=== PATIENT | male | born 1940 | race Caucasian/White ===

== ENCOUNTER 2017-08-27 03:04 | Inpatient (IN) | payer MEDICARE, OTHER ==
[~2017-08-27] VITALS: Ht 180.3 cm; Wt 75.4 kg
[~2017-08-27 03:04] MED LIST: AMLODIPINE BESYL5 MG PO; ASPIR-TRIN325 MG PO; CHLORTHALIDONE25 MG PO; FLOMAX0.4 MG PO; LIPITOR80 MG GT; LISINOPRIL40 MG PO; MELOXICAM15 MG PO; METOPROLOL TART50 MG PO; NORVASC10 MG PO; PERCOCET 7.5-31 EACH PO; PRILOSEC OTC20 MG PO; SIMVASTATIN80 MG PO
[2017-08-27] MEDS ORDERED: LISINOPRIL20 MG PO (03:48)
[2017-08-27] MEDS ORDERED: PRAVASTATIN SOD40 MG PO (03:50)
[2017-08-27] MEDS ORDERED: REGLAN10 MG PO (03:52)
[2017-08-27] MEDS ORDERED: ESCITALOPRAM OX10 MG PO (03:57)
[2017-08-27] MEDS ORDERED: ASPIR-LOW81 MG PO (04:03)
--- NOTE | 2017-08-27 05:53 | EKG ---
[facility] [address] [facility] [place], [place] [address] Signed Sinus tachycardia with frequent premature ventricular complexes ST \T\ T wave abnormality, consider lateral ischemia Abnormal ECG No previous ECGs available Confirmed by BLAIR ALFONSO MD ([id number]) on 08/27/2017 5:53:39 AM Electronically Signed By: BLAIR ALFONSO MD 08/27/17 0553 PATIENT NAME: NAN MEREDITH Electrocardiogram DATE OF : 44 PHYSICIAN: BLAIR ALFONSO MD REPORT #: [id number] REPORT IS CONFIDENTIAL AND NOT TO BE RELEASED WITHOUT AUTHORIZATION
--- NOTE | 2017-08-27 06:37 | NUR ---
Pt arrived to room 128 at 0620. PT INC STOOL. LINENS CHANGED. FAMILY AT BEDSIDE. PT AWAKENS, [place], HOWEVER LETHARGIC AND DROWSY, WEAK. DENIES PAIN. FAMILY REPORTS RECENT FALL APPROXIMATELY 2 WEEKS AGO. HAD COUGH. PT REPORTED TO HAVE FALLEN ON R RIBS. TO PROVIDE PT HISTORY. IV STARTED 20G RH, IV VANCO INFUSING IN LAC IV, NS STARTED IN RH IV AT 150ML/HR. PT PLACED ON 2L O2 FOR SPO2 AT 90%. HR 130'S ON ARRIVAL, NOW 117, TEMP 102.6 AXILLARY. PT VOIDED 100ML TO URINAL.
--- NOTE | 2017-08-27 07:10 | NUR ---
BEDSIDE REPORT RECIEVED.
--- NOTE | 2017-08-27 07:11 | NUR ---
RAZO CATHETER WITH TEMP PROBE PLACED AT 0650, LEVOPHED GTT STARTED AT 2MCG/MIN. INTO LAC. PT DOWN TO CT NOW WITH NSG STAFF.
--- NOTE | 2017-08-27 07:15 | NUR ---
TO CT VIA BED ACCOMP BY CHAO AND RN.
--- NOTE | 2017-08-27 07:30 | NUR ---
RETURN TO ROOM 128. TOL[address] CT WELL. CONT TO C/O CHILLING. RAZO TEMP PROBE-101.7. DAUGHTER AND IN ROOM.
--- NOTE | 2017-08-27 08:30 | NUR ---
INCONT OF STOOL. ATTENDS CHANGED. IS SLEEPY BUT COOPERATIVE. TEMP-102.6. REMAINS ON LEVOPHED AT 2 MCG/MIN.
--- NOTE | 2017-08-27 09:20 | NUR ---
CENTRAL LINE PERMIT SIGNED BY . DR. MENJIVAR HERE TO PLACE LINE.
--- NOTE | 2017-08-27 09:50 | NUR ---
TYLENOL 650 MG PO GIVEN FOR FEVER.
--- NOTE | 2017-08-27 10:13 | NUR ---
ASSISTED NURSE IN BOOSTING PATIENT UP IN BED USING DRAWSHEET
--- NOTE | 2017-08-27 12:34 | NUR ---
MACHINE ADJUSTER HERE TO DO US OF ABD. LEVOPHED GTT INCREASED TO 3 MCG/MIN BP-88/49.
--- NOTE | 2017-08-27 13:00 | NUR ---
US COMPLETE. IS DROWSY, DOES RESPOND APPROP. FAMILY IN ROOM.
--- NOTE | 2017-08-27 14:00 | NUR ---
SEE MONITOR PRINT OUT SHEET FOR Q 15 MIN V.S.
--- NOTE | 2017-08-27 14:15 | NUR ---
levophed GTT INCREASED TO 4MCG/MIN. BP-82/40 (50). DR. ALFONSO AWARE OF CURRENT RATE OF LEVOPHED.
[2017-08-27] MEDS ORDERED: OMEPRAZOLE MAGN20 MG PO (14:30)
--- NOTE | 2017-08-27 15:00 | NUR ---
SLEEPING. LEVOPHED GTT AT 4 MCG/MIN.
--- NOTE | 2017-08-27 17:10 | NUR ---
TYLENOL 650 MG PO GIVEN FOR FEVER, 102.8 VIA RAZO TEMP PROBE. REPOSITIONED.
--- NOTE | 2017-08-27 18:15 | NUR ---
RESTFUL. FACE HAS BEEN FLUSHED TODAY. LOWEST RAZO TEMP PROBE READING 101.6 TODAY AT 1500.
--- NOTE | 2017-08-27 19:35 | NUR ---
PT ASLEEP ON L SIDE. GRANDSON AT BEDSIDE. NO S/S OF DISTRESS.
--- NOTE | 2017-08-27 20:06 | CONS ---
[facility] [address] [place], [place] [address] Signed DATE OF CONSULTATION: 08/27/2017 CONSULTING PHYSICIAN: Saad Menjivar MD. REQUESTING PHYSICIAN: Dr. Damon. PROBLEM: Sepsis, unknown etiology, also need for central venous access. HISTORY OF PRESENT ILLNESS: This 77-year-old white man is well-known to me from the past. He had been diagnosed with early stage esophageal cancer and underwent esophagectomy with esophagogastrostomy. This was about 2 years ago or so. He has been getting along reasonably well, though he occasionally have some dysphagia when he does not chew his food well or eats too big a bite. Last night at about midnight, he had the onset of unrelenting chills. His attempted to improve his situation with blankets and so forth, but they persisted and on that basis, he was brought to the hospital. He was considered likely to have systemic sepsis on the basis of his presentation though. Etiology of his problem was not readily apparent. His chest x-ray that was performed was considered normal. Interpretation of a "probable small hiatal hernia (was related to the gastric polyps that he has had)." He was admitted to the intensive care unit by Dr. Damon. He has begun on vancomycin and cefepime antibiotics. A small dose of norepinephrine (Levophed) drip has been initiated to maintain blood pressures and central venous catheter is requested on that basis. A CT scan was performed this morning, also a chest CT. My review of the CT of the chest and abdomen showed the lungs to be normal. The anatomy of the gastric polyp to be typical. The gallbladder was interpreted as normal size that is my evaluation, it looks pathologic. Indeed, I believe I see lamination of the wall. A small amount of perihepatic and pericholecystic ascites is considered at present. 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 My review of this does show an amorphous abnormality there. 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 Bilateral nonobstructive renal stones and extensive colonic diverticulosis Electronically Signed By: SAAD MENJIVRA MD 08/27/172005 PATIENT NAME: NAN MEREDITH CONSULTATION DATE OF : 44 PHYSICIAN: SAAD MENJIVAR MD REPORT #: [id number] REPORT IS CONFIDENTIAL AND NOT TO BE RELEASED WITHOUT AUTHORIZATION [facility] [address] [place], [place] [address] Signed without definite acute diverticulitis. MEDICATIONS ON ADMISSION: Included: 1. Aspirin 81 mg a day. 2. Escitalopram 10 mg daily. 3. Lisinopril 20 mg daily. 4. Meloxicam 15 mg daily. 5. Reglan 10 mg t.i.d. 6. Pravastatin. ALLERGIES: He has no known drug allergies. SOCIAL HISTORY: He is . His and his daughter are present with him. He formally lived out in the [facility], now in [place]. REVIEW OF SYSTEMS: He denies any abdominal pain particularly. Denies any back pain. He has had no complaints of chest pain, but he does have an occasional cough. He has had some dysphagia this is according to his . PHYSICAL EXAMINATION: GENERAL: An elderly white man, who looks somewhat somnolent, though is easily arousable and answers questions appropriately. HEENT: Mucous membranes are slightly dry. Trachea is midline. CHEST: Clear. HEART: Regular, but tachycardic. ABDOMEN: Nondistended. I do not detect any focal tenderness at this time. There is no mass. There is no ascites. EXTREMITIES: Show no clubbing, cyanosis, or edema. LABORATORY DATA: Show white count of 4.2 (low hematocrit of 31.3, band forms are 16%, lymphocytes 7%). Chem profile is abnormal for lactic acid initially of 2.5, subsequently 2.1, alkaline phosphatase 126, which is elevated. Bilirubin 0.6. Other liver enzymes normal. Coag studies show an INR of 1.1. Urinalysis essentially normal with 5 RBCs per high-power field. Influenza type A, RNA is negative, type B negative as well. ASSESSMENT: He has sepsis of unknown etiology and my suspicion is this represents a gallbladder based on what I see on the CT scan. He does not have diabetes or known visceral neuropathy, but I do know him from the past and he is extremely tough individual and does not really Electronically Signed By: SAAD MENJIVAR MD 08/27/172005 PATIENT NAME: NAN MEREDITH CONSULTATION DATE OF : 44 PHYSICIAN: SAAD MENJIVAR MD REPORT #: [id number] REPORT IS CONFIDENTIAL AND NOT TO BE RELEASED WITHOUT AUTHORIZATION [address] [address] Signed complain of pain even when anybody else would. The unusual lesion on the caudate lobe of his liver is uncertain to me, but I doubt likely accounting for any septic response at this time. It certainly does not appear to be a hepatic abscess. A gallbladder ultrasound would be appropriate and I have discussed that with Dr. Damon. This is better characterized by the stones and perhaps a better characterization of the contents of the gallbladder and gallbladder wall. At this point, he is well served by antibiotic administration, which is ongoing. A central line catheter would be beneficial for blood draws and administration of pressors as needed. Discussed with the patient, his and his daughter the risks of bleeding, infection, pneumothorax, and so forth. They understand and agreed to proceed without bedside procedure also. MD CAMILO Gloria/CLAUDIAL /[id number] cc: Betty Damon MD Electronically Signed By: SAAD MENJIVAR MD 08/27/172005 PATIENT NAME: NAN MEREDITH CONSULTATION DATE OF : 44 PHYSICIAN: SAAD MENJIVAR MD REPORT #: [id number] REPORT IS CONFIDENTIAL AND NOT TO BE RELEASED WITHOUT AUTHORIZATION
--- NOTE | 2017-08-27 20:06 | OR ---
[facility] [address] [place], [place] [address] Signed DATE OF OPERATION: 08/27/2017 SURGEON: Saad Menjivar MD PREOPERATIVE DIAGNOSIS: Sepsis, unknown etiology, need for central venous catheterization. POSTOPERATIVE DIAGNOSIS: Sepsis, unknown etiology, need for central venous catheterization. PROCEDURE: Left subclavian arrow blue tip triple-lumen subclavian catheter placement. SURGEON: Saad Menjivar MD ANESTHESIA: A 1% lidocaine. INDICATION: A 77-year-old white man, manifesting with chills and systemic sepsis with an elevated lactic acid level and a low white count, but high bandemia, requested for central venous access for norepinephrine infusion. The risks of bleeding, infection, pneumothorax, and so forth were reviewed with the patient and his family. They understand and wished to proceed. FINDINGS: The left subclavian vein was easily accessed on single pass showing dark nonpulsatile blood. A catheter was placed without problem, appears to have good function. A postprocedure chest x-ray is pending. DESCRIPTION OF PROCEDURE: The patient was placed in the supine position in the intensive care unit bed in the left chest and neck prepared with a chlorhexidine solution and draped sterilely. Using standard protocol of mask, gown, glove, etc., a 1% lidocaine was injected in the left infraclavicular space. Using the Seldinger technique, the left subclavian vein was accessed showing dark nonpulsatile blood. A flexible J-wire was passed down the needle and needle was removed. The site was dilated with an 11-blade and an enclosed blue dilator, and a previously inspected and irrigated Arrow blue tip triple-lumen catheter passed over the wire without problem. The wire was removed. Aspiration on the distal Electronically Signed By: SAAD MENJIVAR MD 08/27/172005 PATIENT NAME: NAN MEREDITH OPERATIVE REPORT DATE OF : 44 PHYSICIAN: SAAD MENJIVAR MD REPORT #: [id number] REPORT IS CONFIDENTIAL AND NOT TO BE RELEASED WITHOUT AUTHORIZATION [facility] [address] [place], [place] [address] Signed port showed dark nonpulsatile blood. The catheter was flushed appropriately and secured to the skin with enclosed suture and collar device and anti-infective disk was applied as well. A SorbaView dressing was applied. A postprocedure chest x-ray is pending. BLOOD LOSS: Minimal. MD CAMILO Gloria/MODL /[id number] cc: Betty Damon MD Electronically Signed By: SAAD MENJIVAR MD 08/27/172005 PATIENT NAME: NAN MEREDITH OPERATIVE REPORT DATE OF : 44 PHYSICIAN: SAAD MENJIVAR MD REPORT #: [id number] REPORT IS CONFIDENTIAL AND NOT TO BE RELEASED WITHOUT AUTHORIZATION
--- NOTE | 2017-08-27 20:40 | NUR ---
REPORT RECEIVED FROM SARAH FRANCIS AT 1915. PT ASLEEP AT THAT TIME. LEVOPHED INFUSING INTO CENTRAL LINE AT 4MCG/MIN. CENTRAL LINE CDI. PT SWEATY, TEMP PER RAZO PROBE DECREASING. CURRENTLY 100.7. PT DENIES PAIN, NEEDS. ORAL CARE COMPLETED, PT COUGHING OCCASIONALLY WITH MIN YELLOW THICK PHLEGM. FAMILY AT BEDSIDE. PT NOTED TO HAVE HEART MURMUR, DR ALFONSO AWARE.
--- NOTE | 2017-08-27 21:04 | NUR ---
SPUTUM COLLECTED AND SENT TO LAB.
--- NOTE | 2017-08-27 21:15 | NUR ---
02 DECREASED TO 3L NC FOR SPO2 100% ON 4L
--- NOTE | 2017-08-27 22:20 | NUR ---
PT LINENS CHANGED, WET WITH SWEAT. SMEAR BM IN ATTENDS, PERICARE/RAZO CARE DONE. LEVOPHED GTT DECREASED TO 2MCG/MIN.
--- NOTE | 2017-08-27 22:25 | NUR ---
PT MOUTH BREATHING, O2 INCREASED TO 4L NC FOR SPO2 90%.
--- NOTE | 2017-08-27 23:09 | NUR ---
DECREASED LEVOPHED GTT TO 2MCG/MIN.
--- NOTE | 2017-08-28 04:09 | NUR ---
LEVOPHED GTT STOPPED AT 2345, 4ML DISCARDED PRIOR TO FLUSH TO CENTRAL LINE. PT GIVEN 650MG TYLENOL PO AT 0050 FOR INCREASING TEMP PER RAZO TEMP PROBE. PT MOUTH BREATHING ON AND OFF WITH SPO2 DECREASING TO 81%. PLACED ON OXYMASK 6L, RT IN TO ASSESS. SPO2 UP TO 96% ON 6L. PT INC SMALL SOFT BROWN STOOL ATTENDS CHANGED, PERICARE PROVIDED. PT DROWSY. ENCOURAGED TO COUGH TO CLEAR LUNGS.
--- NOTE | 2017-08-28 06:04 | NUR ---
PT REQUESTED OXYMASK OFF PLACED ON NC 5L O2. DECREASED TO 4L. LABS DRAWN FROM CENTRAL LINE, 5ML WASTED.
--- NOTE | 2017-08-28 08:50 | NUR ---
UP TO COMMODE WITH ASSIST. IS WITH INCREASED SHORTNESS OF BREATH. HR FROM 90 TO 110. DENIES DIZZINESS. HAD LG SOFT STOOL. BACK TO BED.
--- NOTE | 2017-08-28 09:00 | NUR ---
VERY SHORT OF BREATH. HR 140. CHILLING. O2 SAT DOWN TO 77. OXYMASK AT [address] ALFONSO AND RESP THERAPY NOTIFIED. LUNGS WITH INCREASED CRACKLES. BP-160/100.
--- NOTE | 2017-08-28 09:20 | NUR ---
BIPAP APPLIED. 15/8 AT 50%. ZOFRAN 4 MG IV GIVEN. TYLENOL 650 MG PO GIVEN PRIOR TO MASK BEING APPLIED. HOB ELEVATED. FAMILY IN ROOM. ROUTINE MEDS GIVEN WELL. IV TO OFF UNTIL DR HIDALGO ARRIVES.
--- NOTE | 2017-08-28 09:45 | NUR ---
DR. ALFONSO UPDATED ON PATIENT. ORDERS RECIEVED TO GIVE LASIX 20 MG IV AND MORPHINE 1 MG IV. THIS DONE.
--- NOTE | 2017-08-28 09:50 | NUR ---
DR. ALFONSO HERE TO SEE PATIENT AND TALK WITH FAMILY. CXR ORDERED.
--- NOTE | 2017-08-28 10:00 | NUR ---
CXR DONE. BIPAP OFF. O2 VIA NC AT 6 L APPLIED. NO LONGER CHILLING. TEMP-101.7. MORE RELAXED AFTER MORPHINE GIVEN.
--- NOTE | 2017-08-28 12:45 | NUR ---
DR. MENJIVAR HERE TO SEE PATIENT AND TALK WITH FAMILY. ORDERS RECIEVED.
--- NOTE | 2017-08-28 13:00 | NUR ---
LABS DRAWEN FROM CENTRAL LINE AND SENT TO LAB. PATIENT IS SLEEPY. FAMILY REMAIN IN ROOM.
--- NOTE | 2017-08-28 13:15 | NUR ---
US OF ABD BEING DONE AT BEDSIDE.
--- NOTE | 2017-08-28 13:51 | NUR ---
AWAKE. ORAL CARE GIVEN.
--- NOTE | 2017-08-28 15:30 | NUR ---
SLEEPING ON RIGHT SIDE.
--- NOTE | 2017-08-28 15:40 | NUR ---
DR. CROWE UPDATED ON BP AND U/O. ORDERS RECIEVED TO RESTART LEVOPHED AT 2 MCG/MIN.
--- NOTE | 2017-08-28 15:45 | NUR ---
LEVOPHED GTT HUNG PER ORDERS.
--- NOTE | 2017-08-28 17:00 | NUR ---
LR BOLUS OF 250 OVER 1/2 HR HUNG PER ORDERS.
--- NOTE | 2017-08-28 17:54 | NUR ---
DR. CROWE AWARE OF MOST RECENT CVP-10 AFTER 250 ML BOLUS. GOAL CVP-8, U/O-40, MAP-65, THIS PER DR. CROWE. PATIENT IS SLEEPING.
--- NOTE | 2017-08-28 19:08 | NUR ---
DR. CROWE AWARE OF U/O-25 ML. NO FUTHER ORDERS AT THIS TIME.
--- NOTE | 2017-08-28 19:10 | NUR ---
REPORT TO NEST SHIFT. PATIENT REMAINS ASLEEP ON RIGHT SIDE.
--- NOTE | 2017-08-28 23:38 | NUR ---
REPORT RECEIVED FROM SARAH RN AT 1900. IN TO ASSESS PT AT 194. PT ASLEEP ON R SIDE. U/O AT [address] CROWE CALLED. 250ML LR BOLUS STARTED AT 2014. PT TEMP NOTED TO BE INCREASING TO 100.1. AFTER 169ML INFUSED, PT NOTED THE HAVE HR INCREASING TO 121. RR 30-40, SP02 89 ON 4L NC. PLACED ON OXYMASK 6L, INCREASED TO 10L. CVP 17-18 AFTER RECALIBRATION. BP 153/84 AT 2014. PT LUNGS DIMINISHED WITH MILD COARSENESS. DR CROWE IN TO SEE PT AT 2034. PT CONTINUED TO HAVE INCREASED O2 REQUIREMENTS WITH TEMP INCREASING. HR UP TO 140'S-150'S. PLACED ON CPAP AT 2046. PT WITH RIGORS, MOTTLING. BP INCREASING ADDITIONALLY. 650MG TYLENOL GIVEN AT 2099 FOR TEMP 100.7 PER RAZO TEMP PROBE. RAPID COOLING BLANKET PLACED ON PT AT 2149 SET TO AUTO COOL VIA RAZO TEMP PROBE. PT TEMP 102.7. ICE PACKS TO ARMPITS AND NECK. TEMP INCREASED TO 104.2, NOTED AT 2244. PT GIVEN ADDITIONAL 325MG TYLENOL PO AT 2244, AND 200MG IBUPROFEN AT SAME TIME. ABG DRAWN AT 2102, RT AND DR CROWE REMAINED AT PT BEDSIDE. AT 2205 PT GIVEN 5MG LOPRESSOR FOR HR 156, MANUAL BP 160/80. EKG COMPLETED AT 2144. BLOOD CULTURES DRAWN FROM BLUE PORT, CENTRAL LINE AND PERIPHERAL BY LAB. CVP AT 2330 14-15 TEMP 103.6 AT 2306. PT IN LESS DISTRESS CURRENTLY. ON NRB MASK AT 15L OF 2214. REPORTS FEELING BETTER, VS IMPROVING.
--- NOTE | 2017-08-29 00:39 | NUR ---
PT ASLEEP AND RESTING ON R SIDE. CPAP PLACED AT 2300, FIO2 TITRATED TO 40% CURRENTLY. SPO2 99%. TEMP 100.3 PER RAZO TEMP PROBE, COOLING BLANKET REMOVED AT 0007 FOR TEMP 100.9, ICE PACKS REMOVED. LEVOPHED RESTARTED VIA CENTRAL LINE AT 2MCG/MIN FOR BP 75/58, INCREASED TO 4MCG/MIN AT 0015. CVP 15 CURRENTLY.
--- NOTE | 2017-08-29 01:07 | NUR ---
INCREASED LEVOPHED GTT TO 6MCG/MIN.
--- NOTE | 2017-08-29 03:21 | NUR ---
DR CROWE CALLED AT 0217 TO UPDATE RE: PT U/O, VS. 500ML LR BOLUS STARTED WITH MAINTENANCE FLUID TO INFUSING FOLLOWING AT 75ML/HR. U/O AT 0300 10ML AND 2ND 500ML BOLUS STARTED PER ORDER.
--- NOTE | 2017-08-29 05:05 | NUR ---
DR CROWE CALLED AT 0435 TO UPDATE RE PT U/O VS. 25% 100ML ALBUMIN STARTED IV PER ORDER, IVF INCREASED TO 125ML/HR
--- NOTE | 2017-08-29 06:44 | NUR ---
0615: RE-ZEROED CVP SINCE PT OFF CPAP. CVP 8 ON 5L NC. TITRATED LEVOPHED GTT DOWN TO 4MCG/MIN.
--- NOTE | 2017-08-29 06:50 | NUR ---
DR CROWE IN TO SEE PT AT 7235.
--- NOTE | 2017-08-29 07:30 | NUR ---
REPORT RECIEVED. PATIENT IS AWAKE. DENEIS PAIN. LINEN AND GOWN CHANGED. REPOSITIONED. PATIENT STATES HE FEELS BETTER AT THIS MORMING.
--- NOTE | 2017-08-29 08:11 | NUR ---
PORT CXR DONE. URINE COLLECTED AND SENT TO LAB.
--- NOTE | 2017-08-29 09:00 | NUR ---
ECHO AT BEDSIDE. DR. CROWE AWARE OF U/O. AND CURRENT TEMP,BP. NO FUTHER ORDERS.
--- NOTE | 2017-08-29 10:00 | NUR ---
DR. MENJIVAR HERE TO SEE PATIENT AND TALK WITH FAMILY ABOUT GONG O OR THIS AFTERNOON TO HAVE GALLBLADDER OUT. PATIENT AND FAMILY UNDERSTANDING.
--- NOTE | 2017-08-29 10:20 | NUR ---
LR BOLUS 500 ML HUNG.
--- NOTE | 2017-08-29 11:20 | NUR ---
LR BOLUS COMPLETE.
--- NOTE | 2017-08-29 13:16 | NUR ---
PT IN BED, FALLING IN AND OUT OF SLEEP. AND OTHER FAMILY MEMBERS PRESENT. HE DID OCCASIONALLY COME TO, SAID CONY, SHOOK MY HAND AND WOULD FALL BACK ASLEEP. GOOD VISIT WITH FAMILY, WILL CONTINUE TO FOLLOW. EXTENDED A BLESSING TO THEM
--- NOTE | 2017-08-29 15:10 | NUR ---
clorahexadine bath completed. TOLERATED WELL
--- NOTE | 2017-08-29 15:11 | NUR ---
AWATING SURGERY. MANY FAMILY MEMBERS IN ROOM. PATIENT IS RESTFUL AND W/O C/O.
--- NOTE | 2017-08-29 15:34 | NUR ---
500 ML NS REPEATED OVER 1/[address] MENJIVAR.
--- NOTE | 2017-08-29 16:00 | NUR ---
TO OR VIA BED.
--- NOTE | 2017-08-29 16:55 | EKG ---
[facility] [address] [facility] [place] [address] Signed Supraventricular tachycardia Septal infarct , age undetermined Abnormal ECG When compared with ECG of 27-AUG-2017 03:17, Current undetermined rhythm precludes rhythm comparison, needs review Septal infarct is now present T wave inversion now evident in Inferior leads T wave inversion no longer evident in Anterolateral leads Confirmed by BLANCA CROWE MD ([id number]) on 08/29/2017 4:55:03 PM Electronically Signed By: BLANCA CROWE MD 08/29/17 1655 PATIENT NAME: NAN MEREDITH Electrocardiogram DATE OF : 44 PHYSICIAN: BLANCA CROWE MD REPORT #: [id number] REPORT IS CONFIDENTIAL AND NOT TO BE RELEASED WITHOUT AUTHORIZATION
--- NOTE | 2017-08-29 18:02 | NUR ---
08/29/171801 Marsha Crowley 1747: PT ARRIVES TO CCU ROOM 128 WITH ORAL AIRWAY IN PLACE, HE IS NOT RESPONSIVE TO VERBAL OR PHYSICAL STIMULI.
--- NOTE | 2017-08-29 18:30 | NUR ---
return to ccu S/P LAP CHOLEY. MARLYS INTACT. LAP SITE STERI STRIP ON SM AMOUNT OF DRAINAGE NOTED AT UMBILICUS SITE. WILL WAKE FOR SHORT TIME THEN BACK TO SLEEP. OXYMASK AT 12 L ON. DECREASED TO 6 L. IVF D5 LR AT 75 ML/HR INFUSING. CVP ZEROED IN PACU. CVP READING=10. LEVOPHED GTT DECREASED TO 1 MCG/MIN.
--- NOTE | 2017-08-29 19:03 | NUR ---
REPORT TO COMIC ILLUSTRATOR. PATIENT SLEEPING. NO CHANGES. DAUGHTER IS IN ROOM.
--- NOTE | 2017-08-29 20:09 | NUR ---
REPORT RECIEVED FROM SARAH FRANICS AT 1915. IN TO ASSESS PT AT 1945. OFFERED PT SIPS OF JUICE, PT DENIES NAUSEA. PT DENIES PAIN. MORE INTERACTIVE, REQUESTED TO WATCH TELEVISION. LEVOPHED GTT STOPPED FOR BP 130'S SYSTOLIC. DAUGHTER AT BEDSIDE. PLACED PT ON 4L O2 NC. INCISION ON ABD WITH S/S X3, SCANT RED DRAINAGE ON UMBILICAL SITE. REINFORCED WITH 4X4 GAUZE AND PAPER TAPE. NO BOWEL TONES NOTED. CENTRAL LINE CDI. BP CUFF PLACED ON RA.
--- NOTE | 2017-08-29 21:12 | NUR ---
O2 DECREASED TO 3L PER NC. SPO2 98% ON 3L.
--- NOTE | 2017-08-29 23:11 | NUR ---
PT RESTLESS, WHEN ASKED IF IN PAIN STATED, 'IT'S A BIT SORE, TO BE EXPECTED'. AGREED TO TAKE PAIN MEDICINE FOR ABD PAIN 01/26. 1 NORCO GIVEN PO WITH JELLO. PT DENIES NAUSEA. EMPTIED MARLYS FOR 100ML SERO-SANGINEOUS DRAINAGE. SERO-SANGINEOUS DRAINAGE NOTED ON MARLYS DRESSING WITH SHADOWING. O2 DECREASED TO 2L PER NC.
--- NOTE | 2017-08-30 00:37 | NUR ---
CHANGED MARLYS DRESSING PER DR MENJIVAR. PLACED 2 DRAIN SPONGE DRESSINGS, COVERED WITH 4X4 GAUZE AND ABD DRESSING. PAPER TAPE USED PER PT REQUEST. PT DENIES NEEDS.
--- NOTE | 2017-08-30 02:49 | NUR ---
PT ASLEEP. NO S/S OF DISTRESS.
--- NOTE | 2017-08-30 04:01 | NUR ---
TITRATED 02 OFF FOR SPO2 98% ON 2L.
--- NOTE | 2017-08-30 04:59 | NUR ---
PT TURNED TO L SIDE WITH ASSISTANCE. DENIES NEED FOR PAIN MEDICATION.
--- NOTE | 2017-08-30 06:43 | NUR ---
PT LABS DRAWN FROM CENTRAL LINE AT 0600. 4ML WASTED. PT C/O OF ABD PAIN 12/27. 2 NORCO GIVEN PO. SPO2 85% ON RA. ENCOURAGED PT TO COUGH AND DEEP BREATH. SPO2 INCREASED TO 88%. PLACED ON O2 3L NC. SPO2 92-93%. DRESSING ON RLQ OF ABD NOTED TO BE WITH SEROUS DRAINAGE. MARLYS EMPTIED - 70ML SEROUS DRAINAGED AND STRIPPED TUBING. PT WATCHING TELEVISION.
--- NOTE | 2017-08-30 07:20 | NUR ---
BEDSIDE REPORT RECIEVED.
--- NOTE | 2017-08-30 08:00 | NUR ---
ASSESSMENT DONE. TALKED WITH PATIENT ABOUT PLAN OF CARE FOR DAY, IS UNDERSTANDING. DAUGHTER IN ROOM. DR. RCOWE HERE TO SEE PATIENT AND TALK WITH DAUGHTER.
--- NOTE | 2017-08-30 09:00 | NUR ---
MARLYS DRESSING CHANGED.
--- NOTE | 2017-08-30 09:31 | OR ---
[facility] [address], [place] [address] Signed DATE OF OPERATION: 08/29/2017 SURGEON: Saad Menjivar MD PREOPERATIVE DIAGNOSES: 1. Systemic sepsis with subacute renal failure. Blood cultures positive for gram-negative rods. 2. History of esophageal carcinoma, status post resection and gastric pull-up. 3. Significant gallbladder edema suggestive of acalculous cholecystitis. POSTOPERATIVE DIAGNOSES: 1. Systemic sepsis with subacute renal failure. Blood cultures positive for gram-negative rods. 2. History of esophageal carcinoma, status post resection and gastric pull-up. 3. Significant gallbladder edema suggestive of acalculous cholecystitis. PROCEDURES: 1. Laparoscopic cholecystectomy with intraoperative cholangiogram; prolonged, complicated, and difficult. 2. Surgeon-directed fluoroscopy. 3. Placement of drain. ANESTHESIA: General endotracheal, Saad Henry CRNA, and local 10 mL of 0.25% Marcaine with epinephrine. INDICATION: This 77-year-old white man was admitted to the hospital on 08/27/2017 with sepsis including elevated lactic acid level, presenting primarily as chills. The patient has undergone esophageal resection with gastric pull-up in the past for esophageal carcinoma. A CT scan was performed at the time of admission, which showed edema of the gallbladder wall and some pericholecystic fluid. The stomach had been pulled up, appeared normal. There was no sign of free air. There were diverticula, but no signs of diverticulitis or peridiverticular fluid collection. I was consulted initially to place central line for pressor agents that were needed and additionally for further assessment regarding his septic state. His examination at that time showed only mild epigastric and subcostal tenderness, but absolutely no complaint, but the patient had pain particularly. Electronically Signed By: SAAD MENJIVAR MD 08/30/17 0931 PATIENT NAME: NAN MEREDITH OPERATIVE REPORT DATE OF : 44 PHYSICIAN: SAAD MENJIVAR MD REPORT #: [id number] REPORT IS CONFIDENTIAL AND NOT TO BE RELEASED WITHOUT AUTHORIZATION [facility] [address], [place] [address] Signed I have known the patient for a number of years and know him to be impressively stoic about discomfort and so forth and his history is somewhat unreliable as regard to pathologic processes. He was given broad-spectrum antibiotics and monitored more closely. A gallbladder ultrasound was performed, which showed edema of the bowel wall. No sign of stones, but a fair amount of pericholecystic fluid. With antibiotic therapy, he has not particularly improved, indeed has worsened somewhat. A repeat ultrasound performed, which was unchanged. He was noted to have a white count as high as 26,000 and a temperature as high as 104. He shows no sign of infiltrate of the lungs. No other intraabdominal or extra-abdominal abnormality. It is my contention that the problems related to cholecystitis (acalculous) and I have recommended cholecystectomy. Dr. Garza has concurred with this at this point and plans were made at this time for cholecystectomy. The patient goes to the operating room on a low-grade norepinephrine drip with relative oliguria and with mild right subcostal tenderness. He and his understand the risks of operation to include cholecystectomy, which is not limited to bleeding, infection, bile duct injury, need for open procedure, and of course failure of diagnosis or misdiagnosis. Understand this, they wished to proceed. FINDINGS: There was some ascites within the abdomen. There was no sign of carcinomatosis. There was bile staining of the fluid to a degree. There was no sign of purulent fluid collection. It is recalled that his CT scan had shown an abnormal caudate lobe of the liver with possible lesion as well as some question of well-formed thrombus on portion of the intrahepatic cava. No such finding was noted on laparoscopic evaluation, though admittedly the caudate lobe was not visualized truly due to the gastric pull-up. The stomach itself appeared completely viable as no sign of perforated stomach remnant. There was a considerable amount of edema and thickening of the pericholecystic area. The gallbladder once excised did show chronic inflammatory changes of the mucosa, but there was no sign of gangrenous cholecystitis. Cholangiogram was normal. Examination of the left lower quadrant showed diverticula, but no sign of particular phlegmon or peridiverticular abscess. Digital examination through the umbilical incision showed the sigmoid to be reasonably soft without sign of fixation nor dense mass or anything of that sort. There were adhesions of omentum to the lower abdomen. He has undergone appendectomy in the distant past. There was no sign of abnormalities to bowel loops, otherwise no bowel obstruction or bowel ischemia. DESCRIPTION OF PROCEDURE: The patient was brought to the operating room, given a general endotracheal anesthetic. Electronically Signed By: SAAD MENJIVAR MD 08/30/17 0931 PATIENT NAME: NAN MEREDITH OPERATIVE REPORT DATE OF : 44 PHYSICIAN: SAAD MENJIVAR MD REPORT #: [id number] REPORT IS CONFIDENTIAL AND NOT TO BE RELEASED WITHOUT AUTHORIZATION [address] [address] Signed Preoperative antibiotic regimen was underway already. Sequential compression device stockings were in place and heparin subcutaneously administered previously as well. A Joyner catheter was positioned and the abdomen clipped and prepared with chlorhexidine solution. An upper abdominal transverse incision was noted from esophagectomy. An infraumbilical incision was made and using an open Heidi cannula technique, pneumoperitoneum was achieved at level 14 mmHg of carbon dioxide gas. Intraabdominal inspection immediately showed some ascites over the liver and in the pericholecystic area. There was slight bile tinge to it. It was not frankly purulent. The gallbladder itself did not look ischemic in any way. The liver was reasonably normal for age. Examination of the lower abdomen showed some diverticular changes of the sigmoid, but no sign of actual phlegmon or abscess or anything of that sort. Omental adhesions precluded much evaluation of the lower abdomen, otherwise. The small bowel loops that were seen appeared to be normal. Three additional trocars were placed in the usual configuration in the subxiphoid, right midclavicular, and right anterior axillary line. Gallbladder was elevated cephalad and omental adhesions were taken down. In the distal half of the gallbladder, some greenish staining of the peritoneum and so forth was noted consistent with cholecystitis. Further takedown of the omental adhesions showed increasing edema in the region of the neck of the gallbladder. This additionally of course was in the area where the gastric pull-up was. The gastric tube remnant and duodenal remnant appeared normal. I saw no evidence of perforation or ulcer or anything of that sort. Using blunt electrocautery dissection, the very edematous peritoneum over the gallbladder was taken down, ultimately identifying well the infundibulum of the gallbladder and the cystic duct. Cystic arterial branches were clipped and divided and a clip was applied across gallbladder cystic duct junction and transverse choledochotomy made in the cystic duct. Retrograde milking of the cystic duct showed relatively clear bile and was somewhat thickened. Using an Toth-type cholangiocatheter, intraoperative cholangiography was undertaken showing free flow of contrast in biliary tree with prompt emptying into the duodenum. There was no sign of bile leak, filling defect, neoplasm, or other problem. The catheter was removed and the cystic duct was triply clipped and divided, and the gallbladder was dissected free in a retrograde fashion using electrocautery. Gallbladder was extracted through the infraumbilical port site without problem, opened on the back table and found to have chronic inflammatory change of the mucosa, but no sign of gangrene or anything of that sort. Inspection in the subhepatic space showed no sign of bile leak, bleeding, or other problems. Careful manipulation of the gastric tube remnant used in the pull-up showed no sign of bile staining, no sign of perforation, abscess, or ischemic segment. Additional laparoscopic evaluation of the left lateral segment of the left lobe of the liver was undertaken. The upper abdomen now was normal. Reorientation of the camera allowed for visualization of the sigmoid, which showed diverticular changes. No sign of phlegmon, abscess, or other problems. The trocars were then removed under direct visualization after placement of a 7 mm flat Yunier drain in the subhepatic space, brought out through Electronically Signed By: SAAD MENJIVAR MD 08/30/17 0931 PATIENT NAME: NAN MEREDITH OPERATIVE REPORT DATE OF : 44 PHYSICIAN: SAAD MENJIVAR MD REPORT #: [id number] REPORT IS CONFIDENTIAL AND NOT TO BE RELEASED WITHOUT AUTHORIZATION [facility] [address] [place] [id number] Signed right-sided trocar site and subsequently secured with a 2-0 nylon suture. Once the trocars were removed, the infraumbilical fascial incision was reapproximated with interrupted 0 Vicryl suture. All wounds were copiously irrigated with saline solution and 10 mL of 0.25% Marcaine with epinephrine was injected locally. Skin was closed with interrupted 3-0 Vicryl. Steri-Strips were applied. The patient was ultimately extubated and transferred to recovery room in good condition, having suffered no complications. Sponge, needle, and instrument counts were reported as correct x3. MD CAMILO Gloria/CLAUDIAL /[id number] cc: Vijay Ireland MD [facility] CenterMD Betty hGosh MD Electronically Signed By: SAAD MENJIVAR MD 08/30/17 0931 PATIENT NAME: NAN MEREDITH OPERATIVE REPORT DATE OF : 44 PHYSICIAN: SAAD MENJIVAR MD REPORT #: [id number] REPORT IS CONFIDENTIAL AND NOT TO BE RELEASED WITHOUT AUTHORIZATION
--- NOTE | 2017-08-30 10:00 | NUR ---
AM CARES GIVEN. TOLERATED WELL. TRANSFERRED TO CHAIR WITH ASSIST. MOVING WELL. LASIX GIVEN EARLIER. PATIENT DENIES SHORTNESS OF BREATH. DENIES NEED FOR PAIN MEDICATION. ENC DEEP BREATHING.
--- NOTE | 2017-08-30 10:50 | NUR ---
us here FOR FUTHER LOOK AT LIVER HEMATOMA. REMAINS IN CHAIR.
--- NOTE | 2017-08-30 11:10 | NUR ---
BACK TO BED WITH ASSIST.
--- NOTE | 2017-08-30 12:49 | NUR ---
PT SITTING IN CHAIR, SEEMED TO BE OCCUPIED WITH A GAME HE WAS INVOLVED IN. WAS PRESENT, SHE WAS SHOWING SIGNS OF BEING TIRED, BUT STILL TRIED TO MAINTAIN HER SENSE OF HUMOR. WILL FOLLOW NEEDED
[2017-08-30] MEDS ORDERED: OMEPRAZOLE40 MG PO (13:38)
--- NOTE | 2017-08-30 13:40 | NUR ---
MED REC COMPLETE WITH SAFEWAY REFILL HISTORY
--- NOTE | 2017-08-30 15:00 | NUR ---
PHYS THERAPY HERE TO WORK WITH PATIENT. IS WITH INCREASED SHORTNESS OF BREATH WITH EXERTION. O2 INCREASED TO 4L NC SHYAM PHYS THERAPY.
--- NOTE | 2017-08-30 15:30 | NUR ---
MARLYS DRESSING REDRESSED.
--- NOTE | 2017-08-30 16:00 | NUR ---
NORCO 2 GIVEN FOR PAIN.
--- NOTE | 2017-08-30 17:13 | NUR ---
SLEEPING, NO DISTRES NOTED.
--- NOTE | 2017-08-30 18:00 | NUR ---
WHEN TAKING CLEAR LIQUID DIET, IS COUGHING AFTER SWALLOWING. HOB IS ELEVATED.
--- NOTE | 2017-08-30 19:22 | NUR ---
DR. CROWE AND DR. MENJIVAR AWARE OF COUGHING EPISODES WHEN TAKING CLEAR LIQUIDS. ORDERS RECIEVED.
--- NOTE | 2017-08-30 19:23 | NUR ---
REPORT TO NEXT SHIFT.
--- NOTE | 2017-08-30 19:30 | NUR ---
REPORT RECIEVED FROM DAY SHIFT. PT SITTING UP IN BED DOZING.
--- NOTE | 2017-08-30 20:10 | NUR ---
IN TO ASSESS PT, PT NOW ASLEEP. IS HARD OF HEARING SO DIFFICULT TO AWAKEN AT FIRST. WAS ABLE TO AWAKEN PT AND HAVE HIM COUGH AND DEEP BREATH. HAD SOME RHONCHI AND WHEEZES THAT CLEARED WITH COUGHING. ASSISTED PT TO REPOSITION. DAUGHTER IN ROOM.
--- NOTE | 2017-08-30 21:18 | NUR ---
PT'S HEARING AID SQUEALING, WHEN TRYING TO HELP PT WITH REMOVAL HE KEPT TAKING 02 OFF THEN REPEATED THAT THEY THEY NEEDED TO OPEN THEM UP. PT REASURED BY DAUGHTER. THEN HE WAS ABLE TO SETTLE AND GO BACK TO SLEEP. DENTURES WERE ALSO TAKEN OUT AND CATH CARE DONE. DAUGHTER EXPRESSED CONCERN ABOUT PT BEING CONFUSED. TALKED ABOUT POSS MED CAUSED AND ALSO SLEEP DEPRIVATION. INFORMED DAUGHTER THAT PT'S FREQ MORE CONFUSED AT NIGHT. WILL TRY FOR MAX SLEEP TONIGHT.
--- NOTE | 2017-08-30 22:00 | NUR ---
TRYING TO SLEEP, WILL OCC TAKE 02 OFF IN SLEEP. REPLACED.
--- NOTE | 2017-08-31 00:09 | NUR ---
SLEEPING WELL, ASSESSMENT DONE WHILE PT ASLEEP. PT ABLE TO REPOSITION SELF.
--- NOTE | 2017-08-31 02:15 | NUR ---
CONTS TO SLEEP SOUNDLY THOUGH WILL OCC OPEN EYES WHEN 02 IS REPLACED TAKES 02 OFF OCC IN SLEEP. PT HAD BEEN SLEEPING PAST 2 HRS ON RT SIDE. PILLOW THAT HE HAD CURLED AROUND WAS WET WITH SEROUS FLUID FROM MARLYS. ABD SATURATED,CHANGED. PT ON BACK AND IS BACK TO SLEEP. URINE OUTPUT IMPROVED.
--- NOTE | 2017-08-31 03:05 | NUR ---
AWAKE BRIEFLY, DAUGHTER TALKING WITH PT. HAD CHANGED ABD FOR SEROUS DRAINAGE FROM MARLYS. BREATH TONES COARSE AND HAS MOIST COUGH. BACK TO SLEEP AFTER PILLOW ADJUSTED.
--- NOTE | 2017-08-31 05:43 | NUR ---
LAB DRAWN ONE SET OF BLOOD CULTURES DRAWN PER CENTRAL LINE. MARLYS DRSG CHANGED SATURATED WITH SEROUS FLUID. GOWN CHANGED. PT AWAKENS BUT FALLS BACK TO SLEEP QUICKLY.
--- NOTE | 2017-08-31 06:56 | NUR ---
IS AWAKE THIS AM, WATCHING TV. REGLAN GIVEN. PT HAS SOME DARK REDDENED ALMOST BLOODY SPOTS IN MOUTH AND ON TONGUE.
--- NOTE | 2017-08-31 07:07 | NUR ---
REPORT TO DAY SHIFT.
--- NOTE | 2017-08-31 07:45 | NUR ---
patient sitting with hob elevated in bed. zak ( daughter) in room assisting with cares. patients lungs sounds coarse throughout. patient coughing a non productive cough stating he feels like he has sputum in throat and cannot cough out. sating 93 percent on 3 l per nc. patient has regular heart rate. bs hypoactive. patient reports not passing flatus at this time. scds are on. minimal edema to lower legs. serenity color urine emptied out of garcia. roddy present to r lower abd. serous drainage emptied from roddy site. last night reinforced with abd pad at roddy site.
--- NOTE | 2017-08-31 08:05 | NUR ---
patient was able to cough getting up brownish color sputum out. patient has open sores on the back of mouth and throat. patient stating this was a new thing for him. upper dentures were removed.
--- NOTE | 2017-08-31 08:42 | NUR ---
ASSISTED PATIENT TO THE CHAIR. ON FIRST ATTEMPTED PATIENT STATING HE WAS " A LITTLE LIGHT HEADED". SAT PATIENT BACK ON BED. ATTEMPTED AGAIN AFTER A FEW MINUTES. PATIENT TOLERATED MOVEMENT TO CHAIR. SPEECH THERAPY IN ROOM TO DO SWALLOW EVAL.
--- NOTE | 2017-08-31 09:51 | NUR ---
ROUNDED WITH DR. CROWE IN ROOM. PLAN TO ADVANCE DIET TO SOFT. UPDATED FAMILY AND PATIENT ON PLAN OF CARE. NEW MEDICATION ORDERS. GIVEN LASIX AND PO POTASSIUM.
--- NOTE | 2017-08-31 10:00 | NUR ---
PATIENT AGREED TO TAKE 1 TAB OR NORCO. PATIENT EDUCATED ABOUT PAIN. RATING PAIN AT A 2/10.
--- NOTE | 2017-08-31 10:45 | NUR ---
PATIENT ASSISTED TO THE BR. AMBULATED WITH A ONE ASSIST AND WALKER TO BR. PATIENT TOLERATED ACTIVITY WELL. ASSISTED BACK TO BED. MARLYS AND RAZO CATH DRAINED.
--- NOTE | 2017-08-31 11:05 | NUR ---
care conference meeting in room. sukh from pharmacy, martin from pt, rogerio and mukul from discharge planning, and doctor garibay in room. updated patient and family on plan of care and moving to med surg floor.
--- NOTE | 2017-08-31 11:25 | NUR ---
patient stating he feels like he needs to void. assisted to bsc. patient able to void 300mls. assisted back to bed.
--- NOTE | 2017-08-31 12:15 | NUR ---
PATIENT ASKING TO STAND TO VOID. TONYA RN IN ROOM TO ASSIST PATIENT TO STAND AND VOID. PATIENT ABLE TO VOID 150MLS OF URINE. PATIENT ASKED TO STAND ON SCALE. WITH ACTIVITY PATIENTS WORK OF BREATHING INCREASED, HE BECAME DYAPHORETIC, AND PALE. MONITORS REATTACHED AND VITALS TAKEN. BP ON MONITOR 201/115 ( 134) CONFIRMED BP WITH MANUAL BP OF 190/100. PATIENT STARTING TO HAVE AN INCREASE OF WHEEZING THROUGHOUT LUNGS. NOTIFIED DR. CROWE. UPDATED DR. MENJIVAR ON THE FLOOR. NEW ORDER FOR ALBUTEROL NEB GIVEN. CALLED RT TO COME EVALUATE PATIENT AND GIVEN NEB.
--- NOTE | 2017-08-31 12:19 | NUR ---
DR. CROWE IN ROOM. BP 195/99 (123) HR 136. PATIENT CONTINUES WITH INCREASE WORK OF BREATHING. DIAPHORETIC. RT IN ROOM.STARTING NEB. DR. CROWE IN ROOM TO EVALUATE PATIENT. NEW ORDER FOR EKG. CONT TO MONITOR BP Q5 MINUTES. VERBAL ORDER FOR LOPRESSOR AND SCHEDULED LASIX. MEDICATION GIVEN. NEW ORDER FOR RAZO CATH. BP RESPONDING TO LOPRESSOR THAT WAS GIVEN. CONTINUE TO BE ELEVATED. SEE MONITOR BP SHEET IN CHART.
--- NOTE | 2017-08-31 12:30 | NUR ---
PATIENT HAD EKG COMPLETED BY RT. PLACED ON BIPAP. PATIENT TOLERATING WELL. SATING 100 PERCENT. BP 174/118 CONTINUE TO MONITOR. PATIENT HR 110. FAMILY AT BEDSIDE.
--- NOTE | 2017-08-31 12:30 | NUR ---
PATIENT STATING THAT HE NEEDED TO VOID. ASSISTED TO THE BEDSIDE. WHILE PATEINT WAS UP TO VOID ASSISTED TO THE STANDING SCALE. PATIENT WORK OF BREATHING STARTED TO INCREASE. PT BECAME PALE AND DIAPHORETIC. PATIENT UPPER BODY STARTED TO SHACK. VITALS DONE. PTS BP ELEVATED. UNABLE TO GET SAT MONITOR TO READ. CALLED RT FOR EVALUATION. OTTO HERE FOR ORDER OF ALBUTEROL NEB DUE TO PATIENT DEVELOPING WHEEZING THROUGHOUT LUNGS. VERBAL ORDERS GIVEN FOR METOPROLOL AND LASIX. RAZO CATH PLACED BY JAZIEL FRANCIS. BIPAP AND EKG DONE BY RT. DR. CROWE IN THE ROOM FOR ASSESSMENT.
--- NOTE | 2017-08-31 12:45 | NUR ---
RAZO CATH PLACED. 325MLS OF URINE OUTPUT OUT OF CATH. PATIENT ANXIOUS WITH RAZO CATH START. NEEDING ASSISTANCE TO HOLD HANDS BACK WHILE PUTTING IN RAZO CATH.
--- NOTE | 2017-08-31 13:06 | NUR ---
CARE CONFERENCE ATTENDEES: PATIENT, GALI HIS , JASON HIS DAUGHTER AND 2 OTHER FAMILY MEMBERS STAFF: DR CROWE, MYSELF CASE MANAGEMENT, [facility], XIOMARA RT, MADINA PT, JAZIEL Renee RN, ARON Velazquez RN, [facility] DR CROWE DISCUSSED THE PLAN OF CARE EXPLAINING THAT HE WOULD NEED ANTIBX FOR SEVERAL DAYS, AND THAT HE WOULD ONLY NEED 5 TO 10 DAYS OF PHYSICAL THERAPY AND MAY NEED TO GO INTO A SWING BED FOR A FEW DAYS WHEN HE IS OVER SEVERE ILLNESS. PT AND FAMILY STATE UNDERSTANDING OF PLAN OF CARE AND DO NOT HAVE FURTHER QUESTIONS AT THIS TIME.
--- NOTE | 2017-08-31 13:10 | NUR ---
PT FEELING BETTER. AND DAUGHTER VISITING. DAUGHTER ASKED FOR SUGGESTIONS FOR OM TO GET A RIDE TO AND FROM HOSPITAL. RESEARCHED AND GAVE THEM OPTIONS. EXTENDED A BLESSING, WILL FOLLOW NEEDED
--- NOTE | 2017-08-31 13:30 | NUR ---
MORPHINE AND LOPRESSOR GIVEN. CONTINUE TO BE ON BIPAP. TOLERATING WELL. SATING 100 PERCENT HR 86 BP 111/66 ( 76). CONTINUE TO HAVE PATIENT ON MONITOR. PATIENT CONTINUES TO BE AFEBRILE.
--- NOTE | 2017-08-31 14:00 | NUR ---
BIPAP HELD, O2 AT 3.5 L NC APPLIED. FAMILY MEMBERS IN ROOM.
--- NOTE | 2017-08-31 14:30 | NUR ---
WENT IN ROOM TO DO ASSESSMENT. PATIENT PICKING AT BEDDING. ATTEMPTING TO CALL " [facility]" WITH IS CELL PHONE. PATIENT VERY ANXIOUS AND NOT FOLLOWING COMMANDS. PATIENT ABLE TO TELL THAT HE WAS IN [place] BUT CONFUSED ABOUT ALL OTHER ITEMS. PATIENT FAMILY AT BEDSIDE. BIPAP WAS PLACED BACK ON TO SEE IF IT WOULD ASSIST WITH CONFUSION. CALLED AN UPDATE TO DR. CROWE. NO NEW ORDERS AT THIS TIME OTHER THAN DISCONTINUE THE BIPAP IF IT IS AGGITATING PATIENT.
--- NOTE | 2017-08-31 14:48 | EKG ---
[facility] [address] [place] [address] Signed Poor data quality, interpretation may be adversely affected Sinus tachycardia Possible Anterior infarct (cited on or before 28-AUG-2017) Abnormal ECG When compared with ECG of 28-AUG-2017 21:44, Junctional rhythm has replaced Sinus rhythm Questionable change in initial forces of Septal leads Nonspecific T wave abnormality has replaced inverted T waves in Inferior leads Confirmed by BLANCA CROWE MD ([id number]) on 08/31/2017 2:48:36 PM Electronically Signed By: BLANCA CROWE MD 08/31/17 1448 PATIENT NAME: NAN MEREDITH Electrocardiogram DATE OF : 44 PHYSICIAN: BLANCA CROWE MD REPORT #: [id number] REPORT IS CONFIDENTIAL AND NOT TO BE RELEASED WITHOUT AUTHORIZATION
--- NOTE | 2017-08-31 15:10 | NUR ---
EYES SHUT, MORE RESTFUL AT THIS TIME. HOB ELEVATED. REMAINS ON BIPAP AT 35% FIO2. I=10.E=5. DAUGHTER IS AT BEDSIDE.
--- NOTE | 2017-08-31 16:00 | NUR ---
AWAKE. ATTEMPING TO GET OOB. BIPAP OFF. O2 NC AT 3.5 L APPLEID. TALKED WITH PATIENT ABOUT NEED TO REMAIN IN BED, PATIENT THEN CALM. FAMILY REMAIN IN ROOM.
--- NOTE | 2017-08-31 16:20 | NUR ---
ABLE TO TAKE PO MEDS WELL. KCL,REGLAN,NORCO GIVEN.
--- NOTE | 2017-08-31 17:51 | NUR ---
PATIENT CONTINUES TO SLEEP. RR EVEN AND UNLABORED. DAUGHTER IN ROOM. PATIENT WAKES TO TOUCH, BUT THEN CLOSES HIS EYES. REFUSED DINNER AT THIS TIME. CONTINUE TO MONITOR BP AND HR.
--- NOTE | 2017-08-31 18:20 | NUR ---
EMPTIED PATIENTS RAZO CATH FOR 175MLS THIS HOUR. EMPTIED MARLYS FOR 40ML. CHANGED MARLYS SITE DRESSINGS. OLD DRESSING WAS SATURATED WITH SEROUS DRAINAGE FROM MARLYS.PATIENT HAS HYPOACTIVE BS. TENDER TO THE TOUCH WHEN ASSESSING ABD. PATIENT GRIMACING AND C/O PAIN IN BACK WITH REPOSITIONING IN BED. PATIENT TAKING BITES OF SHERBERT. NORMAL SALINE FLUSH COMPLETE.
--- NOTE | 2017-08-31 18:50 | NUR ---
PATIENT DID NOT TRANSFER TO THE FLOOR TODAY. ORIGINAL PLAN WAS STOPPED AT NOON WHEN PATIENT BECAME DIAPHORETIC WITH INCREASE HR, AND ELEVATED BP. PATIENT WOB INCREASED AND UNABLE TO KEEP SATS UP. NEB WAS ORDERED. LASIX GIVEN. LOPRESSOR ADDED. NEW RZAO PLACED. DECREASED FLUIDS TO 10ML/HR. AFTER PATIENT RECOVERED WITH BIPAP ON. PATIENT STARTED TO HAVE INCREASED CONFUSION. RESTED ALL AFTERNOON WITH FREQUENT BP AND HR CHECKS. MARLYS PUTTING OUT 70MLS OF SEROUS DRAINAGE. HAVING TO REDRESS MARLYS SIGHT SEVERAL TIMES. GOOD UOP DURING SHIFT.
--- NOTE | 2017-08-31 19:30 | NUR ---
REPORT RECIEVED FROM DAY SHIFT. PT SLEEPING AT THIS TIME.
--- NOTE | 2017-08-31 20:30 | NUR ---
PT VERY TIRED AND SLEPT THROUGH MOST OF ASSESSMENT. STATES IS FEELING OK. HAS OCC COUGH. ORAL CARE DONE. CATH CARE DONE. MARLYS DRSG DRY AT THIS TIME. TAKING WATER WITHOU PROBLEM. DAUGHTER IN ROOM.
--- NOTE | 2017-08-31 21:04 | NUR ---
COUGHED PRODUCTIVELY OF WHITE/LT YELLOW SPUTUM THAT WAS TENACIOUS. ORAL CARE DONE.
--- NOTE | 2017-08-31 22:19 | NUR ---
SLEEPING, RESTING WELL AT THIS TIME.
--- NOTE | 2017-08-31 23:38 | NUR ---
PT USES CALL LIGHT TO SAY HE WANTED HEAD OF BED DOWN AND THAT HE WAS HUNGRY. REPOSITIONED UP IN BED AND GIVEN SHERBET PER REQUEST, TOOK 5 BITES. HEAD OF BED DOWN AFTER SEVERAL MINUTES. CAN OCC HEAR GURGLING IN BACK OF THROAT. PT ABLE TO COUGH FAIR. DRSG TO MARLYS SITE CHANGED FLUFFS SATURATED WITH SEROUS FLUID.
--- NOTE | 2017-09-01 01:00 | NUR ---
SLEEPING MOST OF TIME. DID COUGH PRODUCTIVLY OF SHERBET COLORED MUCOUS.
--- NOTE | 2017-09-01 02:29 | NUR ---
REPOSITIONED UP IN BED. WHILE IS SLEEPING MUCH OF TIME IS NOT RELAXED LAST NIGHT. DENIES PAIN.
--- NOTE | 2017-09-01 03:17 | NUR ---
AWAKE, COUGHING BUT UNABLE TO COUGH UP SPUTUM. PT IS ASKING FOR SOMETHING TO EAT. SAT PT UP AND GIVEN ENSURE. DRANK ABOUT 1/2 BOTTLE. DAUGHTER ASKING ABOUT NEBX TX TO HELP PT CLEAR SECRETIONS. PT DOES HAVE SCATTERED WHEEZES. RT CALLED AND GIVEN NEB TX. PT BRODERICK TX WELL. DRAWA SHEET CHANGED. MARLYS DRSG CHANGED.
--- NOTE | 2017-09-01 03:38 | NUR ---
PT COUGHED PRODUCTIVELY OF LARGE AMT TENACIOUS BLOODY SPUTUME. PT ABLE TO COUGH SOME OUT ON OWN THE REST WAS REMOVED WITH SWABS.
--- NOTE | 2017-09-01 04:46 | NUR ---
TAKING A FEW BITES OF APPLESAUCE. SHERBET TOO COLD HAS A CHIPPED TOOTH. LEAVE PT WITH HOB HIGH FOWLERS AFTER EATING.
--- NOTE | 2017-09-01 06:05 | NUR ---
RESTING. DAUGHTER INFORMED OF FUTHER DECREASE IN PLATELETS.
--- NOTE | 2017-09-01 08:00 | NUR ---
LETHARGIC, WILL OPEN EYES BRIEFLY. MUMBLING ONLY FEW WORDS, FOLLOWING FEW COMMANDS. ASSESSMENT DONE. DR. CROWE HERE TO SEE PATIENT.
--- NOTE | 2017-09-01 08:10 | NUR ---
DR. CROWE DECREASED O2 TO RA. PATIENT IN ROOM NOW. PATIENT REMAINS VERY LETHARGIC.
--- NOTE | 2017-09-01 08:20 | NUR ---
SPONGE BATH GIVEN.
--- NOTE | 2017-09-01 08:30 | NUR ---
UP TO CHAIR WITH MUCH ASSIST. IS VERY UNSTEADY ON FEET.
--- NOTE | 2017-09-01 08:45 | NUR ---
FED ONE POACHED EGG AND FEW SIPS OF ENSURE.
--- NOTE | 2017-09-01 09:30 | NUR ---
BACK TO BED, IS CHILLING, BACK TO BED WITH ASSIST OF 2 STAFF. EXTREME WEAKNESS. VERY DIFFICULT TO UNDERSTAND. HR TO 120 WITH INCREASED ECTOPY. RT HERE. BIPAP APPLIED WORK OF BREATHING INCREASE WITH CHILLING.
--- NOTE | 2017-09-01 11:00 | NUR ---
DR. CROWE AWARE OF FEVER, 103 AX. ORDERS RECIEVED.
--- NOTE | 2017-09-01 11:30 | NUR ---
URINE SENT TO LAB. BCX2 WILL BE OBTAINED.
--- NOTE | 2017-09-01 11:47 | NUR ---
IV SITE STARTED TO LEFT INNER FA. CXR PENDING.
--- NOTE | 2017-09-01 12:00 | NUR ---
CXR DONE. CENTRAL LINE CATH DC'D AND TIP SENT TO LAB. IV SITE STARTED TO LEFT INNER FA, 20 GA. BC X 2 SITES DRAWEN EARLIER. REMAINS VERY LETHARGIC. DR. CROWE AWARE OF PATIENT UNABLE TO TAKE LUNCH OR PO PHOS. HAS BEEN REPOSITIONED PRN. HOB ELEVATED. HOT TO TOUCH.
--- NOTE | 2017-09-01 13:20 | NUR ---
TYLENOL 500 MG PO GIVEN. THIS CRUSHED AND PUT IN APPLESAUSE. PT HAVNG DIFFICULTY SWALLOWING AND TAKING WATER IS VERY LETHARGIC. DR. CROWE IS AWARE OF MENTATION AND PATIENT OVER ALL STATUS. PT AND BROTEHR IN ROOM.
--- NOTE | 2017-09-01 14:02 | NUR ---
PT ON CPAP, BY HIS SIDE. SHE IS CONCERNED, THEIR DAUGHTER IS TAKING MORE TIMEOFF FROM WORK, WILL BE BACK TOMORROW. SHE EXPRESSED TO ME HER CONCERN OVER MOM DRIVING BACK AND FORTH. EXTENDED BLESSING, WILL CONTINUE TO FOLLOW
--- NOTE | 2017-09-01 14:19 | NUR ---
OFF BIPAP. ON RA. SAT 94. RR-24. DIAPHORTIC.
--- NOTE | 2017-09-01 15:17 | NUR ---
SLEEPING. TEMP-99.7 AX.
--- NOTE | 2017-09-01 15:31 | NUR ---
SPEECH THERAPY WITHHELD TODAY D/T FEVER AND SOMNOLENCE.
--- NOTE | 2017-09-01 16:00 | NUR ---
ASSESSMENT DONE. REMAINS LETHARGIC.
--- NOTE | 2017-09-01 17:45 | NUR ---
FED PATIENT POTATOES AND ENSURE. NEED DIRECTION TO SWALLOW. OCC COUGH NOTED WHEN TAKING ENSURE.
--- NOTE | 2017-09-01 18:00 | NUR ---
MARLYS DRESSING CHANGED WELL BED LINENS. DIAPHORTIC,
--- NOTE | 2017-09-01 18:45 | NUR ---
DR. CROWE UPDATED ONPATIENT MENTATION WELL VITAL SIGNS. PATIENT IS ON BIPAP AT 28% FIO2,I-10. E-5. ABG ORDERED.
--- NOTE | 2017-09-01 20:14 | NUR ---
DR CROWE CALLED BLOOD GAS DISCUSSED, NO NEW ORDERS. UPDATED ON HR AND AXILLARY TEMP OF 96.4. HOLDING 2000 DOSE OF LOPRESSOR AND PLACING WARMING BLANKET PER DR CROWE. D5LR @ 75ML CONTINUES RUNNING, TO BE DISCONTINUED AFTER 1 LITER INFUSION COMPLETE PER DR CROWE.
--- NOTE | 2017-09-01 20:36 | NUR ---
PATIENT REPOSITIONED TO LEFT SIDE. WARMING BLANKET IN PLACE.
--- NOTE | 2017-09-01 22:36 | NUR ---
CARE TURNED OVER TO ILYA Black RN
--- NOTE | 2017-09-01 22:51 | NUR ---
REPORT RECEIVED FROM IRIS FRANCIS. PT IS RESTING IN BED WITH BIPAP ON. RR 18, SPO2 95%, HR 50-60 SINUS TIANNA. PT AWAKENS FOR ASSESSMENT AND REPOSITIONING. DENIES NEEDS AT THIS TIME. AXILLARY TEMP IS 97.6 F, WARMING BLANKET IN PLACE. RAZO DRAINING KAMRYN URINE, IVF INFUSING AT 75ML/HR.
--- NOTE | 2017-09-01 23:29 | NUR ---
DR CROWE CALLED TO DISCUSS LOW URINE OUTPUT, HAS BEEN 23ML/HR FOR THE LAST FEW HOURS. BPS ARE STABLE AT THIS POINT, WILL CONTINUE TO MONITOR FOR NOW AND CALL IF BP'S DROP.
--- NOTE | 2017-09-02 00:25 | NUR ---
AWAKENS FOR ASSESSMENT, REQUESTS WATER, SIPS GIVEN AND BIPAP REPLACED. WARMING BLANKET STILL IN PLACE CURRENT AXILLARY TEMP 96.9 F. REPOSITIONED. URINE OUTPUT STILL LOW APPROX 20ML/HR.
--- NOTE | 2017-09-02 03:00 | NUR ---
PT REPOSITIONED, SIP OF WATER GIVEN. BACK TO SLEEP.
--- NOTE | 2017-09-02 06:03 | NUR ---
PT REPOSITIONED, CONTINUES TO WEAR BIPAP, SPO2 DOWN A BIT 90-93%, MOSTLY SLEEPY. HR 50'S. RR18. URINE OUTPUT WAS ABOUT 20ML/HR FOR THE NIGHT.
--- NOTE | 2017-09-02 08:00 | NUR ---
PT AWAKEN FOR MORNING ASSESSMENT, FOLLOWS DIRECTIONS, ORAL CARE COMPLETED AT THIS TIME.
--- NOTE | 2017-09-02 08:45 | NUR ---
DRAIN CARE COMPLETE NEW DRESSING APPLIED
--- NOTE | 2017-09-02 09:12 | NUR ---
DR MENJIVAR INTO SEE PT THIS AM, FAMILY AT THE BEDSIDE.
--- NOTE | 2017-09-02 09:14 | NUR ---
US WILL BE HERE ABOUT 0930 FOR TEST THIS AM.
--- NOTE | 2017-09-02 11:28 | NUR ---
PT UP TO THE CHAIR FOR BKF AFTER HIS US OF THE ABD. PT WAS A TWO PERSON ASSISTANCE AT THIS TIME. BUT AFTER BKF HE WAS A CEILING LIFT TO GET FROM THE CHAIR TO THE BS COMMODE. THEN THEN FROM THE BS COMMODE TO THE BED THE CEILING LIFT WAS USED WITH TWO STAFF MEMBERS. PT UNABLE TO AMBULATE AND HE WAS UNABLE TO KEEP HIS BUTT UNDER HIMSELF WITH THE USE OF THE CEILING LIFT. TWO PERSON TO GET HIM BACK TO BED. ONCE IN BED PT HE WENT TO SLEEP.
--- NOTE | 2017-09-02 12:32 | NUR ---
PT AWAKEN FOR PO MEDS, THEN HE FALLS BACK TO SLEEP.
--- NOTE | 2017-09-02 14:08 | NUR ---
I & O'S COMPLETED AT THIS TIME. THEN PT SET UP FOR LUNCH AT THIS TIME. PT IS TRYING TO FEED HIMSELF.
--- NOTE | 2017-09-02 14:25 | NUR ---
STAFF AND PT HAVE TRYED TO OBTAIN SPUTUM SAMPLE THIS MORNING AND AFTERNOON, BUT UNABLE TO OBTAIN AT THIS TIME.
--- NOTE | 2017-09-02 15:03 | NUR ---
PHYSICAL THERAPY INTO WORK WITH THE PT AT THIS TIME. DAUGHTER AT THE BEDSIDE ALSO AT THIS TIME.
--- NOTE | 2017-09-02 15:30 | NUR ---
PT IN BED APPEARS TO BE SLEEPING AT THIS TIME. DAUGHTER REMAINS AT THE BEDSIDE. URINE OUTPUT HAS PICKED UP SINCE THE LASIX.
--- NOTE | 2017-09-02 16:38 | NUR ---
PT ABLE TO TAKE ZACHARY PO INTAKE. ENCOURAGE TO DRINK THE ENSURE PT STATES "WHEN YOU HAVE SURGERY ON YOUR THROAT THINGS DONT GO WELL AFTER" "I TIRED". PT HAS SLEEP MOST OF THE SHIFT THIS AFTERNOON. ALL FAMILY IS GONE AT THIS TIME.
--- NOTE | 2017-09-02 18:09 | NUR ---
PT CONTIOUES TO HAVE GOOD URINE OUTPUT THIS EVENING. PT ALSO APPEARS TO BE RESTING WELL. AWAKENS WHEN SPOKEN TOO. CONTIOUES TO HAVE GARBLED SPEECH WHEN TALKING WITH STAFF.
--- NOTE | 2017-09-02 20:16 | NUR ---
ASSESSMENT COMPLETED. PT IS RESTING WITH EYES CLOSED, WAKES EASILY WHEN SPOKEN TO, PT IS [place]. PT ORIENTED TO SELF, SPEECH IS SOMEWHAT DIFFICULT TO UNDERSTAND. DENIES PAIN AND NAUSEA. LUNGS SOUND CLEAR, OCCASIONAL CONGESTED NONPRODUCTIVE COUGH. HR REGULAR. BOWEL TONES HYPOACTIVE, ABDOMEN SOFT. LAP SITES COVERED WITH STERI STRIPS, OLD DRAINAGE PRESENT. MARLYS TO RLQ DRAINING SMALL AMOUNT OF SEROUS FLUID, SITE COVERED WITH GAUZE, NO DRAINAGE NOTED. NO PERIPHERAL EDEMA NOTED. IV SITES PATENT AND SL. RAZO PATENT. SCD'S IN PLACE. 3L O2 VIA NC IN PLACE, R.T. TO PLACE BIPAP LATER. DENIES NEEDS, WILL CONTINUE TO MONITOR.
--- NOTE | 2017-09-02 22:00 | NUR ---
PT APPEARS TO BE SLEEPING, RR:21, SPO2: 88% ON 3L VIA NC, PT IS MOUTH BREATHING. NO APPARENT DISTRESS. WILL CONTINUE TO MONITOR.
--- NOTE | 2017-09-02 22:19 | NUR ---
R.T. IN TO PLACE PT ON BIPAP.
--- NOTE | 2017-09-02 23:58 | NUR ---
PT SLEEPING, NO APPARENT DISTRESS. RESPIRATIONS EVEN AND UNLABORED, BIPAP IN PLACE, RR:22. HR REGULAR. BOWEL TONES REMAIN HYPOACTIVE. WILL CONTINUE TO MONITOR.
--- NOTE | 2017-09-03 00:43 | NUR ---
PT REPOSITIONED AND ASSESSMENT DONE. 1MG IV ATIVAN AND 25MCG IV FENTANYL GIVEN.
--- NOTE | 2017-09-03 02:19 | NUR ---
IN TO RECORD I&O'S AND ADMINISTER 0200 LOPRESSOR. PT WOKE WHILE I WAS IN ROOM AND ASKED FOR A DRINK. ASSISTED PT TO REMOVE BIPAP MASK AND TAKE A DRINK OF WATER. HE DENIED FURTHER NEEDS. REPLACED MASK. WILL CONTINUE TO MONITOR.
--- NOTE | 2017-09-03 04:04 | NUR ---
PT RESTING WITH EYES CLOSED, BIPAP IN PLACE. REPOSITIONED PT IN BED. RR:21 SPO2: 91%, HR:66. WILL CONTINUE TO MONITOR.
--- NOTE | 2017-09-03 05:46 | NUR ---
PT CONTINUES TO REST WITH EYES CLOSED, NO APPARENT DISTRESS. BIPAP IN PLACE, RR:23, SPO2: 91%. HR:66. WILL CONTINUE TO MONITOR.
--- NOTE | 2017-09-03 08:07 | NUR ---
WHITEBOARD UPDATED, ROOM TIDIED
--- NOTE | 2017-09-03 09:18 | NUR ---
ASSISTED PATIENT WITH STANDING AT BEDSIDE TO URINATE
--- NOTE | 2017-09-03 10:45 | NUR ---
PATIENT ON BEDPAN. HAD BOWEL MOVEMENT. PERFORMED BEDBATH AND AM CARE.
--- NOTE | 2017-09-03 12:20 | NUR ---
ASSESSMENT COMPLETED THIS A.M. PT SLEEPY BUT ABLE TO EAT A FEW BITES OF BREAKFAST . DR. CROWE IN TO ASSESS PT, FAMILY IN ROOM. PHYSICAL THERAPY IN TO WORK WITH PT. PT UP TO CHAIR WITH 2 PERSON ASSIST, PT VERY WEAK AND WILL NOT HELP WITH MOVEMENT. PT UP TO CHAIR FOR 2 HOURS AND RETURNED TO BED WITH THE USE OF CEILING LIFT. NOON ASSESSMENT COMPLETED AND Tanisha FLEMING IN TO PLACE PICC LINE.
--- NOTE | 2017-09-03 13:33 | NUR ---
CXR TAKEN AFTER PICC LINE PLACEMENT BUT PICC LINE NEEDS TO BE REPOSITIONED. CXR RETAKEN BUT STILL NEEDS TO BE REPOSITIONED. DR CROWE NOTIFIED OF EXTRA CXR. 3RD CXR TAKEN AWAITING XRAY REPORT.
--- NOTE | 2017-09-03 14:26 | NUR ---
PATIENT SET UP IN BED WITH LUNCH TRAY. STATES HE IS NOT HUNGRY THOUGH
--- NOTE | 2017-09-03 16:32 | NUR ---
PT WITH BP 75/40 RECHECKED 85/40. DR. CROWE NOTIFIED AND ORDERS RECEIVED FOR LR 250 OVER 30 MINS. WILL RECHECK BLOOD PRESSURE AFTER BOLUS FINISHED.
--- NOTE | 2017-09-03 18:41 | NUR ---
PT TAKING A FEW BITES OF DINNER AND DRINKING ENSURE MILKSHAKE. BRODERICK WELL.
--- NOTE | 2017-09-03 20:16 | NUR ---
RECIEVED REPORT FROM KATIE FRANCIS.
--- NOTE | 2017-09-03 20:45 | NUR ---
PATIENT RESTING IN BED. OXYASK IN PLACE AT 5L/MIN. MEDICATION ADMINISTERED. HYDRATION GIVEN. REPOSITIONED ON R SIDE. SKIN IS INTACT. LUNGS CLEAR IN THE UPPER LOBES, CRACKLES, EXP WHEEZES, DIMINISHED IN LOWER LOBES. PATIENT HAS MOIST, NON-PRODUCTIVE COUGH. RAZO EMPTIED. REPLACED STATLOCK. SCDS IN PLACE. DENIES PAIN. ORIENTED TO PERSON, PLACE AND TIME. CALL LIGHT IN REACH.
--- NOTE | 2017-09-03 21:14 | NUR ---
PATIENT RESTING IN BED. HYDRATION GIVEN.
--- NOTE | 2017-09-03 21:56 | NUR ---
PATIENT RESTING IN BED. VS STABLE. HYDRATION OFFERED. DENIES FURTHER NEEDS. CALL LIGHT IN REACH.
--- NOTE | 2017-09-03 22:36 | NUR ---
REPOSITIONED PATIENT TO SEMIFOWLERS. HYDRATION GIVEN. PATIENT DENIES NEEDS. CALL LIGHT IN REACH.
--- NOTE | 2017-09-03 23:09 | NUR ---
PATIENT RESTING IN BED. HYDRATION OFFERED. DENIES NEEDS AT THIS TIME. URINE OUTPUT ADEQUATE. CALL LIGHT IN REACH.
--- NOTE | 2017-09-03 23:59 | NUR ---
REPOSITIONED PATIENT ON L SIDE WITH ASSIST. CHECKED FOR EPISODE OF STOOL INCONT., FOUND DRY. CHANGED DRESSING OVER MARLYS DRAIN. SITE IS WNL, NO S/S OF INFECTION. LAP SITES ALSO C/D/I COVERED WITH STERISTRIPS. BS HYPOACTIVE, HR REGULAR, LUNGS COURSE IN NATALIE, DIM EXP WHEEZES AUSCULTATED IN BILAT LOWER LOBES. ENCOURAGED PATIENT TO COUGH AND DEEP BREATHE. PATIENT'S COUGH IS CONGESTED WITH SMALL AMOUNTS OF THICK WHITE SPUTUM. SCDS IN PLACE. OXYMASK AT 5L/MIN-94%. HYDRATION GIVEN. NO C/O PAIN. PATIENT DENIES NEEDS AT THIS TIME. CALL LIGHT IN REACH.
--- NOTE | 2017-09-04 01:32 | NUR ---
PATIENT APPEARS TO BE SLEEPING. VS STABLE. CALL LIGHT IN REACH.
--- NOTE | 2017-09-04 02:15 | NUR ---
REPOSITIONED PATIENT TO SEMI-FOWLERS POSITION. ABX STARTED. VS STABLE. SCDS AND OXYMASK IN PLACE. HYDRATION GIVEN. PATIENT DENIES FURTHER NEEDS.
--- NOTE | 2017-09-04 04:15 | NUR ---
REPOSITIONED PATIENT ON R SIDE. PATIENT DENIES PAIN. CHECKED FOR EPISODE OF STOOL INCONT, FOUND DRY. PERICARE PERFORMED. SHERBET DELIVERED PER PT'S REQUEST. PATIENT UNABLE TO FEED HIMSELF AT THIS TIME. HAVING SOME COORDINATION DIFFICULTIES WITH THE SPOON TO MOUTH. HYDRATION GIVEN. MARLYS DRAIN EMPTIED-SEROUS FLUID. DRESSING C/D/I. LAP SITES WNL, NO S/S OF INFECTION. ABDOMEN IS SOFT/NON-TENDER, BS HYPOACTIVE. LOOSE, CONGESTED COUGH STILL PRESENT. LUNGS CLEAR IN UPPER LOBES, DIMINISHED IN BLL, CRACKLES HEARD IN RLL. HR REG, 58-67 BPM. NO EDEMA. FAINT PEDAL PULSES PALPATED. SCDS AND OXYMASK IN PLACE. PATIENT IS ORIENTED X4. STATES HE IS COMFORTABLE. DENIES FURTHER NEEDS. CALL LIGHT IN REACH.
--- NOTE | 2017-09-04 05:45 | NUR ---
LABS DRAWN OFF PICC. PATIENT DENIES NEEDS.
--- NOTE | 2017-09-04 06:14 | NUR ---
REPOSITIONED PT TO SEMI-FOWLERS POSITION. SCDS IN PLACE, OXYMASK AT 5L. HYDRATION OFFERED. PATIENT DENIES NEEDS. CALL LIGHT IN REACH.
--- NOTE | 2017-09-04 06:52 | NUR ---
BOOSTED PATIENT UP IN BED WITH ASSIST. PATIENT NOW UPRIGHT IN BED. PILLOW UNDER LEGS. DENIES PAIN. REFILLED WATER PITCHER. HYDRATION GIVEN.
--- NOTE | 2017-09-04 08:27 | NUR ---
DID AM CARE ON PATIENT WILL MOVE HIM VIA KENNEDY WITH NURSE TO CHAIR AND HELP HIM EAT HIS BREAKFAST.
--- NOTE | 2017-09-04 08:45 | NUR ---
RECIEVED BEDSIDE REPORT FROM PENNY MILLER. PT IS DROWSY, BUT WILL OPEN EYES TO VOICE. PT IN BED. AFTER REPORT, TILTING HEAD BAND SAWYER AND RN TRANSFERED FROM BED TO CHAIR VIA KENNEDY LIFT. PT TOLERATED TRANSFER WELL. SHORTLY AFTER TRANSFER PT REPORTED NEEDING THE BSC. LIFTED PT IN KENNEDY LIFT AND PLACED BEDPAN UNDER PT. PT HAD LARGE, LIQUID BM. PT CLEANED AND RETURNED TO CHAIR. PT APPEARS COMFORTABLE AT THIS TIME.
--- NOTE | 2017-09-04 09:57 | NUR ---
NURSE TOOK OUT CATHETER AND TOOK OFF TELE, PATIENT IS GETTING READY TO TRANSFER TO THE FLOOR.
--- NOTE | 2017-09-04 10:20 | NUR ---
PT MOVED TO MED/SURG RM 112 AT 1020. ALL BELONGINGS MOVED WITH PT. RAZO D/C PRIOR TO MOVE PER DR CROWE. TELE D/C PER DR CROWE. VITAL SIGNS TAKEN ONCE ON MED/SURG. PT MOVED ON 5L O2 AND OXYMASK. PT SPOUSE AT BEDSIDE. PT TOLERATED MOVE WELL.
--- NOTE | 2017-09-04 11:27 | NUR ---
PT TRANSFERED BACK TO BED, REPOSITIONED IN BED. PT REPORTED NO FEELING TO VOID OF YET. REPORTED NO PAIN. PERSONAL BELONGINGS AT BEDSIDE. SPOUSE AT BEDSIDE. SCD PLACED. IV ABX SALINE LOCKED. PICC LINE HEPRIN LOCKED.
--- NOTE | 2017-09-04 13:46 | NUR ---
ZPATIENT HAD A LOT OF FAMILY IN THE ROOM, WITH LOTS OF BALLOONS, HE WS IN BED, I DID HIS VITAL SIGNS AND ASKED IF HE NEEDED ANY FURTHER ASSISTANCE HE SAID NO, I PUT A MILKSHAKE HIS FAMILY BROUGHT HIM IN THE FREEZER WITH A DEVELOPMENT ASSISTANT IT WITH ROOM NUMBER AND DATE.
--- NOTE | 2017-09-04 13:48 | NUR ---
NEWS LIBRARY DIRECTOR REPORTED BP OF 97/56. DR CROWE ADVISED. NEW ORDERS FROM DR CROWE OF ENCOURAGE FLUIDS AND RECHECK BP IN ONE HOUR. DISCUSSED WITH PT GOAL TO DRINK 1/3 OF A TUMBLER OF WATER EACH HOUR. PT AND FAMILY AGREED.
--- NOTE | 2017-09-04 14:20 | NUR ---
BP RECHECKED, STABLE. IV ANTIBIOTIC INFUSING, CONTINIOUS PULSE OX 02 95% 5L OXIMASK. PATIENT RESTING WITH EYES CLOSED.
--- NOTE | 2017-09-04 16:42 | NUR ---
HELPED PATIENT REMOVE URINAL, FOOTBALL WAS ON WE CHATED A BIT ABOUT THE TITANS LOSING, I TOLD HIM I WOULD BE IN TO HELP HIM EAT DINNER WHEN IT CAME AND ASKED IF HE NEEDED ANYTHING ELSE HE SAID NO.
--- NOTE | 2017-09-04 18:00 | NUR ---
PATIENT FEEDING SELF, APPEARS TO BE MANAGING ACTIVITY WELL. ENCOURAGED PATIENT TO DRINK MORE FLUIDS. FOLDER STITCHER OPERATOR REPORTED BP LOW, RECHECKED STABLE. PATIENT NO COMPLAINTS OF PAIN AT THIS TIME. MARLYS 35 ML OF SEROSANGUINIOUS FLUID.
--- NOTE | 2017-09-04 20:21 | NUR ---
PT LAYING IN BED, NO APPARENT DISTRESS AT THIS TIME. GARBLED SPEECH, DIFFICULT TO UNDERSTAND. PT DROWSY, BUT AWAKES TO RN VOICE EASILY. CONTINUOUS PULSE OXIMETER IN PLACE. DENIES PAIN. USED URINAL TO VOID. PICC FLUSHES AND PULLS BACK BLOOD. PT HAS WET SOUNDING COUGH. OXYMASK IN PLACE WITH 5L. CALL LIGHT IN REACH.
--- NOTE | 2017-09-04 23:37 | NUR ---
pt appears to be sleeping. o2 sat 92, hr 80. rr wnl and unlabored.
--- NOTE | 2017-09-05 00:47 | NUR ---
ASSISTED PT TO USE URINAL. CONTINUOUS PULSE OXIMETER HAS ALARMED A FEW TIMES TONIGHT DUE TO PT TAKING HIS OXYMASK OFF, O2 DIPS DOWN INTO MID TO UPPER 80'S. PT REPORTS THAT HE DOES IT IN HIS SLEEP. WILL CONTINUE TO MONITOR CLOSELY. CONTINUOUS PULSE OXIMETER IN PLACE. PT VOIDED 150MLS. CALL LIGHT IN REACH. NO FURTHER NEEDS.
--- NOTE | 2017-09-05 03:08 | NUR ---
PT APPEARS TO BE SLEEPING. LIGHTS AND TV OFF IN ROOM.
--- NOTE | 2017-09-05 05:51 | NUR ---
pt used call light. assisted pt with urinal. pt has no further needs at this time. call light in reach.
--- NOTE | 2017-09-05 06:08 | NUR ---
pulled blood from picc for todays labs. re-heparinized picc.
--- NOTE | 2017-09-05 07:00 | NUR ---
HELPED PTS NURSE BOOST HIM UP IN BED AND FIX THE BLANKETS. HE SAID HE WAS MORE COMFORTABLE. ASKED IF HE NEEDED ANYTHING ELSE AT THIS TIME. HE STATED NO HE DID NOT.
--- NOTE | 2017-09-05 07:42 | NUR ---
BEDSIDE REPORT RECEIVED FROM SVETLANA. PATIENT RESTING IN BED , APPEARS TO BE SLEEPING AT THE TIME OF REPORT. RR FLAVIO/UNLBORED. O2 SAT 94% AND HR 80-90 PER PULSE OXYMETER. PATIENT IS 5L O2 VIA OXY MASK.
--- NOTE | 2017-09-05 08:00 | NUR ---
BED BATH, MELCHOR CARE, AND ORAL CARE DONE. PATIENT UP FROM BED TO CHAIR WITH 2 PERSON ASSIST WITH GAIT BELT AND FWW. PATIENT WEAK AND WOBBLY. PATIENT SET UP FOR BREAKFAST. PATIENT IS WEAK IN ARMS. CALL BUTTON IN REACH. IN ROOM. NO OTHER NEEDS AT THIS TIME.
--- NOTE | 2017-09-05 09:54 | NUR ---
DR CROWE IN TO SEE AND EVALUATE PATIENT, AND DISCUSS PLAN OF CARE.
--- NOTE | 2017-09-05 10:30 | NUR ---
SPOKE WITH PATIENT AND IN ROOM. PATIENT SEEMS [place] AND SL CONFUSED AT TIMES, BUT HE IS WORKING WITH PHYSICAL THERAPY AT THIS TIME. DISCUSSED WITH THE DISCHARGE PLANS. SHE HOPES PATIENT WON'T NEED TO GO TO A SKILLED NURSING FOR REHAB. WE DISCUSSED THAT HE IS VERY WEAK, AND IT MAY TAKE SOME TIME FOR REHAB, BUT THAT WE CAN LOOK AT TRANSITIONAL CARE FOR A WEEK OR SO TO DETERMINE IF HE PROGRESSES. SHE IS IN AGREEMENT WITH THIS. SHE STATES HER DAUGHTER WILL BE BACK TUESDAY AND "SHE IS REALLY HIS CHEERLEADER".
--- NOTE | 2017-09-05 10:42 | NUR ---
PATIENT UP TO CHAIR WITH 2 PERS. ASSIST. PATIENT DENIES PAIN AND NAUSEA AT THIS TIME. CALL LIGHT AND PERSONAL BELONGING WITHIN REACH. AT BEDSIDE.
--- NOTE | 2017-09-05 11:15 | NUR ---
DR MENJIVAR IN ROOM TO SEE AND EVALUATE PATIENT. MARLYS DRAIN DC PER MD. PATIENT RESTING IN CHAIR AT THIS TIME. NO APPARENT DISTRESS.
--- NOTE | 2017-09-05 11:15 | NUR ---
PATIENT UP IN CHAIR. AND RN IN ROOM. NO NEEDS AT THIS TIME.
--- NOTE | 2017-09-05 11:40 | NUR ---
PATIENT RESTING IN BED. PATIENT WAS ASSISTED TO BEDSIDE COMMODE. HAD 1 BM. PATIENT DENIES PAIN. PATIENT ABLE TO VIBALIZED NEEDS
--- NOTE | 2017-09-05 13:45 | NUR ---
PATIENT 2 PA WITH FWW AND GATE BELT TO BSC AND BACK TO BED. SDC'S ON PILLOW UNDER KNEES. CALL BUTTON IN REACH. NO OTHER NEEDS AT THIS TIME. PATIENTS AND BROTHER IN ROOM.
--- NOTE | 2017-09-05 14:10 | NUR ---
PATIENT RESTING IN BED WITH EYES CLOSED. CALL BUTTON IN REACH. FRESH WATER GIVEN. IN ROOM. NO OTHER NEEDS AT THIS TIME.
--- NOTE | 2017-09-05 14:18 | NUR ---
Heart Failure RN initial intake note: Admit Diagnosis Hospital admit date Hospital discharge date # Hospital admissions in the last 6 months? PCP Dr Ferrera Kennel Worker :[place], next appt. [id number] Lives with spouse and 2 dogs. With support from Grandjoseph Rojas ([place]) and daughter who can come to town Fri-Sat-Sun. Echo date EF _30-35_% Owns scale: Yes Literacy: yes can read with glasses. Does not like to wear hearing aides Usual activity: minimal at home Na+habits: _eats at center once a week. Does eat frozen convenience dinners. cooks and shops. 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 can drive but is not comfortable going out of town. Daughter has taken them to [place] [facility]ology visits. Pharmacy : [facility] Dates of vaccines Flu : [address] Ferrera Pneumovax: 2017 DC Readiness Checklist Initiated: YEs F/U visit date: Medication list made- No since DC medications not established at this time. Patient's health care goals: Identified barriers: [place], weakness [place] Plan of Care: Discussed possible Meals on Wheels for patient upon DC with paid search manager. Initiated patient education with spouse Selena Jimenez . Patient is tired and with bedside RN. Discussed what is heart failure, need for medications and daily symptoms monitor, low sodium diet transition, Given heart failure folder including [facility] Understanding Heart Failure book, daily weight monitoring form, low salt shopping list, and daily medication form. Plan to return at a later date to educate patient.
--- NOTE | 2017-09-05 15:00 | NUR ---
PATIENT RESTING IN BED DENIES PAIN AND NAUSEA. OCCUPATIONAL THERAPIST IN ROOM.
--- NOTE | 2017-09-05 15:20 | NUR ---
PATIENT RESTING IN BED AT THIS TIME. DENIES PAIN AND NAUSEA. IV ABX INFUSING. PATIENT WAS REPOSITIONED.
--- NOTE | 2017-09-05 16:00 | NUR ---
ASSISTED PATIENT WITH SHAVING FACE. PATIENT HAS HIS EYES CLOSE AND SNORED. SORES AROUND MOUTH NOTIFIED RN.
--- NOTE | 2017-09-05 18:48 | NUR ---
PATIENT WAS UP TO CHAIR HALF OF THE DAY. HAD 2 BMs. ATE SOME OF HIS MEALS. ABLE TO DRINK MORE TODAY. PICC LINE IN PLACE AND FLUSHED WELL WITH BLOOD RETURN. IV ABX. PATIENT IS ON 5L VIA OXY MASK. HAD BEEN MORE AWAKE TODAY.
--- NOTE | 2017-09-05 20:09 | NUR ---
PT CALLED USING CALL LIGHT. NOTIFIED STAFF THAT HE HAD BEEN INCONTINENT OF URINE. CLEANED PT UP, NEW ATTENDS AND CHUX IN PLACE, RE-POSITIONED IN BED. CALL LIGHT IN REACH. NO FURTHER NEEDS. SWITCHED OUT NC FOR OXYMASK DUE TO PT MOUTH BREATHING WHILE SLEEPING.
--- NOTE | 2017-09-05 20:29 | NUR ---
VITAL SIGNS AND INTAKE AND OUTPUT DONE. PATIENT DID NOT NEED ANYTHING AT THE MOMENT. RN [place] AND I DID CHANGE WET ATTENDS.
--- NOTE | 2017-09-05 20:55 | NUR ---
PT APPEARS ASLEEP. RR WNL AND UNLABORED. REMAINED ASLEEP WITH RN IN ROOM. CALL LIGHT IN REACH.
--- NOTE | 2017-09-05 23:53 | NUR ---
PATIENT CALLED. HELPED DRINK WATER AND ENSURE. REFILLED ICE WATER. HELPED USED THE URINAL. CALL LIGHT WITHIN REACH.
--- NOTE | 2017-09-06 | NUR ---
PT APPEARS ASLEEP. RR WNL AND UNLABORED.
--- NOTE | 2017-09-06 01:18 | NUR ---
PT CALLED FOR ASSISTANCE USING THE URINAL. VOIDED IN URINAL. RE-POSITIONED PT IN BED. CALL LIGHT IN REACH.
--- NOTE | 2017-09-06 02:18 | NUR ---
pt appears asleep. rr and unlabored. 94% on 5l via oxymask, hr 92.
--- NOTE | 2017-09-06 11:08 | NUR ---
ALL PREVIOUS NOTES FOR THIS SHIFT ON PAPER CHART. PT RESTING WITH HOB ELEVATED, ON 5L O2 VIA OXY MASK. HAS IV MERREM AND LEVAQUIN INFUSING. GAVE PO REGLAN ORDERED. PT DENIED NAUSEA, DENIED PAIN.
== END 2017-09-06 10:55 | disposition swing bed (61) | DRG 853 ==
LOC: ED 03:04 → CCU 05:28 → MS 09-04 10:20
PROVIDERS: Surgery; ADMIT Internal Medicine
PROC: BF12YZZ Fluoroscopy of Gallbladder using Other Contrast (ICD-10-PCS; 2017-08-29)
PROC: 0FH Hepatobiliary System and Pancreas, Insertion (ICD-10-PCS; 2017-08-29)
PROC: 0FT44ZZ Resection of Gallbladder, Percutaneous Endoscopic Approach (ICD-10-PCS; principal; 2017-08-29 15:45)
DX: A41.51 Sepsis due to Escherichia coli [E. coli] (principal); R65.21 Severe sepsis with septic shock; J96.01 Acute respiratory failure with hypoxia; J15.5 Pneumonia due to Escherichia coli; G93.41 Metabolic encephalopathy; I82.0 Budd-Chiari syndrome; N17.9 Acute kidney failure, unspecified; I47.1 Supraventricular tachycardia; K81.0 Acute cholecystitis; J98.11 Atelectasis; D69.6 Thrombocytopenia, unspecified; E83.42 Hypomagnesemia; E83.39 Other disorders of phosphorus metabolism; E55.9 Vitamin D deficiency, unspecified; R53.81 Other malaise; Z85.01 Personal history of malignant neoplasm of esophagus; F39 Unspecified mood [affective] disorder; Z16.12 Extended spectrum beta lactamase (ESBL) resistance; I11.0 Hypertensive heart disease with heart failure; I50.9 Heart failure, unspecified
CPT/HCPCS: 00790; 36415; 36569; 36600; 51702; 71010; 71260; 74177; 74300; 76700; 76705; 80048; 80053; 80069; 80076; 81001; 82150; 82248; 82306; 82570; 82803; 82977; 83605; 83615; 83735; 83880; 84100; 84300; 84540; 85025; 85610; 86022; 87040; 87070; 87075; 87076; 87077; 87185; 87186; 87205; 87502; 88304; 92526; 92610; 93005; 93010; 93306; 94640; 94660; 94667; 94668; 97110; 97162; 97165; 97530; C1751; G8996; G8997; J0330; J0692; J1100; J1335; J1644; J1652; J1720; J1885; J1956; J2185; J2250; J2270; J2370; J2405; J2710; J2765; J3010; J3370; J3475; J7030; J7120; P9047; Q9967

== ENCOUNTER 2017-09-06 10:55 | Inpatient (IN) | payer MEDICARE, OTHER ==
[~2017-09-06] VITALS: Ht 180.3 cm; Wt 69.4 kg
--- OUTSIDE RECORDS SUMMARY | ~2017-09-06 | XMS | Clinical Summary ---
Demographics + + + | Address | [address] | | | [place] [address] | + + + | Home Phone | | + + + | Preferred Language | Unknown | + + + | Marital Status | | + + + | Orthodoxy Affiliation | NON | + + + | Race | White | + + + | Ethnic Group | Not or | + + + Author + + + | Author | [facility] | + + + | Organization | [facility] | + + + | Address | Unknown | + + + | Phone | Unavailable | + + + Support + + + + + | Name | Relationship | Address | Phone | + + + + + | Junaid Jimenez | ECON | [address] | | | | | [place] | | | | | [phone] | | + + + + + ECON | Unknown | | + + + + + ECON | Unknown | | + + + + + Care Team Providers + +------+-------+ | Care Museum Curator Name | Role | Phone | + +------+-------+ | Deondre Landis MD | PP | tel | + +------+-------+ Source Comments [facility] is fully live on both [facility] and [facility] Allergies + + + + + + | Active Allergy | Reactions | Severity | Noted | Comments | | | | | Date | | + + + + + + | Adhesive Tape | Rash | | 02/15/20 | Paper tape is fine | | | | | 15 | to use | + + + + + + Current Medications + + + +---------+------+------+-------+ | Prescription | Sig. | Disp. | Refills | Star | End | Statu | | | | | | t | Date | s | | | | | | Date | | | + + + +---------+------+------+-------+ | atorvastatin 80 mg | 1 tablet by feeding | 1 | 0 | /2 | | Activ | | oral tablet | tube route once | tablet | | 0/20 | | e | | | daily. | | | 15 | | | + + + +---------+------+------+-------+ | aspirin chewable | 1 tablet by feeding | 1 | 0 | 07/2 | | Activ | | 81 mg oral | tube route once | tablet | | 0/20 | | e | | tablet,chewable | daily. | | | 15 | | | + + + +---------+------+------+-------+ | ondansetron ODT | Take 1 tablet by | 30 | 1 | 07/2 | | Activ | | (ZOFRAN ODT) 4 mg | mouth every six | tablet | | 4/20 | | e | | oral | hours as needed for | | | 15 | | | | tablet,disintegratin | nausea/vomiting. | | | | | | | g | | | | | | | + + + +---------+------+------+-------+ | oxyCODONE, | 5 mL by feeding tube | 250 mL | 0 | 07/2 | | Activ | | immediate release, 5 | route every six | | | 4/20 | | e | | mg/5 mL oral | hours as needed for | | | 15 | | | | solution | moderate pain. | | | | | | + + + +---------+------+------+-------+ | OMEPRAZOLE 40 mg | TAKE 1 CAPSULE BY | 30 | 0 | 10/1 | | Activ | | oral capsule,delayed | MOUTH ONCE DAILY FOR | capsule | | 10/08 | | e | | | GASTOESOPHAGEAL | | | 17 | | | | release(DR/EC)Indica | REFLUX DISEASE. | | | | | | | tions: Esophageal | | | | | | | | adenocarcinoma (HCC) | | | | | | | + + + +---------+------+------+-------+ Active Problems + + + | Problem | Noted Date | + + + | Anastomotic leak following esophagectomy | 04/04/2015 | + + + | GERD (gastroesophageal reflux disease) | 04/04/2015 | + + + | Hypertension | 04/04/2015 | + + + | Cheema's esophagus | 04/04/2015 | + + + | Back pain, chronic | 04/04/2015 | + + + | Knee pain, chronic | 04/04/2015 | + + + | hx TN (myocardial infarction) | 04/04/2015 | + + + + + | Overview: s/p CABG x 2 | + + + + + | Hearing loss | 04/04/2015 | + + + + + | Overview: bialteral hearing aids | + + + + + | Acid reflux | 03/26/2015 | + + + | HLD (hyperlipidemia) | 03/26/2015 | + + + | BP (high blood pressure) | 03/26/2015 | + + + | Chronic LBP | 06/04/2014 | + + + | Esophageal adenocarcinoma (HCC) | | + + + | Unintentional weight loss | | + + + | Dysphagia | | + + + Encounters +--------+--------+ + + + | Date | Type | Specialty | Care Team | Description | +--------+--------+ + + + | 06/29/ | Refill | | Vijay Akbar MD | Refill Request | | 2016 | | | | | +--------+--------+ + + + from Last 3 Months Family History + +------+--------+ + | Relation | Name | Status | Comments | + +------+--------+ + Social History + + + +--------+ [...] + +---------+ + | Alcohol Use | Drinks/We | oz/Week | Comments | | | ek | | | + + +---------+ + | Yes | 14 | 7.0 | | | | Standard | | | | | drinks or | | | | | | | | | | equivalen | | | | | t | | | + + +---------+ + + + + | Sex Assigned at | Date Recorded | | | | + + + | Not on file | | + + + Last Filed Vital Signs + + + + | Vital Sign | Reading | Time Taken | + + + + | Blood Pressure | 135/65 | 04/15/2017 12:14 PM PDT | + + + + | Pulse | 81 | 04/15/2017 12:14 PM PDT | + + + + | Temperature | 36.2 C (97.2 F) | 04/15/2017 12:14 PM PDT | + + + + | Respiratory Rate | 16 | 01/23/2016 11:18 AM PDT | + + + + | Oxygen Saturation | 100% | 01/23/2016 11:18 AM PDT | + + + + | Inhaled Oxygen | - | - | | Concentration | | | + + + + | Weight | 73.9 kg (163 lb) | 04/15/2017 12:14 PM PDT | + + + + | Height | 177.8 cm (5' 10") | 04/15/2017 12:14 PM PDT | + + + + | Body Mass Index | 23.39 | 04/15/2017 12:14 PM PDT | + + + + Plan of Treatment +--------+---------+ + + + | Date | Type | Specialty | Care Team | Description | +--------+---------+ + + + | 04/14/ | Office | | Vijay Akbar MD | | | 2018 | Visit | | [address] | | | | | | [place], | | | | | | [place] [address] | | | | | | [phone] | | | | | | | | +--------+---------+ + + + + + + + + | Health Maintenance | Due Date | Last Done | Comments | + + + + + | INFLUENZA VACCINE | | | | | (FLU SHOT) | 7 | | | + + + + + Implants + +------+--------+ +--------+--------+--------+ | Implanted | Type | Area | Manufacture | Device | Expira | Model | | | | | r | | tion | / | | | | | | Identi | Date | Serial | | | | | | fier | | / Lot | + +------+--------+ +--------+--------+--------+ | [employer]man Pleelsieet Ptfe 2.5cm X | | N/A: | BARD | | 11/16/ | [id number] | | 15cm - [id number]: Qty: | | Abdome | | | 2020 | | | 1 on 03/27/2015 by Raffy, | | n | | | | /[id number] | | MD Vijay | | | | | | 6 | | | | | | | | /[id number] | | | | | | | | 269 | + +------+--------+ +--------+--------+--------+ Results Not on filefrom Last 3 Months
--- OUTSIDE RECORDS SUMMARY | ~2017-09-06 | XMS | Encounter Summary ---
Demographics + + + | Address | [address] | | | [place] [address] | + + + | Home Phone [...] + + + | Junaid Jimenez | [address] | | | | | [place] | | | | | [phone] | | + + + + + ECON | Unknown | | + + + + + ECON | Unknown | | + + + + + Care Team Providers + +------+-------+ | Care Rug Clipper Name | Role | Phone | + +------+-------+ | Deondre Landis MD | PCP | tel | + +------+-------+ Reason for Visit + + + | [...] [facility] [address] | [address] | | | | | Floor [address] | [place] [facility] | | | | | Julia Mailcode: [facility] | [place] [address] | | | | | [facility] | [phone] | | | | | and [place], [address]th | | | | | | floor [place], [place] | | | | | | [address] | | | | | | [phone] | | | +--------+--------+ + + + [...] on file | | + + + as of this encounter Plan of Treatment +--------+---------+ + + + | Date | Type | Specialty | Care Team | Description | +--------+---------+ + + + | 04/14/ | Office | Surgery | Vijay Akbar MD | | | 2018 | Visit | | [address] | | | | | | [place], | | | | | | [place] [address] | | | | | | [phone] | | | | | | | | +--------+---------+ + + + as of this encounter Visit Diagnoses + + | Diagnosis | + + | Esophageal adenocarcinoma (HCC) | + + | Malignant neoplasm of esophagus, unspecified site | + +"
[~2017-09-06 10:55] MED LIST changes: +ASPIR-LOW81 MG PO; +ESCITALOPRAM OX10 MG PO; +LISINOPRIL20 MG PO; +OMEPRAZOLE MAGN20 MG PO; +OMEPRAZOLE40 MG PO; +PRAVASTATIN SOD40 MG PO; +REGLAN10 MG PO
--- NOTE | 2017-09-06 11:53 | NUR ---
PT'S STATUS CHANGED TO SWING BED AT 1132. PT SITTING UP IN BED, SLEEPING SOUNDLY.
--- NOTE | 2017-09-06 12:37 | NUR ---
ASSISTED PT IN DRINKING CHOCOLATE ENSURE, WITH ADDED PROTEIN POWDER, PT DRANK 200 CC. IS NOW SLEEPING AGAING, HOB ELEVATED.
--- NOTE | 2017-09-06 13:21 | NUR ---
PT SLEEPING SOUNDLY, AROUSED TO VERBAL STIMULI. REFUSED ANY FURTHER LUNCH, ASIDE FROM ENSURE THAT HE DRANK EARLIER. DENIED NEEDS.
--- NOTE | 2017-09-06 15:08 | NUR ---
PATIENT SLEEPING A LOT TODAY. HIS ONLY INTAKE HAS BEEN 200 ML OF CHOCOLATE ENSURE ENLIVE BLENDED WITH A PACKET OF PROTEIN POWDER (APPROX. [phone] CALORIES).
--- NOTE | 2017-09-06 16:53 | NUR ---
PT ASLEEP IN BED. CHANGED HIS ATTENDS. PT HAS CALL LIGHT IN REACH.
--- NOTE | 2017-09-06 17:12 | NUR ---
PT SITTING UP IN BED, IS ON 5L O2 VIA NC. PT DRANK 1/2 VANILLA ENSURE, AND DRANK SEVERAL SIPS OF WATER. PT STATED "NO" WHEN ASKED IF HE WOULD EAT SOME OF HIS DINNER. REFUSED TO DRINK MORE ENSURE AT THIS TIME. GRANDSON IN VISITING WITH PT AT THIS TIME. PT DENIES NEEDS. DENIES PAIN.
--- NOTE | 2017-09-06 17:55 | NUR ---
PT DROWSY, SLEEPING MUCH OF THIS SHIFT. AROUSED TO VERBAL STIMULI. IS ORIENTED X 4, SLIGHTLY SLOW TO RESPOND AT TIMES. PT HAD VERY POOR APETITE, ENCOURAGED PO INTAKE, BUT PT REFUSED FOOD, DID DRINK 1 CAN ENSURE AT LUNCH, 1/2 CAN ENSURE AT BREAKFAST, AND 1/2 CAN ENSURE AT DINNER. PT DRANK WATER WELL THIS SHIFT. STILL USING 5L O2 VIA OXYMASK TO MAINTAIN SATURATION AT OR GREATER THAN 90%. LUNGS DIMINISHED, COARSE. PICC TO LUE WNL, BLOOD RETURN GOOD.
--- NOTE | 2017-09-06 19:30 | NUR ---
RECEIVED REPORT FROM RN. PATIENT IS RESTING COMFORTABLY IN BED, BREATHING IS EVEN AND UNLABORED ON 5L O2 VIA OXYMASK. O2 SATURATION IS 92%, PULSE IS 63. DENIES NEEDS AT THIS TIME. CALL LIGHT WITHIN REACH.
--- NOTE | 2017-09-06 20:00 | NUR ---
REPOSITIONED PATIENT FOR COMFORT, BREATHING IS EVEN AND UNLABORED ON 5L 02 VIA OXYMASK, O2 SATURATION IS 92%. DENIES NEEDS AT THIS TIME. ASSESSMENT DONE, MEDICATIONS GIVEN. CALL LIGHT WITHIN REACH.
--- NOTE | 2017-09-07 01:17 | NUR ---
PATIENT IS RESTING COMFORTABLY IN BED, BREATHING IS EVEN AND UNLABORED. O2 SATURATION IS 95% ON 5L O2 VIA OXYMASK, PULSE IS 66. FLACC SCORE OF 0. CALL LIGHT WITHIN REACH.
--- NOTE | 2017-09-07 02:49 | NUR ---
PATIENT RESTING COMFORTABLY IN BED, BREATHING IS EVEN AND UNLABORED. 02 SATURATION IS 94% ON 5L 02 VIA OXYMASK, PULSE IS 68. FLACC SCORE OF 0. CALL LIGHT WITHIN REACH.
--- NOTE | 2017-09-07 05:12 | NUR ---
PATIENT RESTING COMFORTABLY IN BED, BREATHING IS EVEN AND UNLABORED. O2 SATURATION IS 94% ON 5L O2 VIA OXYMASK. PROVIDED SIPS OF WATER. DENIES FURTHER NEEDS AT THIS TIME. CALL LIGHT WITHIN REACH.
--- NOTE | 2017-09-07 05:19 | NUR ---
PATIENT'S NIGHT WAS UNEVENTFUL. HE HAS BEEN RESTING COMFORTABLY IN BED THROUGHOUT SHIFT, VSS, NO COMPLAINTS OF PAIN. REQUIRES 5L 02 VIA OXYMASK TO MAINTAIN O2 SATURATION >90%. HAS PICC TO LEFT ARM THAT IS HEPARIN LOCKED. 2PA TRANSFER WITH KENNEDY. NO ACUTE CHANGES FROM BEGINNING OF SHIFT.
--- NOTE | 2017-09-07 07:30 | NUR ---
This BAR STEWARD and Silvano assisted pt to chair with the alok lift. Linens changed, AM care done and face washed. pt used urinal and voided 180cc. Bedbath given at this time also.
--- NOTE | 2017-09-07 07:45 | NUR ---
PT GIVEN BED BATH, LINNENS CHANGED BY DOPE MAINTENANCE WORKER AND THIS RN. PT TRANSFERED FROM BED TO RECLINER WITH KENNEDY LIFT WITH 2 PERSON ASSIST.
--- NOTE | 2017-09-07 08:32 | NUR ---
SPEECH THERAPIST IN TO SEE PT. PT REMAINS DROWSY, BUT DID AROUSE TO VERBAL STIMULI. TOOK 1 BITE OF A PEACH. DRANK 100% OF A VANILLA ENSURE. TOOK AM MEDICATIONS. IN ROOM WITH PT. ENCOURAGED PT TO EAT MORE OF HIS BREAKFAST, PT REFUSED.
--- NOTE | 2017-09-07 10:14 | NUR ---
LET DR. ALFONSO KNOW THAT PATIENT WAS HYPOTENSIVE. I/O ARE ADEQUATE FOR LAST 4 HOURS. NO NEW TREATMENT ORDERED AT THIS TIME. PATIENT RESTING IN CHAIR. SPOUSE IN ROOM. PATIENT DENIES NEEDS AT THIS TIME.
--- NOTE | 2017-09-07 11:13 | NUR ---
PT SITTING UP IN RECLINER, AT SIDE. PT STILL DROWSY, BUT MORE ALERT THAN THIS AM. REMAINS ON 4L O2 VIA NC, OXYGEN SATURATION LEVEL 92%. PT DENIES PAIN, DENIES NEEDS AT THIS TIME.
--- NOTE | 2017-09-07 12:04 | NUR ---
PT SITTING UPRIGHT IN RECLINER, WORKING WITH OCCUPATIONAL THERAPIST.
--- NOTE | 2017-09-07 12:58 | NUR ---
PT ON BEDSIDE COMMODE, ASSISTED TO TRASFER TO BED WITH KENNEDY LIFT WITH 3 PERSON ASSIST. PT DECLINED FURTHER PO INTAKE FOR LUNCH, DID EAT YOGURT, DRANK CLEAR ENSURE. PT HAD A LARGE LOOSE BM, AND VOIDED LARGE AMOUNT OF URINE, UNMEASURED MIXED.
--- NOTE | 2017-09-07 13:42 | NUR ---
pt resting in bed with eyes closed at this time. pts is in room at his bedside.
--- NOTE | 2017-09-07 13:58 | NUR ---
PT SITTING IN CHAIR, COMPLAINING HE WOULD LIKE TO GET BACK TO BED. STAFF HAS PT IN CHAIR TO HELP WITH SKIN BREAKDOWN AND TO TRY AND KEEP HIM AWAKE SOME. HE STILL HAS HIS SENSE OF HUMOR THOUGH. AND OTHER FAMILY IN. GAVE BLESSING, WILL FOLLOW NEEDED
--- NOTE | 2017-09-07 14:11 | NUR ---
PT SLEEPING SOUNDLY, NO S/S DISTRESS OR DISCOMFORT. ON 4L O2 VIA NC. IN ROOM WITH PT.
--- NOTE | 2017-09-07 15:38 | NUR ---
PT WORKING WITH SPEECH THERAPIST. PT'S REQUESTED PUREED PEACHES AND MASHED POTATOES WITH BROWN GRAVY FOR PT'S DINNER, CALLED ORDER IN TO DIETARY. PROVIDED PT WITH FRESH ICE WATER. PT SITTING UPRIGHT IN BED.
--- NOTE | 2017-09-07 15:49 | NUR ---
PT UP TO RECLINER FOR SEVERAL HOURS THIS AM, FOR BREAKFAST, THROUGH LUNCH. AFTER LUNCH, PT HAD A LARGE LOOSE BM, THEN TRANSFERED TO BED. PT HAS DENIED PAIN. DRANK ENSURE FOR BREAKFAST AND LUNCH, DID EAT CUP OF YOGURT FOR BREAKFAST, REFUSED FOOD AT LUNCH. URINE OUTPUT QUANTITY SUFFICIENT. PT DROWSY TODAY, BUT MORE ALERT THAN YESTERDAY. REMAINS ORIENTED X 4. TRANSFERED WITH KENNEDY LIFT. DID ATTEMPT TRASFER WITH 2 PERSON, STAND PIVOT, WAS HEAVY TRANSFER. WORKED WITH SPEECH AND OCCUPATIONAL THERAPISTS TODAY.
--- NOTE | 2017-09-07 17:44 | NUR ---
PT SITTING UP IN BED, ATE 100% OF MASHED POTATOES AND PUREED PEACHES. IS NOW DRINKING VANILLA ENSURE. DENIES PAIN, DENIES NAUSEA.
--- NOTE | 2017-09-07 19:03 | NUR ---
RECEIVED REPORT FROM RN. PATIENT IS RESTING COMFORTABLY IN BED, BREATHING IS EVEN AND UNLABORED. O2 SATURATION IS 94% ON 4L O2 VIA HUMIDIFIED O2. DENIES NEEDS AT THIS TIME. CALL LIGHT WITHIN REACH.
--- NOTE | 2017-09-07 21:10 | NUR ---
PATIENT RESTING COMFORTABLY IN BED, BREATHING IS EVEN AND UNLABORED. O2 SATURATION IS 94% ON 4L O2 VIA HUMIDIFIED NC. PULSE IS 74. DENIES PAIN AT THIS TIME. NO OTHER NEEDS. ASSESSMENT DONE, VITALS, I&O DONE, MEDICATIONS GIVEN. CALL LIGHT WITHIN REACH.
--- NOTE | 2017-09-07 23:05 | NUR ---
PATIENT RESTING COMFORTABLY IN BED, BREATHING IS EVEN AND UNLABORED. O2 SATURATION IS 94% ON 4L O2, PULSE IS 72. DECREASED O2 TO 3L VIA NC. CALL LIGHT WITHIN REACH.
--- NOTE | 2017-09-08 00:32 | NUR ---
PATIENT RESTING COMFORTABLY IN BED, BREATHING IS EVEN AND UNLABORED. O2 SATURATION IS 88% ON 3L O2 VIA NC, TITRATED O2 TO 4L O2. WILL CONTINUE TO MONITOR. PATIENT DENIES NEEDS AT THIS TIME. CALL LIGHT WITHIN REACH.
--- NOTE | 2017-09-08 02:34 | NUR ---
PATIENT REPOSITIONED FOR COMFORT. PATIENT DENIES NEEDS AT THIS TIME. BREATHING IS EVEN AND UNLABORED. O2 SATURATION IS 92% ON 4L HUMIDIFIED O2 VIA NC. CALL LIGHT WITHIN REACH.
--- NOTE | 2017-09-08 04:42 | NUR ---
PATIENT RESTING COMFORTABLY IN BED, BREATHING IS EVEN AND UNLABORED. DENIES NEEDS AT THIS TIME. O2 SATURATION IS 91% ON 4L HUMIDIFIED O2 VIA NC, PULSE IS 75. CALL LIGHT WITHIN REACH.
--- NOTE | 2017-09-08 04:59 | NUR ---
PATIENT'S NIGHT WAS UNEVENTFUL. HE HAS BEEN RESTING COMFORTABLY IN BED THROUGHOUT SHIFT. VSS, REQUIRES 4L O2 VIA NC TO KEEP O2 SATURATION >90%. PATIENT IS 2PA/KENNEDY TRANSFER, PICC TO LEFT ARM IS HEPARIN LOCKED ,IV IN RIGHT ARM IS SALINE LOCKED. POOR APPETITE NOTED, TAKING ENSURES WELL. NO ACUTE CHANGES FROM BEGINNING OF SHIFT.
--- NOTE | 2017-09-08 06:41 | NUR ---
GOT PT A WARM BLANKET. ASKED IF HE NEEDED ANYTHING ELSE RIGHT NOW. HE SAID NO. HAD HIS CALL LIGHT ON HIS LAP WHEN I LEFT THE ROOM.
--- NOTE | 2017-09-08 07:00 | NUR ---
BEDSIDE HANDOFF REPORT RECEIVED FROM MEDICAL EQUIPMENT REPAIR TECHNICIAN RN. PT RESTING IN BED. PT DENIES NEEDS AT THIS TIME.
--- NOTE | 2017-09-08 08:13 | NUR ---
ORDERED PATIENT'S BREAKFAST. BRUSHED HIS DENTURES AND HE WASHED HIS FACE. NOW HE IS SLEEPING.
--- NOTE | 2017-09-08 08:59 | NUR ---
Pt resting in bed. occupational therapist at bedside, working to assist pt into shower. Pt on 4l nc, o2 sats 90%, lung sounds with rhonchi, encouraged cough and deep breathing. Bowel tones active, at small amount of breakfast. CMS intact, no edema noted. at bedside. Iv abx delayed for shower.
--- NOTE | 2017-09-08 10:14 | NUR ---
PT RESTING IN BED, COMPLETED WITH SHOWER. IV ABX INFUSING. PT DENIES NEEDS AT THIS TIME, AT BEDSIDE.
--- NOTE | 2017-09-08 11:30 | NUR ---
PT ASSISTED TO BEDSIDE COMMODE AND THEN TO CHAIR. IV LEVQUIN COMPLETED, IV SALINE LOCKED. PT EATING LUNCH. PT DENIES OTHER NEEDS AT THIS TIME.
--- NOTE | 2017-09-08 11:47 | NUR ---
PATIENT IS SITTING UP IN THE CHAIR EATING HIS LUNCH.
--- NOTE | 2017-09-08 11:49 | NUR ---
I HELPED THE OCCUPATIONAL THERAPIST KENNEDY HIM TO THE SHOWER CHAIR AND INTO THE SHOWER. AND SHE GAVE HIM THE SHOWER. ALL LINENS WERE CHANGED.
--- NOTE | 2017-09-08 14:51 | NUR ---
PT REPOSITIONED IN BED. IV MERREM INFUSING. PT DENIES NEEDS AT THIS TIME.
--- NOTE | 2017-09-08 18:43 | NUR ---
PT HAD UNEVENTFUL DAY. PT WORKED WITH PHYSICAL AND OCCUPATIONAL THERPAY, SHOWERED. PT ABLE TO STAND PIVOT WITH MAX ASSIST X2 AND FWW. PT UP TO COMMODE FOR MULTIPLE LOOSE STOOLS, HOLD MIRALAX. PT VOIDING QS, YELLOW URINE. ON 4L NC, PRODUCTIVE COUGH, LUNG SOUNDS WITH RHONCHI. INCREASED APPETITE BUT CONTINUES TO BE LOW OVERALL.
--- NOTE | 2017-09-08 19:05 | NUR ---
SHIFT REPORT RECIEVED. PATIENT RESTING IN BED. REPOSITIONED FOR COMFORT. PATIENT IS RESTING WITH EYES CLOSED. HE DENIES NEEDS. IV FLUIDS INFUSING AT TKO RATE. PERSONAL BELONGINGS IN REACH. CALL LIGHT IN REACH. O2 SAT 95% ON 3L NC.
--- NOTE | 2017-09-08 20:30 | NUR ---
IV ABX ADMINISTERED. PATIENT REPOSITIONED FOR COMFORT. MELCHOR CARE PROVIDED, INCONTINENT AT TIMES. BARRIER CREAM APPLIED TO COCCYX AND PATIENT TURNED TO LEFT SIDE. PATIENT IS DROSWEY, AROUSES TO VOICE AND TOUCH BUT FALLS ALSEEP AGAIN QUICKLY. PATIENT IS SNORING AND HAS CONGESTED BREATH SOUNDS. UPPER LOBES ARE CLEAR AND LOWER LOBES ARE DIMINISHED. PATIENT HAS PRODUCTIVE COUGH. ENCOURAGED COUGH AND DEEP BREATH, PATIENT PERFORMED ONCE. ABD IS MILDLY DISTENDED, TENDER, WITH ACTIVE BOWEL SOUNDS. STERI STRIPS ARE INPLACE ON LAP SITES, NO NEW DRAINAGE. SCDS AND HEEL PROTECTORS IN USE. IV FLUIDS RUNNING AT TKO RATE INTO PICC LINE. PATIENT IS ON 3L NC, O2 SAT 93%. PATIENT HAS CALL LIGHT IN HIS HAND AND PERSONAL BELONGINGS IN REACH.
--- NOTE | 2017-09-08 20:38 | NUR ---
MOVED PT UP IN BED AND GOT HIM CHANGED INTO A NEW DRY ATTEND WITH HIS RN.VITALS AND I&OS DONE. LEFT PT WITH BEDSIDE TABLE AND CALL LIGHT IN REACH. ASKED IF HE NEEDED ANYTHING AT THIS TIME? HE STATES NO.
--- NOTE | 2017-09-08 21:40 | NUR ---
PATIENT'S BLOOD PRESSURE WAS 104/43 WITH INITIAL VITAL SIGNS. HR 75. RETAKEN 30MINS LATER. FOUND TO BE 95/46 WITH HR 74.
--- NOTE | 2017-09-08 21:56 | NUR ---
REPORTED ABNORMAL BP REPORTED TO MD. EVENING METOPROLOL HELD. NO NEW ORDERS.
--- NOTE | 2017-09-08 22:55 | NUR ---
HELPED RN REPOSITION PT IN BED. PUT HIS HEEL PROTECTORS BACK ON. PT IS RESTING COMFORTABLE. CALL LIGHT AND BEDSIDE TABLE\ URINAL AT HIS REACH.
--- NOTE | 2017-09-08 22:59 | NUR ---
STERLING NEWTON AND THIS RN REPOSITIONED PATIENT UP IN THE BED AND TO THE RIGHT SIDE. HEEL PROTECTORS AND SCDS IN PLACE. 3L NC, O2 SAT 90%. PATIENT AROUSED TO VOICE BUT FELL ASLEEP AGAIN QUICKLY. BELONGINGS WITHIN REACH. CALL LIGHT IN PATIENTS HAND.
--- NOTE | 2017-09-08 23:56 | NUR ---
PATIENT REQUESTED ICE CREAM. ORANGE SHERBERT AND AN ENSURE WAS PROVIDED TO HIM. HOB ELEVATED TO 45 DEGREES. PATIENT APPEARS WEAK AND HIS HANDS TREMBLE WITH FINE MOTOR ACTIVITIES SUCH EATING. HE IS ABLE TO FEEL HIMSELF AND GRASP THE CUP TO DRINK. PATIENT APPEARS SOB WITH ANY ACTIVITY, INCLUDING DRINKING AND EATING. HE DENIES PAIN. HE IS SITTING UP IN THE BED WATCHING TV. CALL LIGHT IN REACH.
--- NOTE | 2017-09-09 00:30 | NUR ---
PATIENT REQUEST ASSISTANCE TO USE THE URNAL. THIS RN AND MAIL CARRIER TECHNICIAN ASSISTED PATIENT UP TO THE EDGE OF THE BED. HE USED THE URNAL AND THEN REQUESTED ASSITANCE TO THE RECLINER. 2PA TO STAND PIVOT TO THE RECLINER. THE PATIENT TOLERATED THIS WELL. SCDS IN PLACE. PICC LINE PULLED BACK BLOOD AND THEN WAS FLUSHED WITH 10ML NS. IV FLUIDS RUNNING AT TKO RATE. PATIENT ON 3L NC, PULSE OX. O2 SAT AFTER TRANSFER WAS 92%. PATIENT ENCOURAGED TO USE CPT AND IS, HE DID EACH X3. LIP BALM APPLIED TO PATIENT'S LIPS, THE SCAB ON HIS LIP WAS BLEEDING SLIGHTLY. PATIENT DENIES PAIN. PERSONAL BELONGINGS ARE WITHIN REACH. NO FURTHER NEEDS AT THIS TIME.
--- NOTE | 2017-09-09 00:59 | NUR ---
HELPED RN GET PT ON THE BEDSIDE COMMODE. HE WAS WOBBLY. PT HAD A VERY LARGE SOFT BM. VERY UNSTEADY GETTING FROM THE BEDSIDE COMMODE TO THE CHAIR. CALL LIGHT IN REACH.
--- NOTE | 2017-09-09 02:03 | NUR ---
B\P DONE PER PT RN. SHE WAS INFORMED OF LOW B\P. CHARTED IN VITALS SECTION. PT SITTING IN CHAIR PLAYING A HAND HELD GAME. CALL LIGHT AND BEDSIDE TABLE IN REACH. NO PAIN REPORTED.
--- NOTE | 2017-09-09 02:18 | NUR ---
ABX STARTED PER ORDER. PATIENT PERFORMED THE CPT THERAPY X5 AND IS X6. PATIENT REQUESTED TO GO BACK TO BED. TRANSFERED WITH 2 PERSON STAND PIVOT. PATIENT APPEARED SHAKEY AND TIRED BUT WAS ABLE TO MAKE IT TO THE BED. PATIENT POSITIONED ON HIS LEFT SIDE. PULSE OX, O2 SAT 94% ON 3L NC. HE DENIES PAIN. CHAP STICK APPLIED TO LIPS. WATER OFFERED. PATIENT RESTING, APPEARS COMFORTABLE. CALL LIGHT IN REACH.
--- NOTE | 2017-09-09 04:53 | NUR ---
PATIENT RESTED WELL THROUGHOUT SHIFT. NO PAIN. TOLERATED ORAL FLUIDS WELL. 3L NC, O2 SAT 90-94%. CONGESTED & PRODUCTIVE COUGH. HOB ELEVATED >30 DEGREES. TURN Q2H & PRN. SCDS & HEEL PROTECTORS. AFEBRILE DURING SHIFT. LARGE BM X1. PICC IN LEFT ARM, TKO FLUIDS. INCONTINENT AT TIMES WHEN SLEEPING, ATTEND IN PLACE. 2 PERSON STAND PIVOT TO RECLINER.
--- NOTE | 2017-09-09 06:10 | NUR ---
REPOSITIONED PATIENT. ATTEND CHANGED. TURNED TO LEFT SIDE. PATIENT DENIES PAIN. HOB ELEVATED. 3L NC, PULSE OX 94%. CHAP STICK APPLIED. PATIENT DENIES NEED FOR ORAL FLUIDS OR FOOD. CALL LIGHT IN REACH.
--- NOTE | 2017-09-09 06:11 | NUR ---
VITALS AND I&OS DONE. NOTIFIED RN OF B\P. PT IS SLEEPING WHEN I LEFT. BEDSIDE TABLE AND CALL LIGHT IN REACH.
--- NOTE | 2017-09-09 07:10 | NUR ---
BEDSIDE HANDOFF REPORT RECEIVED FROM BARREL RIFLER RN. PT RESTING IN BED. O2 SATS 94 % ON 3L. IV FLUIDS TKO. PT DENIES NEEDS AT THIS TIME.
--- NOTE | 2017-09-09 09:15 | NUR ---
PT RESTIN GIN BED. REQUESTING TO USE BEDSIDE COMMODE, 2PA WITH FWW. PT WITH SMALL LOOSE STOOL. TRANSFERED TO CHAIR. PT LUNG SOUNDS CLEAR, ON 3L NC, O2 SATS 93%. BOWEL TONES ACTIVE, TOLERATING REGUALR DIET, ENSURE WITH MEALS. CMS INTACT, NO EDEMA NOTED. LAP SITES X3 WITH STERISTRIPS IN PLACE, NO DRAINAGE NOTED. IV ABX INFUSING. RIGHT HAND IV FLUSHED, PATENT. PICC TO LEFT ARM. DISCUSSED PLAN OF CARE WITH PT AND FAMILY. PT DENIES NEEDS AT THIS TIME.
--- NOTE | 2017-09-09 11:42 | NUR ---
THIS MORNING PATIENT DIDN'T WANT BREAKFAST BUT HE CHANGED HIS MIND DO TO THE SPEECH THERAPIST CAME TO DO AN EVAULATION. ALSO THE DAUGHTER BROUGHT IN SOME BUTTER PECAN.
--- NOTE | 2017-09-09 11:49 | NUR ---
PT IN BED EATING LUNCH SLOWLY. WEANED TO 2L NC, CONTINUOUS PULSE OX IN PLACE. FAMILY AT BEDSIDE. PT DENIES OTHER NEEDS AT THIS TIME.
--- NOTE | 2017-09-09 12:32 | NUR ---
PATIENT IS RESTING AND WATCHING TV.
--- NOTE | 2017-09-09 13:05 | NUR ---
[facility] FAMILY MEMBERS IN ROOM WITH PT. PT AWAKE AND ACTUALLY TALKING WITH ME. STATES HE THINKS HE IS FEELING BETTER.
--- NOTE | 2017-09-09 14:34 | NUR ---
PT'S DAUGHTER IS CONCERNED ABOUT HER MOTHER CARING FOR PT AT HOME. PT'S SPOUSE VOCAL ABOUT NOT BEING READY TO HAVE PT HOME IN FRONT OF HIM. HIS BRO AND DAUGHTER BOTH FEEL SPOUSE IS HINDERING RECOVERY. DAUGHTER VERY POSITIVE. PT WELCOMED ME IN. HE DID WELL AMBULATING IN [place]. OTHER FAMILY IN, WISHED THEM A MERRY JEEVAN AND BLESSING. WILL FOLLOW NEEDED
--- NOTE | 2017-09-09 14:44 | NUR ---
HELPED NURSE GET PATIENT OF THE BSC AND BACK TO BED.
--- NOTE | 2017-09-09 14:45 | NUR ---
PT ASSISTED TO BEDSIDE COMMODE AND THEN TO BED. PICC LINE FLUSHED, PATENT, IV ABX INFUSING. PT DENIES NEEDS AT THIS TIME, REQUESTING TO REST.
--- NOTE | 2017-09-09 15:18 | NUR ---
CALLED PATIENTS BLOOD PRESSURE TO . WITH MAP OF 60. NO NEW ORDERS AT THIS TIME.
--- NOTE | 2017-09-09 16:55 | NUR ---
PT ASSISTED TO URINATE IN URINAL, PERICARE PREFORMED. PT REPOSITIONED IN BED. PT DENIES NEEDS AT THIS TIME.
--- NOTE | 2017-09-09 16:57 | NUR ---
PT HAD UNEVENTFUL DAY. PT WEANED TO 2L NC, O2 SATS 95%, LUNG SOUNDS CLEAR, ENCOURAGE I/S AND ACAPELLA. PT UP WITH 2PA WITH FWW, STRENGTH IMPROVING, AMBULATED IN [place] WITH PHYSICAL THERAPY. PT WITH BM TODAY, HELD MIRALAX. APPETITE INCREASED TODAY, DRINKING ENSURE WITH MEALS, PREFERS SOFT DIET. PICC LINE WITH NS TKO, MERREM. DENIES PAIN.
--- NOTE | 2017-09-09 19:00 | NUR ---
BEDSIDE REPORT RECEIVED FROM PENNY SOLANO. PT SLEEPING IN BED, SPO2 93% ON 1L O2, SCDS ON, IVF INFUSING AT 30 ML/HR TKO. PT HAS MEAL TRAY IN REACH, AWAKENS DURING REPORT, AND IMMEDIATELY BACK TO SLEEP. CALL LIGHT WITH PT.
--- NOTE | 2017-09-09 19:43 | NUR ---
PATIENT IN BED ASLEEP. WHITEBOARD UPDATED, ROOM TIDIED.
--- NOTE | 2017-09-09 20:17 | NUR ---
PT ASSESSMENT COMPLETE. PICC LINE WNL, BLOOD RETURN, FLUSHES EASILY. IV MERREM INFUSING AT THIS TIME. PT AWAKE, DROWSY, ORIENTED X 3. ASSISTED PT TO VOID IN URINAL AT SIDE OF BED, PT NOTABLY STRONGER FROM PREVIOUS SHIFT. COARSE COUGH PRESENT, BREATHING NON-LABORED, LUNGS CLEAR, PT SPO2 94% ON 1L NC AT THIS TIME. PT DENIES PAIN. CALL LIGHT IN REACH, SCDS ON. PT REQUESTED HEEL PROTECTORS OFF AT THIS TIME.
--- NOTE | 2017-09-09 22:40 | NUR ---
CHECKED ON PT, PT SLEEPING, EYES CLOSED, RR 22, SPO2 95% ON 1L NC. CALL LIGHT IN REACH.
--- NOTE | 2017-09-10 00:30 | NUR ---
PT SLEEPING AT THIS TIME, EYES CLOSED, VISIBLE CHEST RISE, BREATHING NON LABORED. IVF INFUSING TKO WNL. CALL LIGHT IN REACH.
--- NOTE | 2017-09-10 01:56 | NUR ---
PATIENT IN BED ASLEEP
--- NOTE | 2017-09-10 03:10 | NUR ---
IV ABX ADMINISTERED PER ORDER. PATIENT REPOSITIONED UP IN THE BED. ORAL CARE PROVIDED. SCAB ON LOWER LIP BLED SLIGHTLY, PRESSURE APPLIED. PATIENT RESTING IN BED WITH EYES CLOSED. RR18. CALL LIGHT IN REACH.
--- NOTE | 2017-09-10 03:29 | NUR ---
PT SLEEPING, SPO2 95% ON 1L OXYGEN BY NC. PT RIGHT ELBOW RED, PER PT REQUEST ADDED ALEVYN DRESSING FOR PADDING. DISCONTINUED IV IN RIGHT HAND PER POLICY. PT HAS CALL LIGHT IN REACH, BACK TO SLEEP.
--- NOTE | 2017-09-10 04:38 | NUR ---
SPO2 MONITOR ALARMING, PT LYING ON FINGER WITH PULSE OXIMETER, STRAIGHTENED FINGER, SPO2 95% ON 1L. PT SLEEPING, EYES CLOSED, LIGHTS OFF IN ROOM.
--- NOTE | 2017-09-10 05:31 | NUR ---
PT HAS SLEPT THROUGHOUT SHIFT, SATURATING IN 94-95% ON 1L NC. IV IN RIGHT HAND D/C'D THIS SHIFT. PT USING URINAL THROUGHOUT SHIFT. HAS HAD SCDS ON THROUGHOUT SHIFT, IV FLUID IN PICC LINE INFUSING TKO THROUGHOUT SHIFT, PICC LINE HAS GOOD BLOOD RETURN, FLUSHES WELL.
--- NOTE | 2017-09-10 06:40 | NUR ---
PT SLEEPING, AWAKENS TO VOICE TO SWALLOW PO REGLAN. PT DROWSY, BACK TO SLEEP. RR 14. CALL LIGHT IN REACH.
--- NOTE | 2017-09-10 07:00 | NUR ---
BEDSIDE HANDOFF REPORT RECEIVED FROM WORD PROCESSING MACHINE OPERATOR RN. PT SLEEPING, LEFT UNDISTURBED. IV INFUSING NS TKO. PT ON ROOM AIR.
--- NOTE | 2017-09-10 08:05 | NUR ---
Dr. Damon in to see pt at this time.
--- NOTE | 2017-09-10 08:41 | NUR ---
PT LAYING IN BED. BRIEFS PULLED DOWN, SLIGHTLY WET, PERICARE PERFORMED. PT ASSISTED TO CHAIR, SBA FOR STANDING, 1PA FOR WALKING. BREAKFAST AT BEDSIDE. PT LUNG SOUNDS CLEAR, WENAED TO ROOM AIR, CONTINUOUS PULSE OX IN PLACE. BOWLE TONES ACTIVE, DENIES NAUSEA. PT WITHOUT EDEMA, CMS INATCT. PT ALERT/ORIENTED X2 DISORIENTED TO DATE. PICC LINE FLUSHED, PATENT, BLOOD RETURNS, IV ABX INFUSING. PT DENIES PAIN. PT DENIES OTHER NEEDS AT THIS TIME, DISCUSSED PLAN OF CARE.
--- NOTE | 2017-09-10 10:25 | NUR ---
PT SLEEPING IN CHAIR. O2 SATS 97% ON ROOM AIR, LEFT UNDISTURBED, FAMILY AT BEDSIDE.
--- NOTE | 2017-09-10 10:40 | NUR ---
pt is resting in the recliner with eyes closed. ok by Priscilla to do vitals at 1400.
--- NOTE | 2017-09-10 10:56 | NUR ---
PT REPOSITIONED IN CHAIR. PROVIDED WITH FRESH WATER. DISCUSSED PLAN OF [place] FAMILY, DISCUSSED HEALING PROCESS. PT DENIES NEEDS AT THIS TIME.
--- NOTE | 2017-09-10 14:31 | NUR ---
IV ABX INFUSING. PICC LINE FLUSHED, PATENT, BLOOD RETURN. PT REPOSITIONED IN BED. SCDS AND HEEL PROTECTORS IN PLACE. PT WITH POOR APPETITE FOR LUNCH, ATE BANANA AND SHERBERT, DOES NOT WANT TO EAT SALMON OR MASHED POTATOES. PT REPOSITIONED IN BED. PT DENIES OTHER NEEDS AT THIS TIME.
--- NOTE | 2017-09-10 17:35 | NUR ---
PT FATIGUED TODAY. WORKED WITH PHYSCIAL THERAPY, STRENGTH IMPROVING, 1PA TO WALK SHORT DISTANCES. PT WEANED TO ROOM AIR, LUNG SOUNDS CLEAR. PT TOLERATING REGULAR DIET, POOR APPETITE, SUPPLEMENT WITH ENSURE. PT SHOWERED, PICC LINE DRESSING CHANGED. PICC LINE RUNNING TKO, MERREM. BOWEL TONES ACTIVE, DID NOT HAVE BM TODAY, VOIDING QS.
--- NOTE | 2017-09-10 17:36 | NUR ---
PT IS RESTING IN BED SAFELY WITH CALL LIGHT IN REACH. PT IS WORKING ON HIS DINNER. PT DID NOT NEED ANYTHING ELSE AT THE MOMENT
--- NOTE | 2017-09-10 19:17 | NUR ---
RECEIVED REPORT FROM RN. PATIENT IS RESTING COMFORTABLY IN BED, BREATHING IS EVEN AND UNLABORED. DENIES NEEDS AT THIS TIME. CALL LIGHT WITHIN REACH.
--- NOTE | 2017-09-10 21:45 | NUR ---
PATIENT RESTING COMFORTABLY IN BED, BREATHING IS EVEN AND UNLABORED. DENIES NEEDS AT THIS TIME. ASSESSMENT DONE. CALL LIGHT WITHIN REACH.
--- NOTE | 2017-09-10 23:26 | NUR ---
PATIENT RESTING COMFORTABLY IN BED, BREATHING IS EVEN AND UNLABORED ON ROOM AIR. CALL LIGHT WITHIN REACH.
--- NOTE | 2017-09-11 01:40 | NUR ---
PATIENT RESTING COMFORTABLY IN BED, BREATHING IS EVEN AND UNLABORED ON ROOM AIR. CALL LIGHT WITHIN REACH.
--- NOTE | 2017-09-11 02:07 | NUR ---
PATIENT RESTING COMFORTABLY IN BED, BREATHING IS EVEN AND UNLABORED ON ROOM AIR. DENIES NEEDS AT THIS TIME. CALL LIGHT WITHIN REACH.
--- NOTE | 2017-09-11 05:30 | NUR ---
PATIENT RESTING COMFORTABLY IN BED, BREATHING IS EVEN AND UNLABORED. CALL LIGHT WITHIN REACH.
--- NOTE | 2017-09-11 05:35 | NUR ---
PATIENT RESTING COMFORTABLY IN BED, BREATHING IS EVEN AND UNLABORED ON ROOM AIR. CALL LIGHT WITHIN REACH.
--- NOTE | 2017-09-11 05:36 | NUR ---
PATIENT'S NIGHT WAS UNEVENTFUL. HE HAS BEEN RESTING COMFORTABLY IN BED THROUGHOUT SHIFT. VSS, URINE OUTPUT QS. NO COMPLAINTS OF PAIN. AMBULATES WITH 1PA/FWW, INCONTINENT AT TIMES. PICC TO LEFT ARM IS TKO, FLUSHING WELL, GOOD BLOOD RETURN. TOLERATING REGULAR SOFT DIET, ENCOURAGE PO INTAKE HE STILL HAS POOR APPETITE. PATIENT TOLERATING ROOM AIR WELL WITH SATS REMAINING >90%, LUNGS ARE CLEAR. LAP SITES ARE C/D/I. NO ACUTE CHANGES FROM BEGINNING OF SHIFT.
--- NOTE | 2017-09-11 06:13 | NUR ---
PENNY JOSEPH AND I WEIGH THE PATIENT.
--- NOTE | 2017-09-11 07:01 | NUR ---
I ASKED PATIENT WHAT HE WANTS FOR BREAKFAST, HE STATED I JUST WANT TO REST.I CALLED THE KITCHEN THAT WHAT EVER HE HAD BREAKFAST IN PREVIOUS DAYS MAY BE ALRIGHT FOR HIM.
--- NOTE | 2017-09-11 07:22 | NUR ---
RECIEVED BEDSIDE REPORT FROM PENNY JOSEPH. PT SLEEPING SOUNDLY.
--- NOTE | 2017-09-11 08:09 | NUR ---
pt is sitting in bed eating breakfast at this time.
--- NOTE | 2017-09-11 08:51 | NUR ---
PT SITTING UP IN BED, EATING BREAKFAST. IS EATING BITES OF OATMEAL, ATE POACHED EGGS, AND IS DRINKING VANILLA ENSURE. DENIED PAIN OR DISCOMFORT.
--- NOTE | 2017-09-11 10:11 | NUR ---
checked on patient and was in room, i brought him some denture adhesive for his top teeth, to help them stick a little better, and he was finishing up his breakfast, and i emptied the urinal.
--- NOTE | 2017-09-11 10:30 | NUR ---
PT IN BED, AWAKE, ALERT, ORIENTED X 4. AT BEDSIDE. PT ATE 30% OF BREAKFAST, DRANK 100% OF VANILLA ENSURE, DRANK 100% OF MILK, WELL 100% OF COFFEE. DENIED PAIN, DENIED NAUSEA. DENIED NEEDS.
--- NOTE | 2017-09-11 11:04 | NUR ---
PT UP, AMBULATING IN HALLS WITH PHYSICAL THERAPIST, AMBULATED FROM HIS ROOM, 112 TO DOORWAY OF ROOM 110, THEN SAT IN W/C TO REST. IS NOW AMBULATING FROM DOORWAY TO ROOM 110, BACK DOWN HALLWAY TOWARDS HIS ROOM. TOLERANCE IS FAIR.
--- NOTE | 2017-09-11 11:15 | NUR ---
ASSISTED PHYSICAL THERAPY WITH A WHEEL CHAIR ASSIST AND THEN REFILLED PATIENTS WATER AND ENSURE CUP!
--- NOTE | 2017-09-11 13:51 | NUR ---
PT SITTING UP IN BED, RESTING QUIETL WITH EYES CLOSED. NO S/S DISTRESS OR DISCOMFORT NOTED.
--- NOTE | 2017-09-11 14:05 | NUR ---
pt resting in bed with eyes closed.
--- NOTE | 2017-09-11 16:53 | NUR ---
PT ALERT, ORIENTED X 4. SITTING UP IN BED, EATING DINNER. DENIED PAIN, DENIED NAUSEA.
--- NOTE | 2017-09-11 18:14 | NUR ---
PT DOING WELL, UP WITH FWW WITH 1 PERSON ASSIST. AMBULATED IN HALLS AND IN ROOM WITH PHYSICAL THERAPY, NURSING STAFF THIS SHIFT. STILL DROWSY AFTER EXERTION, BUT IMPROVED. TOLERATING A SMALL AMOUNT OF EACH MEAL, WELL MEAL SUPPLEMENT DRINKS WITH MEALS. STILL DRINKING FLUIDS WELL. CONTINENT OF URINE, USED URINAL THIS SHIFT. URINE OUTPUT QUANTITY SUFFICIENT. PICC TO LUE INTACT, HAS IVF INFUSING AT TKO WHEN MERREM NOT INFUSING. ORINETED X 4. LAP SITES TO ABDOMEN WNL.
--- NOTE | 2017-09-11 19:05 | NUR ---
RECEIVED REPORT FROM RN. PATIENT IS RESTING IN BED, BREATHING IS EVEN AND UNLABORED ON ROOM AIR. BOOSTED IN BED FOR COMFORT. PATIENT DENIES NEEDS AT THIS TIME. CALL LIGHT WITHIN REACH.
--- NOTE | 2017-09-11 21:07 | NUR ---
PATIENT RESTING IN BED, BREATHING IS EVEN AND UNLABORED. DURING ASSESSMENT, PATIENT REPORTS 6/10 PAIN IN NECK, PRN TYLENOL GIVEN PER EMAR. BOOSTED IN BED FOR COMFORT. DENIES FURTHER NEEDS AT THIS TIME. CALL LIGHT WITHIN REACH.
--- NOTE | 2017-09-11 23:22 | NUR ---
PATIENT RESTING COMFORTABLY IN BED, BREATHING IS EVEN AND UNLABORED ON ROOM AIR. FLACC SCORE OF 0. CALL LIGHT WITHIN REACH.
--- NOTE | 2017-09-12 00:58 | NUR ---
PATIENT RESTING COMFORTABLY IN BED, BREATHING IS EVEN AND UNLABORED ON ROOM AIR. FLACC SCORE OF 0. CALL LIGHT WITHIN REACH.
--- NOTE | 2017-09-12 02:30 | NUR ---
PREPARED 500 MG OF MERREM IN 100 ML NORMAL SALINE. DOUBLE VERIFIED BY SALOMÓN RN.
--- NOTE | 2017-09-12 03:19 | NUR ---
WEIGHED PATIENT ON STANDING SCALE. INTAKE & OUTPUT RECORDED.
--- NOTE | 2017-09-12 03:51 | NUR ---
PATIENT CALLED TO USE THE TOILET. 1 PERSON ASSIST WITH WALKER. OFFERED ENSURE, DRANK 240 ML. PATIENT IS BACK IN BED WATCHING TV. CALL LIGHT WITHIN REACH.
--- NOTE | 2017-09-12 04:00 | NUR ---
PATIENT RESTING COMFORTABLY IN BED, BREATHING EVEN AND UNLABORED. CALL LIGHT WITHIN REACH.
--- NOTE | 2017-09-12 05:25 | NUR ---
PATIENT'S NIGHT WAS UNEVENTFUL. HE HAS BEEN RESTING COMFORTABLY IN BED THROUGHOUT SHIFT. VSS, URINE OUTPUT QS. COMPLAINED OF 6/10 NECK PAIN, RESPONDED WELL TON PRN TYLENOL. LUNGS ARE CLEAR ON ROOM AIR, ALERT AND ORIENTED. 1PA WITH FWW, FATIGUES EASILY, MAY REQUIRES 2PA OR WHEELCHAIR IF AMBULATING OUTSIDE ROOM. PICC TO LEFT ARM IS TKO. TOLERATING REGULAR DIET, APPETITE REMAINS POOR, ENCOURAGE INTAKE AND ENSURES. NO ACUTE CHANGES FROM BEGINNING OF SHIFT ASSESSMENT.
--- NOTE | 2017-09-12 05:47 | NUR ---
PATIENT RESTING COMFORTABLY IN BED, BREATHING EVEN AND UNLABORED. CALL LIGHT WITHIN REACH.
--- NOTE | 2017-09-12 07:35 | NUR ---
RECIEVED REPORT FROM JAKE FRANCIS. PTSLEEPING IN ROOM.PIIC LINE LEFT UPPER ARM. FLUIDS @ 30ML/HR. NO INDICATIONS OF PAIN OR DISCOMFORT. CALL LIGHT WITHIN REACH.
--- NOTE | 2017-09-12 10:06 | NUR ---
PT UP WITH P[HYSICAL THERAPY. STARTED ANTIBIOTIC AND DID MORNING MED PASS. NO PAIN AT THIS TIME. URINAL WITHIN REACH. CALL LIGHT AT BEDSIDE WITHIN REACH. PERSONAL ITEMS WTIHIN REACH. PT NAPPING NOW. PLAN ON GETTING UP TO THE CHAIR FOR LUNCH.
--- NOTE | 2017-09-12 11:03 | NUR ---
PT IN BED AWAKE. AM CARE TOOK PT TO THE BR.
--- NOTE | 2017-09-12 12:40 | NUR ---
PATIENT IS SITTING UP IN CHAIR EATING HIS LUNCH.
--- NOTE | 2017-09-12 13:05 | NUR ---
PT BACK TO BED. NO PAIN OR DISCOMFORT. CALL LIGHT WITHIN REACH. PERSONAL ITEMS WITHIN REACH. URINAL WITHIN REACH.
--- NOTE | 2017-09-12 14:23 | NUR ---
HUNG ANTIBIOTIC. PT WATCHING TV. NO PAIN OR DISCOMFORT. PERSONAL ITEMS WITHING REACH. CALL LIGHT WITHING RREACH.
--- NOTE | 2017-09-12 15:38 | NUR ---
SHAVED PATIENT AND PUT LOTION ON HIS FACE.
--- NOTE | 2017-09-12 15:42 | NUR ---
PT TRYING TO GET OUT OF BED WITHOUT HELP. BED ALARM IN PLACE.
--- NOTE | 2017-09-12 17:45 | NUR ---
PT HAD A GOOD DAY. PICC SALINE LOCKED IN LEFT UPPER ARM. VSS. 1PA WITH FWW. DAILY WEIGHTS. PAIN 9/10 EARLIER. GAVE 2 NORCO @ 1140. REGULAR DIET. WALKED WITH PHYSICAL THERAPY ON STAIRS. SWING BE PT. RAJENDRA THROUGH . RA.
--- NOTE | 2017-09-12 18:27 | NUR ---
PT IN BED. GAVE HIM FRESH ICE WATER AND A BOOST IN BED.
--- NOTE | 2017-09-12 19:00 | NUR ---
RECEIVED REPORT FROM RN. PATIENT IS RESTING COMFORTABLY IN BED, BREATHING IS EVEN AND UNLABORED. CALL LIGHT WITHIN REACH.
--- NOTE | 2017-09-12 20:38 | NUR ---
V/S TAKEN BY PENNY JOSEPH. I & O DONE.
--- NOTE | 2017-09-12 20:46 | NUR ---
PATIENT RESTING IN BED, BREATHING IS EVEN AND UNLABORED. REPOSITIONED FOR COMFORT. DENIES NEEDS AT THIS TIME, NO PAIN. ASSESSMENT AND VITALS DONE, MEDICATIONS GIVEN. CALL LIGHT WITHIN REACH.
--- NOTE | 2017-09-12 22:11 | NUR ---
PATIENT RESTING COMFORTABLY IN BED, BREATHING IS EVEN AND UNLABORED. CALL LIGHT WITHIN REACH.
--- NOTE | 2017-09-13 | NUR ---
PATIENT RESTING COMFORTABLY IN BED, BREATHING IS EVEN AND UNLABORED. CALL LIGHT WITHIN REACH.
--- NOTE | 2017-09-13 02:06 | NUR ---
PATIENT CALLED, WENT TO THE ROOM PATIENT IS DANGLING (SITTING) BY THE BED STATING NEED TO GO TO SHOWER. TOOK TO THE BATHROOM CHANGED PULL UPS THEN TO CHAIR. CHANGED WET DRAW SHEETS. PATIENT IS BACK IN BED. CALL LIGHT WITHIN REACH.
--- NOTE | 2017-09-13 02:52 | NUR ---
DENTURES IN A SOAKING CONTAINER.
--- NOTE | 2017-09-13 04:10 | NUR ---
PATIENT RESTING COMFORTABLY IN BED, BREATHING IS EVEN AND UNLABORED. CALL LIGHT WITHIN REACH.
--- NOTE | 2017-09-13 05:02 | NUR ---
PATIENT'S NIGHT WAS UNEVENTFUL. HE HAS BEEN RESTING COMFORTABLY IN BED THROUGHOUT SHIFT. VSS, URINE OUTPUT QS. LUNGS REMAIN CLEAR, MAINTAINING O2 SATURATION >90% ON ROOM AIR. WORKING WITH PT, 1PA/FWW, MAY REQUIRE SECOND PERSON TO ASSIST WHEN WALKING OUTSIDE ROOM. PICC TO LEFT ARM IS TKO, FLUSHES EASILY AND HAS BLOOD RETURN. CONTINUES TO HAVE POOR APPETITE. NO COMPLAINTS OF PAIN THIS SHIFT. NO ACUTE CHANGES FROM BEGINNING OF SHIFT.
--- NOTE | 2017-09-13 05:42 | NUR ---
PATIENT RESTING COMFORTABLY IN BED, BREATHING IS EVEN AND UNLABORED. CALL LIGHT WITHIN REACH.
--- NOTE | 2017-09-13 06:22 | NUR ---
PATIENT RESTING COMFORTABLY IN BED, BREATHING EVEN AND UNLABORED. DENIES NEEDS AT THIS TIME. CALL LIGHT WITHIN REACH.
--- NOTE | 2017-09-13 07:28 | NUR ---
RECIEVED BEDSIDE REPORT FROM PENNY JOSEPH. PT SLEEPING SOUNDLY.
--- NOTE | 2017-09-13 08:23 | NUR ---
PT SITTING UPRIGHT IN BED. TOOK AM MEDICATIONS. AM ASSESMENT DONE. PT DENIED PAIN. ASSISTED TO ORDER BREAKFAST.
--- NOTE | 2017-09-13 08:39 | NUR ---
PT AWAKE IN BED. ORDERED BRK. AM CARE. PICKED UP ROOM. SET UP FOR BRK
--- NOTE | 2017-09-13 10:06 | NUR ---
MED REC COMPLETE WHEN PATIENT WAS INPATIENT STATUS.
--- NOTE | 2017-09-13 10:22 | NUR ---
OBSERVED PT GETTING UP OUT OF BED TO STANDING POSITION AND WALK WITH WALKER TO CHAIR FOR MEAL. PT BRODERICK WELL. DID NOTE REDNESS OF BOTH ELBOWS REPORTED FINDING TO MIKO BABCOCK RN TODAY. DISCUSSED WITH ABOUT HIS DC AND HOW HE WAS GOING TO GET INTO THE HOME WHEN THE TIME COMES, STATING THAT WE CAN HAVE PFD COME GET HIM INTO THE HOME A PUBLIC ASSIST. SHE WAS AGREEABLE TO THIS, TOLD HER DR CROWE WAS THINKING IN ABOUT 2 TO 3 MORE DAYS HE WILL BE READY FOR DC.
--- NOTE | 2017-09-13 11:08 | NUR ---
PT WORKING WITH Duy PURI IN THERAPY ROOM ON NU-STEP. PT TOLERATING WELL. DENIED PAIN. UP WITH FWW WITH 1 PERSON ASSIST. FOLLOWING WORK IN THERAPY ROOM, PT AMBULATED BACK TO ROOM, SAT UP IN RECLINER.
--- NOTE | 2017-09-13 12:56 | NUR ---
PT SLEEPING IN BED. TOOK LUNCH TRAY.
--- NOTE | 2017-09-13 13:55 | NUR ---
PT WAS ASLEEP, BUT HIS WAS IN RM. HAD GOOD VISIT, SHE WAS SURPRISED WITH PT'S IMPROVED STRENGTH. SHE STAYED HOME YESTERDAY, BUT HAD A FRIEND DRIVE HER TODAY. SHE THINKS SHE MIGHT BE ABLE TO CARE FOR HIM AT HOME WITH IN HOME CARE INSTEAD OF PLACING HIM IN A FACILITY. COMING BACK AND FORTH SEEMS TO BE TAKING A TOLL ON HER. WILL CONTINUE TO FOLLOW NEEDED
--- NOTE | 2017-09-13 13:57 | NUR ---
PT SITTING UP IN RECLINER, RESTING WITH EYES CLOSED, AROUSED TO VERBAL STIMULI. DENIED PAIN. DENIED NEEDS. PERSONAL SUPPLIES AND CALL BUTTON IN REACH. PT VOIDED 300 CC CLEAR YELLOW URINE IN URINAL. MADINA, PHYSICAL THERAPIST NOW IN ROOM TO WORK WITH PT.
[2017-09-13] MEDS ORDERED: METOPROLOL SUCC25 MG PO (15:01)
[2017-09-13] MEDS ORDERED: TORSEMIDE5 MG PO (15:02)
[2017-09-13] MEDS ORDERED: MIRALAX17 GM PO (15:02)
[2017-09-13] MEDS ORDERED: KLOR-CON 1010 MEQ PO (15:02)
[2017-09-13] MEDS ORDERED: MAG-OXIDE400 MG PO (15:02)
[2017-09-13] MEDS ORDERED: THERA TABLET400 MCG PO (15:03)
[2017-09-13] MEDS ORDERED: VITAMIN D1000 UNI1 PO (15:03)
--- NOTE | 2017-09-13 15:21 | NUR ---
PT IN BED, RESTING QUIETLY. AROUSED TO VERBAL STIMULI, ORIENTED X 4. DENIED PAIN. AT BEDSIDE. NEW IVF AND TUBING HUNG. HAS MERREM IV INFUSING ORDERED.
--- NOTE | 2017-09-13 15:57 | NUR ---
PROJECT CONTROL ANALYST ROOM. ORDERED DINNER. TOOK TO THE BR
--- NOTE | 2017-09-13 16:52 | NUR ---
PT IN BED SLEEPING. WILL CHECK BACK ON LATER.
--- NOTE | 2017-09-13 18:31 | NUR ---
PT ATE 75% OF DINNER, DRANK 100% OF APPLE ENSURE. DENIED PAIN, DENIED NEEDS. ASSISTED PT TO POSITION IN BED FOR COMFORT.
--- NOTE | 2017-09-13 18:36 | NUR ---
TOOK PT VITALS
--- NOTE | 2017-09-13 18:46 | NUR ---
PT RESTING QUIETLY, NO S/S DISTRESS OR DISCOMFORT.
--- NOTE | 2017-09-13 19:05 | NUR ---
RECEIVED REPORT FROM RN, PATIENT IS RESTING COMFORTABLY IN BED, BREATHING IS EVEN AND UNLABORED. CALL LIGHT WITHIN REACH.
--- NOTE | 2017-09-13 20:55 | NUR ---
PATIENT RESTING IN BED, BREATHING IS EVEN AND UNLABORED ON ROOM AIR. REPOSITIONED FOR COMFORT, ATTENDS CHANGED. PATIENT'S GROIN NOTED TO BE EXCORIATED. BARRIER WIPES USED FOR MELCHOR CARE, BARRIER CREAM APPLIED. WILL MONITOR CLOSELY. ASSESSMENT DONE, MEDICATIONS GIVEN. DENIES PAIN AT THIS TIME. CALL LIGHT WITHIN REACH.
--- NOTE | 2017-09-13 22:47 | NUR ---
PATIENT RESTING COMFORTABLY IN BED, BREATHING IS EVEN AND UNLABORED. CALL LIGHT WITHIN REACH.
--- NOTE | 2017-09-13 23:49 | NUR ---
PATIENT RESTING COMFORTABLY IN BED, BREATHING IS EVEN AND UNLABORED. CALL LIGHT WITHIN REACH.
--- NOTE | 2017-09-14 02:02 | NUR ---
PATIENT RESTING COMFORTABLY IN BED, BREATHING IS EVEN AND UNLABORED. CALL LIGHT WITHIN REACH.
--- NOTE | 2017-09-14 04:46 | NUR ---
PATIENT RESTING COMFORTABLY IN BED, BREATHING IS EVEN AND UNLABORED. DAILY WEIGHT DONE, ATTENDS CHANGED, REPOSITIONED FOR COMFORT. DENIES NEEDS AT THIS TIME. CALL LIGHT WITHIN REACH.
--- NOTE | 2017-09-14 05:04 | NUR ---
PATIENT'S NIGHT WAS UNEVENTFUL. HE HAS BEEN RESTING COMFORTABLY IN BED THROUGHOUT SHIFT. VSS, URINE OUTPUT QS. NO COMPLAINTS OF PAIN. ALERT AND ORIENTED, LUNGS ARE CLEAR. LAST BM WAS 09/13, BOWEL TONES ARE ACTIVE. PATIENT HAS DRIBBLING OF URINE AT TIMES, ATTENDS IN PLACE, FREQUENT CHECKS NEEDED. GROIN WAS EXCORIATED AT BEGINNING OF SHIFT, BARRIER CREAM APPLIED. WILL NEED TO MONITOR SKIN CONDITION CLOSELY. PATIENT IS WEAK WITH 1PA/FWW. PICC TO LEFT ARM IS TKO, FLUSHING WELL, HAS BLOOD RETURN. TOLERATING REGULAR DIET, APPETITE IS IMPROVING. NO ACUTE CHANGES FROM BEGINNING OF SHIFT.
--- NOTE | 2017-09-14 06:24 | NUR ---
PATIENT RESTING COMFORTABLY IN BED, BREATHING IS EVEN AND UNLABORED. CALL LIGHT WITHIN REACH.
--- NOTE | 2017-09-14 07:25 | NUR ---
REPORT FROM PENNY JOSEPH. PT APPEARS TO BE ASLEEP. IV INFUSING.
--- NOTE | 2017-09-14 09:49 | NUR ---
FAMILY CARE CONFERENCE. YELENA LEAD AND ANSWERED ALL FAMILY QUESTIONS. NUTRITION ADVISED ON FOOD CHOICES AND ADDING ENSURE. MADINA IN TO WORK WITH PATIENT, SL FOR EASE OF WALKING. PT TO BE DISCHARGED HOME TODAY WITH HOME HEALTH AND FAMILY.
--- NOTE | 2017-09-14 10:00 | NUR ---
PT WALKING IN [place] WITH PHYS. THER.
--- NOTE | 2017-09-14 10:17 | NUR ---
PARTICIPATED IN CARE CONFERENCE THIS MORNING. PATIENT GOING HOME WITH . DAUGHTER LIVES IN [facility] BUT IS HERE TO HELP FOR A FEW DAYS. MY PART WAS TO ENCOURAGE HAVING EASY TO GET, HEALTHY SNACKS AVAILABLE FOR THE PATIENT. FOR EXAMPLE, HARD BOILED EGGS, YOGURT, COTTAGE CHEESE AND FRUIT, 1/2 PEANUT BUTTER SANDWICH, ETC. HE LIKES BUTTER PECAN ENSURE AND THAT IS ALSO A GOOD THING TO CONTINUE WHILE HE WORKING ON BUILDING HIS STRENGTH. HIS DIET PLAN MAY BE ALTERED AFTER HE SEES DR. COTTRELL AT [facility] ON TUESDAY. IN THE MEANTIME, CONTINUE WITH REGULAR, SOFT FOODS AND ENSURE BETWEEN MEALS. HIS TOP DENTURES ARE LOOSE DUE TO WEIGHT LOSS OVER THE PAST 2 YEARS.
--- NOTE | 2017-09-14 10:43 | NUR ---
CHECKED ON PT. APPEARS TO BE SLEEPING IN BED. FAMILY HAS GONE HOME TO PREPARE.
--- NOTE | 2017-09-14 10:48 | NUR ---
pts vitals taken at this time. pt refused a shower because he is going home. pt assisted to the chair and dressed in regular clothes.
--- NOTE | 2017-09-14 10:53 | NUR ---
PT DAUGHTER BACK IN ROOM WITH SHOES AND JACKET FOR PT.
--- NOTE | 2017-09-14 11:32 | NUR ---
FAXED CHART NOTES TO [facility] INCLUDING FACESHEET, H AND P, DC SUMMARY, PT,OT, AND ST EVALS AND NOTES FOR THE LAST 3 DAYS. TALKED TO BELLE IN HH
--- NOTE | 2017-09-14 12:08 | NUR ---
PT EDUCATION GIVEN TO PT AND PT'S DAUGTER. DAUGHTER VEBALIZED UNDERSTANDING. CHIP LUNA ALSO PROVIDED MEDICATION EDUCATION. PICC REMOVED WNL. PRESSURE AND OCCLUSIVE DRESSING APPLIED. INSTRUCTED DAUGHTER ON MONITORING OF SITE AND INSTRUCTIONS FOR KEEPING DRESSING IN PLACE. WHEELED OUT TO CAR. BELONGINGS RETURNED.
--- NOTE | 2017-09-14 13:26 | NUR ---
PT WAS UP WALKING WITH P.T. IN PREP FOR DC TODAY. HE SEEMED EXCITED, HIS DAUGHTER WALKING BEHIND. PT IS STRONGER, AND SEEMS EXCITED TO RETURN HOME.
--- NOTE | 2017-09-16 11:57 | NUR ---
WAS ASKED BY RESIDENTIAL SALES CONSULTANT AMBER TO CALL PATIENTS DAUGHTER BELLE SHE HAS A QUESTION REGARDING EQUIPMENT THEY NEEDED AT DISCHARGE. CALLED BELLE AT [phone]. SHE STATES THEY WERE SUPPOSED TO MANA[employer] [facility] A SHOWER CHAIR TO "BORROW" FOR THREE MONTHS BUT WHEN SHE WENT TO IN-HOME MEDICAL THEY DID NOT KNOW ABOUT IT. DID NOT FIND ANYTHING IN THE CHART REGARDING WHO SET THIS UP, SHE DID NOT REMEMBER THE NAME OF THE STAFF THAT TOLD HER THIS. I DID SUGGEST SHE CALL [facility] [employer] THEY ARE THE LOCAL PLACE THAT LOANS MEDICAL EQUIPMENT. I GAVE HER THAT NUMBER. SHE STATED THEY ARE IN [place] FOR HER DAD'S APPOINTMENT AT [facility] AT 1:30PM THEN THEY WILL BE COMING HOME. SHE HAD NO OTHER QUESTIONS OR CONCERNS AT THIS TIME.
== END 2017-09-14 11:55 | disposition home or self-care (01) | DRG 871 ==
LOC: MS 10:55
PROVIDERS: ADMIT Internal Medicine
DX: A41.51 Sepsis due to Escherichia coli [E. coli] (principal); R65.21 Severe sepsis with septic shock; J18.9 Pneumonia, unspecified organism; J96.01 Acute respiratory failure with hypoxia; G93.41 Metabolic encephalopathy; K80.00 Calculus of gallbladder with acute cholecystitis without obstruction; I47.1 Supraventricular tachycardia; J98.11 Atelectasis; Z16.12 Extended spectrum beta lactamase (ESBL) resistance; E55.9 Vitamin D deficiency, unspecified; I11.0 Hypertensive heart disease with heart failure; I50.9 Heart failure, unspecified; F39 Unspecified mood [affective] disorder; E87.8 Other disorders of electrolyte and fluid balance, not elsewhere classified; T36.8X5A Adverse effect of other systemic antibiotics, initial encounter; Z66 Do not resuscitate; Z85.028 Personal history of other malignant neoplasm of stomach; I25.10 Atherosclerotic heart disease of native coronary artery without angina pectoris
CPT/HCPCS: 36415; 80053; 92526; 94668; 94762; 97110; 97116; 97162; 97165; 97530; 97535; J1652; J1956; J2185

== ENCOUNTER 2019-01-12 13:30 | Emergency (ER) | payer MEDICARE ==
[~2019-01-12] VITALS: Ht 180.3 cm; Wt 77.1 kg
--- OUTSIDE RECORDS SUMMARY | ~2019-01-12 | XMS | Encounter Summary ---
Demographics + + + | Address | [address] | | | [place] [address] | + + + | Home Phone | | + + + | Preferred Language | Unknown | + + + | Marital Status | | + + + | Confucianism Affiliation | Unknown | + + + | Race | Unknown | + + + | Ethnic Group | Unknown | + + + Author + + + | Author | [facility] | | | and Tobyana | + + + | Organization | [facility] | | | and [place] | + + + | Address | Unknown | + + + | Phone | Unavailable | + + + Support + + + + + | Name | Relationship | Address | Phone | + + + + + | Selena Jimenez | ECON | [id number] | | | | | [place] [address] | | + + + + + Care Team Providers + +------+ + | Care Shellfish Sorter Name | Role | Phone | + +------+ + | David Ferrera MD | PCP | | + +------+ + Reason for Visit + + + | Reason | Comments | + + + | Lab Order | Pt due for labs prior to appt. | + + + Encounter Details +--------+ + + + + | Date | Type | Department | Care Team | Description | +--------+ + + + + | 11/01/ | Telephone | [facility] | Bernice Antonio, | Lab Order (Pt due | | 2019 | | CARDIOLOGY [address] | for labs prior to | | | | [address] [place], | [place], | appt. ) | | | | [place] [address] | [place] [address] | | | | | [phone] | [phone] | | | | | | | [...] [address] | | | | | | [address], | | | | | | [place] [address] | | | | | | [phone] | | | | | | | | +--------+---------+ + + + + +--------+ + + | Name | Priori | Associated Diagnoses | Order Schedule | | | ty | | | + +--------+ + + | Lipid Panel | Routin | Essential | Expected: | | | e | hypertension | 11/01/2018, Expires: | | | | Coronary artery | 11/01/2019 | | | | disease, angina | | | | | presence | | | | | unspecified, | | | | | unspecified vessel | | | | | or lesion type, | | | | | unspecified whether | | | | | igiugig or | | | | | transplanted heart | | | | | Mixed hyperlipidemia | | + +--------+ + + | Comprehensive Metabolic Panel | Routin | Essential | Expected: | | | e | hypertension | 11/01/2018, Expires: | | | | Coronary artery | 11/01/2019 | | | | disease, angina | | | | | presence | | | | | unspecified, | | | | | unspecified vessel | | | | | or lesion type, | | | | | unspecified whether | | | | | igiug[place] or | | | | | transplanted heart | | | | | Mixed hyperlipidemia | | + +--------+ + + | CBC with Differential | Routin | Essential | Expected: | | | e | hypertension | 11/01/2018, Expires: | | | | Coronary artery | 11/01/2019 | | | | disease, angina | | | | | presence | | | | | unspecified, | | | | | unspecified vessel | | | | | or lesion type, | | | | | unspecified whether | | | | | igiug[place] or | | | | | transplanted heart | | | | | Mixed hyperlipidemia | | + +--------+ + + documented as of this encounter Visit Diagnoses + + | Diagnosis | + + | Essential hypertension - Primary Unspecified essential hypertension | + + | Coronary artery disease, angina presence unspecified, unspecified vessel or lesion | | type, unspecified whether igiug[place] or transplanted heart | + + | Mixed hyperlipidemia | + + documented in this encounter"
--- OUTSIDE RECORDS SUMMARY | ~2019-01-12 | XMS | Encounter Summary ---
Demographics + + + | Address | [address] | | | [place] [address] | + + + | Home Phone | | + + + | Preferred Language | Unknown | + + + | Marital Status | | + + + | Gnosticist Affiliation | Unknown | + + + | Race | Unknown | + + + | Ethnic Group | Unknown | + + + Author + + + | Author | [facility] | | | and Tobyana | + + + | Organization | [facility] | | | | | [place] [address] | | + + + + + Care Team Providers + +------+ + | Care Supervisor Winding Department Name | Role | Phone | + [...] + | 11/01/ | Telephone | [facility] | Bernice Antonio, | Lab Order (Pt due | | 2019 | | CARDIOLOGY [address] | [address] [place] | for labs prior to | | | | [place], | [place], | appt. ) | | | | [place] [address] | [place] [address] | | | | | [phone] | [phone] | | | | | | | [...] [place], | | | | | | [place] [address] | | | | | | [phone] | | | | | | | [...] unspecified whether | | | | | [place] or | | | | | transplanted [...] unspecified whether | | | | | [place] or | | | | | transplanted [...] unspecified whether | | | | | [place] or | | | | | transplanted heart | | | | | Mixed hyperlipidemia | | + +--------+ + + documented as of this encounter Visit Diagnoses + + | Diagnosis | + + | Essential hypertension - Primary Unspecified essential hypertension | + + | Coronary artery disease, angina presence unspecified, unspecified vessel or lesion | | type, unspecified whether [place] or transplanted heart | + + | Mixed hyperlipidemia | + + documented in this encounter"
--- OUTSIDE RECORDS SUMMARY | ~2019-01-12 | XMS | Encounter Summary ---
Demographics + + + | Address | [address] | | | [place] [address] | + + + | Home Phone | | + + + | Preferred Language | Unknown | + + + | Marital Status | | + + + | Rastafari Affiliation | Unknown | + + + | Race | Unknown | + + + | Ethnic Group | Unknown | + + + Author + + + | Author | [facility] | | | and Tobyana | + + + | Organization | [facility] | | | and Tobyana | + + + | Address | Unknown | + + + | Phone | Unavailable | + + + Support + + + + + | Name | Relationship | Address | Phone | + + + + + | Selena Jimenez | ECON | [address] | | | | | [place] [address] | | + + + + + Care Team Providers + +------+ + | Care Grinding Wheel Facer Name | Role | Phone | + [...] | CARDIOLOGY [address] | MD [address] [place] | | | | | [place], | [place], | | | | | [place] [address] | [place] [address] | | | | | [phone] | [phone] | | | | | | | [...] | 11/08/ | Office | Cardiology | CiaranbetzaidaconcettaBernice, | | | 2019 | Visit | | MD Liliana Hernandez | | | | | | [place], | | | | | | [place] [address] | | | | | | [phone] | | | | | | | | +--------+---------+ + + + documented as of this encounter Visit Diagnoses Not on filedocumented in this encounter"
--- OUTSIDE RECORDS SUMMARY | ~2019-01-12 | XMS | Clinical Summary ---
Demographics + + + | Address | [address] | | | [place] [address] | + + + | Home Phone | | + + + | Preferred Language | Unknown | + + + | Marital Status | | + + + | Episcopal Affiliation | NON | + + + | Race | White | + + + | Ethnic Group | Not or | + + + Author + + + | Author | [facility] | + + + | Organization | [facility] | + + + | Address | Unknown | + + + | Phone | Unavailable | + + + Support + + + + + | Name | Relationship | Address | Phone | + + + + + | Junaid Meredith | DOUG | [address] | | | | | [place] | | | | | [address] | | + + + + + | Ronny Rene | ECON | Unknown | | + + + + + | Char Woodard | ECON | Unknown | | + + + + + Care Team Providers + +------+ + | Care Alarm Technician Name | Role | Phone | + +------+ + | Deondre Landis MD | PP | | + +------+ + Source Comments GONSALO is fully live on both EpicCare Ambulatory and EpicCare InPatient[facility] Allergies + + + + + + [...] | 07/2 | | Activ | | oral tablet [...] | | + + + +---------+------+------+-------+ | metoprolol | Take 25 mg by mouth | | | | | Activ | | tartrate 25 mg oral | once daily at | | | | | e | | tablet | bedtime. | | | | | | + + + +---------+------+------+-------+ | aspirin chewable | Chew and swallow 81 | | | 07/2 | | Activ | | (CHILDRENS ASPIRIN) | mg once daily. | | | 0/20 | | e | | 81 mg oral | | | | 15 | | | | tablet,chewable | | | | | | | + + + +---------+------+------+-------+ | escitalopram | Take 10 mg by mouth | | | 12/0 | | Activ | | oxalate 10 mg oral | once daily. | | | 720 | | e | | tablet | | | | 17 | | | + + + +---------+------+------+-------+ | metoclopramide HCl | Take 10 mg by mouth | | | 11/2 | | Activ | | 10 mg oral tablet | three times daily | | | 7/20 | | e | | | before meals. | | | 17 | | | + + + +---------+------+------+-------+ | cholecalciferol | Take 1,000 Units by | | | | | Activ | | (Vitamin D3) | mouth once daily. | | | | | e | | (VITAMIN D3) 1,000 | | | | | | | | unit oral tablet | | | | | | | + + + +---------+------+------+-------+ | polyethylene | Mix 17 g in liquid | | | | | Activ | | glycol 17 gram/dose | and drink once daily | | | | | e | | oral powder | as needed. | | | | | | + + + +---------+------+------+-------+ | torsemide 5 mg | Take 5 mg by mouth | | | | | Activ | | oral tablet | once daily. | | | | | e | + + + +---------+------+------+-------+ | magnesium oxide | Take 400 mg by mouth | | | | | Activ | | 400 mg oral tablet | once daily. | | | | | e | + + + +---------+------+------+-------+ | multivitamin with | Take 400 mcg by | | | | | Activ | | folic acid 400 mcg | mouth once daily. | | | | | e | | oral tablet | | | | | | | + + + +---------+------+------+-------+ | pravastatin 40 mg | Take 40 mg by mouth | | | | | Activ | | oral tablet | once daily. | | | | | e | + + + +---------+------+------+-------+ | levoFLOXacin 750 | Take 1 tablet by | 14 | 0 | 08/20 | | Activ | | mg oral | mouth once daily. | tablet | | 06/08 | | e | | tabletIndications: | Indications: | | | 17 | | | | intra-abdominal | abdominal infection | | | | | | | infection | | | | | | | + + + +---------+------+------+-------+ | omeprazole 40 mg | Take 1 capsule by | 30 | 3 | 01/2 | | Activ | | oral capsule,delayed | mouth once daily. | capsule | | 12/06 | | e | | | | | | 18 | | | | release(DR/EC)Indica | | [...] 04/04/2015 | + + + | hx [place] (myocardial infarction) | 04/04/2015 | + + [...] | Dysphagia | | + + + Family History + + +------+ + | Medical History | Relation | Name | Comments | + + +------+ + | Anesthesia | Neg Hx | | | + + +------+ + | Blood Disease | Neg Hx | | | + + +------+ + Social History + + + +--------+ [...] + + + | Blood Pressure | 134/85 | 05/05/2018 8:55 AM PDT | + + + + | Pulse | 77 | 05/05/2018 8:55 AM PDT | + + + + | Temperature | 36.6 C (97.8 F) | 05/05/2018 8:55 AM PDT | + + + + | Respiratory Rate | 15 | 05/05/2018 8:55 AM PDT | + + + + | Oxygen Saturation | 98% | 09/16/2017 2:04 PM PST | + + + + | Inhaled Oxygen | - | - | | Concentration | | | + + + + | Weight | 72.4 kg (159 lb 9.6 | 05/05/2018 8:55 AM PDT | | | oz) | | + + + + | Height | 175.3 cm (5' 9") | 05/05/2018 8:55 AM PDT | + + + + | Body Mass Index | 23.57 | 05/05/2018 8:55 AM PDT | + + + + Plan of Treatment + + + + + | Health Maintenance | Due Date | Last Done | Comments | + + + + + | Pneumococcal (Adult) | | | | | (1 of 2 - PCV13) | 7 | | | + + + + + | Influenza (Flu) | | 07/13/2017 | | | vaccination (#1) | 8 | | | + + + + [...] / Lot | + +------+--------+ +--------+--------+--------+ | [place]led[place] Ptfe 2.5cm X | | N/A: | BARD | | 11/16/ | [id number] | | 15cm - [id number]: Qty: | | Abdome | | | 2020 | | | 1 on 03/27/2015 by Raffy, | | n | | | | /[id number] | | MD Vijay | | | | | | 6 | | | | | | | | /[id number] | | | | | | | | 269 | + +------+--------+ +--------+--------+--------+ Results Not on filefrom Last 3 Months Insurance + +--------+ +--------+ + + | Payer | Benefi | Subscriber | Type | Phone | Address | | | t Plan | ID | | | | | | / | | | | | | | Group | | | | | + +--------+ +--------+ + + | MEDICARE | MEDICA | xxxxxxxxxx | Medica | [phone] [address] | | | RE A & | | re | [phone] | [place] [address] | | | B | | | | | + +--------+ +--------+ + + | COMMERCIAL GROUP | COMMER | xxxxxxxxxx | Indemn | | | | | CIAL | | ity | | | | | GROUP | | | | | + +--------+ +--------+ + + + +--------+ +--------+ + + | Guarantor Name | Accoun | Relation to | Date | Phone | Billing Address | | | t Type | Patient | of | | | | | | | | | | + +--------+ +--------+ + + | JUNAID MEREDITH | Person | Self [birth year] Home: | [address] | | | al/Fam | | 1940 | [phone] | [place] [address] | | | [place] | | | [address] | | + +--------+ +--------+ + +
--- OUTSIDE RECORDS SUMMARY | ~2019-01-12 | XMS | Encounter Summary ---
Demographics + + + | Address | [address] | | | [place] [address] | + + + | Home Phone | | + + + | Preferred Language | Unknown | + + + | Marital Status | | + + + | Yazidism Affiliation | Unknown | + + + | Race | Unknown | + + + | Ethnic Group | Unknown | + + + Author + + + | Author | [facility] | | | and Tobyana | + + + | Organization | [facility] | | | and [place] | + + + | Address | Unknown | + + + | Phone | Unavailable | + + + Support + + + + + | Name | Relationship | Address | Phone | + + + + + | Selena Jimenez | ECON | [id number] | | | | | [place] [address] | | + + + + + Care Team Providers + +------+ + | Care Solution Director Name | Role | Phone | [...] + + | 11/07/ | Office | [facility] | Ciaransiaisabella Siaciaran, | Coronary artery | | 2019 | Visit | CARDIOLOGY [address] | [address] [place] | disease, angina | | | | [place], | [place], | presence | | | | [place] [address] | [place] [address] | unspecified, | | | | [phone] | [phone] | unspecified vessel | | | | | | or lesion type, | | | | | | unspecified whether | | | | | | [place] or | | | | | | [...] RESULTS reviewed during visit today primarily from [facility]: LIPID Lab Results Component Value Date CHOL [...] He is in a class I of [place] [employer] funct ional class. There is [...] today. A. Patient underwent a esophagectomy at [facility] on 03/27/15. He was to ld [...] reviewed and edited this note. Char Hermosillo, Riveting Machine Operator Automatic 11/07/2018 I, Paulo Antonio MD, personally performed the services described in this documentation, as scribed in my presence and it is both accurate and complete. Char Hermosillo, Med Ass t 11/07/2018 9:18 Electronically signed by: Paulo Antonio MD [facility] 11/07/2018 Portions of this chart may have been created with [employer] voice recognition software. Occasi onal wrong-word or [...] [place], | | | | | | [place] [address] | | | | | | [phone] | | | | | | | [...] whether | | | | | | [place] or | | | | | | [...] MD | | | | | | ([id number]) on 11/07/2018 | | | | | [...] or lesion | | type, unspecified whether [place] or transplanted heart - Primary | + + documented in this encounter
--- OUTSIDE RECORDS SUMMARY | ~2019-01-12 | XMS | Encounter Summary ---
Demographics + + + | Address | [address] | | | [place] [address] | + + + | Home Phone | | + + + | Preferred Language | Unknown | + + + | Marital Status | | + + + | Buddhist Affiliation | Unknown | + + + | Race | Unknown | + + + | Ethnic Group | Unknown | + + + Author + + + | Author | [facility] | | | and Tobyana | + + + | Organization | [facility] | | | and [place]yana | + + + | Address | Unknown | + + + | Phone | Unavailable | + + + Support + + + + + | Name | Relationship | Address | Phone | + + + + + | Selena Jimenez | ECON | [address] | | | | | [place] [address] | | + + + + + Care Team Providers + +------+ + | Care Industrial Tech Instructor Name | Role | Phone | + [...] | CARDIOLOGY [address] | MD [address] [place] | | | | | [place], | [place], | | | | | [place] [address] | [place] [address] | | | | | [phone] | [phone] | | | | | | | [...] | | | | | | [place] [address] | | | | | | [phone] | | | | | | | | +--------+---------+ + + + documented as of this encounter Visit Diagnoses Not on filedocumented in this encounter"
--- OUTSIDE RECORDS SUMMARY | ~2019-01-12 | XMS | Clinical Summary ---
Demographics + + + | Address | [address] | | | [place] [address] | + + + | Home Phone [...] | Author | [facility] | | | and Tobyana | + + + | Organization | [facility] | | | and Tobyana | + + + | Address | Unknown | + + + | Phone | Unavailable | + + + Support + + + + + | Name | Relationship | Address | Phone | + + + + + | Selena Jimenez | ECON | [address] | | | | | [place] [address] | | + + + + + Care Team Providers + +------+ + | Care Activity Specialist Name | Role | Phone | [...] whether | | | | | | [place] or | | | | | | [...] Hernandez | | | | | | [place], | | | | | | [place] [address] | | | | | | [phone] | | | | | | | [...] whether | | | | | | [place] or | | | | | | [...] MD | | | | | | ([id number]) on 11/07/2018 | | | | | [...] +--------+ +---------+--------+ | CIGNA | CIGNA | [id number] | Effect | [phone] | | Indemn [...] +--------+ +---------+--------+ | MEDICARE | MEDICA | [id number] | 09/19/18 | [phone] | | Medica [...] | | 1940 | [phone] | [place] [address] | | | hayley | | | 7 (Home) | | + +--------+ +--------+ + + Advance Directives Patient has advance care planning documents on file. For more information, please contact:[facility] [place] [address]
--- OUTSIDE RECORDS SUMMARY | ~2019-01-12 | XMS | Clinical Summary ---
Demographics + + + | Address | [address] | | | [place] [address] | + + + | Home Phone | | + + + | Preferred Language | Unknown | + + + | Marital Status | | + + + | Scientology Affiliation | Unknown | + + + | Race | Unknown | + + + | Ethnic Group | Unknown | + + + Author + + + | Author | [facility] | | | and Tobyana | + + + | Organization | [facility] | | | and [place] | + + + | Address | Unknown | + + + | Phone | Unavailable | + + + Support + + + + + | Name | Relationship | Address | Phone | + + + + + | Selena Jimenez | ECON | [address] | | | | | [place] [address] | | + + + + + Care Team Providers + +------+ + | Care Regional Clinical Research Associate Name | Role | Phone | [...] whether | | | | | | [place] or | | | | | | [...] Hernandez | | | | | | [place], | | | | | | [place] [address] | | | | | | [phone] | | | | | | | [...] whether | | | | | | [place] or | | | | | | [...] MD | | | | | | ([id number]) on 11/07/2018 | | | | | [...] +--------+ +---------+--------+ | CIGNA | CIGNA | [id number] | Effect | [phone] | | Indemn [...] +--------+ +---------+--------+ | MEDICARE | MEDICA | [id number] | 09/19/18 | [phone] | | Medica [...] | [address] | | | [place] | | 1940 | [phone] | [place] [address] | | | [place]ley | | | 7 (Home) | | + +--------+ +--------+ + + Advance Directives Patient has advance care planning documents on file. For more information, please contact:[facility] [place] [address]
--- OUTSIDE RECORDS SUMMARY | ~2019-01-12 | XMS | Encounter Summary ---
Demographics + + + | Address | [address] | | | [place] [address] | + + + | Home Phone | | + + + | Preferred Language | Unknown | + + + | Marital Status | | + + + | Amish Affiliation | Unknown | + + + | Race | Unknown | + + + | Ethnic Group | Unknown | + + + Author + + + | Author | [facility] | | | and Tobyana | + + + | Organization | [facility] | | | and [place] | + + + | Address | Unknown | + + + | Phone | Unavailable | + + + Support + + + + + | Name | Relationship | Address | Phone | + + + + + | Selena Jimenez | ECON | [address] | | | | | [place] [address] | | + + + + + Care Team Providers + +------+ + | Care Log Processor Operator Name | Role | Phone | [...] + + | 11/30/ | Telephone | [facility] | Bernice Antonio, | Blood Pressure Check | | 2018 | | CARDIOLOGY [address] | MD [address] [place] | (Screening) (Blood | | | | [place], | [place], | pressure log [place] | | | | [place] [address] | [place] [address] | 11/07-11/21) | | | | [phone] | [phone] | | | | | | | [...] [place], | | | | | | [place] [address] | | | | | | [phone] | | | | | | | [...] unspecified whether | | | | | [place] or | | | | | transplanted heart | | + +--------+ + + documented as of this encounter Visit Diagnoses + + | Diagnosis | + + | Mixed hyperlipidemia - Primary | + + | Essential hypertension Unspecified essential hypertension | + + | Coronary artery disease, angina presence unspecified, unspecified vessel or lesion | | type, unspecified whether [place] or transplanted heart | + + documented in this encounter"
--- OUTSIDE RECORDS SUMMARY | ~2019-01-12 | XMS | Encounter Summary ---
Demographics + + + | Address | [address] | | | [place] [address] | + + + | Home Phone | | + + + | Preferred Language | Unknown | + + + | Marital Status | | + + + | Adventism Affiliation | Unknown | + + + | Race | Unknown | + + + | Ethnic Group | Unknown | + + + Author + + + | Author | [facility] | | | and Tobyana | + + + | Organization | [facility] | | | and [...] | | | | | , [place] [address] | | + + + + + Care Team Providers + +------+ + | Care Digital Project Manager Name | Role | Phone [...] | CARDIOLOGY [address] | [address] [place] | | | | | [place], | [place], | | | | | [place] [address] | [place] [address] | | | | | [phone] | | | | | | | [...] | | | | | | [place] [address] | | | | | | [phone] | | | | | | | [...]
--- OUTSIDE RECORDS SUMMARY | ~2019-01-12 | XMS | Encounter Summary ---
Demographics + + + | Address | [address] | | | [place] [address] | + + + | Home Phone | | + + + | Preferred Language | Unknown | + + + | Marital Status | | + + + | Amish Affiliation | Unknown | + + + | Race | Unknown | + + + | Ethnic Group | Unknown | + + + Author + + + | Author | [facility] | | | and Tobyana | + + + | Organization | [facility] | | | and [place] | + + + | Address | Unknown | + + + | Phone | Unavailable | + + + Support + + + + + | Name | Relationship | Address | Phone | + + + + + | Selena Jimenez | ECON | [address] | | | | | [place] [address] | | + + + + + Care Team Providers + +------+ + | Care Tape Fastener Machine Operator Name | Role | Phone [...] + + | 11/30/ | Telephone | [facility] | Bernice Antonio, | Blood Pressure Check | | 2018 | | CARDIOLOGY [address] | MD [address] [place] | (Screening) (Blood | | | | [place], | [place], | pressure log from | | | | [place] [address] | [place] [address] | 11/07-11/21) | | | | [phone] | [phone] | | | | | | | [...] [place], | | | | | | [place] [address] | | | | | | [phone] | | | | | | | [...] unspecified whether | | | | | [place] or | | | | | transplanted heart | | + +--------+ + + documented as of this encounter Visit Diagnoses + + | Diagnosis | + + | Mixed hyperlipidemia - Primary | + + | Essential hypertension Unspecified essential hypertension | + + | Coronary artery disease, angina presence unspecified, unspecified vessel or lesion | | type, unspecified whether [place] or transplanted heart | + + documented in this encounter"
--- OUTSIDE RECORDS SUMMARY | ~2019-01-12 | XMS | Clinical Summary ---
Demographics + + + | Address | [address] | | | [place] [address] | + + + | Home Phone | | + + + | Preferred Language | Unknown | + + + | Marital Status | | + + + | Amish Affiliation | NON | + + + | Race | White | + + + | Ethnic Group | Not or | + + + Author + + + | Author | [facility] | + + + | Organization | [facility] | + + + | Address | Unknown | + + + | Phone | Unavailable | + + + Support + + + + + | Name | Relationship | Address | Phone | + + + + + | Junaid Meredith | DOUG | [address] | | | | | [place] | | | | | [address] | | + + + + + | Ronny Rene | ECON | Unknown | | + + + + + | Char Woodard | ECON | Unknown | | + + + + + Care Team Providers + +------+ + | Care Yarn Handler Name | Role | Phone | + +------+ + | Deondre Landis MD | PP | | + +------+ + Source Comments GONSALO is fully live on both EpicCare Ambulatory and EpicCare InPatient.[facility] Allergies + + + + + + [...] 04/04/2015 | + + + | hx [place] (myocardial infarction) | 04/04/2015 | + + [...] / Lot | + +------+--------+ +--------+--------+--------+ | [place] Ptfe 2.5cm X | | N/A: | BARD | | 11/16/ | [id number] | | 15cm - [id number]: Qty: | | Abdome | | | 2020 | | | 1 on 03/27/2015 by Raffy, | | n | | | | /[id number] | | MD Vijay | | | [...] | MEDICA | xxxxxxxxxx | Medica | [phone] | [address] | | | RE A & | | re | [phone] | [place] [address] | | | B | | | [...] | | al/Fam | | 1940 | [phone] | [place] [address] | | | [place] | | | 2052 | | + +--------+ +--------+ + +
--- OUTSIDE RECORDS SUMMARY | ~2019-01-12 | XMS | Encounter Summary ---
Demographics + + + | Address | [address] | | | [place] [address] | + + + | Home Phone | | + + + | Preferred Language | Unknown | + + + | Marital Status | | + + + | Latter Day Affiliation | Unknown | + + + | Race | Unknown | + + + | Ethnic Group | Unknown | + + + Author + + + | Author | [facility] | | | and Tobyana | + + + | Organization | [facility] | | | and [...] | | | | | , [place] [address] | | + + + + + Care Team Providers + +------+ + | Care Cement [address] Name | Role | Phone | + [...] | CARDIOLOGY [address] | [address] [place] | | | | | [place], | [place], | | | | | [place] [address] | [place] [address] | | | | | [phone] | [phone] | | | | | | | [...] | | | | | | [place] [address] | | | | | | [phone] | | | | | | | [...]
--- OUTSIDE RECORDS SUMMARY | ~2019-01-12 | XMS | Encounter Summary ---
Demographics + + + | Address | [address] | | | [place] [address] | + + + | Home Phone [...] + | Author | [facility] | | | and Tobyana | + + + | Organization | [facility] | | [...] | | | | | [place] [address] | | + + + + + Care Team Providers + +------+ + | Care Shared Services Manager Name | Role | Phone [...] + + | 11/07/ | Office | [facility] | Ciaransiaisabella Siaciaran, | Coronary artery | | 2019 | Visit | CARDIOLOGY [address] [place] | disease, angina | | | | [place], | [place], | presence | | | | [place] [address] | [place] [address] | unspecified, | | | | [phone] | [phone] | unspecified vessel | | | | | | or lesion type, | | | | | | unspecified whether | | | | | | mentasta or | | | | | | [...] RESULTS reviewed during visit today primarily from [facility]: LIPID Lab Results Component Value Date CHOL [...] He is in a class I of [place] [employer] funct ional class. There is [...] today. A. Patient underwent a esophagectomy at [facility] on 03/27/15. He was to ld [...] reviewed and edited this note. Char Hermosillo, Manager Military 11/07/2018 I, Paulo Antonio MD, personally performed the services described in this documentation, as scribed in my presence and it is both accurate and complete. Char Hermosillo, Med Ass t 11/07/2018 9:18 Electronically signed by: Paulo Antonio MD [facility] 11/07/2018 Portions of this chart may have been created with [employer] voice recognition software. Occasi onal wrong-word or [...] | | | | | | [place] [address] | | | | | | [phone] | | | | | | | [...] whether | | | | | | mentasta or | | | | | | [...] MD | | | | | | ([id number]) on 11/07/2018 | | | | | [...] or lesion | | type, unspecified whether mentasta or transplanted heart - Primary | + + documented in this encounter
[~2019-01-12 13:30] MED LIST changes: +KLOR-CON 1010 MEQ PO; +MAG-OXIDE400 MG PO; +METOPROLOL SUCC25 MG PO; +MIRALAX17 GM PO; +THERA TABLET400 MCG PO; +TORSEMIDE5 MG PO; +VITAMIN D1000 UNI1 PO
[2019-01-12] MEDS ORDERED: NORCO 5-325 TA1 EACH PO (15:08)
[2019-01-12] MEDS ORDERED: ZITHROMAX250 MG PO (15:08)
== END 2019-01-12 15:36 | disposition home or self-care (01) ==
LOC: ED 13:30
DX: S22.42XA Multiple fractures of ribs, left side, initial encounter for closed fracture (principal); I10 Essential (primary) hypertension; Z85.01 Personal history of malignant neoplasm of esophagus; Z87.891 Personal history of nicotine dependence; Z88.8 Allergy status to other drugs, medicaments and biological substances; Z79.899 Other long term (current) drug therapy; W01.198A Fall on same level from slipping, tripping and stumbling with subsequent striking against other object, initial encounter
CPT/HCPCS: 71101; 99283-25

== ENCOUNTER 2019-01-16 19:42 | Emergency (ER) | payer MEDICARE ==
[~2019-01-16] VITALS: Ht 180.3 cm; Wt 77.2 kg
--- OUTSIDE RECORDS SUMMARY | ~2019-01-16 | XMS | Encounter Summary ---
Demographics + + + | Address | [address] | | | [place] [address] | + + + | Home Phone | | + + + | Preferred Language | Unknown | + + + | Marital Status | | + + + | Adventism Affiliation | Unknown | + + + | Race | Unknown | + + + | Ethnic Group | Unknown | + + + Author + + + | Author | [facility] | | | and Tobyana | + + + | Organization | [facility] | | | and Tobyana | + + + | Address | Unknown | + + + | Phone | Unavailable | + + + Support + + + + + | Name | Relationship | Address | Phone | + + + + + | Selena Jimenez | ECON | [place] [id number] | | | | | , [place] [address] | | + + + + + Care Team Providers + +------+ + | Care It Disaster Recovery Manager Name | Role | Phone | + +------+ + | David Ferrera MD | PCP | | + +------+ + Encounter Details +--------+ + + + + | Date | Type | Department | Care Team | Description | +--------+ + + + + | 11/06/ | Abstract | [facility] | Bernice Antonio, | | | 2018 | | CARDIOLOGY [address] | | | | | [place], | [place], | | | | | [place] [address] | [place] [address] | | | | | [phone] | [phone] | | | | | | | | +--------+ + + + + Social History + + + +--------+ + | Tobacco Use | Types | Packs/Day | Years | Date | | | | | Used | | + + + +--------+ + | Former Smoker | Cigarettes | 1 | 50 | 10/18/1957 - | | | | | | 11/17/2007 | + + + +--------+ + + +-------+---+ + | Smokeless Tobacco: | Snuff | | Quit: | | Former User | | | 04/17/20 | | | | | 17 | + +-------+---+ + + + +---------+ + | Alcohol Use | Drinks/We | oz/Week | Comments | | | ek | | | + + +---------+ + | Yes | 0 | 0.0 | 2-3 drinks at night | | | Standard | | | [...] Description | +--------+---------+ + + + | 11/08/ | Office | Cardiology | Bernice Antonio, | | | 2019 | Visit | | [address] | | | | | | [place], | | | | | | [place] [address] | | | | | | [phone] | | | | | | | | +--------+---------+ + + + documented as of this encounter Procedures + +--------+ + + + | Procedure Name | Priori | Date/Time | Associated Diagnosis | Comments | | | ty | | | | + +--------+ + + + | EXTERNAL LAB: BUN | Routin | 11/06/2018 | | Results for this | | | e | | | procedure are in the | | | | | | results section. | + +--------+ + + + | EXTERNAL LAB: | Routin | 11/06/2018 | | Results for this | | GLUCOSE | e | | | procedure are in the | | | | | | results section. | + +--------+ + + + | EXTERNAL LAB: ALT | Routin | 11/06/2018 | | Results for this | | | e | | | procedure are in the | | | | | | results section. | + +--------+ + + + | EXTERNAL LAB: AST | Routin | 11/06/2018 | | Results for this | | | e | | | procedure are in the | | | | | | results section. | + +--------+ + + + | EXTERNAL LAB: | Routin | 11/06/2018 | | Results for this | | ALKALINE PHOSPHATASE | e | | | procedure are in the | | | | | | results section. | + +--------+ + + + | EXTERNAL LAB: | Routin | 11/06/2018 | | Results for this | | BILIRUBIN, TOTAL | e | | | procedure are in the | | | | | | results section. | + +--------+ + + + | EXTERNAL LAB: | Routin | 11/06/2018 | | Results for this | | ALBUMIN | e | | | procedure are in the | | | | | | results section. | + +--------+ + + + | EXTERNAL LAB: | Routin | 11/06/2018 | | Results for this | | PROTEIN, TOTAL | e | | | procedure are in the | | | | | | results section. | + +--------+ + + + | EXTERNAL LAB: | Routin | 11/06/2018 | | Results for this | | CALCIUM | e | | | procedure are in the | | | | | | results section. | + +--------+ + + + | EXTERNAL LAB: CARBON | Routin | 11/06/2018 | | Results for this | | DIOXIDE | e | | | procedure are in the | | | | | | results section. | + +--------+ + + + | EXTERNAL LAB: | Routin | 11/06/2018 | | Results for this | | CHLORIDE | e | | | procedure are in the | | | | | | results section. | + +--------+ + + + | EXTERNAL LAB: | Routin | 11/06/2018 | | Results for this | | POTASSIUM | e | | | procedure are in the | | | | | | results section. | + +--------+ + + + | EXTERNAL LAB: SODIUM | Routin | 11/06/2018 | | Results for this | | | e | | | procedure are in the | | | | | | results section. | + +--------+ + + + | EXTERNAL LAB: CBC | Routin | 11/06/2018 | | Results for this | | | e | | | procedure are in the | | | | | | results section. | + +--------+ + + + | EXTERNAL LAB: | Routin | 11/06/2018 | | Results for this | | TRIGLYCERIDES | e | | | procedure are in the | | | | | | results section. | + +--------+ + + + | EXTERNAL LAB: | Routin | 11/06/2018 | | Results for this | | CHOLESTEROL, HDL | e | | | procedure are in the | | | | | | results section. | + +--------+ + + + | EXTERNAL LAB: | Routin | 11/06/2018 | | Results for this | | CHOLESTEROL, TOTAL | e | | | procedure are in the | | | | | | results section. | + +--------+ + + + | EXTERNAL LAB: | Routin | 11/06/2018 | | Results for this | | CHOLESTEROL, LDL | e | | | procedure are in the | | | | | | results section. | + +--------+ + + + | EXTERNAL LAB: EGFR | Routin | 11/06/2018 | | Results for this | | | e | | | procedure are in the | | | | | | results section. | + +--------+ + + + | EXTERNAL LAB: | Routin | 11/06/2018 | | Results for this | | CREATININE | e | | | procedure are in the | | | | | | results section. | + +--------+ + + + | LIPID PANEL | Routin | 11/06/2018 | | Results for this | | | e | | | procedure are in the | | | | | | results section. | + +--------+ + + + | CBC WITH | Routin | 11/06/2018 | | Results for this | | DIFFERENTIAL | e | | | procedure are in the | | | | | | results section. | + +--------+ + + + | COMPREHENSIVE | Routin | 11/06/2018 | | Results for this | | METABOLIC PANEL | e | | | procedure are in the | | | | | | results section. | + +--------+ + + + documented in this encounter Results CBC with Differential (11/06/2018) + +-------+ + + + | Component | Value | Ref Range | Performed | Pathologist | | | | | At | Signature | + +-------+ + + + | MCH | 30.0 | 26.0 - 33.0 pg | | | + +-------+ + + + | MCHC | 33.0 | 31.0 - 37.0 % | | | + +-------+ + + + | % Basophils | 1.3 | 2.0 % | | | + +-------+ + + + + + | Specimen | + + | Blood | + + External Lab: CBC (11/06/2018) + + + + + + | Component | Value | Ref Range | Performed | Pathologist | | | | | At | Signature | + + + + + + | WBC, | 6.8 | 4.5 - 11 | EXTERNAL | | | External | | | LAB | | + + + + + + | HGB, | 13.7 | 13.5 - 18 | EXTERNAL | | | External | | | LAB | | + + + + + + | HCT, | 42 | 41 - 50 | EXTERNAL | | | External | | | LAB | | + + + + + + | PLT, | 262 | 140 - 440 | EXTERNAL | | | External | | | LAB | | + + + + + + | Neutrophils | 59.4 | 39 - 80 | EXTERNAL | | | %, | | | LAB | | | External | | | | | + + + + + + | Lymphocytes | 19.5 (A) | 24 - 44 | EXTERNAL | | | %, | | | LAB | | | External | | | | | + + + + + + | Monocytes | 14.8 (A) | 0 - 12 | EXTERNAL | | | %, External | | | LAB | | + + + + + + | Eosinophils | 5.0 | 0 - 6 | EXTERNAL | | | %, | | | LAB | | | External | | | | | + + + + + + | RBC, | 4.62 | 4.3 - 5.7 | EXTERNAL | | | External | | | LAB | | + + + + + + | MCV, | 91 | 81 - 99 | EXTERNAL | | | External | | | LAB | | + + + + + + | RDW, | 14.6 | 10.5 - 15 | EXTERNAL | [...] | | | + +---------+ + + Comprehensive Metabolic Panel (11/06/2018) + +-------+ + + + | Component | Value | Ref Range | Performed | Pathologist | | | | | At | Signature | + +-------+ + + + | Anion Gap | 14 | 7 - 21 mmol/L | | | + +-------+ + + + | Bun/Creatin | 10.7 | 6 - 28.6 | | | | ine | | | | | + +-------+ + + + | Globulin | 2.7 | 1.8 - 3.5 | | | + +-------+ + + + | Albumin/Ashley | 1.3 | 1.1 - 2.4 | | | | bulin Ratio | | | | | + +-------+ + + + + + | Specimen | + + | Blood | + + External Lab: BUN (11/06/2018) + +-------+ + + + | Component | Value | Ref Range | Performed | Pathologist | | | | | At | Signature | + +-------+ + + + | BUN, | 13 | 6 - 23 | [...] + +---------+ + + External Lab: Glucose (11/06/2018) + +-------+ + + + | Component | Value | Ref Range | Performed | Pathologist | | | | | At | Signature | + +-------+ + + + | Glucose, | 98 | 70 - 100 | EXTERNAL | [...] + +---------+ + + External Lab: ALT (11/06/2018) + +-------+ + + + | Component | Value | Ref Range | Performed | Pathologist | | | | | At | Signature | + +-------+ + + + | ALT, | 7 | 7 - 52 | EXTERNAL | [...] + +---------+ + + External Lab: AST (11/06/2018) + +-------+ + + + | Component | Value | Ref Range | Performed | Pathologist | | | | | At | Signature | + +-------+ + + + | AST, | 13 | 13 - 39 | EXTERNAL | [...] +---------+ + + External Lab: Alkaline Phosphatase (11/06/2018) + +-------+ + + + | Component | Value | Ref Range | Performed | Pathologist | | | | | At | Signature | + +-------+ + + + | ALP, | 82 | 31 - 120 | EXTERNAL | | | External | [...] +---------+ + + External Lab: Bilirubin, Total (11/06/2018) + +-------+ + + + | Component [...] + +---------+ + + External Lab: Albumin (11/06/2018) + +-------+ + + + | Component | Value | Ref Range | Performed | Pathologist | | | | | At | Signature | + +-------+ + + + | Albumin, | 3.5 | 3.5 - 5 | EXTERNAL | [...] +---------+ + + External Lab: Protein, Total (11/06/2018) + +-------+ + + + | Component | Value | Ref Range | Performed | Pathologist | | | | | At | Signature | + +-------+ + + + | Protein, | 6.2 | 6 - 8.3 | EXTERNAL | | | Total, | [...] + +---------+ + + External Lab: Calcium (11/06/2018) + +-------+ + + + | Component | Value | Ref Range | Performed | Pathologist | | | | | At | Signature | + +-------+ + + + | Calcium, | 9.2 | 8.5 - 10.3 | EXTERNAL | | | External | [...] +---------+ + + External Lab: Carbon Dioxide (11/06/2018) + +-------+ + + + | Component [...] + +---------+ + + External Lab: Chloride (11/06/2018) + +-------+ + + + | Component | Value | Ref Range | Performed | Pathologist | | | | | At | Signature | + +-------+ + + + | Chloride, | 104 | 95 - 112 | EXTERNAL | [...] + +---------+ + + External Lab: Potassium (11/06/2018) + +-------+ + + + | Component | Value | Ref Range | Performed | Pathologist | | | | | At | Signature | + +-------+ + + + | Potassium, | 4.2 | 3.6 - 5.1 | EXTERNAL | [...] + +---------+ + + External Lab: Sodium (11/06/2018) + +-------+ + + + | Component | Value | Ref Range | Performed | Pathologist | | | | | At | Signature | + +-------+ + + + | Sodium, | 140 | 132 - 143 | EXTERNAL | [...] + +---------+ + + External Lab: eGFR (11/06/2018) + +-------+ + + + | Component | Value | Ref Range | Performed | Pathologist | | | | | At | Signature | + +-------+ + + + | eGFR, | 58 | | EXTERNAL | | | External | | | LAB | | + +-------+ + + + + + | Specimen | + + | Blood | + + + + | Resulting Agency Comment | + + | [facility] | + + + +---------+ + + | Performing | Address | City/State/Zipcode | Phone Number | | Organization | | | | + +---------+ + + | EXTERNAL LAB | | | | + +---------+ + + External Lab: Creatinine (11/06/2018) + + + + + + | Component | Value | Ref Range | Performed | Pathologist | | | | | At | Signature | + + + + + + | Creatinine, | 1.22 (A) | 0.7 - 1.18 | EXTERNAL | | | External | | | LAB | | + + + + + + + + | Specimen | + + | Blood | + + + + | Resulting Agency Comment | + + | [facility] | + + + +---------+ + + | Performing | Address | City/State/Zipcode | Phone Number | | Organization | | | | + +---------+ + + | EXTERNAL LAB | | | | + +---------+ + + Lipid Panel (11/06/2018) + +-------+ + + + | Component | Value | Ref Range | Performed | Pathologist | | | | | At | Signature | + +-------+ + + + | Chol/HDL | 2.2 | | | | | Ratio | | | | | + +-------+ + + + | VLDL | 11 | 4 - 40 | | | | Cholesterol | | | | | | Wilner | | | | | + +-------+ + + + | Non HDL | 79 | 130 | | | | Chol. | | | | | | (LDL+VLDL) | | | | | + +-------+ + + + + + | Specimen | + + | Blood | + + External Lab: Triglycerides (11/06/2018) + +-------+ + + + | Component | Value | Ref Range | Performed | Pathologist | | | | | At | Signature | + +-------+ + + + | Triglycerid | 55 | 30 - 150 | EXTERNAL | | | es, | | | LAB | | | External | | | | | + +-------+ + + + + + | Specimen | + + | Blood | + + + + | Resulting Agency Comment | + + | [facility] | + + + +---------+ + + | Performing | Address | City/State/Zipcode | Phone Number | | Organization | | | | + +---------+ + + | EXTERNAL LAB | | | | + +---------+ + + External Lab: Cholesterol, HDL (11/06/2018) + +-------+ + + + | Component | Value | Ref Range | Performed | Pathologist | | | | | At | Signature | + +-------+ + + + | HDL | 67.6 | 40 mg/dl | EXTERNAL | | | Cholesterol | | | LAB | | | , External | | | | | + +-------+ + + + + + | Specimen | + + | Blood | + + + + | Resulting Agency Comment | + + | [facility] | + + + +---------+ + + | Performing | Address | City/State/Zipcode | Phone Number | | Organization | | | | + +---------+ + + | EXTERNAL LAB | | | | + +---------+ + + External Lab: Cholesterol, Total (11/06/2018) + +-------+ + + + | Component | Value | Ref Range | Performed | Pathologist | | | | | At | Signature | + +-------+ + + + | Cholesterol | 147 | 200 mg/dl | EXTERNAL | | | , Total, | | | LAB | | | External | | | | | + +-------+ + + + + + | Specimen | + + | Blood | + + + + | Resulting Agency Comment | + + | [facility] | + + + +---------+ + + | Performing | Address | City/State/Zipcode | Phone Number | | Organization | | | | + +---------+ + + | EXTERNAL LAB | | | | + +---------+ + + External Lab: Cholesterol, LDL (11/06/2018) + +-------+ + + + | Component | Value | Ref Range | Performed | Pathologist | | | | | At | Signature | + +-------+ + + + | LDL | 68 | 100 | EXTERNAL | | | Cholesterol | | | LAB | | | , External | | | | | + +-------+ + + + + + | Specimen | + + | Blood | + + + + | Resulting [...]
--- OUTSIDE RECORDS SUMMARY | ~2019-01-16 | XMS | Clinical Summary ---
Demographics + + + | Address | [address] | | | [place] [address] | + + + | Home Phone | | + + + | Preferred Language | Unknown | + + + | Marital Status | | + + + | Scientologist Affiliation | Unknown | + + + | Race | Unknown | + + + | Ethnic Group | Unknown | + + + Author + + + | Author | [facility] | | | and [place] | + + + | Organization | [facility] | | | and [place] | + + + | Address | Unknown | + + + | Phone | Unavailable | + + + Support + + + + + | Name | Relationship | Address | Phone | + + + + + | Selena Jimenez | ECON | [address] | | | | | [place] [address] | | + + + + + Care Team Providers + +------+ + | Care Motor Polarizer Name | Role | Phone | + +------+ + | David Ferrera MD | PP | | + +------+ + Allergies + + + +--------+ + | Active Allergy | Reactions | Severity | Noted | Comments | | | | | Date | | + + + +--------+ + | Adhesive & Tape | Rash | Low | | | + + + +--------+ + Medications + + + +---------+------+------+-------+ | Medication | Sig | Dispensed | Refills | Star | End | Statu | | | | | | t | Date | s | | | | | | Date | | | + + + +---------+------+------+-------+ | atorvaSTATin | Take 80 mg by mouth | | 0 | | | Activ | | (LIPITOR) 80 MG | nightly. | | | | | e | | tablet | | | | | | | + + + +---------+------+------+-------+ | aspirin 81 mg | Take one tablet | | 0 | 07/2 | | Activ | | chewable tablet | daily | | | 0/20 | | e | | | | | | 15 | | | + + + +---------+------+------+-------+ | amLODIPine | Take 1 tablet by | 30 | 5 | 01/2 | | Activ | | (NORVASC) 10 MG | mouth Daily. | tablet | | 5/20 | | e | | tablet | | | | 17 | | | + + + +---------+------+------+-------+ | metoclopramide | Take 10 mg by mouth | | 0 | | | Activ | | (REGLAN) 10 mg | 3 times daily | | | | | e | | tablet | (before meals). | | | | | | + + + +---------+------+------+-------+ Active Problems + + + | Problem | Noted Date | + + + | Knee pain, bilateral | 07/16/2014 | + + + | Chronic low back pain | 06/04/2014 | + + + | DDD (degenerative disc disease), lumbar | 06/04/2014 | + + + | S/P lumbar spinal fusion | 06/04/2014 | + + + | Lumbar radiculopathy/neurogenic claudication | 06/04/2014 | + + + | Shoulder pain, bilateral | 06/04/2014 | + + + | OBESITY | | + + + | TOBACCO USER | | + + + | GERD | | + + + | HYPERLIPIDEMIA | | + + + | HYPERTENSION | | + + + | CHEST PAIN | | + + + | CAD | | + + + + + | Overview: Left Heart Cath, 01/03/2008, revealed severe two | | vessel- disease with a complex high-grade 90% stenosis of the | | proximal LAD, 100% stenosis to the proximal RCA. Normal LV size | | and systolic function. LVEF was 55%CABG x 2 on 12/27/2007, Dr Branham | | Ger | + + Encounters +--------+ + + + + | Date | Type | Specialty | Care Team | Description | +--------+ + + + + | 01/09/ | Telephone | | Paulo Antonio, | Blood Pressure | | 2018 | | | MD | | +--------+ + + + + | 11/30/ | Telephone | | Paulo Antonio, | Blood Pressure Check | | 2018 | | | MD | (Screening) (Blood | | | | | | pressure log from | | | | | | 11/07-11/21) | +--------+ + + + + | 11/07/ | Office | | Paulo Antonio, | Coronary artery | | 2018 | Visit | | MD | disease, angina | | | | | | presence | | | | | | unspecified, | | | | | | unspecified vessel | | | | | | or lesion type, | | | | | | unspecified whether | | | | | | [place] or | | | | | | transplanted heart | | | | | | (Primary Dx) | +--------+ + + + + | 11/06/ | Abstract | | Paulo Antonio, | | | 2018 | | | MD | | +--------+ + + + + | 11/01/ | Telephone | | Paulo Antonio, | Lab Order (Pt due | | 2018 | | | MD | for labs prior to | | | | | | appt. ) | +--------+ + + + + from Last 3 Months Family History + + +------+ + | Medical History | Relation | Name | Comments | + + +------+ + | Cancer | Other | | | + + +------+ + | Heart defect | Other | | | + + +------+ + + +------+ + + | Relation | Name | Status | Comments | + +------+ + + | Father | | | COPD | | | | (Age | | | | | 71) | | + +------+ + + | Mother | | | | | | | (Age | | | | | 70) | | + +------+ + + | Other | | | | + +------+ + + | Other | | | | + +------+ + + Social History + + + [...] recent travel history available. | + + Last Filed Vital Signs + + + + | Vital Sign | Reading | Time Taken | + + + + | Blood Pressure | 140/86 | 11/07/2018911 PST | + + + + | Pulse | 76 | 11/07/2018911 PST | + + + + | Temperature | - | - | + + + + | Respiratory Rate | 14 | 11/07/2018911 PST | + + + + | Oxygen Saturation | 98% | 09/17/2016 1304 PST | + + + + | Inhaled Oxygen | - | - | | Concentration | | | + + + + | Weight | 76.4 kg (168 lb 6.9 | 11/07/2018911 PST | | | oz) | | + + + + | Height | 172.7 cm (5' 8") | 11/07/2018911 PST | + + + + | Body Mass Index | 25.61 | 11/07/2018911 PST | + + + + Plan of Treatment +--------+---------+ + + + | Date | Type | Specialty | Care Team | Description | +--------+---------+ + + + | 11/08/ | Office | | Paulo Antonio, | | | 2019 | Visit | | [address] | | | | | | [place], | | | | | | [place] [address] | | | | | | [phone] | | | | | | | | +--------+---------+ + + + + + + + + | Health Maintenance | Due Date | Last Done | Comments | + + + + + | Vaccine: | | | | | Dtap/Tdap/Td (1 - | 1 | | | | Tdap) | | | | + + + + + | Vaccine: Zoster (1 | | | | | of 2) | 2 | | | + + + + + | Lung Cancer | | | | | Screening | 7 | | | + + + + + | Vaccine: | | | | | Pneumococcal 65+ | 7 | | | | Low/Medium Risk (1 | | | | | of 2 - PCV13) | | | | + + + + + | Adult Annual | | | | | Wellness Visit | 5 | | | + + + + + | Vaccine: Influenza | | 07/13/2017 | | | (Season Ended) | 9 | | | + + + + + Procedures + +--------+ + + + | Procedure Name | Priori | Date/Time | Associated Diagnosis | Comments | | | ty | | | | + +--------+ + + + | ECG 12 LEAD | Routin | 11/07/2018 | Coronary artery | Results for this | | | e | 9:17 PST | disease, angina | procedure are in the | | | | | presence | results section. | | | | | unspecified, | | | | | | unspecified vessel | | | | | | or lesion type, | | | | | | unspecified whether | | | | | | [place] or | | | | | | transplanted heart | | + +--------+ + + + | LABS - EXTERNAL SCAN | | 11/06/2018 | | Results for this | | | | 0:00 PST | | procedure are in the | [...] section. | + +--------+ + + + from Last 3 Months Results ECG 12 lead (11/07/2018 9:17 PST) + + + + + + | Component | Value | Ref Range | Performed | Pathologist | | | | | At | Signature | + + + + + + | VENTRICULAR | 76 | BPM | [facility] | | | RATE EKG | | | | | + + + + + + | ATRIAL RATE | 76 | BPM | [facility] | | + + + + + + | P-R | 154 | ms | [facility] | | | INTERVAL | | | | | + + + + + + | QRS | 82 | ms | [facility] | | | DURATION | | | | | + + + + + + | Q-T | 398 | ms | [facility] | | | INTERVAL | | | | | + + + + + + | Q-T | 447 | ms | [facility] | | | INTERVAL | | | | | | (CORRECTED) | | | | | + + + + + + | P WAVE AXIS | 65 | degrees | [facility] | | + + + + + + | QRS AXIS | 35 | degrees | [facility] | | + + + + + + | T AXIS | 18 | degrees | [facility] | | + + + + + + | INTERPRETAT | Sinus rhythm with marked | | [facility] | | | ION TEXT | sinus | | | | | | arrhythmiaAnterior | | | | | | infarct , age | | | | | | undeterminedAbnormal | | | | | | ECGWhen compared with | | | | | | ECG of 04-NOV-2017 | | | | | | 10:08,No significant | | | | | | change was | | | | | | foundConfirmed by | | | | | | PAULO ANTONIO MD | | | | | | ([id number]) on 11/07/2018 | | | | | | 2:12:36 PM | | | | + + [...] | + +---------+ + + External Lab: MOIRA (11/06/2018) + +-------+ + + + | [...] + +---------+ + + External Lab: CBC (11/06/2018) + [...] + +---------+ + + External Lab: Triglycerides (11/06/2018) + [...] | | | + +---------+ + + LABS - EXTERNAL SCAN (11/06/2018 0:00 PST) + + + | Narrative | Performed At | + + + | Ordered by an | | | unspecified provider. | | + + + Lipid Panel (11/06/2018) + +-------+ [...] + + | Blood | + + CBC with Differential (11/06/2018) + +-------+ + [...] + + | Blood | + + Comprehensive Metabolic Panel (11/06/2018) + [...] + + | Blood | + + from Last 3 Months Insurance + +--------+ +--------+ +---------+--------+ | Payer | Benefi | Subscriber | Effect | Phone | Address | Type | | | t Plan | ID | jaun | | | | | | / | | Dates | | | | | | Group | | | | | | + +--------+ +--------+ +---------+--------+ | CIGNA | CIGNA | [id number] | Effect | [phone] | | Indemn | | | MDCR | | jaun | 1 | | ity | | | SUPPLE | | for | | | | | | MENT | | all | | | | | | SOLUTI | | dates | | | | | | ONS | | | | | | + +--------+ +--------+ +---------+--------+ | MEDICARE | MEDICA | [id number] | 09/19/18 | [phone] | | Medica | | | RE | | 87-Pre | 5 | | re | | | PART A | | sent | | | | | | AND B | | | | | | + +--------+ +--------+ +---------+--------+ + +--------+ +--------+ + + | Guarantor Name | Accoun | Relation to | Date | Phone | Billing Address | | | t Type | Patient | of | | | | | | | | | | + +--------+ +--------+ + + | Junaid Jimenez | Person | Self [birth year] | [address] | | | [place] | | 1940 | [phone] | [place] [address] | | | hayley | | | [address] (Home) | | + +--------+ +--------+ + + Advance Directives Patient has advance care planning documents on file. For more information, please contact:[facility] [place] [address]
--- OUTSIDE RECORDS SUMMARY | ~2019-01-16 | XMS | Encounter Summary ---
Demographics + + + | Address | [address] | | | [place] [address] | + + + | Home Phone | | + + + | Preferred Language | Unknown | + + + | Marital Status | | + + + | Temple Affiliation | Unknown | + + + | Race | Unknown | + + + | Ethnic Group | Unknown | + + + Author + + + | Author | [facility] | | | and [place] | + + + | Organization | [facility] | | | and [place] | + + + | Address | Unknown | + + + | Phone | Unavailable | + + + Support + + + + + | Name | Relationship | Address | Phone | + + + + + | Selena Jimenez | ECON | [address] | | | | | [place] [address] | | + + + + + Care Team Providers + +------+ + | Care Side Seam Envelope Machine Operator Name | Role | Phone | + +------+ + | David Ferrera MD | PCP | | + +------+ + Reason for Visit + + + | Reason | Comments | + + + | Follow-up | | + + + | Coronary Artery | | | Disease | | + + + Encounter Details +--------+---------+ + + + | Date | Type | Department | Care Team | Description | +--------+---------+ + + + | 11/07/ | Office | [facility] | Ciaransiaisabella Siaciaran, | Coronary artery | | 2019 | Visit | CARDIOLOGY [address] [place] | disease, angina | | | | [place], | [place], | presence | | | | [place] [address] | [place] [address] | unspecified, | | | | [phone] | [phone] | unspecified vessel | | | | | | or lesion type, | | | | | | unspecified whether | | | | | | campo or | | | | | | transplanted heart | | | | | | (Primary Dx) | +--------+---------+ + + + Social [...] Oxygen Saturation | - | - | + + + + | Inhaled [...] 11/07/2018911 PST | + + + + documented in this encounter Progress Notes Paulo Antonio MD - 11/07/2018 0930 PST PATIENT NAME: Junaid Jimenez : 1940: AGE: 78 y.o. PRIMARY CARE: David Ferrera MD OUTPATIENT FOLLOW UP VISIT Date of Service: 11/07/2018 HISTORY OF PRESENT ILLNESS: Junaid Jimenez is a 78 y.o. male with a history of coronary artery disease, post CABG x 2 in 12/2007, hypertension, hyperlipidemia, gastroesophageal reflux disease and remote smoking. He is being seen today for follow up coronary artery disease and hypertension. He was last seen 11/04/2017 at which time patient was doing well from cardiac standpoint and continue with current medical regimen. Since that time, patient continues to do well and de nies any cardiac symptoms. Patient is physically active walking with his neighbor for about 15 to 20 minutes. There is no chest pain or chest discomfort both at rest and on exertion. P atient denies breathlessness. There is no palpitations, dizziness or lightheadedness. There is no ankle or leg swelling. Patient can sleep on one pillow at night without difficulty kaye athing. MEDICAL, SURGICAL, AND PERSONAL HISTORY Past Medical, [...] Prescriptions Medication Sig Dispense Refill amLODIPine (NORVASC) 10 MG tablet Take 1 tablet by mouth Daily. 30 tablet 5 aspirin 81 mg chewable tablet Take one tablet daily atorvaSTATin (LIPITOR) 80 MG tablet Take 80 mg by mouth nightly. metoclopramide (REGLAN) 10 mg tablet Take 10 mg by mouth 3 times daily (before meals). No current facility-administered medications for this visit. ALLERGIES Allergies Allergen Reactions Adhesive & Tape Rash ROS Review of Systems Constitutional: Negative for chills, diaphoresis, fever, malaise/fatigue and weight loss. HENT: Negative for congestion, hearing loss, nosebleeds and tinnitus. Dental Problems = No Eyes: Negative for blurred vision and double vision. Respiratory: Positive for shortness of breath. Cardiovascular: Negative for chest pain, palpitations and leg swelling. Gastrointestinal: Negative for blood in stool, constipation, diarrhea, nausea and vomiting. Genitourinary: Negative for dysuria, frequency, hematuria and urgency. Musculoskeletal: Positive for back pain and joint pain. Negative for falls, myalgias and ne ck pain. Gait Problems = No Skin: Negative for itching and rash. Neurological: Negative for dizziness, tingling, tremors, speech change, seizures, loss of c onsciousness and weakness. Lightheaded = No Endo/Heme/Allergies: Does not bruise/bleed easily. Psychiatric/Behavioral: Negative for memory loss. The patient is not nervous/anxious and do es not have insomnia. OBJECTIVE: PHYSICAL EXAM BP 140/86 | Pulse 76 | Resp 14 | Ht 1.727 m (5' 8") | Wt 76.4 kg (168 lb 6.9 oz) | BMI 25.61 kg/m Physical Exam Constitutional: He is oriented to person, place, and time. He appears well-developed and we ll-nourished. Male individual arrives with his , no acute distress. Neck: Normal carotid pulses and no JVD present. Carotid bruit is not present. Cardiovascular: Normal rate, regular rhythm, S1 normal, S2 normal and intact distal pulses. PMI is not displaced. Exam reveals no gallop and no friction rub. Murmur heard. Holosystolic murmur is present with a grade of 2/6 at the upper left sternal border Pulses: Carotid pulses are 2+ on the right side, and 2+ on the left side. Posterior tibial pulses are 2+ on the right side, and 2+ on the left side. Pulmonary/Chest: Effort normal and breath sounds normal. No accessory muscle usage. No resp iratory distress. He has no wheezes. He has no rhonchi. He has no rales. Abdominal: Soft. Normal appearance and normal aorta. He exhibits no abdominal bruit. There is no hepatosplenomegaly. There is no tenderness. Musculoskeletal: He exhibits no edema. Neurological: He is alert and oriented to person, place, and time. Gait normal. Skin: Skin is warm and dry. No cyanosis. Nails show no clubbing. Psychiatric: He has a normal mood and affect. His mood appears not anxious. He does not exh ibit a depressed mood. ECG: Sinus arrhythmia with marked sinus arrhythmia. LAB RESULTS reviewed during visit today primarily from [facility]: LIPID Lab Results Component Value Date CHOL 189 09/17/2016 TRIG 51 09/17/2016 HDL 124 (H) 09/17/2016 LDL 55 09/17/2016 CHOLHDL 2.2 11/06/2018 LDLEX 68 11/06/2018 HDLEX 67.6 11/06/2018 TRIGEX 55 11/06/2018 CHOLEX 147 11/06/2018 CHEMISTRY Lab Results Component Value Date GLU 108 09/17/2016 GLUEX 98 11/06/2018 NA 137 09/17/2016 NAEX 140 11/06/2018 K 3.9 09/17/2016 KEX 4.2 11/06/2018 CL 101 09/17/2016 CLEX 104 11/06/2018 CO2 27 09/17/2016 CO2EX 26 11/06/2018 CALCIUM 9.1 09/17/2016 ALKPHOS 90 09/17/2016 AST 34 09/17/2016 ASTEX 13 11/06/2018 ALT 14 09/17/2016 ALTEX 7 11/06/2018 BILITOT 1.0 09/17/2016 CREA 1.14 09/17/2016 BUN 16 09/17/2016 EGFREX 58 11/06/2018 CREEX 1.22 (A) 11/06/2018 HEMATOLOGY Lab Results Component Value Date WBC 7.4 09/17/2016 WBCEX 6.8 11/06/2018 HGB 13.0 (L) 09/17/2016 HGBEX 13.7 11/06/2018 HCT 39.2 (L) 09/17/2016 HCTEX 42 11/06/2018 PLT 193 09/17/2016 PLTEX 262 11/06/2018 Above data and testing is reviewed this [...] the posterior descending coronary artery. C.Today, patient is doing well from cardiac standpoint. He is asy mptomatic and physically active walking for 15 to 20 minutes. There is no signs and symptom s of overt congestive heart failure. He is in a class I of [place] [employer] funct ional class. There is no fluid retention on physical examination. 2. Hypertension: A.Blood pressure in office today is marginally elevated. 3.Hyperlipidemia A.Lipid panel from 11/06/2018 shows good lipid panel. 4.Erectile dysfunction. Not addressed today. A. Today, patient mentioned that he has a difficulty to maintain hi s erection. Not addressed. 5.Esophageal cancer. Not addressed today. A. Patient underwent a esophagectomy at [facility] on 03/27/15. He was to ld during the 6 month follow-up that he is cancer free PLAN: 1. Check blood pressure x 2 weeks. 2. I recommend flu, pneumonia and shingles vaccine. Patient refuses vaccine at this time. 3. I recommend a therapeutic lifestyle change including walking 30 minutes a day, choosing healthy choices of diet and 7 hours of high quality sleep a night. 4. Follow-up in one year or sooner with concerns. I, Char Hermosillo, am acting as a scribe on behalf of, and in the presence of Paulo mason MD. I have reviewed and edited this note. Char Hermosillo, It Consulting Manager 11/07/2018 I, Paulo Antonio MD, personally performed the services described in this documentation, as scribed in my presence and it is both accurate and complete. Char Hermosillo, Med Ass t 11/07/2018 9:18 Electronically signed by: Paulo Antonio MD [facility] 11/07/2018 Portions of this chart may have been created with [employer] voice recognition software. Occasi onal wrong-word or sound-alike substitutions may have occurred due to the inherent kurtz itations of voice recognition software. Please read the chart carefully and recognize, using context, where these substitutions have occurred documented in this enc ounter Plan of Treatment +--------+---------+ + + + | Date | Type | Specialty | Care Team | Description | +--------+---------+ + + + | 11/08/ | Office | Cardiology | Paulo Antonio, | | | 2019 | Visit | | MD [address] | | | | | | [place], | | | | | | [place] [address] | | | | | | [phone] | | | | | | | [...] whether | | | | | | campo or | | | | | | transplanted heart | | + +--------+ + + + | LABS - EXTERNAL SCAN | | 11/06/2018 | | Results for this | | | | 0:00 PST | | procedure are in the | | | | | | results section. | + +--------+ + + + documented in this encounter Results ECG 12 lead (11/07/2018 9:17 PST) [...] MD | | | | | | ([id number]) on 11/07/2018 | | | | | [...] unspecified provider. | | + + + documented in this encounter Visit Diagnoses + + | Diagnosis | + + | Coronary artery disease, angina presence unspecified, unspecified vessel or lesion | | type, unspecified whether campo or transplanted heart - Primary | + + documented in this encounter
--- OUTSIDE RECORDS SUMMARY | ~2019-01-16 | XMS | Encounter Summary ---
Demographics + + + | Address | [address] | | | [place] [address] | + + + | Home Phone | | + + + | Preferred Language | Unknown | + + + | Marital Status | | + + + | Baptist Affiliation | Unknown | + + + | Race | Unknown | + + + | Ethnic Group | Unknown | + + + Author + + + | Author | [facility] | | | and [place] | + + + | Organization | [facility] | | | and [place] | + + + | Address | Unknown | + + + | Phone | Unavailable | + + + Support + + + + + | Name | Relationship | Address | Phone | + + + + + | Selena Jimenez | ECON | [address] | | | | | [place] [address] | | + + + + + Care Team Providers + +------+ + | Care Reuse Technician Name | Role | Phone | + +------+ + | David Ferrera MD | PCP | | + +------+ + Reason for Visit + + + | Reason | Comments | + + + | Blood Pressure Check | Blood pressure log from 11/07-11/21 | | (Screening) | | + + + Encounter Details +--------+ + + + + | Date | Type | Department | Care Team | Description | +--------+ + + + + | 11/30/ | Telephone | [facility] | Bernice Antonio, | Blood Pressure Check | | 2018 | | CARDIOLOGY [address] | MD [address] [place] | (Screening) (Blood | | | | [place], | [place], | pressure log from | | | | [place] [id number] | [place] [id number] | 11/07-11/21) | | | | [phone] | [phone] | | | | | | | [...] [place], | | | | | | [place] [id number] | | | | | | [phone] | | | | | | | | +--------+---------+ + + + + +--------+ + + | Name | Priori | Associated Diagnoses | Order Schedule | | | ty | | | + +--------+ + + | Basic Metabolic Panel | Routin | Mixed | Expected: | | | e | hyperlipidemia | 12/07/2018, Expires: | | | | Essential | 11/30/2019 | | | | hypertension | | | | | Coronary artery | | | | | disease, angina | | | | | presence | | | | | unspecified, | | | | | unspecified vessel | | | | | or lesion type, | | | | | unspecified whether | | | | | kaibab or | | | | | transplanted heart | | + +--------+ + + documented as of this encounter Visit Diagnoses + + | Diagnosis | + + | Mixed hyperlipidemia - Primary | + + | Essential hypertension Unspecified essential hypertension | + + | Coronary artery disease, angina presence unspecified, unspecified vessel or lesion | | type, unspecified whether kaibab or transplanted heart | + + documented in this encounter"
--- OUTSIDE RECORDS SUMMARY | ~2019-01-16 | XMS | Encounter Summary ---
Demographics + + + | Address | [address] | | | [place] [address] | + + + | Home Phone | | + + + | Preferred Language | Unknown | + + + | Marital Status | | + + + | Faith Affiliation | Unknown | + + + | Race | Unknown | + + + | Ethnic Group | Unknown | + + + Author + + + | Author | [facility] | | | and [place] | + + + | Organization | [facility] [...] | | | | | [place] [address] | | + + + + + Care Team Providers + +------+ + | Care Automotive Power Electronics Engineer Name | Role | Phone | [...] + | 11/01/ | Telephone | [facility] | Bernice Antonio, | Lab Order (Pt due | | 2019 | | CARDIOLOGY [address] | [address] [place] | for labs prior to | | | | [place], | [place], | appt. ) | | | | [place] [address] | [place] [address] | | | | | [phone] | [phone] | | | | | | | [...] | | | | | | [place] [address] | | | | | | [phone] | | | | | | | [...] unspecified whether | | | | | wiyot or | | | | | transplanted [...] unspecified whether | | | | | wiyot or | | | | | transplanted [...] unspecified whether | | | | | wiyot or | | | | | transplanted heart | | | | | Mixed hyperlipidemia | | + +--------+ + + documented as of this encounter Visit Diagnoses + + | Diagnosis | + + | Essential hypertension - Primary Unspecified essential hypertension | + + | Coronary artery disease, angina presence unspecified, unspecified vessel or lesion | | type, unspecified whether wiyot or transplanted heart | + + | Mixed hyperlipidemia | + + documented in this encounter"
--- OUTSIDE RECORDS SUMMARY | ~2019-01-16 | XMS | Encounter Summary ---
Demographics + + + | Address | [address] | | | [place] [address] | + + + | Home Phone | | + + + | Preferred Language | Unknown | + + + | Marital Status | | + + + | Mu-Ism Affiliation | Unknown | + + + | Race | Unknown | + + + | Ethnic Group | Unknown | + + + Author + + + | Author | [facility] | | | and Tobyana | + + + | Organization | [facility] | | | and [...] | | | | | [place] [address] | | + + + + + Care Team Providers + +------+ + | Care Enforcement Safety Officer Name | Role | Phone | + [...] + | 11/01/ | Telephone | [facility] | Bernice Antonio, | Lab Order (Pt due | | 2019 | | CARDIOLOGY [address] | for labs prior to | | | | [place], | [place], | appt. ) | | | | [place] [address] | [place] [address] | | | | | [phone] | | | | | | | [...] | | | | | | [address] [place], | | | | | | [place] [address] | | | | | | [phone] | | | | | | | [...] unspecified whether | | | | | [place] or | | | | | transplanted [...] unspecified whether | | | | | [place] or | | | | | transplanted [...] unspecified whether | | | | | [place] or | | | | | transplanted heart | | | | | Mixed hyperlipidemia | | + +--------+ + + documented as of this encounter Visit Diagnoses + + | Diagnosis | + + | Essential hypertension - Primary Unspecified essential hypertension | + + | Coronary artery disease, angina presence unspecified, unspecified vessel or lesion | | type, unspecified whether [place] or transplanted heart | + + | Mixed hyperlipidemia | + + documented in this encounter"
--- OUTSIDE RECORDS SUMMARY | ~2019-01-16 | XMS | Encounter Summary ---
Demographics + + + | Address | [address] | | | [place] [address] | + + + | Home Phone | | + + + | Preferred Language | Unknown | + + + | Marital Status | | + + + | Congregation Affiliation | Unknown | + + + | Race | Unknown | + + + | Ethnic Group | Unknown | + + + Author + + + | Author | [facility] | | | and Tobyana | + + + | Organization | [facility] | | | and Tobyana | + + + | Address | Unknown | + + + | Phone | Unavailable | + + + Support + + + + + | Name | Relationship | Address | Phone | + + + + + | Selena Jimenez | ECON | [address] | | | | | [place] [address] | | + + + + + Care Team Providers + +------+ + | Care Police Cadet Name | Role | Phone | + [...] | CARDIOLOGY [address] | MD [address] [place] | | | | | [place], | [place], | | | | | [place] [address] | [place] [address] | | | | | [phone] | | | | | | | [...] | | | | | | [place] [address] | | | | | | [phone] | | | | | | | | +--------+---------+ + + + documented as of this encounter Visit Diagnoses Not on filedocumented in this encounter"
--- OUTSIDE RECORDS SUMMARY | ~2019-01-16 | XMS | Encounter Summary ---
Demographics + + + | Address | [address] | | | [place] [address] | + + + | Home Phone | | + + + | Preferred Language | Unknown | + + + | Marital Status | | + + + | Quaker Affiliation | Unknown | + + + | Race | Unknown | + + + | Ethnic Group | Unknown | + + + Author + + + | Author | [facility] | | | and Tobyana | + + + | Organization | [facility] [...] | | | | | [place] [address] | | + + + + + Care Team Providers + +------+ + | Care Slip Dumper Name | Role | Phone | + [...] + + | 11/07/ | Office | [facility] | Ciaransiaisabella Siaciaran, | Coronary artery | | 2019 | Visit | CARDIOLOGY [address] | [address] [place] | disease, angina | | | | [place], | [place], | presence | | | | [place] [address] | [place] [address] | unspecified, | | | | [phone] | [phone] | unspecified vessel | | | | | | or lesion type, | | | | | | unspecified whether | | | | | | tribal or | | | | | | [...] RESULTS reviewed during visit today primarily from [facility]: LIPID Lab Results Component Value Date CHOL [...] He is in a class I of [place] [employer] funct ional class. There is [...] today. A. Patient underwent a esophagectomy at [facility] on 03/27/15. He was to ld [...] reviewed and edited this note. Char Hermosillo, Intermediate Card Tender 11/07/2018 I, Paulo Antonio MD, personally performed the services described in this documentation, as scribed in my presence and it is both accurate and complete. Char Hermosillo, Med Ass t 11/07/2018 9:18 Electronically signed by: Paulo Antonio MD [facility] 11/07/2018 Portions of this chart may have been created with [employer] voice recognition software. Occasi onal wrong-word or [...] | | | | | | [place] [address] | | | | | | [phone] | | | | | | | [...] whether | | | | | | tribal or | | | | | | [...] MD | | | | | | ([id number]) on 11/07/2018 | | | | | [...] or lesion | | type, unspecified whether tribal or transplanted heart - Primary | + + documented in this encounter
--- OUTSIDE RECORDS SUMMARY | ~2019-01-16 | XMS | Clinical Summary ---
Demographics + + + | Address | [address] | | | [place] [address] | + + + | Home Phone | | + + + | Preferred Language | Unknown | + + + | Marital Status | | + + + | Judaism Affiliation | NON | + + + | Race | White | + + + | Ethnic Group | Not or | + + + Author + + + | Author | [facility] | + + + | Organization | [facility] | + + + | Address | Unknown | + + + | Phone | Unavailable | + + + Support + + + + + | Name | Relationship | Address | Phone | + + + + + | Junaid Meredith | DOUG | [address] | | | | | [place] | | | | | [address] | | + + + + + | Ronny Rene | ECON | Unknown | | + + + + + | Char Woodard | ECON | Unknown | | + + + + + Care Team Providers + +------+ + | Care Light Technician Name | Role | Phone | + +------+ + | Deondre Landis MD | PP | | + +------+ + Source Comments GONSALO is fully live on both EpicCare Ambulatory and EpicCare InPatient.[facility] Allergies + + + + + + [...] 04/04/2015 | + + + | hx CA (myocardial infarction) | 04/04/2015 | + + [...] / Lot | + +------+--------+ +--------+--------+--------+ | Kimball Pledget Ptfe 2.5cm X | | N/A: | BARD | | 11/16/ | [id number] | | 15cm - [id number]: Qty: | | Abdome | | | 2020 | | | 1 on 03/27/2015 by Raffy, | | n | | | | /[id number] | | MD Vijay | | | [...] | MEDICA | xxxxxxxxxx | Medica | [phone] | [address] | | | RE A & | | re | [phone] | [place] [address] | | | B | | | [...] | | al/Fam | | 1940 | [phone] | [place] [address] | | | hayley | | | [phone] | | + +--------+ +--------+ + +
--- OUTSIDE RECORDS SUMMARY | ~2019-01-16 | XMS | Encounter Summary ---
Demographics + + + | Address | [address] | | | [place] [address] | + + + | Home Phone | | + + + | Preferred Language | Unknown | + + + | Marital Status | | + + + | Anabaptist Affiliation | Unknown | + + + | Race | Unknown | + + + | Ethnic Group | Unknown | + + + Author + + + | Author | [facility] | | | and Tobyana | + + + | Organization | [facility] | | | and Tobyana | + + + | Address | Unknown | + + + | Phone | Unavailable | + + + Support + + + + + | Name | Relationship | Address | Phone | + + + + + | Selena Jimenez | ECON | [address] | | | | | [place] [address] | | + + + + + Care Team Providers + +------+ + | Care Skoog Patching Machine Operator Name | Role | Phone [...] + + | 11/30/ | Telephone | [facility] | Bernice Antonio, | Blood Pressure Check | | 2018 | | CARDIOLOGY [address] | MD [address] [place] | (Screening) (Blood | | | | [place], | [place], | pressure log from | | | | [place] [address] | [place] [address] | 11/07-11/21) | | | | [phone] | [phone] | | | | | | | [...] | | | | | | [place] [address] | | | | | | [phone] | | | | | | | [...] unspecified whether | | | | | [place] or | | | | | transplanted heart | | + +--------+ + + documented as of this encounter Visit Diagnoses + + | Diagnosis | + + | Mixed hyperlipidemia - Primary | + + | Essential hypertension Unspecified essential hypertension | + + | Coronary artery disease, angina presence unspecified, unspecified vessel or lesion | | type, unspecified whether [place] or transplanted heart | + + documented in this encounter"
--- OUTSIDE RECORDS SUMMARY | ~2019-01-16 | XMS | Encounter Summary ---
Demographics + + + | Address | [address] | | | [place] [address] | + + + | Home Phone | | + + + | Preferred Language | Unknown | + + + | Marital Status | | + + + | Taoism Affiliation | Unknown | + + + | Race | Unknown | + + + | Ethnic Group | Unknown | + + + Author + + + | Author | [facility] | | | and Tobyana | + + + | Organization | [facility] | | | and Tobyana | + + + | Address | Unknown | + + + | Phone | Unavailable | + + + Support + + + + + | Name | Relationship | Address | Phone | + + + + + | Selena Jimenez | ECON | [address] | | | | | , [place] [address] | | + + + + + Care Team Providers + +------+ + | Care Technician Telecommunication Systems Name | Role | Phone | + [...] | CARDIOLOGY [address] | [address] | | | | | [place], | [place], | | | | | [place] [address] | [place] [address] | | | | | [phone] | | | | | | | [...] | | | | | | [place] [address] | | | | | | [phone] | | | | | | | [...]
--- OUTSIDE RECORDS SUMMARY | ~2019-01-16 | XMS | Encounter Summary ---
Demographics + + + | Address | [address] | | | [place] [address] | + + + | Home Phone [...] | Author | [facility] | | | and Tobyana | + + + | Organization | [facility] | | | and [...] | | | | | [place] [address] | | + + + + + Care Team Providers + +------+ + | Care Detective Automobile Section Name | Role | Phone | + [...] | CARDIOLOGY [address] | MD [address] | | | | | [place], | [place], | | | | | [place] [address] | [place] [address] | | | | | [phone] | | | | | | | [...] | | | | | | [place] [address] | | | | | | [phone] | | | | | | | | +--------+---------+ + + + documented as of this encounter Visit Diagnoses Not on filedocumented in this encounter"
--- OUTSIDE RECORDS SUMMARY | ~2019-01-16 | XMS | Clinical Summary ---
Demographics + + + | Address | [address] | | | [place] [address] | + + + | Home Phone | | + + + | Preferred Language | Unknown | + + + | Marital Status | | + + + | Pentecostal Affiliation | NON | + + + | Race | White | + + + | Ethnic Group | Not or | + + + Author + + + | Author | [facility] | + + + | Organization | [facility] | + + + | Address | Unknown | + + + | Phone | Unavailable | + + + Support + + + + + | Name | Relationship | Address | Phone | + + + + + | Junaid Meredith | DOUG | [address] | | | | | [place] | | | | | [address] | | + + + + + | Ronny Rene | ECON | Unknown | | + + + + + | Char Woodard | ECON | Unknown | | + + + + + Care Team Providers + +------+ + | Care Branch Account Executive Name | Role | Phone | + +------+ + | Deondre Landis MD | PP | | + +------+ + Source Comments GONSALO is fully live on both EpicCare Ambulatory and EpicCare InPatient.[facility] Allergies + + + + + + [...] 04/04/2015 | + + + | hx MA (myocardial infarction) | 04/04/2015 | + + [...] / Lot | + +------+--------+ +--------+--------+--------+ | Gamerco Pledget Ptfe 2.5cm X | | N/A: | BARD | | 11/16/ | [id number] | | 15cm - [id number]: Qty: | | Abdome | | | 2020 | | | 1 on 03/27/2015 by Raffy, | | n | | | | /[id number] | | MD Vijay | | | [...] | MEDICA | xxxxxxxxxx | Medica | [phone] | [address] | | | RE A & | | re | [phone] | [place] [address] | | | B | | | [...] | | al/Fam | | 1940 | [phone] | [place] [address] | | | [place] | | | [address] | | + +--------+ +--------+ + +
--- OUTSIDE RECORDS SUMMARY | ~2019-01-16 | XMS | Clinical Summary ---
Demographics + + + | Address | [address] | | | [place] [address] | + + + | Home Phone [...] | Author | [facility] | | | and Tobyana | + + + | Organization | [facility] | | | and Tobyana | + + + | Address | Unknown | + + + | Phone | Unavailable | + + + Support + + + + + | Name | Relationship | Address | Phone | + + + + + | Selena Jimenez | ECON | [address] | | | | | [place] [address] | | + + + + + Care Team Providers + +------+ + | Care Highway Maintenance Crew Worker Name | Role | Phone | [...] whether | | | | | | [place] or | | | | | | [...] [place] | | | | | | [place], | | | | | | [place] [address] | | | | | | [phone] | | | | | | | [...] whether | | | | | | [place] or | | | | | | [...] MD | | | | | | ([id number]) on 11/07/2018 | | | | | [...] +--------+ +---------+--------+ | CIGNA | CIGNA | [id number] | Effect | [phone] | | Indemn [...] +--------+ +---------+--------+ | MEDICARE | MEDICA | [id number] | 09/19/18 | [phone] | | Medica [...] | | 1940 | [phone] | [place] [address] | | | [place] | | | 7 (Home) | | + +--------+ +--------+ + + Advance Directives Patient has advance care planning documents on file. For more information, please contact:[facility] [place] [address]
[~2019-01-16 19:42] MED LIST changes: +NORCO 5-325 TA1 EACH PO; +ZITHROMAX250 MG PO
--- OUTSIDE RECORDS SUMMARY | 2019-01-16 19:44 | XMS ---
PreManage Notification: NAN MEREDITH Security Showroom Sales Consultant Events No recent Security Events currently on file CRITERIA MET - [facility] - 2 Visits in [address] STEPHAN HOUSTON Primary Care Current PHONE: [phone] CO[facility] O[facility]A Primary [facility] 04/19/2015-04/19/2015 PHONE: [phone] Vijay Akbar Primary [facility] Current PHONE: Unknown COOPER OCHOA Primary Care 04/19/2015-Current PHONE: Unknown MARKOS ACHARYA Primary Care 09/19/2014-Current PHONE: Unknown Symone has no Care Guidelines for this patient. [facility] VISIT COUNT (12 MO.) [address] [facility] TOTAL 2 NOTE: Visits indicate total known visits. ED/UCC VISIT TRACKING (12 MO.) 01/16/2019 19:43 [facility] [place] TYPE: Emergency COMPLAINT: - R SHOULDER PAIN 01/12/2019 13:31 [facility] [place] TYPE: Emergency COMPLAINT: - FALL/LEFT SIDE PAIN DIAGNOSES: - Other merchandiser seasonal (current) drug therapy - Fall on same level from slipping, tripping and stumbling with subsequent striking against other object, initial encounter - Personal history of nicotine dependence - Personal history of malignant neoplasm of esophagus - Multiple fractures of ribs, left side, initial encounter for closed fracture - Essential (primary) hypertension - Chest pain, unspecified - Allergy status to other drugs, medicaments and biological substances status INPATIENT VISIT TRACKING (12 MO.) No inpatient visits to display in this time frame [email or web address]
[2019-01-16] MEDS ORDERED: NORCO 5-325 TA1 EACH PO (20:26)
== END 2019-01-16 20:48 | disposition home or self-care (01) ==
LOC: ED 19:42
DX: S49.091A Other physeal fracture of upper end of humerus, right arm, initial encounter for closed fracture (principal); W01.198A Fall on same level from slipping, tripping and stumbling with subsequent striking against other object, initial encounter; I10 Essential (primary) hypertension; Z88.8 Allergy status to other drugs, medicaments and biological substances; Z79.899 Other long term (current) drug therapy
CPT/HCPCS: 73030; 99283

== ENCOUNTER 2020-01-10 11:23 | Emergency (ER) | payer MEDICARE ==
[~2020-01-10] VITALS: Ht 180.3 cm; Wt 77.2 kg
--- OUTSIDE RECORDS SUMMARY | ~2020-01-10 | XMS | Encounter Summary ---
Demographics + + + | Address | [address] | | | [place] [address] | + + + | Home Phone | | + + + | Preferred Language | Unknown | + + + | Marital Status | | + + + | Uatsdin Affiliation | NON | + + + | Race | White | + + + | Ethnic Group | Not or | + + + Author + + + | Author | [facility] | + + + | Organization | [facility] | + + + | Address | Unknown | + + + | Phone | Unavailable | + + + Support + + + + + | Name | Relationship | Address | Phone | + + + + + | Selena Jimenez | ECON | [address] | | | | | [place] | | | | | [address] | | + + + + + | Ronny Rene | ECON | Unknown | | + + + + + | Char Woodard | ECON | Unknown | | + + + + + Care Team Providers + +------+ + | Care Truck Manager Name | Role | Phone | + +------+ + | Deondre Landis MD | PCP | | + +------+ + Reason for Visit AUTH/CERT +--------+--------+ + + + + | Status | Reason | Specialty | Diagnoses / | Referred By | Referred To | | | | | Procedures | Contact | Contact | +--------+--------+ + + + + | Closed | | | | | | +--------+--------+ + + + + Encounter Details +--------+ + + + + | Date | Type | Department | Care Team | Description | +--------+ + + + + | 03/27/ | Anesthesia | 6A Intra Op [address] | [address] | | | 2015 | Event | [facility] [address] | MD [address] | | | | | [facility] | [address] | | | | | Hospital Admitting | [place], [place] | | | | | Desk Located on the | [id number] | | | | | 9th floor | [phone] | | | | | [place], [place] | | | | | | [address] | Nico Alvarado MD | | +--------+ + + + + Anesthesia Record + + + + + | Procedure Name | Responsible | Anesthesia Start | Anesthesia Stop Time | | | Anesthesiologist | Time | | + + + + + | LAPAROSCOPIC | [facility] [facility], | 03/27/15 0723 | 03/27/15 1530 | | TRANSHIATAL | MD | | | | ESOPHAGECTOMY, | | | | | FEEDING JEJUNOSTOMY | | | | | TUBE PLACEMENT EGD | | | | | (N/A Abdomen) | | | | + + + + + +----+---+ + + | Da | T | Event | Comment | | te | i | | | | | m | | | | | e | | | +----+---+ + + | 07 | 0 | Pt. Check | Prior to anesthesia start, pt. Identified, examined, chart | | /0 | 6 | | reviewed, PARQ held, anesthetic plan made or approved by | | 9/ | 3 | | attending anesthesiologist. NPO status confirmed as appropriate | | 20 | 4 | | for procedure Preoperative evaluation: unchanged | | 15 | | | | +----+---+ + + | | 0 | Eq Check | Anesthesia machine checked Equipment verified | | | 6 | | | | | 5 | | | | | 0 | | | +----+---+ + + | | 0 | Epidural | | | | 6 | Start | | | | 5 | | | | | 4 | | | +----+---+ + + | | 0 | Epidural | | | | 7 | Stop | | | | 1 | | | | | 0 | | | +----+---+ + + | | 0 | An Start | | | | 7 | | | | | 2 | | | | | 3 | | | +----+---+ + + | | 0 | An Start | | | | 7 | Data | | | | 3 | | | | | 0 | | | +----+---+ + + | | 0 | Vitals | Monitors applied Vital signs checked Patient ready for anesthesia | | | 7 | Checked | | | | 3 | | | | | 3 | | | +----+---+ + + | | 0 | Std. Airway | | | | 7 | Mgt. | | | | 3 | | | | | 8 | | | +----+---+ + + | | 0 | Art Line | | | | 7 | | | | | 4 | | | | | 4 | | | +----+---+ + + | | 0 | Central | | | | 8 | venous line | | | | 0 | | | | | 4 | | | +----+---+ + + | | 0 | Ready | | | | 8 | | | | | 1 | | | | | 3 | | | +----+---+ + + | | 0 | Timeout | | | | 8 | | | | | 1 | | | | | 6 | | | +----+---+ + + | | 0 | Quick Note | EGD | | | 8 | | | | | 1 | | | | | 8 | | | +----+---+ + + | | 0 | Abx | | | | 8 | Administere | | | | 1 | d | | | | 8 | | | +----+---+ + + | | 0 | Incision | Insufflation | | | 8 | | | | | 5 | | | | | 5 | | | +----+---+ + + | | 0 | AN | Increased PEEP 5->7 | | | 9 | Recruitment | | | | 1 | Breath | | | | 9 | | | +----+---+ + + | | 0 | Quick Note | Steep reverse t-castillo | | | 9 | | | | | 5 | | | | | 5 | | | +----+---+ + + | | 1 | Quick Note | No apparent pneumothorax or blood loss | | | 1 | | | | | 2 | | | | | 3 | | | +----+---+ + + | | 1 | Quick Note | Starting mediastinal dissection | | | 1 | | | | | 4 | | | | | 9 | | | +----+---+ + + | | 1 | Quick Note | R Pneumothorax from surgeons, table flattened and PTX evacuated | | | 2 | | with R CT. | | | 0 | | | | | 5 | | | +----+---+ + + | | 1 | Quick Note | L chest tube placed | | | 2 | | | | | 2 | | | | | 6 | | | +----+---+ + + | | 1 | Quick Note | L chest tube to low suction | | | 2 | | | | | 4 | | | | | 7 | | | +----+---+ + + | | 1 | Quick Note | Both chest tubes to low continuous suction | | | 3 | | | | | 4 | | | | | 4 | | | +----+---+ + + | | 1 | Quick Note | Bed to half reverse trendelenberg | | | 4 | | | | | 0 | | | | | 3 | | | +----+---+ + + | | 1 | Quick Note | Flat table | | | 4 | | | | | 1 | | | | | 7 | | | +----+---+ + + | | 1 | Surgery end | | | | 4 | | | | | 4 | | | | | 4 | | | +----+---+ + + | | 1 | Quick Note | Surgeon bridling NGT | | | 4 | | | | | 4 | | | | | 8 | | | +----+---+ + + | | 1 | An Extubate | Neuromuscular function Intact. Pharynx suctioned. Patient obeys | | | 5 | | commands. Adequate pulmonary mechanics. | | | 0 | | | | | 4 | | | +----+---+ + + | | 1 | an stop | | | | 5 | data | | | | 1 | | | | | 5 | | | +----+---+ + + | | 1 | Anesthesia | | | | 5 | End | | | | 3 | | | | | 0 | | | +----+---+ + + +------+ | Meds | +------+ + + + | Name | Total | + + + | midazolam | 1 mg | + + + | propofol | 240 mg | + + + | lidocaine 2% | 100 mg | + + + | rocuronium | 150 mg | + + + | fentaNYL | 650 mcg | + + + | ondansetron | 4 mg | + + + | ePHEDrine | 40 mg | + + + | PHENYLephrine | 3,350 mcg | + + + | glycopyrrolate | 0.6 mg | + + + | neostigmine | 5 mg | + + + | sodium acetate-chloride (50:50) | 354.92 mL | | 3% IV infusion (hypertonic) | | + + + | cefOXitin (MEFOXIN) injection 2 g | 4 g | + + + | norepinephrine INF (8mg/250mL) | 1,845.76 mcg | + + + | lidocaine 1.5% EPINEPHrine 1:200K | 3 mL | + + + | succinylcholine | 100 mg | + + + | esmolol | 110 mg | + + + | dexamethasone | 4 mg | + + + | insulin regular | 3 Units | + + + | insulin regular INF (1unit/mL) | 10.35 Units | + + + | LR | 1,700 mL | + + + | LR | 800 mL | + + + | NS | 1,000 mL | + + + + + | Name | + + | O2 FR Avance (Total Liters) | + + | Air FR Avance (l/min) | + + | Insp Iso | + + | Et Iso | + + + + | No blood administrations on file. | + + +--------+ + + + | Type | Details | Placement | Removal | +--------+ + + + | Feedin | 03/27/15; 935; Dr. Akbar ; | 03/27/15935 by | | | g Tube | J-tube; Abdomen LL; 12 | Porsha Duran RN | | +--------+ + + + | Incisi | 03/27/15; umbilical area; | 03/27/15 0000 by | 07/08/17 0659 by | | on | 07/08/17 (Automatic cleanup per | Porsha Duran RN | Discontinued After | | | RA 3006--contact admin for | | Discharge | | | questions.); 0659 (Automatic | | | | | cleanup per RA 3006--contact | | | | | admin for questions.) | | | +--------+ + + + | Incisi | 03/27/15; Left; adb- lower | 03/27/15 0000 by | 07/08/17 0659 by | | on | quadrant; 07/08/17 (Automatic | Porsha Duran RN | Discontinued After | | | cleanup per RA 3006--contact | | Discharge | | | admin for questions.); 0659 | | | | | (Automatic cleanup per RA | | | | | 3006--contact admin for | | | | | questions.) | | | +--------+ + + + | Incisi | 03/27/15; Left; adb- upper | 03/27/15 0000 by | 07/08/17 0659 by | | on | quadrant; 07/08/17 (Automatic | Porsha Duran RN | Discontinued After | | | cleanup per RA 3006--contact | | Discharge | | | admin for questions.); 0659 | | | | | (Automatic cleanup per RA | | | | | 3006--contact admin for | | | | | questions.) | | | +--------+ + + + | Incisi | 03/27/15; Right; adb- lower | 03/27/15 0000 by | 07/08/17 0659 by | | on | quadrant; 07/08/17 (Automatic | Porsha Duran RN | Discontinued After | | | cleanup per RA 3006--contact | | Discharge | | | admin for questions.); 0659 | | | | | (Automatic cleanup per RA | | | | | 3006--contact admin for | | | | | questions.) | | | +--------+ + + + | Incisi | 03/27/15; Right; adb- upper | 03/27/15 0000 by | 07/08/17 0659 by | | on | quadrant; 07/08/17 (Automatic | Porsha Duran RN | Discontinued After | | | cleanup per RA 3006--contact | | Discharge | | | admin for questions.); 0659 | | | | | (Automatic cleanup per RA | | | | | 3006--contact admin for | | | | | questions.) | | | +--------+ + + + | Incisi | 03/27/15; Dr. Edgard DUNCAN; Left; | 03/27/15 0000 by | 07/08/17 0659 by | | on | Lateral; neck; 07/08/17 | Porsha Duran RN | Discontinued After | | | (Automatic cleanup per RA | | Discharge | | | 3006--contact admin for | | | | | questions.); 0659 (Automatic | | | | | cleanup per RA 3006--contact | | | | | admin for questions.) | | | +--------+ + + + | Incisi | 03/27/15; Anterior; epigastrium; | 03/27/15 0000 by | 07/08/17 0659 by | | on | 07/08/17 (Automatic cleanup per | Porsha Duran RN | Discontinued After | | | RA 3006--contact admin for | | Discharge | | | questions.); 0659 (Automatic | | | | | cleanup per RA 3006--contact | | | | | admin for questions.) | | | +--------+ + + + | Periph | 03/27/15; 0629; Left; Hand; 18 g; | 03/27/15 0629 by | 04/01/15 09 by | | eral | 04/01/15; 0930; Site problems | Nico Alvarado MD | Ladan Pollock RN | | IV | | | | +--------+ + + + | Epidur | 03/27/15; 0710; Thoracic; | 03/27/15 0710 by | 04/03/15 1318 by | | al | 04/03/15; 1318; Other (Comment) | Nico Alvarado MD | Eve Salguero RN | | | ( removed, transitioned to pain | | | | | meds through feeding tube) | | | +--------+ + + + | Arteri | 03/27/15; 0744; Standard; Left; | 03/27/15 0744 by | 03/28/15 1253 by | | al | Radial; 20g; 03/28/15; 1253 | Nico Alvarado MD | Rachel Moncada RN | | Line | | | | +--------+ + + + | Urethr | 03/27/15; 0745; Porsha Duran | 03/27/15 0745 by | 03/29/15 1300 by | | eriberto | PENNY; Anya; 16 Fr.; 10 mL; | Porsha Duran RN | Greer Kaba RN | | Cathet | 03/29/15; 1300; Per order | | | | er | | | | +--------+ + + + | Centra | 03/27/15; 0804; Right; Internal | 03/27/15 0804 by | 03/29/15 1300 by | | jaky Line | Jugular; 03/29/15; 1300 | Nico Alvarado MD | Greer Kaba RN | | - | | | | | Triple | | | | | Lumen | | | | +--------+ + + + | Periph | 03/27/15; 0813; Right; Hand; 16 | 03/27/15 0813 by | 03/31/15 0010 by | | lawrence | g; 03/31/15; 0010; Drainage | Nico Alvarado MD | Shana Nelson RN | | IV | (leaking) | | | +--------+ + + + | Naso/O | Dewey perez; Right Nare; no | 03/27/15916 by | 03/30/15 0817 by | | ro | complication; 03/30/15; 816 | | Kenyatta Light RN | | Tube | | | | +--------+ + + + | Chest | 03/27/15; 1212; Raffy; Standard; | 03/27/15 1212 by | 04/05/15 0900 by | | Tube | Right; Lateral; Middle; 28 Fr.; | Som Stevens RN | Marsha Lacy, | | | 1; 04/05/15; 0900 | | RN | +--------+ + + + | Chest | 03/27/15; 1226; Yissel French; | 03/27/15 1226 by | 04/01/15 0000 by | | Tube | Standard; Left; Lateral; 28 Fr.; | Som Stevens RN | Leyda Johnston RN | | | 2; 04/01/15 | | | +--------+ + + + | Drain | 03/27/15; 1415; Dr. Rene; MARLYS; | 03/27/15 1415 by | 03/29/15 1145 by | | | Left; neck; 03/29/15; 1145; Per | Porsha Duran RN | Greer Kaba RN | | | order | | | +--------+ + + + documented in this encounter Social History + + + +--------+ + | Tobacco Use | Types | Packs/Day | Years | Date | | | | | Used | | + + + +--------+ + | Former Smoker | Cigarettes | 1 | 50 | Quit: 12/25/2007 | + + + +--------+ + + +-------+---+---+ | Smokeless Tobacco: | Snuff | | | | Former User | | | | + +-------+---+---+ + + | Comments: smokey moutain pure mint leaves snuff (nicotine free) | + + + + +---------+ + | Alcohol Use | Drinks/Week | oz/Week | Comments | + + +---------+ + | Yes | 14 Standard drinks | 11.7 | | | | or equivalent | | | + + +---------+ + + + + | Sex Assigned at | Date Recorded | | | | + + + | Not on file | | + + + + + + + | Job Start Date | Occupation | Industry | + + + + | Not on file | Not on file | Not on file | + + + + + + + + | Travel History | Travel Start | Travel End | + + + + + + | No recent travel history available. | + + documented as of this encounter Plan of Treatment Not on filedocumented as of this encounter Visit Diagnoses Not on filedocumented in this encounter Administered Medications + +--------+ +------+------+------+ | Medication Order | MAR | Action | Dose | Rate | Site | | | Action | Date | | | | + +--------+ +------+------+------+ | cefOXitin (MEFOXIN) injection 2 | Given | 03/27/20 | 2 g | | | | g 2 g, intravenous, | | 15 12:15 | | | | | PREPROCEDURE ONCE, 1 dose, | | PM PDT | | | | | Starting Kati 03/27/15 at 0658, | | | | | | | Until Kati 03/27/15 at 1215 | | | | | | + +--------+ +------+------+------+ +-------+ +-----+---+---+ | Given | 03/27/20 | 2 g | | | | | 15 8:18 | | | | | | AM PDT | | | | +-------+ +-----+---+---+ +---+---+ | | | +---+---+ + +-------+ +------+---+---+ | dexamethasone (DECADRON) | Given | 03/27/20 | 4 mg | | | | injection intravenous, | | 15 9:24 | | | | | INTRAPROCEDURE PRN, Starting Kati | | AM PDT | | | | | 03/27/15 at 0924, Until Kati 03/27/15 | | | | | | | at 1547 | | | | | | + +-------+ +------+---+---+ +---+---+ | | | +---+---+ + +-------+ +-------+---+---+ | ePHEDrine injection | Given | 03/27/20 | 10 mg | | | | intravenous, INTRAPROCEDURE PRN, | | 15 8:00 | | | | | Starting Kati 03/27/15 at 0710, | | AM PDT | | | | | Until Kati 03/27/15 at 1547 | | | | | | + +-------+ +-------+---+---+ +-------+ +-------+---+---+ | Given | 03/27/20 | 10 mg | | | | | 15 7:59 | | | | | | AM PDT | | | | +-------+ +-------+---+---+ | Given | 03/27/20 | 10 mg | | | | | 15 7:16 | | | | | | AM PDT | | | | +-------+ +-------+---+---+ +---+---+ | | | +---+---+ + +-------+ +-------+---+---+ | esmolol (BREVIBLOC) injection | Given | 03/27/20 | 20 mg | | | | intravenous, INTRAPROCEDURE PRN, | | 15 12:08 | | | | | Starting Kati 03/27/15 at 0815, | | PM PDT | | | | | Until Kati 03/27/15 at 1547 | | | | | | + +-------+ +-------+---+---+ +-------+ +-------+---+---+ | Given | 03/27/20 | 20 mg | | | | | 15 8:27 | | | | | | AM PDT | | | | +-------+ +-------+---+---+ | Given | 03/27/20 | 20 mg | | | | | 15 8:15 | | | | | | AM PDT | | | | +-------+ +-------+---+---+ +---+---+ | | | +---+---+ + +-------+ +--------+---+---+ | fentaNYL citrate (PF) | Given | 03/27/20 | 25 mcg | | | | (SUBLIMAZE) injection | | 15 2:34 | | | | | INTRAPROCEDURE PRN, Starting Kati | | PM PDT | | | | | 03/27/15 at 0653, Until Kati 03/27/15 | | | | | | | at 1547, sedation | | | | | | + +-------+ +--------+---+---+ +-------+ +---------+---+---+ | Given | 03/27/20 | 25 mcg | | | | | 15 2:28 | | | | | | PM PDT | | | | +-------+ +---------+---+---+ | Given | 03/27/20 | 100 mcg | | | | | 15 10:18 | | | | | | AM PDT | | | | +-------+ +---------+---+---+ +---+---+ | | | +---+---+ + +-------+ +--------+---+---+ | glycopyrrolate (ROBINUL) | Given | 03/27/20 | 0.6 mg | | | | injection INTRAPROCEDURE PRN, | | 15 2:26 | | | | | Starting Kati 03/27/15 at 1426, | | PM PDT | | | | | Until Kati 03/27/15 at 1547 | | | | | | + +-------+ +--------+---+---+ +---+---+ | | | +---+---+ + +-------+ +---------+---+---+ | insulin regular bolus from | Given | 03/27/20 | 2 Units | | | | continuous infusion | | 15 12:45 | | | | | INTRAPROCEDURE PRN, Starting Kati | | PM PDT | | | | | 03/27/15 at 1143, Until Kati 03/27/15 | | | | | | | at 1547 | | | | | | + +-------+ +---------+---+---+ +-------+ +---------+---+---+ | Given | 03/27/20 | 1 Units | | | | | 15 11:43 | | | | | | AM PDT | | | | +-------+ +---------+---+---+ +---+---+ | | | +---+---+ + + + + +---------+---+ | insulin regular in NaCl 0.9% IV | Rate/Dos | 03/27/20 | 3 | 3 mL/hr | | | infusion 250 units/250 mL (1 | e Change | 15 12:45 | Units/hr | | | | unit/mL) INTRAPROCEDURE | | PM PDT | | | | | CONTINUOUS PRN, Starting Kati | | | | | | | 03/27/15 at 1142, Until Kati 03/27/15 | | | | | | | at 1547 | | | | | | + + + + +---------+---+ +---------+ + +---------+---+ | New Bag | 03/27/20 | 2 | 2 mL/hr | | | | 15 11:42 | Units/hr | | | | | AM PDT | | | | +---------+ + +---------+---+ +---+---+ | | | +---+---+ + + + +---+---+---+ | lactated ringers IV | given by | 03/27/20 | | | | | INTRAPROCEDURE CONTINUOUS PRN, | | 15 1:28 | | | | | Starting Kati 03/27/15 at 0710, | anesthes | PM PDT | | | | | Until Kati 03/27/15 at 1547 | iology | | | | | + + + +---+---+---+ + + +---+---+---+ | given by anesthesiology | 03/27/20 | | | | | | 15 12:15 | | | | | | PM PDT | | | | + + +---+---+---+ | given by anesthesiology | 03/27/20 | | | | | | 15 9:59 | | | | | | AM PDT | | | | + + +---+---+---+ +---+---+ | | | +---+---+ + + + +---+---+---+ | lactated ringers IV | given by | 03/27/20 | | | | | INTRAPROCEDURE CONTINUOUS PRN, | | 15 1:28 | | | | | Starting Kati 03/27/15 at 1239, | anesthes | PM PDT | | | | | Until Kati 03/27/15 at 1547 | iology | | | | | + + + +---+---+---+ + + +---+---+---+ | given by anesthesiology | 03/27/20 | | | | | | 15 1:03 | | | | | | PM PDT | | | | + + +---+---+---+ | given by anesthesiology | 03/27/20 | | | | | | 15 12:56 | | | | | | PM PDT | | | | + + +---+---+---+ +---+---+ | | | +---+---+ + +-------+ +--------+---+---+ | lidocaine PF (XYLOCAINE MPF) 20 | Given | 03/27/20 | 100 mg | | | | mg/mL (2 %) injection | | 15 7:36 | | | | | INTRAPROCEDURE PRN, Starting Kati | | AM PDT | | | | | 03/27/15 at 0736, Until Kati 03/27/15 | | | | | | | at 1547 | | | | | | + +-------+ +--------+---+---+ +---+---+ | | | +---+---+ + +-------+ +------+---+---+ | lidocaine-EPINEPHrine | Given | 03/27/20 | 3 mL | | | | (XYLOCAINE-MPF WITH EPINEPHRINE) | | 15 7:03 | | | | | 1.5 %-1:200,000 injection | | AM PDT | | | | | INTRAPROCEDURE PRN, Starting Kati | | | | | | | 03/27/15 at 0703, Until Kati 03/27/15 | | | | | | | at 1547 | | | | | | + +-------+ +------+---+---+ +---+---+ | | | +---+---+ + +-------+ +------+---+---+ | midazolam (VERSED) injection | Given | 03/27/20 | 1 mg | | | | INTRAPROCEDURE PRN, Starting Kati | | 15 6:53 | | | | | 03/27/15 at 0653, Until Kati 03/27/15 | | AM PDT | | | | | at 1547, sedation | | | | | | + +-------+ +------+---+---+ +---+---+ | | | +---+---+ + + + +---+---+---+ | NaCl 0.9 % IV INTRAPROCEDURE | given by | 03/27/20 | | | | | CONTINUOUS PRN, Starting Kati | | 15 12:55 | | | | | 03/27/15 at 0813, Until Kati 03/27/15 | anesthes | PM PDT | | | | | at 1547 | iology | | | | | + + + +---+---+---+ + + +---+---+---+ | given by anesthesiology | 03/27/20 | | | | | | 15 12:15 | | | | | | PM PDT | | | | + + +---+---+---+ | given by anesthesiology | 03/27/20 | | | | | | 15 10:45 | | | | | | AM PDT | | | | + + +---+---+---+ +---+---+ | | | +---+---+ + +-------+ +------+---+---+ | neostigmine (PROSTIGMIN) | Given | 03/27/20 | 5 mg | | | | injection intravenous, | | 15 2:26 | | | | | INTRAPROCEDURE PRN, Starting Kati | | PM PDT | | | | | 03/27/15 at 1426, Until Kati 03/27/15 | | | | | | | at 1547 | | | | | | + +-------+ +------+---+---+ +---+---+ | | | +---+---+ + + + + +-------+---+ | norepinephrine (LEVOPHED) IV | Rate/Dos | 03/27/20 | 0.04 | 6.18 | | | infusion (ICU, Omnicell) | e Change | 15 2:18 | mcg/kg/m | mL/hr | | | intravenous, INTRAPROCEDURE | | PM PDT | in | | | | CONTINUOUS PRN, Starting Kati | | | | | | | 03/27/15 at 0832, Until Kati 03/27/15 | | | | | | | at 1547 | | | | | | + + + + +-------+---+ + + + +--------+---+ | Rate/Dose Change | 03/27/20 | 0.08 | 12.36 | | | | 15 12:29 | mcg/kg/m | mL/hr | | | | PM PDT | in | | | + + + +--------+---+ | Rate/Dose Change | 03/27/20 | 0.1 | 15.45 | | | | 15 12:17 | mcg/kg/m | mL/hr | | | | PM PDT | in | | | + + + +--------+---+ +---+---+ | | | +---+---+ + +-------+ +------+---+---+ | ondansetron (ZOFRAN) injection | Given | 03/27/20 | 4 mg | | | | INTRAPROCEDURE PRN, Starting Kati | | 15 2:15 | | | | | 03/27/15 at 1415, Until Kati 03/27/15 | | PM PDT | | | | | at 1547 | | | | | | + +-------+ +------+---+---+ +---+---+ | | | +---+---+ + +-------+ +---------+---+---+ | PHENYLEPHrine 100 mcg/mL | Given | 03/27/20 | 200 mcg | | | | injection (OR syringe) | | 15 1:52 | | | | | intravenous, INTRAPROCEDURE PRN, | | PM PDT | | | | | Starting Kati 03/27/15 at 0838, | | | | | | | Until Kati 03/27/15 at 1547 | | | | | | + +-------+ +---------+---+---+ +-------+ +---------+---+---+ | Given | 03/27/20 | 100 mcg | | | | | 15 1:47 | | | | | | PM PDT | | | | +-------+ +---------+---+---+ | Given | 03/27/20 | 100 mcg | | | | | 15 1:43 | | | | | | PM PDT | | | | +-------+ +---------+---+---+ +---+---+ | | | +---+---+ + +-------+ +-------+---+---+ | propofol INTRAPROCEDURE PRN, | Given | 03/27/20 | 40 mg | | | | Starting Kati 03/27/15 at 0737, | | 15 2:48 | | | | | Until Kati 03/27/15 at 1547 | | PM PDT | | | | + +-------+ +-------+---+---+ +-------+ +-------+---+---+ | Given | 03/27/20 | 40 mg | | | | | 15 8:27 | | | | | | AM PDT | | | | +-------+ +-------+---+---+ | Given | 03/27/20 | 40 mg | | | | | 15 8:15 | | | | | | AM PDT | | | | +-------+ +-------+---+---+ +---+---+ | | | +---+---+ + +-------+ +-------+---+---+ | rocuronium (ZEMURON) injection | Given | 03/27/20 | 30 mg | | | | INTRAPROCEDURE PRN, Starting Kati | | 15 12:22 | | | | | 03/27/15 at 0811, Until Kati 03/27/15 | | PM PDT | | | | | at 1547, Neuromuscular block | | | | | | + +-------+ +-------+---+---+ +-------+ +-------+---+---+ | Given | 03/27/20 | 20 mg | | | | | 15 11:06 | | | | | | AM PDT | | | | +-------+ +-------+---+---+ | Given | 03/27/20 | 50 mg | | | | | 15 10:01 | | | | | | AM PDT | | | | +-------+ +-------+---+---+ +---+---+ | | | +---+---+ + + + + + +---+ | sodium acetate-chloride (50:50) | Rate/Dos | 03/27/20 | 30 mL/hr | 30 mL/hr | | | 3% IV infusion (hypertonic) | e Change | 15 2:07 | | | | | intravenous, CONTINUOUS, Starting | | PM PDT | | | | | Kati 03/27/15 at 0700, Until Kati | | | | | | | 03/27/15 at 1804 | | | | | | + + + + + +---+ + + + + +---+ | Rate/Dose Change | 03/27/20 | 75 mL/hr | 75 mL/hr | | | | 15 12:00 | | | | | | PM PDT | | | | + + + + +---+ | Rate/Dose Change | 03/27/20 | 50 mL/hr | 50 mL/hr | | | | 15 9:25 | | | | | | AM PDT | | | | + + + + +---+ +---+---+ | | | +---+---+ + +-------+ +--------+---+---+ | SUCCINYLCHOLINE CHLORIDE 20 | Given | 03/27/20 | 100 mg | | | | MG/ML INJ (PROSED/RSI) | | 15 7:37 | | | | | INTRAPROCEDURE PRN, Starting Kati | | AM PDT | | | | | 03/27/15 at 0737, Until Kati 03/27/15 | | | | | | | at 1547, Neuromuscular block | | | | | | + +-------+ +--------+---+---+ +---+---+ | | | +---+---+ documented in this encounter"
--- OUTSIDE RECORDS SUMMARY | ~2020-01-10 | XMS | Encounter Summary ---
Demographics + + + | Address | [address] | | | [place] [address] | + + + | Home Phone | | + + + | Preferred Language | Unknown | + + + | Marital Status | | + + + | Buddhism Affiliation | NON | + + + | Race | White | + + + | Ethnic Group | Not or | + + + Author + + + | Author | [facility] | + + + | Organization | [facility] | + + + | Address | Unknown | + + + | Phone | Unavailable | + + + Support + + + + + | Name | Relationship | Address | Phone | + + + + + | Selena Jimenez | ECON | [address] | | | | | [place] | | | | | [phone] | | + + + + + | Ronny Rene | ECON | Unknown | + | + + + + + | Char Woodard | ECON | Unknown | | + + + + + Care Team Providers + +------+ + | Care Medical Specialist Name | Role | Phone | + +------+ + | David Ferrera MD | PCP | | + +------+ + Encounter Details +--------+ + + + + | Date | Type | Department | Care Team | Description | +--------+ + + + + | 01/30/ | Procedure | [facility] | | | | 2019 | Pass | [facility] | | [facility] | | | | | | Center Admitting | | | | | | Desk Located on the | | | | | | 4th floor [address] | | | | | | [address] [place], | | | | | | [place] [address] | | | +--------+ + + + + Social History + + + +--------+ + [...] Comments | + + +---------+ + | Not Currently | 14 Standard drinks | 11.7 | previously drank two | | | or equivalent | | large bourdon | | | | | drinks nightly until | | | | | January 16 | + + +---------+ + + + [...] Visit Diagnoses Not on filedocumented in this encounter"
--- OUTSIDE RECORDS SUMMARY | ~2020-01-10 | XMS | Encounter Summary ---
Demographics + + + | Address | [address] | | | [place] [address] | + + + | Home Phone | | + + + | Preferred Language | Unknown | + + + | Marital Status | | + + + | Synagogue Affiliation | NON | + + + | Race | White | + + + | Ethnic Group | Not or | + + + Author + + + | Author | [facility] | + + + | Organization | [facility] | + + + | Address | Unknown | + + + | Phone | Unavailable | + + + Support + + + + + | Name | Relationship | Address | Phone | + + + + + | Selena Jimenez | ECON | [address] | | | | | [place] | | | | | [address] | | + + + + + | Ronny Rene | ECON | Unknown | | + + + + + | Char Woodard | ECON | Unknown | | + + + + + Care Team Providers + +------+ + | Care Pocket Closer Name | Role | Phone | + +------+ + | David Ferrera MD | PCP | | + +------+ + Reason for Visit AUTH/CERT +--------+--------+ + + + + | Status | Reason | Specialty | Diagnoses / | Referred By | Referred To | | | | | Procedures | Contact | Contact | +--------+--------+ + + + + | | | | | | | +--------+--------+ + + + + Encounter Details +--------+---------+ + + + | Date | Type | Department | Care Team | Description | +--------+---------+ + + + | 01/30/ | Surgery | [facility] | Glenn Siegel MD | RIGHT OPEN REDUCTION | | 2019 | [facility] | [address] | WITH INTERNAL | | | | and Healing Surgery | [address] | FIXATION OF RIGHT | | | | Center Admitting | [place], [place] | PROXIMAL HUMERUS | | | | Desk Located on the | [id number] | FRACTURE | | | | 4th floor [address] | [phone] | | | | | Page [place], | | | | | | [place] [address] | | | +--------+---------+ + + + Social History + + [...] + + documented as of this encounter Last Filed Vital Signs + + + + + | Vital Sign | Reading | Time Taken | Comments | + + + + + | Blood Pressure | 115/61 | 01/31/2019 7:43 AM | | | | | PDT | | + + + + + | Pulse | 101 | 01/31/2019 7:43 AM | | | | | PDT | | + + + + + | Temperature | 36.2 C (97.2 F) | 01/31/2019 7:43 AM | | | | | PDT | | + + + + + | Respiratory Rate | 18 | 01/31/2019 7:43 AM | | | | | PDT | | + + + + + | Oxygen Saturation | 95% | 01/31/2019 7:43 AM | | | | | PDT | | + + + + + | Inhaled Oxygen | - | - | | | Concentration | | | | + + + + + | Weight | 74.8 kg (165 lb) | 2019 8:34 AM | | | | | PDT | | + + + + + | Height | 177.8 cm (5' 10") | 2019 8:34 AM | | | | | PDT | | + + + + + | Body Mass Index | 23.68 | 2019 8:34 AM | | | | | PDT | | + + + + + documented in this encounter Discharge Instructions Discharge - Day Procedure Instructions Manolo Gallego MD - 2019 12:21 PM PDTRESTRICTIONS: Non-weight bearing, right upper extremity Maintain sling. Okay to come out of sling for elbow range of motion daily. Okay to come out of sling for shoulder passive pendulum swings daily starting on Tuesday. Otherwise keep arm in sling WOUND INSTRUCTIONS Do not get the bandage wet. Change bandage on Tuesday. If it is draining, place a new clean bandage overtop the wound. Keep incision site clean and dry. Do not put lotions, powders, or creams on the wound OK to shower, do not scrub the wound, allow water to run over, dab dry with towel Do NOT submerge the wound. ie- no swimming, bathing in a bathtub, no hot tubs, etc. Take Tylenol, 2 tablets every 4-6 hours as needed or pain or prescribed medication as direc francie. For wounds on arms or legs, keep site elevated above the heart for the next 24 hours. CALL THE OFFICE IF The bandage becomes saturated with blood or if bleeding persists after the first day. You are having a great deal of pain not relieved by Tylenol or your prescription medication . Pain after 48 hours is not expected. The wound appears to be worse instead of better each day (there is increased pain, swelling , bruising, warmth, redness or drainage). documented in this encounter Medications at Time of Discharge + + + +---------+ + + | Medication | Sig | Dispensed | Refills | Start | End Date | | | | | | Date | | + + + +---------+ + + | acetaminophen 500 | Take 1 tablet by | | 0 | 01/31/20 | | | mg oral | mouth four times | | | 19 | | | tabletIndications: | daily as needed | | | | | | pain | (mild to moderate | | | | | | | pain). Indications: | | | | | | | Pain | | | | | + + + +---------+ + + | aspirin chewable | Chew and swallow 81 | | 0 | 04/07/20 | | | (CHILDRENS ASPIRIN) | mg once daily. | | | 15 | | | 81 mg oral | | | | | | | tablet,chewable | | | | | | + + + +---------+ + + | atorvastatin 80 mg | 1 tablet by feeding | 1 | 0 | 04/07/20 | | | oral tablet | tube route once | tablet | | 15 | | | | daily. | | | | | + + + +---------+ + + | ibuprofen 400 mg | Take 1 tablet by | | 0 | 01/31/20 | | | oral | mouth every four | | | 19 | | | tabletIndications: | hours as needed | | | | | | pain | (mild to moderate | | | | | | | pain). Indications: | | | | | | | Pain | | | | | + + + +---------+ + + | multivitamin with | Take 400 mcg by | | 0 | | | | folic acid 400 mcg | mouth once daily. | | | | | | oral tablet | | | | | | + + + +---------+ + + | omeprazole 40 mg | Take 1 capsule by | 30 | 3 | 10/11/19 | | | oral capsule,delayed | mouth once daily. 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 | | | | | + + + +---------+ + + | oxyCODONE | Take 0.5-1.5 tablets | 25 | 0 | 01/31/20 | | | (immediate release) | by mouth every four | tablet | | 19 | | | 5 mg oral | hours as needed for | | | | | | tabletIndications: | moderate pain or | | | | | | pain | severe pain. | | | | | | | Indications: Pain | | | | | + + + +---------+ + + documented as of this encounter Progress Notes Manolo Gallego MD - 01/31/2019 7:07 AM PDT Orthopaedic Hand Surgery Progress Note Diagnosis: R prox humerus fx Procedures: ORIF R prox humerus S: Reports nerve block wearing off and becoming somewhat painful this morning. Unable to sleep last night. PO pain meds improved pain this AM. Voiding spontaneously. Patient expresses de sire to DC home today. O: Last Vitals: BP 112/53 | Pulse 95 | Temp 36.9 C (98.4 F) (Oral) | Resp 18 | Ht 1.77 8 m (5' 10") | Wt 74.8 kg (165 lb) | SpO2 99% | BMI 23.68 kg/m | BSA 1.92 m 24 Hour Vital Min/Max: Systolic (24hrs), Av , Min:86 , Max:139 Diastolic (24hrs), Av, Min:53, Max:76 Pulse Min: 61 Max: 120 Temp Min: 36.3 C (97.3 F) Max: 37.1 C (98.8 F) Resp Min: 16 Max: 30 SpO2 Min: 95 % Max: 100 % Intake/Output Summary (Last 24 hours) at 01/31/2019 0710 Last data filed at 01/31/2019 0611 Gross per 24 hour Intake 3120 ml Output 1450 ml Net 1670 ml NAD Dressings c/d/i, right arm in sling, nerve block in place SILT m/u/r/a nerve distributions with some decreased sensation globally in hand, likely sec ondary to block. Makes okay sign, crosses fingers, abducts fingers, thumbs up Fingers pink and warm A/P: Doing well s/p ORIF right prox humerus fx. Tachycardic overnight to the 120's, now s/p a to stone of 1L bolus with appropriate response. Voiding normally with some retention. Stable and ready for discharge. - Weightbearing: Non-weight bearing, right upper extremity. Maintain dressings and sling until clinic follow up. Follow up :Please call the clinic to make a follow up appointment in approximately 2 weeks with UPPER EXTREMITY, Manolo Gallego MD PGY-3 Orthopedic Pager: #[phone] [facility] Department of Orthopaedics & Rehabilitation [address] [place] [address] Mail Code: [address] [place] [address] Nurys Lan RN - 01/31/2019 1:31 AM PDT01:00 Pt's HR reaching low 120s on the pulse oximeter. Pt den ies pain, SOB, or chest pain. BP 104/58. KRYSTA Martinez notified. 500 LR bolus ordered and giv en. UNDERWATER HUNTER TRAPPER saw pt at bedside. Will continue to monitor and reassess HR. 01:31 Pt voiding hourly. Bladder scan read 315mL. Bladder non-distended, pt denies discomfo rt. KRYSTA Martinez notified. Continuing to monitor at this time. Oma Banegas AGACNP - 2019 10:10 PM PDT Overnight Progress Note Author: Oma Martinez, [facility]- Attending Physician: Glenn Siegel MD I assumed overnight care of this patient, reviewed their Primary Surgical Team's sign out r eport, and physically assessed the patient. Please see the primary providers note for com plete elements of the surgical report and post operative plan. SUBJECTIVE Brief HPI: Junaid Jimenez is a 79 y.o. male with a PMHx significant for CAD, IL, HLD, GERD, Chronic back pain, severe esophageal dysplasia, and chronic back pain who sustained a closed displaced fracture of proximal end of right humerus after falling at home on January 16. He is s/p open reduction with internal fixation of right proximal humerus fracture on 01/31/20. He is admitted for overnight post operative monitoring and teaching. Interval History: Seen this evening post-op: VSS, Afebrile this. Resting quietly, denies shoulder pain, CP, S OB, or N/V. OBJECTIVE Last Vitals: BP 97/62 (BP Location: Left upper arm) | Pulse 111 | Temp 36.3 C (97.3 F ) | Resp 20 | Ht 1.778 m (5' 10") | Wt 74.8 kg (165 lb) | SpO2 99% | BMI 23.68 kg/m | BSA 1.92 m 24 Hour Vital Min/Max: Systolic (24hrs), Av , Min:86 , Max:139 Diastolic (24hrs), Av, Min:55, Max:76 Pulse Min: 61 Max: 114 Temp Min: 36.3 C (97.3 F) Max: 37.1 C (98.8 F) Resp Min: 16 Max: 30 SpO2 Min: 95 % Max: 100 % Intake/Output Summary (Last 24 hours) at 2019 2211 Last data filed at 2019 1800 Gross per 24 hour Intake 2620 ml Output 725 ml Net 1895 ml Drains: Patient Lines/Drains/Airways Status Active Lines, Drains and Airways Name: Placement date: Placement time: Site: Days: Peripheral Nerve Block 01/30/19 0955 less than 1 Peripheral IV Left Antecubital 20 g 01/30/19 0903 Antecubital less than 1 Peripheral IV Left Wrist 18 g 01/30/19 1320 Wrist less than 1 Wound Right gluteal Abrasion;Pressure ulcer 01/30/19 0826 gluteal less than 1 Incision Right shoulder 01/30/19 less than 1 Brief Physical Exam General: Appears calm, NAD. Neuro: AAOX4, responses appropriate. HEENT: [place]. Respiratory: Normal WOB, CTAB anteriorly, on RA. Cardiovascular: RRR, no murmurs or rubs noted. Radial pulses +2, DP pulses +1, cap refill <3 secs to all 4 extremities. Abdomen: Abd soft, flat, BS audible. No tenderness or guarding. : No garcia, voiding spontaneously Skin/Extremities: warm, dry and intact. No bruising or hematoma noted. - Left arm in sling, pain block site CDI. Pertinent Lab and Diagnostics Chemistries Recent Labs 01/29/19 1422 NA 136 K 4.6 CL 104 BICARB 26 BUN 27* CR 1.17 GLU 103* CA 10.3* CBC with diff Recent Labs 01/29/19 1422 WBC 10.98* RBC 4.10* HB 11.8* HCT 37.2* PLT 486* Currently Administered Medications Medications Continuous Medication Dose/Rate, Route, Frequency Last Action ropivacaine 0.2% peripheral nerve block ([facility], Single, I-Flow pump) 6 mL/hr, 6 mL/hr, inj, CONTINUOUS New Ba/14 1602 Scheduled Medication Dose/Rate, Route, Frequency Last Action aspirin chewable tablet 81 mg 81 mg, oral, DAILY Ordered atorvastatin (LIPITOR) tablet 80 mg 80 mg, oral, DAILY Ordered omeprazole (PRILOSEC) capsule 40 mg 40 mg, oral, BEFORE BREAKFAST Ordered polyethylene glycol (MIRALAX) packet 17 g 17 g, oral, DAILY Given: 01/31 2036 senna-docusate (SENOKOT S) 8.6-50 mg 2 tablet 2 tablet, oral, BID Given: 01/30 2035 PRN Medication Dose/Rate, Route, Frequency Last Action bisacodyl (DULCOLAX) suppository 10 mg 10 mg, rect, DAILY PRN Ordered ibuprofen (MOTRIN) tablet 600 mg 600 mg, oral, Q6H PRN Ordered melatonin tablet 3 mg 3 mg, oral, HS PRN Ordered ondansetron (ZOFRAN) injection 4 mg 4 mg, IV, Q12H PRN Ordered oxyCODONE (immediate release) (ROXICODONE) tablet 5-10 mg 5-10 mg, oral, Q4H PRN Ordered polyethylene glycol (MIRALAX) packet 34 g 34 g, oral, TID PRN Ordered ASSESSMENT/PLAN Junaid Jimenez is a 79 y.o. male patient who is s/p open reduction with internal fixation of right proximal humerus fracture (with general and regional blocks) on 2019. Post-oper atively, he has remained stable. He is being monitored overnight with plans for discharge in am. Post Operative Goals: Pulmonary/Hygeine -IS/Turn/Cough/Deep breathe - Keep Spo2 >/= 94% Bowel Status/Regimen: Scheduled Senokot and Miralax, PRN Dulcolax and Miralax. Diet/Tolerance: ADAT (now on regular, no n/v) Pain Management: Stable on current regimen. Activity/Restrictions: Up with assistance, keep arm in sling. Prophylaxis DVT: SCDs/Ambulation. PUD: Omeprazole Bowel: As above Code Status: FULL Anticipated Discharge Date: 01/31/2019 Disposition: Continuous monitoring in the [facility] Overnight Events or Concerns: Acute events will be documented in separate note. Non-acute overnight care changes will be documented in Handoff in bold under outpatient care unit serv ice. Thank you for the opportunity to participate in this patient's care. SHERLYN [facility]bot-[facility] General Surgery [facility] Outpatient Care Unit Pager# [phone] 10:11 PM 2019 documented i n this encounter Plan of Treatment + +---------+--------+ + + | Name | Type | Priori | Associated Diagnoses | Order Schedule | | | | ty | | | + +---------+--------+ + + | INTRAPROCEDURE | Imaging | Routin | | One Time for 1 | | IMAGING | | e | | Occurrences starting | | | | | | 2019 until | | | | | | 2019, 1 | | | | | | completed | + +---------+--------+ + + documented as of this encounter Procedures + +--------+ + + + | Procedure Name | Priori | Date/Time | Associated Diagnosis | Comments | | | ty | | | | + +--------+ + + + | PROCEDURE NOTE | Routin | 01/31/2019 | | Results for this | | | e | 9:04 AM | | procedure are in the | | | | PDT | | results section. | + +--------+ + + + | PROCEDURE NOTE | Routin | 01/31/2019 | | Results for this | | | e | 9:04 AM | | procedure are in the | | | | PDT | | results section. | + +--------+ + + + | CBC (HEMOGRAM) ONLY | Routin | 01/31/2019 | | Results for this | | | e | 6:25 AM | | procedure are in the | | | | PDT | | results section. | + +--------+ + + + | CAPILLARY BLOOD | Routin | 01/31/2019 | Closed fracture of | Results for this | | GLUCOSE (NO CHG), | e | 6:25 AM | proximal end of | procedure are in the | | POC | | PDT | humerus, unspecified | results section. | | | | | fracture | | | | | | morphology, | | | | | | unspecified | | | | | | laterality, initial | | | | | | encounter | | + +--------+ + + + | BASIC METABOLIC SET | Routin | 01/31/2019 | | Results for this | | (NA, K, CL, TCO2, | e | 6:25 AM | | procedure are in the | | BUN, CR, GLU, CA) | | PDT | | results section. | + +--------+ + + + | CBC ONLY | Routin | 01/31/2019 | | Results for this | | | e | 6:25 AM | | procedure are in the | | | | PDT | | results section. | + +--------+ + + + | X-RAY HUMERUS 2 | Routin | 2019 | | Results for this | | VIEWS RIGHT | e | 3:15 PM | | procedure are in the | | | | PDT | | results section. | + +--------+ + + + | X-RAY FLUOROSCOPY > | Routin | 2019 | | Results for this | | 1 HOUR | e | 3:14 PM | | procedure are in the | | | | PDT | | results section. | + +--------+ + + + | PROXIMAL HUMERUS | Electi | 2019 | [id number] | | | OPEN REDUCTION | ve | 12:30 PM | (ICD-10-CM) - 719.41 | | | INTERNAL FIXATION | Surgic | PDT | (ICD-9-CM) - | | | | al | | Shoulder pain, | | | | | | unspecified | | | | | | chronicity, | | | | | | unspecified | | | | | | laterality S42.291A | | | | | | (ICD-10-CM) - | | | | | | 812.09 (ICD-9-CM) - | | | | | | Other closed | | | | | | displaced fracture | | | | | | of proximal end of | | | | | | right humerus, | | | | | | initial encounter | | + +--------+ + + + | INTRAPROCEDURE | Routin | 2019 | | Results for this | | IMAGING | e | 9:06 AM | | procedure are in the | | | | PDT | | results section. | + +--------+ + + + | CARDIOLOGY | | 2019 | | Results for this | | | | 12:00 AM | | procedure are in the | | | | PDT | | results section. | + +--------+ + + + documented in this encounter Results PROCEDURE NOTE (01/31/2019 9:04 AM PDT)PROCEDURE NOTE (01/31/2019 9:04 AM PDT) + + + | Narrative | Performed At | + + + | Glenn Seigel MD 02/03/2019 2:11 PM Date: 2019 | | | Attending Surgeon: Glenn Siegel M.D. Shuttler Car(s): Manolo | | | MD Lashonda Preoperative Diagnosis(es): right 2- part | | | surgical neck proximal humerus fracture Postoperative | | | Diagnosis(es): right 2- part surgical neck proximal humerus fracture | | | Procedures Performed: Open reduction with internal fixation of | | | right 2- part surgical neck proximal humerus fracture Clinical | | | Preamble: The patient presented with severe pain and functional | | | limitation of the right shoulder following an acute injury. The | | | patient was diagnosed with a right 2- part surgical neck proximal | | | humerus fracture. We discussed the options of conservative | | | management, open reduction with internal fixation and shoulder | | | hemiarthroplasty with the inherent risks and benefits of each. | | | Specific risks of open reduction with internal fixation discussed | | | included risks of infection, nerve or vessel injury, stiffness, | | | persistent pain, nonunion or malunion, avascular necrosis and | | | post-traumatic arthritis. The patient elected to proceed with open | | | reduction with internal fixation of this fracture. Procedure: | | | Under a combination of regional and general anesthetic, the patient | | | was placed in a beachchair position, and the right arm was prepped, | | | and free-draped in sterile fashion. Intravenous antibiotics were | | | administered. A surgical time-out was performed. A | | | deltopectoral approach was performed through a 12-cm anterior | | | shoulder incision. The axillary nerve was identified and protected. | | | The long-head biceps tendon was identified and used as a landmark to | | | orient to the fracture fragments. A large lesser tuberosity | | | fragment was present. The articular surface of the humeral head | | | was intact. The greater tuberosity was intact with proximal | | | humerus and the posterior rotator cuff. Given this fracture anatomy | | | and patient factors, it was felt that the patient was best served by | | | open reduction with internal fixation. The proximal humeral | | | fragment was reduced with a bone elevator to restore alignment with | | | respect to the glenoid and humeral shaft. Fluoroscopy was utilized | | | to assist in fracture reduction and confirm hardware position. The | | | Acumed proximal humeral 10 hole plate was selected with adequate | | | length to achieve good proximal and distal fracture fixation. | | | Reduction of the head and shaft fragments was completed and | | | provisionally held with K-wires. Sequential locking screws were | | | inserted into the head and shaft fragments with excellent stability | | | and fracture reduction achieved. The wound was thoroughly | | | irrigated with sterile saline. The deltopectoral interval was | | | closed with 0 Vicryl. The subcutaneous layer was closed with 2-0 | | | Vicryl followed by 3-0 V lock subcuticular stitch. The Steri-Strips | | | and sterile suction evacuation dressings were applied. | | | Post-operative radiographs were obtained. The patient was then | | | awoken and returned to his hospital bed. The patient was transferred | | | to PACU in stable condition. The patient tolerated the procedure | | | well with no complications and approximately 200 cc blood loss. | | | Postoperative Plan: The patient will pursue a standard protocol of | | | passive range of motion with zenaida, pendulum and stick exercise. | | | The patient will return for a wound check and suture removal at 2 | | | weeks' time and for further clinical followup and repeat radiographs | | | at 6 weeks. Glenn Siegel MD, [facility](C) Vice President Quality Improvement | | | Department of Orthopaedics and Rehabilitation [facility] | | | [facility] | | + + + CAPILLARY BLOOD GLUCOSE (NO CHG), POC (01/31/2019 6:25 AM PDT) + +---------+ + + + | Component | Value | Ref Range | Performed | Pathologist | | | | | At | Signature | + +---------+ + + + | BLOOD | 126 (H) | 60 - 99 mg/dL | [facility], | | | GLUCOSE, | | | POINT OF | | | POC | | | CARE TESTS | | + +---------+ + + + + + | Specimen | + + | | + + + + + + + | Performing | Address | City/State/Zipcode | Phone Number | | Organization | | | | + + + + + | [facility] | [address] | [place] [address] | | | OF CARE TESTS | | | | + + + + + CBC (HEMOGRAM) ONLY (01/31/2019 6:25 AM PDT) + + + + + + | Component | Value | Ref Range | Performed | Pathologist | | | | | At | Signature | + + + + + + | WHITE CELL | 12.35 (H) | 3.50 - 10.80 | [facility] | | | COUNT | | K/cu mm | LABORATORY | | | | | | SERVICES, | | | | | | [facility] + | | | | | | [facility] | | + + + + + + | RED CELL | 3.27 (L) | 4.50 - 6.00 | [facility] | | | COUNT | | M/cu mm | LABORATORY | | | | | | SERVICES, | | | | | | [facility] + | | | | | | [facility]AL[facility] | | + + + + + + | HEMOGLOBIN | 9.7 (L) | 13.5 - 17.5 | [facility] | | | | | g/dL | LABORATORY | | | | | | SERVICES, | | | | | | [facility] | | [facility] + | | | | | | [facility]ALING | | + + + + + + | HEMATOCRIT | 29.5 (L) | 41.0 - 53.0 % | [facility] | | | | | | LABORATORY | | | | | | SERVICES, | | | | | | [facility] + | | | | | | [facility]AL[facility] | | + + + + + + | MCV | 90.2 | 80.0 - 100.0 fL | [facility] | | | | | | LABORATORY | | | | | | SERVICES, | | | | | | [facility] | [facility] + | | | | | | [facility] | | + + + + + + | MCHC | 32.9 | 32.0 - 36.0 | [facility] | | | | | g/dL | LABORATORY | | | | | | SERVICES, | | | | | | [facility] | [facility] + | | | | | | [facility]ALING | | + + + + + + | RDW SD | 43.3 | 35.1 - 46.3 fL | [facility] | | | | | | LABORATORY | | | | | | SERVICES, | | | | | | [facility] | [facility] + | | | | | | [facility] | | + + + + + + | PLATELET | 341 | 150 - 400 K/cu | [facility] | | | COUNT | | mm | LABORATORY | | | | | | SERVICES, | | | | | | [facility] | [facility] + | | | | | | [facility] | | + + + + + + | MPV | 10.8 | 9.7 - 12.3 fL | [facility] | | | | | | LABORATORY | | | | | | SERVICES, | | | | | | [facility] | | | | [facility] + | | | | | | [facility] | | + + + + + + | NRBC% | 0.0 | 0.0 - 0.3 % | [facility] | | | | | | LABORATORY | | | | | | SERVICES, | | | | | | [facility] | [facility] + | | | | | | [facility]ALING | | + + + + + + | NRBC# | 0.00 | 0.00 - 0.02 | [facility] | | | | | K/cu mm | LABORATORY | | | | | | SERVICES, | | | | | | [facility] | [facility] + | | | | | | [facility]ALING | | + + + + + + + + | Specimen | + + | Blood - Blood | | (substance) | + + + + + + + | Performing | Address | City/State/Zipcode | Phone Number | | Organization | | | | + + + + + | [facility] | [address] | [place] [address] | | | SERVICES, [facility] | | | | | HEALTH + HEALING | | | | + + + + + BASIC METABOLIC SET (NA, K, CL, TCO2, BUN, CR, GLU, CA) (01/31/2019 6:25 AM PDT) + +---------+ + + + | Component | Value | Ref Range | Performed | Pathologist | | | | | At | Signature | + +---------+ + + + | GLUCOSE, | 109 (H) | 70 - 99 mg/dL | [facility] | | | PLASMA | | | LABORATORY | | | (LAB) | | | SERVICES, | | | | | | [facility] | | [facility] + | | | | | | [facility]ALING | | + +---------+ + + + | BUN, PLASMA | 15 | 6 - 20 mg/dL | [facility] | | | (LAB) | | | LABORATORY | | | | | | SERVICES, | | | | | | [facility] | | [facility] + | | | | | | HEALING | | + +---------+ + + + | CREATININE | 0.90 | 0.70 - 1.30 | [facility] | | | PLASMA | | mg/dL | LABORATORY | | | (LAB) | | | SERVICES, | | | | | | [facility] | | | | [facility] + | | | | | | HEALING | | + +---------+ + + + | SODIUM, | 135 | 134 - 143 | [facility] | | | PLASMA | | mmol/L | LABORATORY | | | (LAB) | | | SERVICES, | | | | | | [facility] | [facility] | | | [facility] + | | | | | | HEALING | | + +---------+ + + + | POTASSIUM, | 4.4 | 3.4 - 5.0 | [facility] | | | PLASMA | | mmol/L | LABORATORY | | | (LAB) | | | SERVICES, | | | | | | [facility] | | | | | | [facility] + | | | | | | HEALING | | + +---------+ + + + | CHLORIDE, | 101 | 97 - 108 mmol/L | [facility] | | | PLASMA | | | LABORATORY | | | (LAB) | | | SERVICES, | | | | | | [facility] | | | | | | [facility] | | + +---------+ + + + | TOTAL CO2, | 29 | 22 - 29 mmol/L | [facility] | | | PLASMA | | | LABORATORY | | | (LAB) | | | SERVICES, | | | | | | [facility] + | | | | | | [facility] | | + +---------+ + + + | CALCIUM, | 9.4 | 8.6 - 10.2 | [facility] | | | PLASMA | | mg/dL | LABORATORY | | | (LAB) | | | SERVICES, | | | | | | [facility] | | [facility] + | | | | | | [facility] | | + +---------+ + + + | ANION GAP | | 4 - 11 mmol/L | [facility] | | | | | | LABORATORY | | | | | | SERVICES, | | | | | | [facility] | | [facility] + | | | | | | [facility]AL[facility] | | + +---------+ + + + + + | Specimen | + + | Blood - Blood | | (substance) | + + + + + + + | Performing | Address | City/State/Zipcode | Phone Number | | Organization | | | | + + + + + | [facility] | [address] | [place] [address] | | | [facility] | | | | | HEALTH + HEALING | | | | + + + + + X-RAY HUMERUS 2 VIEWS RIGHT (2019 3:15 PM PDT) + + | Specimen | + + | | + + + + + | Narrative | Performed At | + + + | - At the time of the study, no professional interpretation was | [facility] | | requested. - | RADIOLOGY | + + + + +---------+ + + | Performing | Address | City/State/Zipcode | Phone Number | | Organization | | | | + +---------+ + + | [facility] | | | | + +---------+ + + X-RAY FLUOROSCOPY > 1 HOUR (2019 3:14 PM PDT) + + | Specimen | + + | | + + + + + | Narrative | Performed At | + + + | - At the time of the study, no professional interpretation was | [facility] | | requested. - | RADIOLOGY | + + + + +---------+ + + | Performing | Address | City/State/Zipcode | Phone Number | | Organization | | | | + +---------+ + + | [facility] | | | | + +---------+ + + INTRAPROCEDURE IMAGING (2019 9:06 AM PDT) + + | Specimen | + + | | + + + + + | Narrative | Performed At | + + + | See admission or procedure notes for details of any intraprocedure | [facility] | | images obtained. | RADIOLOGY | + + + + +---------+ + + | Performing | Address | City/State/Zipcode | Phone Number | | Organization | | | | + +---------+ + + | [facility] | | | | + +---------+ + + CARDIOLOGY (2019 12:00 AM PDT) + + + | Narrative | Performed At | + + + | | | + + + documented in this encounter Visit Diagnoses Not on filedocumented in this encounter Administered Medications + +--------+ + +------+------+ | Medication Order | MAR | Action | Dose | Rate | Site | | | Action | Date | | | | + +--------+ + +------+------+ | acetaminophen (TYLENOL) tablet | Given | 01/31/20 | 1,000 mg | | | | 1,000 mg 1,000 mg, oral, | | 19 9:12 | | | | | PREPROCEDURE ONCE, 1 dose, | | AM PDT | | | | | Starting Tu01/30/19 at 0905, | | | | | | | Until Tue01/30/19 at 09 | | | | | | + +--------+ + +------+------+ + +---+ | | | + +---+ | acetaminophen (TYLENOL) tablet | | | 1 dose, Starting Tue01/30/19 at | | | 0909, Until Tue01/30/19 at 0912 | | + +---+ | | | + +---+ + +-------+ +-------+---+---+ | aspirin chewable tablet 81 mg | Given | 02/01/20 | 81 mg | | | | 81 mg, oral, DAILY, First dose on | | 19 7:54 | | | | | 01/31/19 at 0900, Until | | AM PDT | | | | | Discontinued | | | | | | + +-------+ +-------+---+---+ +---+---+ | | | +---+---+ + +-------+ +-------+---+---+ | atorvastatin (LIPITOR) tablet | Given | 02/01/20 | 80 mg | | | | 80 mg 80 mg, oral, DAILY, First | | 19 7:53 | | | | | dose on Tue01/31/19 at 0900, | | AM PDT | | | | | Until Discontinued | | | | | | + +-------+ +-------+---+---+ +---+---+ | | | +---+---+ + +-------+ +--------+---+---+ | ibuprofen (MOTRIN) tablet 600 | Given | 02/01/20 | 600 mg | | | | mg 600 mg, oral, EVERY 6 HOURS | | 19 7:54 | | | | | NEEDED, Starting Tue01/30/19 | | AM PDT | | | | | at 1816, Until Tue01/31/19 at | | | | | | | 1509, mild pain, first line, | | | | | | | multimodal pain control | | | | | | + +-------+ +--------+---+---+ +---+---+ | | | +---+---+ + +---------+ +--------+-------+---+ | lactated ringers IV 500 mL, | New Bag | 02/01/20 | 500 mL | 250 | | | intravenous, ONCE, 1 dose, Wed | | 19 1:16 | | mL/hr | | | 01/31/19 at 0145 | | AM PDT | | | | + +---------+ +--------+-------+---+ +---+---+ | | | +---+---+ + +---------+ +--------+-------+---+ | lactated ringers IV 500 mL, | New Bag | 02/01/20 | 500 mL | 250 | | | intravenous, ONCE, 1 dose, Wed | | 19 6:20 | | mL/hr | | | 01/31/19 at 0645 | | AM PDT | | | | + +---------+ +--------+-------+---+ +---+---+ | | | +---+---+ + +-------+ +------+---+---+ | oxyCODONE (immediate release) | Given | 02/01/20 | 5 mg | | | | (ROXICODONE) tablet 5-10 mg 5-10 | | 19 8:48 | | | | | mg, oral, EVERY 4 HOURS | | AM PDT | | | | | NEEDED, Starting Tue01/30/19 at | | | | | | | 1218, Until Tue01/31/19 at 1509, | | | | | | | severe pain | | | | | | + +-------+ +------+---+---+ +-------+ +------+---+---+ | Given | 02/01/20 | 5 mg | | | | | 19 4:29 | | | | | | AM PDT | | | | +-------+ +------+---+---+ +---+---+ | | | +---+---+ + +-------+ +------+---+---+ | polyethylene glycol (MIRALAX) | Given | 01/31/20 | 17 g | | | | packet 17 g 17 g, oral, DAILY, | | 19 8:36 | | | | | First dose on Tue /14/19 at | | PM PDT | | | | | 1830, Until Discontinued | | | | | | + +-------+ +------+---+---+ +---+---+ | | | +---+---+ + +---------+ +---------+---------+---+ | ropivacaine 0.2% peripheral | New Bag | 01/31/20 | 6 mL/hr | 6 mL/hr | | | nerve block ([facility], Single, I-Flow | | 19 4:02 | | | | | pump) injection, CONTINUOUS, | | PM PDT | | | | | Starting Tue01/30/19 at 0945, | | | | | | | Until Tue01/31/19 at 1509 | | | | | | + +---------+ +---------+---------+---+ +---+---+ | | | +---+---+ + +-------+ +---------+---+---+ | senna-docusate (SENOKOT S) | Given | 02/01/20 | 2 | | | | 8.6-50 mg 2 tablet 2 tablet, | | 19 7:53 | tablets | | | | oral, TWICE DAILY, First dose on | | AM PDT | | | | | 01/30/19 at 2100, Until | | | | | | | Discontinued | | | | | | + +-------+ +---------+---+---+ +-------+ +---------+---+---+ | Given | 01/31/20 | 2 | | | | | 19 8:35 | tablets | | | | | PM PDT | | | | +-------+ +---------+---+---+ +---+---+ | | | +---+---+ documented in this encounter
--- OUTSIDE RECORDS SUMMARY | ~2020-01-10 | XMS | Encounter Summary ---
Demographics + + + | Address | [address] | | | [place] [address] | + + + | Home Phone | | + + + | Preferred Language | Unknown | + + + | Marital Status | | + + + | Temple Affiliation | NON | + + + | Race | White | + + + | Ethnic Group | Not or | + + + Author + + + | Author | [facility] | + + + | Organization | [facility] | + + + | Address | Unknown | + + + | Phone | Unavailable | + + + Support + + + + + | Name | Relationship | Address | Phone | + + + + + | Selena Jimenez | ECON | [address] | | | | | [place] | | | | | [address] | | + + + + + | Ronny Rene | ECON | Unknown | | + + + + + | Char Woodard | ECON | Unknown | | + + + + + Care Team Providers + +------+ + | Care Electrical Systems Designer Name | Role | Phone | + +------+ + | Deondre Landis MD | PCP | | + +------+ + Reason for Referral Consultation (Routine) +--------+--------+ + + + + | Status | Reason | Specialty | Diagnoses / | Referred By | Referred To | | | | | Procedures | Contact | Contact | +--------+--------+ + + + + | Closed | | | Diagnoses | Raffy, | | | | | | Dysphagia, | MD Vijay | | | | | | unspecified | [address] | | | | | | type H/O | [address] | | | | | | esophagectom | Rd | | | | | | y | [place], [place] | | | | | | Procedures | [address] | | | | | | CONSULT TO | Phone: | | | | | | GI PROCEDURE | [phone] | | | | | | UNIT: EGD | Fax: | | | | | | | [phone] | | +--------+--------+ + + + + Reason for Visit +---------+ + | Reason | Comments | +---------+ + | Choking | | +---------+ + Encounter Details +--------+ + + + + | Date | Type | Department | Care Team | Description | +--------+ + + + + | 09/21/ | Telephone | Dig[facility]ive [facility] | Vijay Akbar MD | Deana | | 2017 | | Center at [facility] [address] | [address] | | | | | [facility] | [facility], | | | | | [facility] and | [place] [address] | | | | | [facility] [address] | [phone] | | | | | [place], [place] | | | | | | [address] | | | | | | [phone] | | | +--------+ + + + [...] filedocumented as of this encounter Visit Diagnoses + + | Diagnosis | + + | Dysphagia, unspecified type - Primary | + + | H/O esophagectomy Personal history of surgery to other organs | + + documented in this encounter"
--- OUTSIDE RECORDS SUMMARY | ~2020-01-10 | XMS | Encounter Summary ---
Demographics + + + | Address | [address] | | | [place] [address] | + + + | Home Phone | | + + + | Preferred Language | Unknown | + + + | Marital Status | | + + + | Hindu Affiliation | NON | + + + | Race | White | + + + | Ethnic Group | Not or | + + + Author + + + | Author | [facility] | + + + | Organization | [facility] | + + + | Address | Unknown | + + + | Phone | Unavailable | + + + Support + + + + + | Name | Relationship | Address | Phone | + + + + + | Selena Jimenez | ECON | [address] | | | | | [place] | | | | | [address] | | + + + + + | Ronny Rene | ECON | Unknown | | + + + + + | Char Woodard | ECON | Unknown | | + + + + + Care Team Providers + +------+ + | Care Agronomy Supervisor Name | Role | Phone | + +------+ + | Deondre Landis MD | PCP | | + +------+ + Reason for Visit + + + | Reason | Comments | + + + | Medical Records | [facility] 04/28/15 FYI (missed visit | | Review | notification) | + + + Encounter Details +--------+ + + + + | Date | Type | Department | Care Team | Description | +--------+ + + + + | 04/29/ | Abstract | Digestive Health | Vijay Akbar MD | Medical Records | | 2015 | | Center at [facility] [address] | [address] | Review ([facility] - | | | | [address] | Latesha Soliz [place], | OUTSIDE | | | | for Health and | [place] [address] | COMMUNICATION | | | | Healing, [address] | [phone] | 04/28/15 FYI (missed | | | | [place], [place] | | visit notification)) | | | | [address] | | | | | | [phone] | | | +--------+ + + + [...]
--- OUTSIDE RECORDS SUMMARY | ~2020-01-10 | XMS | Encounter Summary ---
Demographics + + + | Address | [address] | | | [place] [address] | + + + | Home Phone | | + + + | Preferred Language | Unknown | + + + | Marital Status | | + + + | Roman Catholic Affiliation | Unknown | + + + | Race | Unknown | + + + | Ethnic Group | Unknown | + + + Author + + + | Author | [facility] | | | and [place] | + + + | Organization | [facility] | | | and [place] | + + + | Address | Unknown | + + + | Phone | Unavailable | + + + Support + + + + + | Name | Relationship | Address | Phone | + + + + + | Selena Jimenez | ECON | [id number] | | | | | [place] [address] | | + + + + + Care Team Providers + +------+ + | Care Maintenance Team Leader Name | Role | Phone | + +------+ + | Mingo Burgos DO | PCP | | + +------+ + Encounter Details +--------+ + + + + | Date | Type | Department | Care Team | Description | +--------+ + + + + | 09/10/ | Abstract | [facility] | Bernice Antonio, | | | 2013 | | CARDIOLOGY [address] | | | | | [place], | [place], | | | | | [place] [address] | [place] [address] | | | | | [phone] | | | | | | | | +--------+ + + + + Social History + +-------+ +--------+------+ | Tobacco Use | Types | Packs/Day | Years | Date | | | | | Used | | + +-------+ +--------+------+ | Former Smoker | | | 52 | | + +-------+ +--------+------+ + +-------+---+---+ | Smokeless Tobacco: | Snuff | | | | Current User | | | | + +-------+---+---+ + + | Comments: quit smoking in 2005/ is herbal, no nicotine | + + + + +---------+ + | Alcohol Use | Drinks/Week | oz/Week | Comments | + + +---------+ + | Yes | | | 2-3 drinks at night | + + +---------+ + + + [...] as of this encounter Plan of Treatment +--------+---------+ + + + | Date | Type | Specialty | Care Team | Description | +--------+---------+ + + + | 02/14/ | Office | Cardiology | Bernice Antonio, | | | 2019 | Visit | | MD [address] | | | | | | [place], | | | | | | [place] [address] | | | | | | [phone] | | | | | | | | +--------+---------+ + + + documented as of this encounter Procedures + +--------+ + + + | Procedure Name | Priori | Date/Time | Associated Diagnosis | Comments | | | ty | | | | + +--------+ + + + | EXTERNAL LAB: MOIRA | Routin | 07/01/2014 | | Results for this | | | e | | | procedure are in the | | | | | | results section. | + +--------+ + + + | EXTERNAL LAB: | Routin | 07/01/2014 | | Results for this | | GLUCOSE | e | | | procedure are in the | | | | | | results section. | + +--------+ + + + | EXTERNAL LAB: ALT | Routin | 07/01/2014 | | Results for this | | | e | | | procedure are in the | | | | | | results section. | + +--------+ + + + | EXTERNAL LAB: AST | Routin | 07/01/2014 | | Results for this | | | e | | | procedure are in the | | | | | | results section. | + +--------+ + + + | EXTERNAL LAB: | Routin | 07/01/2014 | | Results for this | | ALKALINE PHOSPHATASE | e | | | procedure are in the | | | | | | results section. | + +--------+ + + + | EXTERNAL LAB: | Routin | 07/01/2014 | | Results for this | | BILIRUBIN, TOTAL | e | | | procedure are in the | | | | | | results section. | + +--------+ + + + | EXTERNAL LAB: | Routin | 07/01/2014 | | Results for this | | ALBUMIN | e | | | procedure are in the | | | | | | results section. | + +--------+ + + + | EXTERNAL LAB: | Routin | 07/01/2014 | | Results for this | | PROTEIN, TOTAL | e | | | procedure are in the | | | | | | results section. | + +--------+ + + + | EXTERNAL LAB: | Routin | 07/01/2014 | | Results for this | | CALCIUM | e | | | procedure are in the | | | | | | results section. | + +--------+ + + + | EXTERNAL LAB: CARBON | Routin | 07/01/2014 | | Results for this | | DIOXIDE | e | | | procedure are in the | | | | | | results section. | + +--------+ + + + | EXTERNAL LAB: | Routin | 07/01/2014 | | Results for this | | CHLORIDE | e | | | procedure are in the | | | | | | results section. | + +--------+ + + + | EXTERNAL LAB: | Routin | 07/01/2014 | | Results for this | | POTASSIUM | e | | | procedure are in the | | | | | | results section. | + +--------+ + + + | EXTERNAL LAB: SODIUM | Routin | 07/01/2014 | | Results for this | | | e | | | procedure are in the | | | | | | results section. | + +--------+ + + + | EXTERNAL LAB: CBC | Routin | 07/01/2014 | | Results for this | | | e | | | procedure are in the | | | | | | results section. | + +--------+ + + + | EXTERNAL LAB: TSH | Routin | 07/01/2014 | | Results for this | | | e | | | procedure are in the | | | | | | results section. | + +--------+ + + + | EXTERNAL LAB: | Routin | 07/01/2014 | | Results for this | | TRIGLYCERIDES | e | | | procedure are in the | | | | | | results section. | + +--------+ + + + | EXTERNAL LAB: | Routin | 07/01/2014 | | Results for this | | CHOLESTEROL, HDL | e | | | procedure are in the | | | | | | results section. | + +--------+ + + + | EXTERNAL LAB: | Routin | 07/01/2014 | | Results for this | | CHOLESTEROL, TOTAL | e | | | procedure are in the | | | | | | results section. | + +--------+ + + + | EXTERNAL LAB: | Routin | 07/01/2014 | | Results for this | | CHOLESTEROL, LDL | e | | | procedure are in the | | | | | | results section. | + +--------+ + + + | EXTERNAL LAB: EGFR | Routin | 07/01/2014 | | Results for this | | | e | | | procedure are in the | | | | | | results section. | + +--------+ + + + | EXTERNAL LAB: | Routin | 07/01/2014 | | Results for this | | CREATININE | e | | | procedure are in the | | | | | | results section. | + +--------+ + + + | LIPID PANEL | Routin | 07/01/2014 | | Results for this | | | e | | | procedure are in the | | | | | | results section. | + +--------+ + + + | CBC WITH | Routin | 07/01/2014 | | Results for this | | DIFFERENTIAL | e | | | procedure are in the | | | | | | results section. | + +--------+ + + + | COMPREHENSIVE | Routin | 07/01/2014 | | Results for this | | METABOLIC PANEL | e | | | procedure are in the | | | | | | results section. | + +--------+ + + + | EXTERNAL JOVON: MOIRA | Routin | 12/24/2013 | | Results for this | | | e | | | procedure are in the | | | | | | results section. | + +--------+ + + + | EXTERNAL LAB: | Routin | 12/24/2013 | | Results for this | | GLUCOSE | e | | | procedure are in the | | | | | | results section. | + +--------+ + + + | EXTERNAL LAB: | Routin | 12/24/2013 | | Results for this | | CALCIUM | e | | | procedure are in the | | | | | | results section. | + +--------+ + + + | EXTERNAL LAB: CARBON | Routin | 12/24/2013 | | Results for this | | DIOXIDE | e | | | procedure are in the | | | | | | results section. | + +--------+ + + + | EXTERNAL LAB: | Routin | 12/24/2013 | | Results for this | | CHLORIDE | e | | | procedure are in the | | | | | | results section. | + +--------+ + + + | EXTERNAL LAB: | Routin | 12/24/2013 | | Results for this | | POTASSIUM | e | | | procedure are in the | | | | | | results section. | + +--------+ + + + | EXTERNAL LAB: SODIUM | Routin | 12/24/2013 | | Results for this | | | e | | | procedure are in the | | | | | | results section. | + +--------+ + + + | EXTERNAL LAB: EGFR | Routin | 12/24/2013 | | Results for this | | | e | | | procedure are in the | | | | | | results section. | + +--------+ + + + | EXTERNAL LAB: | Routin | 12/24/2013 | | Results for this | | CREATININE | e | | | procedure are in the | | | | | | results section. | + +--------+ + + + | BASIC METABOLIC | Routin | 12/24/2013 | | Results for this | | PANEL | e | | | procedure are in the | | | | | | results section. | + +--------+ + + + | EXTERNAL LAB: BUN | Routin | 12/10/2013 | | Results for this | | | e | | | procedure are in the | | | | | | results section. | + +--------+ + + + | EXTERNAL LAB: | Routin | 12/10/2013 | | Results for this | | GLUCOSE | e | | | procedure are in the | | | | | | results section. | + +--------+ + + + | EXTERNAL LAB: ALT | Routin | 12/10/2013 | | Results for this | | | e | | | procedure are in the | | | | | | results section. | + +--------+ + + + | EXTERNAL LAB: AST | Routin | 12/10/2013 | | Results for this | | | e | | | procedure are in the | | | | | | results section. | + +--------+ + + + | EXTERNAL LAB: | Routin | 12/10/2013 | | Results for this | | ALKALINE PHOSPHATASE | e | | | procedure are in the | | | | | | results section. | + +--------+ + + + | EXTERNAL LAB: | Routin | 12/10/2013 | | Results for this | | BILIRUBIN, TOTAL | e | | | procedure are in the | | | | | | results section. | + +--------+ + + + | EXTERNAL LAB: | Routin | 12/10/2013 | | Results for this | | ALBUMIN | e | | | procedure are in the | | | | | | results section. | + +--------+ + + + | EXTERNAL LAB: | Routin | 12/10/2013 | | Results for this | | PROTEIN, TOTAL | e | | | procedure are in the | | | | | | results section. | + +--------+ + + + | EXTERNAL LAB: | Routin | 12/10/2013 | | Results for this | | CALCIUM | e | | | procedure are in the | | | | | | results section. | + +--------+ + + + | EXTERNAL LAB: CARBON | Routin | 12/10/2013 | | Results for this | | DIOXIDE | e | | | procedure are in the | | | | | | results section. | + +--------+ + + + | EXTERNAL LAB: | Routin | 12/10/2013 | | Results for this | | CHLORIDE | e | | | procedure are in the | | | | | | results section. | + +--------+ + + + | EXTERNAL LAB: | Routin | 12/10/2013 | | Results for this | | POTASSIUM | e | | | procedure are in the | | | | | | results section. | + +--------+ + + + | EXTERNAL LAB: SODIUM | Routin | 12/10/2013 | | Results for this | | | e | | | procedure are in the | | | | | | results section. | + +--------+ + + + | EXTERNAL LAB: | Routin | 12/10/2013 | | Results for this | | VITAMIN D, | e | | | procedure are in the | | 25-HYDROXY | | | | results section. | + +--------+ + + + | EXTERNAL LAB: CBC | Routin | 12/10/2013 | | Results for this | | | e | | | procedure are in the | | | | | | results section. | + +--------+ + + + | EXTERNAL LAB: TSH | Routin | 12/10/2013 | | Results for this | | | e | | | procedure are in the | | | | | | results section. | + +--------+ + + + | EXTERNAL LAB: | Routin | 12/10/2013 | | Results for this | | TRIGLYCERIDES | e | | | procedure are in the | | | | | | results section. | + +--------+ + + + | EXTERNAL LAB: | Routin | 12/10/2013 | | Results for this | | CHOLESTEROL, HDL | e | | | procedure are in the | | | | | | results section. | + +--------+ + + + | EXTERNAL LAB: | Routin | 12/10/2013 | | Results for this | | CHOLESTEROL, TOTAL | e | | | procedure are in the | | | | | | results section. | + +--------+ + + + | EXTERNAL LAB: | Routin | 12/10/2013 | | Results for this | | CHOLESTEROL, LDL | e | | | procedure are in the | | | | | | results section. | + +--------+ + + + | EXTERNAL LAB: EGFR | Routin | 12/10/2013 | | Results for this | | | e | | | procedure are in the | | | | | | results section. | + +--------+ + + + | EXTERNAL LAB: | Routin | 12/10/2013 | | Results for this | | CREATININE | e | | | procedure are in the | | | | | | results section. | + +--------+ + + + | LIPID PANEL | Routin | 12/10/2013 | | Results for this | | | e | | | procedure are in the | | | | | | results section. | + +--------+ + + + | CBC WITH | Routin | 12/10/2013 | | Results for this | | DIFFERENTIAL | e | | | procedure are in the | | | | | | results section. | + +--------+ + + + | COMPREHENSIVE | Routin | 12/10/2013 | | Results for this | | METABOLIC PANEL | e | | | procedure are in the | | | | | | results section. | + +--------+ + + + documented in this encounter Results Lipid Panel (07/01/2014) + +-------+ + + + | Component | Value | Ref Range | Performed | Pathologist | | | | | At | Signature | + +-------+ + + + | VLDL | 11 | 4 - 40 | | | | Cholesterol | | | | | | [place] | | | | | + +-------+ + + + | Chol/HDL | 1.9 | 5.0 | | | | Ratio | | | | | + +-------+ + + + | Non-HDL | 78 | 130 | | | | Cholesterol | | | | | + +-------+ + + + + + | Specimen | + + | Blood specimen | | (specimen) | + + Comprehensive Metabolic Panel (07/01/2014) + +-------+ + + + | Component | Value | Ref Range | Performed | Pathologist | | | | | At | Signature | + +-------+ + + + | Anion Gap | 15 | 7 - 21 mmol/L | [facility] | | | | | [facility] | | | | | | [facility] | | + +-------+ + + + | Bun/Creatin | 12.3 | 6 - 28.6 | [facility] | | | ine | | | [facility] | | | | | | [facility] | | [facility] - | | | | | | [facility]ATORY | | + +-------+ + + + | Globulin | 2.9 | 1.8 - 3.5 | [facility] | | | | | | [facility] | | | | | | [facility] | | | | [facility] - | | | | | | LAB[facility]ATORY | | + +-------+ + + + | Albumin/Ashley | 1.5 | 1.1 - 2.4 | [facility] | | | bulin Ratio | | | [facility] | | | | | | [facility] | | | | | | [facility] - | | | | | | LABORATORY | | + +-------+ + + + + + | Specimen | + + | Blood specimen | | (specimen) | + + + + + + + | Performing | Address | City/State/Zipcode | Phone Number | | Organization | | | | + + + + + | [facility] | [address] | [place] | | | [facility] | | [address], [facility] | | | - LABORATORY | | | | + + + + + CBC with Differential (07/01/2014) + +-------+ + + + | Component | Value | Ref Range | Performed | Pathologist | | | | | At | Signature | + +-------+ + + + | MCH | 32.0 | 27.0 - 33.0 pg | | | + +-------+ + + + | MCHC | 35.0 | 30.0 - 36.0 % | | | + +-------+ + + + | % Basophils | 1.2 | 0.0 - 2.0 % | | | + +-------+ + + + + + | Specimen | + + | Blood specimen | | (specimen) | + + External Lab: [facility] (07/01/2014) + +-------+ + + + | Component | Value | Ref Range | Performed | Pathologist | | | | | At | Signature | + +-------+ + + + | BUN, | 14 | 6 - 23 | EXTERNAL | | | External | | | LAB | | + +-------+ + + + + + | Resulting Agency Comment | + + | [facility] | + + + +---------+ + + | Performing | Address | City/State/Zipcode | Phone Number | | Organization | | | | + +---------+ + + | EXTERNAL LAB | | | | + +---------+ + + External Lab: Glucose (07/01/2014) + +-------+ + + + | Component | Value | Ref Range | Performed | Pathologist | | | | | At | Signature | + +-------+ + + + | Glucose, | 88 | 70 - 100 | EXTERNAL | | | External | | | LAB | | + +-------+ + + + + + | Resulting Agency Comment | + + | [facility] | + + + +---------+ + + | Performing | Address | City/State/Zipcode | Phone Number | | Organization | | | | + +---------+ + + | EXTERNAL LAB | | | | + +---------+ + + External Lab: ALT (07/01/2014) + +-------+ + + + | Component | Value | Ref Range | Performed | Pathologist | | | | | At | Signature | + +-------+ + + + | ALT, | 13 | 7 - 52 | EXTERNAL | | | External | | | LAB | | + +-------+ + + + + + | Resulting Agency Comment | + + | [facility] | + + + +---------+ + + | Performing | Address | City/State/Zipcode | Phone Number | | Organization | | | | + +---------+ + + | EXTERNAL LAB | | | | + +---------+ + + External Lab: AST (07/01/2014) + +-------+ + + + | Component | Value | Ref Range | Performed | Pathologist | | | | | At | Signature | + +-------+ + + + | AST, | 20 | 13 - 39 | EXTERNAL | | | External | | | LAB | | + +-------+ + + + + + | Resulting Agency Comment | + + | [facility] | + + + +---------+ + + | Performing | Address | City/State/Zipcode | Phone Number | | Organization | | | | + +---------+ + + | EXTERNAL LAB | | | | + +---------+ + + External Lab: Alkaline Phosphatase (07/01/2014) + +-------+ + + + | Component | Value | Ref Range | Performed | Pathologist | | | | | At | Signature | + +-------+ + + + | ALP, | 79 | 30 - 128 | EXTERNAL | | | External | | | LAB | | + +-------+ + + + + + | Resulting Agency Comment | + + | [facility] | + + + +---------+ + + | Performing | Address | City/State/Zipcode | Phone Number | | Organization | | | | + +---------+ + + | EXTERNAL LAB | | | | + +---------+ + + External Lab: Bilirubin, Total (07/01/2014) + +-------+ + + + | Component | Value | Ref Range | Performed | Pathologist | | | | | At | Signature | + +-------+ + + + | Bilirubin, | 0.8 | 0 - 1.2 | EXTERNAL | | | Total, | | | LAB | | | External | | | | | + +-------+ + + + + + | Resulting Agency Comment | + + | [facility] | + + + +---------+ + + | Performing | Address | City/State/Zipcode | Phone Number | | Organization | | | | + +---------+ + + | EXTERNAL LAB | | | | + +---------+ + + External Lab: Albumin (07/01/2014) + +-------+ + + + | Component | Value | Ref Range | Performed | Pathologist | | | | | At | Signature | + +-------+ + + + | Albumin, | 4.3 | 3.5 - 5 | EXTERNAL | | | External | | | LAB | | + +-------+ + + + + + | Resulting Agency Comment | + + | [facility] | + + + +---------+ + + | Performing | Address | City/State/Zipcode | Phone Number | | Organization | | | | + +---------+ + + | EXTERNAL LAB | | | | + +---------+ + + External Lab: Protein, Total (07/01/2014) + +-------+ + + + | Component | Value | Ref Range | Performed | Pathologist | | | | | At | Signature | + +-------+ + + + | Protein, | 7.2 | 6 - 8 | EXTERNAL | | | Total, | | | LAB | | | External | | | | | + +-------+ + + + + + | Resulting Agency Comment | + + | [facility] | + + + +---------+ + + | Performing | Address | City/State/Zipcode | Phone Number | | Organization | | | | + +---------+ + + | EXTERNAL LAB | | | | + +---------+ + + External Lab: Calcium (07/01/2014) + + + + + + | Component | Value | Ref Range | Performed | Pathologist | | | | | At | Signature | + + + + + + | Calcium, | 10.4 (A) | 8.4 - 10.2 | EXTERNAL | | | External | | | LAB | | + + + + + + + + | Resulting Agency Comment | + + | [facility] | + + + +---------+ + + | Performing | Address | City/State/Zipcode | Phone Number | | Organization | | | | + +---------+ + + | EXTERNAL LAB | | | | + +---------+ + + External Lab: Carbon Dioxide (07/01/2014) + +-------+ + + + | Component | Value | Ref Range | Performed | Pathologist | | | | | At | Signature | + +-------+ + + + | Carbon | 26 | 19 - 31 | EXTERNAL | | | Dioxide, | | | LAB | | | External | | | | | + +-------+ + + + + + | Resulting Agency Comment | + + | [facility] | + + + +---------+ + + | Performing | Address | City/State/Zipcode | Phone Number | | Organization | | | | + +---------+ + + | EXTERNAL LAB | | | | + +---------+ + + External Lab: Chloride (07/01/2014) + +-------+ + + + | Component | Value | Ref Range | Performed | Pathologist | | | | | At | Signature | + +-------+ + + + | Chloride, | 98 | 95 - 112 | EXTERNAL | | | External | | | LAB | | + +-------+ + + + + + | Resulting Agency Comment | + + | [facility] | + + + +---------+ + + | Performing | Address | City/State/Zipcode | Phone Number | | Organization | | | | + +---------+ + + | EXTERNAL LAB | | | | + +---------+ + + External Lab: Potassium (07/01/2014) + +-------+ + + + | Component | Value | Ref Range | Performed | Pathologist | | | | | At | Signature | + +-------+ + + + | Potassium, | 4.5 | 3.6 - 5.1 | EXTERNAL | | | External | | | LAB | | + +-------+ + + + + + | Resulting Agency Comment | + + | [facility] | + + + +---------+ + + | Performing | Address | City/State/Zipcode | Phone Number | | Organization | | | | + +---------+ + + | EXTERNAL LAB | | | | + +---------+ + + External Lab: Sodium (07/01/2014) + +-------+ + + + | Component | Value | Ref Range | Performed | Pathologist | | | | | At | Signature | + +-------+ + + + | Sodium, | 134 | 132 - 143 | EXTERNAL | | | External | | | LAB | | + +-------+ + + + + + | Resulting Agency Comment | + + | [facility] | + + + +---------+ + + | Performing | Address | City/State/Zipcode | Phone Number | | Organization | | | | + +---------+ + + | EXTERNAL LAB | | | | + +---------+ + + External Lab: CBC (07/01/2014) + + + + + + | Component | Value | Ref Range | Performed | Pathologist | | | | | At | Signature | + + + + + + | WBC, | 8.3 | 4.5 - 11 | EXTERNAL | | | External | | | LAB | | + + + + + + | HGB, | 13.9 | 13.5 - 18 | EXTERNAL | | | External | | | LAB | | + + + + + + | HCT, | 39.9 (A) | 41 - 50 | EXTERNAL | | | External | | | LAB | | + + + + + + | PLT, | 264 | 140 - 440 | EXTERNAL | | | External | | | LAB | | + + + + + + | Neutrophils | 64.6 | 39 - 80 | EXTERNAL | | | %, | | | LAB | | | External | | | | | + + + + + + | Lymphocytes | 18 (A) | 24 - 44 | EXTERNAL | | | %, | | | LAB | | | External | | | | | + + + + + + | Monocytes | 11.8 | 0 - 12 | EXTERNAL | | | %, External | | | LAB | | + + + + + + | Eosinophils | 4.4 | 0 - 6 | EXTERNAL | | | %, | | | LAB | | | External | | | | | + + + + + + | RBC, | 4.29 (A) | 4.3 - 5.7 | EXTERNAL | | | External | | | LAB | | + + + + + + | MCV, | 93 | 81 - 99 | EXTERNAL | | | External | | | LAB | | + + + + + + | RDW, | 13.6 | 10.5 - 15 | EXTERNAL | | | External | | | LAB | | + + + + + + + + | Resulting Agency Comment | + + | [facility] | + + + +---------+ + + | Performing | Address | City/State/Zipcode | Phone Number | | Organization | | | | + +---------+ + + | EXTERNAL LAB | | | | + +---------+ + + External Lab: TSH (07/01/2014) + +-------+ + + + | Component | Value | Ref Range | Performed | Pathologist | | | | | At | Signature | + +-------+ + + + | TSH, | 1.34 | 0.27 - 4.2 | EXTERNAL | | | External | | | LAB | | + +-------+ + + + + + | Specimen | + + | Blood specimen | | (specimen) | + + + + | Resulting Agency Comment | + + | [facility] | + + + +---------+ + + | Performing | Address | City/State/Zipcode | Phone Number | | Organization | | | | + +---------+ + + | EXTERNAL LAB | | | | + +---------+ + + External Lab: Triglycerides (07/01/2014) + +-------+ + + + | Component | Value | Ref Range | Performed | Pathologist | | | | | At | Signature | + +-------+ + + + | Triglycerid | 54 | 30 - 150 | EXTERNAL | | | es, | | | LAB | | | External | | | | | + +-------+ + + + + + | Specimen | + + | Blood specimen | | (specimen) | + + + + | Resulting Agency Comment | + + | [facility] | + + + +---------+ + + | Performing | Address | City/State/Zipcode | Phone Number | | Organization | | | | + +---------+ + + | EXTERNAL LAB | | | | + +---------+ + + External Lab: Cholesterol, HDL (07/01/2014) + +-------+ + + + | Component | Value | Ref Range | Performed | Pathologist | | | | | At | Signature | + +-------+ + + + | HDL | 85.4 | 40 | EXTERNAL | | | Cholesterol | | | LAB | | | , External | | | | | + +-------+ + + + + + | Specimen | + + | Blood specimen | | (specimen) | + + + + | Resulting Agency Comment | + + | [facility] | + + + +---------+ + + | Performing | Address | City/State/Zipcode | Phone Number | | Organization | | | | + +---------+ + + | EXTERNAL LAB | | | | + +---------+ + + External Lab: Cholesterol, Total (07/01/2014) + +-------+ + + + | Component | Value | Ref Range | Performed | Pathologist | | | | | At | Signature | + +-------+ + + + | Cholesterol | 163 | 200 | EXTERNAL | | | , Total, | | | LAB | | | External | | | | | + +-------+ + + + + + | Specimen | + + | Blood specimen | | (specimen) | + + + + | Resulting Agency Comment | + + | [facility] | + + + +---------+ + + | Performing | Address | City/State/Zipcode | Phone Number | | Organization | | | | + +---------+ + + | EXTERNAL LAB | | | | + +---------+ + + External Lab: Cholesterol, LDL (07/01/2014) + +-------+ + + + | Component | Value | Ref Range | Performed | Pathologist | | | | | At | Signature | + +-------+ + + + | LDL | 67 | 100 | EXTERNAL | | | Cholesterol | | | LAB | | | , Direct, | | | | | | External | | | | | + +-------+ + + + + + | Specimen | + + | Blood specimen | | (specimen) | + + + + | Resulting Agency Comment | + + | [facility] | + + + +---------+ + + | Performing | Address | City/State/Zipcode | Phone Number | | Organization | | | | + +---------+ + + | EXTERNAL LAB | | | | + +---------+ + + External Lab: eGFR (07/01/2014) + +-------+ + + + | Component | Value | Ref Range | Performed | Pathologist | | | | | At | Signature | + +-------+ + + + | eGFR, | 63 | | EXTERNAL | | | External | | | LAB | | + +-------+ + + + | eGFR, | | | EXTERNAL | | | | | | LAB | | | [place]ian, | | | | | | External | | | | | + +-------+ + + + + + | Specimen | + + | Blood specimen | | (specimen) | + + + + | Resulting Agency Comment | + + | [facility] | + + + +---------+ + + | Performing | Address | City/State/Zipcode | Phone Number | | Organization | | | | + +---------+ + + | EXTERNAL LAB | | | | + +---------+ + + External Lab: Creatinine (07/01/2014) + +-------+ + + + | Component | Value | Ref Range | Performed | Pathologist | | | | | At | Signature | + +-------+ + + + | Creatinine, | 1.14 | 0.7 - 1.18 | EXTERNAL | | | External | | | LAB | | + +-------+ + + + + + | Specimen | + + | Blood specimen | | (specimen) | + + + + | Resulting Agency Comment | + + | [facility] | + + + +---------+ + + | Performing | Address | City/State/Zipcode | Phone Number | | Organization | | | | + +---------+ + + | EXTERNAL LAB | | | | + +---------+ + + Basic Metabolic Panel (12/24/2013) + +-------+ + + + | Component | Value | Ref Range | Performed | Pathologist | | | | | At | Signature | + +-------+ + + + | Anion Gap | 11 | 7 - 21 mmol/L | [facility] | | | | | | [facility] | | | | | | [facility] | | | | | [facility] - | | | | | | LABORATORY | | + +-------+ + + + | Bun/Creatin | 9.3 | 6 - 28.6 | [facility] | | | ine | | | [facility] | | | | | | [facility] | [facility] | | | | [facility] - | | | | | | LABORATORY | | + +-------+ + + + + + | Specimen | + + | Blood specimen | | (specimen) | + + + + + + + | Performing | Address | City/State/Zipcode | Phone Number | | Organization | | | | + + + + + | [facility] | [address] | [place] | | | [facility] | | [id number], [facility] | | | - LABORATORY | | | | + + + + + External Lab: MOIRA (12/24/2013) + +-------+ + + + | Component | Value | Ref Range | Performed | Pathologist | | | | | At | Signature | + +-------+ + + + | BUN, | 10 | 6 - 23 | EXTERNAL | | | External | | | LAB | | + +-------+ + + + + + | Resulting Agency Comment | + + | [facility] | + + + +---------+ + + | Performing | Address | City/State/Zipcode | Phone Number | | Organization | | | | + +---------+ + + | EXTERNAL LAB | | | | + +---------+ + + External Lab: Glucose (12/24/2013) + +-------+ + + + | Component | Value | Ref Range | Performed | Pathologist | | | | | At | Signature | + +-------+ + + + | Glucose, | 91 | 70 - 100 | EXTERNAL | | | External | | | LAB | | + +-------+ + + + + + | Resulting Agency Comment | + + | [facility] | + + + +---------+ + + | Performing | Address | City/State/Zipcode | Phone Number | | Organization | | | | + +---------+ + + | EXTERNAL LAB | | | | + +---------+ + + External Lab: Calcium (12/24/2013) + +-------+ + + + | Component | Value | Ref Range | Performed | Pathologist | | | | | At | Signature | + +-------+ + + + | Calcium, | 9.9 | 8.4 - 10.2 | EXTERNAL | | | External | | | LAB | | + +-------+ + + + + + | Resulting Agency Comment | + + | [facility] | + + + +---------+ + + | Performing | Address | City/State/Zipcode | Phone Number | | Organization | | | | + +---------+ + + | EXTERNAL LAB | | | | + +---------+ + + External Lab: Carbon Dioxide (12/24/2013) + +-------+ + + + | Component | Value | Ref Range | Performed | Pathologist | | | | | At | Signature | + +-------+ + + + | Carbon | 26 | 19 - 31 | EXTERNAL | | | Dioxide, | | | LAB | | | External | | | | | + +-------+ + + + + + | Resulting Agency Comment | + + | [facility] | + + + +---------+ + + | Performing | Address | City/State/Zipcode | Phone Number | | Organization | | | | + +---------+ + + | EXTERNAL LAB | | | | + +---------+ + + External Lab: Chloride (12/24/2013) + +-------+ + + + | Component | Value | Ref Range | Performed | Pathologist | | | | | At | Signature | + +-------+ + + + | Chloride, | 100 | 95 - 112 | EXTERNAL | | | External | | | LAB | | + +-------+ + + + + + | Resulting Agency Comment | + + | [facility] | + + + +---------+ + + | Performing | Address | City/State/Zipcode | Phone Number | | Organization | | | | + +---------+ + + | EXTERNAL LAB | | | | + +---------+ + + External Lab: Potassium (12/24/2013) + +-------+ + + + | Component | Value | Ref Range | Performed | Pathologist | | | | | At | Signature | + +-------+ + + + | Potassium, | 4.6 | 3.6 - 5.1 | EXTERNAL | | | External | | | LAB | | + +-------+ + + + + + | Resulting Agency Comment | + + | [facility] | + + + +---------+ + + | Performing | Address | City/State/Zipcode | Phone Number | | Organization | | | | + +---------+ + + | EXTERNAL LAB | | | | + +---------+ + + External Lab: Sodium (12/24/2013) + +---------+ + + + | Component | Value | Ref Range | Performed | Pathologist | | | | | At | Signature | + +---------+ + + + | Sodium, | 132 (A) | 135 - 143 | EXTERNAL | | | External | | | LAB | | + +---------+ + + + + + | Resulting Agency Comment | + + | [facility] | + + + +---------+ + + | Performing | Address | City/State/Zipcode | Phone Number | | Organization | | | | + +---------+ + + | EXTERNAL LAB | | | | + +---------+ + + External Lab: eGFR (12/24/2013) + +-------+ + + + | Component | Value | Ref Range | Performed | Pathologist | | | | | At | Signature | + +-------+ + + + | eGFR, | 67 | 60 | EXTERNAL | | | External | | | LAB | | + +-------+ + + + | eGFR, | | | EXTERNAL | | | | | | LAB | | | Ghanaian, | | | | | | External | | | | | + +-------+ + + + + + | Specimen | + + | Blood specimen | | (specimen) | + + + + | Resulting Agency Comment | + + | [facility] | + + + +---------+ + + | Performing | Address | City/State/Zipcode | Phone Number | | Organization | | | | + +---------+ + + | EXTERNAL LAB | | | | + +---------+ + + External Lab: Creatinine (12/24/2013) + +-------+ + + + | Component | Value | Ref Range | Performed | Pathologist | | | | | At | Signature | + +-------+ + + + | Creatinine, | 1.08 | 0.7 - 1.18 | EXTERNAL | | | External | | | LAB | | + +-------+ + + + + + | Specimen | + + | Blood specimen | | (specimen) | + + + + | Resulting Agency Comment | + + | [facility] | + + + +---------+ + + | Performing | Address | City/State/Zipcode | Phone Number | | Organization | | | | + +---------+ + + | EXTERNAL LAB | | | | + +---------+ + + CBC with Differential (12/10/2013) + +-------+ + + + | Component | Value | Ref Range | Performed | Pathologist | | | | | At | Signature | + +-------+ + + + | MCH | 33.0 | 27.0 - 33.0 pg | | | + +-------+ + + + | MCHC | 35.0 | 30.0 - 36.0 % | | | + +-------+ + + + | % Basophils | 0.7 | 0.0 - 2.0 % | | | + +-------+ + + + + + | Specimen | + + | Blood specimen | | (specimen) | + + Lipid Panel (12/10/2013) + +-------+ + + + | Component | Value | Ref Range | Performed | Pathologist | | | | | At | Signature | + +-------+ + + + | VLDL | 11 | 4 - 40 | | | | Cholesterol | | | | | | Wilner | | | | | + +-------+ + + + | Chol/HDL | 1.9 | 5.0 | | | | Ratio | | | | | + +-------+ + + + | Non-HDL | 51 | 130 | | | | Cholesterol | | | | | + +-------+ + + + + + | Specimen | + + | Blood specimen | | (specimen) | + + Comprehensive Metabolic Panel (12/10/2013) + +-------+ + + + | Component | Value | Ref Range | Performed | Pathologist | | | | | At | Signature | + +-------+ + + + | Anion Gap | 12 | 7 - 12 mmol/L | [facility] | | | | | | [facility] | | | | | | [facility] | | | | | | [facility] - | | | | | | LABORATORY | | + +-------+ + + + | Bun/Creatin | 12.1 | 6 - 28.6 | [facility] | | | ine | | | [facility] | | | | | | [facility] | | | | | | CENTER - | | | | | | LABORATORY | | + +-------+ + + + | Globulin | 2.5 | 1.8 - 3.5 | [facility] | | | | | | [facility] | | | | | | [facility] | | | | | | [facility] - | | | | | | LABORATORY | | + +-------+ + + + | Albumin/Ashley | 1.6 | 1.1 - 2.4 | [facility] | | | bulin Ratio | | | [facility] | | | | | | MEDICAL | | | | | | CENTER - | | | | | | LABORATORY | | + +-------+ + + + + + | Specimen | + + | Blood specimen | | (specimen) | + + + + + + + | Performing | Address | City/State/Zipcode | Phone Number | | Organization | | | | + + + + + | [facility] | [address] | [place] | | | [facility] | | [id number] | | | - LABORATORY | | | | + + + + + External Lab: MOIRA (12/10/2013) + +-------+ + + + | Component | Value | Ref Range | Performed | Pathologist | | | | | At | Signature | + +-------+ + + + | MOIRA, | 13 | 6 - 23 | EXTERNAL | | | External | | | LAB | | + +-------+ + + + + + | Resulting Agency Comment | + + | [facility] | + + + +---------+ + + | Performing | Address | City/State/Zipcode | Phone Number | | Organization | | | | + +---------+ + + | EXTERNAL LAB | | | | + +---------+ + + External Lab: Glucose (12/10/2013) + +-------+ + + + | Component | Value | Ref Range | Performed | Pathologist | | | | | At | Signature | + +-------+ + + + | Glucose, | 90 | 70 - 100 | EXTERNAL | | | External | | | LAB | | + +-------+ + + + + + | Resulting Agency Comment | + + | [facility] | + + + +---------+ + + | Performing | Address | City/State/Zipcode | Phone Number | | Organization | | | | + +---------+ + + | EXTERNAL LAB | | | | + +---------+ + + External Lab: ALT (12/10/2013) + +-------+ + + + | Component | Value | Ref Range | Performed | Pathologist | | | | | At | Signature | + +-------+ + + + | ALT, | 14 | 7 - 52 | EXTERNAL | | | External | | | LAB | | + +-------+ + + + + + | Resulting Agency Comment | + + | [facility] | + + + +---------+ + + | Performing | Address | City/State/Zipcode | Phone Number | | Organization | | | | + +---------+ + + | EXTERNAL LAB | | | | + +---------+ + + External Lab: AST (12/10/2013) + +-------+ + + + | Component | Value | Ref Range | Performed | Pathologist | | | | | At | Signature | + +-------+ + + + | AST, | 21 | 13 - 39 | EXTERNAL | | | External | | | LAB | | + +-------+ + + + + + | Resulting Agency Comment | + + | [facility] | + + + +---------+ + + | Performing | Address | City/State/Zipcode | Phone Number | | Organization | | | | + +---------+ + + | EXTERNAL LAB | | | | + +---------+ + + External Lab: Alkaline Phosphatase (12/10/2013) + +-------+ + + + | Component | Value | Ref Range | Performed | Pathologist | | | | | At | Signature | + +-------+ + + + | ALP, | 68 | 30 - 128 | EXTERNAL | | | External | | | LAB | | + +-------+ + + + + + | Resulting Agency Comment | + + | [facility] | + + + +---------+ + + | Performing | Address | City/State/Zipcode | Phone Number | | Organization | | | | + +---------+ + + | EXTERNAL LAB | | | | + +---------+ + + External Lab: Bilirubin, Total (12/10/2013) + +-------+ + + + | Component | Value | Ref Range | Performed | Pathologist | | | | | At | Signature | + +-------+ + + + | Bilirubin, | 0.6 | 0 - 1.2 | EXTERNAL | | | Total, | | | LAB | | | External | | | | | + +-------+ + + + + + | Resulting Agency Comment | + + | [facility] | + + + +---------+ + + | Performing | Address | City/State/Zipcode | Phone Number | | Organization | | | | + +---------+ + + | EXTERNAL LAB | | | | + +---------+ + + External Lab: Albumin (12/10/2013) + +-------+ + + + | Component | Value | Ref Range | Performed | Pathologist | | | | | At | Signature | + +-------+ + + + | Albumin, | 4.0 | 3.5 - 5 | EXTERNAL | | | External | | | LAB | | + +-------+ + + + + + | Resulting Agency Comment | + + | [facility] | + + + +---------+ + + | Performing | Address | City/State/Zipcode | Phone Number | | Organization | | | | + +---------+ + + | EXTERNAL LAB | | | | + +---------+ + + External Lab: Protein, Total (12/10/2013) + +-------+ + + + | Component | Value | Ref Range | Performed | Pathologist | | | | | At | Signature | + +-------+ + + + | Protein, | 6.5 | 6 - 8 | EXTERNAL | | | Total, | | | LAB | | | External | | | | | + +-------+ + + + + + | Resulting Agency Comment | + + | [facility] | + + + +---------+ + + | Performing | Address | City/State/Zipcode | Phone Number | | Organization | | | | + +---------+ + + | EXTERNAL LAB | | | | + +---------+ + + External Lab: Calcium (12/10/2013) + +-------+ + + + | Component | Value | Ref Range | Performed | Pathologist | | | | | At | Signature | + +-------+ + + + | Calcium, | 9.8 | 8.4 - 10.2 | EXTERNAL | | | External | | | LAB | | + +-------+ + + + + + | Resulting Agency Comment | + + | [facility] | + + + +---------+ + + | Performing | Address | City/State/Zipcode | Phone Number | | Organization | | | | + +---------+ + + | EXTERNAL LAB | | | | + +---------+ + + External Lab: Carbon Dioxide (12/10/2013) + +-------+ + + + | Component | Value | Ref Range | Performed | Pathologist | | | | | At | Signature | + +-------+ + + + | Carbon | 27 | 19 - 31 | EXTERNAL | | | Dioxide, | | | LAB | | | External | | | | | + +-------+ + + + + + | Resulting Agency Comment | + + | [facility] | + + + +---------+ + + | Performing | Address | City/State/Zipcode | Phone Number | | Organization | | | | + +---------+ + + | EXTERNAL LAB | | | | + +---------+ + + External Lab: Chloride (12/10/2013) + +--------+ + + + | Component | Value | Ref Range | Performed | Pathologist | | | | | At | Signature | + +--------+ + + + | Chloride, | 89 (A) | 92 - 112 | EXTERNAL | | | External | | | LAB | | + +--------+ + + + + + | Resulting Agency Comment | + + | [facility] | + + + +---------+ + + | Performing | Address | City/State/Zipcode | Phone Number | | Organization | | | | + +---------+ + + | EXTERNAL LAB | | | | + +---------+ + + External Lab: Potassium (12/10/2013) + +-------+ + + + | Component | Value | Ref Range | Performed | Pathologist | | | | | At | Signature | + +-------+ + + + | Potassium, | 5 | 3.6 - 5.1 | EXTERNAL | | | External | | | LAB | | + +-------+ + + + + + | Resulting Agency Comment | + + | [facility] | + + + +---------+ + + | Performing | Address | City/State/Zipcode | Phone Number | | Organization | | | | + +---------+ + + | EXTERNAL LAB | | | | + +---------+ + + External Lab: Sodium (12/10/2013) + +---------+ + + + | Component | Value | Ref Range | Performed | Pathologist | | | | | At | Signature | + +---------+ + + + | Sodium, | 123 (A) | 132 - 143 | EXTERNAL | | | External | | | LAB | | + +---------+ + + + + + | Resulting Agency Comment | + + | [facility] | + + + +---------+ + + | Performing | Address | City/State/Zipcode | Phone Number | | Organization | | | | + +---------+ + + | EXTERNAL LAB | | | | + +---------+ + + External Lab: Vitamin D, 25-Hydroxy (12/10/2013) + +--------+ + + + | Component | Value | Ref Range | Performed | Pathologist | | | | | At | Signature | + +--------+ + + + | Vitamin D, | 22 (A) | 30 - 100 | EXTERNAL | | | 25-Hydroxy, | | | LAB | | | External | | | | | + +--------+ + + + + + | Specimen | + + | Blood specimen | | (specimen) | + + + + | Resulting Agency Comment | + + | [facility] | + + + +---------+ + + | Performing | Address | City/State/Zipcode | Phone Number | | Organization | | | | + +---------+ + + | EXTERNAL LAB | | | | + +---------+ + + External Lab: CBC (12/10/2013) + + + + + + | Component | Value | Ref Range | Performed | Pathologist | | | | | At | Signature | + + + + + + | WBC, | 8.6 | 4.5 - 11 | EXTERNAL | | | External | | | LAB | | + + + + + + | HGB, | 13.5 | 13.5 - 18 | EXTERNAL | | | External | | | LAB | | + + + + + + | HCT, | 38.7 (A) | 41 - 50 | EXTERNAL | | | External | | | LAB | | + + + + + + | PLT, | 249 | 140 - 440 | EXTERNAL | | | External | | | LAB | | + + + + + + | Neutrophils | 59.2 | 39 - 80 | EXTERNAL | | | %, | | | LAB | | | External | | | | | + + + + + + | Lymphocytes | 19.1 (A) | 24 - 44 | EXTERNAL | | | %, | | | LAB | | | External | | | | | + + + + + + | Monocytes | 14.9 (A) | 0 - 12 | EXTERNAL | | | %, External | | | LAB | | + + + + + + | Eosinophils | 6.1 (A) | 0 - 6 | EXTERNAL | | | %, | | | LAB | | | External | | | | | + + + + + + | RBC, | 4.12 (A) | 4.3 - 5.7 | EXTERNAL | | | External | | | LAB | | + + + + + + | MCV, | 94 | 81 - 99 | EXTERNAL | | | External | | | LAB | | + + + + + + | RDW, | 12.9 | 10.5 - 15 | EXTERNAL | | | External | | | LAB | | + + + + + + + + | Resulting Agency Comment | + + | [facility] | + + + +---------+ + + | Performing | Address | City/State/Zipcode | Phone Number | | Organization | | | | + +---------+ + + | EXTERNAL LAB | | | | + +---------+ + + External Lab: TSH (12/10/2013) + +-------+ + + + | Component | Value | Ref Range | Performed | Pathologist | | | | | At | Signature | + +-------+ + + + | TSH, | 0.966 | 0.27 - 4.2 | EXTERNAL | | | External | | | LAB | | + +-------+ + + + + + | Specimen | + + | Blood specimen | | (specimen) | + + + + | Resulting Agency Comment | + + | [facility] | + + + +---------+ + + | Performing | Address | City/State/Zipcode | Phone Number | | Organization | | | | + +---------+ + + | EXTERNAL LAB | | | | + +---------+ + + External Lab: Triglycerides (12/10/2013) + +-------+ + + + | Component | Value | Ref Range | Performed | Pathologist | | | | | At | Signature | + +-------+ + + + | Triglycerid | 57 | 30 - 150 | EXTERNAL | | | es, | | | LAB | | | External | | | | | + +-------+ + + + + + | Specimen | + + | Blood specimen | | (specimen) | + + + + | Resulting Agency Comment | + + | [facility] | + + + +---------+ + + | Performing | Address | City/State/Zipcode | Phone Number | | Organization | | | | + +---------+ + + | EXTERNAL LAB | | | | + +---------+ + + External Lab: Cholesterol, HDL (12/10/2013) + +-------+ + + + | Component | Value | Ref Range | Performed | Pathologist | | | | | At | Signature | + +-------+ + + + | HDL | 58.2 | 40 | EXTERNAL | | | Cholesterol | | | LAB | | | , External | | | | | + +-------+ + + + + + | Specimen | + + | Blood specimen | | (specimen) | + + + + | Resulting Agency Comment | + + | [facility] | + + + +---------+ + + | Performing | Address | City/State/Zipcode | Phone Number | | Organization | | | | + +---------+ + + | EXTERNAL LAB | | | | + +---------+ + + External Lab: Cholesterol, Total (12/10/2013) + +-------+ + + + | Component | Value | Ref Range | Performed | Pathologist | | | | | At | Signature | + +-------+ + + + | Cholesterol | 109 | 200 | EXTERNAL | | | , Total, | | | LAB | | | External | | | | | + +-------+ + + + + + | Specimen | + + | Blood specimen | | (specimen) | + + + + | Resulting Agency Comment | + + | [facility] | + + + +---------+ + + | Performing | Address | City/State/Zipcode | Phone Number | | Organization | | | | + +---------+ + + | EXTERNAL LAB | | | | + +---------+ + + External Lab: Cholesterol, LDL (12/10/2013) + +-------+ + + + | Component | Value | Ref Range | Performed | Pathologist | | | | | At | Signature | + +-------+ + + + | LDL | 39 | 100 | EXTERNAL | | | Cholesterol | | | LAB | | | , Direct, | | | | | | External | | | | | + +-------+ + + + + + | Specimen | + + | Blood specimen | | (specimen) | + + + + | Resulting Agency Comment | + + | [facility] | + + + +---------+ + + | Performing | Address | City/State/Zipcode | Phone Number | | Organization | | | | + +---------+ + + | EXTERNAL LAB | | | | + +---------+ + + External Lab: eGFR (12/10/2013) + +-------+ + + + | Component | Value | Ref Range | Performed | Pathologist | | | | | At | Signature | + +-------+ + + + | eGFR, | 68 | 60 | EXTERNAL | | | External | | | LAB | | + +-------+ + + + | eGFR, | | | EXTERNAL | | | | | | LAB | | | Ghanaian, | | | | | | External | | | | | + +-------+ + + + + + | Specimen | + + | Blood specimen | | (specimen) | + + + + | Resulting Agency Comment | + + | [facility] | + + + +---------+ + + | Performing | Address | City/State/Zipcode | Phone Number | | Organization | | | | + +---------+ + + | EXTERNAL LAB | | | | + +---------+ + + External Lab: Creatinine (12/10/2013) + +-------+ + + + | Component | Value | Ref Range | Performed | Pathologist | | | | | At | Signature | + +-------+ + + + | Creatinine, | 1.07 | 0.7 - 1.18 | EXTERNAL | | | External | | | LAB | | + +-------+ + + + + + | Specimen | + + | Blood specimen | | (specimen) | + + + + | Resulting Agency Comment | + + | [facility] | + + + +---------+ + + | Performing | Address | City/State/Zipcode | Phone Number | | Organization | | | | + +---------+ + + | EXTERNAL LAB | | | | + +---------+ + + documented in this encounter Visit Diagnoses Not on filedocumented in this encounter"
--- OUTSIDE RECORDS SUMMARY | ~2020-01-10 | XMS | Encounter Summary ---
Demographics + + + | Address | [address] | | | [place] [address] | + + + | Home Phone | | + + + | Preferred Language | Unknown | + + + | Marital Status | | + + + | Christian Affiliation | NON | + + + | Race | White | + + + | Ethnic Group | Not or | + + + Author + + + | Author | [facility] | + + + | Organization | [facility] | + + + | Address | Unknown | + + + | Phone | Unavailable | + + + Support + + + + + | Name | Relationship | Address | Phone | + + + + + | Selena Jimenez | ECON | [address] | | | | | [place] | | | | | [address] | | + + + + + | Ronny Edgard | ECON | Unknown | | + + + + + | Char Woodard | ECON | Unknown | | + + + + + Care Team Providers + +------+ + | Care Parts Finisher Name | Role | Phone | + +------+ + | Deondre Landis MD | PCP | | + +------+ + Reason for Referral Diagnostic Testing (Urgent) +--------+--------+ + + + + | Status | Reason | Specialty | Diagnoses / | Referred By | Referred To | | | | | Procedures | Contact | Contact | +--------+--------+ + + + + | Closed | | Radiology | Diagnoses | [place], | Rad Ct Scan | | | | | Hepatic | Christopher | [address] | | | | | lesion | MD [address] | | | | | Procedures | [address] | [facility] | | | | | CT | [facility] | [facility] and | | | | | MULTIPHASE | Rd | Healing, | | | | | LIVER AND | [place], [place] | [address], | | | | | [address] | [address] | 3rd Floor | | | | | CONTRAST SC | Phone: | [place], [place] | | | | | CT ABD&PELV | [phone] | [address] | | | | | 1+ | Fax: | Phone: | | | | | SECTION/REGN | [phone] | [phone] | | | | | S | | Fax: | | | | | | | [phone] | +--------+--------+ + + + + Reason for Visit + + + | Reason | Comments | + + + | Return Patient | | + + + Office Visit - E/M Services (Routine) +--------+--------+ + + + + | Status | Reason | Specialty | Diagnoses / | Referred By | Referred To | | | | | Procedures | Contact | Contact | +--------+--------+ + + + + | Closed | | Surgery | | Non[facility] | Gs Foregut | | | | | | Epic Dept | [facility] [address] | | | | | | [address] | | | | | | | [facility] | | | | | | | Health and | | | | | | | Healing, | | | | | | | [address] | | | | | | | [place], [place] | | | | | | | [address] | | | | | | | Phone: | | | | | | | [phone] | | | | | | | Fax: | | | | | | | [phone] | +--------+--------+ + + + + Encounter Details +--------+---------+ + + + | Date | Type | Department | Care Team | Description | +--------+---------+ + + + | 09/16/ | Office | Digestive Health | Char Castillo, | Abscess, liver | | 2017 | Visit | Center at [facility] [address] | MD [address] | (Primary Dx); | | | | [address] [facility] | [address] [place], [place] | Hepatic lesion | | | | for Health and | [address] | | | | | Healing, [address] | [phone] | | | | | [place], [place] | | | | | | [address] | | | | | | [phone] | | | +--------+---------+ + + + [...] | + +-------+---+---+ + + | Comments: suny gabriellautamikayla pure mint leaves snuff (nicotine free) | [...] + + + | Blood Pressure | 111/61 | 09/16/2017 2:04 PM | | | | | PST | | + + + + + | Pulse | 66 | 09/16/2017 2:04 PM | | | | | PST | | + + + + + | Temperature | 36.3 C (97.3 F) | 09/16/2017 2:04 PM | | | | | PST | | + + + + + | Respiratory Rate | 14 | 09/16/2017 2:04 PM | | | | | PST | | + + + + + | Oxygen Saturation | 98% | 09/16/2017 2:04 PM | | | | | PST | | + + + + + | Inhaled Oxygen | - | - | | | Concentration | | | | + + + + + | Weight | 70.8 kg (156 lb) | 09/16/2017 2:04 PM | | | | | PST | | + + + + + | Height | 175.3 cm (5' 9") | 09/16/2017 2:04 PM | | | | | PST | | + + + + + | Body Mass Index | 23.04 | 09/16/2017 2:04 PM | | | | | PST | | + + + + + documented in this encounter Progress Notes Ronak Pineda MD - 09/16/2017 1:50 PM PSTFormatting of this note might be differ ent from the original. [facility] Outpatient Follow-up Note 09/16/2017 Patient: Junaid Jimenez ID: Junaid Jimenez is a 77 y.o. male who is s/p laparoscopic transhiatal esophagectomy 015 for early stage esophageal cancer with final path showing low-grade dysplasia and intest inal metaplasia but negative for invasive component c/b leak requiring take back for I&D. He presents today after complicated ICU admission for septic shock and acute cholecystitis s/p lap casa on 08/29/2017 at OSH with incidental finding of 6 x 4 x 4.6 cm hypoenhancing mass in caudate lobe of liver and posterior aspect of intrahepatic IVC. He was discharged to [facility] on 09/06. INTERVAL HISTORY: He has been living with his daughter and doing very well He has been asymptomatic at home No pain, eating well, gaining weight with regular bowel movements No chest pain, shortness of breath, fevers, chills, edema He walks around the house using his walker His incisions are healing well without issue Denies unintentional weight loss or abdominal pain prior to recent hospitalization PHYSICAL EXAM: BP 111/61 | Pulse 66 | Temp (Src) 36.3 C (97.3 F) (Oral) | RR 14 | Ht 1.753 m (5' 9") | Wt 70.8 kg (156 lb) | SpO2 98% | BMI 23.04 kg/(m^2) General: NAD, walker for mobility HEENT: MMM, EOMI Respiratory: Unlabored on RA CV: well perfused, palpable pulses Abdomen: soft, not distended, not tender, incisions c/d/i Extremities: no peripheral edema Neurologic: A&Ox3, no focal neurologic defects LABS/IMAGING: Chemistries CBC with diff Invalid input(s): BANDPCT Coags Lab Results Component Value Date INRPT 0.87 03/26/2015 CBGs Labs from recent hospitalization reviewed ASSESSMENT AND PLAN: Junaid Jimenez is a 77 y.o. male who is s/p laparoscopic transhiatal esophagectomy 03/27/2015 for early stage esophageal cancer with final path showing low-grade dysplasia and intestinal metaplasia but negative for invasive component. He was recently discharged from OSH after c omplicated ICU course for septic shock s/p lap casa on 08/29/2017 where work-up revealed a 6 x 4 x 4.6 cm hypoenhancing mass in caudate lobe of liver and posterior aspect of intrahepa tic IVC. Reviewing the op note, visualtization of the lesion was not possible. After discuss ion with hepatobiliary surgery and radiology, further workup with CT liver today to eval for malignant vs infectious etiology. Patient seen and discussed with Dr. Castillo. Ronak Pineda MD Department of Surgery, PGY-2 [facility] ADDENDUM I personally interviewed the patient, performed the pertinent parts of the physical examina tion and personally formulated the plan with the resident. I agree with the residents docum entation and have documented any additions or exceptions. CT-scan abdo/pelvis reviewed with Dr. Mau Infante - Impression: Since 08/27/17, caudate lob e lesion with adjacent pericaval collection has decreased in size and is most consistent wit h resolving liver abscess. Consider additional followup CT 6-8 weeks to document continued r esolution. After discussion CT results with Dr. Infante and Dr. Infante, the consensus is that he likel y developed a liver abscess in the setting of cholecystitis (now s/p lap casa) and bacterem ia (resistant E.Coli) . He is currently HDS and feels well, just tired. The abscess is sign ificantly smaller. Will plan to restart ABX Levofloxacin and flagyl x 2 weeks (sensitive to Levofloxacin and meropenem in OSH) and repeat CT scan after that to confirm resolution of ab scess. Discussed the antibiotic choice with ID (Dr. Tito Valverde). Char Castillo MD [facility] [address]TH FLOOR [address] Mailcode: [facility] [place] [address] documented in this encounter Plan of Treatment Not on filedocumented as of this encounter Results CT MULTIPHASE LIVER AND PELVIS W IV CONTRAST (09/16/2017 3:56 PM PST) + + | Specimen | + + | | + + + + + | Narrative | Performed At | + + + | EXAM: Liver protocol CT of the abdomen with and without contrast. | [facility] | | CT of the pelvis with contrast. HISTORY: Followup caudate lobe | RADIOLOGY VOICE | | mass. Concern for malignancy versus an infectious etiology. | RECOGNITION | | COMPARISON: 08/27/17 TECHNIQUE: Unenhanced, arterial, portal venous | | | and 4-minute delayed abdominal CT with non-ionic iodinated | | | intravenous contrast. CT of the pelvis in the portal venous phase. | | | Coronal and sagittal reformats were reviewed. FINDINGS: LOWER | | | THORAX: Partially visualized postsurgical changes from esophagectomy | | | and gastric pull-through. LIVER: Background liver parenchyma is | | | normal. The contours are smooth. Rim-enhancing caudate lobe lesion is | | | smaller, now measuring 2.3 x 1.9 cm, previously 5 x 3.2 cm suggestive | | | of a resolving abscess. An adjacent hypodense pericaval collection | | | measuring 1.9 x 1.5 cm previously measured 2.9 x 2.4 cm. This | | | collection results in mass effect on the hepatic vena cava as before. | | | No definite evidence of venous thrombus within the cava. | | | Otherwise, there are also geographic areas of arterial enhancement, | | | which are favored to be perfusional. There is no other focal hepatic | | | lesion. BILIARY: The gallbladder is surgically absent. There is no | | | biliary dilatation. SPLEEN: Unremarkable. PANCREAS: | | | Unremarkable. ADRENALS: Unremarkable. KIDNEYS/URETERS: Several renal | | | cysts are stable. No hydronephrosis or hydroureter. PELVIC ORGANS: | | | The bladder wall is mildly thickened, likely representing chronic | | | outlet obstruction. GI TRACT: Sigmoid and descending colon | | | diverticulosis. No evidence of diverticulitis. The GI tract is | | | otherwise unremarkable. PERITONEUM: Trace free fluid in the left | | | paracolic gutter. No pneumoperitoneum. Resolution of previously seen | | | fluid around the duodenum, hepatic flexure of the colon and in the | | | right paracolic gutter. LYMPH NODES: No lymphadenopathy. VESSELS: | | | Extensive abdominal aorta atherosclerotic calcification. 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 BONES AND SOFT TISSUES: Lower lumbar | | | spine and sacral hardware redemonstrated. No acute or suspicious | | | osseous abnormality. IMPRESSION: Since 08/27/17, caudate | | | lobe lesion with adjacent pericaval collection has decreased in size | | | and is most consistent with resolving liver abscess. Consider | | | additional followup CT 6-8 weeks to document continued resolution. | | | I have personally reviewed the images and, if necessary, | | | edited the report. I agree with the report as now presented. | | + + + + + | Procedure Note | + + | Service Account, Radiant Res In Interface - 09/16/2017 4:41 PM PST EXAM: Liver | | protocol CT of the abdomen with and without contrast. CT of the pelvis with | | contrast.HISTORY: Followup caudate lobe mass. Concern for malignancy versus an | | infectious etiology.COMPARISON: 08/27/17TECHNIQUE: Unenhanced, arterial, portal venous | | and 4-minute delayed abdominal CT with non-ionic iodinated intravenous contrast. CT of | | the pelvis in the portal venous phase. Coronal and sagittal reformats were | | reviewed.FINDINGS:LOWER THORAX: Partially visualized postsurgical changes from | | esophagectomy and gastric pull-through.LIVER: Background liver parenchyma is normal. The | | contours are smooth. Rim-enhancing caudate lobe lesion is smaller, now measuring 2.3 x | | 1.9 cm, previously 5 x 3.2 cm suggestive of a resolving abscess. An adjacent hypodense | | pericaval collection measuring 1.9 x 1.5 cm previously measured 2.9 x 2.4 cm. This | | collection results in mass effect on the hepatic vena cava as before. No definite | | evidence of venous thrombus within the cava.Otherwise, there are also geographic areas | | of arterial enhancement, which are favored to be perfusional. There is no other focal | | hepatic lesion.BILIARY: The gallbladder is surgically absent. There is no biliary | | dilatation.SPLEEN: Unremarkable.PANCREAS: Unremarkable.ADRENALS: | | Unremarkable.KIDNEYS/URETERS: Several renal cysts are stable. No hydronephrosis or | | hydroureter.PELVIC ORGANS: The bladder wall is mildly thickened, likely representing | | chronic outlet obstruction. GI TRACT: Sigmoid and descending colon diverticulosis. No | | evidence of diverticulitis. The GI tract is otherwise unremarkable.PERITONEUM: Trace | | free fluid in the left paracolic gutter. No pneumoperitoneum. Resolution of previously | | seen fluid around the duodenum, hepatic flexure of the colon and in the right paracolic | | gutter.LYMPH NODES: No lymphadenopathy.VESSELS: Extensive abdominal aorta | | atherosclerotic calcification. Stable left common iliac artery aneurysm.BONES AND SOFT | | TISSUES: Lower lumbar spine and sacral hardware redemonstrated. No acute or suspicious | | osseous abnormality.IMPRESSION:Since 08/27/17, caudate lobe lesion with adjacent | | pericaval collection has decreased in size and is most consistent with resolving liver | | abscess. Consider additional followup CT 6-8 weeks to document continued resolution. I | | have personally reviewed the images and, if necessary, edited the report. I agree with | | the report as now presented. | | | |IMPRESSION: | | | |Since 08/27/17, caudate lobe lesion with adjacent pericaval collection has decreased in size and is most consistent with resolving liver abscess. Consider additional followup CT 6-8 we eks to document continued resolution. | | | | | | | | | |I have personally reviewed the images and, if necessary, edited the report. I agree with t he report as now presented. | + + + +---------+ + + | Performing | Address | City/State/Zipcode | Phone Number | | Organization | | | | + +---------+ + + | [facility] | | | | | VOICE RECOGNITION | | | | + +---------+ + + documented in this encounter Visit Diagnoses + + | Diagnosis | + + | Abscess, liver - Primary Abscess of liver | + + | Hepatic lesion Other specified disorders of liver | + + documented in this encounter
--- OUTSIDE RECORDS SUMMARY | ~2020-01-10 | XMS | Encounter Summary ---
Demographics + + + | Address | [address] | | | [place] [address] | + + + | Home Phone | | + + + | Preferred Language | Unknown | + + + | Marital Status | | + + + | Church Affiliation | NON | + + + | Race | White | + + + | Ethnic Group | Not or | + + + Author + + + | Author | [facility] | + + + | Organization | [facility] | + + + | Address | Unknown | + + + | Phone | Unavailable | + + + Support + + + + + | Name | Relationship | Address | Phone | + + + + + | Selena Jimenez | ECON | [address] | | | | | [place] | | | | | [address] | | + + + + + | Ronny Rene | ECON | Unknown | | + + + + + | Char Woodard | ECON | Unknown | | + + + + + Care Team Providers + +------+ + | Care Rock Star Name | Role | Phone | + +------+ + | Deondre Landis MD | PCP | | + +------+ + Reason for Visit + + + | Reason | Comments | + + + | Lab Order | CMP for schedule CT | + + + Encounter Details +--------+ + + + + | Date | Type | Department | Care Team | Description | +--------+ + + + + | 02/09/ | Assistant Winemaker | Dig[facility]ive [facility] | Vijay Akbar MD | Esophageal | | 2016 | | Center at [facility] [address] | [address] | adenocarcinoma (HCC) | | | | [facility] | Latesha Soliz [facility] (Primary Dx) | | | | for Health and | [place] [address] | | | | | [place] [address] | [phone] | | | | | [place], [place] | | | | | | [address] | | | | | | [phone] | | | +--------+ + + + [...] + | Diagnosis | + + | Esophageal adenocarcinoma (HCC) - Primary Malignant neoplasm of esophagus, | | unspecified site | + + documented in this encounter"
--- OUTSIDE RECORDS SUMMARY | ~2020-01-10 | XMS | Encounter Summary ---
Demographics + + + | Address | [address] | | | [place] [address] | + + + | Home Phone | | + + + | Preferred Language | Unknown | + + + | Marital Status | | + + + | Moravian Affiliation | NON | + + + | Race | White | + + + | Ethnic Group | Not or | + + + Author + + + | Author | [facility] | + + + | Organization | [facility] | + + + | Address | Unknown | + + + | Phone | Unavailable | + + + Support + + + + + | Name | Relationship | Address | Phone | + + + + + | Selena Jimenez | ECON | [address] | | | | | [place] | | | | | [address] | | + + + + + | Ronny Rene | ECON | Unknown | + | + + + + + | Char Woodard | ECON | Unknown | | + + + + + Care Team Providers + +------+ + | Care Construction Contractor Name | Role | Phone | + +------+ + | David Ferrera MD | PCP | | + +------+ + Encounter Details +--------+ + + + + | Date | Type | Department | Care Team | Description | +--------+ + + + + | 04/06/ | Pharmacy | Outpatient Retail | | | | 2014 | Visit | [facility] | | | | | | [address] | | | | | | [address] [place], [place] | | | | | | [address] | | | | | | [phone] | | | +--------+ + + + [...]
--- OUTSIDE RECORDS SUMMARY | ~2020-01-10 | XMS | Encounter Summary ---
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 [facility] | | | | | g/dL | LABORATORY | | | | | | SERVICES, | | | | | | CORE | | + + + + + + | HEMATOCRIT | 37.2 (L) | 41.0 - 53.0 % | [facility] | | | | | | LABORATORY | | | | | | SERVICES, | | | | | | CORE | | + + + + + + | MCV | 90.7 | 80.0 - 100.0 fL | [facility] | | | | | | LABORATORY | | | | | | SERVICES, | | | | | | CORE | | + + + + + + | MCHC | 31.7 (L) | 32.0 - 36.0 | [facility] | | | | | g/dL | LABORATORY | | | | | | SERVICES, | | | | | | CORE | | + + + + + + | RDW SD | 43.3 | 35.1 - 46.3 fL | [facility] | | | | | | LABORATORY | | | | | | SERVICES, | | | | | | CORE | | + + + + + + | PLATELET | 486 (H) | 150 - 400 K/cu | [facility] | | | COUNT | | mm | LABORATORY | | | | | | SERVICES, | | | | | | CORE | | + + + + + + | MPV | 10.5 | 9.7 - 12.3 fL | [facility] | | | | | | LABORATORY | | | | | | SERVICES, | | | | | | CORE | | + + + + + + | NRBC% | 0.0 | 0.0 - 0.3 % | [facility] | | | | | | LABORATORY | | | | | | SERVICES, | | | | | | CORE | | + + + + + + | NRBC# | 0.00 | 0.00 - 0.02 | [facility] | | | | | K/cu mm | LABORATORY | | | | | | SERVICES, | | | | | | CORE | | + + + + + + + + | Specimen | + + | Blood - Blood | | (substance) | + + + + + + + | Performing | Address | City/State/Zipcode | Phone Number | | Organization | | | | + + + + + | [facility] | [address] | [place] [address] | | | SERVICES, CORE | [address] | | | + + + + + BASIC METABOLIC SET (NA, K, CL, TCO2, BUN, CR, GLU, CA) (01/29/2019 2:22 PM PDT) + + + + + + | Component | Value | Ref Range | Performed | Pathologist | | | | | At | Signature | + + + + + + | GLUCOSE, | 103 (H) | 70 - 99 mg/dL | [facility] | | | PLASMA | | | LABORATORY | | | (LAB) | | | SERVICES, | | | | | | CORE | | + + + + + + | BUN, PLASMA | 27 (H) | 6 - 20 mg/dL | [facility] | | | (LAB) | | | LABORATORY | | | | | | SERVICES, | | | | | | CORE | | + + + + + + | CREATININE | 1.17 | 0.70 - 1.30 | [facility] | | | PLASMA | | mg/dL | LABORATORY | | | (LAB) | | | SERVICES, | | | | | | CORE | | + + + + + + | EGFR | >60 | >60 mL/min | [facility] | | | - | | | LABORATORY | | | UGANDAN | | | SERVICES, | | | | | | CORE | | + + + + + + | EGFR NON | >60 | >60 mL/min | [facility] | | | -MILAGRO | | | LABORATORY | | | RICAN | | | SERVICES, | | | | | | CORE | | + + + + + + | SODIUM, | 136 | 136 - 145 | [facility] | | | PLASMA | | mmol/L | LABORATORY | | | (LAB) | | | SERVICES, | | | | | | CORE | | + + + + + + | POTASSIUM, | 4.6 | 3.4 - 5.0 | [facility] | | | PLASMA | | mmol/L | LABORATORY | | | (LAB) | | | SERVICES, | | | | | | CORE | | + + + + + + | CHLORIDE, | 104 | 97 - 108 mmol/L | [facility] | | | PLASMA | | | LABORATORY | | | (LAB) | | | SERVICES, | | | | | | CORE | | + + + + + + | TOTAL CO2, | 26 | 21 - 32 mmol/L | [facility] | | | PLASMA | | | LABORATORY | | | (LAB) | | | SERVICES, | | | | | | CORE | | + + + + + + | CALCIUM, | 10.3 (H) | 8.6 - 10.2 | [facility] | | | PLASMA | | mg/dL | LABORATORY | | | (LAB) | | | SERVICES, | | | | | | CORE | | + + + + + + | ANION GAP | 6 | 4 - 11 mmol/L | [facility] | | | | | | LABORATORY | | | | | | SERVICES, | | | | | | CORE | | + + + + + + | POTASSIUM | No Hemo | | [facility] | | | CMNT | | | LABORATORY | | | | | | SERVICES, | | | | | | CORE | | + + + + + + + + | Specimen | + + | Blood - Blood | | (substance) | + + + + + | Narrative | Performed At | + + + | GFR is estimated using the MDRD equation recommended by the National | [facility] | | Kidney Disease Education Program. Estimated GFR Interpretive | LABORATORY | | Information: <60 mL/min/1.73 sq m Chronic Kidney | SERVICES, [facility] | | Disease <15 mL/min/1.73 sq m Kidney Failure | | | Estimated GFR greater than 60 mL/min/1.73 sq m is of limited clinical | | | value. The MDRD equation is not valid in the following situations: - | | | Patients under 18 years of age - Severe malnutrition or obesity - | | | Vegetarian diet - Rapidly changing kidney function - Amputees, | | | paraplegics, or other muscle-wasting diseses | | + + + + + + + + | Performing | Address | City/State/Zipcode | Phone Number | | Organization | | | | + + + + + | [facility] | [address] | [place] [address] | | | [place] | [address] | | | + + + + + 12 LEAD ECG (01/29/2019 2:13 PM PDT) + + + + + + | Component | Value | Ref Range | Performed | Pathologist | | | | | At | Signature | + + + + + + | VENTRICULAR | 86 | bpm | [facility] | | | RATE | | | OF | | | | | | CARDIOLOGY | | + + + + + + | ATRIAL RATE | 87 | ms | [facility] | | | | | | OF | | | | | | CARDIOLOGY | | + + + + + + | P-R | 164 | ms | [facility] | | | INTERVAL | | | OF | | | | | | CARDIOLOGY | | + + + + + + | P AXIS | 49 | deg | [facility] | | | | | | OF | | | | | | CARDIOLOGY | | + + + + + + | QRS | 92 | ms | [facility] | | | DURATION | | | OF | | | | | | CARDIOLOGY | | + + + + + + | QT | 384 | ms | [facility] | | | | | | OF | | | | | | CARDIOLOGY | | + + + + + + | QTC-KATERINE | 460 | ms | [facility] | | | | | | OF | | | | | | CARDIOLOGY | | + + + + + + | R AXIS | -18 | deg | [facility] | | | | | | OF | | | | | | CARDIOLOGY | | + + + + + + | T AXIS | 30 | deg | [facility] | | | | | | OF | | | | | | CARDIOLOGY | | + + + + + + | ECG | Sinus rhythm | | [facility] | | | IMPRESSION | | | OF | | | | | | CARDIOLOGY | | + + + + + + | ECG | Inferior infarct, old- | | [facility] | | | IMPRESSION | ABNORMAL ECG - | | OF | | | | | | CARDIOLOGY | | + + + + + + | ECG | Electronically signed | | [facility] | | | IMPRESSION | by: RYAN MARTINEZ | | OF | | | | 01-29-2019 21:44:18 | | CARDIOLOGY | | + + + + + + + + | Specimen | + + | | + + + + + | Narrative | Performed At | + + + | | | + + + + + + + + | Performing | Address | City/State/Zipcode | Phone Number | | Organization | | | | + + + + + | [facility] | [address] | [place], [place] | | | CARDIOLOGY | [address] | [address] | | + + + + + documented in this encounter Visit Diagnoses + + | Diagnosis | + + | Closed supracondylar fracture of right humerus, initial encounter - Primary | + + | Esophageal cancer (HCC) Malignant neoplasm of esophagus, unspecified site | + + | Pre-op evaluation Preoperative examination, unspecified | + + | Preop examination Preoperative examination, unspecified | + + documented in this encounter
--- OUTSIDE RECORDS SUMMARY | ~2020-01-10 | XMS | Encounter Summary ---
Demographics + + + | Address | [address] | | | [place] [address] | + + + | Home Phone | | + + + | Preferred Language | Unknown | + + + | Marital Status | | + + + | Latter-Day Affiliation | Unknown | + + + | Race | Unknown | + + + | Ethnic Group | Unknown | + + + Author + + + | Author | [facility] | | | and [place] | + + + | Organization | [facility] | | | and [place] | + + + | Address | Unknown | + + + | Phone | Unavailable | + + + Support + + + + + | Name | Relationship | Address | Phone | + + + + + | Selena Jimenez | ECON | [id number] | | | | | [place] [address] | | + + + + + Care Team Providers + +------+ + | Care Ui Engineer Name | Role | Phone | + +------+ + | Mingo Burgos DO | PCP | | + +------+ + Reason for Visit + + + | Reason | Comments | + + + | Annual Exam | | + + + | Coronary Artery | | | Disease | | + + + | Hypertension | | + + + | Hyperlipidemia | | + + + Encounter Details +--------+---------+ + + + | Date | Type | Department | Care Team | Description | +--------+---------+ + + + | 09/18/ | Office | [facility] | Bernice Antonio, | CAD (coronary artery | | 2013 | Visit | CARDIOLOGY [address] | disease) (Primary | | | | [address] [place], | [place], | Dx); Essential | | | | [place] [address] | [place] [address] | hypertension | | | | [phone] | [phone] | | | | | | | | +--------+---------+ + + + Social History + +-------+ [...] + + | Comments: quit smoking in 2006/suff is herbal, no nicotine | + + [...] + + + | Blood Pressure | 126/60 | 09/18/2014 11:31 AM | right arm | | | | PST | | + + + + + | Pulse | 64 | 09/18/2014 11:31 AM | regular | | | | PST | | + + + + + | Temperature | - | - | | + + + + + | Respiratory Rate | 16 | 09/18/2014 11:31 AM | | | | | PST | | + + + + + | Oxygen Saturation | - | - | | + + + + + | Inhaled Oxygen | - | - | | | Concentration | | | | + + + + + | Weight | 78 kg (171 lb 14.4 | 09/18/2014 11:31 AM | | | | oz) | PST | | + + + + + | Height | 172.7 cm (5' 8") | 09/18/2014 11:31 AM | | | | | PST | | + + + + + | Body Mass Index | 26.14 | 09/18/2014 11:31 AM | | | | | PST | | + + + + + documented in this encounter Patient Instructions Patient Instructions Jeremy Negron RN - 09/18/2014 12:12 PM PST1. Viagra 25 mg as needed. Do not use Nitroglycerin within 24 hours of using this medication. 2. Follow up with cardiology in about 1 year.Electronically signed by Jeremy Negron RN at 1 12:13 PM PST documented in this encounter Progress Notes Bernice Antonio MD - 09/18/2014 11:42 AM PSTFormatting of this note might be different f rom the original. PATIENT NAME: Junaid Jimenez : 1940: AGE: 74 y.o. PRIMARY CARE: Mingo Burgos DO OUTPATIENT FOLLOW UP VISIT Date of Service: 09/18/2014 HISTORY OF PRESENT ILLNESS: Junaid Jimenez is a 74 y.o.man with a history of coronary artery disease, post CABG x 2 in 12/2007, hypertension, hyperlipidemia, gastroesophageal reflux disease and remote smoking. Patient is being seen today for a treatment of his CAD and hypertension. He was last seen on 08/04/2013 at which time, patient was doing well. Since that time, he has been doing well for the most part. He is physically active by moving around inside and outside his house in [place], [place]. He has no significant cardiac complaints. There is no chest pain or chest discomfort both at rest and on exertion. Patient denies breathlessn ess. There is no palpitation dizziness or lightheadedness. There is no ankle or leg swelli ng. Patient can sleep on one pillow at night without difficulty breathing. MEDICAL, SURGICAL, AND PERSONAL HISTORY Past Medical, Surgical, Family, and Social History are reviewed in EPIC. CURRENT PROBLEMS Patient Active Problem List Diagnosis OBESITY TOBACCO USER GERD HYPERLIPIDEMIA HYPERTENSION CHEST PAIN CAD Chronic low back pain DDD (degenerative disc disease), lumbar S/P lumbar spinal fusion Lumbar radiculopathy/neurogenic claudication Shoulder pain, bilateral Knee pain, bilateral CURRENT MEDICATIONS Current Outpatient Prescriptions Medication Sig Dispense Refill amLODIPine (NORVASC) 5 mg tablet aspirin 325 mg EC tablet Take 81 mg by mouth Daily. atorvaSTATin (LIPITOR) 80 MG tablet Take 80 mg by mouth nightly. lisinopril (PRINIVIL,ZESTRIL) 40 MG tablet meloxicam (MOBIC) 15 mg tablet Take 15 mg by mouth Daily. metoprolol tartrate (LOPRESSOR) 50 mg tablet TAKE ONE TABLET BY MOUTH TWICE DAILY 60 t ablet 6 nitroglycerin (NITROSTAT) 0.4 mg SL tablet One tablet under tongue as needed for chest pain. May repeat every 5 minutes up to 3 times. If no relief after 3rd tablet, call 911. 25 tablet 11 omeprazole (PRILOSEC) 20 mg capsule Take 20 mg by mouth Daily. ALLERGIES Allergies Allergen Reactions Adhesive & Tape Rash ROS Review of Systems Constitutional: Positive for weight loss and malaise/fatigue. Negative for fever, chills an d diaphoresis. HENT: Positive for congestion, hearing loss and tinnitus. Negative for ear discharge, ear p ain and nosebleeds. Eyes: Negative for blurred vision and double vision. Respiratory: Positive for cough. Negative for shortness of breath, wheezing and stridor. Cardiovascular: Positive for claudication. Negative for chest pain, palpitations, orthopnea , leg swelling and PND. Gastrointestinal: Positive for heartburn and constipation. Negative for nausea, abdominal p ain, diarrhea, blood in stool and melena. Genitourinary: Positive for urgency and frequency. Negative for dysuria, hematuria and flan k pain. Musculoskeletal: Positive for back pain. Negative for falls, myalgias and neck pain. Skin: Negative for itching and rash. Neurological: Positive for weakness. Negative for dizziness, tingling, tremors, seizures, l oss of consciousness and headaches. Endo/Heme/Allergies: Negative for environmental allergies and polydipsia. Does not bruise/b leed easily. Psychiatric/Behavioral: Negative for memory loss. The patient is not nervous/anxious and do es not have insomnia. OBJECTIVE: PHYSICAL EXAM BP 126/60 | Pulse 64 | Resp 16 | Ht 1.727 m (5' 8") | Wt 77.973 kg (171 lb 14.4 oz) | BMI 2 6.14 kg/m2 Physical Exam Constitutional: He appears well-developed and well-nourished. No distress. Male, elderly individual without acute distress. Neck: Normal carotid pulses, no hepatojugular reflux and no JVD present. Carotid bruit is n ot present. Cardiovascular: Normal rate, regular rhythm, S1 normal, S2 normal, normal heart sounds, int act distal pulses and normal pulses. PMI is not displaced. Exam reveals no gallop, no S3, no S4 and no friction rub. No murmur heard. Pulses: Carotid pulses are 2+ on the right side, and 2+ on the left side. Dorsalis pedis pulses are 2+ on the right side, and 2+ on the left side. Pulmonary/Chest: Effort normal and breath sounds normal. No accessory muscle usage. No resp iratory distress. He has no wheezes. He has no rhonchi. He has no rales. Abdominal: Normal appearance, normal aorta and bowel sounds are normal. He exhibits no abdo danae bruit. There is no hepatosplenomegaly. There is no tenderness. Musculoskeletal: He exhibits no edema. Neurological: He is alert. Gait normal. Skin: Skin is warm and dry. Psychiatric: He has a normal mood and affect. His mood appears not anxious. He does not exh ibit a depressed mood. EKG, sinus bradycardia, heart rate 48 beats minute, otherwise, normal EKG. LAB RESULTS: LIPID Lab Results Component Value Date TRIG 39 06/11/2013 HDL 74.7 06/11/2013 LDL 93 06/11/2013 CHOLHDL 1.9 07/01/2014 LDLEX 67 07/01/2014 HDLEX 85.4 07/01/2014 TRIGEX 54 07/01/2014 CHOLEX 163 07/01/2014 CHEMISTRY Lab Results Component Value Date GLU 96 06/11/2013 NA 133 06/11/2013 K 4.2 06/11/2013 CL 97 06/11/2013 CO2 29 06/11/2013 CALCIUM 10.8 06/11/2013 ALKPHOS 73 06/11/2013 AST 17 06/11/2013 ASTEX 20 07/01/2014 ALT 12 06/11/2013 ALTEX 13 07/01/2014 BILITOT 0.4 06/11/2013 BUN 12 06/11/2013 EGFREX 63 07/01/2014 CREEX 1.14 07/01/2014 HEMATOLOGY Lab Results Component Value Date HGBEX 13.9 07/01/2014 I reviewed records from Mingo Burgos D.O. for office visit on 07/02/14 . ASSESSMENT: 1. Coronary artery disease: A. Left heart catheterization on 01/03/08 revealed severe two-vessel disease with a complex high-grade 90% stenosis of the proximal LAD, 100% stenosis to the proximal RCA. Nor mal LV size and systolic function. LVEF of 55%. B. CABG x 2 on 01/16/[address] Yonas Cyr. ALFONSO to the LAD and SVG to the posteri or descending coronary artery. C. Today he continues to do very well. He denies any chest pain. He is asymptomati c and physically active. His physical exam reveals no evidence of fluid retention. He remai ns in class I of the [place] [employer] functional class. 2. Hypertension: A. Today his blood pressure is well controlled. 3. Hyperlipidemia: A. He is on simvastatin 80 mg a day. His lipid profile from 07/01/14 looks oscar astic. 4. Erectile dysfunction A. Today, patient mentioned that he has a difficulty to maintain his erection. PLAN: 1. Start her Viagra 25 mg as needed to treat erectile dysfunction. Patient was informed no t to take concomitant nitroglycerin. 2. Today, patient is doing well from cardiac standpoint. I will continue with current medi jarek regimen. 3. followup in one year. Electronically signed by: Bernice Antonio MD [facility] 09/18/2014 Portions of this chart may have been created with [employer] voice recognition software. Occasi onal wrong-word or sound-alike substitutions may have occurred due to the inherent kurtz itations of voice recognition software. Please read the chart carefully and recognize, using context, where these substitutions have occurred. documented in this encounter Plan of Treatment +--------+---------+ + + + | Date | Type | Specialty | Care Team | Description | +--------+---------+ + + + | 02/14/ | Office | Cardiology | Bernice Antonio, | | | 2019 | Visit | | MD [address] | | | | | | [place], | | | | | | [place] [address] | | | | | | [phone] | | | | | | | | +--------+---------+ + + + + +------+--------+ + + | Name | Type | Priori | Associated Diagnoses | Order Schedule | | | | ty | | | + +------+--------+ + + | ECG 12 lead | ECG | Routin | CAD (coronary | Ordered: 09/18/2014 | | | | e | artery disease) | | | | | | Essential | | | | | | hypertension | | + +------+--------+ + + documented as of this encounter Visit Diagnoses + + | Diagnosis | + + | CAD (coronary artery disease) - Primary Coronary atherosclerosis of unspecified type | | of vessel, chitimacha or graft | + + | Essential hypertension Unspecified essential hypertension | + + documented in this encounter
--- OUTSIDE RECORDS SUMMARY | ~2020-01-10 | XMS | Encounter Summary ---
Demographics + + + | Address | [address] | | | [place] [address] | + + + | Home Phone | | + + + | Preferred Language | Unknown | + + + | Marital Status | | + + + | Bahai Affiliation | NON | + + + | Race | White | + + + | Ethnic Group | Not or | + + + Author + + + | Author | [facility] | + + + | Organization | [facility] | + + + | Address | Unknown | + + + | Phone | Unavailable | + + + Support + + + + + | Name | Relationship | Address | Phone | + + + + + | Selena Jimenez | ECON | [address] | | | | | [place] | | | | | [address] | | + + + + + | Ronny Rene | ECON | Unknown | | + + + + + | Char Woodard | ECON | Unknown | | + + + + + Care Team Providers + +------+ + | Care Rubber Goods Finisher Name | Role | Phone | + +------+ + | David Ferrera MD | PCP | | + +------+ + Reason for Visit + + + | Reason | Comments | + + + | Medical Records | | | Review | | + + + Encounter Details +--------+ + + + + | Date | Type | Department | Care Team | Description | +--------+ + + + + | 11/21/ | Documentati | Endoscopic | Lab, Gi Procedure | Medical Records | | 2015 | on | Procedural Unit at | | Review | | | | [facility] [address] | | | | | [address] | | | | | | [place], | | | | | | [address] [facility] | | | | | | [place] [address] | | | | | | [phone] | | | +--------+ + + + + Social History + +-------+ +--------+------+ | Tobacco Use | Types | Packs/Day | Years | Date | | | | | Used | | + +-------+ +--------+------+ | Never Assessed | | | | | + +-------+ +--------+------+ + + + | Sex Assigned at [...]
--- OUTSIDE RECORDS SUMMARY | ~2020-01-10 | XMS | Encounter Summary ---
Demographics + + + | Address | [address] | | | [place] [address] | + + + | Home Phone | | + + + | Preferred Language | Unknown | + + + | Marital Status | | + + + | Worship Affiliation | Unknown | + + + | Race | Unknown | + + + | Ethnic Group | Unknown | + + + Author + + + | Author | [facility] | | | and [place] | + + + | Organization | [facility] | | | and [place] | + + + | Address | Unknown | + + + | Phone | Unavailable | + + + Support + + + + + | Name | Relationship | Address | Phone | + + + + + | Selena Jimenez | ECON | [id number] | | | | | [place] [address] | | + + + + + Care Team Providers + +------+ + | Care Drafter Plumbing Name | Role | Phone | + +------+ + | Mingo Burgos DO | PCP | | + +------+ + Reason for Visit + + + | Reason | Comments | + + + | Leg Pain | bilaterally. | + + + | Shoulder Pain | bilaterally. | + + + Evaluate & Treat (Routine) +--------+--------+ + + + + | Status | Reason | Specialty | Diagnoses / | Referred By | Referred To | | | | | Procedures | Contact | Contact | +--------+--------+ + + + + | Closed | | Physical | Diagnoses | Aubrey, | Jairo, | | | | Medicine and | Bilateral | DO Mingo | Roderick Dong MD | | | | Rehabilitatio | leg weakness | [address] | [address] | | | | n | | [address] | [place] | | | | | | [address] | [place] | | | | | | [place], | [address] Phone: | | | | | | [place] | [phone] | | | | | | [address] | Fax: | | | | | | Phone: | [phone] | | | | | | [phone] | | | | | | | Fax: | | | | | | | [phone] | | +--------+--------+ + + + + Encounter Details +--------+---------+ + + + | Date | Type | Department | Care Team | Description | +--------+---------+ + + + | 06/04/ | Office | [facility] | Roderick Gill | Chronic low back | | 2013 | Visit | PHYSIATRY [address] | pain (Primary Dx); | | | | [address] | [place], [place] | DDD (degenerative | | | | [place], [place] | [address] | disc disease), | | | | [address] | | lumbar; S/P lumbar | | | | [phone] | | spinal fusion; | | | | | | Lumbar | | | | | | radiculopathy/neurog | | | | | | enic claudication; | | | | | | Shoulder pain, | | | | | | bilateral | +--------+---------+ + + + Social History [...] + + + | Blood Pressure | 135/66 | 06/04/2014 9:40 AM | | | | | PDT | | + + + + + | Pulse | 86 | 06/04/2014 9:40 AM | | | | | PDT | | + + + + + | Temperature | - | - | | + + + + + | Respiratory Rate | 17 | 06/04/2014 9:40 AM | | | | | PDT | | + + + + + | Oxygen Saturation | - | - | | + + + + + | Inhaled Oxygen | - | - | | | Concentration | | | | + + + + + | Weight | 77.1 kg (170 lb) | 06/04/2014 9:40 AM | | | | | PDT | | + + + + + | Height | 172.7 cm (5' 8") | 06/04/2014 9:40 AM | | | | | PDT | | + + + + + | Body Mass Index | 25.85 | 06/04/2014 9:40 AM | | | | | PDT | | + + + + + documented in this encounter Progress Notes Roderick Gill MD - 06/04/2014 8:25 AM PDT CHIEF COMPLAINT: Chief Complaint Patient presents with Leg Pain bilaterally. Shoulder Pain bilaterally. HISTORY OF PRESENT ILLNESS: The patient is a 74 y.o. male being seen today at the request of Dr. Mingo Burgos for complaints of bilateral leg weakness that began over 3-4 months ago. He has had chronic low back issues for many years. The current symptoms began without any known incident, but he and his believe this is related to his back and having had lumb ar surgery x 5, ranging from the s to . Since the symptoms began, he has noticed that symptoms have been constant. He describes the pain as a tingling feeling to the bilateral legs. He rates the pain as severe. His symptoms worsen with walking. He walks up many time throughout the nights due to pain. His symptoms improve with nothing in particular. He does report weakness of the legs. He does report numbness to the legs as mentioned above . He does not have bowel and bladder dysfunction. He does not have saddle anesthesia. Treatments for these complaints have included 4 laminectomy surgeries in the with a abraham placed in 1989. He uses Meloxicam for pain relief. The patient also reports to have bilateral shoulder pain. He reports having rotator cuff s urgery on the right in the past. He denies significant neck pain or radicular symptoms into the upper extremities. Patient's medications, allergies, past medical, surgical, social and family histories were reviewed and updated as appropriate. PAST MEDICAL HISTORY: Past Medical History Diagnosis Date CAD (coronary artery disease) Hypertension Hyperlipidemia Chest pain Esophageal reflux Tobacco use disorder Obesity, unspecified RI (myocardial infarction) 2005 PAST SURGICAL HISTORY: Past Surgical History Procedure Date Appendectomy 1956 Lumbar lamenectomy 1979 & 1980 Lateral lumbar spin fusion 1985 Lumbar neurolysis r 1986 Internal nerve revision for pain Colonoscopy 2012 Dr. Willis Coronary artery bypass graft 2006 [place], [place]. Right rotator cuff surgery CURRENT MEDICATIONS: Current Outpatient Prescriptions Medication Sig Dispense Refill amLODIPine (NORVASC) 5 mg tablet TAKE ONE TABLET BY MOUTH EVERY DAY 30 tablet 6 aspirin 325 mg EC tablet Take 325 mg by mouth Daily. Calcium Carbonate-Vitamin D (CALCIUM + D) 600-200 MG-UNIT TABS 1 tablet by mouth daily chlorthalidone 25 mg tablet TAKE ONE TABLET BY MOUTH EVERY DAY 30 tablet 6 lisinopril (PRINIVIL,ZESTRIL) 40 MG tablet TAKE ONE TABLET BY MOUTH EVERY DAY 30 table t 6 meloxicam (MOBIC) 15 mg tablet Take 15 [...] capsule Take 20 mg by mouth Daily. simvastatin (ZOCOR) 80 mg tablet TAKE ONE TABLET BY MOUTH EVERY DAY 30 tablet 6 tamsulosin (FLOMAX) 0.4 mg CAPS Take 0.4 mg by mouth daily (after breakfast). ALLERGIES: Allergies Allergen Reactions Adhesive & Tape SOCIAL HISTORY: The patient reports that he has quit smoking. His smokeless tobacco use includes Snuff. He reports that he drinks alcohol. He reports that he does not use illicit drugs. FAMILY HISTORY: Family History Problem Relation Age of Onset Cancer Heart defect REVIEW OF SYSTEMS: GENERALLY: No fever, chills, no night sweats, no weight gain, + weight loss, no anemia, n o fatigue. EYES: No eye problems, no impaired sight, no eye glasses/contacts, no eye injury, no doubl e vision, no transient blindness. EARS, NOSE, THROAT and MOUTH: No change in sense taste/smell, + hearing difficulty, no rin ging in ears, no drainage from ears, no ear injury, no dizziness, no voice change, no diffic ulty swallowing, + snoring, no sleep apnea/CPAP, no sinus trouble, + dental work. NEUROMUSCULAR: + numbness/pain of arms, + numbness/pain of legs, + awake with numbness/sheyla n, no weakness, no muscle aching, no coordination difficulty, no change in walk, no head inj ury, no neck injury, no back injury, no pain in neck, + pain in back, no stroke, no fainting spells, no loss of consciousness, no tremor/shaking, no seizures, no headaches, no migraine s, no memory loss, no speech difficulty, no confusion, no numbness of face. PSYCHIATRIC: No depression, no difficulty sleeping, no anxiety, no bipolar disorder. CARDIOVASCULAR/PULMONARY: + heart attack, no heart murmur, no fluttering heart, no shortne ss of breath, no cough, no Tuberculosis, no chest pain, no swelling ankles, no bloody coughi ng, no asthma, no COPD/emphysema. GASTROINTESTINAL: No bowel disease, no nausea/vomiting, no rectal bleeding/hemorroids, no constipation, no fecal/stool incontinence, no liver/gallbladder disease, no abdominal pain. GENITOURINARY: No frequent urination, no painful/difficult urination, no urinary incontinen ce, no bladder problems. ENDOCRINE: No diabetes, no thyroid disease, no osteoporosis/osteopenia, no drainage from br easts. INTEGUMENTARY/SKIN: No lump in breasts, no skin disease or skin changes, no rash/itch. HEMATOLOGIC: No enlarged lymph nodes, no easy or unusual bleeding, no cancer. RHEUMATOLOGIC: + joint pain/arthritis, no rheumatoid arthritis PHYSICAL EXAMINATION: Blood pressure 135/66, pulse 86, resp. rate 17, height 1.727 m (5' 8"), weight 77.111 kg (1 70 lb). Body mass index is 25.85 kg/(m^2). GENERAL: The patient is well developed and well nourished. He does not appear uncomfortabl e when seated. HEENT: HEAD/FACE: EYES: Normocephalic and atraumatic. There are no areas of recent trauma. Normal sclerae without icterus. SKIN Limited skin exam shows no significant rashes or lesions. There are well healed surgi jarek scars in the lumbar region. CHEST: The patient is in no acute respiratory distress with unlabored respirations. HEART: There is not lower extremity edema. ABDOMEN: Soft, non-tender, non-distended, and without palpable masses. The patient is not obese. NEUROLOGIC: The patient is awake, alert, and oriented to time, place, person. He follows simple and complex commands. His speech is fluent. He comprehends speech well. He has no apparent deficits with short or snf memory. He has appropriate fund of knowledge Cranial nerves 2-12 appear grossly intact. Sensory exam does not show diminished sensation to light touch in the upper and lower extr emities. REFLEX: RIGHT LEFT PATELLAR 2+ 2+ ACHILLES 1+ 1+ PLANTAR Downgoing Downgoing MUSCULOSKELETAL There is no major palpable deformity of the spine. Straight leg raise and slump-sit are negative. Frank's maneuver and impingement testing were negative for any groin pain. There was no tenderness to palpation over the greater tr ochanters or sacral sulci. The patient localized the majority of the pain to the lower lumb ar region. Lumbar facet loading was negative. Strength testing showed 5/5 strength through out the lower extremities. The patient was able to heel and toe walk without difficulty. T here was no redness, effusion, warmth or joint line tenderness in the knees or ankles. Limit ed flexion was limited to approximately 45 degrees, extension was very limited. Shoulder examination shows decreased range of motion with external rotation, internal rotat ion and abduction. Impingement testing was positive bilaterally. There was no tenderness over the bicipital groove or over the AC joint. Speed's test was negative. Empty can test w as painful but there was no severe weakness, some apparent pain inhibition. Strength test ing, including strength testing of the infraspinatus, supraspinatus and subscapularis, in bi lateral upper extremities showed 5/5 strength with no focal weakness. Range of motion testi ng of the cervical spine was unremarkable. Spurling sign was negative. RADIOGRAPHIC REVIEW: The patient did not have any imaging to review today. New imaging was ordered. ASSESSMENT: 1. Chronic low back pain 2. DDD (degenerative disc disease), lumbar 3. S/P lumbar spinal fusion 4. Lumbar radiculopathy/neurogenic claudication 5. Shoulder pain, bilateral PLAN: 1. Initially I need to obtain imaging of the lumbar spine and x-rays were ordered today. W e may also need advanced imaging in the form of a CT myelogram to look for nerve root imping ement. 2. The pain in the shoulders seems to be most consistent with impingement syndrome/rotator cuff tendonitis. He has had a prior rotator cuff surgery on the right. I did order x-rays of the shoulders as well. 3. The patient will return for review of imaging and possible shoulder injections. If the re is no significant glenohumeral joint arthritis seen I would offer bilateral subacromial s teroid injections. Further plan for his leg symptoms will also be determined after imaging is reviewed and we will discuss that further at the time of his follow-up visit. ELECTRONICALLY EDITED AND SIGNED BY: Roderick Gill MD, 06/04/2014 Scribed by: Love Mo MA for Dr. Roderick Gill on 06/04/2014 documented in this encounter Plan of Treatment +--------+---------+ + + + | Date | Type | Specialty | Care Team | Description | +--------+---------+ + + + | 02/14/ | Office | Cardiology | Bernice Antonio, | | | 2019 | Visit | | [address] [facility] | | | | | | [place], | | | | | | [place] [address] | | | | | | [phone] | | | | | | | | +--------+---------+ + + + documented as of this encounter Results XR Shoulder Right 2 + Vw (06/04/2014 11:35 AM PDT) + + | Specimen | + + | | + + + + + | Narrative | Performed At | + + + | XR SHOULDER RIGHT 2 + VW 06/04/2014 11:35 AM HISTORY: Bilateral | [facility] | | shoulder pain. COMPARISON: None. FINDINGS: There are no acute | LAB | | osseous abnormalities. A surgical anchor is noted in the humeral | | | head. Shortening of the right clavicle is seen consistent with prior | | | acromioplasty. There are mild degenerative changes of the glenohumeral | | | joint with osteophytosis. Bone mineralization is normal. Visualized | | | chest is unremarkable. Sternotomy wires and mediastinal clips are | | | seen. Atherosclerosis is present of the aorta. IMPRESSION - No | | | acute findings. Prior acromioplasty. Mild degenerative changes | | | of the glenohumeral joint. Dictated and Signed by: Shiv Farooq | | | Electronically signed: 06/04/2014 12:53 PM | | + + + + + | Procedure Note | + + | Loi, Rad Results In - 06/04/2014 12:56 PM PDT XR SHOULDER RIGHT 2 + VW 06/04/2014 | | 11:35 AMHISTORY: Bilateral shoulder pain.COMPARISON: None.FINDINGS:There are no acute | | osseous abnormalities. A surgical anchor is noted in thehumeral head. Shortening of the | | right clavicle is seen consistent with prioracromioplasty. There are mild degenerative | | changes of the glenohumeral jointwith osteophytosis. Bone mineralization is normal. | | Visualized chest isunremarkable. Sternotomy wires and mediastinal clips are seen. | | Atherosclerosisis present of the aorta.IMPRESSION -No acute findings.Prior | | acromioplasty.Mild degenerative changes of the glenohumeral joint.Dictated and Signed | | by: Shiv Farooq MD Electronically signed: 06/04/2014 12:53 PM | |acromioplasty. There are mild degenerative changes of the glenohumeral joint | |with osteophytosis. Bone mineralization is normal. Visualized chest is | |unremarkable. Sternotomy wires and mediastinal clips are seen. Atherosclerosis | |is present of the aorta. | | | |IMPRESSION - | |No acute findings. | | | |Prior acromioplasty. | | | |Mild degenerative changes of the glenohumeral joint. | | | |Dictated and Signed by: Shiv Farooq MD | | Electronically signed: 06/04/2014 12:53 PM | + + + +---------+ + + | Performing | Address | City/State/Zipcode | Phone Number | | Organization | | | | + +---------+ + + | [facility] | | | [phone] | + +---------+ + + | [facility] | | | [phone] | + +---------+ + + XR Shoulder Left 2 + Vw (06/04/2014 11:35 AM PDT) + + | Specimen | + + | | + + + + + | Narrative | Performed At | + + + | XR SHOULDER LEFT 2 + VW 06/04/2014 11:35 AM HISTORY: Bilateral | [facility] | | Shoulder pain. COMPARISON: None. FINDINGS: There are no acute | LAB | | osseous abnormalities. Mild degenerative changes are present of the | | | acromioclavicular joint with hypertrophy. There are mild degenerative | | | changes of the glenohumeral joint with osteophytosis. Bone | | | mineralization is normal. Visualized chest is unremarkable. | | | Sternotomy wires are present along with some mediastinal clips. There | | | is atherosclerosis of the aorta. IMPRESSION - No acute findings. | | | Mild degenerative changes. Dictated and Signed by: Shiv | | | MD Oseas Electronically signed: 06/04/2014 12:51 PM | | + + + + + | Procedure Note | + + | Loi, Rad Results In - 06/04/2014 12:55 PM PDT XR SHOULDER LEFT 2 + VW 06/04/2014 11:35 | | AMHISTORY: Bilateral Shoulder pain.COMPARISON: None.FINDINGS:There are no acute osseous | | abnormalities. Mild degenerative changes are presentof the acromioclavicular joint with | | hypertrophy. There are mild degenerativechanges of the glenohumeral joint with | | osteophytosis. Bone mineralization isnormal. Visualized chest is unremarkable. | | Sternotomy wires are present alongwith some mediastinal clips. There is atherosclerosis | | of the aorta.IMPRESSION -No acute findings.Mild degenerative changes.Dictated and Signed | | by: Shiv Farooq MD Electronically signed: 06/04/2014 12:51 PM | |of the acromioclavicular joint with hypertrophy. There are mild degenerative | |changes of the glenohumeral joint with osteophytosis. Bone mineralization is | |normal. Visualized chest is unremarkable. Sternotomy wires are present along | |with some mediastinal clips. There is atherosclerosis of the aorta. | | | |IMPRESSION - | |No acute findings. | | | |Mild degenerative changes. | | | |Dictated and Signed by: Shiv Farooq MD | | Electronically signed: 06/04/2014 12:51 PM | + + + +---------+ + + | Performing | Address | City/State/Zipcode | Phone Number | | Organization | | | | + +---------+ + + | [facility] | | | [phone] | + +---------+ + + | [facility] | | | [phone] | + +---------+ + + XR Lumbar Spine 4 + Vw (06/04/2014 11:35 AM PDT) + + | Specimen | + + | | + + + + + | Narrative | Performed At | + + + | XR LUMBAR SPINE 4 + VW 06/04/2014 11:35 AM HISTORY: Worsening low | [facility] | | back pain 4 prior back surgeries. COMPARISON: None. FINDINGS: | LAB | | Posterior fusion hardware extends from L5 through S2 with superior | | | cerclage wires. The hardware remain intact. There is moderate | | | spondylosis of the lower thoracic spine and lumbar spine. Mild to | | | moderate posterior wedging is seen of L5. Vertebral body height are | | | preserved with no evidence for compression fractures. Bone | | | mineralization is decreased. Mild disc narrowing is at L4-5. There is | | | moderate disc narrowing at L5-S1. Facet joints are intact. There is | | | no evidence for spondylolysis. Visualized ribs and pelvic osseous | | | structures show no acute findings. Sternotomy wires are partially | | | imaged. There is moderate to severe atherosclerosis. IMPRESSION - | | | Posterior fusion from L5 through S2. Mild to moderate posterior | | | wedging of L5. Degenerative changes. Dictated and Signed by: | | | Shiv Farooq MD Electronically signed: 06/04/2014 12:50 PM | | + + + + + | Procedure Note | + + | Loi, Rad Results In - 06/04/2014 12:53 PM PDT XR LUMBAR SPINE 4 + VW 06/04/2014 11:35 | | AMHISTORY: Worsening low back pain 4 prior back surgeries.COMPARISON: | | None.FINDINGS:Posterior fusion hardware extends from L5 through S2 with superior | | cerclagewires. The hardware remain intact. There is moderate spondylosis of the | | lowerthoracic spine and lumbar spine. Mild to moderate posterior wedging is seen ofL5. | | Vertebral body height are preserved with no evidence for compressionfractures. Bone | | mineralization is decreased. Mild disc narrowing is at L4-5.There is moderate disc | | narrowing at L5-S1. Facet joints are intact. There is noevidence for spondylolysis. | | Visualized ribs and pelvic osseous structures showno acute findings. Sternotomy wires | | are partially imaged. There is moderate tosevere atherosclerosis.IMPRESSION -Posterior | | fusion from L5 through S2.Mild to moderate posterior wedging of L5.Degenerative | | changes.Dictated and Signed by: Shiv Farooq MD Electronically signed: 06/04/2014 12:50 | | PM | |evidence for spondylolysis. Visualized ribs and pelvic osseous structures show | |no acute findings. Sternotomy wires are partially imaged. There is moderate to | |severe atherosclerosis. | | | |IMPRESSION - | |Posterior fusion from L5 through S2. | | | |Mild to moderate posterior wedging of L5. | | | |Degenerative changes. | | | |Dictated and Signed by: Shiv Farooq MD | | Electronically signed: 06/04/2014 12:50 PM | + + + +---------+ + + | Performing | Address | City/State/Zipcode | Phone Number | | Organization | | | | + +---------+ + + | [facility] | | | [phone] | + +---------+ + + | [facility] | | | [phone] | + +---------+ + + documented in this encounter Visit Diagnoses + + | Diagnosis | + + | Chronic low back pain - Primary Lumbago | + + | DDD (degenerative disc disease), lumbar Degeneration of lumbar or lumbosacral | | intervertebral disc | + + | S/P lumbar spinal fusion Arthrodesis status | + + | Lumbar radiculopathy/neurogenic claudication Thoracic or lumbosacral neuritis or | | radiculitis, unspecified | + + | Shoulder pain, bilateral Pain in joint, shoulder region | + + documented in this encounter
--- OUTSIDE RECORDS SUMMARY | ~2020-01-10 | XMS | Encounter Summary ---
Demographics + + + | Address | [address] | | | [place] [address] | + + + | Home Phone | | + + + | Preferred Language | Unknown | + + + | Marital Status | | + + + | Mandaeism Affiliation | NON | + + + | Race | White | + + + | Ethnic Group | Not or | + + + Author + + + | Author | [facility] | + + + | Organization | [facility] | + + + | Address | Unknown | + + + | Phone | Unavailable | + + + Support + + + + + | Name | Relationship | Address | Phone | + + + + + | Selena Jimenez | ECON | [address] | | | | | [place] | | | | | [address] | | + + + + + | Ronny Rene | ECON | Unknown | | + + + + + | Char Woodard | ECON | Unknown | | + + + + + Care Team Providers + +------+ + | Care Sustainability Project Coordinator Name | Role | Phone | + +------+ + | Deondre Landis MD | PCP | | + +------+ + Encounter Details +--------+ + + + + | Date | Type | Department | Care Team | Description | +--------+ + + + + | 04/25/ | Hospital | Radiology/Imaging | | | | 2014 | Encounter | Lab at [facility] [address] | | | | | | [facility] | | | | | | [facility] | | | | | | [facility], [address], | | | | | | [address]rd Floor | | | | | | [place], [place] | | | | | | [address] | | | | | | [phone] | | | +--------+ + + + [...] + + documented as of this encounter Medications at Time of Discharge [...] + + +---------+ + + | acetaminophen 650 | 20.3 mL by feeding | 3654 mL | 1 | 04/11/20 | | | mg/20.3 mL oral | tube route every | | | 15 | 5 | | suspensionIndication | four hours for 30 | | | | | | s: pain | days. Indications: | | | | | | | Pain | | | | | + + + +---------+ + + | docusate sodium 50 | 5 mL by feeding tube | 300 mL | 1 | 04/11/20 | | | mg/5 mL oral | route two times | | | 15 | 5 | | liquidIndications: | daily for 30 days. | | | | | | constipation | Hold if > 2 bowel | | | | | | | movements daily | | | | | | | Indications: | | | | | | | CONSTIPATION | | | | | + + + +---------+ + + | enoxaparin 40 | Inject 0.4 mL under | 9.6 mL | 0 | 04/11/20 | | | mg/0.4 mL | the skin (SUBC) once | | | 15 | 5 | | subcutaneous syringe | daily in the | | | | | | | evening for 24 days. | | | | | + + + +---------+ + + | metoclopramide HCl | 0.5 tablets by | 180 | 0 | 04/11/20 | | | (REGLAN) 10 mg oral | feeding tube route | tablet | | 15 | 5 | | tabletIndications: | every six hours for | | | | | | Gastric Motility | 90 days. | | | | | | | Indications: Gastric | | | | | | | Motility | | | | | + + + +---------+ + + | | 15 mL by feeding | 450 mL | 1 | 04/11/20 | | | pyfjwikkeqqi-lzfb-ll | tube route once | | | 15 | 5 | | nerals oral | daily for 30 days. | | | | | | liquidIndications: | Indications: Vitamin | | | | | | vitamin deficiency | Deficiency | | | | | | prevention | Prevention | | | | | + + + +---------+ + + | polyethylene | Dissolve 1 capful | 527 g | 1 | 04/11/20 | | | glycol 17 gram/dose | (17 g) in 4 to 8 | | | 15 | 5 | | oral | ounces of liquid and | | | | | | powderIndications: | give by feeding | | | | | | constipation | tube route once | | | | | | | daily for 30 days. | | | | | | | Hold for more than 2 | | | | | | | bowel movements | | | | | | | daily. | | | | | + + + +---------+ + + | simethicone 40 | 0.6 mL by feeding | 72 mL | 1 | 04/11/20 | | | mg/0.6 mL oral | tube route every six | | | 15 | 5 | | drops,suspension | hours for 30 days. | | | | | + + + +---------+ + + documented as of this encounter Plan of Treatment Not on filedocumented as of this encounter Procedures + +--------+ + + + | Procedure Name | Priori | Date/Time | Associated Diagnosis | Comments | | | ty | | | | + +--------+ + + + | X-RAY ESOPHAGRAM | Routin | 04/25/2015 | Anastomotic leak | Results for this | | | e | 11:48 AM | following | procedure are in the | | | | PDT | esophagectomy | results section. | + +--------+ + + + documented in this encounter Results X-RAY ESOPHAGRAM (04/25/2015 11:48 AM PDT) + + + + + + | Component | Value | Ref Range | Performed | Pathologist | | | | | At | Signature | + + + + + + | ESOPHAGUS | EXAM: ESOPHAGUS 04/25/15 | | | | | | 11:48:00 HISTORY: | | | | | | Gastric pull-through | | | | | | with a small proximal | | | | | | anastomotic leak, follow | | | | | | up COMPARISON: 04/11/15 | | | | | | TECHNIQUE: Omnipaque-300 | | | | | | contrast was given to | | | | | | the patient to drink | | | | | | underfluoroscopic | | | | | | evaluation in the | | | | | | standing position. | | | | | | Bilateral shallow | | | | | | obliqueviews were | | | | | | obtained. Following | | | | | | this, thin barium was | | | | | | given to the patient | | | | | | umer. The procedure | | | | | | was performed by | | | | | | Toma Koch, faculty | | | | | | radiologist.Total | | | | | | fluoroscopic time was 2 | | | | | | minutes and 3 seconds. | | | | | | FINDINGS: Initial web ui software engineer | | | | | | image demonstrates a | | | | | | Mcfarlan drain at the | | | | | | thoracicinlet. The | | | | | | gastric conduit is | | | | | | nondistended. Contrast | | | | | | passed freely from the | | | | | | hypopharynx through the | | | | | | gastric | | | | | | pull-throughproximal | | | | | | anastomosis. No | | | | | | stricture was seen. The | | | | | | previously seen | | | | | | proximalanterior left | | | | | | small blind-ending leak | | | | | | at the level of the | | | | | | clavicular heads isno | | | | | | longer visualized. It | | | | | | has radiographically | | | | | | resolved. IMPRESSION: No | | | | | | anastomotic leak is | | | | | | present. Attending | | | | | | Radiologists: TOMA Ramirez | | | | | | SUMAN KOCHuthor: TOMA | | | | | | Ashley KOCH MD I have | | | | | | personally viewed this | | | | | | procedure/exam, reviewed | | | | | | this report, and | | | | | | madechanges to it where | | | | | | appropriate. | | | | | | Final/Electronically | | | | | | signed / TOMA Ramirez | | | | | | ROLAN 04/25/2015 | | | | | | 11:55 AM | | | | + + + + + + + + | Specimen | + + | | + + + +---------+ + + | Performing | Address | City/State/Zipcode | Phone Number | | Organization | | | | + +---------+ + + | [facility] | | | | [facility] | | | | + +---------+ + + documented in this encounter Visit Diagnoses + + | Diagnosis | + + | Anastomotic leak following esophagectomy Other digestive system complications | + + documented in this encounter"
--- OUTSIDE RECORDS SUMMARY | ~2020-01-10 | XMS | Encounter Summary ---
Demographics + + + | Address | [address] | | | [place] [address] | + + + | Home Phone | | + + + | Preferred Language | Unknown | + + + | Marital Status | | + + + | Presybeterian Affiliation | Unknown | + + + | Race | Unknown | + + + | Ethnic Group | Unknown | + + + Author + + + | Author | [facility] | | | and [place] | + + + | Organization | [facility] | | | and [place] | + + + | Address | Unknown | + + + | Phone | Unavailable | + + + Support + + + + + | Name | Relationship | Address | Phone | + + + + + | Selena Jimenez | ECON | [id number] | | | | | [place] [address] | | + + + + + Care Team Providers + +------+ + | Care Air Sampling And Monitoring Name | Role | Phone | + +------+ + | Mingo Burgos DO | PCP | | + +------+ + Reason for Visit + + + | Reason | Comments | + + + | Coronary Artery | Yearly follow up | | Disease | | + + + Encounter Details +--------+---------+ + + + | Date | Type | Department | Care Team | Description | +--------+---------+ + + + | 09/17/ | Office | [facility] | Paulo Antonio, | Coronary artery | | 2016 | Visit | CARDIOLOGY [address] [place] | disease involving | | | | [place], | [place], | [place] coronary | | | | [place] [address] | [place] [address] | artery of [place] | | | | [phone] | [phone] | heart without angina | | | | | | pectoris (Primary | | | | | | Dx) | +--------+---------+ + + + Social History [...] 15 | + +-------+---+ + + + | Tobacco Cessation: Counseling Given: No | + + + + +---------+ + | Alcohol Use | Drinks/Week | oz/Week | Comments | + + +---------+ + | Yes | 0 Standard drinks | 0.0 | 2-3 drinks at night | | | or equivalent | | [...] + + + | Blood Pressure | 158/60 | 09/17/2016 1:04 PM | | | | | PST | | + + + + + | Pulse | 60 | 09/17/2016 1:04 PM | | | | | PST | | + + + + + | Temperature | - | - | | + + + + + | Respiratory Rate | 16 | 09/17/2016 1:04 PM | | | | | PST | | + + + + + | Oxygen Saturation | 98% | 09/17/2016 1:04 PM | | | | | PST | | + + + + + | Inhaled Oxygen | - | - | | | Concentration | | | | + + + + + | Weight | 71.2 kg (156 lb 14.4 | 09/17/2016 1:04 PM | | | | oz) | PST | | + + + + + | Height | 172.7 cm (5' 8") | 09/17/2016 1:04 PM | | | | | PST | | + + + + + | Body Mass Index | 23.86 | 09/17/2016 1:04 PM | | | | | PST | | + + + + + documented in this encounter Patient Instructions Patient Instructions Teri Waters RN - 09/17/2016 1:56 PM PST1. Stop pravastatin. 2. Take blood pressure and pulse once in the morning and once in the evening for two weeks and record on provided log. Please mail back completed log in provided pre-stamped envelope. Follow up appointment: 1 year Provider: Pauol Antonio MD Date: Check-In Time: documented in this encounter Progress Notes Paulo Antonio MD - 09/17/2016 1:34 PM PSTFormatting of this note might be different f rom the original. PATIENT NAME: Junaid Jimenez : 1940: AGE: 76 y.o. PRIMARY CARE: Mingo Burgos DO OUTPATIENT FOLLOW UP VISIT Date of Service: 09/17/2016 HISTORY OF PRESENT ILLNESS: Junaid Jimenez is a 76 y.o. male with a history of coronary artery disease, post CABG x 2 in 12/2007, hypertension, hyperlipidemia, gastroesophageal reflux disease and remote smoking. Patient is being seen today for a treatment of his CAD and hypertension. He was last seen 09/18/2015 at which time he was to check his blood pressure for 2 weeks an d follow-up in 1 year. Since that time, patient continues to do well from cardiac standpoin t. Patient denies any cardiac symptoms today. Patient is physically active by working around his new house. There is no chest pain or chest discomfort both at rest and on exertion. Ophelia ch denies breathlessness. There is no palpitations, dizziness or lightheadedness. There is no ankle or leg swelling. Patient can sleep on one pillow at night without difficulty breat jodie. MEDICAL, SURGICAL, AND PERSONAL HISTORY Past Medical, [...] Dispense Refill amLODIPine (NORVASC) 5 mg tablet Take 5 mg by mouth Daily. aspirin 81 mg chewable tablet Take one tablet daily atorvaSTATin (LIPITOR) 80 MG tablet Take 80 mg by mouth nightly. lisinopril (PRINIVIL, ZESTRIL) 20 mg tablet Take 20 mg by mouth Daily. meloxicam (MOBIC) 15 mg tablet Take 15 mg by mouth Daily. metoprolol tartrate (LOPRESSOR) 50 mg tablet TAKE ONE TABLET BY MOUTH TWICE DAILY 60 ta blet 6 nitroglycerin (NITROSTAT) 0.4 mg SL tablet One tablet under tongue as needed for chest pain. May repeat every 5 minutes up to 3 times. If no relief after 3rd tablet, call 911. 25 tablet 11 omeprazole (PRILOSEC) 40 MG capsule Take by mouth. Take one capsule daily pravastatin (PRAVACHOL) 40 MG tablet Take one tablet daily No current facility-administered medications for this visit. ALLERGIES Allergies Allergen Reactions Adhesive & Tape Rash ROS Review of Systems Constitutional: Positive for malaise/fatigue. Negative for fever, chills, weight loss and d iaphoresis. HENT: Negative for congestion, hearing loss, nosebleeds and tinnitus. Dental Problems = No Eyes: Negative for blurred vision and double vision. Respiratory: Negative for shortness of breath. Cardiovascular: Negative for chest pain, palpitations and leg swelling. Gastrointestinal: Negative for nausea, vomiting, diarrhea, constipation and blood in stool. Genitourinary: Negative for dysuria, urgency, frequency and hematuria. Musculoskeletal: Positive for myalgias, back pain and joint pain (knees bilateral ). Negati ve for falls and neck pain. Gait Problems = No Skin: Negative for itching and rash. Neurological: Negative for dizziness, tingling, tremors, speech change, seizures, loss of c onsciousness and weakness. Lightheaded = No Endo/Heme/Allergies: Does not bruise/bleed easily. Psychiatric/Behavioral: Negative for memory loss. The patient is not nervous/anxious and do es not have insomnia. OBJECTIVE: PHYSICAL EXAM BP 158/60 mmHg | Pulse 60 | Resp 16 | Ht 1.727 m (5' 8") | Wt 71.169 kg (156 lb 14.4 oz) | BMI 23.86 kg/m2 | SpO2 98% Physical Exam Constitutional: He is oriented to person, place, and time. He appears well-developed and we ll-nourished. No distress. Elderly, male individual arrives alone, without acute distress. Neck: Normal carotid pulses, no hepatojugular reflux and no JVD present. Carotid bruit is n ot present. Cardiovascular: Normal rate, regular rhythm, S1 normal, S2 normal, intact distal pulses and normal pulses. PMI is not displaced. Exam reveals no gallop, no S3, no S4 and no friction rub. Murmur heard. Holosystolic murmur is present with a grade of 2/6 Over the right aortic area Pulses: Carotid pulses are 2+ on the right side, and 2+ on the left side. Dorsalis pedis pulses are 2+ on the right side, and 2+ on the left side. Posterior tibial pulses are 2+ on the right side, and 2+ on the left side. Pulmonary/Chest: Effort normal and breath sounds normal. No accessory muscle usage. No resp iratory distress. He has no wheezes. He has no rhonchi. He has no rales. Abdominal: Soft. Normal appearance, normal aorta and bowel sounds are normal. He exhibits n o abdominal bruit. There is no hepatosplenomegaly. There is no tenderness. Musculoskeletal: He exhibits no edema. Neurological: He is alert and oriented to person, place, and time. Gait normal. Skin: Skin is warm and dry. No cyanosis. Nails show no clubbing. Psychiatric: He has a normal mood and affect. His mood appears not anxious. He does not exh ibit a depressed mood. ECG: Sinus bradycardia, lateral infarct, age undetermined. LAB RESULTS reviewed during visit today primarily from [facility]: LIPID Lab Results Component Value Date TRIG 39 06/11/2013 HDL 74.7 06/11/2013 LDL 93 06/11/2013 CHOLHDL 1.9 07/01/2014 LDLEX 49 07/01/2015 HDLEX 93.3 07/01/2015 TRIGEX 43 07/01/2015 CHOLEX 151 07/01/2015 CHEMISTRY Lab Results Component Value Date GLU 96 06/11/2013 GLUEX 93 07/01/2015 NA 133 06/11/2013 NAEX 135 07/01/2015 K 4.2 06/11/2013 KEX 4.8 07/01/2015 CL 97 06/11/2013 CLEX 98 07/01/2015 CO2 29 06/11/2013 CO2EX 24 07/01/2015 CALCIUM 10.8 06/11/2013 ALKPHOS 73 06/11/2013 AST 17 06/11/2013 ASTEX 21 07/01/2015 ALT 12 06/11/2013 ALTEX 16 07/01/2015 BILITOT 0.4 06/11/2013 BUN 12 06/11/2013 EGFREX 66 07/01/2015 CREEX 1.09 07/01/2015 HEMATOLOGY Lab Results Component Value Date WBCEX 8.3 07/01/2014 HGBEX 13.9 07/01/2014 HCTEX 39.9* 07/01/2014 PLTEX 236 07/01/2015 Above data and testing is reviewed this visit; testing below is historical data unless othe rwise specified. ASSESSMENT: 1.Coronary artery disease: A.Left heart catheterization on 01/03/08 revealed severe two-vessel disease with a complex high-grade 90% stenosis of the proximal LAD, 100% stenosis to the pr oximal RCA. Normal LV size and systolic function. LVEF of 55%. B.CABG x 2 on 01/16/[address] Yonas Cyr. ALFONSO to the LAD and S VG to the posterior descending coronary artery. C.Today, patient continues to do well from cardiac standpoint. He is asymptomatic and physically active working around his new house. There is no signs and symptoms of overt congestive heart failure. He is in a class [employer] [place] [employer] n functional class. There is no fluid retention on physical examination. 2. Hypertension: A.Today his blood pressure is elevated. 3.Hyperlipidemia: A.He is on atorvastatin 80 mg a day.No recent lipid profile [facility] e 07/02/2015. Record shows that he is also on Pravachol. I think that it is most likely a typo. 4.Erectile dysfunction A. Today, patient mentioned that he has a difficulty to maintain hi s erection. Not addressed. 5.Esophageal cancer A. Patient underwent a esophagectomy at [facility] on 03/27/15. He was to ld during the 6 month follow-up that he is cancer free PLAN: 1. Check blood pressure x 2 weeks to rule out white coat hypertension. 2. Stop taking pravastatin if patient is taking it. 3. Check CMP, TSH, lipid and CBC. 4. I recommend a therapeutic lifestyle change including walking 30 minutes a day and choosi ng healthy choices of diet. 5. I recommend flu, pneumonia and shingles vaccine. 6. Follow-up in one year or sooner with concerns. I Char Hermosillo am acting as a scribe on behalf of, and in the presence of Paulo hylton MD. I have reviewed and edited this note. Char Hermosillo, Train Crew Member 09/17/2016 I, Paulo Antonio MD, personally performed the services described in this documentation, as scribed in my presence and it is both accurate and complete. Char Hermosillo, Med Ass t 09/17/2016 13:38 Electronically signed by: Paulo Antonio MD [facility] 09/17/2016 Portions of this chart may have been created with [employer] voice recognition software. Occasi onal wrong-word or sound-alike substitutions may have occurred due to the inherent kurtz itations of voice recognition software. Please read the chart carefully and recognize, using context, where these substitutions have occurred documented in this encounter Plan of Treatment +--------+---------+ + + + | Date | Type | Specialty | Care Team | Description | +--------+---------+ + + + | 02/14/ | Office | Cardiology | Paulo Antonio, | | | 2019 | Visit | | [address] | | | | | | [place], | | | | | | [place] [address] | | | | | | [phone] | | | | | | | | +--------+---------+ + + + documented as of this encounter Procedures + +--------+ + + + | Procedure Name | Priori | Date/Time | Associated Diagnosis | Comments | | | ty | | | | + +--------+ + + + | LIPID PANEL | Routin | 09/17/2016 | Coronary artery | Results for this | | | e | 2:12 PM | disease involving | procedure are in the | | | | PST | [place] coronary | results section. | | | | | artery of [place] | | | | | | heart without angina | | | | | | pectoris | | + +--------+ + + + | CBC WITH | Routin | 09/17/2016 | Coronary artery | Results for this | | DIFFERENTIAL | e | 2:12 PM | disease involving | procedure are in the | | | | PST | [place] coronary | results section. | | | | | artery of [place] | | | | | | heart without angina | | | | | | pectoris | | + +--------+ + + + | TSH | Routin | 09/17/2016 | Coronary artery | Results for this | | | e | 2:12 PM | disease involving | procedure are in the | | | | PST | [place] coronary | results section. | | | | | artery of [place] | | | | | | heart without angina | | | | | | pectoris | | + +--------+ + + + | COMPREHENSIVE | Routin | 09/17/2016 | Coronary artery | Results for this | | METABOLIC PANEL | e | 2:12 PM | disease involving | procedure are in the | | | | PST | [place] coronary | results section. | | | | | artery of [place] | | | | | | heart without angina | | | | | | pectoris | | + +--------+ + + + | ECG 12 LEAD | Routin | 09/17/2016 | Coronary artery | Results for this | | | e | 1:25 PM | disease involving | procedure are in the | | | | PST | [place] coronary | results section. | | | | | artery of [place] | | | | | | heart without angina | | | | | | pectoris | | + +--------+ + + + documented in this encounter Results Lipid Panel (09/17/2016 2:12 PM PST) + + + + + + | Component | Value | Ref Range | Performed | Pathologist | | | | | At | Signature | + + + + + + | Triglycerid | 51 | 35 - 160 mg/dL | [facility] | | | es | | | [facility] | | | | | | [facility] | | | | | [facility] - | | | | | | LABORATORY | | + + + + + + | Cholesterol | 189 | 150 - 200 mg/dL | [facility] | | | | | | [facility] | | | | | | [facility] | | | | | | C[facility] - | | | | | | LABORATORY | | + + + + + + | HDL | 124 (H)Comment: New | 28 - 83 mg/dL | [facility] | | | | HDL Reference Range as | | [facility] | | | | of May 29, 2015 | | MEDICAL | | | | Values may be 10-20% | | CENTER - | | | | lower with new, | | LABORATORY | | | | standardized method. | | | | + + + + + + | Chol/HDL | 1.5 | | [facility] | | | Ratio | | | [facility] | | | | | | MEDICAL | | | | | | CENTER - | | | | | | LABORATORY | | + + + + + + | LDL, | 55 | <=130 mg/dL | [facility] | | | Calculated | | | [facility] | | | | | | [facility] | | | | | | CENTER - | | | | | | LABORATORY | | + + + + + + + + | Specimen | + + | Blood | + + + + + + + | Performing | Address | City/State/Zipcode | Phone Number | | Organization | | | | + + + + + | [facility] | [address] | [place] | [phone] | | [facility] | | [address] | | | - LABORATORY | | | | + + + + + TSH (09/17/2016 2:12 PM PST) + + + + + + | Component | Value | Ref Range | Performed | Pathologist | | | | | At | Signature | + + + + + + | TSH | 0.90Comment: All TSH | 0.34 - 5.60 | [facility] | | | | samples are screened | uIU/mL | [facility] | | | | using a 2nd Generation | | MEDICAL | | | | test, and are reflexed | | CENTER - | | | | to a 3rd Generation test | | LABORATORY | | | | if indicated. | | | | + + + + + + + + | Specimen | + + | Blood | + + + + + + + | Performing | Address | City/State/Zipcode | Phone Number | | Organization | | | | + + + + + | [facility] | [address] | [place] | [phone] | | [facility] | | [address] | | | - LABORATORY | | | | + + + + + Comprehensive Metabolic Panel (09/17/2016 2:12 PM PST) + + + + + + | Component | Value | Ref Range | Performed | Pathologist | | | | | At | Signature | + + + + + + | Na | 137 | 136 - 149 | [facility] | | | | | mmol/L | [facility] | | | | | | MEDICAL | | | | | | CENTER - | | | | | | LABORATORY | | + + + + + + | K | 3.9 | 3.5 - 5.1 | [facility] | | | | | mmol/L | [facility] | | | | | | MEDICAL | | | | | | CENTER - | | | | | | LABORATORY | | + + + + + + | Cl | 101 | 98 - 109 mmol/L | [facility] | | | | | | [facility] | | | | | | [facility]ICAL | | | | | | CENTER - | | | | | | LABORATORY | | + + + + + + | CO2 | 27 | 24 - 31 mmol/L | [facility] | | | | | | [facility] | | | | | | [facility] | | | | | | CENTER - | | | | | | LABORATORY | | + + + + + + | Anion Gap | 9 | 3 - 16 mmol/L | [facility] | | | | | | [facility] | | | | | | [facility] | | | | | | CENTER - | | | | | | LABORATORY | | + + + + + + | Glucose | 108 | 70 - 109 mg/dL | [facility] | | | | | | [facility] | | | | | | [facility] | | | | | | CENTER - | | | | | | LABORATORY | | + + + + + + | BUN | 16 | 7 - 18 mg/dL | [facility] | | | | | | [facility] | | | | | | [facility] | | | | | | CENTER - | | | | | | LABORATORY | | + + + + + + | Creatinine | 1.14 | 0.60 - 1.30 | [facility] | | | | | mg/dL | [facility] | | | | | | MEDICAL | | | | | | CENTER - | | | | | | LABORATORY | | + + + + + + | eGFR if not | >60Comment: GLOMERULAR | >=60 | [facility] | | | | FILTRATION | mL/min/1.73m2 | [facility] | | | CAMBODIAN | RATE,ESTIMATED | | MEDICAL | | | | mL/min/1.08c0Hohk than | | CENTER - | | | | 60 Chronic kidney | | LABORATORY | | | | disease,if found over a | | | | | | 3-month period.Less than | | | | | | 15 Kidney failureFor | | | | | | | | | | | | Americans,multiply the | | | | | | calculated GFR by 1.21. | | | | | | | | | | + + + + + + | Calcium | 9.1 | 8.3 - 10.5 | [facility] | | | | | mg/dL | [facility] | | | | | | MEDICAL | | | | | | CENTER - | | | | | | LABORATORY | | + + + + + + | Albumin | 3.4 | 3.2 - 5.0 g/dL | [facility] | | | | | | [facility] | | [facility] | | | [facility]ICAL | | | | | | CENTER - | | | | | | LABORATORY | | + + + + + + | Bilirubin | 1.0 | 0.1 - 1.5 mg/dL | [facility] | | | Total | | | [facility] | | | | | | MEDICAL | | | | | | CENTER - | | | | | | LABORATORY | | + + + + + + | Total | 6.7 | 6.0 - 7.8 g/dL | [facility] | | | Protein | | | [facility] | | | | | | MEDICAL | | | | | | CENTER - | | | | | | LABORATORY | | + + + + + + | AST | 34 | 10 - 42 U/L | [facility] | | | | | | [facility] | | | | | | [facility]ICAL | | | | | | CENTER - | | | | | | LABORATORY | | + + + + + + | ALT | 14 | 6 - 45 U/L | [facility] | | | | | | [facility] | | | | | | [facility]ICAL | | | | | | CENTER - | | | | | | LABORATORY | | + + + + + + | Alkaline | 90 | 40 - 110 U/L | [facility] | | | Phosphatase | | | [facility] | | | | | | MEDICAL | | | | | | CENTER - | | | | | | LABORATORY | | + + + + + + | Globulin | 3.3 | 2.1 - 3.8 g/dL | [facility] | | | | | | [facility] | | | | | | [facility] | | | | | | CENTER - | | | | | | LABORATORY | | + + + + + + | Albumin/Ashley | 1.0 | 0.8 - 2.0 | [facility] | | | bulin Ratio | | | [facility] | | | | | | MEDICAL | | | | | | CENTER - | | | | | | LABORATORY | | + + + + + + | BUN/Creatin | 14.0 | | [facility] | | | ine Ratio | | | [facility] | | | | | | MEDICAL | | | | | | CENTER - | | | | | | LABORATORY | | + + + + + + + + | Specimen | + + | Blood | + + + + + + + | Performing | Address | City/State/Zipcode | Phone Number | | Organization | | | | + + + + + | [facility] | [address] | [place] | [phone] | | [facility] | | [address] | | | - LABORATORY | | | | + + + + + CBC with Differential (09/17/2016 2:12 PM PST) + + + + + + | Component | Value | Ref Range | Performed | Pathologist | | | | | At | Signature | + + + + + + | WBC | 7.4 | 4.0 - 11.0 K/uL | [facility] | | | | | | [facility] | | [facility] | | [facility] | | | | | | [facility] - | | | | | | LABORATORY | | + + + + + + | RBC | 4.41 | 4.30 - 5.70 | [facility] | | | | | M/uL | [facility] | | | | | | [facility] | | | | | | [facility] - | | | | | | LABORATORY | | + + + + + + | Hemoglobin | 13.0 (L) | 13.5 - 18.0 | [facility] | | | | | g/dL | [facility] | | | | | | [facility] | | | | | | CENTER - | | | | | | LABORATORY | | + + + + + + | Hematocrit | 39.2 (L) | 40.0 - 51.0 % | [facility] | | | | | | [facility] | | | | | | [facility] | | | | | | C[facility] - | | | | | | LABORATORY | | + + + + + + | MCV | 89.0 | 83.0 - 101.0 fL | [facility] | | | | | | [facility] | | | | | | [facility] | | | | | | C[facility] - | | | | | | LABORATORY | | + + + + + + | MCH | 29.4 | 28.0 - 35.0 pg | [facility] | | | | | | [facility] | | | | | | [facility] | | | | | | [facility] - | | | | | | LABORATORY | | + + + + + + | MCHC | 33.1 | 32.0 - 36.0 | [facility] | | | | | g/dL | [facility] | | | | | | [facility] | | | | | | CENTER - | | | | | | LABORATORY | | + + + + + + | RDW-CV | 15.7 (H) | <15.0 % | [facility] | | | | | | [facility] | | | | | | [facility] | | | | | | CENTER - | | | | | | LABORATORY | | + + + + + + | Platelet | 193 | 140 - 440 K/uL | [facility] | | | Count | | | [facility] | | | | | | [facility] | | | | | | CENTER - | | | | | | LABORATORY | | + + + + + + | MPV | 9.6 | fL | [facility] | | | | | | [facility] | | | | | | [facility] | | | | | | C[facility] - | | | | | | LABORATORY | | + + + + + + | % | 63.2 | 45.0 - 82.0 % | [facility] | | | Neutrophils | | | [facility] | | | | | | [facility]ICAL | | | | | | CENTER - | | | | | | LABORATORY | | + + + + + + | % | 19.9 (L) | 20.0 - 45.0 % | [facility] | | | Lymphocytes | | | [facility] | | | | | | [facility] | | | | | | CENTER - | | | | | | LABORATORY | | + + + + + + | % Monocytes | 12.7 (H) | 4.0 - 12.0 % | [facility] | | | | | | [facility] | | | | | | [facility] | | | | | | CENTER - | | | | | | LABORATORY | | + + + + + + | % | 2.9 | 0.0 - 5.0 % | [facility] | | | Eosinophils | | | [facility] | | | | | | [facility] | | | | | | CENTER - | | | | | | LABORATORY | | + + + + + + | % Basophils | 1.3 (H) | 0.0 - 1.0 % | [facility] | | | | | | [facility] | | | | | | [facility] | | | | | | CENTER - | | | | | | LABORATORY | | + + + + + + | Absolute | 4.70 | 1.80 - 8.50 | [facility] | | | Neutrophils | | K/uL | [facility] | | | | | | [facility] | | | | | | CENTER - | | | | | | LABORATORY | | + + + + + + | Absolute | 1.50 | 0.60 - 3.20 | [facility] | | | Lymphocytes | | K/uL | [facility] | | | | | | [facility] | | | | | | CENTER - | | | | | | LABORATORY | | + + + + + + | Absolute | 0.90 | 0.00 - 1.00 | [facility] | | | Monocytes | | K/uL | [facility] | | | | | | [facility] | | | | | | CENTER - | | | | | | LABORATORY | | + + + + + + | Absolute | 0.20 | 0.00 - 0.40 | [facility] | | | Eosinophils | | K/uL | [facility] | | | | | | [facility] | | | | | | CENTER - | | | | | | LABORATORY | | + + + + + + | Absolute | 0.10 | 0.00 - 0.10 | [facility] | | | Basophils | | K/uL | [facility] | | | | | | [facility] | | | | | | CENTER - | | | | | | LABORATORY | | + + + + + + + + | Specimen | + + | Blood | + + + + + + + | Performing | Address | City/State/Zipcode | Phone Number | | Organization | | | | + + + + + | [facility] | [address] | [place] | [phone] | | [facility] | | [address] | | | - LABORATORY | | | | + + + + + ECG 12 lead (09/17/2016 1:25 PM PST) + + + + + + | Component | Value | Ref Range | Performed | Pathologist | | | | | At | Signature | + + + + + + | VENTRICULAR | 54 | BPM | [facility] | | | RATE EKG | | | | | + + + + + + | ATRIAL RATE | 54 | BPM | [facility] | | + + + + + + | P-R | 132 | ms | [facility] | | | INTERVAL | | | | | + + + + + + | QRS | 84 | ms | [facility] | | | DURATION | | | | | + + + + + + | Q-T | 446 | ms | [facility] | | | INTERVAL | | | | | + + + + + + | Q-T | 422 | ms | [facility] | | | INTERVAL | | | | | | (CORRECTED) | | | | | + + + + + + | P WAVE AXIS | 117 | degrees | [facility] | | + + + + + + | QRS AXIS | 165 | degrees | [facility] | | + + + + + + | T AXIS | 168 | degrees | [facility] | | + + + + + + | INTERPRETAT | Sinus | | [facility] | | | ION TEXT | bradycardiaLateral | | | | | | infarct , age | | | | | | undeterminedInferior | | | | | | infarct , age | | | | | | undeterminedAbnormal | | | | | | ECGWhen compared with | | | | | | ECG of 18-SEP-2015 | | | | | | 13:13,QRS axis shifted | | | | | | rightLateral infarct is | | | | | | now presentInferior | | | | | | infarct is now presentT | | | | | | wave inversion now | | | | | | evident in Lateral | | | | | | leadsConfirmed by | | | | | | ENOCH DUNCAN, PAULO | | | | | | ([id number]) on 09/21/2016 | | | | | | 4:21:38 PM | | | | + + + + + + + + | Specimen | + + | | + + + + + | Narrative | Performed At | + + + | | | + + + + +---------+ + + | Performing | Address | City/State/Zipcode | Phone Number | | Organization | | | | + +---------+ + + | [facility] | | | | + +---------+ + + documented in this encounter Visit Diagnoses + + | Diagnosis | + + | Coronary artery disease involving [place] coronary artery of [place] heart without | | angina pectoris - Primary | + + documented in this encounter
--- OUTSIDE RECORDS SUMMARY | ~2020-01-10 | XMS | Encounter Summary ---
Demographics + + + | Address | [address] | | | [place] [address] | + + + | Home Phone | | + + + | Preferred Language | Unknown | + + + | Marital Status | | + + + | Restoration Affiliation | Unknown | + + + | Race | Unknown | + + + | Ethnic Group | Unknown | + + + Author + + + | Author | [facility] | | | and [place] | + + + | Organization | [facility] | | | and [place] | + + + | Address | Unknown | + + + | Phone | Unavailable | + + + Support + + + + + | Name | Relationship | Address | Phone | + + + + + | Selena Jimenez | ECON | [id number] | | | | | [place] [address] | | + + + + + Care Team Providers + +------+ + | Care Wood Veneer Taper Name | Role | Phone | + +------+ + | Mingo Burgos DO | PCP | | + +------+ + Encounter Details +--------+ + + + + | Date | Type | Department | Care Team | Description | +--------+ + + + + | 07/17/ | Abstract | [facility] | Bernice Antonio, | | | 2012 | | CARDIOLOGY [address] | | | | | [place], | [place], | | | | | [place] [address] | [place] [address] | | | | | [phone] | [phone] | | | | | | | | +--------+ + + + + Social History + +-------+ +--------+------+ | Tobacco Use | Types | Packs/Day | Years | Date | | | | | Used | | + +-------+ +--------+------+ | Former Smoker | | | | | + +-------+ +--------+------+ + + | Comments: quit smoking in 2005 | + + + + +---------+ + [...] + + + | Blood Pressure | 164/76 | 12/08/2011 9:59 AM | | | | | PDT | | + + + + + | Pulse | 60 | 12/08/2011 9:59 AM | | | | | PDT | | + + + + + | Temperature | - | - | | + + + + + | Respiratory Rate | 18 | 12/08/2011 9:59 AM | | | | | PDT | | + + + + + | Oxygen Saturation | - | - | | + + + + + | Inhaled Oxygen | - | - | | | Concentration | | | | + + + + + | Weight | 90.7 kg (200 lb) | 12/08/2011 9:59 AM | | | | | PDT | | + + + + + | Height | 180.3 cm (5' 11") | 12/08/2011 9:59 AM | | | | | PDT | | + + + + + | Body Mass Index | 27.89 | 12/08/2011 9:59 AM | | | | | PDT | | + + + + + documented in this encounter Plan of Treatment +--------+---------+ + + + | Date | Type | Specialty | Care Team | Description | +--------+---------+ + + + | 02/14/ | Office | Cardiology | Bernice Antonio, | | | 2019 | Visit | | MD Liliana Hernandez | | | | | | [place], | | | | | | [place] [address] | | | | | | [phone] | | | | | | | | +--------+---------+ + + + documented as of this encounter Visit Diagnoses Not on filedocumented in this encounter
--- OUTSIDE RECORDS SUMMARY | ~2020-01-10 | XMS | Encounter Summary ---
Demographics + + + | Address | [address] | | | [place] [address] | + + + | Home Phone | | + + + | Preferred Language | Unknown | + + + | Marital Status | | + + + | Mu-Ism Affiliation | NON | + + + | Race | White | + + + | Ethnic Group | Not or | + + + Author + + + | Author | [facility] | + + + | Organization | [facility] | + + + | Address | Unknown | + + + | Phone | Unavailable | + + + Support + + + + + | Name | Relationship | Address | Phone | + + + + + | Selena Jimenez | ECON | [address] | | | | | [place] | | | | | [address] | | + + + + + | Ronny Rene | ECON | Unknown | | + + + + + | Char Woodard | ECON | Unknown | | + + + + + Care Team Providers + +------+ + | Care Manufacturing Recruiter Name | Role | Phone | + +------+ + | Deondre Landis MD | PCP | | + +------+ + Reason for Visit + + + | Reason | Comments | + + + | Medication Question | Metronidazole | + + + Encounter Details +--------+ + + + + | Date | Type | Department | Care Team | Description | +--------+ + + + + | 09/23/ | Telephone | Digestive Health | Char Castillo, | Medication Question | | 2018 | | Center at [facility] [address] | MD [address] | (Metronidazole) | | | | [address] [facility] | [place], [place] | | | | | for Health and | [address] | | | | | [facility], [facility] | [phone] | | | | | [place], [place] | | | | | | [address] | | | | | | [phone] | | | +--------+ + + + [...]
--- OUTSIDE RECORDS SUMMARY | ~2020-01-10 | XMS | Encounter Summary ---
Demographics + + + | Address | [address] | | | [place] [address] | + + + | Home Phone | | + + + | Preferred Language | Unknown | + + + | Marital Status | | + + + | Yazdanism Affiliation | NON | + + + | Race | White | + + + | Ethnic Group | Not or | + + + Author + + + | Author | [facility] | + + + | Organization | [facility] | + + + | Address | Unknown | + + + | Phone | Unavailable | + + + Support + + + + + | Name | Relationship | Address | Phone | + + + + + | Selena Jimenez | ECON | [address] | | | | | [place] | | | | | [address] | | + + + + + | Ronny Rene | ECON | Unknown | | + + + + + | Char Woodard | ECON | Unknown | | + + + + + Care Team Providers + +------+ + | Care Cork Pressing Machine Operator Name | Role | Phone | + +------+ + | Deondre Landis MD | PCP | | + +------+ + Reason for Referral Consultation (Urgent) +--------+--------+ + + + + | Status | Reason | Specialty | Diagnoses / | Referred By | Referred To | | | | | Procedures | Contact | Contact | +--------+--------+ + + + + | Closed | | Surgery | Diagnoses | Enestvedt, | Raffy, | | | | | Esophageal | Ruibn George, | MD Vijay | | | | | adenocarcino | [address] | | | | | sly ([facility]) | [address] | [address] | | | | | Procedures | Latesha Soliz | [place], | | | | | CONSULT TO | [place], [place] | [place] | | | | | SURGERY - | [address] | [address] | | | | | GENERAL | Phone: | Phone: | | | | | | [phone] | [phone] | | | | | | Fax: | Fax: | | | | | | [phone] | [phone] | +--------+--------+ + + + + Encounter Details +--------+ + + + + | Date | Type | Department | Care Team | Description | +--------+ + + + + | 01/31/ | Resource Forester | Digestive Health | Rubin Lorenzo | Esophageal | | 2015 | | Center at [facility] [address] | MD Doris [address] [facility] | adenocarcinoma (HCC) | | | | [facility] | [address] | (Primary Dx) | | | | for Health and | [place], [place] | | | | | [facility], [facility] 2 | [address] | | | | | [place], [place] | [phone] | | | | | [address] | | | | | | [phone] | | | +--------+ + + + [...]
--- OUTSIDE RECORDS SUMMARY | ~2020-01-10 | XMS | Encounter Summary ---
Demographics + + + | Address | [address] | | | [place] [address] | + + + | Home Phone [...] + + + | Author | [facility] | + + + | Organization | [facility] | + + + | Address | Unknown | + + + | Phone | Unavailable | + + + Support + + + + + | Name | Relationship | Address | Phone | + + + + + | Selena Jimenez | ECON | [address] | | | | | [place] | | | | | [address] | | + + + + + | Ronny Rene | ECON | Unknown | | + + + + + | Char Woodard | ECON | Unknown | | + + + + + Care Team Providers + +------+ + | Care Diecast Machine Operator Name | Role | Phone | + +------+ + | Deondre Landis MD | PCP | | + +------+ + Reason for Visit + + + | Reason | Comments | + + + | Radiology Results | | + + + Encounter Details +--------+ + + + + | Date | Type | Department | Care Team | Description | +--------+ + + + + | 04/21/ | Telephone | Digestive Health | Vijay Akbar MD | Radiology Results | | 2017 | | Center [place] [address] [address] | [address] | | | | | [facility] | [facility] | | | | | [facility] and | [place] [address] | | | | | [place] [address] | [phone] | | | | | [place], [place] | | | | | | [address] | | | | | | [phone] | | | +--------+ + + + [...]
--- OUTSIDE RECORDS SUMMARY | ~2020-01-10 | XMS | Encounter Summary ---
Demographics + + + | Address | [address] | | | [place] [address] | + + + | Home Phone | | + + + | Preferred Language | Unknown | + + + | Marital Status | | + + + | Jew Affiliation | NON | + + + | Race | White | + + + | Ethnic Group | Not or | + + + Author + + + | Author | [facility] | + + + | Organization | [facility] | + + + | Address | Unknown | + + + | Phone | Unavailable | + + + Support + + + + + | Name | Relationship | Address | Phone | + + + + + | Selena Jimenez | ECON | [address] | | | | | [place] | | | | | [address] | | + + + + + | Ronny Rene | ECON | Unknown | | + + + + + | Char Woodard | ECON | Unknown | | + + + + + Care Team Providers + +------+ + | Care Fast Food Services Manager Name | Role | Phone | + +------+ + | David Ferrera MD | PCP | | + +------+ + Encounter Details +--------+ + + + + | Date | Type | Department | Care Team | Description | +--------+ + + + + | 01/25/ | Hospital | Radiology/Imaging | Glenn Siegel MD | | | 2019 | Encounter | Lab at [facility] [address] | [address] [facility] | | | | | [facility] | [facility] | | | | | [facility] and | [place], [place] | | | | | [place] [address], | [address] | | | | | [address] [place] [address] | [phone] | | | | | [place], [place] | | | | | | [address] | | | | | | [phone] | | | +--------+ + + + [...] + +-------+---+---+ + + | Comments: suny rico pure mint leaves snuff (nicotine free) | [...] + +--------+ + + + | X-RAY SHOULDER 3+ | Routin | 01/25/2019 | Shoulder pain, | Results for this | | VIEWS RIGHT | e | 12:35 PM | unspecified | procedure are in the | | | | PDT | chronicity, | results section. | | | | | unspecified | | | | | | laterality | | + +--------+ + + + documented in this encounter Results X-RAY SHOULDER 3+ VIEWS RIGHT (01/25/2019 12:35 PM PDT) + + | Specimen | + + | | + + + + + | Narrative | Performed At | + + + | EXAM: SHOULDER 3 VIEWS RIGHT HISTORY: humerus fracture | [facility] | | COMPARISON: 01/16/2019 FINDINGS: Reidentified is a comminuted, | RADIOLOGY VOICE | | displaced, mildly overriding fracture of the proximal humerus. | RECOGNITION 2 | | Alignment is not significantly changed and early healing has not yet | | | begun. The glenohumeral joint is aligned. There is unchanged widening | | | of the acromioclavicular joint, favored to be related to remote | | | resection of the lateral clavicle. 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 Suture anchor projecting over the humeral head | | | is compatible with prior rotator cuff repair. There is moderate soft | | | tissue swelling about the fracture. IMPRESSION: | | | Reidentification of a comminuted, displaced fracture of the proximal | | | humerus, without significant change in alignment. I have | | | personally reviewed the images and, if necessary, edited the report. I | | | agree with the report as now presented. Final signature: Mau Velazquez | | | MD Terry 01/25/2019 12:58 PM Preliminary: Sammy Freedman MD | | | Dictation initiated: Sammy Freedman MD 01/25/2019 12:39 PM | | + + + + + | Procedure Note | + + | Service Account, Xormis In Interface - 01/25/2019 12:59 PM PDT EXAM: SHOULDER 3 | | VIEWS RIGHT HISTORY: humerus fracture COMPARISON: 01/16/2019 FINDINGS: Reidentified is a | | comminuted, displaced, mildly overriding fracture of the proximal humerus. Alignment is | | not significantly changed and early healing has not yet begun. The glenohumeral joint is | | aligned. There is unchanged widening of the acromioclavicular joint, favored to be | | related to remote resection of the lateral clavicle. Amorphous calcification is again | | noted in the distribution of the supraspinatus tendon compatible with calcific | | tendinopathy. Suture anchor projecting over the humeral head is compatible with prior | | rotator cuff repair. There is moderate soft tissue swelling about the fracture. | | IMPRESSION: Reidentification of a comminuted, displaced fracture of the proximal | | humerus, without significant change in alignment. I have personally reviewed the images | | and, if necessary, edited the report. I agree with the report as now presented. Final | | signature: Mau Stewart MD 01/25/2019 12:58 PM Preliminary: Jaryd Freedman, MD Dictation | | initiated: Sammy Freedman MD 01/25/2019 12:39 PM | |Reidentification of a comminuted, displaced fracture of the proximal humerus, without signi ficant change in alignment. | | | |I have personally reviewed the images and, if necessary, edited the report. I agree with e report as now presented. | | | |Final signature: Mau Stewart MD 01/25/2019 12:58 PM | |Preliminary: Sammy Fredeman MD | |Dictation initiated: Sammy Freedman MD 01/25/2019 12:39 PM | + + + +---------+ + + | Performing | Address | City/State/Zipcode | Phone Number | | Organization | | | | + +---------+ + + | [facility] | | | | | [facility]ICE RECOGNITION 2 | | | | + +---------+ + + documented in this encounter Visit Diagnoses + + | Diagnosis | + + | Shoulder pain, unspecified chronicity, unspecified laterality | + + documented in this encounter"
--- OUTSIDE RECORDS SUMMARY | ~2020-01-10 | XMS | Encounter Summary ---
Demographics + + + | Address | [address] | | | [place] [address] | + + + | Home Phone [...] [place] | | | | | [address] | | + + + + + | Ronny Rene | ECON | Unknown | | + + + + + | Char Woodard | ECON | Unknown | | + + + + + Care Team Providers + +------+ + | Care Engineer Station Mainline Name | Role | Phone | + +------+ + | Deondre Landis MD | PCP | | + +------+ + Reason for Visit + + + | Reason | Comments | + + + | Refill Request | | + + + Encounter Details +--------+--------+ + + + | Date | Type | Department | Care Team | Description | +--------+--------+ + + + | 06/29/ | Refill | Digestive Health | Vijay Akbar MD | Refill Request | | 2017 | | Center at [facility] [address] | [address] | | | | | [facility] | [facility] | | | | | [facility] and | [place] [address] | | | | | [place] [address] | [phone] | | | | | [place], [place] | | | | | | [address] | | | | | | [phone] | | | +--------+--------+ + + + Social History + + [...] | + + | 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
--- OUTSIDE RECORDS SUMMARY | ~2020-01-10 | XMS | Encounter Summary ---
Demographics + + + | Address | [address] | | | [place] [address] | + + + | Home Phone | | + + + | Preferred Language | Unknown | + + + | Marital Status | | + + + | Faith Affiliation | NON | + + + | Race | White | + + + | Ethnic Group | Not or | + + + Author + + + | Author | [facility] | + + + | Organization | [facility] | + + + | Address | Unknown | + + + | Phone | Unavailable | + + + Support + + + + + | Name | Relationship | Address | Phone | + + + + + | Selena Jimenez | ECON | [address] | | | | | [place] | | | | | [address] | | + + + + + | Ronny Rene | ECON | Unknown | | + + + + + | Char Woodard | ECON | Unknown | | + + + + + Care Team Providers + +------+ + | Care Data Science And Iot Manager Name | Role | Phone | [...] + + + | Closed | | Non [facility] | Diagnoses | Raffy, | Non-[facility] | | | | Department | Esophageal | MD Vijay | Epic Dept | | | | | cancer (HCC) | [address] [facility] | | | | | | Procedures | [address] | | | | | | CONSULT TO | Rd | | | | | | NON - [facility] | [place], [place] | | | | | | PROVIDER | [address] | | | | | | | Phone: | | | | | | | [phone] | | | | | | | Fax: | | | | | | | [phone] | | +--------+--------+ + + + + Reason for Visit + + + | Reason | Comments | + + + | Home Health orders | | + + + Encounter Details +--------+ + + + + | Date | Type | Department | Care Team | Description | +--------+ + + + + | 04/21/ | Telephone | Digestive Health | Vijay Akbar MD | Home Health orders | | 2015 | | Center at [facility] [address] | [address] | | | | | [facility] | [address] [facility] | | | | | [facility] and | [place] [address] | | | | | [place] [address] | [phone] | | | | | [place], [place] | | | | | | [address] | | | | | | [phone] | | | +--------+ + + + [...] | Diagnosis | + + | Esophageal cancer (HCC) - Primary Malignant neoplasm of esophagus, unspecified site | + + documented in this encounter"
--- OUTSIDE RECORDS SUMMARY | ~2020-01-10 | XMS | Encounter Summary ---
Demographics + + + | Address | [address] | | | [place] [address] | + + + | Home Phone | | + + + | Preferred Language | Unknown | + + + | Marital Status | | + + + | Tenriism Affiliation | NON | + + + | Race | White | + + + | Ethnic Group | Not or | + + + Author + + + | Author | [facility] | + + + | Organization | [facility] | + + + | Address | Unknown | + + + | Phone | Unavailable | + + + Support + + + + + | Name | Relationship | Address | Phone | + + + + + | Selena Jimenez | ECON | [address] | | | | | [place] | | | | | [address] | | + + + + + | Ronny Rene | ECON | Unknown | | + + + + + | Char Woodard | ECON | Unknown | | + + + + + Care Team Providers + +------+ + | Care Electrotype Molder Name | Role | Phone | + +------+ + | David Ferrera MD | PCP | | + +------+ + Reason for Visit +---------+ + | Reason | Comments | +---------+ + | Post Op | | +---------+ + Encounter Details +--------+---------+ + + + | Date | Type | Department | Care Team | Description | +--------+---------+ + + + | 03/12/ | Office | Orthopaedics | Glenn Siegel MD | Fracture (Primary | | 2019 | Visit | [facility] | [address] | Dx) | | | | for Health and | [facility] | | | | | Healing [address] | [place], [place] | | | | | [facility] | [address] | | | | | Health and Healing, | [phone] | | | | | [facility] | | | | | | [place], [place] | | | | | | [address] | | | | | | [phone] | | | +--------+---------+ + + + [...] + + + | Blood Pressure | - | - | | + + + + + | Pulse | - | - | | + + + + + | Temperature | - | - | | + + + + + | Respiratory Rate | - | - | | + + + + + | Oxygen Saturation | - | - | | + + + + + | Inhaled Oxygen | - | - | | | Concentration | | | | + + + + + | Weight | 74.8 kg (165 lb) | 03/12/2019 10:19 AM | | | | | PDT | | + + + + + | Height | 177.8 cm (5' 10") | 03/12/2019 10:19 AM | | | | | PDT | | + + + + + | Body Mass Index | 23.68 | 03/12/2019 10:19 AM | | | | | PDT | | + + + + + documented in this encounter Progress Notes Glenn Siegel MD - 03/12/2019 10:35 AM PDTDate: 2019 Attending Surgeon: Glenn Siegel M.D. Assistant Case Manager(s): Manolo Gallego MD Preoperative Diagnosis(es): right 2- part surgical neck proximal humerus fracture Postoperative Diagnosis(es): right 2- part surgical neck proximal humerus fracture Procedures Performed: Open reduction with internal fixation of right 2- part surgical neck proximal humerus fract ure Pain is minimal and rated as 2 out of 10. The patient has been pursuing the prescribed pos toperative plan well. The wound healing is good with no erythema or discharge. Range of motion measures 110 degr ees of passive elevation, 70 degrees of active elevation, 10 degrees of external rotation an d internal rotation to L4. Radiographs were reviewed and were interpreted as showing mainte nance of good fracture alignment and hardware position. This patient had his current status reviewed along with the rehabilitation plan to be pursu ed currently. The patient was asked to return to clinic for further follow up in 6 weeks wi th repeat radiographs. documented in this encounter Plan of Treatment Not on filedocumented as of this encounter Results X-RAY SHOULDER 3+ VIEWS RIGHT (03/12/2019 10:16 AM PDT) + + | Specimen | + + | | + + + + + | Narrative | Performed At | + + + | EXAM: SHOULDER 3 VIEWS RIGHT HISTORY: 6 wk post op right TSA | [facility] | | COMPARISON: 01/25/2019 FINDINGS: The right proximal humerus | RADIOLOGY VOICE | | fixation plate and screws are intact and in satisfactory alignment. | RECOGNITION 2 | | There is no hardware breakage or loosening. The comminuted proximal | | | humeral fracture is in improved alignment after fixation, and there | | | has also been interval partial healing with blurring of fracture | | | margins and callus formation. There has been prior rotator cuff | | | repair, with a suture anchor in unchanged position. There is | | | persistent widening of the acromioclavicular joint, favored to be | | | related to remote lateral clavicle resection. 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 IMPRESSION: Interval | | | fixation of the proximal humeral fracture, with improved anatomic | | | alignment and interval healing. I have personally reviewed the | | | images and, if necessary, edited the report. I agree with the report | | | as now presented. Final signature: Mau Stewart MD 03/12/2019 | | | 10:53 AM Preliminary: Sammy Freedman MD Dictation initiated: | | | Sammy Freedman MD 03/12/2019 10:34 AM | | + + + + + | Procedure Note | + + | Service Account, Vocalcom Res In Interface - 03/12/2019 10:54 AM PDT EXAM: SHOULDER 3 | | VIEWS RIGHT HISTORY: 6 wk post op right TSA COMPARISON: 01/25/2019 FINDINGS: The right | | proximal humerus fixation plate and screws are intact and in satisfactory alignment. | | There is no hardware breakage or loosening. The comminuted proximal humeral fracture is | | in improved alignment after fixation, and there has also been interval partial healing | | with blurring of fracture margins and callus formation. There has been prior rotator | | cuff repair, with a suture anchor in unchanged position. There is persistent widening of | | the acromioclavicular joint, favored to be related to remote lateral clavicle | | resection. 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 IMPRESSION: | | Interval fixation of the proximal humeral fracture, with improved anatomic alignment and | | interval healing. I have personally reviewed the images and, if necessary, edited the | | report. I agree with the report as now presented. Final signature: Mau Stewart MD | | 03/12/2019 10:53 AM Preliminary: Sammy Freedman MD Dictation initiated: Sammy Freedman MD | | 03/12/2019 10:34 AM | |Interval fixation of the proximal humeral fracture, with improved anatomic alignment and in terval healing. | | | |I have personally reviewed the images and, if necessary, edited the report. I agree with th e report as now presented. | | | |Final signature: Mau Stewart MD 03/12/2019 10:53 AM | |Preliminary: Sammy Freedman MD | |Dictation initiated: Sammy Freedman MD 03/12/2019 10:34 AM | + + + +---------+ + + | Performing | Address | City/State/Zipcode | Phone Number | | Organization | | | | + +---------+ + + | [facility] | | | | | [facility] REC[facility] | | | | + +---------+ + + documented in this encounter Visit Diagnoses + + | Diagnosis | + + | Fracture - Primary Closed fracture of unspecified bone | + + documented in this encounter
--- OUTSIDE RECORDS SUMMARY | ~2020-01-10 | XMS | Encounter Summary ---
Demographics + + + | Address | [address] | | | [place] [address] | + + + | Home Phone | | + + + | Preferred Language | Unknown | + + + | Marital Status | | + + + | Pentecostal Affiliation | NON | + + + | Race | White | + + + | Ethnic Group | Not or | + + + Author + + + | Author | [facility] | + + + | Organization | [facility] | + + + | Address | Unknown | + + + | Phone | Unavailable | + + + Support + + + + + | Name | Relationship | Address | Phone | + + + + + | Selena Jimenez | ECON | [address] | | | | | [place] | | | | | [address] | | + + + + + | Ronny Rene | ECON | Unknown | | + + + + + | Char Woodard | ECON | Unknown | | + + + + + Care Team Providers + +------+ + | Care Debeader Name | Role | Phone | + +------+ + | Deondre Landis MD | PCP | | + +------+ + Encounter Details +--------+ + + + + | Date | Type | Department | Care Team | Description | +--------+ + + + + | 11/18/ | Documentati | Vascular Surgery | Jean Huitron, | | | 2018 | on | at [facility] [address] | MD [address] | | | | | [address] | [facility] | | | | | [facility], | [place], [place] | | | | | [address] [place] [address] | [address] | | | | | [place], [place] | [phone] | | | | | [address] | | | | | | [phone] | | | +--------+ + + + [...]
--- OUTSIDE RECORDS SUMMARY | ~2020-01-10 | XMS | Encounter Summary ---
Demographics + + + | Address | [address] | | | [place] [address] | + + + | Home Phone | | + + + | Preferred Language | Unknown | + + + | Marital Status | | + + + | Adventist Affiliation | NON | + + + | Race | White | + + + | Ethnic Group | Not or | + + + Author + + + | Author | [facility] | + + + | Organization | [facility] | + + + | Address | Unknown | + + + | Phone | Unavailable | + + + Support + + + + + | Name | Relationship | Address | Phone | + + + + + | Selena Jimenez | ECON | [address] | | | | | [place] | | | | | [address] | | + + + + + | Ronny Rene | ECON | Unknown | | + + + + + | Char Woodard | ECON | Unknown | | + + + + + Care Team Providers + +------+ + | Care Corporate Strategy Analyst Name | Role | Phone | + +------+ + | Deondre Landis MD | PCP | | + +------+ + Reason for Visit + + + | Reason | Comments | + + + | Appointment | | + + + Encounter Details +--------+ + + + + | Date | Type | Department | Care Team | Description | +--------+ + + + + | 09/14/ | Telephone | Digestive Health | Vijay Akbar MD | Appointment | | 2017 | | Center at [facility] [address] | [address] | | | | | [facility] | [facility] | | | | | [facility] and | [place] [address] | | | | | [place] [address] | [phone] | | | | | [place], [place] | | | | | | [address] | | | | | | [phone] | | | +--------+ + + + [...]
--- OUTSIDE RECORDS SUMMARY | ~2020-01-10 | XMS | Encounter Summary ---
Demographics + + + | Address | [address] | | | [place] [address] | + + + | Home Phone | | + + + | Preferred Language | Unknown | + + + | Marital Status | | + + + | Muslim Affiliation | Unknown | + + + | Race | Unknown | + + + | Ethnic Group | Unknown | + + + Author + + + | Author | [facility] | | | and [place] | + + + | Organization | [facility] | | | and [place] | + + + | Address | Unknown | + + + | Phone | Unavailable | + + + Support + + + + + | Name | Relationship | Address | Phone | + + + + + | Selena Jimenez | ECON | [address] | | | | | [place] [address] | | + + + + + Care Team Providers + +------+ + | Care Veterinary Laboratory Technician Name | Role | Phone | + +------+ + | David Ferrera MD | PCP | | + +------+ + Reason for Visit + + + | Reason | Comments | + + + | Blood Pressure | | + + + Encounter Details +--------+ + + + + | Date | Type | Department | Care Team | Description | +--------+ + + + + | 01/09/ | Telephone | [facility] | Bernice Antonio, | Blood Pressure | | 2019 | | CARDIOLOGY [address] | MD [address] | | | | | [place], | [place], | | | | | [place] [address] | [place] [address] | | | | | [phone] | [phone] | | | | | | | [...] [place], | | | | | | [place] [address] | | | | | | [phone] | | | | | | | | +--------+---------+ + + + documented as of this encounter Visit Diagnoses Not on filedocumented in this encounter"
--- OUTSIDE RECORDS SUMMARY | ~2020-01-10 | XMS | Encounter Summary ---
Demographics + + + | Address | [address] | | | [place] [address] | + + + | Home Phone | | + + + | Preferred Language | Unknown | + + + | Marital Status | | + + + | Alevism Affiliation | NON | + + + [...] [place] | | | | | [address] | | + + + + + | Ronny Rene | ECON | Unknown | | + + + + + | Char Woodard | ECON | Unknown | | + + + + + Care Team Providers + +------+ + | Care Backbreaker Name | Role | Phone | + +------+ + | David Ferrera MD | PCP | | + +------+ + Encounter Details +--------+ + + + + | Date | Type | Department | Care Team | Description | +--------+ + + + + | 03/12/ | Hospital | Radiology/Imaging | Glenn Siegel MD | | | 2019 | Encounter | Lab at [facility] [address] | [address] [facility] | | | | | [facility] | [facility] | | | | | [facility] and | [place], [place] | | | | | [place] [address], | [address] | | | | | [address] [place] [address] | [phone] | | | | | [place], [place] | | | | | | [address] | | | | | | [phone] | | | +--------+ + + + [...] | + +-------+---+---+ + + | Comments: ramiro gómez pure mint leaves snuff (nicotine free) | [...] +---------+ + + | metoclopramide HCl | Take 10 mg by mouth. | | 0 | | | | 10 mg oral tablet | | | | | [...] | X-RAY SHOULDER 3+ | Routin | 03/12/2019 | Fracture | Results for this | | VIEWS RIGHT | e | 10:16 AM | | procedure are in the [...] Service Account, Radiant Res In Interface - 03/12/2019 10:54 AM [...] | Diagnosis | + + | Fracture Closed fracture of unspecified bone | + + documented in this encounter"
--- OUTSIDE RECORDS SUMMARY | ~2020-01-10 | XMS | Encounter Summary ---
Demographics + + + | Address | [address] | | | [place] [address] | + + + | Home Phone | | + + + | Preferred Language | Unknown | + + + | Marital Status | | + + + | Oriental Orthodox Affiliation | Unknown | + + + | Race | Unknown | + + + | Ethnic Group | Unknown | + + + Author + + + | Author | [facility] | | | and [place] | + + + | Organization | [facility] | | | and [place] | + + + | Address | Unknown | + + + | Phone | Unavailable | + + + Support + + + + + | Name | Relationship | Address | Phone | + + + + + | Selena Jimenez | ECON | [address] | | | | | [place] [address] | | + + + + + Care Team Providers + +------+ + | Care Tool Design Draftsperson Name | Role | Phone | + +------+ + | Mingo Burgos DO | PCP | | + +------+ + Reason for Referral Diagnostic/Screening (Routine) +--------+--------+ + + + + | Status | Reason | Specialty | Diagnoses / | Referred By | Referred To | | | | | Procedures | Contact | Contact | +--------+--------+ + + + + | Closed | | Radiology | Diagnoses | Mo, | [facility] | | | | | Lumbar | Love Seymour, | [address] | | | | | radiculopath | 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[place], | | | | | y S/P | | [place] | | | | | lumbar | | [address] | | | | | spinal | | Phone: | | | | | fusion DDD | | [phone] | | | | | (degenerativ | | Fax: | | | | | e disc | | [phone] | | | | | disease), | | | | | | | lumbar | | | | | | | Chronic low | | | | | | | back pain | | | | | | | Procedures | | | | | | | CT | | | | | | | Myelography | | | | | | | Lumbar Spine | | | | | | | MRI | | | +--------+--------+ + + + + Reason for Visit Diagnostic/Screening (Routine) +--------+--------+ + + + + | Status | Reason | Specialty | Diagnoses / | Referred By | Referred To | | | | | Procedures | Contact | Contact | +--------+--------+ + + + + | Closed | | Radiology | Diagnoses | | | | | | | Thoracic or | [place], | | | | | | lumbosacral | Roderick Dong MD | | | | | | neuritis or | [address] | | | | | | | [address] [place] | | | | | | radiculitis, | [place] | | | | | | unspecified | [address] | | | | | | | Phone: | | | | | | Arthrodesis | [phone] | | | | | | status DDD | Fax: | | | | | | (degenerativ | [phone] | | | | | | e disc | | | | | | | disease), | | | | | | | lumbar | | | | | | | Procedures | | | | | | | CT | | | | | | | Myelography | | | | | | | Lumbar Spine | | | | | | | CT | | | +--------+--------+ + + + + Encounter Details +--------+ + + + + | Date | Type | Department | Care Team | Description | +--------+ + + + + | 06/28/ | Hospital | [facility] | Roderick Gill | Lumbar | | 2013 | Encounter | [facility] [address] | T, [address] | radiculopathy/neurog | | | | [place], | [address] | enic claudication; | | | | [place] [address] | [address] | S/P lumbar spinal | | | | [phone] | | fusion; DDD | | | | | | (degenerative disc | | | | | | disease), lumbar; | | | | | | Chronic low back | | | | | | pain | +--------+ + + + + Social [...] + + + +---------+ + + | atorvaSTATin | Take 80 mg by mouth | | 0 | | | | (LIPITOR) 80 MG | nightly. | | | | | | tablet | | | | | | + + + +---------+ + + | amLODIPine | Take 5 mg by mouth | | 0 | 05/07/20 | | | (NORVASC) 5 mg | Daily. | | | 13 | 7 | | tablet | | | | | | + + + +---------+ + + | amLODIPine | TAKE ONE TABLET BY | 30 | 6 | 05/07/20 | | | (NORVASC) 5 mg | MOUTH EVERY DAY | tablet | | 13 | 4 | | tablet | | | | | | + + + +---------+ + + | aspirin 325 mg EC | Take 81 mg by mouth | | 0 | 10/27/19 | | | tablet | Daily. | | | 12 | 6 | + + + +---------+ + + | aspirin 325 mg EC | Take 325 mg by mouth | | 0 | 10/27/19 | | | tablet | Daily. | | | 12 | 4 | + + + +---------+ + + | Calcium | 1 tablet by mouth | | 0 | 10/27/19 | | | Carbonate-Vitamin D | daily | | | 12 | 4 | | (CALCIUM + D) | | | | | | | 600-200 MG-UNIT TABS | | | | | | + + + +---------+ + + | chlorthalidone 25 | TAKE ONE TABLET BY | 30 | 6 | 05/20/20 | | | mg tablet | MOUTH EVERY DAY | tablet | | 13 | 4 | + + + +---------+ + + | lisinopril | | | 0 | 05/20/20 | | | (PRINIVIL,ZESTRIL) | | | | 13 | 5 | | 40 MG tablet | | | | | | + + + +---------+ + + | lisinopril | TAKE ONE TABLET BY | 30 | 6 | 05/20/20 | | | (PRINIVIL,ZESTRIL) | MOUTH EVERY DAY | tablet | | 13 | 4 | | 40 MG tablet | | | | | | + + + +---------+ + + | meloxicam (MOBIC) | Take 15 mg by mouth | | 0 | 10/27/19 | | | 15 mg tablet | Daily. | | | 12 | 9 | + + + +---------+ + + | metoprolol | TAKE ONE TABLET BY | 60 | 6 | 09/16/20 | | | tartrate (LOPRESSOR) | MOUTH TWICE DAILY | tablet | | 13 | 9 | | 50 mg tablet | | | | | | + + + +---------+ + + | nitroglycerin | One tablet under | 25 | 11 | 07/25/20 | | | (NITROSTAT) 0.4 mg | tongue as needed for | tablet | | 13 | 9 | | SL tablet | chest pain. May | | | | | | | repeat every 5 | | | | | | | minutes up to 3 | | | | | | | times. If no relief | | | | | | | after 3rd tablet, | | | | | | | call 911. | | | | | + + + +---------+ + + | omeprazole | Take 20 mg by mouth | | 0 | 06/02/20 | | | (PRILOSEC) 20 mg | Daily. | | | 12 | 5 | | capsule | | | | | | + + + +---------+ + + | simvastatin | TAKE ONE TABLET BY | 30 | 6 | 03/26/20 | | | (ZOCOR) 80 mg tablet | MOUTH EVERY DAY | tablet | | 13 | 4 | + + + +---------+ + + | tamsulosin | Take 0.4 mg by mouth | | 0 | | | | (FLOMAX) 0.4 mg CAPS | daily (after | | | | 4 | | | breakfast). | | | | | + + [...] [place], | | | | | | [place] [address] | | | | | | [phone] | | | | | | | | +--------+---------+ + + + documented as of this encounter Procedures + +--------+ + + + | Procedure Name | Priori | Date/Time | Associated Diagnosis | Comments | | | ty | | | | + +--------+ + + + | CT MYELOGRAPHY | Routin | 06/28/2014 | Lumbar | Results for this | | LUMBAR SPINE | e | 12:27 PM | radiculopathy/neurog | procedure are in the | | | | PDT | enic claudication | results section. | | | | | S/P lumbar spinal | | | | | | fusion DDD | | | | | | (degenerative disc | | | | | | disease), lumbar | | | | | | Chronic low back | | | | | | pain | | + +--------+ + + + documented in this encounter Results CT Myelography Lumbar Spine (06/28/2014 12:27 PM PDT) + + | Specimen | + + | | + + + + + | Narrative | Performed At | + + + | CT MYELOGRAPHY LUMBAR SPINE: 06/28/2014 12:12 PM CLINICAL | [facility] | | HISTORY: Lumbar radiculopathy/neurogenic claudication. History of | LAB | | lumbar fusion. Multiple prior surgeries. COMPARISON: None | | | TECHNIQUE: Myelographic contrast has been placed in the thecal sac by | | | prior procedure. Axial images are obtained from T12 to sacrum. These | | | are reviewed in multiplanar reformations. FINDINGS: In keeping | | | with the difficulty and lack of observed contrast pooling during the | | | mammogram injection, CSF in the thecal sac is not significantly | | | opacified even though the patient is deliberately scanned in the prone | | | position. CSF measures only 30 CT units and from the myelographic | | | standpoint this examination would be unsatisfactory. The contrast is | | | not incorrectly placed or identified anywhere on the scan. A small | | | bubble of air is seen in the thecal sac confirming intrathecal entry. | | | Because of these findings, the remaining contrast in the syringe | | | that was used for myelogram was radiographed and confirmed to be | | | opaque. Presumably this failure of opacification is associated with | | | large capacity canal and dilution, even though the amount of contrast | | | administered (8 mL) is more than average for typical lumbar | | | myelogram. There are 5 lumbar-type vertebral bodies. Chronic | | | retrolisthesis of L4 on L5 measuring 1.4 cm. Bridging osteophyte | | | across this level on the left. Also 6 mm of anterolisthesis of L5 on | | | S1. Alignment is otherwise normal. Vertebral body heights are | | | normally maintained. Curved metallic rods extend from the spinous | | | process of L3 and L4, inferiorly into the sacrum bilaterally at S2. | | | T12-L1: Small broad-based disc bulge with faint calcifications in | | | the annulus fibrosis. Mild posterior facet degenerative change. | | | Central canal and neural foramen show no narrowing. L1-L2: Small | | | broad-based calcified disc. Small bubble of intrathecal air posterior | | | to L1. No central canal or foraminal narrowing. L2-L3: Small | | | calcified disc bulge. Moderate posterior facet degenerative change. | | | No central canal or foraminal narrowing. L3-L4: Moderate posterior | | | facet degenerative changes. Irregular bony changes of the spinous | | | processes were fixation rods are present. Bony central canal is well | | | maintained. No foraminal narrowing. L4-L5: Prior laminectomy. | | | Severe posterior facet degenerative changes. Grade 2 | | | spondylolisthesis. Central canal is enlarged at this point measuring | | | over 2 cm anterior to posterior. Foramen appear narrowed because of | | | the spondylolisthesis, and facet joint hypertrophy on the right. | | | L5-S1: 6 mm of anterolisthesis of L5 on S1. Large caliber central | | | canal secondary to laminectomy. Extensive posterior osteophyte | | | formation around the right facet joint. This narrows the right neural | | | foramen entrance. IMPRESSION - 1. Nonopacification of the | | | lumbar thecal sac CSF as discussed extensively above. Other than | | | dilution, no explanation for this is apparent. Because of this, this | | | examination is essentially a noncontrast lumbar spine CT. If | | | myelographic images were still felt to be clinically necessary larger | | | volume or more concentrated contrast may be required. 2. Prior | | | L3 to sacrum fusion with bilateral long bent rods. Underlying | | | laminectomy at L4 and L5. 3. L4-L5 and L5-S1 spondylolisthesis as | | | described. 4. Right foraminal narrowing secondary to | | | spondylolisthesis and marked right facet joint hypertrophy and | | | osteophytosis at L4-L5 and L5-S1. Large volume central canal with no | | | other areas of narrowing. Dictated and Signed by: Nasim Deleon, | | | Electronically signed: 06/28/2014 5:45 PM | | + + + + + | Procedure Note | + + | Loi, Rad Results In - 06/28/2014 5:[address] MYELOGRAPHY LUMBAR SPINE: 06/28/2014 | | 12:12 PMCLINICAL HISTORY: Lumbar radiculopathy/neurogenic claudication. History | | oflumbar fusion. Multiple prior surgeries.COMPARISON: NoneTECHNIQUE: Myelographic | | contrast has been placed in the thecal sac by priorprocedure. Axial images are obtained | | from T12 to sacrum. These are reviewed inmultiplanar reformations.FINDINGS: In keeping | | with the difficulty and lack of observed contrast poolingduring the mammogram injection, | | CSF in the thecal sac is not significantlyopacified even though the patient is | | deliberately scanned in the prone position.CSF measures only 30 CT units and from the | | myelographic standpoint thisexamination would be unsatisfactory. The contrast is not | | incorrectly placed oridentified anywhere on the scan. A small bubble of air is seen in | | the thecal sacconfirming intrathecal entry. Because of these findings, the remaining | | contrastin the syringe that was used for myelogram was radiographed and confirmed to | | beopaque. Presumably this failure of opacification is associated with largecapacity | | canal and dilution, even though the amount of contrast administered (8mL) is more than | | average for typical lumbar myelogram.There are 5 lumbar-type vertebral bodies. Chronic | | retrolisthesis of L4 on J2tayfecezd 1.4 cm. Bridging osteophyte across this level on the | | left. Also 6 mmof anterolisthesis of L5 on S1. Alignment is otherwise normal. Vertebral | | bodyheights are normally maintained. Curved metallic rods extend from the | | spinousprocess of L3 and L4, inferiorly into the sacrum bilaterally at S2.T12-L1: Small | | broad-based disc bulge with faint calcifications in the annulusfibrosis. Mild posterior | | facet degenerative change. Central canal and neuralforamen show no narrowing.L1-L2: | | Small broad-based calcified disc. Small bubble of intrathecal airposterior to L1. No | | central canal or foraminal narrowing.L2-L3: Small calcified disc bulge. Moderate | | posterior facet degenerative change.No central canal or foraminal narrowing.L3-L4: | | Moderate posterior facet degenerative changes. Irregular bony changes ofthe spinous | | processes were fixation rods are present. Bony central canal is wellmaintained. No | | foraminal narrowing.L4-L5: Prior laminectomy. Severe posterior facet degenerative | | changes. Grade 2spondylolisthesis. Central canal is enlarged at this point measuring | | over 2 cmanterior to posterior. Foramen appear narrowed because of the | | spondylolisthesis,and facet joint hypertrophy on the right.L5-S1: 6 mm of | | anterolisthesis of L5 on S1. Large caliber central canalsecondary to laminectomy. | | Extensive posterior osteophyte formation around theright facet joint. This narrows the | | right neural foramen entrance.IMPRESSION -1. Nonopacification of the lumbar thecal sac | | CSF as discussed extensively above.Other than dilution, no explanation for this is | | apparent. Because of this, thisexamination is essentially a noncontrast lumbar spine CT. | | If myelographic imageswere still felt to be clinically necessary larger volume or more | | concentratedcontrast may be required.2. Prior L3 to sacrum fusion with bilateral long | | bent rods. Underlyinglaminectomy at L4 and L5.3. L4-L5 and L5-S1 spondylolisthesis as | | described.4. Right foraminal narrowing secondary to spondylolisthesis and marked | | rightfacet joint hypertrophy and osteophytosis at L4-L5 and L5-S1. Large volumecentral | | canal with no other areas of narrowing.Dictated and Signed by: Nasim Deleon MD | | Electronically signed: 06/28/2014 5:45 PM | | | |L4-L5: Prior laminectomy. Severe posterior facet degenerative changes. Grade 2 | |spondylolisthesis. Central canal is enlarged at this point measuring over 2 cm | |anterior to posterior. Foramen appear narrowed because of the spondylolisthesis, | |and facet joint hypertrophy on the right. | | | |L5-S1: 6 mm of anterolisthesis of L5 on S1. Large caliber central canal | |secondary to laminectomy. Extensive posterior osteophyte formation around the | |right facet joint. This narrows the right neural foramen entrance. | | | |IMPRESSION - | | | |1. Nonopacification of the lumbar thecal sac CSF as discussed extensively above. | |Other than dilution, no explanation for this is apparent. Because of this, this | |examination is essentially a noncontrast lumbar spine CT. If myelographic images | |were still felt to be clinically necessary larger volume or more concentrated | |contrast may be required. | | | |2. Prior L3 to sacrum fusion with bilateral long bent rods. Underlying | |laminectomy at L4 and L5. | | | |3. L4-L5 and L5-S1 spondylolisthesis as described. | | | |4. Right foraminal narrowing secondary to spondylolisthesis and marked right | |facet joint hypertrophy and osteophytosis at L4-L5 and L5-S1. Large volume | |central canal with no other areas of narrowing. | | | |Dictated and Signed by: Nasim Deleon MD | | Electronically signed: 06/28/2014 5:45 PM | + + + +---------+ + + | Performing | Address | City/State/Zipcode | Phone Number | | Organization | | | | + +---------+ + + | [facility] | | | [phone] | + +---------+ + + | [facility] | | | [phone] | + +---------+ + + documented in this encounter Visit Diagnoses + + | Diagnosis | + + | Lumbar radiculopathy/neurogenic claudication Thoracic or lumbosacral neuritis or | | radiculitis, unspecified | + + | S/P lumbar spinal fusion Arthrodesis status | + + | DDD (degenerative disc disease), lumbar Degeneration of lumbar or lumbosacral | | intervertebral disc | + + | Chronic low back pain Lumbago | + + documented in this encounter"
--- OUTSIDE RECORDS SUMMARY | ~2020-01-10 | XMS | Encounter Summary ---
Demographics + + + | Address | [address] | | | [place] [address] | + + + | Home Phone | | + + + | Preferred Language | Unknown | + + + | Marital Status | | + + + | Hoahaoism Affiliation | NON | + + + | Race | White | + + + | Ethnic Group | Not or | + + + Author + + + | Author | [facility] | + + + | Organization | [facility] | + + + | Address | Unknown | + + + | Phone | Unavailable | + + + Support + + + + + | Name | Relationship | Address | Phone | + + + + + | Selena Jimenez | ECON | [address] | | | | | [place] | | | | | [address] | | + + + + + | Ronny Rene | ECON | Unknown | | + + + + + | Char Woodard | ECON | Unknown | | + + + + + Care Team Providers + +------+ + | Care Hollow Ware Maker Name | Role | Phone | + [...] | +--------+ + + + + | 04/02/ | Anesthesia | 6A Intra Op 3181 | Tea Gutiérrez, | | | 2014 | Event | [address] | [address] | | | | | [facility] | [address] | | | | | Hospital Admitting | [place], [place] | | | | | Desk Located on the | [address] | | | | | 9th floor | [phone] | | | | | [place], [place] | | | | | | [address] | Christoph Norman MD | | | | | | [address] | | | | | | [address] | | | | | | [place], [place] | | | | | | [address] | | | | | | [phone] | | | | | | | | +--------+ + + + + Anesthesia Record + + + + + | Procedure Name | Responsible | Anesthesia Start | Anesthesia Stop Time | | | Anesthesiologist | Time | | + + + + + | LEFT NECK WASHOUT | Tea Gutiérrez MD | 04/02/15 4423 | 04/02/15 1702 | | (Left Abdomen) | | | | + + + + + +----+---+ + + | Da | T | Event | Comment | | te | i | | | | | m | | | | | e | | | +----+---+ + + | 07 | 1 | | | | /1 | 5 | | | | 5/ | 5 | | | | 20 | 2 | | | | 15 | | | | +----+---+ + + | | 1 | Pt. Check | Prior to anesthesia start, pt. Identified, examined, chart | | | 5 | | reviewed, PARQ held, anesthetic plan made or approved by | | | 5 | | attending anesthesiologist. NPO status confirmed as appropriate | | | 2 | | for procedure Preoperative evaluation: unchanged | +----+---+ + + | | 1 | An Start | | | | 5 | | | | | 5 | | | | | 3 | | | +----+---+ + + | | 1 | An Start | | | | 5 | Data | | | | 5 | | | | | 6 | | | +----+---+ + + | | 1 | Vitals | Monitors applied Vital signs checked Patient ready for anesthesia | | | 6 | Checked | | | | 0 | | | | | 3 | | | +----+---+ + + | | 1 | Std. Airway | | | | 6 | Mgt. | | | | 0 | | | | | 7 | | | +----+---+ + + | | 1 | Ready | | | | 6 | | | | | 1 | | | | | 4 | | | +----+---+ + + | | 1 | Abx held | Abx held for Medical Reason: Contraindicated or already receiving | | | 6 | Medical or | antibiotics | | | 1 | Surgical | | | | 5 | Reason | | +----+---+ + + | | 1 | Timeout | | | | 6 | | | | | 2 | | | | | 6 | | | +----+---+ + + | | 1 | Incision | | | | 6 | | | | | 2 | | | | | 6 | | | +----+---+ + + | | 1 | SBAR | Intraoperative handoff | | | 6 | | | | | 3 | | | | | 2 | | | +----+---+ + + | | 1 | Medication | Fentanyl 400 mcg Midazolam 2 mg | | | 6 | Handoff | | | | 3 | | | | | 2 | | | +----+---+ + + | | 1 | Surgery end | | | | 6 | | | | | 4 | | | | | 4 | | | +----+---+ + + | | 1 | An Extubate | Neuromuscular function Intact. Pharynx suctioned. Patient obeys | | | 6 | | commands. Adequate pulmonary mechanics. | | | 5 | | | | | 0 | | | +----+---+ + + | | 1 | an stop | | | | 6 | data | | | | 5 | | | | | 2 | | | +----+---+ + + | | 1 | Anesthesia | | | | 7 | End | | | | 0 | | | | | 2 | | | +----+---+ + + +------+ | Meds | +------+ + +---------+ | Name | Total | + +---------+ | fentaNYL | 100 mcg | + +---------+ | lidocaine 2% | 70 mg | + +---------+ | propofol | 110 mg | + +---------+ | rocuronium | 30 mg | + +---------+ | ondansetron | 4 mg | + +---------+ | glycopyrrolate | 0.4 mg | + +---------+ | neostigmine | 3 mg | + +---------+ | PHENYLephrine | 550 mcg | + +---------+ | bupivacaine (PF) 0.1 %, | 3.45 mL | | HYDROmorphone 10 mcg/mL in NaCl | | | 0.9 % epidural infusion | | + +---------+ | LR | 500 mL | + +---------+ + + | Name | + + | Insp Jigar | + + | Et Jigar | + + + + | No [...] RN | +--------+ + + + | Periph | 04/01/15; 1152; Left; Forearm; 20 | 04/01/15 1152 by | 04/04/15 1710 by | | eral | g; 04/04/15; 1710; Infiltrated | Odilia Dennis RN | Eve Salguero RN | | IV | | | | +--------+ + + + | Periph | 04/02/15; 0852; IVT; Right; | 04/02/15 0852 by | 04/06/15 0000 by | | eral | Dorsal; Forearm; 22 g; Lidocaine; | Sahra Martin RN | Sariah Flowers RN | | IV | No; Positive; 04/06/15 | | | +--------+ + + + | Incisi | 04/02/15; 1628; Left; neck; | 04/02/15 1628 by | 07/08/17 0659 by | | on | 07/08/17 (Automatic cleanup per | Feli Garner RN | Discontinued After | | | RA 3006--contact admin for | | Discharge | | | questions.); 0659 (Automatic | | | | | cleanup per RA 3006--contact | | | | | admin for questions.) | | | +--------+ + + + | Drain | 04/02/15; 1632; Malathi; Left; | 04/02/15 1632 by | 07/08/17 0659 by | | | neck; 07/08/17 (Automatic cleanup | Feli Garner RN | Discontinued After | | | per RA 3006--contact admin for | | Discharge [...] filedocumented in this encounter Administered Medications + + + +------+---------+------+ | Medication Order | MAR | Action | Dose | Rate | Site | | | Action | Date | | | | + + + +------+---------+------+ | bupivacaine (PF) 0.1 %, | Rate/Dos | 04/03/20 | | 3 mL/hr | | | HYDROmorphone 10 mcg/mL in NaCl | e Verify | 15 7:22 | | | | | 0.9 % epidural infusion | | AM PDT | | | | | epidural, CONTINUOUS, Starting | | | | | | | 03/30/15 at 1230, Until Kati | | | | | | | 04/03/15 at 1316 | | | | | | + + + +------+---------+------+ + + +---------+---------+---+ | Rate/Dose Verify | 04/02/20 | | 3 mL/hr | | | | 15 7:30 | | | | | | PM PDT | | | | + + +---------+---------+---+ | Rate/Dose Change | 04/02/20 | 3 mL/hr | 3 mL/hr | | | | 15 3:53 | | | | | | PM PDT | | | | + + +---------+---------+---+ +---+---+ | | | +---+---+ + +-------+ +---------+---+---+ | fentaNYL citrate (PF) | Given | 04/02/20 | 100 mcg | | | | (SUBLIMAZE) injection | | 15 4:07 | | | | | INTRAPROCEDURE PRN, Starting Wed | | PM PDT | | | | | 04/02/15 at 1607, Until Wed | | | | | | | 15 at 1652, sedation | | | | | | + +-------+ +---------+---+---+ +---+---+ | | | +---+---+ + +-------+ +--------+---+---+ | glycopyrrolate (OLE) | Given | 04/02/20 | 0.4 mg | | | | injection INTRAPROCEDURE PRN, | | 15 4:44 | | | | | Starting Tue04/02/15 at 1644, | | PM PDT | | | | | Until Tue04/02/15 at 1652 | | | | | | + +-------+ +--------+---+---+ +---+---+ | | | +---+---+ + + + +---+---+---+ | lactated ringers IV | given by | 04/02/20 | | | | | INTRAPROCEDURE CONTINUOUS PRN, | | 15 5:02 | | | | | Starting Tue04/02/15 at 1552, | anesthes | PM PDT | | | | | Until Tue04/02/15 at 1652 | iology | | | | | + + + +---+---+---+ + + +---+---+---+ | given by anesthesiology | 04/02/20 | | | | | | 15 4:32 | | | | | | PM PDT | | | | + + +---+---+---+ | New Bag | 04/02/20 | | | | | | 15 3:52 | | | | | | PM PDT | | | | + + +---+---+---+ +---+---+ | | | +---+---+ + +-------+ +-------+---+---+ | lidocaine PF (XYLOCAINE MPF) 20 | Given | 04/02/20 | 70 mg | | | | mg/mL (2 %) injection | | 15 4:07 | | | | | INTRAPROCEDURE PRN, Starting Wed | | PM PDT | | | | | 04/02/15 at 1607, Until Wed | | | | | | | 04/02/15 at 1652 | | | | | | + +-------+ +-------+---+---+ +---+---+ | | | +---+---+ + +-------+ +------+---+---+ | neostigmine (PROSTIGMIN) | Given | 04/02/20 | 3 mg | | | | injection intravenous, | | 15 4:44 | | | | | INTRAPROCEDURE PRN, Starting Wed | | PM PDT | | | | | 04/02/15 at 1644, Until Wed | | | | | | | 04/02/15 at 1652 | | | | | | + +-------+ +------+---+---+ +---+---+ | | | +---+---+ + +-------+ +------+---+---+ | ondansetron (ZOFRAN) injection | Given | 04/02/20 | 4 mg | | | | INTRAPROCEDURE PRN, Starting Wed | | 15 4:46 | | | | | 04/02/15 at 1646, Until Wed | | PM PDT | | | | | 04/02/15 at 1652 | | | | | | + +-------+ +------+---+---+ +---+---+ | | | +---+---+ + +-------+ +---------+---+---+ | PHENYLEPHrine 100 mcg/mL | Given | 04/02/20 | 100 mcg | | | | injection (OR syringe) | | 15 4:25 | | | | | intravenous, INTRAPROCEDURE PRN, | | PM PDT | | | | | Starting Tue04/02/15 at 1610, | | | | | | | Until Tue04/02/15 at 1652 | | | | | | + +-------+ +---------+---+---+ +-------+ +---------+---+---+ | Given | 04/02/20 | 100 mcg | | | | | 15 4:22 | | | | | | PM PDT | | | | +-------+ +---------+---+---+ | Given | 04/02/20 | 100 mcg | | | | | 15 4:19 | | | | | | PM PDT | | | | +-------+ +---------+---+---+ +---+---+ | | | +---+---+ + +-------+ +-------+---+---+ | propofol INTRAPROCEDURE PRN, | Given | 04/02/20 | 30 mg | | | | Starting 04/02/15 at 1607, | | 15 4:08 | | | | | Until 04/02/15 at 1652 | | PM PDT | | | | + +-------+ +-------+---+---+ +-------+ +-------+---+---+ | Given | 04/02/20 | 80 mg | | | | | 15 4:07 | | | | | | PM PDT | | | | +-------+ +-------+---+---+ +---+---+ | | | +---+---+ + +-------+ +-------+---+---+ | rocuronium (ZEMURON) injection | Given | 04/02/20 | 30 mg | | | | INTRAPROCEDURE PRN, Starting Wed | | 15 4:08 | | | | | 04/02/15 at 1608, Until Wed | | PM PDT | | | | | 04/02/15 at 1652, Neuromuscular | | | | | | | block | | | | | | + +-------+ +-------+---+---+ +---+---+ | | | +---+---+ documented in this encounter"
--- OUTSIDE RECORDS SUMMARY | ~2020-01-10 | XMS | Encounter Summary ---
Demographics + + + | Address | [address] | | | [place] [address] | + + + | Home Phone | | + + + | Preferred Language | Unknown | + + + | Marital Status | | + + + | Gnosticist Affiliation | NON | + + + [...] [place] | | | | | [address] | | + + + + + | Ronny Rene | ECON | Unknown | | + + + + + | Char Woodard | ECON | Unknown | | + + + + + Care Team Providers + +------+ + | Care Cane Flume Chute Operator Name | Role | Phone | + +------+ + | Deondre Landis MD | PCP | | + +------+ + Reason for Visit + + + | Reason | Comments | + + + | Feeding Tube Fell | | | Out | | + + + Encounter Details +--------+ + + + + | Date | Type | Department | Care Team | Description | +--------+ + + + + | 04/28/ | Emergency | [facility] Emergency | | | | 2014 | | Department [address] | | | | | | [facility] | | | | | | [facility] | | | | | | [place], [place] | | | | | | [address] | | | | | | [phone] | | | +--------+ + + + [...] + + + | Blood Pressure | 131/58 | 04/28/2015 6:05 PM | | | | | PDT | | + + + + + | Pulse | 71 | 04/28/2015 6:05 PM | | | | | PDT | | + + + + + | Temperature | 36.8 C (98.2 F) | 04/28/2015 6:05 PM | | | | | PDT | | + + + + + | Respiratory Rate | 18 | 04/28/2015 6:05 PM | | | | | PDT | | + + + + + | Oxygen Saturation | 99% | 04/28/2015 6:05 PM | | | | | PDT | | + + + + + | Inhaled Oxygen | - | - | | | Concentration | | | | + + + + + | Weight | 74.4 kg (164 lb) | 04/28/2015 6:05 PM | | | | | PDT | | + + + + + | Height | - | - | | + + + + + | Body Mass Index | 23.53 | 04/25/2015 12:58 PM | | | | | PDT | | + + + + + documented in this encounter Medications at Time of Discharge + + + +---------+ + + | Medication | Sig | Dispensed | Refills | Start | End Date | | | | | | Date | | + + + +---------+ + + | aspirin chewable | Chew and swallow 81 | | 0 | 20 | | | (CHILDRENS ASPIRIN) | mg once daily. | | | 15 | | | 81 mg oral | | | | | | | tablet,chewable | | | | | | + + + +---------+ + + | atorvastatin 80 mg | 1 tablet by feeding | 1 | 0 | 20 | | | oral tablet | tube [...] | 1 | 04/11/20 | | | [id number] | tube route once | | | [...]
--- OUTSIDE RECORDS SUMMARY | ~2020-01-10 | XMS | Encounter Summary ---
Demographics + + + | Address | [address] | | | [place] [address] | + + + | Home Phone | | + + + | Preferred Language | Unknown | + + + | Marital Status | | + + + | Latter Day Affiliation | NON | + + + | Race | White | + + + | Ethnic Group | Not or | + + + Author + + + | Author | [facility] | + + + | Organization | [facility] | + + + | Address | Unknown | + + + | Phone | Unavailable | + + + Support + + + + + | Name | Relationship | Address | Phone | + + + + + | Selena Jimenez | ECON | [address] | | | | | [place] | | | | | [address] | | + + + + + | Ronny Rene | ECON | Unknown | | + + + + + | Char Woodard | ECON | Unknown | | + + + + + Care Team Providers + +------+ + | Care Hard Metals Engraver Hand Name | Role | Phone | + +------+ + | Deondre Landis MD | PCP | | + +------+ + Encounter Details +--------+ + + + + | Date | Type | Department | Care Team | Description | +--------+ + + + + | 01/13/ | Abstract | [facility] | Rubin Lorenzo | | | 2014 | | [place] [address] | MD Doris [address] [facility] | | | | | [facility] | [facility] | | | | | [facility] and | [place], [place] | | | | | [facility] [address] | [address] | | | | | [place], [place] | [phone] | | | | | [address] | | | | | | [phone] | | | +--------+ + + + [...]
--- OUTSIDE RECORDS SUMMARY | ~2020-01-10 | XMS | Encounter Summary ---
Demographics + + + | Address | [address] | | | [place] [address] | + + + | Home Phone | | + + + | Preferred Language | Unknown | + + + | Marital Status | | + + + | Spiritism Affiliation | NON | + + + | Race | White | + + + | Ethnic Group | Not or | + + + Author + + + | Author | [facility] | + + + | Organization | [facility] | + + + | Address | Unknown | + + + | Phone | Unavailable | + + + Support + + + + + | Name | Relationship | Address | Phone | + + + + + | Selena Jimenez | ECON | [address] | | | | | [place] | | | | | [address] | | + + + + + | Ronny Rene | ECON | Unknown | | + + + + + | Char Woodard | ECON | Unknown | | + + + + + Care Team Providers + +------+ + | Care Training Project Manager Name | Role | Phone | + +------+ + | Deondre Landis MD | PCP | | + +------+ + Encounter Details +--------+ + + + + | Date | Type | Department | Care Team | Description | +--------+ + + + + | 05/04/ | Abstract | [facility] | Vijay Akbar MD | | | 2018 | | [place] [address] | [address] | | | | | [facility] | [address] [place], | | | | | [facility] and | [place] [address] | | | | | [place] [address] | [phone] | | | | | [place], [place] | | | | | | [address] | | | | | | [phone] | | | +--------+ + + + [...]
--- OUTSIDE RECORDS SUMMARY | ~2020-01-10 | XMS | Encounter Summary ---
Demographics + + + | Address | [address] | | | [place] [address] | + + + | Home Phone | | + + + | Preferred Language | Unknown | + + + | Marital Status | | + + + | Roman Catholic Affiliation | Unknown | + + + | Race | Unknown | + + + | Ethnic Group | Unknown | + + + Author + + + | Author | [facility] | | | and [place] | + + + | Organization | [facility] | | | and [place] | + + + | Address | Unknown | + + + | Phone | Unavailable | + + + Support + + + + + | Name | Relationship | Address | Phone | + + + + + | Selena Jimenez | ECON | [id number] | | | | | [place] [address] | | + + + + + Care Team Providers + +------+ + | Care Oil Field Laborer Name | Role | Phone | + +------+ + | Mingo Burgos DO | PCP | | + +------+ + Reason for Visit + + + | Reason | Comments | + + + | Medication Refill | | + + + Encounter Details +--------+--------+ + + + | Date | Type | Department | Care Team | Description | +--------+--------+ + + + | 05/07/ | Refill | [facility] | Bernice Antonio, | Medication Refill | | 2012 | | CARDIOLOGY [address] | MD [address] | | | | | [place], | [place], | | | | | [place] [address] | [place] [address] | | | | | [phone] | [phone] | | | | | | | | +--------+--------+ + + + Social History + +-------+ [...] [place], | | | | | | [place] [address] | | | | | | [phone] | | | | | | | | +--------+---------+ + + + documented as of this encounter Visit Diagnoses Not on filedocumented in this encounter"
--- OUTSIDE RECORDS SUMMARY | ~2020-01-10 | XMS | Encounter Summary ---
Demographics + + + | Address | [address] | | | [place] [address] | + + + | Home Phone | | + + + | Preferred Language | Unknown | + + + | Marital Status | | + + + | Nondenominational Affiliation | NON | + + + [...] + + + + + | Selena Meredith | ECON | [address] | | | | | [place] | | | | | [phone] | | + + + + + | Ronny Rene | ECON | Unknown | | + + + + + | Char Woodard | ECON | Unknown | | + + + + + Care Team Providers + +------+ + | Care Boat Hoist Operator Helper Name | Role | Phone | + [...] + + + + | 03/27/ | Hospital | [facility] [address] | Vijay Akbar MD | | | 2015 - | Encounter | [place] Mailcode: | [address] | | | | | [id number] | Latesha Sol[place], | | | 04/[birth year]/ | | [place], | [place] [address] | | | 2015 | | [place] [address] | [phone] | | | | | [phone] | | | +--------+ + + + [...] + + + | Blood Pressure | 138/68 | 04/07/2015 5:07 AM | | | | | PDT | | + + + + + | Pulse | 75 | 04/07/2015 5:07 AM | | | | | PDT | | + + + + + | Temperature | 36.9 C (98.4 F) | 04/07/2015 5:07 AM | | | | | PDT | | + + + + + | Respiratory Rate | 22 | 04/07/2015 5:07 AM | | | | | PDT | | + + + + + | Oxygen Saturation | 93% | 04/07/2015 5:07 AM | | | | | PDT | | + + + + + | Inhaled Oxygen | - | - | | | Concentration | | | | + + + + + | Weight | 81.5 kg (179 lb 10.8 | 04/06/2015 5:02 AM | | | | oz) | PDT | | + + + + + | Height | 179.1 cm (5' 10.51") | 03/27/2015 6:03 AM | | | | | PDT | | + + + + + | Body Mass Index | 25.41 | 03/27/2015 6:03 AM | | | | | PDT | | + + + + + documented in this encounter Discharge Summaries Ale Gipson MD - 04/07/2015 6:55 AM PDTFormatting of this note might be different fr om the original. 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 Gastroduodenoscopy. 2. Laparoscopic transhiatal esophagectomy with a pyloromyotomy. 3. Laparoscopic jejunostomy tube placement. Reason for Admission, Significant Findings, Treatment, and Complications Brief Hospital Course Mr. Meredith underwent a transhiatal esophagectomy for treatment of esophageal cancer on 03/27. Rosy shen was doing well post-op except for tachycardia (treated with metoprolol). His left chest tu be was removed 04/01 (POD #3). On 04/02 (POD #4) when he was noted to have a discharge at his cervical incision concerning for anastomotic leak. His incision was opened and he returned t o the operating room for washout and debridement. A morales drain was placed to allow for dr ybarra. During this time, he remained hemodynamically stable and was without signs of system ic infection. He was started on IV antibiotics and chlorhexidine mouthwash and continued to do well. On 04/05 (POD #9), he transitioned to oral antibiotics (amoxicillin, bactrim) which he will continue outpatient, and his final chest tube was removed. Metoprolol was discontinu ed and he was remained normotensive; therefore his home BP medications (amlodipine, lisinopr il) have been held. Prior to discharge, he was tolerating cycled tube feeds at goal. He should continue PO antibiotics and mouthwash and his morales drain should be maintained until seen in clinic. An esophogram will be done at this time. He is to remain strict NPO. Discharge Medications: Current Discharge Medication List START taking these medications Details acetaminophen 650 mg/20.3 mL oral suspension 20.3 mL by feeding tube route every four hours for 30 days. Indications: Pain Qty: 3654 mL, Refills: 1 amoxicillin 250 mg/5 mL oral suspension for reconstitution 10 mL by feeding tube route thre e times daily for 4 days. Qty: 100 mL, Refills: 0 chlorhexidine 0.12 % mucous membrane mouthwash Take 15 mL by mouth every six hours for 3 da ys. Swish undiluted oral rinse around in mouth for 30 seconds, then spit. Do not swallow. I ndications: Mouth Infection Prevention Qty: 473 mL, Refills: 0 docusate sodium 50 mg/5 mL oral liquid 5 mL by feeding tube route two times daily for 30 da ys. Hold if > 2 bowel movements daily Indications: CONSTIPATION Qty: 300 mL, Refills: 1 enoxaparin 40 mg/0.4 mL subcutaneous syringe Inject 0.4 mL under the skin (SUBC) once daily in the evening for 24 days. Qty: 9.6 mL, Refills: 0 metoclopramide HCl (REGLAN) 10 mg oral tablet 0.5 tablets by feeding tube route every six h ours for 90 days. Indications: Gastric Motility Qty: 180 tablet, Refills: 0 aokwhtjjxtxc-vgej-okflkido oral liquid 15 mL by feeding tube route once daily for 30 days. Indications: Vitamin Deficiency Prevention Qty: 450 mL, Refills: 1 omeprazole 2 mg/mL oral suspension (compound) Give 20 mL by feeding tube route once daily f or 30 days. Qty: 600 mL, Refills: 1 ondansetron ODT (ZOFRAN ODT) 4 mg oral tablet,disintegrating Take 1 tablet by mouth every s ix hours as needed for nausea/vomiting. Qty: 30 tablet, Refills: 1 oxyCODONE, immediate release, 5 mg/5 mL oral solution 5 mL by feeding tube route every six hours as needed for moderate pain. Qty: 250 mL, Refills: 0 polyethylene glycol 17 gram/dose oral powder Dissolve 1 capful (17 g) in 4 to 8 ounces of l iquid and give by feeding tube route once daily for 30 days. Hold for more than 2 bowel move ments daily. Qty: 527 g, Refills: 1 simethicone 40 mg/0.6 mL oral drops,suspension 0.6 mL by feeding tube route every six hours for 30 days. Qty: 72 mL, Refills: 1 trimethoprim-sulfamethoxazole 160-800 mg oral tablet Give 2 tablets by feeding tube route t wo times daily for 3 days. Qty: 16 tablet, Refills: 0 CONTINUE these medications which have CHANGED or have new prescriptions Details aspirin chewable 81 mg oral tablet,chewable 1 tablet by feeding tube route once daily. Qty: 1 tablet, Refills: 0 atorvastatin 80 mg oral tablet 1 tablet by feeding tube route once daily. Qty: 1 tablet, Refills: 0 STOP taking these medications amLODIPine 10 mg oral tablet Comments: Reason for Stopping: lisinopril 20 mg oral tablet Comments: Reason for Stopping: meloxicam 15 mg oral tablet Comments: Reason for Stopping: omeprazole (FIRST-OMEPRAZOLE) 2 mg/mL oral suspension for reconstitution Comments: Reason for Stopping: omeprazole 20 mg oral capsule,delayed release(DR/EC) Comments: Reason for Stopping: Tube Feeding Replete with fiber (or equivalent) goal rate 115ml/hr x 18 hours (6pm-12pm) If not tolerating cycle TF can resume 24 hour continuous tube feeding with goal rate 90ml/h r x 24 hours. Please hold for abdominal distention, nausea or vomiting. Diet NPO NPO- Nothing by mouth. You should not eat or drink any food or liquid at this time. NO ice chips or sips of water. Okay for mouth swabs. Activity Restrictions No heavy lifting - nothing greater than 10lbs. (a gallon of milk is 8lbs.) For 4-6 weeks; N o driving while on narcotics. Primary activity will be walking, no strenuous activity. Wound Care Neck site wound: please change dressing daily and PRN. Use gauze fluff and stocking to cove r. Wound Care Showering is ok, do not scrub incisions. Let clean water rinse soapy residue off. No submer rita in water (baths, Jacuzzi, swimming) while J-tube is in. Vital Signs Per policy Weigh daily: No. Follow Up Tests: None Vital Signs at discharge: BP: 138/68 mmHg (04/07/15506) Pulse: 75 (04/07/15506) Resp: 22 (04/07/15506) Weight: 81.5 kg (179 lb 10.8 oz) (04/06/15 050) Destination: Destination: [facility] Facility [facility] Condition on Discharge Stable Discharge POLST completed Full code Discharge Summary Completed?: Yes, 07 Apr 2015 Discharging Provider: ALE GIPSON MD Date Completed: 07 Apr 2015 Discharging Attending: Vijay Akbar MD documented in this encou nter Discharge Instructions Instructions Lizzette Krishna, PENNY - 04/01/2015 Your nurse caser with [facility] is [place]; she can be reached at [phone]. documented in this encounter Medications at Time [...] + + + +---------+ + + | amoxicillin 250 | 10 mL by feeding | 100 mL | 0 | 04/07/20 | | | mg/5 mL oral | tube route three | | | 15 | 5 | | suspension for | times daily for 4 | | | | | | reconstitution | days. | | | | | + + + +---------+ + + | chlorhexidine 0.12 | Take 15 mL by mouth | 473 mL | 0 | 04/07/20 | | | % mucous membrane | every six hours for | | | 15 | 5 | | mouthwashIndications | 3 days. Swish | | | | | | : mouth infection | undiluted oral rinse | | | | | | prevention | around in mouth for | | | | | | | 30 seconds, then | | | | | | | spit. Do not | | | | | | | swallow. | | | | | | | Indications: Mouth | | | | | | | Infection Prevention | | | | | + + + +---------+ + + | | Give 2 tablets by | 16 | 0 | 04/07/20 | | | trimethoprim-sulfame | feeding tube route | tablet | | 15 | 5 | | thoxazole 160-800 mg | two times daily for | | | | | | oral tablet | 3 days. | | | | | + + + +---------+ + + documented as of this encounter Progress Notes Mikayla Grayson RN - 04/07/2015 12:09 PM PDTReport called to nurse [facility]up[facility]. [phone]. Ale Conrad MD - 04/06/2015 9:01 AM PDTFormatting of this note might be different f rom the original. Red surgery S: TF cycled overnight without incident 2 BM Pain well controlled O: Last Vitals: BP 138/66 | Pulse 69 | Temp 37.1 C (98.8 F) | RR 18 | Ht 1.791 m (5' 10.51 ") | Wt 81.5 kg (179 lb 10.8 oz) | SpO2 94% | BMI 25.41 kg/(m^2) Gross per 24 hour Intake 3530 ml Output 3150 ml Net + 380 ml UOP 3150 (1.6 ml/kg/hr) General: Alert, oriented, NAD Lung: Breathing even, unlabored on room air. CT incisions c/d/i HEENT: Neck incision intact - no surrounding erythema. [place] with mucoid output. Heart: RRR, no m/r/g Abd: Abd soft, NTND, incisions c/d/i with stable ecchymoses CBC w/ diff: Last 72 hours (or 3 results): Lab Results Component Value Date WBC 14.76 04/06/2015 HB 9.1 04/06/2015 HCT 27.6 04/06/2015 PLT 411 04/06/2015 MCV 92.3 04/06/2015 RDW 45.3 04/06/2015 Chemistries: Last 72 hours (or 3 results): Lab Results Component Value Date NA 139 04/06/2015 K 4.1 04/06/2015 CL 106 04/06/2015 BICARB 27 04/06/2015 BUN 14 04/06/2015 CR 0.93 04/06/2015 GLU 119 04/06/2015 CA 8.9 04/06/2015 ANIONGAP 6 04/06/2015 ANIONALBCOR 11 04/06/2015 Culture from neck wound (04/02) pos for: -- Citrobacter freundii (R: Amox, Amp, Cefazolin; S: CTX, Cipro, Gent, Zosyn, Tobra, TMP/SM X), Strep mitis, Strep anginosus CXR 04/05 13:13: No pneumo s/p removal of chest tube A/P: POD#10 Trans-hiatal esophagectomy, pyloromyotomy, J tube placement, bilateral Chest tube pl acement, colopexy POD # Washout, L neck Anastomotic leak - Continue NPO x 7 days, then will repeat swallow 04/10 prior to clinic. Ma intain morales drains. WBC mildly improved. Abx: Bactrim, amoxicillin per J-Tube for coverage of citrobacter and strep species. Monit or output. DC Fluconazole Continue Peridex mouthwash Continue to cycle TF at goal of 115ml/hr, hold for intolerance Pain control w/ FT tylenol On home ASA, statin. Holding amlodipine, lisinopril as pt remains normotensive. Enoxaparin PPI Plan for D/c to SNF tomorrow Patient seen with Dr. Akbar. Ale Gipson MD [facility] Surgery R5 Pager [phone] lark, Ale Lester MD - 04/05/2015 9:29 AM PDT Red surgery S: TF cycled overnight (115ml/hr), complicated by abdominal distention. TF held. Symptoms impr bernarda with passage of flatus. TF restarted at goal rate without further incident. Large BM this am Pain well controlled with tylenol HR and BP wnl in absence of metop Remaining CT removed on AM rounds O: Last Vitals: BP 149/66 | Pulse 82 | Temp 36.8 C (98.2 F) | RR 16 | Ht 1.791 m (5' 10.51 ") | Wt 82.2 kg (181 lb 3.5 oz) | SpO2 93% | BMI 25.63 kg/(m^2) Intake/Output Summary (Last 24 hours) at 04/05/15 0935 Last data filed at 04/05/15 09 Gross per 24 hour Intake 1470 ml Output 2655 ml Net -[address] 330 UOP 2725 (1.4 ml/kg/hr) General: Alert, oriented, NAD Lung: Breathing even, unlabored on room air. Cough is getting stronger. Sites of prior CT c lean and dry with sutures intact. Good aeration throughout. HEENT: Neck incision intact - no surrounding erythema. [place] with mucoid output, air leak with swallow. Heart: RRR, no m/r/g Abd: Abdominal incisions intact, abd soft, NT, mild distention CBC w/ diff: Last 72 hours (or 3 results): Lab Results Component Value Date WBC 15.76 04/05/2015 HB 9.2 04/05/2015 HCT 27.9 04/05/2015 PLT 422 04/05/2015 MCV 92.4 04/05/2015 RDW 45.1 04/05/2015 Chemistries: Last 72 hours (or 3 results): Lab Results Component Value Date NA 139 04/05/2015 K 3.5 04/05/2015 CL 106 04/05/2015 BICARB 28 04/05/2015 BUN 15 04/05/2015 CR 0.88 04/05/2015 GLU 145 04/05/2015 CA 8.7 04/05/2015 ANIONGAP 5 04/05/2015 ANIONALBCOR 10 04/05/2015 Culture from neck wound (04/02) pos for: -- Citrobacter freundii (R: Amox, Amp, Cefazolin; S: CTX, Cipro, Gent, Zosyn, Tobra, TMP/SM X), Strep mitis, Strep anginosus CXR this am demonstrating further resolution of R-sided pleural effusion, improved pulmonar y edema A/P: POD#9 Trans-hiatal esophagectomy, pyloromyotomy, J tube placement, bilateral Chest tube mario cement, colopexy POD #3 Washout, L neck Anastomotic leak - Continue NPO x 7 days, then will repeat swallow 04/10. Maintain morales d rains. Abx: Stop IV zosyn. Start Bactrim per J Tube. Monitor output. Continue Fluconazole through tomorrow (day 5) then dc. Continue Peridex mouthwash Final chest tube removed; CXR scheduled for noon HR/BP appropriate off metop without arrhythmia. DC tele Continue to hold home amlodipine, lisinopril Continue to cycle TF at goal of 115ml/hr, hold for intolerance Pain control w/ FT tylenol K repleted On home ASA, statin. Enoxaparin PPI Will likely DC to SNF Tuesday. Patient seen with Dr. Akbar. Ale Gipson MD [facility] Surgery R5 Pager [phone] Gio Ramirez MD - 04/04/2015 8:59 AM PDT Red surgery Attending Dr Akbar S: Pain being controlled with PO meds Drainage on left neck. Breathing comfortably Alert and talkative O: BP 135/60 | Pulse 68 | Temp 36.8 C (98.2 F) | RR 18 | Ht 1.791 m (5' 10.51") | Wt 82.2 kg (181 lb 3.5 oz) | SpO2 93% | BMI 25.63 kg/(m^2) Intake/Output Summary (Last 24 hours) at 04/04/15 0859 Last data filed at 04/04/15 0800 Gross per 24 hour Intake 2920 ml Output 1685 ml Net 1235 ml UOP: 1150ml CT: 310ml serosang General: alert, oriented, NAD Lung: Breathing even, unlabored on room air. Cough is getting stronger HEENT: Neck incision intact - no surrounding erythema Heart: Chest tubes with SS output. No air leak. RRR Abd: Abdominal incisions intact, abd soft, NT, ND decrease CBC w/ diff: Last 72 hours (or 3 results): Lab Results Component Value Date WBC 14.01 04/04/2015 HB 9.5 04/04/2015 HCT 29.8 04/04/2015 PLT 398 04/04/2015 MCV 94.9 04/04/2015 RDW 46.3 04/04/2015 Chemistries: Last 72 hours (or 3 results): Lab Results Component Value Date NA 141 04/04/2015 K 4.1 04/04/2015 CL 106 04/04/2015 BICARB 30 04/04/2015 BUN 19 04/04/2015 CR 0.97 04/04/2015 GLU 136 04/04/2015 CA 9.3 04/04/2015 ANIONGAP 5 04/04/2015 ANIONALBCOR 10 04/04/2015 A/P: POD#8 Trans-hiatal esophagectomy, pyloromyotomy, J tube placement, bilateral Chest tube mario cement, colopexy POD #2 neck washout Pain control w/ FT medications Chest tube in place with increased output. Serosanguinous, Non chylous Anastomotic leak - Continue NPO x 7 days, then will repeat swallow. Maintain morales drains . May go home before repeat swallow (versus SNF) Broad spectrum abx for anastomotic leak Cycle tube feeds today D/C metoprolol - can stop telemetry 24hrs after last metoprolol dose if no arrhthymias Resume aspirin 81mg Lasix 20mg once today Enoxaparin PPI Gio Lowery MD [facility], General Surgery R-1 P: [phone] Ale Gerardo MD - 04/03/2015 4:24 PM PDT Red surgery Attending Dr Raffy Seymour: Left neck washed out yesterday. Drainage on left neck. Breathing comfortably Alert and talkative O: BP 95/49 | Pulse 70 | Temp 36.7 C (98.1 F) | RR 18 | Ht 1.791 m (5' 10.51") | Wt 82.2 k g (181 lb 3.5 oz) | SpO2 93% | BMI 25.63 kg/(m^2) Intake/Output Summary (Last 24 hours) at 03/31/[address](R): 170 ml serous General: alert, oriented, NAD Lung: Breathing even, unlabored on room air. 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 No air leak. RRR Abd: Abdominal incisions intact, abd soft, NT, ND decrease CBC w/ diff: Last 72 hours (or 3 results): Lab Results Component Value Date WBC 15.71 04/03/2015 HB 8.9 04/03/2015 HCT 27.5 04/03/2015 PLT 317 04/03/2015 MCV 95.2 04/03/2015 RDW 46.9 04/03/2015 Chemistries: Last 72 hours (or 3 results): Lab Results Component Value Date NA 141 04/03/2015 K 4.0 04/03/2015 CL 109 04/03/2015 BICARB 27 04/03/2015 BUN 18 04/03/2015 CR 1.01 04/03/2015 GLU 150 04/03/2015 CA 8.5 04/03/2015 ANIONGAP 5 04/03/2015 ANIONALBCOR 10 04/03/2015 A/P: POD#6 Trans-hiatal esophagectomy, pyloromyotomy, J tube placement, bilateral Chest tube mario cement, colopexy POD #1 neck washout Pain control epidural -> per FT medications today Chest tube in place due to output. Non chylous. Anastomotic leak - confirmed on imaging. Continue NPO x 7 days, then will repeat swallow. M aintain morales drains. May go home before repeat swallow (versus SNF) Broad spectrum abx for anastomotic leak Cycle tube feeds tomorrow. Enoxaparin PPI Seen with Dr. Akbar today. Updated sons at bedside. Ale Gipson MD R5 Chief resident 15 4:32 PM Celso Lopez NP - 04/03/2015 1:15 PM PDTPain fairly well controlled on ora l medications. Epidural catheter discontinued, tip intact. Patient tolerated the procedure w ell. CELSO PALMER, MSN, ACNP-BC Nurse Practitioner [facility] [address] [place] [address] Celso Lopez NP - 7:52 AM PDT INPATIENT ADULT PAIN SERVICE NEURAXIAL BLOCK PROGRESS NOTE 04/03/2015 Author: CELSO PALMER NP POD#7. Status post: Trans-hiatal esophagectomy, pyloromyotomy, J tube placement, bilateral Chest tube placement, colopexy Past Medical History Diagnosis Date GERD (gastroesophageal reflux disease) HTN (hypertension) Cheema's esophagus Knee pain, chronic Back pain, chronic FL (myocardial infarction) s/p CABG x 2 Hearing loss bialteral hearing aids Interval events since last APS visit: -Sent to OR for anastomotic leak washout -Pain is well-controlled Mr. Meredith complains of neck incision pain and neck pain. His pain score at rest is 0/10. With activity, his pain score is 1/10. Specific activitie s that exacerbate Mr. Meredith's pain include most activities. Mr. Meredith is satisfied with curre nt level of pain. History of chronic or preoperative pain: yes: Location: Abdominal Prior to hospitalization: No significant chronic use of opioids at home ROS/Side Effects: General: negative. Nausea/Vomiting: None Pruritus: None Numbness/Weakness: None Low BP: none Dizziness: None Sedation: None Activity level: Out of bed Diet: NPO/sips/ice chips Medications: Scheduled Medications Medication Dose Route Frequency Last Rate acetaminophen (TYLENOL) oral suspension 650 mg 650 mg feeding tube Q4H atorvastatin (LIPITOR) tablet 80 mg 80 mg feeding tube DAILY bisacodyl (DULCOLAX) suppository 10 mg 10 mg rectal DAILY docusate sodium liquid 50 mg 50 mg feeding tube BID fluconazole IV 400 mg IN NaCl (RTU) 400 mg intravenous Q24H lidocaine (LIDODERM) 5 %(700 mg/patch) patch 2 patch 2 patch transdermal Q24H metoclopramide HCl (REGLAN) injection 5 mg 5 mg intravenous Q6H metoprolol tartrate 10 mg/mL suspension (compound) 12.5 mg 12.5 mg feeding tube BID yvyfzqfmbhkp-mzmg-bnuvjhjy (CEROVITE) liquid 15 mL 15 mL feeding tube DAILY omeprazole (PRILOSEC) oral suspension (compound) 40 mg 40 mg feeding tube DAILY piperacillin-tazobactam (ZOSYN) IV 3.375 g 3.375 g intravenous Q8H polyethylene glycol (MIRALAX) powder 17 g 17 g feeding tube DAILY simethicone (MYLICON) suspension 40 mg 40 mg feeding tube Q6H PRN Medications Medication Dose Route Frequency Last Rate albuterol 0.083% (PROVENTIL,VENTOLIN) 2.5 mg /3 mL (0.083 %) nebulizer solution 2.5 mg 2.5 mg inhalation Q4H PRN dextrose 50 % IV 25 mL 25 mL intravenous PRN glucagon (GLUCAGEN) injection 1 mg 1 mg intramuscular PRN glucose chewable tablet 16 g 16 g oral PRN HYDROmorphone (DILAUDID) injection 0.2-0.5 mg 0.2-0.5 mg intravenous Q6H PRN labetalol (TRANDATE) IV injection 10-40 mg 10-40 mg intravenous PRN ondansetron (ZOFRAN) injection 4 mg 4 mg intravenous Q12H PRN oxyCODONE (immediate release) (ROXICODONE) liquid 5-15 mg 5-15 mg feeding tube Q3H PRN Continuous Medications Medication Dose Route Frequency Last Rate bupivacaine (PF) 0.1 %, HYDROmorphone 10 mcg/mL in NaCl 0.9 % epidural infusion epidu ral CONTINUOUS 3 mL/hr at 04/03/15 0722 Type: Epidural Rate: 3 mL/hour Anticoagulants: No Lab Results Component Value Date INRPT 0.87* 03/26/2015 PLT 317 04/03/2015 Opioids: None Other analgesics: None Other psychoactive medications: None Physical Exam: Last Vitals:BP 112/47 | Pulse 66 | Temp 37.2 C (99 F) | RR 18 | Ht 1.791 m (5' 10.51") | Wt 82.2 kg (181 lb 3.5 oz) | SpO2 94% | BMI 25.63 kg/(m^2) 24 hour Vitals min/max : Systolic (24hrs), Av mmHg, Min:107 mmHg, Max:129 mmHg Diastolic (24hrs), Av mmHg, Min:47 mmHg, Max:64 mmHg Pulse Min: 66 Max: 90 Temp Min: 36.7 C (98.1 F) Max: 37.2 C (99 F) Resp Min: 14 Max: 18 SpO2 Min: 92 % Max: 97 % General Appearance and Neurological Examination: Mental Status: Alert Orientation: Oriented Sensory Level: intact Motor: bilateral lower extremity(ies) -- No block: full flexion and extension of hip, knee and foot Neuraxial Catheter: Location: T6-T7;depth at skin 12.5 cm Dressing: Intact and Redressed Exit Site: Clean, Dried blood and Non-tender Chest tube in place. and NG/OG tube in place. Assessment: Mr. 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 Mr. Meredith rates his pain relief as good. My personal assessment is concordant with this evaluation Joyner status: Epidural: at thoracic level; If Joyner is in place, it may be removed if deem ed appropriate by primary care team Diagnosis: 1. Acute postoperative midline incisional pain 2. Distal esophageal adenocarcinoma 3. Cheema's esophagus My treatment plan is: *Transition to oral pain medications via J-tube *Start APAP elixir via J-tube *Start Oxycodone elixir via J-tube *Start Lidoderm patch TD *Start Hydromorphone IV PRN *Will return to pull epidural catheter this PM *APS will sign off after epidural cathter is pulled I discussed our findings and recommendations with primary care team provider Jennifer Saldaña NP . For today's evaluation, I have included my personal review of Mr. Meredith's history and physic al examination. I also used the following components in my medical decision making: Review and summary of old medical records (source: [facility]), as summarized in the body of the note. Personal review of laboratory results. CELSO PALMER, MSN, ACNP- Nurse Practitioner [facility] [address] [place] [address] Bebe Hung MD - 04/02/2015 7:22 PM PDTGeneral Surgery: Night Coverage Post-op Inpatient Progress Note Author: Bebe Baldwin MD Attending: Vijay Akbar MD Date: 04/02/2015 (hospital day 6) Patient: Junaid Meredith Procedure: L neck incision and drainage Subjective: Pt seen at bedside with family, resting comfortably post op. Denies CP, SOB, N/ V. Pain: well controlled. Ambulation: OOB to bathroom Vitals: BP 122/64 | Pulse 78 | Temp 37 C (98.6 F) | RR 18 | Ht 1.791 m (5' 10.51") | Wt 82.2 kg (181 lb 3.5 oz) | SpO2 94% | BMI 25.63 kg/(m^2) I/O: UOP 225 ml since leaving OR at 5pm Physical Exam: Gen: Alert and oriented, NAD Neck: + L dressing in place, small SS streaking. minimal surrounding erythema. Resp: Unlabored, bibasilar crackles. R chest tube in place. CV: RRR, no m/r/g Abd: Soft, nontender, + mild distention. Incision free of erythema, induration or exudate. J tube in place. Ext: WWP no c/c/e Assessment and Plan: Junaid Meredith is 75 y.o. male POD 3 s/p trans-hiatal esophagectomy c/b ?anastamotic leak vs infection, now POD 0 s/p L neck incision and drainage, now on zosyn. 1. Neuro: Appreciate APS recs. Continue pain management with epidural 2. CV: HD stable, w/o tachycardia. Continue metoprolol 12.5BID for htn, prophylactic amioda marily. Continue to hold home asa, amlodipine and alvaro- inhibitor. 3. Pulm: Sat 94% on 3L facemask, + bibasilar crackles. Encourage IS. Continue R Chest tube to water seal. 4. GI: strict NPO-meds via J tube only. Continue TFs with goal of 90cc/hr. Continue schedu led reglan and prn anti-emetics. Plan for gastrografin swollow tomorrow to evaluate for leak . 5. ID: Pt with anastomotic leak vs neck infection, now s/p I&D. Continue zosyn. 6. PPX: VTE, GI omeprazole 7. Encourage IS 8. Care as per primary team 9. Dispo: acute care Bebe Baldwin MD Pager: [phone] lark, Ale Lester MD - 04/02/2015 7:41 AM PDTPatient with gastric contents draining from neck incision c/w anas tomotic leak. WBC 17, no other signs of sepsis. Will open neck incision at bedside with local, start zosyn, stop tube feeds (stopped at 072 0 AM). Not receiving anything PO. OR for washout today. Raffy available after 0900. Discussed with Dr. Rene. Ale iGpson MD R5 Chief Resident Electronically signed by Ale Gipson MD at 015 7:44 AM PDTOng, Celso Robins NP - 04/02/2015 7:36 AM PDT INPATIENT ADULT PAIN SERVICE NEURAXIAL BLOCK PROGRESS NOTE 04/02/2015 Author: CELSO PALMER NP POD# 6. Status post: Trans-hiatal esophagectomy, pyloromyotomy, J tube placement, bilater al Chest tube placement, colopexy Past Medical History Diagnosis Date GERD (gastroesophageal reflux disease) HTN (hypertension) Cheema's esophagus Knee pain, chronic Back pain, chronic [place] (myocardial infarction) s/p CABG x 2 Hearing loss bialteral hearing aids Interval events since last APS visit: -Patient with gastric contents draining from neck incision c/w anastomotic leak -Pain is well-controlled Mr. Meredith complains of bilateral chest wall pain. His pain score at rest is 0/10. With activity, his pain score is 1/10. Specific activitie s that exacerbate Mr. Meredith's pain include most activities. Mr. Meredith is satisfied with curre nt level of pain. History of chronic or preoperative pain: Yes Location: Abdominal Prior to hospitalization: No significant chronic use of opioids at home ROS/Side Effects: General: negative. Nausea/Vomiting: None Pruritus: None Numbness/Weakness: None Low BP: None Dizziness: None Sedation: None Activity level: Out of bed Diet: NPO/sips/ice chips Medications: Scheduled Medications Medication Dose Route Frequency Last Rate atorvastatin (LIPITOR) tablet 80 mg 80 mg feeding tube DAILY bisacodyl (DULCOLAX) suppository 10 mg 10 mg rectal DAILY docusate sodium liquid 50 mg 50 mg feeding tube BID metoclopramide HCl (REGLAN) injection 5 mg 5 mg intravenous Q6H metoprolol tartrate 10 mg/mL suspension (compound) 12.5 mg 12.5 mg feeding tube BID ewqpjldyvozx-vqqy-upskxlyx (CEROVITE) liquid 15 mL 15 mL feeding tube DAILY omeprazole (PRILOSEC) oral suspension (compound) 40 mg 40 mg feeding tube DAILY piperacillin-tazobactam (ZOSYN) IV 3.375 g 3.375 g intravenous Q8H polyethylene glycol (MIRALAX) powder 17 g 17 g feeding tube DAILY simethicone (MYLICON) suspension 40 mg 40 mg feeding tube Q6H PRN Medications Medication Dose Route Frequency Last Rate albuterol 0.083% (PROVENTIL,VENTOLIN) 2.5 mg /3 mL (0.083 %) nebulizer solution 2.5 mg 2.5 mg inhalation Q4H PRN dextrose 50 % IV 25 mL 25 mL intravenous PRN glucagon (GLUCAGEN) injection 1 mg 1 mg intramuscular PRN glucose chewable tablet 16 g 16 g oral PRN labetalol (TRANDATE) IV injection 10-40 mg 10-40 mg intravenous PRN LORazepam (ATIVAN) tablet 0.5-3 mg 0.5-3 mg oral PRN ondansetron (ZOFRAN) injection 4 mg 4 mg intravenous Q12H PRN Continuous Medications Medication Dose Route Frequency Last Rate bupivacaine (PF) 0.1 %, HYDROmorphone 10 mcg/mL in NaCl 0.9 % epidural infusion epidu ral CONTINUOUS 3 mL/hr at 04/02/15 0924 Type: Epidural Rate: 3 mL/hour Anticoagulants: No Lab Results Component Value Date INRPT 0.87* 03/26/2015 PLT 252 04/02/2015 Opioids: None Other analgesics: None Other psychoactive medications: None Physical Exam: Last Vitals:BP 104/50 | Pulse 81 | Temp 37 C (98.6 F) | RR 18 | Ht 1.791 m (5' 10.51") | Wt 82.2 kg (181 lb 3.5 oz) | SpO2 97% | BMI 25.63 kg/(m^2) 24 hour Vitals min/max : Systolic (24hrs), Av mmHg, Min:92 mmHg, Max:125 mmHg Diastolic (24hrs), Av mmHg, Min:50 mmHg, Max:99 mmHg Pulse Min: 73 Max: 92 Temp Min: 37.1 C (98.8 F) Max: 37.6 C (99.7 F) Resp Min: 18 Max: 18 SpO2 Min: 92 % Max: 97 % General Appearance and Neurological Examination: Mental Status: Alert Orientation: Oriented Sensory Level: intact Motor: bilateral lower extremity(ies) -- No block: full flexion and extension of hip, knee and foot Neuraxial Catheter: Location: T6-T7;depth at skin 12.5 cm Dressing: Intact, Needed support, Redressed and Catheter exit exposed Exit Site: Clean, Dried blood and Non-tender Chest tube in place. and NG/OG tube in place. Assessment: Mr. 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 Apparently there is evidence of anastomotic leak from neck incision. Mr. Meredith is scheduled for washout by Dr. Akbar today. Patient is kept NPO. Mr. Meredith rates his pain relief as good. My personal assessment is concordant with this evaluation Joyner status: Epidural: at thoracic level; If Joyner is in place, it may be removed if deem ed appropriate by primary care team Diagnosis: 1. Acute postoperative midline incisional pain 2. Distal esophageal adenocarcinoma 3. Cheema's esophagus My treatment plan is: *Continue neuraxial infusion, titrate infusion as needed *Monitor for worsening leukocytosis or temperature spike *Continue to monitor epidural catheter exit site for discharge, erythema, pain I discussed our findings and recommendations with primary care team provider, Greg Gunn. For today's evaluation, I have included my personal review of Mr. Meredith's history and physic al examination. I also used the following components in my medical decision making: Review and summary of old medical records (source: [facility]), as summarized in the body of the note. Personal review of laboratory results. CELSO PALMER, MSN, ACNP- Nurse Practitioner [facility] [address] [place] [id number] Bulmaro Pitt MD,MPH - 04/01/2015 6:36 PM PDTProcedure Note: Left Chest Tube Removal Name: Junaid Meredith 04/01/2015 Time: 8:45 am Performed By: Dr. Bulmaro Hernandez, Era Posada, MS4 Procedure Details: The patient was placed in the appropriate position. The sutures securin g the chest tube were removed. The left chest tube was removed without difficulty while the patient was taking a maximal deep breath. Skin was closed with the pre-existing nylon suture . Petroleum gauze and dressing applied and secured using tape. Findings: There were no changes to vital signs. Patient tolerated the procedure well. CXR at 13:37 demonstrating no pneumothorax. etcu, Aura, ACNP - 04/01/2015 10:24 AM PDTFormatting of this not e might be different from the original. Red surgery Attending Dr Akbar I: No issues overnight Continues on 4L NC S: No BM, + gas No pain in abdomen No CIWA issues O: BP 112/52 | Pulse 75 | Temp 36.8 C (98.2 F) | RR 18 | Ht 1.791 m (5' 10.51") | Wt 82.2 kg (181 lb 3.5 oz) | SpO2 89[RN notified[% | BMI 25.63 kg/(m^2) Intake/Output Summary (Last 24 hours) at 03/31/15 1138 Last data filed at 03/31/15 0615 Gross per 24 hour Intake 1506.45 ml Output 1865 ml Net -358.[address](R): 180ml serous CT(L): 150ml serous Physical Exam: Gen: awake, alert, NAD HENT: neck incision c/d/i Pulm: breathing comfortably on room air, Chest tubes with SS output. No air leak. CV: RRR, extremities warm and well perfused GI: soft, non-tender, mildly distended, J-tube in place with minimal drainage noted, Incisi ons C/D/I CBC w/ diff: Last 72 hours (or 3 results): Recent Labs 03/29/15 0638 03/30/15 0442 03/31/15 0519 WBC 24.61* 21.51* 16.78* HB 10.8* 9.5* 8.7* HCT 32.9* 28.2* 26.5* PLT 188 161 198 Chemistries: Last 72 hours (or 3 results): Recent Labs 03/29/15 0638 03/30/15 0442 03/31/15 0005 03/31/15 0519 03/31/15 0745 NA 139 -- 143 -- -- 141 -- K 3.9 -- 3.4 -- -- 3.3* -- CL 107 -- 111* -- -- 106 -- BICARB 27 -- 25 -- -- 27 -- BUN 18 -- 20 -- -- 23* -- CR 0.89 -- 0.77 -- -- 0.98 -- GLU 85 < > 75 < > 92 78 79 CA 8.7 -- 8.1* -- -- 8.6 -- MG 2.0 -- 1.8 -- -- 1.9 -- PO4 1.7* -- 1.3* -- -- 1.6* -- < > = values in this interval not displayed. A/P: POD#5 trans-hiatal esophagectomy, pyloromyotomy, J tube placement, bilateral Chest tube mario cement, colopexy Neuro - intact, pain control. Hx hearing loss, back pain, frequent EtOH use. At risk for p ost-op delirium. Epidural, APS managing -Plan to DC later today when both R and L chest tube are discontinued -Will page APS when both chest tubes are out--appreciate their assistance. Sleep hygiene Hearing aids Holding home Meloxicam (back pain) CIWA monitoring CV - BPs wnl. Tachycardia improved. Hx CAD/FL - s/p CABG x 2 in 2007, HTN, HLD. Metoprolol 12.5mg BID for HTN and rate control Continue telemetry until POD6 Continue Amio PFT (last day 04/02) Amio level pending Labetalol PRN Holding home amlodipine & lisinopril May start amlodipine PFT if HTN continues Home atorvastatin Pulm - oxygen requirement likely 2/2 atelectasis, weak cough, smoking hx. -Left chest tube discontinued this AM by Red[facility]urg -follow up chest xray today at 1230pm -Right chest tube plan for discontinued this afternoon by [facility] Pulm toilet Wean oxygen as able: IS, OOB, cough/deep breathing exercises RT on lopez Continue CTs GI - s/p esophagectomy - esophageal CA. Hx GERD. No BM--suppository today and daily to aid BM. Continue colace BID and miralax. Simethicone for bloating. Sip test tomorrow 04/02 Esophogram 04/03 Achieve tube feed goal of 90ml/hr Meds via J-tube PPI per J tube Analgesia: oxycodone PRN, acetaminophen PRN Anti-emetics PRN Scheduled Reglan IV Cerovite PT/OT OOB to chair TID FEN Decrease MIVF Replace electrolytes PRN Creatinine trending up, holding lasix Remove Joyner Urine cultures: no growth Endo - CBGs wnl MSK PT/OT Prophy: SCDs, HOB 30, Lovenox, PPI Dispo - Anticipate DC Tuesday, will need TF set up for home and preauth for SC enoxaparin SAMANTHA GUNN [address] [facility] Mailcode: [facility] [place] [address] Celso Lopez NP - 8:45 AM PDT INPATIENT ADULT PAIN SERVICE NEURAXIAL BLOCK PROGRESS NOTE 04/01/2015 Author: CELSO PALMER NP POD#5. Status post: Trans-hiatal esophagectomy, pyloromyotomy, J tube placement, bilateral Chest tube placement, colopexy Past Medical History Diagnosis Date GERD (gastroesophageal reflux disease) HTN (hypertension) Cheema's esophagus Knee pain, chronic Back pain, chronic [place] (myocardial infarction) s/p CABG x 2 Hearing loss bialteral hearing aids Interval events since last APS visit: -No acute event overnight -One Chest tube removed Mr. Meredith complains of bilateral chest wall pain. His pain score at rest is 0/10. With activity, his pain score is 2/10. Specific activitie s that exacerbate Mr. Meredith's pain include most activities. Mr. Meredith is satisfied with curre nt level of pain. History of chronic or preoperative pain: Yes: Abdominal Prior to hospitalization: No significant chronic use of opioids at home ROS/Side Effects: General: negative. Nausea/Vomiting: None Pruritus: None Numbness/Weakness: None Low BP: None Dizziness: None Sedation: None Activity level: Out of bed Diet: NPO/sips/ice chips Medications: Scheduled Medications Medication Dose Route Frequency Last Rate amiodarone (CORDARONE) tablet 400 mg 400 mg feeding tube TID aspirin chewable tablet 81 mg 81 mg feeding tube DAILY atorvastatin (LIPITOR) tablet 80 mg 80 mg feeding tube DAILY docusate sodium liquid 50 mg 50 mg feeding tube BID enoxaparin (LOVENOX) injection 40 mg 40 mg subcutaneous QPM metoclopramide HCl (REGLAN) injection 5 mg 5 mg intravenous Q6H metoprolol tartrate 10 mg/mL suspension (compound) 12.5 mg 12.5 mg feeding tube BID lovrxftjnerg-jyfg-rzskqmfh (CEROVITE) liquid 15 mL 15 mL feeding tube DAILY omeprazole (PRILOSEC) oral suspension (compound) 40 mg 40 mg feeding tube DAILY polyethylene glycol (MIRALAX) powder 17 g 17 g feeding tube DAILY PRN Medications Medication Dose Route Frequency Last Rate albuterol 0.083% (PROVENTIL,VENTOLIN) 2.5 mg /3 mL (0.083 %) nebulizer solution 2.5 mg 2.5 mg inhalation Q4H PRN bisacodyl (DULCOLAX) suppository 10 mg 10 mg rectal DAILY PRN dextrose 50 % IV 25 mL 25 mL intravenous PRN glucagon (GLUCAGEN) injection 1 mg 1 mg intramuscular PRN glucose chewable tablet 16 g 16 g oral PRN labetalol (TRANDATE) IV injection 10-40 mg 10-40 mg intravenous PRN LORazepam (ATIVAN) tablet 0.5-3 mg 0.5-3 mg oral PRN ondansetron (ZOFRAN) injection 4 mg 4 mg intravenous Q12H PRN Continuous Medications Medication Dose Route Frequency Last Rate bupivacaine (PF) 0.1 %, HYDROmorphone 10 mcg/mL in NaCl 0.9 % epidural infusion epidu ral CONTINUOUS 3 mL/hr at 03/31/15 1930 Type: Epidural Rate: 3 mL/hour Anticoagulants: Enoxaparin 40 mg subcutaneous daily, last dose given yesterday at 2200 hrs . Lab Results Component Value Date INRPT 0.87* 03/26/2015 PLT 243 04/01/2015 Opioids: None Other analgesics: None Other psychoactive medications: None Physical Exam: Last Vitals:BP 112/52 | Pulse 75 | Temp 36.8 C (98.2 F) | RR 18 | Ht 1.791 m (5' 10.51" ) | Wt 82.2 kg (181 lb 3.5 oz) | SpO2 89[RN notified[% | BMI 25.63 kg/(m^2) 24 hour Vitals min/max : Systolic (24hrs), Av mmHg, Min:94 mmHg, Max:125 mmHg Diastolic (24hrs), Av mmHg, Min:45 mmHg, Max:61 mmHg Pulse Min: 74 Max: 76 Temp Min: 36.6 C (97.9 F) Max: 37 C (98.6 F) Resp Min: 18 Max: 20 SpO2 Min: 89 % Max: 100 % General Appearance and Neurological Examination: Mental Status: Alert Orientation: Oriented Sensory Level: intact Motor: bilateral lower extremity(ies) -- No block: full flexion and extension of hip, knee and foot Neuraxial Catheter: Location: T6-T7;depth at skin 12.5 cm Dressing: Intact and Redressed Exit Site: Clean and Non-tender Chest tube in place. and NG/OG tube in place. Assessment: Mr. 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 Mr. Meredith rates his pain relief as good. My personal assessment is concordant with this evaluation Joyner status: Epidural: at thoracic level; If Joyner is in place, it may be removed if deem ed appropriate by primary care team Diagnosis: 1. Acute postoperative midline incisional pain 2. Distal esophageal adenocarcinoma 3. Cheema's esophagus My treatment plan is: *Continue neuraxial infusion, titrate infusion as needed *Will discontinue neuraxial infusion once the remaining CT is pulled later this PM I discussed our findings and recommendations with primary care team provider Jennifer Saldaña NP . For today's evaluation, I have included my personal review of Mr. Meredith's history and physic al examination. I also used the following components in my medical decision making: Review a nd summary of old medical records (source: [facility]), as summarized in the body of the note. Personal review of radiological images. Personal review of laboratory results. CELSO PALMER, MSN, ACNP- Nurse Practitioner [facility] [address] [place] [id number] Gio Ramirez MD - 0 03/31/2015 11:20 AM PDT Red surgery Attending Dr Akbar I: No issues overnight Small bowel movement yesterday S: No pain in abdomen No bloating Breathing comfortably Voided since Joyner removal No CIWA issues O: BP 111/54 | Pulse 74 | Temp 37 C (98.6 F) | RR 16 | Ht 1.791 m (5' 10.51") | Wt 86.3 kg (190 lb 4.1 oz) | SpO2 96% | BMI 26.9 kg/(m^2) Intake/Output Summary (Last 24 hours) at 03/31/15 1138 Last data filed at 03/31/15 0615 Gross per 24 hour Intake 1506.45 ml Output 1865 ml Net -358.[address](R): 300ml serous CT(L): 370ml serous General: alert, oriented, NAD Lung: Breathing even, unlabored on room air. 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 No air leak. RRR Abd: Abdominal incisions intact, abd soft, NT, ND decrease CBC w/ diff: Last 72 hours (or 3 results): Recent Labs 03/29/15 0638 03/30/1544103/31/15 0519 WBC 24.61* 21.51* 16.78* HB 10.8* 9.5* 8.7* HCT 32.9* 28.2* 26.5* PLT 188 161 198 Chemistries: Last 72 hours (or 3 results): Recent Labs 03/29/15 0638 03/30/15 0442 03/31/15 0005 03/31/15 0519 03/31/15 0745 NA 139 -- 143 -- -- 141 -- K 3.9 -- 3.4 -- -- 3.3* -- CL 107 -- 111* -- -- 106 -- BICARB 27 -- 25 -- -- 27 -- BUN 18 -- 20 -- -- 23* -- CR 0.89 -- 0.77 -- -- 0.98 -- GLU 85 < > 75 < > 92 78 79 CA 8.7 -- 8.1* -- -- 8.6 -- MG 2.0 -- 1.8 -- -- 1.9 -- PO4 1.7* -- 1.3* -- -- 1.6* -- < > = values in this interval not displayed. A/P: POD#3 trans-hiatal esophagectomy, pyloromyotomy, J tube placement, bilateral Chest tube mario cement, colopexy Main issues will be pulm toilet. Presently, urine is most likely culprit vs post-op inflammation. Neuro - intact, pain control. Hx hearing loss, back pain, frequent EtOH use. At risk for p ost-op delirium. Epidural, APS managing They will add local anesthetic since no hypotension Sleep hygiene Hearing aids Holding home Meloxicam (back pain) CIWA monitoring CV - BPs wnl. Tachycardia improved. Hx CAD/FL - s/p CABG x 2 in 2007, HTN, HLD. Metoprolol 12.5mg BID for HTN and rate control Telemetry on lopez Amio PFT Amio level pending Labetalol PRN Holding home ASA, amlodipine, ACEi May start amlodipine PFT if HTN continues Home atorvastatin Nebs PRN Pulm - oxygen requirement likely 2/2 atelectasis, weak cough, smoking hx. Atelectasis note d today. No volume overload. CT to waterseal Pulm toilet RT on lopez Continue CTs GI - s/p esophagectomy - esophageal CA. Hx GERD. Okay for meds via tube Advancing TFs to goal of 90ml/hr PPI IV JT - meds only Analgesia Anti-emetics Scheduled Reglan IV Cerovite PT/OT OOB to chair TID FEN Decrease MIVF Replace electrolytes PRN Creatinine bumped today, holding lasix Remove Joyner Urine cultures: Pending Heme - Presently, urine is most likely culprit vs post-op inflammation for WBCs. Declining HCT, but no other e/o bleed. Attributing to dilution at this point. If this drops further tomorrow, will investigate bleeding sources. No bleeding at neck, belly incisions. If he i s bleeding in GI tract, we won't know until he moves bowels. No new bloody drainage in CTs. Daily CBC Follow-up urine cx Endo - CBGs wnl MSK PT/OT Prophy: SCDs, HOB 30, Lovenox, PPI Dispo - to lopez today after we staff with Dr Edgard Lowery MD [facility], General Surgery ng, Celso Robins, THERAPEUTIC RECREATION DIRECTOR - 0 03/31/2015 8:07 AM PDT INPATIENT ADULT PAIN SERVICE NEURAXIAL BLOCK PROGRESS NOTE 03/31/2015 Author: CELSO PALMER NP POD#4. Status post: Trans-hiatal esophagectomy, pyloromyotomy, J tube placement, bilatera l Chest tube placement, colopexy Past Medical History Diagnosis Date GERD (gastroesophageal reflux disease) HTN (hypertension) Cheema's esophagus Knee pain, chronic Back pain, chronic [place] (myocardial infarction) s/p CABG x 2 Hearing loss bialteral hearing aids Interval events since last APS visit: -No acute events overnight -Bupivacaine soln added to Hydromorphone epidural infusion Mr. Meredith complains of midline abdominal pain. His pain score at rest is 0/10. With activity, his pain score is 1/10. Specific activitie s that exacerbate Mr. Meredith's pain include moving in bed and getting to a chair. Mr. Meredith is satisfied with current level of pain. History of chronic or preoperative pain: Yes Location: midline Prior to hospitalization: No significant chronic use of opioids at home ROS/Side Effects: General: negative. Nausea/Vomiting: None Pruritus: None Numbness/Weakness: None Low BP: None Dizziness: None Sedation: None Activity level: Out of bed Diet: NPO/sips/ice chips Medications: Scheduled Medications Medication Dose Route Frequency Last Rate amiodarone (CORDARONE) tablet 400 mg 400 mg feeding tube TID aspirin chewable tablet 81 mg 81 mg feeding tube DAILY atorvastatin (LIPITOR) tablet 80 mg 80 mg feeding tube DAILY docusate sodium liquid 50 mg 50 mg feeding tube BID enoxaparin (LOVENOX) injection 40 mg 40 mg subcutaneous QPM magnesium sulfate in water IV (RTU) 2 g 2 g intravenous ONCE metoclopramide HCl (REGLAN) injection 5 mg 5 mg intravenous Q6H metoprolol tartrate 10 mg/mL suspension (compound) 12.5 mg 12.5 mg feeding tube BID zoornlxucopa-okcu-ztpuhyrb (CEROVITE) liquid 15 mL 15 mL feeding tube DAILY omeprazole (PRILOSEC) oral suspension (compound) 40 mg 40 mg feeding tube DAILY polyethylene glycol (MIRALAX) powder 17 g 17 g feeding tube DAILY potassium phosphate IV 30 mmol 30 mmol intravenous ONCE PRN Medications Medication Dose Route Frequency Last Rate albuterol 0.083% (PROVENTIL,VENTOLIN) 2.5 mg /3 mL (0.083 %) nebulizer solution 2.5 mg 2.5 mg inhalation Q4H PRN dextrose 50 % IV 25 mL 25 mL intravenous PRN glucagon (GLUCAGEN) injection 1 mg 1 mg intramuscular PRN glucose chewable tablet 16 g 16 g oral PRN labetalol (TRANDATE) IV injection 10-40 mg 10-40 mg intravenous PRN LORazepam (ATIVAN) tablet 0.5-3 mg 0.5-3 mg oral PRN ondansetron (ZOFRAN) injection 4 mg 4 mg intravenous Q12H PRN Continuous Medications Medication Dose Route Frequency Last Rate bupivacaine (PF) 0.1 %, HYDROmorphone 10 mcg/mL in NaCl 0.9 % epidural infusion epidu ral CONTINUOUS 3 mL/hr at 03/31/15 0739 Type: Epidural Rate: 3 mL/hour Anticoagulants: Enoxaparin 40 mg subcutaneous daily, last dose given yesterday at 2020 hrs . Lab Results Component Value Date INRPT 0.87* 03/26/2015 PLT 198 03/31/2015 Opioids: None Other analgesics: None Other psychoactive medications: None Physical Exam: Last Vitals:BP 119/58 | Pulse 87 | Temp 37.3 C (99.1 F) | RR 16 | Ht 1.791 m (5' 10.51" ) | Wt 86.3 kg (190 lb 4.1 oz) | SpO2 93% | BMI 26.9 kg/(m^2) 24 hour Vitals min/max : Systolic (24hrs), Av mmHg, Min:98 mmHg, Max:119 mmHg Diastolic (24hrs), Av mmHg, Min:48 mmHg, Max:78 mmHg Pulse Min: 73 Max: 95 Temp Min: 36.4 C (97.5 F) Max: 37.3 C (99.1 F) Resp Min: 12 Max: 24 SpO2 Min: 91 % Max: 98 % General Appearance and Neurological Examination: Mental Status: Alert Orientation: Oriented Sensory Level: intact Motor: bilateral lower extremity(ies) -- No block: full flexion and extension of hip, knee and foot Neuraxial Catheter: Location: T6-T7;depth at skin 12.5 cm Dressing: Intact and Redressed Exit Site: Clean and Dried blood Chest tube in place. NG/OG tube in place. Assessment: Mr. 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 Mr. Meredith rates his pain relief as excellent. My personal assessment is concordant with this evaluation Joyner status: Epidural: at thoracic level; If Joyner is in place, it may be removed if deem ed appropriate by primary care team Diagnosis: 1. Acute postoperative midline incisional pain 2. Distal esophageal adenocarcinoma 3. Cheema's esophagus My treatment plan is: *Continue neuraxial infusion, titrate infusion as needed I attempted to discuss our findings and recommendations with primary care team provider Aur brennon Saldaña NP. Did not reach this provider. For today's evaluation, I have included my personal review of Mr. Meredith's history and physic al examination. I also used the following components in my medical decision making: Review and summary of old medical records (source: [facility]), as summarized in the body of the note. Personal review of radiological images. Personal review of laboratory results. 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 Presently, urine is mo st likely culprit vs post-op inflammation. Neuro - intact, pain control. Hx hearing loss, back pain, frequent EtOH use. At risk for p ost-op delirium. Epidural, APS managing They will add local anesthetic since no hypotension Sleep hygiene Hearing aids Holding home Meloxicam (back pain) CIWA monitoring CV - BPs wnl. Tachycardia improved. Hx CAD/FL - s/p CABG x 2 in 2007, HTN, HLD. Will start metop 12.5 for rate control, HTN Telemetry on lopez Amio PFT Amio level to be checked checked POD#3 Labetalol PRN Holding home ASA, amlodipine, ACEi May start amlodipine PFT if HTN continues Started home statin Nebs PRN Pulm - oxygen requirement likely 2/2 atelectasis, weak cough, smoking hx. Atelectasis note d today. No volume overload. CT to waterseal Pulm toilet RT on lopez Continue CTs GI - s/p esophagectomy - esophageal CA. Hx GERD. Okay for meds via tube Continue trickle TFs NGT - removed on AM rounds PPI IV JT - meds only Analgesia Anti-emetics Scheduled Reglan IV Cerovite PT/OT OOB to chair TID FEN Decrease MIVF Replace electrolytes PRN IV phos today Tricke TFs Remove Joyner UTI panel sent Heme - Presently, urine is most likely culprit vs post-op inflammation for WBCs. Declining HCT, but no other e/o bleed. Attributing to dilution at this point. If this drops further tomorrow, will investigate bleeding sources. No bleeding at neck, belly incisions. If he i s bleeding in GI tract, we won't know until he moves bowels. No new bloody drainage in CTs. Daily CBC Follow-up urine cx Endo - CBGs wnl MSK PT/OT Prophy: SCDs, HOB 30, Lovenox, PPI Dispo - to lopez today after we staff with Dr Edgard Hernandez MD, MPH [address] Division of Plastic & Reconstructive Surgery Pager: [phone] au [place] - 03/30 8:54 AM PDT Trauma / Surgical Critical Care Service - Progress Note Name: JUNAID MEREDITH Date: 03/30/2015 Author: MAU CISSE HPI: 75 y.o. male admitted on 03/27/2015 5:06 AM with Cheema's esophagus, distal esophagea l adenocarcinoma POD3 s/p transhiatal esophagectomy, pyloromyotomy, J tube placement, bilate ral chest tube; on the esophagectomy pathway. Hospital Day #3 ICU Day #3 Subjective/Interval Hx: POD3 s/p transhiatal esophagectomy, pyloromyotomy, J tube placement, bilateral chest tube; on the esophagectomy pathway. Patient did well overnight, has been OOB to chair, has not yet ambulated. States pain minimal and well controlled w/ epidural. Chest tube remains to water seal. Positive UA with leukocyte esterase yesterday, urine to cx. Patient denies LUTS. Joyner out yesterday 03/29, voiding well. NGT d/c this AM with output 50ml/24hrs. Abdomen remains without pain, has not yet passed flatus. Lines: R chest tube, L chest tube Abx: N/a Procedures: 03/27 transhiatal esophagectomy, pyloromyotomy, J tube placement, bilateral chest tube Labs: CBC with diff last 72 hours (or 3 results) Recent Labs 03/28/1521003/29/1538 03/30/152 WBC 18.11* 24.61* 21.51* HB 11.8* 10.8* 9.5* HCT 35.2* 32.9* 28.2* PLT 219 188 161 Chemistries: Last 72 Hours (or 3 results): Recent Labs 03/28/1521003/29/1538 03/29/15 1838 03/29/15195603/30/152 NA 140 -- 139 -- -- -- 143 K 4.3 -- 3.9 -- -- -- 3.4 CL 107 -- 107 -- -- -- 111* BICARB 26 -- 27 -- -- -- 25 BUN 22* -- 18 -- -- -- 20 CR 0.97 -- 0.89 -- -- -- 0.77 GLU 133* < > 85 < > 67 85 75 CA 9.0 -- 8.7 -- -- -- 8.1* MG 1.6* -- 2.0 -- -- -- 1.8 PO4 3.1 -- 1.7* -- -- -- 1.3* < > = values in this interval not displayed. Imaging: CXR 03/30/2015 Read pending - R atelectasis improving, L remains same as previous day Vitals: BP 125/57 | Pulse 88 | Temp 36.9 C (98.4 F) | RR 16 | Ht 1.791 m (5' 10.51") | Wt 88 kg (194 lb 0.1 oz) | SpO2 97% | BMI 27.43 kg/(m^2) Physical exam: General: alert, awake, NAD HEENT: NC/AT, PERRL, EOMI, nasal canula Cardiovascular: RRR, no m/r/g Respiratory: CTAB bilaterally, bilateral chest tubes to water seal with serosanguinous outp ut, no air leak Abdominal: soft, nontender, nondistended, no masses, incision sites C/D/I, +BS Genitourinary: normal male genitalia Musculoskeletal: no gross deformities, full ROM without pain Neurologic: alert and oriented, no focal deficits Intake/Output Summary (Last 24 hours) at 03/30/15 0902 Last data filed at 03/30/15 0800 Gross per 24 hour Intake 2183 ml Output 1555 ml Net 628 ml 50 mL NGT (d/c'ed) 340 mL R chest tube 410 mL L chest tube Active issues/Plan: # S/p Transhiatal hernia on pathway POD3 - extubated - Epidural for analgesia - Amiodarone 400mg BID thru J tube per operative team - chest tube to water seal - CXR daily - Incentive spirometer - J tube for meds - PT/OT - OOB to ambulate today - Lovenox 40mg qhs - Cerovite through J tube - d/c NGT # Cardiology - Amiodarone 400mg BID thru J tube per operative team (day 3) - Metoprolol 12.5mg BID - Labetalol PRN - Atorvastatin 80mg QD - Hold home lisinopril, amlodipine # Respiratory - Chest tubes to remain to water seal - Follow until output slows to <200mL - CXR daily - Incentive spirometer F: LR at 100mL hour, TF trickle at 10ml/hr A:epidural S:ativan PRN CIWA T:Lovenox 40mg H:30deg U:Omeprazole G:n/a B:regimen I: L chest tube, R chest tube D:no abx, amiodarone Spines: C/T/L clear Mau [place] MS4 [facility] Justo Aguilar MD - 03/30/2015 8:51 AM PDTFormatting of this note might be different from t he original. INPATIENT ADULT PAIN SERVICE NEURAXIAL BLOCK PROGRESS NOTE 03/30/2015 Author: VICKIE RIZZO MD Pain Service Attending Physician: Justo Aguilar MD POD# 3. Status post: s/p transhiatal esophagectomy, pyloromyotomy, J tube placement, bila teral chest tube; on the esophagectomy pathway. Interval events since last APS visit: - - epidural continued, sufentanil only - pain rated as well controlled Mr. Meredith complains of midline abdominal pain. His pain score at rest is 0/10. With activity, his pain score is 2/10. Specific activitie s that exacerbate Mr. Meredith's pain include coughing. Mr. Meredith is satisfied with current leve l of pain. History of chronic or preoperative pain: yes: location: back pain. Typical intensity 2/10 Prior to hospitalization: No significant chronic use of opioids at home.} ROS/Side Effects: Nausea/Vomiting: none Pruritus: none Numbness/Weakness: none Low BP: none Dizziness: none Sedation: none Activity level: Out of bed Diet: NPO/sips/ice chips Medications: Scheduled Medications Medication Dose Route Frequency Last Rate amiodarone (CORDARONE) tablet 400 mg 400 mg feeding tube TID aspirin chewable tablet 81 mg 81 mg feeding tube DAILY atorvastatin (LIPITOR) tablet 80 mg 80 mg feeding tube DAILY bisacodyl (DULCOLAX) suppository 10 mg 10 mg rectal ONCE docusate sodium liquid 50 mg 50 mg feeding tube BID enoxaparin (LOVENOX) injection 40 mg 40 mg subcutaneous QPM esomeprazole (NEXIUM) IV 40 mg 40 mg intravenous DAILY metoclopramide HCl (REGLAN) injection 5 mg 5 mg intravenous Q6H metoprolol tartrate 10 mg/mL suspension (compound) 12.5 mg 12.5 mg feeding tube BID xsgbykvwrdsm-nhev-plitzbyn (CEROVITE) liquid 15 mL 15 mL feeding tube DAILY PRN Medications Medication Dose Route Frequency Last Rate albuterol 0.083% (PROVENTIL,VENTOLIN) 2.5 mg /3 mL (0.083 %) nebulizer solution 2.5 mg 2.5 mg inhalation Q4H PRN dextrose 50 % IV 25 mL 25 mL intravenous PRN glucagon (GLUCAGEN) injection 1 mg 1 mg intramuscular PRN glucose chewable tablet 16 g 16 g oral PRN labetalol (TRANDATE) IV injection 10-40 mg 10-40 mg intravenous PRN LORazepam (ATIVAN) tablet 0.5-3 mg 0.5-3 mg oral PRN ondansetron (ZOFRAN) injection 4 mg 4 mg intravenous Q12H PRN Continuous Medications Medication Dose Route Frequency Last Rate lactated ringers IV 50 mL/hr intravenous CONTINUOUS SUFentanil 2 mcg/mL in NaCl 0.9 % epidural infusion epidural CONTINUOUS 3 mL/hr at 0743 Type: Epidural Rate: 3 mL/hour Anticoagulants: Enoxaparin 40mg subcutaneous daily, last dose given yesterday at 2121 hrs. Lab Results Component Value Date INRPT 0.87* 03/26/2015 PLT 161 03/30/2015 Opioids: None Other analgesics: None Other psychoactive medications: ativan PRN for CIWA (receiving none), metoclopramide Physical Exam: Last Vitals:BP 104/58 | Pulse 85 | Temp 36.9 C (98.4 F) | RR 12 | Ht 1.791 m (5' 10.51" ) | Wt 88 kg (194 lb 0.1 oz) | SpO2 97% | BMI 27.43 kg/(m^2) 24 hour Vitals min/max : Systolic (24hrs), Av mmHg, Min:98 mmHg, Max:137 mmHg Diastolic (24hrs), Av mmHg, Min:53 mmHg, Max:71 mmHg Pulse Min: 80 Max: 108 Temp Min: 36.6 C (97.9 F) Max: 37.6 C (99.7 F) Resp Min: 15 Max: 27 No Data Recorded General Appearance and Neurological Examination: Mental Status: Alert Orientation: Coherent Sensory Level: deferred Motor: bilateral lower extremity(ies) -- No block: full flexion and extension of hip, knee and foot Neuraxial Catheter: Location: T6-7;depth at skin 13 cm Dressing: Needed support and Redressed Exit Site: Clean and Non-tender Chest tube in place. and NG/OG tube in place. Assessment: Mr. Meredith rates his pain relief as excellent. My personal assessment is concordant with this evaluation He is able to move and do pulmonary toilet. Joyner status: Epidural: at thoracic level; If Joyner is in place, it may be removed if deem ed appropriate by primary care team Diagnosis: 1. Acute post-operative pain 2. POD #2Transhiatal esophagectomy, pyloromyotomy, J tube placement, Bilateral Chest tube p lacement. Colopexy 3. Opioid naive We had considered discussed adding local anesthetic to Mr. Meredith's epidural infusion, and di scussed this with his surgeons. As he becomes more active, this may be helpful. My treatment plan is: Continue neuraxial infusion, titrate infusion as needed Change infusate to bupivacaine 0.1%/hydromorphone 10 mcg/ml @ 3 ml/hr, adjust as needed I discussed our findings and recommendations with primary care team provider Dr. Rene. VICKIE RIZZO MD I saw and evaluated patient Mr. Junaid Meredith with Resident: Dr. Vickie Rizzo. I reviewed all details of Mr. Junaid Meredith s epidural block management. I have reviewed the resident s note and I agree with the plan of care as documented. I edited this note. JUSTO AGUILAR MD Bulmaro Pitt MD,MPH - 03/29/2015 11:40 AM PDTRed surgery Attending Dr Akbar I: NAEO Requiring oxygen mask and 6L S: No pain in abdomen No bloating Breathing comfortably No questions, concerns No CIWA issues O: BP 139/71 | Pulse 96 | Temp 37.6 C (99.7 F) | RR 13 | Ht 1.791 m (5' 10.51") | Wt 88 kg (194 lb 0.1 oz) | SpO2 97% | BMI 27.43 kg/(m^2) Alert, oriented, NAD Breathing even, unlabored on room air Wet, weak cough CVC in neck flat,clean dressing NGT functioning with green-brown output Chest tubes with SS output No air leak MARLYS with SS Neck incision intact - no surrounding erythema Abdominal incisions intact, abd soft, NT, ND Joyner with clear urine Lines: CVC PIV Tubes: CT x 2 Yunier Joyner Labs and chest xray reviewed - notable for WBC increase A/P: POD#2 trans-hiatal esophagectomy, pyloromyotomy, J tube placement, bilateral Chest tube mario cement, colopexy Doing very well today, however, has leukocytosis of unclear origin. Neuro - intact, pain control. Hx hearing loss, back pain, frequent EtOH use. At risk for p ost-op delirium. Epidural, APS managing Sleep hygiene Hearing aids Holding home Meloxicam (back pain) CIWA monitoring CV - borderline HTN, no arrhthymias overnight. Tachycardic. Hx CAD/FL - s/p CABG x 2 in 20 08, HTN, HLD. Will start metop 12.5 for rate control, HTN Telemetry Amio PFT Amio level to be checked checked POD#3 Labetalol PRN Holding home ASA, amlodipine, ACEi May start amlodipine PFT if HTN continues Starting home statin Nebs PRN Pulm - increased oxygen requirement likely 2/2 atelectasis, weak cough, smoking hx. Atelec tasis noted today. No volume overload. CT to waterseal Pulm toilet in ICU Continue CTs GI - s/p esophagectomy - esophageal CA. Hx GERD. Okay for meds via tube Okay to start trickle TFs NGT - continue. PPI IV JT - meds only Analgesia Anti-emetics Scheduled Reglan IV Cerovite PT/OT OOB to chair TID FEN Decrease MIVF Replace electrolytes PRN IV phos today Tricke TFs Remove Joyner UTI panel sent Heme - increasing leukocytosis, no signs bleeding. Will check common things first (UTI, ch est). No concern for intra-abdominal process at this time. Daily CBC Endo - CBGs wnl MSK PT/OT Prophy: SCDs, HOB 30, Lovenox, PPI Dispo - continue ICU today for pulm toilet, tachycardia Seen with Dr Edgard Hernandez MD, MPH R2 [facility] Division of Plastic & Reconstructive Surgery Pager: [phone] Justo Palm MD - 03/29/2015 8:11 AM PDT INPATIENT ADULT PAIN SERVICE NEURAXIAL BLOCK PROGRESS NOTE 03/29/2015 Author: VICKIE RIZZO MD Pain Service Attending Physician: Justo Aguilar MD POD# 2. Status post: s/p transhiatal esophagectomy, pyloromyotomy, J tube placement, bila teral chest tube; on the esophagectomy pathway. Interval events since last APS visit: - epidural continued, sufentanil only - pain rated as well controlled Mr. Meredith complains of midline abdominal pain. His pain score at rest is 3/10. With activity, his pain score is 3/10. Specific activitie s that exacerbate Mr. Meredith's pain include deep breathing. Mr. Meredith is satisfied with curren t level of pain. History of chronic or preoperative pain: yes: location: back pain. Typical intensity 2/10 Prior to hospitalization: No significant chronic use of opioids at home. ROS/Side Effects: Nausea/Vomiting: none Pruritus: none Numbness/Weakness: none Low BP: none Dizziness: none Sedation: mild Activity level: Out of bed Diet: NPO/sips/ice chips Medications: Scheduled Medications Medication Dose Route Frequency Last Rate amiodarone (CORDARONE) tablet 400 mg 400 mg feeding tube BID atorvastatin (LIPITOR) tablet 80 mg 80 mg feeding tube DAILY docusate sodium liquid 50 mg 50 mg feeding tube BID enoxaparin (LOVENOX) injection 40 mg 40 mg subcutaneous QPM esomeprazole (NEXIUM) IV 40 mg 40 mg intravenous DAILY metoclopramide HCl (REGLAN) injection 5 mg 5 mg intravenous Q6H btvsmfhrtjky-yojw-ehbzizec (CEROVITE) liquid 15 mL 15 mL feeding tube DAILY mupirocin (BACTROBAN) 2 % ointment nasal BID PRN Medications Medication Dose Route Frequency Last Rate albuterol 0.083% (PROVENTIL,VENTOLIN) 2.5 mg /3 mL (0.083 %) nebulizer solution 2.5 mg 2.5 mg inhalation Q4H PRN dextrose 50 % IV 25 mL 25 mL intravenous PRN glucagon (GLUCAGEN) injection 1 mg 1 mg intramuscular PRN glucose chewable tablet 16 g 16 g oral PRN labetalol (TRANDATE) IV injection 10-40 mg 10-40 mg intravenous PRN LORazepam (ATIVAN) tablet 0.5-3 mg 0.5-3 mg oral PRN ondansetron (ZOFRAN) injection 4 mg 4 mg intravenous Q12H PRN Continuous Medications Medication Dose Route Frequency Last Rate lactated ringers IV 100 mL/hr intravenous CONTINUOUS 100 mL/hr (03/29/15 0803) SUFentanil 2 mcg/mL in NaCl 0.9 % epidural infusion epidural CONTINUOUS 3 mL/hr at 0800 Type: Epidural Rate: 3 mL/hour Anticoagulants: Enoxaparin 40mg subcutaneous daily, last dose given yesterday at 2008 hrs. Lab Results Component Value Date INRPT 0.87* 03/26/2015 PLT 188 03/29/2015 Opioids: None Other analgesics: None Other psychoactive medications: ativan PRN for CIWA (receiving none), metoclopramide Physical Exam: Last Vitals:BP 139/71 | Pulse 96 | Temp 37.6 C (99.7 F) | RR 13 | Ht 1.791 m (5' 10.51" ) | Wt 88 kg (194 lb 0.1 oz) | SpO2 97% | BMI 27.43 kg/(m^2) 24 hour Vitals min/max : Systolic (24hrs), Av mmHg, Min:121 mmHg, Max:143 mmHg Diastolic (24hrs), Av mmHg, Min:56 mmHg, Max:73 mmHg Pulse Min: 94 Max: 113 Temp Min: 36.5 C (97.7 F) Max: 37.6 C (99.7 F) Resp Min: 13 Max: 28 No Data Recorded General Appearance and Neurological Examination: Mental Status: Alert Orientation: Coherent Sensory Level: deferred Motor: bilateral lower extremity(ies) -- No block: full flexion and extension of hip, knee and foot Neuraxial Catheter: Location: T6-7;depth at skin covered by dressing Dressing: Intact Exit Site: Clean and Non-tender Chest tube in place. and NG/OG tube in place. Assessment: Mr. Meredith rates his pain relief as good. My personal assessment is concordant with this evaluation Mr. Meredith is able to do pulmonary toilet without significant pain, and is able to move to a chair. Joyner status: Epidural: at thoracic level; If Joyner is in place, it may be removed if deem ed appropriate by primary care team Diagnosis: 1. POD #1Transhiatal esophagectomy, pyloromyotomy, J tube placement, Bilateral Chest tube p lacement. Colopexy 2. Opioid naive My treatment plan is: Continue neuraxial infusion, titrate infusion as needed Consider adding local anesthetic pending discussion with primary team VICKIE RIZZO MD I saw and evaluated patient Mr. Junaid Meredith with Resident: Dr. Vickie Rizzo. I reviewed all details of Mr. Junaid Meredith s epidural block management. I have reviewed the resident s note and I agree with the plan of care as documented. I edited this note. JUSTO AGUILAR MD au [place] - 03/28/2015 1:54 PM PDT Trauma / Surgical Critical Care Service - Progress Note Name: JUNAID MEREDITH Date: 03/28/2015 Time: 1:54 PM Author: MAU CISSE HPI: 75 y.o. male admitted on 03/27/2015 5:06 AM with Cheema's esophagus, distal esophagea l adenocarcinoma POD1 s/p transhiatal esophagectomy, pyloromyotomy, J tube placement, bilate ral chest tube; on the esophagectomy pathway. Hospital Day #1 ICU Day #1 Subjective/Interval Hx: POD1 s/p transhiatal esophagectomy, pyloromyotomy, J tube placement, bilateral chest tube; on the esophagectomy pathway. Patient did well overnight, extubated, has been OOB to chair. States pain minimal and well controlled w/ epidural. Chest tube to water seal this AM. Patient's daughter at bedside this morning. Lines: R chest tube, L chest tube, L neck MARLYS drain, Joyner catheter Abx: N/a Procedures: 03/27 transhiatal esophagectomy, pyloromyotomy, J tube placement, bilateral chest tube Labs: CBC with diff last 72 hours (or 3 results) Recent Labs 03/26/15 1545 03/27/15 1416 03/27/15 1522 03/28/15 0211 WBC 12.17* -- -- 23.27* 18.11* HB 12.9* -- -- 12.0* 11.8* HCT 38.3* < > 39.1* 35.7* 35.2* PLT 267 -- -- 244 219 < > = values in this interval not displayed. Chemistries: Last 72 Hours (or 3 results): Recent Labs 03/26/15 1545 03/27/15 1416 03/27/15 1522 03/27/15 1533 03/28/15 0211 03/28/15 1244 NA 135* < > 140 141 -- 140 -- K 4.4 < > 4.3 4.3 -- 4.3 -- CL 101 < > 108 109* -- 107 -- BICARB 25 -- -- 25 -- 26 -- BUN 27* -- -- 21* -- 22* -- CR 1.09 -- -- 1.11 -- 0.97 -- GLU 93 -- -- 133* 115* 133* 110* CA 10.0 -- -- 9.3 -- 9.0 -- MG -- -- -- -- -- 1.6* -- PO4 -- -- -- 2.0* -- 3.1 -- < > = values in this interval not displayed. Albumin 2.9 Imaging: CXR 03/28/15 IMPRESSION: Moderate bibasilar atelectasis. Vitals: BP 137/56 | Pulse 103 | Temp 36.5 C (97.7 F) | RR 15 | Ht 1.791 m (5' 10.51") | Wt 88 kg (194 lb 0.1 oz) | SpO2 97% | BMI 27.43 kg/(m^2) Physical exam: General: alert, awake, NAD HEENT: NC/AT, PERRL, EOMI, L neck MARLYS drain Cardiovascular: RRR, no m/r/g Respiratory: CTAB bilaterally, bilateral chest tubes to water seal with serosanguinous outp ut, no air leak Abdominal: soft, nontender, nondistended, no masses, incision sites C/D/I Genitourinary: normal male genitalia Musculoskeletal: no gross deformities, full ROM without pain Neurologic: alert and oriented, no focal deficits Intake/Output Summary (Last 24 hours) at 03/28/15 1405 Last data filed at 03/28/15 1300 Gross per 24 hour Intake 2072.5 ml Output 2970 ml Net -897.5 ml 350 mL NGT 200 mL R chest tube 200 mL L chest tube 50 mL MARLYS neck Active issues/Plan: # S/p Transhiatal hernia on pathway POD1 - extubated - Epidural for analgesia - Amiodarone 400mg BID thru J tube per operative team - decreased MIVF -25% today - d/c art line pending operative team - chest tube to water seal - CXR - Incentive spirometer - J tube for meds - PT/OT - OOB to chair - Lovenox 40mg qHs starting tonight # Cardiology - Amiodarone 400mg BID thru J tube per operative team - Labetalol PRN - Hold home lisinopril, amlodipine # Respiratory - Chest tubes to remain to water seal - Follow until output slows to <200mL - CXR - Incentive spirometer # Electrolytes - Mg sulfate replaced, follow up labs F: LR at 100mL hour A:epidural S:ativan PRN T:Lovenox 40mg H:30deg U:Omeprazole G:n/a B:regimen I:L neck MARLYS, L chest tube, R chest tube, Joyner catheter D:no abx Spines: C/T/L clear Dispo: to lopez Discussed with Dr. Garcia on TSICU rounds. Mau Cisse MS4 [facility] Bulmaro Pitt MD ,MPH - 03/28/2015 11:14 AM PDTRed surgery Attending Dr Akbar I: VIN Received some labetalol for hypertension S: No pain in abdomen No bloating Breathing comfortably Slept very well No questions, concerns No CIWA issues O: BP 143/67 | Pulse 107 | Temp 36.5 C (97.7 F) | RR 22 | Ht 1.791 m (5' 10.51") | Wt 88 k g (194 lb 0.1 oz) | SpO2 97% | BMI 27.43 kg/(m^2) Alert, oriented, NAD Breathing even, unlabored on room air CVC in neck flat NGT functioning with red-brown output Chest tubes with SS output MARLYS with SS Neck incision intact Abdominal incisions intact, abd soft, NT, ND Joyner with clear urine Lines: CVC AL PIV Tubes: CT x2 Yunier Joyner Labs and chest xray reviewed - notable for WBC 18 (down), NGT too distal A/P: POD#1 trans-hiatal esophagectomy, pyloromyotomy, J tube placement, bilateral Chest tube mario cement, colopexy Doing very well today. On pathway. Neuro - intact, pain control. Hx hearing loss, back pain, frequent EtOH use. At risk for p ost-op delirium. Epidural, APS managing Sleep hygiene Hearing aids Holding home Meloxicam (back pain) CIWA monitoring CV - borderline HTN, no arrhthymias overnight. Hx CAD/FL - s/p CABG x 2 in 2007, HTN, HLD. Telemetry on floor Amio BID Amio level checked POD#3 Labetalol PRN Holding home ASA, amlodipine, ACEi May start amlodipine PFT if HTN continues Starting home statin Nebs PRN Pulm - no issues. Atelectasis noted today. No volume overload. Previous smoking hx. CT to waterseal Pulm toilet on lopez Continue CTs GI - s/p esophagectomy - esophageal CA. Hx GERD. Okay for meds via tube NGT - continue. Position adjusted today (pulled back/out ~ 7cm) Mupirocin to nose PPI JT - meds only Analgesia Anti-emetics Scheduled Reglan Cerovite PT/OT starting tomorrow OOB to chair TID FEN Decrease MIVF Replace electrolytes PRN No feeding at this time Continue Joyner Heme - improved leukocytosis, no signs bleeding. No ID issues Endo - CBGs wnl MSK PT/OT starting tomorrow Prophy: SCDs, HOB 30, Lovenox today, PPI Dispo - to [facility] today. ICU informed. Transfer orders placed. Seen with Dr Edgard Hernandez MD, MPH R2 [facility] Division of Plastic & Reconstructive Surgery Pager: [phone] romm, Bob Gottlieb MD - 03/28/2015 11:09 AM PDTTrauma / Surgical Critical Care Service - Progress Note Name: JUNAID MEREDITH Date: 03/28/2015 Time: 11:09 AM Author: BOB EDOUARD MD HPI: 75 y.o. male with history of severe GERD and Cheema's for 3 years. He was diagnosed with h igh-grade Cheema's and referred to [facility] for ablation. However, In December 2014 and EGD identi fied esophageal adenocarcinoma. He has had progressive dysphagia, regurgitation and at one p oint had los > 45 pounds. Hospital Day #1 ICU Day #1 Lines: R chest tube, L chest tube, L neck MARLYS drain, Joyner catheter Abx: N/a Procedures: 03/28/15: Transhiatal esophagectomy, pyloromyotomy, J tube placement, bilateral chest tube 24hr events: JOHNNA overnight AF, hemodynamically stable, uop appropriate w/o fluid bolus or pressor requirement overnigh t NG pulled back by primary team this am Pain well controlled Current meds: I have independently reviewed current medication Labs: EPIC Significant Results reviewed Imaging: I have reviewed applicable imaging. Vitals: BP 143/67 | Pulse 107 | Temp 36.5 C (97.7 F) | RR 22 | Ht 1.791 m (5' 10.51") | Wt 88 kg (194 lb 0.1 oz) | SpO2 97% | BMI 27.43 kg/(m^2) Physical exam: Constitutional: A&Ox3, NAD HEENT NG w/ light ss fluid/sumping appropriately, Neck MARLYS w/ SS fluid Neurologic: gross motor and sensory intact Cardiovascular: RRR w/o mrg Respiratory: CTAB, bilateral chest tube w/ ss fluid, no air leak Gastrointestinal: soft, non-distended, incision d/c/i, jtube secured in place Genitourinary: joyner w/ cyu Musculoskeletal: wwp, no cyanosis or edema Active issues/Plan: Neuro: -continue epidural for pain -CIWA/ativan for ETOH history Resp: -bilateral chest tubes to water seal -IS/Pulmonary hygiene, prn albuterol CV: -amio prophylaxis via jtube -resume home statin, aspirin POD2 per primary team, holding home antihypertensive FEN/GI -continue NG, maintain neck MARLYS -NPO, decrease mIVF to 100cc/hr, cerovite, initiation of tube feeds POD2 Renal/ -maintain joyner Heme: -lovenox to start tonight, SCDs, OOB to chair/ambulate as tolerated ID: -no active issues Endo: -glucose wnl F:NPO A:epidural S:prn ativan for CIWA T:lovenox H:>30 U:PPI G:wnl Dispo:[facility] Discussed with Dr. Justo Garcia MD,MPH on TSICU rounds. Bob Edouard MD General Surgery, R2 Pager [phone] Dept of Surgery SICU/TICU Contact First Call team 11/04 for questions: Associated attestation - Justo Garcia MD,MPH - 03/29/2015 10:11 PM PDTI examined this p atient with the ICU team today (03/29/2015). I have personally reviewed all pertinent labar otory findings, radiographs, and physiologic parameters. I agree with the assessment and pl an as outlined in Dr. Edouard's note. The patient is s/p esophagectomy. Hemodynamically stable. Encouraging pulmonary toilet. Justo Garcia MD, MPH, FACS, [facility] bending shed worker Trauma, Surgical Critical Care, & Acute Care Surgery [facility] [phone] Ivanna Moreno MD - 03/28/2015 8:23 AM PDTFormatting of this note might be different f rom the original. INPATIENT ADULT PAIN SERVICE NEURAXIAL BLOCK PROGRESS NOTE 03/28/2015 Author: VICKIE RIZZO MD Pain Service Attending Physician: Ivanna Moreno MD POD# 1. Status post: Transhiatal esophagectomy, pyloromyotomy, J tube placement, Bilatera l Chest tube placement. Colopexy Interval events since last APS visit: - admitted - increased O2 need to 6L O2, albuterol PRN ordered Mr. Meredith complains of incisional pain. Mostly the sternal part of the incision hurts (righ t below the sternum is painful). His pain score at rest is 0/10. With activity, his pain score is 5/10. Specific activitie s that exacerbate Mr. Meredith's pain include getting to a chair and most activities. Mr. Meredith is satisfied with current level of pain. History of chronic or preoperative pain: yes: location: back pain. Typical intensity 2/10 Prior to hospitalization: No significant chronic use of opioids at home. ROS/Side Effects: General: negative. Nausea/Vomiting: none Pruritus: none Numbness/Weakness: none Low BP: none Dizziness: none Sedation: none Activity level: In bed all the time Diet: NPO/sips/ice chips Medications: Scheduled Medications Medication Dose Route Frequency Last Rate [START ON 03/29/2015] docusate sodium liquid 50 mg 50 mg feeding tube BID enoxaparin (LOVENOX) injection 40 mg 40 mg subcutaneous QPM esomeprazole (NEXIUM) IV 40 mg 40 mg intravenous DAILY metoclopramide HCl (REGLAN) injection 5 mg 5 mg intravenous Q6H mupirocin (BACTROBAN) 2 % ointment nasal BID PRN Medications Medication Dose Route Frequency Last Rate albuterol 0.083% (PROVENTIL,VENTOLIN) 2.5 mg /3 mL (0.083 %) nebulizer solution 2.5 mg 2.5 mg inhalation Q4H PRN labetalol (TRANDATE) IV injection 10-40 mg 10-40 mg intravenous PRN LORazepam (ATIVAN) tablet 0.5-3 mg 0.5-3 mg oral PRN ondansetron (ZOFRAN) injection 4 mg 4 mg intravenous Q12H PRN Continuous Medications Medication Dose Route Frequency Last Rate lactated ringers IV 125 mL/hr intravenous CONTINUOUS 125 mL/hr (03/28/15 0700) SUFentanil 2 mcg/mL in NaCl 0.9 % epidural infusion epidural CONTINUOUS 3 mL/hr at 0700 Type: Epidural Rate: 3 mL/hour Anticoagulants: Enoxaparin 40mg subcutaneous daily, not yet given, scheduled to begin today at 2100 Lab Results Component Value Date INRPT 0.87* 03/26/2015 PLT 219 03/28/2015 Opioids: None Other analgesics: None Other psychoactive medications: None Physical Exam: Last Vitals:BP 138/57 | Pulse 82 | Temp 37.4 C (99.3 F) | RR 12 | Ht 1.791 m (5' 10.51" ) | Wt 88 kg (194 lb 0.1 oz) | SpO2 97% | BMI 27.43 kg/(m^2) 24 hour Vitals min/max : Systolic (24hrs), Av mmHg, Min:97 mmHg, Max:154 mmHg Diastolic (24hrs), Av mmHg, Min:57 mmHg, Max:105 mmHg Pulse Min: 82 Max: 110 Temp Min: 36.4 C (97.5 F) Max: 37.4 C (99.3 F) Resp Min: 12 Max: 31 SpO2 Min: 93 % Max: 97 % General Appearance and Neurological Examination: Mental Status: Alert Orientation: Oriented Sensory Level: intact Motor: bilateral lower extremity(ies) -- No block: full flexion and extension of hip, knee and foot Neuraxial Catheter: Location: T6-T7;depth at skin 12.5 cm Dressing: Redressed Exit Site: Clean and Non-tender Chest tube in place. and NG/OG tube in place. Assessment: Mr. Meredith rates his pain relief as excellent. My personal assessment is concordant with this evaluation Joyner status: Epidural: at thoracic level; If Joyner is in place, it may be removed if deem ed appropriate by primary care team Diagnosis: 1. POD #1Transhiatal esophagectomy, pyloromyotomy, J tube placement, Bilateral Chest tube placement. Colopexy 2. Opioid payton My treatment plan is: Continue neuraxial infusion, titrate infusion as needed Perhaps we will consider adding local at a later date. I discussed our findings and recommendations with primary care team provider ICU. VICKIE RIZZO MD I saw and evaluated patient Mr. Junaid Meredith with Resident: Dr. Rizzo. I reviewed all det ails of Mr. Junaid Meredith s epidural block management. I have reviewed the resident s no te and I agree with the plan of care as documented. I do not have additional comments. IVANNA MORENO MD Tj Newell do, MD - 03/27/2015 3:04 PM PDTBRYELENA OPERATIVE NOTE Procedure Date: 03/27/2015 Author: ERIC FRANKS MD Attending Physician: Vijay Akbar MD Co Surgeon: Tito Rene MD Assistants: MD Bulmaro BROCK MD Preoperative Diagnosis: Esophageal adenocarcinoma Postoperative Diagnosis: Same Procedure Performed: Transhiatal esophagectomy, pyloromyotomy, J tube placement, Bilateral Chest tube placement. Colopexy Findings: Moderate amount of intraabdominal adhesions over the lower abdomen. Lower mediast inum with infammatory adhesions. Both plerual spaces were entered. Conduit had great blood f low through out the case. Negative Methene blue test. Negative frozen section margins. Complications: None Fluids: EBL: 100, UOP: 720 and crystalloid: 3600 Specimens: Pathology: esophagogastrectomy, Level 9 lymph nodes. Drains: ETT, NGT, Chest tube, Yunier, CVC, Arterial Line and J tube Disposition: PACU then ICU Joyner: Remove POD #2 Diet: Strict NPO DVT prophylaxis: okay to begin POD 1 at am Antibiotic Plan: None Glycemic control: SQ sliding scale Dressing care: No wound care required Activity restrictions: HOB > 30 degrees and Abdominal precautions ERIC FRANKS MD MIS Fellow [facility] Dept. of Surgery Pager [phone] documented in t his encounter Plan of Treatment Not on filedocumented as of this encounter Procedures + +--------+ + + + | Procedure Name | Priori | Date/Time | Associated Diagnosis | Comments | | | ty | | | | + +--------+ + + + | PROCEDURE NOTE | Routin | 10/23/2015 | | Results for this | | | e | 1:26 PM | | procedure are in the | | | | PST | | results section. | + +--------+ + + + | PROCEDURE NOTE | Routin | 10/23/2015 | | Results for this | | | e | 1:26 PM | | procedure are in the | | | | PST | | results section. | + +--------+ + + + | PROCEDURE NOTE | Routin | 10/23/2015 | | Results for this | | | e | 1:16 PM | | procedure are in the | | | | PST | | results section. | + +--------+ + + + | CBC (HEMOGRAM) ONLY | Urgent | 04/07/2015 | | Results for this | | | | 5:09 AM | | procedure are in the | | | | PDT | | results section. | + +--------+ + + + | CBC ONLY | Urgent | 04/07/2015 | | Results for this | | | | 5:09 AM | | procedure are in the | | | | PDT | | results section. | + +--------+ + + + | CBC (HEMOGRAM) ONLY | Urgent | 04/06/2015 | | Results for this | | | | 5:29 AM | | procedure are in the | | | | PDT | | results section. | + +--------+ + + + | RENAL FUNCTION SET | Urgent | 04/06/2015 | | Results for this | | (NA,K,CL,CO2,BUN,CRE | | 5:29 AM | | procedure are in the | | AT,GLUC,CA,PHOS,ALB | | PDT | | results section. | | ) | | | | | + +--------+ + + + | CBC ONLY | Urgent | 04/06/2015 | | Results for this | | | | 5:29 AM | | procedure are in the | | | | PDT | | results section. | + +--------+ + + + | MAGNESIUM, PLASMA | Urgent | 04/06/2015 | | Results for this | | | | 5:29 AM | | procedure are in the | | | | PDT | | results section. | + +--------+ + + + | CAPILLARY BLOOD | Routin | 04/05/2015 | Esophageal cancer | Results for this | | GLUCOSE (NO CHG), | e | 6:25 PM | (HCC) | procedure are in the | | POC | | PDT | | results section. | + +--------+ + + + | X-RAY PORTABLE CHEST | Routin | 04/05/2015 | | Results for this | | 1 VIEW | e | 1:13 PM | | procedure are in the | | | | PDT | | results section. | + +--------+ + + + | CAPILLARY BLOOD | Routin | 04/05/2015 | Esophageal cancer | Results for this | | GLUCOSE (NO CHG), | e | 12:37 PM | ([facility]) | procedure are in the | | POC | | PDT | | results section. | + +--------+ + + + | CAPILLARY BLOOD | Routin | 04/05/2015 | Esophageal cancer | Results for this | | GLUCOSE (NO CHG), | e | 5:40 AM | ([facility]) | procedure are in the | | POC | | PDT | | results section. | + +--------+ + + + | CBC (HEMOGRAM) ONLY | Urgent | 04/05/2015 | | Results for this | | | | 5:33 AM | | procedure are in the | | | | PDT | | results section. | + +--------+ + + + | RENAL FUNCTION SET | Urgent | 04/05/2015 | | Results for this | | (NA,K,CL,CO2,BUN,CRE | | 5:33 AM | | procedure are in the | | AT,GLUC,CA,PHOS,ALB | | PDT | | results section. | | ) | | | | | + +--------+ + + + | CBC ONLY | Urgent | 04/05/2015 | | Results for this | | | | 5:33 AM | | procedure are in the | | | | PDT | | results section. | + +--------+ + + + | MAGNESIUM, PLASMA | Urgent | 04/05/2015 | | Results for this | | | | 5:33 AM | | procedure are in the | | | | PDT | | results section. | + +--------+ + + + | X-RAY PORTABLE CHEST | Urgent | 04/05/2015 | | Results for this | | 1 VIEW | | 5:09 AM | | procedure are in the | | | | PDT | | results section. | + +--------+ + + + | CAPILLARY BLOOD | Routin | 04/04/2015 | Esophageal cancer | Results for this | | GLUCOSE (NO CHG), | e | 11:58 PM | (HCC) | procedure are in the | | POC | | PDT | | results section. | + +--------+ + + + | CAPILLARY BLOOD | Routin | 04/04/2015 | Esophageal cancer | Results for this | | GLUCOSE (NO CHG), | e | 5:57 PM | (HCC) | procedure are in the | | POC | | PDT | | results section. | + +--------+ + + + | CAPILLARY BLOOD | Routin | 04/04/2015 | Esophageal cancer | Results for this | | GLUCOSE (NO CHG), | e | 12:25 PM | (HCC) | procedure are in the | | POC | | PDT | | results section. | + +--------+ + + + | CAPILLARY BLOOD | Routin | 04/04/2015 | Esophageal cancer | Results for this | | GLUCOSE (NO CHG), | e | 6:11 AM | (HCC) | procedure are in the | | POC | | PDT | | results section. | + +--------+ + + + | CBC (HEMOGRAM) ONLY | Urgent | 04/04/2015 | | Results for this | | | | 5:08 AM | | procedure are in the | | | | PDT | | results section. | + +--------+ + + + | RENAL FUNCTION SET | Urgent | 04/04/2015 | | Results for this | | (NA,K,CL,CO2,BUN,CRE | | 5:08 AM | | procedure are in the | | AT,GLUC,CA,PHOS,ALB | | PDT | | results section. | | ) | | | | | + +--------+ + + + | CBC ONLY | Urgent | 04/04/2015 | | Results for this | | | | 5:08 AM | | procedure are in the | | | | PDT | | results section. | + +--------+ + + + | MAGNESIUM, PLASMA | Urgent | 04/04/2015 | | Results for this | | | | 5:08 AM | | procedure are in the | | | | PDT | | results section. | + +--------+ + + + | X-RAY PORTABLE CHEST | Urgent | 04/04/2015 | | Results for this | | 1 VIEW | | 3:24 AM | | procedure are in the | | | | PDT | | results section. | + +--------+ + + + | CARDIOLOGY | | 04/04/2015 | | Results for this | | | | 12:00 AM | | procedure are in the | | | | PDT | | results section. | + +--------+ + + + | CAPILLARY BLOOD | Routin | 04/03/2015 | Esophageal cancer | Results for this | | GLUCOSE (NO CHG), | e | 11:46 PM | (HCC) | procedure are in the | | POC | | PDT | | results section. | + +--------+ + + + | CAPILLARY BLOOD | Routin | 04/03/2015 | Esophageal cancer | Results for this | | GLUCOSE (NO CHG), | e | 6:13 PM | (HCC) | procedure are in the | | POC | | PDT | | results section. | + +--------+ + + + | CAPILLARY BLOOD | Routin | 04/03/2015 | Esophageal cancer | Results for this | | GLUCOSE (NO CHG), | e | 12:33 PM | ([facility]) | procedure are in the | | POC | | PDT | | results section. | + +--------+ + + + | X-RAY ESOPHAGRAM | Routin | 04/03/2015 | | Results for this | | | e | 11:10 AM | | procedure are in the | | | | PDT | | results section. | + +--------+ + + + | X-RAY PORTABLE CHEST | Urgent | 04/03/2015 | | Results for this | | 1 VIEW | | 7:24 AM | | procedure are in the | | | | PDT | | results section. | + +--------+ + + + | CAPILLARY BLOOD | Routin | 04/03/2015 | Esophageal cancer | Results for this | | GLUCOSE (NO CHG), | e | 6:07 AM | (HCC) | procedure are in the | | POC | | PDT | | results section. | + +--------+ + + + | CBC (HEMOGRAM) ONLY | Urgent | 04/03/2015 | | Results for this | | | | 5:40 AM | | procedure are in the | | | | PDT | | results section. | + +--------+ + + + | RENAL FUNCTION SET | Urgent | 04/03/2015 | | Results for this | | (NA,K,CL,CO2,BUN,CRE | | 5:40 AM | | procedure are in the | | AT,GLUC,CA,PHOS,ALB | | PDT | | results section. | | ) | | | | | + +--------+ + + + | CBC ONLY | Urgent | 04/03/2015 | | Results for this | | | | 5:40 AM | | procedure are in the | | | | PDT | | results section. | + +--------+ + + + | MAGNESIUM, PLASMA | Urgent | 04/03/2015 | | Results for this | | | | 5:40 AM | | procedure are in the | | | | PDT | | results section. | + +--------+ + + + | CAPILLARY BLOOD | Routin | 04/03/2015 | Esophageal cancer | Results for this | | GLUCOSE (NO CHG), | e | 12:07 AM | (HCC) | procedure are in the | | POC | | PDT | | results section. | + +--------+ + + + | CARDIOLOGY | | 04/03/2015 | | Results for this | | | | 12:00 AM | | procedure are in the | | | | PDT | | results section. | + +--------+ + + + | CAPILLARY BLOOD | Routin | 04/02/2015 | Esophageal cancer | Results for this | | GLUCOSE (NO CHG), | e | 6:42 PM | (HCC) | procedure are in the | | POC | | PDT | | results section. | + +--------+ + + + | CULTURE, TISSUE | Urgent | 04/02/2015 | | Results for this | | | | 4:30 PM | | procedure are in the | | | | PDT | | results section. | + +--------+ + + + | HEAD AND NECK | Electi | 04/02/2015 | ESOPHAGEAL CANCER | | | EXCISION | ve | 3:55 PM | | | | | Surgic | PDT | | | | | al | | | | + +--------+ + + + | CAPILLARY BLOOD | Routin | 04/02/2015 | Esophageal cancer | Results for this | | GLUCOSE (NO CHG), | e | 11:43 AM | (HCC) | procedure are in the | | POC | | PDT | | results section. | + +--------+ + + + | ANTIBODY SCREEN | Routin | 04/02/2015 | | Results for this | | | e | 9:15 AM | | procedure are in the | | | | PDT | | results section. | + +--------+ + + + | TYPE AND SCREEN | Routin | 04/02/2015 | | Results for this | | | e | 9:15 AM | | procedure are in the | | | | PDT | | results section. | + +--------+ + + + | ABO & RH TYPE | Routin | 04/02/2015 | | Results for this | | | e | 9:15 AM | | procedure are in the | | | | PDT | | results section. | + +--------+ + + + | X-RAY PORTABLE CHEST | Urgent | 04/02/2015 | | Results for this | | 1 VIEW | | 6:28 AM | | procedure are in the | | | | PDT | | results section. | + +--------+ + + + | CAPILLARY BLOOD | Routin | 04/02/2015 | Esophageal cancer | Results for this | | GLUCOSE (NO CHG), | e | 6:01 AM | (HCC) | procedure are in the | | POC | | PDT | | results section. | + +--------+ + + + | CBC (HEMOGRAM) ONLY | Urgent | 04/02/2015 | | Results for this | | | | 3:25 AM | | procedure are in the | | | | PDT | | results section. | + +--------+ + + + | RENAL FUNCTION SET | Urgent | 04/02/2015 | | Results for this | | (NA,K,CL,CO2,BUN,CRE | | 3:25 AM | | procedure are in the | | AT,GLUC,CA,PHOS,ALB | | PDT | | results section. | | ) | | | | | + +--------+ + + + | CBC ONLY | Urgent | 04/02/2015 | | Results for this | | | | 3:25 AM | | procedure are in the | | | | PDT | | results section. | + +--------+ + + + | MAGNESIUM, PLASMA | Urgent | 04/02/2015 | | Results for this | | | | 3:25 AM | | procedure are in the | | | | PDT | | results section. | + +--------+ + + + | CAPILLARY BLOOD | Routin | 04/02/2015 | Esophageal cancer | Results for this | | GLUCOSE (NO CHG), | e | 12:01 AM | (HCC) | procedure are in the | | POC | | PDT | | results section. | + +--------+ + + + | CARDIOLOGY | | 04/02/2015 | | Results for this | | | | 12:00 AM | | procedure are in the | | | | PDT | | results section. | + +--------+ + + + | CAPILLARY BLOOD | Routin | 04/01/2015 | Esophageal cancer | Results for this | | GLUCOSE (NO CHG), | e | 6:16 PM | (HCC) | procedure are in the | | POC | | PDT | | results section. | + +--------+ + + + | RENAL FUNCTION SET | Urgent | 04/01/2015 | | Results for this | | (NA,K,CL,CO2,BUN,CRE | | 5:08 PM | | procedure are in the | | AT,GLUC,CA,PHOS,ALB | | PDT | | results section. | | ) | | | | | + +--------+ + + + | X-RAY PORTABLE CHEST | Routin | 04/01/2015 | | Results for this | | 1 VIEW | e | 1:37 PM | | procedure are in the | | | | PDT | | results section. | + +--------+ + + + | CAPILLARY BLOOD | Routin | 04/01/2015 | Esophageal cancer | Results for this | | GLUCOSE (NO CHG), | e | 12:13 PM | ([facility]) | procedure are in the | | POC | | PDT | | results section. | + +--------+ + + + | X-RAY PORTABLE CHEST | Urgent | 04/01/2015 | | Results for this | | 1 VIEW | | 6:54 AM | | procedure are in the | | | | PDT | | results section. | + +--------+ + + + | CAPILLARY BLOOD | Routin | 04/01/2015 | Esophageal cancer | Results for this | | GLUCOSE (NO CHG), | e | 5:55 AM | ([facility]) | procedure are in the | | POC | | PDT | | results section. | + +--------+ + + + | CBC (HEMOGRAM) ONLY | Urgent | 04/01/2015 | | Results for this | | | | 5:47 AM | | procedure are in the | | | | PDT | | results section. | + +--------+ + + + | RENAL FUNCTION SET | Urgent | 04/01/2015 | | Results for this | | (NA,K,CL,CO2,BUN,CRE | | 5:47 AM | | procedure are in the | | AT,GLUC,CA,PHOS,ALB | | PDT | | results section. | | ) | | | | | + +--------+ + + + | CBC ONLY | Urgent | 04/01/2015 | | Results for this | | | | 5:47 AM | | procedure are in the | | | | PDT | | results section. | + +--------+ + + + | MAGNESIUM, PLASMA | Urgent | 04/01/2015 | | Results for this | | | | 5:47 AM | | procedure are in the | | | | PDT | | results section. | + +--------+ + + + | CAPILLARY BLOOD | Routin | 04/01/2015 | Esophageal cancer | Results for this | | GLUCOSE (NO CHG), | e | 12:19 AM | ([facility]) | procedure are in the | | POC | | PDT | | results section. | + +--------+ + + + | CARDIOLOGY | | 04/01/2015 | | Results for this | | | | 12:00 AM | | procedure are in the | | | | PDT | | results section. | + +--------+ + + + | CAPILLARY BLOOD | Routin | 03/31/2015 | Esophageal cancer | Results for this | | GLUCOSE (NO CHG), | e | 6:08 PM | ([facility]) | procedure are in the | | POC | | PDT | | results section. | + +--------+ + + + | CAPILLARY BLOOD | Routin | 03/31/2015 | Esophageal cancer | Results for this | | GLUCOSE (NO CHG), | e | 12:01 PM | (HCC) | procedure are in the | | POC | | PDT | | results section. | + +--------+ + + + | CAPILLARY BLOOD | Routin | 03/31/2015 | Esophageal cancer | Results for this | | GLUCOSE (NO CHG), | e | 7:45 AM | (HCC) | procedure are in the | | POC | | PDT | | results section. | + +--------+ + + + | X-RAY PORTABLE CHEST | Urgent | 03/31/2015 | | Results for this | | 1 VIEW | | 5:38 AM | | procedure are in the | | | | PDT | | results section. | + +--------+ + + + | CBC (HEMOGRAM) ONLY | Urgent | 03/31/2015 | | Results for this | | | | 5:19 AM | | procedure are in the | | | | PDT | | results section. | + +--------+ + + + | RENAL FUNCTION SET | Urgent | 03/31/2015 | | Results for this | | (NA,K,CL,CO2,BUN,CRE | | 5:19 AM | | procedure are in the | | AT,GLUC,CA,PHOS,ALB | | PDT | | results section. | | ) | | | | | + +--------+ + + + | CBC ONLY | Urgent | 03/31/2015 | | Results for this | | | | 5:19 AM | | procedure are in the | | | | PDT | | results section. | + +--------+ + + + | MAGNESIUM, PLASMA | Urgent | 03/31/2015 | | Results for this | | | | 5:19 AM | | procedure are in the | | | | PDT | | results section. | + +--------+ + + + | CAPILLARY BLOOD | Routin | 03/31/2015 | Esophageal cancer | Results for this | | GLUCOSE (NO CHG), | e | 12:05 AM | (HCC) | procedure are in the | | POC | | PDT | | results section. | + +--------+ + + + | CARDIOLOGY | | 03/31/2015 | | Results for this | | | | 12:00 AM | | procedure are in the | | | | PDT | | results section. | + +--------+ + + + | CAPILLARY BLOOD | Routin | 03/30/2015 | Esophageal cancer | Results for this | | GLUCOSE (NO CHG), | e | 6:19 PM | (HCC) | procedure are in the | | POC | | PDT | | results section. | + +--------+ + + + | X-RAY PORTABLE CHEST | Urgent | 03/30/2015 | | Results for this | | 1 VIEW | | 5:54 AM | | procedure are in the | | | | PDT | | results section. | + +--------+ + + + | CBC (HEMOGRAM) ONLY | Urgent | 03/30/2015 | | Results for this | | | | 4:42 AM | | procedure are in the | | | | PDT | | results section. | + +--------+ + + + | AMIODARONE, SERUM | Routin | 03/30/2015 | | Results for this | | | e | 4:42 AM | | procedure are in the | | | | PDT | | results section. | + +--------+ + + + | RENAL FUNCTION SET | Urgent | 03/30/2015 | | Results for this | | (NA,K,CL,CO2,BUN,CRE | | 4:42 AM | | procedure are in the | | AT,GLUC,CA,PHOS,ALB | | PDT | | results section. | | ) | | | | | + +--------+ + + + | CBC ONLY | Urgent | 03/30/2015 | | Results for this | | | | 4:42 AM | | procedure are in the | | | | PDT | | results section. | + +--------+ + + + | MAGNESIUM, PLASMA | Urgent | 03/30/2015 | | Results for this | | | | 4:42 AM | | procedure are in the | | | | PDT | | results section. | + +--------+ + + + | CAPILLARY BLOOD | Routin | 03/29/2015 | Esophageal cancer | Results for this | | GLUCOSE (NO CHG), | e | 7:57 PM | (HCC) | procedure are in the | | POC | | PDT | | results section. | + +--------+ + + + | CAPILLARY BLOOD | Routin | 03/29/2015 | Esophageal cancer | Results for this | | GLUCOSE (NO CHG), | e | 6:38 PM | (HCC) | procedure are in the | | POC | | PDT | | results section. | + +--------+ + + + | CULTURE, URINE [facility] | Routin | 03/29/2015 | | Results for this | | | e | 12:22 PM | | procedure are in the | | | | PDT | | results section. | + +--------+ + + + | UA, DIPSTICK ONLY | Routin | 03/29/2015 | | Results for this | | | e | 12:22 PM | | procedure are in the | | | | PDT | | results section. | + +--------+ + + + | URINE, MICROSCOPIC | Routin | 03/29/2015 | | Results for this | | EXAM | e | 12:22 PM | | procedure are in the | | | | PDT | | results section. | + +--------+ + + + | URINE SCREEN FOR | Routin | 03/29/2015 | | Results for this | | CULTURE | e | 12:22 PM | | procedure are in the | | | | PDT | | results section. | + +--------+ + + + | CAPILLARY BLOOD | Routin | 03/29/2015 | Esophageal cancer | Results for this | | GLUCOSE (NO CHG), | e | 12:00 PM | (HCC) | procedure are in the | | POC | | PDT | | results section. | + +--------+ + + + | CBC (HEMOGRAM) ONLY | Routin | 03/29/2015 | | Results for this | | | e | 6:38 AM | | procedure are in the | | | | PDT | | results section. | + +--------+ + + + | RENAL FUNCTION SET | Urgent | 03/29/2015 | | Results for this | | (NA,K,CL,CO2,BUN,CRE | | 6:38 AM | | procedure are in the | | AT,GLUC,CA,PHOS,ALB | | PDT | | results section. | | ) | | | | | + +--------+ + + + | CBC ONLY | Routin | 03/29/2015 | | Results for this | | | e | 6:38 AM | | procedure are in the | | | | PDT | | results section. | + +--------+ + + + | MAGNESIUM, PLASMA | Urgent | 03/29/2015 | | Results for this | | | | 6:38 AM | | procedure are in the | | | | PDT | | results section. | + +--------+ + + + | X-RAY PORTABLE CHEST | Urgent | 03/29/2015 | | Results for this | | 1 VIEW | | 5:57 AM | | procedure are in the | | | | PDT | | results section. | + +--------+ + + + | OPERATION RECORD | | 03/28/2015 | | Results for this | | | | 3:46 PM | | procedure are in the | | | | PDT | | results section. | + +--------+ + + + | CAPILLARY BLOOD | Routin | 03/28/2015 | Esophageal cancer | Results for this | | GLUCOSE (NO CHG), | e | 12:44 PM | (HCC) | procedure are in the | | POC | | PDT | | results section. | + +--------+ + + + | X-RAY PORTABLE CHEST | Urgent | 03/28/2015 | | Results for this | | 1 VIEW | | 6:05 AM | | procedure are in the | | | | PDT | | results section. | + +--------+ + + + | CBC (HEMOGRAM) ONLY | Urgent | 03/28/2015 | | Results for this | | | | 2:11 AM | | procedure are in the | | | | PDT | | results section. | + +--------+ + + + | RENAL FUNCTION SET | Urgent | 03/28/2015 | | Results for this | | (NA,K,CL,CO2,BUN,CRE | | 2:11 AM | | procedure are in the | | AT,GLUC,CA,PHOS,ALB | | PDT | | results section. | | ) | | | | | + +--------+ + + + | CBC ONLY | Urgent | 03/28/2015 | | Results for this | | | | 2:11 AM | | procedure are in the | | | | PDT | | results section. | + +--------+ + + + | MAGNESIUM, PLASMA | Urgent | 03/28/2015 | | Results for this | | | | 2:11 AM | | procedure are in the | | | | PDT | | results section. | + +--------+ + + + | X-RAY PORTABLE CHEST | Urgent | 03/27/2015 | | Results for this | | 1 VIEW | | 3:50 PM | | procedure are in the | | | | PDT | | results section. | + +--------+ + + + | CAPILLARY BLOOD | Routin | 03/27/2015 | Esophageal cancer | Results for this | | GLUCOSE (NO CHG), | e | 3:33 PM | (HCC) | procedure are in the | | POC | | PDT | | results section. | + +--------+ + + + | BLOOD GASES, | Urgent | 03/27/2015 | | Results for this | | ARTERIAL - LAB | | 3:23 PM | | procedure are in the | | | | PDT | | results section. | + +--------+ + + + | CBC (HEMOGRAM) ONLY | Urgent | 03/27/2015 | | Results for this | | | | 3:22 PM | | procedure are in the | | | | PDT | | results section. | + +--------+ + + + | RENAL FUNCTION SET | Urgent | 03/27/2015 | | Results for this | | (NA,K,CL,CO2,BUN,CRE | | 3:22 PM | | procedure are in the | | AT,GLUC,CA,PHOS,ALB | | PDT | | results section. | | ) | | | | | + +--------+ + + + | CBC ONLY | Urgent | 03/27/2015 | | Results for this | | | | 3:22 PM | | procedure are in the | | | | PDT | | results section. | + +--------+ + + + | LACTATE (ART), POC | Routin | 03/27/2015 | Esophageal cancer | Results for this | | ISTAT | e | 2:16 PM | (HCC) | procedure are in the | | | | PDT | | results section. | + +--------+ + + + | HEMOGLOBIN-COOX, POC | Routin | 03/27/2015 | Esophageal cancer | Results for this | | | e | 2:16 PM | (HCC) | procedure are in the | | | | PDT | | results section. | + +--------+ + + + | SODIUM, POC | Routin | 03/27/2015 | Esophageal cancer | Results for this | | | e | 2:16 PM | (HCC) | procedure are in the | | | | PDT | | results section. | + +--------+ + + + | POTASSIUM, POC | Routin | 03/27/2015 | Esophageal cancer | Results for this | | | e | 2:16 PM | (HCC) | procedure are in the | | | | PDT | | results section. | + +--------+ + + + | GLUCOSE, POC | Routin | 03/27/2015 | Esophageal cancer | Results for this | | | e | 2:16 PM | (HCC) | procedure are in the | | | | PDT | | results section. | + +--------+ + + + | ARTERIAL BLOOD GAS, | Routin | 03/27/2015 | Esophageal cancer | Results for this | | POC | e | 2:16 PM | (HCC) | procedure are in the | | | | PDT | | results section. | + +--------+ + + + | CHLORIDE, POC | Routin | 03/27/2015 | Esophageal cancer | Results for this | | | e | 2:16 PM | (HCC) | procedure are in the | | | | PDT | | results section. | + +--------+ + + + | FELICIA IONIZED CA, POC | Routin | 03/27/2015 | Esophageal cancer | Results for this | | | e | 2:16 PM | (HCC) | procedure are in the | | | | PDT | | results section. | + +--------+ + + + | LACTATE (ART), POC | Routin | 03/27/2015 | Esophageal cancer | Results for this | | ISTAT | e | 12:40 PM | (HCC) | procedure are in the | | | | PDT | | results section. | + +--------+ + + + | JOSUÉ-DONN POLLOCK | Routin | 03/27/2015 | Esophageal cancer | Results for this | | | e | 12:40 PM | (HCC) | procedure are in the | | | | PDT | | results section. | + +--------+ + + + | DONN MORGAN | Routin | 03/27/2015 | Esophageal cancer | Results for this | | | e | 12:40 PM | (HCC) | procedure are in the | | | | PDT | | results section. | + +--------+ + + + | POTASSIUM POC | Routin | 03/27/2015 | Esophageal cancer | Results for this | | | e | 12:40 PM | (HCC) | procedure are in the | | | | PDT | | results section. | + +--------+ + + + | GLUCOSE, POC | Routin | 03/27/2015 | Esophageal cancer | Results for this | | | e | 12:40 PM | (HCC) | procedure are in the | | | | PDT | | results section. | + +--------+ + + + | ARTERIAL BLOOD GAS, | Routin | 03/27/2015 | Esophageal cancer | Results for this | | POC | e | 12:40 PM | (HCC) | procedure are in the | | | | PDT | | results section. | + +--------+ + + + | CHLORIDE, POC | Routin | 03/27/2015 | Esophageal cancer | Results for this | | | e | 12:40 PM | (HCC) | procedure are in the | | | | PDT | | results section. | + +--------+ + + + | FELICIA IONIZED CA, POC | Routin | 03/27/2015 | Esophageal cancer | Results for this | | | e | 12:40 PM | (HCC) | procedure are in the | | | | PDT | | results section. | + +--------+ + + + | LACTATE (ART), POC | Routin | 03/27/2015 | Esophageal cancer | Results for this | | ISTAT | e | 11:31 AM | (HCC) | procedure are in the | | | | PDT | | results section. | + +--------+ + + + | HEMOGLOBIN-GOYOOX, POC | Routin | 03/27/2015 | Esophageal cancer | Results for this | | | e | 11:31 AM | (HCC) | procedure are in the | | | | PDT | | results section. | + +--------+ + + + | SODIUM, POC | Routin | 03/27/2015 | Esophageal cancer | Results for this | | | e | 11:31 AM | (HCC) | procedure are in the | | | | PDT | | results section. | + +--------+ + + + | POTASSIUM, POC | Routin | 03/27/2015 | Esophageal cancer | Results for this | | | e | 11:31 AM | (HCC) | procedure are in the | | | | PDT | | results section. | + +--------+ + + + | GLUCOSE, POC | Routin | 03/27/2015 | Esophageal cancer | Results for this | | | e | 11:31 AM | (HCC) | procedure are in the | | | | PDT | | results section. | + +--------+ + + + | ARTERIAL BLOOD GAS, | Routin | 03/27/2015 | Esophageal cancer | Results for this | | POC | e | 11:31 AM | (HCC) | procedure are in the | | | | PDT | | results section. | + +--------+ + + + | CHLORIDE, POC | Routin | 03/27/2015 | Esophageal cancer | Results for this | | | e | 11:31 AM | (HCC) | procedure are in the | | | | PDT | | results section. | + +--------+ + + + | FELICIA ZOILA CA POC | Routin | 03/27/2015 | Esophageal cancer | Results for this | | | e | 11:31 AM | (HCC) | procedure are in the | | | | PDT | | results section. | + +--------+ + + + | LOUISE (ART)DONN | Routin | 03/27/2015 | Esophageal cancer | Results for this | | ISTAT | e | 9:24 AM | (HCC) | procedure are in the | | | | PDT | | results section. | + +--------+ + + + | HEMOGLOBIN-PHILL POC | Routin | 03/27/2015 | Esophageal cancer | Results for this | | | e | 9:24 AM | (HCC) | procedure are in the | | | | PDT | | results section. | + +--------+ + + + | SODIUM, POC | Routin | 03/27/2015 | Esophageal cancer | Results for this | | | e | 9:24 AM | (HCC) | procedure are in the | | | | PDT | | results section. | + +--------+ + + + | POTASSIUM, POC | Routin | 03/27/2015 | Esophageal cancer | Results for this | | | e | 9:24 AM | (HCC) | procedure are in the | | | | PDT | | results section. | + +--------+ + + + | GLUCOSE, POC | Routin | 03/27/2015 | Esophageal cancer | Results for this | | | e | 9:24 AM | (HCC) | procedure are in the | | | | PDT | | results section. | + +--------+ + + + | ARTERIAL BLOOD GAS, | Routin | 03/27/2015 | Esophageal cancer | Results for this | | POC | e | 9:24 AM | (HCC) | procedure are in the | | | | PDT | | results section. | + +--------+ + + + | DONN PENA | Routin | 03/27/2015 | Esophageal cancer | Results for this | | | e | 9:24 AM | (HCC) | procedure are in the | | | | PDT | | results section. | + +--------+ + + + | FELICIA DONN ANDRADE | Routin | 03/27/2015 | Esophageal cancer | Results for this | | | e | 9:24 AM | (HCC) | procedure are in the | | | | PDT | | results section. | + +--------+ + + + | MINIMALLY INVASIVE | Electi | 03/27/2015 | ESOPHAGEAL CANCER | | | TRANSHIATAL | ve | 7:28 AM | | | | ESOPHAGECTOMY | Surgic | PDT | | | | | al | | | | + +--------+ + + + +---+--------+ | | | | | Specia | | | l | | | Needs | | | ICU | | | POST - | | | TSICU | | | TEAM | +---+--------+ + +--------+ +---+ + | CARDIOLOGY | | 03/27/2015 | | Results for this | | | | 12:00 AM | | procedure are in the | | | | PDT | | results section. | + +--------+ +---+ + | CARDIOLOGY | | 03/27/2015 | | Results for this | | | | 12:00 AM | | procedure are in the | | | | PDT | | results section. | + +--------+ +---+ + | SURGICAL PATHOLOGY | Routin | 03/27/2015 | | Results for this | | | e | | | procedure are in the | | | | | | results section. | + +--------+ +---+ + documented in this encounter Results PROCEDURE NOTE (10/23/2015 1:26 PM PST)PROCEDURE NOTE (10/23/2015 1:26 PM PST)PROCEDURE N OTE (10/23/2015 1:16 PM PST)X-RAY ESOPHAGRAM (04/11/2015 9:30 AM PDT) + + + + + + | Component | Value | Ref Range | Performed | Pathologist | | | | | At | Signature | + + + + + + | ESOPHAGUS | EXAM: ESOPHAGUS 04/11/15 | | | | | | 09:30:00 HISTORY: | | | | | | Gastric pull-through | | | | | | with a small proximal | | | | | | anastomotic leak, follow | | | | | | upleak COMPARISON: | | | | | | 04/03/15 FINDINGS: The | | | | | | initial image | | | | | | demonstrates 2 Morales | | | | | | drains overlying | | | | | | thethoracic inlet. | | | | | | Sternotomy wires are | | | | | | intact and well aligned. | | | | | | The gastricconduit is | | | | | | nondistended. Omnipaque | | | | | | 300 contrast was then | | | | | | given while the patient | | | | | | drinking | | | | | | underfluoroscopic | | | | | | visualization in the | | | | | | standing position. | | | | | | Shallow obliques | | | | | | andlateral projections | | | | | | were performed. The | | | | | | procedure was performed | | | | | | by Dr. Frias, | | | | | | faculty radiologist. | | | | | | Total fluoroscopic time | | | | | | was 2 minutes and | | | | | | 45seconds. Contrast | | | | | | passed freely through | | | | | | the gastric pull-through | | | | | | and below thediaphragm. | | | | | | The previously noted | | | | | | proximal anterior left | | | | | | small leak at the | | | | | | levelof the clavicular | | | | | | heads was again seen. It | | | | | | measures approximately | | | | | | 2 cm and hasa smoothly | | | | | | marginated border. It | | | | | | has decreased in width | | | | | | since the previousexam. | | | | | | No other abnormality is | | | | | | seen. IMPRESSION: | | | | | | Persistent small | | | | | | proximal anastomotic | | | | | | blind-ending | | | | | | leak/collection, stable | | | | | | toslightly decreased in | | | | | | size. Attending | | | | | | Radiologists: TOMA Ramirez | | | | | | SUMAN GONGORAuthor: TOMA | | | | | | Ashley GONGORA MD I have | | | | [...] | | | | | | ROLAN 04/11/2015 | | | | | | 10:00 AM | | | | + + [...] | | + +---------+ + + CBC (HEMOGRAM) ONLY (04/07/2015 5:09 AM PDT) + + + + + + | Component | Value | Ref Range | Performed | Pathologist | | | | | At | Signature | + + + + + + | WHITE CELL | 15.82 (H) | 4.40 - 11.00 | [facility] | | | COUNT | | K/cu mm | LABORATORY | | | | | | SERVICES, | | | | | | CORE | | + + + + + + | RED CELL | 3.07 (L) | 4.50 - 6.00 | [facility] | | | COUNT | | M/cu mm | LABORATORY | | | | | | SERVICES, | | | | | | CORE | | + + + + + + | HEMOGLOBIN | 9.4 (L) | 13.5 - 17.5 | [facility] | | | | | g/dL | LABORATORY | | | | | | SERVICES, | | | | | | CORE | | + + + + + + | HEMATOCRIT | 28.5 (L) | 41.0 - 53.0 % | [facility] | | | | | | LABORATORY | | | | | | SERVICES, | | | | | | CORE | | + + + + + + | MCV | 92.8 | 80.0 - 96.0 fL | [facility] | | | | | | LABORATORY | | | | | | SERVICES, | | | | | | CORE | | + + + + + + | MCHC | 33.0 | 33.0 - 35.5 | [facility] | | | | | g/dL | LABORATORY | | | | | | SERVICES, | | | | | | CORE | | + + + + + + | RDW SD | 45.8 | 35.1 - 46.3 fL | [facility] | | | | | | LABORATORY | | | | | | SERVICES, | | | | | | CORE | | + + + + + + | PLATELET | 436 (H) | 150 - 400 K/cu | [facility] | | | COUNT | | mm | LABORATORY | | | | | | SERVICES, | | | | | | CORE | | + + + + + + | MPV | 10.2 | 9.7 - 12.3 fL | [facility] [...] + + | Blood - Blood | + + + + + + + | Performing | Address | City/State/Zipcode | Phone Number | | Organization | | | | + + + + + | [facility] | [address] | [place] [address] | | | SERVICES, CORE | [address] | | | + + + + + CBC (HEMOGRAM) ONLY (04/06/2015 5:29 AM PDT) + + + + + + | Component | Value | Ref Range | Performed | Pathologist | | | | | At | Signature | + + + + + + | WHITE CELL | 14.76 (H) | 4.40 - 11.00 | [facility] | | | COUNT | | K/cu mm | LABORATORY | | | | | | SERVICES, | | | | | | CORE | | + + + + + + | RED CELL | 2.99 (L) | 4.50 - 6.00 | [facility] | | | COUNT | | M/cu mm | LABORATORY | | | | | | SERVICES, | | | | | | CORE | | + + + + + + | HEMOGLOBIN | 9.1 (L) | 13.5 - 17.5 | [facility] | | | | | g/dL | LABORATORY | | | | | | SERVICES, | | | | | | CORE | | + + + + + + | HEMATOCRIT | 27.6 (L) | 41.0 - 53.0 % | [facility] | | | | | | LABORATORY | | | | | | SERVICES, | | | | | | CORE | | + + + + + + | MCV | 92.3 | 80.0 - 96.0 fL | [facility] | | | | | | LABORATORY | | | | | | SERVICES, | | | | | | CORE | | + + + + + + | MCHC | 33.0 | 33.0 - 35.5 | [facility] | | | | | g/dL | LABORATORY | | | | | | SERVICES, | | | | | | CORE | | + + + + + + | RDW SD | 45.3 | 35.1 - 46.3 fL | [facility] | | | | | | LABORATORY | | | | | | SERVICES, | | | | | | CORE | | + + + + + + | PLATELET | 411 (H) | 150 - 400 K/cu | [facility] | | | COUNT | | mm | LABORATORY | | | | | | SERVICES, | | | | | | CORE | | + + + + + + | MPV | 10.0 | 9.7 - 12.3 fL | [facility] [...] + + | Blood - Blood | + + + + + + + | Performing | Address | City/State/Zipcode | Phone Number | | Organization | | | | + + + + + | [facility] | [address] | [place] [address] | | | SERVICES, CORE | [address] | | | + + + + + MAGNESIUM, PLASMA (04/06/2015 5:29 AM PDT) + +-------+ + + + | Component | Value | Ref Range | Performed | Pathologist | | | | | At | Signature | + +-------+ + + + | MAGNESIUM,P | 1.9 | 1.8 - 2.5 mg/dL | [facility] | | | LASMA | | | LABORATORY | | | | | | SERVICES, | | | | | | CORE | | + +-------+ + + + + + | Specimen | + + | Blood - Blood | + + + + + + + | Performing | Address | City/State/Zipcode | Phone Number | | Organization | | | | + + + + + | [facility] | [address] | [place] [address] | | | SERVICES, CORE | [address] | | | + + + + + RENAL FUNCTION SET (NA,K,CL,CO2,BUN,CREAT,GLUC,CA,PHOS,ALB ) (04/06/2015 5:29 AM PDT) + +---------+ + + + | Component | Value | Ref Range | Performed | Pathologist | | | | | At | Signature | + +---------+ + + + | GLUCOSE, | 119 (H) | 60 - 99 mg/dL | [facility] | | | PLASMA | | | LABORATORY | | | (LAB) | | | SERVICES, | | | | | | CORE | | + +---------+ + + + | BUN, PLASMA | 14 | 6 - 20 mg/dL | [facility] | | | (LAB) | | | LABORATORY | | | | | | SERVICES, | | | | | | CORE | | + +---------+ + + + | CREATININE | 0.93 | 0.70 - 1.30 | [facility] | | | PLASMA | | mg/dL | LABORATORY | | | (LAB) | | | SERVICES, | | | | | | CORE | | + +---------+ + + + | EGFR | >60 | >60 mL/min | [facility] | | | - | | | LABORATORY | | | BELGIAN | | | SERVICES, | | | | | | CORE | | + +---------+ + + + | EGFR NON | >60 | >60 mL/min | [facility] | | | -MILAGRO | | | LABORATORY | | | RICAN | | | SERVICES, | | | | | | CORE | | + +---------+ + + + | SODIUM, | 139 | 136 - 145 | [facility] | | | PLASMA | | mmol/L | LABORATORY | | | (LAB) | | | SERVICES, | | | | | | CORE | | + +---------+ + + + | POTASSIUM, | 4.1 | 3.4 - 5.0 | [facility] | | | PLASMA | | mmol/L | LABORATORY | | | (LAB) | | | SERVICES, | | | | | | CORE | | + +---------+ + + + | CHLORIDE, | 106 | 97 - 108 mmol/L | [facility] | | | PLASMA | | | LABORATORY | | | (LAB) | | | SERVICES, | | | | | | CORE | | + +---------+ + + + | TOTAL CO2, | 27 | 21 - 32 mmol/L | [facility] | | | PLASMA | | | LABORATORY | | | (LAB) | | | SERVICES, | | | | | | CORE | | + +---------+ + + + | CALCIUM, | 8.9 | 8.6 - 10.2 | [facility] | | | PLASMA | | mg/dL | LABORATORY | | | (LAB) | | | SERVICES, | | | | | | CORE | | + +---------+ + + + | ALBUMIN, | 1.7 (L) | 3.5 - 4.7 g/dL | [facility] | | | PLASMA | | | LABORATORY | | | (LAB) | | | SERVICES, | | | | | | CORE | | + +---------+ + + + | PHOSPHORUS, | 2.5 | 2.4 - 4.7 mg/dL | [facility] | | | PLASMA | | | LABORATORY | | | (LAB) | | | SERVICES, | | | | | | CORE | | + +---------+ + + + | POTASSIUM | No Hemo | | [facility] | | | CMNT | | | LABORATORY | | | | | | SERVICES, | | | | | | CORE | | + +---------+ + + + | ANION GAP | 6 | mmol/L | [facility] | | | | | | LABORATORY | | | | | | SERVICES, | | | | | | CORE | | + +---------+ + + + | ANION | 11 | 4 - 11 mmol/L | [facility] | | | GAP(ALB | | | LABORATORY | | | CORRECTED) | | | SERVICES, | | | | | | CORE | | + +---------+ + + + + + | Specimen | + + | Blood - Blood | + + + + + | Narrative | Performed At | + + + | GFR is estimated using the MDRD equation recommended by the | [facility] | | National Kidney Disease Education Program. Estimated GFR | LABORATORY | | Interpretive Information: <60 mL/min/1.73 sq m | SERVICES, CORE | | Chronic Kidney Disease <15 mL/min/1.73 sq m | | | Kidney Failure Estimated GFR greater that 60 mL/min/1.73 sq m is of | | | limited clinical value. The MDRD equation is not valid in the | | | following situations: - Patients under 18 years of age - Severe | | | malnutrition or obesity - Vegetarian diet - Rapidly changing kidney | | | function | | + + + + + + + + | Performing | Address | City/State/Zipcode | Phone Number | | Organization | | | | + + + + + | [facility] | [address] | [place] [address] | | | SERVICES, CORE | [address] | | | + + + + + CAPILLARY BLOOD GLUCOSE (NO CHG), POC (04/05/2015 6:25 PM PDT) + +---------+ + + + | Component | Value | Ref Range | Performed | Pathologist | | | | | At | Signature | + +---------+ + + + | BLOOD | 124 (H) | 60 - 99 mg/dL | [facility] | | | GLUCOSE, | | | [facility] | | | POC | | | [facility] | | | | | | OF CARE | | | | | | TESTS | | + +---------+ + + + + + | Specimen | + + | | + + + + + + + | Performing | Address | City/State/Zipcode | Phone Number | | Organization | | | | + + + + + | [facility] | [address] | [place], [place] | | | [facility]INT OF CARE | [address] | [phone] | | | TESTS | | | | + + + + + X-RAY PORTABLE CHEST 1 VIEW (04/05/2015 1:13 PM PDT) + + + + + + | Component | Value | Ref Range | Performed | Pathologist | | | | | At | Signature | + + + + + + | X-RAY | STUDY: ND CHEST 1 VIEW | | | | | PORTABLE | 04/05/15 13:13:00 | | | | | CHEST 1 | HISTORY: Chest tube | | | | | VIEW | removal COMPARISON: Same | | | | | | day | | | | | | FINDINGS:Right-sided | | | | | | chest tube has been | | | | | | removed. There is no | | | | | | pneumothorax. | | | | | | Mildbilateral lower | | | | | | lung atelectasis and | | | | | | small bilateral pleural | | | | | | effusions areunchanged. | | | | | | The cardiomediastinal | | | | | | silhouette is stable. | | | | | | IMPRESSION: No | | | | | | pneumothorax following | | | | | | right chest tube | | | | | | removal. Unchanged | | | | | | bilateral lower lung | | | | | | atelectasis and small | | | | | | effusions. Attending | | | | | | Radiologists: AMBERLY MULLEN, | | | | | | MDAuthor: AMBERLY MULLEN MD | | | | | | I have personally | | | | | | viewed this | | | | | | procedure/exam, reviewed | | | | | | this report, and | | | | | | madechanges to it where | | | | | | appropriate. | | | | | | Final/Electronically | | | | | | signed / AMBERLY MULLEN | | | | | | 04/05/2015 15:15 PM | | | | + + [...] | | | + +---------+ + + CAPILLARY BLOOD GLUCOSE (NO CHG), POC (04/05/2015 12:37 PM PDT) + +---------+ + + + | Component | Value | Ref Range | Performed | Pathologist | | | | | At | Signature | + +---------+ + + + | BLOOD | 124 (H) | 60 - 99 mg/dL | [facility] - | | | GLUCOSE, | | | [place] | | | POC | | | [place] | | | | | | [facility] | | | | | | TESTS | | + +---------+ + + + + + | Specimen | + + | | + + + + + + + | Performing | Address | City/State/Zipcode | Phone Number | | Organization | | | | + + + + + | [facility] | [address] | [place], [place] | | | [facility] | [facility] | [address] | | | TESTS | | | | + + + + + CAPILLARY BLOOD GLUCOSE (NO CHG), POC (04/05/2015 5:40 AM PDT) + +---------+ + + + | Component | Value | Ref Range | Performed | Pathologist | | | | | At | Signature | + +---------+ + + + | BLOOD | 145 (H) | 60 - 99 mg/dL | [facility] - | | | GLUCOSE, | | | [place] | | | POC | | | [facility] | | | | | | OF CARE | | | | | | TESTS | | + +---------+ + + + + + | Specimen | + + | | + + + + + + + | Performing | Address | City/State/Zipcode | Phone Number | | Organization | | | | + + + + + | [facility] | [address] | [place], [place] | | | [facility] | [address] | [address] | | | TESTS | | | | + + + + + CBC (HEMOGRAM) ONLY (04/05/2015 5:33 AM PDT) + + + + + + | Component | Value | Ref Range | Performed | Pathologist | | | | | At | Signature | + + + + + + | WHITE CELL | 15.76 (H) | 4.40 - 11.00 | [facility] | | | COUNT | | K/cu mm | LABORATORY | | | | | | SERVICES, | | | | | | CORE | | + + + + + + | RED CELL | 3.02 (L) | 4.50 - 6.00 | [facility] | | | COUNT | | M/cu mm | LABORATORY | | | | | | SERVICES, | | | | | | CORE | | + + + + + + | HEMOGLOBIN | 9.2 (L) | 13.5 - 17.5 | [facility] | | | | | g/dL | LABORATORY | | | | | | SERVICES, | | | | | | CORE | | + + + + + + | HEMATOCRIT | 27.9 (L) | 41.0 - 53.0 % | [facility] | | | | | | LABORATORY | | | | | | SERVICES, | | | | | | CORE | | + + + + + + | MCV | 92.4 | 80.0 - 96.0 fL | [facility] | | | | | | LABORATORY | | | | | | SERVICES, | | | | | | CORE | | + + + + + + | [facility] | 33.0 | 33.0 - 35.5 | [facility] | | | | | g/dL | LABORATORY | | | | | | SERVICES, | | | | | | CORE | | + + + + + + | RDW SD | 45.1 | 35.1 - 46.3 fL | [facility] | | | | | | LABORATORY | | | | | | SERVICES, | | | | | | CORE | | + + + + + + | PLATELET | 422 (H) | 150 - 400 K/cu | [facility] | | | COUNT | | mm | LABORATORY | | | | | | SERVICES, | | | | | | CORE | | + + + + + + | MPV | 10.4 | 9.7 - 12.3 fL | [facility] [...] + + | Blood - Blood | + + + + + + + | Performing | Address | City/State/Zipcode | Phone Number | | Organization | | | | + + + + + | [facility] | [address] | [place] [address] | | | SERVICES, CORE | [address] | | | + + + + + MAGNESIUM, PLASMA (04/05/2015 5:33 AM PDT) + +-------+ + + + | Component | Value | Ref Range | Performed | Pathologist | | | | | At | Signature | + +-------+ + + + | MAGNESIUM,P | 1.9 | 1.8 - 2.5 mg/dL | [facility] | | | LASMA | | | LABORATORY | | | | | | SERVICES, | | | | | | CORE | | + +-------+ + + + + + | Specimen | + + | Blood - Blood | + + + + + + + | Performing | Address | City/State/Zipcode | Phone Number | | Organization | | | | + + + + + | [facility] | [address] | [place] [address] | | | SERVICES, CORE | [address] | | | + + + + + RENAL FUNCTION SET (NA,K,CL,CO2,BUN,CREAT,GLUC,CA,PHOS,ALB ) (04/05/2015 5:33 AM PDT) + +---------+ + + + | Component | Value | Ref Range | Performed | Pathologist | | | | | At | Signature | + +---------+ + + + | GLUCOSE, | 128 (H) | 60 - 99 mg/dL | [facility] | | | PLASMA | | | LABORATORY | | | (LAB) | | | SERVICES, | | | | | | CORE | | + +---------+ + + + | BUN, PLASMA | 15 | 6 - 20 mg/dL | [facility] | | | (LAB) | | | LABORATORY | | | | | | SERVICES, | | | | | | CORE | | + +---------+ + + + | CREATININE | 0.88 | 0.70 - 1.30 | [facility] | | | PLASMA | | mg/dL | LABORATORY | | | (LAB) | | | SERVICES, | | | | | | CORE | | + +---------+ + + + | EGFR | >60 | >60 mL/min | [facility] | | | - | | | LABORATORY | | | BELGIAN | | | SERVICES, | | | | | | CORE | | + +---------+ + + + | EGFR NON | >60 | >60 mL/min | [facility] | | | -MILAGRO | | | LABORATORY | | | RICAN | | | SERVICES, | | | | | | CORE | | + +---------+ + + + | SODIUM, | 139 | 136 - 145 | [facility] | | | PLASMA | | mmol/L | LABORATORY | | | (LAB) | | | SERVICES, | | | | | | CORE | | + +---------+ + + + | POTASSIUM, | 3.5 | 3.4 - 5.0 | [facility] | | | PLASMA | | mmol/L | LABORATORY | | | (LAB) | | | SERVICES, | | | | | | CORE | | + +---------+ + + + | CHLORIDE, | 106 | 97 - 108 mmol/L | [facility] | | | PLASMA | | | LABORATORY | | | (LAB) | | | SERVICES, | | | | | | CORE | | + +---------+ + + + | TOTAL CO2, | 28 | 21 - 32 mmol/L | [facility] | | | PLASMA | | | LABORATORY | | | (LAB) | | | SERVICES, | | | | | | CORE | | + +---------+ + + + | CALCIUM, | 8.7 | 8.6 - 10.2 | [facility] | | | PLASMA | | mg/dL | LABORATORY | | | (LAB) | | | SERVICES, | | | | | | CORE | | + +---------+ + + + | ALBUMIN, | 1.7 (L) | 3.5 - 4.7 g/dL | [facility] | | | PLASMA | | | LABORATORY | | | (LAB) | | | SERVICES, | | | | | | CORE | | + +---------+ + + + | PHOSPHORUS, | 1.8 (L) | 2.4 - 4.7 mg/dL | [facility] | | | PLASMA | | | LABORATORY | | | (LAB) | | | SERVICES, | | | | | | CORE | | + +---------+ + + + | POTASSIUM | No Hemo | | [facility] | | | CMNT | | | LABORATORY | | | | | | SERVICES, | | | | | | CORE | | + +---------+ + + + | ANION GAP | 5 | mmol/L | [facility] | | | | | | LABORATORY | | | | | | SERVICES, | | | | | | CORE | | + +---------+ + + + | ANION | 10 | 4 - 11 mmol/L | [facility] | | | GAP(ALB | | | LABORATORY | | | CORRECTED) | | | SERVICES, | | | | | | CORE | | + +---------+ + + + + + | Specimen | + + | Blood - Blood | + + + + + | Narrative | Performed At | + + + | GFR is estimated using the MDRD equation recommended by the | [facility] | | National Kidney Disease Education Program. Estimated GFR | LABORATORY | | Interpretive Information: <60 mL/min/1.73 sq m | [facility], CORE | | Chronic Kidney Disease <15 mL/min/1.73 sq m | | | Kidney Failure Estimated GFR greater that 60 mL/min/1.73 sq m is of | | | limited clinical value. The MDRD equation is not valid in the | | | following situations: - Patients under 18 years of age - Severe | | | malnutrition or obesity - Vegetarian diet - Rapidly changing kidney | | | function | | + + + + + + + + | Performing | Address | City/State/Zipcode | Phone Number | | Organization | | | | + + + + + | [facility] | [address] | [place] [address] | | | [place] | [address] | | | + + + + + X-RAY PORTABLE CHEST 1 VIEW (04/05/2015 5:09 AM PDT) + + + + + + | Component | Value | Ref Range | Performed | Pathologist | | | | | At | Signature | + + + + + + | X-RAY | EXAM: ND CHEST 1 VIEW | | | | | PORTABLE | 04/05/15 05:09:00 | | | | | CHEST 1 | HISTORY: Status post | | | | | VIEW | esophagectomy. | | | | | | COMPARISON: 04/04/2015. | | | | | | FINDINGS:Sternal wires | | | | | | are intact and | | | | | | unchanged. Mediastinal | | | | | | drains and | | | | | | right-sidedchest tube | | | | | | are unchanged. | | | | | | Bilateral lower lung | | | | | | atelectasis is | | | | | | moderatelyimproved. No | | | | | | definite pneumothorax is | | | | | | seen. Small left | | | | | | pleural effusion isagain | | | | | | seen. IMPRESSION: 1. | | | | | | Improving atelectasis. | | | | | | 2. Unchanged small left | | | | | | pleural effusion. | | | | | | Attending Radiologists: | | | | | | AMBERLY PAZ, MDAuthor: | | | | | | NHAN OCHOA MD I have | | | | | | personally viewed this | | | | | | procedure/exam, reviewed | | | | | | this report, and | | | | | | madechanges to it where | | | | | | appropriate. | | | | | | Final/Electronically | | | | | | signed / AMBERLY MULLEN | | | | | | 04/05/2015 9:13 AM | | | | + + [...] | | | + +---------+ + + CAPILLARY BLOOD GLUCOSE (NO CHG), POC (04/04/2015 11:58 PM PDT) + +---------+ + + + | Component | Value | Ref Range | Performed | Pathologist | | | | | At | Signature | + +---------+ + + + | BLOOD | 123 (H) | 60 - 99 mg/dL | [facility] - | | | GLUCOSE, | | | [facility] | | | POC | | | [place] | | | | | | OF CARE | | | | | | TESTS | | + +---------+ + + + + + | Specimen | + + | | + + + + + + + | Performing | Address | City/State/Zipcode | Phone Number | | Organization | | | | + + + + + | [facility] | [address] | [place], [place] | | | [facility] | [facility] | [address] | | | TESTS | | | | + + + + + CAPILLARY BLOOD GLUCOSE (NO CHG), POC (04/04/2015 5:57 PM PDT) + +---------+ + + + | Component | Value | Ref Range | Performed | Pathologist | | | | | At | Signature | + +---------+ + + + | BLOOD | 119 (H) | 60 - 99 mg/dL | [facility] - | | | GLUCOSE, | | | [facility] | | | POC | | | [facility] | | | | | | OF CARE | | | | | | TESTS | | + +---------+ + + + + + | Specimen | + + | | + + + + + + + | Performing | Address | City/State/Zipcode | Phone Number | | Organization | | | | + + + + + | [facility] | [address] | [place], [place] | | | [facility] CARE | [address] | [address] | | | TESTS | | | | + + + + + CAPILLARY BLOOD GLUCOSE (NO CHG), POC (04/04/2015 12:25 PM PDT) + +---------+ + + + | Component | Value | Ref Range | Performed | Pathologist | | | | | At | Signature | + +---------+ + + + | BLOOD | 154 (H) | 60 - 99 mg/dL | [facility] - | | | GLUCOSE, | | | [facility] | | | POC | | | [facility] [place] | | | | | | OF CARE | | | | | | TESTS | | + +---------+ + + + + + | Specimen | + + | | + + + + + + + | Performing | Address | City/State/Zipcode | Phone Number | | Organization | | | | + + + + + | [facility] | [address] | [place], [place] | | | [facility] | [facility] | [address] | | | TESTS | | | | + + + + + CAPILLARY BLOOD GLUCOSE (NO CHG), POC (04/04/2015 6:11 AM PDT) + +---------+ + + + | Component | Value | Ref Range | Performed | Pathologist | | | | | At | Signature | + +---------+ + + + | BLOOD | 161 (H) | 60 - 99 mg/dL | [facility] - | | | GLUCOSE, | | | [facility] | | | POC | | | [place] [place] | | | | | | OF CARE | | | | | | TESTS | | + +---------+ + + + + + | Specimen | + + | | + + + + + + + | Performing | Address | City/State/Zipcode | Phone Number | | Organization | | | | + + + + + | [facility] | [address] | [place], [place] | | | [facility] CARE | [facility] | [address] | | | TESTS | | | | + + + + + CBC (HEMOGRAM) ONLY (04/04/2015 5:08 AM PDT) + + + + + + | Component | Value | Ref Range | Performed | Pathologist | | | | | At | Signature | + + + + + + | WHITE CELL | 14.01 (H) | 4.40 - 11.00 | [facility] | | | COUNT | | K/cu mm | LABORATORY | | | | | | SERVICES, | | | | | | CORE | | + + + + + + | RED CELL | 3.14 (L) | 4.50 - 6.00 | [facility] | | | COUNT | | M/cu mm | LABORATORY | | | | | | SERVICES, | | | | | | CORE | | + + + + + + | HEMOGLOBIN | 9.5 (L) | 13.5 - 17.5 | [facility] | | | | | g/dL | LABORATORY | | | | | | SERVICES, | | | | | | CORE | | + + + + + + | HEMATOCRIT | 29.8 (L) | 41.0 - 53.0 % | [facility] | | | | | | LABORATORY | | | | | | SERVICES, | | | | | | CORE | | + + + + + + | MCV | 94.9 | 80.0 - 96.0 fL | [facility] | | | | | | LABORATORY | | | | | | SERVICES, | | | | | | CORE | | + + + + + + | MCHC | 31.9 | 33.0 - 35.5 | [facility] | | | | | g/dL | LABORATORY | | | | | | SERVICES, | | | | | | CORE | | + + + + + + | RDW SD | 46.3 | 35.1 - 46.3 fL | [facility] | | | | | | LABORATORY | | | | | | SERVICES, | | | | | | CORE | | + + + + + + | PLATELET | 398 | 150 - 400 K/cu | [facility] [...] + + | Blood - Blood | + + + + + + + | Performing | Address | City/State/Zipcode | Phone Number | | Organization | | | | + + + + + | [facility] | [address] | [place] [address] | | | SERVICES, CORE | [address] | | | + + + + + MAGNESIUM, PLASMA (04/04/2015 5:08 AM PDT) + +-------+ + + + | Component | Value | Ref Range | Performed | Pathologist | | | | | At | Signature | + +-------+ + + + | MAGNESIUM,P | 2.0 | 1.8 - 2.5 mg/dL | [facility] | | | LASMA | | | LABORATORY | | | | | | SERVICES, | | | | | | CORE | | + +-------+ + + + + + | Specimen | + + | Blood - Blood | + + + + + + + | Performing | Address | City/State/Zipcode | Phone Number | | Organization | | | | + + + + + | [facility] | [address] | [place] [address] | | | SERVICES, CORE | [address] | | | + + + + + RENAL FUNCTION SET (NA,K,CL,CO2,BUN,CREAT,GLUC,CA,PHOS,ALB ) (04/04/2015 5:08 AM PDT) + +---------+ + + + | Component | Value | Ref Range | Performed | Pathologist | | | | | At | Signature | + +---------+ + + + | GLUCOSE, | 136 (H) | 60 - 99 mg/dL | [facility] | | | PLASMA | | | LABORATORY | | | (LAB) | | | SERVICES, | | | | | | CORE | | + +---------+ + + + | BUN, PLASMA | 19 | 6 - 20 mg/dL | [facility] | | | (LAB) | | | LABORATORY | | | | | | SERVICES, | | | | | | CORE | | + +---------+ + + + | CREATININE | 0.97 | 0.70 - 1.30 | [facility] | | | PLASMA | | mg/dL | LABORATORY | | | (LAB) | | | SERVICES, | | | | | | CORE | | + +---------+ + + + | EGFR | >60 | >60 mL/min | [facility] | | | - | | | LABORATORY | | | BELGIAN | | | SERVICES, | | | | | | CORE | | + +---------+ + + + | EGFR NON | >60 | >60 mL/min | [facility] | | | -MILAGRO | | | LABORATORY | | | RICAN | | | SERVICES, | | | | | | CORE | | + +---------+ + + + | SODIUM, | 141 | 136 - 145 | [facility] | | | PLASMA | | mmol/L | LABORATORY | | | (LAB) | | | SERVICES, | | | | | | CORE | | + +---------+ + + + | POTASSIUM, | 4.1 | 3.4 - 5.0 | [facility] | | | PLASMA | | mmol/L | LABORATORY | | | (LAB) | | | SERVICES, | | | | | | CORE | | + +---------+ + + + | CHLORIDE, | 106 | 97 - 108 mmol/L | [facility] | | | PLASMA | | | LABORATORY | | | (LAB) | | | SERVICES, | | | | | | CORE | | + +---------+ + + + | TOTAL CO2, | 30 | 21 - 32 mmol/L | [facility] | | | PLASMA | | | LABORATORY | | | (LAB) | | | SERVICES, | | | | | | CORE | | + +---------+ + + + | CALCIUM, | 9.3 | 8.6 - 10.2 | [facility] | | | PLASMA | | mg/dL | LABORATORY | | | (LAB) | | | SERVICES, | | | | | | CORE | | + +---------+ + + + | ALBUMIN, | 1.8 (L) | 3.5 - 4.7 g/dL | [facility] | | | PLASMA | | | LABORATORY | | | (LAB) | | | SERVICES, | | | | | | CORE | | + +---------+ + + + | PHOSPHORUS, | 1.9 (L) | 2.4 - 4.7 mg/dL | [facility] | | | PLASMA | | | LABORATORY | | | (LAB) | | | SERVICES, | | | | | | CORE | | + +---------+ + + + | POTASSIUM | No Hemo | | [facility] | | | CMNT | | | LABORATORY | | | | | | SERVICES, | | | | | | CORE | | + +---------+ + + + | ANION GAP | 5 | mmol/L | [facility] | | | | | | LABORATORY | | | | | | SERVICES, | | | | | | CORE | | + +---------+ + + + | ANION | 10 | 4 - 11 mmol/L | [facility] | | | GAP(ALB | | | LABORATORY | | | CORRECTED) | | | SERVICES, | | | | | | CORE | | + +---------+ + + + + + | Specimen | + + | Blood - Blood | + + + + + | Narrative | Performed At | + + + | GFR is estimated using the MDRD equation recommended by the | [facility] | | National Kidney Disease Education Program. Estimated GFR | LABORATORY | | Interpretive Information: <60 mL/min/1.73 sq m | SERVICES, CORE | | Chronic Kidney Disease <15 mL/min/1.73 sq m | | | Kidney Failure Estimated GFR greater that 60 mL/min/1.73 sq m is of | | | limited clinical value. The MDRD equation is not valid in the | | | following situations: - Patients under 18 years of age - Severe | | | malnutrition or obesity - Vegetarian diet - Rapidly changing kidney | | | function | | + + + + + + + + | Performing | Address | City/State/Zipcode | Phone Number | | Organization | | | | + + + + + | [facility] | [address] | [place] [address] | | | SERVICES, CORE | [address] | | | + + + + + X-RAY PORTABLE CHEST 1 VIEW (04/04/2015 3:24 AM PDT) + + + + + + | Component | Value | Ref Range | Performed | Pathologist | | | | | At | Signature | + + + + + + | X-RAY | EXAM: ND CHEST 1 VIEW | | | | | PORTABLE | 04/04/15 03:24:00 | | | | | CHEST 1 | HISTORY: Status post | | | | | VIEW | esophagectomy. | | | | | | COMPARISON: Yesterday | | | | | | FINDINGS: Support | | | | | | equipment is unchanged. | | | | | | Cardiomediastinal | | | | | | silhouette is | | | | | | stable.Bilateral lower | | | | | | lobe linear atelectasis | | | | | | is unchanged. There is | | | | | | no new | | | | | | focalconsolidation. | | | | | | Trace left pleural | | | | | | effusion persists. There | | | | | | is no pneumothoraxor | | | | | | pulmonary edema. | | | | | | IMPRESSION: Unchanged | | | | | | bilateral atelectasis | | | | | | with trace left pleural | | | | | | fluid as before. | | | | | | Attending Radiologists: | | | | | | LAVON OAKES MDAuthor: | | | | | | LAVON OAKES MD I | | | | | | have personally viewed | | | | | | this procedure/exam, | | | | | | reviewed this report, | | | | | | and madechanges to it | | | | | | where appropriate. | | | | | | Final/Electronically | | | | | | signed / LAVON | | | | | | CHAMP 04/04/2015 9:22 AM | | | | | | | | | | + + + + + + + + | Specimen | + + | | + + + +---------+ + + | Performing | Address | City/State/Zipcode | Phone Number | | Organization | | | | + +---------+ + + | [facility] DEPARTMENT OF | | | | | RADIOLOGY | | | | + +---------+ + + CARDIOLOGY (04/04/2015 12:00 AM PDT) + + + | Narrative | Performed At | + + + | | | + + + CAPILLARY BLOOD GLUCOSE (NO CHG), POC (04/03/2015 11:46 PM PDT) + +---------+ + + + | Component | Value | Ref Range | Performed | Pathologist | | | | | At | Signature | + +---------+ + + + | BLOOD | 118 (H) | 60 - 99 mg/dL | [facility] - | | | GLUCOSE, | | | [facility] | | | POC | | | [facility] | | | | | | OF CARE | | | | | | TESTS | | + +---------+ + + + + + | Specimen | + + | | + + + + + + + | Performing | Address | City/State/Zipcode | Phone Number | | Organization | | | | + + + + + | [facility] | [address] | [place], [place] | | | [facility] CARE | [address] | [address] | | | TESTS | | | | + + + + + CAPILLARY BLOOD GLUCOSE (NO CHG), POC (04/03/2015 6:13 PM PDT) + +---------+ + + + | Component | Value | Ref Range | Performed | Pathologist | | | | | At | Signature | + +---------+ + + + | BLOOD | 132 (H) | 60 - 99 mg/dL | [facility] - | | | GLUCOSE, | | | [facility] | | | POC | | | [facility] | | | | | | OF CARE | | | | | | TESTS | | + +---------+ + + + + + | Specimen | + + | | + + + + + + + | Performing | Address | City/State/Zipcode | Phone Number | | Organization | | | | + + + + + | [facility] | [address] | [place], [place] | | | [facility] OF CARE | [address] | [address] | | | TESTS | | | | + + + + + CAPILLARY BLOOD GLUCOSE (NO CHG), POC (04/03/2015 12:33 PM PDT) + +---------+ + + + | Component | Value | Ref Range | Performed | Pathologist | | | | | At | Signature | + +---------+ + + + | BLOOD | 150 (H) | 60 - 99 mg/dL | [facility] - | | | GLUCOSE, | | | [facility] | | | POC | | | [facility] | | | | | | OF CARE | | | | | | TESTS | | + +---------+ + + + + + | Specimen | + + | | + + + + + + + | Performing | Address | City/State/Zipcode | Phone Number | | Organization | | | | + + + + + | [facility] | [address] | [place], [place] | | | [facility] OF CARE | [address] | [address] | | | TESTS | | | | + + + + + X-RAY ESOPHAGRAM (04/03/2015 11:10 AM PDT) + + + + + + | Component | Value | Ref Range | Performed | Pathologist | | | | | At | Signature | + + + + + + | ESOPHAGUS | STUDY: Esophagram | | | | | | HISTORY: Evaluate for | | | | | | leak status post | | | | | | esophagectomy with | | | | | | gastric pull up | | | | | | COMPARISON: none | | | | | | FINDINGS: Initial | | | | | | frontal radiograph of | | | | | | the neck and mediastinum | | | | | | demonstrates aPenrose | | | | | | drain in the left | | | | | | supraclavicular region, | | | | | | multiple sternal wires | | | | | | andmediastinal surgical | | | | | | clips. Gastric | | | | | | pull-through is present. | | | | | | Retrocardiacopacity is | | | | | | likely represent | | | | | | atelectasis. Patient was | | | | | | able to | | | | | | swallowOmnipaque-300 | | | | | | contrast material in the | | | | | | standing position | | | | | | during | | | | | | directfluoroscopic | | | | | | visualization. Contrast | | | | | | passed freely into the | | | | | | gastricpull-through but | | | | | | there was almost | | | | | | immediate extravasation | | | | | | of a small amount | | | | | | ofcontrast anteriorly | | | | | | and to the left of the | | | | | | proximal anastomosis at | | | | | | theapproximate level of | | | | | | the clavicular heads. | | | | | | This was seen on | | | | | | multiple swallowswith | | | | | | contrast within a small, | | | | | | tract in the | | | | | | mediastinum between the | | | | | | level of theclavicular | | | | | | heads and most superior | | | | | | sternal wire slightly to | | | | | | the right of thePenrose | | | | | | drain.. IMPRESSION: 1. | | | | | | Confirmation of | | | | | | clinically suspected | | | | | | proximal anastomotic | | | | | | leak status | | | | | | postesophagectomy and | | | | | | gastric pull-through. as | | | | | | described. Findings | | | | | | and images were reviewed | | | | | | with the surgical team | | | | | | came for the patienton | | | | | | 04/03/15. Attending | | | | | | Radiologists: DAPHNEY | | | | | | SUMAN WANGuthor: DAPHNEY | | | | | | MD FELIPE I have | | | | | | personally viewed this | | | | | | procedure/exam, reviewed | | | | | | this report, and | | | | | | madechanges to it where | | | | | | appropriate. | | | | | | Final/Electronically | | | | | | echo / DAPHNEY | | | | | | FELIPE 04/03/2015 12:02 PM | | | | | | | | | | + + + + + + + + | Specimen | + + | | + + + +---------+ + + | Performing | Address | City/State/Zipcode | Phone Number | | Organization | | | | + +---------+ + + | [facility] DEPARTMENT OF | | | | | RADIOLOGY | | | | + +---------+ + + X-RAY PORTABLE CHEST 1 VIEW (04/03/2015 7:24 AM PDT) + + + + + + | Component | Value | Ref Range | Performed | Pathologist | | | | | At | Signature | + + + + + + | X-RAY | EXAM: ND CHEST 1 VIEW | | | | | PORTABLE | 04/03/15 07:24:00 | | | | | CHEST 1 | HISTORY: Status post | | | | | VIEW | esophagectomy. Status | | | | | | post I&D of left lower | | | | | | neck incision | | | | | | COMPARISON: Yesterday | | | | | | FINDINGS: 2 new left | | | | | | lower neck [place] | | | | | | drains are in place. The | | | | | | remaining | | | | | | supportequipment is | | | | | | unchanged.. Evidence of | | | | | | median sternotomy is | | | | | | noted as prior.Unchanged | | | | | | gastric conduit | | | | | | contour. Cardiac | | | | | | silhouette is unchanged. | | | | | | Slightincrease of a | | | | | | left lower lobe | | | | | | atelectasis. Scattered | | | | | | right lower | | | | | | lobeatelectasis is | | | | | | unchanged. Small | | | | | | left-sided pleural | | | | | | effusion appears | | | | | | unchanged.The left apex | | | | | | is not fully visualized | | | | | | but there is no apparent | | | | | | expansion thepreviously | | | | | | noted tiny left apical | | | | | | pneumothorax. No right | | | | | | pneumothorax. | | | | | | IMPRESSION: Mildly | | | | | | increased left lower | | | | | | lobe consolidation most | | | | | | consistent | | | | | | withatelectasis/retained | | | | | | secretions. Stable | | | | | | small left pleural | | | | | | effusion. Stableright | | | | | | lower lobe scattered | | | | | | atelectasis. Attending | | | | | | Radiologists: LAVON | | | | | | CHAMP, MDAuthor: KELBY | | | | | | MD RADHA I have | | | | | | personally viewed this | | | | | | procedure/exam, reviewed | | | | | | this report, and | | | | | | madechanges to it where | | | | | | appropriate. | | | | | | Final/Electronically | | | | | | signed / LAVON | | | | | | CHAMP 04/03/2015 10:36 AM | | | | | | | | | | + + + + + + + + | Specimen | + + | | + + + +---------+ + + | Performing | Address | City/State/Zipcode | Phone Number | | Organization | | | | + +---------+ + + | [facility] DEPARTMENT OF | | | | | RADIOLOGY | | | | + +---------+ + + CAPILLARY BLOOD GLUCOSE (NO CHG), POC (04/03/2015 6:07 AM PDT) + +---------+ + + + | Component | Value | Ref Range | Performed | Pathologist | | | | | At | Signature | + +---------+ + + + | BLOOD | 132 (H) | 60 - 99 mg/dL | [facility] - | | | GLUCOSE, | | | [facility] | | | POC | | | [facility] | | | | | | OF CARE | | | | | | TESTS | | + +---------+ + + + + + | Specimen | + + | | + + + + + + + | Performing | Address | City/State/Zipcode | Phone Number | | Organization | | | | + + + + + | [facility] | [address] | [place], [place] | | | [facility] | [address] | [address] | | | TESTS | | | | + + + + + CBC (HEMOGRAM) ONLY (04/03/2015 5:40 AM PDT) + + + + + + | Component | Value | Ref Range | Performed | Pathologist | | | | | At | Signature | + + + + + + | WHITE CELL | 15.71 (H) | 4.40 - 11.00 | [facility] | | | COUNT | | K/cu mm | LABORATORY | | | | | | SERVICES, | | | | | | CORE | | + + + + + + | RED CELL | 2.89 (L) | 4.50 - 6.00 | [facility] | | | COUNT | | M/cu mm | LABORATORY | | | | | | SERVICES, | | | | | | CORE | | + + + + + + | HEMOGLOBIN | 8.9 (L) | 13.5 - 17.5 | [facility] | | | | | g/dL | LABORATORY | | | | | | SERVICES, | | | | | | CORE | | + + + + + + | HEMATOCRIT | 27.5 (L) | 41.0 - 53.0 % | [facility] | | | | | | LABORATORY | | | | | | SERVICES, | | | | | | CORE | | + + + + + + | MCV | 95.2 | 80.0 - 96.0 fL | [facility] | | | | | | LABORATORY | | | | | | SERVICES, | | | | | | CORE | | + + + + + + | MCHC | 32.4 | 33.0 - 35.5 | [facility] | | | | | g/dL | LABORATORY | | | | | | SERVICES, | | | | | | CORE | | + + + + + + | RDW SD | 46.9 (H) | 35.1 - 46.3 fL | [facility] | | | | | | LABORATORY | | | | | | SERVICES, | | | | | | CORE | | + + + + + + | PLATELET | 317 | 150 - 400 K/cu | [facility] | | | COUNT | | mm | LABORATORY | | | | | | SERVICES, | | | | | | CORE | | + + + + + + | MPV | 10.4 | 9.7 - 12.3 fL | [facility] [...] + + | Blood - Blood | + + + + + + + | Performing | Address | City/State/Zipcode | Phone Number | | Organization | | | | + + + + + | [facility] | [address] | [place] [address] | | | SERVICES, CORE | [address] | | | + + + + + MAGNESIUM, PLASMA (04/03/2015 5:40 AM PDT) + +-------+ + + + | Component | Value | Ref Range | Performed | Pathologist | | | | | At | Signature | + +-------+ + + + | MAGNESIUM,P | 2.2 | 1.8 - 2.5 mg/dL | [facility] | | | LASMA | | | LABORATORY | | | | | | SERVICES, | | | | | | CORE | | + +-------+ + + + + + | Specimen | + + | Blood - Blood | + + + + + + + | Performing | Address | City/State/Zipcode | Phone Number | | Organization | | | | + + + + + | [facility] | [address] | [place] [address] | | | SERVICES, CORE | [address] | | | + + + + + RENAL FUNCTION SET (NA,K,CL,CO2,BUN,CREAT,GLUC,CA,PHOS,ALB ) (04/03/2015 5:40 AM PDT) + +---------+ + + + | Component | Value | Ref Range | Performed | Pathologist | | | | | At | Signature | + +---------+ + + + | GLUCOSE, | 118 (H) | 60 - 99 mg/dL | [facility] | | | PLASMA | | | LABORATORY | | | (LAB) | | | SERVICES, | | | | | | CORE | | + +---------+ + + + | BUN, PLASMA | 18 | 6 - 20 mg/dL | [facility] | | | (LAB) | | | LABORATORY | | | | | | SERVICES, | | | | | | CORE | | + +---------+ + + + | CREATININE | 1.01 | 0.70 - 1.30 | [facility] | | | PLASMA | | mg/dL | LABORATORY | | | (LAB) | | | SERVICES, | | | | | | CORE | | + +---------+ + + + | EGFR | >60 | >60 mL/min | [facility] | | | - | | | LABORATORY | | | [facility]GI[facility] | | | SERVICES, | | | | | | CORE | | + +---------+ + + + | EGFR NON | >60 | >60 mL/min | [facility] | | | -[facility] | | | LABORATORY | | | RICAN | | | SERVICES, | | | | | | CORE | | + +---------+ + + + | SODIUM, | 141 | 136 - 145 | [facility] | | | PLASMA | | mmol/L | LABORATORY | | | (LAB) | | | SERVICES, | | | | | | CORE | | + +---------+ + + + | POTASSIUM, | 4.0 | 3.4 - 5.0 | [facility] | | | PLASMA | | mmol/L | LABORATORY | | | (LAB) | | | SERVICES, | | | | | | CORE | | + +---------+ + + + | CHLORIDE, | 109 (H) | 97 - 108 mmol/L | [facility] | | | PLASMA | | | LABORATORY | | | (LAB) | | | SERVICES, | | | | | | CORE | | + +---------+ + + + | TOTAL CO2, | 27 | 21 - 32 mmol/L | [facility] | | | PLASMA | | | LABORATORY | | | (LAB) | | | SERVICES, | | | | | | CORE | | + +---------+ + + + | CALCIUM, | 8.5 (L) | 8.6 - 10.2 | [facility] | | | PLASMA | | mg/dL | LABORATORY | | | (LAB) | | | SERVICES, | | | | | | CORE | | + +---------+ + + + | ALBUMIN, | 1.7 (L) | 3.5 - 4.7 g/dL | [facility] | | | PLASMA | | | LABORATORY | | | (LAB) | | | SERVICES, | | | | | | CORE | | + +---------+ + + + | PHOSPHORUS, | 2.4 | 2.4 - 4.7 mg/dL | [facility] | | | PLASMA | | | LABORATORY | | | (LAB) | | | SERVICES, | | | | | | CORE | | + +---------+ + + + | POTASSIUM | No Hemo | | [facility] | | | CMNT | | | LABORATORY | | | | | | SERVICES, | | | | | | CORE | | + +---------+ + + + | ANION GAP | 5 | mmol/L | [facility] | | | | | | LABORATORY | | | | | | SERVICES, | | | | | | CORE | | + +---------+ + + + | ANION | 10 | 4 - 11 mmol/L | [facility] | | | GAP(ALB | | | LABORATORY | | | CORRECTED) | | | SERVICES, | | | | | | CORE | | + +---------+ + + + + + | Specimen | + + | Blood - Blood | + + + + + | Narrative | Performed At | + + + | GFR is estimated using the MDRD equation recommended by the | [facility] | | National Kidney Disease Education Program. Estimated GFR | LABORATORY | | Interpretive Information: <60 mL/min/1.73 sq m | SERVICES, CORE | | Chronic Kidney Disease <15 mL/min/1.73 sq m | | | Kidney Failure Estimated GFR greater that 60 mL/min/1.73 sq m is of | | | limited clinical value. The MDRD equation is not valid in the | | | following situations: - Patients under 18 years of age - Severe | | | malnutrition or obesity - Vegetarian diet - Rapidly changing kidney | | | function | | + + + + + + + + | Performing | Address | City/State/Zipcode | Phone Number | | Organization | | | | + + + + + | [facility] | [address] | [place] [address] | | | SERVICES, [place] | [address] | | | + + + + + CAPILLARY BLOOD GLUCOSE (NO CHG), POC (04/03/2015 12:07 AM PDT) + +---------+ + + + | Component | Value | Ref Range | Performed | Pathologist | | | | | At | Signature | + +---------+ + + + | BLOOD | 125 (H) | 60 - 99 mg/dL | [facility] | | | GLUCOSE, | | | [facility] | | | POC | | | [facility] | | | | | | OF CARE | | | | | | TESTS | | + +---------+ + + + + + | Specimen | + + | | + + + + + + + | Performing | Address | City/State/Zipcode | Phone Number | | Organization | | | | + + + + + | [facility] | [address] | [place], [place] | | | H[place], POINT OF CARE | [address] | [address] | | | TESTS | | | | + + + + + CARDIOLOGY (04/03/2015 12:00 AM PDT) + + + | Narrative | Performed At | + + + | | | + + + CAPILLARY BLOOD GLUCOSE (NO CHG), POC (04/02/2015 6:42 PM PDT) + +---------+ + + + | Component | Value | Ref Range | Performed | Pathologist | | | | | At | Signature | + +---------+ + + + | BLOOD | 116 (H) | 60 - 99 mg/dL | [facility] | | | GLUCOSE, | | | [facility] | | | POC | | | [facility] | | | | | | OF CARE | | | | | | TESTS | | + +---------+ + + + + + | Specimen | + + | | + + + + + + + | Performing | Address | City/State/Zipcode | Phone Number | | Organization | | | | + + + + + | [facility] | [address] | [place], [place] | | | [place] OF CARE | [address] | [address] | | | TESTS | | | | + + + + + CULTURE, TISSUE (04/02/2015 4:30 PM PDT) + + + + + + | Component | Value | Ref Range | Performed | Pathologist | | | | | At | Signature | + + + + + + | CULTURE | Citrobacter freundii | | [facility] | | | RESULT | complex (A) | | [facility] | | | | | | [place] | | + + + + + + | CULTURE | Streptococcus mitis | | [facility] | | | RESULT | group (A) | | [facility] - | | | | | | [place] | | + + + + + + | CULTURE | Streptococcus anginosus | | [facility] | | | RESULT | group (A) | | [facility] - | | | | | | [place] | | + + + + + + | CULTURE | Peptostreptococcus | | [facility] | | | RESULT | species (A) | | [facility] - | | | | | | [place] | | + + + + + + + + | Specimen | + + | Tissue - Neck | + + + + + | Narrative | Performed At | + + + | Culture Report: Rare Citrobacter freundii complex Rare | [facility] - | | Streptococcus mitis group 1+ Streptococcus anginosus group 2 colony | [facility] - | | types 3+ Peptostreptococcus species 2 colony types Please contact | [place] | | the microbiology laboratory if further work up of this culture is | | | needed. Gram Stain: No squamous epithelial cells Few | | | polymorphonuclear cells Many Gram positive cocci Moderate Gram | | | negative bacilli . | | + + + + + + + + | Organism | Antibiotic | Method | Susceptibility | + + + + + | Citrobacter freundii | Amoxicillin/Clavulan | SUSCEPTIBILITY-BERENICE | Resistant | | complex | ate | | | + + + + + | Citrobacter freundii | Ampicillin | SUSCEPTIBILITY-BERENICE | Resistant | | complex | | | | + + + + + | Citrobacter freundii | Cefazolin | SUSCEPTIBILITY-BERENICE | Resistant | | complex | | | | + + + + + | Citrobacter freundii | Ceftriaxone | SUSCEPTIBILITY-BERENICE | Sensitive | | complex | | | | + + + + + | Citrobacter freundii | Ciprofloxacin | SUSCEPTIBILITY-BERENICE | Sensitive | | complex | | | | + + + + + | Citrobacter freundii | Gentamicin | SUSCEPTIBILITY-BERENICE | Sensitive | | complex | | | | + + + + + | Citrobacter freundii | Piperacillin/Tazobac | SUSCEPTIBILITY-BERENICE | Sensitive | | complex | altamirano | | | + + + + + | Citrobacter freundii | Tobramycin | SUSCEPTIBILITY-BERENICE | Sensitive | | complex | | | | + + + + + | Citrobacter freundii | Trimethoprim/Sulfa | SUSCEPTIBILITY-BERENICE | Sensitive | | complex | | | | + + + + + + + + + + | Performing | Address | City/State/Zipcode | Phone Number | | Organization | | | | + + + + + | [facility] | [address] | [place] [address] | | | [place] | | | | + + + + + CAPILLARY BLOOD GLUCOSE (NO CHG), POC (04/02/2015 11:43 AM PDT) + +---------+ + + + | Component | Value | Ref Range | Performed | Pathologist | | | | | At | Signature | + +---------+ + + + | BLOOD | 110 (H) | 60 - 99 mg/dL | [facility] | | | GLUCOSE, | | | [facility] | | | POC | | | [facility] | | | | | | OF CARE | | | | | | TESTS | | + +---------+ + + + + + | Specimen | + + | | + + + + + + + | Performing | Address | City/State/Zipcode | Phone Number | | Organization | | | | + + + + + | [facility] | [address] | [place], [place] | | | YG POINT OF CARE | [address] | [address] | | | TESTS | | | | + + + + + ANTIBODY SCREEN (04/02/2015 9:15 AM PDT) + + + + + + | Component | Value | Ref Range | Performed | Pathologist | | | | | At | Signature | + + + + + + | Antibody | Negative | | [facility] | | | Screen | | | LABORATORY | | | | | | SERVICES, | | | | | | TRANSFUSION | | | | | | MEDICINE | | + + + + + + + + | Specimen | + + | Blood - Blood | + + + + + + + | Performing | Address | City/State/Zipcode | Phone Number | | Organization | | | | + + + + + | [facility] | [address] | [place] [address] | | | SERVICES, | [address] | | | | TRANSFUSION MEDICINE | | | | + + + + + ABO & RH TYPE (04/02/2015 9:15 AM PDT) + + + + + + | Component | Value | Ref Range | Performed | Pathologist | | | | | At | Signature | + + + + + + | ABO Group | O | | [facility] | | | | | | LABORATORY | | | | | | SERVICES, | | | | | | TRANSFUSION | | | | | | MEDICINE | | + + + + + + | Rh Type | Positive | | [facility] | | | | | | LABORATORY | | | | | | SERVICES, | | | | | | TRANSFUSION | | | | | | MEDICINE | | + + + + + + + + | Specimen | + + | Blood - Blood | + + + + + + + | Performing | Address | City/State/Zipcode | Phone Number | | Organization | | | | + + + + + | [facility] | [address] | [place] [address] | | | SERVICES, | [address] | | | | TRANSFUSION MEDICINE | | | | + + + + + X-RAY PORTABLE CHEST 1 VIEW (04/02/2015 6:28 AM PDT) + + + + + + | Component | Value | Ref Range | Performed | Pathologist | | | | | At | Signature | + + + + + + | X-RAY | EXAM: ND CHEST 1 VIEW | | | | | PORTABLE | 04/02/15 06:28:00 | | | | | CHEST 1 | HISTORY: Status post | | | | | VIEW | esophagectomy. | | | | | | COMPARISON: Yesterday | | | | | | FINDINGS: Evidence of | | | | | | median sternotomy noted | | | | | | as before. Unchanged | | | | | | gastric conduitcontour. | | | | | | Cardiac silhouette is | | | | | | unchanged. Mild | | | | | | improvement of the | | | | | | bilaterallower lobe | | | | | | atelectasis. Mildly | | | | | | increased left-sided | | | | | | pleural effusion. The | | | | | | lungsare otherwise | | | | | | clear. Tiny left apical | | | | | | pneumothorax is noted. | | | | | | IMPRESSION: Mildly | | | | | | improved scattered | | | | | | bilateral lower lobe | | | | | | atelectasis. Mild | | | | | | increased small | | | | | | left-sided pleural | | | | | | effusion. Tiny left | | | | | | apical pneumothorax. | | | | | | Attending Radiologists: | | | | | | LAVON OAKES, MDAuthor: | | | | | | KELBY GARCIA MD I | | | | | | have personally viewed | | | | | | this procedure/exam, | | | | | | reviewed this report, | | | | | | and madechanges to it | | | | | | where appropriate. | | | | | | Final/Electronically | | | | | | signed / LAVON | | | | | | CHAMP 04/02/2015 10:39 AM | | | | | | | [...] | | | + +---------+ + + CAPILLARY BLOOD GLUCOSE (NO CHG), POC (04/02/2015 6:01 AM PDT) + +---------+ + + + | Component | Value | Ref Range | Performed | Pathologist | | | | | At | Signature | + +---------+ + + + | BLOOD | 121 (H) | 60 - 99 mg/dL | [facility] - | | | GLUCOSE, | | | [facility] | | | POC | | | [facility] | | | | | | OF CARE | | | | | | TESTS | | + +---------+ + + + + + | Specimen | + + | | + + + + + + + | Performing | Address | City/State/Zipcode | Phone Number | | Organization | | | | + + + + + | [facility] | [address] | [place], [place] | | | [facility] [facility] | [address] | [address] | | | TESTS | | | | + + + + + CBC (HEMOGRAM) ONLY (04/02/2015 3:25 AM PDT) + + + + + + | Component | Value | Ref Range | Performed | Pathologist | | | | | At | Signature | + + + + + + | WHITE CELL | 17.30 (H) | 4.40 - 11.00 | [facility] | | | COUNT | | K/cu mm | LABORATORY | | | | | | SERVICES, | | | | | | CORE | | + + + + + + | RED CELL | 2.74 (L) | 4.50 - 6.00 | [facility] | | | COUNT | | M/cu mm | LABORATORY | | | | | | SERVICES, | | | | | | CORE | | + + + + + + | HEMOGLOBIN | 8.6 (L) | 13.5 - 17.5 | [facility] | | | | | g/dL | LABORATORY | | | | | | SERVICES, | | | | | | CORE | | + + + + + + | HEMATOCRIT | 25.5 (L) | 41.0 - 53.0 % | [facility] | | | | | | LABORATORY | | | | | | SERVICES, | | | | | | CORE | | + + + + + + | MCV | 93.1 | 80.0 - 96.0 fL | [facility] | | | | | | LABORATORY | | | | | | SERVICES, | | | | | | CORE | | + + + + + + | MCHC | 33.7 | 33.0 - 35.5 | [facility] | | | | | g/dL | LABORATORY | | | | | | SERVICES, | | | | | | CORE | | + + + + + + | RDW SD | 45.0 | 35.1 - 46.3 fL | [facility] | | | | | | LABORATORY | | | | | | SERVICES, | | | | | | CORE | | + + + + + + | PLATELET | 252 | 150 - 400 K/cu | [facility] | | | COUNT | | mm | LABORATORY | | | | | | SERVICES, | | | | | | CORE | | + + + + + + | MPV | 10.3 | 9.7 - 12.3 fL | [facility] [...] + + | Blood - Blood | + + + + + + + | Performing | Address | City/State/Zipcode | Phone Number | | Organization | | | | + + + + + | [facility] | [address] | [place] [address] | | | SERVICES, CORE | [address] | | | + + + + + MAGNESIUM, PLASMA (04/02/2015 3:25 AM PDT) + +-------+ + + + | Component | Value | Ref Range | Performed | Pathologist | | | | | At | Signature | + +-------+ + + + | MAGNESIUM,P | 1.9 | 1.8 - 2.5 mg/dL | [facility] | | | LASMA | | | LABORATORY | | | | | | [place], | | | | | | CORE | | + +-------+ + + + + + | Specimen | + + | Blood - Blood | + + + + + + + | Performing | Address | City/State/Zipcode | Phone Number | | Organization | | | | + + + + + | [facility] | [address] | [place] [address] | | | SERVICES, CORE | [address] | | | + + + + + RENAL FUNCTION SET (NA,K,CL,CO2,BUN,CREAT,GLUC,CA,PHOS,ALB ) (04/02/2015 3:25 AM PDT) + +---------+ + + + | Component | Value | Ref Range | Performed | Pathologist | | | | | At | Signature | + +---------+ + + + | GLUCOSE, | 126 (H) | 60 - 99 mg/dL | [facility] | | | PLASMA | | | LABORATORY | | | (LAB) | | | SERVICES, | | | | | | CORE | | + +---------+ + + + | BUN, PLASMA | 18 | 6 - 20 mg/dL | [facility] | | | (LAB) | | | LABORATORY | | | | | | SERVICES, | | | | | | CORE | | + +---------+ + + + | CREATININE | 0.94 | 0.70 - 1.30 | [facility] | | | PLASMA | | mg/dL | LABORATORY | | | (LAB) | | | SERVICES, | | | | | | CORE | | + +---------+ + + + | EGFR | >60 | >60 mL/min | [facility] | | | - | | | LABORATORY | | | [place] | | | SERVICES, | | | | | | CORE | | + +---------+ + + + | EGFR NON | >60 | >60 mL/min | [facility] | | | -[facility] | | | LABORATORY | | | RICAN | | | SERVICES, | | | | | | CORE | | + +---------+ + + + | SODIUM, | 143 | 136 - 145 | [facility] | | | PLASMA | | mmol/L | LABORATORY | | | (LAB) | | | SERVICES, | | | | | | CORE | | + +---------+ + + + | POTASSIUM, | 3.4 | 3.4 - 5.0 | [facility] | | | PLASMA | | mmol/L | LABORATORY | | | (LAB) | | | SERVICES, | | | | | | CORE | | + +---------+ + + + | CHLORIDE, | 110 (H) | 97 - 108 mmol/L | [facility] | | | PLASMA | | | LABORATORY | | | (LAB) | | | SERVICES, | | | | | | CORE | | + +---------+ + + + | TOTAL CO2, | 26 | 21 - 32 mmol/L | [facility] | | | PLASMA | | | LABORATORY | | | (LAB) | | | SERVICES, | | | | | | CORE | | + +---------+ + + + | CALCIUM, | 8.4 (L) | 8.6 - 10.2 | [facility] | | | PLASMA | | mg/dL | LABORATORY | | | (LAB) | | | SERVICES, | | | | | | CORE | | + +---------+ + + + | ALBUMIN, | 1.8 (L) | 3.5 - 4.7 g/dL | [facility] | | | PLASMA | | | LABORATORY | | | (LAB) | | | SERVICES, | | | | | | CORE | | + +---------+ + + + | PHOSPHORUS, | 2.1 (L) | 2.4 - 4.7 mg/dL | [facility] | | | PLASMA | | | LABORATORY | | | (LAB) | | | SERVICES, | | | | | | CORE | | + +---------+ + + + | POTASSIUM | No Hemo | | [facility] | | | CMNT | | | LABORATORY | | | | | | SERVICES, | | | | | | CORE | | + +---------+ + + + | ANION GAP | 7 | mmol/L | [facility] | | | | | | LABORATORY | | | | | | SERVICES, | | | | | | CORE | | + +---------+ + + + | ANION | 12 (H) | 4 - 11 mmol/L | [facility] | | | GAP(ALB | | | LABORATORY | | | CORRECTED) | | | SERVICES, | | | | | | CORE | | + +---------+ + + + + + | Specimen | + + | Blood - Blood | + + + + + | Narrative | Performed At | + + + | GFR is estimated using the MDRD equation recommended by the | [facility] | | National Kidney Disease Education Program. Estimated GFR | LABORATORY | | Interpretive Information: <60 mL/min/1.73 sq m | [place], [place] | | Chronic Kidney Disease <15 mL/min/1.73 sq m | | | Kidney Failure Estimated GFR greater that 60 mL/min/1.73 sq m is of | | | limited clinical value. The MDRD equation is not valid in the | | | following situations: - Patients under 18 years of age - Severe | | | malnutrition or obesity - Vegetarian diet - Rapidly changing kidney | | | function | | + + + + + + + + | Performing | Address | City/State/Zipcode | Phone Number | | Organization | | | | + + + + + | [facility] | [address] | [place] [address] | | | [facility] | [address] | | | + + + + + CAPILLARY BLOOD GLUCOSE (NO CHG), POC (04/02/2015 12:01 AM PDT) + +---------+ + + + | Component | Value | Ref Range | Performed | Pathologist | | | | | At | Signature | + +---------+ + + + | BLOOD | 131 (H) | 60 - 99 mg/dL | [facility] | | | GLUCOSE, | | | [facility] | | | POC | | | [place], POINT | | | | | | OF CARE | | | | | | TESTS | | + +---------+ + + + + + | Specimen | + + | | + + + + + + + | Performing | Address | City/State/Zipcode | Phone Number | | Organization | | | | + + + + + | [facility] | [address] | [place], [place] | | | [facility] [place] OF [facility] | [address] | [address] | | | TESTS | | | | + + + + + CARDIOLOGY (04/02/2015 12:00 AM PDT) + + + | Narrative | Performed At | + + + | | | + + + CAPILLARY BLOOD GLUCOSE (NO CHG), POC (04/01/2015 6:16 PM PDT) + +---------+ + + + | Component | Value | Ref Range | Performed | Pathologist | | | | | At | Signature | + +---------+ + + + | BLOOD | 138 (H) | 60 - 99 mg/dL | [facility] - | | | GLUCOSE, | | | [facility] | | | POC | | | [place], POINT | | | | | | OF CARE | | | | | | TESTS | | + +---------+ + + + + + | Specimen | + + | | + + + + + + + | Performing | Address | City/State/Zipcode | Phone Number | | Organization | | | | + + + + + | [facility] | [address] | [place], [place] | | | [facility] POINT OF [facility] | [facility] | [address] | | | TESTS | | | | + + + + + RENAL FUNCTION SET (NA,K,CL,CO2,BUN,CREAT,GLUC,CA,PHOS,ALB ) (04/01/2015 5:08 PM PDT) + +---------+ + + + | Component | Value | Ref Range | Performed | Pathologist | | | | | At | Signature | + +---------+ + + + | GLUCOSE, | 110 (H) | 60 - 99 mg/dL | [facility] | | | PLASMA | | | LABORATORY | | | (LAB) | | | SERVICES, | | | | | | CORE | | + +---------+ + + + | BUN, PLASMA | 20 | 6 - 20 mg/dL | [facility] | | | (LAB) | | | LABORATORY | | | | | | SERVICES, | | | | | | CORE | | + +---------+ + + + | CREATININE | 1.02 | 0.70 - 1.30 | [facility] | | | PLASMA | | mg/dL | LABORATORY | | | (LAB) | | | SERVICES, | | | | | | CORE | | + +---------+ + + + | EGFR | >60 | >60 mL/min | [facility] | | | - | | | LABORATORY | | | [place] | | | SERVICES, | | | | | | CORE | | + +---------+ + + + | EGFR NON | >60 | >60 mL/min | [facility] | | | -[facility] | | | LABORATORY | | | RICAN | | | SERVICES, | | | | | | CORE | | + +---------+ + + + | SODIUM, | 140 | 136 - 145 | [facility] | | | PLASMA | | mmol/L | LABORATORY | | | (LAB) | | | SERVICES, | | | | | | CORE | | + +---------+ + + + | POTASSIUM, | 3.7 | 3.4 - 5.0 | [facility] | | | PLASMA | | mmol/L | LABORATORY | | | (LAB) | | | SERVICES, | | | | | | CORE | | + +---------+ + + + | CHLORIDE, | 107 | 97 - 108 mmol/L | [facility] | | | PLASMA | | | LABORATORY | | | (LAB) | | | SERVICES, | | | | | | CORE | | + +---------+ + + + | TOTAL CO2, | 28 | 21 - 32 mmol/L | [facility] | | | PLASMA | | | LABORATORY | | | (LAB) | | | SERVICES, | | | | | | CORE | | + +---------+ + + + | CALCIUM, | 8.9 | 8.6 - 10.2 | [facility] | | | PLASMA | | mg/dL | LABORATORY | | | (LAB) | | | SERVICES, | | | | | | CORE | | + +---------+ + + + | ALBUMIN, | 2.0 (L) | 3.5 - 4.7 g/dL | [facility] | | | PLASMA | | | LABORATORY | | | (LAB) | | | SERVICES, | | | | | | CORE | | + +---------+ + + + | PHOSPHORUS, | 2.1 (L) | 2.4 - 4.7 mg/dL | [facility] | | | PLASMA | | | LABORATORY | | | (LAB) | | | SERVICES, | | | | | | CORE | | + +---------+ + + + | POTASSIUM | No Hemo | | [facility] | | | CMNT | | | LABORATORY | | | | | | SERVICES, | | | | | | CORE | | + +---------+ + + + | ANION GAP | 5 | mmol/L | [facility] | | | | | | LABORATORY | | | | | | SERVICES, | | | | | | CORE | | + +---------+ + + + | ANION | 10 | 4 - 11 mmol/L | [facility] | | | GAP(ALB | | | LABORATORY | | | CORRECTED) | | | SERVICES, | | | | | | CORE | | + +---------+ + + + + + | Specimen | + + | Blood - Blood | + + + + + | Narrative | Performed At | + + + | After electrolyte replacements have infused. GFR is estimated using | [facility] | | the MDRD equation recommended by the National Kidney Disease | LABORATORY | | Education Program. Estimated GFR Interpretive Information: <60 | SERVICES, CORE | | mL/min/1.73 sq m Chronic Kidney Disease <15 | | | mL/min/1.73 sq m Kidney Failure Estimated GFR | | | greater that 60 mL/min/1.73 sq m is of limited clinical value. The | | | MDRD equation is not valid in the following situations: - Patients | | | under 18 years of age - Severe malnutrition or obesity - Vegetarian | | | diet - Rapidly changing kidney function | | + + + + + + + + | Performing | Address | City/State/Zipcode | Phone Number | | Organization | | | | + + + + + | [facility] | [address] | [place] [address] | | | SERVICES, CORE | [address] | | | + + + + + X-RAY PORTABLE CHEST 1 VIEW (04/01/2015 1:37 PM PDT) + + + + + + | Component | Value | Ref Range | Performed | Pathologist | | | | | At | Signature | + + + + + + | X-RAY | EXAM: ND CHEST 1 VIEW | | | | | PORTABLE | 04/01/15 13:37:00 | | | | | CHEST 1 | HISTORY: Resent | | | | | VIEW | esophagostomy, status | | | | | | post chest tube removal | | | | | | COMPARISON: Earlier | | | | | | today FINDINGS: A | | | | | | left-sided chest tube | | | | | | has been removed. | | | | | | Evidence of median | | | | | | sternotomy isnoted. The | | | | | | cardiac silhouette is | | | | | | normal. Mediastinal | | | | | | silhouette is | | | | | | unchanged.Scattered | | | | | | bilateral lower lobe | | | | | | atelectasis is | | | | | | unchanged. Small left | | | | | | pleuraleffusion is | | | | | | unchanged. No | | | | | | pneumothorax. No new | | | | | | focal consolidation. | | | | | | IMPRESSION: Status post | | | | | | left-sided chest tube | | | | | | removal no pneumothorax, | | | | | | persistent smallleft | | | | | | pleural effusion. Stable | | | | | | scattered bilateral | | | | | | lower lobe atelectasis. | | | | | | Attending Radiologists: | | | | | | TOMA GONGORA, | | | | | | MDAuthor: KELBY GARCIA, | | | | | | I have personally | | | | | | viewed this | | | | | | procedure/exam, reviewed | | | | | | this report, and | | | | | | madechanges to it where | | | | | | appropriate. | | | | | | Final/Electronically | | | | | | echo / TOMA Ramirez | | | | | | ROLAN 04/01/2015 | | | | | | 14:48 PM | | | | + + [...] | | | + +---------+ + + CAPILLARY BLOOD GLUCOSE (NO CHG), POC (04/01/2015 12:13 PM PDT) + +---------+ + + + | Component | Value | Ref Range | Performed | Pathologist | | | | | At | Signature | + +---------+ + + + | BLOOD | 129 (H) | 60 - 99 mg/dL | [facility] - | | | GLUCOSE, | | | [facility] | | | POC | | | [facility] | | | | | | OF CARE | | | | | | TESTS | | + +---------+ + + + + + | Specimen | + + | | + + + + + + + | Performing | Address | City/State/Zipcode | Phone Number | | Organization | | | | + + + + + | [facility] | [address] | [place], [place] | | | [facility] | [address] | [phone] | | | TESTS | | | | + + + + + X-RAY PORTABLE CHEST 1 VIEW (04/01/2015 6:54 AM PDT) + + + + + + | Component | Value | Ref Range | Performed | Pathologist | | | | | At | Signature | + + + + + + | X-RAY | EXAM: ND CHEST 1 VIEW | | | | | PORTABLE | 04/01/15 06:54:00 | | | | | CHEST 1 | HISTORY: Status post | | | | | VIEW | esophagectomy | | | | | | COMPARISON: Yesterday | | | | | | FINDINGS: Support | | | | | | equipment is unchanged. | | | | | | Evidence of median | | | | | | sternotomy is noted. | | | | | | Thecardiac silhouette is | | | | | | normal. The mediastinal | | | | | | silhouette is | | | | | | unchanged.Bilateral | | | | | | lower lobe atelectasis | | | | | | appears slightly | | | | | | improved. Persistent | | | | | | smallleft pleural | | | | | | effusion. No | | | | | | pneumothorax. | | | | | | IMPRESSION: Improving | | | | | | scattered bilateral | | | | | | lower lobe atelectasis. | | | | | | Attending Radiologists: | | | | | | TOMA GONGORA, | | | | | | MDAuthor: KELBY GARCIA, | | | | | | I have personally | | | | | | viewed this | | | | | | procedure/exam, reviewed | | | | | | this report, and | | | | | | madechanges to it where | | | | | | appropriate. | | | | | | Final/Electronically | | | | | | echo / TOMA Ramirez | | | | | | ROLAN 04/01/2015 | | | | | | 14:48 PM | | | | + + [...] | | | + +---------+ + + CAPILLARY BLOOD GLUCOSE (NO CHG), POC (04/01/2015 5:55 AM PDT) + +---------+ + + + | Component | Value | Ref Range | Performed | Pathologist | | | | | At | Signature | + +---------+ + + + | BLOOD | 126 (H) | 60 - 99 mg/dL | [facility] | | | GLUCOSE, | | | [facility] | | | POC | | | [facility] | | | | | | OF CARE | | | | | | TESTS | | + +---------+ + + + + + | Specimen | + + | | + + + + + + + | Performing | Address | City/State/Zipcode | Phone Number | | Organization | | | | + + + + + | [facility] | [address] | [place], [place] | | | [facility] | [facility] | [address] | | | TESTS | | | | + + + + + CBC (HEMOGRAM) ONLY (04/01/2015 5:47 AM PDT) + + + + + + | Component | Value | Ref Range | Performed | Pathologist | | | | | At | Signature | + + + + + + | WHITE CELL | 15.71 (H) | 4.40 - 11.00 | [facility] | | | COUNT | | K/cu mm | LABORATORY | | | | | | SERVICES, | | | | | | CORE | | + + + + + + | RED CELL | 3.05 (L) | 4.50 - 6.00 | [facility] | | | COUNT | | M/cu mm | LABORATORY | | | | | | SERVICES, | | | | | | CORE | | + + + + + + | HEMOGLOBIN | 9.4 (L) | 13.5 - 17.5 | [facility] | | | | | g/dL | LABORATORY | | | | | | SERVICES, | | | | | | CORE | | + + + + + + | HEMATOCRIT | 29.0 (L) | 41.0 - 53.0 % | [facility] | | | | | | LABORATORY | | | | | | SERVICES, | | | | | | CORE | | + + + + + + | MCV | 95.1 | 80.0 - 96.0 fL | [facility] | | | | | | LABORATORY | | | | | | SERVICES, | | | | | | CORE | | + + + + + + | MCHC | 32.4 | 33.0 - 35.5 | [facility] | | | | | g/dL | LABORATORY | | | | | | SERVICES, | | | | | | CORE | | + + + + + + | RDW SD | 45.3 | 35.1 - 46.3 fL | [facility] | | | | | | LABORATORY | | | | | | SERVICES, | | | | | | CORE | | + + + + + + | PLATELET | 243 | 150 - 400 K/cu | [facility] | | | COUNT | | mm | LABORATORY | | | | | | SERVICES, | | | | | | CORE | | + + + + + + | MPV | 11.2 | 9.7 - 12.3 fL | [facility] [...] | 0.00 | 0.00 - 0.02 | [facility] | | | | | K/cu mm | LABORATORY | | | | | | [place], | | | | | | CORE | | + + + + + + + + | Specimen | + + | Blood - Blood | + + + + + + + | Performing | Address | City/State/Zipcode | Phone Number | | Organization | | | | + + + + + | [facility] | [address] | [place] [address] | | | [place] [facility] | [address] | | | + + + + + MAGNESIUM, PLASMA (04/01/2015 5:47 AM PDT) + +-------+ + + + | Component | Value | Ref Range | Performed | Pathologist | | | | | At | Signature | + +-------+ + + + | MAGNESIUM,P | 2.2 | 1.8 - 2.5 mg/dL | [facility] | | | LASMA | | | LABORATORY | | | | | | SERVICES, | | | | | | CORE | | + +-------+ + + + + + | Specimen | + + | Blood - Blood | + + + + + + + | Performing | Address | City/State/Zipcode | Phone Number | | Organization | | | | + + + + + | [facility] | [address] | [place] [address] | | | SERVICES, CORE | [address] | | | + + + + + RENAL FUNCTION SET (NA,K,CL,CO2,BUN,CREAT,GLUC,CA,PHOS,ALB ) (04/01/2015 5:47 AM PDT) + +---------+ + + + | Component | Value | Ref Range | Performed | Pathologist | | | | | At | Signature | + +---------+ + + + | GLUCOSE, | 102 (H) | 60 - 99 mg/dL | [facility] | | | PLASMA | | | LABORATORY | | | (LAB) | | | SERVICES, | | | | | | CORE | | + +---------+ + + + | BUN, PLASMA | 23 (H) | 6 - 20 mg/dL | [facility] | | | (LAB) | | | LABORATORY | | | | | | SERVICES, | | | | | | CORE | | + +---------+ + + + | CREATININE | 0.96 | 0.70 - 1.30 | [facility] | | | PLASMA | | mg/dL | LABORATORY | | | (LAB) | | | SERVICES, | | | | | | CORE | | + +---------+ + + + | EGFR | >60 | >60 mL/min | [facility] | | | - | | | LABORATORY | | | [place] | | | SERVICES, | | | | | | CORE | | + +---------+ + + + | EGFR NON | >60 | >60 mL/min | [facility] | | | -[facility] | | | LABORATORY | | | [facility] | | | SERVICES, | | | | | | CORE | | + +---------+ + + + | SODIUM, | 142 | 136 - 145 | [facility] | | | PLASMA | | mmol/L | LABORATORY | | | (LAB) | | | SERVICES, | | | | | | CORE | | + +---------+ + + + | POTASSIUM, | 3.8 | 3.4 - 5.0 | [facility] | | | PLASMA | | mmol/L | LABORATORY | | | (LAB) | | | SERVICES, | | | | | | CORE | | + +---------+ + + + | CHLORIDE, | 108 | 97 - 108 mmol/L | [facility] | | | PLASMA | | | LABORATORY | | | (LAB) | | | SERVICES, | | | | | | CORE | | + +---------+ + + + | TOTAL CO2, | 29 | 21 - 32 mmol/L | [facility] | | | PLASMA | | | LABORATORY | | | (LAB) | | | SERVICES, | | | | | | CORE | | + +---------+ + + + | CALCIUM, | 9.1 | 8.6 - 10.2 | [facility] | | | PLASMA | | mg/dL | LABORATORY | | | (LAB) | | | SERVICES, | | | | | | CORE | | + +---------+ + + + | ALBUMIN, | 2.1 (L) | 3.5 - 4.7 g/dL | [facility] | | | PLASMA | | | LABORATORY | | | (LAB) | | | SERVICES, | | | | | | CORE | | + +---------+ + + + | PHOSPHORUS, | 1.7 (L) | 2.4 - 4.7 mg/dL | [facility] | | | PLASMA | | | LABORATORY | | | (LAB) | | | SERVICES, | | | | | | CORE | | + +---------+ + + + | POTASSIUM | No Hemo | | [facility] | | | CMNT | | | LABORATORY | | | | | | SERVICES, | | | | | | CORE | | + +---------+ + + + | ANION GAP | 5 | mmol/L | [facility] | | | | | | LABORATORY | | | | | | SERVICES, | | | | | | CORE | | + +---------+ + + + | ANION | 9 | 4 - 11 mmol/L | [facility] | | | GAP(ALB | | | LABORATORY | | | CORRECTED) | | | SERVICES, | | | | | | CORE | | + +---------+ + + + + + | Specimen | + + | Blood - Blood | + + + + + | Narrative | Performed At | + + + | GFR is estimated using the MDRD equation recommended by the | [facility] | | National Kidney Disease Education Program. Estimated GFR | LABORATORY | | Interpretive Information: <60 mL/min/1.73 sq m | SERVICES, CORE | | Chronic Kidney Disease <15 mL/min/1.73 sq m | | | Kidney Failure Estimated GFR greater that 60 mL/min/1.73 sq m is of | | | limited clinical value. The MDRD equation is not valid in the | | | following situations: - Patients under 18 years of age - Severe | | | malnutrition or obesity - Vegetarian diet - Rapidly changing kidney | | | function | | + + + + + + + + | Performing | Address | City/State/Zipcode | Phone Number | | Organization | | | | + + + + + | [facility] | [address] | [place] [address] | | | SERVICES, CORE | [address] | | | + + + + + CAPILLARY BLOOD GLUCOSE (NO CHG), POC (04/01/2015 12:19 AM PDT) + +---------+ + + + | Component | Value | Ref Range | Performed | Pathologist | | | | | At | Signature | + +---------+ + + + | BLOOD | 116 (H) | 60 - 99 mg/dL | [facility] | | | GLUCOSE, | | | [facility] | | | POC | | | [facility] | | | | | | OF CARE | | | | | | TESTS | | + +---------+ + + + + + | Specimen | + + | | + + + + + + + | Performing | Address | City/State/Zipcode | Phone Number | | Organization | | | | + + + + + | [facility] | [address] | [place], [place] | | | [facility] | [address] | [address] | | | TESTS | | | | + + + + + CARDIOLOGY (04/01/2015 12:00 AM PDT) + + + | Narrative | Performed At | + + + | | | + + + CAPILLARY BLOOD GLUCOSE (NO CHG), POC (03/31/2015 6:08 PM PDT) + +---------+ + + + | Component | Value | Ref Range | Performed | Pathologist | | | | | At | Signature | + +---------+ + + + | BLOOD | 103 (H) | 60 - 99 mg/dL | [facility] | | | GLUCOSE, | | | [facility] | | | POC | | | [facility] | | | | | | OF CARE | | | | | | TESTS | | + +---------+ + + + + + | Specimen | + + | | + + + + + + + | Performing | Address | City/State/Zipcode | Phone Number | | Organization | | | | + + + + + | [facility] | [address] | [place], [place] | | | [facility] | [address] | [address] | | | TESTS | | | | + + + + + CAPILLARY BLOOD GLUCOSE (NO CHG), POC (03/31/2015 12:01 PM PDT) + +-------+ + + + | Component | Value | Ref Range | Performed | Pathologist | | | | | At | Signature | + +-------+ + + + | BLOOD | 96 | 60 - 99 mg/dL | [facility] - | | | GLUCOSE, | | | [facility] | | | POC | | | [facility] | | | | | | OF CARE | | | | | | TESTS | | + +-------+ + + + + + | Specimen | + + | | + + + + + + + | Performing | Address | City/State/Zipcode | Phone Number | | Organization | | | | + + + + + | [facility] | [address] | [place], [place] | | | [facility] | [facility] | [address] | | | TESTS | | | | + + + + + CAPILLARY BLOOD GLUCOSE (NO CHG), POC (03/31/2015 7:45 AM PDT) + +-------+ + + + | Component | Value | Ref Range | Performed | Pathologist | | | | | At | Signature | + +-------+ + + + | BLOOD | 79 | 60 - 99 mg/dL | [facility] - | | | GLUCOSE, | | | [facility] | | | POC | | | [facility] | | | | | | OF CARE | | | | | | TESTS | | + +-------+ + + + + + | Specimen | + + | | + + + + + + + | Performing | Address | City/State/Zipcode | Phone Number | | Organization | | | | + + + + + | [facility] | [address] | [place], [place] | | | [facility] | [address] | [address] | | | TESTS | | | | + + + + + X-RAY PORTABLE CHEST 1 VIEW (03/31/2015 5:38 AM PDT) + + + + + + | Component | Value | Ref Range | Performed | Pathologist | | | | | At | Signature | + + + + + + | X-RAY | EXAM: ND CHEST 1 VIEW | | | | | PORTABLE | 03/31/15 05:38:00 | | | | | CHEST 1 | HISTORY: Status post | | | | | VIEW | esophagectomy | | | | | | COMPARISON: 03/30/15 | | | | | | FINDINGS: Enteric tube | | | | | | has been removed. The | | | | | | remaining support | | | | | | equipment is | | | | | | unchanged.Gastric | | | | | | conduit distention is | | | | | | unchanged. Bilateral | | | | | | lower lobe | | | | | | scatteredatelectasis | | | | | | persists. There is trace | | | | | | left pleural fluid as | | | | | | before. There is | | | | | | nopneumothorax. | | | | | | IMPRESSION: Unchanged | | | | | | gastric conduit | | | | | | contouring. Scattered | | | | | | bilateral lower lobe | | | | | | atelectasis as before. | | | | | | Attending Radiologists: | | | | | | LAVON OAKES MDAuthor: | | | | | | LAVON OAKES MD I | | | | | | have personally viewed | | | | | | this procedure/exam, | | | | | | reviewed this report, | | | | | | and madechanges to it | | | | | | where appropriate. | | | | | | Final/Electronically | | | | | | signed / LAVON | | | | | | FUSS 03/31/2015 11:13 AM | | | | | | | [...] | | + +---------+ + + CBC (HEMOGRAM) ONLY (03/31/2015 5:19 AM PDT) + + + + + + | Component | Value | Ref Range | Performed | Pathologist | | | | | At | Signature | + + + + + + | WHITE CELL | 16.78 (H) | 4.40 - 11.00 | [facility] | | | COUNT | | K/cu mm | LABORATORY | | | | | | SERVICES, | | | | | | CORE | | + + + + + + | RED CELL | 2.80 (L) | 4.50 - 6.00 | [facility] | | | COUNT | | M/cu mm | LABORATORY | | | | | | SERVICES, | | | | | | CORE | | + + + + + + | HEMOGLOBIN | 8.7 (L) | 13.5 - 17.5 | [facility] | | | | | g/dL | LABORATORY | | | | | | SERVICES, | | | | | | CORE | | + + + + + + | HEMATOCRIT | 26.5 (L) | 41.0 - 53.0 % | [facility] | | | | | | LABORATORY | | | | | | SERVICES, | | | | | | CORE | | + + + + + + | MCV | 94.6 | 80.0 - 96.0 fL | [facility] | | | | | | LABORATORY | | | | | | SERVICES, | | | | | | CORE | | + + + + + + | MCHC | 32.8 | 33.0 - 35.5 | [facility] | | | | | g/dL | LABORATORY | | | | | | SERVICES, | | | | | | CORE | | + + + + + + | RDW SD | 45.4 | 35.1 - 46.3 fL | [facility] | | | | | | LABORATORY | | | | | | SERVICES, | | | | | | CORE | | + + + + + + | PLATELET | 198 | 150 - 400 K/cu | [facility] | | | COUNT | | mm | LABORATORY | | | | | | SERVICES, | | | | | | CORE | | + + + + + + | MPV | 11.4 | 9.7 - 12.3 fL | [facility] [...] + + | Blood - Blood | + + + + + + + | Performing | Address | City/State/Zipcode | Phone Number | | Organization | | | | + + + + + | [facility] | [address] | [place] [address] | | | SERVICES, CORE | [address] | | | + + + + + MAGNESIUM, PLASMA (03/31/2015 5:19 AM PDT) + +-------+ + + + | Component | Value | Ref Range | Performed | Pathologist | | | | | At | Signature | + +-------+ + + + | MAGNESIUM,P | 1.9 | 1.8 - 2.5 mg/dL | [facility] | | | LASMA | | | LABORATORY | | | | | | [place], | | | | | | CORE | | + +-------+ + + + + + | Specimen | + + | Blood - Blood | + + + + + + + | Performing | Address | City/State/Zipcode | Phone Number | | Organization | | | | + + + + + | [facility] | [address] | [place] [address] | | | SERVICES, CORE | [address] | | | + + + + + RENAL FUNCTION SET (NA,K,CL,CO2,BUN,CREAT,GLUC,CA,PHOS,ALB ) (03/31/2015 5:19 AM PDT) + +---------+ + + + | Component | Value | Ref Range | Performed | Pathologist | | | | | At | Signature | + +---------+ + + + | GLUCOSE, | 78 | 60 - 99 mg/dL | [facility] | | | PLASMA | | | LABORATORY | | | (LAB) | | | SERVICES, | | | | | | CORE | | + +---------+ + + + | BUN, PLASMA | 23 (H) | 6 - 20 mg/dL | [facility] | | | (LAB) | | | LABORATORY | | | | | | SERVICES, | | | | | | CORE | | + +---------+ + + + | CREATININE | 0.98 | 0.70 - 1.30 | [facility] | | | PLASMA | | mg/dL | LABORATORY | | | (LAB) | | | SERVICES, | | | | | | CORE | | + +---------+ + + + | EGFR | >60 | >60 mL/min | [facility] | | | - | | | LABORATORY | | | [facility] | | | SERVICES, | | | | | | CORE | | + +---------+ + + + | EGFR NON | >60 | >60 mL/min | [facility] | | | -[facility] | | | LABORATORY | | | RICAN | | | SERVICES, | | | | | | CORE | | + +---------+ + + + | SODIUM, | 141 | 136 - 145 | [facility] | | | PLASMA | | mmol/L | LABORATORY | | | (LAB) | | | SERVICES, | | | | | | CORE | | + +---------+ + + + | POTASSIUM, | 3.3 (L) | 3.4 - 5.0 | [facility] | | | PLASMA | | mmol/L | LABORATORY | | | (LAB) | | | SERVICES, | | | | | | CORE | | + +---------+ + + + | CHLORIDE, | 106 | 97 - 108 mmol/L | [facility] | | | PLASMA | | | LABORATORY | | | (LAB) | | | SERVICES, | | | | | | CORE | | + +---------+ + + + | TOTAL CO2, | 27 | 21 - 32 mmol/L | [facility] | | | PLASMA | | | LABORATORY | | | (LAB) | | | SERVICES, | | | | | | CORE | | + +---------+ + + + | CALCIUM, | 8.6 | 8.6 - 10.2 | [facility] | | | PLASMA | | mg/dL | LABORATORY | | | (LAB) | | | SERVICES, | | | | | | CORE | | + +---------+ + + + | ALBUMIN, | 2.1 (L) | 3.5 - 4.7 g/dL | [facility] | | | PLASMA | | | LABORATORY | | | (LAB) | | | SERVICES, | | | | | | CORE | | + +---------+ + + + | PHOSPHORUS, | 1.6 (L) | 2.4 - 4.7 mg/dL | [facility] | | | PLASMA | | | LABORATORY | | | (LAB) | | | SERVICES, | | | | | | CORE | | + +---------+ + + + | POTASSIUM | No Hemo | | [facility] | | | CMNT | | | LABORATORY | | | | | | SERVICES, | | | | | | CORE | | + +---------+ + + + | ANION GAP | 8 | mmol/L | [facility] | | | | | | LABORATORY | | | | | | SERVICES, | | | | | | CORE | | + +---------+ + + + | ANION | 12 (H) | 4 - 11 mmol/L | [facility] | | | GAP(ALB | | | LABORATORY | | | CORRECTED) | | | SERVICES, | | | | | | CORE | | + +---------+ + + + + + | Specimen | + + | Blood - Blood | + + + + + | Narrative | Performed At | + + + | GFR is estimated using the MDRD equation recommended by the | [facility] | | National Kidney Disease Education Program. Estimated GFR | LABORATORY | | Interpretive Information: <60 mL/min/1.73 sq m | [facility] [place] | | Chronic Kidney Disease <15 mL/min/1.73 sq m | | | Kidney Failure Estimated GFR greater that 60 mL/min/1.73 sq m is of | | | limited clinical value. The MDRD equation is not valid in the | | | following situations: - Patients under 18 years of age - Severe | | | malnutrition or obesity - Vegetarian diet - Rapidly changing kidney | | | function | | + + + + + + + + | Performing | Address | City/State/Zipcode | Phone Number | | Organization | | | | + + + + + | [facility] | [address] | [place] [address] | | | [place] [facility] | [address] | | | + + + + + CAPILLARY BLOOD GLUCOSE (NO CHG), POC (03/31/2015 12:05 AM PDT) + +-------+ + + + | Component | Value | Ref Range | Performed | Pathologist | | | | | At | Signature | + +-------+ + + + | BLOOD | 92 | 60 - 99 mg/dL | [facility] - | | | GLUCOSE, | | | [facility] | | | POC | | | [facility] | | | | | | OF CARE | | | | | | TESTS | | + +-------+ + + + + + | Specimen | + + | | + + + + + + + | Performing | Address | City/State/Zipcode | Phone Number | | Organization | | | | + + + + + | [facility] | [address] | [place], [place] | | | [facility] | [address] | [address] | | | TESTS | | | | + + + + + CARDIOLOGY (03/31/2015 12:00 AM PDT) + + + | Narrative | Performed At | + + + | | | + + + CAPILLARY BLOOD GLUCOSE (NO CHG), POC (03/30/2015 6:19 PM PDT) + +-------+ + + + | Component | Value | Ref Range | Performed | Pathologist | | | | | At | Signature | + +-------+ + + + | BLOOD | 93 | 60 - 99 mg/dL | [facility] - | | | GLUCOSE, | | | [facility] | | | POC | | | [facility] | | | | | | OF CARE | | | | | | TESTS | | + +-------+ + + + + + | Specimen | + + | | + + + + + + + | Performing | Address | City/State/Zipcode | Phone Number | | Organization | | | | + + + + + | [facility] | [address] | [place], [place] | | | [facility] | [address] | [address] | | | TESTS | | | | + + + + + X-RAY PORTABLE CHEST 1 VIEW (03/30/2015 5:54 AM PDT) + + + + + + | Component | Value | Ref Range | Performed | Pathologist | | | | | At | Signature | + + + + + + | X-RAY | STUDY: ND CHEST 1 VIEW | | | | | PORTABLE | 03/30/15 05:54:00 | | | | | CHEST 1 | HISTORY: Status post | | | | | VIEW | esophagectomy | | | | | | COMPARISON: 1 day ago | | | | | | FINDINGS: | | | | | | Cardiomediastinal | | | | | | silhouette unchanged. | | | | | | Bilateral | | | | | | basilarsubsegmental | | | | | | atelectasis unchanged. | | | | | | Support devices | | | | | | unchanged. Small amount | | | | | | ofbilateral pleural | | | | | | fluid unchanged. | | | | | | CONCLUSION: Stable | | | | | | appearance of the chest. | | | | | | Attending Radiologists: | | | | | | TIM HAYS, | | | | | | MDAuthor: TIM | | | | | | HAYS, MD I have | | | | | | personally viewed this | | | | | | procedure/exam, reviewed | | | | | | this report, and | | | | | | madechanges to it where | | | | | | appropriate. | | | | | | Final/Electronically | | | | | | echo / TIM | | | | | | SAÚL 03/30/2015 10:00 | | | | | | AM | | | | + + [...] | | + +---------+ + + CBC (HEMOGRAM) ONLY (03/30/2015 4:42 AM PDT) + + + + + + | Component | Value | Ref Range | Performed | Pathologist | | | | | At | Signature | + + + + + + | WHITE CELL | 21.51 (H) | 4.40 - 11.00 | [facility] | | | COUNT | | K/cu mm | LABORATORY | | | | | | SERVICES, | | | | | | CORE | | + + + + + + | RED CELL | 3.01 (L) | 4.50 - 6.00 | [facility] | | | COUNT | | M/cu mm | LABORATORY | | | | | | SERVICES, | | | | | | CORE | | + + + + + + | HEMOGLOBIN | 9.5 (L) | 13.5 - 17.5 | [facility] | | | | | g/dL | LABORATORY | | | | | | SERVICES, | | | | | | CORE | | + + + + + + | HEMATOCRIT | 28.2 (L) | 41.0 - 53.0 % | [facility] | | | | | | LABORATORY | | | | | | SERVICES, | | | | | | CORE | | + + + + + + | MCV | 93.7 | 80.0 - 96.0 fL | [facility] | | | | | | LABORATORY | | | | | | SERVICES, | | | | | | CORE | | + + + + + + | MCHC | 33.7 | 33.0 - 35.5 | [facility] | | | | | g/dL | LABORATORY | | | | | | SERVICES, | | | | | | CORE | | + + + + + + | RDW SD | 45.1 | 35.1 - 46.3 fL | [facility] | | | | | | LABORATORY | | | | | | SERVICES, | | | | | | CORE | | + + + + + + | PLATELET | 161 | 150 - 400 K/cu | [facility] | | | COUNT | | mm | LABORATORY | | | | | | SERVICES, | | | | | | CORE | | + + + + + + | MPV | 10.9 | 9.7 - 12.3 fL | [facility] [...] + + | Blood - Blood | + + + + + + + | Performing | Address | City/State/Zipcode | Phone Number | | Organization | | | | + + + + + | [facility] | [address] | [place] [address] | | | SERVICES, CORE | [address] | | | + + + + + MAGNESIUM, PLASMA (03/30/2015 4:42 AM PDT) + +-------+ + + + | Component | Value | Ref Range | Performed | Pathologist | | | | | At | Signature | + +-------+ + + + | MAGNESIUM,P | 1.8 | 1.8 - 2.5 mg/dL | [facility] | | | [facility] | | | LABORATORY | | | | | | SERVICES, | | | | | | CORE | | + +-------+ + + + + + | Specimen | + + | Blood - Blood | + + + + + + + | Performing | Address | City/State/Zipcode | Phone Number | | Organization | | | | + + + + + | [facility] | [address] | [place] [address] | | | [place] [facility] | [address] | | | + + + + + RENAL FUNCTION SET (NA,K,CL,CO2,BUN,CREAT,GLUC,CA,PHOS,ALB ) (03/30/2015 4:42 AM PDT) + +---------+ + + + | Component | Value | Ref Range | Performed | Pathologist | | | | | At | Signature | + +---------+ + + + | GLUCOSE, | 75 | 60 - 99 mg/dL | [facility] | | | PLASMA | | | LABORATORY | | | (LAB) | | | SERVICES, | | | | | | CORE | | + +---------+ + + + | BUN, PLASMA | 20 | 6 - 20 mg/dL | [facility] | | | (LAB) | | | LABORATORY | | | | | | SERVICES, | | | | | | CORE | | + +---------+ + + + | CREATININE | 0.77 | 0.70 - 1.30 | [facility] | | | PLASMA | | mg/dL | LABORATORY | | | (LAB) | | | SERVICES, | | | | | | CORE | | + +---------+ + + + | EGFR | >60 | >60 mL/min | [facility] | | | - | | | LABORATORY | | | [place] | | | SERVICES, | | | | | | CORE | | + +---------+ + + + | EGFR NON | >60 | >60 mL/min | [facility] | | | -[facility] | | | LABORATORY | | | [place] | | | SERVICES, | | | | | | CORE | | + +---------+ + + + | SODIUM, | 143 | 136 - 145 | [facility] | | | PLASMA | | mmol/L | LABORATORY | | | (LAB) | | | SERVICES, | | | | | | CORE | | + +---------+ + + + | POTASSIUM, | 3.4 | 3.4 - 5.0 | [facility] | | | PLASMA | | mmol/L | LABORATORY | | | (LAB) | | | SERVICES, | | | | | | CORE | | + +---------+ + + + | CHLORIDE, | 111 (H) | 97 - 108 mmol/L | [facility] | | | PLASMA | | | LABORATORY | | | (LAB) | | | SERVICES, | | | | | | CORE | | + +---------+ + + + | TOTAL CO2, | 25 | 21 - 32 mmol/L | [facility] | | | PLASMA | | | LABORATORY | | | (LAB) | | | SERVICES, | | | | | | CORE | | + +---------+ + + + | CALCIUM, | 8.1 (L) | 8.6 - 10.2 | [facility] | | | PLASMA | | mg/dL | LABORATORY | | | (LAB) | | | SERVICES, | | | | | | CORE | | + +---------+ + + + | ALBUMIN, | 1.9 (L) | 3.5 - 4.7 g/dL | [facility] | | | PLASMA | | | LABORATORY | | | (LAB) | | | SERVICES, | | | | | | CORE | | + +---------+ + + + | PHOSPHORUS, | 1.3 (L) | 2.4 - 4.7 mg/dL | [facility] | | | PLASMA | | | LABORATORY | | | (LAB) | | | SERVICES, | | | | | | CORE | | + +---------+ + + + | POTASSIUM | No Hemo | | [facility] | | | CMNT | | | LABORATORY | | | | | | SERVICES, | | | | | | CORE | | + +---------+ + + + | ANION GAP | 7 | mmol/L | [facility] | | | | | | LABORATORY | | | | | | SERVICES, | | | | | | CORE | | + +---------+ + + + | ANION | 12 (H) | 4 - 11 mmol/L | [facility] | | | GAP(ALB | | | LABORATORY | | | CORRECTED) | | | SERVICES, | | | | | | CORE | | + +---------+ + + + + + | Specimen | + + | Blood - Blood | + + + + + | Narrative | Performed At | + + + | GFR is estimated using the MDRD equation recommended by the | [facility] | | National Kidney Disease Education Program. Estimated GFR | LABORATORY | | Interpretive Information: <60 mL/min/1.73 sq m | SERVICES, CORE | | Chronic Kidney Disease <15 mL/min/1.73 sq m | | | Kidney Failure Estimated GFR greater that 60 mL/min/1.73 sq m is of | | | limited clinical value. The MDRD equation is not valid in the | | | following situations: - Patients under 18 years of age - Severe | | | malnutrition or obesity - Vegetarian diet - Rapidly changing kidney | | | function | | + + + + + + + + | Performing | Address | City/State/Zipcode | Phone Number | | Organization | | | | + + + + + | [facility] | [address] | [place] [address] | | | SERVICES, CORE | [address] | | | + + + + + AMIODARONE, SERUM (03/30/2015 4:42 AM PDT) + + + + + + | Component | Value | Ref Range | Performed | Pathologist | | | | | At | Signature | + + + + + + | AMIODARONE | <0.3 (L)Comment: | 0.5 - 2.0 ug/mL | [facility] | | | | INTERPRETIVE | | [facility] | | | | INFORMATION: Amiodarone | | PTH - INTFC | | | | Therapeutic Range: Total | | | | | | (Amiodarone and | | | | | | metabolite): 0.5-2.0 | | | | | | ug/mL Toxic Level:Total | | | | | | (Amiodarone and | | | | | | metabolite): Greater | | | | | | than 3.0 ug/mL Toxic | | | | | | concentrations may | | | | | | exacerbate arrhythmias, | | | | | | cause liver and lung | | | | | | toxicity, and thyroid | | | | | | dysfunction. The | | | | | | concentration of | | | | | | desethylamiodarone, an | | | | | | active major metabolite, | | | | | | is also reported, but | | | | | | no therapeutic range is | | | | | | established. At | | | | | | steady-state, the | | | | | | metabolite concentration | | | | | | is similar to the | | | | | | amiodarone | | | | | | concentration. | | | | + + + + + + | DESETHYAMIO | <0.3Comment: Performed | ug/mL | [facility] | | | DARONE | by [employer],[address] | | REG UN[facility] | | | | Miranda Patel, [facility] | | PTH - [facility] | | | | [id number] | | | | | | [phone]. | | | | | | Omer dey, | | | | | | , Lab. Director | | | | + + + + + + + + | Specimen | + + | Blood - Blood | + + + + + + + | Performing | Address | City/State/Zipcode | Phone Number | | Organization | | | | + + + + + | [facility] | [address] | [place], [place] | | | UNIV PTH - [facility] | | [phone] | | + + + + + CAPILLARY BLOOD GLUCOSE (NO CHG), POC (03/29/2015 7:57 PM PDT) + +-------+ + + + | Component | Value | Ref Range | Performed | Pathologist | | | | | At | Signature | + +-------+ + + + | BLOOD | 85 | 60 - 99 mg/dL | [facility] | | | GLUCOSE, | | | [facility] | | | POC | | | [facility] | | | | | | OF CARE | | | | | | TESTS | | + +-------+ + + + + + | Specimen | + + | | + + + + + + + | Performing | Address | City/State/Zipcode | Phone Number | | Organization | | | | + + + + + | [facility] | [address] | [place], [place] | | | [facility] OF CARE | [address] | [address] | | | TESTS | | | | + + + + + CAPILLARY BLOOD GLUCOSE (NO CHG), POC (03/29/2015 6:38 PM PDT) + +-------+ + + + | Component | Value | Ref Range | Performed | Pathologist | | | | | At | Signature | + +-------+ + + + | BLOOD | 67 | 60 - 99 mg/dL | [facility] | | | GLUCOSE, | | | [facility] | | | POC | | | [place] | | | | | | OF CARE | | | | | | TESTS | | + +-------+ + + + + + | Specimen | + + | | + + + + + + + | Performing | Address | City/State/Zipcode | Phone Number | | Organization | | | | + + + + + | [facility] | [address] | [place], [place] | | | [facility] | [facility] | [address] | | | TESTS | | | | + + + + + CULTURE, URINE [facility] (03/29/2015 12:22 PM PDT) + + + + + + | Component | Value | Ref Range | Performed | Pathologist | | | | | At | Signature | + + + + + + | URINE | No growth (<1000 cfu/mL) | | [facility] | | | CULTURE | after 24 hours | | LABORATORY | | | [facility] | | | SERVICES, | | | | | | CORE | | + + + + + + + + | Specimen | + + | Urine - Urine | + + + + + + + | Performing | Address | City/State/Zipcode | Phone Number | | Organization | | | | + + + + + | [facility] | [address] | [place] [address] | | | SERVICES, CORE | [address] | | | + + + + + UA, DIPSTICK ONLY (03/29/2015 12:22 PM PDT) + + + + + + | Component | Value | Ref Range | Performed | Pathologist | | | | | At | Signature | + + + + + + | COLOR(UR) | Carine | | [facility] | | | | | | LABORATORY | | | | | | SERVICES, | | | | | | CORE | | + + + + + + | APPEARANCE | Mod. Cloudy | | [facility] | | | | | | LABORATORY | | | | | | SERVICES, | | | | | | CORE | | + + + + + + | GLUCOSE(UR) | Negative | Negative, 50.0 | [facility] | | | | | mg/dL | LABORATORY | | | | | | SERVICES, | | | | | | CORE | | + + + + + + | PROTEIN(LAB | 30.0 | Negative, 30.0 | [facility] | | | ) | | mg/dL | LABORATORY | | | | | | SERVICES, | | | | | | CORE | | + + + + + + | BILIRUBIN | Negative | Negative | [facility] | | | | | | LABORATORY | | | | | | SERVICES, | | | | | | CORE | | + + + + + + | UROBILINOGE | <2.0 | <2.0 mg/dL | [facility] | | | N | | | LABORATORY | | | | | | SERVICES, | | | | | | CORE | | + + + + + + | PH(UR) | 6.0 | 5.0 - 8.0 | [facility] | | | | | | LABORATORY | | | | | | SERVICES, | | | | | | CORE | | + + + + + + | BLOOD | Moderate (A) | Negative | [facility] | | | | | | LABORATORY | | | | | | SERVICES, | | | | | | CORE | | + + + + + + | KETONES | Negative | Negative mg/dL | [facility] | | | | | | LABORATORY | | | | | | SERVICES, | | | | | | CORE | | + + + + + + | NITRITES | Negative | Negative | [facility] | | | | | | LABORATORY | | | | | | SERVICES, | | | | | | CORE | | + + + + + + | LEUKOCYTE | Large (A) | Negative | [facility] | | | ESTERASE | | | LABORATORY | | | | | | SERVICES, | | | | | | CORE | | + + + + + + | SPECIFIC | 1.018 | 1.005 - 1.030 | [facility] | | | GRAVITY | | | LABORATORY | | | | | | SERVICES, | | | | | | CORE | | + + + + + + + + | Specimen | + + | Urine - Urine | + + + + + + + | Performing | Address | City/State/Zipcode | Phone Number | | Organization | | | | + + + + + | [facility] | [address] | [place] [address] | | | SERVICES, CORE | [address] | | | + + + + + URINE, MICROSCOPIC EXAM (03/29/2015 12:22 PM PDT) + + + + + + | Component | Value | Ref Range | Performed | Pathologist | | | | | At | Signature | + + + + + + | RED CELLS | 40 (H) | 0 - 3 /hpf | [facility] | | | | | | LABORATORY | | | | | | SERVICES, | | | | | | CORE | | + + + + + + | WHITE CELLS | 163 (H) | 0 - 5 /hpf | [facility] | | | | | | LABORATORY | | | | | | SERVICES, | | | | | | CORE | | + + + + + + | BACTERIA | Few (A) | None /hpf | [facility] | | | | | | LABORATORY | | | | | | SERVICES, | | | | | | CORE | | + + + + + + | YEAST (LAB) | None | None /hpf | [facility] | | | | | | LABORATORY | | | | | | SERVICES, | | | | | | CORE | | + + + + + + | SQUAMOUS | Many (A) | None /hpf | [facility] | | | EPITHELIAL | | | LABORATORY | | | | | | SERVICES, | | | | | | CORE | | + + + + + + | MUCOUS | None | None /hpf | [facility] | | | | | | LABORATORY | | | | | | SERVICES, | | | | | | CORE | | + + + + + + | TRICHOMONAS | None | None /hpf | [facility] | | | | | | LABORATORY | | | | | | SERVICES, | | | | | | CORE | | + + + + + + | NON-SQUAMOU | None | None /hpf | [facility] | | | S EPITH | | | LABORATORY | | | | | | SERVICES, | | | | | | CORE | | + + + + + + | HYALINE | 0 | 0 - 2 /lpf | [facility] | | | CASTS | | | LABORATORY | | | | | | SERVICES, | | | | | | CORE | | + + + + + + | GRANULAR | 0 | 0 - 2 /lpf | [facility] | | | CASTS | | | LABORATORY | | | | | | SERVICES, | | | | | | CORE | | + + + + + + | CELLULAR | 0 | <=0 /lpf | [facility] | | | CASTS | | | LABORATORY | | | | | | SERVICES, | | | | | | CORE | | + + + + + + | TRIPLE P04 | None | None /hpf | [facility] | | | CRYSTALS | | | LABORATORY | | | | | | SERVICES, | | | | | | CORE | | + + + + + + | CALCIUM | None | None /hpf | [facility] | | | OXALATE | | | LABORATORY | | | YOSEF | | | SERVICES, | | | | | | CORE | | + + + + + + | URIC ACID | None | None /hpf | [facility] | | | CRYSTALS | | | LABORATORY | | | | | | SERVICES, | | | | | | CORE | | + + + + + + | AMORPHOUS | None | None /hpf | [facility] | | | CRYSTALS | | | LABORATORY | | | | | | SERVICES, | | | | | | CORE | | + + + + + + + + | Specimen | + + | Urine - Urine | + + + + + + + | Performing | Address | City/State/Zipcode | Phone Number | | Organization | | | | + + + + + | [facility] | [address] | [place] [address] | | | SERVICES, CORE | [address] | | | + + + + + URINE SCREEN FOR CULTURE (03/29/2015 12:22 PM PDT) + + + + + + | Component | Value | Ref Range | Performed | Pathologist | | | | | At | Signature | + + + + + + | URINE | Positive (A) | Negative | [facility] | | | SCREEN FOR | | | LABORATORY | | | CULTURE | | | SERVICES, | | | | | | CORE | | + + + + + + + + | Specimen | + + | Urine - Urine | + + + + + | Narrative | Performed At | + + + | Culture Screen Positive, specimen sent for culture. | [facility] | | | LABORATORY | | | SERVICES, CORE | + + + + + + + + | Performing | Address | City/State/Zipcode | Phone Number | | Organization | | | | + + + + + | [facility] | [address] | [place] [address] | | | SERVICES, [place] | [address] | | | + + + + + CAPILLARY BLOOD GLUCOSE (NO CHG), POC (03/29/2015 12:00 PM PDT) + +-------+ + + + | Component | Value | Ref Range | Performed | Pathologist | | | | | At | Signature | + +-------+ + + + | BLOOD | 83 | 60 - 99 mg/dL | [facility] - | | | GLUCOSE, | | | [facility] | | | POC | | | [facility] [place] | | | | | | OF CARE | | | | | | TESTS | | + +-------+ + + + + + | Specimen | + + | | + + + + + + + | Performing | Address | City/State/Zipcode | Phone Number | | Organization | | | | + + + + + | [facility] | [address] | [place], [place] | | | [facility] POINT OF CARE | [address] | [address] | | | TESTS | | | | + + + + + CBC (HEMOGRAM) ONLY (03/29/2015 6:38 AM PDT) + + + + + + | Component | Value | Ref Range | Performed | Pathologist | | | | | At | Signature | + + + + + + | WHITE CELL | 24.61 (H) | 4.40 - 11.00 | [facility] | | | COUNT | | K/cu mm | LABORATORY | | | | | | SERVICES, | | | | | | CORE | | + + + + + + | RED CELL | 3.50 (L) | 4.50 - 6.00 | [facility] | | | COUNT | | M/cu mm | LABORATORY | | | | | | SERVICES, | | | | | | CORE | | + + + + + + | HEMOGLOBIN | 10.8 (L) | 13.5 - 17.5 | [facility] | | | | | g/dL | LABORATORY | | | | | | SERVICES, | | | | | | CORE | | + + + + + + | HEMATOCRIT | 32.9 (L) | 41.0 - 53.0 % | [facility] | | | | | | LABORATORY | | | | | | SERVICES, | | | | | | CORE | | + + + + + + | MCV | 94.0 | 80.0 - 96.0 fL | [facility] | | | | | | LABORATORY | | | | | | SERVICES, | | | | | | CORE | | + + + + + + | MCHC | 32.8 | 33.0 - 35.5 | [facility] | | | | | g/dL | LABORATORY | | | | | | SERVICES, | | | | | | CORE | | + + + + + + | RDW SD | 45.9 | 35.1 - 46.3 fL | [facility] | | | | | | LABORATORY | | | | | | SERVICES, | | | | | | CORE | | + + + + + + | PLATELET | 188 | 150 - 400 K/cu | [facility] | | | COUNT | | mm | LABORATORY | | | | | | SERVICES, | | | | | | CORE | | + + + + + + | MPV | 11.3 | 9.7 - 12.3 fL | [facility] [...] + + | Blood - Blood | + + + + + + + | Performing | Address | City/State/Zipcode | Phone Number | | Organization | | | | + + + + + | [facility] | [address] | [place] [address] | | | SERVICES, CORE | [address] | | | + + + + + MAGNESIUM, PLASMA (03/29/2015 6:38 AM PDT) + +-------+ + + + | Component | Value | Ref Range | Performed | Pathologist | | | | | At | Signature | + +-------+ + + + | MAGNESIUM,P | 2.0 | 1.8 - 2.5 mg/dL | [facility] | | | LASMA | | | LABORATORY | | | | | | SERVICES, | | | | | | CORE | | + +-------+ + + + + + | Specimen | + + | Blood - Blood | + + + + + + + | Performing | Address | City/State/Zipcode | Phone Number | | Organization | | | | + + + + + | [facility] | [address] | [place] [address] | | | SERVICES, [place] | [address] | | | + + + + + RENAL FUNCTION SET (NA,K,CL,CO2,BUN,CREAT,GLUC,CA,PHOS,ALB ) (03/29/2015 6:38 AM PDT) + +---------+ + + + | Component | Value | Ref Range | Performed | Pathologist | | | | | At | Signature | + +---------+ + + + | GLUCOSE, | 85 | 60 - 99 mg/dL | [facility] | | | PLASMA | | | LABORATORY | | | (LAB) | | | SERVICES, | | | | | | CORE | | + +---------+ + + + | BUN, PLASMA | 18 | 6 - 20 mg/dL | [facility] | | | (LAB) | | | LABORATORY | | | | | | SERVICES, | | | | | | CORE | | + +---------+ + + + | CREATININE | 0.89 | 0.70 - 1.30 | [facility] | | | PLASMA | | mg/dL | LABORATORY | | | (LAB) | | | SERVICES, | | | | | | CORE | | + +---------+ + + + | EGFR | >60 | >60 mL/min | [facility] | | | - | | | LABORATORY | | | BELGIAN | | | SERVICES, | | | | | | CORE | | + +---------+ + + + | EGFR NON | >60 | >60 mL/min | [facility] | | | -MILAGRO | | | LABORATORY | | | RICAN | | | SERVICES, | | | | | | CORE | | + +---------+ + + + | SODIUM, | 139 | 136 - 145 | [facility] | | | PLASMA | | mmol/L | LABORATORY | | | (LAB) | | | SERVICES, | | | | | | CORE | | + +---------+ + + + | POTASSIUM, | 3.9 | 3.4 - 5.0 | [facility] | | | PLASMA | | mmol/L | LABORATORY | | | (LAB) | | | SERVICES, | | | | | | CORE | | + +---------+ + + + | CHLORIDE, | 107 | 97 - 108 mmol/L | [facility] | | | PLASMA | | | LABORATORY | | | (LAB) | | | SERVICES, | | | | | | CORE | | + +---------+ + + + | TOTAL CO2, | 27 | 21 - 32 mmol/L | [facility] | | | PLASMA | | | LABORATORY | | | (LAB) | | | SERVICES, | | | | | | CORE | | + +---------+ + + + | CALCIUM, | 8.7 | 8.6 - 10.2 | [facility] | | | PLASMA | | mg/dL | LABORATORY | | | (LAB) | | | SERVICES, | | | | | | CORE | | + +---------+ + + + | ALBUMIN, | 2.4 (L) | 3.5 - 4.7 g/dL | [facility] | | | PLASMA | | | LABORATORY | | | (LAB) | | | SERVICES, | | | | | | CORE | | + +---------+ + + + | PHOSPHORUS, | 1.7 (L) | 2.4 - 4.7 mg/dL | [facility] | | | PLASMA | | | LABORATORY | | | (LAB) | | | SERVICES, | | | | | | CORE | | + +---------+ + + + | POTASSIUM | No Hemo | | [facility] | | | CMNT | | | LABORATORY | | | | | | SERVICES, | | | | | | CORE | | + +---------+ + + + | ANION GAP | 5 | mmol/L | [facility] | | | | | | LABORATORY | | | | | | SERVICES, | | | | | | CORE | | + +---------+ + + + | ANION | 9 | 4 - 11 mmol/L | [facility] | | | GAP(ALB | | | LABORATORY | | | CORRECTED) | | | SERVICES, | | | | | | CORE | | + +---------+ + + + + + | Specimen | + + | Blood - Blood | + + + + + | Narrative | Performed At | + + + | GFR is estimated using the MDRD equation recommended by the | [facility] | | National Kidney Disease Education Program. Estimated GFR | LABORATORY | | Interpretive Information: <60 mL/min/1.73 sq m | SERVICES, CORE | | Chronic Kidney Disease <15 mL/min/1.73 sq m | | | Kidney Failure Estimated GFR greater that 60 mL/min/1.73 sq m is of | | | limited clinical value. The MDRD equation is not valid in the | | | following situations: - Patients under 18 years of age - Severe | | | malnutrition or obesity - Vegetarian diet - Rapidly changing kidney | | | function | | + + + + + + + + | Performing | Address | City/State/Zipcode | Phone Number | | Organization | | | | + + + + + | [facility] | [address] | [place] [address] | | | SERVICES, CORE | [address] | | | + + + + + X-RAY PORTABLE CHEST 1 VIEW (03/29/2015 5:57 AM PDT) + + + + + + | Component | Value | Ref Range | Performed | Pathologist | | | | | At | Signature | + + + + + + | X-RAY | EXAM: ND CHEST 1 VIEW | | | | | PORTABLE | 03/29/15 05:57:00 | | | | | CHEST 1 | HISTORY: Status post | | | | | VIEW | esophagectomy | | | | | | COMPARISON: 03/28/15 | | | | | | FINDINGS:Supportive | | | | | | equipment is unchanged. | | | | | | The cardiomediastinal | | | | | | silhouette isunchanged. | | | | | | Bibasilar atelectasis is | | | | | | unchanged. No | | | | | | pneumothorax. No | | | | | | pulmonaryedema. Trace | | | | | | bilateral pleural | | | | | | effusions are noted. | | | | | | IMPRESSION: Unchanged | | | | | | bibasilar atelectasis. | | | | | | Trace bilateral pleural | | | | | | effusions. Attending | | | | | | Radiologists: TIM | | | | | | SAÚL MDAuthor: | | | | | | AKOSUA VASQUEZ MD I | | | | | | have personally viewed | | | | | | this procedure/exam, | | | | | | reviewed this report, | | | | | | and madechanges to it | | | | | | where appropriate. | | | | | | Final/Electronically | | | | | | signed / TIM | | | | | | SAÚL 03/29/2015 9:37 | | | | | | AM | | | | + + + + + + + + | Specimen | + + | | + + + +---------+ + + | Performing | Address | City/State/Zipcode | Phone Number | | Organization | | | | + +---------+ + + | [facility] DEPARTMENT OF | | | | | RADIOLOGY | | | | + +---------+ + + OPERATION RECORD (03/28/2015 3:46 PM PDT) + + | Transcriptions | + + | Eric Conley MD - 03/27/2015 9:17 PM PDT Date of Service: 03/27/2015 | | Attending Surgeon: Vijay Akbar MD Engine Room Helper(s): Tito Rene MD | | MD Bulmaro Brock MD Preoperative | | Diagnosis: Esophageal cancer, adenocarcinoma, 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 For this reason, he was taken to | | the OR for a transhiatal esophagectomy.Procedure Performed: 1. Gastroduodenoscopy.2. | | Laparoscopic transhiatal esophagectomy with a pyloromyotomy.3. Laparoscopic jejunostomy | | tube placement.Procedure In Detail: The patient was brought into the operating room, | | where induction of general endotracheal anesthesia was performed. He had a previous | | epidural catheter placed in the preoperative holding area. After induction of | | anesthesia, proper arterial and central venous catheter monitoring was placed. The | | patient was in the supine position with the legs abducted and all the bony prominences | | were padded properly. His arms were tucked and his neck was hyperextended. He had a | | lower body bear hugger, received preoperative antibiotics, had bilateral SCDs. 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 We entered the stomach and the stomach was insufflated. | | There was no evidence of any tumor at or below the GE junction. Therefore the stomach | | was a good candidate for a conduit. We evacuated and suctioned the air from the stomach | | and retracted our gastroscope. The abdomen, chest, and neck were prepped and draped | | in usual sterile surgical fashion. We performed a preoperative timeout, where patient | | was recognized as well as the procedure to be performed. Next, we insufflated the | | abdomen with a small stab incision through the supraumbilical area, and using a | | perforating towel clamp, the abdominal wall was lifted and a Veress needle was | | introduced into the peritoneal cavity. A saline drop test was performed, and then we | | created pneumoperitoneum to 15 mmHg. Then, we placed our 1st trocar, 11 mm, using the | | MobilisafeStep system w, approximately 17 cm from the gastroesophageal junction, and slightly | | to the left. An angle laparoscope was introduced and on initial laparoscopy, there | | was no evidence of metastatic disease. There was a moderate amount of adhesions over | | the right lower quadrant from a previous appendectomy. We placed our trocars under | | direct visualization, 2 trocars in the left costal margin, the first at 12 cm from the | | gastrojejunal junction and the second one approximately 10 cm distal to the first. Two | | more ports were placed in the right costal margin, one 11 cm distal to the GE junction | | and the other one approximately 7 cm from that one. We used a [employer] liver retractor | | which was placed through a 5 mm port in the subxiphoid area. First, began the | | operation with the feeding jejunostomy tube placement by grabbing our transverse colon | | and reflected it superiorly. We able to identify ligament of Treitz rapidly and | | approximately 40-45 cm from the ligament of Treitz, a loop of jejunum reached very to | | the abdominal wall near the left lower quadrant,at a previously chosen site. We placed | | a T fastener percutaneously and into the jejunum for traction, this was removed at the | | end of the creation of the feeding jejunostomy. We then placed 3 sutures, 1 | | superolateral, superomedial, and inferolateral, with 2-0 Vicryls, to pexy the jejunum to | | the abdominal wall, creating a stuart. Once this was done, a needle introduced into | | the jejunum in the center of our stuart, and by corroborating the lumen with | | insufflation then a wire was passed, as well as a dilator and a sheath using the Salagen | | technique. We then passed the a 12 Fr David jejunostomy tube avoiding loops or kinks | | with in the bowel. Once the jejunostomy tube was in place, we placed a last pexing | | suture in the inferomedial aspect of the jejunum to the abdominal wall. Then, we turned | | our attention to our esophagectomy. The patient was then placed in steep reverse | | Trendelenburg position We initially incised the gastrohepatic ligament from the pars | | flaccida all the way to the diaphragmatic mariela. We dissected slightly diaphragmatic | | mariela without entering the mediastinum circumferentially around the esophagus. Then, we | | turned our attention to our short gastric dissection by retracting the stomach laterally | | and starting our short gastric dissection approximately at the level of the inferior | | pole of the spleen. All the short gastrics were taken down from the greater curvature | | all the way to the angle of His with the Harmonic scalpel. The Stomach was then rotated | | to the right and to expose and dissect few of the retrogastric vessels. Then, we turned | | our attention to the dissection of the greater curvature. We identified the distal | | branches of the right gastroepiploic arcade and began the dissection approximately 2 cm | | lateral to these. We were able to separate the lesser omentum from the colon. We | | followed this plane, following the greater curvature inferiorly past the pylorus with | | care not to injure the gastroepiploic vessels. The stomach was retracted anteiorly to | | perform a posterior gastric dissection essentially lifting the posterior gastric wall | | from the anterior pancreatic bed. Then, we continued with the dissection of the | | duodenum and a Sury maneuver was performed by retracting the pylorus and the stomach | | laterally and dissecting along the 1st, 2nd and 3rd portion of the duodenum. There were | | some adhesions from the duodenum to the gallbladder which were devided. A generous | | Sury maneuver was performed allowing full rotation of the duodenum and also allowing | | the pylorus to reach to the hiatus without any tension. We began the celiac | | lymphadenectomy by isolating the left gastric vascular pedicle. This was done ath the | | base of the deccusation fo the mariela of the diaphragm. Both the artery and vein were | | transected with a single fire of the taylor load Endo-FADUMO stapler at the level of the | | celiac axis. We had already fully mobilized the stomach so we were ready to fashion our | | conduit. We chose a point about 5 cm from the pylorus on the lesser curve. This also | | made a single firing of the Endo FADUMO purple load 45 mm stapler. This established a | | start for our conduit. Then using successive firings of the Endo-FADUMO 60 mm load we came | | up along the longitudinal axis of the stomach and a mass that was removed essentially a | | third of the stomach as specimen leaving behind a nice gastric tube measuring about 3.5 | | cm in greatest diameter. This tapered off nicely to a point near the fundus. It | | remained pink even after creation of the conduit. We then stapled off a small piece of | | the remnant of the stomach at the greater curvature and sent this off as distal margin. | | On frozen section analysis there was no evidence of malignancy. The staple line was | | hemostatic. Then, we turned our attention to the pyloromyotomy by placing an 0 Tycron | | suture transfixing the pylorus. The stomach and duodenum were scored to expose the | | muscle fibers and with the L hook tibers were dividided using blunt dissection. Then, | | we turned our attention to our mediastinal dissection. We placed a Burlington drain around | | our esophagus, and this was secured with an endo-loop suture. By retracting the | | esophagus, distally we were able to circumferentially dissect its attachments from both | | left and right crura and entering the mediastinal space. Upon entering the mediastinum, | | there was very thick, inflamed, inflammatory adhesions in this area, and the right | | pleural space was entered, and violated. To avoid tension pneumothorax, a right chest | | tube was placed and placed to suction. We continued mediastinal dissection with a | | combination of blunt dissection and use of the Harmonic scalpel. Eventually, our | | left-sided pleural space was violated, and, again, to avoid tension physiology, a chest | | tube was placed. The patient tolerated this part of the dissection well. We continued | | dissection circumferentially, dividing both anterior and posterior vagus, ensuring great | | lymphadenectomy of the mediastinum. The lymph nodes from station 9 were resected | | separately, but sent as a same specimen. Once we had a full circumferential dissection | | of the mid esophagus, we turned our attention to our neck dissection. We performed a | | neck dissection using a transverse cervical incision, approximately a fingerbreadth from | | the sternum which was extended towards external jugular vein. Skin was incised, the | | platysma divided, and the platysma flaps were raised superiorly and inferiorly. The | | sternocleidomastoid muscles were retracted laterally and then the sternohyoid and | | sternothyroid muscles were transected and reflected around the excision of the thyroid. | | The middle thyroid vessels were dissected and the left thyroid lobe was retracted | | medially. With blunt dissection, we entered the tracheo-esophageal groove. The | | recurrent laryngeal nerve was visualized and preserved. We encircled the esophagus with | | blunt dissection and passed an umbilical tape for retraction. The esophagus was now | | free at the neck so it was time for inversion esophagectomy. We transected the | | esophagus using a 45 mm purple load of the Endo-FADUMO and placed stay sutures in the | | distal esophagus. This was opened with Metzenbaum scissors, and a vein stripper was | | introduced. This was guided under direct visualization to the apex of our specimen. | | One of our port sites of the left upper quadrant was extended, and was used for | | extraction of our specimen. Using Radha clamps, the specimen was grasped. It was | | opened and the vein stripper was pulled with caution to avoid any tearing or bleeding. | | We were able to dissect the rest of the esophagus with this technique. It was inverted | | entirely without any fracture or rupturing of the specimen. We then passed a 28-Guatemalan | | chest tube from the neck incision to the mediastinum into the abdomen where the conduit | | was sutured to. 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 We inspected our | | proximal esophagus and this was everted several cm proximally and no evidence of | | Cheema's epithelium was noted. We returned back to the laparoscope where the gastric | | conduit was sutured with 2 Tycron stitches to the chest tube and the chest tube was | | pulled into the neck. Care was taken to guide the orientation of our gastric conduit | | with our staple line towards the right side, and our gastroepiploic arcade on the left | | lateral aspect. There was enough length and no tension in our conduit. We then | | resected our conduit approximately 5 cm more at the level of the neck given the | | redundancy of the conduit. We then turned our attention to the cervical anastomosis. We | | imbricated the staple line of the gastric conduit approximately 8 cm with interrupted | | 2-0 silk sutures. We placed a holding suture in the anterior wall of the conduit for | | retraction. A gastrotomy was done on the anterior surface and using 2 sutures the | | proximal part of the conduit was passed in the retroesophageal space. We then performed | | full-thickness sutures marking the corners of anastomosis from our stomach and | | esophagus. A 45 mm purple load of the Endo-FADUMO was used to create an | | esophagogastrostomy in the modified Orringer fashion. The cervical gastrostomy was | | closed in a 2 layer fashion with a running 3-0 Maxon followed by imbricating 3-0 silk | | sutures. Before finishing our anastomosis, we ensured that our NG tube was passed | | through our anastomosis and a methylene blue test was held. The anesthesiologist | | infused 100 mL of diluted methylene blue, and there was no evidence of leakage of | | anastomosis or pyloromyotomy. This methylene blue was then suctioned out through | | nasogastric tube. We then placed a Noel-Carlson drain into the upper mediastinum | | through a stab incision in the corner of our neck incision. This was secured with a 2-0 | | nylon. The area was irrigated. It was hemostatic. The platysma and the neck was | | closed in layers with 3-0 Polysorb for the platysma and a running Biosyn for the skin. | | Skin glue was applied. Finally, we turned our attention to the pexing of our conduit to | | the diaphragm. We placed three 0 Tycron sutures with pledgets in the 3, 12, and 9 | | o'clock positions around the hiatus and finally performed our colpopexy, pexing the | | transverse colon to the falciform ligament medially, and some omental tissue lateral | | just a few cm from the left costal margin. The abdomen was hemostatic. We evacuated | | pneumoperitoneum, and closed the fascia from our extended incision with a #0 Maxon, and | | the skin of all incisions was closed with a 4-0 Biosyn. Skin glue was applied. Both | | chest tubes were secured at the time of placement with nylon sutures, and the disk of | | the jejunostomy tube was also secured with nylon sutures. The patient was extubated in | | the OR, and transferred to the PACU in stable condition. All instruments, sponges, and | | needle counts were correct.Karlee Brock MDFM/CLAUDIALDD: 03/27/2015 | | 18:54:08DT: 03/27/2015 21:17:00Job #: [id number] | + + CAPILLARY BLOOD GLUCOSE (NO CHG), POC (03/28/2015 12:44 PM PDT) + +---------+ + + + | Component | Value | Ref Range | Performed | Pathologist | | | | | At | Signature | + +---------+ + + + | BLOOD | 110 (H) | 60 - 99 mg/dL | [facility] - | | | GLUCOSE, | | | [facility] | | | POC | | | [facility] | | | | | | OF CARE | | | | | | TESTS | | + +---------+ + + + + + | Specimen | + + | | + + + + + + + | Performing | Address | City/State/Zipcode | Phone Number | | Organization | | | | + + + + + | [facility] | 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 | | | | | | COMPARISON: Yesterday | | | | | | FINDINGS: Support | | | | | | equipment is unchanged. | | | | | | Left superior | | | | | | mediastinal Yunier drain | | | | | | is stillpresent. | | | | | | Evidence of median | | | | | | sternotomy. Moderate | | | | | | bibasilar atelectasis. | | | | | | Noevidence of | | | | | | pneumothorax or pleural | | | | | | effusion. | | | | | | Cardiomediastinal | | | | | | silhouette isnormal. | | | | | | IMPRESSION: Moderate | | | | | | bibasilar atelectasis. | | | | | | Attending Radiologists: | | | | | | TOMA GONGORA, | | | | | | MDAuthor: KELBY GARCIA, | | | | | | I have personally | | | | | | viewed this | | | | | | procedure/exam, reviewed | | | | | | this report, and | | | | | | madechanges to it where | | | | | | appropriate. | | | | | | Final/Electronically | | | | | | signed / TOMA Ramirez | | | | | | ROLAN 03/28/2015 | | | | | | 10:46 AM | | | | + + [...] | | + +---------+ + + CBC (HEMOGRAM) ONLY (03/28/2015 2:11 AM PDT) + + + + + + | Component | Value | Ref Range | Performed | Pathologist | | | | | At | Signature | + + + + + + | WHITE CELL | 18.11 (H) | 4.40 - 11.00 | [facility] | | | COUNT | | K/cu mm | LABORATORY | | | | | | SERVICES, | | | | | | CORE | | + + + + + + | RED CELL | 3.82 (L) | 4.50 - 6.00 | [facility] [...] + + + + | HEMATOCRIT | 35.2 (L) | 41.0 - 53.0 % | [facility] | | | | | | LABORATORY | | | | | | SERVICES, | | | | | | CORE | | + + + + + + | MCV | 92.1 | 80.0 - 96.0 fL | [facility] | | | | | | LABORATORY | | | | | | SERVICES, | | | | | | CORE | | + + + + + + | MCHC | 33.5 | 33.0 - 35.5 | [facility] | | | | | g/dL | LABORATORY | | | | | | SERVICES, | | | | | | CORE | | + + + + + + | RDW SD | 43.7 | 35.1 - 46.3 fL | [facility] | | | | | | LABORATORY | | | | | | SERVICES, | | | | | | CORE | | + + + + + + | PLATELET | 219 | 150 - 400 K/cu | [facility] | | | COUNT | | mm | LABORATORY | | | | | | SERVICES, | | | | | | CORE | | + + + + + + | MPV | 11.6 | 9.7 - 12.3 fL | [facility] [...] + + | Blood - Blood | + + + + + + + | Performing | Address | City/State/Zipcode | Phone Number | | Organization | | | | + + + + + | [facility] | [address] | [place] [address] | | | SERVICES, CORE | [address] | | | + + + + + RENAL FUNCTION SET (NA,K,CL,CO2,BUN,CREAT,GLUC,CA,PHOS,ALB ) (03/28/2015 2:11 AM PDT) + +---------+ + + + | Component | Value | Ref Range | Performed | Pathologist | | | | | At | Signature | + +---------+ + + + | GLUCOSE, | 133 (H) | 60 - 99 mg/dL | [facility] | | | PLASMA | | | LABORATORY | | | (LAB) | | | SERVICES, | | | | | | CORE | | + +---------+ + + + | BUN, PLASMA | 22 (H) | 6 - 20 mg/dL | [facility] | | | (LAB) | | | LABORATORY | | | | | | SERVICES, | | | | | | CORE | | + +---------+ + + + | CREATININE | 0.97 | 0.70 - 1.30 | [facility] | | | PLASMA | | mg/dL | LABORATORY | | | (LAB) | | | SERVICES, | | | | | | CORE | | + +---------+ + + + | EGFR | >60 | >60 mL/min | [facility] | | | - | | | LABORATORY | | | BELGIAN | | | SERVICES, | | | | | | CORE | | + +---------+ + + + | EGFR NON | >60 | >60 mL/min | [facility] | | | -MILAGRO | | | LABORATORY | | | RICAN | | | SERVICES, | | | | | | CORE | | + +---------+ + + + | SODIUM, | 140 | 136 - 145 | [facility] | | | PLASMA | | mmol/L | LABORATORY | | | (LAB) | | | SERVICES, | | | | | | CORE | | + +---------+ + + + | POTASSIUM, | 4.3 | 3.4 - 5.0 | [facility] | | | PLASMA | | mmol/L | LABORATORY | | | (LAB) | | | SERVICES, | | | | | | CORE | | + +---------+ + + + | CHLORIDE, | 107 | 97 - 108 mmol/L | [facility] | | | PLASMA | | | LABORATORY | | | (LAB) | | | SERVICES, | | | | | | CORE | | + +---------+ + + + | TOTAL CO2, | 26 | 21 - 32 mmol/L | [facility] | | | PLASMA | | | LABORATORY | | | (LAB) | | | SERVICES, | | | | | | CORE | | + +---------+ + + + | CALCIUM, | 9.0 | 8.6 - 10.2 | [facility] | | | PLASMA | | mg/dL | LABORATORY | | | (LAB) | | | SERVICES, | | | | | | CORE | | + +---------+ + + + | ALBUMIN, | 2.9 (L) | 3.5 - 4.7 g/dL | [facility] | | | PLASMA | | | LABORATORY | | | (LAB) | | | SERVICES, | | | | | | CORE | | + +---------+ + + + | PHOSPHORUS, | 3.1 | 2.4 - 4.7 mg/dL | [facility] | | | PLASMA | | | LABORATORY | | | (LAB) | | | SERVICES, | | | | | | CORE | | + +---------+ + + + | POTASSIUM | No Hemo | | [facility] | | | CMNT | | | LABORATORY | | | | | | SERVICES, | | | | | | CORE | | + +---------+ + + + | ANION GAP | 7 | mmol/L | [facility] | | | | | | LABORATORY | | | | | | SERVICES, | | | | | | CORE | | + +---------+ + + + | ANION | 9 | 4 - 11 mmol/L | [facility] | | | GAP(ALB | | | LABORATORY | | | CORRECTED) | | | SERVICES, | | | | | | CORE | | + +---------+ + + + + + | Specimen | + + | Blood - Blood | + + + + + | Narrative | Performed At | + + + | GFR is estimated using the MDRD equation recommended by the | [facility] | | National Kidney Disease Education Program. Estimated GFR | LABORATORY | | Interpretive Information: <60 mL/min/1.73 sq m | SERVICES, CORE | | Chronic Kidney Disease <15 mL/min/1.73 sq m | | | Kidney Failure Estimated GFR greater that 60 mL/min/1.73 sq m is of | | | limited clinical value. The MDRD equation is not valid in the | | | following situations: - Patients under 18 years of age - Severe | | | malnutrition or obesity - Vegetarian diet - Rapidly changing kidney | | | function | | + + + + + + + + | Performing | Address | City/State/Zipcode | Phone Number | | Organization | | | | + + + + + | [facility] | [address] | [place] [address] | | | SERVICES, CORE | [address] | | | + + + + + MAGNESIUM, PLASMA (03/28/2015 2:11 AM PDT) + +---------+ + + + | Component | Value | Ref Range | Performed | Pathologist | | | | | At | Signature | + +---------+ + + + | MAGNESIUM,P | 1.6 (L) | 1.8 - 2.5 mg/dL | [facility] | | | LASMA | | | LABORATORY | | | | | | SERVICES, | | | | | | CORE | | + +---------+ + + + + + | Specimen | + + | Blood - Blood | + + + + + + + | Performing | Address | City/State/Zipcode | Phone Number | | Organization | | | | + + + + + | [facility] | [address] | [place] [address] | | | NELLY, CORE | [address] | | | + + + + + X-RAY PORTABLE CHEST 1 VIEW (03/27/2015 3:50 PM PDT) + + + + + + | Component | Value | Ref Range | Performed | Pathologist | | | | | At | Signature | + + + + + + | X-RAY | EXAM: ND CHEST 1 VIEW | | | | | PORTABLE | 03/27/15 15:50:00 | | | | | CHEST 1 | HISTORY: History of | | | | | VIEW | esophageal | | | | | | adenocarcinoma. Right | | | | | | internal jugular | | | | | | centralvenous catheter | | | | | | and bilateral chest | | | | | | tubes placed | | | | | | intraoperatively for | | | | | | bilateralpneumothoraces | | | | | | during transhiatal | | | | | | esophagectomy. | | | | | | COMPARISON: PET/CT of | | | | | | 01/10/2015 FINDINGS: A | | | | | | right internal jugular | | | | | | central venous catheter | | | | | | has been placed with the | | | | | | tipin the upper | | | | | | superior vena cava. An | | | | | | enteric tube is present | | | | | | and its tip appearsto | | | | | | terminate just below the | | | | | | diaphragm. Bilateral | | | | | | superiorly directed | | | | | | chesttubes are noted. | | | | | | Left superior | | | | | | mediastinal Yunier drain | | | | | | is present. | | | | | | Sternotomywires are | | | | | | intact and well aligned. | | | | | | No evidence of | | | | | | pneumothorax or | | | | | | pleuraleffusion. Changes | | | | | | from prior median | | | | | | sternotomy are noted. | | | | | | Cardiomediastinal | | | | | | silhouette is normal in | | | | | | size and contour. | | | | | | Bibasilaratelectasis is | | | | | | present. IMPRESSION: | | | | | | Right internal jugular | | | | | | central venous catheter | | | | | | with tip in the upper | | | | | | SVC. Bilateral chest | | | | | | tubes with no evidence | | | | | | of residual | | | | | | pneumothorax. Bibasilar | | | | | | atelectasis. Attending | | | | | | Radiologists: LAVON | | | | | | FUSDawn, MDAuthor: SHELLI | | | | | | MD DEEPA I have | | | | | | personally viewed this | | | | | | procedure/exam, reviewed | | | | | | this report, and | | | | | | madechanges to it where | | | | | | appropriate. | | | | | | Final/Electronically | | | | | | signed / LAVON | | | | | | FUSS 03/27/2015 16:42 PM | | | | | | | [...] | | | + +---------+ + + CAPILLARY BLOOD GLUCOSE (NO CHG), POC (03/27/2015 3:33 PM PDT) + +---------+ + + + | Component | Value | Ref Range | Performed | Pathologist | | | | | At | Signature | + +---------+ + + + | BLOOD | 115 (H) | 60 - 99 mg/dL | [facility] - | | | GLUCOSE, | | | [facility] | | | POC | | | [facility] | | | | | | OF CARE | | | | | | TESTS | | + +---------+ + + + + + | Specimen | + + | | + + + + + + + | Performing | Address | City/State/Zipcode | Phone Number | | Organization | | | | + + + + + | [facility] | [address] | [place], [place] | | | [facility] CARE | [address] | [address] | | | TESTS | | | | + + + + + BLOOD GASES, ARTERIAL - LAB (03/27/2015 3:23 PM PDT) + + + + + + | Component | Value | Ref Range | Performed | Pathologist | | | | | At | Signature | + + + + + + | PAT TEMP | Comment: not given | Degree C | [facility] | | | ARTERIAL | | | LABORATORY | | | | | | SERVICES, | | | | | | CORE | | + + + + + + | FIO2 | Comment: not given | | [facility] | | | ARTERIAL | | | LABORATORY | | | | | | SERVICES, | | | | | | CORE | | + + + + + + | PH ARTERIAL | 7.34 (L) | 7.37 - 7.44 | [facility] | | | | | | LABORATORY | | | | | | SERVICES, | | | | | | CORE | | + + + + + + | PCO2 | 48 (H) | 32 - 43 mmHg | [facility] | | | ARTERIAL | | | LABORATORY | | | | | | SERVICES, | | | | | | CORE | | + + + + + + | PO2 | 81 | 72 - 104 mmHg | [facility] | | | ARTERIAL | | | LABORATORY | | | | | | SERVICES, | | | | | | CORE | | + + + + + + | HCO3 | 25 | 21 - 28 mmol/L | [facility] | | | ARTERIAL | | | LABORATORY | | | | | | SERVICES, | | | | | | CORE | | + + + + + + | TOTAL CO2 | 27 | 22 - 28 mmol/L | [facility] | | | ARTERIAL | | | LABORATORY | | | | | | SERVICES, | | | | | | CORE | | + + + + + + | BASE EXCESS | -0.5 | | [facility] | | | ARTERIAL | | | LABORATORY | | | | | | SERVICES, | | | | | | CORE | | + + + + + + | O2 SAT, | 94.8 | 92.0 - 98.0 | [facility] | | | ARTERIAL | | | LABORATORY | | | | | | SERVICES, | | | | | | CORE | | + + + + + + | PAO2/FIO2 | | >300 mmHg | [facility] | | | RATIO | | | LABORATORY | | | | | | SERVICES, | | | | | | CORE | | + + + + + + + + | Specimen | + + | Blood - Blood | + + + + + + + | Performing | Address | City/State/Zipcode | Phone Number | | Organization | | | | + + + + + | [facility] | [address] | [place] [address] | | | SERVICES, CORE | [address] | | | + + + + + CBC (HEMOGRAM) ONLY (03/27/2015 3:22 PM PDT) + + + + + + | Component | Value | Ref Range | Performed | Pathologist | | | | | At | Signature | + + + + + + | WHITE CELL | 23.27 (H) | 4.40 - 11.00 | [facility] | | | COUNT | | K/cu mm | LABORATORY | | | | | | SERVICES, | | | | | | CORE | | + + + + + + | RED CELL | 3.86 (L) | 4.50 - 6.00 | [facility] | | | COUNT | | M/cu mm | LABORATORY | | | | | | SERVICES, | | | | | | CORE | | + + + + + + | HEMOGLOBIN | 12.0 (L) | 13.5 - 17.5 | [facility] | | | | | g/dL | LABORATORY | | | | | | SERVICES, | | | | | | CORE | | + + + + + + | HEMATOCRIT | 35.7 (L) | 41.0 - 53.0 % | [facility] | | | | | | LABORATORY | | | | | | SERVICES, | | | | | | CORE | | + + + + + + | MCV | 92.5 | 80.0 - 96.0 fL | [facility] | | | | | | LABORATORY | | | | | | SERVICES, | | | | | | CORE | | + + + + + + | MCHC | 33.6 | 33.0 - 35.5 | [facility] | | | | | g/dL | LABORATORY | | | | | | SERVICES, | | | | | | CORE | | + + + + + + | RDW SD | 44.2 | 35.1 - 46.3 fL | [facility] | | | | | | LABORATORY | | | | | | SERVICES, | | | | | | CORE | | + + + + + + | PLATELET | 244 | 150 - 400 K/cu | [facility] | | | COUNT | | mm | LABORATORY | | | | | | SERVICES, | | | | | | CORE | | + + + + + + | MPV | 11.2 | 9.7 - 12.3 fL | [facility] [...] + + | Blood - Blood | + + + + + + + | Performing | Address | City/State/Zipcode | Phone Number | | Organization | | | | + + + + + | [facility] | [address] | [place] [address] | | | SERVICES, CORE | [address] | | | + + + + + RENAL FUNCTION SET (NA,K,CL,CO2,BUN,CREAT,GLUC,CA,PHOS,ALB ) (03/27/2015 3:22 PM PDT) + +---------+ + + + | Component | Value | Ref Range | Performed | Pathologist | | | | | At | Signature | + +---------+ + + + | GLUCOSE, | 133 (H) | 60 - 99 mg/dL | [facility] | | | PLASMA | | | LABORATORY | | | (LAB) | | | SERVICES, | | | | | | CORE | | + +---------+ + + + | BUN, PLASMA | 21 (H) | 6 - 20 mg/dL | [facility] | | | (LAB) | | | LABORATORY | | | | | | SERVICES, | | | | | | CORE | | + +---------+ + + + | CREATININE | 1.11 | 0.70 - 1.30 | [facility] | | | PLASMA | | mg/dL | LABORATORY | | | (LAB) | | | SERVICES, | | | | | | CORE | | + +---------+ + + + | EGFR | >60 | >60 mL/min | [facility] | | | - | | | LABORATORY | | | BELGIAN | | | SERVICES, | | | | | | CORE | | + +---------+ + + + | EGFR NON | >60 | >60 mL/min | [facility] | | | -MILAGRO | | | LABORATORY | | | RICAN | | | SERVICES, | | | | | | CORE | | + +---------+ + + + | SODIUM, | 141 | 136 - 145 | [facility] | | | PLASMA | | mmol/L | LABORATORY | | | (LAB) | | | SERVICES, | | | | | | CORE | | + +---------+ + + + | POTASSIUM, | 4.3 | 3.4 - 5.0 | [facility] | | | PLASMA | | mmol/L | LABORATORY | | | (LAB) | | | SERVICES, | | | | | | CORE | | + +---------+ + + + | CHLORIDE, | 109 (H) | 97 - 108 mmol/L | [facility] | | | PLASMA | | | LABORATORY | | | (LAB) | | | SERVICES, | | | | | | CORE | | + +---------+ + + + | TOTAL CO2, | 25 | 21 - 32 mmol/L | [facility] | | | PLASMA | | | LABORATORY | | | (LAB) | | | SERVICES, | | | | | | CORE | | + +---------+ + + + | CALCIUM, | 9.3 | 8.6 - 10.2 | [facility] | | | PLASMA | | mg/dL | LABORATORY | | | (LAB) | | | SERVICES, | | | | | | CORE | | + +---------+ + + + | ALBUMIN, | 3.0 (L) | 3.5 - 4.7 g/dL | [facility] | | | PLASMA | | | LABORATORY | | | (LAB) | | | SERVICES, | | | | | | CORE | | + +---------+ + + + | PHOSPHORUS, | 2.0 (L) | 2.4 - 4.7 mg/dL | [facility] | | | PLASMA | | | LABORATORY | | | (LAB) | | | SERVICES, | | | | | | CORE | | + +---------+ + + + | POTASSIUM | No Hemo | | [facility] | | | CMNT | | | LABORATORY | | | | | | SERVICES, | | | | | | CORE | | + +---------+ + + + | ANION GAP | 7 | mmol/L | [facility] | | | | | | LABORATORY | | | | | | SERVICES, | | | | | | CORE | | + +---------+ + + + | ANION | 9 | 4 - 11 mmol/L | [facility] | | | GAP(ALB | | | LABORATORY | | | CORRECTED) | | | SERVICES, | | | | | | CORE | | + +---------+ + + + + + | Specimen | + + | Blood - Blood | + + + + + | Narrative | Performed At | + + + | GFR is estimated using the MDRD equation recommended by the | [facility] | | National Kidney Disease Education Program. Estimated GFR | LABORATORY | | Interpretive Information: <60 mL/min/1.73 sq m | SERVICES, CORE | | Chronic Kidney Disease <15 mL/min/1.73 sq m | | | Kidney Failure Estimated GFR greater that 60 mL/min/1.73 sq m is of | | | limited clinical value. The MDRD equation is not valid in the | | | following situations: - Patients under 18 years of age - Severe | | | malnutrition or obesity - Vegetarian diet - Rapidly changing kidney | | | function | | + + + + + + + + | Performing | Address | City/State/Zipcode | Phone Number | | Organization | | | | + + + + + | [facility] | [address] | [place] [address] | | | SERVICES, CORE | [address] | | | + + + + + LACTATE (ART), POC (03/27/2015 2:16 PM PDT) + +---------+ + + + | Component | Value | Ref Range | Performed | Pathologist | | | | | At | Signature | + +---------+ + + + | LACTATE | 1.9 (H) | 0.5 - 1.6 | [facility] - | | | ARTERIAL, | | mmol/L | [facility] | | | POC | | | [facility] | | | | | | OF CARE | | | | | | TESTS | | + +---------+ + + + + + | Specimen | + + | | + + + + + + + | Performing | Address | City/State/Zipcode | Phone Number | | Organization | | | | + + + + + | [facility] | [address] | [place], [place] | | | [facility] | [facility] | [address] | | | TESTS | | | | + + + + + SODIUM POC (03/27/2015 2:16 PM PDT) + +-------+ + + + | Component | Value | Ref Range | Performed | Pathologist | | | | | At | Signature | + +-------+ + + + | SODIUM, POC | 140 | 134 - 143 | [facility] - | | | | | mmol/L | [facility] | | | | | | [facility] | | | | | | OF CARE | | | | | | TESTS | | + +-------+ + + + + + | Specimen | + + | | + + + + + + + | Performing | Address | City/State/Zipcode | Phone Number | | Organization | | | | + + + + + | [facility] | [address] | [place], [place] | | | [facility] | [facility] | [address] | | | TESTS | | | | + + + + + POTASSIUM, POC (03/27/2015 2:16 PM PDT) + +-------+ + + + | Component | Value | Ref Range | Performed | Pathologist | | | | | At | Signature | + +-------+ + + + | POTASSIUM, | 4.3 | 3.4 - 5.0 | [facility] - | | | POC | | mmol/L | [facility] | | | | | | [facility] | | | | | | OF CARE | | | | | | TESTS | | + +-------+ + + + + + | Specimen | + + | | + + + + + + + | Performing | Address | City/State/Zipcode | Phone Number | | Organization | | | | + + + + + | [facility] | [address] | [place], [place] | | | [facility] | [address] | [phone] | | | TESTS | | | | + + + + + GLUCOSE, POC (03/27/2015 2:16 PM PDT) + +---------+ + + + | Component | Value | Ref Range | Performed | Pathologist | | | | | At | Signature | + +---------+ + + + | GLUCOSE, | 135 (H) | 60 - 99 mg/dL | [facility] | | | POC | | | [facility] | | | | | | [facility] | | | | | | [facility] | | | | | | TESTS | | + +---------+ + + + + + | Specimen | + + | | + + + + + + + | Performing | Address | City/State/Zipcode | Phone Number | | Organization | | | | + + + + + | [facility] | [address] | [place], [place] | | | [facility] | [address] | [address] | | | TESTS | | | | + + + + + DONN PENA (03/27/2015 2:16 PM PDT) + +-------+ + + + | Component | Value | Ref Range | Performed | Pathologist | | | | | At | Signature | + +-------+ + + + | CHLORIDE, | 108 | 97 - 108 mmol/L | [facility] | | | POC | | | [facility] | | | | | | [facility] | | | | | | [facility] | | | | | | TESTS | | + +-------+ + + + + + | Specimen | + + | | + + + + + + + | Performing | Address | City/State/Zipcode | Phone Number | | Organization | | | | + + + + + | [facility] | [address] | [place], [place] | | | [facility] | [address] | [address] | | | TESTS | | | | + + + + + FELICIA IONIZED CA, POC (03/27/2015 2:16 PM PDT) + +-------+ + + + | Component | Value | Ref Range | Performed | Pathologist | | | | | At | Signature | + +-------+ + + + | FELICIA | 1.32 | 1.14 - 1.32 | [facility] | | | IONIZED CA, | | mmol/L | [facility] | | | POC | | | [facility] | | | | | | OF CARE | | | | | | TESTS | | + +-------+ + + + + + | Specimen | + + | | + + + + + + + | Performing | Address | City/State/Zipcode | Phone Number | | Organization | | | | + + + + + | [facility] | [address] | [place], [place] | | | [facility]ARE | [address] | [address] | | | TESTS | | | | + + + + + HEMOGLOBIN-COOX, POC (03/27/2015 2:16 PM PDT) + + + + + + | Component | Value | Ref Range | Performed | Pathologist | | | | | At | Signature | + + + + + + | TOTAL | 12.8 (L) | 13.5 - 17.5 | [facility] - | | | HEMOGLOBIN, | | g/dL | [facility] | | | POC | | | [facility] | | | | | | OF CARE | | | | | | TESTS | | + + + + + + | OXYHEMOGLOB | 98.1 | 94.0 - 100 % | [facility] | | | IN, POC | | | [facility] | | | | | | [facility]INT | | | | | | OF CARE | | | | | | TESTS | | + + + + + + | CARBOXYHEMO | 1.0 | 0.0 - 1.5 % | [facility] - | | | GLOBIN, POC | | | [facility] | | | | | | [facility] | | | | | | OF CARE | | | | | | TESTS | | + + + + + + | DEOXYHEMOGL | 0.4 | | [facility] | | | OBIN, POC | | | [facility] | | | | | | [facility] | | | | | | OF CARE | | | | | | TESTS | | + + + + + + | HEMATOCRIT, | 39.1 (L) | 41.0 - 53.0 % | [facility] | | | POC | | | [facility] | | | | | | [facility] | | | | | | OF CARE | | | | | | TESTS | | + + + + + + + + | Specimen | + + | | + + + + + + + | Performing | Address | City/State/Zipcode | Phone Number | | Organization | | | | + + + + + | [facility] | [address] | [place], [place] | | | [facility] CARE | [address] | [address] | | | TESTS | | | | + + + + + ARTERIAL BLOOD GAS, POC (03/27/2015 2:16 PM PDT) + + + + + + | Component | Value | Ref Range | Performed | Pathologist | | | | | At | Signature | + + + + + + | PH | 7.36 (L) | 7.37 - 7.44 | [facility] | | | ARTERIAL, | | | [facility] | | | POC | | | [facility] POINT | | | | | | OF CARE | | | | | | TESTS | | + + + + + + | PO2 | 170 (H) | 72 - 104 mmHg | [facility] | | | ARTERIAL, | | | [facility] | | | POC | | | [facility] POINT | | | | | | OF CARE | | | | | | TESTS | | + + + + + + | PCO2 | 47 (H) | 32 - 43 mmHg | [facility] | | | ARTERIAL, | | | [facility] | | | POC | | | [facility] POINT | | | | | | OF CARE | | | | | | TESTS | | + + + + + + | O2 SAT | 99.6 (H) | 92.0 - 98.0 % | [facility] | | | ARTERIAL, | | | [facility] | | | POC | | | [facility] | | | | | | OF CARE | | | | | | TESTS | | + + + + + + | HCO3 | 26.2 | 21 - 28 mmol/L | [facility] | | | ARTERIAL, | | | [facility] | | | POC | | | [facility] | | | | | | OF CARE | | | | | | TESTS | | + + + + + + | BASE EXCESS | 0.7 | | [facility] | | | ARTERIAL, | | | [facility] | | | POC | | | [facility] | | | | | | OF CARE | | | | | | TESTS | | + + + + + + + + | Specimen | + + | | + + + + + + + | Performing | Address | City/State/Zipcode | Phone Number | | Organization | | | | + + + + + | [facility] | [address] | [place], [place] | | | [facility]ARE | [address] | [address] | | | TESTS | | | | + + + + + LACTATE (ART), POC (03/27/2015 12:40 PM PDT) + +-------+ + + + | Component | Value | Ref Range | Performed | Pathologist | | | | | At | Signature | + +-------+ + + + | LACTATE | 1.1 | 0.5 - 1.6 | [facility] | | | ARTERIAL, | | mmol/L | [facility] | | | POC | | | [facility] | | | | | | OF CARE | | | | | | TESTS | | + +-------+ + + + + + | Specimen | + + | | + + + + + + + | Performing | Address | City/State/Zipcode | Phone Number | | Organization | | | | + + + + + | [facility] | [address] | [place], [place] | | | [facility]ARE | [address] | [address] | | | TESTS | | | | + + + + + SODIUM, POC (03/27/2015 12:40 PM PDT) + +-------+ + + + | Component | Value | Ref Range | Performed | Pathologist | | | | | At | Signature | + +-------+ + + + | SODIUM, POC | 139 | 134 - 143 | [facility] | | | | | mmol/L | [facility] | | | | | | [facility] | | | | | | OF CARE | | | | | | TESTS | | + +-------+ + + + + + | Specimen | + + | | + + + + + + + | Performing | Address | City/State/Zipcode | Phone Number | | Organization | | | | + + + + + | [facility] | [address] | [place], [place] | | | [facility] | [address] | [address] | | | TESTS | | | | + + + + + POTASSIUM, POC (03/27/2015 12:40 PM PDT) + +-------+ + + + | Component | Value | Ref Range | Performed | Pathologist | | | | | At | Signature | + +-------+ + + + | POTASSIUM, | 4.5 | 3.4 - 5.0 | [facility] | | | POC | | mmol/L | [facility] | | | | | | [facility] | | | | | | OF CARE | | | | | | TESTS | | + +-------+ + + + + + | Specimen | + + | | + + + + + + + | Performing | Address | City/State/Zipcode | Phone Number | | Organization | | | | + + + + + | [facility] | [address] | [place], [place] | | | [facility] CARE | [address] | [address] | | | TESTS | | | | + + + + + GLUCOSE, POC (03/27/2015 12:40 PM PDT) + +---------+ + + + | Component | Value | Ref Range | Performed | Pathologist | | | | | At | Signature | + +---------+ + + + | GLUCOSE, | 178 (H) | 60 - 99 mg/dL | [facility] | | | POC | | | [facility] | | | | | | [facility] | | | | | | OF CARE | | | | | | TESTS | | + +---------+ + + + + + | Specimen | + + | | + + + + + + + | Performing | Address | City/State/Zipcode | Phone Number | | Organization | | | | + + + + + | [facility] | [address] | [place], [place] | | | [facility] | [address] | [address] | | | TESTS | | | | + + + + + DONN PENA (03/27/2015 12:40 PM PDT) + +-------+ + + + | Component | Value | Ref Range | Performed | Pathologist | | | | | At | Signature | + +-------+ + + + | CHLORIDE, | 108 | 97 - 108 mmol/L | [facility] | | | POC | | | [facility] | | | | | | [facility] | | | | | | OF CARE | | | | | | TESTS | | + +-------+ + + + + + | Specimen | + + | | + + + + + + + | Performing | Address | City/State/Zipcode | Phone Number | | Organization | | | | + + + + + | [facility] | [address] | [place], [place] | | | [facility] | [address] | [address] | | | TESTS | | | | + + + + + FELICIA IONIZED CA, POC (03/27/2015 12:40 PM PDT) + +-------+ + + + | Component | Value | Ref Range | Performed | Pathologist | | | | | At | Signature | + +-------+ + + + | FELICIA | 1.32 | 1.14 - 1.32 | [facility] | | | IONIZED CA, | | mmol/L | [facility] | | | POC | | | [facility] | | | | | | OF CARE | | | | | | TESTS | | + +-------+ + + + + + | Specimen | + + | | + + + + + + + | Performing | Address | City/State/Zipcode | Phone Number | | Organization | | | | + + + + + | [facility] | [address] | [place], [place] | | | [facility] | [facility] | [address] | | | TESTS | | | | + + + + + HEMOGLOBIN-COOX, POC (03/27/2015 12:40 PM PDT) + + + + + + | Component | Value | Ref Range | Performed | Pathologist | | | | | At | Signature | + + + + + + | TOTAL | 13.2 (L) | 13.5 - 17.5 | [facility] - | | | HEMOGLOBIN, | | g/dL | [facility] | | | POC | | | [facility] | | | | | | OF CARE | | | | | | TESTS | | + + + + + + | OXYHEMOGLOB | 98.6 | 94.0 - 100 % | [facility] | | | IN, POC | | | [facility] | | | | | | [facility] POINT | | | | | | OF CARE | | | | | | TESTS | | + + + + + + | DEOXYHEMOGL | 0.4 | | [facility] | | | OBIN, POC | | | [facility] | | | | | | [facility] POINT | | | | | | OF CARE | | | | | | TESTS | | + + + + + + | HEMATOCRIT, | 40.3 (L) | 41.0 - 53.0 % | [facility] - | | | POC | | | [facility] | | | | | | [facility] POINT | | | | | | OF CARE | | | | | | TESTS | | + + + + + + + + | Specimen | + + | | + + + + + + + | Performing | Address | City/State/Zipcode | Phone Number | | Organization | | | | + + + + + | [facility] | [address] | [place], [place] | | | [facility] | [address] | [address] | | | TESTS | | | | + + + + + ARTERIAL BLOOD GAS, POC (03/27/2015 12:40 PM PDT) + + + + + + | Component | Value | Ref Range | Performed | Pathologist | | | | | At | Signature | + + + + + + | PH | 7.33 (L) | 7.37 - 7.44 | [facility] - | | | ARTERIAL, | | | [facility] | | | POC | | | [facility] | | | | | | OF CARE | | | | | | TESTS | | + + + + + + | PO2 | 180 (H) | 72 - 104 mmHg | [facility] - | | | ARTERIAL, | | | [facility] | | | POC | | | H[facility]INT | | | | | | OF CARE | | | | | | TESTS | | + + + + + + | PCO2 | 49 (H) | 32 - 43 mmHg | [facility] - | | | ARTERIAL, | | | [facility] | | | POC | | | [facility] | | | | | | OF CARE | | | | | | TESTS | | + + + + + + | O2 SAT | 99.6 (H) | 92.0 - 98.0 % | [facility] - | | | ARTERIAL, | | | [facility] | | | POC | | | [facility] | | | | | | OF CARE | | | | | | TESTS | | + + + + + + | HCO3 | 25.8 | 21 - 28 mmol/L | [facility] - | | | ARTERIAL, | | | [facility] | | | POC | | | [facility] | | | | | | OF CARE | | | | | | TESTS | | + + + + + + | BASE EXCESS | -0.1 | | [facility] - | | | [facility], | | | [facility] | | | POC | | | [facility] | | | | | | OF CARE | | | | | | TESTS | | + + + + + + + + | Specimen | + + | | + + + + + + + | Performing | Address | City/State/Zipcode | Phone Number | | Organization | | | | + + + + + | [facility] | [address] | [place], [place] | | | [facility] | [address] | [address] | | | TESTS | | | | + + + + + LACTATE (ART), POC (03/27/2015 11:31 AM PDT) + +-------+ + + + | Component | Value | Ref Range | Performed | Pathologist | | | | | At | Signature | + +-------+ + + + | LACTATE | 0.9 | 0.5 - 1.6 | [facility] - | | | ARTERIAL, | | mmol/L | [facility] | | | POC | | | YG, POINT | | | | | | OF CARE | | | | | | TESTS | | + +-------+ + + + + + | Specimen | + + | | + + + + + + + | Performing | Address | City/State/Zipcode | Phone Number | | Organization | | | | + + + + + | [facility] | [address] | [place], [place] | | | [facility] | [address] | [address] | | | TESTS | | | | + + + + + SODIUM, POC (03/27/2015 11:31 AM PDT) + +-------+ + + + | Component | Value | Ref Range | Performed | Pathologist | | | | | At | Signature | + +-------+ + + + | SODIUM, POC | 137 | 134 - 143 | [facility] | | | | | mmol/L | [facility] | | | | | | [facility] | | | | | | OF CARE | | | | | | TESTS | | + +-------+ + + + + + | Specimen | + + | | + + + + + + + | Performing | Address | City/State/Zipcode | Phone Number | | Organization | | | | + + + + + | [facility] | [address] | [place], [place] | | | [facility] | [facility] | [address] | | | TESTS | | | | + + + + + POTASSIUM, POC (03/27/2015 11:31 AM PDT) + +-------+ + + + | Component | Value | Ref Range | Performed | Pathologist | | | | | At | Signature | + +-------+ + + + | POTASSIUM, | 4.8 | 3.4 - 5.0 | [facility] - | | | POC | | mmol/L | [facility] | | | | | | [facility] | | | | | | OF CARE | | | | | | TESTS | | + +-------+ + + + + + | Specimen | + + | | + + + + + + + | Performing | Address | City/State/Zipcode | Phone Number | | Organization | | | | + + + + + | [facility] | [address] | [place], [place] | | | [facility] | [address] | [address] | | | TESTS | | | | + + + + + GLUCOSE, POC (03/27/2015 11:31 AM PDT) + +---------+ + + + | Component | Value | Ref Range | Performed | Pathologist | | | | | At | Signature | + +---------+ + + + | GLUCOSE, | 186 (H) | 60 - 99 mg/dL | [facility] | | | POC | | | [facility] | | | | | | [facility] | | | | | | OF CARE | | | | | | TESTS | | + +---------+ + + + + + | Specimen | + + | | + + + + + + + | Performing | Address | City/State/Zipcode | Phone Number | | Organization | | | | + + + + + | [facility] | [address] | [place], [place] | | | [facility] | [facility] | [address] | | | TESTS | | | | + + + + + CHLORIDE, POC (03/27/2015 11:31 AM PDT) + +-------+ + + + | Component | Value | Ref Range | Performed | Pathologist | | | | | At | Signature | + +-------+ + + + | CHLORIDE, | 106 | 97 - 108 mmol/L | [facility] - | | | POC | | | [facility] | | | | | | [facility] | | | | | | OF CARE | | | | | | TESTS | | + +-------+ + + + + + | Specimen | + + | | + + + + + + + | Performing | Address | City/State/Zipcode | Phone Number | | Organization | | | | + + + + + | [facility] | [address] | [place], [place] | | | [facility] CARE | [address] | [address] | | | TESTS | | | | + + + + + FELICIA IONIZED CA, POC (03/27/2015 11:31 AM PDT) + +-------+ + + + | Component | Value | Ref Range | Performed | Pathologist | | | | | At | Signature | + +-------+ + + + | FELICIA | 1.32 | 1.14 - 1.32 | [facility] - | | | IONIZED [place], | | mmol/L | [facility] | | | POC | | | [facility] | | | | | | OF CARE | | | | | | TESTS | | + +-------+ + + + + + | Specimen | + + | | + + + + + + + | Performing | Address | City/State/Zipcode | Phone Number | | Organization | | | | + + + + + | [facility] | [address] | [place], [place] | | | [facility] | [facility] | [address] | | | TESTS | | | | + + + + + HEMOGLOBIN-DONN POLLOCK (03/27/2015 11:31 AM PDT) + + + + + + | Component | Value | Ref Range | Performed | Pathologist | | | | | At | Signature | + + + + + + | TOTAL | 13.1 (L) | 13.5 - 17.5 | [facility] - | | | HEMOGLOBIN, | | g/dL | [facility] | | | POC | | | [facility] | | | | | | OF CARE | | | | | | TESTS | | + + + + + + | OXYHEMOGLOB | 97.3 | 94.0 - 100 % | [facility] - | | | IN, POC | | | [facility] | | | | | | [facility] | | | | | | OF CARE | | | | | | TESTS | | + + + + + + | CARBOXYHEMO | 1.0 | 0.0 - 1.5 % | [facility] - | | | GLOBIN, POC | | | [facility] | | | | | | [facility] | | | | | | OF CARE | | | | | | TESTS | | + + + + + + | DEOXYHEMOGL | 1.5 | | [facility] - | | | OBIN, POC | | | [facility] | | | | | | YG, POINT | | | | | | OF CARE | | | | | | TESTS | | + + + + + + | HEMATOCRIT, | 40.2 (L) | 41.0 - 53.0 % | [facility] - | | | POC | | | [facility] | | | | | | [facility] | | | | | | OF CARE | | | | | | TESTS | | + + + + + + + + | Specimen | + + | | + + + + + + + | Performing | Address | City/State/Zipcode | Phone Number | | Organization | | | | + + + + + | [facility] | [address] | [place], [place] | | | [facility] | [facility] | [address] | | | TESTS | | | | + + + + + ARTERIAL BLOOD GAS, POC (03/27/2015 11:31 AM PDT) + + + + + + | Component | Value | Ref Range | Performed | Pathologist | | | | | At | Signature | + + + + + + | PH | 7.34 (L) | 7.37 - 7.44 | [facility] - | | | ARTERIAL, | | | [facility] | | | POC | | | [facility] | | | | | | OF CARE | | | | | | TESTS | | + + + + + + | PO2 | 117 (H) | 72 - 104 mmHg | [facility] - | | | ARTERIAL, | | | [facility] | | | POC | | | [facility] | | | | | | OF CARE | | | | | | TESTS | | + + + + + + | PCO2 | 49 (H) | 32 - 43 mmHg | [facility] - | | | ARTERIAL, | | | [facility] | | | POC | | | [facility] | | | | | | OF CARE | | | | | | TESTS | | + + + + + + | O2 SAT | 98.5 (H) | 92.0 - 98.0 % | [facility] - | | | ARTERIAL, | | | [facility] | | | POC | | | Y[facility] POINT | | | | | | OF CARE | | | | | | TESTS | | + + + + + + | HCO3 | 26.2 | 21 - 28 mmol/L | [facility] - | | | ARTERIAL, | | | [facility] | | | POC | | | YG POINT | | | | | | OF CARE | | | | | | TESTS | | + + + + + + | BASE EXCESS | 0.4 | | [facility] - | | | ARTERIAL, | | | [facility] | | | POC | | | [facility] | | | | | | OF CARE | | | | | | TESTS | | + + + + + + + + | Specimen | + + | | + + + + + + + | Performing | Address | City/State/Zipcode | Phone Number | | Organization | | | | + + + + + | [facility] | [address] | [place], [place] | | | [facility] OF CARE | [facility] | [address] | | | TESTS | | | | + + + + + LOUISE (ART)DONN (03/27/2015 9:24 AM PDT) + +-------+ + + + | Component | Value | Ref Range | Performed | Pathologist | | | | | At | Signature | + +-------+ + + + | LACTATE | 0.8 | 0.5 - 1.6 | [facility] - | | | ARTERIAL, | | mmol/L | [facility] | | | POC | | | [facility] | | | | | | OF CARE | | | | | | TESTS | | + +-------+ + + + + + | Specimen | + + | | + + + + + + + | Performing | Address | City/State/Zipcode | Phone Number | | Organization | | | | + + + + + | [facility] | [address] | [place], [place] | | | [facility] CARE | [facility] | [address] | | | TESTS | | | | + + + + + SODIUM, POC (03/27/2015 9:24 AM PDT) + +-------+ + + + | Component | Value | Ref Range | Performed | Pathologist | | | | | At | Signature | + +-------+ + + + | SODIUM, POC | 137 | 134 - 143 | [facility] | | | | | mmol/L | [facility] | | | | | | [facility] | | | | | | OF CARE | | | | | | TESTS | | + +-------+ + + + + + | Specimen | + + | | + + + + + + + | Performing | Address | City/State/Zipcode | Phone Number | | Organization | | | | + + + + + | [facility] | [address] | [place], [place] | | | [facility] | [facility] | [address] | | | TESTS | | | | + + + + + POTASSIUM, POC (03/27/2015 9:24 AM PDT) + +-------+ + + + | Component | Value | Ref Range | Performed | Pathologist | | | | | At | Signature | + +-------+ + + + | POTASSIUM, | 4.6 | 3.4 - 5.0 | [facility] - | | | POC | | mmol/L | [facility] | | | | | | [facility] | | | | | | OF CARE | | | | | | TESTS | | + +-------+ + + + + + | Specimen | + + | | + + + + + + + | Performing | Address | City/State/Zipcode | Phone Number | | Organization | | | | + + + + + | [facility] | [address] | [place], [place] | | | [facility] CARE | [address] | [address] | | | TESTS | | | | + + + + + GLUCOSE, POC (03/27/2015 9:24 AM PDT) + +---------+ + + + | Component | Value | Ref Range | Performed | Pathologist | | | | | At | Signature | + +---------+ + + + | GLUCOSE, | 129 (H) | 60 - 99 mg/dL | [facility] - | | | POC | | | [facility] | | | | | | [facility] | | | | | | OF CARE | | | | | | TESTS | | + +---------+ + + + + + | Specimen | + + | | + + + + + + + | Performing | Address | City/State/Zipcode | Phone Number | | Organization | | | | + + + + + | [facility] | [address] | [place], [place] | | | [facility] CARE | [facility] | [address] | | | TESTS | | | | + + + + + CHLORIDE, POC (03/27/2015 9:24 AM PDT) + +-------+ + + + | Component | Value | Ref Range | Performed | Pathologist | | | | | At | Signature | + +-------+ + + + | CHLORIDE, | 104 | 97 - 108 mmol/L | [facility] - | | | POC | | | [facility] | | | | | | [facility] | | | | | | OF CARE | | | | | | TESTS | | + +-------+ + + + + + | Specimen | + + | | + + + + + + + | Performing | Address | City/State/Zipcode | Phone Number | | Organization | | | | + + + + + | [facility] | [address] | [place], [place] | | | [facility] CARE | [address] | [address] | | | TESTS | | | | + + + + + FELICIA IONIZED CA, POC (03/27/2015 9:24 AM PDT) + + + + + + | Component | Value | Ref Range | Performed | Pathologist | | | | | At | Signature | + + + + + + | FELICIA | 1.37 (H) | 1.14 - 1.32 | [facility] - | | | IONIZED CA, | | mmol/L | [facility] | | | POC | | | [facility] POINT | | | | | | OF CARE | | | | | | TESTS | | + + + + + + + + | Specimen | + + | | + + + + + + + | Performing | Address | City/State/Zipcode | Phone Number | | Organization | | | | + + + + + | [facility] | [address] | [place], [place] | | | [facility] OF [facility] | [address] | [address] | | | TESTS | | | | + + + + + JOSUÉ-DONN POLLOCK (03/27/2015 9:24 AM PDT) + + + + + + | Component | Value | Ref Range | Performed | Pathologist | | | | | At | Signature | + + + + + + | TOTAL | 12.5 (L) | 13.5 - 17.5 | [facility] - | | | HEMOGLOBIN, | | g/dL | [facility] | | | POC | | | [facility] | | | | | | OF CARE | | | | | | TESTS | | + + + + + + | OXYHEMOGLOB | 97.7 | 94.0 - 100 % | [facility] - | | | IN, POC | | | [facility] | | | | | | [facility] | | | | | | OF CARE | | | | | | TESTS | | + + + + + + | DEOXYHEMOGL | 1.0 | | [facility] - | | | OBIN, POC | | | [facility] | | | | | | [facility] | | | | | | OF CARE | | | | | | TESTS | | + + + + + + | HEMATOCRIT, | 38.4 (L) | 41.0 - 53.0 % | [facility] - | | | POC | | | [facility] | | | | | | [facility] | | | | | | OF CARE | | | | | | TESTS | | + + + + + + + + | Specimen | + + | | + + + + + + + | Performing | Address | City/State/Zipcode | Phone Number | | Organization | | | | + + + + + | GONSAL[facility] HERNAN[facility] | [address] | [place], [place] | | | [facility] | [facility] | [address] | | | TESTS | | | | + + + + + ARTERIAL BLOOD GAS, POC (03/27/2015 9:24 AM PDT) + + + + + + | Component | Value | Ref Range | Performed | Pathologist | | | | | At | Signature | + + + + + + | PH | 7.34 (L) | 7.37 - 7.44 | [facility] - | | | ARTERIAL, | | | [facility] | | | POC | | | [place] [place] | | | | | | OF CARE | | | | | | TESTS | | + + + + + + | PO2 | 136 (H) | 72 - 104 mmHg | [facility] - | | | ARTERIAL, | | | [facility] | | | POC | | | [place] [place] | | | | | | OF CARE | | | | | | TESTS | | + + + + + + | PCO2 | 53 (H) | 32 - 43 mmHg | [facility] - | | | ARTERIAL, | | | [facility] | | | POC | | | [place] [place] | | | | | | OF CARE | | | | | | TESTS | | + + + + + + | O2 SAT | 99.0 (H) | 92.0 - 98.0 % | [facility] - | | | ARTERIAL, | | | [facility] | | | POC | | | YG, POINT | | | | | | OF CARE | | | | | | TESTS | | + + + + + + | HCO3 | 28.3 (H) | 21 - 28 mmol/L | [facility] - | | | ARTERIAL, | | | [facility] | | | POC | | | [place] [place] | | | | | | OF CARE | | | | | | TESTS | | + + + + + + | BASE EXCESS | 2.6 | | [facility] - | | | ARTERIAL, | | | [facility] | | | POC | | | [place] [place] | | | | | | OF CARE | | | | | | TESTS | | + + + + + + + + | Specimen | + + | | + + + + + + + | Performing | Address | City/State/Zipcode | Phone Number | | Organization | | | | + + + + + | [facility]ONSAL[facility] HERNANDE[facility] | [address] | [place], [place] | | | [facility] | [address] | [address] | | | TESTS | | | | + + + + + SURGICAL PATHOLOGY (03/27/2015) + + + + + + | Component | Value | Ref Range | Performed | Pathologist | | | | | At | Signature | + + + + + + | SURGICAL | SOURCE OF SPECIMEN:A | | [facility] | | | PATHOLOGY | Distal margin FSSOURCE | | DEPARTMENT | | | | OF SPECIMEN:B Level 9 | | OF | | | | lymph nodesSOURCE OF | | PATHOLOGY | | | | SPECIMEN:C Proximal | | | | | | margin FSSOURCE OF | | | | | | SPECIMEN:D Esophagus and | | | | | | stomachSOURCE OF | | | | | | SPECIMEN:E Proximal | | | | | | stomach Final | | | | | | Pathologic Diagnosis:A: | | | | | | Distal margin, frozen | | | | | | section biopsy: | | | | | | - Segment of | | | | | | stomach with no | | | | | | diagnostic abnormality | | | | | | - Negative for | | | | | | dysplasia B: | | | | | | Level 9 lymph nodes, | | | | | | dissection: | | | | | | - Fibroadipose | | | | | | connective tissue with | | | | | | no diagnostic | | | | | | abnormality - | | | | | | Negative for malignancy | | | | | | C: Proximal | | | | | | margin, frozen section | | | | | | biopsy: - | | | | | | Segment of esophagus | | | | | | with squamocolumnar | | | | | | junctional type mucosa | | | | | | - Negative for | | | | | | dysplasia D: | | | | | | Esophagus and stomach, | | | | | | partial esophagectomy | | | | | | and gastrectomy: - | | | | | | Extensive | | | | | | high-grade dysplasia | | | | | | with accompanying | | | | | | low-grade dysplasiaand | | | | | | intestinal metaplasia | | | | | | (spanning approx. 9-10 | | | | | | cm); negative for | | | | | | invasivecomponent- | | | | | | Specimen reviewed | | | | | | in-toto- Fourteen | | | | | | lymph nodes with no | | | | | | diagnostic abnormality | | | | | | (0/14)- Gastric and | | | | | | esophageal mucosal | | | | | | margins free of | | | | | | dysplasia | | | | | | E: Proximal | | | | | | stomach, segmental | | | | | | resection: | | | | | | - Segment of stomach | | | | | | with no diagnostic | | | | | | abnormality - | | | | | | Specimen reviewed | | | | | | in-toto - Negative | | | | | | for malignancy | | | | | | Case seen by:Zoë | | | | | | Brittany Hong/Surgical | | | | | | Pathology ResidentDavid | | | | | | Darcy Cook, | | | | | | M.D./PathologistT: | | | | | | 5:kelli | | | | | | Intraoperative | | | | | | Consult (Frozen | | | | | | Section) | | | | | | Diagnosis:Distal margin | | | | | | (specimen A): - | | | | | | Negative for malignancy | | | | | | Intraoperative | | | | | | Consult Diagnosis | | | | | | confirmed by: César | | | | | | Brittany Lazcano/Surgsuha | | | | | | l Pathology Resident and | | | | | | Rambo Swann, | | | | | | M.D./Pathologist | | | | | | Proximal margin | | | | | | (specimen C): - | | | | | | Negative for malignancy | | | | | | Intraoperative | | | | | | Consult Diagnosis | | | | | | confirmed by: Neda | | | | | | Pedro P.AAj | | | | | | Edel Morrell, | | | | | | M.D., Ph.D./Pathologist | | | | | | Clinical | | | | | | History:The patient is a | | | | | | 75-year-old male with | | | | | | esophageal cancer. | | | | | | Gross | | | | | | Description:Received are | | | | | | 5 specimens fresh in | | | | | | containers labeled with | | | | | | the patient'sname | | | | | | (initials RICHARD) and: | | | | | | A: Distal margin: | | | | | | Received is a piece of | | | | | | taylor-pink tissue | | | | | | measuring 0.6 cmin | | | | | | length x 1.2 cm in | | | | | | diameter. Both margins | | | | | | are received stapled | | | | | | with 1stapled margin | | | | | | containing a suture | | | | | | indicating new margin. | | | | | | The staple linesare | | | | | | removed and the new | | | | | | margin is inked blue, | | | | | | the old margin is | | | | | | inkedblack. The entire | | | | | | specimen is submitted | | | | | | for frozen section | | | | | | diagnosis. Thefrozen | | | | | | section residue is | | | | | | perpendicularly | | | | | | sectioned from old to | | | | | | new marginand entirely | | | | | | submitted. B: | | | | | | Level 9 lymph nodes: | | | | | | Received is a piece of | | | | | | yellow, fatty | | | | | | tissuemeasuring 2 x 2 x | | | | | | 0.8 cm. Two possible | | | | | | lymph nodes are found, | | | | | | each with adiameter of | | | | | | 0.4 cm. All possible | | | | | | lymph nodes and | | | | | | remaining fat | | | | | | aresubmitted. C: | | | | | | Proximal margin: | | | | | | Received is a piece of | | | | | | taylor-red tissue | | | | | | measuring 2 x 1x 0.7 cm, | | | | | | that is closed via a 2 | | | | | | cm staple line. The | | | | | | staple line isremoved | | | | | | and the entire specimen | | | | | | is submitted for frozen | | | | | | section diagnosisand | | | | | | resubmitted. D: | | | | | | Esophagus and | | | | | | stomach:Specimen: | | | | | | Partial | | | | | | esophagectomy and | | | | | | gastrectomyMeasurements: | | | | | | | | | | | | Overall: | | | | | | | | | | | | 19.5 x 15 x 3 | | | | | | cm | | | | | | | | | | | | Esophagus: | | | | | | | | | | | | 14.5 (L) x 2 (D) | | | | | | cm | | | | | | | | | | | | Stomach: | | | | | | 21 | | | | | | x 5 x 3 | | | | | | cmMargins: | | | | | | | | | | | | | | | | | | | | | | | | Proximal margin is | | | | | | receivedopened, distal | | | | | | margin is received | | | | | | | | | | | | stapledDescription: | | | | | | | | | | | | | | | | | | Received previously | | | | | | openedTumor: | | | | | | None grossly | | | | | | identifiedRemaining | | | | | | esophagus: Patchy | | | | | | but circumferential | | | | | | taylor-pink Cheema's | | | | | | typemucosa throughout | | | | | | the entire length of the | | | | | | esophagus and involving | | | | | | proximalmargin. There | | | | | | is a 2 x 0.1 cm area of | | | | | | scar at the distal | | | | | | esophagus nearthe GE | | | | | | junction consistent with | | | | | | prior EMR site and | | | | | | located 8.5 cm from | | | | | | theproximal margin. | | | | | | There is a second | | | | | | possible scar-like area | | | | | | in midesophagus | | | | | | measuring 0.4 x 0.3 cm | | | | | | and located 5.5 cm from | | | | | | the proximalmargin. | | | | | | The area of Cheema's | | | | | | type mucosa is sampled | | | | | | for ECRD.Remaining | | | | | | stomach: | | | | | | Regularly | | | | | | taylor-pink, folded mucosa | | | | | | with nolesionsLymph | | | | | | nodes: | | | | | | Proximal esophagus: | | | | | | No fat | | | | | | received | | | | | | Mid esophagus: | | | | | | No lymph nodes | | | | | | grossly identifiedDistal | | | | | | esophagus: 5 | | | | | | possible lymph nodes | | | | | | versus 5 | | | | | | tissue | | | | | | Proximal stomach: | | | | | | 16 possible lymph | | | | | | nodes | | | | | | Distal stomach: 7 | | | | | | possible lymph | | | | | | nodesSubmitted: | | | | | | | | | | | | | | | | | | Medical Language Specialist | | | | | | E: Proximal stomach: | | | | | | Received is an | | | | | | unoriented segment of | | | | | | stomach,measuring 4 x | | | | | | 3.5 x 2.5 cm. The | | | | | | specimen is triangular | | | | | | shaped with 2 | | | | | | sidescontaining staple | | | | | | lines, 1 with a length | | | | | | of 4.5 cm and the other | | | | | | with alength of 4 cm. | | | | | | The serosal surface is | | | | | | smooth, taylor-pink with 1 | | | | | | focal areaof bulging | | | | | | blood clot-type material | | | | | | with an area of 0.8 x | | | | | | 0.8 cm and isover-inked | | | | | | orange. The staple | | | | | | lines are removed, 1 | | | | | | side is inked black,the | | | | | | other is inked blue, and | | | | | | the specimen is opened | | | | | | revealing | | | | | | unremarkabletan-red, | | | | | | folded mucosa with no | | | | | | obvious lesions or | | | | | | abnormalities. | | | | | | Thespecimen is | | | | | | sequentially sectioned | | | | | | from blue inked mucosal | | | | | | margin to blackinked | | | | | | mucosal margin and is | | | | | | sequentially submitted. | | | | | | Cassette Index:A: | | | | | | Distal margin:A1, | | | | | | frozen section residueB: | | | | | | Level 9 lymph | | | | | | nodes:B1, two possible | | | | | | lymph nodesB2, remaining | | | | | | fatC: Proximal | | | | | | margin:C1, frozen | | | | | | section residueD: | | | | | | Esophagus and | | | | | | stomach:D1, proximal | | | | | | esophagus margin en | | | | | | faceD2-4, sequential | | | | | | segments of esophagus at | | | | | | GE junction, including | | | | | | scarD5-8, sequential | | | | | | sections of entire mid | | | | | | esophagus, including | | | | | | possible scarD9-11, | | | | | | sequential sections of | | | | | | proximal | | | | | | [id number], | | | | | | sequential sections | | | | | | adjacent to proximal | | | | | | esophageal [id number], | | | | | | insurance sales representative | | | | | | perpendicular section of | | | | | | distal gastric | | | | | | mudvicR19, entire | | | | | | adipose tissue from mid | | | | | | esophagus, entire | | | | | | fatD18, distal | | | | | | esophagus, five possible | | | | | | lymph [id number], | | | | | | distal esophagus, | | | | | | remaining fatD21, five | | | | | | possible lymph hohsiT28, | | | | | | five possible lymph | | | | | | [id number], five possible | | | | | | lymph [id number], one | | | | | | possible lymph nodeD25, | | | | | | distal stomach, four | | | | | | possible lymph evozrI77, | | | | | | distal stomach, two | | | | | | possible lymph nodesE: | | | | | | Proximal | | | | | | stomach:E1-11, entire | | | | | | specimen sequentially | | | | | | submitted E4, | | | | | | bisected E6, | | | | | | bisected E7, | | | | | | bisectedBB/kelli My | | | | | | electronic signature | | | | | | indicates that I have | | | | | | personally reviewed | | | | | | alldiagnostic slides, | | | | | | the gross and/or | | | | | | microscopic portion of | | | | | | thisreport and | | | | | | formulated the final | | | | | | diagnosis. | | | | | | Rendering Diagnostician: | | | | | | Justo Cook | | | | | | MAshvinPathologistElectroni | | | | | | bridget Signed 04/01/2015 | | | | | | 5:10PM | | | | + + + + + + + + | Specimen | + + | | + + + + + + + | Performing | Address | City/State/Zipcode | Phone Number | | Organization | | | | + + + + + | [facility] | [address] | [place] [address] | | | PATHOLOGY | [address] | | | + + + + + CARDIOLOGY (03/27/2015 12:00 AM PDT) + + + | Narrative | Performed At | + + + | | | + + + CARDIOLOGY (03/27/2015 12:00 AM PDT) + + + | Narrative | Performed At | + + + | | | + + + documented in this encounter Visit Diagnoses + + | Diagnosis | + + | Esophageal cancer (HCC) - Primary Malignant neoplasm of esophagus, unspecified site | + + | Anastomotic leak following esophagectomy Other digestive system complications | + + | GERD (gastroesophageal reflux disease) Esophageal reflux | + + | HLD (hyperlipidemia) Other and unspecified hyperlipidemia | + + | Hypertension Unspecified essential hypertension | + + | Cheema's esophagus | + + | Back pain, chronic Backache, unspecified | + + | Knee pain, chronic | + + | hx [place] (myocardial infarction) Acute myocardial infarction, unspecified site, episode | | of care unspecified | + + | Hearing loss | + + | 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, unspecified site | + + | Unintentional weight loss Loss of weight | + + | Dysphagia | + + documented in this encounter Administered Medications + +--------+ +--------+------+------+ | Medication Order | MAR | Action | Dose | Rate | Site | | | Action | Date | | | | + +--------+ +--------+------+------+ | acetaminophen (TYLENOL) oral | Given | 04/07/20 | 650 mg | | | | suspension 650 mg 650 mg, | | 15 9:12 | | | | | feeding tube, EVERY 4 HOURS, | | AM PDT | | | | | First dose (after last | | | | | | | modification) on [facility] 04/03/15 at | | | | | | | 1200, Until Discontinued | | | | | | + +--------+ +--------+------+------+ +-------+ +--------+---+---+ | Given | 04/07/20 | 650 mg | | | | | 15 5:04 | | | | | | AM PDT | | | | +-------+ +--------+---+---+ | Given | 04/07/20 | 650 mg | | | | | 15 1:19 | | | | | | AM PDT | | | | +-------+ +--------+---+---+ +---+---+ | | | +---+---+ + +-------+ +--------+---+---+ | amiodarone (CORDARONE) tablet | Given | 03/29/20 | 400 mg | | | | 400 mg 400 mg, feeding tube, | | 15 8:48 | | | | | TWICE DAILY, First dose on Tue | | AM PDT | | | | | 03/28/15 at 1000, Until | | | | | | | Discontinued | | | | | | + +-------+ +--------+---+---+ +-------+ +--------+---+---+ | Given | 03/28/20 | 400 mg | | | | | 15 8:08 | | | | | | PM PDT | | | | +-------+ +--------+---+---+ | Given | 03/28/20 | 400 mg | | | | | 15 11:06 | | | | | | AM PDT | | | | +-------+ +--------+---+---+ +---+---+ | | | +---+---+ + +-------+ +--------+---+---+ | amiodarone (CORDARONE) tablet | Given | 04/02/20 | 400 mg | | | | 400 mg 400 mg, feeding tube, | | 15 9:32 | | | | | THREE TIMES DAILY, 12 doses, | | AM PDT | | | | | First dose (after last | | | | | | | modification) on Tue03/29/15 at | | | | | | | 1600, Last dose on Tue04/02/15 at | | | | | | | 0900 | | | | | | + +-------+ +--------+---+---+ +-------+ +--------+---+---+ | Given | 04/01/20 | 400 mg | | | | | 15 11:14 | | | | | | PM PDT | | | | +-------+ +--------+---+---+ | Given | 04/01/20 | 400 mg | | | | | 15 4:07 | | | | | | PM PDT | | | | +-------+ +--------+---+---+ +---+---+ | | | +---+---+ + +-------+ +--------+---+---+ | amoxicillin (AMOXIL) oral | Given | 04/07/20 | 500 mg | | | | suspension 500 mg 500 mg, | | 15 9:12 | | | | | feeding tube, THREE TIMES DAILY, | | AM PDT | | | | | First dose (after last | | | | | | | modification) on 04/05/15 at | | | | | | | 1600, Until Discontinued | | | | | | + +-------+ +--------+---+---+ +-------+ +--------+---+---+ | Given | 04/06/20 | 500 mg | | | | | 15 8:46 | | | | | | PM PDT | | | | +-------+ +--------+---+---+ | Given | 04/06/20 | 500 mg | | | | | 15 4:22 | | | | | | PM PDT | | | | +-------+ +--------+---+---+ +---+---+ | | | +---+---+ + +-------+ +-------+---+---+ | aspirin chewable tablet 81 mg | Given | 04/01/20 | 81 mg | | | | 81 mg, feeding tube, DAILY, First | | 15 9:32 | | | | | dose on 03/30/15 at 1115, | | AM PDT | | | | | Until Discontinued | | | | | | + +-------+ +-------+---+---+ +-------+ +-------+---+---+ | Given | 03/31/20 | 81 mg | | | | | 15 8:41 | | | | | | AM PDT | | | | +-------+ +-------+---+---+ | Given | 03/30/20 | 81 mg | | | | | 15 11:33 | | | | | | AM PDT | | | | +-------+ +-------+---+---+ +---+---+ | | | +---+---+ + +-------+ +-------+---+---+ | aspirin chewable tablet 81 mg | Given | 04/07/20 | 81 mg | | | | 81 mg, oral, DAILY, First dose on | | 15 9:12 | | | | | 04/04/15 at 0945, Until | | AM PDT | | | | | Discontinued | | | | | | + +-------+ +-------+---+---+ +-------+ +-------+---+---+ | Given | 04/06/20 | 81 mg | | | | | 15 8:43 | | | | | | AM PDT | | | | +-------+ +-------+---+---+ | Given | 04/05/20 | 81 mg | | | | | 15 10:26 | | | | | | AM PDT | | | | +-------+ +-------+---+---+ +---+---+ | | | +---+---+ + +-------+ +-------+---+---+ | atorvastatin (LIPITOR) tablet | Given | 04/07/20 | 80 mg | | | | 80 mg 80 mg, feeding tube, | | 15 9:12 | | | | | DAILY, First dose on Tue03/28/15 | | AM PDT | | | | | at 1000, Until Discontinued | | | | | | + +-------+ +-------+---+---+ +-------+ +-------+---+---+ | Given | 04/06/20 | 80 mg | | | | | 15 8:43 | | | | | | AM PDT | | | | +-------+ +-------+---+---+ | Given | 04/05/20 | 80 mg | | | | | 15 10:26 | | | | | | AM PDT | | | | +-------+ +-------+---+---+ +---+---+ | | | +---+---+ + +-------+ +-------+---+---+ | bisacodyl (DULCOLAX) | Given | 03/30/20 | 10 mg | | | | suppository 10 mg 10 mg, rectal, | | 15 11:33 | | | | | ONCE, 1 dose, 03/30/15 at | | AM PDT | | | | | 1145 | | | | | | + +-------+ +-------+---+---+ +---+---+ | | | +---+---+ + +-------+ +-------+---+---+ | bisacodyl (DULCOLAX) | Given | 04/03/20 | 10 mg | | | | suppository 10 mg 10 mg, rectal, | | 15 11:22 | | | | | DAILY, First dose (after last | | AM PDT | | | | | modification) on Tue04/01/15 at | | | | | | | 0930, Until Discontinued | | | | | | + +-------+ +-------+---+---+ +-------+ +-------+---+---+ | Given | 04/01/20 | 10 mg | | | | | 15 12:52 | | | | | | PM PDT | | | | +-------+ +-------+---+---+ +---+---+ | | | +---+---+ + + + +---+---------+---+ | bupivacaine (PF) 0.1 %, | Rate/Dos [...] | | | | + + + +---+---------+---+ + + +---------+---------+---+ | Rate/Dose Verify | [...] | | +---+---+ + +-------+ +-------+---+---+ | chlorhexidine (PERIDEX) | Given | 04/07/20 | 15 mL | | | | mouthwash 15 mL 15 mL, oral, | | 15 5:04 | | | | | EVERY 6 HOURS, First dose on [facility] | | AM PDT | | | | | 04/03/15 at 1600, Until | | | | | | | Discontinued | | | | | | + +-------+ +-------+---+---+ +-------+ +-------+---+---+ | Given | 04/06/20 | 15 mL | | | | | 15 8:45 | | | | | | PM PDT | | | | +-------+ +-------+---+---+ | Given | 04/06/20 | 15 mL | | | | | 15 4:22 | | | | | | PM PDT | | | | +-------+ +-------+---+---+ +---+---+ | | | +---+---+ + +-------+ +-------+---+---+ | docusate sodium liquid 50 mg | Given | 04/07/20 | 50 mg | | | | 50 mg, feeding tube, TWICE DAILY, | | 15 9:12 | | | | | First dose on 03/29/15 at | | AM PDT | | | | | 0900, Until Discontinued | | | | | | + +-------+ +-------+---+---+ +-------+ +-------+---+---+ | Given | 04/06/20 | 50 mg | | | | | 15 8:46 | | | | | | PM PDT | | | | +-------+ +-------+---+---+ | Given | 04/05/20 | 50 mg | | | | | 15 8:57 | | | | | | PM PDT | | | | +-------+ +-------+---+---+ +---+---+ | | | +---+---+ + +-------+ +-------+---+---+ | enoxaparin (LOVENOX) injection | Given | 03/31/20 | 40 mg | | | | 40 mg 40 mg, subcutaneous, EVERY | | 15 10:00 | | | | | EVENING, First dose on Fri | | PM PDT | | | | | 03/28/15 at 2100, Until | | | | | | | Discontinued | | | | | | + +-------+ +-------+---+---+ +-------+ +-------+---+---+ | Given | 03/30/20 | 40 mg | | | | | 15 8:21 | | | | | | PM PDT | | | | +-------+ +-------+---+---+ | Given | 03/29/20 | 40 mg | | | | | 15 9:22 | | | | | | PM PDT | | | | +-------+ +-------+---+---+ +---+---+ | | | +---+---+ + +-------+ +-------+---+---+ | enoxaparin (LOVENOX) injection | Given | 04/06/20 | 40 mg | | | | 40 mg 40 mg, subcutaneous, EVERY | | 15 8:46 | | | | | EVENING, First dose on Fri | | PM PDT | | | | | 04/04/15 at 2100, Until | | | | | | | Discontinued | | | | | | + +-------+ +-------+---+---+ +-------+ +-------+---+---+ | Given | 04/05/20 | 40 mg | | | | | 15 8:57 | | | | | | PM PDT | | | | +-------+ +-------+---+---+ | Given | 04/04/20 | 40 mg | | | | | 15 9:59 | | | | | | PM PDT | | | | +-------+ +-------+---+---+ +---+---+ | | | +---+---+ + +---------+ +-------+---+---+ | esomeprazole (NEXIUM) IV 40 mg | New Bag | 03/30/20 | 40 mg | | | | 40 mg, intravenous, DAILY, First | | 15 10:56 | | | | | dose on [facility] 03/27/15 at 1815, | | AM PDT | | | | | Until Discontinued | | | | | | + +---------+ +-------+---+---+ +---------+ +-------+---+---+ | New Bag | 03/29/20 | 40 mg | | | | | 15 8:47 | | | | | | AM PDT | | | | +---------+ +-------+---+---+ | New Bag | 03/28/20 | 40 mg | | | | | 15 8:57 | | | | | | AM PDT | | | | +---------+ +-------+---+---+ +---+---+ | | | +---+---+ + +---------+ +-------+---+---+ | esomeprazole (NEXIUM) IV 40 mg | New Bag | 03/31/20 | 40 mg | | | | 40 mg, intravenous, ONCE, 1 | | 15 9:42 | | | | | dose, 03/31/15 at 0930 | | AM PDT | | | | + +---------+ +-------+---+---+ +---+---+ | | | +---+---+ + +---------+ +--------+---+---+ | fluconazole IV 400 mg IN NaCl | New Bag | 04/06/20 | 400 mg | | | | (RTU) 400 mg, intravenous, EVERY | | 15 4:22 | | | | | 24 HOURS, First dose on Tue | | PM PDT | | | | | 04/02/15 at 1600, Until | | | | | | | Discontinued | | | | | | + +---------+ +--------+---+---+ +---------+ +--------+---+---+ | New Bag | 04/05/20 | 400 mg | | | | | 15 3:44 | | | | | | PM PDT | | | | +---------+ +--------+---+---+ | New Bag | 04/04/20 | 400 mg | | | | | 15 4:16 | | | | | | PM PDT | | | | +---------+ +--------+---+---+ +---+---+ | | | +---+---+ + +---------+ +-------+---+---+ | furosemide (LASIX) injection 20 | New Bag | 03/30/20 | 20 mg | | | | mg 20 mg, intravenous, ONCE, 1 | | 15 4:47 | | | | | payton, Annie 03/30/15 at 1615 | | PM PDT | | | | + +---------+ +-------+---+---+ +---+---+ | | | +---+---+ + +---------+ +-------+---+---+ | furosemide (LASIX) injection 20 | New Bag | 04/04/20 | 20 mg | | | | mg 20 mg, intravenous, ONCE, 1 | | 15 9:04 | | | | | dose, 04/04/15 at 0900 | | AM PDT | | | | + +---------+ +-------+---+---+ +---+---+ | | | +---+---+ + +-------+ +------+---+---+ | glucose chewable tablet 16 g | Given | 03/29/20 | 16 g | | | | 16 g, oral, NEEDED, Starting | | 15 6:48 | | | | | 03/28/15 at 0928, Until Mon | | PM PDT | | | | | 04/07/15 at 1927, hypoglycemia, | | | | | | | CBG less than 70 mg/dL | | | | | | + +-------+ +------+---+---+ +---+---+ | | | +---+---+ + +---------+ +-------+---+---+ | labetalol (TRANDATE) IV | New Bag | 03/28/20 | 10 mg | | | | injection 10-40 mg 10-40 mg, | | 15 2:30 | | | | | intravenous, NEEDED, Starting | | AM PDT | | | | | [facility] 03/27/15 at 1804, Until Fri | | | | | | | 04/04/15 at 0834, SBP/DBP not at | | | | | | | goal | | | | | | + +---------+ +-------+---+---+ +---+---+ | | | +---+---+ + + + + + +---+ | lactated ringers IV 100 mL/hr, | Rate/Dos | 03/30/20 | 50 mL/hr | 50 mL/hr | | | intravenous, CONTINUOUS, | e Change | 15 8:00 | | | | | Starting [facility] 03/27/15 at 1500, | | AM PDT | | | | | Until 03/30/15 at 1112 | | | | | | + + + + + +---+ +---------+ +-------+-------+---+ | New Bag | 03/30/20 | 100 | 100 | | | | 15 4:44 | mL/hr | mL/hr | | | | AM PDT | | | | +---------+ +-------+-------+---+ | New Bag | 03/29/20 | 100 | 100 | | | | 15 6:41 | mL/hr | mL/hr | | | | PM PDT | | | | +---------+ +-------+-------+---+ +---+---+ | | | +---+---+ + +---------+ + + +---+ | lactated ringers IV 50 mL/hr, | New Bag | 03/30/20 | 50 mL/hr | 50 mL/hr | | | intravenous, CONTINUOUS, Starting | | 15 1:29 | | | | | 03/30/15 at 1115, Until Mon | | PM PDT | | | | | 03/31/15 at 0643 | | | | | | + +---------+ + + +---+ +---------+ + + +---+ | New Bag | 03/30/20 | 50 mL/hr | 50 mL/hr | | | | 15 10:00 | | | | | | AM PDT | | | | +---------+ + + +---+ +---+---+ | | | +---+---+ + +---------+ + +-------+---+ | lactated ringers IV 1,000 mL, | New Bag | 04/02/20 | 1,000 mL | 999 | | | intravenous, ONCE, 1 dose, Wed | | 15 9:23 | | mL/hr | | | 04/02/15 at 0830 | | AM PDT | | | | + +---------+ + +-------+---+ +---+---+ | | | +---+---+ + + + +---------+---+---+ | lidocaine (LIDODERM) 5 %(700 | Applied | 04/03/20 | 2 | | | | mg/patch) patch 2 patch 2 patch, | Patch | 15 9:59 | patches | | | | transdermal, EVERY 24 HOURS, | | AM PDT | | | | | First dose on [facility] 04/03/15 at | | | | | | | 0930, Until Discontinued | | | | | | + + + +---------+---+---+ +---+---+ | | | +---+---+ + +---------+ +-----+---+---+ | magnesium sulfate in water IV | New Bag | 03/31/20 | 2 g | | | | (RTU) 2 g 2 g, intravenous, | | 15 10:34 | | | | | ONCE, 1 dose, 03/31/15 at 0900 | | AM PDT | | | | + +---------+ +-----+---+---+ +---+---+ | | | +---+---+ + +---------+ +-----+---+---+ | magnesium sulfate in water IV | New Bag | 04/02/20 | 2 g | | | | (RTU) 2 g 2 g, intravenous, | | 15 9:23 | | | | | ONCE, 1 dose, 7/15/15 at 0645 | | AM PDT | | | | + +---------+ +-----+---+---+ +---+---+ | | | +---+---+ + +---------+ +-----+---+---+ | magnesium sulfate in water IV | | 03/28/20 | 4 g | | | | (RTU) 4 g 4 g, intravenous, | | 15 6:57 | | | | | ONCE, 1 dose, [facility] 03/28/15 at 0730 | | AM PDT | | | | + +---------+ +-----+---+---+ +---+---+ | | | +---+---+ + +---------+ +------+---+---+ | metoclopramide HCl (REGLAN) | New | 04/07/20 | 5 mg | | | | injection 5 mg 5 mg, | | 15 5:04 | | | | | intravenous, EVERY 6 HOURS, First | | AM PDT | | | | | dose on [facility] 03/27/15 at 1815, | | | | | | | Until Discontinued | | | | | | + +---------+ +------+---+---+ +---------+ +------+---+---+ | New Bag | 04/07/20 | 5 mg | | | | | 15 1:19 | | | | | | AM PDT | | | | +---------+ +------+---+---+ | New Bag | 04/06/20 | 5 mg | | | | | 15 6:23 | | | | | | PM PDT | | | | +---------+ +------+---+---+ +---+---+ | | | +---+---+ + +-------+ +---------+---+---+ | metoprolol tartrate 10 mg/mL | Given | 04/03/20 | 12.5 mg | | | | suspension (compound) 12.5 mg | | 15 9:00 | | | | | 12.5 mg, feeding tube, TWICE | | PM PDT | | | | | DAILY, First dose on 03/29/15 | | | | | | | at 1100, Until Discontinued | | | | | | + +-------+ +---------+---+---+ +-------+ +---------+---+---+ | Given | 04/03/20 | 12.5 mg | | | | | 15 8:24 | | | | | | AM PDT | | | | +-------+ +---------+---+---+ | Given | 04/02/20 | 12.5 mg | | | | | 15 10:02 | | | | | | PM PDT | | | | +-------+ +---------+---+---+ +---+---+ | | | +---+---+ + +-------+ +-------+---+---+ | fjutxnsnocfg-kkoj-pzeqgysg | Given | 04/07/20 | 15 mL | | | | (CEROVITE) liquid 15 mL 15 mL, | | 15 9:12 | | | | | feeding tube, DAILY, First dose | | AM PDT | | | | | on Tue03/28/15 at 1000, Until | | | | | | | Discontinued | | | | | | + +-------+ +-------+---+---+ +-------+ +-------+---+---+ | Given | 04/06/20 | 15 mL | | | | | 15 8:43 | | | | | | AM PDT | | | | +-------+ +-------+---+---+ | Given | 04/05/20 | 15 mL | | | | | 15 10:26 | | | | | | AM PDT | | | | +-------+ +-------+---+---+ +---+---+ | | | +---+---+ + +-------+ +---+---+---+ | mupirocin (BACTROBAN) 2 % | Given | 03/30/20 | | | | | ointment nasal, TWICE DAILY, 6 | | 15 10:56 | | | | | doses, First dose on [place] 03/27/15 | | AM PDT | | | | | at 2100, Last dose on [place] 03/30/15 | | | | | | | at 0900 | | | | | | + +-------+ +---+---+---+ +-------+ +---+---+---+ | Given | 03/29/20 | | | | | | 15 9:23 | | | | | | PM PDT | | | | +-------+ +---+---+---+ | Given | 03/29/20 | | | | | | 15 8:48 | | | | | | AM PDT | | | | +-------+ +---+---+---+ +---+---+ | | | +---+---+ + +-------+ +-------+---+---+ | omeprazole (PRILOSEC) oral | Given | 04/07/20 | 40 mg | | | | suspension (compound) 40 mg 40 | | 15 9:13 | | | | | mg, feeding tube, DAILY, First | | AM PDT | | | | | dose on Tue04/01/15 at 0900, | | | | | | | Until Discontinued | | | | | | + +-------+ +-------+---+---+ +-------+ +-------+---+---+ | Given | 04/06/20 | 40 mg | | | | | 15 8:43 | | | | | | AM PDT | | | | +-------+ +-------+---+---+ | Given | 04/05/20 | 40 mg | | | | | 15 10:26 | | | | | | AM PDT | | | | +-------+ +-------+---+---+ +---+---+ | | | +---+---+ + +-------+ +------+---+---+ | oxyCODONE (immediate release) | Given | 04/07/20 | 5 mg | | | | (ROXICODONE) liquid 5-10 mg 5-10 | | 15 1:19 | | | | | mg, feeding tube, EVERY 3 HOURS | | AM PDT | | | | | NEEDED, Starting 04/06/15 | | | | | | | at 0932, Until 04/07/15 at | | | | | | | 1927, moderate pain | | | | | | + +-------+ +------+---+---+ +---+---+ | | | +---+---+ + +-------+ +------+---+---+ | oxyCODONE (immediate release) | Given | 04/06/20 | 5 mg | | | | (ROXICODONE) liquid 5-15 mg 5-15 | | 15 12:42 | | | | | mg, feeding tube, EVERY 3 HOURS | | AM PDT | | | | | NEEDED, Starting [facility] 04/03/15 | | | | | | | at 0948, Until 04/06/15 at | | | | | | | 0932, moderate pain | | | | | | + +-------+ +------+---+---+ +-------+ +------+---+---+ | Given | 04/03/20 | 5 mg | | | | | 15 9:00 | | | | | | PM PDT | | | | +-------+ +------+---+---+ | Given | 04/03/20 | 5 mg | | | | | 15 3:19 | | | | | | PM PDT | | | | +-------+ +------+---+---+ +---+---+ | | | +---+---+ + +---------+ +---------+---+---+ | piperacillin-tazobactam (ZOSYN) | New Bag | 04/05/20 | 3.375 g | | | | IV (minibag+) 3.375 g 3.375 g, | | 15 5:34 | | | | | intravenous, EVERY 8 HOURS, First | | AM PDT | | | | | dose on [facility]ati 04/03/15 at 2200, | | | | | | | Until Discontinued | | | | | | + +---------+ +---------+---+---+ +---------+ +---------+---+---+ | New Bag | 04/04/20 | 3.375 g | | | | | 15 9:59 | | | | | | PM PDT | | | | +---------+ +---------+---+---+ | New Bag | 04/04/20 | 3.375 g | | | | | 15 1:36 | | | | | | PM PDT | | | | +---------+ +---------+---+---+ +---+---+ | | | +---+---+ + +---------+ +---------+---+---+ | piperacillin-tazobactam (ZOSYN) | New Bag | 04/03/20 | 3.375 g | | | | IV 3.375 g 3.375 g, | | 15 2:10 | | | | | intravenous, EVERY 8 HOURS, First | | PM PDT | | | | | dose on Tue04/02/15 at 1400, | | | | | | | Until Discontinued | | | | | | + +---------+ +---------+---+---+ +---------+ +---------+---+---+ | New Bag | 04/03/20 | 3.375 g | | | | | 15 6:42 | | | | | | AM PDT | | | | +---------+ +---------+---+---+ | New Bag | 04/02/20 | 3.375 g | | | | | 15 10:02 | | | | | | PM PDT | | | | +---------+ +---------+---+---+ +---+---+ | | | +---+---+ + +---------+ +---------+---+---+ | piperacillin-tazobactam (ZOSYN) | New Bag | 04/02/20 | 3.375 g | | | | IV 3.375 g 3.375 g, | | 15 7:58 | | | | | intravenous, ONCE, 1 dose, Wed | | AM PDT | | | | | 04/02/15 at 0745 | | | | | | + +---------+ +---------+---+---+ +---+---+ | | | +---+---+ + +-------+ +------+---+---+ | polyethylene glycol (MIRALAX) | Given | 04/07/20 | 17 g | | | | powder 17 g 17 g, feeding tube, | | 15 9:13 | | | | | DAILY, First dose on 03/31/15 | | AM PDT | | | | | at 0945, Until Discontinued | | | | | | + +-------+ +------+---+---+ +-------+ +------+---+---+ | Given | 04/04/20 | 17 g | | | | | 15 9:04 | | | | | | AM PDT | | | | +-------+ +------+---+---+ | Given | 04/03/20 | 17 g | | | | | 15 8:24 | | | | | | AM PDT | | | | +-------+ +------+---+---+ +---+---+ | | | +---+---+ + +-------+ +--------+---+---+ | potassium & sodium phosphates | Given | 04/01/20 | 500 mg | | | | (K PHOS NEUTRAL) tablet 500 mg | | 15 12:29 | | | | | 500 mg, feeding tube, ONCE, 1 | | PM PDT | | | | | dose, Dede 04/01/15 at 0945 | | | | | | + +-------+ +--------+---+---+ +---+---+ | | | +---+---+ + +-------+ +--------+---+---+ | potassium & sodium phosphates | Given | 04/04/20 | 500 mg | | | | (K PHOS NEUTRAL) tablet 500 mg | | 15 9:04 | | | | | 500 mg, feeding tube, ONCE, 1 | | AM PDT | | | | | dose, 04/04/15 at 0700 | | | | | | + +-------+ +--------+---+---+ +---+---+ | | | +---+---+ + +---------+ +--------+---+---+ | potassium chloride IV | New Bag | 04/05/20 | 40 mEq | | | | (peripheral line) 40 mEq 40 mEq, | | 15 12:26 | | | | | intravenous, ONCE, 1 dose, Sat | | PM PDT | | | | | 04/05/15 at 1100 | | | | | | + +---------+ +--------+---+---+ +---+---+ | | | +---+---+ + +---------+ +---------+---+---+ | potassium phosphate IV 15 mmol | New Bag | 04/01/20 | 15 mmol | | | | 15 mmol, intravenous, ONCE, 1 | | 15 12:27 | | | | | dose, Dede 04/01/15 at 1100 | | PM PDT | | | | + +---------+ +---------+---+---+ +---+---+ | | | +---+---+ + +---------+ +---------+-------+---+ | potassium phosphate IV 30 mmol | New Bag | 03/30/20 | 30 mmol | 120 | | | 30 mmol, intravenous, ONCE, 1 | | 15 8:09 | | mL/hr | | | dose, Annie 03/30/15 at 0700 | | AM PDT | | | | + +---------+ +---------+-------+---+ +---+---+ | | | +---+---+ + +---------+ +---------+---+---+ | potassium phosphate IV 30 mmol | New Bag | 03/31/20 | 30 mmol | | | | 30 mmol, intravenous, ONCE, 1 | | 15 12:53 | | | | | dose, 03/31/15 at 1030 | | PM PDT | | | | + +---------+ +---------+---+---+ +---+---+ | | | +---+---+ + +---------+ +---------+---+---+ | potassium phosphate IV 30 mmol | New Bag | 04/02/20 | 30 mmol | | | | 30 mmol, intravenous, ONCE, | | 15 7:45 | | | | | dose, [facility] 04/02/15 at 0645 | | AM PDT | | | | + +---------+ +---------+---+---+ +---+---+ | | | +---+---+ + +-------+ +-------+---+---+ | simethicone (MYLICON) | Given | 04/07/20 | 40 mg | | | | suspension 40 mg 40 mg, feeding | | 15 10:12 | | | | | tube, EVERY 6 HOURS, First dose | | AM PDT | | | | | on Tue04/01/15 at 0930, Until | | | | | | | Discontinued | | | | | | + +-------+ +-------+---+---+ +-------+ +-------+---+---+ | Given | 04/07/20 | 40 mg | | | | | 15 5:04 | | | | | | AM PDT | | | | +-------+ +-------+---+---+ | Given | 04/06/20 | 40 mg | | | | | 15 8:45 | | | | | | PM PDT | | | | +-------+ +-------+---+---+ +---+---+ | | | +---+---+ + +---------+ +---------+---+---+ | sodium phosphate IV 15 mmol 15 | New Bag | 03/27/20 | 15 mmol | | | | mmol, intravenous, ONCE, 1 dose, | | 15 9:44 | | | | | Kati 03/27/15 at 1930 | | PM PDT | | | | + +---------+ +---------+---+---+ +---+---+ | | | +---+---+ + +---------+ +---------+---+---+ | sodium phosphate IV 15 mmol 15 | New Bag | 03/29/20 | 15 mmol | | | | mmol, intravenous, ONCE, 1 dose, | | 15 11:03 | | | | | 03/29/15 at 1100 | | AM PDT | | | | + +---------+ +---------+---+---+ +---+---+ | | | +---+---+ + + + +---+---------+---+ | SUFentanil 2 mcg/mL in NaCl 0.9 | Rate/Dos | 03/30/20 | | 3 mL/hr | | | % epidural infusion epidural, | e Verify | 15 7:43 | | | | | CONTINUOUS, Starting Kati 03/27/15 | | AM PDT | | | | | at 1245, Until 03/30/15 at | | | | | | | 1120 | | | | | | + + + +---+---------+---+ + + +---+---------+---+ | Bolus from Same Bag | 03/30/20 | | 2 mL/hr | | | | 15 1:14 | | | | | | AM PDT | | | | + + +---+---------+---+ | Rate/Dose Change | 03/27/20 | | 3 mL/hr | | | | 15 8:00 | | | | | | PM PDT | | | | + + +---+---------+---+ +---+---+ | | | +---+---+ + +-------+ +---------+---+---+ | trimethoprim-sulfamethoxazole | Given | 04/07/20 | 2 | | | | (BACTRIM DS,SEPTRA DS) 160-800 mg | | 15 9:13 | tablets | | | | tablet 2 tablet 2 tablet, | | AM PDT | | | | | feeding tube, TWICE DAILY, First | | | | | | | dose (after last modification) on | | | | | | | 04/05/15 at 1215, Until | | | | | | | Discontinued | | | | | | + +-------+ +---------+---+---+ +-------+ +---------+---+---+ | Given | 04/06/20 | 2 | | | | | 15 8:45 | tablets | | | | | PM PDT | | | | +-------+ +---------+---+---+ | Given | 04/06/20 | 2 | | | | | 15 8:43 | tablets | | | | | AM PDT | | | | +-------+ +---------+---+---+ +---+---+ | | | +---+---+ documented in this encounter
--- OUTSIDE RECORDS SUMMARY | ~2020-01-10 | XMS | Encounter Summary ---
Demographics + + + | Address | [address] | | | [place] [address] | + + + | Home Phone | | + + + | Preferred Language | Unknown | + + + | Marital Status | | + + + | Druze Affiliation | NON | + + + [...] [place] | | | | | [address] | | + + + + + | Ronny Reen | ECON | Unknown | | + + + + + | Char Woodard | ECON | Unknown | | + + + + + Care Team Providers + +------+ + | Care Garnett Feeder Name | Role | Phone | + [...] | Closed | | | Diagnoses | Arffy, | | | | | | Dysphagia, | MD Vijay | | | | | | unspecified | [address] | | | | | | type H/O | [place] | | | | | | esophagectom | Rd | | | | | | y | [place], [place] | | | | | | Procedures | [address] | | | | | | CONSULT TO | Phone: | | | | | | GI PROCEDURE | [phone] | | | | | | UNIT: EGD | Fax: | | | | | | | [phone] | | +--------+--------+ + + + + [...] 2017 | | Center at [facility] [address] | [address] | | | | | [facility] | Park [facility], | | | | | [facility] and | [place] [address] | | | | | [facility] [address] | [phone] | | | | | [place], [place] | | | | | | [address] | | | | | | [phone] | | | +--------+ + + + [...]
--- OUTSIDE RECORDS SUMMARY | ~2020-01-10 | XMS | Encounter Summary ---
Demographics + + + | Address | [address] | | | [place] [address] | + + + | Home Phone [...] + + + | Author | [facility] | + + + | Organization | [facility] | + + + | Address | Unknown | + + + | Phone | Unavailable | + + + Support + + + + + | Name | Relationship | Address | Phone | + + + + + | Selena Meredith | ECON | [address] | | | | | [place] | | | | | [address] | | + + + + + | Ronny Rene | ECON | Unknown | | + + + + + | Char Woodard | ECON | Unknown | | + + + + + Care Team Providers + +------+ + | Care Client Account Assistant Name | Role | Phone | + [...] + + | 03/27/ | Hospital | [facility] [address] | Vijay Akbar MD | | | 2015 - | Encounter | [place] Mailcode: | [address] | | | | | [id number] Melissa | Latesha Soliz [place], | | | 04/[birth year]/ | | [place], | [place] [address] | | | 2015 | | [place] [address] | [phone] | | | | | [phone] | | | +--------+ + + + [...] chronic 7) Knee pain, chronic 8) hx DC (myocardial infarction) 9) Hearing loss 10) Esophageal adenocarcinoma 11) Unintentional weight loss 12) Dysphagia Patient Active Problem List Diagnosis Chronic LBP Acid reflux HLD (hyperlipidemia) BP (high blood pressure) Anastomotic leak following esophagectomy GERD (gastroesophageal reflux disease) Hypertension Cheema's esophagus Back pain, chronic Knee pain, chronic hx DC (myocardial infarction) Hearing loss Esophageal adenocarcinoma Unintentional [...] Gastric Motility Qty: 180 tablet, Refills: 0 epjpajxomxdz-npxa-niwzxocp oral liquid 15 mL by feeding tube [...] lb 10.8 oz) (04/06/15 050) Destination: Destination: [facility] Condition on Discharge Stable Discharge POLST completed Full code Discharge Summary Completed?: Yes, 07 Apr 2015 Discharging Provider: ALE GIPSON MD Date Completed: 07 Apr 2015 Discharging Attending: Vijay Akbar MD documented in this encou nter Discharge Instructions Instructions Lizzette Krishna, PENNY - 04/01/2015 Your nurse caser shoe parts with [facility] Health Plan is [place]; she can be reached at [phone]. documented in this encounter Medications at Time [...] PM PDTReport called to nurse Nupur at [facility]. [phone]. Ale Conrad MD - 04/06/2015 9:01 AM [...] Neck incision intact - no surrounding erythema. Rohwer with mucoid output. Heart: RRR, no m/r/g [...] seen with Dr. Akbar. Ale Gipson MD [facility] Surgery R5 Pager [phone] lark, Ale Lester MD - 04/05/2015 9:29 [...] Neck incision intact - no surrounding erythema. Rohwer with mucoid output, air leak with swallow. [...] seen with Dr. Akbar. Ale Gipson MD [facility] Surgery R5 Pager [phone] Gio Ramirez MD - 04/04/2015 8:59 AM [...] once today Enoxaparin PPI Gio Lowery MD [facility], General Surgery R-1 P: [phone] Ale Gerardo MD - 04/03/2015 4:24 PM [...] air. Cough is stronger and a little core drier than yest erday HEENT: Neck incision intact [...] Practitioner [facility] [address] [place] [address] Celso Lopez NP - 7:52 AM PDT INPATIENT ADULT PAIN SERVICE NEURAXIAL BLOCK PROGRESS NOTE 04/03/2015 Author: CELSO PALMER NP POD#7. Status post: Trans-hiatal esophagectomy, pyloromyotomy, J tube placement, bilateral Chest tube placement, colopexy Past Medical History Diagnosis Date GERD (gastroesophageal reflux disease) HTN (hypertension) Cheema's esophagus Knee pain, chronic Back pain, chronic DC (myocardial infarction) s/p CABG x 2 Hearing [...] 12.5 mg 12.5 mg feeding tube BID bqrxjbmbvgog-ylsf-efrdmdou (CEROVITE) liquid 15 mL 15 mL feeding [...] and summary of old medical records (source: [employer]), as summarized in the body of the note. Personal review of laboratory results. CELSO PALMER, MSN, ACNP- Nurse Practitioner [facility] [address] [place] [address] Bebe Hung MD - 04/02/2015 7:22 PM [...] Dispo: acute care Bebe Baldwin MD Pager: [phone] lark, Ale Lester MD - 04/02/2015 7:41 AM PDTPatient with gastric contents draining from neck incision c/w anas tomotic leak. WBC 17, no other signs of sepsis. Will open neck incision at bedside with local, start zosyn, stop tube feeds (stopped at 072 0 AM). Not receiving anything PO. OR for washout today. Raffy available after 0900. Discussed with Dr. Rene. Ale Gipson MD R5 Chief Resident Electronically signed by [...] esophagus Knee pain, chronic Back pain, chronic DC (myocardial infarction) s/p CABG x 2 Hearing [...] 12.5 mg 12.5 mg feeding tube BID oacckjwyuhwm-pgjr-bdvnaplv (CEROVITE) liquid 15 mL 15 mL feeding [...] and summary of old medical records (source: [employer]), as summarized in the body of the note. Personal review of laboratory results. CELSO PALMER, MSN, ACNP- Nurse Practitioner [facility] [address] [place] [address] Bulmaro Pitt MD,MPH - 04/01/2015 6:36 PM [...] CV - BPs wnl. Tachycardia improved. Hx CAD/DC - s/p CABG x 2 in 2007, [...] and preauth for [place] enoxaparin SAMANTHA GUNN [address] [facility] Mailcode: [facility] [place] [address] Celso Lopez NP - 8:45 AM PDT INPATIENT ADULT PAIN SERVICE NEURAXIAL BLOCK PROGRESS NOTE 04/01/2015 Author: CELSO PALMER NP POD#5. Status post: Trans-hiatal esophagectomy, pyloromyotomy, J tube placement, bilateral Chest tube placement, colopexy Past Medical History Diagnosis Date GERD (gastroesophageal reflux disease) HTN (hypertension) Cheema's esophagus Knee pain, chronic Back pain, chronic DC (myocardial infarction) s/p CABG x 2 Hearing [...] 12.5 mg 12.5 mg feeding tube BID uoeebjdmyhsl-lxad-ykxhpfjx (CEROVITE) liquid 15 mL 15 mL feeding [...] nd summary of old medical records (source: [employer]), as summarized in the body of the note. Personal review of radiological images. Personal review of laboratory results. CELSO PALMER, MSN, ACNP- Nurse Practitioner [facility] [address] [place] [address] Gio Ramirez MD - 0 03/31/2015 11:20 [...] air. Cough is stronger and a little core drier than yest erday HEENT: Neck incision intact [...] CV - BPs wnl. Tachycardia improved. Hx CAD/DC - s/p CABG x 2 in 2007, [...] we staff with Dr Edgard Lowery MD [facility], General Surgery ng, Celso Robins, SPORTS CLERK - 0 03/31/2015 8:07 AM PDT INPATIENT ADULT PAIN SERVICE NEURAXIAL BLOCK PROGRESS NOTE 03/31/2015 Author: CELSO PALMER NP POD#4. Status post: Trans-hiatal esophagectomy, pyloromyotomy, J tube placement, bilatera l Chest tube placement, colopexy Past Medical History Diagnosis Date GERD (gastroesophageal reflux disease) HTN (hypertension) Cheema's esophagus Knee pain, chronic Back pain, chronic DC (myocardial infarction) s/p CABG x 2 Hearing [...] 12.5 mg 12.5 mg feeding tube BID gaojgdjrorae-pugz-teoyeuqg (CEROVITE) liquid 15 mL 15 mL feeding [...] and summary of old medical records (source: [employer]), as summarized in the body of the note. Personal review of radiological images. Personal review of laboratory results. CELSO PALMER, MSN, ACNP- Nurse Practitioner [facility] [address] [place] [address] Bulmaro Pitt MD,MPH - 03/30/2015 9:33 AM PDTRed surgery Attending Dr Akbra I: NAEO Requiring oxygen mask and 5L [...] air Cough is stronger and a little core drier than yesterday NGT functioning with green-brown output [...] CV - BPs wnl. Tachycardia improved. Hx CAD/DC - s/p CABG x 2 in 2007, [...] PRN IV phos today Tricke TFs Remove Joynre UTI panel sent Heme - Presently, urine [...] staff with Dr Edgard Hernandez MD, MPH [address] Division of Plastic & Reconstructive Surgery Pager: [phone] au Cisse - 03/30 8:54 AM PDT [...] 12.5 mg 12.5 mg feeding tube BID wpftxjkwlvtk-jxbu-lodkusws (CEROVITE) liquid 15 mL 15 mL feeding [...] borderline HTN, no arrhthymias overnight. Tachycardic. Hx CAD/DC - s/p CABG x 2 in 20 [...] with Dr Edgard Hernandez MD, MPH R2 [facility] Division of Plastic & Reconstructive Surgery Pager: [phone] Justo Palm MD - 03/29/2015 8:11 AM [...] injection 5 mg 5 mg intravenous Q6H wzhxudhgvylx-aoeg-yimtyffb (CEROVITE) liquid 15 mL 15 mL feeding [...] Garcia on TSICU rounds. Mau Cisse MS4 [facility] Bulmaro Pitt MD ,MPH - 03/28/2015 11:14 [...] - borderline HTN, no arrhthymias overnight. Hx CAD/DC - s/p CABG x 2 in 2007, [...] with Dr Edgard Hernandez MD, MPH R2 [facility] Division of Plastic & Reconstructive Surgery Pager: [phone] romm, Bob Gottlieb MD - 03/28/2015 11:09 AM PDTTrauma / Surgical Critical Care Service - Progress Note Name: JUNAID MEREDITH Date: 03/28/2015 Time: 11:09 AM Author: BOB EDOUARD MD HPI: 75 y.o. male with history of severe GERD and Cheema's for 3 years. He was diagnosed with h igh-grade Cheema's and referred to [facility] for ablation. However, In December 2014 and [...] Bob Edouard MD General Surgery, R2 Pager [phone] Dept of Surgery SICU/TICU Contact First Call [...] pulmonary toilet. Justo Garcia MD, MPH, FACS, 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 [phone] Ivanna Moreno MD - 03/28/2015 8:23 AM [...] Bilateral Chest tube placement. Colopexy 2. Opioid pyaton My treatment plan is: Continue neuraxial infusion, [...] MIS Fellow GONS[facility] Dept. of Surgery Pager [phone] documented in t his encounter Plan of [...] CHG), | e | 12:37 PM | ([facility]) | procedure are in the | | POC | | PDT | | results section. | + +--------+ + + + | CAPILLARY BLOOD | Routin | 04/05/2015 | Esophageal cancer | Results for this | | GLUCOSE (NO CHG), | e | 5:40 AM | ([facility]) | procedure are in the | | [...] CHG), | e | 12:33 PM | ([facility]) | procedure are in the | | [...] CHG), | e | 12:13 PM | ([facility]) | procedure are in the | | [...] CHG), | e | 5:55 AM | ([facility]) | procedure are in the | | [...] CHG), | e | 12:19 AM | ([facility]) | procedure are in the | | [...] CHG), | e | 6:08 PM | ([facility]) | procedure are in the | | [...] | | | | | signed / TMOA Ramirez | | | | | | [...] [facility] | [address] | [place] [address] | | | SERVICES, CORE | PARK [...] | + + + + + | [facility] | [address] | [place] [address] | | | SERVICES, CORE | LATESHA [...] [facility] | [address] | [place] [address] | | | SERVICES, CORE | PARK [...] | | | LABORATORY | | | BRITISH | | | SERVICES, | | | [...] | + + + + + | [facility] | [address] | [place] [address] | | | SERVICES, CORE | LATESHA [...] MARQU[facility] | [address] | [place], [place] | | | YG POINT OF CARE | [address] | [address] | | | TESTS | | | | + + + + + X-RAY PORTABLE CHEST 1 VIEW (04/05/2015 1:13 PM PDT) + + + + + + | Component | Value | Ref Range | Performed | Pathologist | | | | | At | Signature | + + + + + + | X-RAY | STUDY: NE CHEST 1 VIEW | | | | [...] MARLINOAM | [address] | [place], [place] | | | SADE RONQUILLO OF CARE | [facility] | [address] | | | TESTS | | | [...] (H) | 60 - 99 mg/dL | [facility] - | | | GLUCOSE, | | [...] HERNANDEZ | [address] | [place], [place] | | | S[place] OF [facility] | [address] | [address] | | | TESTS | | | [...] | + + + + + | [facility] | [address] | [place] [address] | | | SERVICES, CORE | [address] | | | + + + + + MAGNESIUM, PLASMA (04/05/2015 5:33 AM PDT) + +-------+ + + + | Component | Value | Ref Range | Performed | Pathologist | | | | | At | Signature | + +-------+ + + + | MAGNESIUM,P | 1.9 | 1.8 - 2.5 mg/dL | [facility] | | | LASMA | | | [...] | + + + + + | [facility] | [address] | [place] [address] | | | SERVICES, CORE | LATESHA [...] | | | LABORATORY | | | BRITISH | | | SERVICES, | | | [...] the MDRD equation recommended by the | [facility] | | National Kidney Disease Education Program. [...] | + + + + + | [facility] | [address] [facility] | [place] [address] | | | [place] | [address] | | | + + + + + X-RAY PORTABLE CHEST 1 VIEW (04/05/2015 5:09 AM PDT) + + + + + + | Component | Value | Ref Range | Performed | Pathologist | | | | | At | Signature | + + + + + + | X-RAY | EXAM: NE CHEST 1 VIEW | | | | [...] MADYAM | [address] | [place], [place] | | | SADE [place]QUILLO OF CARE | [facility] | [address] | | | TESTS | | | [...] (H) | 60 - 99 mg/dL | [facility] - | | | GLUCOSE, | | [...] HERNANDEZ | [address] | [place], [place] | | | YG POINT OF CARE | [address] | [address] | | | TESTS | | | [...] HERNANDEZ | [address] | [place], [place] | | | SADE R[place]QUILLO OF CHRIS | [facility] | [address] | | | TESTS | | | [...] DAVID | [address] | [place], [place] | | | YG POINT OF CARE | [facility] | [address] | | | TESTS | | | [...] [facility] | [address] | [place] [address] | | | SERVICES, CORE | LATESHA [...] [facility] | [address] | [place] [address] | | | SERVICES, CORE | PARK [...] | | | LABORATORY | | | BRITISH | | | SERVICES, | | | [...] GONSALO JANE | [address] | [place] [address] | | | SERVICES, CORE | [address] | | | + + + + + X-RAY PORTABLE CHEST 1 VIEW (04/04/2015 3:24 AM PDT) + + + + + + | Component | Value | Ref Range | Performed | Pathologist | | | | | At | Signature | + + + + + + | X-RAY | EXAM: NE CHEST 1 VIEW | | | | [...] | | + +---------+ + + | [facility] DEPARTMENT OF | | | | | [...] MARQUAM | [address] | [place], [place] | | | YG POINT OF CARE | [address] | [address] | | | TESTS | | | [...] HERNANDEZ | [address] | [place], [place] | | | YG POINT OF CARE | [address] | [address] | | | TESTS | | | [...] MARQUAM | [address] | [place], [place] | | | YG POINT OF CARE | [address] | [address] | | | TESTS | | | [...] | | + +---------+ + + | [facility] DEPARTMENT OF | | | | | RADIOLOGY | | | | + +---------+ + + X-RAY PORTABLE CHEST 1 VIEW (04/03/2015 7:24 AM PDT) + + + + + + | Component | Value | Ref Range | Performed | Pathologist | | | | | At | Signature | + + + + + + | X-RAY | EXAM: NE CHEST 1 VIEW | | | | [...] | | | | | lower neck Rohwer | | | | | | drains [...] | | + +---------+ + + | [facility] DEPARTMENT OF | | | | | [...] HERNANDEZ | [address] | [place], [place] | | | YG MALIN OF [facility] | [address] | [address] | | | TESTS | | | [...] [facility] | [address] | [place] [address] | | | SERVICES, CORE | PARK [...] [facility] | [address] | [place] [address] | | | SERVICES, CORE | PARK [...] | | | LABORATORY | | | BRITISH | | | SERVICES, | | | [...] | + + + + + | [facility] | [address] [facility] | [place] [address] | | | SERVICES, [place] | LATESHA [...] MARQUAM | [address] | [place], [place] | | | HILL, POINT OF CARE | [address] | [address] | | | TESTS | | | [...] MARQUAM | [address] | [place], [place] | | | SADE RONQUILLO OF CARE | [address] | [address] | | | TESTS | | | [...] + | [facility] | [address] | [place] [address] | | | [place] | | | [...] DAVID | [address] | [place], [place] | | | YG POINT OF CARE | [address] | [address] | | | TESTS | | | [...] | + + + + + | [facility] | [address] | [place] [address] | | | SERVICES, | [address] [...] | + + + + + | [facility] | [address] | [place] [address] | | | SERVICES, | [address] [...] + + + | X-RAY | EXAM: NE CHEST 1 VIEW | | | | [...] MADYAM | [address] | [place], [place] | | | SADE [place] OF [facility] | [address] | [address] | | | TESTS | | | [...] | + + + + + | [facility] | [address] | [place] [address] | | | SERVICES, CORE | [address] | | | + + + + + MAGNESIUM, PLASMA (04/02/2015 3:25 AM PDT) + +-------+ + + + | Component | Value | Ref Range | Performed | Pathologist | | | | | At | Signature | + +-------+ + + + | MAGNESIUM,P | 1.9 | 1.8 - 2.5 mg/dL | [facility] | | | LASMA | | | [...] | + + + + + | [facility] | [address] | [place] [address] | | | SERVICES, CORE | [address] [...] | | | LABORATORY | | | BRITISH | | | SERVICES, | | | [...] the MDRD equation recommended by the | [facility] | | National Kidney Disease Education Program. [...] | + + + + + | [facility] | [address] | [place] [address] | | | [place] | [address] [...] [facility]MANU[facility] | [address] | [place], [place] | | | SADE RONQUILLO OF [place]IS | [address] | [address] | | | TESTS | | | [...] MADY | [address] | [place], [place] | | | YG POINT OF [facility] | [facility] | [address] | | | TESTS | | | [...] | | | LABORATORY | | | BRITISH | | | SERVICES, | | | [...] | + + + + + | [facility] | [address] | [place] [address] | | | SERVICES, CORE | [address] | | | + + + + + X-RAY PORTABLE CHEST 1 VIEW (04/01/2015 1:37 PM PDT) + + + + + + | Component | Value | Ref Range | Performed | Pathologist | | | | | At | Signature | + + + + + + | X-RAY | EXAM: NE CHEST 1 VIEW | | | | [...] MARQUAM | [address] | [place], [place] | | | YG POINT OF CARE | [address] | [address] | | | TESTS | | | | + + + + + X-RAY PORTABLE CHEST 1 VIEW (04/01/2015 6:54 AM PDT) + + + + + + | Component | Value | Ref Range | Performed | Pathologist | | | | | At | Signature | + + + + + + | X-RAY | EXAM: NE CHEST 1 VIEW | | | | [...] DAVID | [address] | [place], [place] | | | YG MALIN OF [facility] | [facility] | [address] | | | TESTS | | | [...] [facility] | [address] | [place] [address] | | | [place] | [address] [...] [facility] | [address] | [place] [address] | | | SERVICES, CORE | PARK [...] | | | LABORATORY | | | BRITISH | | | SERVICES, | | | [...] | + + + + + | [facility] | [address] | [place] [address] | | | SERVICES, CORE | LATESHA [...] MARQUAM | [address] | [place], [place] | | | YG POINT OF CARE | [address] | [address] | | | TESTS | | | [...] DAVID | [address] | [place], [place] | | | SADE [place]ONQUILLO OF [place] | [address] | [address] | | | TESTS | | | [...] DAVID | [address] | [place], [place] | | | SADE RONQUILLO OF CARE | [facility] | [address] | | | TESTS | | | [...] HERNANDEZ | [address] | [place], [place] | | | YG POINT OF CARE | [address] | [address] | | | TESTS | | | | + + + + + X-RAY PORTABLE CHEST 1 VIEW (03/31/2015 5:38 AM PDT) + + + + + + | Component | Value | Ref Range | Performed | Pathologist | | | | | At | Signature | + + + + + + | X-RAY | EXAM: NE CHEST 1 VIEW | | | | [...] | + + + + + | [facility] | [address] | [place] [address] | | | SERVICES, CORE | [address] | | | + + + + + MAGNESIUM, PLASMA (03/31/2015 5:19 AM PDT) + +-------+ + + + | Component | Value | Ref Range | Performed | Pathologist | | | | | At | Signature | + +-------+ + + + | MAGNESIUM,P | 1.9 | 1.8 - 2.5 mg/dL | [facility] | | | LASMA | | | [...] | + + + + + | [facility] | [address] | [place] [address] | | | SERVICES, CORE | PARK [...] | | | LABORATORY | | | BRITISH | | | SERVICES, | | | [...] | + + + + + | [facility] | [address] | [place] [address] | | | [place] | [address] [...] + + + | [facility] | [address] | [place], [place] | | | SADE RONQUILLO OF [facility] | [address] | [address] | | | TESTS | | | [...] MARQUAM | [address] | [place], [place] | | | SADE RONQUILLO OF CARE | [address] | [address] | | | TESTS | | | | + + + + + X-RAY PORTABLE CHEST 1 VIEW (03/30/2015 5:54 AM PDT) + + + + + + | Component | Value | Ref Range | Performed | Pathologist | | | | | At | Signature | + + + + + + | X-RAY | STUDY: NE CHEST 1 VIEW | | | | [...] | + + + + + | [facility] | [address] | [place] [address] | | | SERVICES, CORE | LATESHA [...] | + + + + + | [facility] | [address] | [place] [address] | | | [place] | [address] [...] | | | LABORATORY | | | BRITISH | | | SERVICES, | | | [...] | + + + + + | [facility] | [address] | [place] [address] | | | SERVICES, CORE | PARK [...] [facility] | | | DARONE | [address] | | REG UNIV | | | | Miranda Patel, [facility] [place] | | PTH - [facility] | | | | [phone] | | | | | | [phone].[email or web address]. | | | | | | Omer [...] [facility] | [address] | [place], [place] | | | UNIV PTH - INTFC | | [address] | | + + + + + [...] MARQUAM | [address] | [place], [place] | | | SADE RONQUILLO OF CARE | [address] | [address] | | | TESTS | | | [...] DAVID | [address] | [place], [place] | | | SADE RONQUILLO OF [facility] | [facility] | [address] | | | TESTS | | | [...] | + + + + + | [facility] | [address] | [place] [address] | | | SERVICES, CORE | LATESHA [...] | + + + + + | [facility] | [address] | [place] [address] | | | SERVICES, CORE | PARK [...] + + | [facility] | [address] | [place] [address] | | | SERVICES, CORE | PARK [...] | + + + + + | [facility] | [address] | [place] [address] | | | SERVICES, [place] | LATESHA [...] MARQUAM | [address] | [place], [place] | | | YG POINT OF CARE | [address] | [address] | | | TESTS | | | [...] | + + + + + | [facility] | [address] | [place] [address] | | | SERVICES, CORE | LATESHA [...] [facility] | [address] | [place] [address] | | | SERVICES, [place] | LATESHA [...] | | | LABORATORY | | | BRITISH | | | SERVICES, | | | [...] | + + + + + | [facility] | [address] | [place] [address] | | | SERVICES, CORE | [address] | | | + + + + + X-RAY PORTABLE CHEST 1 VIEW (03/29/2015 5:57 AM PDT) + + + + + + | Component | Value | Ref Range | Performed | Pathologist | | | | | At | Signature | + + + + + + | X-RAY | EXAM: NE CHEST 1 VIEW | | | | [...] | | | | | | Radiologists: ITM | | | | | | SAÚL [...] | | + +---------+ + + | [facility] DEPARTMENT OF | | | | | RADIOLOGY | | | | + +---------+ + + OPERATION RECORD (03/28/2015 3:46 PM PDT) + + | Transcriptions | + + | Eric Conley MD - 03/27/2015 9:17 PM PDT Date of Service: 03/27/2015 | | Attending Surgeon: Vijay Akbar MD Project Account Manager(s): Tito Rene MD | | MD Bulmaro [...] trocar, 11 mm, using the | | Cat AmaniaStep system w, approximately 17 cm from the [...] cm from that one. We used a Sunfire liver retractor | | which was placed [...] to our mediastinal dissection. We placed a Rohwer drain around | | our esophagus, and [...] of the specimen. We then passed a [place] [employer] | | chest tube from the neck [...] 03/27/2015 | | 18:54:08DT: 03/27/2015 21:17:00Job #: [id number] | + + CAPILLARY BLOOD GLUCOSE (NO [...] [facility] | [address] | [place], [place] | | | [facility] | [address] | [address] | | | TESTS | | | | + + + + + X-RAY PORTABLE CHEST 1 VIEW (03/28/2015 6:05 AM PDT) + + + + + + | Component | Value | Ref Range | Performed | Pathologist | | | | | At | Signature | + + + + + + | X-RAY | EXAM: NE CHEST 1 VIEW | | | | [...] [facility] | [address] | [place] [address] | | | SERVICES, CORE | PARK [...] | | | LABORATORY | | | BRITISH | | | SERVICES, | | | [...] | + + + + + | [facility] | [address] | [place] [address] | | | SERVICES, CORE | LATESHA [...] [facility] | [address] | [place] [address] | | | NELLY, CORE | [address] | | | + + + + + X-RAY PORTABLE CHEST 1 VIEW (03/27/2015 3:50 PM PDT) + + + + + + | Component | Value | Ref Range | Performed | Pathologist | | | | | At | Signature | + + + + + + | X-RAY | EXAM: NE CHEST 1 VIEW | | | | [...] HERNANDEZ | [address] | [place], [place] | | | YG POINT OF CARE | [address] | [address] | | | TESTS | | | [...] [facility] | [address] | [place] [address] | | | SERVICES, CORE | PARK [...] [facility] | [address] | [place] [address] | | | SERVICES, CORE | PARK [...] | | | LABORATORY | | | BRITISH | | | SERVICES, | | | [...] | + + + + + | [facility] | [address] | [place] [address] | | | SERVICES, CORE | PARK [...] HERNANDEZ | [address] | [place], [place] | | | SADE RONQUILLO OF CHRIS | [facility] | [address] | | | TESTS | | | [...] MARQUAM | [address] | [place], [place] | | | YG POINT OF CARE | [facility] | [address] | | | TESTS | | | [...] - MARQUAM | [address] | [place], [place] | | | SADE RONQUILLO OF CARE | [address] | [address] | | | TESTS | | | [...] HERNANDEZ | [address] | [place], [place] | | | SADE RONQUILLO OF CHRIS | [address] | [address] | | | TESTS | | | [...] MARQUAM | [address] | [place], [place] | | | YG POINT OF CARE | [address] | [address] | | | TESTS | | | [...] MARQUAM | [address] | [place], [place] | | | YG POINT OF CARE | [address] | [address] | | | TESTS | | | [...] + + + | GONSALO HERNANDEZ | [address] | [place], [place] | | | YG POINT OF CARE | [address] | [address] | | | TESTS | | | [...] MARQUAM | [address] | [place], [place] | | | SADE RONQUILLO OF CARE | [address] | [address] | | | TESTS | | | [...] HERNANDEZ | [address] | [place], [place] | | | SADE RONQUILLO OF CARE | [address] | [address] | | | TESTS | | | [...] MARQUAM | [address] | [place], [place] | | | SADE RONQUILLO OF CARE | [address] | [address] | | | TESTS | | | [...] - MADYAM | [address] | [place], [place] | | | YG POINT OF CARE | [address] | [address] | | | TESTS | | | [...] HERNANDEZ | [address] | [place], [place] | | | SADE RONQUILLO OF CARE | [address] | [address] | | | TESTS | | | [...] DAVID | [address] | [place], [place] | | | SADE RONQUILLO OF CHRIS | [address] | [address] | | | TESTS | | | [...] - DAVID | [address] | [place], [place] | | | SADE RONQUILLO OF CARE | [facility] | [address] | | | TESTS | | | [...] + + + + | [facility] DAV[facility] | [address] | [place], [place] | | | SADE RONQUILLO OF CARE | [address] | [address] | | | TESTS | | | [...] DAVID | [address] | [place], [place] | | | SADE RONQUILLO OF CHRIS | [address] | [address] | | | TESTS | | | [...] - MADYAM | [address] | [place], [place] | | | SADE RONQUILLO OF CARE | [address] | [address] | | | TESTS | | | [...] HERNANDEZ | [address] | [place], [place] | | | SADE RONQUILLO OF [facility] | [facility] | [address] | | | TESTS | | | [...] DAVID | [address] | [place], [place] | | | SADE RONQUILLO OF CARE | [address] | [address] | | | TESTS | | | [...] - DAVID | [address] | [place], [place] | | | SADE RONQUILLO OF CHRIS | [facility] | [address] | | | TESTS | | | | + + + + + CHLORIDE, POC (03/27/2015 11:31 AM PDT) + +-------+ + + + | Component | Value | Ref Range | Performed | Pathologist | | | | | At | Signature | + +-------+ + + + | CHLORIDE, | 106 | 97 - 108 mmol/L | [facility] - | | | POC | | [...] DAVID | [address] | [place], [place] | | | YG POINT OF CARE | [address] | [address] | | | TESTS | | | [...] DAVID | [address] | [place], [place] | | | SADE RONQUILLO OF CHRIS | [facility] | [address] | | | TESTS | | | [...] - MARQUAM | [address] | [place], [place] | | | SADE RONQUILLO OF CARE | [facility] | [address] | | | TESTS | | | [...] | | | POC | | | GY POINT | | | | | | [...] HERNANDEZ | [address] | [place], [place] | | | SADE RONQUILLO OF CARE | [facility] | [address] | | | TESTS | | | [...] - MARQUAM | [address] | [place], [place] | | | SADE RONQUILLO OF CARE | [facility] | [address] | | | TESTS | | | [...] MARQUAM | [address] | [place], [place] | | | SHI RONQUILLO | [facility] | [address] | | | TESTS | | | [...] HERNANDEZ | [address] | [place], [place] | | | YG POINT OF CARE | [address] | [address] | | | TESTS | | | [...] MARQUAM | [address] | [place], [place] | | | YG POINT OF CARE | [facility] | [address] | | | TESTS | | | [...] [facility] | [address] | [place], [place] | | | YG POINT OF CARE | [address] | [address] | | | TESTS | | | [...] + + + + + | GONSALO HERANNDEZ | [address] | [place], [place] | | | YG POINT OF [facility] | [address] | [address] | | | TESTS | | | [...] HERNANDEZ | [address] | [place], [place] | | | SADE RONQUILLO OF CHRIS | [facility] | [address] | | | TESTS | | | [...] + + + | GONSALO HERNANDEZ | [address] | [place], [place] | | | SADE RONQUILLO OF [facility] | [address] | [address] | | | TESTS | | | [...] | | | | | | | Finance Manager | | | | | | E: [...] proximal | | | | | | [id number], | | | | | | sequential sections | | | | | | adjacent to proximal | | | | | | esophageal [id number], | | | | | | parts representative | | | | | | perpendicular section of | | | | | | distal gastric | | | | | | [id number], entire | | | | | | adipose tissue from mid | | | | | | esophagus, entire | | | | | | fatD18, distal | | | | | | esophagus, five possible | | | | | | lymph [id number], | | | | | | distal esophagus, | | | | | | remaining fatD21, five | | | | | | possible lymph iqhxyT14, | | | | | | five possible lymph | | | | | | crrtsH36, five possible | | | | | | lymph hplfmJ39, one | | | | | | possible lymph nodeD25, | | | | | | distal stomach, four | | | | | | possible lymph beoroW30, | | | | | | distal [...] | + + + + + | [facility] | [address] | [place] [address] | | | PATHOLOGY | [address] [...] pain, chronic | + + | hx DC (myocardial infarction) Acute myocardial infarction, unspecified site, [...] | | | | | modification) on [facility] 04/03/15 at | | | | [...] 8:00 | | | | | Starting [facility] 03/27/15 at 1500, | | AM [...] | | | | ONCE, 1 dose, [facility] 03/28/15 at 0730 | | AM PDT [...] | | +---+---+ + +-------+ +-------+---+---+ | diuhxgzphxyy-wwwn-tzlokrem | Given | 04/07/20 | 15 mL [...] | | at 2100, Last dose on [place] 03/30/15 | | | | | | [...] | | | | | NEEDED, Starting [facility] 04/03/15 | | | | | [...] 7:45 | | | | | dose, [facility] 04/02/15 at 0645 | | AM [...]
--- OUTSIDE RECORDS SUMMARY | ~2020-01-10 | XMS | Encounter Summary ---
Demographics + + + | Address | [address] | | | [place] [address] | + + + | Home Phone | | + + + | Preferred Language | Unknown | + + + | Marital Status | | + + + | Anabaptism Affiliation | Unknown | + + + | Race | Unknown | + + + | Ethnic Group | Unknown | + + + Author + + + | Author | [facility] | | | and Tobyana | + + + | Organization | [facility] | | | and [...] | | | | | [place] [address] | | + + + + + Care Team Providers + +------+ + | Care Animal Feeder Name | Role | Phone | + +------+ + PCP | Unavailable | + +------+ + Encounter Details +--------+ + + + + | Date | Type | Department | Care Team | Description | +--------+ + + + + | 06/01/ | Abstract | [facility] | DATA MIGRATION FERNANDO | | | 2011 | | Conversion Location | SR | | | | | [address] | | | | | | [place], [place] | | | | | | [address] | | | | | | [phone] | | | +--------+ + + + [...] | Blood Pressure | 164/76 | 12/08/2011 12:00 AM | | | | | PDT [...] | 90.7 kg (200 lb) | 12/08/2011 12:00 AM | | | | | PDT | | + + + + + | Height | 180.3 cm (5' 11") | 12/08/2011 12:00 AM | | | | | PDT | | + + + + + | Body Mass Index | 27.89 | 12/08/2011 12:00 AM | | | | | PDT [...] | | | | | | [place] [address] | | | | | | [phone] | | | | | | | | +--------+---------+ + + + documented as of this encounter Visit Diagnoses Not on filedocumented in this encounter
--- OUTSIDE RECORDS SUMMARY | ~2020-01-10 | XMS | Encounter Summary ---
Demographics + + + | Address | [address] | | | [place] [address] | + + + | Home Phone | | + + + | Preferred Language | Unknown | + + + | Marital Status | | + + + | Sikh Affiliation | NON | + + + [...] + + + + + | Selena Jimeenz | ECON | [address] | | | | | [place] | | | | | [address] | | + + + + + | Ronny Rene | ECON | Unknown | | + + + + + | Char Woodard | ECON | Unknown | | + + + + + Care Team Providers + +------+ + | Care Client Support Representative Name | Role | Phone | + +------+ + | Deondre Landis MD | PCP | | + +------+ + Reason for Visit + + + | Reason | Comments | + + + | Telephone follow-up | 12/30/14 | + + + Encounter Details +--------+ + + + + | Date | Type | Department | Care Team | Description | +--------+ + + + + | 12/31/ | Telephone | Endoscopic | Rubin Lorenzo | Telephone follow-up | | 2014 | | Procedural Unit at | MD Doris [address] | (12/30/14) | | | | [address] | [facility] | | | | | [address] | [place], [place] | | | | | [address] [address], | [address] | | | | | [address] [place] [address], | [phone] | | | | | [place] [address] | | | | | | [phone] | | | +--------+ + + + [...]
--- OUTSIDE RECORDS SUMMARY | ~2020-01-10 | XMS | Encounter Summary ---
Demographics + + + | Address | [address] | | | [place] [address] | + + + | Home Phone | | + + + | Preferred Language | Unknown | + + + | Marital Status | | + + + | Jainism Affiliation | NON | + + + | Race | White | + + + | Ethnic Group | Not or | + + + Author + + + | Author | [facility] | + + + | Organization | [facility] | + + + | Address | Unknown | + + + | Phone | Unavailable | + + + Support + + + + + | Name | Relationship | Address | Phone | + + + + + | Selena Jimenez | ECON | [address] | | | | | [place] | | | | | [address] | | + + + + + | Ronny Rene | ECON | Unknown | | + + + + + | Char Woodard | ECON | Unknown | | + + + + + Care Team Providers + +------+ + | Care Storage Specialist Name | Role | Phone | + +------+ + | Deondre Landis MD | PCP | | + +------+ + Encounter Details +--------+ + + + + | Date | Type | Department | Care Team | Description | +--------+ + + + + | 04/15/ | Hospital | Radiology/Imaging | Vijay Akbar MD | | | 2017 | Encounter | Lab at [facility] [address] | [address] | | | | | Page [facility] | Latesha [facility], | | | | | [facility] and | [place] [address] | | | | | [place] [address], | [phone] | | | | | [facility] Floor | | | | | | [place], [place] | | | | | | [address] | | | | | | [phone] | | | +--------+ + + + [...] + +-------+---+---+ + + | Comments: suny moutamikayla pure mint leaves snuff (nicotine free) | [...] + +--------+ + + + | X-RAY CHEST 2 VIEW | Routin | 04/15/2017 | Cough | Results for this | | | e | 1:09 PM | | procedure are in the | | | | PDT | | results section. | + +--------+ + + + documented in this encounter Results X-RAY CHEST 2 VIEW (04/15/2017 1:09 PM PDT) + + | Specimen | + + | | + + + + + | Narrative | Performed At | + + + | EXAM: CHEST 2 VIEWS HISTORY: Persistent cough COMPARISON: | [facility] | | Outside CT 07/03/2015 FINDINGS: Changes of prior sternotomy | RADIOLOGY VOICE | | as before. Heart size is normal and unchanged. The hiatal hernia | RECOGNITION | | noted, changes of prior gastric pull-through noted. The lungs are | | | clear. There is no pulmonary edema. No pleural effusion. No acute | | | osseous abnormality. IMPRESSION: Clear lungs. I have | | | personally reviewed the images and, if necessary, edited the report. | | | I agree with the report as now presented. | | + + + + + | Procedure Note | + + | Service Account, [employer] [facility] - 04/15/2017 1:51 PM PDT EXAM: CHEST 2 | | VIEWS HISTORY: Persistent coughCOMPARISON: Outside CT 07/03/2015FINDINGS: Changes of | | prior sternotomy as before. Heart size is normal and unchanged. The hiatal hernia noted, | | changes of prior gastric pull-through noted. The lungs are clear. There is no pulmonary | | edema. No pleural effusion. No acute osseous abnormality.IMPRESSION: Clear lungs.I have | | personally reviewed the images and, if necessary, edited the report. I agree with the | | report as now presented. | | | |Changes of prior sternotomy as before. Heart size is normal and unchanged. The hiatal herni a noted, changes of prior gastric pull-through noted. The lungs are clear. There is no pulmo nary edema. No pleural effusion. No acute osseous abnormality. | | | |IMPRESSION: | | | |Clear lungs. | | | | | |I have [...] + | Diagnosis | + + | Cough | + + documented in this encounter"
--- OUTSIDE RECORDS SUMMARY | ~2020-01-10 | XMS | Encounter Summary ---
Demographics + + + | Address | [address] | | | [place] [address] | + + + | Home Phone | | + + + | Preferred Language | Unknown | + + + | Marital Status | | + + + | Yazidi Affiliation | NON | + + + | Race | White | + + + | Ethnic Group | Not or | + + + Author + + + | Author | [facility] | + + + | Organization | [facility] | + + + | Address | Unknown | + + + | Phone | Unavailable | + + + Support + + + + + | Name | Relationship | Address | Phone | + + + + + | Selena Jimenez | ECON | [address] | | | | | [place] | | | | | [address] | | + + + + + | Ronny Rene | ECON | Unknown | | + + + + + | Char Woodard | ECON | Unknown | | + + + + + Care Team Providers + +------+ + | Care Lead Applications Developer Name | Role | Phone | + +------+ + | Doendre Landis MD | PCP | | + +------+ + Encounter Details +--------+ + + + + | Date | Type | Department | Care Team | Description | +--------+ + + + + | 11/22/ | Resource Technician | Digestive Health | Rubin Lorenzo | Cheema's esophagus | | 2015 | | Center at [facility] [address] | MD Doris [address] | (Primary Dx) | | | | [address] [facility] | [facility] | | | | | [facility] and | [place], [place] | | | | | [place] [address] | [address] | | | | | [place], [place] | [phone] | | | | | [address] | | | | | | [phone] | | | +--------+ + + + [...] | + +--------+ + + + | PATHOLOGY CONSULT - | Routin | 11/26/2014 | Cheema's | Results for this | | REVIEW OUTSIDE | e | | esophagus | procedure are in the | | SLIDES | | | | results section. | + +--------+ + + + documented in this encounter Results PATHOLOGY CONSULT - REVIEW OUTSIDE SLIDES (11/26/2014) + + + + + + | Component | Value | Ref Range | Performed | Pathologist | | | | | At | Signature | + + + + + + | PATHOLOGY | SOURCE OF SPECIMEN:A | | [facility] | | | CONSULT - | Duodenum, biopsy; | | DEPARTMENT | | | SLIDES | antrum, biopsy; distal | | OF | | | | esophagus,biopsy; | | PATHOLOGY | | | | Cheema's, biopsy | | | | | | Materials | | | | | | Received:Referring | | | | | | Institution: [facility] | | | | | [facility] | | | | | | [facility] [place], [place] | | | | | | [id number] Accession | | | | | | Number: [id number] | | | | | | Collection Date: | | | | | | 10/17/2014Sublabeled | | | | | | H&E | | | | | | IHC A to D | | | | | | 4 | | | | | | 2 Final | | | | | | Pathologic | | | | | | Diagnosis:Multiple | | | | | | specimens ([id number], | | | | | | 10/17/14):Duodenum, | | | | | | biopsy (sublabeled A): | | | | | | - Duodenal mucosa | | | | | | with no diagnostic | | | | | | abnormalityStomach, | | | | | | antrum, biopsy | | | | | | (sublabeled B): - | | | | | | Antral mucosa with no | | | | | | diagnostic | | | | | | abnormalityDistal | | | | | | esophagus, biopsy | | | | | | (sublabeled C): - | | | | | | Gastric type mucosa with | | | | | | intestinal metaplasia | | | | | | and focal high | | | | | | gradedysplasia - | | | | | | See commentEsophagus, | | | | | | biopsy (sublabeled D):- | | | | | | Squamocolumnar | | | | | | junctional mucosa with | | | | | | erosion, inflammation, | | | | | | and reactiveepithelial | | | | | | changes - No | | | | | | intestinal metaplasia or | | | | | | dysplasia identified | | | | | | Comment: We | | | | | | appreciate the | | | | | | opportunity to review | | | | | | this case and agree | | | | | | withthe previously | | | | | | rendered diagnoses. | | | | | | Provided Alcian blue | | | | | | stains arereviewed and | | | | | | support the above | | | | | | diagnoses. Specimen C | | | | | | reviewed with | | | | | | Dr.Christian Morrell | | | | | | with agreement. | | | | | | Case seen by:Nyasia | | | | | | Brittany Graham/Surgical | | | | | | Pathology FellowTeresag Olga | | | | | | Shree, | | | | | | MAshvin/PathologistThese | | | | | | slides will be returned | | | | | | at a later | | | | | | dateT:11/27/14 | | | | | | Clinical History:The | | | | | | patient is a 74-year-old | | | | | | male with a history of | | | | | | Cheema's esophagus. | | | | | | My electronic | | | | | | signature indicates that | | | | | | I have personally | | | | | | reviewed alldiagnostic | | | | | | slides, the gross and/or | | | | | | microscopic portion of | | | | | | thisreport and | | | | | | formulated the final | | | | | | diagnosis. | | | | | | Rendering Diagnostician: | | | | | | Rambo Swann | | | | | | MAshvinPathologistElectroni | | | | | | bridget Signed 11/29/2014 | | | | | | 11:32AM | | | | + + + + + + + + | Specimen | + + | | + + + + + + + | Performing | Address | City/State/Zipcode | Phone Number | | Organization | | | | + + + + + | [facility] | [address] | [place] [address] | | | PATHOLOGY | [address] | | | + + + + + documented in this encounter Visit Diagnoses + + | Diagnosis | + + | Cheema's esophagus - Primary | + + documented in this encounter"
--- OUTSIDE RECORDS SUMMARY | ~2020-01-10 | XMS | Encounter Summary ---
Demographics + + + | Address | [address] | | | [place] [address] | + + + | Home Phone | | + + + | Preferred Language | Unknown | + + + | Marital Status | | + + + | Rastafari Affiliation | NON | + + + [...] [place] | | | | | [address] | | + + + + + | Ronny Rene | ECON | Unknown | | + + + + + | Char Woodard | ECON | Unknown | | + + + + + Care Team Providers + +------+ + | Care Environmental Engineering Assistant Name | Role | Phone | + +------+ + | Deondre Landis MD | PCP | | + +------+ + Reason for Visit + + + | Reason | Comments | + + + | Radiology Order | | + + + Encounter Details +--------+ + + + + | Date | Type | Department | Care Team | Description | +--------+ + + + + | 05/14/ | Telephone | Digestive Health | Vijay Akbar MD | Radiology Order | | 2014 | | Center at [facility] [address] | [address] | | | | | Page [facility] | [facility] | | | | | [facility] and | [place] [address] | | | | | [place] [address] | [phone] | | | | | [place], [place] | | | | | | [address] | | | | | | [phone] | | | +--------+ + + + [...]
--- OUTSIDE RECORDS SUMMARY | ~2020-01-10 | XMS | Encounter Summary ---
Demographics + + + | Address | [address] | | | [place] [address] | + + + | Home Phone [...] [place] | | | | | [address] | | + + + + + | Ronny Rene | ECON | Unknown | + | + + + + + | Char Woodard | ECON | Unknown | | + + + + + Care Team Providers + +------+ + | Care Sales Representative Sales Manager Name | Role | Phone | + +------+ + | David Ferrera MD | PCP | | + +------+ + Encounter Details +--------+ + + + + | Date | Type | Department | Care Team | Description | +--------+ + + + + | 11/08/ | Document-Sc | Health Information | Unknown . | | | 2018 | ann | Services [address] | | | | | | [address] | | | | | | Mailcode: [id number] | | | | | | [facility] | | | | | | [place], [place] | | | | | | [address] | | | | | | [phone] | | | +--------+ + + + [...] + +-------+---+---+ + + | Comments: suny moangeles pure mint leaves snuff (nicotine free) | [...]
--- OUTSIDE RECORDS SUMMARY | ~2020-01-10 | XMS | Encounter Summary ---
Demographics + + + | Address | [address] | | | [place] [address] | + + + | Home Phone | | + + + | Preferred Language | Unknown | + + + | Marital Status | | + + + | Alevism Affiliation | NON | + + + | Race | White | + + + | Ethnic Group | Not or | + + + Author + + + | Author | [facility] | + + + | Organization | [facility] | + + + | Address | Unknown | + + + | Phone | Unavailable | + + + Support + + + + + | Name | Relationship | Address | Phone | + + + + + | Selena Jimenez | ECON | [address] | | | | | [place] | | | | | [address] | | + + + + + | Ronny Rene | ECON | Unknown | | + + + + + | Char Woodard | ECON | Unknown | | + + + + + Care Team Providers + +------+ + | Care Roller Man Name | Role | Phone | + [...] | +--------+ + + + + | 03/24/ | Abstract | Digestive Health | Vijay Akbar MD | Medical Records | | 2016 | | Center [place] [address] [address] | [address] | Review | | | | [facility] | [facility], | | | | | [facility] and | [place] [address] | | | | | [facility] [place] [address] | [phone] | | | | | [place], [place] | | | | | | [address] | | | | | | [phone] | | | +--------+ + + + [...]
--- OUTSIDE RECORDS SUMMARY | ~2020-01-10 | XMS | Encounter Summary ---
Demographics + + + | Address | [address] | | | [place] [address] | + + + | Home Phone | | + + + | Preferred Language | Unknown | + + + | Marital Status | | + + + | Alevism Affiliation | Unknown | + + + | Race | Unknown | + + + | Ethnic Group | Unknown | + + + Author + + + | Author | [facility] | | | and Tobyana | + + + | Organization | [facility] | | | and Tobyana | + + + | Address | Unknown | + + + | Phone | Unavailable | + + + Support + + + + + | Name | Relationship | Address | Phone | + + + + + | Selena Jimenez | ECON | [id number] | | | | | [place] [address] | | + + + + + Care Team Providers + +------+ + | Care Fibrous Plasterer Name | Role | Phone | + +------+ + | Mingo Burgos DO | PCP | | + +------+ + Reason for Visit +--------+ + | Reason | Comments | +--------+ + | Other | CHART NOTES FROM 07-25-13 FAXED | +--------+ + Encounter Details +--------+ + + + + | Date | Type | Department | Care Team | Description | +--------+ + + + + | 07/27/ | Telephone | [facility] | CiaranbetzaidaconcettaBernice, | Other (CHART NOTES | | 2012 | | [place] | [address] | FROM 07-25-13 FAXED) | | | | [place], | [place], | | | | | [place] [address] | [place] [address] | | | | | [phone] | [phone] | | | | | | | | +--------+ + + + + Social History + +-------+ +--------+------+ | Tobacco Use | Types | Packs/Day | Years | Date | | | | | Used | | + +-------+ +--------+------+ | Former Smoker | | | | | + +-------+ +--------+------+ + +-------+---+---+ [...] [place], | | | | | | [place] [address] | | | | | | [phone] | | | | | | | | +--------+---------+ + + + documented as of this encounter Visit Diagnoses Not on filedocumented in this encounter"
--- OUTSIDE RECORDS SUMMARY | ~2020-01-10 | XMS | Encounter Summary ---
Demographics + + + | Address | [address] | | | [place] [address] | + + + | Home Phone | | + + + | Preferred Language | Unknown | + + + | Marital Status | | + + + | Faith Affiliation | Unknown | + + + | Race | Unknown | + + + | Ethnic Group | Unknown | + + + Author + + + | Author | [facility] | | | and [place] | + + + | Organization | [facility] | | | and [place] | + + + | Address | Unknown | + + + | Phone | Unavailable | + + + Support + + + + + | Name | Relationship | Address | Phone | + + + + + | Selena Jimenez | ECON | [id number] | | | | | [place] [address] | | + + + + + Care Team Providers + +------+ + | Care Transitional Living Specialist Name | Role | Phone | [...] Description | +--------+--------+ + + + | 05/20/ | Refill | [facility] [place] | Bernice Antonio, | Medication Refill | | 2012 | | CARDIOLOGY [address] | MD [address] | | | | | [place], | [place], | | | | | [place] [address] | [place] [address] | | | | | [phone] | [phone] | | | | | | | [...] | | | | | | [place] [address] | | | | | | [phone] | | | | | | | | +--------+---------+ + + + documented as of this encounter Visit Diagnoses Not on filedocumented in this encounter"
--- OUTSIDE RECORDS SUMMARY | ~2020-01-10 | XMS | Encounter Summary ---
Demographics + + + | Address | [address] | | | [place] [address] | + + + | Home Phone [...] + + | Author | [facility] | + + + | Organization | [facility] | + + + | Address | Unknown | + + + | Phone | Unavailable | + + + Support + + + + + | Name | Relationship | Address | Phone | + + + + + | Selena Jimenez | ECON | [address] | | | | | [place] | | | | | [address] | | + + + + + | Ronny Rene | ECON | Unknown | | + + + + + | Char Woodard | ECON | Unknown | | + + + + + Care Team Providers + +------+ + | Care Fluid Jet Cutter Operator Name | Role | Phone | [...] | | | | | Esophageal | Rubin George, | MD Vijay | | | | | adenocarcino | [address] | [address] | | | | | sly ([facility]) | [address] | [address] | | | | | Procedures | [address]atesha Soliz | Martínez Perry, | | | | | CONSULT TO | [place], [place] | [place] | | | | | SURGERY - | [address] | [address] | | | | | GENERAL | Phone: | Phone: | | | | | | [phone] | [phone] | | | | | | Fax: | Fax: | | | | | | [phone] | [phone] | +--------+--------+ + + + + Encounter Details +--------+ + + + + | Date | Type | Department | Care Team | Description | +--------+ + + + + | 01/31/ | Entertainment Centre Manager | Digestive Health | Rubin Lorenzo | 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
--- OUTSIDE RECORDS SUMMARY | ~2020-01-10 | XMS | Encounter Summary ---
Demographics + + + | Address | [address] | | | [place] [address] | + + + | Home Phone | | + + + | Preferred Language | Unknown | + + + | Marital Status | | + + + | Church Affiliation | NON | + + + | Race | White | + + + | Ethnic Group | Not or | + + + Author + + + | Author | [facility] | + + + | Organization | [facility] | + + [...] [place] | | | | | [address] | | + + + + + | Ronny Rene | ECON | Unknown | | + + + + + | Char Woodard | ECON | Unknown | | + + + + + Care Team Providers + +------+ + | Care Resistor Coater Name | Role | Phone | + +------+ + | Deondre Landis MD | PCP | | + +------+ + Reason for Visit + + + | Reason | Comments | + + + | Telephone follow-up | 01/31/15 | + + + Encounter Details +--------+ + + + + | Date | Type | Department | Care Team | Description | +--------+ + + + + | 02/03/ | Telephone | Endoscopic | Rubin Lorenzo | Telephone follow-up | | 2014 | | Procedural Unit at | MD Doris [address] | (01/31/15) | | | | [address] | [facility] | | | | | [address] | [place], [place] | | | | | [address], | [address] | | | | | [address] [place] [address], | [phone] | | | | | [place] [address] | | | | | | [phone] | | | +--------+ + + + [...]
--- OUTSIDE RECORDS SUMMARY | ~2020-01-10 | XMS | Encounter Summary ---
Demographics + + + | Address | [address] | | | [place] [address] | + + + | Home Phone | | + + + | Preferred Language | Unknown | + + + | Marital Status | | + + + | Congregation Affiliation | NON | + + + [...] [place] | | | | | [address] | | + + + + + | Ronny Rene | ECON | Unknown | | + + + + + | Char Woodard | ECON | Unknown | | + + + + + Care Team Providers + +------+ + | Care Soakers Supervisor Name | Role | Phone | + +------+ + | Deondre Landis MD | PCP | | + +------+ + Reason for Visit + + + | Reason | Comments | + + + | Postoperative visit | | + + + Encounter Details +--------+---------+ + + + | Date | Type | Department | Care Team | Description | +--------+---------+ + + + | 04/25/ | Office | Digestive Health | Vijay Akbar MD | Anastomotic leak | | 2015 | Visit | Center at [facility] [address] | [address] | following | | | | [facility] | Latesha [facility], | esophagectomy | | | | for Health and | [place] [address] | (Primary Dx) | | | | [facility], [facility] 2 | [phone] | | | | | [place], [place] | | | | | | [address] | | | | | | [phone] | | | +--------+---------+ + + + [...] + + + | Blood Pressure | 138/74 | 04/25/2015 12:58 PM | | | | | PDT | | + + + + + | Pulse | 78 | 04/25/2015 12:58 PM | | | | | PDT | | + + + + + | Temperature | 36.4 C (97.5 F) | 04/25/2015 12:58 PM | | | | | PDT | | + + + + + | Respiratory Rate | 16 | 04/25/2015 12:58 PM | | | | | PDT | | + + + + + | Oxygen Saturation | - | - | | + + + + + | Inhaled Oxygen | - | - | | | Concentration | | | | + + + + + | Weight | 75.8 kg (167 lb 1.6 | 04/25/2015 12:58 PM | | | | oz) | PDT | | + + + + + | Height | 177.8 cm (5' 10") | 04/25/2015 12:58 PM | | | | | PDT | | + + + + + | Body Mass Index | 23.98 | 04/25/2015 12:58 PM | | | | | PDT | | + + + + + documented in this encounter Progress Notes Eric Conley MD - 04/25/2015 3:03 PM [facility]: 04/25/2015 Attending Physician: MD Raffy Author: Eric Dey MD Chief Complaint: post Esophagectomy HPI: Junaid Jimenez is a 75 y.o. 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 He is post transhiatal esophagectomy (03/27/15) c omplicated with an anastomotic leak. Evaluated 2 weeks ago with an esophagram showing improv ement of the leak. Today he comes to clinic for evaluation and repeat esophagram. Subjective: Denies fever, chills, nausea, bloating, abdominal pain Walking every day. Normal energy levels. Physical Exam: Last Vitals: BP 138/74 | Pulse 78 | Temp (Src) 36.4 C (97.5 F) (Oral) | RR 16 | Ht 1.77 8 m (5' 10") | Wt 75.796 kg (167 lb 1.6 oz) | BMI 23.98 kg/(m^2) General: NAD, Awake, alert. Respiratory: CTAB, no rales or rhonchi. Neck: Incision well healed. No more drainage from Malathi drain. Stitches and [place] remov ed. Cardiovascular: RRR, no m/r/g. Abdominal: Soft, NT, ND, no peritoneal signs. Incisions well healed. Jejunostomy site inta ct. Extremities: WWP, no edema. Distal pulses 2+ and symmetric Imaging COMPARISON: 04/11/15 TECHNIQUE: Omnipaque-300 contrast was given to the patient to drink under fluoroscopic evaluation in the standing position. Bilateral shallow oblique views were obtained. Following this, thin barium was given to the patient to drink. The procedure was performed by Dr. Toma Koch, faculty radiologist. Total fluoroscopic time was 2 minutes and 3 seconds. FINDINGS: Initial customer service agent image demonstrates a Malathi drain at the thoracic inlet. The gastric conduit is nondistended. Contrast passed freely from the hypopharynx through the gastric pull-through proximal anastomosis. No stricture was seen. The previously seen proximal anterior left small blind-ending leak at the level of the clavicular heads is no longer visualized. It has radiographically resolved. IMPRESSION: No anastomotic leak is present. Attending Radiologists: TOMA KOCH MD Assessment and plan: Junaid Jimenez is a 75 y.o. male post transhiatal esophagectomy for eso phageal cancer complicated with an anstomtic leak which now has healed. His neck incision sh ows no signs of residual infection and his leak has healed according to his recent esophagra m. We advanced his diet to 30 mL of liquids x 1 day , 60 mL x2 day and 90 mL for 2 weeks. We instructed him how to swallow with aspiration precautions and explained the dietary restric tions. He should continue with the same rate of tube feeds until he is seen in clinic again. Plan to return to clinic in 2-3 weeks. - ERIC FRENCH MD MIS Fellow [facility], Dept. of Surgery Pager [phone] documented in t his encounter Plan of Treatment Not on filedocumented as of this encounter Visit Diagnoses + + | Diagnosis | + + | Anastomotic leak following esophagectomy - Primary Other digestive system | | complications | + + documented in this encounter
--- OUTSIDE RECORDS SUMMARY | ~2020-01-10 | XMS | Encounter Summary ---
Demographics + + + | Address | [address] | | | [place] [address] | + + + | Home Phone | | + + + | Preferred Language | Unknown | + + + | Marital Status | | + + + | Congregational Affiliation | NON | + + + [...] [place] | | | | | [address] | | + + + + + | Ronny Edgard | ECON | Unknown | | + + + + + | Char Woodard | ECON | Unknown | | + + + + + Care Team Providers + +------+ + | Care Hay Rake Operator Name | Role | Phone | [...] Closed | | Radiology | Diagnoses | Edwin, | Rad Ct Scan | | | | | Hepatic | Christopher | Ch[address]1 [address] | | | | | lesion | MD Crystal [address] | [address] | | | | | Procedures | [address] | [facility] | | | | | CT | [facility] | [facility] and | | | | | MULTIPHASE | Rd | Healing, | | | | | LIVER AND | | Building [address], | | | | | [address] | [address] | 3rd Floor | | | | | CONTRAST MA | Phone: | [place], [place] | | | | | CT ABD&PELV | [phone] | [address] | | | | | 1+ | Fax: | Phone: | | | | | SECTION/REGN | [phone] | [phone] | | | | | S | | Fax: | | | | | | | [phone] | +--------+--------+ + + + + Reason [...] | | | | | | | [facility] | | | | | | | Health and | | | | | | | Healing, | | | | | | | Building 2 | | | | | | | [place], [place] | | | | | | | [address] | | | | | | | Phone: | | | | | | | [phone] | | | | | | | Fax: | | | | | | | [phone] | +--------+--------+ + + + + Encounter Details +--------+---------+ + + + | Date | Type | Department | Care Team | Description | +--------+---------+ + + + | 09/16/ | Office | Digestive Health | Char Castillo, | Abscess, liver | | 2017 | Visit | Center at [facility] [address] | MD [address] | (Primary Dx); | | | | [address] [facility] | Ave | Hepatic lesion | | | | for Health and | [address] | | | | | Healing, Building [address] | [phone] | | | | | [place], [place] | | | | | | [address] | | | | | | [phone] | | | +--------+---------+ + + + [...] of intrahepatic IVC. He was discharged to [facility] on 09/06. INTERVAL HISTORY: He has been [...] Ronak Pineda MD Department of Surgery, PGY-2 [facility] ADDENDUM I personally interviewed the patient, performed [...] Char Castillo MD [facility] 6TH FLOOR [address] Mailcode: [place] [address] documented in this encounter Plan of Treatment [...]
--- OUTSIDE RECORDS SUMMARY | ~2020-01-10 | XMS | Encounter Summary ---
Demographics + + + | Address | [address] | | | [place] [address] | + + + | Home Phone | | + + + | Preferred Language | Unknown | + + + | Marital Status | | + + + | Scientologist Affiliation | Unknown | + + + | Race | Unknown | + + + | Ethnic Group | Unknown | + + + Author + + + | Author | [facility] | | | and [place]yana | + + + | Organization | [facility] | | | and [place] | + + + | Address | Unknown | + + + | Phone | Unavailable | + + + Support + + + + + | Name | Relationship | Address | Phone | + + + + + | Selena Jimenez | ECON | [id number] | | | | | [place] [address] | | + + + + + Care Team Providers + +------+ + | Care Underwriter Name | Role | Phone | + [...] Description | +--------+--------+ + + + | 11/25/ | Refill | [facility] [place] | Bernice Antonio, | Medication Refill | | 2016 | | CARDIOLOGY [address] | MD [address] | | | | | [place], | [place], | | | | | [place] [address] | [place] [address] | | | | | [phone] | [phone] | | | | | | | [...] [place], | | | | | | [place] [address] | | | | | | [phone] | | | | | | | | +--------+---------+ + + + documented as of this encounter Visit Diagnoses Not on filedocumented in this encounter"
--- OUTSIDE RECORDS SUMMARY | ~2020-01-10 | XMS | Encounter Summary ---
Demographics + + + | Address | [address] | | | [place] [address] | + + + | Home Phone | | + + + | Preferred Language | Unknown | + + + | Marital Status | | + + + | Episcopalian Affiliation | NON | + + + [...] [place] | | | | | [address] | | + + + + + | Ronny Rene | ECON | Unknown | | + + + + + | Char Woodard | ECON | Unknown | | + + + + + Care Team Providers + +------+ + | Care Insurance Actuary Name | Role | Phone | + +------+ + | Deondre Landis MD | PCP | | + +------+ + Reason for Visit + + + | Reason | Comments | + + + | Prescription | | | Clarification | | + + + Encounter Details +--------+ + + + + | Date | Type | Department | Care Team | Description | +--------+ + + + + | 04/11/ | Telephone | Digestive Health | Vijay Akbar MD | Prescription | | 2014 | | Center at [facility] [address] | [address] | Clarification | | | | [address] [facility] | [facility] | | | | | [facility] and | [place] [address] | | | | | [place] [address] | [phone] | | | | | [place], [place] | | | | | | [address] | | | | | | [phone] | | | +--------+ + + + [...]
--- OUTSIDE RECORDS SUMMARY | ~2020-01-10 | XMS | Encounter Summary ---
Demographics + + + | Address | [address] | | | [place] [address] | + + + | Home Phone | | + + + | Preferred Language | Unknown | + + + | Marital Status | | + + + | Yarsani Affiliation | NON | + + + | Race | White | + + + | Ethnic Group | Not or | + + + Author + + + | Author | [facility] | + + + | Organization | [facility] | + + + | Address | Unknown | + + + | Phone | Unavailable | + + + Support + + + + + | Name | Relationship | Address | Phone | + + + + + | Selena Jimenez | ECON | [address] | | | | | [place] | | | | | [address] | | + + + + + | Ronny Rene | ECON | Unknown | | + + + + + | Char Woodard | ECON | Unknown | | + + + + + Care Team Providers + +------+ + | Care Outside Sales Name | Role | Phone | + +------+ + | Deondre Landis MD | PCP | | + +------+ + Reason for Visit + + + | Reason | Comments | + + + | Refill Request | omeprazole 40mg | + + + Encounter Details +--------+--------+ + + + | Date | Type | Department | Care Team | Description | +--------+--------+ + + + | 02/10/ | Refill | Digestive Health | Vijay Akbar MD | Refill Request | | 2017 | | Center at [facility] [address] | [address] | (omeprazole 40mg) | | | | [facility] | [facility], | | | | | [facility] and | [place] [address] | | | | | [address] | [phone] | | | | | [place], [place] | | | | | | [address] | | | | | | [phone] | | | +--------+--------+ + + + [...]
--- OUTSIDE RECORDS SUMMARY | ~2020-01-10 | XMS | Encounter Summary ---
Demographics + + + | Address | [address] | | | [place] [address] | + + + | Home Phone | | + + + | Preferred Language | Unknown | + + + | Marital Status | | + + + | Scientologist Affiliation | NON | + + + [...] [place] | | | | | [address] | | + + + + + | Ronny Rene | ECON | Unknown | | + + + + + | Char Woodard | ECON | Unknown | | + + + + + Care Team Providers + +------+ + | Care Ham Stringer Name | Role | Phone | + [...] 2014 | Event | [address] | [address] | | | | | [facility] | [address] | | | | | Hospital Admitting | [place], [place] | | | | | Desk Located on the | [address] | | | | | 9th floor | [phone] | | | | | [place], [place] | | | | | | [address] | Christoph Nroman MD | | | | | | [address] | | | | | | [address] | | | | | | [place], [place] | | | | | | [address] | | | | | | [phone] | | | | | | | | +--------+ + + + + Anesthesia Record + + + + + | Procedure Name | Responsible | Anesthesia Start | Anesthesia Stop Time | | | Anesthesiologist | Time | | + + + + + | LEFT NECK WASHOUT | Tea Gutiérrez MD | 04/02/15 2373 | 04/02/15 1702 | | (Left Abdomen) [...]
--- OUTSIDE RECORDS SUMMARY | ~2020-01-10 | XMS | Encounter Summary ---
Demographics + + + | Address | [address] | | | [place] [address] | + + + | Home Phone | | + + + | Preferred Language | Unknown | + + + | Marital Status | | + + + | Restoration Affiliation | NON | + + + | Race | White | + + + | Ethnic Group | Not or | + + + Author + + + | Author | [facility] | + + + | Organization | [facility] | + + + | Address | Unknown | + + + | Phone | Unavailable | + + + Support + + + + + | Name | Relationship | Address | Phone | + + + + + | Selena Jimenez | ECON | [address] | | | | | [place] | | | | | [address] | | + + + + + | Ronny Rene | ECON | Unknown | | + + + + + | Char Woodard | ECON | Unknown | | + + + + + Care Team Providers + +------+ + | Care Wafer Polishing Lead Worker Name | Role | Phone | + +------+ + | Deondre Landis MD | PCP | | + +------+ + Reason for Visit + + + | Reason | Comments | + + + | Prior Authorization | Omeprazole suspension | | Request | | + + + Encounter Details +--------+ + + + + | Date | Type | Department | Care Team | Description | +--------+ + + + + | 04/14/ | Abstract | Digestive Health | Vijay Akbar MD | Prior Authorization | | 2014 | | Center at [facility] [address] | [address] | Request (Omeprazole | | | | [facility] | [address] [place], | suspension) | | | | for Health and | [place] [address] | | | | | [facility], [facility] 2 | [phone] | | | | | [place], [place] | | | | | | [address] | | | | | | [phone] | | | +--------+ + + + [...] + +-------+---+---+ + + | Comments: suny moutain pure mint leaves snuff (nicotine free) [...] documented as of this encounter Progress Notes Cathryn Martinez MA - 04/14/2015 8:57 [facility] Medication Prior Authorization [place] Started: 04/14/2015 Medication: Omeprazole suspension Insurance Company: [employer] Phone number: [phone] [place] Completed: APPROVED Approval Dates: 04/12/15-05/13/15 8 :57 AM PDTdocumented in this encounter Plan of Treatment Not on filedocumented as of this encounter Visit Diagnoses Not on filedocumented in this encounter"
--- OUTSIDE RECORDS SUMMARY | ~2020-01-10 | XMS | Encounter Summary ---
Demographics + + + | Address | [address] | | | [place] [address] | + + + | Home Phone | | + + + | Preferred Language | Unknown | + + + | Marital Status | | + + + | Restoration Affiliation | Unknown | + + + | Race | Unknown | + + + | Ethnic Group | Unknown | + + + Author + + + | Author | [facility] | | | and [place]yana | + + + | Organization | [facility] | | | and [...] | | | | | [place] [address] | | + + + + + Care Team Providers + +------+ + | Care Ammonia Operator Name | Role | Phone | + +------+ + | Mingo Burgos DO | PCP | | + +------+ + Reason for Visit + + + | Reason | Comments | + + + | Results, Imaging | | + + + Encounter Details +--------+ + + + + | Date | Type | Department | Care Team | Description | +--------+ + + + + | 07/02/ | Telephone | [facility] [place] | Roderick Gill | Results, Imaging | | 2013 | | PHYSIATRY [address] | T, MD [address] | | | | | [address] | [place] | | | | | [place], [place] | [address] | | | | | [address] | | | | | | [phone] | | | +--------+ + + + [...] [place], | | | | | | [place] [address] | | | | | | [phone] | | | | | | | | +--------+---------+ + + + documented as of this encounter Visit Diagnoses Not on filedocumented in this encounter"
--- OUTSIDE RECORDS SUMMARY | ~2020-01-10 | XMS | Encounter Summary ---
Demographics + + + | Address | [address] | | | [place] [address] | + + + | Home Phone | | + + + | Preferred Language | Unknown | + + + | Marital Status | | + + + | Caodaism Affiliation | NON | + + + | Race | White | + + + | Ethnic Group | Not or | + + + Author + + + | Author | [facility] | + + + | Organization | [facility] | + + + | Address | Unknown | + + + | Phone | Unavailable | + + + Support + + + + + | Name | Relationship | Address | Phone | + + + + + | Selena Jimenez | ECON | [address] | | | | | [place] | | | | | [address] | | + + + + + | Ronny Rene | ECON | Unknown | | + + + + + | Char Woodard | ECON | Unknown | | + + + + + Care Team Providers + +------+ + | Care Manager Athletics Name | Role | Phone | + +------+ + | Deondre Landis MD | PCP | | + +------+ + Reason for Visit + + + | Reason | Comments | + + + | Feeding Tube Problem | | + + + Encounter Details +--------+ + + + + | Date | Type | Department | Care Team | Description | +--------+ + + + + | 05/01/ | Telephone | Digestive Health | Vijay Akbar MD | Feeding Tube Problem | | 2015 | | Center at [facility] [address] | [address] | | | | | [facility] | [facility] | | | | | [facility] and | [place] [address] | | | | | [facility] [place] [address] | [phone] | | | | | [place], [place] | | | | | | [address] | | | | | | [phone] | | | +--------+ + + + [...]
--- OUTSIDE RECORDS SUMMARY | ~2020-01-10 | XMS | Encounter Summary ---
Demographics + + + | Address | [address] | | | [place] [address] | + + + | Home Phone [...] | + + + + + | eSlena Jimenez | ECON | [address] | | | | | [place] | | | | | [address] | | + + + + + | Ronny Rene | ECON | Unknown | | + + + + + | Char Woodard | ECON | Unknown | | + + + + + Care Team Providers + +------+ + | Care Factory Helper Name | Role | Phone | [...] | 2019 | Visit | [facility] | [address] | Dx) | | | | for Health and | [facility] | | | | | Healing [address] | [place], [place] | | | | | [facility] for | [address] | | | | | Health and Healing, | [phone] | | | | | [facility] | | | | | | [place], [place] | | | | | | [address] | | | | | | [phone] | | | +--------+---------+ + + + [...] PDTDate: 2019 Attending Surgeon: Glenn Siegel M.D. Career Manager(s): Manolo Gallego MD Preoperative Diagnosis(es): right [...] Note | + + | Service Account, [employer] Res In Interface - 03/12/2019 10:54 AM [...]
--- OUTSIDE RECORDS SUMMARY | ~2020-01-10 | XMS | Encounter Summary ---
Demographics + + + | Address | [address] | | | [place] [address] | + + + | Home Phone | | + + + | Preferred Language | Unknown | + + + | Marital Status | | + + + | Shinto Affiliation | NON | + + + [...] [place] | | | | | [address] | | + + + + + | Ronny Rene | ECON | Unknown | | + + + + + | Char Woodard | ECON | Unknown | | + + + + + Care Team Providers + +------+ + | Care Transportation Aid Name | Role | Phone | + [...] Results | | 2017 | | Center [place] [address] [id number] | [phone] | | | | | [facility] | [facility] | | | | | [facility] and | [place] [address] | | | | | [place] [address] | [phone] | | | | | [place], [place] | | | | | | [address] | | | | | | [phone] | | | +--------+ + + + [...]
--- OUTSIDE RECORDS SUMMARY | ~2020-01-10 | XMS | Encounter Summary ---
Demographics + + + | Address | [address] | | | [place] [address] | + + + | Home Phone | | + + + | Preferred Language | Unknown | + + + | Marital Status | | + + + | Druze Affiliation | NON | + + + | Race | White | + + + | Ethnic Group | Not or | + + + Author + + + | Organization | Unknown | + + + | Address | Unknown | + + + | Phone | Unavailable | + + + Support + + + + + | Name | Relationship | Address | Phone | + + + + + | Selena Jimenez | ECON | [address] | | | | | [place] | | | | | [address] | | + + + + + | Ronny Rene | ECON | Unknown | | + + + + + | Char Woodard | ECON | Unknown | | + + + + + Care Team Providers + +------+ + | Care Director Machine Name | Role | Phone | + +------+ + | David Ferrera MD | PCP | | + +------+ + Encounter Details +--------+--------+ + + + | Date | Type | Department | Care Team | Description | +--------+--------+ + + + | 03/12/ | Travel | | | | | 2018 | | | | | +--------+--------+ + [...]
--- OUTSIDE RECORDS SUMMARY | ~2020-01-10 | XMS | Encounter Summary ---
Demographics + + + | Address | [address] | | | [place] [address] | + + + | Home Phone | | + + + | Preferred Language | Unknown | + + + | Marital Status | | + + + | Sikhism Affiliation | NON | + + + | Race | White | + + + | Ethnic Group | Not or | + + + Author + + + | Author | [facility] | + + + | Organization | [facility] | + + + | Address | Unknown | + + + | Phone | Unavailable | + + + Support + + + + + | Name | Relationship | Address | Phone | + + + + + | Selena Meredith | ECON | [address] | | | | | [place] | | | | | [address] | | + + + + + | Ronny Rene | ECON | Unknown | | + + + + + | Char Woodard | ECON | Unknown | | + + + + + Care Team Providers + +------+ + | Care Plant Health Care Technician Name | Role | Phone | [...] Description | +--------+---------+ + + + | 03/27/ | Surgery | 6A Intra Op 3181 | Vijay Akbar MD | LAPAROSCOPIC | | 2014 | | [facility] [place] | [address] | TRANSHIATAL | | | | [place] [facility] | L[place] Jesus [place], | ESOPHAGECTOMY, | | | | Hospital Admitting | [place] [address] | FEEDING JEJUNOSTOMY | | | | Desk Located on the | [phone] | TUBE PLACEMENT EGD | | | | 9th floor | | | | | | [place], [place] | | | | | | [address] | | | +--------+---------+ + + + [...] chronic 7) Knee pain, chronic 8) hx PA (myocardial infarction) 9) Hearing loss 10) Esophageal adenocarcinoma 11) Unintentional weight loss 12) Dysphagia Patient Active Problem List Diagnosis Chronic LBP Acid reflux HLD (hyperlipidemia) BP (high blood pressure) Anastomotic leak following esophagectomy GERD (gastroesophageal reflux disease) Hypertension Cheema's esophagus Back pain, chronic Knee pain, chronic hx PA (myocardial infarction) Hearing loss Esophageal adenocarcinoma Unintentional [...] Gastric Motility Qty: 180 tablet, Refills: 0 fviyhjxcbfoc-ltmi-aabtofcn oral liquid 15 mL by feeding tube [...] Vital Signs at discharge: BP: 138/68 mmHg (04/07/15 050) Pulse: 75 (04/07/15506) Resp: 22 (04/07/15506) Weight: 81.5 kg (179 lb 10.8 oz) (04/06/15 0502) Destination: Destination: Long-Term [facility] Condition on Discharge Stable Discharge POLST completed Full code Discharge Summary Completed?: Yes, 07 Apr 2015 Discharging Provider: ALE GIPSON MD Date Completed: 07 Apr 2015 Discharging Attending: Vijay Akbar MD documented in this encou nter Discharge Instructions Instructions Lizzette Krishna RN - 04/01/2015 Your nurse binder caser with [facility] is [place]; she can be reached at [phone]. documented in this encounter Medications at Time [...] PDTReport called to nurse Nupur at [facility] ([place], [place]). [phone]. Ale Conrad MD - 04/06/2015 9:01 AM [...] Neck incision intact - no surrounding erythema. Morales with mucoid output. Heart: RRR, no m/r/g [...] seen with Dr. Akbar. Ale Gipson MD [facility] Surgery R5 Pager [phone] lark, Ale Lester MD - 04/05/2015 9:29 [...] 04/05/15 0935 Last data filed at 04/05/15 0928 Gross per 24 hour Intake 1470 ml Output 2655 ml Net -[address] 330 UOP 2725 (1.4 ml/kg/hr) General: Alert, oriented, NAD Lung: Breathing even, unlabored on room air. Cough is getting stronger. Sites of prior CT c lean and dry with sutures intact. Good aeration throughout. HEENT: Neck incision intact - no surrounding erythema. Morales with mucoid output, air leak with swallow. [...] seen with Dr. Akbar. Ale Gipson MD [facility] Surgery R5 Pager [phone] Gio Ramirez MD - 04/04/2015 8:59 AM [...] once today Enoxaparin PPI Gio Lowery MD [facility], General Surgery R-1 P: [phone] lAle grant MD - 04/03/2015 4:24 PM PDT Red surgery Attending Dr Akbar S: Left neck washed out yesterday. Drainage on [...] air. 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 Status post: Trans-hiatal esophagectomy, pyloromyotomy, J tube placement, bilateral Chest tube placement, colopexy Past Medical History Diagnosis Date GERD (gastroesophageal reflux disease) HTN (hypertension) Cheema's esophagus Knee pain, chronic Back pain, chronic PA (myocardial infarction) s/p CABG x 2 Hearing [...] most activities. Mr. Meredith is satisfied with [facility] level of pain. History of chronic or [...] 12.5 mg 12.5 mg feeding tube BID qdcgvhntysim-pkib-jftlqmxh (CEROVITE) liquid 15 mL 15 mL feeding [...] and summary of old medical records (source: [facility]), as summarized in the body of the note. Personal review of laboratory results. CELSO PALMER, MSN, ACNP- Nurse Practitioner Acute Pain Service [facility] [address] [place] [address] Bebe Hung MD - 04/02/2015 7:22 PM [...] Dispo: acute care Bebe Baldwin MD Pager: [phone] Ale Gerardo A, MD - 04/02/2015 7:41 AM PDTPatient with [...] Ale Gipson MD at 015 7:44 AM DEYAOng, Celso Robins NP - 04/02/2015 7:36 AM PDT INPATIENT ADULT PAIN SERVICE NEURAXIAL BLOCK PROGRESS NOTE 04/02/2015 Author: CELSO PALMER NP POD# 6. Status post: Trans-hiatal esophagectomy, pyloromyotomy, J tube placement, bilater al Chest tube placement, colopexy Past Medical History Diagnosis Date GERD (gastroesophageal reflux disease) HTN (hypertension) Cheema's esophagus Knee pain, chronic Back pain, chronic PA (myocardial infarction) s/p CABG x 2 Hearing [...] most activities. Mr. Meredith is satisfied with [facility] level of pain. History of chronic or [...] 12.5 mg 12.5 mg feeding tube BID tvgpkwampcic-nbej-fprxuext (CEROVITE) liquid 15 mL 15 mL feeding [...] and summary of old medical records (source: [facility]), as summarized in the body of the note. Personal review of laboratory results. CELSO PALMER, MSN, ACNP- Nurse Practitioner Acute Pain Service [facility] [address] [place] [address] Bulmaro Pitt MD,MPH - 04/01/2015 6:36 PM [...] CXR at 13:37 demonstrating no pneumothorax. etcu, Jennifer, [facility] - 04/01/2015 10:24 AM PDTFormatting of this [...] CV - BPs wnl. Tachycardia improved. Hx CAD/PA - s/p CABG x 2 in 2007, [...] and preauth for [place] enoxaparin SAMANTHA GUNN [address] [facility] Mailcode: [id number] [place] [address] Celso Lopez NP - 8:45 AM PDT INPATIENT ADULT PAIN SERVICE NEURAXIAL BLOCK PROGRESS NOTE 04/01/2015 Author: CELSO PALMER NP POD#5. Status post: Trans-hiatal esophagectomy, pyloromyotomy, J tube placement, bilateral Chest tube placement, colopexy Past Medical History Diagnosis Date GERD (gastroesophageal reflux disease) HTN (hypertension) Cheema's esophagus Knee pain, chronic Back pain, chronic PA (myocardial infarction) s/p CABG x 2 Hearing loss bialteral hearing aids Interval events since last APS visit: -No acute event overnight -One Chest tube removed Mr. Meredith complains of bilateral chest wall pain. His pain score at rest is 0/10. With activity, his pain score is 2/10. Specific activitie s that exacerbate Mr. Meredith's pain include most activities. Mr. Meredith is satisfied with [facility] level of pain. History of chronic or [...] 12.5 mg 12.5 mg feeding tube BID psmxlmyqfagf-fuas-yrsksizn (CEROVITE) liquid 15 mL 15 mL feeding [...] nd summary of old medical records (source: [facility]), as summarized in the body of the note. Personal review of radiological images. Personal review of laboratory results. CELSO PALMER, MSN, ACNP- Nurse Practitioner Acute Pain Service [facility] [address] [place] [address] Gio Ramirez MD - 0 03/31/2015 11:20 [...] air. 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 Tachycardia improved. Hx CAD/PA - s/p CABG x 2 in 2007, [...] we staff with Dr Edgard Lowery MD [facility], General Surgery Celso Lopez NP - 0 03/31/2015 8:07 AM PDT INPATIENT ADULT PAIN SERVICE NEURAXIAL BLOCK PROGRESS NOTE 03/31/2015 Author: CELSO PALMER NP POD#4. Status post: Trans-hiatal esophagectomy, pyloromyotomy, J tube placement, bilatera l Chest tube placement, colopexy Past Medical History Diagnosis Date GERD (gastroesophageal reflux disease) HTN (hypertension) Cheema's esophagus Knee pain, chronic Back pain, chronic PA (myocardial infarction) s/p CABG x 2 Hearing [...] 12.5 mg 12.5 mg feeding tube BID xgxaogfxnzno-miin-rmzuvdgj (CEROVITE) liquid 15 mL 15 mL feeding [...] recommendations with primary care team provider Aur a Piotr, HEAT SET OPERATOR. Did not reach this provider. For today's evaluation, I have included my personal review of Mr. Meredith's history and physic al examination. I also used the following components in my medical decision making: Review and summary of old medical records (source: [facility]), as summarized in the body of the note. Personal review of radiological images. Personal review of laboratory results. 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 Tachycardia improved. Hx CAD/PA - s/p CABG x 2 in 2007, [...] staff with Dr Edgard Hernandez MD, MPH [address] Division of Plastic & Reconstructive Surgery Pager: [phone] au Cisse - 03/30 8:54 AM PDT [...] hours (or 3 results) Recent Labs 03/28/1521003/29/1538 03/30/15 0442 WBC 18.11* 24.61* 21.51* HB 11.8* 10.8* 9.5* HCT 35.2* 32.9* 28.2* PLT 219 188 161 Chemistries: Last 72 Hours (or 3 results): Recent Labs 03/28/1521003/29/1563703/29/15 18303/29/15195603/30/15 0442 NA 140 -- 139 -- -- -- [...] this note might be different from t aye original. INPATIENT ADULT PAIN SERVICE NEURAXIAL BLOCK [...] 12.5 mg 12.5 mg feeding tube BID jucsnpkeykps-fbbu-wjtzwcqq (CEROVITE) liquid 15 mL 15 mL feeding [...] subcutaneous daily, last dose given yesterday at 2122 hrs. Lab Results Component Value Date INRPT [...] borderline HTN, no arrhthymias overnight. Tachycardic. Hx CAD/PA - s/p CABG x 2 in 20 [...] with Dr Edgard Hernandez MD, MPH R2 [facility] Division of Plastic & Reconstructive Surgery Pager: [phone] Justo Palm MD - 03/29/2015 8:11 AM [...] deep breathing. Mr. Meredith is [facility] with [facility] level of pain. History of chronic or [...] injection 5 mg 5 mg intravenous Q6H ytuogsywhyde-rske-repyajva (CEROVITE) liquid 15 mL 15 mL feeding [...] with Dr. Garcia on TSICU rounds. Mau Wu MS4 [facility] Sweetie, Bulmaro Gil MD ,MPH - 03/28/2015 11:14 AM PDTRed surgery Attending Dr Akbar I: NAEO Received some labetalol for hypertension S: No [...] - borderline HTN, no arrhthymias overnight. Hx CAD/PA - s/p CABG x 2 in 2007, [...] with Dr Edgard Hernandez MD, MPH R2 [facility] Division of Plastic & Reconstructive Surgery Pager: [phone] Bob Mares MD - 03/28/2015 11:09 AM PDTTrauma / Surgical Critical Care Service - Progress Note Name: JUNAID MEREDITH Date: 03/28/2015 Time: 11:09 AM Author: BOB EDOUARD MD HPI: 75 y.o. male with history of severe GERD and Cheema's for 3 years. He was diagnosed with h igh-grade Cheema's and referred to [facility] for ablation. However, In December 2014 and [...] appropriate w/o fluid bolus or pressor requirement yokastanichristopher nieto NG pulled back by primary team this [...] Bob Edouard MD General Surgery, R2 Pager [phone] Dept of Surgery SICU/TICU Contact First Call [...] pulmonary toilet. Justo Garcia MD, MPH, FACS, [facility] recycling operations manager Trauma, Surgical Critical Care, & Acute Care Surgery [facility] [phone] Ivanna Moreno MD - 03/28/2015 8:23 AM [...] Joyner status: Epidural: at thoracic level; If Joynre is in place, it may be removed [...] Newell do, MD - 03/27/2015 3:04 PM DEYABRYELENA OPERATIVE NOTE Procedure Date: 03/27/2015 Author: ERIC [...] MIS Fellow [facility] Dept. of Surgery Pager [phone] documented in t his encounter Plan of [...] CHG), | e | 12:37 PM | (HCC) | procedure are in the | | POC | | PDT | | results section. | + +--------+ + + + | CAPILLARY BLOOD | Routin | 04/05/2015 | Esophageal cancer | Results for this | | GLUCOSE (NO CHG), | e | 5:40 AM | (HCC) | procedure are in [...] CHG), | e | 12:33 PM | (HCC) | procedure are in [...] CHG), | e | 12:13 PM | (HCC) | procedure are in [...] CHG), | e | 5:55 AM | (HCC) | procedure are in [...] CHG), | e | 12:19 AM | (HCC) | procedure are in [...] CHG), | e | 6:08 PM | (HCC) | procedure are in [...] + +--------+ + + + | DONN ORTEGA | Routin | 03/27/2015 | Esophageal cancer | Results for this | | | e | 2:16 PM | (HCC) | procedure are in the | | | | PDT | | results section. | + +--------+ + + + | LOUISE (ART) POC | Routin | 03/27/2015 | Esophageal cancer | Results for this | | ISTAT | e | 12:40 PM | (HCC) | procedure are in the | | | | PDT | | results section. | + +--------+ + + + | HEMOGLOBIN-PHILL, POC | Routin | 03/27/2015 | Esophageal [...] | + +--------+ + + + | BECKY POC | Routin | 03/27/2015 | Esophageal [...] | + +--------+ + + + | HEMOGLOBIN-PHILL, POC | Routin | 03/27/2015 | Esophageal cancer | Results for this | | | e | 11:31 AM | (HCC) | procedure are in the | | | | PDT | | results section. | + +--------+ + + + | SODIUM POC | Routin | 03/27/2015 | Esophageal [...] | + +--------+ + + + | HEMOGLOBIN-PHILL, POC | Routin | 03/27/2015 | Esophageal [...] | + +--------+ + + + | GLUCOSE POC | Routin | 03/27/2015 | Esophageal [...] [facility] | [address] | [place] [address] | | | [place] | [address] | | | + [...] | + + + + + | [facility] | [address] | [place] [address] | | | SERVICES, CORE | LATESHA [...] [facility] | [address] | [place] [address] | | | SERVICES, CORE | PARK [...] | | | LABORATORY | | | [place] | | | SERVICES, | | | [...] | + + + + + | [facility] | [address] | [place] [address] | | | SERVICES, CORE | LATESHA [...] (H) | 60 - 99 mg/dL | [facility] - | | | GLUCOSE, | | [...] HERNANDE[facility] | [address] | [place], [place] | | | YG POINT OF CARE | [address] | [address] | | | TESTS | | | | + + + + + X-RAY PORTABLE CHEST 1 VIEW (04/05/2015 1:13 PM PDT) + + + + + + | Component | Value | Ref Range | Performed | Pathologist | | | | | At | Signature | + + + + + + | X-RAY | STUDY: MA CHEST 1 VIEW | | | | [...] | | | | | | MDAuthor: AMBELRY MULLEN MD | | | | | [...] [facility] | [address] | [place], [place] | | | [place] | [address] | [address] | | | TESTS | | | [...] | | | POC | | | HILL POINT | | | | | | [...] MADYAM | [address] | [place], [place] | | | [place] POINT OF CARE | [address] | [address] | | | TESTS | | | [...] [facility] | [address] | [place] [address] | | | SERVICES, CORE | PARK [...] + | [facility] | [address] | [place] [address] | | | SERVICES, CORE | PARK [...] | | | LABORATORY | | | CYMRAES | | | SERVICES, | | | [...] | + + + + + | [facility] | [address] | [place] [address] | | | [place], [place] | [address] | | | + + + + + X-RAY PORTABLE CHEST 1 VIEW (04/05/2015 5:09 AM PDT) + + + + + + | Component | Value | Ref Range | Performed | Pathologist | | | | | At | Signature | + + + + + + | X-RAY | EXAM: MA CHEST 1 VIEW | | | | [...] | | | | | | AMBERLY MULLEN MDAuthor: | | | | | | [...] | | + +---------+ + + | [facility] DEPARTMENT OF | | | | | [...] MADYAM | [address] | [place] | | | YG POINT OF CARE | [address] | [address] | | | TESTS | | | [...] MARQUAM | [address] | [place], [place] | | | [place] | [address] | [address] | | | TESTS | | | [...] (H) | 60 - 99 mg/dL | [facility] - | | | GLUCOSE, | | [...] HERNANDEZ | [address] | [place], [place] | | | S[place] OF CARE | [address] | [address] | | | TESTS | | | [...] MARLINOAM | [address] | [place] | | | [place] OF CARE | [address] | [address] | | | TESTS | | | [...] | + + + + + | [facility] | [address] | [place] [address] | | | SERVICES, CORE | [address] | | | + + + + + MAGNESIUM, PLASMA (04/04/2015 5:08 AM PDT) + +-------+ + + + | Component | Value | Ref Range | Performed | Pathologist | | | | | At | Signature | + +-------+ + + + | MAGNESIUM,P | 2.0 | 1.8 - 2.5 mg/dL | [facility] | | | LASMA | | | [...] [facility] | [address] | [place] [address] | | | SERVICES, CORE | PARK [...] | | | LABORATORY | | | [place]MRAES | | | SERVICES, | | | [...] | + + + + + | [facility] | [address] | [place] [address] | | | SERVICES, CORE | [address] | | | + + + + + X-RAY PORTABLE CHEST 1 VIEW (04/04/2015 3:24 AM PDT) + + + + + + | Component | Value | Ref Range | Performed | Pathologist | | | | | At | Signature | + + + + + + | X-RAY | EXAM: MA CHEST 1 VIEW | | | | [...] | | + +---------+ + + | [facility] DEPARTMENT OF | | | | | [...] + | [facility] | [address] | [place], [place] | | | [place] | [facility] | [address] | | | TESTS | | | [...] (H) | 60 - 99 mg/dL | [facility] - | | | GLUCOSE, | | [...] HERNANDEZ | [address] | [place], [place] | | | YG POINT OF CARE | [address] | [address] | | | TESTS | | | [...] DAVID | [address] | [place], [place] | | | [place] | [address] | [address] | | | TESTS | | | [...] | | | | | signed / DAPHNEY | | | | | [...] | | + +---------+ + + | [facility] DEPARTMENT OF | | | | | RADIOLOGY | | | | + +---------+ + + X-RAY PORTABLE CHEST 1 VIEW (04/03/2015 7:24 AM PDT) + + + + + + | Component | Value | Ref Range | Performed | Pathologist | | | | | At | Signature | + + + + + + | X-RAY | EXAM: MA CHEST 1 VIEW | | | | [...] | | | | | lower neck Morales | | | | | | [...] LAVON | | | | | | SUMAN OAKESuthor: KELBY | | | | | | [...] | | | | | | FUSS 04/03/2015 10:36 AM | | | | [...] MAR[facility] | [address] | [place], [place] | | | YG POINT OF CARE | [address] | [address] | | | TESTS | | | [...] | + + + + + | [facility] | [address] | [place] [address] | | | [place], [place] | [address] | | | [...] | + + + + + | [facility] | [address] | [place] [address] | | | [place] | [address] | | | + [...] | | | LABORATORY | | | CYMRAES | | | SERVICES, | | | [...] | + + + + + | [facility] | [address] | [place] [address] | | | SERVICES, CORE | PARK [...] MADYAM | [address] | [place], [place] | | | [place] | [address] | [address] | | | TESTS | | | [...] HERNANDEZ | [address] | [place], [place] | | | YG POINT OF CARE | [address] | [address] | | | TESTS | | | [...] species 2 colony types Please contact | [place] | | the microbiology laboratory if further [...] | + + + + + | [facility] | [address] | [place] [address] | | | [place] | | | | + + + [...] MADYAM | [address] | [place], [place] | | | YG POINT OF CARE | [address] | [address] | | | TESTS | | | [...] [facility] | [address] | [place] [address] | | | SERVICES, | [address] [...] [facility] | [address] | [place] [address] | | | SERVICES, | [address] [...] + + + | X-RAY | EXAM: MA CHEST 1 VIEW | | | | [...] | | + +---------+ + + | [facility] DEPARTMENT OF | | | | | [...] DAVID | [address] | [place], [place] | | | YG POINT OF CARE | [address] | [address] | | | TESTS | | | [...] [facility] | [address] | [place] [address] | | | SERVICES, CORE | PARK [...] [facility] | [address] | [place] [address] | | | SERVICES, CORE | PARK [...] | | | LABORATORY | | | CYMRAES | | | SERVICES, | | | [...] | + + + + + | [facility] | [address] [facility] | [place] [address] | | | SERVICES, [place] | LATESHA [...] [facility] | [address] | [place], [place] | | | SADE [place]QU[place] OF CARE | [address] | [address] | | | TESTS | | | [...] [facility] | [address] | [place], [place] | | | S[place] OF CARE | [address] | [address] | | | TESTS | | | [...] | | | LABORATORY | | | CYMRAES | | | SERVICES, | | | [...] | + + + + + | [facility] | [address] | [place] [address] | | | SERVICES, CORE | [address] | | | + + + + + X-RAY PORTABLE CHEST 1 VIEW (04/01/2015 1:37 PM PDT) + + + + + + | Component | Value | Ref Range | Performed | Pathologist | | | | | At | Signature | + + + + + + | X-RAY | EXAM: MA CHEST 1 VIEW | | | | [...] HERNANDEZ | [address] | [place], [place] | | | [place] | [facility] | [address] | | | TESTS | | | | + + + + + X-RAY PORTABLE CHEST 1 VIEW (04/01/2015 6:54 AM PDT) + + + + + + | Component | Value | Ref Range | Performed | Pathologist | | | | | At | Signature | + + + + + + | X-RAY | EXAM: MA CHEST 1 VIEW | | | | [...] MARQU[facility] | [address] | [place], [place] | | | SADE [place] OF CARE | [address] | [address] | | | TESTS | | | [...] | + + + + + | [facility] | [address] | [place] [address] | | | SERVICES, CORE | LATESHA [...] [facility] | [address] | [place] [address] | | | SERVICES, CORE | PARK [...] | | | LABORATORY | | | CYMRAES | | | SERVICES, | | | [...] | + + + + + | [facility] | [address] | [place] [address] | | | SERVICES, CORE | LATESHA [...] DAVID | [address] | [place], [place] | | | [place]I [place] | [facility] | [address] | | | TESTS | | | [...] HERNANDEZ | [address] | [place], [place] | | | [place] | [address] | [address] | | | TESTS | | | [...] MARQU[facility] | [address] | [place], [place] | | | YG POINT OF CARE | [address] | [address] | | | TESTS | | | | + + + + + CAPILLARY BLOOD GLUCOSE (NO CHG), POC (03/31/2015 7:45 AM PDT) + +-------+ + + + | Component | Value | Ref Range | Performed | Pathologist | | | | | At | Signature | + +-------+ + + + | BLOOD | 79 | 60 - 99 mg/dL | [facility] [...] [facility] | [address] | [place], [place] | | | [facility] [place] [facility] | [facility] | [address] | | | TESTS | | | | + + + + + X-RAY PORTABLE CHEST 1 VIEW (03/31/2015 5:38 AM PDT) + + + + + + | Component | Value | Ref Range | Performed | Pathologist | | | | | At | Signature | + + + + + + | X-RAY | EXAM: MA CHEST 1 VIEW | | | | [...] [facility] | [address] | [place] [address] | | | [place] | LATES[facility] [...] [facility] | [address] | [place] [address] | | | SERVICES, CORE | PARK [...] | | | LABORATORY | | | [facility] | | | SERVICES, | | | [...] | + + + + + | [facility] | [address] | [place] [address] | | | SERVICES, CORE | LATESHA [...] MARQUAM | [address] | [place], [place] | | | YG [facility] | [address] | [address] | | | TESTS | | | [...] HERNANDEZ | [address] | [place], [place] | | | SHI RONQUILLO | [address] | [address] | | | TESTS | | | | + + + + + X-RAY PORTABLE CHEST 1 VIEW (03/30/2015 5:54 AM PDT) + + + + + + | Component | Value | Ref Range | Performed | Pathologist | | | | | At | Signature | + + + + + + | X-RAY | STUDY: MA CHEST 1 VIEW | | | | [...] TIM | | | | | | MD SAÚL I have | | | | | [...] | + + + + + | [facility] | [address] | [place] [address] | | | SERVICES, CORE | [address] | | | + + + + + MAGNESIUM, PLASMA (03/30/2015 4:42 AM PDT) + +-------+ + + + | Component | Value | Ref Range | Performed | Pathologist | | | | | At | Signature | + +-------+ + + + | MAGNESIUM,P | 1.8 | 1.8 - 2.5 mg/dL | [facility] [...] | + + + + + | [facility] | [address] | [place] [address] | | | SERVICES, [place] | LATESHA [...] | | | LABORATORY | | | CYMRAES | | | SERVICES, | | | [...] the MDRD equation recommended by the | IASU | | National Kidney Disease Education Program. [...] | + + + + + | [facility] | [address] | [place] [address] | | | SERVICES, [place] | LATESHA [...] [facility] | | | DARONE | by tastytrade,500 | | REG UNIV | | | | Miranda Patel, [facility],[place] | | PTH - [facility] | | | | [phone] | | | | | | [phone].[employer]. | | | | | | Omer dey, | | | | | | Oren DUNCAN. Director | | | | + + + + + + + + | Specimen | + + | Blood - Blood | + + + + + + + | Performing | Address | City/State/Zipcode | Phone Number | | Organization | | | | + + + + + | [facility] | [address] | [place], [place] | | | UNIV PTH - [facility] | | [address] | | + + + + + [...] HERNANDEZ | [address] | [place], [place] | | | [facility] [place] | [facility] | [address] | | | TESTS | | | [...] [facility] | [address] | [place], [place] | | | SADE RONQUILLO OF CARE | [address] | [address] | | | TESTS | | | [...] [facility] | [address] | [place] [address] | | | SERVICES, CORE | [address] | | | + + + + + GONSALO ROLLINS ONLY (03/29/2015 12:22 PM PDT) + + [...] [facility] | [address] | [place] [address] | | | SERVICES, CORE | [address] [...] | + + + + + | [facility] | [address] | [place] [address] | | | SERVICES, CORE | LATESHA [...] | + + + + + | [facility] | [address] | [place] [address] | | | SERVICES, CORE | [address] [...] HERNANDEZ | [address] | [place], [place] | | | S[facility] [place] [facility] [place] | [facility] | [address] | | | TESTS | | | [...] | + + + + + | [facility] | [address] | [place] [address] | | | SERVICES, CORE | [address] | | | + + + + + MAGNESIUM, PLASMA (03/29/2015 6:38 AM PDT) + +-------+ + + + | Component | Value | Ref Range | Performed | Pathologist | | | | | At | Signature | + +-------+ + + + | MAGNESIUM,P | 2.0 | 1.8 - 2.5 mg/dL | [facility] | | | LASMA | | | [...] | + + + + + | [facility] | [address] | [place] [address] | | | SERVICES, CORE | P[address] [...] | | | LABORATORY | | | CYMRAES | | | SERVICES, | | | [...] | + + + + + | [facility] | [address] | [place] [address] | | | SERVICES, [place] | [address] | | | + + + + + X-RAY PORTABLE CHEST 1 VIEW (03/29/2015 5:57 AM PDT) + + + + + + | Component | Value | Ref Range | Performed | Pathologist | | | | | At | Signature | + + + + + + | X-RAY | EXAM: MA CHEST 1 VIEW | | | | [...] | | + +---------+ + + | [facility][1] | | | | | RADIOLOGY | | | | + +---------+ + + OPERATION RECORD (03/28/2015 3:46 PM PDT) + + | Transcriptions | + + | Eric Conley MD - 03/27/2015 9:17 PM PDT Date of Service: 03/27/2015 | | Attending Surgeon: Vijay Akbar MD Filter Tank Tender(s): Tito Rene MD | | MD Bulmaro [...] trocar, 11 mm, using the | | 2DOLife.comStep system w, approximately 17 cm from the [...] cm from that one. We used a Estefani liver retractor | | which was placed [...] to our mediastinal dissection. We placed a Commerce drain around | | our esophagus, and [...] of the specimen. We then passed a 28-Thai | | chest tube from the neck [...] | | needle counts were correct.Karlee Brock MDFM/CONRADOD: 03/27/2015 | | 18:54:08DT: 03/27/2015 21:17:00Job #: [id number] | + + CAPILLARY BLOOD GLUCOSE (NO [...] + + | G[facility]O HERNAN[facility] | [address] | [place], [place] | | | [facility] | [facility] | [address] | | | TESTS | | | | + + + + + X-RAY PORTABLE CHEST 1 VIEW (03/28/2015 6:05 AM PDT) + + + + + + | Component | Value | Ref Range | Performed | Pathologist | | | | | At | Signature | + + + + + + | X-RAY | EXAM: MA CHEST 1 VIEW | | | | [...] [facility] | [address] | [place] [address] | | | SERVICES, CORE | P[address] [...] | | | LABORATORY | | | CYMRAES | | | SERVICES, | | | [...] [facility] | [address] | [place] [address] | | | SERVICES, CORE | [address] | | | + + + + + MAGNESIUM, PLASMA (03/28/2015 2:11 AM PDT) + +---------+ + + + | Component | Value | Ref Range | Performed | Pathologist | | | | | At | Signature | + +---------+ + + + | MAGNESIUM,P | 1.6 (L) | 1.8 - 2.5 mg/dL | [facility] [...] | + + + + + | [facility] | [address] | [place] [address] | | | SERVICES, CORE | [address] | | | + + + + + X-RAY PORTABLE CHEST 1 VIEW (03/27/2015 3:50 PM PDT) + + + + + + | Component | Value | Ref Range | Performed | Pathologist | | | | | At | Signature | + + + + + + | X-RAY | EXAM: MA CHEST 1 VIEW | | | | [...] | | | | | CHAMP, MDAuthor: SHELLI | | | | | [...] HERNA[facility] | [address] | [place], [place] | | | SADE [facility] OF CARE | [address] | [address] | | | TESTS | | | [...] [facility] | [address] | [place] [address] | | | SERVICES, CORE | PARK [...] | + + + + + | [facility] | [address] | [place] [address] | | | NELLY, [place] | [address] | | | [...] | | | LABORATORY | | | CYMRAES | | | SERVICES, | | | [...] | + + + + + | [facility] | [address] | [place] [address] | | | SERVICES, CORE | [address] [...] | [facility] HERNANDE[facility] | [address] | [place], [place] | | | S[facility] OF CARE | [address] | [address] | | | TESTS | | | | + + + + + SODIUMDONN (03/27/2015 2:16 PM PDT) + +-------+ + [...] DAVID | [address] | [place], [place] | | | [facility] [place] [facility] [place] | [address] | [address] | | | TESTS | | | [...] | | POC | | mmol/L | [facility] | | [...] DAVID | [address] | [place], [place] | | | [facility] [place] [facility] [place] | [facility] | [address] | | | TESTS | | | | + + + + + GLUCOSE, POC (03/27/2015 2:16 PM PDT) + +---------+ + + + | Component | Value | Ref Range | Performed | Pathologist | | | | | At | Signature | + +---------+ + + + | GLUCOSE, | 135 (H) | 60 - 99 mg/dL | [facility] - | | | POC | | [...] + | [facility] | [address] | [place], [place] | | | YG POINT OF CARE | [address] | [address] | | | TESTS | | | | + + + + + CHLORIDE, POC (03/27/2015 2:16 PM PDT) + +-------+ [...] HERNANDEZ | [address] | [place], [place] | | | [facility] [place] [facility] [place] | [facility] | [address] | | | TESTS | | | [...] + + + + | [facility] | [address] | [place], [place] | | | SADE [facility]ILL[facility] OF CARE | [facility] | [address] | | | TESTS | | | [...] HERNANDEZ | [address] | [place], [place] | | | YG POINT OF CARE | [address] | [address] | | | TESTS | | | [...] MARLINOAM | [address] | [place], [place] | | | [facility] [place] [facility] [place] | [address] | [address] | | | TESTS | | | [...] [facility] | [address] | [place], [place] | | | [facility] [place] [facility] [place] | [address] | [address] | | | TESTS | | | [...] HERNANDEZ | [address] | [place], [place] | | | YG POINT OF CARE | [address] | [address] | | | TESTS | | | | + + + + + POTASSIUM POC (03/27/2015 12:40 PM PDT) + +-------+ + + + | Component | Value | Ref Range | Performed | Pathologist | | | | | At | Signature | + +-------+ + + + | POTASSIUM, | 4.5 | 3.4 - 5.0 | [facility] - | | | POC | | mmol/L | [facility] | | [...] [facility] | [address] | [place], [place] | | | YG POINT OF CARE | [address] | [address] | | | TESTS | | | [...] + | [facility] | [address] | [place], [place] | | | SADE [place] OF CARE | [address] | [address] | | | TESTS | | | | + + + + + CHLORIDE, POC (03/27/2015 12:40 PM PDT) + +-------+ [...] HERNANDEZ | [address] | [place], [place] | | | [facility] [place] [facility] [place] | [facility] | [address] | | | TESTS | | | [...] MAR[facility] | [address] | [place], [place] | | | SADE [place]ONQUILLO OF CARE | [address] | [address] | | | TESTS | | | [...] | | [facility] - | | | OBLESLIE POC | | | MADYAM | | | | | [...] + | [facility] | [address] | [place], [place] | | | SADE [facility]ONQUILLO OF CARE | [facility] | [address] | | | TESTS | | | [...] HERNANDEZ | [address] | [place], [place] | | | YG POINT OF CARE | [address] | [address] | | | TESTS | | | | + + + + + LACTATE (ART) POC (03/27/2015 11:31 AM PDT) + +-------+ [...] [facility] | [address] | [place], [place] | | | YG POINT OF CARE | [address] | [address] | | | TESTS | | | [...] + | [facility] | [address] | [place], [place] | | | SADE [facility]ONQUILLO OF CARE | [address] | [address] | | | TESTS | | | [...] | | POC | | mmol/L | [facility] | | [...] HERNANDEZ | [address] | [place], [place] | | | SADE RONQUILLO OF CARE | [address] | [address] | | | TESTS | | | [...] + + | [facility] | [address] | [place], [place] | | | SADE [facility]ONQUILLO OF CARE | [address] | [address] | | | TESTS | | | [...] | [facility] | [address] | [place], [place] | | | S[facility] [place] OF [place] | [facility] | [address] | | | TESTS | | | [...] HERNANDEZ | [address] | [place], [place] | | | YG POINT OF CARE | [address] | [address] | | | TESTS | | | | + + + + + HEMOGLOBIN-COOX, POC (03/27/2015 11:31 AM PDT) + + [...] MARLINOAM | [address] | [place], [place] | | | SADE [facility]ONQUILLO OF CARE | [address] | [address] | | | TESTS | | | [...] HERNANDEZ | [address] | [place], [place] | | | YG POINT OF CARE | [address] | [address] | | | TESTS | | | | + + + + + LACTATE (ART) POC (03/27/2015 9:24 AM PDT) + +-------+ [...] [facility] | [address] | [place], [place] | | | SADE [facility]ONQUILLO OF CARE | [address] | [address] | | | TESTS | | | [...] + + | [facility] HERNAN[facility] | [address] | [place], [place] | | | SADE RONQUILLO OF CARE | [facility] | [address] | | | TESTS | | | [...] HERNANDEZ | [address] | [place], [place] | | | YG POINT OF CARE | [address] | [address] | | | TESTS | | | [...] HERNANDEZ | [address] | [place], [place] | | | [facility] [place] [facility] [place] | [address] | [address] | | | TESTS | | | | + + + + + DONN PENA (03/27/2015 9:24 AM PDT) + +-------+ + [...] M[facility] | [address] | [place], [place] | | | S[facility] [place] OF [place] | [facility] | [address] | | | TESTS | | | [...] | IONIZED CA, | | mmol/L | [facility] | | | POC | | | [...] HERNANDEZ | [address] | [place], [place] | | | YG POINT OF CARE | [address] | [address] | | | TESTS | | | | + + + + + HEMOGLOBIN-DONN POLLOCK (03/27/2015 9:24 AM PDT) + + [...] | | [facility] - | | | OBIN POC | | | [facility] | | [...] HERNANDEZ | [address] | [place], [place] | | | SADE [facility]ONQUILLO OF CARE | [address] | [address] | | | TESTS | | | [...] DAVID | [address] | [place], [place] | | | [facility] | [address] | [address] | | | TESTS | | | [...] by:Zoë | | | | | | Hong, M.D./Surgical | | | | | | Pathology ResidentDavid | | | | | | AAj Cook, | | | | | | [...] | | | | | | Pedro P.A. | | | | | | andRamu Morrell, | | | | | | [...] | | | | | | (initials JLClive) and: | | | | | | [...] | | | | | | | Glass Tube Bender | | | | | | E: [...] proximal | | | | | | hlkhbcthcK40-15, | | | | | | sequential sections | | | | | | adjacent to proximal | | | | | | esophageal svntthG92, | | | | | | bilingual sales representative | | | | | | perpendicular section of | | | | | | distal gastric | | | | | | avaqkgX74, entire | | | | | | adipose tissue from mid | | | | | | esophagus, entire | | | | | | fatD18, distal | | | | | | esophagus, five possible | | | | | | lymph hacnbB80-06, | | | | | | distal esophagus, | | | | | | remaining fatD21, five | | | | | | possible lymph chlahT66, | | | | | | five possible lymph | | | | | | ctzdiB51, five possible | | | | | | lymph xhximY04, one | | | | | | possible lymph nodeD25, | | | | | | distal stomach, four | | | | | | possible lymph mvnqvA15, | | | | | | distal [...] Cook | | | | | | BrittanyPathologistKavoni | | | | | | bridget [...] | + + + + + | [facility][1] | [address] | [place] [address] | | | PATHOLOGY | [address] | | | + [...] in this encounter Administered Medications + +--------+ +------+------+-------+ | Medication Order | MAR | Action | Dose | Rate | Site | | | Action | Date | | | | + +--------+ +------+------+-------+ | bupivacaine | Given | 03/27/20 | 1 mL | | Chest | | (MARCAINE,SENSORCAINE-MPF) 0.25 % | | 15 12:29 | | | | | (2.5 mg/mL) injection | | PM PDT | | | | | INTRAPROCEDURE PRN, Starting Kati | | | | | | | 03/27/15 at 1210, Until Kati 03/27/15 | | | | | | | at 1508 | | | | | | + +--------+ +------+------+-------+ +-------+ +------+---+-------+ | Given | 03/27/20 | 5 mL | | Chest | | | 15 12:10 | | | | | | PM PDT | | | | +-------+ +------+---+-------+ +---+---+ | | | +---+---+ documented in this encounter
--- OUTSIDE RECORDS SUMMARY | ~2020-01-10 | XMS | Encounter Summary ---
Demographics + + + | Address | [address] | | | [place] [address] | + + + | Home Phone | | + + + | Preferred Language | Unknown | + + + | Marital Status | | + + + | Yazidism Affiliation | Unknown | + + + | Race | Unknown | + + + | Ethnic Group | Unknown | + + + Author + + + | Author | [facility] | | | and Tobyana | + + + | Organization | [facility] | | [...] | | | | | [place] [address] | | + + + + + Care Team Providers + +------+ + | Care Washing Machine Loader Name | Role | Phone | + +------+ + PCP | Unavailable | + +------+ + Encounter Details +--------+ + + + + | Date | Type | Department | Care Team | Description | +--------+ + + + + | 01/15/ | Hospital | [facility] | Yonas Cyr, | | | 2007 - | Encounter | [facility] | [address] | | | | | CARDIAC TRANSPLANT | [place], | | | 01/19/ | | [address] | [place] [address] | | | 2007 | | [place] | [phone] | | | | | [address] | | | | | | [phone] | | | +--------+ + + + [...] + + documented as of this encounter Discharge Summaries Darian Roberson PA - 07/25/2013 3:52 PM PSTPATIENT NAME: Junaid Jimenez DATE OF ADMISSION: 01/16/2008 AGE/SEX: 68/M DATE OF DISCHAR GE: 01/20/2008 : 1940 HISTORY OF PRESENT ILLNESS: The patient is a 67-year-old white male who presents with inc reasing chest discomfort usually brought on with activity. Electrocardiogram showed some Q- waves where he has undergone heart catheterization by Dr. Antonio in [place], and thi s demonstrated significant coronary artery disease. At this point, he was referred to Dr. Cyr for the possibility of surgical intervention. DATE OF PROCEDURE: 01/16/08 PREOPERATIVE DIAGNOSIS: Coronary artery disease. POSTOPERATIVE DIAGNOSIS: Coronary artery disease. PROCEDURE PERFORMED: Coronary artery bypass grafting x2, specifically the left internal m ammary artery to the LAD and a saphenous vein graft to the right coronary artery. FINDINGS: Some posterior LV wall scar. Overall, the patient tolerated the procedure well and was transferred in stable condition to the CICU where he was extubated in a timely fas hion. On the morning of postoperative day 1, he was awake, alert and neurologically. His heart is being in a normal sinus rhythm. Lungs are clear, as was his chest x-ray. Wounds are clean and dry. Labs are satisfactory including a sodium of 4.1, creatinine of 1.1, an d an H&H of 11.2 and 32.5. He was diuresed with Lasix with fairly good results. Aspirin a nd beta-blockers were restarted. The patient was transferred to the floor where his activi ty was increased as tolerated, and for the most part the remainder of his hospitalization w as unremarkable. By 01/20/08 on postoperative day 4, he was doing well and was without com plaints. He was afebrile. Vital signs remained stable. Urine output was quite good. His heart continued to be at a regular rhythm in the 80s with blood pressures around 110. Roderick gs were clear to auscultation with diminished breath sounds at the bases, mostly on the lef t more than the right, and he was on room air with good saturations. His wounds were heal ing without any signs of complications. He was readied for discharge with instructions to follow up with Dr. Cyr in approximately 1 month, and also with Dr. Antonio in [facility] 1 month. DISCHARGE MEDICATIONS: 1. Ecotrin 325 mg daily. 2. Hydrocodone 5 mg p.r.n. incisional soreness. 3. Ibuprofen 400 mg 3 times a day. 4. Lisinopril 10 mg daily. 5. Metoprolol 25 mg twice a day. FINAL DIAGNOSIS: Coronary artery disease. PROCEDURE PERFORMED: Coronary artery bypass grafting x2 including the left internal mamma ry artery. ASIA JIMENEZ [id number] 01/20/08 DIS IN [id number] DISCHARGE SUMMARY BRITTANY Rodriguez [facility] MD Jamee Walker THIS REPORT IS CONFIDENTIAL AND NOT TO BE RELEASED WITHOUT PROPER AUTHORIZATION. [facility] ALEJANDRA Peters MD P TV/pmt #[id number] cc: MD Tawanda Davidson MD Torrey Vail, PA-C Suwong Wongsuwan, MD xc: Emile Lowery D.O. [address] [facility] [place] [address] Digitally authenticated 05/13/08 1111 Yonas Cyr MD MASOUDASIA [id number] 01/20/08 DIS IN [id number] DISCHARGE SUMMARY BRITTANY Rodriguez [facility] MD Jamee Walker THIS REPORT IS CONFIDENTIAL AND NOT TO BE RELEASED WITHOUT PROPER AUTHORIZATION.Electronica lly signed by ALLEN Pryor at 07/27/2013 3:55 AM PSTdocumented in this encounter Plan of Treatment +--------+---------+ + + + | Date | Type | Specialty | Care Team | Description | +--------+---------+ + + + | 05/29/ | Office | Cardiology | CiaranbetzaidaconcettaBernice, | | | 2019 | Visit | | MD Liliana Hernandez | | | | | | [place], | | | | | | [place] [address] | | | | | | [phone] | | | | | | | | +--------+---------+ + + + documented as of this encounter Visit Diagnoses Not on filedocumented in this encounter"
--- OUTSIDE RECORDS SUMMARY | ~2020-01-10 | XMS | Encounter Summary ---
Demographics + + + | Address | [address] | | | [place] [address] | + + + | Home Phone | | + + + | Preferred Language | Unknown | + + + | Marital Status | | + + + | Lutheran Affiliation | NON | + + + | Race | White | + + + | Ethnic Group | Not or | + + + Author + + + | Author | [facility] | + + + | Organization | [facility] | + + + | Address | Unknown | + + + | Phone | Unavailable | + + + Support + + + + + | Name | Relationship | Address | Phone | + + + + + | Selena Jimenez | ECON | [address] | | | | | [place] | | | | | [address] | | + + + + + | Ronny Rene | ECON | Unknown | | + + + + + | Char Woodard | ECON | Unknown | | + + + + + Care Team Providers + +------+ + | Care Sap Security Consultant Name | Role | Phone | + [...] + + + + | 11/21/ | Abstract | [facility] | Char Castillo, | Medical Records | | 2018 | | Center at [facility] [address] | [address] | Review | | | | [address] [facility] | [address] [place], [place] | | | | | for Health and | [address] | | | | | [facility] [address] | [phone] | | | | | [place], [place] | | | | | | [address] | | | | | | [phone] | | | +--------+ + + + [...]
--- OUTSIDE RECORDS SUMMARY | ~2020-01-10 | XMS | Encounter Summary ---
Demographics + + + | Address | [address] | | | [place] [address] | + + + | Home Phone | | + + + | Preferred Language | Unknown | + + + | Marital Status | | + + + | Baptism Affiliation | Unknown | + + + | Race | Unknown | + + + | Ethnic Group | Unknown | + + + Author + + + | Author | [facility] | | | and Tobyana | + + + | Organization | [facility] | | | and Tobyana | + + + | Address | Unknown | + + + | Phone | Unavailable | + + + Support + + + + + | Name | Relationship | Address | Phone | + + + + + | Selena Jimenez | ECON | [id number] | | | | | [place] [address] | | + + + + + Care Team Providers + +------+ + | Care Transcription Typist Name | Role | Phone | + [...] | +--------+ + + + + | 11/24/ | Telephone | [facility] | Bernice Antonio, | Blood Pressure | | 2017 | | CARDIOLOGY [address] | MD [address] | | | | | [place], | [place], | | | | | [place] [address] | [place] [address] | | | | | [phone] | [phone] | | | | | | | [...] [place], | | | | | | [place] [address] | | | | | | [phone] | | | | | | | | +--------+---------+ + + + + +------+--------+ + + | Name | Type | Priori | Associated Diagnoses | Order Schedule | | | | ty | | | + +------+--------+ + + | Basic Metabolic | Lab | Routin | Essential | Expected: | | Panel | | e | hypertension | 12/02/2016, Expires: | | | | | | 12/02/2017 | + +------+--------+ + + documented as of this encounter Visit Diagnoses + + | Diagnosis | + + | Essential hypertension - Primary Unspecified essential hypertension | + + documented in this encounter"
--- OUTSIDE RECORDS SUMMARY | ~2020-01-10 | XMS | Encounter Summary ---
Demographics + + + | Address | [address] | | | [place] [address] | + + + | Home Phone [...] [place] | | | | | [address] | | + + + + + | Ronny Rene | ECON | Unknown | | + + + + + | Char Woodard | ECON | Unknown | | + + + + + Care Team Providers + +------+ + | Care Shellfish Grower Name | Role | Phone | + +------+ + | Deondre Landis MD | PCP | | + +------+ + Encounter Details +--------+ + + + + | Date | Type | Department | Care Team | Description | +--------+ + + + + | 01/07/ | Embedded Software Programmer | [facility] | Rubin Lorenzo | Esophageal cancer | | 2015 | | [facility] at [facility] [address] | MD [place]is [address] | (HCC) (Primary Dx) | | | | [facility] | [facility] | | | | | [facility] and | [place], [place] | | | | | [place] [address] | [address] | | | | | [place], [place] | [phone] | | | | | [address] | | | | | | [phone] | | | +--------+ + + + [...]
--- OUTSIDE RECORDS SUMMARY | ~2020-01-10 | XMS | Encounter Summary ---
Demographics + + + | Address | [address] | | | [place] [address] | + + + | Home Phone [...] [place] | | | | | [address] | | + + + + + | Ronny Rene | ECON | Unknown | | + + + + + | Char Woodard | ECON | Unknown | | + + + + + Care Team Providers + +------+ + | Care Air Tester Name | Role | Phone | + +------+ + | Deondre Landis MD | PCP | | + +------+ + Encounter Details +--------+ + + + + | Date | Type | Department | Care Team | Description | +--------+ + + + + | 04/01/ | [place] Machine Operator | Digestive Health | Vijay Akbar MD | Pulmonary nodules | | 2016 | | Center at [facility] [address] | [address] | (Primary Dx); | | | | [facility] | [address], | History of | | | | for Health and | [place] [address] | esophageal cancer - | | | | [place] [address] | [phone] | pTisN0 | | | | [place], [place] | | | | | | [address] | | | | | | [phone] | | | +--------+ + + + [...] | + +--------+ + + + | OUTSIDE CHEST - READ | Routin | 03/23/2016 | Pulmonary nodules | Results for this | | REQUEST | e | 12:25 PM | History of | procedure are in the | | | | PDT | esophageal cancer - | results section. | | | | | pTisN0 | | + +--------+ + + + documented in this encounter Results OUTSIDE CHEST - READ REQUEST (03/23/2016 12:25 PM PDT) + + + + + + | Component | Value | Ref Range | Performed | Pathologist | | | | | At | Signature | + + + + + + | OUTSIDE | EXAM: Professional | | | | | CHEST - | interpretation only of | | | | | READ | CT DATE OF | | | | | REQUEST | INTERPRETATION REQUEST: | | | | | | 05/18/2016.DATE OF IMAGE | | | | | | ACQUISITION: 03/23/2016. | | | | | | HISTORY: Esophageal | | | | | | cancer surveillance. | | | | | | Status post transhiatal | | | | | | esophagectomywith | | | | | | gastric pull up on | | | | | | . Initially | | | | | | diagnosed with | | | | | | intramucosaladenocarcino | | | | | | ma in 12/2014. Question | | | | | | new pulmonary nodules | | | | | | worrisome formetastatic | | | | | | disease. COMPARISON: | | | | | | 07/03/2015. TECHNIQUE: | | | | | | CT of the chest, | | | | | | abdomen, and pelvis with | | | | | | intravenous and | | | | | | oraladministration of | | | | | | contrast.Number of | | | | | | images: 742 | | | | | | FINDINGS:THORAX: The | | | | | | visualized thyroid is | | | | | | within normal limits. No | | | | | | thoracic | | | | | | adenopathy.Postoperative | | | | | | changes of an | | | | | | esophagectomy with | | | | | | gastric conduit are | | | | | | noted. Nopleural or | | | | | | pericardial effusions. | | | | | | The heart is normal in | | | | | | size. New | | | | | | groundglassnodularity | | | | | | within both upper lobes | | | | | | are likely infectious. | | | | | | No suspicious nodulesin | | | | | | the lower lobes the | | | | | | right middle lobe. | | | | | | LIVER: | | | | | | Unremarkable.BILIARY: | | | | | | Unremarkable.SPLEEN: | | | | | | Unremarkable.PANCREAS: | | | | | | Unremarkable. ADRENALS: | | | | | | Unremarkable.KIDNEYS/URE | | | | | | TERS: Bilateral renal | | | | | | cortical hypodensities | | | | | | are stable and | | | | | | likelyrepresent simple | | | | | | cysts with the largest | | | | | | measuring 2.7 cm in the | | | | | | left lowerpole. Several | | | | | | nonobstructing bilateral | | | | | | renal stones are | | | | | | unchanged with | | | | | | largestmeasuring 6 mm | | | | | | (image 118) in the left | | | | | | lower pole.PELVIC | | | | | | ORGANS/BLADDER: | | | | | | Unremarkable. GI TRACT: | | | | | | Extensive sigmoid | | | | | | diverticulosis without | | | | | | diverticulitis. The | | | | | | bowelloops are not | | | | | | dilated.PERITONEUM: No | | | | | | free air or fluid.LYMPH | | | | | | NODES: No | | | | | | lymphadenopathy.VESSELS: | | | | | | Extensive | | | | | | atherosclerotic disease | | | | | | is noted throughout the | | | | | | area andbranch vessels. 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 BONES AND | | | | | | SOFT TISSUES: Diffuse | | | | | | osteopenia is noted. | | | | | | Stable orthopedic | | | | | | hardwareis noted. Stable | | | | | | sternotomy wires. No | | | | | | suspicious osseous | | | | | | abnormalities. | | | | | | IMPRESSION:Since | | | | | | 07/03/2015, there has | | | | | | been interval | | | | | | development of bilateral | | | | | | upper lobegroundglass | | | | | | nodularity that is | | | | | | likely infectious. Short | | | | | | interval followup | | | | | | wouldbe helpful to | | | | | | assess resolution. | | | | | | Attending Radiologists: | | | | | | SHU ARECHIGA MDAuthor: | | | | | | SHU ARECHIGA MD I | | | | | | personally reviewed the | | | | | | images and, if | | | | | | necessary, edited the | | | | | | report. I agreewith the | | | | | | report as now presented. | | | | | | | | | | | | Final/Electronically | | | | | | signed / SHU ARECHIGA | | | | | | 05/18/2016 14:03 PM | | | | + + + + + + + + | Specimen | + + | | + + + +---------+ + + | Performing | Address | City/State/Zipcode | Phone Number | | Organization | | | | + +---------+ + + | [facility] DEPARTMENT OF | | | | | RADIOLOGY | | | | + +---------+ + + documented in this encounter Visit Diagnoses + + | Diagnosis | + + | Pulmonary nodules - Primary Other nonspecific abnormal finding of lung field | + + | History of esophageal cancer - pTisN0 Personal history of malignant neoplasm of | | esophagus | + + documented in this encounter"
--- OUTSIDE RECORDS SUMMARY | ~2020-01-10 | XMS | Encounter Summary ---
Demographics + + + | Address | [address] | | | [place] [address] | + + + | Home Phone | | + + + | Preferred Language | Unknown | + + + | Marital Status | | + + + | Taoist Affiliation | NON | + + + [...] [place] | | | | | [address] | | + + + + + | Ronny Rene | ECON | Unknown | | + + + + + | Char Woodard | ECON | Unknown | | + + + + + Care Team Providers + +------+ + | Care Clerk Checker Name | Role | Phone | + [...] | | | [address] | [facility] | | | | | [address] | [place], [place] | | | | | [place], | [address] | | | | | [address] [place] [address], | [phone] | | | | | [place] [address] | | | | | | [phone] | | | +--------+ + + + [...]
--- OUTSIDE RECORDS SUMMARY | ~2020-01-10 | XMS | Encounter Summary ---
Demographics + + + | Address | [address] | | | [place] [address] | + + + | Home Phone | | + + + | Preferred Language | Unknown | + + + | Marital Status | | + + + | Methodist Affiliation | Unknown | + + + | Race | Unknown | + + + | Ethnic Group | Unknown | + + + Author + + + | Author | [facility] | | | and [place] | + + + | Organization | [facility] | | | and [place] | + + + | Address | Unknown | + + + | Phone | Unavailable | + + + Support + + + + + | Name | Relationship | Address | Phone | + + + + + | Selena Jimenez | ECON | [id number] | | | | | [place] [address] | | + + + + + Care Team Providers + +------+ + | Care Carpet Repairer Name | Role | Phone | + +------+ + PCP | Unavailable | + +------+ + Encounter Details +--------+ + + + + | Date | Type | Department | Care Team | Description | +--------+ + + + + | 03/27/ | Hospital | [facility] | Bernice Antonio, | | | 2007 - | Encounter | MED CTR GENERIC OP | [address] | | | | | CONV DEPT [address] [place], | | | 04/18/ | | [place], | [place] [address] | | | 2007 | | [place] [address] | [phone] | | | | | [phone] | | | +--------+ + + + [...] [place], | | | | | | [place] [address] | | | | | | [phone] | | | | | | | | +--------+---------+ + + + documented as of this encounter Visit Diagnoses Not on filedocumented in this encounter"
--- OUTSIDE RECORDS SUMMARY | ~2020-01-10 | XMS | Encounter Summary ---
Demographics + + + | Address | [address] | | | [place] [address] | + + + | Home Phone | | + + + | Preferred Language | Unknown | + + + | Marital Status | | + + + | Holiness Affiliation | NON | + + + | Race | White | + + + | Ethnic Group | Not or | + + + Author + + + | Author | [facility] | + + + | Organization | [facility] | + + + | Address | Unknown | + + + | Phone | Unavailable | + + + Support + + + + + | Name | Relationship | Address | Phone | + + + + + | Selena Jimenez | ECON | [address] | | | | | [place] | | | | | [address] | | + + + + + | Ronny Rene | ECON | Unknown | | + + + + + | Char Woodard | ECON | Unknown | | + + + + + Care Team Providers + +------+ + | Care Call Specialist Name | Role | Phone | [...] | | 2015 | | Center at [facility] [address] | [address] | | | | | [facility] | [facility] | | | | | [facility] and | [place] [address] | | | | | [facility] [place] [address] | [phone] | | | | | [place], [place] | | | | | | [address] | | | | | | [phone] | | | +--------+ + + + [...]
--- OUTSIDE RECORDS SUMMARY | ~2020-01-10 | XMS | Encounter Summary ---
Demographics + + + | Address | [address] | | | [place] [address] | + + + | Home Phone | | + + + | Preferred Language | Unknown | + + + | Marital Status | | + + + | Pentecostalism Affiliation | NON | + + + [...] [place] | | | | | [address] | | + + + + + | Ronny Rene | ECON | Unknown | | + + + + + | Char Woodard | ECON | Unknown | | + + + + + Care Team Providers + +------+ + | Care Furniture Cleaner Name | Role | Phone | + +------+ + | Deondre Landis MD | PCP | | + +------+ + Reason for Visit + + + | Reason | Comments | + + + | Medical Records | [facility] - OUTSIDE IMAGING 07/03/15 Imaging Results (rust abd pelv CT | | Review | w/ contrast) | + + + Encounter Details +--------+ + + + + | Date | Type | Department | Care Team | Description | +--------+ + + + + | 07/04/ | Abstract | Digestive Health | Vijay Akbar MD | Medical Records | | 2015 | | Center at [facility] [address] | [address] | Review ([facility] - | | | | [facility] | [facility], | OUTSIDE IMAGING | | | | for Health and | [place] [address] | 07/03/15 Imaging | | | | Healing, [address] | [phone] | Results ([facility] | | | | [place], [place] | | pelv CT w/ | | | | [address] | | contrast)) | | | | [phone] | | | +--------+ + + + [...]
--- OUTSIDE RECORDS SUMMARY | ~2020-01-10 | XMS | Encounter Summary ---
Demographics + + + | Address | [address] | | | [place] [address] | + + + | Home Phone | | + + + | Preferred Language | Unknown | + + + | Marital Status | | + + + | Restoration Affiliation | NON | + + + | Race | White | + + + | Ethnic Group | Not or | + + + Author + + + | Author | [facility] | + + + | Organization | [facility] | + + + | Address | Unknown | + + + | Phone | Unavailable | + + + Support + + + + + | Name | Relationship | Address | Phone | + + + + + | Selena Jimenez | ECON | [address] | | | | | [place] | | | | | [address] | | + + + + + | Ronny Rene | ECON | Unknown | | + + + + + | Char Woodard | ECON | Unknown | | + + + + + Care Team Providers + +------+ + | Care Ophthalmic Medical Technologist Name | Role | Phone | + +------+ + | Deondre Landis MD | PCP | | + +------+ + Encounter Details +--------+ + + + + | Date | Type | Department | Care Team | Description | +--------+ + + + + | 11/18/ | Wrapping Machine Operator | Digestive Health | Char Castillo, | Acute deep vein | | 2018 | | Center at [facility] [address] | MD [address] | thrombosis (DVT) of | | | | [facility] | [address] [facility] [place] | non-extremity vein | | | | for Health and | [address] | (Primary Dx) | | | | Healing, [facility] [address] | [phone] | | | | | [place], [place] | | | | | | [address] | | | | | | [phone] | | | +--------+ + + + [...] + | Diagnosis | + + | Acute deep vein thrombosis (DVT) of non-extremity vein - Primary | + + documented in this encounter"
--- OUTSIDE RECORDS SUMMARY | ~2020-01-10 | XMS | Encounter Summary ---
Demographics + + + | Address | [address] | | | [place] [address] | + + + | Home Phone | | + + + | Preferred Language | Unknown | + + + | Marital Status | | + + + | Moravian Affiliation | NON | + + + | Race | White | + + + | Ethnic Group | Not or | + + + Author + + + | Author | [facility] | + + + | Organization | [facility] | + + + | Address | Unknown | + + + | Phone | Unavailable | + + + Support + + + + + | Name | Relationship | Address | Phone | + + + + + | Selena Jimenez | ECON | [address] | | | | | [place] | | | | | [address] | | + + + + + | Ronny Rene | ECON | Unknown | | + + + + + | Char Woodard | ECON | Unknown | | + + + + + Care Team Providers + +------+ + | Care Kiln Repairer Name | Role | Phone | + +------+ + | Deondre Landis MD | PCP | | + +------+ + Reason for Visit + + + | Reason | Comments | + + + | Medication requested | | + + + Encounter Details +--------+ + + + + | Date | Type | Department | Care Team | Description | +--------+ + + + + | 03/05/ | Telephone | Digestive Health | Vijay Akbar MD | Medication requested | | 2014 | | Center at [facility] [address] | [address] | | | | | [facility] | [facility] | | | | | [facility] and | [place] [address] | | | | | [place] [address] | [phone] | | | | | [place], [place] | | | | | | [address] | | | | | | [phone] | | | +--------+ + + + [...]
--- OUTSIDE RECORDS SUMMARY | ~2020-01-10 | XMS | Encounter Summary ---
Demographics + + + | Address | [address] | | | [place] [address] | + + + | Home Phone | | + + + | Preferred Language | Unknown | + + + | Marital Status | | + + + | Taoism Affiliation | NON | + + + | Race | White | + + + | Ethnic Group | Not or | + + + Author + + + | Author | [facility] | + + + | Organization | [facility] | + + + | Address | Unknown | + + + | Phone | Unavailable | + + + Support + + + + + | Name | Relationship | Address | Phone | + + + + + | Selena Jimenez | ECON | [address] | | | | | [place] | | | | | [address] | | + + + + + | Ronny Rene | ECON | Unknown | | + + + + + | Char Woodard | ECON | Unknown | | + + + + + Care Team Providers + +------+ + | Care Samples And Repairs Preparer Name | Role | Phone | + +------+ + | Deondre Landis MD | PCP | | + +------+ + Encounter Details +--------+ + + + + | Date | Type | Department | Care Team | Description | +--------+ + + + + | 01/07/ | [place] | Digestive Health | Rubin Lorenzo | Esophageal cancer | | 2015 | | Center at [facility] [address] | MD Doris [address] | (HCC) (Primary Dx) | | | | [facility] | [facility] | | | | | [facility] and | [place], [place] | | | | | [place] [address] | [address] | | | | | [place], [place] | [phone] | | | | | [address] | | | | | | [phone] | | | +--------+ + + + [...]
--- OUTSIDE RECORDS SUMMARY | ~2020-01-10 | XMS | Encounter Summary ---
Demographics + + + | Address | [address] | | | [place] [address] | + + + | Home Phone | | + + + | Preferred Language | Unknown | + + + | Marital Status | | + + + | Christianity Affiliation | NON | + + + | Race | White | + + + | Ethnic Group | Not or | + + + Author + + + | Author | [facility] | + + + | Organization | [facility] | + + + | Address | Unknown | + + + | Phone | Unavailable | + + + Support + + + + + | Name | Relationship | Address | Phone | + + + + + | Selena Jimenez | ECON | [address] | | | | | [place] | | | | | [address] | | + + + + + | Ronny Rene | ECON | Unknown | | + + + + + | Char Woodard | ECON | Unknown | | + + + + + Care Team Providers + +------+ + | Care Manager Electrical Name | Role | Phone | + +------+ + | Deondre Landis MD | PCP | | + +------+ + Encounter Details +--------+ + + + + | Date | Type | Department | Care Team | Description | +--------+ + + + + | 09/16/ | Gambling Broker | Digestive Health | Char Castillo, | Liver mass (Primary | | 2017 | | Center at [facility] [address] | MD [address] | Dx) | | | | [address] | [address] [place], [place] | | | | | for Health and | [address] | | | | | [place] [address] | [phone] | | | | | [place], [place] | | | | | | [address] | | | | | | [phone] | | | +--------+ + + + [...] on filedocumented as of this encounter Results OUTSIDE BODY - READ REQUEST (08/27/2017 12:00 AM PST) + + | Specimen | + + | | + + + + + | Narrative | Performed At | + + + | EXAM: Professional interpretation only of CT of the chest, abdomen | [facility] | | and pelvis with contrast performed at outside hospital DATE OF | RADIOLOGY VOICE | | INTERPRETATION REQUEST: 09/16/17 DATE OF IMAGE ACQUISITION: 08/27/17 | RECOGNITION | | HISTORY: History of esophagectomy for adenocarcinoma with negative | | | final pathology after treatment. Concerning liver lesion seen. | | | COMPARISON: Outside CT 03/23/16 TECHNIQUE: CT of the chest, | | | abdomen and pelvis with contrast performed at outside institution. | | | Coronal and sagittal reformats are provided. Number of images: 786 | | | FINDINGS: CHEST: The lungs show a cluster of small nodules isolate | | | the left upper lobe pulmonary. Several of these nodules were present | | | previously, but some are new, for instance 4 mm near the hilum (image | | | 48) and 6 mm (image 33). Previously seen right upper lobe nodules have | | | resolved. No pleural effusion. 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 No enlarged mediastinal, hilar or axillary | | | lymph nodes. Gastric conduit appears normal. LIVER: A new lesion | | | in the caudate is seen which measures approximately 5 x 3.2 cm. There | | | is suggestion of some rim enhancement and central hypoenhancement. | | | There is also a contiguous component in the pericaval space measuring | | | 2.9 x 2.4 cm which compresses the intrahepatic cava. This component | | | appears to density and could be necrotic or fluid. No other focal | | | liver abnormality is seen. The main portal vein and branches are | | | patent. BILIARY: Pericholecystic fluid is seen extending into the | | | falciform ligament and hilum. No gallbladder wall thickening to | | | suggest cholecystitis, however. SPLEEN: Unremarkable. PANCREAS: | | | Unremarkable. ADRENALS: Mild nodularity of the left adrenal is | | | stable and likely benign adenoma. KIDNEYS/URETERS: Stable scattered | | | renal cysts and nonobstructing tiny kidney stones. No hydronephrosis. | | | PELVIC ORGANS/BLADDER: Bladder is decompressed around a Joyner | | | catheter. GI TRACT: Inflammation and fluid is seen around the | | | duodenal bulb and D2. Severe diverticulosis of the sigmoid and | | | descending colon. Several diverticula in the hepatic flexure with | | | possible surrounding inflammation/fluid may represent diverticulitis | | | but no definite focal inflamed diverticulum is seen. The small bowel | | | is normal. . PERITONEUM: A small amount of free fluid in the right | | | paracolic gutter and around the liver. Note due to peritoneum. LYMPH | | | NODES: No lymphadenopathy. 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 BONES | | | AND SOFT TISSUES: Unremarkable. IMPRESSION: 1. New caudate liver | | | lesion with component that surrounds and compresses the intrahepatic | | | IVC. It is nonspecific but suggestion that this may represent a liver | | | abscess. Potential source for this would be either duodenal ulcer or | | | hepatic flexure diverticulitis (as there is inflammation around both | | | of these structures). Since it has been several weeks suggest | | | repeat liver CT at this time to look for evolution of the lesion. | | | 2. Cluster of nodules in the left lobe are presumably infectious or | | | inflammatory given localized nature and shifting pattern compared to | | | previous study. I have personally reviewed the images and, | | | if necessary, edited the report. I agree with the report as now | | | presented. | | + + + + + | Procedure Note | + + | Service Account, Radiant Res In Interface - 09/16/2017 3:07 PM PST EXAM: | | Professional interpretation only of CT of the chest, abdomen and pelvis with contrast | | performed at outside hospitalDATE OF INTERPRETATION REQUEST: 09/16/17DATE OF IMAGE | | ACQUISITION: 08/27/17HISTORY: History of esophagectomy for adenocarcinoma with negative | | final pathology after treatment. Concerning liver lesion seen.COMPARISON: Outside CT | | 03/23/16TECHNIQUE: CT of the chest, abdomen and pelvis with contrast performed at outside | | institution. Coronal and sagittal reformats are provided. Number of images: | | 786FINDINGS:CHEST: The lungs show a cluster of small nodules isolate the left upper lobe | | pulmonary. Several of these nodules were present previously, but some are new, for | | instance 4 mm near the hilum (image 48) and 6 mm (image 33). Previously seen right upper | | lobe nodules have resolved. No pleural effusion.Heart and great vessels demonstrate | | prior CABG. No enlarged mediastinal, hilar or axillary lymph nodes. Gastric conduit | | appears normal.LIVER: A new lesion in the caudate is seen which measures approximately 5 | | x 3.2 cm. There is suggestion of some rim enhancement and central hypoenhancement. | | There is also a contiguous component in the pericaval space measuring 2.9 x 2.4 cm which | | compresses the intrahepatic cava. This component appears to density and could be | | necrotic or fluid. No other focal liver abnormality is seen. The main portal vein and | | branches are patent.BILIARY: Pericholecystic fluid is seen extending into the falciform | | ligament and hilum. No gallbladder wall thickening to suggest cholecystitis, | | however.SPLEEN: Unremarkable.PANCREAS: Unremarkable.ADRENALS: Mild nodularity of the | | left adrenal is stable and likely benign adenoma.KIDNEYS/URETERS: Stable scattered renal | | cysts and nonobstructing tiny kidney stones. No hydronephrosis.PELVIC ORGANS/BLADDER: | | Bladder is decompressed around a Joyner catheter.GI TRACT: Inflammation and fluid is seen | | around the duodenal bulb and D2. Severe diverticulosis of the sigmoid and descending | | colon. Several diverticula in the hepatic flexure with possible surrounding | | inflammation/fluid may represent diverticulitis but no definite focal inflamed | | diverticulum is seen. The small bowel is normal. .PERITONEUM: A small amount of free | | fluid in the right paracolic gutter and around the liver. Note due to peritoneum.LYMPH | | NODES: No lymphadenopathy.VESSELS: Diffuse atherosclerosis with stable aneurysmal | | dilation of the left common iliac artery.BONES AND SOFT TISSUES: | | Unremarkable.IMPRESSION: 1. New caudate liver lesion with component that surrounds and | | compresses the intrahepatic IVC. It is nonspecific but suggestion that this may | | represent a liver abscess. Potential source for this would be either duodenal ulcer or | | hepatic flexure diverticulitis (as there is inflammation around both of these | | structures).Since it has been several weeks suggest repeat liver CT at this time to look | | for evolution of the lesion.2. Cluster of nodules in the left lobe are presumably | | infectious or inflammatory given localized nature and shifting pattern compared to | | previous study.I have personally reviewed the images and, if necessary, edited the | | report. I agree with the report as now presented. | | | |Since it has been several weeks suggest repeat liver CT at this time to look for evolution of the lesion. | | | |2. Cluster of nodules in the left lobe are presumably infectious or inflammatory given loca lized nature and shifting pattern compared to previous study. | | | | | | | [...] + | Diagnosis | + + | Liver mass - Primary Unspecified disorder of liver | + + documented in this encounter"
--- OUTSIDE RECORDS SUMMARY | ~2020-01-10 | XMS | Encounter Summary ---
Demographics + + + | Address | [address] | | | [place] [address] | + + + | Home Phone | | + + + | Preferred Language | Unknown | + + + | Marital Status | | + + + | Protestant Affiliation | NON | + + + [...] [place] | | | | | [address] | | + + + + + | Ronny Rene | ECON | Unknown | | + + + + + | Char Woodard | ECON | Unknown | | + + + + + Care Team Providers + +------+ + | Care Training Specialist Name | Role | Phone | + +------+ + | Deondre Landis MD | PCP | | + +------+ + Encounter Details +--------+ + + + + | Date | Type | Department | Care Team | Description | +--------+ + + + + | 09/27/ | Documentati | Digestive Health | Vijay Akbar MD | | | 2017 | on | Center at [facility] [address] | [address] | | | | | [facility] | [facility], | | | | | [facility] and | [place] [address] | | | | | [place] [address] | [phone] | | | | | [place], [place] | | | | | | [address] | | | | | | [phone] | | | +--------+ + + + [...]
--- OUTSIDE RECORDS SUMMARY | ~2020-01-10 | XMS | Encounter Summary ---
Demographics + + + | Address | [address] | | | [place] [address] | + + + | Home Phone | | + + + | Preferred Language | Unknown | + + + | Marital Status | | + + + | Congregational Affiliation | NON | + + + | Race | White | + + + | Ethnic Group | Not or | + + + Author + + + | Author | [facility] | + + + | Organization | [facility] | + + + | Address | Unknown | + + + | Phone | Unavailable | + + + Support + + + + + | Name | Relationship | Address | Phone | + + + + + | Selena Jimenez | ECON | [address] | | | | | [place] | | | | | [address] | | + + + + + | Ronny Rene | ECON | Unknown | | + + + + + | Char Woodard | ECON | Unknown | | + + + + + Care Team Providers + +------+ + | Care Rn Embedded Name | Role | Phone | + +------+ + | David Ferrera MD | PCP | | + +------+ + Reason for Referral PROC - Outpatient Surgery (Routine) +--------+--------+ + + + + | Status | Reason | Specialty | Diagnoses / | Referred By | Referred To | | | | | Procedures | Contact | Contact | +--------+--------+ + + + + | Closed | | Orthopedics | Diagnoses | Non-[facility] | [facility], | | | | | Other | Epic Dept | MD Glenn | | | | | closed | | [address] | | | | | displaced | | [place] | | | | | fracture of | | [address] [place], | | | | | proximal end | | [place] | | | | | of right | | [address] | | | | | humerus, | | Phone: | | | | | initial | | [phone] | | | | | encounter | | Fax: | | | | | Other | | [phone] | | | | | fracture of | | | | | | | shaft of | | | | | | | right | | | | | | | humerus, | | | | | | | initial | | | | | | | encounter | | | | | | | for closed | | | | | | | fracture | | | | | | | Procedures | | | | | | | REQUEST TO | | | | | | | SURGERY | | | | | | | TUB TENDER | | | | | | | AL OPEN RX | | | | | | | PROX HUMERUS | | | | | | | FX AL OPEN | | | | | | | FIXATN MID | | | | | | | HUMERUS | | | | | | | FRACTURE AL | | | | | | | OPEN BIA | | | | | | | FIXATN | | | | | | | HUMERAL | | | | | | | SHAFT FX | | | +--------+--------+ + + + + Reason for Visit + + + | Reason | Comments | + + + | New Patient Visit | | + + + Encounter Details +--------+---------+ + + + | Date | Type | Department | Care Team | Description | +--------+---------+ + + + | 01/25/ | Office | Orthopaedics | Glenn Siegel MD | Shoulder pain, | | 2019 | Visit | [facility] at [facility] | [address] | unspecified | | | | for Health and | [facility] [address] | chronicity, | | | | Healing [address] | [place], [place] | unspecified | | | | Page [facility] for | [address] | laterality (Primary | | | | Health and Healing, | [phone] | Dx); Other closed | | | | Building | | displaced fracture | | | | floor [place], [place] | | of proximal end of | | | | [address] | | right humerus, | | | | [phone] | | initial encounter | +--------+---------+ + + + Social History [...] + + + + | Weight | 72.1 kg (159 lb) | 01/25/2019 10:37 AM | | | | | PDT | | + + + + + | Height | 175.3 cm (5' 9") | 01/25/2019 10:37 AM | | | | | PDT | | + + + + + | Body Mass Index | 23.48 | 01/25/2019 10:37 AM | | | | | PDT | | + + + + + documented in this encounter Progress Notes Glenn Siegel MD - 01/25/2019 11:10 AM PDT This is a 79 y.o. right-handed male who presented for consultation with regards to a compla int of right shoulder pain of 2 weeks duration. The pain began suddenly and has remained co nstant. History of a precipitating event was positive by way of a fall onto the outstretche d hand with immediate pain and deformity of the right shoulder. Pain is present across the anterior shoulder. The patient has an average pain level of 10 out of 10, characterized as constant and interfering with sleep. The patient experiences pa in confined to the shoulder region. The pain is of sharp quality. The patient has aggravat ion of the pain with any shoulder movement. The pain is improved with pain medication. The patient has not previously undergone treatment other than use of a poorly fitting sling. Vitals: 01/25/19 1037 Weight: 72.1 kg (159 lb) Height: 1.753 m (5' 9") PainSc: 10 - Worst Possible Pain PainLoc: Arm (Right) Past Medical History: Diagnosis Date Back pain, chronic Coronary artery disease GERD (gastroesophageal reflux disease) Hearing loss bialteral hearing aids Heart attack (HCC) Hyperlipidemia Knee pain, chronic Severe esophageal dysplasia Undiagnosed cardiac murmurs Past Surgical History Procedure Laterality Date Cabg x 2 2007 Colonoscopy Shoulder surgery Right Back surgery x 4 Inguinal hernia repair Left Appendectomy Esophagectomy, laparscopic 03/28/2015 transhiatal esophagectomy, Dr. Akbar at [facility] Left neck incision and drainage Left 04/02/2015 2/2 anastomotic leak Laparoscopic placement of jejunostomy feeding tube 03/28/2015 Dr. Akbar, [facility] Egd (esophagogastroduodenoscopy) 03/28/2015 Dr. Akbar, [facility] Current Outpatient Medications on File Prior to Visit Medication Sig Dispense Refill aspirin chewable (CHILDRENS ASPIRIN) 81 mg oral tablet,chewable Chew and swallow 81 mg once daily. atorvastatin 80 mg oral tablet 1 tablet by feeding tube route once daily. (Patient yanni nguyễn differently: Take 80 mg by mouth once daily. ) 1 tablet 0 cholecalciferol (Vitamin D3) (VITAMIN D3) 1,000 unit oral tablet Take 1,000 Units by [facility] daily. HYDROcodone-acetaminophen 5-325 mg oral tablet Take 1 tablet by mouth every six hours a s needed. 0 multivitamin with folic acid 400 mcg oral tablet Take 400 mcg by mouth once daily. omeprazole 40 mg oral capsule,delayed release(DR/EC) Take 1 capsule by mouth once daily . 30 capsule 3 No current facility-administered medications on file prior to visit. Allergies Allergen Reactions Adhesive Tape Rash Paper tape is fine to use Fam: Non-contributory Social History Socioeconomic History Marital status: Spouse name: Not on file Number of children: Not on file Years of education: Not on file Highest education level: Not on file Occupational History Not on file Social Needs Financial resource strain: Not on file Food insecurity: Worry: Not on file Inability: Not on file Transportation needs: Medical: Not on file Non-medical: Not on file Tobacco Use Smoking status: Former Smoker Packs/day: 1.00 Years: 50.00 Pack years: 50.00 Types: Cigarettes Last attempt to quit: 12/25/2007 Years since quittin.1 Smokeless tobacco: Former User Types: Snuff Tobacco comment: smokey moutain pure mint leaves snuff (nicotine free) Substance and Sexual Activity Alcohol use: Not Currently Alcohol/week: 7.0 oz Types: 14 Standard drinks or equivalent per week Comment: previously drank two large bourdon drinks nightly until January 16 Drug use: No Sexual activity: Not on file Lifestyle Physical activity: Days per week: Not on file Minutes per session: Not on file Stress: Not on file Relationships Social connections: Talks on phone: Not on file Gets together: Not on file Attends episcopalian service: Not on file Active member of club or organization: Not on file Attends meetings of clubs or organizations: Not on file Relationship status: Not on file Intimate partner violence: Fear of current or ex partner: Not on file Emotionally abused: Not on file Physically abused: Not on file Forced sexual activity: Not on file Other Topics Concern Not on file Social History Narrative Not on file The review of systems is included on the patient intake form. This was reviewed and no new pertinent positives were present. The patient appeared awake, alert and oriented. The patient appeared older than the stated age, in fairly good general health and in mild apparent distress. Vitals were Ht 1.753 m ( 5' 9") | Wt 72.1 kg (159 lb) | BMI 23.48 kg/m | BSA 1.87 m . The patient had normal contour and symmetry of the upper extremities with no ecchymosis, swelling or muscular atrop hy. The patient has abnormal contour of the right upper extremities in the region of the shoul myranda with ecchymosis and swelling noted across the deltoid region. Examination of the skin d emonstrates no surgical scars or other abnormalities The patient has normal cervical range of motion in flexion, extension, lateral bending and rotation. There is no spinal or paraspinal pain or tenderness to palpation. Spurling's sig n is negative. The patient has normal spinal alignment in the cervical and thoracic regions with equal mely ulder heights and normal and symmetric scapulothoracic motion seen during active elevation a nd lowering of the arms. Right shoulder range of motion measures 30 degrees of active elevation, 30 degrees of passi ve elevation, -20 degrees external rotation and internal rotation to none. Left shoulder range of motion measures 140 degrees of active elevation, 140 degrees of pass jaun elevation, 30 degrees external rotation and internal rotation to abdomen. Palpation of the right shoulder produced anterior and posterior glenohumeral joint line ten derness. Strength testing of the right shoulder was deferred due to patient discomfort but the anter ior and middle deltoid was palpated to fire voluntarily. The patient had normal light touch sensation across the upper extremity, including lateral and medial aspects of the arm and forearm and the palmar and dorsal aspect of the hand and f ingers. Radial and ulnar pulses were normal. Radiographs were reviewed and were interpreted as showing a comminuted, displaced and gross ly shortened right proximal humerus oblique fracture with significant apparent soft tissue i nterposition causing substantial gapping between fracture fragments. ASSESSMENT: This patient presents with an acute right proximal humeral shaft fracture with comminution and gross displacement and shortening. The relative risk and benefits of conserv ative and operative treatment options were reviewed in detail and the patient's questions we re answered. The concern for nonunion with conservative treatment was discussed at length. PLAN: A PARQ session was held in which we discussed the risks, benefits, and all surgical a nd non-surgical alternatives to this surgery. The patient was informed that the risks includ e but are not limited to , infection, damage to nerves, vessels, bone, tendons, cartila ge, muscle, and post-operative stiffness. There may be need for further surgery and no surg susan has a guarantee of success for any stated goals. The patient had an opportunity to have all of his questions answered to help understand the procedure and postoperative course. T he patient expressed an interest in proceeding with surgery and a surgical booking for open reduction with internal fixation was therefore submitted. Delia Coelho MA - 01/25/2019 11:10 AM PDTI fitted a ove r shoulder humerus fracture brace on this patient s right arm. documented in this enco unter Plan of Treatment Not on filedocumented as of this encounter Procedures + +--------+ + + + | Procedure Name | Priori | Date/Time | Associated Diagnosis | Comments | | | ty | | | | + +--------+ + + + | ORDERS OTHER | | 01/25/2019 | | Results for this | | [...] Service Account, Radiant Res In Interface - 01/25/2019 12:59 PM PDT [...] Mau Stewart MD 01/25/2019 12:58 PM Preliminary: Sammy Freedman MD Dictation | | initiated: Sammy Freedman [...] MD 01/25/2019 12:58 PM | |Preliminary: Sammy Freedman MD | |Dictation initiated: Sammy Freedman MD 01/25/2019 12:39 PM | + + + +---------+ + + | Performing | Address | City/State/Zipcode | Phone Number | | Organization | | | | + +---------+ + + | [facility] | | | | | [facility]NITION [facility] | | | | + +---------+ + + ORDERS OTHER (01/25/2019 12:00 AM PDT) + + + | Narrative | Performed At | + + + | | | + + + documented in this encounter Visit Diagnoses + + | Diagnosis | + + | Shoulder pain, unspecified chronicity, unspecified laterality - Primary | + + | Other closed displaced fracture of proximal end of right humerus, initial encounter | + + documented in this encounter
--- OUTSIDE RECORDS SUMMARY | ~2020-01-10 | XMS | Encounter Summary ---
Demographics + + + | Address | [address] | | | [place] [address] | + + + | Home Phone [...] [place] | | | | | [address] | | + + + + + | Ronny Rene | ECON | Unknown | | + + + + + | Char Woodard | ECON | Unknown | | + + + + + Care Team Providers + +------+ + | Care Laboratory Geneticist Name | Role | Phone | + +------+ + | Deondre Landis MD | PCP | | + +------+ + Encounter Details +--------+ + + + + | Date | Type | Department | Care Team | Description | +--------+ + + + + | 04/25/ | Hospital | Radiology/Imaging | | | | 2014 | Encounter | Lab at [facility] [address] | | | | | | [facility] | | | | | | for Health and | | | | | | Healing, [address], | | | | | | 3rd Floor | | | | | | [place], [place] | | | | | | [address] | | | | | | [phone] | | | +--------+ + + + [...] | 1 | 04/11/20 | | | [id number] | tube route once | | | [...] | | | | | FINDINGS: Initial traffic maintenance supervisor | | | | | | image demonstrates a | | | | | | Perry drain at the | | | | [...]
--- OUTSIDE RECORDS SUMMARY | ~2020-01-10 | XMS | Encounter Summary ---
Demographics + + + | Address | [address] | | | [place] [address] | + + + | Home Phone | | + + + | Preferred Language | Unknown | + + + | Marital Status | | + + + | Druze Affiliation | Unknown | + + + | Race | Unknown | + + + | Ethnic Group | Unknown | + + + Author + + + | Author | [facility] | | | and [place]yana | + + + | Organization | [facility] | | [...] | | | | | [place] [address] | | + + + + + Care Team Providers + +------+ + | Care Prototype Model Maker Name | Role | Phone | [...] | CARDIOLOGY [address] | MD [address] [place] | | | | | [place], | [place], | | | | | [place] [address] | [place] [address] | | | | | [phone] | [phone] | | | | | | | [...] [place], | | | | | | [place] [address] | | | | | | [phone] | | | | | | | | +--------+---------+ + + + documented as of this encounter Visit Diagnoses Not on filedocumented in this encounter"
--- OUTSIDE RECORDS SUMMARY | ~2020-01-10 | XMS | Encounter Summary ---
Demographics + + + | Address | [address] | | | [place] [address] | + + + | Home Phone | | + + + | Preferred Language | Unknown | + + + | Marital Status | | + + + | Episcopalian Affiliation | Unknown | + + + | Race | Unknown | + + + | Ethnic Group | Unknown | + + + Author + + + | Author | [facility] | | | and [place] | + + + | Organization | [facility] | | | and [...] | | | | | [place] [address] | | + + + + + Care Team Providers + +------+ + | Care Director Cost Name | Role | Phone | + [...] + + | 09/18/ | Office | [facility] | Paulo Antonio, | Coronary artery | | 2014 | Visit | CARDIOLOGY [address] | [address] [facility] | disease involving | | | | [place], | [place], | [place] coronary | | | | [place] [address] | [place] [address] | artery of [place] | | | | [phone] | [phone] | heart without angina | | | | | | pectoris (Primary | | | | | | Dx); Essential | | | | | | hypertension | +--------+---------+ + + + Social History [...] + +-------+---+---+ + + | Comments: quit March 2015 due to Esophageal cancer | + + + + +---------+ + [...] + + + | Blood Pressure | 156/80 | 09/18/2015 1:12 PM | left arm | | | | PST | | + + + + + | Pulse | 60 | 09/18/2015 1:12 PM | regular | | | | PST | | + + + + + | Temperature | - | - | | + + + + + | Respiratory Rate | 16 | 09/18/2015 1:12 PM | | | | | PST | | + + + + + | Oxygen Saturation | - | - | | + + + + + | Inhaled Oxygen | - | - | | | Concentration | | | | + + + + + | Weight | 75.7 kg (166 lb 12.8 | 09/18/2015 1:12 PM | | | | oz) | PST | | + + + + + | Height | 172.7 cm (5' 8") | 09/18/2015 1:12 PM | | | | | PST | | + + + + + | Body Mass Index | 25.36 | 09/18/2015 1:12 PM | | | | | PST | | + + + + + documented in this encounter Progress Notes Paulo Antonio MD - 09/18/2015 1:20 PM PSTFormatting of this note might be different f rom the original. PATIENT NAME: Junaid Jimenez : 1940: AGE: 75 y.o. PRIMARY CARE: Mingo Burgos DO OUTPATIENT FOLLOW UP VISIT Date of Service: 09/18/2015 HISTORY OF PRESENT ILLNESS: Junaid Jimenez is a 75 y.o.man with a history of coronary artery disease, post CABG x 2 in 12/2007, hypertension, hyperlipidemia, gastroesophageal reflux disease and remote smoking. Patient is being seen today for a treatment of his CAD and hypertension. He was last seen on 09/18/2014 at which time patient was cleared to pursue esophageal surge ry to treat esophageal cancer. Since that time, patient underwent a esophagectomy at [facility] o n 03/27/15. He was told during the 6 month follow-up that he is cancer free. Today, patient is feeling good from cardiac standpoint. Patient is physically active and e [place]ercises [place] There is no chest pain or chest discomfort b oth at rest and on exertion. Patient denies breathlessness. There is no palpitation dizzin ess or lightheadedness. There is no ankle or [...] nightly. lisinopril (PRINIVIL, ZESTRIL) 20 mg tablet meloxicam (MOBIC) 15 mg tablet Take [...] tablet, call 911. 25 tablet 11 omeprazole (FIRST-OMEPRAZOLE) 2 mg/mL suspension 5 No current facility-administered medications for this visit. ALLERGIES Allergies Allergen Reactions Adhesive & Tape Rash ROS Review of Systems Constitutional: Negative for fever, chills, weight loss, malaise/fatigue and diaphoresis. HENT: Positive for hearing loss and tinnitus. Negative for congestion, nosebleeds and sore throat. Eyes: Negative for blurred vision and double vision. Respiratory: Positive for cough. Negative for shortness of breath and wheezing. Cardiovascular: Negative for chest pain, palpitations, orthopnea, claudication, leg swellin g and PND. Gastrointestinal: Negative for heartburn, nausea, vomiting, abdominal pain, diarrhea, const ipation, blood in stool and melena. Genitourinary: Positive for frequency. Negative for dysuria, urgency, hematuria and flank p ain. Musculoskeletal: Positive for myalgias, back pain and joint pain. Negative for falls and ne ck pain. Skin: Negative for itching and rash. Neurological: Negative for dizziness, tingling, tremors, seizures, loss of consciousness, w eakness and headaches. Endo/Heme/Allergies: Negative for environmental allergies and polydipsia. Does not bruise/b leed easily. Psychiatric/Behavioral: Negative for memory loss. The patient is not nervous/anxious and do es not have insomnia. OBJECTIVE: PHYSICAL EXAM BP 156/80 mmHg | Pulse 60 | Resp 16 | Ht 1.727 m (5' 8") | Wt 75.66 kg (166 lb 12.8 oz) | B RI 25.37 kg/m2 Physical Exam Constitutional: He appears well-developed and well-nourished. No distress. Elderly, male individual without acute distress. Neck: Normal carotid [...] exh ibit a depressed mood. ECG: Sinus rhythm, normal EKG. LAB RESULTS: LIPID Lab Results [...] 07/01/2014 HCTEX 39.9* 07/01/2014 PLTEX 236 07/01/2015 I reviewed records from Roderick Gill MD for office visit on 07/16/14. ASSESSMENT: 1. Coronary artery disease: A. Left [...] remai ns in class I of the [place] functional class. 2. Hypertension: A. Today his blood pressure is mildly elevated 3. Hyperlipidemia: A. He is on simvastatin 80 mg a day. His lipid profile from 07/01/14 looks oscar astic. 4. Erectile dysfunction A. Today, patient mentioned that he has a difficulty to maintain his erection. 5. Esophageal cancer A. Patient underwent a esophagectomy at [facility] on 03/27/15. He was told during the 6 month fo llow-up that he is cancer free. PLAN: 1. Check blood pressure x 2 weeks. 2. Follow-up in one year. Electronically signed by: Paulo Antonio MD [facility] 09/18/2015 Portions of this chart may have been created with [employer] voice recognition software. Occasi onal wrong-word or [...] | 02/14/ | Office | Cardiology | Ciaransiaisabella Siaciaran, | | | 2019 | Visit | | [address] | | | | | | [place], | | | | | | [place] [address] | | | | | | [phone] | | | | | | | | +--------+---------+ + + + documented as of this encounter Procedures + +--------+ + + + | Procedure Name | Priori | Date/Time | Associated Diagnosis | Comments | | | ty | | | | + +--------+ + + + | ECG 12 LEAD | Routin | 09/18/2015 | Coronary artery | Results for this | | | e | 1:13 PM | disease involving | procedure are in the | | | | PST | [place] coronary | results section. | | | | | artery of [place] | | | | | | heart without angina | | | | | | pectoris Essential | | | | | | hypertension | | + +--------+ + + + documented in this encounter Results ECG 12 lead (09/18/2015 1:13 PM PST) + + + + + + | Component | Value | Ref Range | Performed | Pathologist | | | | | At | Signature | + + + + + + | VENTRICULAR | 60 | BPM | [facility] | | | RATE EKG | | | | | + + + + + + | ATRIAL RATE | 60 | BPM | [facility] | | + + + + + + | P-R | 130 | ms | [facility] | | | INTERVAL | | | | | + + + + + + | QRS | 80 | ms | [facility] | | | DURATION | | | | | + + + + + + | Q-T | 406 | ms | [facility] | | | INTERVAL | | | | | + + + + + + | Q-T | 406 | ms | [facility] | | | INTERVAL | | | | | | (CORRECTED) | | | | | + + + + + + | P WAVE AXIS | 67 | degrees | [facility] | | + + + + + + | QRS AXIS | 21 | degrees | [facility] | | + + + + + + | T AXIS | 33 | degrees | [facility] | | + + + + + + | INTERPRETAT | Normal sinus | | [facility] | | | ION TEXT | rhythmNormal ECGNo | | | | | | previous ECGs | | | | | | availableConfirmed by | | | | | | ENOCH DUNCAN, PAULO | | | | | | [id number]) on 09/22/2015 | | | | | | 7:51:16 AM | | | | + + [...] + + | Coronary artery disease involving [place] coronary artery of [place] heart without | | angina pectoris - Primary | + + | Essential hypertension Unspecified essential hypertension | + + documented in this encounter
--- OUTSIDE RECORDS SUMMARY | ~2020-01-10 | XMS | Encounter Summary ---
Demographics + + + | Address | [address] | | | [place] [address] | + + + | Home Phone | | + + + | Preferred Language | Unknown | + + + | Marital Status | | + + + | Mu-Ism Affiliation | NON | + + + | Race | White | + + + | Ethnic Group | Not or | + + + Author + + + | Author | [facility] | + + + | Organization | [facility] | + + + | Address | Unknown | + + + | Phone | Unavailable | + + + Support + + + + + | Name | Relationship | Address | Phone | + + + + + | Selena Jimenez | ECON | [address] | | | | | [place] | | | | | [address] | | + + + + + | Ronny Rene | ECON | Unknown | | + + + + + | Char Woodard | ECON | Unknown | | + + + + + Care Team Providers + +------+ + | Care Skein Washer Name | Role | Phone | + [...] | | | | | | | [facility] | | | | | | | Health and | | | | | | | Healing, | | | | | | | [address] | | | | | | | [place], [place] | | | | | | | [address] | | | | | | | Phone: | | | | | | | [phone] | | | | | | | Fax: | | | | | | | [phone] | +--------+--------+ + + + + Encounter Details +--------+---------+ + + + | Date | Type | Department | Care Team | Description | +--------+---------+ + + + | 01/22/ | Office | Digestive Health | Vijay Akbar MD | History of | | 2016 | Visit | Center at [facility] [address] | [address] | esophageal cancer | | | | [facility] | Latesha Soliz [place], | (Primary Dx) | | | | for Health and | [place] [address] | | | | | [place] [address] | [phone] | | | | | [place], [place] | | | | | | [address] | | | | | | [phone] | | | +--------+---------+ + + + [...] + + + | Blood Pressure | 143/72 | 01/23/2016 11:18 AM | | | | | PDT | | + + + + + | Pulse | 59 | 01/23/2016 11:18 AM | | | | | PDT | | + + + + + | Temperature | 36.4 C (97.5 F) | 01/23/2016 11:18 AM | | | | | PDT | | + + + + + | Respiratory Rate | 16 | 01/23/2016 11:18 AM | | | | | PDT | | + + + + + | Oxygen Saturation | 100% | 01/23/2016 11:18 AM | | | | | PDT | | + + + + + | Inhaled Oxygen | - | - | | | Concentration | | | | + + + + + | Weight | 75.2 kg (165 lb 11.2 | 01/23/2016 11:18 AM | | | | oz) | PDT | | + + + + + | Height | 180.3 cm (5' 11") | 01/23/2016 11:18 AM | | | | | PDT | | + + + + + | Body Mass Index | 23.11 | 01/23/2016 11:18 AM | | | | | PDT | | + + + + + documented in this encounter Progress Notes Cyndy Hutton MD - 01/23/2016 11:25 AM [facility] FOLLOW UP NOTE 01/23/2016 ID: Junaid Jimenez is a 75 y.o. male who underwent laparoscopic transhiatal esophagectomy on 03/27, complicated by deep neck space infection that was drained in the operating room on 04/02. 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 Interval History: The patient was last seen in June of 2015. He was doing exceptionally well at that time and gaining weight. He returns with no complaints, however, his endorses persistent and worsening cough productive of thin, frothy sputum. He denies hemoptysis or thick sputum. He is good oral intake, supplemented by Ensure three times daily. His reports that he fills quickly and does not take in even half of his previous intake prior to surgery. He has no restrictions on his diet, but does endorse dysphagia to meats only. If he cuts the meat into small pieces and chews thoroughly, he is able to swallow fine without gagging or coughi ng the remnants back up. His has to cut his two large pills into pieces in order for hi m to swallow them. 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 He denies abdominal pain, difficulty breathing or SOB, chest pain. No N/V. Occasional diarr hea after eating soup. O: Ht 1.803 m (5' 11"), Wt 75.161 kg (165 lb 11.2 oz), BP 143/72, Pulse 59, Temperature 36.4 C (97.5 F), Temperature source Oral, RR 16, SpO2 100%, BMI 23.12 kg/(m^2). Physical Exam Constitutional: He is oriented to person, place, and time. He appears well-developed and we ll-nourished. No distress. HENT: Head: Normocephalic and atraumatic. Left sided neck incision is well healed. No fluid collection or erythema. No evidence of ly mphadenopathy. Bilateral hearing aids in place. Eyes: Conjunctivae are normal. Neck: No tracheal deviation present. Cardiovascular: Normal rate. Pulmonary/Chest: Effort normal. No stridor. No respiratory distress. He has no wheezes. Abdominal: Soft. He exhibits no distension. There is no tenderness. There is no rebound and no guarding. Previous J tube site well healed. Neurological: He is alert and oriented to person, place, and time. Skin: Skin is warm and dry. He is not diaphoretic. Psychiatric: He has a normal mood and affect. His behavior is normal. Judgment and thought content normal. A/P: Junaid Jimenez is a 75 y.o. male who underwent laparoscopic transhiatal esophagectomy on 03/27 for noninvasive high-grade dysplasia, which was complicated by deep neck space infection that was drained in the operating room on 04/02/15. He is overall doing well. He reports int ermittent dysphagia to solids (meat) and persistent cough productive of thin, frothy secreti ons. He is maintaining weight with 3 Ensures per day and good oral intake of regular diet. W e discussed with the patient to observe for signs/symptoms of worsening dysphagia and poolin g of secretions requiring more frequent cough, as this may be sign of esophageal stricture a nd would require EGD with dilation. An order for an external CT C/A/P with contrast was zackery fernández, which may be obtained closer to home, for March 2016. Unless he has worsening issues wit h dysphagia requiring a soon visit, he will return to clinic in March,. The patient was seen, examined and plan formulated with Dr. Akbar. Cyndy Hutton MD [facility], [id number] STAFF: I personally interviewed the patient, performed the pertinent parts of the physical examina tion and personally formulated the plan with the resident. I agree with the residents docum entation and have documented any additions or exceptions. documented in this encou nter Plan of Treatment Not on filedocumented as of this encounter Visit Diagnoses + + | Diagnosis | + + | History of esophageal cancer - Primary Personal history of malignant neoplasm of | | esophagus | + + documented in this encounter
--- OUTSIDE RECORDS SUMMARY | ~2020-01-10 | XMS | Encounter Summary ---
Demographics + + + | Address | [address] | | | [place] [address] | + + + | Home Phone [...] [place] | | | | | [address] | | + + + + + | Ronny Rene | ECON | Unknown | | + + + + + | Char Woodard | ECON | Unknown | | + + + + + Care Team Providers + +------+ + | Care Manufacturing Sales Representative Name | Role | Phone | [...] | | 2017 | | Center at [facility] [address] | [address] | (omeprazole 40mg) | | | | [facility] | [facility], | | | | | [facility] and | [place] [address] | | | | | [address] | [phone] | | | | | [place], [place] | | | | | | [address] | | | | | | [phone] | | | +--------+--------+ + + + [...]
--- OUTSIDE RECORDS SUMMARY | ~2020-01-10 | XMS | Encounter Summary ---
Demographics + + + | Address | [address] | | | [place] [address] | + + + | Home Phone | | + + + | Preferred Language | Unknown | + + + | Marital Status | | + + + | Sabianism Affiliation | NON | + + + | Race | White | + + + | Ethnic Group | Not or | + + + Author + + + | Author | [facility] | + + + | Organization | [facility] | + + + | Address | Unknown | + + + | Phone | Unavailable | + + + Support + + + + + | Name | Relationship | Address | Phone | + + + + + | Selena Jimenez | ECON | [address] | | | | | [place] | | | | | [address] | | + + + + + | Ronny Rene | ECON | Unknown | | + + + + + | Char Woodard | ECON | Unknown | | + + + + + Care Team Providers + +------+ + | Care Machine Sewer Name | Role | Phone | + [...] + + + + | 01/30/ | Hospital | Outpatient Care | Glenn Siegel MD | | | 2019 - | Encounter | Unit at [address] | [address] | | | | | [address] | [address] | | | 01/31/ | | Mailcode: Center | [place], [place] | | | 2019 | | for Health and | [address] | | | | | [facility], [facility] [address] | [phone] | | | | | [place], [place] | | | | | | [address] | | | | | | [phone] | | | +--------+ + + + [...] + +-------+---+---+ + + | Comments: ramiro rosadomikayla pure mint leaves snuff (nicotine free) | [...] 0.5-1.5 tablets | 25 | 0 | // | | | (immediate release) | by [...] EXTREMITY, Manolo Gallego MD PGY-3 Orthopedic Pager: [phone] [facility] Department of Orthopaedics & Rehabilitation [address] [place] [address] Mail Code: [address] [place] [id number] Nurys Lan RN - 01/31/2019 1:31 AM PDT01:00 Pt's HR reaching low 120s on the pulse oximeter. Pt den ies pain, SOB, or chest pain. BP 104/58. KRYSTA Martinez notified. 500 LR bolus ordered and giv en. ORGAN TUNER ELECTRONIC saw pt at bedside. Will continue to monitor and reassess HR. 01:31 Pt voiding hourly. Bladder scan read 315mL. Bladder non-distended, pt denies discomfo rt. KRYSTA Martinez notified. Continuing to monitor at this time. Oma Banegas AGACNP - 2019 10:10 PM PDT Overnight Progress Note Author: SHERLYN Talbot-BC Attending Physician: Glenn Siegel MD I assumed overnight care of this patient, reviewed their Primary Surgical Team's sign out r eport, and physically assessed the patient. Please see the primary providers note for com plete elements of the surgical report and post operative plan. SUBJECTIVE Brief HPI: Junaid Jimenez is a 79 y.o. male with a PMHx significant for CAD, OK, HLD, GERD, Chronic back pain, severe esophageal [...] calm, NAD. Neuro: AAOX4, responses appropriate. HEENT: EYAK. Respiratory: Normal WOB, CTAB anteriorly, on RA. [...] mL/hr, 6 mL/hr, inj, CONTINUOUS New Ba/14 160 Scheduled Medication Dose/Rate, Route, Frequency Last Action [...] to participate in this patient's care. SHERLYN Talbot-[facility] General Surgery [facility] Outpatient Care Unit Pager# [phone] 10:11 PM 2019 documented i n this [...] At | + + + | Glenn Siegel MD 02/03/2019 2:11 PM Date: 2019 | | | Attending Surgeon: Glenn Siegel M.D. Practice Nurse(s): Manolo | | | MD Lashonda Preoperative [...] | at 6 weeks. Glenn Siegel MD, [facility]) Professor Of Oceanography | | | Department of Orthopaedics and Rehabilitation [facility] | | | [facility] | | + + + CAPILLARY BLOOD [...] + + + + | [facility] | [address] | [place] [address] | | | OF CARE TESTS | [...] | + + + + + | [facility] | [address] | [place] [address] | | | SERVICES, [place] [facility] | | | | | HEALTH + [...] + + + | [facility] | [address] | [place] [address] | | | [facility] | | | | | HEALTH + [...] | Diagnosis | + + | Closed fracture of proximal end of humerus, unspecified fracture morphology, | | unspecified laterality, initial encounter - Primary | + + documented in [...] | | | | Starting Tue01/30/19 at 0905, | | | | | | | Until Tue01/30/19 at 0912 | | | | | | + +--------+ + +------+------+ + +---+ | | | + +---+ | acetaminophen (TYLENOL) tablet | | | 1 dose, Starting Tue01/30/19 at | | | 0909, Until Tue01/30/19 at 12 | | + +---+ | | | + +---+ + +-------+ +-------+---+---+ | aspirin chewable tablet 81 mg | Given | 02/01/20 | 81 mg | | | | 81 mg, oral, DAILY, First dose on | | 19 7:54 | | | | | Tue01/31/19 at 0900, Until | | AM PDT [...] | | | | | NEEDED, Starting Tu01/30/19 | | AM PDT | | | [...] | | | intravenous, ONCE, 1 dose, Tue | | 19 1:16 | | mL/hr | | | 01/31/19 at 0145 | | AM PDT | | | | + +---------+ +--------+-------+---+ +---+---+ | | | +---+---+ + +---------+ +--------+-------+---+ | lactated ringers IV 500 mL, | New Bag | 02/01/20 | 500 mL | 250 | | | intravenous, ONCE, 1 dose, Tue | | 19 6:20 | | mL/hr [...] | | | | | NEEDED, Starting Tu01/30/19 at | | | | | | [...] | | | | First dose on Tue01/30/19 at | | PM PDT | | [...] AM PDT | | | | | Tue01/30/19 at 2100, Until | | | | [...]
--- OUTSIDE RECORDS SUMMARY | ~2020-01-10 | XMS | Encounter Summary ---
Demographics + + + | Address | [address] | | | [place] [address] | + + + | Home Phone [...] [place] | | | | | [address] | | + + + + + | Ronny Rene | ECON | Unknown | | + + + + + | Char Woodard | ECON | Unknown | | + + + + + Care Team Providers + +------+ + | Care Retail Inventory Control Clerk Name | Role | Phone | + [...] | +--------+ + + + + | 11/11/ | Telephone | Digestive Health | Char Castillo, | Radiology Order | | 2017 | | Center at [facility] [address] | [address] | | | | [address] [facility] | [address] [place], [place] | | | | | for Health and | [address] | | | | | [place] [address] | [phone] | | | | | [place], [place] | | | | | | [address] | | | | | | [phone] | | | +--------+ + + + [...]
--- OUTSIDE RECORDS SUMMARY | ~2020-01-10 | XMS | Encounter Summary ---
Demographics + + + | Address | [address] | | | [place] [address] | + + + | Home Phone [...] + + + | Author | [facility] | + + + | Organization | [facility] | + + + [...] [place] | | | | | [address] | | + + + + + | Ronny Rene | ECON | Unknown | | + + + + + | Char Woodard | ECON | Unknown | | + + + + + Care Team Providers + +------+ + | Care Recenterer Name | Role | Phone | + [...] Description | +--------+---------+ + + + | 04/02/ | Surgery | 6A Intra Op 3181 | Vijay Akbar MD | LEFT NECK WASHOUT | | 2014 | | [facility] [place] | [address] | | | | | [facility] | [facility] | | | | | Hospital Admitting | [place] [address] | | | | | Desk Located on the | [phone] | | | | | 9th floor | | | | | | [place], [place] | | | | | | [address] | | | +--------+---------+ + + + [...] chronic 7) Knee pain, chronic 8) hx MS (myocardial infarction) 9) Hearing loss 10) Esophageal adenocarcinoma 11) Unintentional weight loss 12) Dysphagia Patient Active Problem List Diagnosis Chronic LBP Acid reflux HLD (hyperlipidemia) BP (high blood pressure) Anastomotic leak following esophagectomy GERD (gastroesophageal reflux disease) Hypertension Cheema's esophagus Back pain, chronic Knee pain, chronic hx MS (myocardial infarction) Hearing loss Esophageal adenocarcinoma Unintentional [...] Gastric Motility Qty: 180 tablet, Refills: 0 nkrozbihjxvp-sjwm-akoftnqa oral liquid 15 mL by feeding tube [...] lb 10.8 oz) (04/06/15 050) Destination: Destination: [facility]dc Facility [facility] Condition on Discharge Stable Discharge POLST completed Full code Discharge Summary Completed?: Yes, 07 Apr 2015 Discharging Provider: ALE GIPSON MD Date Completed: 07 Apr 2015 Discharging Attending: Vijay Akbar MD documented in this encou nter Discharge Instructions Instructions Lizzette Krishna RN - 04/01/2015 Your nurse child welfare caseworker with [facility] is [place]; she can be reached at [phone]. documented in this encounter Medications at Time [...] PM PDTReport called to nurse Nupur at [facility]. [phone]. Ale Conrad MD - 04/06/2015 9:01 AM [...] will repeat swallow 04/10 prior to clinic. Demar intain morales drains. WBC mildly improved. Abx: [...] seen with Dr. Akbar. Ale Gipson MD [facility] Surgery R5 Pager [phone] lark, Ale Lester MD - 04/05/2015 9:29 [...] seen with Dr. Akbar. Ale Gipson MD [facility] Surgery R5 Pager [phone] Gio Ramirez MD - 04/04/2015 8:59 AM [...] once today Enoxaparin PPI Gio Lowery MD [facility], General Surgery R-1 P: [phone] Ale Gerardo MD - 04/03/2015 4:24 PM [...] air. 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 CELSO PALMER, MSN, ACNP- Nurse Practitioner [facility] [address] [place] [address] Celso Lopez NP - 7:52 AM PDT INPATIENT ADULT PAIN SERVICE NEURAXIAL BLOCK PROGRESS NOTE 04/03/2015 Author: CELSO LONG VENKATA, PAPER BALER POD#7. Status post: Trans-hiatal esophagectomy, pyloromyotomy, J tube placement, bilateral Chest tube placement, colopexy Past Medical History Diagnosis Date GERD (gastroesophageal reflux disease) HTN (hypertension) Cheema's esophagus Knee pain, chronic Back pain, chronic MS (myocardial infarction) s/p CABG x 2 Hearing [...] most activities. Mr. Meredith is satisfied with [facility] level of pain. History of chronic [...] 12.5 mg 12.5 mg feeding tube BID alpbbfrnwmkk-kmny-ftlxsehp (CEROVITE) liquid 15 mL 15 mL feeding [...] and summary of old medical records (source: [employer]), as summarized in the body of the note. Personal review of laboratory results. CELSO PALMER, MSN, ACNP- Nurse Practitioner [facility] [address] [place] [address] Bebe Hung MD - 04/02/2015 7:22 PM [...] Dispo: acute care Bebe Baldwin MD Pager: [phone] lark, Ale Lester MD - 04/02/2015 7:41 [...] MD at 015 7:44 AM PDTOng, Celso Sutton NP - 04/02/2015 7:36 AM PDT INPATIENT ADULT PAIN SERVICE NEURAXIAL BLOCK PROGRESS NOTE 04/02/2015 Author: CELSO SUTTON VENKATAKRYSTA Sanchez POD# 6. Status post: Trans-hiatal esophagectomy, pyloromyotomy, J tube placement, bilater al Chest tube placement, colopexy Past Medical History Diagnosis Date GERD (gastroesophageal reflux disease) HTN (hypertension) Cheema's esophagus Knee pain, chronic Back pain, chronic MS (myocardial infarction) s/p CABG x 2 Hearing [...] 12.5 mg 12.5 mg feeding tube BID yixmwzxiyrec-pnuw-zuwmtgyg (CEROVITE) liquid 15 mL 15 mL feeding [...] and summary of old medical records (source: [employer]), as summarized in the body of the note. Personal review of laboratory results. CELSO PALMER, MSN, ACNP- Nurse Practitioner [facility] [address] [place] [address] Bulmaro Pitt MD,MPH - 04/01/2015 6:36 PM [...] at 13:37 demonstrating no pneumothorax. etcu, Jennifer, [facility] - 04/01/2015 10:24 AM PDTFormatting of this [...] CV - BPs wnl. Tachycardia improved. Hx CAD/MS - s/p CABG x 2 in 2007, [...] and preauth for [place] enoxaparin SAMANTHA GUNN [address] [facility] Mailcode: Kpv13 [place] [address] Celso Lopez NP - 8:45 AM PDT INPATIENT ADULT PAIN SERVICE NEURAXIAL BLOCK PROGRESS NOTE 04/01/2015 Author: CELSO PALMER NP POD#5. Status post: Trans-hiatal esophagectomy, pyloromyotomy, J tube placement, bilateral Chest tube placement, colopexy Past Medical History Diagnosis Date GERD (gastroesophageal reflux disease) HTN (hypertension) Cheema's esophagus Knee pain, chronic Back pain, chronic MS (myocardial infarction) s/p CABG x 2 Hearing [...] 12.5 mg 12.5 mg feeding tube BID zpvdlojbmlnf-awdw-etxvobnz (CEROVITE) liquid 15 mL 15 mL feeding [...] nd summary of old medical records (source: [employer]), as summarized in the body of the note. Personal review of radiological images. Personal review of laboratory results. CELSO PALMER, MSN, ACNP- Nurse Practitioner [facility] [address] [place] [address] Gio Ramirez MD - 0 03/31/2015 11:20 [...] air. 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 Tachycardia improved. Hx CAD/MS - s/p CABG x 2 in 2007, [...] we staff with Dr Edgard Lowery MD [facility], General Surgery ng, Celso Sutton NP - 0 03/31/2015 8:07 AM PDT INPATIENT ADULT PAIN SERVICE NEURAXIAL BLOCK PROGRESS NOTE 03/31/2015 Author: CELSO PALMER NP POD#4. Status post: Trans-hiatal esophagectomy, pyloromyotomy, J tube placement, bilatera l Chest tube placement, colopexy Past Medical History Diagnosis Date GERD (gastroesophageal reflux disease) HTN (hypertension) Cheema's esophagus Knee pain, chronic Back pain, chronic MS (myocardial infarction) s/p CABG x 2 Hearing [...] 12.5 mg 12.5 mg feeding tube BID dtscwpmyynzv-dsqn-vpdqalnc (CEROVITE) liquid 15 mL 15 mL feeding [...] and summary of old medical records (source: [employer]), as summarized in the body of the note. Personal review of radiological images. Personal review of laboratory results. 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 Tachycardia improved. Hx CAD/MS - s/p CABG x 2 in 2007, [...] staff with Dr Edgard Hernandez MD, MPH [address] Division of Plastic & Reconstructive Surgery Pager: [phone] uMau - 03/30 8:54 AM PDT Trauma / [...] 72 hours (or 3 results) Recent Labs 03/28/1521003/29/1563703/30/152 WBC 18.11* 24.61* 21.51* HB 11.8* 10.8* 9.5* HCT 35.2* 32.9* 28.2* PLT 219 188 161 Chemistries: Last 72 Hours (or 3 results): Recent Labs 03/28/1521003/29/1538 03/29/15 18303/29/15195603/30/15441 NA 140 -- 139 -- -- -- [...] 12.5 mg 12.5 mg feeding tube BID ordlitgfphmx-bwew-rvbmkqlw (CEROVITE) liquid 15 mL 15 mL feeding [...] subcutaneous daily, last dose given yesterday at 2 hrs. Lab Results Component Value Date INRPT [...] borderline HTN, no arrhthymias overnight. Tachycardic. Hx CAD/MS - s/p CABG x 2 in 20 [...] with Dr Edgard Hernandez MD, MPH R2 [facility] Division of Plastic & Reconstructive Surgery Pager: [phone] Justo Palm MD - 03/29/2015 8:11 AM [...] injection 5 mg 5 mg intravenous Q6H pgikehfyfmcm-zxmq-ywmzfnlv (CEROVITE) liquid 15 mL 15 mL feeding [...] I edited this note. JUSTO AGUILAR MD uMau - 03/28/2015 1:54 PM PDT Trauma / [...] 3 results) Recent Labs 03/26/15 1545 03/27/15 14103/27/15 1522 03/28/15 0211 WBC 12.17* -- -- [...] Garcia on TSICU rounds. Mau Cisse MS4 [facility] Bulmaro Pitt MD ,MPH - 03/28/2015 11:14 [...] - borderline HTN, no arrhthymias overnight. Hx CAD/MS - s/p CABG x 2 in 2007, [...] with Dr Edgard Hernandez MD, MPH R2 [facility] Division of Plastic & Reconstructive Surgery Pager: [phone] Bob Mares MD - 03/28/2015 11:09 AM PDTTrauma / Surgical Critical Care Service - Progress Note Name: JUNAID MEREDITH Date: 03/28/2015 Time: 11:09 AM Author: BOB EDOUARD MD HPI: 75 y.o. male with history of severe GERD and Cheema's for 3 years. He was diagnosed with h igh-grade Cheema's and referred to [facility] for ablation. However, In December 2014 and [...] Bob Edouard MD General Surgery, R2 Pager [phone] Dept of Surgery SICU/TICU Contact First Call [...] pulmonary toilet. Justo Garcia MD, MPH, FACS, [facility] colon therapist Trauma, Surgical Critical Care, & Acute Care Surgery [facility] [phone] Ivanna Moreno MD - 03/28/2015 8:23 AM [...] Attending Physician: Vijay Akbar MD Co Surgeon: Ttio Rene MD Assistants: MD Bulmaro BROCK MD [...] MIS Fellow [facility] Dept. of Surgery Pager [phone] documented in t his encounter Plan of [...] e | 5:55 AM | ([facility]) | procedure are in the [...] + +--------+ + + + | LACTATE (ART) POC | Routin | 03/27/2015 | [...] | + +--------+ + + + | HEMOGLOBIN-DONN POLLOCK | Routin | 03/27/2015 | Esophageal [...] +--------+ + + + | FELICIA ZOILA CA, POC | Routin | 03/27/2015 | Esophageal cancer | Results for this | | | e | 11:31 AM | (HCC) | procedure are in the | | | | PDT | | results section. | + +--------+ + + + | LACTATE (ART) POC | Routin | 03/27/2015 | [...] +--------+ + + + | FELICIA ZOILA RO POC | Routin | 03/27/2015 | Esophageal cancer | Results for this | | | e | 9:24 AM | (HCC) | procedure are in the | | | | PDT | | results section. | + +--------+ + + + | CARDIOLOGY | | 03/27/2015 | | Results for this | | | | 12:00 AM | | procedure are in the | | | | PDT | | results section. | + +--------+ + + + | CARDIOLOGY | | 03/27/2015 | | Results for this | | | | 12:00 AM | | procedure are in the | | | | PDT | | results section. | + +--------+ + + + | SURGICAL PATHOLOGY | Routin | 03/27/2015 | | Results for this | | | e | | | procedure are in the | | | | | | results section. | + +--------+ + + + documented in this encounter Results PROCEDURE NOTE (10/23/2015 1:26 PM PST)PROCEDURE NOTE (10/23/2015 1:26 PM PST)PROCEDURE N RITA (10/23/2015 1:16 PM PST)X-RAY ESOPHAGRAM (04/11/2015 9:30 [...] | | | | SUMAN GONGORAuthor: TOMA Yu | | | | | Ashley GONGORA [...] | | + +---------+ + + | [facility] DEPARTMENT OF | | [...] | + + + + + | [facility] | [address] | [place] [address] | | | SERVICES, CORE | LATESHA [...] [facility] | [address] | [place] [address] | | | SERVICES, CORE | [address] [...] | + + + + + | [facility] | [address] | [place] [address] | | | SERVICES, [place] | [address] | | | + [...] the MDRD equation recommended by the | [facility] | | National Kidney Disease Education Program. [...] | + + + + + | [facility] | [address] | [place] [address] | | | SERVICES, CORE | LATESHA [...] (H) | 60 - 99 mg/dL | [facility] - | | | GLUCOSE, | | [...] HERNANDEZ | [address] | [place], [place] | | | YG POINT OF CARE | [address] | [address] | | | TESTS | | | | + + + + + X-RAY PORTABLE CHEST 1 VIEW (04/05/2015 1:13 PM PDT) + + + + + + | Component | Value | Ref Range | Performed | Pathologist | | | | | At | Signature | + + + + + + | X-RAY | STUDY: MT CHEST 1 VIEW | | | | [...] HERNANDEZ | [address] | [place], [place] | | | YG POINT OF CARE | [address] | [address] | | | TESTS | | | [...] MARQUAM | [address] | [place], [place] | | | HILL, POINT OF CARE | [address] | [address] | | | TESTS | | | [...] | + + + + + | [facility] | [address] | [place] [address] | | | SERVICES, CORE | PARK [...] [facility] | [address] | [place] [address] | | | SERVICES, CORE | PARK [...] | + + + + + | [facility] | [address] | [place] [address] | | | SERVICES, CORE | [address] | | | + + + + + X-RAY PORTABLE CHEST 1 VIEW (04/05/2015 5:09 AM PDT) + + + + + + | Component | Value | Ref Range | Performed | Pathologist | | | | | At | Signature | + + + + + + | X-RAY | EXAM: MT CHEST 1 VIEW | | | | [...] HERNANDEZ | [address] | [place], [place] | | | [place] | [address] | [address] | | | TESTS | | | [...] DAVID | [address] | [place], [place] | | | [place] | [facility] | [address] | | | TESTS | | | [...] (H) | 60 - 99 mg/dL | [facility] - | | | GLUCOSE, | | [...] MARQUAM | [address] | [place], [place] | | | S[place] OF CARE | [address] | [address] | | | TESTS | | | [...] HERNANDEZ | [address] | [place], [place] | | | [place] | [facility] | [address] | | | TESTS | | | [...] | + + + + + | [facility] | [address] | [place] [address] | | | SERVICES, CORE | [address] | | | + + + + + MAGNESIUM, PLASMA (04/04/2015 5:08 AM PDT) + +-------+ + + + | Component | Value | Ref Range | Performed | Pathologist | | | | | At | Signature | + +-------+ + + + | MAGNESIUM,P | 2.0 | 1.8 - 2.5 mg/dL | [facility] | | | VANDANAMA | | | [...] | + + + + + | [facility] | [address] | [place] [address] | | | SERVICES, CORE | PARK [...] | + + + + + | [facility] | [address] | [place] [address] | | | SERVICES, [place] | [address] | | | + + + + + X-RAY PORTABLE CHEST 1 VIEW (04/04/2015 3:24 AM PDT) + + + + + + | Component | Value | Ref Range | Performed | Pathologist | | | | | At | Signature | + + + + + + | X-RAY | EXAM: MT CHEST 1 VIEW | | | | [...] MDAuthor: | | | | | | LAVNO OAKES MD I | | | | [...] | | | | | | FUSS 04/04/2015 9:22 AM | | | | | | | | | | + + + + + + + + | Specimen | + + | | + + + +---------+ + + | Performing | Address | City/State/Zipcode | Phone Number | | Organization | | | | + +---------+ + + | [facility] DEPARTMENT OF | | [...] MARQUAM | [address] | [place], [place] | | | YG POINT OF CARE | [address] | [address] | | | TESTS | | | [...] DAVID | [address] | [place], [place] | | | [place] OF CARE | [address] | [address] | | | TESTS | | | [...] (H) | 60 - 99 mg/dL | [facility] - | | | GLUCOSE, | | [...] HERNANDEZ | [address] | [place], [place] | | | [place] | [address] | [address] | | | TESTS | | | [...] | | | | | | FELIPE MDAuthor: DAPHNEY | | | | | | [...] + + | Performing | Address | City/State/[facility] | Phone Number | | Organization | | | | + +---------+ + + | [facility] DEPARTMENT OF | | [...] + + + | X-RAY | EXAM: MT CHEST 1 VIEW | | | | [...] LAVON | | | | | | FUSS, MDAuthor: KELBY | | | | | [...] | | + +---------+ + + | [facility] DEPARTMENT OF | | [...] DAVID | [address] | [place], [place] | | | [place] | [address] | [address] | | | TESTS | | | [...] | + + + + + | [facility] | [address] | [place] [address] | | | SERVICES, CORE | [address] | | | + + + + + MAGNESIUM, PLASMA (04/03/2015 5:40 AM PDT) + +-------+ + + + | Component | Value | Ref Range | Performed | Pathologist | | | | | At | Signature | + +-------+ + + + | MAGNESIUM,P | 2.2 | 1.8 - 2.5 mg/dL | [facility] [...] [facility] | [address] | [place] [address] | | | [place] | [address] [...] | + + + + + | [facility] | [address] | [place] [address] | | | SERVICES, CORE | LATESHA [...] (H) | 60 - 99 mg/dL | [facility] - | | | GLUCOSE, | | [...] HERNANDEZ | [address] | [place], [place] | | | [place] | [address] | [address] | | | TESTS | | | [...] mg/dL | [facility] - | | | GLUCOSE, | | [...] HERNANDEZ | [address] | [place], [place] | | | YG POINT OF CARE | [facility] | [address] | | | TESTS | | | [...] + | [facility] | [address] | [place] [address] | | | [place] | | | [...] MADYAM | [address] | [place], [place] | | | SADE [place] OF CARE | [address] | [address] | | | TESTS | | | [...] [facility] | [address] | [place] [address] | | | SERVICES, | [address] [...] | + + + + + | [facility] | [address] | [place] [address] | | | SERVICES, | [address] [...] + + + | X-RAY | EXAM: MT CHEST 1 VIEW | | | | [...] | | | | | | FUSS 04/02/2015 10:39 AM | | | | | | | | | | + + + + + + + + | Specimen | + + | | + + + +---------+ + + | Performing | Address | City/State/Zipcode | Phone Number | | Organization | | | | + +---------+ + + | [facility] DEPARTMENT OF | | [...] MARQUAM | [address] | [place], [place] | | | YG POINT OF CARE | [facility] | [address] | | | TESTS | | | [...] | + + + + + | [facility] | [address] | [place] [address] | | | SERVICES, [place] | [address] [...] | + + + + + | [facility] | [address] | [place] [address] | | | SERVICES, CORE | [address] [...] | + + + + + | [facility] | [address] | [place] [address] | | | SERVICES, CORE | LATESHA [...] MARQUAM | [address] | [place], [place] | | | S[place] OF CARE | [address] | [address] | | | TESTS | | | [...] + + + | [facility] | [address] | [place], [place] | | | YG POINT OF CARE | [address] | [address] | | | TESTS | | | [...] | + + + + + | [facility] | [address] | [place] [address] | | | SERVICES, CORE | [address] | | | + + + + + X-RAY PORTABLE CHEST 1 VIEW (04/01/2015 1:37 PM PDT) + + + + + + | Component | Value | Ref Range | Performed | Pathologist | | | | | At | Signature | + + + + + + | X-RAY | EXAM: MT CHEST 1 VIEW | | | | [...] | | + +---------+ + + | [facility] DEPARTMENT OF | | [...] + + + | [facility] HERNAN[facility] | [address] | [place], [place] | | | [facility] | [address] | [address] | | | TESTS | | | | + + + + + X-RAY PORTABLE CHEST 1 VIEW (04/01/2015 6:54 AM PDT) + + + + + + | Component | Value | Ref Range | Performed | Pathologist | | | | | At | Signature | + + + + + + | X-RAY | EXAM: MT CHEST 1 VIEW | | | | [...] HERNANDEZ | [address] | [place], [place] | | | [place] | [facility] | [address] | | | TESTS | | | [...] | + + + + + | [facility] | [address] | [place] [address] | | | SERVICES, CORE | [address] | | | + + + + + MAGNESIUM, PLASMA (04/01/2015 5:47 AM PDT) + +-------+ + + + | Component | Value | Ref Range | Performed | Pathologist | | | | | At | Signature | + +-------+ + + + | MAGNESIUM,P | 2.2 | 1.8 - 2.5 mg/dL | [facility] | | | LASMA | | | [...] | + + + + + | [facility] | [address] | [place] [address] | | | SERVICES, CORE | P[address] [...] | + + + + + | [facility] | [address] | [place] [address] | | | SERVICES, CORE | LATESHA [...] (H) | 60 - 99 mg/dL | [facility] - | | | GLUCOSE, | | [...] HERNANDEZ | [address] | [place], [place] | | | YG POINT OF CARE | [address] | [address] | | | TESTS | | | [...] (H) | 60 - 99 mg/dL | [facility] - | | | GLUCOSE, | | [...] MARQUAM | [address] | [place], [place] | | | YG POINT OF CARE | [address] | [address] | | | TESTS | | | [...] HERNANDEZ | [address] | [place], [place] | | | SADE [place]ONQU[place] OF CARE | [facility] | [address] | | | TESTS | | | [...] MARQUAM | [address] | [place], [place] | | | YG POINT OF CARE | [address] | [address] | | | TESTS | | | | + + + + + X-RAY PORTABLE CHEST 1 VIEW (03/31/2015 5:38 AM PDT) + + + + + + | Component | Value | Ref Range | Performed | Pathologist | | | | | At | Signature | + + + + + + | X-RAY | EXAM: MT CHEST 1 VIEW | | | | [...] | | + +---------+ + + | [facility] DEPARTMENT OF | | [...] | + + + + + | [facility] | [address] | [place] [address] | | | SERVICES, CORE | LATESHA [...] [facility] | [address] | [place] [address] | | | SERVICES, [place] | [address] [...] | + + + + + | [facility] | [address] | [place] [address] | | | SERVICES, CORE | [address] [...] DAVID | [address] | [place], [place] | | | SHI RONQUILLO | [facility] | [address] | | | TESTS | | | [...] HERNANDEZ | [address] | [place], [place] | | | [place] | [address] | [address] | | | TESTS | | | | + + + + + X-RAY PORTABLE CHEST 1 VIEW (03/30/2015 5:54 AM PDT) + + + + + + | Component | Value | Ref Range | Performed | Pathologist | | | | | At | Signature | + + + + + + | X-RAY | STUDY: MT CHEST 1 VIEW | | | | [...] | + + + + + | [facility] | [address] | [place] [address] | | | SERVICES, CORE | [address] | | | + + + + + MAGNESIUM, PLASMA (03/30/2015 4:42 AM PDT) + +-------+ + + + | Component | Value | Ref Range | Performed | Pathologist | | | | | At | Signature | + +-------+ + + + | MAGNESIUM,P | 1.8 | 1.8 - 2.5 mg/dL | [facility] | | | [facility] | | | LABORATORY | | | [...] | + + + + + | [facility] | [address] | [place] [address] | | | SERVICES, CORE | LATESHA [...] the MDRD equation recommended by the | [facility] | | National Kidney Disease Education Program. Estimated GFR | LABORATORY | | Interpretive Information: <60 mL/min/1.73 sq m | [facility] | | Chronic Kidney Disease <15 mL/min/1.73 [...] | + + + + + | [facility] | [address] | [place] [address] | | | [place] [facility] | LATESHA [...] [facility] | | | [place] | by [address] | | [address] | | | | [address], [facility] | | PTH - [facility] | | | | [id number] | | | | | | [phone].Bluespec. | | | | | | Omer [...] [facility] | [address] | [place], [place] | | | UNIV PTH - [facility] | | [id number] | | + + + + + [...] + + + | [facility] | [address] | [place], [place] | | | [facility] | [address] | [address] | | | TESTS | | | [...] [facility] | [address] | [place], [place] | | | [facility] | [address] | [address] | | | TESTS | | | [...] [facility] | [address] | [place] [address] | | | [place], [place] | [address] | | | + + + + + [facility] ONLY (03/29/2015 12:22 PM PDT) + + + + + + | Component | Value | Ref Range | Performed | Pathologist | | | | | At | Signature | + + + + + + | [facility]) | [facility] | | [facility] | | | | | | LABORATORY | | | | | | NELLY, | | | | | | MONROE | | + + + + + [...] [facility] | [address] | [place] [address] | | | SERVICES, CORE | PARK [...] [facility] | [address] | [place] [address] | | | SERVICES, CORE | PARK [...] | + + + + + | [facility] | [address] | [place] [address] | | | SERVICES, CORE | LATESHA [...] 83 | 60 - 99 mg/dL | [facility] - | | | GLUCOSE, | | [...] HERNANDEZ | [address] | [place], [place] | | | SADE RONQUILLO OF CARE | [address] | [address] | | | TESTS | | | [...] | + + + + + | [facility] | [address] | [place] [address] | | | SERVICES, CORE | [address] | | | + + + + + MAGNESIUM, PLASMA (03/29/2015 6:38 AM PDT) + +-------+ + + + | Component | Value | Ref Range | Performed | Pathologist | | | | | At | Signature | + +-------+ + + + | MAGNESIUM,P | 2.0 | 1.8 - 2.5 mg/dL | [facility] | | | LASMA | | | [...] | + + + + + | [facility] | [address] [address] [address] | [place] [address] | | | SERVICES, CORE | LATESHA [...] the MDRD equation recommended by the | [facility] | | National Kidney Disease Education Program. [...] | + + + + + | [facility] | [address] | [place] [address] | | | SERVICES, CORE | [address] | | | + + + + + X-RAY PORTABLE CHEST 1 VIEW (03/29/2015 5:57 AM PDT) + + + + + + | Component | Value | Ref Range | Performed | Pathologist | | | | | At | Signature | + + + + + + | X-RAY | EXAM: MT CHEST 1 VIEW | | | | [...] | | Attending Surgeon: Vijay Akbar MD Manager Sap(s): Tito Rene MD | | MD Bulmaro [...] trocar, 11 mm, using the | | VersaStep system w, approximately 17 cm from the [...] to our mediastinal dissection. We placed a [place] drain around | | our esophagus, and [...] of the specimen. We then passed a 28-Khmer | | chest tube from the neck [...] 03/27/2015 | | 18:54:08DT: 03/27/2015 21:17:00Job #: [id number] | + + CAPILLARY BLOOD GLUCOSE (NO [...] [facility] | [address] | [place], [place] | | | HILL, POINT OF CARE | [address] | [address] | | | TESTS | | | | + + + + + X-RAY PORTABLE CHEST 1 VIEW (03/28/2015 6:05 AM PDT) + + + + + + | Component | Value | Ref Range | Performed | Pathologist | | | | | At | Signature | + + + + + + | X-RAY | EXAM: MT CHEST 1 VIEW | | | | [...] | | + +---------+ + + | [facility] DEPARTMENT OF | | [...] | + + + + + | [facility] | [address] | [place] [address] | | | SERVICES, CORE | LATESHA [...] the MDRD equation recommended by the | [facility] | | National Kidney Disease Education Program. [...] | + + + + + | [facility] | [address] | [place] [address] | | | SERVICES, CORE | PARK [...] | + + + + + | [facility] | [address] | [place] [address] | | | SERVICES, CORE | [address] | | | + + + + + X-RAY PORTABLE CHEST 1 VIEW (03/27/2015 3:50 PM PDT) + + + + + + | Component | Value | Ref Range | Performed | Pathologist | | | | | At | Signature | + + + + + + | X-RAY | EXAM: MT CHEST 1 VIEW | | | | [...] | | | | | | CHAMP MDAuthor: SHELLI | | | | | [...] | | | | | | CHAMP 03/27/2015 16:42 PM | | | | | | | | | | + + + + + + + + | Specimen | + + | | + + + +---------+ + + | Performing | Address | City/State/Zipcode | Phone Number | | Organization | | | | + +---------+ + + | [facility] | | | | [...] DAVID | [address] | [place], [place] | | | SADE [place]ONQUILLO OF CARE | [address] | [address] | | | TESTS | | | [...] | + + + + + | [facility] | [address] | [place] [address] | | | SERVICES, CORE | PARK [...] | + + + + + | [facility] | [address] | [place] [address] | | | SERVICES, CORE | [address] [...] the MDRD equation recommended by the | [facility] | | National Kidney Disease Education Program. Estimated GFR | LABORATORY | | Interpretive Information: <60 mL/min/1.73 sq m | [facility] | | Chronic Kidney Disease <15 mL/min/1.73 [...] | + + + + + | [facility] | [address] | [place] [address] | | | SERVICES, CORE | PARK [...] - [facility] | [address] | [place], [place] | | | YG POINT OF CARE | [address] | [address] | | | TESTS | | | | + + + + + SODIUM, POC (03/27/2015 2:16 PM PDT) + +-------+ [...] HERNANDEZ | [address] | [place], [place] | | | S[facility] [place] OF CHRIS | [facility] | [address] | | | TESTS | | | [...] [facility] | [address] | [place], [place] | | | SADE [place] OF CARE | [address] | [address] | | | TESTS | | | [...] [facility] | [address] | [place], [place] | | | SADE [place]ONQUILL[place] OF CARE | [address] | [address] | | | TESTS | | | [...] | | | POC | | | [facility] | | | | | | SADE [...] HERNANDEZ | [address] | [place], [place] | | | YG POINT OF CARE | [address] | [address] | | | TESTS | | | [...] [facility] | [address] | [place], [place] | | | SADE [place]ON[place] OF CARE | [address] | [address] | | | TESTS | | | [...] DAVID | [address] | [place], [place] | | | SADE [place]QUILL[place] OF CARE | [address] | [address] | | | TESTS | | | [...] | | | JAYDON, | | | [facility] | | | [...] DAVID | [address] | [place], [place] | | | SADE [place]ONQU[place]O OF CARE | [address] | [address] | | | TESTS | | | [...] + | [facility] | [address] | [place], [place] | | | SADE [place] OF CARE | [address] | [address] | | | TESTS | | | [...] HERNANDEZ | [address] | [place], [place] | | | [facility] OF [facility] | [facility] | [address] | | | TESTS | | | [...] DAVID | [address] | [place], [place] | | | SADE [place] OF CARE | [address] | [address] | | | TESTS | | | [...] DAVID | [address] | [place], [place] | | | S[place] OF CHRIS | [facility] | [address] | | | TESTS | | | | + + + + + CHLORIDE, POC (03/27/2015 12:40 PM PDT) + +-------+ + + + | Component | Value | Ref Range | Performed | Pathologist | | | | | At | Signature | + +-------+ + + + | CHLORIDE, | 108 | 97 - 108 mmol/L | [facility] - | | | POC | | [...] DAVID | [address] | [place], [place] | | | YG POINT OF CARE | [address] | [address] | | | TESTS | | | [...] | IONIZED CA, | | mmol/L | DAVID | | | POC | [...] HERNANDEZ | [address] | [place], [place] | | | S[place] OF [place]RIS | [facility] | [address] | | | TESTS | | | | + + + + + HEMOGLOBIN-DONN POLLOCK (03/27/2015 12:40 PM PDT) + + + [...] MAR[facility] | [address] | [place], [place] | | | S[place] OF CHRIS | [address] | [address] | | | TESTS | | | [...] HERNANDEZ | [address] | [place], [place] | | | SADE RONQUILLO OF CARE | [facility] | [address] | | | TESTS | | | | + + + + + LOUISE (MICHEL)DONN (03/27/2015 11:31 AM PDT) + +-------+ + [...] + | [facility] | [address] | [place], [place] | | | SADE [place] OF CHRIS | [address] | [address] | | | TESTS | | | [...] - DAVID | [address] | [place], [place] | | | S[place] OF [facility] | [facility] | [address] | | | TESTS | | | [...] MADYAM | [address] | [place], [place] | | | S[facility] [place] OF [facility] | [address] | [address] | | | TESTS | | | [...] HERNANDEZ | [address] | [place], [place] | | | S[place] OF [place]RIS | [facility] | [address] | | | TESTS | | | | + + + + + DONN PENA (03/27/2015 11:31 AM PDT) + +-------+ + [...] [facility] | [address] | [place], [place] | | | [facility] OF [facility] | [facility] | [address] | | | TESTS | | | [...] MAR[facility] | [address] | [place], [place] | | | SADE [place]ONQUILLO OF CARE | [facility] | [address] | | | TESTS | | | [...] HERNANDEZ | [address] | [place], [place] | | | SADE [place]ONQUILLO OF CARE | [facility] | [address] | | | TESTS | | | [...] [facility] | [address] | [place], [place] | | | SADE [place]ONQUILLO OF CARE | [facility] | [address] | | | TESTS | | | | + + + + + LACTATE (ART), POC (03/27/2015 9:24 AM PDT) + +-------+ [...] HERNANDEZ | [address] | [place], [place] | | | YG POINT OF CARE | [address] | [address] | | | TESTS | | | | + + + + + SODIUM POC (03/27/2015 9:24 AM PDT) + +-------+ [...] [facility] | [address] | [place], [place] | | | YG POINT OF CARE | [address] | [address] | | | TESTS | | | [...] DAVID | [address] | [place], [place] | | | SADE RONQUILLO OF CARE | [address] | [address] | | | TESTS | | | [...] HERNANDEZ | [address] | [place], [place] | | | SADE RONQUILLO OF CARE | [address] | [address] | | | TESTS | | | [...] [facility] | [address] | [place], [place] | | | S[facility] [place] OF [facility]RIS | [facility] | [address] | | | TESTS | | | [...] - [facility] | [address] | [place], [place] | | | YG POINT OF CARE | [address] | [address] | | | TESTS | | | | + + + + + HEMOGLOBIN-COOX POC (03/27/2015 9:24 AM PDT) + + [...] [facility] | [address] | [place], [place] | | | SADE [place] OF CHRIS | [address] | [address] | | | TESTS | | | [...] + + | [facility] | [address] | [place], [place] | | | SADE [place]ONQUILLO OF CARE | [facility] | [address] | | | TESTS | | | [...] abnormality | | | | | | ()- Gastric and | | | | | [...] | | | | | Case seen by:oZë | | | | | | Brittany Hong/Surgical | | | | | | Pathology ResidentDavid | | | | | | Darcy Cook | | | | | | MAshvin/PathologistT: | | | | | | 5:kleli | | | | | | Intraoperative [...] | | | | | | (initials JLZ) and: | | | | | | [...] | | | | | | diagnosis. Theozen | | | | | | section [...] | | | | | | | Hog Operator | | | | | | E: [...] proximal | | | | | | [id number], | | | | | | sequential sections | | | | | | adjacent to proximal | | | | | | esophageal dulbtvY21, | | | | | | branch sales and service representative | | | | | | perpendicular section of | | | | | | distal gastric | | | | | | zavpvnU51, entire | | | | | | adipose tissue from mid | | | | | | esophagus, entire | | | | | | fatD18, distal | | | | | | esophagus, five possible | | | | | | lymph uvyfgX99-15, | | | | | | distal esophagus, | | | | | | remaining fatD21, five | | | | | | possible lymph vwgjaR29, | | | | | | five possible lymph | | | | | | egzvkN33, five possible | | | | | | lymph mnpmgX99, one | | | | | | possible lymph nodeD25, | | | | | | distal stomach, four | | | | | | possible lymph xltdiH52, | | | | | | distal [...] Cook | | | | | | Wendy | | | | | | bridget Edwards 04/01/2015 | | | | | | 5:10PM | | | | + + + + + + + + | Specimen | + + | | + + + + + + + | Performing | Address | City/State/Zipcode | Phone Number | | Organization | | | | + + + + + | [facility] | [address] | [place] [address] | | | PATHOLOGY | [address] [...]
--- OUTSIDE RECORDS SUMMARY | ~2020-01-10 | XMS | Encounter Summary ---
Demographics + + + | Address | [address] | | | [place] [address] | + + + | Home Phone [...] [place] | | | | | [address] | | + + + + + | Ronny Rene | ECON | Unknown | | + + + + + | Char Woodard | ECON | Unknown | | + + + + + Care Team Providers + +------+ + | Care Tray Service Worker Name | Role | Phone | [...] | 2017 | on | Center at [facility] [address] | [address] | | | | | [facility] | Park [facility], | | | | | [facility] and | [place] [address] | | | | | [place] [address] | [phone] | | | | | [place], [place] | | | | | | [address] | | | | | | [phone] | | | +--------+ + + + [...]
--- OUTSIDE RECORDS SUMMARY | ~2020-01-10 | XMS | Encounter Summary ---
Demographics + + + | Address | [address] | | | [place] [address] | + + + | Home Phone | | + + + | Preferred Language | Unknown | + + + | Marital Status | | + + + | Adventist Affiliation | NON | + + + | Race | White | + + + | Ethnic Group | Not or | + + + Author + + + | Author | [facility] | + + + | Organization | [facility] | + + + | Address | Unknown | + + + | Phone | Unavailable | + + + Support + + + + + | Name | Relationship | Address | Phone | + + + + + | Selena Jimenez | ECON | [address] | | | | | [place] | | | | | [address] | | + + + + + | Ronny Rene | ECON | Unknown | | + + + + + | Char Woodard | ECON | Unknown | | + + + + + Care Team Providers + +------+ + | Care Trial Manager Name | Role | Phone | [...] + + + | Closed | | Gastroenterol | Diagnoses | Raffy, | Gas Endo | | | | ogy | Other | MD Vijay | [address] | | | | | dysphagia | [address] | [address] | | | | | H/O | [facility] | [facility] | | | | | esophagectom | | [facility] and | | | | | y | [place], [place] | Healing, | | | | | Procedures | [address] | [address] | | | | | CONSULT TO | Phone: | [place], [place] | | | | | GI PROCEDURE | [phone] | [address] | | | | | UNIT: EGD | Fax: | Phone: | | | | | | [phone] | [phone] | | | | | | | Fax: | | | | | | | [phone] | +--------+--------+ + + + + Reason for Visit + + + | Reason | Comments | + + + | Vomiting | | + + + Encounter Details +--------+ + + + + | Date | Type | Department | Care Team | Description | +--------+ + + + + | 05/18/ | Telephone | Digestive Health | Vijay Akbar MD | Vomiting | | 2015 | | Center [place] [address] [address] | [address] | | | | | [facility] | [address] [facility] | | | | | [facility] and | [place] [address] | | | | | [place] [address] | [phone] | | | | | [place], [place] | | | | | | [address] | | | | | | [phone] | | | +--------+ + + + [...] + | Diagnosis | + + | Other dysphagia - Primary | + + | H/O esophagectomy Personal history of surgery to other organs | + + documented in this encounter"
--- OUTSIDE RECORDS SUMMARY | ~2020-01-10 | XMS | Encounter Summary ---
Demographics + + + | Address | [address] | | | [place] [address] | + + + | Home Phone [...] Author | [facility] | + + + | Organization | [facility] | + + + | Address | Unknown | + + + | Phone | Unavailable | + + + Support + + + + + | Name | Relationship | Address | Phone | + + + + + | Selena Jimenez | ECON | [address] | | | | | [place] | | | | | [address] | | + + + + + | Ronny Rene | ECON | Unknown | | + + + + + | Char Woodard | ECON | Unknown | | + + + + + Care Team Providers + +------+ + | Care Forensic Science Technician Name | Role | Phone | + +------+ + | Deondre Landis MD | PCP | | + +------+ + Encounter Details +--------+ + + + + | Date | Type | Department | Care Team | Description | +--------+ + + + + | 01/08/ | Abstract | Digestive Health | Rubin Lorenzo | | | 2014 | | [place] [address] | MD Doris [address] [facility] | | | | | [facility] | [facility] | | | | | [facility] and | [place], [place] | | | | | [facility] [address] | [address] | | | | | [place], [place] | [phone] | | | | | [address] | | | | | | [phone] | | | +--------+ + + + [...]
--- OUTSIDE RECORDS SUMMARY | ~2020-01-10 | XMS | Encounter Summary ---
Demographics + + + | Address | [address] | | | [place] [address] | + + + | Home Phone [...] [place] | | | | | [address] | | + + + + + | Ronny Rene | ECON | Unknown | | + + + + + | Char Woodard | ECON | Unknown | | + + + + + Care Team Providers + +------+ + | Care Senior Storage Administrator Name | Role | Phone | + +------+ + | David Ferrera MD | PCP | | + +------+ + Encounter Details +--------+ + + + + | Date | Type | Department | Care Team | Description | +--------+ + + + + | 01/25/ | Hospital | Radiology/Imaging | Glenn Siegel MD | | | 2019 | Encounter | Lab at [facility] [address] | [address] [facility] | | | | | [facility] | [facility] | | | | | [facility] and | [place], [place] | | | | | [place] [address], | [address] | | | | | [address] [place] [address] | [phone] | | | | | [place], [place] | | | | | | [address] | | | | | | [phone] | | | +--------+ + + + [...] Note | + + | Service Account, [employer] - 01/25/2019 12:59 PM PDT [...]
--- OUTSIDE RECORDS SUMMARY | ~2020-01-10 | XMS | Encounter Summary ---
Demographics + + + | Address | [address] | | | [place] [address] | + + + | Home Phone | | + + + | Preferred Language | Unknown | + + + | Marital Status | | + + + | Latter-Day Affiliation | NON | + + + [...] [place] | | | | | [address] | | + + + + + | Ronny Rene | ECON | Unknown | | + + + + + | Chra Woodard | ECON | Unknown | | + + + + + Care Team Providers + +------+ + | Care Government Auditor Name | Role | Phone | + +------+ + | Deondre Landis MD | PCP | | + +------+ + Reason for Visit + + + | Reason | Comments | + + + | Pre-op evaluation | | + + + Encounter Details +--------+ + + + + | Date | Type | Department | Care Team | Description | +--------+ + + + + | 12/24/ | Telephone-S | Preoperative | | Pre-op evaluation | | 2014 | cheduled | Medicine Clinic at | | | | | | [facility] 4th | | | | | | Stay [address] | | | | [address] | | | | | | Mailcode: [id number] | | | | | | [facility] | | | | | | [address] [place], [place] | | | | | | [address] | | | | | | [phone] | | | +--------+ + + + + Anesthesia Record + + + + + | Procedure Name | Responsible | Anesthesia Start | Anesthesia Stop Time | | | Anesthesiologist | Time | | + + + + + | GIP GEREMIAS (Tayler) | Xochitl Menendez, | 12/30/14825 | 12/30/14915 | | | MD | | | + + + + + +----+---+ + + | Da | T | Event | Comment | | te | i | | | | | m | | | | | e | | | +----+---+ + + | 04 | 0 | Eq Check | Anesthesia machine checked Equipment verified | | /1 | 7 | | | | 3/ | 4 | | | | 20 | 8 | | | | 15 | | | | +----+---+ + + | | 0 | | | | | 8 | | | | | 0 | | | | | 8 | | | +----+---+ + + | | 0 | Pt. Check | Prior to anesthesia start, pt. Identified, examined, chart | | | 8 | | reviewed, PARQ held, anesthetic plan made or approved by | | | 0 | | attending anesthesiologist. NPO status confirmed as appropriate | | | 8 | | for procedure Preoperative evaluation: unchanged | +----+---+ + + | | 0 | An Start | | | | 8 | | | | | 2 | | | | | 6 | | | +----+---+ + + | | 0 | Vitals | Monitors applied Vital signs checked Patient ready for anesthesia | | | 8 | Checked | | | | 3 | | | | | 2 | | | +----+---+ + + | | 0 | Ready | | | | 8 | | | | | 3 | | | | | 2 | | | +----+---+ + + | | 0 | Abx held | | | | 8 | Not Ordered | | | | 3 | | | | | 2 | | | +----+---+ + + | | 0 | Incision | | | | 8 | | | | | 3 | | | | | 6 | | | +----+---+ + + | | 0 | Surgery end | | | | 9 | | | | | 0 | | | | | 6 | | | +----+---+ + + | | 0 | an stop | | | | 9 | data | | | | 0 | | | | | 9 | | | +----+---+ + + | | 0 | Anesthesia | | | | 9 | End | | | | 1 | | | | | 6 | | | +----+---+ + + +------+ | Meds | +------+ + + + No medications | on file. | + + + + + | No agents on file. | + + + + | No blood administrations on file. | + + +--------+ + + + | Type | Details | Placement | Removal | +--------+ + + + | RETIRE | 12/30/14; 0804; 12/30/14; 1034; | 12/30/14803 by | 12/30/14 1034 by | | D - | No; 20; Right; Forearm; | Radha Rangel RN | Tawanda Deleon RN | | Periph | Lidocaine; Positive; 1; Therapy | | | | eral | completed | | | | Line | | | | [...] + + documented as of this encounter Patient Instructions Patient Instructions Dang Pro RN - 12/24/2014 2:32 PM PDT PREOPERATIVE INSTRUCTIONS Do not eat or drink anything after midnight the night before surgery. TAKE the following medications with a sip of water on the morning of surgery: NONE--patient preference Do NOT take the following medications on the morning of surgery: AMLODIPINE 10 MG TABLET ASPIRIN 81 MG CHEWABLE TABLET ATORVASTATIN 80 MG TABLET LISINOPRIL 20 MG TABLET MELOXICAM 15 MG TABLET OMEPRAZOLE 20 MG CAPSULE,DELAYED RELEASE Unless otherwise directed by your surgeon, do not take any Aspirin, vitamin E or non-mainor roidal anti-inflammatory (NSAIDs i.e. Advil, Aleve, Ibuprofen) or herbal supplements seven d ays prior to your surgery. These drugs may interfere with normal blood clotting and may caus e excessive bleeding and bruising during or after the surgery. If you are taking Coumadin (warfarin), Plavix or any other blood thinners please let you r surgical team know as medication changes will be necessary. If you need a pain medication for general purposes, use Tylenol as directed. If you are in doubt about any medications that you are taking, please contact our office . Important Guidelines Do not shave the surgical area Do not smoke, drink alcohol or use recreational drugs for 24 hours before your surgery Do not eat any hard candy or chew gum after midnight the night before your surgery. Watch for any change in your health condition. Let your surgeon know right away if you do not feel well. Do not wear makeup, perfume, lotions or powder. Remove any nail azerbaijani from at least one fingernail. Do not wear any jewelry to the hospital. Wear loose, comfortable clothing. Bring the case and solution for your contact lenses or wear your glasses. Leave all your valuables at home. Allow enough travel time so you re not late for your check in for surgery. Take a bath or shower and remember to shampoo your hair using your usual hair product be fore your arrival at the hospital. Please remember to brush your teeth the night before and the morning of your procedure. Surgery Check in Locations Day Stay Unit [facility], fourth floor Room 5919 Surgery Check in Time: Someone from your surgeon's office or [facility] hospital will provide you with information regarding your check in time. If you have any questions about this, pl ease contact your surgeon's office. Going Home Your surgical team will decide when you are medically ready to go home. If you are released to go home on the same day as your procedure/surgery please note the following: You will not be able to drive. You will be required to have a competent adult drive you or accompany you by taxi or pub lic transportation on the day of discharge. It is also required that you have a competent adult assist you and look after you on the first night after you have undergone regional blocks (72 hours for patients going home with regional block pump), deep sedation, and/or general anesthesia. If you have questions or concerns after you go home, call your doctor s office. If it is after office hours, call the [facility] telegraphic typewriter operator at [phone] and ask them to page your doc tor. documented in this encounter Plan of Treatment Not on filedocumented as of this encounter Visit Diagnoses Not on filedocumented in this encounter"
--- OUTSIDE RECORDS SUMMARY | ~2020-01-10 | XMS | Encounter Summary ---
Demographics + + + | Address | [address] | | | [place] [address] | + + + | Home Phone [...] [place] | | | | | [address] | | + + + + + | Ronny Rene | ECON | Unknown | | + + + + + | Char Woodard | ECON | Unknown | | + + + + + Care Team Providers + +------+ + | Care Front Office Java Developer Name | Role | Phone | + +------+ + | Deondre Landis MD | PCP | | + +------+ + Reason for Visit + + + | Reason | Comments | + + + | Medical Records | [facility] - OUTSIDE IMAGING 07/03/15 Imaging Results ([facility] abd pelv CT | | Review | w/ contrast) | + + + Encounter Details +--------+ + + + + | Date | Type | Department | Care Team | Description | +--------+ + + + + | 07/04/ | Abstract | Digestive Health | Vijay Akbar MD | Medical Records | | 2015 | | Center at [facility] [address] | [address] | Review ([facility] - | | | | [facility] | [facility], | OUTSIDE IMAGING | | | | for Health and | [place] [address] | 07/03/15 Imaging | | | | Healing, Building [address] | [phone] | Results ([facility] | | | | [place], [place] | | pelv CT w/ | | | | [address] | | contrast)) | | | | [phone] | | | +--------+ + + + [...]
--- OUTSIDE RECORDS SUMMARY | ~2020-01-10 | XMS | Encounter Summary ---
Demographics + + + | Address | [address] | | | [place] [address] | + + + | Home Phone | | + + + | Preferred Language | Unknown | + + + | Marital Status | | + + + | Evangelical Affiliation | NON | + + + [...] [place] | | | | | [address] | | + + + + + | Ronny Rene | ECON | Unknown | | + + + + + | Char Woodard | ECON | Unknown | | + + + + + Care Team Providers + +------+ + | Care Research Asst Name | Role | Phone | + [...] Description | +--------+--------+ + + + | 07/24/ | Refill | Digestive Health | Vijay Akbar MD | Refill Request | | 2018 | | Center at [facility] [address] | [address] | | | | | [facility] | [facility] | | | | | [facility] and | [place] [address] | | | | | [place] [address] | [phone] | | | | | [place], [place] | | | | | | [address] | | | | | | [phone] | | | +--------+--------+ + + + [...]
--- OUTSIDE RECORDS SUMMARY | ~2020-01-10 | XMS | Encounter Summary ---
Demographics + + + | Address | [address] | | | [place] [address] | + + + | Home Phone | | + + + | Preferred Language | Unknown | + + + | Marital Status | | + + + | Cheondoism Affiliation | NON | + + + | Race | White | + + + | Ethnic Group | Not or | + + + Author + + + | Author | [facility] | + + + | Organization | [facility] | + + + | Address | Unknown | + + + | Phone | Unavailable | + + + Support + + + + + | Name | Relationship | Address | Phone | + + + + + | Selena Jimenez | ECON | [address] | | | | | [place] | | | | | [address] | | + + + + + | Ronny Rene | ECON | Unknown | | + + + + + | Char Woodard | ECON | Unknown | | + + + + + Care Team Providers + +------+ + | Care Physical Therapy Director Name | Role | Phone | + [...] | | 2014 | | Center at [facility] [address] | [address] | Clarification | | | | [facility] | [facility] | | | | | [facility] and | [place] [address] | | | | | [place] [address] | [phone] | | | | | [place], [place] | | | | | | [address] | | | | | | [phone] | | | +--------+ + + + [...]
--- OUTSIDE RECORDS SUMMARY | ~2020-01-10 | XMS | Encounter Summary ---
Demographics + + + | Address | [address] | | | [place] [address] | + + + | Home Phone [...] + + + | Author | [facility] | + + + | Organization | [facility] | + + + | Address | Unknown | + + + | Phone | Unavailable | + + + Support + + + + + | Name | Relationship | Address | Phone | + + + + + | Selena Jimenez | ECON | [address] | | | | | [place] | | | | | [address] | | + + + + + | Ronny Rene | ECON | Unknown | | + + + + + | Char Woodard | ECON | Unknown | | + + + + + Care Team Providers + +------+ + | Care Knot Cutter Name | Role | Phone | + +------+ + | Deondre Landis MD | PCP | | + +------+ + Reason for Visit + + + | Reason | Comments | + + + | Outside Records | CT chest, abdomen and pelvis | | Received | | + + + Encounter Details +--------+ + + + + | Date | Type | Department | Care Team | Description | +--------+ + + + + | 03/24/ | Abstract | Digestive Health | Vijay Akbar MD | Outside Records | | 2015 | | Center at [facility] [address] | [address] | Received (CT chest, | | | | [facility] | [facility], | abdomen and pelvis) | | | | for Health and | [place] [address] | | | | | Healing, [facility] [address] | [phone] | | | | | [place], [place] | | | | | | [address] | | | | | | [phone] | | | +--------+ + + + [...]
--- OUTSIDE RECORDS SUMMARY | ~2020-01-10 | XMS | Encounter Summary ---
Demographics + + + | Address | [address] | | | [place] [address] | + + + | Home Phone | | + + + | Preferred Language | Unknown | + + + | Marital Status | | + + + | Jehovah'S Witness Affiliation | Unknown | + + + | Race | Unknown | + + + | Ethnic Group | Unknown | + + + Author + + + | Author | [facility] | | | and [place] | + + + | Organization | [facility] | | | and [place] | + + + | Address | Unknown | + + + | Phone | Unavailable | + + + Support + + + + + | Name | Relationship | Address | Phone | + + + + + | Selena Jimenez | ECON | [id number] | | | | | [place] [address] | | + + + + + Care Team Providers + +------+ + | Care Freezing Room Worker Name | Role | Phone | [...] Description | +--------+--------+ + + + | 09/16/ | Refill | [facility] | Bernice Antonio, | Medication Refill | | 2012 | | CARDIOLOGY [address] | MD [address] [place] | | | | | [place], | [place], | | | | | [place] [address] | [place] [address] | | | | | [phone] | [phone] | | | | | | | [...] [place], | | | | | | [place] [address] | | | | | | [phone] | | | | | | | | +--------+---------+ + + + documented as of this encounter Visit Diagnoses Not on filedocumented in this encounter"
--- OUTSIDE RECORDS SUMMARY | ~2020-01-10 | XMS | Encounter Summary ---
Demographics + + + | Address | [address] | | | [place] [address] | + + + | Home Phone [...] [place] | | | | | [address] | | + + + + + | Ronny Rene | ECON | Unknown | | + + + + + | Char Woodard | ECON | Unknown | | + + + + + Care Team Providers + +------+ + | Care Faculty Criminal Justice Name | Role | Phone | + +------+ + | Deondre Landis MD | PCP | | + +------+ + Reason for Visit + + + | Reason | Comments | + + + | Discussion | | + + + Encounter Details +--------+ + + + + | Date | Type | Department | Care Team | Description | +--------+ + + + + | 04/18/ | Telephone | Digestive Health | Vijay Akbar MD | Discussion | | 2014 | | Center at [facility] [address] | [address] | | | | | [facility] | [facility] | | | | | [facility] and | [place] [address] | | | | | [place] [address] | [phone] | | | | | [place], [place] | | | | | | [address] | | | | | | [phone] | | | +--------+ + + + [...]
--- OUTSIDE RECORDS SUMMARY | ~2020-01-10 | XMS | Encounter Summary ---
Demographics + + + | Address | [address] | | | [place] [address] | + + + | Home Phone | | + + + | Preferred Language | Unknown | + + + | Marital Status | | + + + | Congregational Affiliation | Unknown | + + + | Race | Unknown | + + + | Ethnic Group | Unknown | + + + Author + + + | Author | [facility] | | | and [place] | + + + | Organization | [facility] | | | and [place] | + + + | Address | Unknown | + + + | Phone | Unavailable | + + + Support + + + + + | Name | Relationship | Address | Phone | + + + + + | Selena Jimenez | ECON | [address] | | | | | [place] [address] | | + + + + + Care Team Providers + +------+ + | Care Medical Receptionist Name | Role | Phone | + +------+ + | Mingo Burgos DO | PCP | | + +------+ + Reason for Visit + + + | Reason | Comments | + + + | Blood Pressure | Log from 12/01/16 till 12/14/16 | + + + Encounter Details +--------+ + + + + | Date | Type | Department | Care Team | Description | +--------+ + + + + | 12/29/ | Telephone | [facility] [place] | Bernice Antonio, | Blood Pressure (Log | | 2017 | | CARDIOLOGY [address] | [address] [place] | from 12/01/16 till | | | | [place], | [place], | 12/14/16) | | | | [place] [address] | [place] [address] | | | | | [phone] | [phone] | | | | | | | [...] | | | | | | [place] [address] | | | | | | [phone] | | | | | | | | +--------+---------+ + + + documented as of this encounter Visit Diagnoses Not on filedocumented in this encounter"
--- OUTSIDE RECORDS SUMMARY | ~2020-01-10 | XMS | Encounter Summary ---
Demographics + + + | Address | [address] | | | [place] [address] | + + + | Home Phone [...] [place] | | | | | [address] | | + + + + + | Ronny Rene | ECON | Unknown | | + + + + + | Char Woodard | ECON | Unknown | | + + + + + Care Team Providers + +------+ + | Care Steel Pickler Name | Role | Phone | + +------+ + | David Ferrera MD | PCP | | + +------+ + Reason for Visit + + + | Reason | Comments | + + + | Referral | Right shoulder | + + + Encounter Details +--------+ + + + + | Date | Type | Department | Care Team | Description | +--------+ + + + + | 01/23/ | Abstract | Orthopaedics | Note, Orthopedics | Referral (Right | | 2019 | | [facility] at [place] | Clinic | shoulder) | | | | for Health and | | | | | | Healing [address] | | | | | | [facility] for | | | | | | Health and Healing, | | | | | | [facility] | | | | | | floor [place], [place] | | | | | | [address] | | | | | | [phone] | | | +--------+ + + + [...] documented as of this encounter Progress Notes Angelika Nielsen - 01/23/2019 9:04 AM PDTFormatting of this note might be different fro m the original. Orthopaedics New Patient Record Check List Please ask the following questions: Comments Date requested Records/Imaging received? If so, what format? Where? What would you like to be seen for (body part and laterality)? Right shoulder fracture DOI, if applicable? 01/16/19 Prior Surgery (for this body part)? No Have you seen anyone for this yet? Yes, when: 01/16/19; where: [facility] attached Do you have a referring provider? yes who: Dr. Rapp attached X-Ray Yes, when: 01/16/19; where: [facility] req via fax to be pushed [phone] req via fax [phone] Patient also able to carry discs to appointment MRI No Other Imaging (CT, Ultrasound, etc.) No Is this a W/C injury? no If YES, create referral and complete: .[email or web address] inside referral Note: We do not accept WC under [place] [employer] as they do not pay at [employer] rates. Other out of state claims will only be accepted if they agree to pay at [employer] rates docume nted in writing from adjustor. Can you confirm the insurance we will be billing for this visit? Medicare Note: If OHP, please note which type. E.g. [employer], [employer], [employer], etc. ) Reminder: Please create referrals for pts with: HMO, OHP, [place], Self-Pay, W/C, TPL an d ED Post- Ops Can you verify your Primary Care Provider? no Note: Please update Primary Care Provider in Epic. Are you a current smoker or tobacco user? no If YES, please let patient know that they must be 4 weeks smoke/tobacco-free, tested and do cumented by PCP before having a surgical consult. Height & Weight, if unable to locate in notes or chart. Last recorded patient height: 05/05/18 1.753 m (5' 9") Wt on (05/05/2018) 72.4 kg (159 lb 9.6 oz) Last 1 Encounter BMI Readings: Date BMI 05/05/2018 23.57 kg/m2 Patient reported height: n/a Patient reported weight: n/a Note: If over provider BMI preference, for REVIEW. Are you diabetic? no Lab Results Component Value Date A1C 6.0 (H) 03/26/2015 Patient reported A1C: n/a Note: If over provider A1C preference, for REVIEW. Medical Review needed? No If yes, create referral Reminders: ? Ask patient if they d like to sign up for MyChart ? Don t forget to pull in CareEveryWhere Additional Comments: documented in this en counter Plan of Treatment Not on filedocumented as of this encounter Visit Diagnoses Not on filedocumented in this encounter
--- OUTSIDE RECORDS SUMMARY | ~2020-01-10 | XMS | Encounter Summary ---
Demographics + + + | Address | [address] | | | [place] [address] | + + + | Home Phone | | + + + | Preferred Language | Unknown | + + + | Marital Status | | + + + | Oriental Orthodox Affiliation | NON | + + + [...] [place] | | | | | [address] | | + + + + + | Ronny Rene | ECON | Unknown | | + + + + + | Char Woodard | ECON | Unknown | | + + + + + Care Team Providers + +------+ + | Care Iron Erector Name | Role | Phone | + +------+ + | David Ferrera MD | PCP | | + +------+ + Encounter Details +--------+ + + + + | Date | Type | Department | Care Team | Description | +--------+ + + + + | 03/31/ | Document-Sc | Health Information | Other, Faculty | | | 2014 | anned | Services [address] | [phone] | | | | | [facility] | | | | | | Mailcode: [id number] | | | | | | [facility] | | | | | | [place], [place] | | | | | | [address] | | | | | | [phone] | | | +--------+ + + + [...]
--- OUTSIDE RECORDS SUMMARY | ~2020-01-10 | XMS | Encounter Summary ---
Demographics + + + | Address | [address] | | | [place] [address] | + + + | Home Phone [...] [place] | | | | | [address] | | + + + + + | Ronny Rene | ECON | Unknown | | + + + + + | Char Woodard | ECON | Unknown | | + + + + + Care Team Providers + +------+ + | Care Battery Test Engineer Name | Role | Phone | + +------+ + | Deondre Landis MD | PCP | | + +------+ + Encounter Details +--------+ + + + + | Date | Type | Department | Care Team | Description | +--------+ + + + + | 01/24/ | Hospital | Registration HOV | | | | 2017 | Encounter | [address] | | | | | | [place], | | | | | | [place] [address] | | | +--------+ + + + [...]
--- OUTSIDE RECORDS SUMMARY | ~2020-01-10 | XMS | Encounter Summary ---
Demographics + + + | Address | [address] | | | [place] [address] | + + + | Home Phone | | + + + | Preferred Language | Unknown | + + + | Marital Status | | + + + | Cheondoism Affiliation | NON | + + + | Race | White | + + + | Ethnic Group | Not or | + + + Author + + + | Author | [facility] | + + + | Organization | [facility] | + + + | Address | Unknown | + + + | Phone | Unavailable | + + + Support + + + + + | Name | Relationship | Address | Phone | + + + + + | Selena Jimenez | ECON | [address] | | | | | [place] | | | | | [address] | | + + + + + | Ronny Rene | ECON | Unknown | | + + + + + | Char Woodard | ECON | Unknown | | + + + + + Care Team Providers + +------+ + | Care Developer Prover Upholstering Name | Role | Phone | + [...] | +--------+ + + + + | 12/30/ | Hospital | [place] [address] | Rubin Lorenzo | | | 2014 | Encounter | [address] | MD [place] [address] [facility] | | | | | [place] [facility] | [facility] | | | | | [address] | [place], [place] | | | | | (MNP/[facility]) | [address] | | | | | [place], [place] | [phone] | | | | | [address] | | | | | | [phone] | | | +--------+ + + + [...] + + + | Blood Pressure | 131/67 | 12/30/2014 9:48 AM | | | | | PDT | | + + + + + | Pulse | 65 | 12/30/2014 9:48 AM | | | | | PDT | | + + + + + | Temperature | 36.6 C (97.9 F) | 12/30/2014 8:20 AM | | | | | PDT | | + + + + + | Respiratory Rate | 16 | 12/30/2014 8:20 AM | Simultaneous filing. | | | | PDT | User may be unaware | | | | | of other data. | + + + + + | Oxygen Saturation | 94% | 12/30/2014 9:48 AM | | | | | PDT | | + + + + + | Inhaled Oxygen | - | - | | | Concentration | | | | + + + + + | Weight | 80.3 kg (177 lb) | 12/30/2014 8:21 AM | | | | | PDT | | + + + + + | Height | - | - | | + + + + + | Body Mass Index | - | - | | + + + + + documented in this encounter Discharge Instructions Letty Bennett RN - 12/30/2014 Home Care Instructions after EGD (Upper Endoscopy) You may resume your normal medications unless told otherwise. Full liquid diet today! Medications The medications you received for your procedure can cause you to be forgetful and drowsy an d will take the remainder of the day to wear off. DO NOT drink alcohol, drive, operate heavy machinery, sign legal documents, or make major d ecisions until tomorrow. Common After Effects Mild abdominal pain, bloating, and gas. Sore throat. You may treat it with throat lozenges and/or gargle with warm salt water. You may bruise at your IV site. If you have pain, redness, or swelling at your IV site, apply a warm compress. Complications Call your GI doctor if you have: Abnormal pain or any new unexplained symptoms. Shortness of breath, chest or neck pain. Vomiting blood or rectal bleeding. Fever above 101.5 Redness, pain, or swelling at your IV site that is not relieved with warm compress. For any questions related to your procedure, call Tuesday- Tuesday 8:00- 4:30 Endoscopy Toll Free ext [phone] or After business hours, or on weekends and holiday Hospital OperatorToll Free [phone] ext. [phone] and have the GI doctor financial operations consultant paged. The provider who performed your procedure is: Dr. Rubin Lorenzo Results of your exam: Your esophagus was dilated and multiple biopsies were taken. Likely r epeat endoscopy in 2-3 months. We will contact you with biopsy results. Biopsies were taken, they will be sent to the laboratory. You and your referring doctor will get a letter with biopsy results in approximately 2 week s. Follow up Appointments with: Your referring provider as needed. Your primary care provider or Referring provider will receive copies of the procedure repo rt and all the pathology reports with recommendations for treatment if needed. documented in this encounter Progress Notes Rubin Lorenzo MD - 12/30/2014 8:16 AM PDTFormatting of this note might be differen t from the original. Pre Sedation Note Subjective: Junaid Jimenez is a 74 y.o. male presents today for EGD No significant change to health since initial assessment as outlined in EPIC and referral n otes unless noted here. PARQ held and patient agreeable to proceeding with above procedure. Consent obtained and is in chart. Objective: Vital Signs: There were no vitals taken for this visit. Neuro: patient is oriented X3. Mental status clear and intact Neck Neck supple. No adenopathy Respiratory Lungs clear to auscultation bilaterally with good air exchange Cardiac Regular Rate and Rhythm. Abdomen: soft, normal active bowel sounds, nontender, no masses, no organomegaly Medications: Meds reviewed Allergies: Allergies as of 11/22/2014 (Not on File) See procedure note 12/30/2014 documented in th is encounter Plan of Treatment Not on filedocumented as of this encounter Procedures + +--------+ + + + | Procedure Name | Priori | Date/Time | Associated Diagnosis | Comments | | | ty | | | | + +--------+ + + + | 12 LEAD ECG | Routin | 12/30/2014 | | Results for this | | | e | 8:15 AM | | procedure are in the | | | | PDT | | results section. | + +--------+ + + + | BASIC METABOLIC SET | Routin | 12/30/2014 | | Results for this | | (NA, K, CL, TCO2, | e | 7:49 AM | | procedure are in the | | BUN, CR, GLU, CA) | | PDT | | results section. | + +--------+ + + + | EGD | | 12/30/2014 | | Results for this | | | | 12:00 AM | | procedure are in the | | | | PDT | | results section. | + +--------+ + + + | SURGICAL PATHOLOGY | Routin | 12/30/2014 | | Results for this | | | e | | | procedure are in the | | | | | | results section. | + +--------+ + + + documented in this encounter Results 12 LEAD ECG (12/30/2014 8:15 AM PDT) + + + + + + | Component | Value | Ref Range | Performed | Pathologist | | | | | At | Signature | + + + + + + | VENTRICULAR | 64 | bpm | [facility] | | | RATE | | | OF | | | | | | CARDIOLOGY | | + + + + + + | ATRIAL RATE | 64 | bpm | [facility] | | | | | | OF | | | | | | CARDIOLOGY | | + + + + + + | P-R | 152 | ms | [facility] | | | INTERVAL | | | OF | | | | | | CARDIOLOGY | | + + + + + + | P AXIS | 56 | deg | [facility] | | | | | | OF | | | | | | CARDIOLOGY | | + + + + + + | QRS | 92 | ms | [facility] | | | DURATION | | | OF | | | | | | CARDIOLOGY | | + + + + + + | QT | 380 | ms | [facility] | | | | | | OF | | | | | | CARDIOLOGY | | + + + + + + | LOTTIE-KATERINE | 392 | ms | [facility] | | | | | | OF | | | | | | CARDIOLOGY | | + + + + + + | R AXIS | -38 | deg | [facility] | | | | | | OF | | | | | | CARDIOLOGY | | + + + + + + | T AXIS | 30 | deg | [facility] | | | | | | OF | | | | | | CARDIOLOGY | | + + + + + + | ECG | SINUS RHYTHM- NORMAL ECG | | [facility] | | | IMPRESSION | -Electronically signed | | OF | | | | by: ADELAIDA STEPHEN 12-30-2014 | | CARDIOLOGY | | | | 08:47:45 | | | | + + + + + + + + | Specimen | + + | | + + + + + | Narrative | Performed At | + + + | | [facility] OF | | | CARDIOLOGY | + + + + + | Procedure Note | + + | Aris Cortez - 12/30/2014 9:10 AM PDT | + + + + + + + | Performing | Address | City/State/Zipcode | Phone Number | | Organization | | | | + + + + + | [facility] | [address] | [place], [place] | | | CARDIOLOGY | [address] | [address] | | + + + + + BASIC METABOLIC SET (NA, K, CL, TCO2, BUN, CR, GLU, CA) (12/30/2014 7:49 AM PDT) + + + + + + | Component | Value | Ref Range | Performed | Pathologist | | | | | At | Signature | + + + + + + | GLUCOSE, | 91 | 60 - 99 mg/dL | [facility] | | | PLASMA | | | LABORATORY | | | (LAB) | | | SERVICES, | | | | | | CORE | | + + + + + + | BUN, PLASMA | 12 | 6 - 20 mg/dL | [facility] | | | (LAB) | | | LABORATORY | | | | | | SERVICES, | | | | | | CORE | | + + + + + + | CREATININE | 1.11 [...] | | | LABORATORY | | | BELARUSIAN | | | SERVICES, | | | | | | CORE | | + + + + + + | EGFR NON | >60 | >60 mL/min | [facility] | | | -MILAGRO | | | LABORATORY | | | RICAN | | | SERVICES, | | | | | | CORE | | + + + + + + | SODIUM, | 139 | 136 - 145 | [facility] | | | PLASMA | | mmol/L | LABORATORY | | | (LAB) | | | SERVICES, | | | | | | CORE | | + + + + + + | POTASSIUM, | 4.1 [...] + + + + | CALCIUM, | 10.7 (H) | 8.6 - 10.2 | [facility] | | | PLASMA | | mg/dL | LABORATORY | | | (LAB) | | | SERVICES, | | | | | | CORE | | + + + + + + | ANION GAP | 9 | mmol/L | [facility] | | | [...] + + + + + | [facility] | [address] | [place] [address] | | | SERVICES, CORE | [address] | | | + + + + + EGAdelita (12/30/2014 12:00 AM PDT) + + | Specimen | + + | | + + + + + | Narrative | Performed At | + + + | | | | | | + + + + + | Procedure Note | + + | Aris Cortez - 12/30/2014 9:47 AM PDT | + + SURGICAL PATHOLOGY (12/30/2014) + + + + + + | Component | Value | Ref Range | Performed | Pathologist | | | | | At | Signature | + + + + + + | SURGICAL | SOURCE OF SPECIMEN:A | | [facility] | | | PATHOLOGY | Stricture at 34cmSOURCE | | DEPARTMENT | | | | OF SPECIMEN:B 35cmSOURCE | | OF | | | | OF SPECIMEN:C | | PATHOLOGY | | | | 32-33cmSOURCE OF | | | | | | SPECIMEN:D 30-31cmSOURCE | | | | | | OF SPECIMEN:E | | | | | | 28-29cmSOURCE OF | | | | | | SPECIMEN:F 26-27cmSOURCE | | | | | | OF SPECIMEN:G Cervical | | | | | | pouch at 23-25cm | | | | | | Final Pathologic | | | | | | Diagnosis:A: Esophagus | | | | | | stricture, 34 cm, | | | | | | biopsy: - 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 | | | | | | arising in columnar | | | | | | epithelium | | | | | | withintestinal | | | | | | metaplasia B: | | | | | | Esophagus, 35 cm, | | | | | | biopsy: - 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 | | | | | | columnar epithelium | | | | | | withintestinal | | | | | | metaplasia [see | | | | | | comment] C: | | | | | | Esophagus, 32-33 cm, | | | | | | biopsy: - Focal | | | | | | intestinal metaplasia | | | | | | arising in columnar | | | | | | mucosa, negative | | | | | | fordysplasia or | | | | | | malignancy D: | | | | | | Esophagus, 30-31 cm, | | | | | | biopsy: - | | | | | | High-grade dysplasia | | | | | | arising in columnar | | | | | | epithelium with | | | | | | intestinalmetaplasia | | | | | | E: Esophagus, 28-29 | | | | | | cm, biopsy: - | | | | | | Invasive adenocarcinoma, | | | | | | 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, arising | | | | | | in abackground of | | | | | | high-grade dysplasia | | | | | | in columnar mucosa [see | | | | | | comment] F: | | | | | | Esophagus, 26-27 cm, | | | | | | biopsy: - | | | | | | Intramucosal | | | | | | adenocarcinoma, | | | | | | 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, arising | | | | | | in abackground | | | | | | of high-grade | | | | | | dysplasia in columnar | | | | | | mucosa G: | | | | | | Cervical pouch, 23-25 | | | | | | cm, biopsy: - | | | | | | Focal low-grade | | | | | | dysplasia arising in | | | | | | columnar epithelium | | | | | | Comment: In part B | | | | | | there are deeper glands | | | | | | with dysplastic | | | | | | changes;however, a | | | | | | definite connection to | | | | | | the surface is not seen. | | | | | | The | | | | | | clinicalsignificance of | | | | | | isolated crypt dysplasia | | | | | | is uncertain. In part | | | | | | E there isone fragment | | | | | | with at least | | | | | | intramucosal | | | | | | adenocarcinoma; however, | | | | | | given thefragmented | | | | | | specimen, deeper | | | | | | invasion cannot be | | | | | | excluded. 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 | | | | | | Assessfor dysplasia. | | | | | | Gross | | | | | | Description:Received are | | | | | | 7 specimens in formalin | | | | | | in containers labeled | | | | | | with the patientname | | | | | | (initials JZ) and: | | | | | | A: Stricture at 34 | | | | | | cm: Received are 5 | | | | | | fragments of taylor, soft | | | | | | tissue thatmeasure 0.3 x | | | | | | 0.2 x 0.1 cm in | | | | | | aggregate. The entire | | | | | | specimen is submitted. | | | | | | B: 35 cm: | | | | | | Received are 3 | | | | | | fragments of taylor, soft | | | | | | tissue that measure 0.5 | | | | | | x0.3 x 0.2 cm in | | | | | | aggregate. The entire | | | | | | specimen is submitted. | | | | | | C: 32-33 cm: | | | | | | Received are 4 | | | | | | fragments of taylor, soft | | | | | | tissue that measure0.2 x | | | | | | 0.2 x 0.1 cm in | | | | | | aggregate. The entire | | | | | | specimen is submitted. | | | | | | D: 30-31 cm: | | | | | | Received are 5 | | | | | | fragments of taylor, soft | | | | | | tissue that measure0.5 x | | | | | | 0.3 x 0.1 cm in | | | | | | aggregate. The entire | | | | | | specimen is submitted. | | | | | | E: 28-29 cm: | | | | | | Received are 4 | | | | | | fragments of taylor, soft | | | | | | tissue that measure0.5 x | | | | | | 0.2 x 0.1 cm in | | | | | | aggregate. The entire | | | | | | specimen is submitted. | | | | | | F: 26-27 cm: | | | | | | Received are 2 | | | | | | fragments of taylor, soft | | | | | | tissue that measure0.2 x | | | | | | 0.2 x 0.2 cm in | | | | | | aggregate. The entire | | | | | | specimen is submitted. | | | | | | G: Cervical | | | | | | patch 23-25 cm: | | | | | | Received are 3 | | | | | | fragments of taylor, soft | | | | | | tissuethat measure 0.2 x | | | | | | 0.1 x 0.1 cm in | | | | | | aggregate. The entire | | | | | | specimen issubmitted. | | | | | | Cassette Index:A: | | | | | | Stricture at 34 | | | | | | cm:A1B: 35 cm:B1C: | | | | | | 32-33 cm:C1D: 30-31 | | | | | | cm:D1E: 28-29 cm:E1F: | | | | | | 26-27 cm:F1G: | | | | | | Cervical patch 23-25 | | | | | | cm:G1KRK:tp My | | | | | | [...] Diagnostician: | | | | | | Ramu Morrell | | | | | | M.D. | | | | | | Ph.D.PathologistElectron | | | | | | nataliia Signed 01/01/2015 | | | | | | 9:23AM | | | | + + + + + + + + | Specimen | + + | Tissue - Biopsy | + + + + + + + | Performing | Address | City/State/Zipcode | Phone Number | | Organization | | | | + + + + + | [facility] | [address] | [place] [address] | | | PATHOLOGY | [address] | | | + + + + + documented in this encounter Visit Diagnoses Not on filedocumented in this encounter"
--- OUTSIDE RECORDS SUMMARY | ~2020-01-10 | XMS | Encounter Summary ---
Demographics + + + | Address | [address] | | | [place] [address] | + + + | Home Phone [...] Author + + + | Author | [facility] | + + + | Organization | [facility] | + + + | Address | Unknown | + + + | Phone | Unavailable | + + + Support + + + + + | Name | Relationship | Address | Phone | + + + + + | Selena Jimenez | ECON | [address] | | | | | [place] | | | | | [address] | | + + + + + | Ronny Rene | ECON | Unknown | | + + + + + | Char Woodard | ECON | Unknown | | + + + + + Care Team Providers + +------+ + | Care Plant Mechanic Name | Role | Phone | + +------+ + | Deondre Landis MD | PCP | | + +------+ + Encounter Details +--------+ + + + + | Date | Type | Department | Care Team | Description | +--------+ + + + + | 10/12/ | Abstract | Digestive Health | Char Castillo, | | | 2017 | | Center at [facility] [address] | MD [address] | | | | | [address] [facility] | Ave [place], [place] | | | | | for Health and | [address] | | | | | [facility] [address] | [phone] | | | | | [place], [place] | | | | | | [address] | | | | | | [phone] | | | +--------+ + + + [...]
--- OUTSIDE RECORDS SUMMARY | ~2020-01-10 | XMS | Encounter Summary ---
Demographics + + + | Address | [address] | | | [place] [address] | + + + | Home Phone | | + + + | Preferred Language | Unknown | + + + | Marital Status | | + + + | Confucianism Affiliation | Unknown | + + + | Race | Unknown | + + + | Ethnic Group | Unknown | + + + Author + + + | Author | [facility] | | | and [place] | + + + | Organization | [facility] | | | and [place] | + + + | Address | Unknown | + + + | Phone | Unavailable | + + + Support + + + + + | Name | Relationship | Address | Phone | + + + + + | Selena Jimenez | ECON | [id number] | | | | | [place] [address] | | + + + + + Care Team Providers + +------+ + | Care Drafting Technician Name | Role | Phone | + +------+ + | Mingo Burgos DO | PCP | | + +------+ + Reason for Visit +--------+ + | Reason | Comments | +--------+ + | Other | increased heart rate with exertion | +--------+ + Encounter Details +--------+ + + + + | Date | Type | Department | Care Team | Description | +--------+ + + + + | 03/11/ | Telephone | [facility] | Bernice Antonio, | Other (increased | | 2013 | | CARDIOLOGY [address] | heart rate with | | | | [place], | [place], | exertion) | | | | [place] [address] | [place] [address] | | | | | [phone] | [phone] | | | | | | | [...] [place], | | | | | | [place] [address] | | | | | | [phone] | | | | | | | | +--------+---------+ + + + documented as of this encounter Visit Diagnoses Not on filedocumented in this encounter"
--- OUTSIDE RECORDS SUMMARY | ~2020-01-10 | XMS | Encounter Summary ---
Demographics + + + | Address | [address] | | | [place] [address] | + + + | Home Phone | | + + + | Preferred Language | Unknown | + + + | Marital Status | | + + + | Catholic Affiliation | NON | + + + [...] [place] | | | | | [address] | | + + + + + | Ronny Rene | ECON | Unknown | | + + + + + | Char Woodard | ECON | Unknown | | + + + + + Care Team Providers + +------+ + | Care Rock Cutter Name | Role | Phone | [...] | +--------+ + + + + | 05/05/ | Telephone | Digestive Health | Vijay Akbar MD | Discussion | | 2014 | | Center at [facility] [address] | [address] | | | | | [facility] | [facility] | | | | | [facility] and | [place] [address] | | | | | [place] [address] | [phone] | | | | | [place], [place] | | | | | | [address] | | | | | | [phone] | | | +--------+ + + + [...]
--- OUTSIDE RECORDS SUMMARY | ~2020-01-10 | XMS | Encounter Summary ---
Demographics + + + | Address | [address] | | | [place] [address] | + + + | Home Phone [...] [place] | | | | | [address] | | + + + + + | Ronny Rene | ECON | Unknown | | + + + + + | Char Woodard | ECON | Unknown | | + + + + + Care Team Providers + +------+ + | Care Equipment Associate Name | Role | Phone | + [...] 2014 | anned | [address] | [phone] | | | | | [facility] | | | | | | Mailcode: [id number] | | | | | | [facility] | | | | | | [place], [place] | | | | | | [address] | | | | | | [phone] | | | +--------+ + + + [...]
--- OUTSIDE RECORDS SUMMARY | ~2020-01-10 | XMS | Encounter Summary ---
Demographics + + + | Address | [address] | | | [place] [address] | + + + | Home Phone | | + + + | Preferred Language | Unknown | + + + | Marital Status | | + + + | Nondenominational Affiliation | NON | + + + | Race | White | + + + | Ethnic Group | Not or | + + + Author + + + | Author | [facility] | + + + | Organization | [facility] | + + + | Address | Unknown | + + + | Phone | Unavailable | + + + Support + + + + + | Name | Relationship | Address | Phone | + + + + + | Selena Jimenez | ECON | [address] | | | | | [place] | | | | | [address] | | + + + + + | Ronny Rene | ECON | Unknown | | + + + + + | Char Woodard | ECON | Unknown | | + + + + + Care Team Providers + +------+ + | Care Needle Control Cheniller Name | Role | Phone | + [...] + + + + | 12/30/ | Anesthesia | Endoscopic | Xochitl Menendez | | | 2015 | Event | Procedural Unit at | MD [place] [address] | | | | | [address] | | | | | [address] | [place], [place] | | | | | [place], | [address] | | | | | 4th floor [place], | [phone] | | | | | [place] [address] | | | | | | [phone] | [place] Gamez CRNA | | +--------+ + + + + Anesthesia Record + + + + + | Procedure Name | Responsible | Anesthesia Start | Anesthesia Stop Time | | | Anesthesiologist | Time | | + + + + + | JOO Leonard) | Xochitl Menendez, | 12/30/14825 | 12/30/14915 [...] | Total | + + + | propofol INF | 260,975 mcg | + + + | propofol | 130 mg | + + + | lidocaine 4% LTA | 4 mL | + + + | NaCl 0.9 % IV | 400 mL | + + + + + | Name | + + | O2 Flow Rate (Total Liters) | + + + + | No blood administrations on file. | + + +--------+ + + + | Type | Details | Placement | Removal | +--------+ + + + | RETIRE | 12/30/14; 0804; 12/30/14; 1034; | 12/30/14 0804 by | 12/30/14 1034 by | | [...] | | | + +--------+ +------+------+------+ | lidocaine (LTA) 4 % topical | Given | 12/31/19 | 4 mL | | | | solution INTRAPROCEDURE PRN, | | 15 8:27 | | | | | Starting 12/30/14 at 0827, | | AM PDT | | | | | Until 12/30/14 at 0909 | | | | | | + +--------+ +------+------+------+ +---+---+ | | | +---+---+ + + + +---+---+---+ | NaCl 0.9 % IV 50 mL/hr, | given by | 12/31/19 | | | | | intravenous, CONTINUOUS, Starting | | 15 8:50 | | | | | 12/30/14 at 0800, Until Mon | anesthes | AM PDT | | | | | 12/30/14 at 1637 | iology | | | | | + + + +---+---+---+ +---------+ +---+---+---+ | New Bag | 12/31/19 | | | | | | 15 8:17 | | | | | | AM PDT | | | | +---------+ +---+---+---+ +---+---+ | | | +---+---+ + + + + +--------+---+ | propofol (DIPRIVAN) injection | Rate/Dos | 12/31/19 | 100 | 48.18 | | | INTRAPROCEDURE CONTINUOUS PRN, | e Change | 15 8:38 | mcg/kg/m | mL/hr | | | Starting Tue12/30/14 at 0832, | | AM PDT | in | | | | Until Tue12/30/14 at 0909 | | | | | | + + + + +--------+---+ +---------+ + +--------+---+ | New Bag | 12/31/19 | 75 | 36.14 | | | | 15 8:32 | mcg/kg/m | mL/hr | | | | AM PDT | in | | | +---------+ + +--------+---+ +---+---+ | | | +---+---+ + +-------+ +-------+---+---+ | propofol INTRAPROCEDURE PRN, | Given | 12/31/19 | 10 mg | | | | Starting Tue12/30/14 at 0832, | | 15 9:00 | | | | | Until Tue12/30/14 at 0909 | | AM PDT | | | | + +-------+ +-------+---+---+ +-------+ +-------+---+---+ | Given | 12/31/19 | 10 mg | | | | | 15 8:56 | | | | | | AM PDT | | | | +-------+ +-------+---+---+ | Given | 12/31/19 | 10 mg | | | | | 15 8:50 | | | | | | AM PDT | | | | +-------+ +-------+---+---+ +---+---+ | | | +---+---+ documented in this encounter"
--- OUTSIDE RECORDS SUMMARY | ~2020-01-10 | XMS | Encounter Summary ---
Demographics + + + | Address | [address] | | | [place] [address] | + + + | Home Phone [...] [place] | | | | | [address] | | + + + + + | Ronny Rene | ECON | Unknown | | + + + + + | Char Woodard | ECON | Unknown | | + + + + + Care Team Providers + +------+ + | Care Staff Developer Name | Role | Phone | [...] | | | | [address] | [facility] | | | | | [facility], | [place], [place] | | | | | [address] [place] [address] | [address] | | | | | [place], [place] | [phone] | | | | | [address] | | | | | | [phone] | | | +--------+ + + + [...]
--- OUTSIDE RECORDS SUMMARY | ~2020-01-10 | XMS | Encounter Summary ---
Demographics + + + | Address | [address] | | | [place] [address] | + + + | Home Phone | | + + + | Preferred Language | Unknown | + + + | Marital Status | | + + + | Holiness Affiliation | Unknown | + + + | Race | Unknown | + + + | Ethnic Group | Unknown | + + + Author + + + | Author | [facility] | | | and Tobyana | + + + | Organization | [facility] | | | and Tobyana | + + + | Address | Unknown | + + + | Phone | Unavailable | + + + Support + + + + + | Name | Relationship | Address | Phone | + + + + + | Selena Jimenez | ECON | [id number] | | | | | [place] [address] | | + + + + + Care Team Providers + +------+ + | Care Tailman Name | Role | Phone | + +------+ + PCP | Unavailable | + +------+ + Reason for Visit + + + | Reason | Comments | + + + | Medication Refill | | + + + Encounter Details +--------+--------+ + + + | Date | Type | Department | Care Team | Description | +--------+--------+ + + + | 02/19/ | Refill | [facility] | Bernice Antonio, | Medication Refill | | 2012 | | CARDIOLOGY [address] | MD [address] | | | | | [place], | [place], | | | | | [place] [address] | [place] [address] | | | | | [phone] | [phone] | | | | | | | [...] [place], | | | | | | [place] [address] | | | | | | [phone] | | | | | | | | +--------+---------+ + + + documented as of this encounter Visit Diagnoses Not on filedocumented in this encounter"
--- OUTSIDE RECORDS SUMMARY | ~2020-01-10 | XMS | Encounter Summary ---
Demographics + + + | Address | [address] | | | [place] [address] | + + + | Home Phone | | + + + | Preferred Language | Unknown | + + + | Marital Status | | + + + | Quaker Affiliation | NON | + + + [...] [place] | | | | | [address] | | + + + + + | Ronny Rene | ECON | Unknown | | + + + + + | Char Woodard | ECON | Unknown | | + + + + + Care Team Providers + +------+ + | Care Benefits Processor Name | Role | Phone | + +------+ + | Deondre Landis MD | PCP | | + +------+ + Reason for Visit + + + | Reason | Comments | + + + | Outside Records | Upper GI | | Received | | + + + Encounter Details +--------+ + + + + | Date | Type | Department | Care Team | Description | +--------+ + + + + | 10/01/ | Abstract | [facility] | Vijay Akbar MD | Outside Records | | 2017 | | Center [place] [address] | [address] | Received (Upper GI) | | | | [facility] | [facility] | | | | | [facility] and | [place] [address] | | | | | [place] [address] | [phone] | | | | | [place], [place] | | | | | | [address] | | | | | | [phone] | | | +--------+ + + + [...]
--- OUTSIDE RECORDS SUMMARY | ~2020-01-10 | XMS | Encounter Summary ---
Demographics + + + | Address | [address] | | | [place] [address] | + + + | Home Phone | | + + + | Preferred Language | Unknown | + + + | Marital Status | | + + + | Islam Affiliation | NON | + + + [...] [place] | | | | | [address] | | + + + + + | Ronny Rene | ECON | Unknown | | + + + + + | Char Woodard | ECON | Unknown | | + + + + + Care Team Providers + +------+ + | Care Shrub Planter Name | Role | Phone | + [...] | | 2014 | | Center at [facility] [address] | [address] | | | | | [facility] | [facility] | | | | | [facility] and | [place] [address] | | | | | [place] [address] | [phone] | | | | | [place], [place] | | | | | | [address] | | | | | | [phone] | | | +--------+ + + + [...]
--- OUTSIDE RECORDS SUMMARY | ~2020-01-10 | XMS | Encounter Summary ---
Demographics + + + | Address | [address] | | | [place] [address] | + + + | Home Phone | | + + + | Preferred Language | Unknown | + + + | Marital Status | | + + + | Jehovah'S Witness Affiliation | NON | + + + [...] [place] | | | | | [address] | | + + + + + | Ronny Rene | ECON | Unknown | | + + + + + | Char Woodard | ECON | Unknown | | + + + + + Care Team Providers + +------+ + | Care Soccer Player Name | Role | Phone | + +------+ + | Deondre Landis MD | PCP | | + +------+ + Reason for Visit + + + | Reason | Comments | + + + | Return Patient | | + + + Encounter Details +--------+---------+ + + + | Date | Type | Department | Care Team | Description | +--------+---------+ + + + | 04/11/ | Office | Digestive Health | Vijay Akbar MD | Anastomotic leak | | 2015 | Visit | Center at [place] [id number] | [address] | following | | | | [facility] | [facility], | esophagectomy | | | | for Health and | [place] [address] | (Primary Dx) | | | | [facility] [address] | [phone] | | | | | [place], [place] | | | | | | [address] | | | | | | [phone] | | | +--------+---------+ + + + [...] + + + | Blood Pressure | 113/57 | 04/11/2015 9:42 AM | | | | | PDT | | + + + + + | Pulse | 56 | 04/11/2015 9:42 AM | | | | | PDT | | + + + + + | Temperature | 36.6 C (97.8 F) | 04/11/2015 9:42 AM | | | | | PDT | | + + + + + | Respiratory Rate | 16 | 04/11/2015 9:42 AM | | | | | PDT | | + + + + + | Oxygen Saturation | 97% | 04/11/2015 9:42 AM | | | | | PDT | | + + + + + | Inhaled Oxygen | - | - | | | Concentration | | | | + + + + + | Weight | 77.1 kg (169 lb 14.4 | 04/11/2015 9:42 AM | | | | oz) | PDT | | + + + + + | Height | 177.8 cm (5' 10") | 04/11/2015 9:42 AM | | | | | PDT | | + + + + + | Body Mass Index | 24.38 | 04/11/2015 9:42 AM | | | | | PDT | | + + + + + documented in this encounter Progress Notes Eric Conley MD - 04/11/2015 11:[facility]: 04/11/2015 Attending Physician: Raffy Author: Eric Dey MD Chief Complaint: Eosphageal leak HPI: Junaid Jimenez is a 75 y.o. 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 He is post transhiatal esophagectomy (03/27/15) complicated with an anastomotic leak. He was discharge to a nursing facility for tube feedin g and wound care. He arrived today for his first postoperative appointment. He has been isaac vering well at the nursing facility and is being discharged home. He denies fever, chills, n ausea, abdominal pain, chest pain or palpitations. His cervical. morales drain fell a few da ys ago. Tolerating tube feeds at night with normal bowel function. Physical Exam: Last Vitals: BP 113/57 | Pulse 56 | Temp (Src) 36.6 C (97.8 F) (Oral) | RR 16 | Ht 1.77 8 m (5' 10") | Wt 77.066 kg (169 lb 14.4 oz) | SpO2 97% | BMI 24.38 kg/(m^2) General: NAD, Awake, alert. Neck incision with faint erythema and fibrinous exudate over the previous morales site. The area was injected with lidocaine and a new morales drain was inserted and sutured in place. No evidence of cellulitis. Abdominal: Soft, NT, ND, no peritoneal signs. Incisions clean dry and intact. jejunosotmy tube in place. Extremities: WWP, no edema. Distal pulses 2+ and symmetric IMAGING Esophagram. 04/11/2015 IMPRESSION: Persistent small proximal anastomotic blind-ending leak/collection, stable to slightly decreased in size. Assessment and plan: Junaid Jimenez is a 75 y.o. male post transhiatal esophagectomy with a small resolving anastomotic leak. His leak is healing and he does not show any signs of acti ve infection. We replaced his morales drain and redressed his neck. He has great support at home who know how to manage his wound care as well as his tube feeds. Given the lack of cell ulitis he does not need any more antibiotic treatment only drainage will be sufficient. He s hould remain NPO receiving 100 % of his nutrition through tube feeds. We will plan to see thuan aaron back in clinic in two weeks with a new esophagram to assess his leak. All questions were a nswered. - ERIC FRANKS MD MIS Fellow [facility], Dept. of Surgery Pager [phone] STAFF: I personally interviewed the patient, performed the pertinent parts of the physical examina tion and personally formulated the plan with the resident. I agree with the residents docum entation and have documented any additions or exceptions. documented in this encou nter Plan of Treatment Not on filedocumented as of this encounter Results X-RAY ESOPHAGRAM (04/25/2015 11:48 [...] patient | | | | | | todrink. The procedure | | | | | | was performed by | | | | | | amrit Gibson | | | | | | radiologist.Total | | | | | | fluoroscopic time was 2 | | | | | | minutes and 3 seconds. | | | | | | FINDINGS: Initial residential concierge | | | | | | image demonstrates a | | | | | | Morales drain at the | | | | [...]
--- OUTSIDE RECORDS SUMMARY | ~2020-01-10 | XMS | Encounter Summary ---
Demographics + + + | Address | [address] | | | [place] [address] | + + + | Home Phone | | + + + | Preferred Language | Unknown | + + + | Marital Status | | + + + | Mandaen Affiliation | Unknown | + + + | Race | Unknown | + + + | Ethnic Group | Unknown | + + + Author + + + | Author | [facility] | | | and Tobyana | + + + | Organization | [facility] | | | and Tobyana | + + + | Address | Unknown | + + + | Phone | Unavailable | + + + Support + + + + + | Name | Relationship | Address | Phone | + + + + + | Selena Jimenez | ECON | [id number] | | | | | [place] [address] | | + + + + + Care Team Providers + +------+ + | Care Concrete Vault Maker Name | Role | Phone | + +------+ + | Mingo Burgos DO | PCP | | + +------+ + Encounter Details +--------+ + + + + | Date | Type | Department | Care Team | Description | +--------+ + + + + | 07/11/ | Abstract | [facility] | Bernice Antonio, | CAD (coronary artery | | 2012 | | CARDIOLOGY [address] | MD [address] | disease) (Primary | | | | [place], | [place], | Dx); Hypertension; | | | | [place] [address] | [place] [address] | Hyperlipidemia; | | | | [phone] | [phone] | Chest pain; | | | | | | Esophageal reflux; | | | | | | Tobacco use | | | | | | disorder; Obesity, | | | | | | unspecified; CAD | +--------+ + + + + Social History + +-------+ +--------+------+ | Tobacco Use | Types | Packs/Day | Years | Date | | | | | Used | | + +-------+ +--------+------+ | Current Every Day | | | | | | Smoker | | | | | + +-------+ +--------+------+ + + +---------+ + | Alcohol Use | Drinks/Week | oz/Week | Comments | + + +---------+ + | Not Asked | | | | + + +---------+ + [...] | Blood Pressure | 164/76 | 12/08/2011 1:51 PM | | | | | PDT | | + + + + + | Pulse | 60 | 12/08/2011 1:51 PM | | | | | PDT | | + + + + + | Temperature | - | - | | + + + + + | Respiratory Rate | 18 | 12/08/2011 1:51 PM | | | | | PDT | | + + + + + | Oxygen Saturation | - | - | | + + + + + | Inhaled Oxygen | - | - | | | Concentration | | | | + + + + + | Weight | 90.7 kg (200 lb) | 12/08/2011 1:51 PM | | | | | PDT | | + + + + + | Height | 180.3 cm (5' 11") | 12/08/2011 1:51 PM | | | | | PDT | | + + + + + | Body Mass Index | 27.89 | 12/08/2011 1:51 PM | | | | | PDT | | + + + + + documented in this encounter Plan of Treatment +--------+---------+ + + + | Date | Type | Specialty | Care Team | Description | +--------+---------+ + + + | 02/14/ | Office | Cardiology | Bernice Antonio, | | | 2019 | Visit | | [facility] | | | | | | [place], | | | | | | [place] [address] | | | | | | [phone] | | | | | | | | +--------+---------+ + + + documented as of this encounter Visit Diagnoses + + | Diagnosis | + + | CAD - Primary Coronary atherosclerosis of unspecified type of vessel, [place] or graft | + + | Hypertension Unspecified essential hypertension | + + | Hyperlipidemia Other and unspecified hyperlipidemia | + + | Chest pain Chest pain, unspecified | + + | Esophageal reflux | + + | Tobacco use disorder | + + | Obesity, unspecified | + + documented in this encounter
--- OUTSIDE RECORDS SUMMARY | ~2020-01-10 | XMS | Encounter Summary ---
Demographics + + + | Address | [address] | | | [place] [address] | + + + | Home Phone | | + + + | Preferred Language | Unknown | + + + | Marital Status | | + + + | Rastafari Affiliation | NON | + + + | Race | White | + + + | Ethnic Group | Not or | + + + Author + + + | Author | [facility] | + + + | Organization | [facility] | + + + | Address | Unknown | + + + | Phone | Unavailable | + + + Support + + + + + | Name | Relationship | Address | Phone | + + + + + | Selena Jimenez | ECON | [address] | | | | | [place] | | | | | [address] | | + + + + + | Ronny Rene | ECON | Unknown | | + + + + + | Char Woodard | ECON | Unknown | | + + + + + Care Team Providers + +------+ + | Care Food Beverage Supervisor Name | Role | Phone | + +------+ + | Deondre Landis MD | PCP | | + +------+ + Encounter Details +--------+ + + + + | Date | Type | Department | Care Team | Description | +--------+ + + + + | 11/26/ | Hospital | LAB SURGICAL | | | | 2015 | Encounter | PATHOLOGY [address] | | | | | [address] | | | | | | [place], [place] | | | | | | [address] | | | +--------+ + + + [...]
--- OUTSIDE RECORDS SUMMARY | ~2020-01-10 | XMS | Encounter Summary ---
Demographics + + + | Address | [address] | | | [place] [address] | + + + | Home Phone [...] [place] | | | | | [address] | | + + + + + | Ronny Rene | ECON | Unknown | | + + + + + | Char Woodard | ECON | Unknown | | + + + + + Care Team Providers + +------+ + | Care Account Executive Software Sales Name | Role | Phone | + +------+ + | Deondre Landis MD | PCP | | + +------+ + Encounter Details +--------+ + + + + | Date | Type | Department | Care Team | Description | +--------+ + + + + | 04/11/ | Hospital | Radiology/Imaging | | | | 2014 | Encounter | Lab at [facility] [address] | | | | | | [facility] | | | | | | for Health and | | | | | | Healing, [address], | | | | | | 3rd Floor | | | | | | [place], [place] | | | | | | [address] | | | | | | [phone] | | | +--------+ + + + [...] | 1 | 04/11/20 | | | [id number] | tube route once | | | [...] + | X-RAY ESOPHAGRAM | Routin | 04/11/2015 | Esophageal cancer | Results for this | | | e | 9:30 AM | (HCC) | procedure are in the | | | | PDT | | results section. | + +--------+ + + + documented in this encounter Results X-RAY ESOPHAGRAM (04/11/2015 9:30 AM PDT) + + [...] | | | | | demonstrates [address] | | | | | | drains [...] TOMA | | | | | | V MD ROLAN I have | | | | | [...] | | + +---------+ + + | [facility] DEPARTMENT OF | | | | | RADIOLOGY | | | | + +---------+ + + documented in this encounter Visit Diagnoses + + | Diagnosis | + + | Esophageal cancer (HCC) Malignant neoplasm of esophagus, unspecified site | + + documented in this encounter"
--- OUTSIDE RECORDS SUMMARY | ~2020-01-10 | XMS | Encounter Summary ---
Demographics + + + | Address | [address] | | | [place] [address] | + + + | Home Phone [...] [place] | | | | | [address] | | + + + + + | Ronny Rene | ECON | Unknown | | + + + + + | Char Woodard | ECON | Unknown | | + + + + + Care Team Providers + +------+ + | Care Cover Mat Machine Operator Name | Role | Phone [...] | | 2017 | | Center at [facility] [address] | [address] [place] | | | | | [facility] | [facility] | | | | | [facility] and | [place] [address] | | | | | [place] [address] | [phone] | | | | | [place], [place] | | | | | | [address] | | | | | | [phone] | | | +--------+ + + + [...]
--- OUTSIDE RECORDS SUMMARY | ~2020-01-10 | XMS | Encounter Summary ---
Demographics + + + | Address | [address] | | | [place] [address] | + + + | Home Phone | | + + + | Preferred Language | Unknown | + + + | Marital Status | | + + + | Yazidi Affiliation | Unknown | + + + | Race | Unknown | + + + | Ethnic Group | Unknown | + + + Author + + + | Author | [facility] | | | and [place] | + + + | Organization | [facility] | | | and [place] | + + + | Address | Unknown | + + + | Phone | Unavailable | + + + Support + + + + + | Name | Relationship | Address | Phone | + + + + + | Selena Jimenez | ECON | [id number] | | | | | [place] [address] | | + + + + + Care Team Providers + +------+ + | Care Production Analyst Name | Role | Phone | + +------+ + | Mingo Burgos DO | PCP | | + +------+ + Encounter Details +--------+ + + + + | Date | Type | Department | Care Team | Description | +--------+ + + + + | 07/01/ | Abstract | [facility] | Bernice Antonio, | | | 2014 | | CARDIOLOGY [address] | | | | | [place], | [place], | | | | | [place] [address] | [place] [address] | | | | | [phone] | [phone] | | | | | | | [...] | | | | | | [place] [address] | | | | | | [phone] | | | | | | | | +--------+---------+ + + + documented as of this encounter Procedures + +--------+ + + + | Procedure Name | Priori | Date/Time | Associated Diagnosis | Comments | | | ty | | | | + +--------+ + + + | LIPID PANEL | Routin | 07/02/2015 | | Results for this | | | e | | | procedure are in the | | | | | | results section. | + +--------+ + + + | CBC NO DIFFERENTIAL | Routin | 07/02/2015 | | Results for this | | | e | | | procedure are in the | | | | | | results section. | + +--------+ + + + | COMPREHENSIVE | Routin | 07/02/2015 | | Results for this | | METABOLIC PANEL | e | | | procedure are in the | | | | | | results section. | + +--------+ + + + | EXTERNAL LAB: T4 | Routin | 07/01/2015 | | Results for this | | TOTAL | e | | | procedure are in the | | | | | | results section. | + +--------+ + + + | EXTERNAL LAB: BUN | Routin | 07/01/2015 | | Results for this | | | e | | | procedure are in the | | | | | | results section. | + +--------+ + + + | EXTERNAL LAB: | Routin | 07/01/2015 | | Results for this | | GLUCOSE | e | | | procedure are in the | | | | | | results section. | + +--------+ + + + | EXTERNAL LAB: ALT | Routin | 07/01/2015 | | Results for this | | | e | | | procedure are in the | | | | | | results section. | + +--------+ + + + | EXTERNAL LAB: AST | Routin | 07/01/2015 | | Results for this | | | e | | | procedure are in the | | | | | | results section. | + +--------+ + + + | EXTERNAL LAB: | Routin | 07/01/2015 | | Results for this | | ALKALINE PHOSPHATASE | e | | | procedure are in the | | | | | | results section. | + +--------+ + + + | EXTERNAL LAB: | Routin | 07/01/2015 | | Results for this | | BILIRUBIN, TOTAL | e | | | procedure are in the | | | | | | results section. | + +--------+ + + + | EXTERNAL LAB: | Routin | 07/01/2015 | | Results for this | | ALBUMIN | e | | | procedure are in the | | | | | | results section. | + +--------+ + + + | EXTERNAL LAB: | Routin | 07/01/2015 | | Results for this | | PROTEIN, TOTAL | e | | | procedure are in the | | | | | | results section. | + +--------+ + + + | EXTERNAL LAB: | Routin | 07/01/2015 | | Results for this | | CALCIUM | e | | | procedure are in the | | | | | | results section. | + +--------+ + + + | EXTERNAL LAB: CARBON | Routin | 07/01/2015 | | Results for this | | DIOXIDE | e | | | procedure are in the | | | | | | results section. | + +--------+ + + + | EXTERNAL LAB: | Routin | 07/01/2015 | | Results for this | | CHLORIDE | e | | | procedure are in the | | | | | | results section. | + +--------+ + + + | EXTERNAL LAB: | Routin | 07/01/2015 | | Results for this | | POTASSIUM | e | | | procedure are in the | | | | | | results section. | + +--------+ + + + | EXTERNAL LAB: SODIUM | Routin | 07/01/2015 | | Results for this | | | e | | | procedure are in the | | | | | | results section. | + +--------+ + + + | EXTERNAL LAB: CBC | Routin | 07/01/2015 | | Results for this | | | e | | | procedure are in the | | | | | | results section. | + +--------+ + + + | EXTERNAL LAB: TSH | Routin | 07/01/2015 | | Results for this | | | e | | | procedure are in the | | | | | | results section. | + +--------+ + + + | EXTERNAL LAB: | Routin | 07/01/2015 | | Results for this | | TRIGLYCERIDES | e | | | procedure are in the | | | | | | results section. | + +--------+ + + + | EXTERNAL LAB: | Routin | 07/01/2015 | | Results for this | | CHOLESTEROL, HDL | e | | | procedure are in the | | | | | | results section. | + +--------+ + + + | EXTERNAL LAB: | Routin | 07/01/2015 | | Results for this | | CHOLESTEROL, TOTAL | e | | | procedure are in the | | | | | | results section. | + +--------+ + + + | EXTERNAL LAB: | Routin | 07/01/2015 | | Results for this | | CHOLESTEROL, LDL | e | | | procedure are in the | | | | | | results section. | + +--------+ + + + | EXTERNAL LAB: EGFR | Routin | 07/01/2015 | | Results for this | | | e | | | procedure are in the | | | | | | results section. | + +--------+ + + + | EXTERNAL LAB: | Routin | 07/01/2015 | | Results for this | | CREATININE | e | | | procedure are in the | | | | | | results section. | + +--------+ + + + documented in this encounter Results CBC no Differential (07/02/2015) + +-------+ + + + | Component | Value | Ref Range | Performed | Pathologist | | | | | At | Signature | + +-------+ + + + | MCH | 30.0 | 27.0 - 33.0 pg | [facility] | | | [facility] - | | | | | | LABORATORY | | + +-------+ + + + | [facility] | 33.0 | 31.0 - 37.0 % | [facility] | | [facility] | | [facility] | | | | | [facility] - | | | | | | LABORATORY | | + +-------+ + + + | Erythrocyte | 9 | 0 - 10 mm/hr | [facility] | | | [facility] | | | [facility] | | | [facility] | | | on Rate | | | CENTER - | | [...] [address] | [place] | [phone] | | [facility] | | [address], [facility] | | | - LABORATORY | | | | + + + + + Comprehensive Metabolic Panel (07/02/2015) + +-------+ + + + | Component | Value | Ref Range | Performed | Pathologist | | | | | At | Signature | + +-------+ + + + | Anion Gap | 18 | 7 - 21 mmol/L | [facility] | | | | | [facility] | | | | | [facility] - | | | | | | LABORATORY | | + +-------+ + + + | Bun/Creatin | 11.0 | 6.0 - 28.6 | [facility] | | ine | | | [facility] | | | | | | [facility] | | | [facility] | | [facility] - | | | | | | LABORATORY | | + +-------+ + + + | Globulin | 2.8 | 1.8 - 3.5 | [facility] | | | | | | [facility] | | | | | | [facility] - | | | | | | LABORATORY | | + +-------+ + + + | Albumin/Ashley | 1.4 | 1.1 - 2.4 | [facility] | [...] + | [facility] | [address] | [place] | [phone] | | [facility] | | [address], [facility] | | | - LABORATORY | | | | + + + + + Lipid Panel (07/02/2015) + +-------+ + + + | Component | Value | Ref Range | Performed | Pathologist | | | | | At | Signature | + +-------+ + + + | VLDL | 9 | 4 - 40 mg/dL | | | + +-------+ + + + | CHOL/HDL | 1.6 | 4.97 | | | | RISK | | | | | + +-------+ + + + | Non HDL | 58 | 130 | | | | Chol. | | | | | | (LDL+VLDL) | | | | | + +-------+ + + + + + | Specimen | + + | Blood specimen | | (specimen) | + + External Lab: T4 Total (07/01/2015) + +-------+ + + + | Component | Value | Ref Range | Performed | Pathologist | | | | | At | Signature | + +-------+ + + + | T4 Total, | 1.31 | | EXTERNAL | | | External | | | LAB | | + +-------+ + + + + + | Resulting Agency Comment | + + | [facility] | + + + +---------+ + + | Performing | Address | City/State/Zipcode | Phone Number | | Organization | | | | + +---------+ + + | EXTERNAL LAB | | | | + +---------+ + + External Lab: MOIRA (07/01/2015) + +-------+ + + + | Component | Value | Ref Range | Performed | Pathologist | | | | | At | Signature | + +-------+ + + + | BUN, | 12 | 6 - 23 | EXTERNAL | | | External | | | LAB | | + +-------+ + + + + + | Resulting Agency Comment | + + | [facility] | + + + +---------+ + + | Performing | Address | City/State/Zipcode | Phone Number | | Organization | | | | + +---------+ + + | EXTERNAL LAB | | | | + +---------+ + + External Lab: Glucose (07/01/2015) + +-------+ + + + | Component | Value | Ref Range | Performed | Pathologist | | | | | At | Signature | + +-------+ + + + | Glucose, | 93 | 70 - 100 | EXTERNAL | | | External | | | LAB | | + +-------+ + + + + + | Resulting Agency Comment | + + | [facility] | + + + +---------+ + + | Performing | Address | City/State/Zipcode | Phone Number | | Organization | | | | + +---------+ + + | EXTERNAL LAB | | | | + +---------+ + + External Lab: ALT (07/01/2015) + +-------+ + + + | Component | Value | Ref Range | Performed | Pathologist | | | | | At | Signature | + +-------+ + + + | ALT, | 16 | 7 - 52 | EXTERNAL | | | External | | | LAB | | + +-------+ + + + + + | Resulting Agency Comment | + + | [facility] | + + + +---------+ + + | Performing | Address | City/State/Zipcode | Phone Number | | Organization | | | | + +---------+ + + | EXTERNAL LAB | | | | + +---------+ + + External Lab: SALVADOR (07/01/2015) + +-------+ + + + | Component [...] Agency Comment | + + | [facility] | + + + +---------+ + + | Performing | Address | City/State/Zipcode | Phone Number | | Organization | | | | + +---------+ + + | EXTERNAL LAB | | | | + +---------+ + + External Lab: Alkaline Phosphatase (07/01/2015) + +-------+ + + + | Component | Value | Ref Range | Performed | Pathologist | | | | | At | Signature | + +-------+ + + + | ALP, | 102 | 30 - 128 | EXTERNAL | | | External | | | LAB | | + +-------+ + + + + + | Resulting Agency Comment | + + | [facility] | + + + +---------+ + + | Performing | Address | City/State/Zipcode | Phone Number | | Organization | | | | + +---------+ + + | EXTERNAL LAB | | | | + +---------+ + + External Lab: Bilirubin, Total (07/01/2015) + +-------+ + + + | Component | Value | Ref Range | Performed | Pathologist | | | | | At | Signature | + +-------+ + + + | Bilirubin, | 0.8 | 0 - 0.8 | EXTERNAL | | | Total, | | | LAB | | | External | | | | | + +-------+ + + + + + | Resulting Agency Comment | + + | [facility] | + + + +---------+ + + | Performing | Address | City/State/Zipcode | Phone Number | | Organization | | | | + +---------+ + + | EXTERNAL LAB | | | | + +---------+ + + External Lab: Albumin (07/01/2015) + +-------+ + + + | Component | Value | Ref Range | Performed | Pathologist | | | | | At | Signature | + +-------+ + + + | Albumin, | 3.9 | 3.5 - 5 | EXTERNAL | | | External | | | LAB | | + +-------+ + + + + + | Resulting Agency Comment | + + | [facility] | + + + +---------+ + + | Performing | Address | City/State/Zipcode | Phone Number | | Organization | | | | + +---------+ + + | EXTERNAL LAB | | | | + +---------+ + + External Lab: Protein, Total (07/01/2015) + +-------+ + + + | Component | Value | Ref Range | Performed | Pathologist | | | | | At | Signature | + +-------+ + + + | Protein, | 6.7 | 6 - 8 | EXTERNAL | | | Total, | | | LAB | | | External | | | | | + +-------+ + + + + + | Resulting Agency Comment | + + | [facility] | + + + +---------+ + + | Performing | Address | City/State/Zipcode | Phone Number | | Organization | | | | + +---------+ + + | EXTERNAL LAB | | | | + +---------+ + + External Lab: Calcium (07/01/2015) + +-------+ + + + | Component | Value | Ref Range | Performed | Pathologist | | | | | At | Signature | + +-------+ + + + | Calcium, | 9.7 | 8.4 - 10.2 | EXTERNAL | | | External | | | LAB | | + +-------+ + + + + + | Resulting Agency Comment | + + | [facility] | + + + +---------+ + + | Performing | Address | City/State/Zipcode | Phone Number | | Organization | | | | + +---------+ + + | EXTERNAL LAB | | | | + +---------+ + + External Lab: Carbon Dioxide (07/01/2015) + +-------+ + + + | Component | Value | Ref Range | Performed | Pathologist | | | | | At | Signature | + +-------+ + + + | Carbon | 24 | 19 - 31 | EXTERNAL | | | Dioxide, | | | LAB | | | External | | | | | + +-------+ + + + + + | Resulting Agency Comment | + + | [facility] | + + + +---------+ + + | Performing | Address | City/State/Zipcode | Phone Number | | Organization | | | | + +---------+ + + | EXTERNAL LAB | | | | + +---------+ + + External Lab: Chloride (07/01/2015) + +-------+ + + + | Component [...] Agency Comment | + + | [facility] | + + + +---------+ + + | Performing | Address | City/State/Zipcode | Phone Number | | Organization | | | | + +---------+ + + | EXTERNAL LAB | | | | + +---------+ + + External Lab: Potassium (07/01/2015) + +-------+ + + + | Component | Value | Ref Range | Performed | Pathologist | | | | | At | Signature | + +-------+ + + + | Potassium, | 4.8 | 3.6 - 5.1 | EXTERNAL | | | External | | | LAB | | + +-------+ + + + + + | Resulting Agency Comment | + + | [facility] | + + + +---------+ + + | Performing | Address | City/State/Zipcode | Phone Number | | Organization | | | | + +---------+ + + | EXTERNAL LAB | | | | + +---------+ + + External Lab: Sodium (07/01/2015) + +-------+ + + + | Component | Value | Ref Range | Performed | Pathologist | | | | | At | Signature | + +-------+ + + + | Sodium, | 135 | 132 - 143 | EXTERNAL | | | External | | | LAB | | + +-------+ + + + + + | Resulting Agency Comment | + + | [facility] | + + + +---------+ + + | Performing | Address | City/State/Zipcode | Phone Number | | Organization | | | | + +---------+ + + | EXTERNAL LAB | | | | + +---------+ + + External Lab: CBC (07/01/2015) + + + + + + | Component | Value | Ref Range | Performed | Pathologist | | | | | At | Signature | + + + + + + | PLT, | 236 | 140 - 440 | EXTERNAL | | | External | | | LAB | | + + + + + + | Neutrophils | 58.3 | 39 - 80 | EXTERNAL | | | %, | | | LAB | | | External | | | | | + + + + + + | Lymphocytes | 21.1 (A) | 24 - 44 | EXTERNAL | | | %, | | | LAB | | | External | | | | | + + + + + + | Monocytes | 12.1 (A) | 0 - 12 | EXTERNAL | | | %, External | | | LAB | | + + + + + + | MCV, | 90 | 81 - 99 | EXTERNAL | | | External | | | LAB | | + + + + + + | RDW, | 13.6 | 10.5 - 15 | EXTERNAL | | | External | | | LAB | | + + + + + + + + | Resulting Agency Comment | + + | [facility] | + + + +---------+ + + | Performing | Address | City/State/Zipcode | Phone Number | | Organization | | | | + +---------+ + + | EXTERNAL LAB | | | | + +---------+ + + External Lab: TSH (07/01/2015) + +-------+ + + + | Component | Value | Ref Range | Performed | Pathologist | | | | | At | Signature | + +-------+ + + + | TSH, | 1.58 | | EXTERNAL | | | External | | | LAB | | + +-------+ + + + + + | Specimen | + + | Blood specimen | | (specimen) | + + + + | Resulting Agency Comment | + + | [facility] | + + + +---------+ + + | Performing | Address | City/State/Zipcode | Phone Number | | Organization | | | | + +---------+ + + | EXTERNAL LAB | | | | + +---------+ + + External Lab: Triglycerides (07/01/2015) + +-------+ + + + | Component | Value | Ref Range | Performed | Pathologist | | | | | At | Signature | + +-------+ + + + | Triglycerid | 43 | 30 - 150 | EXTERNAL | | | es, | | | LAB | | | External | | | | | + +-------+ + + + + + | Specimen | + + | Blood specimen | | (specimen) | + + + + | Resulting Agency Comment | + + | [facility] | + + + +---------+ + + | Performing | Address | City/State/Zipcode | Phone Number | | Organization | | | | + +---------+ + + | EXTERNAL LAB | | | | + +---------+ + + External Lab: Cholesterol, HDL (07/01/2015) + +-------+ + + + | Component | Value | Ref Range | Performed | Pathologist | | | | | At | Signature | + +-------+ + + + | HDL | 93.3 | 40 mg/dl | EXTERNAL | | | Cholesterol | | | LAB | | | , External | | | | | + +-------+ + + + + + | Specimen | + + | Blood specimen | | (specimen) | + + + + | Resulting Agency Comment | + + | [facility] | + + + +---------+ + + | Performing | Address | City/State/Zipcode | Phone Number | | Organization | | | | + +---------+ + + | EXTERNAL LAB | | | | + +---------+ + + External Lab: Cholesterol, Total (07/01/2015) + +-------+ + + + | Component | Value | Ref Range | Performed | Pathologist | | | | | At | Signature | + +-------+ + + + | Cholesterol | 151 | 200 mg/dl | EXTERNAL | | | , Total, | | | LAB | | | External | | | | | + +-------+ + + + + + | Specimen | + + | Blood specimen | | (specimen) | + + + + | Resulting Agency Comment | + + | [facility] | + + + +---------+ + + | Performing | Address | City/State/Zipcode | Phone Number | | Organization | | | | + +---------+ + + | EXTERNAL LAB | | | | + +---------+ + + External Lab: Cholesterol, LDL (07/01/2015) + +-------+ + + + | Component | Value | Ref Range | Performed | Pathologist | | | | | At | Signature | + +-------+ + + + | LDL | 49 | 100 | EXTERNAL | | | Cholesterol | | | LAB | | | , Direct, | | | | | | External | | | | | + +-------+ + + + + + | Specimen | + + | Blood specimen | | (specimen) | + + + + | Resulting Agency Comment | + + | [facility] | + + + +---------+ + + | Performing | Address | City/State/Zipcode | Phone Number | | Organization | | | | + +---------+ + + | EXTERNAL LAB | | | | + +---------+ + + External Lab: eGFR (07/01/2015) + +-------+ + + + | Component | Value | Ref Range | Performed | Pathologist | | | | | At | Signature | + +-------+ + + + | eGFR, | 66 | | EXTERNAL | | | External | | | LAB | | + +-------+ + + + + + | Specimen | + + | Blood specimen | | (specimen) | + + + + | Resulting Agency Comment | + + | [facility] | + + + +---------+ + + | Performing | Address | City/State/Zipcode | Phone Number | | Organization | | | | + +---------+ + + | EXTERNAL LAB | | | | + +---------+ + + External Lab: Creatinine (07/01/2015) + +-------+ + + + | Component | Value | Ref Range | Performed | Pathologist | | | | | At | Signature | + +-------+ + + + | Creatinine, | 1.09 | 0.7 - 1.18 | EXTERNAL | | | External | | | LAB | | + +-------+ + + + + + | Specimen | + + | Blood specimen | | (specimen) | + + + + | Resulting Agency Comment | + + | [facility] | + + + +---------+ + + | Performing | Address | City/State/Zipcode | Phone Number | | Organization | | | | + +---------+ + + | EXTERNAL LAB | | | | + +---------+ + + documented in this encounter Visit Diagnoses Not on filedocumented in this encounter"
--- OUTSIDE RECORDS SUMMARY | ~2020-01-10 | XMS | Encounter Summary ---
Demographics + + + | Address | [address] | | | [place] [address] | + + + | Home Phone | | + + + | Preferred Language | Unknown | + + + | Marital Status | | + + + | Zoroastrian Affiliation | NON | + + + | Race | White | + + + | Ethnic Group | Not or | + + + Author + + + | Author | [facility] | + + + | Organization | [facility] | + + + | Address | Unknown | + + + | Phone | Unavailable | + + + Support + + + + + | Name | Relationship | Address | Phone | + + + + + | Selena Jimenez | ECON | [address] | | | | | [place] | | | | | [address] | | + + + + + | Ronny Rene | ECON | Unknown | | + + + + + | Char Woodard | ECON | Unknown | | + + + + + Care Team Providers + +------+ + | Care Flight Readiness Technician Name | Role | Phone | [...] | +--------+ + + + + | 11/16/ | Abstract | [facility] | Vijay Akbar MD | Medical Records | | 2017 | | Center [place] [address] [address] | [address] | Review | | | | [facility] | [facility], | | | | | [facility] and | [place] [address] | | | | | [facility] [place] [address] | [phone] | | | | | [place], [place] | | | | | | [address] | | | | | | [phone] | | | +--------+ + + + [...]
--- OUTSIDE RECORDS SUMMARY | ~2020-01-10 | XMS | Encounter Summary ---
Demographics + + + | Address | [address] | | | [place] [address] | + + + | Home Phone | | + + + | Preferred Language | Unknown | + + + | Marital Status | | + + + | Gnosticism Affiliation | NON | + + + | Race | White | + + + | Ethnic Group | Not or | + + + Author + + + | Author | [facility] | + + + | Organization | [facility] | + + + | Address | Unknown | + + + | Phone | Unavailable | + + + Support + + + + + | Name | Relationship | Address | Phone | + + + + + | Selena Jimenez | ECON | [address] | | | | | [place] | | | | | [address] | | + + + + + | Ronny Rene | ECON | Unknown | | + + + + + | Char Woodard | ECON | Unknown | | + + + + + Care Team Providers + +------+ + | Care Diesel Maintenance Technician Name | Role | Phone | + +------+ + | Deondre Landis MD | PCP | | + +------+ + Encounter Details +--------+ + + + + | Date | Type | Department | Care Team | Description | +--------+ + + + + | 01/13/ | Abstract | [facility] | Rubin Lorenzo | | | 2014 | | [place] [address] | MD Doris [address] [facility] | | | | | [facility] | [facility] | | | | | [facility] and | [employer], [place] | | | | | [facility] [address] | [address] | | | | | [place], [place] | [phone] | | | | | [address] | | | | | | [phone] | | | +--------+ + + + [...]
--- OUTSIDE RECORDS SUMMARY | ~2020-01-10 | XMS | Encounter Summary ---
Demographics + + + | Address | [address] | | | [place] [address] | + + + | Home Phone | | + + + | Preferred Language | Unknown | + + + | Marital Status | | + + + | Baptism Affiliation | NON | + + + [...] [place] | | | | | [address] | | + + + + + | Ronny Rene | ECON | Unknown | | + + + + + | Char Woodard | ECON | Unknown | | + + + + + Care Team Providers + +------+ + | Care Commission Clerk Name | Role | Phone | + +------+ + | Deondre Landis MD | PCP | | + +------+ + Encounter Details +--------+ + + + + | Date | Type | Department | Care Team | Description | +--------+ + + + + | 10/12/ | Abstract | [facility] | Char Castillo, | | | 2017 | | Center at [facility] [address] | MD [address] | | | | | [address] [facility] | [address] [place], [place] | | | | | for Health and | [address] | | | | | [facility] | [phone] | | | | | [place], [place] | | | | | | [address] | | | | | | [phone] | | | +--------+ + + + [...]
--- OUTSIDE RECORDS SUMMARY | ~2020-01-10 | XMS | Encounter Summary ---
Demographics + + + | Address | [address] | | | [place] [address] | + + + | Home Phone [...] [place] | | | | | [address] | | + + + + + | Ronny Rene | ECON | Unknown | | + + + + + | Char Woodard | ECON | Unknown | | + + + + + Care Team Providers + +------+ + | Care Eyedotter Name | Role | Phone | + [...] | | 2014 | | Center at [facility] [address] | [address] | Request (Omeprazole | | | | [facility] | Latesha Soliz [place], | suspension) | | | | for Health and | [place] [address] | | | | | [facility], [facility] | [phone] | | | | | [place], [place] | | | | | | [address] | | | | | | [phone] | | | +--------+ + + + [...] Cathryn Martinez MA - 04/14/2015 8:57 AM [facility] Prior Authorization [place] Started: 04/14/2015 Medication: Omeprazole suspension Insurance Company: [employer] Phone number: [phone] [place] Completed: APPROVED Approval Dates: 04/12/15-05/13/15 8 :57 AM PDTdocumented in this encounter Plan of Treatment Not on filedocumented as of this encounter Visit Diagnoses Not on filedocumented in this encounter"
--- OUTSIDE RECORDS SUMMARY | ~2020-01-10 | XMS | Encounter Summary ---
Demographics + + + | Address | [address] | | | [place] [address] | + + + | Home Phone | | + + + | Preferred Language | Unknown | + + + | Marital Status | | + + + | Mandaeism Affiliation | NON | + + + | Race | White | + + + | Ethnic Group | Not or | + + + Author + + + | Author | [facility] | + + + | Organization | [facility] | + + + | Address | Unknown | + + + | Phone | Unavailable | + + + Support + + + + + | Name | Relationship | Address | Phone | + + + + + | Selena Jimenez | ECON | [address] | | | | | [place] | | | | | [address] | | + + + + + | Ronny Rene | ECON | Unknown | | + + + + + | Char Woodard | ECON | Unknown | | + + + + + Care Team Providers + +------+ + | Care Vacuum Worker Name | Role | Phone | [...] | | Review | | | | [facility] [address] | | | | | | [address] | | | | | | [place], | | | | | | [address] [facility] | | | | | | [place] [address] | | | | | | [phone] | | | +--------+ + + + [...]
--- OUTSIDE RECORDS SUMMARY | ~2020-01-10 | XMS | Encounter Summary ---
Demographics + + + | Address | [address] | | | [place] [address] | + + + | Home Phone [...] + + + + + | Selena Jimenze | ECON | [address] | | | | | [place] | | | | | [address] | | + + + + + | Ronny Rene | ECON | Unknown | | + + + + + | Char Woodard | ECON | Unknown | | + + + + + Care Team Providers + +------+ + | Care Master Certified Rv Technician Name | Role | Phone | [...] Records | | 2016 | | [place] [address] | [address] | Review | | | | [facility] | [facility], | | | | | [facility] and | [place] [address] | | | | | [facility] [place] [address] | [phone] | | | | | [place], [place] | | | | | | [address] | | | | | | [phone] | | | +--------+ + + + [...]
--- OUTSIDE RECORDS SUMMARY | ~2020-01-10 | XMS | Encounter Summary ---
Demographics + + + | Address | [address] | | | [place] [address] | + + + | Home Phone | | + + + | Preferred Language | Unknown | + + + | Marital Status | | + + + | Synagogue Affiliation | Unknown | + + + | Race | Unknown | + + + | Ethnic Group | Unknown | + + + Author + + + | Author | [facility] | | | and [place] | + + + | Organization | [facility] | | | and [place] | + + + | Address | Unknown | + + + | Phone | Unavailable | + + + Support + + + + + | Name | Relationship | Address | Phone | + + + + + | Selena Jimenez | ECON | [id number] | | | | | [place] [address] | | + + + + + Care Team Providers + +------+ + | Care Mail Distributor Name | Role | Phone | + [...] + + | 09/18/ | Office | [facility] | Bernice Antonio, | CAD (coronary artery | | 2013 | Visit | CARDIOLOGY [address] | disease) (Primary | | | | [place], | [place], | Dx); Essential | | | | [place] [address] | [place] [address] | hypertension | | | | [phone] | [phone] | | | | | | | [...] around inside and outside his house in [place], [place]. He has no significant cardiac complaints. [...] remai ns in class I of the [employer] functional class. 2. Hypertension: A. [...] year. Electronically signed by: Bernice Antonio MD [facility] 09/18/2014 Portions of this chart may have been created with [employer] voice recognition software. Occasi onal wrong-word or [...] 2019 | Visit | | MD [address] | | | | | | [place], | | | | | | [place] [address] | | | | | | [phone] | | | | | | | [...] of unspecified type | | of vessel, [place] or graft | + + | Essential hypertension Unspecified essential hypertension | + + documented in this encounter
--- OUTSIDE RECORDS SUMMARY | ~2020-01-10 | XMS | Encounter Summary ---
Demographics + + + | Address | [address] | | | [place] [address] | + + + | Home Phone | | + + + | Preferred Language | Unknown | + + + | Marital Status | | + + + | Uatsdin Affiliation | NON | + + + | Race | White | + + + | Ethnic Group | Not or | + + + Author + + + | Author | [facility] | + + + | Organization | [facility] | + + + | Address | Unknown | + + + | Phone | Unavailable | + + + Support + + + + + | Name | Relationship | Address | Phone | + + + + + | Selena Jimenez | ECON | [address] | | | | | [place] | | | | | [address] | | + + + + + | Ronny Rene | ECON | Unknown | | + + + + + | Char Woodard | ECON | Unknown | | + + + + + Care Team Providers + +------+ + | Care Floor Runner Name | Role | Phone | + +------+ + | Deondre Landis MD | PCP | | + +------+ + Reason for Visit + + + | Reason | Comments | + + + | Surgery Concerns | | + + + Encounter Details +--------+ + + + + | Date | Type | Department | Care Team | Description | +--------+ + + + + | 02/27/ | Telephone | [facility] | Vijay Akbar MD | Surgery Concerns | | 2014 | | [place] [address] [address] | [address] | | | | | [facility] | [facility] | | | | | [facility] and | [place] [address] | | | | | [place] [address] | [phone] | | | | | [place], [place] | | | | | | [address] | | | | | | [phone] | | | +--------+ + + + [...]
--- OUTSIDE RECORDS SUMMARY | ~2020-01-10 | XMS | Encounter Summary ---
Demographics + + + | Address | [address] | | | [place] [address] | + + + | Home Phone [...] + + + | Author | [facility] | + + + | Organization | [facility] | + + + | Address | Unknown | + + + | Phone | Unavailable | + + + Support + + + + + | Name | Relationship | Address | Phone | + + + + + | Selena Meredith | ECON | [address] | | | | | [place] | | | | | [address] | | + + + + + | Ronny Rene | ECON | Unknown | | + + + + + | Char Woodard | ECON | Unknown | | + + + + + Care Team Providers + +------+ + | Care Electrician Assistant Name | Role | Phone | [...] Cohen | | | | | [facility] | Latesha [facility] | | | | | Hospital Admitting | [place] [address] | | | | | Desk Located on the | [phone] | | | | | 9th floor | | | | | | [place], [place] | | | | | | [address] | | | +--------+---------+ + + + [...] chronic 7) Knee pain, chronic 8) hx IL (myocardial infarction) 9) Hearing loss 10) Esophageal adenocarcinoma 11) Unintentional weight loss 12) Dysphagia Patient Active Problem List Diagnosis Chronic LBP Acid reflux HLD (hyperlipidemia) BP (high blood pressure) Anastomotic leak following esophagectomy GERD (gastroesophageal reflux disease) Hypertension Cheema's esophagus Back pain, chronic Knee pain, chronic hx IL (myocardial infarction) Hearing loss Esophageal adenocarcinoma Unintentional [...] Gastric Motility Qty: 180 tablet, Refills: 0 wcgiltrfloyo-fnyp-doqzmazk oral liquid 15 mL by feeding tube [...] lb 10.8 oz) (04/06/15 050) Destination: Destination: [facility] Condition on Discharge Stable Discharge POLST completed Full code Discharge Summary Completed?: Yes, 07 Apr 2015 Discharging Provider: ALE GIPSON MD Date Completed: 07 Apr 2015 Discharging Attending: Vijay Akbar MD documented in this encou nter Discharge Instructions Instructions Lizzette Krishna RN - 04/01/2015 Your nurse case therapist with [facility] Health Plan is [place]; she can be reached at . documented in this encounter Medications at Time [...] PM PDTReport called to nurse Nupur at [facility]. [phone]. Ale Conrad MD - 04/06/2015 9:01 AM [...] seen with Dr. Akbar. Ale Gipson MD [facility] Surgery R5 Pager [phone] lark, Ale Lester MD - 04/05/2015 9:29 [...] seen with Dr. Akbar. Ale Gipson MD [facility] Surgery R5 Pager [phone] Gio Ramirez MD - 04/04/2015 8:59 AM [...] once today Enoxaparin PPI Gio Lowery MD [facility], General Surgery R-1 P: [phone] Ale Gerardo MD - 04/03/2015 4:24 PM [...] air. Cough is stronger and a little atmospheric drier tender than yest erday HEENT: Neck incision intact [...] [facility] [address] [place] [address] Celso Lopez NP - 7:52 AM PDT INPATIENT ADULT PAIN SERVICE NEURAXIAL BLOCK PROGRESS NOTE 04/03/2015 Author: CELSO LONG VENKATA, POSTDOCTORAL RESEARCH ASSOCIATE POD#[id number]. Status post: Trans-hiatal esophagectomy, pyloromyotomy, J tube placement, bilateral Chest tube placement, colopexy Past Medical History Diagnosis Date GERD (gastroesophageal reflux disease) HTN (hypertension) Cheema's esophagus Knee pain, chronic Back pain, chronic IL (myocardial infarction) s/p CABG x 2 Hearing [...] most activities. Mr. Meredith [facility]. History of chronic or [...] 12.5 mg 12.5 mg feeding tube BID ncabtwafgnbo-afex-bzmqukia (CEROVITE) liquid 15 mL 15 mL feeding [...] and summary of old medical records (source: [employer]), as summarized in the body of the note. Personal review of laboratory results. CELSO PALMER, MSN, ACNP- Nurse Practitioner [facility] [address] [place] [address] Bebe Hung MD - 04/02/2015 7:22 PM [...] Dispo: acute care Bebe Baldwin MD Pager: [phone] lark, Ale Lester MD - 04/02/2015 7:41 [...] esophagus Knee pain, chronic Back pain, chronic IL (myocardial infarction) s/p CABG x 2 Hearing [...] 12.5 mg 12.5 mg feeding tube BID mfloghrqpbmq-dykg-rsuvnmsj (CEROVITE) liquid 15 mL 15 mL feeding [...] and summary of old medical records (source: [employer]), as summarized in the body of the note. Personal review of laboratory results. CELSO PALMER, MSN, ACNP- Nurse Practitioner [facility] [address] [place] [address] Bulmaro Pitt MD,MPH - 04/01/2015 6:36 PM [...] at 13:37 demonstrating no pneumothorax. etcu, Jennifer, [facility] - 04/01/2015 10:24 AM PDTFormatting of [...] CV - BPs wnl. Tachycardia improved. Hx CAD/IL - s/p CABG x 2 in 2007, [...] and preauth for [place] enoxaparin SAMANTHA GUNN [address] [facility] Mailcode: Kpv13 [place] [address] Celso Lopez NP - 8:45 AM PDT INPATIENT ADULT PAIN SERVICE NEURAXIAL BLOCK PROGRESS NOTE 04/01/2015 Author: CELSO PALMER NP POD#5. Status post: Trans-hiatal esophagectomy, pyloromyotomy, J tube placement, bilateral Chest tube placement, colopexy Past Medical History Diagnosis Date GERD (gastroesophageal reflux disease) HTN (hypertension) Cheema's esophagus Knee pain, chronic Back pain, chronic IL (myocardial infarction) s/p CABG x 2 Hearing [...] 12.5 mg 12.5 mg feeding tube BID gcvcixggdhvp-fctu-ednrduul (CEROVITE) liquid 15 mL 15 mL feeding [...] nd summary of old medical records (source: [employer]), as summarized in the body of the note. Personal review of radiological images. Personal review of laboratory results. CELSO PALMER, MSN, ACNP- Nurse Practitioner [facility] [address] [place] [address] Gio Ramirez MD - 0 03/31/2015 11:20 [...] air. Cough is stronger and a little atmospheric drier tender than yest erday HEENT: Neck incision intact [...] CV - BPs wnl. Tachycardia improved. Hx CAD/IL - s/p CABG x 2 in 2007, [...] we staff with Dr Edgard Lowery MD [facility], General Surgery ng, Celso Sutton NP - 0 03/31/2015 8:07 AM PDT INPATIENT ADULT PAIN SERVICE NEURAXIAL BLOCK PROGRESS NOTE 03/31/2015 Author: CELSO PALMER NP POD#4. Status post: Trans-hiatal esophagectomy, pyloromyotomy, J tube placement, bilatera l Chest tube placement, colopexy Past Medical History Diagnosis Date GERD (gastroesophageal reflux disease) HTN (hypertension) Cheema's esophagus Knee pain, chronic Back pain, chronic IL (myocardial infarction) s/p CABG x 2 Hearing [...] 12.5 mg 12.5 mg feeding tube BID uliexwumedxg-weca-dklbhzrb (CEROVITE) liquid 15 mL 15 mL feeding [...] and summary of old medical records (source: [employer]), as summarized in the body of the note. Personal review of radiological images. Personal review of laboratory results. CELSO PALMER, MSN, ACNP- Nurse Practitioner [facility] [address] [place] [address] Bulmaro Pitt MD,MPH - 03/30/2015 9:33 AM [...] air Cough is stronger and a little atmospheric drier tender than yesterday NGT functioning with green-brown output [...] CV - BPs wnl. Tachycardia improved. Hx CAD/IL - s/p CABG x 2 in 2007, [...] staff with Dr Edgard Hernandez MD, MPH [address] Division of Plastic & Reconstructive Surgery Pager: [phone] uMau - 03/30 8:54 AM PDT Trauma [...] 12.5 mg 12.5 mg feeding tube BID bolygowfwsvj-olgy-joqnwake (CEROVITE) liquid 15 mL 15 mL feeding [...] borderline HTN, no arrhthymias overnight. Tachycardic. Hx CAD/IL - s/p CABG x 2 in 20 [...] with Dr Edgard Hernandez MD, MPH R2 [facility] Division of Plastic & Reconstructive Surgery Pager: [phone] Justo Palm MD - 03/29/2015 8:11 AM [...] injection 5 mg 5 mg intravenous Q6H nurogtiwvcjv-rqxr-zapmvklo (CEROVITE) liquid 15 mL 15 mL feeding [...] Garcia on TSICU rounds. Mau Cisse MS4 [facility] Bulmaro Pitt MD ,MPH - 03/28/2015 [...] - borderline HTN, no arrhthymias overnight. Hx CAD/IL - s/p CABG x 2 in 2007, [...] with Dr Edgard Hernandez MD, MPH R2 [facility] Division of Plastic & Reconstructive Surgery Pager: [phone] Bob Mares MD - 03/28/2015 11:09 AM PDTTrauma / Surgical Critical Care Service - Progress Note Name: JUNAID MEREDITH Date: 03/28/2015 Time: 11:09 AM Author: BOB EDOUARD MD HPI: 75 y.o. male with history of severe GERD and Cheema's for 3 years. He was diagnosed with h igh-grade Cheema's and referred to [facility] for ablation. However, In December 2014 [...] Bob Edouard MD General Surgery, R2 Pager [phone] Dept of Surgery SICU/TICU Contact First Call [...] pulmonary toilet. Justo Garcia MD, MPH, FACS, [facility] gift officer Trauma, Surgical Critical Care, & Acute Care Surgery [facility] [phone] Ivanna Moreno MD - 03/28/2015 8:23 AM [...] MIS Fellow G[facility] Dept. of Surgery Pager [phone] documented in t his encounter Plan of [...] CHG), | e | 5:55 AM | ([facility]) | procedure are in the [...] | | + +---------+ + + | [facility] DEPARTMENT OF | | | | [...] | + + + + + | [facility] | [address] | [place] [address] | | | SERVICES, CORE | LATESHA [...] [facility] | [address] | [place] [address] | | | SERVICES, CORE | PARK [...] | + + + + + | [facility] | [address] | [place] [address] | | | SERVICES, [place] | PARK [...] | | | LABORATORY | | | AFGHAN | | | SERVICES, | | | [...] the MDRD equation recommended by the | [facility] | | National Kidney Disease Education [...] | + + + + + | [facility] | [address] | [place] [address] | | | SERVICES, CORE | LATESHA [...] (H) | 60 - 99 mg/dL | [facility] - | | | GLUCOSE, | [...] HERNANDEZ | [address] | [place], [place] | | | YG POINT OF CARE | [address] | [address] | | | TESTS | | | [...] HERNANDEZ | [address] | [place], [place] | | | YG POINT OF CARE | [address] | [address] | | | TESTS | | | [...] MARQU[facility] | [address] | [place], [place] | | | HILL, POINT OF CARE | [address] | [address] | | | TESTS | | | [...] | + + + + + | [facility] | [address] | [place] [address] | | | SERVICES, CORE | PARK [...] [facility] | [address] | [place] [address] | | | SERVICES, CORE | PARK [...] | | | LABORATORY | | | AFGHAN | | | SERVICES, | | | [...] | + + + + + | [facility] | [address] | [place] [address] | | | SERVICES, CORE | PARK [...] HERNANDEZ | [address] | [place], [place] | | | [place] | [address] | [address] | | | TESTS | | | [...] DAVID | [address] | [place], [place] | | | [place] | [facility] | [address] | | | TESTS | | | [...] (H) | 60 - 99 mg/dL | [facility] - | | | GLUCOSE, | [...] MARQUAM | [address] | [place], [place] | | | SADE [place] OF CARE | [address] | [address] | | | TESTS | | | [...] HERNANDEZ | [address] | [place], [place] | | | [place] | [facility] | [address] | | | TESTS | | | [...] | + + + + + | [facility] | [address] | [place] [address] | | | SERVICES, CORE | [address] | | | + + + + + MAGNESIUM, PLASMA (04/04/2015 5:08 AM PDT) + +-------+ + + + | Component | Value | Ref Range | Performed | Pathologist | | | | | At | Signature | + +-------+ + + + | MAGNESIUM,P | 2.0 | 1.8 - 2.5 mg/dL | [facility] | | | VANDANAMA | | | [...] | + + + + + | [facility] | [address] | [place] [address] | | | SERVICES, CORE | PARK [...] | | | LABORATORY | | | AFGHAN | | | SERVICES, | | | [...] | + + + + + | [facility] | [address] | [place] [address] | | | SERVICES, [place] | LATESHA [...] | | + +---------+ + + | [facility] DEPARTMENT OF | | | | [...] MARQUAM | [address] | [place], [place] | | | YG POINT OF CARE | [address] | [address] | | | TESTS | | | [...] DAVID | [address] | [place], [place] | | | SADE [place] OF CARE | [address] | [address] | | | TESTS | | | [...] (H) | 60 - 99 mg/dL | [facility] - | | | GLUCOSE, | [...] HERNANDEZ | [address] | [place], [place] | | | [place] | [address] | [address] | | | TESTS | | | [...] + + | Performing | Address | City/State/Inscription House Health Centercode | Phone Number | | Organization | | | | + +---------+ + + | [facility] DEPARTMENT OF | | | | [...] | | + +---------+ + + | [facility] DEPARTMENT OF | | | | [...] DAVID | [address] | [place], [place] | | | [place] | [address] | [address] | | | TESTS | | | [...] | + + + + + | [facility] | [address] | [place] [address] | | | SERVICES, CORE | LATESHA [...] [facility] | [address] | [place] [address] | | | [place] | LATESHA [...] | | | LABORATORY | | | AFGHAN | | | SERVICES, | | | [...] | + + + + + | [facility] | [address] | [place] [address] | | | SERVICES, CORE | LATESHA [...] (H) | 60 - 99 mg/dL | [facility] - | | | GLUCOSE, | [...] HERNANDEZ | [address] | [place], [place] | | | [place] | [address] | [address] | | | TESTS | | | [...] HERNANDEZ | [address] | [place], [place] | | | YG POINT OF CARE | [facility] | [address] | | | TESTS | | | [...] + | [facility] | [address] | [place] [address] | | | [place] | | | [...] MADYAM | [address] | [place], [place] | | | SADE [place] OF CARE | [address] | [address] | | | TESTS | | | [...] [facility] | [address] | [place] [address] | | | SERVICES, | [address] [...] | + + + + + | [facility] | [address] | [place] [address] | | | SERVICES, | [address] [...] | | + +---------+ + + | [facility] DEPARTMENT OF | | | | [...] MARQU[facility] | [address] | [place], [place] | | | YG POINT OF CARE | [facility] | [address] | | | TESTS | | | [...] | + + + + + | [facility] | [address] | [place] [address] | | | SERVICES, [place] | LATESHA [...] | + + + + + | [facility] | [address] | [place] [address] | | | SERVICES, CORE | PARK [...] | | | LABORATORY | | | AFGHAN | | | SERVICES, | | | [...] | + + + + + | [facility] | [address] | [place] [address] | | | SERVICES, CORE | LATESHA [...] MARQU[facility] | [address] | [place], [place] | | | SADE [place]ILL[place] OF CARE | [address] | [address] | | | TESTS | | | [...] + + + | [facility] | [address] | [place], [place] | | | YG POINT OF CARE | [address] | [address] | | | TESTS | | | [...] | | | LABORATORY | | | AFGHAN | | | SERVICES, | | | [...] | + + + + + | [facility] | [address] | [place] [address] | | | SERVICES, CORE | LATESHA [...] | | + +---------+ + + | [facility] DEPARTMENT OF | | | | [...] + + + | [facility] | [address] | [place], [place] | | | [facility] [facility] | [address] | [address] | | | TESTS | | | [...] HERNANDEZ | [address] | [place], [place] | | | [place] | [facility] | [address] | | | TESTS | | | [...] | + + + + + | [facility] | [address] | [place] [address] | | | SERVICES, CORE | [address] | | | + + + + + MAGNESIUM, PLASMA (04/01/2015 5:47 AM PDT) + +-------+ + + + | Component | Value | Ref Range | Performed | Pathologist | | | | | At | Signature | + +-------+ + + + | MAGNESIUM,P | 2.2 | 1.8 - 2.5 mg/dL | [facility] | | | LASMA | | [...] | + + + + + | [facility] | [address] | [place] [address] | | | SERVICES, CORE | PARK [...] | | | LABORATORY | | | AFGHAN | | | SERVICES, | | | [...] | + + + + + | [facility] | [address] | [place] [address] | | | SERVICES, CORE | LATESHA [...] (H) | 60 - 99 mg/dL | [facility] - | | | GLUCOSE, | | [...] HERNANDEZ | [address] | [place], [place] | | | YG POINT OF CARE | [address] | [address] | | | TESTS | | | [...] (H) | 60 - 99 mg/dL | [facility] - | | | GLUCOSE, | [...] [facility] | [address] | [place], [place] | | | YG POINT OF CARE | [address] | [address] | | | TESTS | | | [...] HERNANDEZ | [address] | [place], [place] | | | SADE RONQUILLO OF CARE | [facility] | [address] | | | TESTS | | | [...] MARQUAM | [address] | [place], [place] | | | YG POINT OF CARE | [address] | [address] | | | TESTS | | | [...] | | + +---------+ + + | [facility] DEPARTMENT OF | | | | [...] | + + + + + | [facility] | [address] | [place] [address] | | | SERVICES, CORE | LATESHA [...] [facility] | [address] | [place] [address] | | | SERVICES, [place] | LATESHA [...] | | | LABORATORY | | | AFGHAN | | | SERVICES, | | | [...] | + + + + + | [facility] | [address] | [place] [address] | | | SERVICES, CORE | LATESHA [...] DAVID | [address] | [place], [place] | | | SHI RONQUILLO | [facility] | [address] | | | TESTS | | | [...] HERNANDEZ | [address] | [place], [place] | | | [place] | [address] | [address] | | | TESTS | | | [...] | + + + + + | [facility] | [address] | [place] [address] | | | SERVICES, CORE | [address] | | | + + + + + MAGNESIUM, PLASMA (03/30/2015 4:42 AM PDT) + +-------+ + + + | Component | Value | Ref Range | Performed | Pathologist | | | | | At | Signature | + +-------+ + + + | MAGNESIUM,P | 1.8 | 1.8 - 2.5 mg/dL | [facility] | | | KINGA | | | [...] | + + + + + | [facility] | [address] [facility] [facility] | [place] [address] | | | SERVICES, CORE | LATESHA [...] | | | LABORATORY | | | AFGHAN | | | SERVICES, | | | [...] the MDRD equation recommended by the | [facility] | | National Kidney Disease Education Program. [...] | + + + + + | [facility] | [address] | [place] [address] | | | [place] | LATESHA [...] [facility] | | | DARONE | by [employer] [facility],[address] | | [address] | | | | [address], [facility],[place] | | PTH - INTFC | | | | [phone] | | | | | | [phone].[employer]. | | | | | | Omer [...] [facility] | [address] | [place], [place] | | | UNIV PTH - INTFC | | [address] | | + + + + + [...] + + + | [facility] | [address] | [place], [place] | | | YG [place] OF [facility] | [address] | [address] | | | TESTS | | | [...] MAR[facility] | [address] | [place], [place] | | | SADE RONQUILLO OF CARE | [address] | [address] | | | TESTS | | | [...] [facility] | [address] | [place] [address] | | | NELLY, [place] | PARK [...] [facility] | [address] | [place] [address] | | | SERVICES, CORE | PARK [...] [facility] | [address] | [place] [address] | | | SERVICES, CORE | PARK [...] | + + + + + | [facility] | [address] | [place] [address] | | | SERVICES, CORE | LATESHA [...] 83 | 60 - 99 mg/dL | [facility] - | | | GLUCOSE, | [...] HERNANDEZ | [address] | [place], [place] | | | SADE [place]ILL[place] OF CARE | [address] | [address] | | | TESTS | | | [...] | + + + + + | [facility] | [address] | [place] [address] | | | SERVICES, CORE | [address] | | | + + + + + MAGNESIUM, PLASMA (03/29/2015 6:38 AM PDT) + +-------+ + + + | Component | Value | Ref Range | Performed | Pathologist | | | | | At | Signature | + +-------+ + + + | MAGNESIUM,P | 2.0 | 1.8 - 2.5 mg/dL | [facility] | | | [facility] | | | LABORATORY | | | | | | NELYL, | | | | | | CORE | | + +-------+ + + + + + | Specimen | + + | Blood - Blood | + + + + + + + | Performing | Address | City/State/Zipcode | Phone Number | | Organization | | | | + + + + + | [facility] | [address] [facility] | [place] [address] | | | SERVICES, CORE | LATESHA [...] | | | LABORATORY | | | AFGHAN | | | SERVICES, | | | [...] the MDRD equation recommended by the | [facility] | | National Kidney Disease Education [...] | + + + + + | [facility] | [address] | [place] [address] | | | SERVICES, CORE | PARK [...] | | Attending Surgeon: Vijay Akbar MD Explosives Mixer Operator(s): Tito Rene MD | | MD Bulmaro [...] to our mediastinal dissection. We placed a [place] drain around | | our esophagus, and [...] of the specimen. We then passed a 28-Upper Sorbian | | chest tube from the neck [...] 03/27/2015 | | 18:54:08DT: 03/27/2015 21:17:00Job #: [id number] | + + CAPILLARY BLOOD GLUCOSE (NO [...] [facility] | [address] | [place], [place] | | | HILL, POINT OF CARE | [address] | [address] | | | TESTS | | | [...] | | + +---------+ + + | [facility] DEPARTMENT OF | | | | [...] | + + + + + | [facility] | [address] | [place] [address] | | | SERVICES, CORE | LATESHA [...] | | | LABORATORY | | | AFGHAN | | | SERVICES, | | | [...] the MDRD equation recommended by the | [facility] | | National Kidney Disease Education [...] | + + + + + | [facility] | [address] | [place] [address] | | | SERVICES, CORE | PARK [...] | + + + + + | [facility] | [address] | [place] [address] | | | SERVICES, CORE | PARK [...] DAVID | [address] | [place], [place] | | | SADE [place]ONQUILLO OF CARE | [address] | [address] | | | TESTS | | | [...] | + + + + + | [facility] | [address] | [place] [address] | | | SERVICES, CORE | PARK [...] | + + + + + | [facility] | [address] [facility] | [place] [address] | | | SERVICES, CORE | LATESHA [...] | | | LABORATORY | | | AFGHAN | | | SERVICES, | | | [...] the MDRD equation recommended by the | [facility] | | National Kidney Disease Education [...] | + + + + + | [facility] | [address] | [place] [address] | | | SERVICES, CORE | PARK [...] - [facility] | [address] | [place], [place] | | | YG POINT OF CARE | [address] | [address] | | | TESTS | | | [...] HERNANDEZ | [address] | [place], [place] | | | SADE [place] OF [facility] | [facility] | [address] | | | TESTS | | | [...] [facility] | [address] | [place], [place] | | | SADE RONQUILLO OF CARE | [address] | [address] | | | TESTS | | | [...] M[facility] | [address] | [place], [place] | | | SADE RONQUILLO OF CARE | [address] | [address] | | | TESTS | | | [...] HERNANDEZ | [address] | [place], [place] | | | YG POINT OF CARE | [address] | [address] | | | TESTS | | | [...] MARQUAM | [address] | [place], [place] | | | SADE RONQUILLO OF CARE | [address] | [address] | | | TESTS | | | [...] DAVID | [id number] | [place], [place] | | | SADE RONQUILLO OF CARE | [address] | [address] | | | TESTS | | | [...] | | | POC | | | SAED RONQUILLO | | | | | | [...] DAVID | [id number] | [place], [place] | | | SADE RONQUILLO OF CARE | [address] | [address] | | | TESTS | | | [...] - MARLINOAM | [address] | [place], [place] | | | SADE RONQUILLO OF CARE | [address] | [address] | | | TESTS | | | [...] HERNANDEZ | [address] | [place], [place] | | | SADE RONQUILLO OF [facility] | [facility] | [address] | | | TESTS | | | [...] DAVID | [id number] | [place], [place] | | | SADE RONQUILLO OF CARE | [address] | [address] | | | TESTS | | | [...] DAVID | [id number] | [place], [place] | | | SADE RONQUILLO OF [facility] | [facility] | [address] | | | TESTS | | | | + + + + + CHLORIDE, POC (03/27/2015 12:40 PM PDT) + +-------+ + + + | Component | Value | Ref Range | Performed | Pathologist | | | | | At | Signature | + +-------+ + + + | CHLORIDE, | 108 | 97 - 108 mmol/L | [facility] - | | | POC | [...] DAVID | [id number] | [place], [place] | | | YG POINT OF CARE | [address] | [address] | | | TESTS | | | [...] + + + + + | GONSALO HRENANDEZ | [address] | [place], [place] | | | SADE RONQUILLO OF [facility]IS | [facility] | [address] | | | TESTS | | | [...] MARQUAM | [address] | [place], [place] | | | SADE [place] [facility] [place] | [address] | [address] | | | TESTS | | | [...] HERNANDEZ | [address] | [place], [place] | | | SADE RONQUILLO OF CARE | [facility] | [address] | | | TESTS | | | [...] DAVID | [address] | [place], [place] | | | SADE [facility] OF [facility] | [address] | [address] | | | TESTS | | | [...] - DAVID | [address] | [place], [place] | | | SADE [facility]ON[facility] OF [facility] | [facility] | [address] | | | TESTS | | | [...] MADYAM | [address] | [place], [place] | | | SADE [place] OF [place] | [address] | [address] | | | TESTS | | | [...] HERNANDEZ | [address] | [place], [place] | | | SADE [facility] OF [facility] | [facility] | [address] | | | TESTS | | | [...] MARLINOAM | [address] | [place], [place] | | | S[facility] OF [facility] | [facility] | [address] | | | TESTS | | | [...] MARQUAM | [address] | [place], [place] | | | SADE [facility]ON[facility]O OF CARE | [facility] | [address] | | | TESTS | | | [...] | | | POC | | | SDAE RONQUILLO | | | | | | [...] HERNANDEZ | [address] | [place], [place] | | | SADE RONQUILLO OF CARE | [facility] | [address] | | | TESTS | | | [...] MARQUAM | [address] | [place] | | | SADE [facility]ONQUILL[facility] OF CARE | [facility] | [address] | | | TESTS | | | [...] HERNANDEZ | [address] | [place], [place] | | | YG POINT OF CARE | [address] | [address] | | | TESTS | | | [...] MARQUAM | [address] | [place], [place] | | | YG POINT OF CARE | [address] | [address] | | | TESTS | | | [...] DAVID | [address] | [place], [place] | | | SADE RONQUILLO OF CARE | [address] | [address] | | | TESTS | | | [...] HERNANDEZ | [address] | [place], [place] | | | SADE RONQUILLO OF CARE | [address] | [address] | | | TESTS | | | [...] MARQUAM | [address] | [place] | | | SADE [facility] OF [facility]RIS | [facility] | [address] | | | TESTS | | | [...] - MARQUAM | [address] | [place], [place] | | | YG POINT OF CARE | [address] | [address] | | | TESTS | | | [...] MARQUAM | [address] | [place] | | | SADE RONQUILLO OF [facility]RIS | [address] | [address] | | | TESTS | | | [...] + + | [facility] MARQUAM | [address] | [place], [place] | | | SADE RONQUILLO OF CARE | [facility] | [address] | | | TESTS | | | [...] MAshvin/PathologistT: | | | | | | 5:kelli [...] | | | | | | | Food Beverage Attendant | | | | | | E: [...] proximal | | | | | | [id number], | | | | | | sequential sections | | | | | | adjacent to proximal | | | | | | esophageal elwklrY88, | | | | | | hr representative | | | | | | perpendicular section of | | | | | | distal gastric | | | | | | lkfuwdN81, entire | | | | | | adipose tissue from mid | | | | | | esophagus, entire | | | | | | fatD18, distal | | | | | | esophagus, five possible | | | | | | lymph snmbtW79-44, | | | | | | distal esophagus, | | | | | | remaining fatD21, five | | | | | | possible lymph rvjovY16, | | | | | | five possible lymph | | | | | | rlihpV30, five possible | | | | | | lymph mbxvjY53, one | | | | | | possible lymph nodeD25, | | | | | | distal stomach, four | | | | | | possible lymph jwlhnD85, | | | | | | distal [...] + + + + + | [facility] | [address] | [place] [address] | | | PATHOLOGY | [address] [...]
--- OUTSIDE RECORDS SUMMARY | ~2020-01-10 | XMS | Encounter Summary ---
Demographics + + + | Address | [address] | | | [place] [address] | + + + | Home Phone [...] [place] | | | | | [address] | | + + + + + | Ronny Rene | ECON | Unknown | | + + + + + | Char Woodard | ECON | Unknown | | + + + + + Care Team Providers + +------+ + | Care Narcotics And Vice Detective Name | Role | Phone | + +------+ + | Deondre Landis MD | PCP | | + +------+ + Reason for Visit + + + | Reason | Comments | + + + | Referral To Surgery | | | - General | | + + + Encounter Details +--------+ + + + + | Date | Type | Department | Care Team | Description | +--------+ + + + + | 07/21/ | Abstract | Digestive Health | Vijay Akbar MD | Referral To Surgery | | 2015 | | Center at [facility] [address] | [address] | [facility] | | | | [facility] | [facility] | | | | | [facility] and | [place] [address] | | | | | [place] [address] | [phone] | | | | | [place], [place] | | | | | | [address] | | | | | | [phone] | | | +--------+ + + + [...]
--- OUTSIDE RECORDS SUMMARY | ~2020-01-10 | XMS | Encounter Summary ---
Demographics + + + | Address | [address] | | | [place] [address] | + + + | Home Phone [...] [place] | | | | | [address] | | + + + + + | Ronny Rene | ECON | Unknown | | + + + + + | Char Woodard | ECON | Unknown | | + + + + + Care Team Providers + +------+ + | Care Electronic Specialist Name | Role | Phone | [...] Records | | 2017 | | Center [place] [address] [address] | [address] | Received (Upper GI) | | | | [facility] | [facility] | | | | | and | [place] [address] | | | | | [place] [address] | [phone] | | | | | [place], [place] | | | | | | [address] | | | | | | [phone] | | | +--------+ + + + [...]
--- OUTSIDE RECORDS SUMMARY | ~2020-01-10 | XMS | Encounter Summary ---
Demographics + + + | Address | [address] | | | [place] [address] | + + + | Home Phone | | + + + | Preferred Language | Unknown | + + + | Marital Status | | + + + | Adventist Affiliation | Unknown | + + + | Race | Unknown | + + + | Ethnic Group | Unknown | + + + Author + + + | Author | [facility] | | | and Tobyana | + + + | Organization | [facility] | | | and [...] | | | | | [place] [address] | | + + + + + Care Team Providers + +------+ + | Care Correctional Program Specialist Name | Role | Phone | [...] + + | 09/18/ | Office | [facility] | [place], | Coronary artery | | 2014 | Visit | CARDIOLOGY [address] [facility] | disease involving | | | | [place], | [place], | [place] coronary | | | | [place] [address] | [place] [address] | artery of [place] | | | | [phone] | [phone] | heart without angina | | | [...] that time, patient underwent a esophagectomy at [facility] o n 03/27/15. He was told [...] kg (166 lb 12.8 oz) | B [place] 25.37 kg/m2 Physical Exam Constitutional: He appears [...] remai ns in class I of the [place] [employer] functional class. 2. Hypertension: A. Today his blood pressure is mildly elevated 3. Hyperlipidemia: A. He is on simvastatin 80 mg a day. His lipid profile from 07/01/14 looks oscar astic. 4. Erectile dysfunction A. Today, patient mentioned that he has a difficulty to maintain his erection. 5. Esophageal cancer A. Patient underwent a esophagectomy at [facility] on 03/27/15. He was told during the 6 month fo llow-up that he is cancer free. PLAN: 1. Check blood pressure x 2 weeks. 2. Follow-up in one year. Electronically signed by: Paulo Antonio MD [facility] 09/18/2015 Portions of this chart may have been created with The [employer] voice recognition software. Occasi onal wrong-word or [...] | | | | | | [place] [address] | | | | | | [phone] | | | | | | | [...] the | | | | PST | [place] coronary | results section. 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
--- OUTSIDE RECORDS SUMMARY | ~2020-01-10 | XMS | Encounter Summary ---
Demographics + + + | Address | [address] | | | [place] [address] | + + + | Home Phone | | + + + | Preferred Language | Unknown | + + + | Marital Status | | + + + | Yazidism Affiliation | NON | + + + | Race | White | + + + | Ethnic Group | Not or | + + + Author + + + | Author | [facility] | + + + | Organization | [facility] | + + + | Address | Unknown | + + + | Phone | Unavailable | + + + Support + + + + + | Name | Relationship | Address | Phone | + + + + + | Selena Jimenez | ECON | [address] | | | | | [place] | | | | | [address] | | + + + + + | Rnony Rene | ECON | Unknown | | + + + + + | Char Woodard | ECON | Unknown | | + + + + + Care Team Providers + +------+ + | Care Supervisor Smoke Control Name | Role | Phone | + [...] | | 2015 | | Center at [facility] [address] | [address] | Received (CT chest, | | | | [facility] | [facility], | abdomen and pelvis) | | | | for Health and | [place] [address] | | | | | Healing, [facility] [address] | [phone] | | | | | [place], [place] | | | | | | [address] | | | | | | [phone] | | | +--------+ + + + [...]
--- OUTSIDE RECORDS SUMMARY | ~2020-01-10 | XMS | Encounter Summary ---
Demographics + + + | Address | [address] | | | [place] [address] | + + + | Home Phone | | + + + | Preferred Language | Unknown | + + + | Marital Status | | + + + | Jewish Affiliation | NON | + + + | Race | White | + + + | Ethnic Group | Not or | + + + Author + + + | Author | [facility] | + + + | Organization | [facility] | + + + | Address | Unknown | + + + | Phone | Unavailable | + + + Support + + + + + | Name | Relationship | Address | Phone | + + + + + | Selena Jimenez | ECON | [address] | | | | | [place] | | | | | [address] | | + + + + + | Ronny Rene | ECON | Unknown | | + + + + + | Char Woodard | ECON | Unknown | | + + + + + Care Team Providers + +------+ + | Care Sales Floor Team Leader Name | Role | Phone | + +------+ + | Deondre Landis MD | PCP | | + +------+ + Reason for Visit +--------+ + | Reason | Comments | +--------+ + | Other | | +--------+ + Encounter Details +--------+ + + + + | Date | Type | Department | Care Team | Description | +--------+ + + + + | 01/06/ | Telephone | Digestive Health | Rubin Lorenzo | | | 2014 | | Center at [facility] [address] | MD [address] [facility] | | | | | [facility] | [facility] | | | | | [facility] and | [place], [place] | | | | | [place] [address] | [address] | | | | | [place], [place] | [phone] | | | | | [address] | | | | | | [phone] | | | +--------+ + + + [...]
--- OUTSIDE RECORDS SUMMARY | ~2020-01-10 | XMS | Encounter Summary ---
Demographics + + + | Address | [address] | | | [place] [address] | + + + | Home Phone | | + + + | Preferred Language | Unknown | + + + | Marital Status | | + + + | Christian Affiliation | Unknown | + + + | Race | Unknown | + + + | Ethnic Group | Unknown | + + + Author + + + | Author | [facility] | | | and Tobyana | + + + | Organization | [facility] | | | and [place] | + + + | Address | Unknown | + + + | Phone | Unavailable | + + + Support + + + + + | Name | Relationship | Address | Phone | + + + + + | Selena Jimenez | ECON | [id number] | | | | | [place] [address] | | + + + + + Care Team Providers + +------+ + | Care Nut Dehydrator Operator Name | Role | Phone | [...] Lumbar | Love [place], | [address] | | | | | radiculopath | COMMUNITY SERVICE REPRESENTATIVE | [place], | | | | | y S/P | | [place] | | | | | lumbar | | [address] | | | | | spinal | | Phone: | | | | | fusion DDD | | [phone] | | | | | (degenerativ | | Fax: | | | | | e disc | | [phone] | | | | | disease), | [...] | Comments | + + + | Diagnostic Order | | + + + Encounter Details +--------+ + + + + | Date | Type | Department | Care Team | Description | +--------+ + + + + | 06/06/ | Telephone | [facility] | [place], | Diagnostic Order | | 2013 | | PHYSIATRY [address] | COMMUNITY SERVICE REPRESENTATIVE | | | | | [address] | | | | | | [place] | | | | | | [address] | | | | | | [phone] | | | +--------+ + + + [...] [place], | | | | | | [place] [address] | | | | | | [phone] | | | | | | | | +--------+---------+ + + + documented as of this encounter Results CT Myelography Lumbar Spine [...] areas of narrowing. Dictated and Signed by: Aimee Helms MD Electronically signed: 06/28/2014 5:45 PM | | [...] Chronic | | retrolisthesis of L4 on Y6qimfvorkd 1.4 cm. Bridging osteophyte across this level [...] + | [facility] | | | [phone] | + +---------+ + + | [facility] | | | [phone] | + +---------+ + + FL Injection for CT Myelogram (06/28/2014 12:06 PM PDT) + + | Specimen | + + | | + + + + + | Narrative | Performed At | + + + | FLUOROSCOPICALLY GUIDED LUMBAR MYELOGRAM INJECTION:06/28/2014 12:01 | [facility] | | PM CLINICAL HISTORY:Lumbar radiculopathy/neurogenic claudication. | LAB | | History of lumbar fusion. Multiple prior surgeries. | | | PROCEDURE: The procedure of lumbar puncture for myelogram with | | | associated risks is discussed with the patient. Verbal and written | | | consent is then obtained to proceed. A timeout was performed | | | confirming the patient's identity and planned procedure. Fluoroscopy | | | was then utilized to identify an entry point to the thecal sac at L4. | | | Skin is marked in this location and then prepped in sterile fashion. | | | Lidocaine 1% was then instilled and the skin and along the proposed | | | path of entry. Under direct fluoroscopic observation, an attempt was | | | then made to advance a 22-gauge spinal needle into the thecal sac. | | | This was unsuccessful because of bony obstructions. Attention was | | | then turned to the L3 level which was also within the sterile field. | | | Further lidocaine 1% was instilled. Under direct fluoroscopic | | | observation a 22-gauge spinal needle was advanced with difficulty, | | | but ultimate success into the thecal sac. Clear CSF was obtained. | | | Sterile Isovue-M 200,8 cc was then instilled, again under | | | fluoroscopic observation. Contrast dissipated quickly, with no | | | contained opacification developing in the thecal sac. No ectopic | | | collections of contrast are seen. Nevertheless, needle was then | | | withdrawn and the procedure was terminated. Patient was then taken to | | | CT for further imaging. Despite difficulties, no complications or | | | patient discomfort occurred. IMPRESSION - Difficult | | | fluoroscopically guided lumbar myelogram injection. No contrast could | | | be seen collecting in the thecal sac during injection, but no | | | ectopic contrast distribution is seen either. Dictated and Signed | | | by: Nasim Deleon MD Electronically signed: 06/28/2014 5:12 PM | | + + + + + | Procedure Note | + + | Loi, Rad Results In - 06/28/2014 5:15 PM PDT FLUOROSCOPICALLY GUIDED LUMBAR | | MYELOGRAM INJECTION:06/28/2014 12:01 PMCLINICAL HISTORY:Lumbar radiculopathy/neurogenic | | claudication. History oflumbar fusion. Multiple prior surgeries.PROCEDURE: The | | procedure of lumbar puncture for myelogram with associated risksis discussed with the | | patient. Verbal and written consent is then obtained toproceed. A timeout was performed | | confirming the patient's identity and plannedprocedure. Fluoroscopy was then utilized to | | identify an entry point to thethecal sac at L4. Skin is marked in this location and | | then prepped in sterilefashion. Lidocaine 1% was then instilled and the skin and along | | the proposedpath of entry. Under direct fluoroscopic observation, an attempt was then | | madeto advance a 22-gauge spinal needle into the thecal sac. This was | | unsuccessfulbecause of bony obstructions.Attention was then turned to the L3 level which | | was also within the sterilefield. Further lidocaine 1% was instilled. Under direct | | fluoroscopic observationa 22-gauge spinal needle was advanced with difficulty, but | | ultimate success intothe thecal sac. Clear CSF was obtained. Sterile Isovue-M 200,8 cc | | was theninstilled, again under fluoroscopic observation. Contrast dissipated | | quickly,with no contained opacification developing in the thecal sac. No | | ectopiccollections of contrast are seen.Nevertheless, needle was then withdrawn and the | | procedure was terminated.Patient was then taken to CT for further imaging.Despite | | difficulties, no complications or patient discomfort occurred.IMPRESSION - Difficult | | fluoroscopically guided lumbar myelogram injection. Nocontrast could be seen collecting | | in the thecal sac during injection, but noectopic contrast distribution is seen | | either.Dictated and Signed by: Nasim Deleon MD Electronically signed: 06/28/2014 5:12 | | PM | |Nevertheless, needle was then withdrawn and the procedure was terminated. | |Patient was then taken to CT for further imaging. | | | |Despite difficulties, no complications or patient discomfort occurred. | | | |IMPRESSION - Difficult fluoroscopically guided lumbar myelogram injection. No | |contrast could be seen collecting in the thecal sac during injection, but no | |ectopic contrast distribution is seen either. | | | |Dictated and Signed by: Nasim Deleon MD | | Electronically signed: 06/28/2014 5:12 PM | + + + +---------+ + + | Performing | Address | City/State/Zipcode | Phone Number | | Organization | | | | + +---------+ + + | [facility] | | | [phone] | + +---------+ + + | [facility] | | | [phone] | + +---------+ + + documented in this encounter Visit Diagnoses + + | Diagnosis | + + | Lumbar radiculopathy/neurogenic claudication - Primary Thoracic or lumbosacral | | neuritis or radiculitis, unspecified | + + | S/P lumbar spinal fusion Arthrodesis status | + + | DDD (degenerative disc disease), lumbar Degeneration of lumbar or lumbosacral | | intervertebral disc | + + | Chronic low back pain Lumbago | + + documented in this encounter"
--- OUTSIDE RECORDS SUMMARY | ~2020-01-10 | XMS | Encounter Summary ---
Demographics + + + | Address | [address] | | | [place] [address] | + + + | Home Phone | | + + + | Preferred Language | Unknown | + + + | Marital Status | | + + + | Yarsanism Affiliation | NON | + + + [...] [place] | | | | | [address] | | + + + + + | Ronny Rene | ECON | Unknown | | + + + + + | Char Woodard | ECON | Unknown | | + + + + + Care Team Providers + +------+ + | Care Entry Manager Name | Role | Phone | + +------+ + | Deondre Landis MD | PCP | | + +------+ + Reason for Visit + + + | Reason | Comments | + + + | Post Op Concern | | + + + Encounter Details +--------+ + + + + | Date | Type | Department | Care Team | Description | +--------+ + + + + | 04/30/ | Telephone | Digestive Health | Vijay Akbar MD | Post Op Concern | | 2014 | | Center [place] [address] [address] | [address] | | | | | [facility] | [facility] | | | | | [facility] and | [place] [address] | | | | | [place] [address] | [phone] | | | | | [place], [place] | | | | | | [address] | | | | | | [phone] | | | +--------+ + + + [...]
--- OUTSIDE RECORDS SUMMARY | ~2020-01-10 | XMS | Encounter Summary ---
Demographics + + + | Address | [address] | | | [place] [address] | + + + | Home Phone [...] [place] | | | | | [address] | | + + + + + | Ronny Rene | ECON | Unknown | | + + + + + | Char Woodard | ECON | Unknown | | + + + + + Care Team Providers + +------+ + | Care Account Financial Manager Name | Role | Phone | [...] | | | | Center Admitting | [place], [place] | [facility] | | | | Desk Located on the | [address] | FRACTURE | | | | 4th floor [address] | [phone] | | | | | Page [place], | | | | | | [place] [address] | | | +--------+---------+ + + + [...] EXTREMITY, Manolo Gallego MD PGY-3 Orthopedic Pager: #[phone] [facility] Department of Orthopaedics & Rehabilitation [address] [place] [address] Mail Code: [address] [place] [address] Nurys Lan RN - 01/31/2019 1:31 AM PDT01:00 Pt's HR reaching low 120s on the pulse oximeter. Pt den ies pain, SOB, or chest pain. BP 104/58. KRYSTA Martinez notified. 500 LR bolus ordered and giv en. FLUX TUBE ATTENDANT saw pt at bedside. Will continue to monitor and reassess HR. 01:31 Pt voiding hourly. Bladder scan read 315mL. Bladder non-distended, pt denies discomfo rt. KRYSTA Martinez notified. Continuing to monitor at this time. Oma Banegas AGACNP - 2019 10:10 PM PDT Overnight Progress Note Author: Oma Martinez, [facility]- Attending Physician: Glenn Siegel MD I assumed overnight care of this patient, reviewed their Primary Surgical Team's sign out r eport, and physically assessed the patient. Please see the primary providers note for com plete elements of the surgical report and post operative plan. SUBJECTIVE Brief HPI: Junaid Jimenez is a 79 y.o. male with a PMHx significant for CAD, MD, HLD, GERD, Chronic back pain, severe esophageal [...] calm, NAD. Neuro: AAOX4, responses appropriate. HEENT: ILIAMNA. Respiratory: Normal WOB, CTAB anteriorly, on RA. [...] to participate in this patient's care. [facility] General Surgery [facility] Outpatient Care Unit Pager# [phone] 10:11 PM 2019 documented i n this [...] | | Attending Surgeon: Glenn Siegel M.D. Cushion Filler(s): Manolo | | | MD Lashonda Preoperative [...] | at 6 weeks. Glenn Siegel MD, [facility](C) Marketing Program Coordinator | | | Department of Orthopaedics and Rehabilitation [facility] | | | [facility] | | + + + CAPILLARY BLOOD [...] + + | [facility] | [address] [facility] | [place] [address] | | | OF CARE TESTS | [...] | + + + + + | [facility] | [address] | [place] [address] | | | SERVICES, [facility] | | | | | HEALTH + [...] | + + + + + | [facility] | [address] | [place] [address] | | | [facility] | | | | | HEALTH [...]
--- OUTSIDE RECORDS SUMMARY | ~2020-01-10 | XMS | Encounter Summary ---
Demographics + + + | Address | [address] | | | [place] [address] | + + + | Home Phone [...] [place] | | | | | [address] | | + + + + + | Ronny Rene | ECON | Unknown | | + + + + + | Char Woodard | ECON | Unknown | | + + + + + Care Team Providers + +------+ + | Care Motor Driver Name | Role | Phone | + [...] | | 2014 | | Center at [facility] [address] | [address] [facility] | | | | | [facility] | [facility] | | | | | [facility] and | [place], [place] | | | | | [place] [address] | [address] | | | | | [place], [place] | [phone] | | | | | [address] | | | | | | [phone] | | | +--------+ + + + [...]
--- OUTSIDE RECORDS SUMMARY | ~2020-01-10 | XMS | Encounter Summary ---
Demographics + + + | Address | [address] | | | [place] [address] | + + + | Home Phone | | + + + | Preferred Language | Unknown | + + + | Marital Status | | + + + | Jain Affiliation | NON | + + + [...] [place] | | | | | [address] | | + + + + + | Ronny Rene | ECON | Unknown | | + + + + + | Char Woodard | ECON | Unknown | | + + + + + Care Team Providers + +------+ + | Care Radiopharmacist Name | Role | Phone | + [...] | | | | | | | [facility] | | | | | | | Health and | | | | | | | Healing, | | | | | | | [address] | | | | | | | [place], [place] | | | | | | | [address] | | | | | | | Phone: | | | | | | | [phone] | | | | | | | Fax: | | | | | | | [phone] | +--------+--------+ + + + + Encounter Details +--------+---------+ + + + | Date | Type | Department | Care Team | Description | +--------+---------+ + + + | 01/22/ | Office | Digestive Health | Vijay Akbar MD | History of | | 2016 | Visit | Center at [facility] [address] | [address] | esophageal cancer | | | | [facility] | Latesha Soliz [place], | (Primary Dx) | | | | for Health and | [place] [address] | | | | | [place] [address] | [phone] | | | | | [place], [place] | | | | | | [address] | | | | | | [phone] | | | +--------+---------+ + + + [...] 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 Cyndy Hutton MD Red Surgery, R1 [id number] STAFF: I personally interviewed the patient, performed [...]
--- OUTSIDE RECORDS SUMMARY | ~2020-01-10 | XMS | Encounter Summary ---
Demographics + + + | Address | [address] | | | [place] [address] | + + + | Home Phone [...] [place] | | | | | [address] | | + + + + + | Ronny Rene | ECON | Unknown | + | + + + + + | Char Woodard | ECON | Unknown | | + + + + + Care Team Providers + +------+ + | Care Tele Tech Name | Role | Phone | + [...] | | | | | | [place], [place] | | | | | | [address] | | | | | | [phone] | | | +--------+ + + + [...]
--- OUTSIDE RECORDS SUMMARY | ~2020-01-10 | XMS | Encounter Summary ---
Demographics + + + | Address | [address] | | | [place] [address] | + + + | Home Phone | | + + + | Preferred Language | Unknown | + + + | Marital Status | | + + + | Confucianist Affiliation | NON | + + + [...] [place] | | | | | [address] | | + + + + + | Ronny Rene | ECON | Unknown | | + + + + + | Char Woodard | ECON | Unknown | | + + + + + Care Team Providers + +------+ + | Care Health Program Specialist Name | Role | Phone [...] + + + + | 01/31/ | Hospital | [place] [address] | Rubin Lorenzo | | | 2014 | Encounter | [address] | MD Doris [address] [facility] | | | | | [facility] | [facility] | | | | | Dina Gupta | [place], [place] | | | | | (MNP/[facility]) | [address] | | | | | [place], [place] | [phone] | | | | | [address] | | | | | | [phone] | | | +--------+ + + + [...] + + + | Blood Pressure | 106/50 | 01/31/2015 10:45 AM | | | | | PDT | | + + + + + | Pulse | 54 | 01/31/2015 10:45 AM | | | | | PDT | | + + + + + | Temperature | 36.4 C (97.5 F) | 01/31/2015 10:20 AM | | | | | PDT | | + + + + + | Respiratory Rate | 14 | 01/31/2015 10:45 AM | | | | | PDT | | + + + + + | Oxygen Saturation | 97% | 01/31/2015 10:45 AM | | | | | PDT | | + + + + + | Inhaled Oxygen | - | - | | | Concentration | | | | + + + + + | Weight | 79.4 kg (175 lb) | 01/31/2015 7:45 AM | | | | | PDT | | + + + + + | Height | 177.8 cm (5' 10") | 01/31/2015 7:45 AM | | | | | PDT | | + + + + + | Body Mass Index | 25.11 | 01/31/2015 7:45 AM | | | | | PDT | | + + + + + documented in this encounter Discharge Instructions Instructions Radha Wilhelm RN - 01/31/2015 Home Care Instructions after EGD (Upper Endoscopy) & Endoscopic Ultrasound You may resume your normal diet and medications unless told otherwise. Medications The medications you received for your [...] Tuesday 8:00- 4:30 Endoscopy Toll Free ext [phone] or After business hours, or on weekends and holiday Hospital OperatorToll Free [phone] and have the GI doctor precision thread grinder operator paged. The provider who performed your procedure is: Dr. Downey and Dr. Lorenzo Results of your exam: Ultrasound of bronchial and esophagus performed. Measurements taken. Biopsies were taken, they will be sent to the laboratory. You and your referring doctor will get a letter with biopsy results in approximately 2 week s. Follow up Appointments with: With referring provider Your primary care provider or Referring provider will receive copies of the procedure repo rt and all the pathology reports with recommendations for treatment if needed. documented in this encounter Progress Notes Rubin Lorenzo MD - 01/31/2015 9:41 AM PDTFormatting of this note might be differen t from the original. Pre Sedation Note Subjective: Junaid Jimenez is a 75 y.o. male presents today for EGD/EUS No significant change to health since initial assessment as outlined in EPIC and referral n otes unless noted here. PARQ held and patient agreeable to proceeding with above procedure. Consent obtained and is in chart. Objective: Vital Signs: BP 133/57 | Pulse 70 | Temp 36.4 C (97.5 F) | RR 20 | Ht 1.778 m (5' 10") | Wt 79.379 kg (175 lb) | SpO2 96% | BMI 25.11 kg/(m^2) Neuro: patient is oriented X3. Mental status clear and intact Neck Neck supple. No adenopathy Respiratory Lungs clear to auscultation bilaterally with good air exchange Cardiac Regular Rate and Rhythm. Abdomen: soft, normal active bowel sounds, nontender, no masses, no organomegaly Medications: Meds reviewed Allergies: Allergies as of 01/27/2015 (No Known Allergies) See procedure note 01/31/2015 documented in th is encounter Plan of Treatment + +------+--------+ + + | Name | Type | Priori | Associated Diagnoses | Order Schedule | | | | ty | | | + +------+--------+ + + | NON WATER MAIN INSTALLER HELPER CYTOLOGY | Lab | Routin | | For orders to be | | | | e | | released in Bronch | | | | | | lab for 1 | | | | | | Occurrences starting | | | | | | 01/31/2015 | + +------+--------+ + + documented as of this encounter Procedures + +--------+ + + + | Procedure Name | Priori | Date/Time | Associated Diagnosis | Comments | | | ty | | | | + +--------+ + + + | BRONCHOSCOPY WITH | Routin | 10/23/2015 | | Results for this | | ENDOBRONCHIAL | e | 2:15 PM | | procedure are in the | | ULTRASOUND | | PST | | results section. | + +--------+ + + + | GI ENDO ULTRASOUND | | 01/31/2015 | | Results for this | | AND IC | | 12:00 AM | | procedure are in the | | | | PDT | | results section. | + +--------+ + + + | NON WATER MAIN INSTALLER HELPER CYTOLOGY | Routin | 01/31/2015 | | Results for this | | | e | | | procedure are in the | | | | | | results section. | + +--------+ + + + documented in this encounter Results BRONCHOSCOPY WITH ENDOBRONCHIAL ULTRASOUND (10/23/2015 2:15 PM PST)GI ENDO ULTRASOUND AND IC (01/31/2015 12:00 AM PDT) + + + | Narrative | Performed At | + + + | | | + + + NON WATER MAIN INSTALLER HELPER CYTOLOGY (01/31/2015) + + + + + + | Component | Value | Ref Range | Performed | Pathologist | | | | | At | Signature | + + + + + + | NON-WATER MAIN INSTALLER HELPER | SOURCE OF SPECIMEN:A | | [facility] | | | CYTOLOGY | Subcarinal Lymph Node | | DEPARTMENT | | | | FNA, done by clinician | | OF | | | | withadequacy | | PATHOLOGY | | | | assessmentGROSS | | | | | | DESCRIPTION:CLINICAL | | | | | | HISTORY: Clinical | | | | | | History:75 year old male | | | | | | with 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 Final | | | | | | Cytologic | | | | | | Diagnosis:Lymph node, | | | | | | subcarinal, | | | | | | endobronchial ultrasound | | | | | | guided fine | | | | | | needleaspiration:- | | | | | | Negative for | | | | | | malignancy (see comment) | | | | | | Immediate | | | | | | Impression:negative for | | | | | | malignancy (mp) | | | | | | Case Reviewed by:Kavon | | | | | | Veyliotti / | | | | | | Home Service Technician | | | | | | (ASCP)Ki Jacome, | | | | | | M.D./Cytopathology | | | | | | Elroy Mahan, | | | | | | M.D., | | | | | | Ph.D./Cytopathologist | | | | | | Comment:Cytologic | | | | | | preparations show benign | | | | | | respiratory epithelial | | | | | | cells, mixedinflammatory | | | | | | cells and sparse lymph | | | | | | node elements in the | | | | | | background. Thesample | | | | | | may not be | | | | | | appeals representative of the | | | | | | lesion in question, | | | | | | clinicalcorrelation is | | | | | | recommended. My | | | | | | [...] Diagnostician: | | | | | | Shiv Mahan M.D., | | | | | | Ph.DPathologistElectroni | | | | | | bridget Signed 02/03/2015 | | | | | | 4:50PM | | | | + + + + + + + + | Specimen | + + | | + + + + + + + | Performing | Address | City/State/Zipcode | Phone Number | | Organization | | | | + + + + + | [facility] | [address] | [place] [address] | | | PATHOLOGY | [address] | | | + + + + + documented in this encounter Visit Diagnoses Not on filedocumented in this encounter Administered Medications + +---------+ +--------+------+------+ | Medication Order | MAR | Action | Dose | Rate | Site | | | Action | Date | | | | + +---------+ +--------+------+------+ | fentaNYL citrate (PF) | New Bag | 02/01/20 | 75 mcg | | | | (SUBLIMAZE) injection 25-300 mcg | | 15 10:09 | | | | | 25-300 mcg, intravenous, HSD | | AM PDT | | | | | PRN, Starting Tue01/31/15 at | | | | | | | 0754, Until Tue01/31/15 at 1751, | | | | | | | sedation/analgesia | | | | | | + +---------+ +--------+------+------+ + +---+ | | | + +---+ | fentaNYL citrate (PF) | | | (SUBLIMAZE) injection 1 dose, | | | Starting Tue01/31/15 at 0740, | | | Until Tue01/31/15 at 1009 | | + +---+ | | | + +---+ + +---------+ +------+---+---+ | midazolam (PF) (VERSED) | New Bag | 02/01/20 | 3 mg | | | | injection 1-10 mg 1-10 mg, | | 15 10:09 | | | | | intravenous, HSD PRN, Starting | | AM PDT | | | | | Tue01/31/15 at 0754, Until Tue | | | | | | | 01/31/15 at 1751, sedation | | | | | | + +---------+ +------+---+---+ + +---+ | | | + +---+ | midazolam (PF) (VERSED) | | | injection 1 dose, Starting Fri | | | 01/31/15 at 0740, Until Fri | | | 01/31/15 at 1009 | | + +---+ | | | + +---+ + +---------+ +-------+-------+---+ | NaCl 0.9 % IV 100 mL/hr, | New Bag | 02/01/20 | 100 | 100 | | | intravenous, PROCEDURE | | 15 10:10 | mL/hr | mL/hr | | | CONTINUOUS, Starting 01/31/15 | | AM PDT | | | | | at 0845, Until 01/31/15 at | | | | | | | 1751 | | | | | | + +---------+ +-------+-------+---+ +---+---+ | | | +---+---+ documented in this encounter
--- OUTSIDE RECORDS SUMMARY | ~2020-01-10 | XMS | Encounter Summary ---
Demographics + + + | Address | [address] | | | [place] [address] | + + + | Home Phone | | + + + | Preferred Language | Unknown | + + + | Marital Status | | + + + | Denominational Affiliation | NON | + + + [...] [place] | | | | | [address] | | + + + + + | Ronny Rene | ECON | Unknown | | + + + + + | Char Woodard | ECON | Unknown | | + + + + + Care Team Providers + +------+ + | Care Wheel Presser Name | Role | Phone | + +------+ + | Deondre Landis MD | PCP | | + +------+ + Encounter Details +--------+ + + + + | Date | Type | Department | Care Team | Description | +--------+ + + + + | 01/10/ | Document-Sc | UNKNOWN DEPARTMENT | Unknown . | | | 2015 | anned | [address] | | | | | | [address] | | | | | | [place], [place] | | | | | | [address] | | | +--------+ + + + [...] | + +--------+ + + + | RADIOLOGY | | 01/10/2015 | | Results for this | | | | 12:00 AM | | procedure are in the | | | | PDT | | results section. | + +--------+ + + + documented in this encounter Results RADIOLOGY (01/10/2015 12:00 AM PDT) + + + | Narrative | Performed At | + + + | | | + + + documented in this encounter Visit Diagnoses Not on filedocumented in this encounter"
--- OUTSIDE RECORDS SUMMARY | ~2020-01-10 | XMS | Encounter Summary ---
Demographics + + + | Address | [address] | | | [place] [address] | + + + | Home Phone [...] + + + | Author | [facility] | + + + | Organization | [facility] | + + + | Address | Unknown | + + + | Phone | Unavailable | + + + Support + + + + + | Name | Relationship | Address | Phone | + + + + + | Selena Jimenez | ECON | [address] | | | | | [place] | | | | | [address] | | + + + + + | Ronny Rene | ECON | Unknown | | + + + + + | Char Woodard | ECON | Unknown | | + + + + + Care Team Providers + +------+ + | Care Kitchen Cleaner Name | Role | Phone | + +------+ + | Deondre Landis MD | PCP | | + +------+ + Reason for Visit + + + | Reason | Comments | + + + | Change of medication | | + + + Encounter Details +--------+ + + + + | Date | Type | Department | Care Team | Description | +--------+ + + + + | 10/24/ | Telephone | Digestive Health | Vijay Akbar MD | Change of medication | | 2016 | | Center at [facility] [address] | [address] | | | | | [facility] | [facility] | | | | | [facility] and | [place] [address] | | | | | [facility] [place] [address] | [phone] | | | | | [place], [place] | | | | | | [address] | | | | | | [phone] | | | +--------+ + + + [...]
--- OUTSIDE RECORDS SUMMARY | ~2020-01-10 | XMS | Encounter Summary ---
Demographics + + + | Address | [address] | | | [place] [address] | + + + | Home Phone [...] [place] | | | | | [address] | | + + + + + | Ronny Rene | ECON | Unknown | | + + + + + | Char Woodard | ECON | Unknown | | + + + + + Care Team Providers + +------+ + | Care Chemical Reclamation Equipment Operator Name | Role | Phone | + +------+ + | Deondre Landis MD | PCP | | + +------+ + Encounter Details +--------+ + + + + | Date | Type | Department | Care Team | Description | +--------+ + + + + | 09/14/ | Abstract | Digestive Health | Vijay Akbar MD | | | 2017 | | [place] [address] [address] | [address] | | | | | [facility] | [address] [place], | | | | | [facility] and | [place] [address] | | | | | [place] [address] | [phone] | | | | | [place], [place] | | | | | | [address] | | | | | | [phone] | | | +--------+ + + + [...]
--- OUTSIDE RECORDS SUMMARY | ~2020-01-10 | XMS | Encounter Summary ---
Demographics + + + | Address | [address] | | | [place] [address] | + + + | Home Phone [...] [place] | | | | | [address] | | + + + + + | Ronny Rene | ECON | Unknown | + | + + + + + | Char Woodard | ECON | Unknown | | + + + + + Care Team Providers + +------+ + | Care Sawmill Or Timber Yard Worker Name | Role | Phone | + +------+ + | David Ferrera MD | PCP | | + +------+ + Encounter Details +--------+ + + + + | Date | Type | Department | Care Team | Description | +--------+ + + + + | 09/16/ | Procedure | Radiology/Imaging | | | | 2016 | Pass | Lab at [facility] [address] | | | | | | [facility] | | | | | | for Health and | | | | | | Healing, [address], | | | | | | 3rd Floor | | | | | | [place], [place] | | | | | | [address] | | | | | | [phone] | | | +--------+ + + + [...]
--- OUTSIDE RECORDS SUMMARY | ~2020-01-10 | XMS | Encounter Summary ---
Demographics + + + | Address | [address] | | | [place] [address] | + + + | Home Phone [...] [place] | | | | | [address] | | + + + + + | Ronny Rene | ECON | Unknown | | + + + + + | Char Woodard | ECON | Unknown | | + + + + + Care Team Providers + +------+ + | Care Airline Pilot Flight Instructor Name | Role | Phone | [...] | +--------+ + + + + | 01/26/ | Telephone | Digestive Health | Vijay Akbar MD | Refill Request | | 2015 | | Center at [facility] [address] | [address] | | | | | [facility] | [facility] | | | | | [facility] and | [place] [address] | | | | | [place] [address] | [phone] | | | | | [place], [place] | | | | | | [address] | | | | | | [phone] | | | +--------+ + + + [...]
--- OUTSIDE RECORDS SUMMARY | ~2020-01-10 | XMS | Encounter Summary ---
Demographics + + + | Address | [address] | | | [place] [address] | + + + | Home Phone [...] [place] | | | | | [address] | | + + + + + | Ronny Rene | ECON | Unknown | | + + + + + | Char Woodard | ECON | Unknown | | + + + + + Care Team Providers + +------+ + | Care Dye Blender Name | Role | Phone | + [...] [address] | | | | | | [place], [place] | | | | | | [address] | | | +--------+ + + + [...]
--- OUTSIDE RECORDS SUMMARY | ~2020-01-10 | XMS | Encounter Summary ---
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
--- OUTSIDE RECORDS SUMMARY | ~2020-01-10 | XMS | Encounter Summary ---
Demographics + + + | Address | [address] | | | [place] [address] | + + + | Home Phone | | + + + | Preferred Language | Unknown | + + + | Marital Status | | + + + | Christian Affiliation | Unknown | + + + | Race | Unknown | + + + | Ethnic Group | Unknown | + + + Author + + + | Author | [facility] | | | and [place] | + + + | Organization | [facility] [...] | | | | | [place] [address] | | + + + + + Care Team Providers + +------+ + | Care Clinical Writer Name | Role | Phone | + [...] + | 11/01/ | Telephone | [facility] | Leonorsiaisabella Sialeonor, | Lab Order (Pt due | | 2019 | | CARDIOLOGY [address] | for labs prior to | | | | [place], | [place], | appt. ) | | | | [place] [address] | [place] [address] | | | | | [phone] | [phone] | | | | | | | [...] | | | | | | [address], | | | | | | [place] [address] | | | | | | [phone] | | | | | | | | +--------+---------+ + + + + +------+--------+ + + | Name | Type | Priori | Associated Diagnoses | Order Schedule | | | | ty | | | + +------+--------+ + + | Lipid Panel | Lab | Routin | Essential | Expected: | | | | e | hypertension | 11/01/2018, Expires: | | | | | Coronary artery | 11/01/2019 | | | | | disease, angina | | | | | | presence | | | | | | unspecified, | | | | | | unspecified vessel | | | | | | or lesion type, | | | | | | unspecified whether | | | | | | [place] or | | | | | | transplanted heart | | | | | | Mixed hyperlipidemia | | + +------+--------+ + + | Comprehensive | Lab | Routin | Essential | Expected: | | Metabolic Panel | | e | hypertension | 11/01/2018, Expires: | | | | | Coronary artery | 11/01/2019 | | | | | disease, angina | | | | | | presence | | | | | | unspecified, | | | | | | unspecified vessel | | | | | | or lesion type, | | | | | | unspecified whether | | | | | | [place] or | | | | | | transplanted heart | | | | | | Mixed hyperlipidemia | | + +------+--------+ + + | CBC with | Lab | Routin | Essential | Expected: | | Differential | | e | hypertension | 11/01/2018, Expires: | | | | | Coronary artery | 11/01/2019 | | | | | disease, angina | | | | | | presence | | | | | | unspecified, | | | | | | unspecified vessel | | | | | | or lesion type, | | | | | | unspecified whether | | | | | | [place] or | | | | | | transplanted heart | | | | | | Mixed hyperlipidemia | | + +------+--------+ + + documented as of this encounter Visit Diagnoses + + | Diagnosis | + + | Essential hypertension - Primary Unspecified essential hypertension | + + | Coronary artery disease, angina presence unspecified, unspecified vessel or lesion | | type, unspecified whether [place] or transplanted heart | + + | Mixed hyperlipidemia | + + documented in this encounter"
--- OUTSIDE RECORDS SUMMARY | ~2020-01-10 | XMS | Encounter Summary ---
Demographics + + + | Address | [address] | | | [place] [address] | + + + | Home Phone | | + + + | Preferred Language | Unknown | + + + | Marital Status | | + + + | Judaism Affiliation | NON | + + + | Race | White | + + + | Ethnic Group | Not or | + + + Author + + + | Author | [facility] | + + + | Organization | [facility] | + + + [...] [place] | | | | | [address] | | + + + + + | Ronny Rene | ECON | Unknown | | + + + + + | Char Woodard | ECON | Unknown | | + + + + + Care Team Providers + +------+ + | Care Burlap Man Name | Role | Phone | + +------+ + | David Ferrera MD | PCP | | + +------+ + Encounter Details +--------+ + + + + | Date | Type | Department | Care Team | Description | +--------+ + + + + | 04/02/ | Documentati | LAB CORE [address] | Vijay Akbar MD | | | 2015 | on | [address] | [address] | | | | | [place], [place] | [address] [place] [place], | | | | | [address] | [place] [address] | | | | | [phone] | [phone] | | | | | | | [...]
--- OUTSIDE RECORDS SUMMARY | ~2020-01-10 | XMS | Encounter Summary ---
Demographics + + + | Address | [address] | | | [place] [address] | + + + | Home Phone | | + + + | Preferred Language | Unknown | + + + | Marital Status | | + + + | Temple Affiliation | Unknown | + + + | Race | Unknown | + + + | Ethnic Group | Unknown | + + + Author + + + | Author | [facility] | | | and [place] | + + + | Organization | [facility] | | | and [...] | | | | | [place] [address] | | + + + + + Care Team Providers + +------+ + | Care Jewel Bearing Grinder Name | Role | Phone | + +------+ + PCP | Unavailable | + +------+ + Encounter Details +--------+ + + + + | Date | Type | Department | Care Team | Description | +--------+ + + + + | 01/14/ | Hospital | [facility] | Yonas Cyr, | | | 2007 | Encounter | [facility] | MD [address] | | | | | LABORATORY [address] | [address], | | | | | [address] [place] | [place] [address] | | | | | [address] | [phone] | | | | | [phone] | | | +--------+ + + + [...] 2019 | Visit | | [address] | | | | | | [place], | | | | | | [place] [address] | | | | | | [phone] | | | | | | | | +--------+---------+ + + + documented as of this encounter Visit Diagnoses Not on filedocumented in this encounter"
--- OUTSIDE RECORDS SUMMARY | ~2020-01-10 | XMS | Encounter Summary ---
Demographics + + + | Address | [address] | | | [place] [address] | + + + | Home Phone [...] [place] | | | | | [address] | | + + + + + | Ronny Rene | ECON | Unknown | | + + + + + | Char Woodard | ECON | Unknown | | + + + + + Care Team Providers + +------+ + | Care Malted Milk Mixer Name | Role | Phone | + +------+ + | Deondre Landis MD | PCP | | + +------+ + Encounter Details +--------+ + + + + | Date | Type | Department | Care Team | Description | +--------+ + + + + | 10/11/ | Telephone | [facility] | Vijay Akbar MD | | | 2018 | | [place] [address] [address] | [address] | | | | | [facility] | [facility], | | | | | [facility] and | [place] [address] | | | | | [place] [address] | [phone] | | | | | [place], [place] | | | | | | [address] | | | | | | [phone] | | | +--------+ + + + [...]
--- OUTSIDE RECORDS SUMMARY | ~2020-01-10 | XMS | Encounter Summary ---
Demographics + + + | Address | [address] | | | [place] [address] | + + + | Home Phone | | + + + | Preferred Language | Unknown | + + + | Marital Status | | + + + | Presybeterian Affiliation | Unknown | + + + | Race | Unknown | + + + | Ethnic Group | Unknown | + + + Author + + + | Author | [facility] | | | and Tobyana | + + + | Organization | [facility] | | | and [...] | | | | | [place] [address] | | + + + + + Care Team Providers + +------+ + | Care Bar Helper Name | Role | Phone | [...] | | CARDIOLOGY [address] | [address] | | | | | [place], | [place], | | | | | [place] [address] | [place] [address] | | | | | [phone] | [phone] | | | | | | | [...] | | | | | | [place] [address] | | | | | | [phone] | | | | | | | | +--------+---------+ + + + documented as of this encounter Procedures + +--------+ + + + | Procedure Name | Priori | Date/Time | Associated Diagnosis | Comments | | | ty | | | | + +--------+ + + + | EXTERNAL LAB: [facility] | Routin | 11/06/2018 | | Results [...]
--- OUTSIDE RECORDS SUMMARY | ~2020-01-10 | XMS | Encounter Summary ---
Demographics + + + | Address | [address] | | | [place] [address] | + + + | Home Phone | | + + + | Preferred Language | Unknown | + + + | Marital Status | | + + + | Amish Affiliation | NON | + + + | Race | White | + + + | Ethnic Group | Not or | + + + Author + + + | Author | [facility] | + + + | Organization | [facility] | + + + | Address | Unknown | + + + | Phone | Unavailable | + + + Support + + + + + | Name | Relationship | Address | Phone | + + + + + | Selena Jimenez | ECON | [address] | | | | | [place] | | | | | [address] | | + + + + + | Ronny Rene | ECON | Unknown | | + + + + + | Char Woodard | ECON | Unknown | | + + + + + Care Team Providers + +------+ + | Care Composition Board Press Operator Name | Role | Phone | + +------+ + | Deondre Landis MD | PCP | | + +------+ + Reason for Visit + + + | Reason | Comments | + + + | Question | | + + + Encounter Details +--------+ + + + + | Date | Type | Department | Care Team | Description | +--------+ + + + + | 09/27/ | Telephone | [facility] | Vijay Akbar MD | Question | | 2017 | | Center at [facility] [address] | [address] | | | | | [facility] | [facility] | | | | | [facility] and | [place] [address] | | | | | [facility] 2 | [phone] | | | | | [place], [place] | | | | | | [address] | | | | | | [phone] | | | +--------+ + + + [...]
--- OUTSIDE RECORDS SUMMARY | ~2020-01-10 | XMS | Encounter Summary ---
Demographics + + + | Address | [address] | | | [place] [address] | + + + | Home Phone | | + + + | Preferred Language | Unknown | + + + | Marital Status | | + + + | Mu-Ism Affiliation | Unknown | + + + | Race | Unknown | + + + | Ethnic Group | Unknown | + + + Author + + + | Author | [facility] | | | and Tobyana | + + + | Organization | [facility] | | | and Tobyana | + + + | Address | Unknown | + + + | Phone | Unavailable | + + + Support + + + + + | Name | Relationship | Address | Phone | + + + + + | Selena Jimenez | ECON | [id number] | | | | | [place] [address] | | + + + + + Care Team Providers + +------+ + | Care Dairy Equipment Repairer Name | Role | Phone | [...] + | 11/24/ | Telephone | [facility] | Bernice Antonio, | Blood Pressure | | 2017 | | CARDIOLOGY [address] | MD [address] [place] | | | | | [place], | [place], | | | | | [place] [address] | [place] [address] | | | | | [phone] | [phone] | | | | | | | [...] | | | | | | [place] [address] | | | | | | [phone] | | | | | | | [...]
--- OUTSIDE RECORDS SUMMARY | ~2020-01-10 | XMS | Encounter Summary ---
Demographics + + + | Address | [address] | | | [place] [address] | + + + | Home Phone | | + + + | Preferred Language | Unknown | + + + | Marital Status | | + + + | Mormon Affiliation | NON | + + + [...] [place] | | | | | [address] | | + + + + + | Ronny Rene | ECON | Unknown | | + + + + + | Char Woodard | ECON | Unknown | | + + + + + Care Team Providers + +------+ + | Care Community Life Director Name | Role | Phone | [...] | 01/31/ | | Mailcode: Center | [place], [place] | | | 2019 | | [facility] and | [address] | | | | | [facility], [facility] 2 | [phone] | | | | | [place], [place] | | | | | | [address] | | | | | | [phone] | | | +--------+ + + + [...] EXTREMITY, Manolo Gallego MD PGY-3 Orthopedic Pager: #[phone] [facility] Department of Orthopaedics & Rehabilitation [address] [place] [address] Mail Code: [address] [place] [id number] Nurys Lan RN - 01/31/2019 1:31 AM PDT01:00 Pt's HR reaching low 120s on the pulse oximeter. Pt den ies pain, SOB, or chest pain. BP 104/58. KRYSTA Martinez notified. 500 LR bolus ordered and giv en. SUPERVISOR SPECIAL EFFECTS saw pt at bedside. Will continue to [...] male with a PMHx significant for CAD, MS, HLD, GERD, Chronic back pain, severe esophageal [...] calm, NAD. Neuro: AAOX4, responses appropriate. HEENT: [place]. Respiratory: Normal WOB, CTAB anteriorly, on RA. [...] to participate in this patient's care. SHERLYN [facility] General Surgery [facility] Outpatient Care Unit Pager# [phone] 10:11 PM 2019 documented i n this [...] | | Attending Surgeon: Glenn Siegel M.D. Try Out Person(s): Manolo | | | MD Lashonda Preoperative [...] | at 6 weeks. Glenn Siegel MD, [facility](C) Landscape Foreman | | | Department of Orthopaedics and Rehabilitation [facility] & | | | [facility] | | + + + CAPILLARY [...] [facility] | [address] | [place] [address] | | | OF CARE TESTS | [...] | + + + + + | [facility] | [address] | [place] [address] | | | SERVICES, [facility] | | | | | HEALTH [...] [facility] | [address] | [place] [address] | | | [facility] | | | | | HEALTH + [...]
--- OUTSIDE RECORDS SUMMARY | ~2020-01-10 | XMS | Encounter Summary ---
Demographics + + + | Address | [address] | | | [place] [address] | + + + | Home Phone | | + + + | Preferred Language | Unknown | + + + | Marital Status | | + + + | Confucianism Affiliation | NON | + + + [...] [place] | | | | | [address] | | + + + + + | Ronny Rene | ECON | Unknown | | + + + + + | Char Woodard | ECON | Unknown | | + + + + + Care Team Providers + +------+ + | Care Boilermaker Name | Role | Phone | + +------+ + | Deondre Landis MD | PCP | | + +------+ + Reason for Referral PROC - Inpatient Surgery +--------+--------+ + + + + | Status | Reason | Specialty | Diagnoses / | Referred By | Referred To | | | | | Procedures | Contact | Contact | +--------+--------+ + + + + | Closed | | Surgery | Diagnoses | Kristie, | Raffy, | | | | | Esophageal | MD Suzy | MD Vijay | | | | | cancer (HCC) | [address] | | | | | Procedures | [address] | Noel Charlton | | | | | REQUEST TO | Renee Soliz | [place], | | | | | SURGERY | [place], [place] | [place] | | | | | NURSE | [address] | [address] | | | | | [place] | Phone: | Phone: | | | | | LAP,ESOPHAGU | [phone] | [phone] | | | | | S,OTHER PROC | Fax: | Fax: | | | | | [place] REMOVAL | [phone] | [phone] | | | | | | | | | | | | ESOPHAGUS,NO | | | | | | | THORACOTOMY | | | | | | | [place] LAP, | | | | | | | JEJUNOSTOMY | | | +--------+--------+ + + + + Reason for Visit + + + | Reason | Comments | + + + | New patient | | | consultation | | + + + Consultation (Urgent) +--------+--------+ + + + + [...] | adenocarcino | [address] | | | | | sly (FORMERLY [facility]) | [address] | Noel Charlton | | | | | Procedures | Renee Soliz | [place], | | | | | CONSULT TO | [place], [place] | [place] | | | | | SURGERY - | [address] | [address] | | | | | GENERAL | Phone: | Phone: | | | | | | [phone] | [phone] | | | | | | Fax: | Fax: | | | | | | [phone] | [phone] | +--------+--------+ + + + + Encounter Details +--------+---------+ + + + | Date | Type | Department | Care Team | Description | +--------+---------+ + + + | 02/14/ | Office | Dig[facility]ive [facility] | Vijay Akbar MD | Esophageal cancer | | 2015 | Visit | Center at [facility] [address] | [address] | (HCC) (Primary Dx) | | | | [facility] | Renee Soliz [place], | | | | | [facility] [place] and | [place] [address] | | | | | [place] [address] | [phone] | | | | | [place], [place] | | | | | | [address] | | | | | | [phone] | | | +--------+---------+ + + + [...] + + + | Blood Pressure | 114/54 | 02/14/2015 1:24 PM | | | | | PDT | | + + + + + | Pulse | 64 | 02/14/2015 1:24 PM | | | | | PDT | | + + + + + | Temperature | 36.8 C (98.2 F) | 02/14/2015 1:24 PM | | | | | PDT | | + + + + + | Respiratory Rate | 16 | 02/14/2015 1:24 PM | | | | | PDT | | + + + + + | Oxygen Saturation | 97% | 02/14/2015 1:24 PM | | | | | PDT | | + + + + + | Inhaled Oxygen | - | - | | | Concentration | | | | + + + + + | Weight | 82.2 kg (181 lb 4.8 | 02/14/2015 1:24 PM | | | | oz) | PDT | | + + + + + | Height | 177.8 cm (5' 10") | 02/14/2015 1:24 PM | | | | | PDT | | + + + + + | Body Mass Index | 26.01 | 02/14/2015 1:24 PM | | | | | PDT | | + + + + + documented in this encounter Patient Instructions Patient Instructions Cheryl Henley RN - 02/14/2015 2:44 PM PDTEPICSPINPTPREOPINSTRUCTIONSP [facility] INFORMATION [facility] General Surgery Office Toll-free: ext [phone] Surgery Date: To Be Determined Procedure: Laparoscopic Transhiatal Esophagectomy Surgeon Name: Vijay Akbar MD, Tito Rene MD DIRECTIONS FOR SURGERY DIET Nothing to eat or drink after midnight on the night prior to surgery. Your doctor will ins truct you on what medications to take the morning of surgery. Please note: Some surgeries may require additional dietary restrictions or a bowel preparation. Your rollins rgical team will give you additional printed instructions should these be necessary. MEDICATIONS Unless otherwise directed by your provider, do not take any Aspirin, vitamin E or non-stero idal anti-inflammatory (NSAIDs i.e. Advil, Aleve, Ibuprofen) or herbal supplements seven day s prior to your surgery. These drugs may interfere with normal blood clotting and may cause excessive bleeding and bruising during or after the surgery. Please see the list below, [facility] has a list of products that contain Aspirin, Ibuprofen, or Vitamin E If you are taking Coumadin (warfarin), Plavix or any other blood thinners please let your s urgical team know as medication changes will be necessary. If you need a pain medication for general purposes, use Tylenol as directed. If you are in doubt about any medications that you are taking, please contact our office. PRE-OP BATHING/SHOWERING - HIBICLENS (Chlorhexidine Gluconate) Bath or shower the evening before and the morning of your surgery Use the bottle of Hibiclense soap for the evening cleansing and the bottle in the mor laura Wash from your neck to your toes. BE CAREFUL NOT TO WASH YOUR FACE OR HAIR WITH THIS SOLU TION After your shower or bath do not apply lotions, powders, or deoderant SMOKING You should not smoke for four weeks prior to the procedure and two weeks after the procedur e. If you are a smoker, please speak with your provider. Smoking can significantly affect the outcome of your procedure. Smoking near the time of rollins rgery causes a more acute narrowing of the blood vessels, which may lead to decreased blood flow to the tissue, poor healing, bad scars, or actual loss of tissue. WHEN TO ARRIVE Check-in times for Hospital Admissions are not available until the day prior to surgery. S mirandaone will contact you with your check in time. If you do not hear from anyone by 3:00 PM please call the General Surgery Office at [phone] for [id number]. PARKING Parking for patients and visitors is available in the [facility] Parking structure located across from the emergency department. Patient parking is available on level 1 and 3. Mete red parking is available on the top level. CHECKING IN FOR SURGERY For Hospital Admission (in-patient) you will check in on the day of surgery at the [facility] Department located on the 9th floor of [facility] TRANSPORTATION You will require transportation home on the day of discharge. Pain medications and physica l activity restrictions may limit your ability to drive safely. CANCELLING YOUR PROCEDURE Please notify the general surgery office at [phone] as soon as possible should you nee d to cancel or change your surgery date. We will attempt to reschedule your procedure in a timely manner however due to a limited amount of operating room time a waiting list is not u ncommon. ILLNESS Please call our office with any signs of illness such as cold, flu, infection, fever, or s kin rash/infection anytime prior to your surgery. PRODUCTS CONTAINING ASPIRIN Candice-Crowley, Anacin, Anexsia with Codeine, Andynos, Aspirin, Aspirin suppositories, Ascrip tin, Aspergum, Axotal, B-A-C, Baby Aspirin, Ellen, BC Powder, Bexophene, Buffaprin, Bufferin , Buffinol, Cama-Arthritis Strength, Congespirin, [place], Coricidin, Damason, Darvon, Dristan, Ayesha-Gesic, Digel, Dolprin #3 Tablets, Donatab, Doxaphene, Duragesic, Easprin, Ecotrin, Emag rin Forte, Emiprin, Emprazil, Equagesic, Equazine M, Excedrin, Fiogesic, Fiorgen PH, Fiorice t, Fiorinal, 4-Way Cold Tablet Gemnisyn, Indocin, Liquprin, Lortab ASA, Magnaprin, Marnal, Meprobamate, Midol, Momentum, N orgesic, Otis, Orphengesic, Pabalate, P-A-C, Percodan, Presalin, Robaxasil, Roxiprin, Jose eto, Salocol SK-65 Compound, Sine-Aid, Sine-Off,, [place], Supac, Talwin Compound, Trigesic, Tolectin , Traiminicin, Vanquish, ZORprin, Zomax PRODUCTS CONTAINING IBUPROFEN Advil, Aleve, Haltran, Medipren, Midol, Motrin, Naproxyn, Nuprin, Rufen OTHER PRODUCTS WHICH MAY PROMOTE BLEEDING Vitamin E, Gingko Biloba, Marine Fatty Acids, Keystone-3 Fish Oil Supplements documented in this encounter Progress Notes Suzy Flowers MD - 02/14/2015 12:02 PM PDTFormatting of this note might be different fro m the original. RED Surgery CLINIC HISTORY AND PHYSICAL EXAM Patient: Junaid Jimenez Author: Suzy Flowers MD Attending Physician: Vijay Akbar MD Date of Service: 02/14/2015 CONSULT QUESTION: eval for esophagectomy HISTORY OF PRESENT ILLNESS/ INTERVAL UPDATE: Junaid Jimenez is a 75 y.o. male presenting with a history of Cheema's esophagus and esopha geal adenocarcinoma. P/w several decades of reflux symptoms, taking Tums for years before s tarted on prilosec 3-4 years beforehand. Found on endoscopy at referring physician to have high-grade Cheema's esophagus, referred for possible ablation. However, December 2014 EGD wi th [address]. Lorenzo showed area of esophageal adenocarcinoma. Denies current problems with dominick turner. Started losing weight around August 2014 - having emesis, feeling like food hang ing up, regurgitating but symptoms have since resolved. 220 pounds to 175 pounds, back to 1 85 pounds - eating more now. 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 Workup to date: 12/30/2014 - EGD showing long segment Cheema's esophagus with focal HGD. Focal ring-like s tricture in the distal esophagus. Biopsies showed high-grade dysplasia and esophageal adeno carcinoma at 26-29mm. 01/10/2015 - PET/CT showed distal esophagus thickening with 0.8mm carinal region has maximum SUV of 3.16. 01/31/2015 - EBUS biopsy of the 0.8mm - negative for malignancy. EUS - wall thickening at l evel of stricture at 34cm but mucosa appears minimally thickened and the wall layer pattern is preserved throughout the esophagus. REVIEW OF SYSTEMS: A full 10 point review of systems was completed and is negative, except for the pertinent p ositives and negatives as noted above in the history of present illness. 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 Rewriter is Dr. Wagoner ([place]) Matter of life or , patient okay with blood transfusion PAST SURGICAL HISTORY: Past Surgical History Procedure Laterality Date Cabg x 2 Colonoscopy Shoulder surgery Open appendectomy for gangrenous, ruptured appendicitis Left inguinal hernia repair SOCIAL HISTORY: History Social History Marital Status: Spouse Name: N/A Number of Children: N/A Years of Education: N/A Occupational History Not on file. Social History Main Topics Smoking status: Former Smoker -- 1.00 packs/day for 50 years Types: Cigarettes Quit date: 12/25/2007 Smokeless tobacco: Current User Types: Snuff Comment: smokey moutain pure mint leaves snuff (nicotine free) Alcohol Use: 7.0 oz/week 14 drink(s) per week Drug Use: No Sexual Activity: Not on file Other Topics Concern Not on file Social History Narrative Patient resides outside [place], [place]. MEDICATIONS: Current Medication List Name Sig AMLODIPINE 10 MG TABLET Take 10 mg by mouth once daily. ASPIRIN 81 MG CHEWABLE TABLET Take 81 mg by mouth once daily. ATORVASTATIN 80 MG TABLET Take 80 mg by mouth once daily. LISINOPRIL 20 MG TABLET Take 20 mg by mouth once daily. MELOXICAM 15 MG TABLET Take 15 mg by mouth once daily. OMEPRAZOLE 20 MG CAPSULE,DELAYED RELEASE Take 20 mg by mouth once daily. ALLERGIES: Allergies Allergen Reactions Adhesive Tape Rash Paper tape is fine to use FAMILY HISTORY: 4 sisters/2 brothers - cancer (18 brothers/sisters) PHYSICAL EXAM: CURRENT VITALS: Ht 1.778 m (5' 10"), Wt 82.237 kg (181 lb 4.8 oz), BP 114/54, Pulse 64, Tem perature 36.8 C (98.2 F), Temperature source Oral, RR 16, SpO2 97%, BMI 26.01 kg/(m^2). General: Well appearing in no obvious distress HEENT: normocephalic & atraumatic, neck supple, trachea midline, oropharynx clear Respiratory: clear to auscultation bilaterally Cardiovascular: regular rate & rhythm without murmurs, pulses 2+ & equal bilaterally w/ ca pillary refill < 2 sec. Gastrointestinal: soft, non-tender, non-distended, no obvious masses appreciated. Neurologic: Awake , alert. Face symmetric, pupils equal round and reactive to light bilat erally, 3-2mm, extraocular eye muscles intact, no disconjugate gaze. Tongue midline, palate symmetric Motor: Grossly intact bilateral upper & lower extremities, age appropriate Sensory: Grossly intact to light touch in all extremities LABORATORY DATA: Lab Results Component Value Date/Time NA 139 12/30/2014 7:49 AM K 4.1 12/30/2014 7:49 AM CL 104 12/30/2014 7:49 AM BICARB 26 12/30/2014 7:49 AM BUN 12 12/30/2014 7:49 AM CR 1.11 12/30/2014 7:49 AM GLU 91 12/30/2014 7:49 AM CA 10.7* 12/30/2014 7:49 AM PATHOLOGY: Final Pathologic Diagnosis: A: Esophagus stricture, 34 cm, biopsy: - Focal high-grade dysplasia arising in columnar epithelium with intestinal metaplasia B: Esophagus, 35 cm, biopsy: - Focal low-grade crypt dysplasia arising in columnar epithelium with intestinal metaplasia [see comment] C: Esophagus, 32-33 cm, biopsy: - Focal intestinal metaplasia arising in columnar mucosa, negative for dysplasia or malignancy D: Esophagus, 30-31 cm, biopsy: - High-grade dysplasia arising in columnar epithelium with intestinal metaplasia E: Esophagus, 28-29 cm, biopsy: - Invasive adenocarcinoma, moderately differentiated, arising in a background of high-grade dysplasia in columnar mucosa [see comment] F: Esophagus, 26-27 cm, biopsy: - Intramucosal adenocarcinoma, moderately differentiated, arising in a background of high-grade dysplasia in columnar mucosa G: Cervical pouch, 23-25 cm, biopsy: - Focal low-grade dysplasia arising in columnar epithelium Comment: In part B there are deeper glands with dysplastic changes; however, a definite connection to the surface is not seen. The clinical significance of isolated crypt dysplasia is uncertain. In part E there is one fragment with at least intramucosal adenocarcinoma; however, given the fragmented specimen, deeper invasion cannot be excluded. Case seen by: César Lazcano M.D./Surgical Pathology Resident Ramu Morrell M.D., Ph.D./Pathologist /rdjaky RADIOLOGY AND OTHER DIAGNOSTICS: PET/CT: 01/10/2015 - Benign findings. Tiny lymph node in the carinal region has maximum SUV of 3.16. Mild esophageal wall thickening is present distally. ASSESSMENT: Junaid Jimenez is a 75 y.o. male p/w early distal esophageal adenocarcinoma. Good functiona l status in terms of nutrition, activity (able to walk up 2 flights of stairs without diffic ulty). RECOMMENDATIONS/PLAN: - PARQ held, written consent obtained for transhiatal esophagectomy, jejunostomy feeding tu be. Does not need neoadjuvant therapy as early stage disease. Anticipate surgery scheduled for mid-February to early March 2015. - MD preop appointment (hx of CAD/SD) Diagnostic data, case and plan discussed with Dr. Vijay Akbar. This plan is subject to [facility] nge, based on clinical developments. Thank you very much for the opportunity to consult on patient Junaid Jimenez. If you have a ny questions, please feel free to page or call us. - Suzy Flowers MD, pager [phone] [facility] Mail Code: L223 [facility] [address] STAFF: I personally interviewed the patient, performed the pertinent parts of the physical examina tion and personally formulated the plan with the resident. I agree with the residents docum entation and have documented any additions or exceptions. I spent 40 minutes in the care of this patient. Greater than 50% of the time was spent counseling and coordination of care, i ncluding reviewing results, discussing testing and treatment options. Diagnosis is esophagea l cancer. documented in this encou nter Plan of Treatment + +------+--------+ + + | Name | Type | Priori | Associated Diagnoses | Order Schedule | | | | ty | | | + +------+--------+ + + | 12 LEAD ECG | ECG | Routin | Esophageal cancer | Expected: 02/14/2015 | | | | e | (HCC) | | + +------+--------+ + + documented as of this encounter Results COMPLETE METABOLIC SET (NA,K,CL,CO2,BUN,CREAT,GLUC,CA,AST,ALT,BILI TOTAL,ALK PHOS,ALB,PROT TOTAL) (03/26/2015 3:45 PM PDT) + +---------+ + + + | Component | Value | Ref Range | Performed | Pathologist | | | | | At | Signature | + +---------+ + + + | GLUCOSE, | 93 | 60 - 99 mg/dL [...] +---------+ + + + | CREATININE | 1.09 | 0.70 - 1.30 | [facility] | | | PLASMA | | mg/dL | LABORATORY | | | (LAB) | | | SERVICES, | | | | | | CORE | | + +---------+ + + + | EGFR | >60 | >60 mL/min | [facility] | | | - | | | LABORATORY | | | ENGLISH | | | SERVICES, | | | | | | CORE | | + +---------+ + + + | EGFR NON | >60 | >60 mL/min | [facility] | | | -MILAGRO | | | LABORATORY | | | RICAN | | | SERVICES, | | | | | | CORE | | + +---------+ + + + | SODIUM, | 135 (L) | 136 - 145 | [facility] | [...] +---------+ + + + | CALCIUM, | 10.0 | 8.6 - 10.2 | [facility] | | | PLASMA | | mg/dL | LABORATORY | | | (LAB) | | | SERVICES, | | | | | | CORE | | + +---------+ + + + | BILIRUBIN | 0.4 | 0.3 - 1.2 mg/dL | [facility] | | | TOTAL | | | LABORATORY | | | | | | SERVICES, | | | | | | CORE | | + +---------+ + + + | TOTAL | 7.3 | 6.4 - 8.2 g/dL | [facility] | | | PROTEIN, | | | LABORATORY | | | PLASMA | | | SERVICES, | | | (LAB) | | | CORE | | + +---------+ + + + | ALBUMIN, | 3.6 | 3.5 - 4.7 g/dL | [facility] | | | PLASMA | | | LABORATORY | | | (LAB) | | | SERVICES, | | | | | | CORE | | + +---------+ + + + | ALK PHOS | 92 | 56 - 119 U/L | [facility] | | | | | | LABORATORY | | | | | | SERVICES, | | | | | | CORE | | + +---------+ + + + | AST(SGOT) | 19 | <=41 U/L | [facility] | | | | | | LABORATORY | | | | | | SERVICES, | | | | | | CORE | | + +---------+ + + + | ALT (SGPT) | 19 | <=60 U/L | [facility] | | | | | [...] | + +---------+ + + + | BILI T CMNT | No Hemo | | [facility] | | | | | | LABORATORY | | | | | | SERVICES, | | | | | | CORE | | + +---------+ + + + | AST CMNT | No Hemo | | [facility] | | | | [...] the MDRD equation recommended by the | [facility] | | National Kidney Disease Education [...] | + + + + + | [facility] | [address] | [place] [address] | | | [place] | [address] | | | + + + + + INR (03/26/2015 3:45 PM PDT) + + + + + + | Component | Value | Ref Range | Performed | Pathologist | | | | | At | Signature | + + + + + + | INR | 0.87 (L) | 0.90 - 1.20 INR | [facility] | | | | | | LABORATORY | | | | | | SERVICES, | | | | | | CORE | | + + + + + + + + | Specimen | + + | Blood - Blood | + + + + + | Narrative | Performed At | + + + | INR Therapeutic ranges for full anticoagulation: INR for | [facility] | | Venous Thromboembolism (2.0 - 3.0) INR INR for | LABORATORY | | most patients with mech. valves (2.5 - 3.5) INR | [place], [place] | + + + + + + + + | Performing | Address | City/State/Zipcode | Phone Number | | Organization | | | | + + + + + | [facility] | [address] | [place] [address] | | | SERVICES, [place] | [address] | | | + + + + + documented in this encounter Visit Diagnoses + + | Diagnosis | + + | Esophageal cancer (HCC) - Primary Malignant neoplasm of esophagus, unspecified site | + + documented in this encounter
--- OUTSIDE RECORDS SUMMARY | ~2020-01-10 | XMS | Encounter Summary ---
Demographics + + + | Address | [address] | | | [place] [address] | + + + | Home Phone | | + + + | Preferred Language | Unknown | + + + | Marital Status | | + + + | Rastafari Affiliation | Unknown | + + + | Race | Unknown | + + + | Ethnic Group | Unknown | + + + Author + + + | Author | [facility] | | | and Tobyana | + + + | Organization | [facility] | | [...] | | | | | [place] [address] | | + + + + + Care Team Providers + +------+ + | Care Parts Expediter Name | Role | Phone | + +------+ + PCP | Unavailable | + +------+ + Encounter Details +--------+ + + + + | Date | Type | Department | Care Team | Description | +--------+ + + + + | 01/15/ | Hospital | [facility] | Yonas Cyr, | | | 2007 - | Encounter | [facility] | [address] | | | | | CARDIAC TRANSPLANT | [place], | | | 01/19/ | | [address] | [place] [address] | | | 2007 | | [place] | [phone] | | | | | [address] | | | | | | [phone] | | | +--------+ + + + [...] undergone heart catheterization by Dr. Antonio in [place], and thi s demonstrated significant coronary artery [...] month, and also with Dr. Antonio in [facility] 1 month. DISCHARGE MEDICATIONS: 1. Ecotrin 325 mg daily. 2. Hydrocodone 5 mg p.r.n. incisional soreness. 3. Ibuprofen 400 mg 3 times a day. 4. Lisinopril 10 mg daily. 5. Metoprolol 25 mg twice a day. FINAL DIAGNOSIS: Coronary artery disease. PROCEDURE PERFORMED: Coronary artery bypass grafting x2 including the left internal mamma ry artery. ASIA JIMENEZ [id number] 01/20/08 DIS [place] [id number] DISCHARGE SUMMARY BRITTANY Rodriguez [facility] MD Jamee Walker THIS REPORT IS CONFIDENTIAL AND NOT TO BE RELEASED WITHOUT PROPER AUTHORIZATION. [facility] ALEJANDRA Peters MD P TV/pmt #[id number] cc: MD Tawanda Davidson MD Torrey Vail, PA-C Suwong Wongsuwan, MD xc: Emile Lowery D.O. [address] [facility] [place] [address] Digitally authenticated 05/13/08 [address] Cyr MD MASOUDASIA [id number] 01/20/08 DIS IN [id number] DISCHARGE SUMMARY BRITTANY Rodriguez [facility] MD Jamee Walker THIS REPORT IS CONFIDENTIAL [...] [place], | | | | | | [place] [address] | | | | | | [phone] | | | | | | | | +--------+---------+ + + + documented as of this encounter Visit Diagnoses Not on filedocumented in this encounter"
--- OUTSIDE RECORDS SUMMARY | ~2020-01-10 | XMS | Encounter Summary ---
Demographics + + + | Address | [address] | | | [place] [address] | + + + | Home Phone | | + + + | Preferred Language | Unknown | + + + | Marital Status | | + + + | Mosque Affiliation | Unknown | + + + | Race | Unknown | + + + | Ethnic Group | Unknown | + + + Author + + + | Author | [facility] | | | and Tobyana | + + + | Organization | [facility] | | [...] | | | | | [place] [address] | | + + + + + Care Team Providers + +------+ + | Care Investment Trader Name | Role | Phone | + [...] | | | | | [address] | | | | | | [place], [place] | | | | | | [address] | | | | | | [phone] | | | +--------+ + + + [...] | | | | | | [place] [address] | | | | | | [phone] | | | | | | | | +--------+---------+ + + + documented as of this encounter Visit Diagnoses Not on filedocumented in this encounter
--- OUTSIDE RECORDS SUMMARY | ~2020-01-10 | XMS | Encounter Summary ---
Demographics + + + | Address | [address] | | | [place] [address] | + + + | Home Phone [...] [place] | | | | | [address] | | + + + + + | Ronny Rene | ECON | Unknown | | + + + + + | Char Woodard | ECON | Unknown | | + + + + + Care Team Providers + +------+ + | Care Nurse Case Manager Name | Role | Phone | [...]
--- OUTSIDE RECORDS SUMMARY | ~2020-01-10 | XMS | Encounter Summary ---
Demographics + + + | Address | [address] | | | [place] [address] | + + + | Home Phone | | + + + | Preferred Language | Unknown | + + + | Marital Status | | + + + | Samaritan Affiliation | NON | + + + [...] [place] | | | | | [address] | | + + + + + | Ronny Rene | ECON | Unknown | + | + + + + + | Char Woodard | ECON | Unknown | | + + + + + Care Team Providers + +------+ + | Care Animal Sitter Name | Role | Phone | + +------+ + | David Ferrera MD | PCP | | + +------+ + Encounter Details +--------+ + + + + | Date | Type | Department | Care Team | Description | +--------+ + + + + | 04/15/ | Pharmacy | Outpatient [facility] | | | | 2014 | Visit | [facility] | | | | | | [address] | | | | | | [address] [place], [place] | | | | | | [address] | | | | | | [phone] | | | +--------+ + + + [...]
--- OUTSIDE RECORDS SUMMARY | ~2020-01-10 | XMS | Encounter Summary ---
Demographics + + + | Address | [address] | | | [place] [address] | + + + | Home Phone | | + + + | Preferred Language | Unknown | + + + | Marital Status | | + + + | Presybeterian Affiliation | NON | + + + | Race | White | + + + | Ethnic Group | Not or | + + + Author + + + | Author | [facility] | + + + | Organization | [facility] | + + + | Address | Unknown | + + + | Phone | Unavailable | + + + Support + + + + + | Name | Relationship | Address | Phone | + + + + + | Selena Jimenez | ECON | [address] | | | | | [place] | | | | | [address] | | + + + + + | Ronny Rene | ECON | Unknown | | + + + + + | Char Woodard | ECON | Unknown | | + + + + + Care Team Providers + +------+ + | Care Evaluation Assistant Name | Role | Phone | [...] | | fracture of | | Rd [place], | | | | | proximal end | | [place] | | | | | of right | | [address] | | | | | humerus, | | Phone: | | | | | initial | | [phone] | | | | | encounter | | Fax: | | | | | Other | | [phone] | | | | | fracture of [...] | | | | | | | GAUGE MAKER | | | | | | | AK OPEN RX | | | | | | | PROX HUMERUS | | | | | | | FX AK OPEN | | | | | | | FIXATN MID | | | | | | | HUMERUS | | | | | | | FRACTURE [place] | | | | | | | [...] | 2019 | Visit | [facility] at [place] | [address] | unspecified | | | | for Health and | [facility] [address] | chronicity, | | | | Healing [address] | [place], [place] | unspecified | | | | [facility] | [address] | laterality (Primary | | | | Health and Healing, | [phone] | Dx); Other closed | | | | Building | | displaced fracture | | | | floor [place], [place] | | of proximal end of | | | | [address] | | right humerus, | | | | [phone] | | initial encounter | +--------+---------+ + [...] laparscopic 03/28/2015 transhiatal esophagectomy, Dr. Akbar at [facility] Left neck incision and drainage Left 04/02/2015 2/2 anastomotic leak Laparoscopic placement of jejunostomy feeding tube 03/28/2015 Dr. Akbar, [facility] Egd (esophagogastroduodenoscopy) 03/28/2015 Dr. Akbar, [facility] Current Outpatient Medications on File Prior [...] unit oral tablet Take 1,000 Units by [facility] once daily. HYDROcodone-acetaminophen 5-325 mg oral [...] file Gets together: Not on file Attends jehovah's witness service: Not on file Active member of [...]
--- OUTSIDE RECORDS SUMMARY | ~2020-01-10 | XMS | Encounter Summary ---
Demographics + + + | Address | [address] | | | [place] [address] | + + + | Home Phone [...] + | Author | [facility] | | | and Tobyana | + + + | Organization | [facility] | | | and [...] | | | | | [place] [address] | | + + + + + Care Team Providers + +------+ + | Care Mohel Name | Role | Phone | + +------+ + | Mingo Burgos DO | PCP | | + +------+ + Reason for Visit + + + | Reason | Comments | + + + | Blood Pressure Check | Blood pressure log from 09/18/2016-10/01/2016 | | (Screening) | | + + + Encounter Details +--------+ + + + + | Date | Type | Department | Care Team | Description | +--------+ + + + + | 10/12/ | Telephone | [facility] | Bernice Antonio, | Blood Pressure Check | | 2017 | | CARDIOLOGY [address] | [address] [facility] | (Screening) (Blood | | | | [facility], | [facility], | pressure log from | | | | [place] [address] | [place] [address] | 09/18/2016-10/01/2016 | | | | [phone] | [phone] | ) | | | | | | | [...] [place], | | | | | | [place] [address] | | | | | | [phone] | | | | | | | | +--------+---------+ + + + documented as of this encounter Visit Diagnoses Not on filedocumented in this encounter"
--- OUTSIDE RECORDS SUMMARY | ~2020-01-10 | XMS | Encounter Summary ---
Demographics + + + | Address | [address] | | | [place] [address] | + + + | Home Phone [...] [place] | | | | | [address] | | + + + + + | Ronny Rene | ECON | Unknown | | + + + + + | Char Woodard | ECON | Unknown | | + + + + + Care Team Providers + +------+ + | Care Field Pipe Lines Supervisor Name | Role | Phone | [...] at [facility] [address] | [address] | | | | | [facility] | [facility] | | | | | [facility] and | [place] [address] | | | | | [place] [address] | [phone] | | | | | [place], [place] | | | | | | [address] | | | | | | [phone] | | | +--------+ + + + [...]
--- OUTSIDE RECORDS SUMMARY | ~2020-01-10 | XMS | Encounter Summary ---
Demographics + + + | Address | [address] | | | [place] [address] | + + + | Home Phone [...] [place] | | | | | [address] | | + + + + + | Ronny Rene | ECON | Unknown | | + + + + + | Char Woodard | ECON | Unknown | | + + + + + Care Team Providers + +------+ + | Care Cook Pickled Meat Name | Role | Phone | + +------+ + | Deondre Landis MD | PCP | | + +------+ + Encounter Details +--------+ + + + + | Date | Type | Department | Care Team | Description | +--------+ + + + + | 04/15/ | Splitting Machine Tender | Digestive Health | Vijay Akbar MD | Esophageal | | 2015 | | Center at [facility] [address] | [address] | adenocarcinoma (HCC) | | | | [facility] | Latesha Soliz [place], (Primary Dx); | | | | for Health and | [place] [address] | Anastomotic leak | | | | Healing, Building [address] | [phone] | following | | | | [facility] [place] | | esophagectomy | | | | [address] | | | | | | [phone] | | | +--------+ + + + [...]
--- OUTSIDE RECORDS SUMMARY | ~2020-01-10 | XMS | Encounter Summary ---
Demographics + + + | Address | [address] | | | [place] [address] | + + + | Home Phone | | + + + | Preferred Language | Unknown | + + + | Marital Status | | + + + | Muslim Affiliation | NON | + + + [...] [place] | | | | | [address] | | + + + + + | Ronny Edgard | ECON | Unknown | | + + + + + | Char Woodard | ECON | Unknown | | + + + + + Care Team Providers + +------+ + | Care Dry Wall Finisher Name | Role | Phone | + +------+ + | Deondre Landis MD | PCP | | + +------+ + Reason for Referral PROC - Dept/Practice Procedure (Routine) +--------+--------+ + + + + | Status | Reason | Specialty | Diagnoses / | Referred By | Referred To | | | | | Procedures | Contact | Contact | +--------+--------+ + + + + | Closed | | Gastroenterol | Diagnoses | Enestvedt, | Gas Endo | | | | ogy | Esophageal | Brintha K, | [facility] [address] | | | | | cancer (HCC) | MD [address] | | | | | Procedures | [address] | [place] | | | | | CONSULT TO | Latesha Soliz | [address] | | | | | GI | [place], [place] | floor | | | | | PROCEDURE | [address] | [place], [place] | | | | | UNIT: [address] | Phone: | [address] | | | | | [place] LOW | [phone] | Phone: | | | | | ANESTH,UGI | Fax: | [phone] | | | | | ENDOSCOPY | [phone] | Fax: | | | | | HI UPPR GI | | [phone] | | | | | ENDO W FN | | | | | | | BX, US EXAM | | | +--------+--------+ + + + + Encounter Details +--------+ + + + + | Date | Type | Department | Care Team | Description | +--------+ + + + + | 01/22/ | Documentati | Digestive Health | Rubin Lorenzo | | | 2015 | on | Center at [facility] [address] | MD Doris [address] [facility] | | | | | [facility] | [facility] | | | | | [facility] and | [place], [place] | | | | | [place] [address] | [address] | | | | | [place], [place] | [phone] | | | | | [address] | | | | | | [phone] | | | +--------+ + + + [...]
--- OUTSIDE RECORDS SUMMARY | ~2020-01-10 | XMS | Encounter Summary ---
Demographics + + + | Address | [address] | | | [place] [address] | + + + | Home Phone [...] Author | [facility] | | | and Tobyana | + + + | Organization | [facility] | | | and [...] | | | | | [place] [address] | | + + + + + Care Team Providers + +------+ + | Care Exhibit Cleaner Name | Role | Phone | + +------+ + PCP | Unavailable | + +------+ + Encounter Details +--------+ + + + + | Date | Type | Department | Care Team | Description | +--------+ + + + + | 03/24/ | Hospital | [facility] | | | | 1992 | Encounter | MED CTR XRAY [address] | | | | | | [place] | | | | | | [place] [address] | | | | | | [phone] | | | +--------+ + + + [...] 2019 | Visit | | [address] | | | | | | [place], | | | | | | [place] [address] | | | | | | [phone] | | | | | | | | +--------+---------+ + + + documented as of this encounter Visit Diagnoses Not on filedocumented in this encounter"
--- OUTSIDE RECORDS SUMMARY | ~2020-01-10 | XMS | Encounter Summary ---
Demographics + + + | Address | [address] | | | [place] [address] | + + + | Home Phone [...] [place] | | | | | [address] | | + + + + + | Ronny Rene | ECON | Unknown | | + + + + + | Char Woodard | ECON | Unknown | | + + + + + Care Team Providers + +------+ + | Care Teletypesetter Monitor Name | Role | Phone | + +------+ + | Deondre Landis MD | PCP | | + +------+ + Reason for Visit + + + | Reason | Comments | + + + | Follow-up visit | | + + + Office Visit [...] | | | | | | | [place], [place] | | | | | | | [address] | | | | | | | Phone: | | | | | | | [phone] | | | | | | | Fax: | | | | | | | [phone] | +--------+--------+ + + + + Encounter Details +--------+---------+ + + + | Date | Type | Department | Care Team | Description | +--------+---------+ + + + | 04/15/ | Office | Digestive Health | Vijay Akbar MD | Cough (Primary Dx); | | 2016 | Visit | Center at [facility] [address] | [address] | Encounter for | | | | [facility] | Latesha Soliz [place], | follow-up | | | | for Health and | [place] [address] | surveillance of | | | | [place] [address] | [phone] | esophageal cancer | | | | [place], [place] | | | | | | [address] | | | | | | [phone] | | | +--------+---------+ + + + [...] Pressure | 135/65 | 04/15/2017 12:14 PM | | | | | PDT | | + + + + + | Pulse | 81 | 04/15/2017 12:14 PM | | | | | PDT | | + + + + + | Temperature | 36.2 C (97.2 F) | 04/15/2017 12:14 PM | | | | | PDT [...] kg (163 lb) | 04/15/2017 12:14 PM | | | | | PDT | | + + + + + | Height | 177.8 cm (5' 10") | 04/15/2017 12:14 PM | | | | | PDT | | + + + + + | Body Mass Index | 23.39 | 04/15/2017 12:14 PM | | | | | PDT | | + + + + + documented in this encounter Patient Instructions Patient Instructions Suzy Nguyen MD - 04/15/2017 11:30 AM PDTConsider starting multiv itamin daily documented in this encounter Progress Notes Suzy Nguyen MD - 04/15/2017 11:30 AM PDTFormatting of this note might be different fr om the original. [facility] Department of Surgery [facility] Note Author: Suzy Nguyen MD Attending Physician: Dr. Akbar 04/15/2017 ID: Junaid Jim[place] is a 77 y.o. 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 His post op course was compli cated by neck infection and dysphagia and anastomotic strictures sp serial dilations. Chief Complaint: 2 year follow up History of Present Illness: Junaid Jimenez is a 77 y.o. male patient who presents to clinic today two years out from transhiatal esophagectomy for high grade dysplasia. He has not und ergoing surviellence CTs due to lack of cancer on path. Overall he is doing very well. He has been maintaining weight and has no complaints. He i s eating well. He does have a new cough for the past three months. The cough is not produc tive. He is sleeping on an angle. He does not cough up any food. He is having no difficul ty with swallowing. He denies reflux. Past Medical History: Diagnosis Date Back pain, chronic Cheema's esophagus Dysphagia Esophageal adenocarcinoma (HCC) GERD (gastroesophageal reflux disease) Hearing loss bialteral hearing aids HTN (hypertension) Knee pain, chronic ID (myocardial infarction) (HCC) s/p CABG x 2 Unintentional weight loss Past Surgical History Procedure Laterality Date Cabg x 2 2007 Colonoscopy Shoulder surgery Right Back surgery x 4 Inguinal hernia repair Left Appendectomy Esophagectomy, laparscopic 03/28/2015 transhiatal esophagectomy, Dr. Akbar at [facility] Left neck incision and drainage Left 04/02/2015 2/2 anastomotic leak Laparoscopic placement of jejunostomy feeding tube 03/28/2015 Dr. Akbar, [facility] Egd (esophagogastroduodenoscopy) 03/28/2015 Dr. Akbar, [facility] Social History Substance Use Topics Smoking status: Former Smoker Packs/day: 1.00 Years: 50.00 Types: Cigarettes Quit date: 12/25/2007 Smokeless tobacco: Former User Types: Snuff Comment: smokey moutain pure mint leaves snuff (nicotine free) Alcohol use 7.0 oz/week 14 Standard drinks or equivalent per week Family History Problem Relation Blood Disease Neg Hx Anesthesia Neg Hx Medications: aspirin chewable 81 mg oral tablet,chewable, 1 tablet by feeding tube route once daily. atorvastatin 80 mg oral tablet, 1 tablet by feeding tube route once daily. omeprazole 40 mg oral capsule,delayed release(DR/EC), Take 1 capsule by mouth once daily. I ndications: gastroesophageal reflux disease ondansetron ODT (ZOFRAN ODT) 4 mg oral tablet,disintegrating, Take 1 tablet by mouth every six hours as needed for nausea/vomiting. oxyCODONE, immediate release, 5 mg/5 mL oral solution, 5 mL by feeding tube route every six hours as needed for moderate pain. Allergies: Allergies Allergen Reactions Adhesive Tape Rash Paper tape is fine to use OBJECTIVE: Vitals: BP 135/65 | Pulse 81 | Temp (Src) 36.2 C (97.2 F) (Oral) | Ht 1.778 m (5' 10") | Wt 73. 9 kg (163 lb) | BMI 23.39 kg/(m^2) Physical Exam: GENERAL: well appearing, NAD NEURO: awake, alert, and oriented LUNGS: Normal respiratory effort, CTAB CV: RRR, + Murmur ABDOMEN: soft, incisions well healed, non tender Extremities:Warm and well perfused Pathology: Final Pathologic Diagnosis: A: Distal margin, frozen section biopsy: - Segment of stomach with no diagnostic abnormality - Negative for dysplasia B: Level 9 lymph nodes, dissection: - Fibroadipose connective tissue with no diagnostic abnormality - Negative for malignancy C: Proximal margin, frozen section biopsy: - Segment of esophagus with squamocolumnar junctional type mucosa - Negative for dysplasia D: Esophagus and stomach, partial esophagectomy and gastrectomy: - Extensive high-grade dysplasia with accompanying low-grade dysplasia and intestinal metaplasia (spanning approx. 9-10 cm); negative for invasive component - Specimen reviewed in-toto - Fourteen lymph nodes with no diagnostic abnormality (0/14) - Gastric and esophageal mucosal margins free of dysplasia E: Proximal stomach, segmental resection: - Segment of stomach with no diagnostic abnormality - Specimen reviewed in-toto - Negative for malignancy Case seen by: Zoë Hong M.D./Surgical Pathology Resident Keaton Cook M.D./Pathologist :[facility]/Diagnostic Studies: CXR: pending ASSESSMENT: Junaid Jimenez is a 77 y.o. male patient who presents 2 years after transhiatal esophagectom y for high grade dysplasia. Overall he is doing very well. We will get CXR today to evalu ate for causes of new cough. PLAN: -CXR today read as clear -Return to clinic [address] Akbar has seen and examined the patient and agrees with the above plan. Suzy Nguyen MD Surgery, R5 Pager: [phone] STAFF: I personally interviewed the patient, performed the pertinent parts of the physical examina tion and personally formulated the plan with the resident. I agree with the residents docum entation and have documented any additions or exceptions. documented in this enc nter Plan of Treatment Not on filedocumented as of this encounter Results X-RAY CHEST 2 VIEW [...] Note | + + | Service Account, App [employer] Res In Interface - 04/15/2017 1:51 PM PDT [...] | Diagnosis | + + | Cough - Primary | + + | Encounter for follow-up surveillance of esophageal cancer | + + documented in this encounter
--- OUTSIDE RECORDS SUMMARY | ~2020-01-10 | XMS | Encounter Summary ---
Demographics + + + | Address | [address] | | | [place] [address] | + + + | Home Phone [...] [place] | | | | | [address] | | + + + + + | Ronny Rene | ECON | Unknown | | + + + + + | Char Woodard | ECON | Unknown | | + + + + + Care Team Providers + +------+ + | Care Dividing Machine Operator Name | Role | Phone [...] | | 2019 | | [facility] at [facility] | Clinic | shoulder) | | | | for Health and | | | | | | Healing [address] | | | | | | [facility] for | | | | | | Health and Healing, | | | | | | [facility] | | | | | | floor [place], [place] | | | | | | [address] | | | | | | [phone] | | | +--------+ + + + [...] yet? Yes, when: 01/16/19; where: [facility] attached Do you have a referring provider? yes who: Dr. Rapp attached X-Ray Yes, when: 01/16/19; where: [facility] req via fax to be pushed [phone] req via fax [phone] Patient also able to carry discs to appointment MRI No Other Imaging (CT, Ultrasound, etc.) No Is this a W/C injury? no If YES, create referral and complete: .ORTWCNEWPATIENT inside referral Note: We do not accept WC under [place] as they do not pay at [place] rates. Other out of state claims will only be accepted if they agree to pay at [place] rates docume nted in writing from adjustor. Can you confirm the insurance we will be billing for this visit? Medicare Note: If OHP, please note which type. E.g. [place], [employer], [employer], etc. ) Reminder: Please create referrals for pts with: HMO, OHP, [place], Self-Pay, W/C, TPL an d ED Post- [...]
--- OUTSIDE RECORDS SUMMARY | ~2020-01-10 | XMS | Encounter Summary ---
Demographics + + + | Address | [address] | | | [place] [address] | + + + | Home Phone | | + + + | Preferred Language | Unknown | + + + | Marital Status | | + + + | Jain Affiliation | Unknown | + + + | Race | Unknown | + + + | Ethnic Group | Unknown | + + + Author + + + | Author | [facility] | | | and Tobyana | + + + | Organization | [facility] | | | and [...] | | | | | [place] [address] | | + + + + + Care Team Providers + +------+ + | Care Combine Mechanic Name | Role | Phone | + +------+ + | David Ferrera MD | PCP | | + +------+ + Reason for Visit + + + | Reason | Comments | + + + | Annual Visit | | + + + | Coronary Artery | | | Disease | | + + + Encounter Details +--------+---------+ + + + | Date | Type | Department | Care Team | Description | +--------+---------+ + + + | 11/04/ | Office | [facility] | Bernice Antonio, | Coronary artery | | 2018 | Visit | CARDIOLOGY [address] | disease, angina | | | | [place], | [place], | presence | | | | [place] [address] | [place] [address] | unspecified, | | | | [phone] | [phone] | unspecified vessel | | | | | | or lesion type, | | | | | | unspecified whether | | | | | | chemehuevi or | | | | | | transplanted heart | | | | | | (Primary Dx); | | | | | | Hypertension, | | | | | | unspecified type | +--------+---------+ + + + Social History [...] + + + | Blood Pressure | 118/68 | 11/04/2017 10:11 AM | | | | | PST | | + + + + + | Pulse | 90 | 11/04/2017 10:11 AM | | | | | PST | | + + + + + | Temperature | - | - | | + + + + + | Respiratory Rate | 18 | 11/04/2017 10:11 AM | | | | | PST | | + + + + + | Oxygen Saturation | - | - | | + + + + + | Inhaled Oxygen | - | - | | | Concentration | | | | + + + + + | Weight | 71.2 kg (156 lb 15.5 | 11/04/2017 10:11 AM | | | | oz) | PST | | + + + + + | Height | 172.7 cm (5' 8") | 11/04/2017 10:11 AM | | | | | PST | | + + + + + | Body Mass Index | 23.87 | 11/04/2017 10:11 AM | | | | | PST | | + + + + + documented in this encounter Progress Notes Bernice Antonio MD - 11/04/2017 10:30 AM PSTFormatting of this note might be different f rom the original. PATIENT NAME: Junaid Jimenez : 1940: AGE: 77 y.o. PRIMARY CARE: David Ferrera MD OUTPATIENT FOLLOW UP VISIT Date of Service: 11/04/2017 HISTORY OF PRESENT ILLNESS: Junaid Jimenez is a 77 y.o. male with a history of coronary artery disease, post CABG x 2 in 12/2007, hypertension, hyperlipidemia, gastroesophageal reflux disease and remote smoking. Patient is being seen today for a treatment of his CAD and hypertension. Patient was in his usual state of health until 08/26/2017 when he was seen at [facility] for pain, and was admitted to have his gall bladder removed. He was last seen 09/17/2016 at which time he was to check his blood pressure for 2 weeks, s top taking pravastatin, check CMP, TSH, Lipid Panel, and CBC. He was then to follow up in on e year. Today, patient is feeling good from a cardiac standpoint. He denies any cardiac symp toms and has no specific cardiac complaints. Patient is physically active and exercises regu larly by walking. There is no chest pain or chest [...] mouth nightly. lisinopril (PRINIVIL,ZESTRIL) 40 MG tablet Take 1 tablet by mouth Daily. 30 tablet 5 meloxicam (MOBIC) 15 mg tablet Take 15 [...] Take by mouth. Take one capsule daily No current facility-administered medications for this visit. ALLERGIES Allergies Allergen Reactions Adhesive & Tape Rash ROS Review of Systems Constitutional: Negative for chills, diaphoresis, fever, malaise/fatigue and weight loss. HENT: Negative for congestion, hearing loss, nosebleeds and tinnitus. Eyes: Negative for blurred vision and double vision. Respiratory: Negative for shortness of breath. Cardiovascular: Negative for chest pain, palpitations and leg swelling. Gastrointestinal: Negative for blood in stool, constipation, diarrhea, nausea and vomiting. Genitourinary: Negative for dysuria, frequency, hematuria and urgency. Musculoskeletal: Negative for back pain, falls, joint pain, myalgias and neck pain. Skin: Negative for itching and rash. Neurological: Negative for dizziness, tingling, tremors, speech change, seizures, loss of c onsciousness and weakness. Endo/Heme/Allergies: Does not bruise/bleed easily. Psychiatric/Behavioral: Negative for memory loss. The patient is not nervous/anxious and do es not have insomnia. OBJECTIVE: PHYSICAL EXAM BP 118/68 | Pulse 90 | Resp 18 | Ht 1.727 m (5' 8") | Wt 71.2 kg (156 lb 15.5 oz) | BM I 23.87 kg/m Physical Exam Constitutional: He is oriented [...] not exh ibit a depressed mood. ECG: Normal sinus rhythm LAB RESULTS reviewed during visit today primarily from [facility]: LIPID Lab Results Component Value Date CHOL 189 09/17/2016 TRIG 51 09/17/2016 HDL 124 (H) 09/17/2016 LDL 55 09/17/2016 CHOLHDL 1.5 09/17/2016 LDLEX 49 07/01/2015 HDLEX 93.3 07/01/2015 TRIGEX 43 07/01/2015 CHOLEX 151 07/01/2015 CHEMISTRY Lab Results Component Value Date GLU 108 09/17/2016 GLUEX 93 07/01/2015 NA 137 09/17/2016 NAEX 135 07/01/2015 K 3.9 09/17/2016 KEX 4.8 07/01/2015 CL 101 09/17/2016 CLEX 98 07/01/2015 CO2 27 09/17/2016 CO2EX 24 07/01/2015 CALCIUM 9.1 09/17/2016 ALKPHOS 90 09/17/2016 AST 34 09/17/2016 ASTEX 21 07/01/2015 ALT 14 09/17/2016 ALTEX 16 07/01/2015 BILITOT 1.0 09/17/2016 CREA 1.14 09/17/2016 BUN 16 09/17/2016 EGFREX 66 07/01/2015 CREEX 1.09 07/01/2015 HEMATOLOGY Lab Results Component Value Date WBC 7.4 09/17/2016 WBCEX 8.3 07/01/2014 HGB 13.0 (L) 09/17/2016 HGBEX 13.9 07/01/2014 HCT 39.2 (L) 09/17/2016 HCTEX 39.9 (A) 07/01/2014 PLT 193 09/17/2016 PLTEX 236 07/01/2015 Above data and testing [...] standpoint. He is asymptomatic and physically active walking.There is no signs and symptoms of overt conges tive heart failure. He is in a class I of [place] [employer] functional class. Ther e is no fluid retention on physical examination. 2. Hypertension: A.Today his blood pressure is well controlled. 3.Hyperlipidemia A.He is on atorvastatin 80 mg a day.No recent lipid profile [facility] e 07/02/2015. Record shows that he is also on Pravachol. I think that it is most likely a typo. 4.Erectile dysfunction A. Today, patient mentioned that he has a difficulty to maintain hi s erection. Not addressed. 5.Esophageal cancer A. Patient underwent a esophagectomy at [facility] on 03/27/15. He was to ld during the 6 month follow-up that he is cancer free 6. Immunizations A. Patient is up to date on his influenza and pneumonia vaccines. PLAN: 1. Today, patient is doing well from cardiac standpoint. I will continue with current medi jarek regimen. 2. I recommend a therapeutic lifestyle change including walking 30 minutes a day, choosing healthy choices of diet , including DASH diet and weight reduction. 3. Follow-up in one year, or sooner with concerns. I, Debbie Sheppard, am acting as a scribe on behalf of, and in the presence of Bernice Antonio MD. I have reviewed and edited this note. Debbie Sheppard [facility] 11/04/2017 I, Bernice Antonio MD, personally performed the services described in this documentation, as scribed in my presence and it is both accurate and complete. Debbie Sheppard, [facility] 8 10:26 Electronically signed by: Bernice Antonio MD [facility] 11/04/2017 Portions of this chart may have been created with Azuki (Vozero/Gengibre) voice recognition software. Occasi onal wrong-word or [...] [place], | | | | | | [place] [address] | | | | | | [phone] | | | | | | | | +--------+---------+ + + + documented as of this encounter Procedures + +--------+ + + + | Procedure Name | Priori | Date/Time | Associated Diagnosis | Comments | | | ty | | | | + +--------+ + + + | ECG 12 LEAD | Routin | 11/04/2017 | Coronary artery | Results for this | | | e | 4:39 PM | disease, angina | procedure are in the | | | | PST | presence | results section. | | | | | unspecified, | | | | | | unspecified vessel | | | | | | or lesion type, | | | | | | unspecified whether | | | | | | chemehuevi or | | | | | | transplanted heart | | | | | | Hypertension, | | | | | | unspecified type | | + +--------+ + + + documented in this encounter Results ECG 12 lead (11/04/2017 4:39 PM PST) + + + + + + | Component | Value | Ref Range | Performed | Pathologist | | | | | At | Signature | + + + + + + | VENTRICULAR | 90 | BPM | [facility] | | | RATE EKG | | | | | + + + + + + | ATRIAL RATE | 90 | BPM | [facility] | | + + + + + + | P-R | 144 | ms | [facility] | | | INTERVAL | | | | | + + + + + + | QRS | 72 | ms | [facility] | | | DURATION | | | | | + + + + + + | Q-T | 348 | ms | [facility] | | | INTERVAL | | | | | + + + + + + | Q-T | 425 | ms | [facility] | | | INTERVAL | | | | | | (CORRECTED) | | | | | + + + + + + | P WAVE AXIS | 96 | degrees | [facility] | | + + + + + + | QRS AXIS | 37 | degrees | [facility] | | + + + + + + | INTERPRETAT | Normal sinus | | [facility] | | | ION TEXT | rhythmNormal ECGWhen | | | | | | compared with ECG of | | | | | | 17-SEP-2016 13:25,Vent. | | | | | | rate has increased BY | | | | | | 36 BPMQRS axis shifted | | | | | | leftCriteria for | | | | | | Lateral infarct are no | | | | | | longer presentCriteria | | | | | | for Inferior infarct are | | | | | | no longer | | | | | | presentNonspecific T | | | | | | wave abnormality, worse | | | | | | in Inferior leadsT wave | | | | | | inversion no longer | | | | | | evident in Lateral | | | | | | leadsConfirmed by | | | | | | BERNICE ANTONIO MD | | | | | | ([id number]) on 11/04/2017 | | | | | | 4:39:42 PM | | | | + + [...] or lesion | | type, unspecified whether chemehuevi or transplanted heart - Primary | + + | Hypertension, unspecified type | + + documented in this encounter
--- OUTSIDE RECORDS SUMMARY | ~2020-01-10 | XMS | Encounter Summary ---
Demographics + + + | Address | [address] | | | [place] [address] | + + + | Home Phone | | + + + | Preferred Language | Unknown | + + + | Marital Status | | + + + | Confucianist Affiliation | Unknown | + + + | Race | Unknown | + + + | Ethnic Group | Unknown | + + + Author + + + | Author | [facility] | | | and Tobyana | + + + | Organization | [facility] | | | and [...] | | | | | [place] [address] | | + + + + + Care Team Providers + +------+ + | Care Note Keeper Name | Role | Phone | + [...] + + | 10/12/ | Telephone | [facility] | Bernice Antonio, | Blood Pressure Check | | 2017 | | CARDIOLOGY [address] | [address] [facility] | (Screening) (Blood | | | | [place], | [place], | pressure log from | | | | [place] [address] | [place] [address] | 09/18/2016-10/01/2016 | | | | [phone] | [phone] | ) | | | | | [...] [place], | | | | | | [place] [address] | | | | | | [phone] | | | | | | | | +--------+---------+ + + + documented as of this encounter Visit Diagnoses Not on filedocumented in this encounter"
--- OUTSIDE RECORDS SUMMARY | ~2020-01-10 | XMS | Encounter Summary ---
Demographics + + + | Address | [address] | | | [place] [address] | + + + | Home Phone | | + + + | Preferred Language | Unknown | + + + | Marital Status | | + + + | Religion Affiliation | Unknown | + + + | Race | Unknown | + + + | Ethnic Group | Unknown | + + + Author + + + | Author | [facility] | | | and Tobyana | + + + | Organization | [facility] | | | and [...] | | | | | [place] [address] | | + + + + + Care Team Providers + +------+ + | Care Veneer Sample Maker Name | Role | Phone | [...] | CARDIOLOGY [address] | [address] | | | | | [place], | [place], | | | | | [place] [address] | [place] [address] | | | | | [phone] | [phone] | | | | | | | [...] [place], | | | | | | [place] [address] | | | | | | [phone] | | | | | | | [...] [address] | [place] | [phone] | | [facility] | | [address], [facility] | | | - LABORATORY | [...] + | [facility] | [address] | [place] | [phone] | | [facility] | | [address], [facility] | | | - LABORATORY | [...]
--- OUTSIDE RECORDS SUMMARY | ~2020-01-10 | XMS | Encounter Summary ---
Demographics + + + | Address | [address] | | | [place] [address] | + + + | Home Phone | | + + + | Preferred Language | Unknown | + + + | Marital Status | | + + + | Mosque Affiliation | NON | + + + [...] [place] | | | | | [address] | | + + + + + | Ronny Rene | ECON | Unknown | | + + + + + | Char Woodard | ECON | Unknown | | + + + + + Care Team Providers + +------+ + | Care Senior Oracle Database Developer Name | Role | Phone | + +------+ + | Deondre Landis MD | PCP | | + +------+ + Encounter Details +--------+ + + + + | Date | Type | Department | Care Team | Description | +--------+ + + + + | 04/12/ | Abstract | Digestive Health | Vijay Akbar MD | | | 2017 | | [place] [address] [address] | [address] | | | | | [facility] | [address] [place], | | | | | [facility] and | [place] [address] | | | | | [place] [address] | [phone] | | | | | [place], [place] | | | | | | [address] | | | | | | [phone] | | | +--------+ + + + [...]
--- OUTSIDE RECORDS SUMMARY | ~2020-01-10 | XMS | Encounter Summary ---
Demographics + + + | Address | [address] | | | [place] [address] | + + + | Home Phone | | + + + | Preferred Language | Unknown | + + + | Marital Status | | + + + | Yazidi Affiliation | Unknown | + + + | Race | Unknown | + + + | Ethnic Group | Unknown | + + + Author + + + | Author | [facility] | | | and Tobyana | + + + | Organization | [facility] | | | and [...] | | | | | [place] [address] | | + + + + + Care Team Providers + +------+ + | Care Mental Health Case Manager Name | Role | Phone | + +------+ + | Mingo Burgos DO | PCP | | + +------+ + Encounter Details +--------+ + + + + | Date | Type | Department | Care Team | Description | +--------+ + + + + | 06/28/ | Hospital | [facility] | Roderick Gill | Lumbar | | 2013 | Encounter | MED CTR XRAY [address] | [address], [address] | radiculopathy/neurog | | | | [place] | [place], [place] | enic claudication; | | | | [facility] [place] [address] | [address] | S/P lumbar spinal | | | | [phone] | | fusion; DDD | | | | | [facility], [facility] | (degenerative disc | | | | [...] | | | | | | [place] [address] | | | | | | [phone] | | | | | | | | +--------+---------+ + + + documented as of this encounter Procedures + +--------+ + + + | Procedure Name | Priori | Date/Time | Associated Diagnosis | Comments | | | ty | | | | + +--------+ + + + | FL INJECTION FOR CT | Routin | 06/28/2014 | Lumbar | Results for this | | MYELOGRAM | e | 12:06 PM | radiculopathy/neurog | procedure are in [...] + + documented in this encounter Results [place] Injection for CT Myelogram (06/28/2014 12:06 [...] + | MISCELLANEOUS LAB | | | [phone] | + +---------+ + + | MISCELANIOUS LAB | | | [phone] | + +---------+ + + documented in [...] Lumbago | + + documented in this encounter Administered Medications + +--------+ +-------+------+------+ | Medication Order | MAR | Action | Dose | Rate | Site | | | Action | Date | | | | + +--------+ +-------+------+------+ | iopamidol (ISOVUE-M 200) 200 | Given | 06/28/20 | 8 mLs | | | | mg/mL (PF) injection 8 mL 8 mL, | | 14 12:30 | | | | | INTRATHECAL, ONCE, 06/28/14 | | PM PDT | | | | | at 1230, For 1 dose, Radiology | | | | | | + +--------+ +-------+------+------+ +---+---+ | | | +---+---+ + +-------+ +-------+---+ + | lidocaine 1% injection 5 mL 5 | Given | 06/28/20 | 5 mLs | | Other | | mL, Intradermal, ONCE, Fri | | 14 12:30 | | | (Comment | | 06/28/14 at 1230, For 1 dose | | PM PDT | | | ) | + +-------+ +-------+---+ + +---+---+ | | | +---+---+ documented in this encounter"
--- OUTSIDE RECORDS SUMMARY | ~2020-01-10 | XMS | Encounter Summary ---
Demographics + + + | Address | [address] | | | [place] [address] | + + + | Home Phone [...] [place] | | | | | [address] | | + + + + + | Ronny Rene | ECON | Unknown | | + + + + + | Char Woodard | ECON | Unknown | | + + + + + Care Team Providers + +------+ + | Care Supervisory Air Intercept Controller Name | Role | Phone | + [...] | +--------+ + + + + | 11/02/ | Abstract | Dig[facility]ive Health | Vijay Akbar MD | Medical Records | | 2017 | | Center [place] [address] [address] | [address] | Review | | | | [facility] | [facility], | | | | | [facility] and | [place] [address] | | | | | [facility] [place] [address] | [phone] | | | | | [place], [place] | | | | | | [address] | | | | | | [phone] | | | +--------+ + + + [...]
--- OUTSIDE RECORDS SUMMARY | ~2020-01-10 | XMS | Encounter Summary ---
Demographics + + + | Address | [address] | | | [place] [address] | + + + | Home Phone | | + + + | Preferred Language | Unknown | + + + | Marital Status | | + + + | Sabianism Affiliation | Unknown | + + + | Race | Unknown | + + + | Ethnic Group | Unknown | + + + Author + + + | Author | [facility] | | | and Tobyana | + + + | Organization | [facility] | | | and [place] | + + + | Address | Unknown | + + + | Phone | Unavailable | + + + Support + + + + + | Name | Relationship | Address | Phone | + + + + + | Selena Jimenez | ECON | [place] [id number] | | | | | [place] [address] | | + + + + + Care Team Providers + +------+ + | Care Mri Manager Name | Role | Phone | [...] | | CARDIOLOGY [address] | [address] | | | | | [place], | [place], | | | | | [place] [address] | [place] [address] | | | | | [phone] | [phone] | | | | | | | [...] [place], | | | | | | [place] [address] | | | | | | [phone] | | | | | | | | +--------+---------+ + + + documented as of this encounter Visit Diagnoses Not on filedocumented in this encounter
--- OUTSIDE RECORDS SUMMARY | ~2020-01-10 | XMS | Encounter Summary ---
Demographics + + + | Address | [address] | | | [place] [address] | + + + | Home Phone | | + + + | Preferred Language | Unknown | + + + | Marital Status | | + + + | Tenriism Affiliation | Unknown | + + + | Race | Unknown | + + + | Ethnic Group | Unknown | + + + Author + + + | Author | [facility] | | | and Tobyana | + + + | Organization | [facility] | | | and [...] | | | | | [place] [address] | | + + + + + Care Team Providers + +------+ + | Care Well Logging Mud Analysis Captain Name | Role | Phone | + [...] | | CARDIOLOGY [address] | [address] [place] | | | | | [place], | [place], | | | | | [place] [address] | [place] [address] | | | | | [phone] | [phone] | | | | | | | [...] | | | | | | [place] [address] | | | | | | [phone] | | | | | | | [...]
--- OUTSIDE RECORDS SUMMARY | ~2020-01-10 | XMS | Encounter Summary ---
Demographics + + + | Address | [address] | | | [place] [address] | + + + | Home Phone [...] [place] | | | | | [address] | | + + + + + | Ronny Rene | ECON | Unknown | | + + + + + | Char Woodard | ECON | Unknown | | + + + + + Care Team Providers + +------+ + | Care Milk Route Supervisor Name | Role | Phone | + +------+ + | Deondre Landis MD | PCP | | + +------+ + Encounter Details +--------+ + + + + | Date | Type | Department | Care Team | Description | +--------+ + + + + | 09/16/ | [facility] | Digestive Health | Char Castillo, | Liver mass (Primary | | 2017 | | [facility] at [facility] [address] | MD [address] | Dx) | | | | [address] | [address] [place], [place] | | | | | for Health and | [address] | | | | | [place] [address] | [phone] | | | | | [place], [place] | | | | | | [address] | | | | | | [phone] | | | +--------+ + + + [...]
--- OUTSIDE RECORDS SUMMARY | ~2020-01-10 | XMS | Encounter Summary ---
Demographics + + + | Address | [address] | | | [place] [address] | + + + | Home Phone [...] | Author | [facility] | | | and Tobyana | + + + | Organization | [facility] | | | and [...] | | | | | [place] [address] | | + + + + + Care Team Providers + +------+ + | Care Accounting Administrative Assistant Name | Role | Phone | [...] Lumbar | [place], | [address] | | | | | radiculopath | MANAGER PRICING | [place], | | | | | y S/P | | [place] | | | | | lumbar | | [address] | | | | | spinal | | Phone: | | | | | fusion DDD | | [phone] | | | | | (degenerativ | | Fax: | | | | | e disc | | [phone] | | | | | disease), | [...] 2013 | | PHYSIATRY [address] | [address] | | | | | [address] | | | | | | [place] | | | | | | [address] | | | | | | [phone] | | | +--------+ + + + [...] [place], | | | | | | [place] [address] | | | | | | [phone] | | | | | | | [...] Chronic | | retrolisthesis of L4 on [id number] 1.4 cm. Bridging osteophyte across this level [...] + | MISCELLANEOUS LAB | | | [phone] | + +---------+ + + | MISCELANIOUS LAB | | | [phone] | + +---------+ + + FL Injection [...] + | MISCELLANEOUS LAB | | | [phone] | + +---------+ + + | MISCELANIOUS LAB | | | [phone] | + +---------+ + + documented in [...]
--- OUTSIDE RECORDS SUMMARY | ~2020-01-10 | XMS | Encounter Summary ---
Demographics + + + | Address | [address] | | | [place] [address] | + + + | Home Phone [...] | Author | [facility] | | | and Tobyana | + + + | Organization | [facility] | | | and [place] | + + + | Address | Unknown | + + + | Phone | Unavailable | + + + Support + + + + + | Name | Relationship | Address | Phone | + + + + + | Selena Jimenez | ECON | [id number] | | | | | [place] [address] | | + + + + + Care Team Providers + +------+ + | Care Bus Aide Name | Role | Phone | + +------+ + PCP | Unavailable | + +------+ + Encounter Details +--------+ + + + + | Date | Type | Department | Care Team | Description | +--------+ + + + + | 01/02/ | [facility] | [facility] | Bernice Antonio, | | | 2007 | Encounter | MED CTR XRAY [address] | [address] | | | | | [place] | [address] [place], | | | | | [place], [place] [address] | [place] [address] | | | | | [phone] | [phone] | | | | | | | [...] 2019 | Visit | | [address] | | | | | | [place], | | | | | | [place] [address] | | | | | | [phone] | | | | | | | | +--------+---------+ + + + documented as of this encounter Visit Diagnoses Not on filedocumented in this encounter"
--- OUTSIDE RECORDS SUMMARY | ~2020-01-10 | XMS | Encounter Summary ---
Demographics + + + | Address | [address] | | | [place] [address] | + + + | Home Phone [...] + | Author | [facility] | | | and Tobyana | + + + | Organization | [facility] | | | and [place] | + + + | Address | Unknown | + + + | Phone | Unavailable | + + + Support + + + + + | Name | Relationship | Address | Phone | + + + + + | Selena Jimenez | ECON | [address] | | | | | [place] [address] | | + + + + + Care Team Providers + +------+ + | Care Sheet Pile Hammer Operator Name | Role | Phone | [...] | CARDIOLOGY [address] | MD [address] | | | | | [place], | [place], | | | | | [place] [address] | [place] [address] | | | | | [phone] | | | | | | | [...] [place], | | | | | | [place] [address] | | | | | | [phone] | | | | | | | | +--------+---------+ + + + documented as of this encounter Visit Diagnoses Not on filedocumented in this encounter"
--- OUTSIDE RECORDS SUMMARY | ~2020-01-10 | XMS | Encounter Summary ---
Demographics + + + | Address | [address] | | | [place] [address] | + + + | Home Phone | | + + + | Preferred Language | Unknown | + + + | Marital Status | | + + + | Roman Catholic Affiliation | NON | + + + | Race | White | + + + | Ethnic Group | Not or | + + + Author + + + | Author | [facility] | + + + | Organization | [facility] | + + + | Address | Unknown | + + + | Phone | Unavailable | + + + Support + + + + + | Name | Relationship | Address | Phone | + + + + + | Selena Jimenez | ECON | [address] | | | | | [place] | | | | | [address] | | + + + + + | Ronny Rene | ECON | Unknown | | + + + + + | Char Woodard | ECON | Unknown | | + + + + + Care Team Providers + +------+ + | Care Network Mgr Name | Role | Phone | + +------+ + | Deondre Landis MD | PCP | | + +------+ + Reason for Visit +---------+ + | Reason | Comments | +---------+ + | Post Op | | +---------+ + Encounter Details +--------+---------+ + + + | Date | Type | Department | Care Team | Description | +--------+---------+ + + + | 05/09/ | Office | Digestive Health | Vijay Akbar MD | Esophageal | | 2015 | Visit | Center at [facility] | [address] | adenocarcinoma (HCC) | | | | [facility] | Latesha Soliz [place], | (Primary Dx); | | | | for Health and | [place] [address] | Anastomotic leak | | | | Healing, Building [address] | [phone] | following | | | | [place], [place] | | esophagectomy | | | | [address] | | | | | | [phone] | | | +--------+---------+ + + + [...] + + + | Blood Pressure | 126/56 | 05/09/2015 1:14 PM | | | | | PDT | | + + + + + | Pulse | 73 | 05/09/2015 1:14 PM | | | | | PDT | | + + + + + | Temperature | 36.5 C (97.7 F) | 05/09/2015 1:14 PM | | | | | PDT | | + + + + + | Respiratory Rate | 18 | 05/09/2015 1:14 PM | | | | | PDT | | + + + + + | Oxygen Saturation | 99% | 05/09/2015 1:14 PM | | | | | PDT | | + + + + + | Inhaled Oxygen | - | - | | | Concentration | | | | + + + + + | Weight | 76.2 kg (167 lb 14.4 | 05/09/2015 1:14 PM | | | | oz) | PDT | | + + + + + | Height | 176.5 cm (5' 9.5") | 05/09/2015 1:14 PM | | | | | PDT | | + + + + + | Body Mass Index | 24.44 | 05/09/2015 1:14 PM | | | | | PDT | | + + + + + documented in this encounter Patient Instructions Patient Instructions Corbin Dia MD - 05/09/2015 2:00 PM PDTTake: Aspirin (for life) Omeprazole (for life) Multivitamin (for life) Atorvastatin (as long as your primary care doctor directs you to take it) Metoclopramide (for 3 months after surgery) Stop simethicone. Recheck with your primary care doctor regarding your blood pressure in the next 1-2 months. documented in this encounter Progress Notes Ale Gipson MD - 05/09/2015 2:11 PM [facility]: 05/09/2015 Attending Physician: MD Raffy Author: Ale Gipson MD Chief Complaint: post Esophagectomy HPI: Junaid Jimenez is a 75 y.o. 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 He is post transhiatal esophagectomy (03/27/15) c omplicated with an anastomotic leak. Evaluated 4 weeks ago with resolution of leak. Had to h ave J tube replaced by IR Subjective: Feels like he is doing very well. Has gained 8 lbs in the last 2 weeks. Eating a soft diet, >2000 calories per day. 3-4 ensure a day plus meals. Currently on 6 cans of tube feeds, but usually 1/2 spills onto the bed. Has had a lot of problems with leaking from the J tube. No issues with eating. Denies dysphagia or dysmotility. Bowel working normally. Never took pain medication at home. Physical Exam: Last Vitals: BP 126/56 | Pulse 73 | Temp (Src) 36.5 C (97.7 F) (Oral) | RR 18 | Ht 1.76 5 m (5' 9.5") | Wt 76.159 kg (167 lb 14.4 oz) | SpO2 99% | BMI 24.45 kg/(m^2) General: NAD, Awake, alert. Respiratory: CTAB, no rales or rhonchi. Neck: Incision well healed. Cardiovascular: RRR, no m/r/g. Abdominal: Soft, NT, ND, no peritoneal signs. Incisions well healed. Jejunostomy site inta ct, drain present. Removed easily. Extremities: WWP, no edema. Distal pulses 2+ and symmetric Imaging No new Assessment and plan: Junaid Jimenez is a 75 y.o. male post transhiatal esophagectomy for esophageal cancer compli cated with an anstomtic leak which now has healed. Now 6 weeks out from [place], doing well, good return of appetite and weight gain. Advance to a regular diet D/c'd jejunostomy tube - encourage calories. Change dressing daily, will close. Call if concerns. Went over medication list. Continue to hold antihypertensives, as he is normotensive. Metoclopramide x 3 months. Omeprazole for life. Refilled today. Plan for follow-up at 3 months post-op (2 months from now). CT scan at 1 year given early stage and path with HGD only. Ale Gipson MD R5 resident Patient seen with Dr. Akbar, the attending of record. STAFF: I personally interviewed the patient, performed [...]
--- OUTSIDE RECORDS SUMMARY | ~2020-01-10 | XMS | Encounter Summary ---
Demographics + + + | Address | [address] | | | [place] [address] | + + + | Home Phone | | + + + | Preferred Language | Unknown | + + + | Marital Status | | + + + | Faith Affiliation | Unknown | + + + | Race | Unknown | + + + | Ethnic Group | Unknown | + + + Author + + + | Author | [facility] | | | and [place] | + + + | Organization | [facility] | | | and [place] | + + + | Address | Unknown | + + + | Phone | Unavailable | + + + Support + + + + + | Name | Relationship | Address | Phone | + + + + + | Selena Jimenez | ECON | [id number] | | | | | [place] [address] | | + + + + + Care Team Providers + +------+ + | Care Work Checker Name | Role | Phone | [...] | | | [place], [place] | [address] | | | | | [address] | | | | | | [phone] | | | +--------+ + + + [...] | | | | | | [place] [address] | | | | | | [phone] | | | | | | | | +--------+---------+ + + + documented as of this encounter Visit Diagnoses Not on filedocumented in this encounter"
--- OUTSIDE RECORDS SUMMARY | ~2020-01-10 | XMS | Encounter Summary ---
Demographics + + + | Address | [address] | | | [place] [address] | + + + | Home Phone [...] [place] | | | | | [address] | | + + + + + | Ronny Rene | ECON | Unknown | | + + + + + | Char Woodard | ECON | Unknown | | + + + + + Care Team Providers + +------+ + | Care Vault Teller Name | Role | Phone | + [...] | [address] | MD Doris [address] [facility] | | | | | [facility] | [facility] | | | | | Dina Gupta | [place], [place] | | | | | (M[facility]) | [address] | | | | | [place], [place] | [phone] | | | | | [address] | | | | | | [phone] | | | +--------+ + + + [...] Tuesday 8:00- 4:30 Endoscopy Toll Free ext [phone] or After business hours, or on weekends and holiday Hospital OperatorToll Free [phone] ext. [phone] and have the GI doctor foundation relations manager paged. The provider who performed your procedure [...] GROSS OF | [address] | [place], [place] | | | CARDIOLOGY | [address] | [address] | | + + + + + [...] | | | LABORATORY | | | FIJIAN | | | SERVICES, | | | [...] | + + + + + | [facility] | [address] | [place] [address] | | | SERVICES, CORE | RENEE [...] + + + + + | [facility] | [address] | [place] [address] | | | PATHOLOGY | [address] | | | + + + + + documented in this encounter Visit Diagnoses Not on filedocumented in this encounter"
--- OUTSIDE RECORDS SUMMARY | ~2020-01-10 | XMS | Encounter Summary ---
Demographics + + + | Address | [address] | | | [place] [address] | + + + | Home Phone [...] [place] | | | | | [address] | | + + + + + | Ronny Rene | ECON | Unknown | | + + + + + | Char Woodard | ECON | Unknown | | + + + + + Care Team Providers + +------+ + | Care School Guard Name | Role | Phone | + [...] + + + + | 04/29/ | Hospital | [facility] [address] | Tito Bains MD | | | 2015 | Encounter | [address] | [address] | | | | | [address] [facility] | Latesha Soliz [place], | | | | | [place], [place] | [place] [address] | | | | | [address] | [phone] | | | | | [phone] | | | +--------+ + + + [...] + + + | Blood Pressure | 139/81 | 04/29/2015 4:30 PM | | | | | PDT | | + + + + + | Pulse | 83 | 04/29/2015 4:30 PM | | | | | PDT | | + + + + + | Temperature | 36.4 C (97.5 F) | 04/29/2015 3:30 PM | | | | | PDT | | + + + + + | Respiratory Rate | 22 | 04/29/2015 4:30 PM | | | | | PDT | | + + + + + | Oxygen Saturation | 98% | 04/29/2015 4:30 PM | | | | | PDT | | + + + + + | Inhaled Oxygen | - | - | | | Concentration | | | | + + + + + | Weight | 74.4 kg (164 lb) | 04/29/2015 2:44 PM | | | | | PDT | | + + + + + | Height | 177.8 cm (5' 10") | 04/29/2015 2:44 PM | | | | | PDT | | + + + + + | Body Mass Index | 23.53 | 04/29/2015 2:44 PM | | | | | PDT | | + + + + + documented in this encounter Discharge Instructions Instructions Shelby Avalos RN - 04/29/2015WAKE OR MODERATE SEDATION DISCHARGE INSTRUCTMINAL FLORES Today you received medications to help you relax and better tolerate the procedure ordered by your physician. This was in addition to any local anesthetic given. Although these medica tions are rather short acting and are designed to allow quick recovery, actual recovery time s may vary. Although you may feel normal when you leave, these medications may still have af fects for the next 24 hours following the procedure. Your judgment may be affected and the e ffects of other medications may be increased. You must have someone else take you home, either by car or taxi. Don t drive, operate machinery or power tools. Don t drink any alcoholic beverages. Don t make any important decisions or sign legal papers. The effects of the medications will decrease with time but after discharge you may still fe el drowsy or experience temporary memory loss. If you normally take other medications, you s sisiuld continue to do so unless instructed otherwise by your physician. If you require more m edications for pain, only the physician responsible for your care can prescribe them. If you have any concerns which are related to the medications we have given you and it is b efore 8:00 pm, you can call the IRU at [phone]. For any other questions, please contact your primary physician. documented in this encounter Medications at Time [...] | 1 | 04/11/20 | | | pmofujvjykke-atia-wt | tube route once | | | [...] documented as of this encounter Progress Notes Bruce Duggan MD, MSc - 04/29/2015 3:49 PM PDTBRIEF INTERVENTIONAL RADIOLOGY PROCEDURE NOTE DATE: 04/29/2015 3:50 PM PROCEDURE: J tube replacement PRE-PROCEDURE DIAGNOSIS: J-tube dislodgment POST-PROCEDURE DIAGNOSIS: Same IR STAFF: Doris Isidro IR FELLOW: Michelle Duggan, #[id number] MEDICATIONS: Fentanyl 100 mcg IV Versed 1 mg IV COMPLICATION(S): None immediate FINDINGS: 1. Successful recanalization of existing jejunostomy tract, with placement of 16 Fr Deutsc h feeding tube, with position within the small bowll is confirmed under fluoroscopy. Full report forthcoming. documented in t his encounter Plan of Treatment Not on filedocumented as of this encounter Procedures + +--------+ + + + | Procedure Name | Priori | Date/Time | Associated Diagnosis | Comments | | | ty | | | | + +--------+ + + + | GASTROS TUBE EX | Routin | 04/29/2015 | | Results for this | | | e | 3:31 PM | | procedure are in the | | | | PDT | | results section. | + +--------+ + + + documented in this encounter Results GASTROS TUBE EX (04/29/2015 3:31 PM PDT) + + + + + + | Component | Value | Ref Range | Performed | Pathologist | | | | | At | Signature | + + + + + + | GASTROSTOMY | Procedure: | | | | | TUBE | Fluoroscopically guided | | | | | EXCHANGE | percutaneous jejunostomy | | | | | | feeding | | | | | | tubere-insertion IR | | | | | | Attending: Taryn Batista | | | | | | MD Dwaine, PhD IR | | | | | | Fellow: Bruce Duggan | | | | | | Preoperative | | | | | | diagnosis: poor | | | | | | nutritional status, s/p | | | | | | esophagectomy | | | | | | /anastomotic leak. | | | | | | original feeding tube | | | | | | fell out 2 days ago. | | | | | | Postoperative diagnosis: | | | | | | Successful reinsertion | | | | | | of a jejunostomy feeding | | | | | | tubethrough the same | | | | | | tract. | | | | | | Operations:Operation 1. | | | | | | US and fluoroscopic | | | | | | evaluation of the | | | | | | proximal small | | | | | | boweladjacent to the | | | | | | skin exit site of the | | | | | | previous J-tube. | | | | | | Operation 2. Access | | | | | | the lumen of the small | | | | | | bowel with a 5 Fr | | | | | | catheter and0.018" guide | | | | | | wire. Confirm with | | | | | | fluoroscopic evaluation | | | | | | and contrastinjection. | | | | | | Operation 3. | | | | | | Sequential dilation of | | | | | | the tract with 12 and | | | | | | 16 Fr dilators. | | | | | | Operation 4. Placement | | | | | | of a 16 Lao Dede | | | | | | feeding tube under | | | | | | fluoroscopicguidance. | | | | | | Operation 5. Contrast | | | | | | injection to confirm | | | | | | Indications:poor | | | | | | nutritional status, s/p | | | | | | esophagectomy / | | | | | | anastomotic leak. | | | | | | originalfeeding tube | | | | | | fell out 2 days ago. | | | | | | Medications: 1 mg Versed | | | | | | IV, 100 mcg Fentanyl | | | | | | IV. Moderate sedation | | | | | | wasmonitored by the | | | | | | Radiology nursing team. | | | | | | Contrast: 15 mL | | | | | | intra-enteric | | | | | | Complications: None | | | | | | immediate. Fluoroscopy | | | | | | time: 2 min and 36 sec | | | | | | Procedure:The patient, | | | | | | procedure, and allergies | | | | | | were confirmed in the | | | | | | presence of thepatient | | | | | | by the IR team. The | | | | | | attending physician was | | | | | | present for the | | | | | | entireprocedure. Written | | | | | | informed consent was | | | | | | obtained in a PARQ | | | | | | conference with | | | | | | thepatient. The | | | | | | procedure was performed | | | | | | with intravenous | | | | | | sedation. Using | | | | | | fluoroscopic guidance, | | | | | | the area around the skin | | | | | | exit site of the | | | | | | priorjejunostomy tube | | | | | | was evaluated. | | | | | | Contrast was injected | | | | | | through the | | | | | | existingtract confirming | | | | | | a direct pathway to the | | | | | | adjacent small bowel. | | | | | | Once anappropriate | | | | | | access site to the lumen | | | | | | of the jejunum was | | | | | | identified, a wire | | | | | | andcatheter were | | | | | | advanced into the lumen | | | | | | of the jejunum. | | | | | | Exchange was made for | | | | | | aworking wire. The | | | | | | tract was dilated to 16 | | | | | | Fr in a serial fashion | | | | | | and a 16 FrDeutsch | | | | | | feeding tube was | | | | | | advanced into the small | | | | | | bowel. The tube | | | | | | position wasconfirmed | | | | | | with contrast injection | | | | | | and fluoroscopic | | | | | | guidance. The locking | | | | | | loopwas formed under | | | | | | fluoroscopic guidance | | | | | | and repositioned in the | | | | | | adjacent smallbowel. A | | | | | | sterile dressing was | | | | | | applied. Findings:The | | | | | | tract to the small bowel | | | | | | was visualized with | | | | | | contrast injection and | | | | | | thetract secured with a | | | | | | wire / catheter | | | | | | combination. The small | | | | | | bowel appearsnormal. | | | | | | After access and tract | | | | | | dilation, the 16 Fr | | | | | | locking loop tube | | | | | | wasplaced under | | | | | | fluoroscopic guidance. | | | | | | Impression:Uneventful 16 | | | | | | Fr locking loop | | | | | | jejunostomy tube | | | | | | placement. Attending | | | | | | Radiologists: TARYN | | | | | | SUMAN ISIDROuthor: | | | | | | TARYN ISIDRO MD I | | | | | | have personally viewed | | | | | | this procedure/exam, | | | | | | reviewed this report, | | | | | | and madechanges to it | | | | | | where appropriate. | | | | | | Final/Electronically | | | | | | echo / TARYN | | | | | | DWAINE 04/29/2015 15:55 | | | | | | PM | | | | + + + + + + + + | Specimen | + + | | + + + +---------+ + + | Performing | Address | City/State/Zipcode | Phone Number | | Organization | | | | + +---------+ + + | [facility] DEPARTMENT OF | | | | [...] fentaNYL citrate (PF) | New Bag | 04/29/20 | 50 mcg | | | | (SUBLIMAZE) injection 25-100 mcg | | 15 3:25 | | | | | 25-100 mcg, intravenous, | | PM PDT | | | | | INTRAPROCEDURE PRN, Starting Tue | | | | | | | 04/29/15 at 1444, Until Tue | | | | | | | 04/29/15 at 1540, sedation | | | | | | + +---------+ +--------+------+------+ +---------+ +--------+---+---+ | New Bag | 04/29/20 | 50 mcg | | | | | 15 3:20 | | | | | | PM PDT | | | | +---------+ +--------+---+---+ +---+---+ | | | +---+---+ + +---------+ +--------+---+---+ | midazolam (VERSED) injection | New Bag | 04/29/20 | 0.5 mg | | | | 0.25-2 mg 0.25-2 mg, | | 15 3:25 | | | | | intravenous, INTRAPROCEDURE PRN, | | PM PDT | | | | | Starting 04/29/15 at 1444, | | | | | | | Until 04/29/15 at 1540, | | | | | | | sedation | | | | | | + +---------+ +--------+---+---+ +---------+ +--------+---+---+ | New Bag | 04/29/20 | 0.5 mg | | | | | 15 3:15 | | | | | | PM PDT | | | | +---------+ +--------+---+---+ +---+---+ | | | +---+---+ documented in this encounter
--- OUTSIDE RECORDS SUMMARY | ~2020-01-10 | XMS | Encounter Summary ---
Demographics + + + | Address | [address] | | | [place] [address] | + + + | Home Phone | | + + + | Preferred Language | Unknown | + + + | Marital Status | | + + + | Mandaeism Affiliation | NON | + + + | Race | White | + + + | Ethnic Group | Not or | + + + Author + + + | Author | [facility] | + + + | Organization | [facility] | + + + | Address | Unknown | + + + | Phone | Unavailable | + + + Support + + + + + | Name | Relationship | Address | Phone | + + + + + | Selena Jimenez | ECON | [address] | | | | | [place] | | | | | [address] | | + + + + + | Ronny Rene | ECON | Unknown | | + + + + + | Char Woodard | ECON | Unknown | | + + + + + Care Team Providers + +------+ + | Care Trench Pipe Layer Name | Role | Phone | + [...] | | 2015 | | Center at [facility] [address] | [address] | [facility] | | | | [facility] | [facility] | | | | | [facility] and | [place] [address] | | | | | [place] [address] | [phone] | | | | | [place], [place] | | | | | | [address] | | | | | | [phone] | | | +--------+ + + + [...]
--- OUTSIDE RECORDS SUMMARY | ~2020-01-10 | XMS | Encounter Summary ---
Demographics + + + | Address | [address] | | | [place] [address] | + + + | Home Phone [...] [place] | | | | | [address] | | + + + + + | Ronny Edgard | ECON | Unknown | | + + + + + | Char Woodard | ECON | Unknown | | + + + + + Care Team Providers + +------+ + | Care Steel Erector Name | Role | Phone | [...] | | | | Procedures | [address] | Dina | | | | | CONSULT TO | Latesha Soliz | [address] | | | | | GI | [place], [place] | floor | | | | | PROCEDURE | [id number] | [place], [place] | | | | | UNIT: [address] | Phone: | [phone] | | | | | [place] LOW | [phone] | Phone: | | | | | ANESTH,UGI | Fax: | [phone] | | | | | ENDOSCOPY | [phone] | Fax: | | | | | [place] [facility] | | [phone] | | | | | ENDO W [...] | 2015 | on | Center at [facility] [address] | MD Doris [address] [facility] | | | | | [facility] | [facility] | | | | | [facility] and | [place], [place] | | | | | [place] [address] | [address] | | | | | [place], [place] | [phone] | | | | | [address] | | | | | | [phone] | | | +--------+ + + + [...]
--- OUTSIDE RECORDS SUMMARY | ~2020-01-10 | XMS | Encounter Summary ---
Demographics + + + | Address | [address] | | | [place] [address] | + + + | Home Phone [...] [place] | | | | | [address] | | + + + + + | Ronny Edgard | ECON | Unknown | | + + + + + | Char Woodard | ECON | Unknown | | + + + + + Care Team Providers + +------+ + | Care Commercial Designer Name | Role | Phone | [...] | | | | lesion | MD [address] | | | | | Procedures | [address] | [facility] | | | | | CT | [facility] | [facility] and | | | | | MULTIPHASE | Rd | Healing, | | | | | LIVER AND | [place], [place] | Building [address], | | | | | [address] | [address] | 3rd Floor | | | | | CONTRAST [place] | Phone: | [place], [place] | | | | | CT ABD&PELV | [phone] | [address] | | | | | 1+ | Fax: | Phone: | | | | | SECTION/REGN | [phone] | [phone] | | | | | S | | Fax: | | | | | | | [phone] | +--------+--------+ + + + + Reason for Visit Diagnostic Testing (Urgent) +--------+--------+ + + + [...] | lesion | MD Crystal [address] | | | | | Procedures | [address] | Center for | | | | | CT | [facility] | Health and | | | | | MULTIPHASE | Rd | Healing, | | | | | LIVER AND | [place], [place] | Building 1, | | | | | [address] | [address] | 3rd Floor | | | | | CONTRAST [place] | Phone: | [place], [place] | | | | | CT ABD&PELV | [phone] | [address] | | | | | 1+ | Fax: | Phone: | | | | | SECTION/REGN | [phone] | [phone] | | | | | S | | Fax: | | | | | | | [phone] | +--------+--------+ + + + + Encounter Details +--------+ + + + + | Date | Type | Department | Care Team | Description | +--------+ + + + + | 09/16/ | Hospital | Radiology/Imaging | Kendell Castilloie Laura, | | | 2017 | Encounter | Lab at [address] | MD [address] | | | | | [address] [facility] | Ave [place], [place] | | | | | for Health and | [address] | | | | | Healing, Building 1, | [phone] | | | | | [facility] Floor | | | | | | [place], [place] | | | | | | [address] | | | | | | [phone] | | | +--------+ + + + [...] + + + +---------+ + + | metroNIDAZOLE | Take 1 tablet by | 42 | 0 | 09/16/20 | | | (FLAGYL) 500 mg oral | mouth every eight | tablet | | 17 | 8 | | tabletIndications: | hours for 14 days. | | | | | | anaerobic infection | Indications: | | | | | | | bacterial infection | | | | | + + + +---------+ + + documented as of this encounter Plan of Treatment Not on filedocumented as of this encounter Procedures + +--------+ + + + | Procedure Name | Priori | Date/Time | Associated Diagnosis | Comments | | | ty | | | | + +--------+ + + + | CT MULTIPHASE LIVER | Urgent | 09/16/2017 | Hepatic lesion | Results for this | | AND PELVIS W IV | | 3:56 PM | | procedure are in the | | CONTRAST | | PST | | results section. | + +--------+ + + + | CREATININE, POC | Routin | 09/16/2017 | Hepatic lesion | Results for this | | | e | 3:42 PM | | procedure are in the | | | | PST | | results section. | + +--------+ + + + documented in this encounter Results CT MULTIPHASE LIVER AND [...] | | | + +---------+ + + CREATININE, POC (09/16/2017 3:42 PM PST) + +-------+ + + + | Component | Value | Ref Range | Performed | Pathologist | | | | | At | Signature | + +-------+ + + + | CREATININE, | 1.3 | 0.7 - 1.3 mg/dL | [facility], | | | POC | | | POINT OF | | | | | | CARE TESTS | | + +-------+ + + + + + | Specimen | + + | Blood - Blood | | (substance) | + + + + + + + | Performing | Address | City/State/Zipcode | Phone Number | | Organization | | | | + + + + + | [facility] | [address] | [place] [address] | | | OF CARE TESTS | | | | + + + + + documented in this encounter Visit Diagnoses + + | Diagnosis | + + | Hepatic lesion Other specified disorders of liver | + + documented in this encounter Administered Medications + +---------+ +--------+------+------+ | Medication Order | MAR | Action | Dose | Rate | Site | | | Action | Date | | | | + +---------+ +--------+------+------+ | iohexol (OMNIPAQUE) 350 mg | IV Push | 09/16/20 | 125 mL | | | | iodine/mL injection 125 mL 125 | | 17 4:30 | | | | | mL, intravenous, ONCE, 1 dose, | | PM PST | | | | | 09/16/17 at 1630 | | | | | | + +---------+ +--------+------+------+ +---+---+ | | | +---+---+ documented in this encounter"
--- OUTSIDE RECORDS SUMMARY | ~2020-01-10 | XMS | Encounter Summary ---
Demographics + + + | Address | [address] | | | [place] [address] | + + + | Home Phone [...] [place] | | | | | [address] | | + + + + + | Ronny Rene | ECON | Unknown | | + + + + + | Char Woodard | ECON | Unknown | | + + + + + Care Team Providers + +------+ + | Care Sports Medicine Masseur Name | Role | Phone | + [...] | | 2014 | | Center at [facility] [address] | [address] | | | | | [facility] | [facility] | | | | | [facility] and | [place] [address] | | | | | [place] [address] | [phone] | | | | | [place], [place] | | | | | | [address] | | | | | | [phone] | | | +--------+ + + + [...]
--- OUTSIDE RECORDS SUMMARY | ~2020-01-10 | XMS | Encounter Summary ---
Demographics + + + | Address | [address] | | | [place] [address] | + + + | Home Phone [...] [place] | | | | | [address] | | + + + + + | Ronny Rene | ECON | Unknown | | + + + + + | Char Woodard | ECON | Unknown | | + + + + + Care Team Providers + +------+ + | Care Welder 2Nd Shift Name | Role | Phone | + +------+ + | Deondre Landis MD | PCP | | + +------+ + Encounter Details +--------+ + + + + | Date | Type | Department | Care Team | Description | +--------+ + + + + | 10/13/ | Telephone | [facility] | Char Castillo, | | | 2017 | | Center at [facility] [address] | MD [address] | | | | | [facility] | Ave [place], [place] | | | | | [facility] and | [address] | | | | | [facility] 2 | [phone] | | | | | [place], [place] | | | | | | [address] | | | | | | [phone] | | | +--------+ + + + [...] | Diagnosis | + + | Liver abscess - Primary Abscess of liver | + + documented in this encounter"
--- OUTSIDE RECORDS SUMMARY | ~2020-01-10 | XMS | Clinical Summary ---
Demographics + + + | Address | [address] | | | [place] [address] | + + + | Home Phone | | + + + | Preferred Language | Unknown | + + + | Marital Status | | + + + | Zoroastrianism Affiliation | Unknown | + + + | Race | Unknown | + + + | Ethnic Group | Unknown | + + + Author + + + | Author | [facility] | | | and [place] | + + + | Organization | [facility] | | | and [place] | + + + | Address | Unknown | + + + | Phone | Unavailable | + + + Support + + + + + | Name | Relationship | Address | Phone | + + + + + | Selena Jimenez | ECON | [address] | | | | | [place] [address] | | + + + + + Care Team Providers + +------+ + | Care Report Clerk Name | Role | Phone | + +------+ + | David Ferrera MD | PCP | | + +------+ + Allergies + [...] Branham | | Ger | + + Family History + + +------+ [...] + | Blood Pressure | 140/86 | 11/07/2018 9:12 AM | | | | | PST | | + + + + + | Pulse | 76 | 11/07/2018 9:12 AM | | | | | PST | | + + + + + | Temperature | - | - | | + + + + + | Respiratory Rate | 14 | 11/07/2018 9:12 AM | | | | | PST [...] | 76.4 kg (168 lb 6.9 | 11/07/2018 9:12 AM | | | | oz) | PST | | + + + + + | Height | 172.7 cm (5' 8") | 11/07/2018 9:12 AM | | | | | PST | | + + + + + | Body Mass Index | 25.61 | 11/07/2018 9:12 AM | | | | | PST | | + + + + + Plan of Treatment +--------+---------+ + + + | Date | Type | Specialty | Care Team | Description | +--------+---------+ + + + | 02/14/ | Office | Cardiology | Bernice Antonio, | | | 2020 | Visit | | [address] | | | | | | [place], | | | | | | [place] [address] | | | | | | [phone] | | | | | | | | +--------+---------+ + + + + + + + + | Health Maintenance | Due Date | Last Done | Comments | + + + + + | Vaccine: | | | | | Dtap/Tdap/Td (1 - | 3 | | | | Tdap) | | | | + + + + + | Vaccine: Zoster (1 | | | | | of 2) | 2 | | | + + + + + | Lung Cancer | | | | | Screening | 7 | | | + + + + + | Vaccine: | | | | | Pneumococcal 65+ (1 | 7 | | | | of 2 - PCV13) | | | | + + + + + | Adult Annual | | | | | Wellness Visit | 5 | | | + + + + + | Vaccine: Influenza | | 07/13/2017 | | | (Season Ended) | 0 | | | + + + + + Results Not on filefrom Last 3 Months [...] +--------+ +---------+--------+ | MEDICARE | MEDICA | [id number] | 09/19/18 | [phone] | | Medica | | | RE | | 87-Pre | 5 | | re | | | PART A | | sent | | | | | | AND B | | | | | | + +--------+ +--------+ +---------+--------+ | CIGNA | CIGNA | [id number] | 10/25/19 | [phone] | | Indemn | | | MDCR | | 20-Pre | 1 | | ity | | | SUPPLE | | sent | | | | | | MENT | | | | | | | | SOLUTI | | | | | | | | ONS [...] Self | [birth year] | [address] | | | al/Fam | | 1940 | [phone] | [place] [address] | | | hayley | | | 7 (Home) | | + +--------+ +--------+ + + Advance Directives + + + + + | Type | Date Recorded | Patient | Explanation | | | | Cloth Grader | | + + + + + | Power of | | | | | Brake Operator | | | | + + + + + | Advance | 06/04/2014 10:51 | | | | Directive | AM | | | + + + + +
--- OUTSIDE RECORDS SUMMARY | ~2020-01-10 | XMS | Encounter Summary ---
Demographics + + + | Address | [address] | | | [place] [address] | + + + | Home Phone [...] [place] | | | | | [address] | | + + + + + | Ronny Rene | ECON | Unknown | | + + + + + | Char Woodard | ECON | Unknown | | + + + + + Care Team Providers + +------+ + | Care Shot Bagger Name | Role | Phone | + +------+ + | Deondre Landis MD | PCP | | + +------+ + Reason for Visit + + + | Reason | Comments | + + + | Refill Request | Omeprazole | + + + Encounter Details +--------+--------+ + + + | Date | Type | Department | Care Team | Description | +--------+--------+ + + + | 05/17/ | Refill | Digestive Health | Vijay Akbar MD | Refill Request | | 2015 | | Center at [facility] [address] | [address] | (Omeprazole) | | | | [facility] | [facility], | | | | | [facility] and | [place] [address] | | | | | [facility], [place] [address] | [phone] | | | | | [place], [place] | | | | | | [address] | | | | | | [phone] | | | +--------+--------+ + + + [...]
--- OUTSIDE RECORDS SUMMARY | ~2020-01-10 | XMS | Encounter Summary ---
Demographics + + + | Address | [address] | | | [place] [address] | + + + | Home Phone | | + + + | Preferred Language | Unknown | + + + | Marital Status | | + + + | Scientologist Affiliation | Unknown | + + + | Race | Unknown | + + + | Ethnic Group | Unknown | + + + Author + + + | Author | [facility] | | | and [place] | + + + | Organization | [facility] | | | and [...] | | | | | [place] [address] | | + + + + + Care Team Providers + +------+ + | Care Gold Leaf Laborer Name | Role | Phone | + +------+ + PCP | Unavailable | + +------+ + Encounter Details +--------+ + + + + | Date | Type | Department | Care Team | Description | +--------+ + + + + | 01/02/ | [facility] | [facility] | Bernice Antonio, | | | 2007 | Encounter | MED CTR XRAY [address] | | | | | [address] | [address] [place], | | | | | [place], [place] [address] | [place] [address] | | | | | [phone] | [phone] | | | | | | | [...] 2019 | Visit | | [address] | | | | | | [place], | | | | | | [place] [address] | | | | | | [phone] | | | | | | | | +--------+---------+ + + + documented as of this encounter Visit Diagnoses Not on filedocumented in this encounter"
--- OUTSIDE RECORDS SUMMARY | ~2020-01-10 | XMS | Encounter Summary ---
Demographics + + + | Address | [address] | | | [place] [address] | + + + | Home Phone [...] [place] | | | | | [address] | | + + + + + | Ronny Rene | ECON | Unknown | | + + + + + | Char Woodard | ECON | Unknown | | + + + + + Care Team Providers + +------+ + | Care Metalizing Machine Operator Automatic Name | Role | Phone | + +------+ + | Deondre Landis MD | PCP | | + +------+ + Reason for Visit + + + | Reason | Comments | + + + | Care Questions | | + + + Encounter Details +--------+ + + + + | Date | Type | Department | Care Team | Description | +--------+ + + + + | 10/04/ | Telephone | Digestive Health | Char Castillo, | Care Questions | | 2018 | | Center at [facility] [address] | [address] | | | | | [address] [facility] | Ave [place], [place] | | | | | [facility] and | [address] | | | | | [place] [address] | [phone] | | | | | [place], [place] | | | | | | [address] | | | | | | [phone] | | | +--------+ + + + [...]
--- OUTSIDE RECORDS SUMMARY | ~2020-01-10 | XMS | Encounter Summary ---
Demographics + + + | Address | [address] | | | [place] [address] | + + + | Home Phone | | + + + | Preferred Language | Unknown | + + + | Marital Status | | + + + | Yarsani Affiliation | Unknown | + + + | Race | Unknown | + + + | Ethnic Group | Unknown | + + + Author + + + | Author | [facility] | | | and [place] | + + + | Organization | [facility] | | | and [place] | + + + | Address | Unknown | + + + | Phone | Unavailable | + + + Support + + + + + | Name | Relationship | Address | Phone | + + + + + | Selena Jimenez | ECON | [id number] | | | | | [place] [address] | | + + + + + Care Team Providers + +------+ + | Care Cash Posting Representative Name | Role | Phone | [...] | | | | | [place], | [address] Phone: | | | | | | [place] | [phone] | | | | | | [address] | Fax: | | | | | | Phone: | [phone] | | | | | | [phone] | | | | | | | Fax: | | | | | | | [phone] | | +--------+--------+ + + + + Encounter Details +--------+---------+ + + + | Date | Type | Department | Care Team | Description | +--------+---------+ + + + | 06/04/ | Office | [facility] | Roderick Gill | Chronic low back | | 2013 | Visit | PHYSIATRY [address] | [address] | pain (Primary Dx); | | | | [address] | [address] [place], [place] | DDD (degenerative | | | | [place], [place] | [address] | disc disease), | | | | [address] | | lumbar; S/P lumbar | | | | [phone] | | spinal fusion; | | | [...] Esophageal reflux Tobacco use disorder Obesity, unspecified [place] (myocardial infarction) 2005 PAST SURGICAL HISTORY: Past Surgical History Procedure Date Appendectomy 1956 Lumbar lamenectomy 1979 & 1980 Lateral lumbar spin fusion 1985 Lumbar neurolysis r 1986 Internal nerve revision for pain Colonoscopy 2012 Dr. Willis Coronary artery bypass graft 2006 [place]. Right rotator cuff surgery CURRENT MEDICATIONS: [...] has no apparent deficits with short or retirement memory. He has appropriate fund of knowledge [...] | 2019 | Visit | | [address] [facility] | | | | | | [place], | | | | | | [place] [address] | | | | | | [phone] | | | | | | | [...] + | MISCELLANEOUS LAB | | | [phone] | + +---------+ + + | MISCELANIOUS LAB | | | [phone] | + +---------+ + + XR Shoulder [...] + | MISCELLANEOUS LAB | | | [phone] | + +---------+ + + | MISCELANIOUS LAB | | | [phone] | + +---------+ + + XR Lumbar [...] | Procedure Note | + + | Oli, Rad Results In - 06/04/2014 12:53 PM [...] L5.Degenerative | | changes.Dictated and Signed by: Shvi Farooq MD Electronically signed: 06/04/2014 12:50 | [...] + | MISCELLANEOUS LAB | | | [phone] | + +---------+ + + | MISCELANIOUS LAB | | | [phone] | + +---------+ + + documented in [...]
--- OUTSIDE RECORDS SUMMARY | ~2020-01-10 | XMS | Encounter Summary ---
Demographics + + + | Address | [address] | | | [place] [address] | + + + | Home Phone | | + + + | Preferred Language | Unknown | + + + | Marital Status | | + + + | Denominational Affiliation | Unknown | + + + | Race | Unknown | + + + | Ethnic Group | Unknown | + + + Author + + + | Author | [facility] | | | and [place] | + + + | Organization | [facility] | | | and [place] | + + + | Address | Unknown | + + + | Phone | Unavailable | + + + Support + + + + + | Name | Relationship | Address | Phone | + + + + + | Selena Jimenez | ECON | [id number] | | | | | [place] [address] | | + + + + + Care Team Providers + +------+ + | Care Media Specialist Name | Role | Phone | + +------+ + | Mingo Burgos DO | PCP | | + +------+ + Reason for Visit + + + | Reason | Comments | + + + | Annual Exam | | + + + | Carotid Artery | | | Disease | | + + + | Hypertension | | + + + | Hyperlipidemia | | + + + Encounter Details +--------+---------+ + + + | Date | Type | Department | Care Team | Description | +--------+---------+ + + + | 07/25/ | Office | [facility] | Bernice Antonio, | Encounter for annual | | 2012 | Visit | CARDIOLOGY [address] [facility] | health examination | | | | [place], | [place], | (Primary Dx); CAD | | | | [place] [address] | [place] [address] | (coronary artery | | | | [phone] | [phone] | disease); HTN | | | | | | (hypertension) | +--------+---------+ + + + Social History [...] + + + | Blood Pressure | 110/58 | 07/25/2013 10:10 AM | left arm | | | | PST | | + + + + + | Pulse | 60 | 07/25/2013 10:10 AM | regular | | | | PST | | + + + + + | Temperature | - | - | | + + + + + | Respiratory Rate | 16 | 07/25/2013 10:10 AM | | | | | PST | | + + + + + | Oxygen Saturation | - | - | | + + + + + | Inhaled Oxygen | - | - | | | Concentration | | | | + + + + + | Weight | 80.3 kg (177 lb) | 07/25/2013 10:10 AM | | | | | PST | | + + + + + | Height | 180.3 cm (5' 11") | 07/25/2013 10:10 AM | | | | | PST | | + + + + + | Body Mass Index | 24.69 | 07/25/2013 10:10 AM | | | | | PST | | + + + + + documented in this encounter Progress Notes Bernice Antonio MD - 07/25/2013 10:20 AM PSTFormatting of this note might be different f rom the original. Subjective: Patient ID: Junaid Jimenez is a 73 y.o. male. Cardiology Office Visit Date of Service: 07/25/2013 HPI PCP: Mingo Burgos Junaid Jimenez is a 73-year-old man with a history of coronary artery disease, post CABG x 2 in 12/2007, hypertension, hyperlipidemia, gastroesophageal reflux disease and remote smokin g. Patient is being seen today for a treatment of his CAD and hypertension. He was last seen on 12/08/11 at which time lisinopril was increased to 40 mg a day for frannie r blood pressure control. Since that time,patient has been feeling great. 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 He has no cardiac complaint. There is no chest pain or chest discomfort both at rest and on exertion. Patient denies breathle ssness.There is no ankle or leg swelling. Patient can sleep on one pillow at night without difficulty breathing. There is no palpitation dizziness or lightheadedness. Patient Active Problem List Diagnosis OBESITY TOBACCO USER GERD HYPERLIPIDEMIA HYPERTENSION CHEST PAIN CAD Past Surgical History Procedure Date Appendectomy 1956 Lumbar lamenectomy 1979 & 1980 Lateral lumbar spin fusion 1984 Lumbar neurolysis r 1986 Internal nerve revision for pain Colonoscopy 2011 Dr. Willis Coronary artery bypass graft 2005 [place], [place] Right rotator cuff surgery History reviewed. No pertinent family history. Family Status Relation Status Age Father 71 COPD Mother 70 History Social History Marital Status: Spouse Name: Selena Number of Children: 7 Years of Education: N/A Social History Main Topics Smoking status: Former Smoker Smokeless tobacco: Current User Types: Snuff Comment: quit smoking in 2005/suff is herbal, no nicotine Alcohol Use: Yes 2-3 drinks at night Drug Use: No Sexually Active: None Other Topics Concern None Social History Narrative Exercise: No regular exercise program, but stays physically active running a 4,200 acre pr opertyCaffeine:2 mugs of coffee dailyLiving situation: with Selena Current Outpatient Prescriptions Medication Status Sig Dispense Refill amLODIPine (NORVASC) 5 mg tablet Active TAKE ONE TABLET BY MOUTH EVERY DAY 30 tablet 6 aspirin 325 mg EC tablet Active Take 325 mg by mouth Daily. Calcium Carbonate-Vitamin D (CALCIUM + D) 600-200 MG-UNIT TABS Active 1 tablet by mouth daily chlorthalidone 25 mg tablet Active TAKE ONE TABLET BY MOUTH EVERY DAY 30 tablet 6 lisinopril (PRINIVIL,ZESTRIL) 40 MG tablet Active TAKE ONE TABLET BY MOUTH EVERY DAY 3 0 tablet 6 meloxicam (MOBIC) 15 mg tablet Active Take 15 mg by mouth Daily. metoprolol tartrate (LOPRESSOR) 50 mg tablet Active TAKE ONE TABLET BY MOUTH TWICE HA Y 60 tablet 1 nitroglycerin (NITROSTAT) 0.4 mg SL tablet Active One tablet under tongue as needed for chest pain. May repeat every 5 minutes up to 3 times. If no relief after 3rd tablet, call 9 11. 25 tablet 11 omeprazole (PRILOSEC) 20 mg capsule Active Take 20 mg by mouth Daily. simvastatin (ZOCOR) 80 mg tablet Active TAKE ONE TABLET BY MOUTH EVERY DAY 30 tablet 6 tamsulosin (FLOMAX) 0.4 mg CAPS Active Take 0.4 mg by mouth daily (after breakfast). Allergies Allergen Reactions Adhesive & Tape Review of Systems Constitutional: Positive for activity change, appetite change (has trouble swallowing) and unexpected weight change (down 22 pounds). Negative for fever, chills, diaphoresis and fatig ue. HENT: Positive for hearing loss (wears aids). Negative for nosebleeds, congestion, dental p roblem (he had his remaining upper teeth extracted this past summer), postnasal drip and tin nitus. Eyes: Negative for visual disturbance. Respiratory: Positive for cough. Negative for apnea, chest tightness, shortness of breath a nd wheezing. Cardiovascular: Negative for chest pain, palpitations and leg swelling. Gastrointestinal: Positive for abdominal pain (had hernia surgery 07/19/2013) and constipat ion. Negative for nausea, vomiting, diarrhea, blood in stool, abdominal distention, anal ble eding and rectal pain. Genitourinary: Positive for difficulty urinating. Negative for urgency, frequency, hematuri a and decreased urine volume. Musculoskeletal: Positive for myalgias and back pain. Negative for joint swelling, arthralg ias and gait problem. Skin: Negative for color change and rash. Neurological: Positive for weakness (gets tired easily) and numbness (ocasionally). Negativ e for dizziness, tremors, seizures, syncope, speech difficulty (he talks softer), light-head edness and headaches. Hematological: Negative for adenopathy. Does not bruise/bleed easily. Psychiatric/Behavioral: Positive for confusion and sleep disturbance (gets up 2-3 times dur ing the night to use the bathroom). Negative for decreased concentration. The patient is not nervous/anxious. Objective: Physical Exam Constitutional: He is oriented to person, place, and time. He appears well-developed and we ll-nourished. Male individual without acute distress. Neck: No hepatojugular reflux and no JVD present. Carotid bruit is not present. Cardiovascular: Normal rate, regular rhythm, S1 normal, S2 normal, normal heart sounds, int act distal pulses and normal pulses. PMI is not displaced. Exam reveals no gallop, no S3, no S4, no distant heart sounds and no friction rub. No murmur heard. Pulmonary/Chest: Effort normal and breath sounds normal. No accessory muscle usage. No resp iratory distress. He has no wheezes. He has no rhonchi. He has no rales. Abdominal: Soft. Normal aorta and bowel sounds are normal. There is no tenderness. Neurological: He is alert and oriented to person, place, and time. Skin: No cyanosis. Nails show no clubbing. Psychiatric: He has a normal mood and affect. His mood appears not anxious. He does not exh ibit a depressed mood. BP 110/58 | Pulse 60 | Resp 16 | Ht 1.803 m (5' 11") | Wt 80.287 kg (177 lb) | BMI 24.69 kg /m2 ECG: Normal sinus rhythm, normal EKG. No results found for this basename: WBC, HBG, HCT, MCV, MCH, MCHC, PLTCOUNT, RBC Lab Results Component Value Date GLU 96 06/11/2013 NA 133 06/11/2013 K 4.2 06/11/2013 CL 97 06/11/2013 CO2 29 06/11/2013 CALCIUM 10.8 06/11/2013 ALKPHOS 73 06/11/2013 AST 17 06/11/2013 ALT 12 06/11/2013 BILITOT 0.4 06/11/2013 BUN 12 06/11/2013 EGFR 54 06/11/2013 Lab Results Component Value Date CHOL 175 06/11/2013 TRIG 39 06/11/2013 TRIG 39 06/11/2013 LDLCALC 93 06/11/2013 HDL 74.7 06/11/2013 HDL 74.7 06/11/2013 I personally reviewed records from another healthcare provider. Assessment: 1. Coronary artery disease: A. Left heart [...] remai ns in class I of the [place] [employer] functional class. 2. Hypertension: A. Today his blood pressure is well controlled. 3. Hyperlipidemia: A. He is on simvastatin 80 mg a day. His lipid profile from 06/11/13 looks fantast ic. Plan: 1. I I cut down the dose of aspirin to 81 mg a day. 2. Today, patient is doing well from cardiac standpoint. I will continue with the rest of medical regimen. 3. Followup in one year. Portions of this report were transcribed using voice recognition software. Every effort wa s made to ensure accuracy; however, inadvertent computerized pawn broker errors may be present. documented in this encounter Plan of Treatment +--------+---------+ + + + | Date | Type | Specialty | Care Team | Description | +--------+---------+ + + + | 02/14/ | Office | Cardiology | Bernice Antonio, | | | 2020 | Visit | | [address] | | | | | | [place], | | | | | | [place] [address] | | | | | | [phone] | | | | | | | | +--------+---------+ + + + + +------+--------+ + + | Name | Type | Priori | Associated Diagnoses | Order Schedule | | | | ty | | | + +------+--------+ + + | ECG 12 lead | ECG | Routin | Encounter for | Ordered: 07/25/2013 | | | | e | annual health | | | | | | examination CAD | | | | | | (coronary artery | | | | | | disease) HTN | | | | | | (hypertension) | | + +------+--------+ + + documented as of this encounter Visit Diagnoses + + | Diagnosis | + + | Encounter for annual health examination - Primary Routine general medical examination | | at a health care facility | + + | CAD (coronary artery disease) Coronary atherosclerosis of unspecified type of vessel, | | [place] or graft | + + | HTN (hypertension) Unspecified essential hypertension | + + documented in this encounter
--- OUTSIDE RECORDS SUMMARY | ~2020-01-10 | XMS | Encounter Summary ---
Demographics + + + | Address | [address] | | | [place] [address] | + + + | Home Phone | | + + + | Preferred Language | Unknown | + + + | Marital Status | | + + + | Samaritan Affiliation | Unknown | + + + | Race | Unknown | + + + | Ethnic Group | Unknown | + + + Author + + + | Author | [facility] | | | and [place]yana | + + + | Organization | [facility] | | [...] | | | | | [place] [address] | | + + + + + Care Team Providers + +------+ + | Care Shredding Machine Knife Changer Name | Role | Phone | + +------+ + | Mingo Burgos DO | PCP | | + +------+ + Encounter Details +--------+ + + + + | Date | Type | Department | Care Team | Description | +--------+ + + + + | 06/04/ | Abstract | [facility] [place] | Roderick Gill | | | 2013 | | PHYSIATRY [address] | [address] | | | | [address] | [address] [place] | | | | | [place] | [address] | | | | | [address] | | | | | | [phone] | | | +--------+ + + + [...] | | | | | | [place] [address] | | | | | | [phone] | | | | | | | | +--------+---------+ + + + documented as of this encounter Visit Diagnoses Not on filedocumented in this encounter"
--- OUTSIDE RECORDS SUMMARY | ~2020-01-10 | XMS | Encounter Summary ---
Demographics + + + | Address | [address] | | | [place] [address] | + + + | Home Phone [...] [place] | | | | | [address] | | + + + + + | Ronny Rene | ECON | Unknown | + | + + + + + | Char Woodard | ECON | Unknown | | + + + + + Care Team Providers + +------+ + | Care Continuous Vulcanizing Machine Operator Name | Role | Phone | + +------+ + | David Ferrera MD | PCP | | + +------+ + Encounter Details +--------+ + + + + | Date | Type | Department | Care Team | Description | +--------+ + + + + | 09/16/ | Procedure | Radiology/Imaging | | | | 2016 | Pass | Lab at [facility] [address] | | | | | | [address] [facility] | | | | | | for Health and | | | | | | Healing, [address], | | | | | | 3rd Floor | | | | | | [place], [place] | | | | | | [address] | | | | | | [phone] | | | +--------+ + + + [...]
--- OUTSIDE RECORDS SUMMARY | ~2020-01-10 | XMS | Encounter Summary ---
Demographics + + + | Address | [address] | | | [place] [address] | + + + | Home Phone [...] [place] | | | | | [address] | | + + + + + | Ronny Rene | ECON | Unknown | | + + + + + | Char Woodard | ECON | Unknown | | + + + + + Care Team Providers + +------+ + | Care Technical Assoc Name | Role | Phone | + [...] | +--------+ + + + + | 05/26/ | Documentati | Endoscopic | Lab, Gi Procedure | Medical Records | | 2016 | on | Procedural Unit at | | Review | | | | [address] | | | | | | [address] | | | | | | [place], | | | | | | [address] [facility] | | | | | | [place] [address] | | | | | | [phone] | | | +--------+ + + + [...]
--- OUTSIDE RECORDS SUMMARY | ~2020-01-10 | XMS | Encounter Summary ---
Demographics + + + | Address | [address] | | | [place] [address] | + + + | Home Phone [...] [place] | | | | | [address] | | + + + + + | Ronny Rene | ECON | Unknown | | + + + + + | Char Woodard | ECON | Unknown | | + + + + + Care Team Providers + +------+ + | Care Non Licensed Nuclear Plant Operator Name | Role | Phone | + +------+ + | Deondre Landis MD | PCP | | + +------+ + Encounter Details +--------+ + + + + | Date | Type | Department | Care Team | Description | +--------+ + + + + | 10/11/ | Telephone | Digestive Health | Vijay Akbar MD | | | 2018 | | [place] [address] [address] | [address] | | | | | [facility] | [facility], | | | | | [facility] and | [place] [address] | | | | | [place] [address] | [phone] | | | | | [place], [place] | | | | | | [address] | | | | | | [phone] | | | +--------+ + + + [...]
--- OUTSIDE RECORDS SUMMARY | ~2020-01-10 | XMS | Encounter Summary ---
Demographics + + + | Address | [address] | | | [place] [address] | + + + | Home Phone [...] [place] | | | | | [address] | | + + + + + | Ronny Rene | ECON | Unknown | | + + + + + | Char Woodard | ECON | Unknown | | + + + + + Care Team Providers + +------+ + | Care Graphic Illustrator Name | Role | Phone | + +------+ + | David Ferrera MD | PCP | | + +------+ + Encounter Details +--------+ + + + + | Date | Type | Department | Care Team | Description | +--------+ + + + + | 03/12/ | Hospital | Radiology/Imaging | Glenn Siegel MD | | | 2019 | Encounter | Lab at [facility] [address] | [address] [facility] | | | | | [facility] | [facility] | | | | | [facility] and | [place], [place] | | | | | [place] [address], | [address] | | | | | [address] [place] [address] | [phone] | | | | | [place], [place] | | | | | | [address] | | | | | | [phone] | | | +--------+ + + + [...]
--- OUTSIDE RECORDS SUMMARY | ~2020-01-10 | XMS | Encounter Summary ---
Demographics + + + | Address | [address] | | | [place] [address] | + + + | Home Phone | | + + + | Preferred Language | Unknown | + + + | Marital Status | | + + + | Jew Affiliation | Unknown | + + + | Race | Unknown | + + + | Ethnic Group | Unknown | + + + Author + + + | Author | [facility] | | | and [place] | + + + | Organization | [facility] [...] | | | | | [place] [address] | | + + + + + Care Team Providers + +------+ + | Care Manager Lsw Name | Role | Phone | + [...] + + | 11/07/ | Office | [facility] | Marisela Sialeonor, | Coronary artery | | 2019 | Visit | CARDIOLOGY [address] | disease, angina | | | | [place], | [place], | presence | | | | [place] [address] | [place] [address] | unspecified, | | | | [phone] | [phone] | unspecified vessel | | | | | | or lesion type, | | | | | | unspecified whether | | | | | | [place] or | | | | | | [...] encounter Progress Notes Bernice Antonio MD - 11/07/2018 9:30 AM PSTFormatting of this note might be [...] RESULTS reviewed during visit today primarily from [facility]: LIPID Lab Results Component Value Date [...] He is in a class I of [place] [employer] funct ional class. There is [...] today. A. Patient underwent a esophagectomy at [facility] on 03/27/15. He was to ld during [...] of, and in the presence of Bernice mason MD. I have reviewed and edited this note. Char Hermosillo, Fireworks Assembly Supervisor 11/07/2018 I, Bernice Antonio MD, personally performed the services described in this documentation, as scribed in my presence and it is both accurate and complete. Char Hermosillo, Med Ass t 11/07/2018 9:18 Electronically signed by: Bernice Antonio MD [facility] 11/07/2018 Portions of this chart may have been created with [employer] voice recognition software. Occasi onal wrong-word or [...] | | | | | | [place] [address] | | | | | | [phone] | | | | | | | [...] this | | | e | 9:17 AM | disease, angina | procedure are in the | | | | PST | presence | results section. | | | | | unspecified, | | | | | | unspecified vessel | | | | | | or lesion type, | | | | | | unspecified whether | | | | | | [place] or | | | | | | [...] encounter Results ECG 12 lead (11/07/2018 9:17 AM PST) + + + + + + [...] MD | | | | | | ([id number]) on 11/07/2018 | | | | | [...] + + LABS - EXTERNAL SCAN (11/06/2018 12:00 AM PST) + + + | Narrative | Performed At | + + + | Ordered by an | | | unspecified provider. | | + + + documented in this encounter Visit Diagnoses + + | Diagnosis | + + | Coronary artery disease, angina presence unspecified, unspecified vessel or lesion | | type, unspecified whether [place] or transplanted heart - Primary | + + documented in this encounter
--- OUTSIDE RECORDS SUMMARY | ~2020-01-10 | XMS | Encounter Summary ---
Demographics + + + | Address | [address] | | | [place] [address] | + + + | Home Phone [...] [place] | | | | | [address] | | + + + + + | Ronny Rene | ECON | Unknown | | + + + + + | Char Woodard | ECON | Unknown | | + + + + + Care Team Providers + +------+ + | Care Community Pharmacist Name | Role | Phone | + +------+ + | Deondre Landis MD | PCP | | + +------+ + Reason for Visit + + + | Reason | Comments | + + + | Follow-up visit | | + + + Consultation (Urgent) +--------+--------+ + + + + | Status | Reason | Specialty | Diagnoses / | Referred By | Referred To | | | | | Procedures | Contact | Contact | +--------+--------+ + + + + | Closed | | Surgery | Diagnoses | Enestvedt, | Raffy | | | | | Esophageal | Rubin George, | MD Vijay | | | | | adenocarcino | [address] | | | | | sly ([facility]) | [address] | Noel Charlton | | | | | Procedures | Latesha Soliz | Martínez [place], | | | | | CONSULT TO | [place], [place] | [place] | | | | | SURGERY - | [address] | [address] | | | | | GENERAL | Phone: | Phone: | | | | | | [phone] | [phone] | | | | | | Fax: | Fax: | | | | | | [phone] | [phone] | +--------+--------+ + + + + Encounter Details +--------+---------+ + + + | Date | Type | Department | Care Team | Description | +--------+---------+ + + + | 07/11/ | Office | Digestive Health | Vijay Akbar MD | Esophageal cancer | | 2015 | Visit | Center at [facility] [address] | [address] | (HCC) (Primary Dx) | | | | [facility] | Latesha Soliz [place], | | | | | [facility] and | [place] [address] | | | | | [place] [address] | [phone] | | | | | [place], [place] | | | | | | [address] | | | | | | [phone] | | | +--------+---------+ + + + [...] + + + | Blood Pressure | 178/83 | 07/11/2015 8:35 AM | | | | | PDT | | + + + + + | Pulse | 78 | 07/11/2015 8:35 AM | | | | | PDT | | + + + + + | Temperature | 36.8 C (98.3 F) | 07/11/2015 8:35 AM | | | | | PDT | | + + + + + | Respiratory Rate | 16 | 07/11/2015 8:35 AM | | | | | PDT | | + + + + + | Oxygen Saturation | 98% | 07/11/2015 8:35 AM | | | | | PDT | | + + + + + | Inhaled Oxygen | - | - | | | Concentration | | | | + + + + + | Weight | 77.1 kg (170 lb) | 07/11/2015 8:35 AM | | | | | PDT | | + + + + + | Height | 180.3 cm (5' 11") | 07/11/2015 8:35 AM | | | | | PDT | | + + + + + | Body Mass Index | 23.71 | 07/11/2015 8:35 AM | | | | | PDT | | + + + + + documented in this encounter Progress Notes Kenneth Daniel MD - 07/11/2015 9:04 AM PDT [facility] Department of Surgery Division of Red Surgery Clinic Note- Follow-Up Author: Wayne Daniel MD Attending Physician: Vijay Akbar MD 07/11/2015 Chief Complaint: Follow up MIS 3-field esophagectomy (03/27/15), post operative course comp licated by anastomotic leak managed by primary drainage (04/02/15) Subjective/Interval History: Junaid Jimenez is a 75 y.o. male patient who presents to clinic today feeling very well with no complaints. Last time in clinic, J tubes were d/c and he was adavanced to regular diet. Since that time, he has been tolerating solids well with only occasional dysphagia, but he i s able to "wash it down". He has been active and hunting, with good energy level. No nausea or vomiting, some constipation (stool every 2 days or so) but they are soft. No abdominal pa in and no use of opiates. Past Medical History Diagnosis Date GERD (gastroesophageal reflux disease) HTN (hypertension) Cheema's esophagus Knee pain, chronic Back pain, chronic ME (myocardial infarction) (HCC) s/p CABG x 2 Hearing loss bialteral hearing aids Esophageal adenocarcinoma (HCC) Unintentional weight loss Dysphagia Past Surgical History Procedure Laterality Date Cabg x 2 2007 Colonoscopy Shoulder surgery Right Back surgery x 4 Inguinal hernia repair Left Appendectomy Esophagectomy, laparscopic 03/28/2015 transhiatal esophagectomy, Dr. Akbar at [facility] Left neck incision and drainage Left 04/02/2015 2/2 anastomotic leak Laparoscopic placement of jejunostomy feeding tube 03/28/2015 Dr. Akbar, [facility] Egd (esophagogastroduodenoscopy) 03/28/2015 Dr. Akbar, [facility] Current Outpatient Prescriptions Medication Sig aspirin chewable 81 mg oral tablet,chewable 1 tablet by feeding tube route once daily. atorvastatin 80 mg oral tablet 1 tablet by feeding tube route once daily. omeprazole (FIRST-OMEPRAZOLE) 2 mg/mL oral suspension for reconstitution Give 20 mL by feeding tube route once daily for 30 days. ondansetron ODT (ZOFRAN ODT) 4 mg oral tablet,disintegrating Take 1 tablet by mouth jaclyn ry six hours as needed for nausea/vomiting. oxyCODONE, immediate release, 5 mg/5 mL oral solution 5 mL by feeding tube route every six hours as needed for moderate pain. No current facility-administered medications for this visit. Allergies Allergen Reactions Adhesive Tape Rash Paper tape is fine to use Family History Problem Relation Blood Disease Neg Hx Anesthesia Neg Hx Social History Narrative None on file REVIEW OF SYSTEMS: All 14 systems reviewed and negative except as noted above. OBJECTIVE: Vitals: BP 178/83 | Pulse 78 | Temp (Src) 36.8 C (98.3 F) (Oral) | RR 16 | Ht 1.803 m (5' 11") | Wt 77.111 kg (170 lb) | SpO2 98% | BMI 23.72 kg/(m^2) Physical Exam: General: Alert, healthy appearing, pleasant, in no apparent distress Pulmonary: Clear to auscultation bilaterally with good air movement Cardiovascular: Regular rate and rhythm with no murmurs appreciated Abdomen: Soft, flat and non-tender. Incision: Laparoscopic abdominal incisions healed well; thorax incisions healed well. Forme r J tube site closed. Extremities: Warm and well perfused Labs/Cultures/Pathology: Pertinent pathology: D: Esophagus and stomach, partial esophagectomy and gastrectomy: - Extensive high-grade dysplasia with accompanying low-grade dysplasia and intestinal metaplasia (spanning approx. 9-10 cm); negative for invasive component - Specimen reviewed in-toto - Fourteen lymph nodes with no diagnostic abnormality (0) - Gastric and esophageal mucosal margins free of dysplasia Imaging/Diagnostic Studies: CT Chest, abdomen and pelvis (07/03/15) ASSESSMENT: Junaid Jimenez is a 75 y.o. male patient who presents in follow up following MIS 3 field eso phagectomy, post operative course complicated by leak, with final pathology notable for no i nvasive disease. He is doing very well functionally, with weight gain at today's visit. He h as no concerning subjective complaints, and an unremarkable CT scan. He can return to clinic in 6 months for routine follow up and get a CT scan in one year. PLAN: 1. RTC [address] year 3. Continue PO intake 4. Continue physical activity The patient was seen and discussed with attending physician, Dr. Akbar, who is in agreement with the above plan of care. Wayne Daniel MD 07/11/2015 9:04 AM General Surgery, R1 STAFF: I personally interviewed the patient, performed [...]
--- OUTSIDE RECORDS SUMMARY | ~2020-01-10 | XMS | Clinical Summary ---
Demographics + + + | Address | [address] | | | [place] [address] | + + + | Home Phone | | + + + | Preferred Language | Unknown | + + + | Marital Status | | + + + | Hoahaoism Affiliation | Unknown | + + + | Race | Unknown | + + + | Ethnic Group | Unknown | + + + Author + + + | Author | [facility] | | | and [place] | + + + | Organization | [facility] | | | and [place] | + + + | Address | Unknown | + + + | Phone | Unavailable | + + + Support + + + + + | Name | Relationship | Address | Phone | + + + + + | Selena Jimenez | ECON | [id number] | | | | | [place] [address] | | + + + + + Care Team Providers + +------+ + | Care Veneer Sorter Name | Role | Phone | [...] [place], | | | | | | [place] [address] | | | | | | [phone] | | | | | | | [...] +--------+ +---------+--------+ | MEDICARE | MEDICA | [id number] | 09/19/18 | [phone] | | Medica | | | RE | | 87-Pre | 5 | | re | | | PART A | | sent | | | | | | AND B | | | | | | + +--------+ +--------+ +---------+--------+ | CIGNA | CIGNA | [id number] | 10/25/19 | [phone] | | Indemn [...] | 1940 | [phone] | [place] [address] | | | hayley | | | 7 (Home) | | + +--------+ +--------+ + + Advance Directives + + + + + | Type | Date Recorded | Patient | Explanation | | | | Rivet Tester | | + + + + + | Power of | | | | | Supervisor Press Room | | | | + + + + + | Advance | 06/04/2014 10:51 | | | | Directive | AM | | | + + + + +
--- OUTSIDE RECORDS SUMMARY | ~2020-01-10 | XMS | Encounter Summary ---
Demographics + + + | Address | [address] | | | [place] [address] | + + + | Home Phone [...] + + + | Author | [facility] | + + + | Organization | [facility] | + + + | Address | Unknown | + + + | Phone | Unavailable | + + + Support + + + + + | Name | Relationship | Address | Phone | + + + + + | Selena Jimenez | ECON | [address] | | | | | [place] | | | | | [address] | | + + + + + | Ronny Rene | ECON | Unknown | | + + + + + | Char Woodard | ECON | Unknown | | + + + + + Care Team Providers + +------+ + | Care Wholesale Account Executive Name | Role | Phone | + +------+ + | Deondre Landis MD | PCP | | + +------+ + Reason for Visit + + + | Reason | Comments | + + + | Referral To | | | Gastroenterology | | + + + Encounter Details +--------+ + + + + | Date | Type | Department | Care Team | Description | +--------+ + + + + | 09/29/ | Telephone | Digestive Health | Vijay Akbar MD | Referral To | | 2017 | | Center [place] [address] [address] | [address] | Gastroenterology | | | | [facility] | [facility], | | | | | [facility] and | [place] [address] | | | | | [place] [address] | [phone] | | | | | [place], [place] | | | | | | [address] | | | | | | [phone] | | | +--------+ + + + [...]
--- OUTSIDE RECORDS SUMMARY | ~2020-01-10 | XMS | Encounter Summary ---
Demographics + + + | Address | [address] | | | [place] [address] | + + + | Home Phone | | + + + | Preferred Language | Unknown | + + + | Marital Status | | + + + | Restorationist Affiliation | NON | + + + [...] [place] | | | | | [address] | | + + + + + | Ronny Rene | ECON | Unknown | | + + + + + | Char Woodard | ECON | Unknown | | + + + + + Care Team Providers + +------+ + | Care Adult School Teacher Name | Role | Phone | + +------+ + | Deondre Landis MD | PCP | | + +------+ + Reason for Visit + + + | Reason | Comments | + + + | Outside Records | [facility] | | Received | | + + + Encounter Details +--------+ + + + + | Date | Type | Department | Care Team | Description | +--------+ + + + + | 05/20/ | Abstract | Digestive Health | Vijay Akbar MD | Outside Records | | 2016 | | Center at [facility] [address] | [address] | Received | | | | [facility] | [facility] | | | | for Health and | [place] [address] | | | | | [facility], [place] [address] | [phone] | | | | | [place], [place] | | | | | | [address] | | | | | | [phone] | | | +--------+ + + + [...]
--- OUTSIDE RECORDS SUMMARY | ~2020-01-10 | XMS | Encounter Summary ---
Demographics + + + | Address | [address] | | | [place] [address] | + + + | Home Phone [...] [place] | | | | | [address] | | + + + + + | Ronny Rene | ECON | Unknown | | + + + + + | Char Woodard | ECON | Unknown | | + + + + + Care Team Providers + +------+ + | Care Production Line Worker Name | Role | Phone | [...] | +--------+ + + + + | 10/19/ | Abstract | Dig[facility]ive Health | Vijay Akbar MD | Medical Records | | 2017 | | Center [place] [address] [address] | [address] | Review | | | | [facility] | [facility], | | | | | [facility] and | [place] [address] | | | | | [facility] [place] [address] | [phone] | | | | | [place], [place] | | | | | | [address] | | | | | | [phone] | | | +--------+ + + + [...]
--- OUTSIDE RECORDS SUMMARY | ~2020-01-10 | XMS | Encounter Summary ---
Demographics + + + | Address | [address] | | | [place] [address] | + + + | Home Phone [...] [place] | | | | | [address] | | + + + + + | Ronny Rene | ECON | Unknown | + | + + + + + | Char Woodard | ECON | Unknown | | + + + + + Care Team Providers + +------+ + | Care Frame Polisher Name | Role | Phone | + +------+ + | David Ferrera MD | PCP | | + +------+ + Reason for Visit + + + | Reason | Comments | + + + | Erroneous Encounter | | | - Disregard | | + + + Encounter Details +--------+ + + + + | Date | Type | Department | Care Team | Description | +--------+ + + + + | 04/07/ | Telephone | Digestive Health | Vijay Akbar MD | Erroneous Encounter | | 2014 | | Center at [facility] [address] | [address] | - Disregard | | | | [address] [facility] | [facility] | | | | | [facility] and | [place] [address] | | | | | [place] [address] | [phone] | | | | | [place], [place] | | | | | | [address] | | | | | | [phone] | | | +--------+ + + + [...]
--- OUTSIDE RECORDS SUMMARY | ~2020-01-10 | XMS | Encounter Summary ---
Demographics + + + | Address | [address] | | | [place] [address] | + + + | Home Phone | | + + + | Preferred Language | Unknown | + + + | Marital Status | | + + + | Catholic Affiliation | Unknown | + + + | Race | Unknown | + + + | Ethnic Group | Unknown | + + + Author + + + | Author | [facility] | | | and [place]yana | + + + | Organization | [facility] | | | and [place] | + + + | Address | Unknown | + + + | Phone | Unavailable | + + + Support + + + + + | Name | Relationship | Address | Phone | + + + + + | Selena Jimenez | ECON | [id number] | | | | | [place] [address] | | + + + + + Care Team Providers + +------+ + | Care Assisted Living Associate Name | Role | Phone | [...] | | | | Thoracic or | [place], | | | | | | lumbosacral | Roderick Dong MD | | | | | | neuritis or | [address] | | | | | | | [place] | | | | | | radiculitis, | [place] | | | | | | unspecified | [address] | | | | | | | Phone: | | | | | | Arthrodesis | [phone] | | | | | | status DDD | Fax: | | | | | | (degenerativ | [phone] | | | | | | e [...] | +--------+ + + + + | 06/27/ | Orders Only | [facility] [place] | Roderick Gill | S/P lumbar spinal | | 2013 | | PHYSIATRY [address] | TMD [address] | fusion (Primary Dx); | | | | [address] | [address] [place], [place] | Lumbar | | | | [place], [place] | [address] | radiculopathy/neurog | | | | [address] | | enic claudication; | | | | [phone] | | DDD (degenerative | | | | | | disc disease), | | | | | | lumbar | +--------+ + + + + Social [...] [place], | | | | | | [place] [address] | | | | | | [phone] | | | | | | | | +--------+---------+ + + + + +---------+--------+ + + | Name | Type | Priori | Associated Diagnoses | Order Schedule | | | | ty | | | + +---------+--------+ + + | [place] Injection for CT | Imaging | Routin | S/P lumbar spinal | Expected: | | Myelogram | | e | fusion Lumbar | 06/27/2014, Expires: | | | | | radiculopathy/neurog | 06/27/2015 | | | | | enic claudication | | | | | | DDD (degenerative | | | | | | disc disease), | | | | | | lumbar | | + +---------+--------+ + + | CT Myelography | Imaging | Routin | S/P lumbar spinal | Expected: | | Lumbar Spine | | e | fusion Lumbar | 06/27/2014, Expires: | | | | | radiculopathy/neurog | 06/27/2015 | | | | | enic claudication | | | | | | DDD (degenerative | | | | | | disc disease), | | | | | | lumbar | | + +---------+--------+ + + documented as of this encounter Visit Diagnoses + + | Diagnosis | + + | S/P lumbar spinal fusion - Primary Arthrodesis status | + + | Lumbar radiculopathy/neurogenic claudication Thoracic or lumbosacral neuritis or | | radiculitis, unspecified | + + | DDD (degenerative disc disease), lumbar Degeneration of lumbar or lumbosacral | | intervertebral disc | + + documented in this encounter"
--- OUTSIDE RECORDS SUMMARY | ~2020-01-10 | XMS | Encounter Summary ---
Demographics + + + | Address | [address] | | | [place] [address] | + + + | Home Phone | | + + + | Preferred Language | Unknown | + + + | Marital Status | | + + + | Taoist Affiliation | Unknown | + + + | Race | Unknown | + + + | Ethnic Group | Unknown | + + + Author + + + | Author | [facility] | | | and [place] | + + + | Organization | [facility] | | | and [place] | + + + | Address | Unknown | + + + | Phone | Unavailable | + + + Support + + + + + | Name | Relationship | Address | Phone | + + + + + | Selena Jimenez | ECON | [id number] | | | | | [place] [address] | | + + + + + Care Team Providers + +------+ + | Care Rail Walker Name | Role | Phone | + [...] + + | 07/25/ | Office | [facility] | Bernice Antonio, | Encounter for annual | | 2012 | Visit | CARDIOLOGY [address] | [address] [facility] | health examination | | | | [place], | [place], | (Primary Dx); CAD | | | | [place] [address] | [place] [address] | (coronary artery | | | | [phone] | [phone] | disease); HTN | | | | [...] Dr. Willis Coronary artery bypass graft 2005 [place], [place]. Right rotator cuff surgery History reviewed. [...] remai ns in class I of the [place] [employer] functional class. 2. Hypertension: A. [...] made to ensure accuracy; however, inadvertent computerized sample preparation supervisor errors may be present. documented in this encounter Plan of Treatment +--------+---------+ + + + | Date | Type | Specialty | Care Team | Description | +--------+---------+ + + + | 02/14/ | Office | Cardiology | Bernice Antonio, | | | 2020 | Visit | | [address] [place] | | | | | | [place], | | | | | | [place] [address] | | | | | | [phone] | | | | | | | [...] of unspecified type of vessel, | | inupiat or graft | + + | HTN (hypertension) Unspecified essential hypertension | + + documented in this encounter
--- OUTSIDE RECORDS SUMMARY | ~2020-01-10 | XMS | Encounter Summary ---
Demographics + + + | Address | [address] | | | [place] [address] | + + + | Home Phone [...] [place] | | | | | [address] | | + + + + + | Ronny Rene | ECON | Unknown | | + + + + + | Char Woodard | ECON | Unknown | | + + + + + Care Team Providers + +------+ + | Care Soap Mixer Name | Role | Phone | + +------+ + | Deondre Landis MD | PCP | | + +------+ + Encounter Details +--------+ + + + + | Date | Type | Department | Care Team | Description | +--------+ + + + + | 08/27/ | Hospital | Diagnostic Imaging | Char Castillo, | | | 2017 | Encounter | Services [address] | [address] | | | | | [address] | [place], [place] | | | | | [place], [place] | [address] | | | | | [address] | [phone] | | | | | | | [...] + +--------+ + + + | OUTSIDE BODY - READ | Routin | 08/27/2017 | Liver mass | Results for this | | REQUEST | e | 12:00 AM | | procedure are in the | | | | PST | | results section. | + +--------+ + + + documented in this encounter Results OUTSIDE BODY - READ [...] Diagnosis | + + | Liver mass Unspecified disorder of liver | + + documented in this encounter"
--- OUTSIDE RECORDS SUMMARY | ~2020-01-10 | XMS | Encounter Summary ---
Demographics + + + | Address | [address] | | | [place] [address] | + + + | Home Phone [...] + + + | Author | [facility] | + + + | Organization | [facility] | + + + | Address | Unknown | + + + | Phone | Unavailable | + + + Support + + + + + | Name | Relationship | Address | Phone | + + + + + | Selena Jimenez | ECON | [address] | | | | | [place] | | | | | [address] | | + + + + + | Ronny Rene | ECON | Unknown | | + + + + + | Char Woodard | ECON | Unknown | | + + + + + Care Team Providers + +------+ + | Care Fiscal Services Manager Name | Role | Phone | + +------+ + | Deondre Landis MD | PCP | | + +------+ + Encounter Details +--------+ + + + + | Date | Type | Department | Care Team | Description | +--------+ + + + + | 10/13/ | Telephone | [facility] | Char Castillo, | | | 2017 | | Center at [facility] [address] | MD [address] | | | | | [facility] | [address] [place], [place] | | | | | [facility] and | [address] | | | | | [facility] 2 | [phone] | | | | | [place], [place] | | | | | | [address] | | | | | | [phone] | | | +--------+ + + + [...]
--- OUTSIDE RECORDS SUMMARY | ~2020-01-10 | XMS | Encounter Summary ---
Demographics + + + | Address | [address] | | | [place] [address] | + + + | Home Phone | | + + + | Preferred Language | Unknown | + + + | Marital Status | | + + + | Sabianist Affiliation | Unknown | + + + | Race | Unknown | + + + | Ethnic Group | Unknown | + + + Author + + + | Author | [facility] | | | and [place]yana | + + + | Organization | [facility] | | | and [place] | + + + | Address | Unknown | + + + | Phone | Unavailable | + + + Support + + + + + | Name | Relationship | Address | Phone | + + + + + | Selena Jimenez | ECON | [id number] | | | | | [place] [address] | | + + + + + Care Team Providers + +------+ + | Care Quantitative Research Analyst Name | Role | Phone | [...] | 05/07/ | Refill | [facility] [place] | Bernice Antonio, | Medication Refill | | 2012 | | CARDIOLOGY [address] | MD [address] [place] | | | | | [place], | [place], | | | | | [place] [address] | [place] [address] | | | | | [phone] | [phone] | | | | | | | [...] | | | | | [place], | | | | | | [place] [address] | | | | | | [phone] | | | | | | | | +--------+---------+ + + + documented as of this encounter Visit Diagnoses Not on filedocumented in this encounter"
--- OUTSIDE RECORDS SUMMARY | ~2020-01-10 | XMS | Encounter Summary ---
Demographics + + + | Address | [address] | | | [place] [address] | + + + | Home Phone | | + + + | Preferred Language | Unknown | + + + | Marital Status | | + + + | Latter-Day Affiliation | Unknown | + + + | Race | Unknown | + + + | Ethnic Group | Unknown | + + + Author + + + | Author | [facility] | | | and [place] | + + + | Organization | [facility] | | | and [...] | | | | | [place] [address] | | + + + + + Care Team Providers + +------+ + | Care Drier Attendant Name | Role | Phone | + +------+ + PCP | Unavailable | + +------+ + Encounter Details +--------+ + + + + | Date | Type | Department | Care Team | Description | +--------+ + + + + | 01/14/ | Hospital [facility] | Yonas Cyr, | | | 2007 | Encounter | [facility] | MD [address] | | | | | LABORATORY [address] | [address], | | | | | [address] [place] | [place] [address] | | | | | [address] | [phone] | | | | | [phone] | | | +--------+ + + + [...] 2019 | Visit | | [address] | | | | | | [place], | | | | | | [place] [address] | | | | | | [phone] | | | | | | | | +--------+---------+ + + + documented as of this encounter Visit Diagnoses Not on filedocumented in this encounter"
--- OUTSIDE RECORDS SUMMARY | ~2020-01-10 | XMS | Encounter Summary ---
Demographics + + + | Address | [address] | | | [place] [address] | + + + | Home Phone | | + + + | Preferred Language | Unknown | + + + | Marital Status | | + + + | Caodaism Affiliation | Unknown | + + + | Race | Unknown | + + + | Ethnic Group | Unknown | + + + Author + + + | Author | [facility] | | | and Tobyana | + + + | Organization | [facility] | | | and [place] | + + + | Address | Unknown | + + + | Phone | Unavailable | + + + Support + + + + + | Name | Relationship | Address | Phone | + + + + + | Selena Jimenez | ECON | [id number] | | | | | [place] [address] | | + + + + + Care Team Providers + +------+ + | Care Certified Medicine Aide Name | Role | Phone | [...] CARDIOLOGY [address] | MD [address] | disease) (Primary | | | | [place], | [place], | Dx); Hypertension; | | | | [place] [address] | [place] [address] | Hyperlipidemia; | | | | [phone] | [phone] | Chest pain; | | | | [...] 2019 | Visit | | MD [facility] | | | | | | [place], | | | | | | [place] [address] | | | | | | [phone] | | | | | | | | +--------+---------+ + + + documented as of this encounter Visit Diagnoses + + | Diagnosis | + + | CAD - Primary Coronary atherosclerosis of unspecified type of vessel, cahu[place] or graft | + + | Hypertension Unspecified essential hypertension | + + | Hyperlipidemia Other and unspecified hyperlipidemia | + + | Chest pain Chest pain, unspecified | + + | Esophageal reflux | + + | Tobacco use disorder | + + | Obesity, unspecified | + + documented in this encounter
--- OUTSIDE RECORDS SUMMARY | ~2020-01-10 | XMS | Encounter Summary ---
Demographics + + + | Address | [address] | | | [place] [address] | + + + | Home Phone [...] [place] | | | | | [address] | | + + + + + | Ronny Rene | ECON | Unknown | | + + + + + | Char Woodard | ECON | Unknown | | + + + + + Care Team Providers + +------+ + | Care Beading Installer Name | Role | Phone | + [...] Event | [address] | MD [address] | | | | | [facility] | [address] | | | | | Hospital Admitting | [place], [place] | | | | | Desk Located on the | [address] | | | | | 9th floor | [phone] | | | | | [place], [place] | | | | | | [address] | Nico Alvarado MD | | +--------+ [...] Tube | J-tube; Abdomen LL; 12 | Posrha Duran RN | | +--------+ + + [...] | | | | INTRAPROCEDURE PRN, Starting Akti | | PM PDT | | | [...]
--- OUTSIDE RECORDS SUMMARY | ~2020-01-10 | XMS | Encounter Summary ---
Demographics + + + | Address | [address] | | | [place] [address] | + + + | Home Phone | | + + + | Preferred Language | Unknown | + + + | Marital Status | | + + + | Baptist Affiliation | NON | + + + | Race | White | + + + | Ethnic Group | Not or | + + + Author + + + | Author | [facility] | + + + | Organization | [facility] | + + + | Address | Unknown | + + + | Phone | Unavailable | + + + Support + + + + + | Name | Relationship | Address | Phone | + + + + + | Selena Jimenez | ECON | [address] | | | | | [place] | | | | | [address] | | + + + + + | Ronny Rene | ECON | Unknown | | + + + + + | Char Woodard | ECON | Unknown | | + + + + + Care Team Providers + +------+ + | Care Flame Cutting Machine Operator Name | Role | Phone [...] | | | cancer (HCC) | [address] [facility] | | | | | | Procedures | [address] | | | | | | CONSULT TO | Rd | | | | | | NON - [facility] | [place], [place] | | | | | | PROVIDER | [address] | | | | | | | Phone: | | | | | | | [phone] | | | | | | | Fax: | | | | | | | [phone] | | +--------+--------+ + + + + [...] | | 2015 | | Center at [facility] [address] | [address] | | | | | [facility] | [address] Sol[address] [facility] | | | | | [facility] and | [place] [address] | | | | | [place] [address] | [phone] | | | | | [place], [place] | | | | | | [address] | | | | | | [phone] | | | +--------+ + + + [...]
--- OUTSIDE RECORDS SUMMARY | ~2020-01-10 | XMS | Encounter Summary ---
Demographics + + + | Address | [address] | | | [place] [address] | + + + | Home Phone | | + + + | Preferred Language | Unknown | + + + | Marital Status | | + + + | Baptist Affiliation | Unknown | + + + | Race | Unknown | + + + | Ethnic Group | Unknown | + + + Author + + + | Author | [facility] | | | and Tobyana | + + + | Organization | [facility] | | | and [place] | + + + | Address | Unknown | + + + | Phone | Unavailable | + + + Support + + + + + | Name | Relationship | Address | Phone | + + + + + | Selena Jimenez | ECON | [address] | | | | | [place] [address] | | + + + + + Care Team Providers + +------+ + | Care Counter Intelligence Name | Role | Phone | + [...] + + | 11/30/ | Telephone | [facility] | Bernice Antonio, | Blood Pressure Check | | 2018 | | CARDIOLOGY [address] | MD [address] [facility] | (Screening) (Blood | | | | [place], | [place], | pressure log from | | | | [place] [address] | [place] [address] | 11/07-11/21) | | | | [phone] | [phone] | | | | | | | [...] [place], | | | | | | [place] [address] | | | | | | [phone] | | | | | | | | +--------+---------+ + + + + +------+--------+ + + | Name | Type | Priori | Associated Diagnoses | Order Schedule | | | | ty | | | + +------+--------+ + + | Basic Metabolic | Lab | Routin | Mixed | Expected: | | Panel | | e | hyperlipidemia | 12/07/2018, Expires: | | | | | Essential | 11/30/2019 | | | | | hypertension | | | | | | Coronary artery | | | | | | disease, angina | | | | | | presence | | | | | | unspecified, | | | | | | unspecified vessel | | | | | | or lesion type, | | | | | | unspecified whether | | | | | | [place] or | | | | | | transplanted heart | | + +------+--------+ + + documented as of this encounter Visit Diagnoses + + | Diagnosis | + + | Mixed hyperlipidemia - Primary | + + | Essential hypertension Unspecified essential hypertension | + + | Coronary artery disease, angina presence unspecified, unspecified vessel or lesion | | type, unspecified whether [place] or transplanted heart | + + documented in this encounter"
--- OUTSIDE RECORDS SUMMARY | ~2020-01-10 | XMS | Encounter Summary ---
Demographics + + + | Address | [address] | | | [place] [address] | + + + | Home Phone | | + + + | Preferred Language | Unknown | + + + | Marital Status | | + + + | Baptist Affiliation | Unknown | + + + | Race | Unknown | + + + | Ethnic Group | Unknown | + + + Author + + + | Author | [facility] | | | and Tobyana | + + + | Organization | [facility] | | [...] | | | | | [place] [address] | | + + + + + Care Team Providers + +------+ + | Care Cathode Washer Name | Role | Phone | + +------+ + | Mingo Burgos DO | PCP | | + +------+ + Reason for Visit + + + | Reason | Comments | + + + | Shoulder Pain | Bilateral shoulder pain, left worse than right | + + + | Back Pain | Multiple prior surgeries | + + + | Knee Pain | Bilateral | + + + Encounter Details +--------+---------+ + + + | Date | Type | Department | Care Team | Description | +--------+---------+ + + + | 07/16/ | Office | [facility] | Roderick Gill | Knee pain, bilateral | | 2013 | Visit | PHYSIATRY [address] | MD [address] | (Primary Dx) | | | | [address] | [address] [place] | | | | | [place] | [address] | | | | | [address] | | | | | | [phone] | | | +--------+---------+ + + + [...] + + + | Blood Pressure | 160/78 | 07/16/2014 8:51 AM | | | | | PDT | | + + + + + | Pulse | 80 | 07/16/2014 8:51 AM | | | | | PDT [...] Weight | 77.1 kg (170 lb) | 07/16/2014 8:51 AM | | | | | PDT | | + + + + + | Height | 172.7 cm (5' 8") | 07/16/2014 8:51 AM | | | | | PDT | | + + + + + | Body Mass Index | 25.85 | 07/16/2014 8:51 AM | | | | | PDT | | + + + + + documented in this encounter Patient Instructions Patient Instructions Roderick Gill MD - 07/16/2014 9:35 AM PDTIce the area as needed for 15-20 minutes several times over the next few days. Watch for signs of infection. Jarek l with questions or concerns. documented in this encounter Progress Notes Roderick Gill MD - 07/16/2014 9:15 AM PDT CHIEF COMPLAINT: Chief Complaint Patient presents with Shoulder Pain Bilateral shoulder pain, left worse than right Back Pain Multiple prior surgeries Knee Pain Bilateral HISTORY OF PRESENT ILLNESS: The patient is a 74 y.o. male being seen today in follow-up fo r several pain issues. He was seen previously at the request of Dr. Mingo Burgos for compla ints of bilateral leg weakness that began over 3-4 months ago. He has had chronic low back issues for many years. The current symptoms began without any known incident, but he and hi s believe this is related to his back and having had lumbar surgery x 5, ranging from t 1979's to 1989's. Since the back and leg symptoms began, he has noticed that the symptoms have improved recen tly. Previously the pain was a tingling feeling to the bilateral legs. He rated the pain as severe. Now he reports a mild ache in the knees but otherwise is not having a lot of leg sy mptoms. He is having a lot of bilateral shoulder pain. He has had a prior rotator cuff repair on t he right. Recent x-rays showed no significant arthritis. His Knee symptoms worsen with getting up and down from a chair. The shoulder symptoms are worse with any over head activity. His symptoms improve with nothing in particular. He does not report much weakness of the legs. He does not report numbness of the legs at th is time. He does not have bowel and bladder dysfunction. He does not have saddle anesthes ia. Treatments for the back complaints have included 4 laminectomy surgeries in the with two rods placed in 1989. He uses Meloxicam for pain relief. The patient also reports to have bilateral shoulder pain. He reports having rotator cuff s urgery on the right in the past. He denies significant neck pain or radicular symptoms into the upper extremities. Patient's medications, allergies, past medical, surgical, social and family histories were reviewed and updated as appropriate. CURRENT MEDICATIONS: Current Outpatient Prescriptions Medication Sig Dispense Refill amLODIPine (NORVASC) 5 mg tablet TAKE ONE TABLET BY MOUTH EVERY DAY 30 tablet 6 aspirin 325 mg EC tablet Take 325 mg by mouth Daily. atorvaSTATin (LIPITOR) 80 MG tablet Take 80 mg by mouth nightly. Calcium Carbonate-Vitamin D (CALCIUM + D) 600-200 [...] ALLERGIES: Allergies Allergen Reactions Adhesive & Tape REVIEW OF SYSTEMS: GENERALLY: No fever, chills, [...] no rheumatoid arthritis PHYSICAL EXAMINATION: Blood pressure 160/78, pulse 80, height 1.727 m (5' 8"), weight 77.111 kg (170 lb). Body ma ss index is 25.85 kg/(m^2). 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 He has appropriate fund of knowledge [...] without difficulty. T here was no redness, effusion or warmth in the knees. He did have bilateral joint line tend erness in the knees. He had decreased ROM of the lumbar spine. Flexion was limited to approximately 45 degrees, extension was very limited, not even able to get to neutral. Shoulder examination shows decreased range of motion [...] was negative. RADIOGRAPHIC REVIEW: The patient did have recent imaging to review today. These included a CT lumbar, x-rays of both shoulders and of the lumbar spine. These show abraham placement with cerclage wires L4-S1 with a solid bony fusion. The x-rays do not show significant arthritis. There is an ancho r from the prior RTC repair on the right. ASSESSMENT: 1. Shoulder pain, bilateral - appears most consistent with impingement or tendonitis. 2. DDD (degenerative disc disease), lumbar S/P lumbar spinal fusion 3. Chronic low back pain - improved recently 4. Lumbar radiculopathy/neurogenic claudication 5. Bilateral knee pain PLAN: . The pain in the shoulders seems to be most consistent with impingement syndrome/rotator cuff tendonitis. He has had a prior rotator cuff surgery on the right. I did feel that sub acromial steroid injections may be of benefit and these were performed today. Description of procedure: After the patient gave consent for the procedure the areas for i njection on both shoulders were located by palpation and were marked. The areas were then p repped with Betadine swabs and alcohol. A 25 gauge 1 1/2 inch needle was then inserted into the subacromial space on the right. Attempted aspiration showed no fluid in the needle hub . A combination of 1 mL of 40 mg/mL Kenalog and 2 mL each of 0.5% Bupivicaine and 1% Lidoca ine was injected. The procedure was then performed on the other side using the same techniq ue. The patient tolerated the procedures well and was instructed to ice the areas for 15-20 min utes several times over the next few days and to watch for any signs of infection. 3. The patient's leg symptoms seem to have resolved for the most part. Currently the only leg pain he is describing is bilateral knee pain which sounds like arthritis. I offered to manage that issue but it sounded like he would like to have treatment closer to home. He w ill discuss this with Dr. Burgos and will work on getting knee x-rays and possibly a referra l to an orthopedist. 4. He did not want any treatment for the low back at this point. If the prior symptoms re turn I would be happy to see him again. ELECTRONICALLY SIGNED BY: Roderick Gill MD, 07/16/2014 documented in this encounter Plan of Treatment +--------+---------+ + + + | Date | Type | Specialty | Care Team | Description | +--------+---------+ + + + | 02/14/ | Office | Cardiology | Bernice Antonio, | | | 2019 | Visit | | [address] [place] [address] | | | | | | [place], | | | | | | [place] [address] | | | | | | [phone] | | | | | | | | +--------+---------+ + + + documented as of this encounter Visit Diagnoses + + | Diagnosis | + + | Knee pain, bilateral - Primary Pain in joint, lower leg | + + documented in this encounter
--- OUTSIDE RECORDS SUMMARY | ~2020-01-10 | XMS | Encounter Summary ---
Demographics + + + | Address | [address] | | | [place] [address] | + + + | Home Phone | | + + + | Preferred Language | Unknown | + + + | Marital Status | | + + + | Sabianist Affiliation | NON | + + + [...] [place] | | | | | [address] | | + + + + + | Ronny Rene | ECON | Unknown | | + + + + + | Char Woodard | ECON | Unknown | | + + + + + Care Team Providers + +------+ + | Care Director Of Pediatric Rehabilitation Name | Role | Phone | + +------+ + | Deondre Landis MD | PCP | | + +------+ + Reason for Visit + + + | Reason | Comments | + + + | Medical Records | [facility] 04/28/15 FYI (missed [...] 2015 | | Center at [facility] [address] | [address] | Review ([facility] - | | | | [address] [place] | [place], | OUTSIDE | | | | for Health and | [place] [address] | COMMUNICATION | | | | Healing, [address] | [phone] | 04/28/15 FYI (missed | | | | [place], [place] | | visit notification)) | | | | [address] | | | | | | [phone] | | | +--------+ + + + [...]
--- OUTSIDE RECORDS SUMMARY | ~2020-01-10 | XMS | Encounter Summary ---
Demographics + + + | Address | [address] | | | [place] [address] | + + + | Home Phone | | + + + | Preferred Language | Unknown | + + + | Marital Status | | + + + | Anglican Affiliation | NON | + + + | Race | White | + + + | Ethnic Group | Not or | + + + Author + + + | Author | [facility] | + + + | Organization | [facility] | + + + | Address | Unknown | + + + | Phone | Unavailable | + + + Support + + + + + | Name | Relationship | Address | Phone | + + + + + | Selena Jimenez | ECON | [address] | | | | | [place] | | | | | [address] | | + + + + + | Ronny Rene | ECON | Unknown | | + + + + + | Char Woodard | ECON | Unknown | | + + + + + Care Team Providers + +------+ + | Care Pupil Personnel Worker Name | Role | Phone | [...] + + + + | 01/30/ | Anesthesia | [facility] | Randal Hernandez MD | | | 2019 | Event | [facility] | [address] | | | | | and Healing Surgery | [place], | | | | | Center Admitting | [place] [address] | | | | | Desk Located on the | [phone] | | | | | 4th floor [address] | | | | | | [address] [place], | [place] | | | | | [place] [address] | [address] | | | | | | [place], | | | | | | [place] [address] | | | | | | [phone] | | | | | | | | +--------+ + + + + Anesthesia Record + + + + + | Procedure Name | Responsible | Anesthesia Start | Anesthesia Stop Time | | | Anesthesiologist | Time | | + + + + + | RIGHT OPEN REDUCTION | Randal Hernandez MD | 01/30/19 0953 | 01/30/19 1603 | | WITH INTERNAL | | | [...] | 1 | Quick Note | Dr. Christal shepherd paralysis is not necessary for this procedure. [...] | Total | + + + | fentaNYL | 150 mcg | + + + | ropivacaine 0.5 % | 20 mL | + + + | PHENYLEPHrine | 800 mcg | + + + | rocuronium | 40 mg | + + + | ceFAZolin (ANCEF) injection 2 g | 2 g | + + + | PHENYLEPHrine INF (25mg/250mL) | 6,507.6 mcg | + + + | tranexamic acid | 2,000 mg | + + + | ePHEDrine | 10 mg | + + + | lidocaine 2% | 40 mg | + + + | propofol | 120 mg | + + + | succinylcholine | 100 mg | + + + | neostigmine vial | 3 mg | + + + | glycopyrrolate | 0.5 mg | + + + | esmolol | 10 mg | + + + | ropivacaine 0.2% peripheral nerve | 0.1 mL | | block ([facility], Single, I-Flow pump) | | + + + | lactated ringers IV | 2,500 mL | + + + + + | Name | + + | O2 FR Avance (Total Liters) | + + | Air FR Avance (l/min) | + + | Insp Sevo | + + | Et Sevo | + + | Insp N2O % | + + | O2 Flow Rate [...] + + + | Wound | 01/30/19; 0826; Right; gluteal; | 01/30/19 08 by | | | | Abrasion, Pressure ulcer | Charli Hinds, | | | | | RN | | +--------+ + + + | Periph | 01/30/19; 09 (created via | 01/30/19954 by | | | eral | procedure documentation) | Ryan Cortez, | | | Nerve | | MD | | | Block | | | | +--------+ + + + | Periph | 01/30/19; 0903; Left; | 01/30/19902 by | 01/31/19 0000 by | | eral | Antecubital; 20 g; Positive; | Charli Hinds, | Suzy Navarro RN | | IV | 01/31/19 | RN | | +--------+ + + + | ETT | 01/30/19; 1242 (created via | 01/30/19 1242 by | 01/30/19 1550 by | | | procedure documentation); 7.5; | Kike Marquistti, | Kike E Trevditti, | | | Oral; Cuffed; 01/30/19; 1550 | EBD SPECIAL EDUCATION TEACHER | EBD SPECIAL EDUCATION TEACHER | +--------+ + + + | Periph | 01/30/19; 1320; dandre tyler jewel sorter; | 01/30/19 1320 by | 01/31/19 0000 by | | eral | Left; Wrist; 18 g; No; Other | Kike Coffman, | Suzy Navarro RN | | IV | (comment) (general anesthesia); | EBD SPECIAL EDUCATION TEACHER | | | | No; Positive; 01/31/19 [...] | + +--------+ + + + | ANE ETT | Routin | 2019 | | Results for this | | | e | 2:01 PM | | procedure are in the | | | | PDT | | results section. | + +--------+ + + + | PNB | Routin | 2019 | | Results for this | | | e | 10:27 AM | | procedure are in the | | | | PDT | | results section. | + +--------+ + + + documented in this encounter Results ETT (2019 2:01 PM PDT) + + + | Narrative | Performed At | + + + | Kike Coffman CRNA 2019 2:02 PM [employer] | | | - ETT Time of Placement: 2019 12:42 PM Intubation Reason: For | | | surgical procedure Positioning: Supine and Sniffing Location | | | Performed:OR OXYGENATION Patient was preoxygenated Grade: Grade | | | 2 - Ventilated by mask with oral airway/adjuvant Manual in-Line | | | Stabilization: No Induction:Routine, without Cricoid Pressure | | | INTUBATION ATTEMPT 1 Blade Type: Jere Blade #: 4 | | | Intubation Adjuncts: w/ Stylet Laryngoscopic View: Grade I ETT | | | DETAILS ETT Type:Standard, Hi-Lo Cuffed Intubation Type: Oral Cuff | | | Status: Cuffed Size: 7.5 ETT secured with adhesive tape Depth at | | | Lip: 23 cm Airway Leak: No CONFIRMATION Number of Attempts: 1 | | | Atraumatic placement Positive for EtCO2:Waveform capnography Breath | | | Sounds: Bilateral and equal NARRATIVE Attending was physically | | | present for the critical portions of the procedure as described in | | | the procedure note Authorized by Randal Hernandez MD Performed by | | | Kike Coffman CRNA | | + + + PNB Cath (2019 10:27 AM PDT) + + + | Narrative | Performed At | + + + | Ryan Cortez MD 2019 10:29 AM PNB Cath Placement | | | Start Time: 2019 9:55 AM Placement End Time: 2019 10:15 AM | | | Block Method: Catheter Block Reason: post-op pain management | | | Location Performed: Preop The patient was identified, site verified | | | and marked, full PARQ done PROCEDURE Number of Attempts: 1 | | | Block Type: interscalene Side: right Patient Position: Supine | | | Monitors: EKG, NIBP and SpO2 Team Pause: Performed per policy | | | Protective Barrier: Cap, Mask, Full-body drape, Gown, Hand scrub and | | | Sterile Gloves Draping: Fully draped Patient Status: Sedated | | | Patient Status Comment: See MAR for details Supplemental O2 given | | | TECHNOLOGY USED Technology used: Ultrasound guided | | | Ultrasound Image: Printed and placed in patients chart Ultrasound | | | Guidance: Needle tip confirmed by hydrolocalization Hydrodissection: | | | Hydrodiccection with saline/D5W Ultrasound Spread Characteristics: | | | Full spread around nerve/plexus NEEDLE Needle Type: Tuohy Needle | | | Size: 17 G Needle Length (cm): 9 cm Blood Return on Aspiration: no | | | blood return on aspiration Medication injected in 5mL aliquots. | | | Negative aspiration confirmed before and after each aliquot. 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 | | | Procedural Pause: A procedural pause verifying correct patient, | | | medical record number, date of , allergies, and surgical | | | site/orientation was performed immediately prior to beginning the | | | procedure. Patient consents to procedure and understands | | | risks/benefits of nerve block. No paresthesias or pain with | | | injection. Easy to inject with good US visualization of spread of | | | local anesthetic. Medication injected after negative aspiration | | | of heme, negative aspiration after every 5 mL of local anesthetic | | | solution throughout injection. See patient's medical record for | | | images. Dr. Hernandez present for entire procedure. | | + + + documented in this encounter Visit Diagnoses Not on filedocumented in this encounter Administered Medications + +--------+ +------+------+------+ | Medication Order | MAR | Action | Dose | Rate | Site | | | Action | Date | | | | + +--------+ +------+------+------+ | ceFAZolin (ANCEF) injection 2 g | Given | 01/31/20 | 2 g | | | | 2 g, intravenous, PREPROCEDURE | | 19 1:05 | | | | | ONCE, 1 dose, Starting Tue | | PM PDT | | | | | 01/30/19 at 0906, Until Tue | | | | | | | 01/30/19 at 1305 | | | | | | + +--------+ +------+------+------+ +---+---+ | | | +---+---+ + +-------+ +------+---+---+ | ePHEDrine injection | Given | 01/31/20 | 5 mg | | | | INTRAPROCEDURE PRN, Starting Tue | | 19 2:28 | | | | | 01/30/19 at 1321, Until Tue | | PM PDT | | | | | 01/30/19 at 1553 | | | | | | + +-------+ +------+---+---+ +-------+ +------+---+---+ | Given | 01/31/20 | 5 mg | | | | | 19 1:21 | | | | | | PM PDT | | | | +-------+ +------+---+---+ +---+---+ | | | +---+---+ + +-------+ +-------+---+---+ | esmolol (BREVIBLOC) injection | Given | 01/31/20 | 10 mg | | | | intravenous, INTRAPROCEDURE PRN, | | 19 3:44 | | | | | Starting 01/30/19 at 1544, | | PM PDT | | | | | Until 01/30/19 at 1553 | | | | | | + +-------+ +-------+---+---+ +---+---+ | | | +---+---+ + +-------+ +---------+---+---+ | fentaNYL (SUBLIMAZE) injection | Given | 01/31/20 | 100 mcg | | | | INTRAPROCEDURE PRN, Starting Tu | | 19 12:36 | | | | | 01/30/19 at 0948, Until Tue | | PM PDT | | | | | 01/30/19 at 1553 | | | | | | + +-------+ +---------+---+---+ +-------+ +--------+---+---+ | Given | 01/31/20 | 50 mcg | | | | | 19 9:48 | | | | | | AM PDT | | | | +-------+ +--------+---+---+ +---+---+ | | | +---+---+ + +-------+ +--------+---+---+ | glycopyrrolate (PF) (OLE) | Given | 01/31/20 | 0.5 mg | | | | injection soln INTRAPROCEDURE | | 19 3:06 | | | | | PRN, Starting 01/30/19 at | | PM PDT | | | | | 1506, Until Tue01/30/19 at 1553 | | | | | | + +-------+ +--------+---+---+ +---+---+ | | | +---+---+ + + + +---+---+---+ | lactated ringers IV 10 mL/hr, | given by | 01/31/20 | | | | | intravenous, PROCEDURE | | 19 3:05 | | | | | CONTINUOUS, Starting Tue01/30/19 | anesthes | PM PDT | | | | | at 0915, Until Tue01/31/19 at | iology | | | | | | 0014 | | | | | | + + + +---+---+---+ + + +---+---+---+ | given by anesthesiology | 01/31/20 | | | | | | 19 2:57 | | | | | | PM PDT | | | | + + +---+---+---+ | New Bag | 01/31/20 | | | | | | 19 2:48 | | | | | | PM PDT | | | | + + +---+---+---+ +---+---+ | | | +---+---+ + +-------+ +-------+---+---+ | lidocaine (XYLOCAINE MPF) 2 % | Given | 01/31/20 | 40 mg | | | | (20 mg/mL) injection | | 19 12:41 | | | | | INTRAPROCEDURE PRN, Starting Tue | | PM PDT | | | | | 01/30/19 at 1241, Until Tue | | | | | | | 01/30/19 at 1553 | | | | | | + +-------+ +-------+---+---+ +---+---+ | | | +---+---+ + +-------+ +------+---+---+ | neostigmine (PROSTIGMIN) | Given | 01/31/20 | 3 mg | | | | intravenous, INTRAPROCEDURE PRN, | | 19 3:06 | | | | | Starting 01/30/19 at 1506, | | PM PDT | | | | | Until 01/30/19 at 1553 | | | | | | + +-------+ +------+---+---+ +---+---+ | | | +---+---+ + +-------+ +---------+---+---+ | PHENYLEPHrine 100 mcg/mL IV | Given | 01/31/20 | 100 mcg | | | | syringe INTRAPROCEDURE PRN, | | 19 2:28 | | | | | Starting 01/30/19 at 1244, | | PM PDT | | | | | Until 01/30/19 at 1553 | | | | | | + +-------+ +---------+---+---+ +-------+ +---------+---+---+ | Given | 01/31/20 | 100 mcg | | | | | 19 2:21 | | | | | | PM PDT | | | | +-------+ +---------+---+---+ | Given | 01/31/20 | 100 mcg | | | | | 19 1:19 | | | | | | PM PDT | | | | +-------+ +---------+---+---+ +---+---+ | | | +---+---+ + + + + +--------+---+ | PHENYLEPHrine 25 mg/250 mL (0.1 | Rate/Dos | 01/31/20 | 0.4 | 17.95 | | | mg/mL) IV infusion (ADC) | e Change | 19 3:35 | mcg/kg/m | mL/hr | | | intravenous, INTRAPROCEDURE | | PM PDT | in | | | | CONTINUOUS PRN, Starting Tue | | | | | | | 01/30/19 at 1315, Until Tue | | | | | | | 01/30/19 at 1553 | | | | | | + + + + +--------+---+ + + + +--------+---+ | Rate/Dose Change | 01/31/20 | 0.6 | 26.93 | | | | 19 2:16 | mcg/kg/m | mL/hr | | | | PM PDT | in | | | + + + +--------+---+ | Rate/Dose Change | 01/31/20 | 0.5 | 22.44 | | | | 19 1:58 | mcg/kg/m | mL/hr | | | | PM PDT | in | | | + + + +--------+---+ +---+---+ | | | +---+---+ + +-------+ +--------+---+---+ | propofol (DIPRIVAN) injection | Given | 01/31/20 | 120 mg | | | | INTRAPROCEDURE PRN, Starting Tue | | 19 12:41 | | | | | 01/30/19 at 1241, Until Tue | | PM PDT | | | | | 01/30/19 at 1553 | | | | | | + +-------+ +--------+---+---+ +---+---+ | | | +---+---+ + +-------+ +-------+---+---+ | rocuronium (ZEMURON) injection | Given | 01/31/20 | 10 mg | | | | INTRAPROCEDURE PRN, Starting Tue | | 19 2:11 | | | | | 01/30/19 at 1250, Until Tue | | PM PDT | | | | | 01/30/19 at 1553 | | | | | | + +-------+ +-------+---+---+ +-------+ +-------+---+---+ | Given | 01/31/20 | 30 mg | | | | | 19 12:50 | | | | | | PM PDT | | | | +-------+ +-------+---+---+ +---+---+ | | | +---+---+ + +-------+ +------+---+---+ | ropivacaine (PF) (NAROPIN) | Given | 01/31/20 | 5 mL | | | | injection INTRAPROCEDURE PRN, | | 19 10:13 | | | | | Starting 01/30/19 at 1013, | | AM PDT | | | | | Until 01/30/19 at 1553 | | | | | | + +-------+ +------+---+---+ +-------+ +------+---+---+ | Given | 01/31/20 | 5 mL | | | | | 19 10:12 | | | | | | AM PDT | | | | +-------+ +------+---+---+ | Given | 01/31/20 | 5 mL | | | | | 19 10:11 | | | | | | AM [...] PDT | | | | | Starting 01/30/19 at 0945, | | | | | | | Until 01/31/19 at 1509 | | | | | | + +---------+ +---------+---------+---+ +---+---+ | | | +---+---+ + +-------+ +--------+---+---+ | succinylcholine (ANECTINE) | Given | 01/31/20 | 100 mg | | | | injection INTRAPROCEDURE PRN, | | 19 12:41 | | | | | Starting 01/30/19 at 1241, | | PM PDT | | | | | Until 01/30/19 at 1553 | | | | | | + +-------+ +--------+---+---+ +---+---+ | | | +---+---+ + +-------+ + +---+---+ | tranexamic acid (CYCLOKAPRON) | Given | 01/31/20 | 1,000 mg | | | | injection intravenous, | | 19 3:08 | | | | | INTRAPROCEDURE PRN, Starting Tue | | PM PDT | | | | | 01/30/19 at 1317, Until Tue | | | | | | | 01/30/19 at 1553 | | | | | | + +-------+ + +---+---+ +-------+ + +---+---+ | Given | 01/31/20 | 1,000 mg | | | | | 19 1:17 | | | | | | PM PDT | | | | +-------+ + +---+---+ +---+---+ | | | +---+---+ documented in this encounter"
--- OUTSIDE RECORDS SUMMARY | ~2020-01-10 | XMS | Encounter Summary ---
Demographics + + + | Address | [address] | | | [place] [address] | + + + | Home Phone [...] [place] | | | | | [address] | | + + + + + | Ronny Rene | ECON | Unknown | | + + + + + | Char Woodard | ECON | Unknown | | + + + + + Care Team Providers + +------+ + | Care Natural Science Manager Name | Role | Phone | + +------+ + | Deondre Landis MD | PCP | | + +------+ + Encounter Details +--------+ + + + + | Date | Type | Department | Care Team | Description | +--------+ + + + + | 04/01/ | Blood And Plasma Laboratory Assistant | [facility] | Vijay Akbar MD | Pulmonary nodules | | 2016 | | Center at [facility] [address] | [address] | (Primary Dx); | | | | [facility] | [address] [place], | History of | | | | for Health and | [place] [address] | esophageal cancer - | | | | [place] [address] | [phone] | [id number] | | | | [place], [place] | | | | | | [address] | | | | | | [phone] | | | +--------+ + + + [...] | | + +---------+ + + | [facility] | | | | | [...]
--- OUTSIDE RECORDS SUMMARY | ~2020-01-10 | XMS | Encounter Summary ---
Demographics + + + | Address | [address] | | | [place] [address] | + + + | Home Phone | | + + + | Preferred Language | Unknown | + + + | Marital Status | | + + + | Pentecostalism Affiliation | Unknown | + + + | Race | Unknown | + + + | Ethnic Group | Unknown | + + + Author + + + | Author | [facility] | | | and [place] | + + + | Organization | [facility] | | | and [place] | + + + | Address | Unknown | + + + | Phone | Unavailable | + + + Support + + + + + | Name | Relationship | Address | Phone | + + + + + | Selena Jimenez | ECON | [address] [id number] | | | | | [place] [address] | | + + + + + Care Team Providers + +------+ + | Care Basin Cleaner Name | Role | Phone | + +------+ + PCP | Unavailable | + +------+ + Reason for Visit + + + | Reason | Comments | + + + | Medication Refill | | + + + Encounter Details +--------+--------+ + + + | Date | Type | Department | Care Team | Description | +--------+--------+ + + + | 08/21/ | Refill | [facility] | Bernice Antonio, | Medication Refill | | 2011 | | CARDIOLOGY [address] | MD [address] | | | | | [place], | [place], | | | | | [place] [address] | [place] [address] | | | | | [phone] | [phone] | | | | | | | [...] [place], | | | | | | [place] [address] | | | | | | [phone] | | | | | | | | +--------+---------+ + + + documented as of this encounter Visit Diagnoses Not on filedocumented in this encounter"
--- OUTSIDE RECORDS SUMMARY | ~2020-01-10 | XMS | Encounter Summary ---
Demographics + + + | Address | [address] | | | [place] [address] | + + + | Home Phone | | + + + | Preferred Language | Unknown | + + + | Marital Status | | + + + | Confucianism Affiliation | Unknown | + + + | Race | Unknown | + + + | Ethnic Group | Unknown | + + + Author + + + | Author | [facility] | | | and Tobyana | + + + | Organization | [facility] | | | and Tobyana | + + + | Address | Unknown | + + + | Phone | Unavailable | + + + Support + + + + + | Name | Relationship | Address | Phone | + + + + + | Selena Jimenez | ECON | [id number] | | | | | [place] [address] | | + + + + + Care Team Providers + +------+ + | Care Rn Transition Name | Role | Phone | + [...] | | CARDIOLOGY [address] | [address] | | | | | [place], | [place], | | | | | [place] [address] | [place] [address] | | | | | [phone] | [phone] | | | | | | | [...] | 2019 | Visit | | [address] [facility] | | | | | | [place], | | | | | | [place] [address] | | | | | | [phone] | | | | | | | | +--------+---------+ + + + documented as of this encounter Procedures + +--------+ + + + | Procedure Name | Priori | Date/Time | Associated Diagnosis | Comments | | | ty | | | | + +--------+ + + + | EXTERNAL LAB: AST | Routin | 06/11/2013 | | Results for this | | | e | | | procedure are in the | | | | | | results section. | + +--------+ + + + | EXTERNAL LAB: ALT | Routin | 06/11/2013 | | Results for this | | | e | | | procedure are in the | | | | | | results section. | + +--------+ + + + | EXTERNAL LAB: | Routin | 06/11/2013 | | Results for this | | CHOLESTEROL, NON HDL | e | | | procedure are in the | | LP | | | | results section. | + +--------+ + + + | EXTERNAL LAB: | Routin | 06/11/2013 | | Results for this | | TRIGLYCERIDES | e | | | procedure are in the | | | | | | results section. | + +--------+ + + + | EXTERNAL LAB: | Routin | 06/11/2013 | | Results for this | | CHOLESTEROL, HDL | e | | | procedure are in the | | | | | | results section. | + +--------+ + + + | EXTERNAL LAB: | Routin | 06/11/2013 | | Results for this | | CHOLESTEROL, TOTAL | e | | | procedure are in the | | | | | | results section. | + +--------+ + + + | EXTERNAL LAB: | Routin | 06/11/2013 | | Results for this | | CHOLESTEROL, LDL | e | | | procedure are in the | | | | | | results section. | + +--------+ + + + | EXTERNAL LAB: EGFR | Routin | 06/11/2013 | | Results for this | | | e | | | procedure are in the | | | | | | results section. | + +--------+ + + + | EXTERNAL LAB: | Routin | 06/11/2013 | | Results for this | | CREATININE | e | | | procedure are in the | | | | | | results section. | + +--------+ + + + | LIPID PANEL | Routin | 06/11/2013 | | Results for this | | | e | | | procedure are in the | | | | | | results section. | + +--------+ + + + | COMPREHENSIVE | Routin | 06/11/2013 | | Results for this | | METABOLIC PANEL | e | | | procedure are in the | | | | | | results section. | + +--------+ + + + documented in this encounter Results Comprehensive Metabolic Panel (06/11/2013) + +-------+ + + + | Component | Value | Ref Range | Performed | Pathologist | | | | | At | Signature | + +-------+ + + + | Na | 133 | mmol/L | [facility] | | | | | [facility] | [facility] | | | | | | LAB[facility]ATORY | | + +-------+ + + + | K | 4.2 | mmol/L | [facility] | | | [facility] | [facility] | | [facility] - | | | | | | LAB[facility]ATORY | | + +-------+ + + + | Chloride | 97 | | [facility] | | | | | [facility] | | [facility] | | | | [facility] - | | | | | | LABORATORY | | + +-------+ + + + | CO2 | 29 | mmol/L | [facility] | | | | | [facility] | [facility] | [facility] | | | | [facility] - | | | | | | LABORATORY | | + +-------+ + + + | Anion Gap | 11 | mmol/L | [facility] | | | | | | [facility] | | | [facility] | [facility] | | | [facility] - | | | | | | LAB[facility]ATORY | | + +-------+ + + + | Glucose | 96 | mg/dL | [facility] | | | | | [facility] | | [facility] | | [facility] | | | | | [facility] - | | | | | | LABORATORY | | + +-------+ + + + | BUN | 12 | mg/dL | [facility] | | | | | | [facility] | | [facility] | | | [facility] | | | | | [facility] - | | | | | | LAB[facility]ATORY | | + +-------+ + + + | Creatine, | 1.31 | | [facility] | | | Serum | | | [facility] | | | | | | [facility] | | | | | | [facility] - | | | | | | LABORATORY | | + +-------+ + + + | GFR | 54 | | [facility] | | | ESTIMATE | | | [facility] | | | (REF) | | | [facility] | | | | | | CENTER - | | | | | | LABORATORY | | + +-------+ + + + | Bun/Creatin | 9.2 | | [facility] | | | ine | | | [facility] | | | | | | [facility] | | | | | | [facility] - | | | | | | LABORATORY | | + +-------+ + + + | Calcium | 10.8 | mg/dL | [facility] | | | | | | [facility] | | | | | [facility] | | | | | [facility] - | | | | | | LAB[facility]ATORY | | + +-------+ + + + | AST | 17 | U/L | [facility] | | | | | | [facility] | | [facility] | [facility] | [facility] | | | | [facility] - | | | | | | LABORATORY | | + +-------+ + + + | ALT | 12 | U/L | [facility] | | | | | | [facility] | [facility] | [facility] | | | | [facility] - | | | | | | LABORATORY | | + +-------+ + + + | Alkaline | 73 | 35 - 115 U/L | [facility] | | | Phosphatase | | | [facility] | | | | | | [facility] | | | | | [facility] - | | | | | | LABORATORY | | + +-------+ + + + | Bilirubin | 0.4 | 0.1 - 1.5 mg/dL | [facility] | | | Total | | | [facility] | | | | | | [facility] | | | | | [facility] - | | | | | | LABORATORY | | + +-------+ + + + | Total | 7.3 | 6.1 - 8.4 g/dL | [facility] | | | Protein | | | [facility] | | | | | | [facility] | | | | | | [facility] - | | | | | | LABORATORY | | + +-------+ + + + | Albumin | 4.6 | 3.3 - 4.8 g/dL | [facility] | | | | | | [facility] | | | | | | [facility] | | | | | [facility] - | | | | | | LABORATORY | | + +-------+ + + + | Globulin | 2.7 | | [facility] | | | | | | [facility] | | | [facility] | [facility] | | | | | | [facility] - | | | | | | LABORATORY | | + +-------+ + + + | Albumin/Ashley | 1.7 | | [facility] | | | bulin Ratio [...] + + | [address] | [address] | [place] | | | [facility] | | [id number] | | | - LABORATORY | | | | + + + + + Lipid Panel (06/11/2013) + +-------+ + + + | Component | Value | Ref Range | Performed | Pathologist | | | | | At | Signature | + +-------+ + + + | Cholesterol | 175 | | | | | , Total | | | | | + +-------+ + + + | Triglycerid | 39 | mg/dL | | | | es | | | | | + +-------+ + + + | HDL | 74.7 | mg/dl | | | + +-------+ + + + | LDL, | 93 | 130 mg/dL | | | | Calculated | | | | | + +-------+ + + + | VLDL | 8 | | | | | Cholesterol | | | | | | Wilner | | | | | + +-------+ + + + | Chol/HDL | 2.3 | | | | | Ratio | | | | | + +-------+ + + + | Non HDL | 100 | | | | | Chol. | | | | | | (LDL+VLDL) | | | | | + +-------+ + + + + + | Specimen | + + | Blood specimen | | (specimen) | + + External Lab: AST (06/11/2013) + +-------+ + + + | Component | Value | Ref Range | Performed | Pathologist | | | | | At | Signature | + +-------+ + + + | AST, | 17 | 0 - 40 | EXTERNAL | | | External | | | LAB | | + +-------+ + + + + + | Specimen | + + | Blood specimen | | (specimen) | + + + +---------+ + + | Performing | Address | City/State/Zipcode | Phone Number | | Organization | | | | + +---------+ + + | EXTERNAL LAB | | | | + +---------+ + + External Lab: ALT (06/11/2013) + +-------+ + + + | Component | Value | Ref Range | Performed | Pathologist | | | | | At | Signature | + +-------+ + + + | ALT, | 12 | 0 - 46 | EXTERNAL | | | External | | | LAB | | + +-------+ + + + + + | Specimen | + + | Blood specimen | | (specimen) | + + + +---------+ + + | Performing | Address | City/State/Zipcode | Phone Number | | Organization | | | | + +---------+ + + | EXTERNAL LAB | | | | + +---------+ + + External Lab: Cholesterol, Non HDL LP (06/11/2013) + +-------+ + + + | Component | Value | Ref Range | Performed | Pathologist | | | | | At | Signature | + +-------+ + + + | Cholesterol | 100 | 130 | EXTERNAL | | | , Total, | | | LAB | | | Non HDL-C | | | | | | (LDL+VLDL), | | | | | | External | | | | | + +-------+ + + + + + | Specimen | + + | Blood specimen | | (specimen) | + + + +---------+ + + | Performing | Address | City/State/Zipcode | Phone Number | | Organization | | | | + +---------+ + + | EXTERNAL LAB | | | | + +---------+ + + External Lab: Triglycerides (06/11/2013) + +-------+ + + + | Component | Value | Ref Range | Performed | Pathologist | | | | | At | Signature | + +-------+ + + + | Triglycerid | 39 | 30 - 150 | EXTERNAL | | | es, | | | LAB | | | External | | | | | + +-------+ + + + + + | Specimen | + + | Blood specimen | | (specimen) | + + + +---------+ + + | Performing | Address | City/State/Zipcode | Phone Number | | Organization | | | | + +---------+ + + | EXTERNAL LAB | | | | + +---------+ + + External Lab: Cholesterol, HDL (06/11/2013) + +-------+ + + + | Component | Value | Ref Range | Performed | Pathologist | | | | | At | Signature | + +-------+ + + + | HDL | 74.7 | 40 | EXTERNAL | | | Cholesterol | | | LAB | | | , External | | | | | + +-------+ + + + + + | Specimen | + + | Blood specimen | | (specimen) | + + + +---------+ + + | Performing | Address | City/State/Zipcode | Phone Number | | Organization | | | | + +---------+ + + | EXTERNAL LAB | | | | + +---------+ + + External Lab: Cholesterol, Total (06/11/2013) + +-------+ + + + | Component | Value | Ref Range | Performed | Pathologist | | | | | At | Signature | + +-------+ + + + | Cholesterol | 175 | 200 | EXTERNAL | | | , Total, | | | LAB | | | External | | | | | + +-------+ + + + + + | Specimen | + + | Blood specimen | | (specimen) | + + + +---------+ + + | Performing | Address | City/State/Zipcode | Phone Number | | Organization | | | | + +---------+ + + | EXTERNAL LAB | | | | + +---------+ + + External Lab: Cholesterol, LDL (06/11/2013) + +-------+ + + + | Component | Value | Ref Range | Performed | Pathologist | | | | | At | Signature | + +-------+ + + + | LDL | 93 | 100 | EXTERNAL | | | Cholesterol | | | LAB | | | , Direct, | | | | | | External | | | | | + +-------+ + + + + + | Specimen | + + | Blood specimen | | (specimen) | + + + +---------+ + + | Performing | Address | City/State/Zipcode | Phone Number | | Organization | | | | + +---------+ + + | EXTERNAL LAB | | | | + +---------+ + + External Lab: eGFR (06/11/2013) + +-------+ + + + | Component | Value | Ref Range | Performed | Pathologist | | | | | At | Signature | + +-------+ + + + | eGFR, | 54 | | EXTERNAL | | | External | | | LAB | | + +-------+ + + + | eGFR, | | | EXTERNAL | | | | | | LAB | | | [place], | | | | | | External | | | | | + +-------+ + + + + + | Specimen | + + | Blood specimen | | (specimen) | + + + +---------+ + + | Performing | Address | City/State/Zipcode | Phone Number | | Organization | | | | + +---------+ + + | EXTERNAL LAB | | | | + +---------+ + + External Lab: Creatinine (06/11/2013) + +-------+ + + + | Component | Value | Ref Range | Performed | Pathologist | | | | | At | Signature | + +-------+ + + + | Creatinine, | 1.31 | 0.5 - 1.5 | EXTERNAL | | | External | | | LAB | | + +-------+ + + + + + | Specimen | + + | Blood specimen | | (specimen) | + + + +---------+ + + | Performing | Address | City/State/Zipcode | Phone Number | | Organization | | | | + +---------+ + + | EXTERNAL LAB | | | | + +---------+ + + documented in this encounter Visit Diagnoses Not on filedocumented in this encounter"
--- OUTSIDE RECORDS SUMMARY | ~2020-01-10 | XMS | Encounter Summary ---
Demographics + + + | Address | [address] | | | [place] [address] | + + + | Home Phone | | + + + | Preferred Language | Unknown | + + + | Marital Status | | + + + | Rastafarian Affiliation | NON | + + + [...] [place] | | | | | [address] | | + + + + + | Ronny Rene | ECON | Unknown | | + + + + + | Char Woodard | ECON | Unknown | | + + + + + Care Team Providers + +------+ + | Care Plant Supervisor Name | Role | Phone | [...] REQUEST TO | Renee Soliz | [place], | | | | | SURGERY | [place], [place] | [place] | | | | | INCLUSION PARAEDUCATOR | [address] | [address] | | | | | [place] | Phone: | Phone: | | | | | LAP,ESOPHAGU | [phone] | [phone] | | | | | S,OTHER PROC | Fax: | Fax: | | | | | [place] REMOVAL | [phone] | [phone] | | | | | | | | | | | | ESOPHAGUS,NO | | | | | | | THORACOTOMY | | | | | | | [place] LAP, | | | | | | [...] Stephen | | | | | sly ([facility]) | [address] | Noel Charlton | | | | | Procedures | Renee Soliz | Mart[place], | | | | | CONSULT TO | [place], [place] | [place] | | | | | SURGERY - | [address] | [address] | | | | | GENERAL | Phone: | Phone: | | | | | | [phone] | [phone] | | | | | | Fax: | Fax: | | | | | | [phone] | [phone] | +--------+--------+ + + + + Encounter Details +--------+---------+ + + + | Date | Type | Department | Care Team | Description | +--------+---------+ + + + | 02/14/ | Office | Dig[facility]ive [facility] | Vijay Akbar MD | Esophageal cancer | | 2015 | Visit | Center at [facility] [address] | [address] | (HCC) (Primary Dx) | | | | [facility] | Renee Soliz [place], | | | | | [facility] and | [place] [address] | | | | | [place] [address] | [phone] | | | | | [place], [place] | | | | | | [address] | | | | | | [phone] | | | +--------+---------+ + + + [...] [place] RN - 02/14/2015 2:44 PM PDTEPICSPINPT[facility]OPINSTRUCTIONSP [facility] IN[facility] General Surgery Office Toll-free: ext [phone] Surgery [...] the surgery. Please see the list below, [facility] has a list of products that contain [...] please call the General Surgery Office at [phone] for [id number]. PARKING Parking for patients and visitors is available in the [facility] Parking structure located across from the emergency department. Patient parking is available on level 1 and 3. Mete red parking is available on the top level. CHECKING IN FOR SURGERY For Hospital Admission (in-patient) you will check in on the day of surgery at the [facility] Department located on the 9th floor of [facility] TRANSPORTATION You will require transportation home on the day of discharge. Pain medications and physica l activity restrictions may limit your ability to drive safely. CANCELLING YOUR PROCEDURE Please notify the general surgery office at [phone] as soon as possible should you nee [...] prior to your surgery. PRODUCTS CONTAINING ASPIRIN Candice-[place], Anacin, Anexsia with Codeine, Andynos, Aspirin, Aspirin suppositories, Ascrip tin, Aspergum, Axotal, B-A-C, Baby Aspirin, Ellen, BC Powder, Bexophene, Buffaprin, Bufferin , Buffinol, Cama-Arthritis Strength, Congespirin, [place], Coricidin, Damason, Darvon, Dristan, Ayesha-Gesic, Digel, Dolprin #3 Tablets, Donatab, Doxaphene, Duragesic, Easprin, Ecotrin, Emag rin Forte, Emiprin, Emprazil, Equagesic, Equazine M, Excedrin, Fiogesic, Fiorgen PH, Fiorice t, Fiorinal, 4-Way Cold Tablet Gemnisyn, Indocin, Liquprin, Lortab ASA, Magnaprin, Marnal, Meprobamate, Midol, Momentum, N orgesic, Charlotte, Orphengesic, Pabalate, P-A-C, Percodan, Presalin, Robaxasil, Roxiprin, Jose eto, Salocol SK-65 Compound, Sine-Aid, Sine-Off,, Blaine, Supac, Talwin Compound, Trigesic, Tolectin , Traiminicin, Vanquish, ZORprin, Zomax PRODUCTS CONTAINING IBUPROFEN Advil, Aleve, Haltran, Medipren, Midol, Motrin, Naproxyn, Nuprin, Rufen OTHER PRODUCTS WHICH MAY PROMOTE BLEEDING Vitamin E, Gingko Biloba, Marine Fatty Acids, Millwood-3 Fish Oil Supplements documented in this encounter [...] esophagus Knee pain, chronic Back pain, chronic HI (myocardial infarction) Refusal of blood transfusion for reasons of conscience HI - December 2007 s/p CABG. Solar Energy Consultant And Designer is Dr. Wagoner ([place]) Matter of life or , patient okay [...] file Social History Narrative Patient resides outside [place], [place]. MEDICATIONS: Current Medication List Name Sig [...] 2015. - MD preop appointment (hx of CAD/HI) Diagnostic data, case and plan discussed with Dr. Vijay Akbar. This plan is subject to [facility] nge, based on clinical developments. Thank you very much for the opportunity to consult on patient Junaid Jimenez. If you have a ny questions, please feel free to page or call us. - Suzy Flowers MD, pager [phone] [facility] Mail Code: L223 [facility] [address] [...] | | | LABORATORY | | | [facility] [place] | | | SERVICES, | | | [...] the MDRD equation recommended by the | [facility] | | National Kidney Disease Education [...] | + + + + + | [facility] LABORATORY | [address] | [place] [address] | | | [place] | [place] [...] [facility] | [address] | [place] [address] | | | SERVICES, [place] | [address] | | | + + + + + documented in this encounter Visit Diagnoses + + | Diagnosis | + + | Esophageal cancer (HCC) - Primary Malignant neoplasm of esophagus, unspecified site | + + documented in this encounter
--- OUTSIDE RECORDS SUMMARY | ~2020-01-10 | XMS | Encounter Summary ---
Demographics + + + | Address | [address] | | | [place] [address] | + + + | Home Phone | | + + + | Preferred Language | Unknown | + + + | Marital Status | | + + + | Zoroastrianism Affiliation | NON | + + + [...] [place] | | | | | [address] | | + + + + + | Ronny Rene | ECON | Unknown | + | + + + + + | Char Woodard | ECON | Unknown | | + + + + + Care Team Providers + +------+ + | Care Pad Extraction Tender Name | Role | Phone | + [...] | | | | | | [place], [place] | | | | | | [address] | | | | | | [phone] | | | +--------+ + + + [...]
--- OUTSIDE RECORDS SUMMARY | ~2020-01-10 | XMS | Encounter Summary ---
Demographics + + + | Address | [address] | | | [place] [address] | + + + | Home Phone | | + + + | Preferred Language | Unknown | + + + | Marital Status | | + + + | Pentecostalism Affiliation | Unknown | + + + | Race | Unknown | + + + | Ethnic Group | Unknown | + + + Author + + + | Author | [facility] | | | and Tobyana | + + + | Organization | [facility] | | [...] | | | | | [place] [address] | | + + + + + Care Team Providers + +------+ + | Care Associate Professor Computer Science Name | Role | Phone | + [...] + + | 07/16/ | Office | [facility] | Roderick Gill | Knee pain, bilateral | | 2013 | Visit | PHYSIATRY [address] | MD Iker [address] | (Primary Dx) | | | | [address] | [address] [place] | | | | | [place] | [address] | | | | | [address] | | | | | | [phone] | | | +--------+---------+ + + + [...] has no apparent deficits with short or termite helper memory. He has appropriate fund of knowledge [...] | | 2019 | Visit | | [address] [place] [address] | | | | | | [place], | | | | | | [place] [address] | | | | | | [phone] | | | | | | | | +--------+---------+ + + + documented as of this encounter Visit Diagnoses + + | Diagnosis | + + | Knee pain, bilateral - Primary Pain in joint, lower leg | + + documented in this encounter
--- OUTSIDE RECORDS SUMMARY | ~2020-01-10 | XMS | Encounter Summary ---
Demographics + + + | Address | [address] | | | [place] [address] | + + + | Home Phone [...] + + | Author | [facility] | + + + | Organization | [facility] | + + + | Address | Unknown | + + + | Phone | Unavailable | + + + Support + + + + + | Name | Relationship | Address | Phone | + + + + + | Selena Jimenez | ECON | [address] | | | | | [place] | | | | | [address] | | + + + + + | Ronny Rene | ECON | Unknown | | + + + + + | Char Woodard | ECON | Unknown | | + + + + + Care Team Providers + +------+ + | Care Southeast Regional Sales Manager Name | Role | Phone [...] + + | 04/28/ | Emergency | [facility] Emergency | | | | 2014 | | Department [address] | | | | | | [facility] | | | | | | [facility] | | | | | | [place], [place] | | | | | | [address] | | | | | | [phone] | | | +--------+ + + + [...] | 1 | 04/11/20 | | | [id number] | tube route once | | | [...]
--- OUTSIDE RECORDS SUMMARY | ~2020-01-10 | XMS | Encounter Summary ---
Demographics + + + | Address | [address] | | | [place] [address] | + + + | Home Phone [...] [place] | | | | | [address] | | + + + + + | Ronny Rene | ECON | Unknown | | + + + + + | Char Woodard | ECON | Unknown | | + + + + + Care Team Providers + +------+ + | Care Tube Backer Name | Role | Phone | + [...] | | 2016 | | Center at [facility] [address] | [address] | | | | | [facility] | [facility] | | | | | [facility] and | [place] [address] | | | | | [facility] [place] [address] | [phone] | | | | | [place], [place] | | | | | | [address] | | | | | | [phone] | | | +--------+ + + + [...]
--- OUTSIDE RECORDS SUMMARY | ~2020-01-10 | XMS | Encounter Summary ---
Demographics + + + | Address | [address] | | | [place] [address] | + + + | Home Phone [...] [place] | | | | | [address] | | + + + + + | Ronny Rene | ECON | Unknown | | + + + + + | Char Woodard | ECON | Unknown | | + + + + + Care Team Providers + +------+ + | Care Pancake Professional Name | Role | Phone | + [...] | | 2015 | | Center at [facility] [address] | [address] | | | | | [facility] | [facility] | | | | | [facility] and | [place] [address] | | | | | [place] [address] | [phone] | | | | | [place], [place] | | | | | | [address] | | | | | | [phone] | | | +--------+ + + + [...]
--- OUTSIDE RECORDS SUMMARY | ~2020-01-10 | XMS | Encounter Summary ---
Demographics + + + | Address | [address] | | | [place] [address] | + + + | Home Phone | | + + + | Preferred Language | Unknown | + + + | Marital Status | | + + + | Methodist Affiliation | NON | + + + [...] [place] | | | | | [address] | | + + + + + | Ronny Rene | ECON | Unknown | | + + + + + | Char Woodard | ECON | Unknown | | + + + + + Care Team Providers + +------+ + | Care Restorer Paper And Prints Name | Role | Phone | + [...] | | | [address] | [facility] | | | | | [address] | [place], [place] | | | | | [place], | [address] | | | | | [address] [place] [address], | [phone] | | | | | [place] [address] | | | | | | [phone] | | | +--------+ + + + [...]
--- OUTSIDE RECORDS SUMMARY | ~2020-01-10 | XMS | Encounter Summary ---
Demographics + + + | Address | [address] | | | [place] [address] | + + + | Home Phone [...] Author | [facility] | + + + | Organization | [facility] | + + + | Address | Unknown | + + + | Phone | Unavailable | + + + Support + + + + + | Name | Relationship | Address | Phone | + + + + + | Selena Jimenez | ECON | [address] | | | | | [place] | | | | | [address] | | + + + + + | Ronny Rene | ECON | Unknown | | + + + + + | Char Woodard | ECON | Unknown | | + + + + + Care Team Providers + +------+ + | Care Agricultural Chemist Name | Role | Phone | + [...] Zafar | | | | | sly ([facility]) | [address] | [address] | | | | | Procedures | Latesha Soliz | [place], | | | | | CONSULT TO | [place], [place] | [place] | | | | | SURGERY - | [address] | [address] | | | | | GENERAL | Phone: | Phone: | | | | | | [phone] | [phone] | | | | | | Fax: | Fax: | | | | | | [phone] | [phone] | +--------+--------+ + + + + Encounter [...] | | [facility] | Latesha Soliz [place], | | | | | [facility] and | [place] [address] | | | | | [place] [address] | [phone] | | | | | [place], [place] | | | | | | [address] | | | | | | [phone] | | | +--------+---------+ + + + [...] Daniel MD - 07/11/2015 9:04 AM PDT [facility] Department of Surgery Division of Red Surgery [...] esophagus Knee pain, chronic Back pain, chronic CO (myocardial infarction) (HCC) s/p CABG x 2 Hearing loss bialteral hearing aids Esophageal adenocarcinoma (HCC) Unintentional weight loss Dysphagia Past Surgical History Procedure Laterality Date Cabg x 2 2007 Colonoscopy Shoulder surgery Right Back surgery x 4 Inguinal hernia repair Left Appendectomy Esophagectomy, laparscopic 03/28/2015 transhiatal esophagectomy, Dr. Akbar at [facility] Left neck incision and drainage Left 04/02/2015 2/2 anastomotic leak Laparoscopic placement of jejunostomy feeding tube 03/28/2015 Dr. Akbar, [facility] Egd (esophagogastroduodenoscopy) 03/28/2015 Dr. Akbar, [facility] Current Outpatient Prescriptions Medication Sig aspirin chewable [...]
--- OUTSIDE RECORDS SUMMARY | ~2020-01-10 | XMS | Encounter Summary ---
Demographics + + + | Address | [address] | | | [place] [address] | + + + | Home Phone [...] [place] | | | | | [address] | | + + + + + | Ronny Rene | ECON | Unknown | | + + + + + | Char Woodard | ECON | Unknown | | + + + + + Care Team Providers + +------+ + | Care Health Unit Coordinator Name | Role | Phone | [...] | | 2017 | | Center at [facility] [address] | [address] | | | | | [address] [facility] | [address] [place], [place] | | | | | for Health and | [address] | | | | | [place] [address] | [phone] | | | | | [place], [place] | | | | | | [address] | | | | | | [phone] | | | +--------+ + + + [...]
--- OUTSIDE RECORDS SUMMARY | ~2020-01-10 | XMS | Encounter Summary ---
Demographics + + + | Address | [address] | | | [place] [address] | + + + | Home Phone [...] [place] | | | | | [address] | | + + + + + | Ronny Rene | ECON | Unknown | | + + + + + | Char Woodard | ECON | Unknown | | + + + + + Care Team Providers + +------+ + | Care Machine Operator Slitter Technician Name | Role | Phone | [...] | | 2014 | | Center at [facility] [address] | [address] | | | | | Page [facility] | [place] | | | | | [facility] and | [place] [address] | | | | | [place] [address] | [phone] | | | | | [place], [place] | | | | | | [address] | | | | | | [phone] | | | +--------+ + + + [...]
--- OUTSIDE RECORDS SUMMARY | ~2020-01-10 | XMS | Encounter Summary ---
Demographics + + + | Address | [address] | | | [place] [address] | + + + | Home Phone | | + + + | Preferred Language | Unknown | + + + | Marital Status | | + + + | Mormonism Affiliation | NON | + + + [...] [place] | | | | | [address] | | + + + + + | Ronny Rene | ECON | Unknown | | + + + + + | Char Woodard | ECON | Unknown | | + + + + + Care Team Providers + +------+ + | Care Digital Marketing Coordinator Name | Role | Phone | [...] | Procedural Unit at | [facility] [address] | | | | | [address] | | | | | [address] | [place], [place] | | | | | [place], | [address] | | | | | 4th floor [place], | [phone] | | | | | [place] [address] | | | | | | [phone] | [place] [employer] | | +--------+ [...]
--- OUTSIDE RECORDS SUMMARY | ~2020-01-10 | XMS | Encounter Summary ---
Demographics + + + | Address | [address] | | | [place] [address] | + + + | Home Phone | | + + + | Preferred Language | Unknown | + + + | Marital Status | | + + + | Advent Affiliation | Unknown | + + + | Race | Unknown | + + + | Ethnic Group | Unknown | + + + Author + + + | Author | [facility] | | | and [place] | + + + | Organization | [facility] | | | and [place] | + + + | Address | Unknown | + + + | Phone | Unavailable | + + + Support + + + + + | Name | Relationship | Address | Phone | + + + + + | Selena Jimenez | ECON | [id number] | | | | | [place] [address] | | + + + + + Care Team Providers + +------+ + | Care Steel Floor Pan Placing Supervisor Name | Role | Phone | [...] | | CARDIOLOGY [address] | [address] | | | | | [address] [place], | [place], | | | | | [place] [address] | [place] [address] | | | | | [phone] | [phone] | | | | | | | [...] | 2019 | Visit | | [address] [facility] | | | | | | [place], | | | | | | [place] [address] | | | | | | [phone] | | | | | | | [...] ST. | [address] | [place] | | | [facility] | | [id number] | | | - [...] | | | LAB | | | [place], | | | | | | External [...]
--- OUTSIDE RECORDS SUMMARY | ~2020-01-10 | XMS | Encounter Summary ---
Demographics + + + | Address | [address] | | | [place] [address] | + + + | Home Phone [...] [place] | | | | | [address] | | + + + + + | Ronny Rene | ECON | Unknown | | + + + + + | Char Woodard | ECON | Unknown | | + + + + + Care Team Providers + +------+ + | Care Log Tumbler Name | Role | Phone | + [...] | | | | | H/O | [facility] | [facility] | | | | | esophagectom | | [facility] and | | | | | y | [place], [place] | Healing, | | | | | Procedures | [address] | [address] | | | | | CONSULT TO | Phone: | [place], [place] | | | | | GI PROCEDURE | [phone] | [address] | | | | | UNIT: EGD | Fax: | Phone: | | | | | | [phone] | [phone] | | | | | | | Fax: | | | | | | | [phone] | +--------+--------+ + + + + Reason [...] Vomiting | | 2015 | | Center [place] [address] [address] | [address] | | | | | [facility] | [address] [facility] | | | | | [facility] and | [place] [address] | | | | | [place] [address] | [phone] | | | | | [place], [place] | | | | | | [address] | | | | | | [phone] | | | +--------+ + + + [...]
--- OUTSIDE RECORDS SUMMARY | ~2020-01-10 | XMS | Encounter Summary ---
Demographics + + + | Address | [address] | | | [place] [address] | + + + | Home Phone | | + + + | Preferred Language | Unknown | + + + | Marital Status | | + + + | Yazdanism Affiliation | Unknown | + + + | Race | Unknown | + + + | Ethnic Group | Unknown | + + + Author + + + | Author | [facility] | | | and [place] | + + + | Organization | [facility] | | | and [...] | | | | | [place] [address] | | + + + + + Care Team Providers + +------+ + | Care Inpatient Auditor Name | Role | Phone | [...] Description | +--------+--------+ + + + | 03/26/ | Refill | [facility] | Bernice Antonio, | Medication Refill | | 2012 | | CARDIOLOGY [address] | [address] [place] | | | | | [place], | [place], | | | | | [place] [address] | [place] [address] | | | | | [phone] | [phone] | | | | | | | [...] | | | | | | [place] [address] | | | | | | [phone] | | | | | | | | +--------+---------+ + + + documented as of this encounter Visit Diagnoses Not on filedocumented in this encounter"
--- OUTSIDE RECORDS SUMMARY | ~2020-01-10 | XMS | Encounter Summary ---
Demographics + + + | Address | [address] | | | [place] [address] | + + + | Home Phone | | + + + | Preferred Language | Unknown | + + + | Marital Status | | + + + | Buddhist Affiliation | NON | + + + [...] [place] | | | | | [address] | | + + + + + | Ronny Rene | ECON | Unknown | | + + + + + | Char Woodard | ECON | Unknown | | + + + + + Care Team Providers + +------+ + | Care Transfer Engineer Name | Role | Phone | + +------+ + | Deondre Landis MD | PCP | | + +------+ + Reason for Visit +--------+ + | Reason | Comments | +--------+ + | Preop | | +--------+ + Encounter Details +--------+---------+ + + + | Date | Type | Department | Care Team | Description | +--------+---------+ + + + | 03/26/ | Office | Preoperative | Tracee, | Other specified | | 2015 | Visit | Medicine Clinic at | MANUEL Diaz | pre-operative | | | | [facility] 4th Floor [address] | [address] | examination (Primary | | | | [address] | [address] [place], [place] | Dx); Esophageal | | | | Mailcode: CH4S | [address] | cancer ([facility]); | | | | [facility] | | Coronary artery | | | | and Healing, | | disease due to lipid | | | | Building 1,4th Floor | | rich plaque; | | | | [facility] [place] | | Essential | | | | [address] | | hypertension; | | | | [phone] | | Gastroesophageal | | | | | | reflux disease | | | | | | without esophagitis; | | | | | | HLD | | | | | | (hyperlipidemia) | +--------+---------+ + + + Anesthesia Record + + + + + | Procedure Name | Responsible | Anesthesia Start | Anesthesia Stop Time | | | Anesthesiologist | Time | | + + + + + | LAPAROSCOPIC | Pk Khoury, | 03/27/15 0786 | 03/27/15 1530 | | TRANSHIATAL | [...] g; | 03/27/15 0629 by | 04/01/15 0930 by | | eral | 04/01/15; 0930; [...] RN | Greer Kaba RN | | Cathchris | 03/29/15; 1300; Per order | | | | er | | | | +--------+ + + + | Centra | 03/27/15; 08; Right; Internal | 03/27/15 0804 by | 03/29/15 1300 by | | l Line | Jugular; 03/29/15; 1300 | Nico Alvarado MD | Greer Kaba RN | | - | | | | | Triple | | | | | Lumen | | | | +--------+ + + + | Periph | 03/27/15; 812; Right; Hand; 16 | 03/27/15812 by | 03/31/15 0010 by | | eral | g; 03/31/15; 0010; Drainage | Nico Alvarado MD | Shana Nelson RN | | IV | (leaking) | | | +--------+ + + + | Naso/O | Dewey perez; Right Abhi; no | 03/27/15916 by | 03/30/15 08 by | | ro | complication; 03/30/15816 | | Kenyatta Light RN | | Tube | | | | +--------+ + + + | Chest | 03/27/15; 1212; Raffy; Standard; | 03/27/15 1212 by | 04/05/15 0900 by | | Tube | Right; Lateral; Middle; 28 Fr.; | Som Stevens RN | Marsha Regino, | | | 1; 04/05/15; 0900 | [...] + + + | Blood Pressure | 115/77 | 03/26/2015 2:51 PM | | | | | PDT | | + + + + + | Pulse | 62 | 03/26/2015 2:51 PM | | | | | PDT | | + + + + + | Temperature | 36.6 C (97.9 F) | 03/26/2015 2:51 PM | | | | | PDT | | + + + + + | Respiratory Rate | 16 | 03/26/2015 2:51 PM | | | | | PDT | | + + + + + | Oxygen Saturation | 98% | 03/26/2015 2:51 PM | | | | | PDT | | + + + + + | Inhaled Oxygen | - | - | | | Concentration | | | | + + + + + | Weight | 82.6 kg (182 lb) | 03/26/2015 2:51 PM | | | | | PDT | | + + + + + | Height | 179.1 cm (5' 10.5") | 03/26/2015 2:51 PM | neck 44.5cm | | | | PDT | | + + + + + | Body Mass Index | 25.75 | 03/26/2015 2:51 PM | | | | | PDT | | + + + + + documented in this encounter Patient Instructions Patient Instructions Uma Easley FNP - 03/26/2015 2:58 PM PDT PREOPERATIVE INSTRUCTIONS Empty stomach before surgery On the day BEFORE your surgery, drink plenty of fluids and stay well hydrated NOTHING to eat or drink after midnight the night before surgery. This includes water, coffee, candy, mints, gum. Medications Instructions On the evening before your surgery, take ALL your usual evening medications TAKE the following medications with a sip of water on the morning of surgery: Amlodipine Atorvastatin omeprazole Do NOT take the following medications on the morning of surgery: Lisinopril Aspirin meloxicam Other medications not specifically mentioned are at your discretion as to taking or not taking on the morning of surgery. Unless otherwise directed by your surgeon, do not take any Aspirin, vitamin E or non-mainor roidal anti-inflammatory (NSAIDs i.e. Advil, Aleve, Ibuprofen) or herbal supplements 7-14 da ys prior to your surgery. These drugs may interfere with normal blood clotting and may cause excessive bleeding and bruising during or after the surgery. If you are in doubt about any medications that you are taking, please contact our office . Skin preparation to help avoid surgical site infections HIBICLENS GUIDE TO GENERAL SKIN CLEANSING AT HOME BEFORE SURGERY Before you bathe or shower: ? Read the instructions given to you by your healthcare practitioner, and begin your genera l skin cleansing protocol as directed. ? Carefully read all directions on the product label. ? Hibiclens is not to be used on the head or face, keep out of the eyes, ears and mouth. ? Hibiclens is not to be used in the genital area. ? Hibiclens should not be used if you are allergic to chlorhexidine gluconate or any other ingredients in this preparation. *See Hibiclens label for full product information and precautions. When you bathe or shower the night before your surgery: ? If you plan to wash your hair, do so with your regular shampoo. Then rinse hair and body thoroughly to remove any shampoo residue. ? Wash your face with your regular soap or water only. ? Thoroughly rinse your body with warm water from neck down. ? Use Hibiclens as you would any other liquid soap. Please do not put the Hibiclens on a wa sh cloth, apply directly to the skin and wash gently. Apply the minimum amount of Hibiclens necessary to cover the skin. Leave the Hibiclens on your skin for 1 minute, then rinse off. ? Rinse thoroughly with warm water. ? Do not use your regular soap after applying and rinsing Hibiclens. When using Hibiclens for a second day in a row (morning of surgery, as soon as you wake up) : ? Shower/bathe again using Hibiclens in the same method as described above. ? Do not apply any lotions, deodorants, powders or perfumes to the body areas that have been cleaned with Hibiclens. Other Important Guidelines ? Do not shave [...] late for your check in for surgery. ? Take a bath or shower and remember to shampoo your hair using your usual hair product bef ore your arrival at the hospital. Please remember to brush your teeth the night before and the morning of your procedure. Preventing post op complications while you are [...] ur legs. Sometimes your doctor will order air compression stockings. Compressed air helps the circulation in your legs. Walking and moving will help stimulate normal circulation and deep breathing. After you r surgery, your nurse may ask you to sit, stand or walk. Surgery check-in location: Admitting - [facility], ninth floor lobby Surgery Check in Time: 5:30 am 03/27/15 at [facility], 9th floor at the round desk next t o the fireplace. Going Home Your surgical team will decide when you are medically ready to go home. If you stayed in the hospital after surgery, please arrange for your ride to come for yo u around 9AM on the day your doctor says you can go home. If you have questions or concerns after you go home, call your doctor s office. If it is after office hours, call the [facility] facing cutting machine operator at [phone] and ask them to page him or h er. Preparing For Your Surgery Video - 7 minutes of instructions! Access this [facility] video site : [email or web address] -->Healthcare --> Patient and Visitor Guide --> Preparing for your Visit or Surgery --> Click on the "Preparing for Your Surgery" video vira k documented in this encounter Progress Notes Uma Easley FNP - 03/26/2015 5:58 PM PDTFormatting of this note might be differ ent from the original. PREOPERATIVE CONSULT NOTE Author: MANUEL HENRIQUEZ Referring Physician: Dr Vijay Akbar Primary Care Provider: Deondre Landis MD Reason for Consult: Preoperative evaluation and risk assessment Proposed Procedure/Date: Transhiatal esophagectomy, jejunostomy feeding tube on 03/27/15 HISTORY OF PRESENT ILLNESS: Junaid Jimenez is a 75 y.o. male here for preoperative evaluatio n for above procedure. Pt has dx of esophageal cancer. Symptoms related to the diagnosis: onset 8-9 months ago, started to have dysphagia: meat was getting stuck; coughing; Weight lo ss of 40-50 lbs. Denies pain and dyspnea. Pertinent medical history: CAD/Hx OR - s/p CABG x 2 in 2007 HLD - on statin GERD - omeprazole HTN - amlodipine, lisinopril Perioperative cardiac risks: Prior CAD s/p CABG x 2 in 2007 Functional Capacity: Moderate (4-10 mets) Prior complications of anesthesia: none ROS: Pulmonary: no cough no URI no shortness of breath Pt. Has no asthma No dx of sleep apnea Risks factors for sleep apnea: Pt. being treated for high blood pressure Age>50 and Male gender Cardiovascular: Reports he can climb 2 flights of stairs without cp, palpitations, dizzines s, sob/hdez; reports he climbed 3 flights last week with a resident and had no problems. - dyspnea on exertion, PND, palpitations, chest pressure and syncope CAD Cad Sx: CABG past OR Last OR: > 1 year no CHF hypertension well controlled no valvular problems/murmurs Vascul ar: VASCULAR SYMPTOMS hyperlipidemia no pacemaker GI/Hepatic: no GI Bleed GERD Control: Well controlled No liver disease no hepatitis no OTHE R GI : no renal failure Other : no Endo: no Diabetes: Neurological: Sign/Sx (bilateral hearing aids) hearing loss no seizures no HX CORTICOSTEROI D no psychiatric problem no pain Current Pain Level: Current pain level: 0 MS: arthritis (knees, shoulders, back and neck) Type: osteoarthritis Heme/Onc: Pt. has: no active bleeding no Bleeding diathesis / thrombotic bleeding Previous Transfusions: no transfusion hx Hx: no other heme, Malignancy: no cancer, Location: [place] is: Skin: No open wounds or sores No hx MRSA/VRE/Active skin infection Current medications reviewed / updated Current Medication List Name Sig AMLODIPINE 10 [...] Take 20 mg by mouth once daily. Allergies reviewed / updated Allergies Allergen Reactions Adhesive Tape Rash Paper tape is fine to use Past medical history reviewed / updated Past Medical History Diagnosis Date GERD (gastroesophageal reflux disease) HTN (hypertension) Cheema's esophagus Knee pain, chronic Back pain, chronic OR (myocardial infarction) s/p CABG x 2 Hearing loss bialteral hearing aids Past surgery reviewed and updated Past Surgical History Procedure Date Cabg x 2 2007 Colonoscopy Shoulder surgery Back surgery x 4 Inguinal hernia repair Appendectomy Family history reviewed / updated Family History Problem Relation Blood Disease Neg Hx Anesthesia Neg Hx Social history reviewed / updated History Substance Use Topics Smoking status: Former Smoker -- 1.00 packs/day for 50 years Types: Cigarettes Quit date: 12/25/2007 Smokeless tobacco: Former User Types: Snuff Comment: smokey moutain pure mint leaves snuff (nicotine free) Alcohol Use: 7.0 oz/week 14 Not specified per week PHYSICAL EXAM: Last Vitals: BP 115/77 | Pulse 62 | Temp (Src) 36.6 C (97.9 F) (Oral) | RR 16 | Ht 1.79 1 m (5' 10.5") | Wt 82.555 kg (182 lb) | SpO2 98% | BMI 25.74 kg/(m^2) Body mass index is 25 .74 kg/(m^2). General: Patients general appearance: Age appropriate, Smiling, Cooperative, Alert and No d istress Head & Neck/Airway: Neck ROM: limited Dentition: dentition is normal dentures-upper Date of last Dental Exam: 2 months Isbell: No Mallampati: III Mouth Opening: > = 3 cm C-Spine: limited extension Neck Anatomy: Normal Jaw Protrusion: Normal, lower incisors can protrude past upper incisors Lung Exam: breath sounds normal Cardiac: Rhythm: regular Rate: normal murmur (grade III/ pansystolic murmur heard through out precordium; radiates to axillae, not carotids;; known murmur throughout life)peripheral edema and weak pulses Abdominal: General Findings: Nondistended Bowel Sounds: bowel sounds are normal Musculoskeletal: Findings: tone normal and normal strength Neuro/Psych: alert Findings: Alert, oriented to person, place, time, Normal affect and Gayatri r 5/5 strength globally with normal tone Integument: - open wounds Color: pink Texture: Skin texture - normal Turgor: turgor normal Implants: None, LABS & DATA REVIEWED/ORDERED Lab Results Component Value Date WBC 12.17 03/26/2015 HB 12.9 03/26/2015 HCT 38.3 03/26/2015 PLT 267 03/26/2015 MCV 92.7 03/26/2015 RDW 44.5 03/26/2015 Lab Results Component Value Date NA 135 03/26/2015 K 4.4 03/26/2015 CL 101 03/26/2015 BICARB 25 03/26/2015 BUN 27 03/26/2015 CR 1.09 03/26/2015 GLU 93 03/26/2015 CA 10.0 03/26/2015 AST 19 03/26/2015 ALT 19 03/26/2015 AP 92 03/26/2015 TBILI 0.4 03/26/2015 TP 7.3 03/26/2015 ALB 3.6 03/26/2015 Lab Results Component Value Date ABO O 03/26/2015 RH Positive 03/26/2015 Lab Results Component Value Date INRPT 0.87* 03/26/2015 EKG: Personally reviewed. NSR at 64/min; normal ecg MEDICAL DECISION MAKIN ACC/AHA Perioperative Cardiac Risk Stratification (assumes non-emergent, non-cardiac p rocedure) Are active cardiac conditions present? No Calculate the combined surgical and patient-specific risk: using the [facility] perioperative ca rdiac risk calculator, the risk of major adverse cardiac event (MACE) is: less than 1%. No further risk stratification for coronary disease is indicated. ASSESSMENT and RECOMMENDATIONS: Surgical/anesthesia risk assessment: Junaid Jimenez is a 75 y.o. male with diagnosis of esophageal cancer, scheduled for Transhiatal esophagectomy, jejunostomy feeding tube on . According to ACC/AHA guidelines, the patient does not meet criteria for additional test ing. Medication management recommendations: The patient was advised to continue all usual med ications except as noted in Patient Instructions (After Visit Summary given to pt) Pre-procedure antibiotic recommendation: Cefazolin 2 gm IV (no PCN allergy; no hx MRSA) GERD - omeprazole HTN - amlodipine, lisinopril, CAD/HLD - s/p CABG x 2 in 2007; pt did not know which vessels; atorvastatin, aspirin; he did not stop aspirin before surgery citing lack of knowledge to do so; email sent to Dr Isaias lagos to notify; his response was that it would be fine to proceed with the surgery Chronic back and knee pain - taking meloxicam; he did not stop aspirin before surgery ci ting lack of knowledge to do so; email sent to Dr Akbar to notify; his response was that it would be fine to proceed with the surgery Hearing Loss - bilateral hearing aids At high risk for developing post op delirium because of age, medical fragility, poor functi onal status and physiologic stress of surgery. Specific interventions that have been shown to reduce delirium include: an orientation protocol to provide the patient with repeated orientation to their surroundi ngs and care team members a sleep protocol to provide uninterrupted night time sleep an early-mobilization protocol to allow for daily ambulation and range of motion a vision protocol to allow easy access to glasses and other visual aids a hearing protocol to provide amplifying devices and other hearing aids. Pharmacologic treatment of delirium may be required in cases where the pt is causing potent ial self harm. In such cases, haloperidol is the medication of choice to treat delirium. A n initial dose of 1 to 2 mg of haloperidol is recommended with doses of 0.25 to 0.5 mg every 4 hours for maintenance dosing in elderly patients. Monitor for potential side effects such as prolonged QT-interval on the electrocardiogram and extrapyramidal side effects (akathisi a, dystonia, psuedoparkinsonism, and dyskinesia). The patient is stable / optimized for surgery. Additional testing/optimization is not nee ded. Thank you for the opportunity to contribute to this patient's care. MANUEL Russo FNP [facility] PREOPERATIVE MEDICINE CLINIC AT [facility] 4TH FLOOR [address] [place] [address] I counseled the pt regarding perioperative risk (cardiac/bleeding/ DVT/ respiratory failur e/ infection, etc) and methods to mitigate risk. I advised the patient regarding NPO requir ements, hydration before surgery, showering, general body hygiene. All pre-procedure instru ctions given to the patient (after-visit summary). All of patient's questions were addresse d. The patient verbalized understanding of the instructions given. NoMaire jackson MA - 03/26/2015 3:56 PM PDT Venipuncture performed in clinic, blood sample obtained from Right antecubital site Electro nically signed by Lele Burt MA at 03/26/2015 6:26 PM PDTdocumented in this encount er Plan of Treatment Not on filedocumented as of this encounter Procedures + +--------+ + + + | Procedure Name | Priori | Date/Time | Associated Diagnosis | Comments | | | ty | | | | + +--------+ + + + | HI COLLECTION VENOUS | Routin | 03/26/2015 | Other specified | | | BLOOD,VENIPUNCTURE | e | 3:56 PM | pre-operative | | | | | PDT | examination | | + +--------+ + + + | CBC (HEMOGRAM) ONLY | Routin | 03/26/2015 | Esophageal cancer | Results for this | | | e | 3:45 PM | (HCC) | procedure are in the | | | | PDT | | results section. | + +--------+ + + + | INR | Routin | 03/26/2015 | Esophageal cancer | Results for this | | | e | 3:45 PM | (HCC) | procedure are in the | | | | PDT | | results section. | + +--------+ + + + | COMPLETE METABOLIC | Routin | 03/26/2015 | Esophageal cancer | Results for this | | SET | e | 3:45 PM | (HCC) | procedure are in the | | (NA,K,CL,CO2,BUN,CRE | | PDT | | results section. | | AT,GLUC,CA,AST,ALT,B | | | | | | HAN TOTAL,ALK | | | | | | PHOS,ALB,PROT TOTAL) | | | | | + +--------+ + + + | CBC ONLY | Routin | 03/26/2015 | Esophageal cancer | Results for this | | | e | 3:45 PM | (HCC) | procedure are in the | | | | PDT | | results section. | + +--------+ + + + | ANTIBODY SCREEN | Routin | 03/26/2015 | Esophageal cancer | Results for this | | | e | 3:45 PM | (HCC) | procedure are in the | | | | PDT | | results section. | + +--------+ + + + | TYPE AND SCREEN | Routin | 03/26/2015 | Esophageal cancer | Results for this | | | e | 3:45 PM | (HCC) | procedure are in the | | | | PDT | | results section. | + +--------+ + + + | ABO & RH TYPE | Routin | 03/26/2015 | Esophageal cancer | Results for this | | | e | 3:45 PM | (HCC) | procedure are in the | | | | PDT | | results section. | + +--------+ + + + | HEMOGLOBIN A1C, | Routin | 03/26/2015 | Other specified | Results for this | | BLOOD | e | 3:45 PM | pre-operative | procedure are in the | | | | PDT | examination | results section. | + +--------+ + + + documented in this encounter Results HEMOGLOBIN A1C, BLOOD (03/26/2015 3:45 PM PDT) + + + + + + | Component | Value | Ref Range | Performed | Pathologist | | | | | At | Signature | + + + + + + | HEMOGLOBIN | 6.0 (H)Comment: Hbg A1c | <5.7 % | [facility] | | | A1C | Interpretive | | LABORATORY | | | | Information: | | SERVICES, | | | | <5.7% - Normal | | SPECIAL IMM | | | | 5.7-6.4% - Consistent | | + COAG | | | | with pre-diabetes | | | | | | >6.4% - Consistent with | | | | | | diabetes | | | | + + + + + + + + | Specimen | + + | Blood - Blood | + + + + + + + | Performing | Address | City/State/Zipcode | Phone Number | | Organization | | | | + + + + + | [facility] | [address] | [place] [address] | | | SERVICES, SPECIAL | [address] | | | | IMM + COAG | | | | + + + + + CBC (HEMOGRAM) ONLY (03/26/2015 3:45 PM PDT) + + + + + + | Component | Value | Ref Range | Performed | Pathologist | | | | | At | Signature | + + + + + + | WHITE CELL | 12.17 (H) | 4.40 - 11.00 | [facility] | | | COUNT | | K/cu mm | LABORATORY | | | | | | SERVICES, | | | | | | CORE | | + + + + + + | RED CELL | 4.13 (L) | 4.50 - 6.00 | [facility] | | | COUNT | | M/cu mm | LABORATORY | | | | | | SERVICES, | | | | | | CORE | | + + + + + + | HEMOGLOBIN | 12.9 (L) | 13.5 - 17.5 | [facility] | | | | | g/dL | LABORATORY | | | | | | SERVICES, | | | | | | CORE | | + + + + + + | HEMATOCRIT | 38.3 (L) | 41.0 - 53.0 % | [facility] | | | | | | LABORATORY | | | | | | SERVICES, | | | | | | CORE | | + + + + + + | MCV | 92.7 | 80.0 - 96.0 fL | [facility] [...] + + + | RDW SD | 44.5 | 35.1 - 46.3 fL | [facility] | | | | | | LABORATORY | | | | | | SERVICES, | | | | | | CORE | | + + + + + + | PLATELET | 267 | 150 - 400 K/cu | [facility] [...] | + + + + + | [facility] | [address] | [place] [address] | | | SERVICES, CORE | [address] | | | + + + + + COMPLETE METABOLIC SET (NA,K,CL,CO2,BUN,CREAT,GLUC,CA,AST,ALT,BILI TOTAL,ALK PHOS,ALB,PROT TOTAL) [...] | | | LABORATORY | | | [place] | | | SERVICES, | | | [...] | + + + + + | [facility] | [address] | [place] [address] | | | SERVICES, CORE | [address] [...] (L) | 0.90 - 1.20 INR | [facility] | | | | | | LABORATORY [...] mech. valves (2.5 - 3.5) INR | SERVICES, CORE | + + + + + + + + | Performing | Address | City/State/Zipcode | Phone Number | | Organization | | | | + + + + + | [facility] | [address] | [place] [address] | | | SERVICES, CORE | [address] | | | + + + + + ANTIBODY SCREEN (03/26/2015 3:45 PM PDT) + + + [...] | + + + + + | [facility] | [address] | [place] [address] | | | SERVICES, | [address] | | | | TRANSFUSION MEDICINE | | | | + + + + + ABO & RH TYPE (03/26/2015 3:45 PM PDT) + + + [...] [facility] | [address] | [place] [id number] | | | NELLY, | [address] | | | | TRANSFUSION MEDICINE | | | | + + + + + documented in this encounter Visit Diagnoses + + | Diagnosis | + + | Other specified pre-operative examination - Primary | + + | Esophageal cancer (HCC) Malignant neoplasm of esophagus, unspecified site | + + | Coronary artery disease due to lipid rich plaque | + + | Essential hypertension | + + | Gastroesophageal reflux disease without esophagitis Esophageal reflux | + + | HLD (hyperlipidemia) Other and unspecified hyperlipidemia | + + documented in this encounter
--- OUTSIDE RECORDS SUMMARY | ~2020-01-10 | XMS | Encounter Summary ---
Demographics + + + | Address | [address] | | | [place] [address] | + + + | Home Phone [...] Author | [facility] | | | and Tobyana | + + + | Organization | [facility] | | | and [...] | | | | | [place] [address] | | + + + + + Care Team Providers + +------+ + | Care Switchboard Operator Assistant Name | Role | Phone | [...] + + | 07/24/ | Refill | [facility] | Bernice Antonio, | Medication Refill | | 2011 | | CARDIOLOGY [address] | MD [address] [place] | | | | | [place], | [place], | | | | | [place] [address] | [place] [address] | | | | | [phone] | [phone] | | | | | | | [...] | | | | | | [place] [address] | | | | | | [phone] | | | | | | | | +--------+---------+ + + + documented as of this encounter Visit Diagnoses Not on filedocumented in this encounter"
--- OUTSIDE RECORDS SUMMARY | ~2020-01-10 | XMS | Encounter Summary ---
Demographics + + + | Address | [address] | | | [place] [address] | + + + | Home Phone | | + + + | Preferred Language | Unknown | + + + | Marital Status | | + + + | Religion Affiliation | NON | + + + [...] [place] | | | | | [address] | | + + + + + | Ronny Rene | ECON | Unknown | | + + + + + | Char Woodard | ECON | Unknown | | + + + + + Care Team Providers + +------+ + | Care E Commerce Specialist Name | Role | Phone | [...] [address] | | | | | | [place], [place] | | | | | | [address] | | | +--------+ + + + [...]
--- OUTSIDE RECORDS SUMMARY | ~2020-01-10 | XMS | Encounter Summary ---
Demographics + + + | Address | [address] | | | [place] [address] | + + + | Home Phone | | + + + | Preferred Language | Unknown | + + + | Marital Status | | + + + | Anabaptism Affiliation | NON | + + + [...] [place] | | | | | [address] | | + + + + + | Ronny Rene | ECON | Unknown | | + + + + + | Char Woodard | ECON | Unknown | | + + + + + Care Team Providers + +------+ + | Care Chemistry Manager Name | Role | Phone | + +------+ + | Deondre Landis MD | PCP | | + +------+ + Encounter Details +--------+ + + + + | Date | Type | Department | Care Team | Description | +--------+ + + + + | 11/18/ | Data Processing Mechanic | Digestive Health | Char Castillo, | Acute deep vein | | 2018 | | Center at [facility] [address] | MD [address] | thrombosis (DVT) of | | | | [facility] | Ave [facility] [place] | non-extremity vein | | | | for Health and | [address] | (Primary Dx) | | | | Healing, [facility] 2 | [phone] | | | | | [place], [place] | | | | | | [address] | | | | | | [phone] | | | +--------+ + + + [...]
--- OUTSIDE RECORDS SUMMARY | ~2020-01-10 | XMS | Encounter Summary ---
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); Pre-op | | | | [address] [place], [place] | | evaluation; Preop | | | | [address] | | examination | | | | [phone] | | | +--------+---------+ + + + Anesthesia Record + + + + + | Procedure Name | Responsible | Anesthesia Start | Anesthesia Stop Time | | | Anesthesiologist | Time | | + + + + + | RIGHT OPEN REDUCTION | Randal Hernandez MD | 01/30/19 2320 | 01/30/19 1843 | | WITH INTERNAL | | | [...] | | Oral; Cuffed; 01/30/19; 1550 | EDITING COMPUTER PUBLISHER | EDITING COMPUTER PUBLISHER | +--------+ + + + | Periph | 01/30/19; 1320; dandre tyler senior systems programmer; | 01/30/19 1320 by | 01/31/19 0000 by | | eral | Left; Wrist; 18 g; No; Other | Kike Coffman, | Suzy Navarro RN | | IV | (comment) (general anesthesia); | EDITING COMPUTER PUBLISHER | | | | No; Positive; 01/31/19 [...] exist, including nicotine patches and gum. The [employer] Quit Line can also be reached at 2.637.QUIT.NOW ( ) or online at [email or web address]. Preventing post op complications while you are [...] sit, stand or walk. Surgery check-in location: [address] 2, 1st Floor Lobby Surgery Check [...] it is after office hours, call the [facility] foiling machine operator at [phone] and ask them to page him or [...] regional block Date: 01/30/19 Proposed Procedure Location: [facility] HISTORY OF PRESENT ILLNESS: Junaid Jimenez is [...] any activity. Follows with car diology in [place]. Last seen in October. No history of [...] Within Defined Limits except as noted below Urology/Portfolio Architect: Within Defined Limits except as noted below [...] unit oral tablet Take 1,000 Units by [facility] once daily. HYDROcodone-acetaminophen 5-325 mg [...] hearing aids HTN (hypertension) Knee pain, chronic IA (myocardial infarction) (HCC) s/p CABG x 2 Unintentional weight loss Past surgery reviewed / updated Past Surgical History Procedure Laterality Date Cabg x 2 2007 Colonoscopy Shoulder surgery Right Back surgery x 4 Inguinal hernia repair Left Appendectomy Esophagectomy, laparscopic 03/28/2015 transhiatal esophagectomy, Dr. Akbar at [facility] Left neck incision and drainage Left 04/02/2015 2/2 anastomotic leak Laparoscopic placement of jejunostomy feeding tube 03/28/2015 Dr. Akbar, [facility] Egd (esophagogastroduodenoscopy) 03/28/2015 Dr. Akbar, [facility] Family history reviewed / updated Family History [...] The patient is also currently scheduled at [facility] [place] and meets inclusion criteria for that venue. Medication management recommendations: The patient was advised to continue all usual med ications except as noted in Patient Instructions (After Visit Summary given to pt) Pre-procedure antibiotic recommendation: Per standard protocol. Coronary artery disease: stable without angina. He's held aspirin for the last week. Res ume post-op. Low threshold to check ECG/troponins post-op since perioperative IA can present atypically. History of esophageal dysplasia [...] PCP to recheck post-operatively. Heart murmur: unlikely sales representative jewelry of significant valvulopathy by my assessment today given its mid-systolic quality at the base. Would not delay surgery for updated TTE. Thank you for the opportunity to contribute to this patient's care. Keaton Adkins MD,[facility] AT [address] [address] documented in thi s encounter Plan of Treatment + + +--------+ + + | Name | Type | Priori | Associated Diagnoses | Order Schedule | | | | ty | | | + + +--------+ + + | COMMUNICATION TO [facility] | Procedures | Routin | Esophageal cancer | Ordered: 01/29/2019 | | LAB DRAW | | e | ([facility]) Preop | | | | | | [...] [facility] | [address] | [place] [address] | | | SERVICES, CORE | PARK [...] | | | LABORATORY | | | [place]AT[place]I | | | SERVICES, | | | [...] MDRD equation recommended by the National | [facility] | | Kidney Disease Education Program. Estimated GFR Interpretive | LABORATORY | | Information: <60 mL/min/1.73 sq m Chronic Kidney | SERVICES, [facility] | | Disease <15 mL/min/1.73 sq m [...] | + + + + + | [facility] | [address] | [place] [address] | | | [place] | RENEE [...] DEPT OF | [address] | [place], [place] | | | CARDIOLOGY | [address] | [address] | | + + + + + [...]
--- OUTSIDE RECORDS SUMMARY | ~2020-01-10 | XMS | Encounter Summary ---
Demographics + + + | Address | [address] | | | [place] [address] | + + + | Home Phone [...] [place] | | | | | [address] | | + + + + + | Ronny Rene | ECON | Unknown | | + + + + + | Char Woodard | ECON | Unknown | | + + + + + Care Team Providers + +------+ + | Care Shank Stapler Name | Role | Phone | + [...] | Review | | | | [address] | | | | | | [address] | | | | | | [place], | | | | | | 4th [facility] | | | | | | [place] [address] | | | | | | [phone] | | | +--------+ + + + [...]
--- OUTSIDE RECORDS SUMMARY | ~2020-01-10 | XMS | Encounter Summary ---
Demographics + + + | Address | [address] | | | [place] [address] | + + + | Home Phone | | + + + | Preferred Language | Unknown | + + + | Marital Status | | + + + | Mandaen Affiliation | Unknown | + + + | Race | Unknown | + + + | Ethnic Group | Unknown | + + + Author + + + | Author | [facility] | | | and [place] | + + + | Organization | [facility] | | | and [...] | | | | | [place] [address] | | + + + + + Care Team Providers + +------+ + | Care Clinical Documentation Consultant Name | Role | Phone | + +------+ + PCP | Unavailable | + +------+ + Encounter Details +--------+ + + + + | Date | Type | Department | Care Team | Description | +--------+ + + + + | 03/30/ | Hospital | [facility] | | | | 1992 | Encounter | MED CTR XRAY [address] | | | | | | [place] | | | | | | [place] [address] | | | | | | [phone] | | | +--------+ + + + [...] 2019 | Visit | | [address] | | | | | | [place], | | | | | | [place] [address] | | | | | | [phone] | | | | | | | | +--------+---------+ + + + documented as of this encounter Visit Diagnoses Not on filedocumented in this encounter"
--- OUTSIDE RECORDS SUMMARY | ~2020-01-10 | XMS | Encounter Summary ---
Demographics + + + | Address | [address] | | | [place] [address] | + + + | Home Phone [...] Author | [facility] | + + + | Organization | [facility] | + + + | Address | Unknown | + + + | Phone | Unavailable | + + + Support + + + + + | Name | Relationship | Address | Phone | + + + + + | Selena Jimenez | ECON | [address] | | | | | [place] | | | | | [address] | | + + + + + | Ronny Edgard | ECON | Unknown | | + + + + + | Char Woodard | ECON | Unknown | | + + + + + Care Team Providers + +------+ + | Care Human Resources Admin Name | Role | Phone | + +------+ + | David Ferrera MD | PCP | | + +------+ + Reason for Referral Physical Therapy (Routine) +--------+--------+ + + + + | Status | Reason | Specialty | Diagnoses / | Referred By | Referred To | | | | | Procedures | Contact | Contact | +--------+--------+ + + + + | Closed | | Physical | Diagnoses | [place], | | | | | Therapy | Other | [place] | | | | | | closed | [address] | | | | | | displaced | Ave | | | | | | fracture of | [place], [place] | | | | | | proximal end | [address] | | | | | | of humerus | Phone: | | | | | | with routine | [phone] | | | | | | healing, | Fax: | | | | | | unspecified | [phone] | | | | | | laterality, | | | | | | | subsequent | | | | | | | encounter | | | | | | | Procedures | | | | | | | PHYSICAL | | | | | | | THERAPY | | | | | | | REFERRAL | | | +--------+--------+ + + + + Reason for Visit + + + | Reason | Comments | + + + | Referral To PT | | + + + Encounter Details +--------+ + + + + | Date | Type | Department | Care Team | Description | +--------+ + + + + | 01/26/ | Telephone | Orthopaedics | Glenn Siegel MD | Referral To PT | | 2019 | | Faculty at [place] | [address] [facility] | | | | | for [facility] | [facility] | | | | | Healing [address] | [place], [place] | | | | | [facility] | [address] | | | | | Health and Healing, | [phone] | | | | | [facility] | | | | | | [place], [place] | | | | | | [address] | | | | | | [phone] | | | +--------+ + + + [...] | Diagnosis | + + | Other closed displaced fracture of proximal end of humerus with routine healing, | | unspecified laterality, subsequent encounter - Primary | + + documented in this encounter"
--- OUTSIDE RECORDS SUMMARY | ~2020-01-10 | XMS | Encounter Summary ---
Demographics + + + | Address | [address] | | | [place] [address] | + + + | Home Phone [...] [place] | | | | | [address] | | + + + + + | Ronny Rene | ECON | Unknown | | + + + + + | Char Woodard | ECON | Unknown | | + + + + + Care Team Providers + +------+ + | Care Mine Wirer Name | Role | Phone | + [...] Records | | 2017 | | Center [place] [address] [address] | [address] | Review | | | | [facility] | [facility], | | | | | and | [place] [address] | | | | | [facility] [place] [address] | [phone] | | | | | [place], [place] | | | | | | [address] | | | | | | [phone] | | | +--------+ + + + [...]
--- OUTSIDE RECORDS SUMMARY | ~2020-01-10 | XMS | Encounter Summary ---
Demographics + + + | Address | [address] | | | [place] [address] | + + + | Home Phone [...] [place] | | | | | [address] | | + + + + + | Ronny Rene | ECON | Unknown | | + + + + + | Char Woodard | ECON | Unknown | | + + + + + Care Team Providers + +------+ + | Care Curriculum Supervisor Name | Role | Phone | [...] | | 2018 | | Center at [facility] [address] | MD [address] | (Metronidazole) | | | | [address] [facility] | [place], [place] | | | | | for Health and | [address] | | | | | [facility] 2 | [phone] | | | | | [place], [place] | | | | | | [address] | | | | | | [phone] | | | +--------+ + + + [...]
--- OUTSIDE RECORDS SUMMARY | ~2020-01-10 | XMS | Encounter Summary ---
Demographics + + + | Address | [address] | | | [place] [address] | + + + | Home Phone | | + + + | Preferred Language | Unknown | + + + | Marital Status | | + + + | Yazidi Affiliation | NON | + + + | Race | White | + + + | Ethnic Group | Not or | + + + Author + + + | Author | [facility] | + + + | Organization | [facility] | + + + | Address | Unknown | + + + | Phone | Unavailable | + + + Support + + + + + | Name | Relationship | Address | Phone | + + + + + | Selena Jimenez | ECON | [address] | | | | | [place] | | | | | [address] | | + + + + + | Ronny Rene | ECON | Unknown | | + + + + + | Char Woodard | ECON | Unknown | | + + + + + Care Team Providers + +------+ + | Care Portable Machine Sander Name | Role | Phone | + [...] | | 2017 | | Center at [facility] [address]85 | [address] | | | | | [facility] | [facility] | | | | | [facility] and | [place] [address] | | | | | [facility] 2 | [phone] | | | | | [place], [place] | | | | | | [address] | | | | | | [phone] | | | +--------+ + + + [...]
--- OUTSIDE RECORDS SUMMARY | ~2020-01-10 | XMS | Encounter Summary ---
Demographics + + + | Address | [address] | | | [place] [address] | + + + | Home Phone | | + + + | Preferred Language | Unknown | + + + | Marital Status | | + + + | Restorationist Affiliation | Unknown | + + + | Race | Unknown | + + + | Ethnic Group | Unknown | + + + Author + + + | Author | [facility] | | | and [place] | + + + | Organization | [facility] [...] | | | | | [place] [address] | | + + + + + Care Team Providers + +------+ + | Care Fly Worker Name | Role | Phone | [...] | CARDIOLOGY [address] | MD [address] | | | | | [place], | [place], | | | | | [place] [address] | [place] [address] | | | | | [phone] | [phone] | | | | | | | [...] | | | | | | [place] [address] | | | | | | [phone] | | | | | | | | +--------+---------+ + + + documented as of this encounter Visit Diagnoses Not on filedocumented in this encounter"
--- OUTSIDE RECORDS SUMMARY | ~2020-01-10 | XMS | Encounter Summary ---
Demographics + + + | Address | [address] | | | [place] [address] | + + + | Home Phone | | + + + | Preferred Language | Unknown | + + + | Marital Status | | + + + | Jainism Affiliation | NON | + + + | Race | White | + + + | Ethnic Group | Not or | + + + Author + + + | Author | [facility] | + + + | Organization | [facility] | + + + | Address | Unknown | + + + | Phone | Unavailable | + + + Support + + + + + | Name | Relationship | Address | Phone | + + + + + | Selena Jimenez | ECON | [address] | | | | | [place] | | | | | [address] | | + + + + + | Ronny Rene | ECON | Unknown | | + + + + + | Char Woodard | ECON | Unknown | | + + + + + Care Team Providers + +------+ + | Care Hcc Coders Name | Role | Phone | + [...] | | 2018 | | Center at [facility] [address] | [address] | | | | | [address] [facility] | Ave [place], [place] | | | | | [facility] and | [address] | | | | | [place] [address] | [phone] | | | | | [place], [place] | | | | | | [address] | | | | | | [phone] | | | +--------+ + + + [...]
--- OUTSIDE RECORDS SUMMARY | ~2020-01-10 | XMS | Encounter Summary ---
Demographics + + + | Address | [address] | | | [place] [address] | + + + | Home Phone | | + + + | Preferred Language | Unknown | + + + | Marital Status | | + + + | Voodoo Affiliation | NON | + + + [...] [place] | | | | | [address] | | + + + + + | Ronny Rene | ECON | Unknown | | + + + + + | Char Woodard | ECON | Unknown | | + + + + + Care Team Providers + +------+ + | Care Firer Electric Locomotive Name | Role | Phone | + [...] at | | | | | | [facility] [[email or web address] 4th | | | | | | Stay [address] | | | | | | [address] | | | | | | Mailcode: [id number] | | | | | | [address] | | | | | | [address] [place], [place] | | | | | | [address] | | | | | | [phone] | | | +--------+ + + + [...] perfume, lotions or powder. Remove any nail mongolian from at least one fingernail. Do not [...] Stay Unit [address], fourth floor Room 5292 Surgery Check in Time: Someone from your surgeon's office or [facility] hospital will provide you with information regarding [...] it is after office hours, call the [facility] oil well gun perforator operator at [phone] and ask them to page your doc tor. documented in this encounter Plan of Treatment Not on filedocumented as of this encounter Visit Diagnoses Not on filedocumented in this encounter"
--- OUTSIDE RECORDS SUMMARY | ~2020-01-10 | XMS | Encounter Summary ---
Demographics + + + | Address | [address] | | | [place] [address] | + + + | Home Phone [...] [place] | | | | | [address] | | + + + + + | Ronny Rene | ECON | Unknown | | + + + + + | Char Woodard | ECON | Unknown | | + + + + + Care Team Providers + +------+ + | Care Fiberglass Autobody Repairer Name | Role | Phone | [...] Records | | 2017 | | Center [place] [address] [address] | [address] | Review | | | | [facility] | [facility], | | | | | [facility] and | [place] [address] | | | | | [facility] [place] [address] | [phone] | | | | | [place], [place] | | | | | | [address] | | | | | | [phone] | | | +--------+ + + + [...]
--- OUTSIDE RECORDS SUMMARY | ~2020-01-10 | XMS | Encounter Summary ---
Demographics + + + | Address | [address] | | | [place] [address] | + + + | Home Phone | | + + + | Preferred Language | Unknown | + + + | Marital Status | | + + + | Adventist Affiliation | Unknown | + + + | Race | Unknown | + + + | Ethnic Group | Unknown | + + + Author + + + | Author | [facility] | | | and [place]yana | + + + | Organization | [facility] | [...] | | | | | [place] [address] | | + + + + + Care Team Providers + +------+ + | Care Rn Social Work Name | Role | Phone | + [...] | CARDIOLOGY [address] | [address] | | | | | [place], | [place], | | | | | [place] [address] | [place] [address] | | | | | [phone] | [phone] | | | | | | | [...] [place], | | | | | | [place] [address] | | | | | | [phone] | | | | | | | [...] St | [place] | | | [facility] | | [address], [facility] | | | - LABORATORY [...] | | | LAB | | | [place], | | | | | | External [...] St | [place] | | | [facility] | | [address], [facility] | | | - LABORATORY [...] | | | LAB | | | [place], | | | | | | External [...] ST. | [address] | [place] | | | [facility] | | [address] | | | - [...] | | | LAB | | | [place], | | | | | | External [...]
--- OUTSIDE RECORDS SUMMARY | ~2020-01-10 | XMS | Encounter Summary ---
Demographics + + + | Address | [address] | | | [place] [address] | + + + | Home Phone | | + + + | Preferred Language | Unknown | + + + | Marital Status | | + + + | Gnosticist Affiliation | NON | + + + | Race | White | + + + | Ethnic Group | Not or | + + + Author + + + | Author | [facility] | + + + | Organization | [facility] | + + + | Address | Unknown | + + + | Phone | Unavailable | + + + Support + + + + + | Name | Relationship | Address | Phone | + + + + + | Selena Jimenez | ECON | [address] | | | | | [place] | | | | | [address] | | + + + + + | Ronny Rene | ECON | Unknown | | + + + + + | Char Woodard | ECON | Unknown | | + + + + + Care Team Providers + +------+ + | Care Extracting Machine Operator Name | Role | Phone [...] + + + + | 02/09/ | Medical And Health Services Manager | Digestive Health | Vijay Akabr MD | 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
--- OUTSIDE RECORDS SUMMARY | ~2020-01-10 | XMS | Encounter Summary ---
Demographics + + + | Address | [address] | | | [place] [address] | + + + | Home Phone | | + + + | Preferred Language | Unknown | + + + | Marital Status | | + + + | Orthodoxy Affiliation | Unknown | + + + | Race | Unknown | + + + | Ethnic Group | Unknown | + + + Author + + + | Author | [facility] | | | and Tobyana | + + + | Organization | [facility] [...] | | | | | [place] [address] | | + + + + + Care Team Providers + +------+ + | Care Plate Mill Hand Name | Role | Phone | [...] | CARDIOLOGY [address] | MD [address] [place] | | | | | [place], | [place], | | | | | [place] [address] | [place] [address] | | | | | [phone] | [phone] | | | | | | | [...] | | | | | | [place] [address] | | | | | | [phone] | | | | | | | | +--------+---------+ + + + documented as of this encounter Visit Diagnoses Not on filedocumented in this encounter"
--- OUTSIDE RECORDS SUMMARY | ~2020-01-10 | XMS | Encounter Summary ---
Demographics + + + | Address | [address] | | | [place] [address] | + + + | Home Phone [...] [place] | | | | | [address] | | + + + + + | Ronny Rene | ECON | Unknown | + | + + + + + | Char Woodard | ECON | Unknown | | + + + + + Care Team Providers + +------+ + | Care Nitroglycerin Separator Operator Name | Role | Phone | + +------+ + | David Ferrera MD | PCP | | + +------+ + Encounter Details +--------+ + + + + | Date | Type | Department | Care Team | Description | +--------+ + + + + | 01/30/ | Pharmacy | Pharmacy @ [facility] | | | | 2019 | Visit | [address] | | | | | [address] Mailcode: | | | | | | [facility] | | | | | | and Healing, | | | | | | Building [address] | | | | | | [place], [place] | | | | | | [address] | | | +--------+ + + + [...]
--- OUTSIDE RECORDS SUMMARY | ~2020-01-10 | XMS | Encounter Summary ---
Demographics + + + | Address | [address] | | | [place] [address] | + + + | Home Phone [...] [place] | | | | | [address] | | + + + + + | Ronny Rene | ECON | Unknown | | + + + + + | Char Woodard | ECON | Unknown | | + + + + + Care Team Providers + +------+ + | Care Kick Press Setter Name | Role | Phone | + [...] | 2015 | Visit | Center at [facility] [address] | [address] | following | | | | [facility] | [place] [facility], | esophagectomy | | | | for Health and | [place] [address] | (Primary Dx) | | | | [facility], [facility] 2 | [phone] | | | | | [place], [place] | | | | | | [address] | | | | | | [phone] | | | +--------+---------+ + + + [...] more drainage from Malathi drain. Stitches and [place] remov ed. Cardiovascular: RRR, no m/r/g. Abdominal: [...] 2 minutes and 3 seconds. FINDINGS: Initial chemical laboratory assistant image demonstrates a Malathi drain at the [...] weeks. - ERIC FRENCH MD MIS Fellow [facility], Dept. of Surgery Pager [phone] documented in t his encounter Plan of Treatment Not on filedocumented as of this encounter Visit Diagnoses + + | Diagnosis | + + | Anastomotic leak following esophagectomy - Primary Other digestive system | | complications | + + documented in this encounter
--- OUTSIDE RECORDS SUMMARY | ~2020-01-10 | XMS | Encounter Summary ---
Demographics + + + | Address | [address] | | | [place] [address] | + + + | Home Phone [...] [place] | | | | | [address] | | + + + + + | Ronny Edgard | ECON | Unknown | | + + + + + | Char Woodard | ECON | Unknown | | + + + + + Care Team Providers + +------+ + | Care Shadowgraph Operator Name | Role | Phone | [...] | | Procedures | [address] | [facility] | | | | | [place] | [facility] | [facility] and | | | | | MULTIPHASE | Rd | Healing, | | | | | LIVER AND | [place], [place] | [address], | | | | | [address] | [address] | 3rd Floor | | | | | [place] | Phone: | [place], [place] | | | | | [place] ABD&PELV | [phone] | [address] | | | | | 1+ | Fax: | Phone: | | | | | SECTION/REGN | [phone] | [phone] | | | | | S | | Fax: | | | | | | | [phone] | +--------+--------+ + + + + Reason [...] | | | | | CT | [facility] | Health and | | | | | MULTIPHASE | Rd | Healing, | | | | | LIVER AND | [place], [place] | [address], | | | | | [address] | [address] | 3rd Floor | | | | | [place] | Phone: | [place], [place] | | | | | [place] ABD&PELV | [phone] | [address] | | | | | 1+ | Fax: | Phone: | | | | | SECTION/REGN | [phone] | [phone] | | | | | S | | Fax: | | | | | | | [phone] | +--------+--------+ + + + + Encounter Details +--------+ + + + + | Date | Type | Department | Care Team | Description | +--------+ + + + + | 09/16/ | Hospital | Radiology/Imaging | Kendell Castilloie Laura, | | | 2017 | Encounter | Lab at [address] | MD [address] | | | | | [facility] | Ave [place], [place] | | | | | for Health and | [address] | | | | | Healing, [address], | [phone] | | | | | [facility] Floor | | | | | | [place], [place] | | | | | | [address] | | | | | | [phone] | | | +--------+ + + + [...] 0.7 - 1.3 mg/dL | [facility], | | | POC | | | [...] [facility] | [address] | [place] [address] | | | OF CARE TESTS | [...]
--- OUTSIDE RECORDS SUMMARY | ~2020-01-10 | XMS | Encounter Summary ---
Demographics + + + | Address | [address] | | | [place] [address] | + + + | Home Phone | | + + + | Preferred Language | Unknown | + + + | Marital Status | | + + + | Bahai Affiliation | Unknown | + + + | Race | Unknown | + + + | Ethnic Group | Unknown | + + + Author + + + | Author | [facility] | | | and Tobyana | + + + | Organization | [facility] | | [...] | | | | | [place] [address] | | + + + + + Care Team Providers + +------+ + | Care Gym Attendant Name | Role | Phone | [...] | | | | | unspecified | [address] | | | | | | | Phone: | | | | | | Arthrodesis | [phone] | | | | | | status DDD | Fax: | | | | | | (degenerativ | [phone] | | | | | | e [...] | | | [place], [place] | [address] | radiculopathy/neurog | | | | [address]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
--- OUTSIDE RECORDS SUMMARY | ~2020-01-10 | XMS | Encounter Summary ---
Demographics + + + | Address | [address] | | | [place] [address] | + + + | Home Phone [...] [place] | | | | | [address] | | + + + + + | Ronny Rene | ECON | Unknown | + | + + + + + | Char Woodard | ECON | Unknown | | + + + + + Care Team Providers + +------+ + | Care Rn Military Name | Role | Phone | + +------+ + | David Ferrera MD | PCP | | + +------+ + Encounter Details +--------+ + + + + | Date | Type | Department | Care Team | Description | +--------+ + + + + | 03/31/ | Pharmacy | Outpatient Retail | | | | 2014 | Visit | [facility] | | | | | | [address] | | | | | | [address] [place], [place] | | | | | | [address] | | | | | | [phone] | | | +--------+ + + + [...]
--- OUTSIDE RECORDS SUMMARY | ~2020-01-10 | XMS | Encounter Summary ---
Demographics + + + | Address | [address] | | | [place] [address] | + + + | Home Phone [...] [place] | | | | | [address] | | + + + + + | Ronny Rene | ECON | Unknown | + | + + + + + | Char Woodard | ECON | Unknown | | + + + + + Care Team Providers + +------+ + | Care Radiology Resident Name | Role | Phone | + [...] | | 2014 | | Center at [facility] [address] | [address] | - Disregard | | | | [address] [facility] | [place] [facility] | | | | | [facility] and | [place] [address] | | | | | [place] [address] | [phone] | | | | | [place], [place] | | | | | | [address] | | | | | | [phone] | | | +--------+ + + + [...]
--- OUTSIDE RECORDS SUMMARY | ~2020-01-10 | XMS | Encounter Summary ---
Demographics + + + | Address | [address] | | | [place] [address] | + + + | Home Phone | | + + + | Preferred Language | Unknown | + + + | Marital Status | | + + + | Anglican Affiliation | Unknown | + + + | Race | Unknown | + + + | Ethnic Group | Unknown | + + + Author + + + | Author | [facility] | | | and [place]yana | + + + | Organization | [facility] | | | and [place] | + + + | Address | Unknown | + + + | Phone | Unavailable | + + + Support + + + + + | Name | Relationship | Address | Phone | + + + + + | Selena Jimenez | ECON | [address] [id number] | | | | | [place] [address] | | + + + + + Care Team Providers + +------+ + | Care Char Filter Operator Name | Role | Phone | + +------+ + PCP | Unavailable | + +------+ + Encounter Details +--------+ + + + + | Date | Type | Department | Care Team | Description | +--------+ + + + + | 03/27/ | Hospital | [facility] | Bernice Antonio, | | | 2007 - | Encounter | MED CTR GENERIC OP | [address] | | | | | CONV DEPT [address] | [address], | | | 04/18/ | | [place], | [place] [address] | | | 2007 | | [place] [address] | [phone] | | | | | [phone] | | | +--------+ + + + [...] | | | | | | [place] [address] | | | | | | [phone] | | | | | | | | +--------+---------+ + + + documented as of this encounter Visit Diagnoses Not on filedocumented in this encounter"
--- OUTSIDE RECORDS SUMMARY | ~2020-01-10 | XMS | Encounter Summary ---
Demographics + + + | Address | [address] | | | [place] [address] | + + + | Home Phone [...] [place] | | | | | [address] | | + + + + + | Ronny Rene | ECON | Unknown | | + + + + + | Char Woodard | ECON | Unknown | | + + + + + Care Team Providers + +------+ + | Care Central Sterile Technician Name | Role | Phone | + +------+ + | David Ferrera MD | PCP | | + +------+ + Encounter Details +--------+--------+ + + + | Date | Type | Department | Care Team | Description | +--------+--------+ + + + | 01/29/ | Travel | | | | | 2019 | | | | | +--------+--------+ + [...]
--- OUTSIDE RECORDS SUMMARY | ~2020-01-10 | XMS | Encounter Summary ---
Demographics + + + | Address | [address] | | | [place] [address] | + + + | Home Phone [...] [place] | | | | | [address] | | + + + + + | Ronny Rene | ECON | Unknown | | + + + + + | Char Woodard | ECON | Unknown | | + + + + + Care Team Providers + +------+ + | Care Cleaner Touch Up Worker Name | Role | Phone | [...] | TRANSHIATAL | | | | [facility] | Latesha Jesus [place], | ESOPHAGECTOMY, | | | | Hospital Admitting | [place] [address] | FEEDING JEJUNOSTOMY | | | | Desk Located on the | [phone] | TUBE PLACEMENT EGD | | | | 9th floor | | | | | | [place], [place] | | | | | | [address] | | | +--------+---------+ + + + [...] chronic 7) Knee pain, chronic 8) hx ND (myocardial infarction) 9) Hearing loss 10) Esophageal adenocarcinoma 11) Unintentional weight loss 12) Dysphagia Patient Active Problem List Diagnosis Chronic LBP Acid reflux HLD (hyperlipidemia) BP (high blood pressure) Anastomotic leak following esophagectomy GERD (gastroesophageal reflux disease) Hypertension Cheema's esophagus Back pain, chronic Knee pain, chronic hx ND (myocardial infarction) Hearing loss Esophageal adenocarcinoma Unintentional [...] Gastric Motility Qty: 180 tablet, Refills: 0 xkywqkscakgr-viin-yavyajzq oral liquid 15 mL by feeding tube [...] lb 10.8 oz) (04/06/15 0502) Destination: Destination: Group Home [facility] Condition on Discharge Stable Discharge POLST completed Full code Discharge Summary Completed?: Yes, 07 Apr 2015 Discharging Provider: ALE GIPSON MD Date Completed: 07 Apr 2015 Discharging Attending: Vijay Akbar MD documented in this encou nter Discharge Instructions Instructions Lizzette Krishna RN - 04/01/2015 Your nurse caser up with [facility] Plan is [place]; she can [...] Nupur at [facility]. [phone]. Ale Conrad MD - 04/06/2015 9:01 AM [...] with Dr. Akbar. Ale Gipson MD [facility] Surgery R5 Pager [phone] lark, Ale Lester MD - 04/05/2015 9:29 [...] with Dr. Akbar. Ale Gipson MD [facility] Surgery R5 Pager [phone] Gio Ramirez MD - 04/04/2015 8:59 AM [...] today Enoxaparin PPI Gio Lowery MD [facility], General Surgery R-1 P: [phone] lAle grant MD - 04/03/2015 4:24 PM [...] air. Cough is stronger and a little rotary drier feeder than yest erday HEENT: Neck incision intact [...] Practitioner Acute Pain Service [facility] [place] [address] Celso Lopez NP - 7:52 AM PDT INPATIENT ADULT PAIN SERVICE NEURAXIAL BLOCK PROGRESS NOTE 04/03/2015 Author: CELSO PALMER NP POD#[id number]. Status post: Trans-hiatal esophagectomy, pyloromyotomy, J tube placement, bilateral Chest tube placement, colopexy Past Medical History Diagnosis Date GERD (gastroesophageal reflux disease) HTN (hypertension) Cheema's esophagus Knee pain, chronic Back pain, chronic ND (myocardial infarction) s/p CABG x 2 Hearing [...] most activities. Mr. Meredith is satisfied with [facility] level of pain. History of chronic [...] 12.5 mg 12.5 mg feeding tube BID znphvoulutfk-kcrb-pvwcrcia (CEROVITE) liquid 15 mL 15 mL feeding [...] and summary of old medical records (source: [facility]), as summarized in the body of the note. Personal review of laboratory results. CELSO PALMER, MSN, ACNP- Nurse Practitioner [facility] [address] [place] [address] Bebe Hung MD - 04/02/2015 7:22 PM [...] Dispo: acute care Bebe Baldwin MD Pager: [phone] Ale Gerardo A, MD - 04/02/2015 7:41 [...] esophagus Knee pain, chronic Back pain, chronic ND (myocardial infarction) s/p CABG x 2 Hearing [...] most activities. Mr. Meredith is satisfied with [facility] level of pain. History of chronic [...] 12.5 mg 12.5 mg feeding tube BID yyfplejfqnck-cnjd-uznlikvb (CEROVITE) liquid 15 mL 15 mL feeding [...] and summary of old medical records (source: [employer] as summarized in the body of the note. Personal review of laboratory results. CELSO PALMER, MSN, ACNP- Nurse Practitioner [facility] [address] [place] [address] Bulmaro Pitt MD,MPH - 04/01/2015 6:36 PM [...] at 13:37 demonstrating no pneumothorax. etcu, Jennifer, [facility] - 04/01/2015 10:24 AM PDTFormatting of [...] CV - BPs wnl. Tachycardia improved. Hx CAD/ND - s/p CABG x 2 in 2007, [...] and preauth for [place] enoxaparin SAMANTHA GUNN [address] [facility] Mailcode: Kpv13 [place] [address] Celso Lopez NP - 8:45 AM PDT INPATIENT ADULT PAIN SERVICE NEURAXIAL BLOCK PROGRESS NOTE 04/01/2015 Author: CELSO PALMER NP POD#5. Status post: Trans-hiatal esophagectomy, pyloromyotomy, J tube placement, bilateral Chest tube placement, colopexy Past Medical History Diagnosis Date GERD (gastroesophageal reflux disease) HTN (hypertension) Cheema's esophagus Knee pain, chronic Back pain, chronic ND (myocardial infarction) s/p CABG x 2 Hearing loss bialteral hearing aids Interval events since last APS visit: -No acute event overnight -One Chest tube removed Mr. M[place] complains of bilateral chest wall pain. His pain score at rest is 0/10. With activity, his pain score is 2/10. Specific activitie s that exacerbate Mr. Meredith's pain include most activities. Mr. Meredith is satisfied with [facility] level of pain. History of chronic [...] 12.5 mg 12.5 mg feeding tube BID vskcgxdhjqpt-kpsw-unrehymk (CEROVITE) liquid 15 mL 15 mL feeding [...] nd summary of old medical records (source: [employer] as summarized in the body of the note. Personal review of radiological images. Personal review of laboratory results. CELSO PALMER, MSN, ACNP- Nurse Practitioner [facility] [address] [place] [address] Gio Ramirez MD - 0 03/31/2015 11:20 [...] air. Cough is stronger and a little rotary drier feeder than yest erday HEENT: Neck incision intact [...] CV - BPs wnl. Tachycardia improved. Hx CAD/ND - s/p CABG x 2 in 2007, [...] staff with Dr Edgard Lowery MD [facility], General Surgery Celso Lopez NP - 0 03/31/2015 8:07 AM PDT INPATIENT ADULT PAIN SERVICE NEURAXIAL BLOCK PROGRESS NOTE 03/31/2015 Author: CELSO PALMER NP POD#4. Status post: Trans-hiatal esophagectomy, pyloromyotomy, J tube placement, bilatera l Chest tube placement, colopexy Past Medical History Diagnosis Date GERD (gastroesophageal reflux disease) HTN (hypertension) Cheema's esophagus Knee pain, chronic Back pain, chronic ND (myocardial infarction) s/p CABG x 2 Hearing [...] 12.5 mg 12.5 mg feeding tube BID qaehsjktdojn-xadr-oixlclbj (CEROVITE) liquid 15 mL 15 mL feeding [...] primary care team provider Aur a Piotr, ESTIMATOR. Did not reach this provider. For today's evaluation, I have included my personal review of Mr. Meredith's history and physic al examination. I also used the following components in my medical decision making: Review and summary of old medical records (source: [employer] as summarized in the body of the note. Personal review of radiological images. Personal review of laboratory results. CELSO PALMER, MSN, ACNP-BC Nurse Practitioner [facility] [address] [place] [address] Bulmaro Pitt MD,MPH - 03/30/2015 9:33 AM [...] air Cough is stronger and a little rotary drier feeder than yesterday NGT functioning with green-brown output [...] CV - BPs wnl. Tachycardia improved. Hx CAD/ND - s/p CABG x 2 in 2007, [...] staff with Dr Edgard Hernandez MD, MPH [address] Division of Plastic & Reconstructive Surgery Pager: [phone] au Cisse - 03/30 8:54 AM PDT [...] 12.5 mg 12.5 mg feeding tube BID uveednpcvuuy-bepb-cbrmbsow (CEROVITE) liquid 15 mL 15 mL feeding [...] borderline HTN, no arrhthymias overnight. Tachycardic. Hx CAD/ND - s/p CABG x 2 in 20 [...] Dr Edgard Hernandez MD, MPH R2 [facility] Division of Plastic & Reconstructive Surgery Pager: [phone] Justo Palm MD - 03/29/2015 8:11 AM [...] deep breathing. [facility]. [place] [facility]. History of chronic or [...] injection 5 mg 5 mg intravenous Q6H lmikzdmsgfbs-dfyr-gtmoumjd (CEROVITE) liquid 15 mL 15 mL feeding [...] on TSICU rounds. Mau Wu MS4 [facility] Sweetie, Bulmaro Gil MD ,MPH - 03/28/2015 [...] - borderline HTN, no arrhthymias overnight. Hx CAD/ND - s/p CABG x 2 in 2007, [...] Dr Edgard Hernandez MD, MPH R2 [facility] Division of Plastic & Reconstructive Surgery Pager: [phone] Bob Mares MD - 03/28/2015 11:09 AM PDTTrauma / Surgical Critical Care Service - Progress Note Name: JUNAID MEREDITH Date: 03/28/2015 Time: 11:09 AM Author: BOB EDOUARD MD HPI: 75 y.o. male with history of severe GERD and Cheema's for 3 years. He was diagnosed with h igh-grade Cheema's and referred to [facility] for ablation. However, In December 2014 [...] Bob [place]ouard MD General Surgery, R2 Pager [phone] Dept of Surgery SICU/TICU Contact First Call [...] pulmonary toilet. Justo Garcia MD, MPH, FACS, [facility] student career development specialist Trauma, Surgical Critical Care, & Acute Care Surgery [facility] [phone] Ivanna Moreno MD - 03/28/2015 8:23 AM [...] MIS Fellow [facility] Dept. of Surgery Pager [phone] documented in t his encounter Plan of [...] [facility] | [address] | [place] [address] | | | [place] | PARK [...] | + + + + + | [facility] | [address] | [place] [address] | | | SERVICES, CORE | LATESHA [...] [facility] | [address] | [place] [address] | | | SERVICES, CORE | PARK [...] + + + + + | [facility] | [address] | [place] [address] | | | SERVICES, CORE | LATESHA [...] | 60 - 99 mg/dL | [facility] - | | | GLUCOSE, | [...] HERNANDEZ | [address] | [place], [place] | | | YG POINT OF CARE | [address] | [address] | | | TESTS | | | | + + + + + X-RAY PORTABLE CHEST 1 VIEW (04/05/2015 1:13 PM PDT) + + + + + + | Component | Value | Ref Range | Performed | Pathologist | | | | | At | Signature | + + + + + + | X-RAY | STUDY: NM CHEST 1 VIEW | | | | [...] [facility] | [address] | [place], [place] | | | [place] | [address] | [address] | | | TESTS | | | [...] MADYAM | [address] | [place], [place] | | | WAY[place] POINT OF CARE | [address] | [address] | | | TESTS | | | [...] [facility] | [address] | [place] [address] | | | SERVICES, CORE | PARK [...] LABORATORY | [address] | [place] [address] | | | SERVICES, CORE | PARK [...] >60 mL/min | [facility] | | | -[facility] | | | LABOR[facility] | | | [...] | + + + + + | [facility] | [address] | [place] [address] | | | [place], [place] | [address] | | | + + + + + X-RAY PORTABLE CHEST 1 VIEW (04/05/2015 5:09 AM PDT) + + + + + + | Component | Value | Ref Range | Performed | Pathologist | | | | | At | Signature | + + + + + + | X-RAY | EXAM: NM CHEST 1 VIEW | | | | [...] | + +---------+ + + | [facility] DEPARTMENT OF | | | | [...] MADYAM | [address] | [place] | | | YG POINT OF CARE | [address] | [address] | | | TESTS | | | [...] MARQUAM | [address] | [place], [place] | | | [place] | [address] | [address] | | | TESTS | | | [...] HERNANDEZ | [address] | [place], [place] | | | [place] OF CARE | [address] | [address] | | | TESTS | | | [...] MARLINOAM | [address] | [place] | | | [place] OF CARE | [address] | [address] | | | TESTS | | | [...] | + + + + + | [facility] | [address] | [place] [address] | | | SERVICES, CORE | LATESHA [...] [facility] | [address] | [place] [address] | | | SERVICES, CORE | PARK [...] | + + + + + | [facility] | [address] | [place] [address] | | | SERVICES, CORE | [address] | | | + + + + + X-RAY PORTABLE CHEST 1 VIEW (04/04/2015 3:24 AM PDT) + + + + + + | Component | Value | Ref Range | Performed | Pathologist | | | | | At | Signature | + + + + + + | X-RAY | EXAM: NM CHEST 1 VIEW | | | | [...] | + +---------+ + + | [facility] DEPARTMENT OF | | | | [...] DAVID | [address] | [place], [place] | | | [place] | [facility] | [address] | | | TESTS | | | [...] | 60 - 99 mg/dL | [facility] - | | | GLUCOSE, | [...] HERNANDEZ | [address] | [place], [place] | | | YG POINT OF CARE | [address] | [address] | | | TESTS | | | [...] DAVID | [address] | [place], [place] | | | [place] | [address] | [address] | | | TESTS | | | [...] | + +---------+ + + | [facility] DEPARTMENT OF | | | | | RADIOLOGY | | | | + +---------+ + + X-RAY PORTABLE CHEST 1 VIEW (04/03/2015 7:24 AM PDT) + + + + + + | Component | Value | Ref Range | Performed | Pathologist | | | | | At | Signature | + + + + + + | X-RAY | EXAM: NM CHEST 1 VIEW | | | | [...] MARQUAM | [address] | [place], [place] | | | YG POINT OF CARE | [address] | [address] | | | TESTS | | | [...] | + + + + + | [facility] | [address] | [place] [address] | | | [place], [place] | LATESHA [...] + + + + + | [facility] | [address] | [place] [address] | | | [place] | PARK [...] | + + + + + | [facility] | [address] | [place] [address] | | | SERVICES, CORE | PARK [...] MADYAM | [address] | [place], [place] | | | [place] | [address] | [address] | | | TESTS | | | [...] HERNANDEZ | [address] | [place], [place] | | | YG POINT OF CARE | [address] | [address] | | | TESTS | | | [...] species 2 colony types Please contact | [place] | | the microbiology laboratory if further [...] | + + + + + | [facility] | [address] | [place] [address] | | | [place] | | | | + + + [...] MADYAM | [address] | [place], [place] | | | YG POINT OF CARE | [address] | [address] | | | TESTS | | | [...] [facility] | [address] | [place] [address] | | | SERVICES, | [address] [...] [facility] | [address] | [place] [address] | | | SERVICES, | [address] [...] + + + | X-RAY | EXAM: NM CHEST 1 VIEW | | | | [...] | + +---------+ + + | [facility] DEPARTMENT OF | | | | [...] DAVID | [address] | [place], [place] | | | YG POINT OF CARE | [address] | [address] | | | TESTS | | | [...] [facility] | [address] | [place] [address] | | | SERVICES, CORE | PARK [...] [facility] | [address] | [place] [address] | | | SERVICES, CORE | PARK [...] | + + + + + | [facility] | [address] [facility] | [place] [address] | | | SERVICES, [place] | LATESHA [...] MARQU[facility] | [address] | [place], [place] | | | S[place] OF CARE | [address] | [address] | | | TESTS | | | [...] MARQUAM | [address] | [place], [place] | | | [place] OF CARE | [address] | [address] | | | TESTS | | | [...] | + + + + + | [facility] | [address] | [place] [address] | | | SERVICES, CORE | [address] | | | + + + + + X-RAY PORTABLE CHEST 1 VIEW (04/01/2015 1:37 PM PDT) + + + + + + | Component | Value | Ref Range | Performed | Pathologist | | | | | At | Signature | + + + + + + | X-RAY | EXAM: NM CHEST 1 VIEW | | | | [...] HERNANDEZ | [address] | [place], [place] | | | [place] | [facility] | [address] | | | TESTS | | | | + + + + + X-RAY PORTABLE CHEST 1 VIEW (04/01/2015 6:54 AM PDT) + + + + + + | Component | Value | Ref Range | Performed | Pathologist | | | | | At | Signature | + + + + + + | X-RAY | EXAM: NM CHEST 1 VIEW | | | | [...] MARQU[facility] | [address] | [place], [place] | | | [place] OF CARE | [address] | [address] | | | TESTS | | | [...] | + + + + + | [facility] | [address] | [place] [address] | | | SERVICES, CORE | LATESHA [...] [facility] | [address] | [place] [address] | | | SERVICES, CORE | PARK [...] + + + + + | [facility] | [address] | [place] [address] | | | SERVICES, CORE | LATESHA [...] DAVID | [address] | [place], [place] | | | SHI [place]QU[place] | [facility] | [address] | | | TESTS | | | [...] HERNANDEZ | [address] | [place], [place] | | | [place] | [address] | [address] | | | TESTS | | | [...] MARQUAM | [address] | [place], [place] | | | YG POINT OF CARE | [address] | [address] | | | TESTS | | | [...] HERNANDEZ | [address] | [place], [place] | | | [facility] | [facility] | [address] | | | TESTS | | | | + + + + + X-RAY PORTABLE CHEST 1 VIEW (03/31/2015 5:38 AM PDT) + + + + + + | Component | Value | Ref Range | Performed | Pathologist | | | | | At | Signature | + + + + + + | X-RAY | EXAM: NM CHEST 1 VIEW | | | | [...] [facility] | [address] | [place] [address] | | | [place] | LATESHA [...] [facility] | [address] | [place] [address] | | | SERVICES, CORE | PARK [...] | + + + + + | [facility] | [address] | [place] [address] | | | SERVICES, CORE | LATESHA [...] MARQUAM | [address] | [place], [place] | | | YG POINT OF CARE | [address] | [address] | | | TESTS | | | [...] HERNANDEZ | [address] | [place], [place] | | | SHI [place] | [address] | [address] | | | TESTS | | | | + + + + + X-RAY PORTABLE CHEST 1 VIEW (03/30/2015 5:54 AM PDT) + + + + + + | Component | Value | Ref Range | Performed | Pathologist | | | | | At | Signature | + + + + + + | X-RAY | STUDY: NM CHEST 1 VIEW | | | | [...] + + + + + | [facility] | [address] | [place] [address] | | | SERVICES, CORE | PARK [...] | + + + + + | [facility] | [address] | [place] [address] | | | SERVICES, [place] | LATESHA [...] | + + + + + | [facility] | [address] [facility] | [place] [address] | | | SERVICES, [place] | LATESHA [...] [facility] | | | DARONE | by [employer],[address] | | REG UNIV | | | | Miranda Patel, [facility] | | PTH - INTFC | | | | [phone] | | | | | | [phone].[employer]. | | | | | | Omer [...] [facility] | [address] | [place], [place] | | | UNIV PTH - INT[facility] | | [phone] | | + + + + + [...] HERNANDEZ | [address] | [place], [place] | | | [place] | [facility] | [address] | | | TESTS | | | [...] MARQU[facility] | [address] | [place], [place] | | | S[place] OF CARE | [address] | [address] | | | TESTS | | | [...] [facility] | [address] | [place] [address] | | | SERVICES, CORE | LATESHA [...] [facility] | [address] | [place] [address] | | | SERVICES, CORE | PARK [...] | + + + + + | [facility] | [address] | [place] [address] | | | SERVICES, CORE | LATESHA [...] + + + + + | [facility] | [address] | [place] [address] | | | SERVICES, CORE | PARK [...] HERNANDEZ | [address] | [place], [place] | | | [place] | [facility] | [address] | | | TESTS | | | [...] | + + + + + | [facility] | [address] | [place] [address] | | | SERVICES, CORE | [address] | | | + + + + + MAGNESIUM, PLASMA (03/29/2015 6:38 AM PDT) + +-------+ + + + | Component | Value | Ref Range | Performed | Pathologist | | | | | At | Signature | + +-------+ + + + | MAGNESIUM,P | 2.0 | 1.8 - 2.5 mg/dL | [facility] | | | LASMA | | [...] + + + + + | [facility] | [address] | [place] [address] | | | SERVICES, CORE | PARK [...] | + + + + + | [facility] | [address] | [place] [address] | | | SERVICES, [place] | [address] | | | + + + + + X-RAY PORTABLE CHEST 1 VIEW (03/29/2015 5:57 AM PDT) + + + + + + | Component | Value | Ref Range | Performed | Pathologist | | | | | At | Signature | + + + + + + | X-RAY | EXAM: NM CHEST 1 VIEW | | | | [...] | | + +---------+ + + | [facility] | | | | | RADIOLOGY | | | | + +---------+ + + OPERATION RECORD (03/28/2015 3:46 PM PDT) + + | Transcriptions | + + | Eric Conley MD - 03/27/2015 9:17 PM PDT Date of Service: 03/27/2015 | | Attending Surgeon: Vijay Akbar MD Water Chaser(s): Tito Rene MD | | MD Bulmaro [...] trocar, 11 mm, using the | | ModuleQStep system w, approximately 17 cm from the [...] to our mediastinal dissection. We placed a Morgan drain around | | our esophagus, and [...] of the specimen. We then passed a 28-Swedish | | chest tube from the neck [...] 03/27/2015 | | 18:54:08DT: 03/27/2015 21:17:00Job #: [id number] | + + CAPILLARY BLOOD GLUCOSE (NO [...] [facility] | [address] | [place], [place] | | | [facility] | [facility] | [address] | | | TESTS | | | | + + + + + X-RAY PORTABLE CHEST 1 VIEW (03/28/2015 6:05 AM PDT) + + + + + + | Component | Value | Ref Range | Performed | Pathologist | | | | | At | Signature | + + + + + + | X-RAY | EXAM: NM CHEST 1 VIEW | | | | [...] [facility] | [address] | [place] [address] | | | SERVICES, CORE | PARK [...] [facility] | [address] | [place] [address] | | | SERVICES, CORE | PARK [...] | + + + + + | [facility] | [address] | [place] [address] | | | SERVICES, CORE | [address] | | | + + + + + X-RAY PORTABLE CHEST 1 VIEW (03/27/2015 3:50 PM PDT) + + + + + + | Component | Value | Ref Range | Performed | Pathologist | | | | | At | Signature | + + + + + + | X-RAY | EXAM: NM CHEST 1 VIEW | | | | [...] HER[facility] | [address] | [place], [place] | | | S[place] OF CARE | [address] | [address] | | | TESTS | | | [...] [facility] | [address] | [place] [address] | | | SERVICES, CORE | PARK [...] | + + + + + | [facility] | [address] | [place] [address] | | | [place], [place] | LATESHA [...] + + + + + | [facility] | [address] | [place] [address] | | | SERVICES, CORE | LATESHA [...] HERNANDEZ | [address] | [place], [place] | | | S[place] OF CARE | [address] | [address] | | | TESTS | | | [...] | | | | | | SADE RONUQILLO | | | | | | OF [...] DAVID | [address] | [place], [place] | | | S[place] OF [place]RIS | [address] | [address] | | | TESTS | | | [...] DAVID | [address] | [place], [place] | | | S[place] OF [place] | [facility] | [address] | | | TESTS | | | | + + + + + GLUCOSE, POC (03/27/2015 2:16 PM PDT) + +---------+ + + + | Component | Value | Ref Range | Performed | Pathologist | | | | | At | Signature | + +---------+ + + + | GLUCOSE, | 135 (H) | 60 - 99 mg/dL | [facility] - | | | POC | [...] DAVID | [address] | [place], [place] | | | YG POINT OF CARE | [address] | [address] | | | TESTS | | | [...] HERNANDEZ | [address] | [place], [place] | | | S[facility] [place] OF [place] | [facility] | [address] | | | TESTS | | | [...] ADITIQUAM | [address] | [place], [place] | | | S[facility] OF CARE | [facility] | [address] | | | TESTS | | | [...] HERNANDEZ | [address] | [place], [place] | | | YG POINT OF CARE | [address] | [address] | | | TESTS | | | [...] MARLINOAM | [address] | [place], [place] | | | SADE RONQUILLO OF [place]RIS | [address] | [address] | | | TESTS | | | [...] DAVID | [address] | [place], [place] | | | SADE [place] [facility] [place] | [address] | [address] | | | TESTS | | | [...] HERNANDEZ | [address] | [place], [place] | | | YG POINT OF CARE | [address] | [address] | | | TESTS | | | [...] MARQUAM | [address] | [place], [place] | | | YG POINT OF CARE | [address] | [address] | | | TESTS | | | [...] - DAVID | [address] | [place], [place] | | | SADE RONQUILLO OF CARE | [address] | [address] | | | TESTS | | | [...] HERNANDEZ | [address] | [place], [place] | | | SADE [place] OF [place]RIS | [facility] | [address] | | | TESTS | | | [...] MARQUAM | [address] | [place], [place] | | | SADE RONQUILLO OF CARE | [address] | [address] | | | TESTS | | | [...] | [facility] | [address] | [place], [place] | | | SADE RONQUILLO OF CARE | [facility] | [address] | | | TESTS | | | [...] HERNANDEZ | [address] | [place], [place] | | | YG POINT OF CARE | [address] | [address] | | | TESTS | | | [...] MARQUAM | [address] | [place], [place] | | | YG POINT OF CARE | [address] | [address] | | | TESTS | | | [...] - DAVID | [address] | [place], [place] | | | SADE RONQUILLO OF CARE | [address] | [address] | | | TESTS | | | [...] HERNANDEZ | [address] | [place], [place] | | | SADE [facility]ONQUILL[place] OF CARE | [address] | [address] | | | TESTS | | | [...] + + | [facility] | [address] | [place], [place] | | | SADE [place]ONQUILLO OF CARE | [address] | [address] | | | TESTS | | | [...] MARQUAM | [address] | [place], [place] | | | SADE [place] OF [place]RIS | [facility] | [address] | | | TESTS | | | [...] HERNANDEZ | [address] | [place], [place] | | | YG POINT OF CARE | [address] | [address] | | | TESTS | | | [...] MARLINOAM | [address] | [place], [place] | | | SADE [place]ONQUILLO OF CARE | [address] | [address] | | | TESTS | | | [...] HERNANDEZ | [address] | [place], [place] | | | YG POINT OF CARE | [address] | [address] | | | TESTS | | | [...] MARQUAM | [address] | [place], [place] | | | SADE RONQUILLO OF CARE | [address] | [address] | | | TESTS | | | [...] GONSALO HERNANDEZ | [address] | [place], [place] | | | SADE RONQUILLO OF CARE | [facility] | [address] | | | TESTS | | | [...] HERNANDEZ | [address] | [place], [place] | | | YG POINT OF CARE | [address] | [address] | | | TESTS | | | [...] HERNANDEZ | [address] | [place], [place] | | | SADE [place] | [address] | [address] | | | TESTS | | | [...] MADYAM | [address] | [place] | | | SADE [place] OF [place]IS | [facility] | [address] | | | TESTS | | | [...] HERNANDEZ | [address] | [place], [place] | | | YG POINT OF CARE | [address] | [address] | | | TESTS | | | [...] HERNANDEZ | [address] | [place], [place] | | | SADE RONQUILLO OF CARE | [address] | [address] | | | TESTS | | | [...] DAVID | 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 | | | | | | perpendicular section of | | | | | | distal gastric | | | | | | [id number], entire | | | | | | adipose tissue from mid | | | | | | esophagus, entire | | | | | | fatD18, distal | | | | | | esophagus, five possible | | | | | | lymph [id number], | | | | | | distal esophagus, | | | | | | remaining fatD21, five | | | | | | possible lymph erauaT74, | | | | | | five possible lymph | | | | | | [id number], five possible | | | | | | lymph [id number], one | | | | | | possible lymph nodeD25, | | | | | | distal stomach, four | | | | | | possible lymph [id number], | | | | | | distal [...] | + + + + + | [facility] | [address] | [place] [address] | | | PATHOLOGY | [address] [...]
--- OUTSIDE RECORDS SUMMARY | ~2020-01-10 | XMS | Clinical Summary ---
Demographics + + + | Address | [address] | | | [place] [address] | + + + | Home Phone | | + + + | Preferred Language | Unknown | + + + | Marital Status | | + + + | Restorationist Affiliation | NON | + + + | Race | White | + + + | Ethnic Group | Not or | + + + Author + + + | Author | [facility] | + + + | Organization | [facility] | + + + | Address | Unknown | + + + | Phone | Unavailable | + + + Support + + + + + | Name | Relationship | Address | Phone | + + + + + | Selena Tony | ECON | [address] | | | | | [place], [place] | | | | | [address] | | + + + + + | Ronny Rene | ECON | Unknown | | + + + + + | Char Woodard | ECON | Unknown | | + + + + + Care Team Providers + +------+ + | Care Air Breaker Operator Name | Role | Phone | + +------+ + | David Ferrera MD | PCP | | + +------+ + Source Comments NATASHAADAN is fully live on both EpicCare Ambulatory and EpicCare InPatient.[facility] Allergies + + + + + + | Active Allergy | Reactions | Severity | Noted | Comments | | | | | Date | | + + + + + + | Adhesive Tape | Rash | | 02/15/20 | Paper tape is fine | | | | | 15 | to use | + + + + + + Medications + + + +---------+------+------+-------+ | [...] | | | + + + +---------+------+------+-------+ +---+ + | | Additional | | | InformationPatient | | | not taking. Reported | | | on 03/12/2019 10:29 | | | AM | +---+ + + + +---------+---+------+---+-------+ | aspirin chewable | Chew and swallow 81 | | 0 | 07/2 | | Activ | | (CHILDRENS ASPIRIN) | mg once daily. | | | 0/20 | | e | | 81 mg oral | | | | 15 | | | | tablet,chewable | | | | | | | + + +---------+---+------+---+-------+ | multivitamin with | Take 400 mcg by | | 0 | | | Activ | | folic acid 400 mcg | mouth once daily. | | | | | e | | oral tablet | | | | | | | + + +---------+---+------+---+-------+ | omeprazole 40 mg | Take 1 [...] | | | | | + + +---------+---+------+---+-------+ +---+ + | | Additional | | | InformationPatient | | | not taking. Reported | | | on 03/12/2019 10:29 | | | AM | +---+ + + + +--------+---+------+---+-------+ | acetaminophen 500 | Take 1 tablet by | | 0 | 05/1 | | Activ | | mg oral | mouth four times | | | 01/06 | | e | | tabletIndications: | daily as needed | | | 19 | | | | pain | (mild to moderate | | | | | | | | pain). Indications: | | | | | | | | Pain | | | | | | + + +--------+---+------+---+-------+ | ibuprofen 400 mg | Take 1 tablet by | | 0 | 05/1 | | Activ | | oral | mouth every four | | | 4/20 | | e | | tabletIndications: | hours as needed | | | 19 | | | | pain | (mild to moderate | | | | | | | | pain). Indications: | | | | | | | | Pain | | | | | | + + +--------+---+------+---+-------+ | oxyCODONE | Take 0.5-1.5 tablets | 25 | 0 | 05/1 | | Activ | | (immediate release) | by mouth every four | tablet | | 4/20 | | e | | 5 mg oral | hours as needed for | | | 19 | | | | tabletIndications: | moderate pain or | | | | | | | pain | severe pain. | | | | | | | | Indications: Pain | | | | | | + + +--------+---+------+---+-------+ +---+ + | | Additional | | | InformationPatient | | | not taking. Reported | | | on 03/12/2019 10:29 | | | AM | +---+ + + + +--------+---+------+---+-------+ | ondansetron ODT 8 | Dissolve 1 tablet on | 10 | 0 | 05/1 | | Activ | | mg oral | tongue and swallow | tablet | | 01/06 | | e | | tablet,disintegratin | every eight hours as | | | 19 | | | | g | needed (nausea). | | | | | | + + +--------+---+------+---+-------+ +---+ + | | Additional | | | InformationPatient | | | not taking. Reported | | | on 03/12/2019 10:29 | | | AM | +---+ + + + +---+---+---+---+-------+ | metoclopramide HCl | Take 10 mg by mouth. | | 0 | | | Activ | | 10 mg oral tablet | | | | | | e | + + +---+---+---+---+-------+ Active Problems + + + | Problem [...] 04/04/2015 | + + + | hx MN (myocardial infarction) | 04/04/2015 | + + [...] | + + + | Esophageal adenocarcinoma | | + + + | Unintentional [...] 07/13/2017 | | | vaccination (#1) | 9 | | | + + + + + | Pneumococcal | Completed | 02/26/2019, 12/14/2018 | | | vaccination | | | | + + + + + Implants + +------+--------+ +--------+--------+--------+ | Implanted | Type | Area | Manufacture | Device | Shelf | Model | | | | | r | | Expira | / | | | | | | Identi | tion | Serial | | | | | | fier | Date | / Lot | + +------+--------+ +--------+--------+--------+ | [place] P[place]get Ptfe 2.5cm X | | N/A: | BARD | | 11/16/ | [id number] | | 15cm - [id number]: Qty: | | Abdome | | | 2020 | | | 1 on 03/27/2015 by Raffy | | concetta | | | | /[id number] | | MD Vijay at [facility] | | | | | | 6 | | REV LOC | | | | | | /[id number] | | | | | | | | 269 | + +------+--------+ +--------+--------+--------+ | Right P3 10 Hole | | Right: | ACUMED | | | 7001-0 | | PlateImplanted: Qty: 1 on | | Upper | | | | 110R / | | 2019 by Glenn Siegel, | | Josse | | | | / | | at [facility] INPATIENT REV LOC | | | | | | | + +------+--------+ +--------+--------+--------+ + + | Description:ACUMED POLARIS | | TRAY | + + + +---+--------+--------+---+---+--------+ | 3.5x32mm NlscrewImplanted: | | Right: | ACUMED | | | 3025-3 | | Qty: 4 on 2019 by | | Upper | | | | 5032 / | | Glenn Siegel MD at [facility] | | Arm | | | | / | | INPATIENT REV LOC | | | | | | | + +---+--------+--------+---+---+--------+ + + | Description:ACUMED POLARIS | | TRAY | + + + +---+--------+--------+---+---+--------+ | 4.3x48mm Locking | | Right: | ACUMED | | | 3011-4 | | ScrewImplanted: Qty: 2 on | | Upper | | | | 3048 / | | 2019 by Glenn Siegel, | | Arm | | | | / | | MD at [facility] REV LOC | | | | | | | + +---+--------+--------+---+---+--------+ + + | Description:ACUMED POLARIS | | TRAY | + + + +---+--------+--------+---+---+--------+ | 4.3 X 40mm Locking | | Right: | ACUMED | | | 3011-4 | | ScrewImplanted: Qty: 1 on | | Upper | | | | 3040 / | | 2019 by Glenn Siegel, | | Arm | | | | / | | MD at [facility] REV LOC | | | | | | | + +---+--------+--------+---+---+--------+ + + | Description:ACUMED POLARIS | | TRAY | + + + +---+--------+--------+---+---+--------+ | 4.3x50mm Locking | | Right: | ACHARESH | | | 3011-4 | | ScrewImplanted: Qty: 2 on | | Upper | | | | 3050 / | | 2019 by Glenn Siegel, | | Josse | | | | / | | at [facility] REV LOC | | | | | | | + +---+--------+--------+---+---+--------+ + + | Description:ACUMED POLARIS | | TRAY | + + Results Not on filefrom Last 3 Months Insurance + +--------+ +--------+ + +--------+ | Payer | Benefi | Subscriber | Effect | Phone | Address | Type | | | t Plan | ID | jaun | | | | | | / | | Dates | | | | | | Group | | | | | | + +--------+ +--------+ + +--------+ | MEDICARE | MEDICA | xxxxxxxxxxx | 09/19/18 | [phone] | [address] | Med[address] | | | RE A & | | [address] | [phone] | re | | | B | | sent | | [place], [place] | | | | | | | | [address] | | + +--------+ +--------+ + +--------+ | COMMERCIAL GROUP | COMMER | xxxxxxxxxx | Effect | | | Indemn | | | CIAL | | jaun | | | ity | | | GROUP | | for | | | | | | | | all | | | | | | | | dates | | | | + +--------+ +--------+ + +--------+ + +--------+ +--------+ + + | Guarantor Name | Accoun | Relation to | Date | Phone | Billing Address | | | t Type | Patient | of | | | | | | | | | | + +--------+ +--------+ + + | Junaid Jimenez | Person | Self | [birth year] | [address] | | | al/Fam | | 1940 | [phone] | [place] [address] | | | hayley | | | 4 (Home) | | + +--------+ +--------+ + + Advance Directives + + + + + | Code Status | Date | Date | Comments | | | Activated | Inactivated | | + + + + + | Full Code | 2019 | 01/31/2019 | | | | 9:06 AM | 3:09 PM | | + + + + + + + + +---+ | | | | | + + + +---+ | Full Code | 03/27/2015 | 04/07/2015 | | | | 6:04 PM | 7:28 PM | | + + + +---+ + + + +---+ | | | | | + + + +---+ | Full Code | 03/27/2015 | 03/27/2015 | | | | 6:58 AM | 6:04 PM | | + + + +---+
--- OUTSIDE RECORDS SUMMARY | ~2020-01-10 | XMS | Encounter Summary ---
Demographics + + + | Address | [address] | | | [place] [address] | + + + | Home Phone [...] Author | [facility] | | | and Tobyana | + + + | Organization | [facility] [...] | | | | | [place] [address] | | + + + + + Care Team Providers + +------+ + | Care Water Analyst Name | Role | Phone | + +------+ + | Mingo Burgos DO | PCP | | + +------+ + Encounter Details +--------+ + + + + | Date | Type | Department | Care Team | Description | +--------+ + + + + | 06/04/ | Hospital | [facility] | Roderick Gill | Chronic low back | | 2013 | Encounter | MED CTR XRAY [address] | [address], [address] | pain; DDD | | | | [place] | [place], [place] | (degenerative disc | | | | [place] [address] | [address] | disease), lumbar; | | | | [phone] | | S/P lumbar spinal | | | | | | fusion; Lumbar | | | | | | radiculopathy/neurog | | | | | | enic claudication; | | | | | | Shoulder pain, | | | | | | bilateral | +--------+ + + + + Social [...] | | | | | | [place] [address] | | | | | | [phone] | | | | | | | | +--------+---------+ + + + documented as of this encounter Procedures + +--------+ + + + | Procedure Name | Priori | Date/Time | Associated Diagnosis | Comments | | | ty | | | | + +--------+ + + + | XR SHOULDER LEFT 2 + | Routin | 06/04/2014 | Shoulder pain, | Results for this | | VW | e | 11:35 AM | bilateral | procedure are in the | | | | PDT | | results section. | + +--------+ + + + | XR LUMBAR SPINE 4 + | Routin | 06/04/2014 | Chronic low back | Results for this | | VW | e | 11:35 AM | pain DDD | procedure are in the | | | | PDT | (degenerative disc | results section. | | | | | disease), lumbar | | | | | | S/P lumbar spinal | | | | | | fusion Lumbar | | | | | | radiculopathy/neurog | | | | | | enic claudication | | + +--------+ + + + | XR SHOULDER RIGHT 2 | Routin | 06/04/2014 | Shoulder pain, | Results for this | | + VW | e | 11:35 AM | bilateral | procedure are in the | | | | PDT | | results section. | + +--------+ + + + documented in this encounter Results XR Shoulder Right 2 [...] + | MISCELLANEOUS LAB | | | [phone] | + +---------+ + + | MISCELANIOUS LAB | | | [phone] | + +---------+ + + XR Shoulder [...] + | MISCELLANEOUS LAB | | | [phone] | + +---------+ + + | MISCELANIOUS LAB | | | [phone] | + +---------+ + + XR Lumbar [...] | Procedure Note | + + | Eamon Monsivais Results In - 06/04/2014 12:53 PM PDT [...] + | MISCELLANEOUS LAB | | | [phone] | + +---------+ + + | MISCELANIOUS LAB | | | [phone] | + +---------+ + + documented in this encounter Visit Diagnoses + + | Diagnosis | + + | Chronic low back pain Lumbago | + + | DDD (degenerative disc disease), lumbar Degeneration of lumbar or lumbosacral | | intervertebral disc | + + | S/P lumbar spinal fusion Arthrodesis status | + + | Lumbar radiculopathy/neurogenic claudication Thoracic or lumbosacral neuritis or | | radiculitis, unspecified | + + | Shoulder pain, bilateral Pain in joint, shoulder region | + + documented in this encounter"
--- OUTSIDE RECORDS SUMMARY | ~2020-01-10 | XMS | Encounter Summary ---
Demographics + + + | Address | [address] | | | [place] [address] | + + + | Home Phone [...] + + + | Author | [facility] | + + + | Organization | [facility] | + + + | Address | Unknown | + + + | Phone | Unavailable | + + + Support + + + + + | Name | Relationship | Address | Phone | + + + + + | Selena Jimenez | ECON | [address] | | | | | [place] | | | | | [address] | | + + + + + | Ronny Edgard | ECON | Unknown | | + + + + + | Char Woodard | ECON | Unknown | | + + + + + Care Team Providers + +------+ + | Care Reversing Mill Roller Name | Role | Phone | + [...] | | | | | closed | [address] | | | | | | displaced | Ave | | | | | | fracture of | [place], [place] | | | | | | proximal end | [address] | | | | | | of humerus | Phone: | | | | | | with routine | [phone] | | | | | | healing, | Fax: | | | | | | unspecified | [phone] | | | | | | laterality, [...] | | 2019 | | Faculty at [place] | [address] [facility] | | | | | for [facility] and | [facility] | | | | | Healing [address] | [place], [place] | | | | | [facility] | [address] | | | | | Health and Healing, | [phone] | | | | | [facility] | | | | | | [place], [place] | | | | | | [address] | | | | | | [phone] | | | +--------+ + + + [...]
--- OUTSIDE RECORDS SUMMARY | ~2020-01-10 | XMS | Encounter Summary ---
Demographics + + + | Address | [address] | | | [place] [address] | + + + | Home Phone | | + + + | Preferred Language | Unknown | + + + | Marital Status | | + + + | Cheondoism Affiliation | Unknown | + + + | Race | Unknown | + + + | Ethnic Group | Unknown | + + + Author + + + | Author | [facility] | | | and Tobyana | + + + | Organization | [facility] | | | and [...] | | | | | [place] [address] | | + + + + + Care Team Providers + +------+ + | Care Shipwright Supervisor Name | Role | Phone | [...] + + | 11/07/ | Office | [facility] | Marisela Sialeonor, | 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, | presence | | | | [place] [address] | [place] [address] | unspecified, | | | | [phone] | [phone] | unspecified vessel | | | | | | or lesion type, | | | | | | unspecified whether | | | | | | mi'kmaq or | | | | | | [...] RESULTS reviewed during visit today primarily from [facility]: LIPID Lab Results Component Value Date CHOL [...] He is in a class I of [employer] funct ional class. There is [...] today. A. Patient underwent a esophagectomy at [facility] on 03/27/15. He was to ld [...] reviewed and edited this note. Char Hermosillo, Medical Bill Processor 11/07/2018 I, Bernice Antonio MD, personally performed the services described in this documentation, as scribed in my presence and it is both accurate and complete. Char Hermosillo, Med Ass t 11/07/2018 9:18 Electronically signed by: Bernice Antonio MD [facility] 11/07/2018 Portions of this chart may have been created with [employer] voice recognition software. Occasi onal wrong-word or [...] | | | | | | [place] [address] | | | | | | [phone] | | | | | | | [...] whether | | | | | | mi'kmaq or | | | | | | [...] MD | | | | | | ([id number]) on 11/07/2018 | | | | | [...] or lesion | | type, unspecified whether mi'kmaq or transplanted heart - Primary | + + documented in this encounter
--- OUTSIDE RECORDS SUMMARY | ~2020-01-10 | XMS | Encounter Summary ---
Demographics + + + | Address | [address] | | | [place] [address] | + + + | Home Phone [...] Author | [facility] | | | and Tobyana | + + + | Organization | [facility] | [...] | | | | | [place] [address] | | + + + + + Care Team Providers + +------+ + | Care Deputy Controller Name | Role | Phone | + +------+ + PCP | Unavailable | + +------+ + Encounter Details +--------+ + + + + | Date | Type | Department | Care Team | Description | +--------+ + + + + | 03/30/ | Hospital | [facility] | | | | 1992 | Encounter | MED CTR XRAY [address] | | | | | | [place] | | | | | | [place] [address] | | | | | | [phone] | | | +--------+ + + + [...] 2019 | Visit | | [address] | | | | | | [place], | | | | | | [place] [address] | | | | | | [phone] | | | | | | | | +--------+---------+ + + + documented as of this encounter Visit Diagnoses Not on filedocumented in this encounter"
--- OUTSIDE RECORDS SUMMARY | ~2020-01-10 | XMS | Encounter Summary ---
Demographics + + + | Address | [address] | | | [place] [address] | + + + | Home Phone [...] [place] | | | | | [address] | | + + + + + | Ronny Rene | ECON | Unknown | | + + + + + | Char Woodard | ECON | Unknown | | + + + + + Care Team Providers + +------+ + | Care Boiler Engineer Name | Role | Phone | [...] | | | 2019 | Event | [facility] | [address] | | | | | and Healing Surgery | [place], | | | | | Center Admitting | [place] [address] | | | | | Desk Located on the | [phone] | | | | | 4th floor [address] | | | | | | [address] [place], | [place] | | | | | [place] [address] | [address] | | | | | | [place], | | | | | | [place] [address] | | | | | | [phone] | | | | | | | | +--------+ + + + + Anesthesia Record + + + + + | Procedure Name | Responsible | Anesthesia Start | Anesthesia Stop Time | | | Anesthesiologist | Time | | + + + + + | RIGHT OPEN REDUCTION | Randal Hernandez MD | 01/30/19 0966 | 01/30/19 1603 | | WITH INTERNAL [...] nerve | 0.1 mL | | block ([facility], Single, I-Flow pump) | | + [...] | | Oral; Cuffed; 01/30/19; 1550 | GMAT INSTRUCTOR | GMAT INSTRUCTOR | +--------+ + + + | Periph | 01/30/19; 1320; dandre tyler laboratory apparatus glass grinder; | 01/30/19 1320 by | 01/31/19 0000 by | | eral | Left; Wrist; 18 g; No; Other | Kike Coffman, | Suzy Navarro RN | | IV | (comment) (general anesthesia); | GMAT INSTRUCTOR | | | | No; Positive; 01/31/19 [...]
--- OUTSIDE RECORDS SUMMARY | ~2020-01-10 | XMS | Encounter Summary ---
Demographics + + + | Address | [address] | | | [place] [address] | + + + | Home Phone [...] [place] | | | | | [address] | | + + + + + | Ronny Rene | ECON | Unknown | | + + + + + | Char Woodard | ECON | Unknown | | + + + + + Care Team Providers + +------+ + | Care Broadcast Program Director Name | Role | Phone | [...] | | [address] | [place], [place] | | | | | [place], [place] | [address] | | | | | [address] | [phone] | | | | | | | [...]
--- OUTSIDE RECORDS SUMMARY | ~2020-01-10 | XMS | Encounter Summary ---
Demographics + + + | Address | [address] | | | [place] [address] | + + + | Home Phone [...] [place] | | | | | [address] | | + + + + + | Ronny Rene | ECON | Unknown | | + + + + + | Char Woodard | ECON | Unknown | | + + + + + Care Team Providers + +------+ + | Care Parking Ramp Attendant Name | Role | Phone | + +------+ + | Deondre Landis MD | PCP | | + +------+ + Encounter Details +--------+ + + + + | Date | Type | Department | Care Team | Description | +--------+ + + + + | 04/12/ | Abstract | [facility] | Vijay Akbar MD | | | 2017 | | [place] [address] [id number] | [id number] | | | | | [facility] | [address] [place], | | | | | [facility] and | [place] [address] | | | | | [place] [address] | [phone] | | | | | [place], [place] | | | | | | [address] | | | | | | [phone] | | | +--------+ + + + [...]
--- OUTSIDE RECORDS SUMMARY | ~2020-01-10 | XMS | Encounter Summary ---
Demographics + + + | Address | [address] | | | [place] [address] | + + + | Home Phone | | + + + | Preferred Language | Unknown | + + + | Marital Status | | + + + | Faith Affiliation | Unknown | + + + | Race | Unknown | + + + | Ethnic Group | Unknown | + + + Author + + + | Author | [facility] | | | and Tobyana | + + + | Organization | [facility] | | | and Tobyana | + + + | Address | Unknown | + + + | Phone | Unavailable | + + + Support + + + + + | Name | Relationship | Address | Phone | + + + + + | Selena Jimenez | ECON | [address] | | | | | [place] [address] | | + + + + + Care Team Providers + +------+ + | Care Band Maker Name | Role | Phone | + +------+ + PCP | Unavailable | + +------+ + Encounter Details +--------+ + + + + | Date | Type | Department | Care Team | Description | +--------+ + + + + | 03/24/ | Hospital | [facility] | | | | 1992 | Encounter | MED CTR XRAY [address] | | | | | | [place] | | | | | | [place] [address] | | | | | | [phone] | | | +--------+ + + + [...] 2019 | Visit | | [address] | | | | | | [place], | | | | | | [place] [address] | | | | | | [phone] | | | | | | | | +--------+---------+ + + + documented as of this encounter Visit Diagnoses Not on filedocumented in this encounter"
--- OUTSIDE RECORDS SUMMARY | ~2020-01-10 | XMS | Encounter Summary ---
Demographics + + + | Address | [address] | | | [place] [address] | + + + | Home Phone [...] + + + | Author | [facility] | + + + | Organization | [facility] | + + + | Address | Unknown | + + + | Phone | Unavailable | + + + Support + + + + + | Name | Relationship | Address | Phone | + + + + + | Selena Jimenez | ECON | [address] | | | | | [place] | | | | | [address] | | + + + + + | Ronny Rene | ECON | Unknown | | + + + + + | Char Woodard | ECON | Unknown | | + + + + + Care Team Providers + +------+ + | Care Space And Missile Defense Operations Name | Role | Phone | + [...] | | 2018 | | Center at [facility] [address] | [address] | | | | | [facility] | [facility] | | | | | [facility] and | [place] [address] | | | | | [place] [address] | [phone] | | | | | [place], [place] | | | | | | [address] | | | | | | [phone] | | | +--------+--------+ + + + [...]
--- OUTSIDE RECORDS SUMMARY | ~2020-01-10 | XMS | Encounter Summary ---
Demographics + + + | Address | [address] | | | [place] [address] | + + + | Home Phone | | + + + | Preferred Language | Unknown | + + + | Marital Status | | + + + | Holiness Affiliation | Unknown | + + + | Race | Unknown | + + + | Ethnic Group | Unknown | + + + Author + + + | Author | [facility] | | | and Tobyana | + + + | Organization | [facility] | | | and Tobyana | + + + | Address | Unknown | + + + | Phone | Unavailable | + + + Support + + + + + | Name | Relationship | Address | Phone | + + + + + | Selena Jimenez | ECON | [address] | | | | | [place] [address] | | + + + + + Care Team Providers + +------+ + | Care Rolling Chair Pusher Name | Role | Phone | + [...] | 05/20/ | Refill | [facility] | Bernice Antonio, | Medication Refill | | 2012 | | CARDIOLOGY [address] | MD [address] [place] | | | | | [place], | [place], | | | | | [place] [address] | [place] [address] | | | | | [phone] | [phone] | | | | | | | [...] | | | | | | [place] [address] | | | | | | [phone] | | | | | | | | +--------+---------+ + + + documented as of this encounter Visit Diagnoses Not on filedocumented in this encounter"
--- OUTSIDE RECORDS SUMMARY | ~2020-01-10 | XMS | Encounter Summary ---
Demographics + + + | Address | [address] | | | [place] [address] | + + + | Home Phone [...] [place] | | | | | [address] | | + + + + + | Ronny Rene | ECON | Unknown | | + + + + + | Char Woodard | ECON | Unknown | | + + + + + Care Team Providers + +------+ + | Care Unit Manager Convenience Stores Name | Role | Phone | + [...] 2017 | | Center at [facility] [address] | [address] | | | | | [facility] | [facility] | | | | | [facility] and | [place] [address] | | | | | [place] [address] | [phone] | | | | | [place], [place] | | | | | | [address] | | | | | | [phone] | | | +--------+--------+ + + + [...]
--- OUTSIDE RECORDS SUMMARY | ~2020-01-10 | XMS | Encounter Summary ---
Demographics + + + | Address | [address] | | | [place] [address] | + + + | Home Phone | | + + + | Preferred Language | Unknown | + + + | Marital Status | | + + + | Jainism Affiliation | Unknown | + + + | Race | Unknown | + + + | Ethnic Group | Unknown | + + + Author + + + | Author | [facility] | | | and Tobyana | + + + | Organization | [facility] | | | and [...] | | | | | [place] [address] | | + + + + + Care Team Providers + +------+ + | Care Print Color Operator Name | Role | Phone | + +------+ + | Mingo Burgos DO | PCP | | + +------+ + Encounter Details +--------+ + + + + | Date | Type | Department | Care Team | Description | +--------+ + + + + | 06/04/ | Hospital | [facility] | Roderick Gill | Chronic low back | | 2013 | Encounter | MED CTR XRAY [address] | [address], [address] | pain; DDD | | | | [place] | [place], [place] | (degenerative disc | | | | [place] [address] | [address] | disease), lumbar; | | | | [phone] | | S/P lumbar spinal | | [...] | | | | | | [place] [address] | | | | | | [phone] | | | | | | | [...] + | MISCELLANEOUS LAB | | | [phone] | + +---------+ + + | MISCELANIOUS LAB | | | [phone] | + +---------+ + + XR Shoulder [...] | | | |Dictated and Signed by: Shvi Farooq MD | | Electronically signed: 06/04/2014 12:51 PM | + + + +---------+ + + | Performing | Address | City/State/Zipcode | Phone Number | | Organization | | | | + +---------+ + + | MISCELLANEOUS LAB | | | [phone] | + +---------+ + + | MISCELANIOUS LAB | | | [phone] | + +---------+ + + XR Lumbar [...] + | MISCELLANEOUS LAB | | | [phone] | + +---------+ + + | MISCELANIOUS LAB | | | [phone] | + +---------+ + + documented in [...]
--- OUTSIDE RECORDS SUMMARY | ~2020-01-10 | XMS | Encounter Summary ---
Demographics + + + | Address | [address] | | | [place] [address] | + + + | Home Phone | | + + + | Preferred Language | Unknown | + + + | Marital Status | | + + + | Uatsdin Affiliation | Unknown | + + + | Race | Unknown | + + + | Ethnic Group | Unknown | + + + Author + + + | Author | [facility] | | | and Tobyana | + + + | Organization | [facility] | | | and [...] | | | | | [place] [address] | | + + + + + Care Team Providers + +------+ + | Care Director Child Development Center Name | Role | Phone | + [...] | CARDIOLOGY [address] | MD [address] [place] | | | | | [place], | [place], | | | | | [place] [address] | [place] [address] | | | | | [phone] | [phone] | | | | | | | [...] | 2019 | Visit | | MD [address] | | | | | | [place], | | | | | | [place] [address] | | | | | | [phone] | | | | | | | | +--------+---------+ + + + documented as of this encounter Visit Diagnoses Not on filedocumented in this encounter"
--- OUTSIDE RECORDS SUMMARY | ~2020-01-10 | XMS | Encounter Summary ---
Demographics + + + | Address | [address] | | | [place] [address] | + + + | Home Phone [...] + + + | Author | [facility] | + + + | Organization | [facility] | + + + | Address | Unknown | + + + | Phone | Unavailable | + + + Support + + + + + | Name | Relationship | Address | Phone | + + + + + | Selena Jimenez | ECON | [address] | | | | | [place] | | | | | [address] | | + + + + + | Ronny Rene | ECON | Unknown | | + + + + + | Char Woodard | ECON | Unknown | | + + + + + Care Team Providers + +------+ + | Care Hot Mill Shearer Name | Role | Phone | + [...] | [address] | MD Doris [address] [facility] | | | | | [facility] | [facility] | | | | | Dina Gupta | [place], [place] | | | | | (MNP/[facility]) | [address] | | | | | [place], [place] | [phone] | | | | | [address] | | | | | | [phone] | | | +--------+ + + + [...] Tuesday 8:00- 4:30 Endoscopy Toll Free ext [phone] or After business hours, or on weekends and holiday Hospital OperatorToll Free [phone] ext. [phone] and have the GI doctor horizontal boring mill set up operator paged. The provider who performed your [...] | + +------+--------+ + + | NON RETAIL PHARMACY TECHNICIAN CYTOLOGY | Lab | Routin | | [...] + +--------+ + + + | NON RETAIL PHARMACY TECHNICIAN CYTOLOGY | Routin | 01/31/2015 | | [...] | | | + + + NON RETAIL PHARMACY TECHNICIAN CYTOLOGY (01/31/2015) + + + + + + | Component | Value | Ref Range | Performed | Pathologist | | | | | At | Signature | + + + + + + | NON-RETAIL PHARMACY TECHNICIAN | SOURCE OF SPECIMEN:A | | [facility] [...] / | | | | | | Finished Garment Inspector | | | | | | (ASCP)Ki [...] be | | | | | | wholesale representative of the | | | | [...] | + + + + + | [facility] | [address] | [place] [address] | | | PATHOLOGY | [address] [...]
--- OUTSIDE RECORDS SUMMARY | ~2020-01-10 | XMS | Encounter Summary ---
Demographics + + + | Address | [address] | | | [place] [address] | + + + | Home Phone [...] [place] | | | | | [address] | | + + + + + | Ronny Rene | ECON | Unknown | | + + + + + | Char Woodard | ECON | Unknown | | + + + + + Care Team Providers + +------+ + | Care Collar Sewer Name | Role | Phone | [...] | | | | | | | [address] | | | | | | | Phone: | | | | | | | [phone] | | | | | | | Fax: | | | | | | | [phone] | +--------+--------+ + + + + Encounter Details +--------+---------+ + + + | Date | Type | Department | Care Team | Description | +--------+---------+ + + + | 05/05/ | Office | Digestive Health | Vijay Akbar MD | History of | | 2018 | Visit | Center at [facility] [address] | [address] | esophageal cancer - | | | | [address] [facility] | Latesha Soliz [place], | pTisN0 (Primary Dx) | | | | for Health and | [place] [address] | | | | | [place] [address] | [phone] | | | | | [place], [place] | | | | | | [address] | | | | | | [phone] | | | +--------+---------+ + + + [...] Pressure | 134/85 | 05/05/2018 8:55 AM | | | | | PDT | | + + + + + | Pulse | 77 | 05/05/2018 8:55 AM | | | | | PDT | | + + + + + | Temperature | 36.6 C (97.8 F) | 05/05/2018 8:55 AM | | | | | PDT | | + + + + + | Respiratory Rate | 15 | 05/05/2018 8:55 AM | | | | | PDT | | + + + + + | Oxygen Saturation | - | - | | + + + + + | Inhaled Oxygen | - | - | | | Concentration | | | | + + + + + | Weight | 72.4 kg (159 lb 9.6 | 05/05/2018 8:55 AM | | | | oz) | PDT | | + + + + + | Height | 175.3 cm (5' 9") | 05/05/2018 8:55 AM | | | | | PDT | | + + + + + | Body Mass Index | 23.57 | 05/05/2018 8:55 AM | | | | | PDT | | + + + + + documented in this encounter Progress Notes Cristian Braxton - 05/05/2018 9:00 AM PDT [facility] Follow up Note Author: Cristian Braxton Attending Physician: Vijay Akbar MD 05/05/2018, 8:58 AM ID: Junaid Jimenez is a 78 y.o. 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 Of note in 08/2017 he was hospitalized and required ICU care for septic shock sec ondary to cholecystitis for which he received cholecystectomy. A liver abscess was incidenta lly found on CT at that time which had resolved on follow up imaging in 11/2017 PROCEDURES: 03/27/2015 Laparoscopic transhiatal esophagectomy 08/27/2017 Laparoscopic cholecystectomy INTERVAL HISTORY: No complaints. Eating well. Ate ham steak, hashbrowns, and eggs this morning with no issues . PROBLEM LIST: Past Medical History: Diagnosis Date Back pain, chronic Cheema's esophagus Dysphagia Esophageal adenocarcinoma (HCC) GERD (gastroesophageal reflux disease) Hearing loss bialteral hearing aids HTN (hypertension) Knee pain, chronic [place] (myocardial infarction) (HCC) s/p CABG x 2 Unintentional weight loss MEDICATIONS: aspirin chewable (CHILDRENS ASPIRIN) 81 mg oral tablet,chewable, Chew and swallow 81 mg onc e daily. atorvastatin 80 mg oral tablet, 1 tablet by feeding tube route once daily. cholecalciferol (Vitamin D3) (VITAMIN D3) 1,000 unit oral tablet, Take 1,000 Units by mouth once daily. escitalopram oxalate 10 mg oral tablet, Take 10 mg by mouth once daily. levoFLOXacin 750 mg oral tablet, Take 1 tablet by mouth once daily. Indications: abdominal infection magnesium oxide 400 mg oral tablet, Take 400 mg by mouth once daily. metoclopramide HCl 10 mg oral tablet, Take 10 mg by mouth three times daily before meals. metoprolol tartrate 25 mg oral tablet, Take 25 mg by mouth once daily at bedtime. multivitamin with folic acid 400 mcg oral tablet, Take 400 mcg by mouth once daily. omeprazole 40 mg oral capsule,delayed release(DR/EC), Take 1 capsule by mouth once daily. ondansetron ODT (ZOFRAN ODT) 4 mg oral tablet,disintegrating, Take 1 tablet by mouth every six hours as needed for nausea/vomiting. oxyCODONE, immediate release, 5 mg/5 mL oral solution, 5 mL by feeding tube route every six hours as needed for moderate pain. polyethylene glycol 17 gram/dose oral powder, Mix 17 g in liquid and drink once daily as ne eded. pravastatin 40 mg oral tablet, Take 40 mg by mouth once daily. torsemide 5 mg oral tablet, Take 5 mg by mouth once daily. REVIEW OF SYSTEMS: A full 10 point review of systems was completed and was negative except as mentioned in the above HPI PHYSICAL EXAM: BP 134/85 | Pulse 77 | Temp (Src) 36.6 C (97.8 F) (Oral) | RR 15 | Ht 1.753 m (5' 9") | Wt 72.4 kg (159 lb 9.6 oz) | BMI 23.57 kg/(m^2) General: Alert and oriented, NAD. HEENT: Sclerae anicteric, EOMI Respiratory: Unlabored CV: RRR Abdomen: Extremities: Warm and well perfused, no peripheral edema PERTINENT LABS/STUDIES: Lab Results Component Value Date WBC 15.82 04/07/2015 HB 9.4 04/07/2015 HCT 28.5 04/07/2015 PLT 436 04/07/2015 MCV 92.8 04/07/2015 RDW 45.8 04/07/2015 Lab Results Component Value Date NA 139 04/06/2015 K 4.1 04/06/2015 CL 106 04/06/2015 BICARB 27 04/06/2015 BUN 14 04/06/2015 CR 1.3 09/16/2017 GLU 119 04/06/2015 CA 8.9 04/06/2015 No results for input(s): AST, ALT, TBILI, AP, ALB, TP in the last 4320 hours. Lab Results Component Value Date INRPT 0.87 (L) 03/26/2015 ASSESSMENT AND PLAN: Junaid Jimenez is a 78 y.o. man with a history CAD s/p CABG, HTN, and high grade esophageal dysplasia s/p lap transhiatal esophagectomy in 03/2015 doing very well from our standpoint. T hankfully, he has made a full recovery from his cholecystitis this last winter. We have no n eed for scheduled follow up with [facility], but he can schedule an appointment with us at any time . Cristian Braxton, MS4 [facility] [employer] [employer] STAFF: A student assisted with documenting this service. I saw the patient and reviewed and verif ied all information documented by the medical student and made modifications to such informa tion, when appropriate. documented in this enc nter Plan of Treatment Not on filedocumented as of this encounter Visit Diagnoses + + | Diagnosis | + + | History of esophageal cancer - pTisN0 - Primary Personal history of malignant | | neoplasm of esophagus | + + documented in this encounter
--- OUTSIDE RECORDS SUMMARY | ~2020-01-10 | XMS | Encounter Summary ---
Demographics + + + | Address | [address] | | | [place] [address] | + + + | Home Phone | | + + + | Preferred Language | Unknown | + + + | Marital Status | | + + + | Catholic Affiliation | Unknown | + + + | Race | Unknown | + + + | Ethnic Group | Unknown | + + + Author + + + | Author | [facility] | | | and Tobyana | + + + | Organization | [facility] | | | and [place] | + + + | Address | Unknown | + + + | Phone | Unavailable | + + + Support + + + + + | Name | Relationship | Address | Phone | + + + + + | Selena Jimenez | ECON | [address] | | | | | [place] [address] | | + + + + + Care Team Providers + +------+ + | Care Government Relations Director Name | Role | Phone | + +------+ + | Mingo Burgos DO | PCP | | + +------+ + Encounter Details +--------+ + + + + | Date | Type | Department | Care Team | Description | +--------+ + + + + | 06/28/ | Hospital | [facility] | Roderick Gill | Lumbar | | 2013 | Encounter | MED CTR XRAY [address] | [address] | radiculopathy/neurog | | | | [place] | [address] [place], [place] | enic claudication; | | | | [place] [address] | [address] | S/P lumbar spinal | | | | [phone] | | fusion; DDD | | | [...] | | | | | | [place] [address] | | | | | | [phone] | | | | | | | [...] + | MISCELLANEOUS LAB | | | [phone] | + +---------+ + + | MISCELANIOUS LAB | | | [phone] | + +---------+ + + documented in [...]
--- OUTSIDE RECORDS SUMMARY | ~2020-01-10 | XMS | Encounter Summary ---
Demographics + + + | Address | [address] | | | [place] [address] | + + + | Home Phone | | + + + | Preferred Language | Unknown | + + + | Marital Status | | + + + | Mormonism Affiliation | Unknown | + + + | Race | Unknown | + + + | Ethnic Group | Unknown | + + + Author + + + | Author | [facility] | | | and Tobyana | + + + | Organization | [facility] [...] | | | | | [place] [address] | | + + + + + Care Team Providers + +------+ + | Care Accounting Representative Name | Role | Phone | [...] | CARDIOLOGY [address] | MD [address] | | | | | [place], | [place], | | | | | [place] [address] | [place] [id number] | | | | | [phone] | [phone] | | | | | | | [...] | | | | | | [place] [id number] | | | | | | [phone] | | | | | | | | +--------+---------+ + + + documented as of this encounter Visit Diagnoses Not on filedocumented in this encounter"
--- OUTSIDE RECORDS SUMMARY | ~2020-01-10 | XMS | Encounter Summary ---
Demographics + + + | Address | [address] | | | [place] [address] | + + + | Home Phone | | + + + | Preferred Language | Unknown | + + + | Marital Status | | + + + | Worship Affiliation | Unknown | + + + | Race | Unknown | + + + | Ethnic Group | Unknown | + + + Author + + + | Author | [facility] | | | and Tobyana | + + + | Organization | [facility] [...] | | | | | [place] [address] | | + + + + + Care Team Providers + +------+ + | Care Radiology Ct Technologist Name | Role | Phone | [...] + | 11/01/ | Telephone | [facility] | Leonorsiaisabella Sialeonor, | Lab Order (Pt due | | 2019 | | CARDIOLOGY [address] | [address] | for labs prior to | | | | [place], | [place], | appt. ) | | | | [place] [address] | [place] [address] | | | | | [phone] | [phone] | | | | | | | [...] | | | | | | [place], | | | | | | [place] [address] | | | | | | [phone] | | | | | | | [...] whether | | | | | | little river or | | | | | | [...] whether | | | | | | little river or | | | | | | [...] whether | | | | | | little river or | | | | | | [...] or lesion | | type, unspecified whether little river or transplanted heart | + + | Mixed hyperlipidemia | + + documented in this encounter"
--- OUTSIDE RECORDS SUMMARY | ~2020-01-10 | XMS | Encounter Summary ---
Demographics + + + | Address | [address] | | | [place] [address] | + + + | Home Phone [...] [place] | | | | | [address] | | + + + + + | Ronny Rene | ECON | Unknown | + | + + + + + | Char Woodard | ECON | Unknown | | + + + + + Care Team Providers + +------+ + | Care Steel Die Press Set Up Operator Name | Role | Phone | + +------+ + | David Ferrera MD | PCP | | + +------+ + Encounter Details +--------+ + + + + | Date | Type | Department | Care Team | Description | +--------+ + + + + | 01/30/ | Procedure | [facility] | | | | 2019 | Pass | [facility] | | | | | | and Healing Surgery | | | | | | Center Admitting | | | | | | Desk Located on the | | | | | | 4th floor [address] | | | | | | [address] [place], | | | | | | [place] [address] | | | +--------+ + + + [...]
--- OUTSIDE RECORDS SUMMARY | ~2020-01-10 | XMS | Encounter Summary ---
Demographics + + + | Address | [address] | | | [place] [address] | + + + | Home Phone | | + + + | Preferred Language | Unknown | + + + | Marital Status | | + + + | Anabaptist Affiliation | NON | + + + [...] [place] | | | | | [address] | | + + + + + | Ronny Rene | ECON | Unknown | | + + + + + | Char Woodard | ECON | Unknown | | + + + + + Care Team Providers + +------+ + | Care Car Tracer Name | Role | Phone | + +------+ + | Deondre Landis MD | PCP | | + +------+ + Reason for Visit + + + | Reason | Comments | + + + | Refill Request | Omeprazole 40mg | + + + Encounter Details +--------+--------+ + + + | Date | Type | Department | Care Team | Description | +--------+--------+ + + + | 09/07/ | Refill | Digestive Health | Vijay Akbar MD | Refill Request | | 2016 | | Center at [facility] [address] | [address] | (Omeprazole 40mg) | | | | [facility] | [facility] [place], | | | | | and | [place] [address] | | | | | [address] | [phone] | | | | | [place], [place] | | | | | | [address] | | | | | | [phone] | | | +--------+--------+ + + + [...]
--- OUTSIDE RECORDS SUMMARY | ~2020-01-10 | XMS | Encounter Summary ---
Demographics + + + | Address | [address] | | | [place] [address] | + + + | Home Phone [...] [place] | | | | | [address] | | + + + + + | Ronny Rene | ECON | Unknown | | + + + + + | Char Woodard | ECON | Unknown | | + + + + + Care Team Providers + +------+ + | Care Pin Ticket Machine Operator Name | Role | Phone [...]
--- OUTSIDE RECORDS SUMMARY | ~2020-01-10 | XMS | Encounter Summary ---
Demographics + + + | Address | [address] | | | [place] [address] | + + + | Home Phone [...] [place] | | | | | [address] | | + + + + + | Ronny Rene | ECON | Unknown | | + + + + + | Char Woodard | ECON | Unknown | | + + + + + Care Team Providers + +------+ + | Care Gunsmith Apprentice Name | Role | Phone | + [...] | | | | | | [place] [address] | | | +--------+ + + + [...]
--- OUTSIDE RECORDS SUMMARY | ~2020-01-10 | XMS | Encounter Summary ---
Demographics + + + | Address | [address] | | | [place] [address] | + + + | Home Phone [...] [place] | | | | | [address] | | + + + + + | Ronny Rene | ECON | Unknown | | + + + + + | Char Woodard | ECON | Unknown | | + + + + + Care Team Providers + +------+ + | Care Truck Striker Name | Role | Phone | + [...] Concerns | | 2014 | | Center [place] [address] [address] | [address] | | | | | [facility] | [facility] | | | | | [facility] and | [place] [address] | | | | | [place] [address] | [phone] | | | | | [place], [place] | | | | | | [address] | | | | | | [phone] | | | +--------+ + + + [...]
--- OUTSIDE RECORDS SUMMARY | ~2020-01-10 | XMS | Encounter Summary ---
Demographics + + + | Address | [address] | | | [place] [address] | + + + | Home Phone [...] + + | Author | [facility] | + + + | Organization | [facility] | + + + | Address | Unknown | + + + | Phone | Unavailable | + + + Support + + + + + | Name | Relationship | Address | Phone | + + + + + | Selena Jimenez | ECON | [address] | | | | | [place] | | | | | [address] | | + + + + + | Ronny Rene | ECON | Unknown | | + + + + + | Char Woodard | ECON | Unknown | | + + + + + Care Team Providers + +------+ + | Care Vat Tender Name | Role | Phone | + +------+ + | Deondre Landis MD | PCP | | + +------+ + Encounter Details +--------+ + + + + | Date | Type | Department | Care Team | Description | +--------+ + + + + | 01/13/ | Abstract | Digestive Health | Rubin Lorenzo | | | 2014 | | [place] [address] | MD Doris [address] [facility] | | | | | [facility] | [facility] | | | | | [facility] and | [place], [place] | | | | | [facility] 2 | [address] | | | | | [place], [place] | [phone] | | | | | [address] | | | | | | [phone] | | | +--------+ + + + [...]
--- OUTSIDE RECORDS SUMMARY | ~2020-01-10 | XMS | Encounter Summary ---
Demographics + + + | Address | [address] | | | [place] [address] | + + + | Home Phone | | + + + | Preferred Language | Unknown | + + + | Marital Status | | + + + | Worship Affiliation | NON | + + + [...] [place] | | | | | [address] | | + + + + + | Ronny Rene | ECON | Unknown | + | + + + + + | Char Woodard | ECON | Unknown | | + + + + + Care Team Providers + +------+ + | Care Image Scientist Name | Role | Phone | + +------+ + | David Ferrera MD | PCP | | + +------+ + Encounter Details +--------+ + + + + | Date | Type | Department | Care Team | Description | +--------+ + + + + | 01/30/ | Pharmacy | Pharmacy @ [facility] | | | | 2019 | Visit | [address] | | | | | | [address] Mailcode: | | | | | | [facility] | | | | | | and Healing, | | | | | | Building 2 | | | | | | [place], [place] | | | | | | [address] | | | +--------+ + + + [...]
--- OUTSIDE RECORDS SUMMARY | ~2020-01-10 | XMS | Encounter Summary ---
Demographics + + + | Address | [address] | | | [place] [address] | + + + | Home Phone [...] [place] | | | | | [address] | | + + + + + | Ronny Rene | ECON | Unknown | | + + + + + | Char Woodard | ECON | Unknown | | + + + + + Care Team Providers + +------+ + | Care Senior Court Office Assistant Name | Role | Phone | [...] | | | | | | | [facility] | | | | | | | Health and | | | | | | | Healing, | | | | | | | Building [address] | | | | | | | [place], [place] | | | | | | | [address] | | | | | | | Phone: | | | | | | | [phone] | | | | | | | Fax: | | | | | | | [phone] | +--------+--------+ + + + + Encounter Details +--------+---------+ + + + | Date | Type | Department | Care Team | Description | +--------+---------+ + + + | 04/15/ | Office | Digestive Health | Vijay Akbar MD | Cough (Primary Dx); | | 2016 | Visit | Center at [facility] [address] | [address] | Encounter for | | | | [address] [facility] | Latesha Soliz [place], | follow-up | | | | for Health and | [place] [address] | surveillance of | | | | [place] [address] | [phone] | esophageal cancer | | | | [place], [place] | | | | | | [address] | | | | | | [phone] | | | +--------+---------+ + + + [...] might be different fr om the original. [facility] Department of Surgery [facility] Note [...] hearing aids HTN (hypertension) Knee pain, chronic [place] (myocardial infarction) (HCC) s/p CABG x 2 Unintentional weight loss Past Surgical History Procedure Laterality Date Cabg x 2 2007 Colonoscopy Shoulder surgery Right Back surgery x 4 Inguinal hernia repair Left Appendectomy Esophagectomy, laparscopic 03/28/2015 transhiatal esophagectomy, Dr. Akbar at [facility] Left neck incision and drainage Left 04/02/2015 2/2 anastomotic leak Laparoscopic placement of jejunostomy feeding tube 03/28/2015 Dr. Akbar, [facility] Egd (esophagogastroduodenoscopy) 03/28/2015 Dr. Akbar, [facility] Social History Substance Use Topics Smoking status: [...] plan. Suzy Nguyen MD Surgery, R5 Pager: [phone] STAFF: I personally interviewed the patient, performed [...] Note | + + | Service Account, [employer] Cremation Res In Interface - 04/15/2017 1:51 PM [...]
--- OUTSIDE RECORDS SUMMARY | ~2020-01-10 | XMS | Encounter Summary ---
Demographics + + + | Address | [address] | | | [place] [address] | + + + | Home Phone [...] | Author | [facility] | | | and [place] | + + + | Organization | [facility] | | | and [place] | + + + | Address | Unknown | + + + | Phone | Unavailable | + + + Support + + + + + | Name | Relationship | Address | Phone | + + + + + | Selena Jimenez | ECON | [id number] | | | | | [place] [address] | | + + + + + Care Team Providers + +------+ + | Care Storage Garage Attendant Name | Role | Phone | [...] | 12/29/ | Telephone | [facility] [place] | Bernice Antonio, | Blood Pressure (Log | | 2017 | | CARDIOLOGY [address] | [address] [place] | from 12/01/16 till | | | | [place], | [place], | 12/14/16) | | | | [place] [address] | [place] [address] | | | | | [phone] | [phone] | | | | | | | [...] | | | | | | [place] [address] | | | | | | [phone] | | | | | | | | +--------+---------+ + + + documented as of this encounter Visit Diagnoses Not on filedocumented in this encounter"
--- OUTSIDE RECORDS SUMMARY | ~2020-01-10 | XMS | Encounter Summary ---
Demographics + + + | Address | [address] | | | [place] [address] | + + + | Home Phone [...] Author | [facility] | | | and [place]yana | + + + | Organization | [facility] | | | and [...] | | | | | [place] [address] | | + + + + + Care Team Providers + +------+ + | Care Heading Maker Name | Role | Phone | [...] + + | 11/30/ | Telephone | [facility] | Bernice Antonio, | Blood Pressure Check | | 2018 | | CARDIOLOGY [address] | MD [address] [facility] | (Screening) (Blood | | | | [place], | [place], | pressure log from | | | | [place] [address] | [place] [address] | 11/07-11/21) | | | | [phone] | [phone] | | | | | | | [...] | | | | | | [place] [address] | | | | | | [phone] | | | | | | | [...] whether | | | | | | hoopa or | | | | | | transplanted heart | | + +------+--------+ + + documented as of this encounter Visit Diagnoses + + | Diagnosis | + + | Mixed hyperlipidemia - Primary | + + | Essential hypertension Unspecified essential hypertension | + + | Coronary artery disease, angina presence unspecified, unspecified vessel or lesion | | type, unspecified whether hoopa or transplanted heart | + + documented in this encounter"
--- OUTSIDE RECORDS SUMMARY | ~2020-01-10 | XMS | Encounter Summary ---
Demographics + + + | Address | [address] | | | [place] [address] | + + + | Home Phone | | + + + | Preferred Language | Unknown | + + + | Marital Status | | + + + | Spiritism Affiliation | Unknown | + + + | Race | Unknown | + + + | Ethnic Group | Unknown | + + + Author + + + | Author | [facility] | | | and Tobyana | + + + | Organization | [facility] | | [...] | | | | | [place] [address] | | + + + + + Care Team Providers + +------+ + | Care Teacher Of The Handicapped Name | Role | Phone | + [...] | 03/26/ | Refill | [facility] [place] | [place]ice Antonio, | Medication Refill | | 2012 | | CARDIOLOGY [address] | MD [address] [place] | | | | | [place], | [place], | | | | | [place] [address] | [place] [address] | | | | | [phone] | [phone] | | | | | | | [...] | | | | | | [place] [address] | | | | | | [phone] | | | | | | | | +--------+---------+ + + + documented as of this encounter Visit Diagnoses Not on filedocumented in this encounter"
--- OUTSIDE RECORDS SUMMARY | ~2020-01-10 | XMS | Encounter Summary ---
Demographics + + + | Address | [address] | | | [place] [address] | + + + | Home Phone [...] [place] | | | | | [address] | | + + + + + | Ronny Rene | ECON | Unknown | | + + + + + | Char Woodard | ECON | Unknown | | + + + + + Care Team Providers + +------+ + | Care Recruiting Operations Consultant Name | Role | Phone | [...] [address] | | | | | [place], [place] | Latesha Soliz [place], | | | | | [address] | [place] [address] | | | | | [phone] | [phone] | | | | | | | [...]
--- OUTSIDE RECORDS SUMMARY | ~2020-01-10 | XMS | Encounter Summary ---
Demographics + + + | Address | [address] | | | [place] [address] | + + + | Home Phone [...] [place] | | | | | [address] | | + + + + + | Ronny Rene | ECON | Unknown | | + + + + + | Char Woodard | ECON | Unknown | | + + + + + Care Team Providers + +------+ + | Care Manager Cosmetics Name | Role | Phone | + +------+ + | Deondre Landis MD | PCP | | + +------+ + Encounter Details +--------+ + + + + | Date | Type | Department | Care Team | Description | +--------+ + + + + | 11/22/ | Career Technical Education Instructor | Digestive Health | Rubin Lorenzo | Cheema's esophagus | | 2015 | | Center at [facility] [address] | MD Doris [address] | (Primary Dx) | | | | [address] [facility] | [facility] | | | | | [facility] and | [place], [place] | | | | | [place] [address] | [address] | | | | | [place], [place] | [phone] | | | | | [address] | | | | | | [phone] | | | +--------+ + + + [...] [place] | | | | | | [id number] Accession | | | | | | Number: [id number] | | | | | | Collection [...] + + + | [facility] | [address] | [place] [address] | | | PATHOLOGY | [address] | | | + + + + + documented in this encounter Visit Diagnoses + + | Diagnosis | + + | Cheema's esophagus - Primary | + + documented in this encounter"
--- OUTSIDE RECORDS SUMMARY | ~2020-01-10 | XMS | Encounter Summary ---
Demographics + + + | Address | [address] | | | [place] [address] | + + + | Home Phone [...] [place] | | | | | [address] | | + + + + + | Ronny Rene | ECON | Unknown | | + + + + + | Char Woodard | ECON | Unknown | | + + + + + Care Team Providers + +------+ + | Care Shopfitter Name | Role | Phone | + [...] Diaz | pre-operative | | | | [facility] 4th Floor [address] | [address] | examination (Primary | | | | [address] | [address] [place], [place] | Dx); Esophageal | | | | Mailcode: CH4S | [address] | cancer ([facility]); | | | | [facility] | | Coronary artery | | | | and Healing, | | disease due to lipid | | | | Building 1,4th Floor | | rich plaque; | | | | [facility] [place] | | Essential | | | | [address] | | hypertension; | | | | [phone] | | Gastroesophageal | | | | [...] | LAPAROSCOPIC | [address], | 03/27/15 0760 | 03/27/15 1530 | | TRANSHIATAL | [...] or walk. Surgery check-in location: Admitting - [facility], ninth floor lobby Surgery Check in Time: 5:30 am 03/27/15 at [facility], 9th floor at the round desk next [...] it is after office hours, call the [facility] profile mill operator tape control at [phone] and ask them to page him or h er. Preparing For Your Surgery Video - 7 minutes of instructions! Access this [facility] video site : [email or web address] -->Healthcare --> Patient and Visitor Guide --> [...] pain and dyspnea. Pertinent medical history: CAD/Hx [place] - s/p CABG x 2 in 2007 [...] and syncope CAD Cad Sx: CABG past VT Last VT: > 1 year no CHF hypertension well [...] esophagus Knee pain, chronic Back pain, chronic [place] (myocardial infarction) s/p CABG x 2 Hearing [...] to this patient's care. MANUEL Russo FNP [facility] PREADMIT CLINIC [facility] PREOPERATIVE MEDICINE CLINIC AT [facility] 4TH FLOOR [address] [place] [address] I counseled the pt regarding perioperative risk (cardiac/bleeding/ DVT/ respiratory failur e/ infection, etc) and methods to mitigate risk. I advised the patient regarding NPO requir ements, hydration before surgery, showering, general body hygiene. All pre-procedure instru ctions given to the patient (after-visit summary). All of patient's questions were addresse d. The patient verbalized understanding of the instructions given. NoMarie jackson MA - 03/26/2015 3:56 PM PDT [...] | + +--------+ + + + | NC COLLECTION VENOUS | Routin | 03/26/2015 | [...] | + + + + + | [facility] [employer] | [address] | [place] [address] | | | SERVICES, SPECIAL | RENEE [...] | + + + + + | [facility] | [address] [facility] | [place] [address] | | | SERVICES, CORE | RENEE [...] | | | LABORATORY | | | [place] | | | SERVICES, | | | [...] | + + + + + | [facility] | [address] | [place] [address] | | | SERVICES, CORE | PARK [...] (L) | 0.90 - 1.20 INR | [facility] | | | | | | LABORATORY [...] LABORATORY | [address] | [place] [address] | | | SERVICES, CORE | PARK [...] | + + + + + | [facility] | [address] | [place] [address] | | | SERVICES, | [address] [...] [facility] | [address] | [place] [id number] | | | NELLY, | RENEE JESUS [...]
--- OUTSIDE RECORDS SUMMARY | ~2020-01-10 | XMS | Encounter Summary ---
Demographics + + + | Address | [address] | | | [place] [address] | + + + | Home Phone [...] [place] | | | | | [address] | | + + + + + | Ronny Rene | ECON | Unknown | + | + + + + + | Char Woodard | ECON | Unknown | | + + + + + Care Team Providers + +------+ + | Care Urology Physician Assistant Name | Role | Phone | [...] | | | | | | [place], [place] | | | | | | [address] | | | | | | [phone] | | | +--------+ + + + [...]
--- OUTSIDE RECORDS SUMMARY | ~2020-01-10 | XMS | Encounter Summary ---
Demographics + + + | Address | [address] | | | [place] [address] | + + + | Home Phone [...] [place] | | | | | [address] | | + + + + + | Ronny Rene | ECON | Unknown | | + + + + + | Char Woodard | ECON | Unknown | | + + + + + Care Team Providers + +------+ + | Care Professional Development Manager Name | Role | Phone | [...] | | 2016 | | Center at [facility] [address] | [address] | (Omeprazole 40mg) | | | | [facility] | [facility], | | | | | and | [place] [address] | | | | | [address] | [phone] | | | | | [place], [place] | | | | | | [address] | | | | | | [phone] | | | +--------+--------+ + + + [...]
--- OUTSIDE RECORDS SUMMARY | ~2020-01-10 | XMS | Encounter Summary ---
Demographics + + + | Address | [address] | | | [place] [address] | + + + | Home Phone [...] [place] | | | | | [address] | | + + + + + | Ronny Rene | ECON | Unknown | | + + + + + | Char Woodard | ECON | Unknown | | + + + + + Care Team Providers + +------+ + | Care Dividend Clerk Name | Role | Phone | [...] Concern | | 2014 | | Center [place] [address] [address] | [address] | | | | | [facility] | [facility] | | | | | [facility] and | [place] [address] | | | | | [place] [address] | [phone] | | | | | [place], [place] | | | | | | [address] | | | | | | [phone] | | | +--------+ + + + [...]
--- OUTSIDE RECORDS SUMMARY | ~2020-01-10 | XMS | Encounter Summary ---
Demographics + + + | Address | [address] | | | [place] [address] | + + + | Home Phone | | + + + | Preferred Language | Unknown | + + + | Marital Status | | + + + | Church Affiliation | Unknown | + + + | Race | Unknown | + + + | Ethnic Group | Unknown | + + + Author + + + | Author | [facility] | | | and Tobyana | + + + | Organization | [facility] [...] | | | | | [place] [address] | | + + + + + Care Team Providers + +------+ + | Care Forest Ecologist Name | Role | Phone | + [...] + | 03/11/ | Telephone | [facility] | Bernice Antonio, | Other (increased | | 2013 | | CARDIOLOGY [address] | [address] [place] | heart rate with | | | | [place], | [place], | exertion) | | | | [place] [address] | [place] [address] | | | | | [phone] | [phone] | | | | | | | [...] | | | | | | [place] [address] | | | | | | [phone] | | | | | | | | +--------+---------+ + + + documented as of this encounter Visit Diagnoses Not on filedocumented in this encounter"
--- OUTSIDE RECORDS SUMMARY | ~2020-01-10 | XMS | Encounter Summary ---
Demographics + + + | Address | [address] | | | [place] [address] | + + + | Home Phone [...] [place] | | | | | [address] | | + + + + + | Ronny Rene | ECON | Unknown | | + + + + + | Char Woodard | ECON | Unknown | | + + + + + Care Team Providers + +------+ + | Care Machine Candle Molder Name | Role | Phone | [...] [address] | | | | | [facility] | Latesha [facility], | | | | | [facility] and | [place] [address] | | | | | [place] [address], | [phone] | | | | | [facility] Floor | | | | | | [place], [place] | | | | | | [address] | | | | | | [phone] | | | +--------+ + + + [...] Note | + + | Service Account, [employer] In Interface - 04/15/2017 1:51 PM PDT [...]
--- OUTSIDE RECORDS SUMMARY | ~2020-01-10 | XMS | Encounter Summary ---
Demographics + + + | Address | [address] | | | [place] [address] | + + + | Home Phone [...] [place] | | | | | [address] | | + + + + + | Ronny Rene | ECON | Unknown | | + + + + + | Char Woodard | ECON | Unknown | | + + + + + Care Team Providers + +------+ + | Care Residential Tech Name | Role | Phone | [...] | | 2016 | | Center at [facility] [address]85 | [address] | Received | | | | [facility] | [facility] | | | | for Health and | [place] [address] | | | | | [facility], [place] [address] | [phone] | | | | | [place], [place] | | | | | | [address] | | | | | | [phone] | | | +--------+ + + + [...]
--- OUTSIDE RECORDS SUMMARY | ~2020-01-10 | XMS | Encounter Summary ---
Demographics + + + | Address | [address] | | | [place] [address] | + + + | Home Phone [...] [place] | | | | | [address] | | + + + + + | Ronny Rene | ECON | Unknown | | + + + + + | Char Woodard | ECON | Unknown | | + + + + + Care Team Providers + +------+ + | Care Wireless Development Manager Name | Role | Phone [...] | | 2015 | | Center at [facility] [address] | [address] | (Omeprazole) | | | | [facility] | [facility], | | | | | [facility] and | [place] [address] | | | | | [facility], [place] [address] | [phone] | | | | | [place], [place] | | | | | | [address] | | | | | | [phone] | | | +--------+--------+ + + + [...]
--- OUTSIDE RECORDS SUMMARY | ~2020-01-10 | XMS | Encounter Summary ---
Demographics + + + | Address | [address] | | | [place] [address] | + + + | Home Phone [...] [place] | | | | | [address] | | + + + + + | Ronny Rene | ECON | Unknown | | + + + + + | Char Woodard | ECON | Unknown | | + + + + + Care Team Providers + +------+ + | Care Marriage And Family Teacher Name | Role | Phone | + +------+ + | Deondre Landis MD | PCP | | + +------+ + Encounter Details +--------+ + + + + | Date | Type | Department | Care Team | Description | +--------+ + + + + | 05/04/ | Abstract | Digestive Health | Vijay Akbar MD | | | 2018 | | [place] [address] [address] | [address] | | | | | [facility] | [address] [place], | | | | | [facility] and | [place] [address] | | | | | [place] [address] | [phone] | | | | | [place], [place] | | | | | | [address] | | | | | | [phone] | | | +--------+ + + + [...]
--- OUTSIDE RECORDS SUMMARY | ~2020-01-10 | XMS | Encounter Summary ---
Demographics + + + | Address | [address] | | | [place] [address] | + + + | Home Phone [...] [place] | | | | | [address] | | + + + + + | Ronny Rene | ECON | Unknown | + | + + + + + | Char Woodard | ECON | Unknown | | + + + + + Care Team Providers + +------+ + | Care Warehouse Consultant Name | Role | Phone | + +------+ + | Daivd Ferrera MD | PCP | | + [...] [id number] | | | | | | [facility] | | | | | | [place], [place] | | | | | | [address] | | | | | | [phone] | | | +--------+ + + + [...]
--- OUTSIDE RECORDS SUMMARY | ~2020-01-10 | XMS | Encounter Summary ---
Demographics + + + | Address | [address] | | | [place] [address] | + + + | Home Phone [...] | Author | [facility] | | | and Tobyana | + + + | Organization | [facility] | | | and [...] | | | | | [place] [address] | | + + + + + Care Team Providers + +------+ + | Care Winder Helper Name | Role | Phone | [...] + + | 11/04/ | Office | [facility] | Bernice Antonio, | Coronary artery | | 2018 | Visit | CARDIOLOGY [address] | [address] [place] | disease, angina | | | | [place], | [place], | presence | | | | [place] [address] | [place] [address] | unspecified, | | | | [phone] | [phone] | unspecified vessel | | | | | | or lesion type, | | | | | | unspecified whether | | | | | | beaver or | | | | | | [...] until 08/26/2017 when he was seen at [facility] for pain, and was admitted [...] RESULTS reviewed during visit today primarily from [facility]: LIPID Lab Results Component Value [...] He is in a class I of [place] [employer] functional class. Ther e is no fluid retention on physical examination. 2. Hypertension: A.Today his blood pressure is well controlled. 3.Hyperlipidemia A.He is on atorvastatin 80 mg a day.No recent lipid profile [facility] e 07/02/2015. Record shows that he is also on Pravachol. I think that it is most likely a typo. 4.Erectile dysfunction A. Today, patient mentioned that he has a difficulty to maintain hi s erection. Not addressed. 5.Esophageal cancer A. Patient underwent a esophagectomy at [facility] on 03/27/15. He was to ld [...] reviewed and edited this note. Debbie Sheppard [facility] 11/04/2017 I, Bernice Antonio MD, personally performed the services described in this documentation, as scribed in my presence and it is both accurate and complete. Debbie Sheppard, [facility] 8 10:26 Electronically signed by: Bernice Antonio MD [facility] 11/04/2017 Portions of this chart may have been created with [employer] voice recognition software. Occasi onal wrong-word or [...] 2019 | Visit | | MD Liliana Henrandez | | | | | | [place], | | | | | | [place] [address] | | | | | | [phone] | | | | | | | [...] whether | | | | | | beaver or | | | | | | [...] MD | | | | | | ([id number]) on 11/04/2017 | | | | | [...] or lesion | | type, unspecified whether beaver or transplanted heart - Primary | + + | Hypertension, unspecified type | + + documented in this encounter
--- OUTSIDE RECORDS SUMMARY | ~2020-01-10 | XMS | Encounter Summary ---
Demographics + + + | Address | [address] | | | [place] [address] | + + + | Home Phone [...] [place] | | | | | [address] | | + + + + + | Ronny Rene | ECON | Unknown | | + + + + + | Char Woodard | ECON | Unknown | | + + + + + Care Team Providers + +------+ + | Care Chemistry Teacher Name | Role | Phone | [...] To | | 2017 | | Center [place] [address] | [address] | Gastroenterology | | | | [facility] | [facility], | | | | | [facility] and | [place] [address] | | | | | [place] [address] | [phone] | | | | | [place], [place] | | | | | | [address] | | | | | | [phone] | | | +--------+ + + + [...]
--- OUTSIDE RECORDS SUMMARY | ~2020-01-10 | XMS | Encounter Summary ---
Demographics + + + | Address | [address] | | | [place] [address] | + + + | Home Phone | | + + + | Preferred Language | Unknown | + + + | Marital Status | | + + + | Adventism Affiliation | NON | + + + [...] + + + + + | Selena Jimneez | ECON | [address] | | | | | [place] | | | | | [address] | | + + + + + | Ronny Rene | ECON | Unknown | | + + + + + | Char Woodard | ECON | Unknown | | + + + + + Care Team Providers + +------+ + | Care Professional Poker Player Name | Role | Phone | + +------+ + | Deondre Landis MD | PCP | | + +------+ + Encounter Details +--------+ + + + + | Date | Type | Department | Care Team | Description | +--------+ + + + + | 04/11/ | Hospital | Radiology/Imaging | | | | 2014 | Encounter | Lab at [facility] [address] | | | | | | [facility] | | | | | | for Health and | | | | | | Healing, [address], | | | | | | 3rd Floor | | | | | | [place], [place] | | | | | | [address] | | | | | | [phone] | | | +--------+ + + + [...] | 1 | 04/11/20 | | | [id number] | tube route once | | | [...] | | | | | demonstrates 2 [place] | | | | | | drains [...] | | + +---------+ + + | [facility] DEPARTMENT OF | | | | | RADIOLOGY | | | | + +---------+ + + documented in this encounter Visit Diagnoses + + | Diagnosis | + + | Esophageal cancer (HCC) Malignant neoplasm of esophagus, unspecified site | + + documented in this encounter"
--- OUTSIDE RECORDS SUMMARY | ~2020-01-10 | XMS | Encounter Summary ---
Demographics + + + | Address | [address] | | | [place] [address] | + + + | Home Phone | | + + + | Preferred Language | Unknown | + + + | Marital Status | | + + + | Voodoo Affiliation | Unknown | + + + | Race | Unknown | + + + | Ethnic Group | Unknown | + + + Author + + + | Author | [facility] | | | and Tobyana | + + + | Organization | [facility] | | | and [...] | | | | | [place] [address] | | + + + + + Care Team Providers + +------+ + | Care Lacquer Spray Booth Operator Name | Role | Phone | [...] + + | 07/27/ | Telephone | [facility] | CiaranbetzaidaconcettaBernice, | Other (CHART NOTES | | 2012 | | [place] | [address] | FROM 07-25-13 FAXED) | | | | [place], | [place], | | | | | [place] [address] | [place] [address] | | | | | [phone] | [phone] | | | | | | | [...] | | | | | | [place] [address] | | | | | | [phone] | | | | | | | | +--------+---------+ + + + documented as of this encounter Visit Diagnoses Not on filedocumented in this encounter"
--- OUTSIDE RECORDS SUMMARY | ~2020-01-10 | XMS | Encounter Summary ---
Demographics + + + | Address | [address] | | | [place] [address] | + + + | Home Phone [...] [place] | | | | | [address] | | + + + + + | Ronny Rene | ECON | Unknown | | + + + + + | Char Woodard | ECON | Unknown | | + + + + + Care Team Providers + +------+ + | Care Co Founder And Ceo Name | Role | Phone | + +------+ + | Deondre Landis MD | PCP | | + +------+ + Encounter Details +--------+ + + + + | Date | Type | Department | Care Team | Description | +--------+ + + + + | 01/13/ | Abstract | Digestive Health | Rubin Lorenzo | | | 2014 | | [place] [address] | MD Doris [address] [facility] | | | | | [facility] | [facility] | | | | | [facility] and | [place], [place] | | | | | [facility] 2 | [address] | | | | | [place], [place] | [phone] | | | | | [address] | | | | | | [phone] | | | +--------+ + + + [...]
--- OUTSIDE RECORDS SUMMARY | ~2020-01-10 | XMS | Encounter Summary ---
Demographics + + + | Address | [address] | | | [place] [address] | + + + | Home Phone [...] [place] | | | | | [address] | | + + + + + | Ronny Rene | ECON | Unknown | | + + + + + | Char Woodard | ECON | Unknown | | + + + + + Care Team Providers + +------+ + | Care Associate Professor Of Sociology Name | Role | Phone | + +------+ + | Deondre Landis MD | PCP | | + +------+ + Encounter Details +--------+ + + + + | Date | Type | Department | Care Team | Description | +--------+ + + + + | 01/08/ | Abstract | Digestive Health | Rubin Lorenzo | | | 2014 | | [place] [address] | MD Doris [address] [facility] | | | | | [facility] | [facility] | | | | | [facility] and | [place], [place] | | | | | [facility] 2 | [address] | | | | | [place], [place] | [phone] | | | | | [address] | | | | | | [phone] | | | +--------+ + + + [...]
--- OUTSIDE RECORDS SUMMARY | ~2020-01-10 | XMS | Encounter Summary ---
Demographics + + + | Address | [address] | | | [place] [address] | + + + | Home Phone | | + + + | Preferred Language | Unknown | + + + | Marital Status | | + + + | Jew Affiliation | Unknown | + + + | Race | Unknown | + + + | Ethnic Group | Unknown | + + + Author + + + | Author | [facility] | | | and Tobyana | + + + | Organization | [facility] | | | [...] | | | | | [place] [address] | | + + + + + Care Team Providers + +------+ + | Care Electrical Lineman Name | Role | Phone | + [...] + + | 09/17/ | Office | [facility] | Paulo Antonio, | Coronary artery | | 2016 | Visit | CARDIOLOGY [address] | [address] | disease involving | | | | [address], | [place], | tuscarora coronary | | | | [place] [address] | [place] [address] | artery of tuscarora | | | | [phone] | [phone] | heart without angina | | | [...] envelope. Follow up appointment: 1 year Provider: Paulo Antonio MD Date: Check-In Time: documented in [...] RESULTS reviewed during visit today primarily from [facility]: LIPID Lab Results Component Value Date TRIG [...] 80 mg a day.No recent lipid profile [facility] e 07/02/2015. Record shows that he is also on Pravachol. I think that it is most likely a typo. 4.Erectile dysfunction A. Today, patient mentioned that he has a difficulty to maintain hi s erection. Not addressed. 5.Esophageal cancer A. Patient underwent a esophagectomy at [facility] on 03/27/15. He was to ld [...] reviewed and edited this note. Char Hermosillo, Scientific Database Curator 09/17/2016 I, Paulo Antonio MD, personally performed the services described in this documentation, as scribed in my presence and it is both accurate and complete. Char Hermosillo, Med Ass t 09/17/2016 13:38 Electronically signed by: Paulo Antonio MD [facility] 09/17/2016 Portions of this chart may have been created with [employer]ict[employer] voice recognition software. Occasi onal wrong-word or [...] | | | | | | [place] [address] | | | | | | [phone] | | | | | | | [...] the | | | | PST | tuscarora coronary | results section. | | | | | artery of tuscarora | | | | | | heart without angina | | | | | | pectoris | | + +--------+ + + + | CBC WITH | Routin | 09/17/2016 | Coronary artery | Results for this | | DIFFERENTIAL | e | 2:12 PM | disease involving | procedure are in the | | | | PST | tuscarora coronary | results section. | | | | | artery of tuscarora | | | | | | heart without angina | | | | | | pectoris | | + +--------+ + + + | TSH | Routin | 09/17/2016 | Coronary artery | Results for this | | | e | 2:12 PM | disease involving | procedure are in the | | | | PST | tuscarora coronary | results section. | | | | | artery of tuscarora | | | | | | heart without angina | | | | | | pectoris | | + +--------+ + + + | COMPREHENSIVE | Routin | 09/17/2016 | Coronary artery | Results for this | | METABOLIC PANEL | e | 2:12 PM | disease involving | procedure are in the | | | | PST | tuscarora coronary | results section. | | | | | artery of tuscarora | | | | | | heart without angina | | | | | | pectoris | | + +--------+ + + + | ECG 12 LEAD | Routin | 09/17/2016 | Coronary artery | Results for this | | | e | 1:25 PM | disease involving | procedure are in the | | | | PST | tuscarora coronary | results section. | | | | | artery of tuscarora | | | | | | heart [...] [address] | [place] | [phone] | | [facility] | | [address] | | | - LABORATORY | | [...] + | [address] | [address] | Vij[place] | [phone] | | [facility] | | [address] | | | - LABORATORY | | [...] mL/min/1.73m2 | [facility] | | | SAMOAN | RATE,ESTIMATED | | MEDICAL | | | | mL/min/1.97n7Ivmt than | | CENTER - | | [...] + | [facility] | [address] | [place] | [phone] | | [facility] | | [address] | | | - LABORATORY | | [...] + | [address] | [address] | [place] | [phone] | | 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
--- OUTSIDE RECORDS SUMMARY | ~2020-01-10 | XMS | Encounter Summary ---
Demographics + + + | Address | [address] | | | [place] [address] | + + + | Home Phone [...] [place] | | | | | [address] | | + + + + + | Ronny Rene | ECON | Unknown | | + + + + + | Char Woodard | ECON | Unknown | | + + + + + Care Team Providers + +------+ + | Care Kiln Mechanic Name | Role | Phone | [...] + + | 04/29/ | Hospital | [facility] [address] | Tito Bains MD | | | 2015 | Encounter | [address] | [address] | | | | | [address] [facility] | Latesha Soliz [place], | | | | | [place], [place] | [place] [address] | | | | | [address] | [phone] | | | | | [phone] | | | +--------+ + + + [...] pm, you can call the IRU at [phone]. For any other questions, please contact your [...] | 1 | 04/11/20 | | | [id number] | tube route once | | | [...] STAFF: Doris Isidro IR FELLOW: Michelle Duggan, #[id number] MEDICATIONS: Fentanyl 100 mcg IV Versed 1 [...] | | | | of a [address] | | | | | | [...] | | + +---------+ + + | [facility] DEPARTMENT OF | | | | [...]
--- OUTSIDE RECORDS SUMMARY | ~2020-01-10 | XMS | Encounter Summary ---
Demographics + + + | Address | [address] | | | [place] [address] | + + + | Home Phone | | + + + | Preferred Language | Unknown | + + + | Marital Status | | + + + | Holiness Affiliation | Unknown | + + + | Race | Unknown | + + + | Ethnic Group | Unknown | + + + Author + + + | Author | [facility] | | | and Tobyana | + + + | Organization | [facility] | | [...] | | | | | [place] [address] | | + + + + + Care Team Providers + +------+ + | Care Head Stock Operator Name | Role | Phone | [...] Lumbar | Love [place], | [address] | | | | | radiculopath | DRIER TENDER | [place], | | | | | y S/P | | [place] | | | | | lumbar | | [address] | | | | | spinal | | Phone: | | | | | fusion 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 | | | | | (degenerativ | | Fax: | | | | | e disc | | [phone] | | | | | disease), | [...] | | | | | unspecified | [address] | | | | | | | Phone: | | | | | | Arthrodesis | 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 Bridging osteophyte across this level [...] + | MISCELLANEOUS LAB | | | [phone] | + +---------+ + + | MISCELANIOUS LAB | | | [phone] | + +---------+ + + documented in [...]
--- OUTSIDE RECORDS SUMMARY | ~2020-01-10 | XMS | Clinical Summary ---
Demographics + + + | Address | [address] | | | [place] [address] | + + + | Home Phone [...] [place], [place] | | | | | [address] | | + + + + + | Ronny Rene | ECON | Unknown | | + + + + + | Char Woodard | ECON | Unknown | | + + + + + Care Team Providers + +------+ + | Care Multimedia Services Manager Name | Role | Phone | + +------+ + | David Ferrera MD | PCP | | + +------+ + Source Comments NATASHAADAN is fully live on both EpicCare Ambulatory and EpicCare InPatient.[facility] Allergies + + + + + + [...] 04/04/2015 | + + + | hx OK (myocardial infarction) | 04/04/2015 | + + [...] / Lot | + +------+--------+ +--------+--------+--------+ | [place] Ptfe 2.5cm X | | N/A: | BARD | | 11/16/ | [id number] | | 15cm - [id number]: Qty: | | Abdome | | | 2020 | | | 1 on 03/27/2015 by Raffy | | concetta | | | | /[id number] | | MD Vijay at [facility] | | | | | | 6 [...] | | | / | | at [facility] INPATIENT REV LOC | | | | | | | + +------+--------+ +--------+--------+--------+ + + | Description:ACUMED POLARIS | | TRAY | + + + +---+--------+--------+---+---+--------+ | 3.5x32mm NlscrewImplanted: | | Right: | ACUMED | | | 3025-3 | | Qty: 4 on 2019 by | | Upper | | | | 5032 / | | Glenn Siegel MD at [facility] | | Arm | | | | [...] | | / | | MD at [facility] REV LOC | | | | | [...] | | / | | MD at [facility] REV LOC | | | | | [...] | | | / | | at [facility] REV LOC | | | | | [...] | | | | | | | [address] | | + +--------+ +--------+ + +--------+ [...] | 1940 | [phone] | [place] [address] | | | hayley | | | [...]
--- OUTSIDE RECORDS SUMMARY | ~2020-01-10 | XMS | Encounter Summary ---
Demographics + + + | Address | [address] | | | [place] [address] | + + + | Home Phone [...] | Author | [facility] | | | and Tobyana | + + + | Organization | [facility] | | | and [...] | | | | | [place] [address] | | + + + + + Care Team Providers + +------+ + | Care Client Support Analyst Name | Role | Phone | [...] | | | | [place] | [address] | | | | | [address] | | | | | | [phone] | | | +--------+ + + + [...] | | | | | | [place] [address] | | | | | | [phone] | | | | | | | | +--------+---------+ + + + documented as of this encounter Visit Diagnoses Not on filedocumented in this encounter"
--- OUTSIDE RECORDS SUMMARY | ~2020-01-10 | XMS | Encounter Summary ---
Demographics + + + | Address | [address] | | | [place] [address] | + + + | Home Phone [...] [place] | | | | | [address] | | + + + + + | Ronny Rene | ECON | Unknown | | + + + + + | Char Woodard | ECON | Unknown | | + + + + + Care Team Providers + +------+ + | Care Electrician Telephone Name | Role | Phone | + [...] | | 2018 | | Center at [facility] [address] | [address] | Review | | | | [address] [facility] | [address] [place], [place] | | | | | for Health and | [address] | | | | | [facility], [facility] 2 | [phone] | | | | | [place], [place] | | | | | | [address] | | | | | | [phone] | | | +--------+ + + + [...]
--- OUTSIDE RECORDS SUMMARY | ~2020-01-10 | XMS | Encounter Summary ---
Demographics + + + | Address | [address] | | | [place] [address] | + + + | Home Phone [...] [place] | | | | | [address] | | + + + + + | Ronny Rene | ECON | Unknown | | + + + + + | Char Woodard | ECON | Unknown | | + + + + + Care Team Providers + +------+ + | Care Neck Cutter Name | Role | Phone | [...] | Abstract | Digestive Health | Vijay kAbar MD | Medical Records | | 2017 | | Center [place] [address] | [address] | Review | | | | [facility] | [facility], | | | | | [facility] and | [place] [address] | | | | | [facility] [place] [address] | [phone] | | | | | [place], [place] | | | | | | [address] | | | | | | [phone] | | | +--------+ + + + [...]
--- OUTSIDE RECORDS SUMMARY | ~2020-01-10 | XMS | Encounter Summary ---
Demographics + + + | Address | [address] | | | [place] [address] | + + + | Home Phone [...] [place] | | | | | [address] | | + + + + + | Ronny Rene | ECON | Unknown | | + + + + + | Char Woodard | ECON | Unknown | | + + + + + Care Team Providers + +------+ + | Care Machine Ii Trimmer Name | Role | Phone | + [...] | 2015 | Visit | Center at [facility] [address] | [address] | adenocarcinoma (HCC) | | | | [facility] | Latesha Soliz [place], | (Primary Dx); | | | | for Health and | [place] [address] | Anastomotic leak | | | | Healing, Building [address] | [phone] | following | | | | [place], [place] | | esophagectomy | | | | [address] | | | | | | [phone] | | | +--------+---------+ + + + [...] Ale Gipson MD - 05/09/2015 2[facility] 05/09/2015 Attending Physician: MD [...]
--- OUTSIDE RECORDS SUMMARY | ~2020-01-10 | XMS | Encounter Summary ---
Demographics + + + | Address | [address] | | | [place] [address] | + + + | Home Phone [...] [place] | | | | | [address] | | + + + + + | Ronny Rene | ECON | Unknown | | + + + + + | Char Woodard | ECON | Unknown | | + + + + + Care Team Providers + +------+ + | Care Cell Inspector Name | Role | Phone | + +------+ + | Deondre Landis MD | PCP | | + +------+ + Encounter Details +--------+ + + + + | Date | Type | Department | Care Team | Description | +--------+ + + + + | 09/14/ | Abstract | Digestive Health | Vijay Akbar MD | | | 2017 | | [place] [address] [address] | [address] | | | | | [facility] | [address] [place], | | | | | [facility] and | [place] [address] | | | | | [place] [address] | [phone] | | | | | [place], [place] | | | | | | [address] | | | | | | [phone] | | | +--------+ + + + [...]
--- OUTSIDE RECORDS SUMMARY | ~2020-01-10 | XMS | Encounter Summary ---
Demographics + + + | Address | [address] | | | [place] [address] | + + + | Home Phone [...] [place] | | | | | [address] | | + + + + + | Ronny Rene | ECON | Unknown | | + + + + + | Char Woodard | ECON | Unknown | | + + + + + Care Team Providers + +------+ + | Care Cotton Washer Name | Role | Phone | [...] | 2015 | Visit | Center at [place] [address] | [address] | following | | | | [address] [facility] | [facility], | esophagectomy | | | | for Health and | [place] [address] | (Primary Dx) | | | | [facility], [facility] 2 | [phone] | | | | | [place], [place] | | | | | | [address] | | | | | | [phone] | | | +--------+---------+ + + + [...] nswered. - ERIC FRANKS MD MIS Fellow [facility], Dept. of Surgery Pager [phone] STAFF: I personally interviewed the patient, performed [...] | | | | | FINDINGS: Initial psychology teacher | | | | | | image [...]
--- OUTSIDE RECORDS SUMMARY | ~2020-01-10 | XMS | Encounter Summary ---
Demographics + + + | Address | [address] | | | [place] [address] | + + + | Home Phone [...] [place] | | | | | [address] | | + + + + + | Ronny Rene | ECON | Unknown | | + + + + + | Char Woodard | ECON | Unknown | | + + + + + Care Team Providers + +------+ + | Care Manager Of Sustainability Name | Role | Phone | + [...] | | | | | | | [facility] | | | | | | | Health and | | | | | | | Healing, | | | | | | | Building [address] | | | | | | | [place], [place] | | | | | | | [address] | | | | | | | Phone: | | | | | | | [phone] | | | | | | | Fax: | | | | | | | [phone] | +--------+--------+ + + + + Encounter Details +--------+---------+ + + + | Date | Type | Department | Care Team | Description | +--------+---------+ + + + | 05/05/ | Office | Digestive Health | Vijay Akbar MD | History of | | 2018 | Visit | Center at [facility] [address] | [address] | esophageal cancer - | | | | [address] [facility] | Latesha Soliz [place], | [id number] (Primary Dx) | | | | for Health and | [place] [address] | | | | | [place] [address] | [phone] | | | | | [place], [place] | | | | | | [address] | | | | | | [phone] | | | +--------+---------+ + + + [...] at any time . Cristian Braxton, MS4 [employer] STAFF: A student assisted [...]
--- OUTSIDE RECORDS SUMMARY | 2020-01-10 11:26 | XMS ---
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 - Has Care Guidelines - [facility] Internal Medicine 01/17/2019-Current PHONE: Unknown Symone has no Care Guidelines for this patient. Care History Medical/Surgical 01/17/2019 [facility] - Patient is currently established with [facility]. If patient is seen in the ED during business hours. Please contact [facility] at [facility]. Care Recommendation: This patient has had 5 or more Emergency Department visits in the last 12 months.\T\nbsp; Patient requires education on the scope and purpose of the ED as an acute care provider not a Primary Care Provider and should not be utilized for chronic conditions.\T\nbsp; These are guidelines and the provider should exercise clinical judgment when providing care. E.D. VISIT COUNT (12 MO.) 3 [facility] TOTAL 3 NOTE: Visits indicate total known visits. ED/UCC VISIT TRACKING (12 MO.) 01/10/2020 11:[address] [facility] [place] TYPE: Emergency COMPLAINT: - FEVER, COUGH, VOMITING 01/16/2019 19:43 [facility] [place] TYPE: Emergency COMPLAINT: - R SHOULDER PAIN DIAGNOSES: - Other physeal fracture of upper end of humerus, right arm, in - Pain in right shoulder - Allergy status to other drugs, medicaments and biological sub - Other ocean transportation intermediary (current) drug therapy - Fall on same level from slipping, tripping and stumbling with - Essential (primary) hypertension 01/12/2019 13:[address] [facility] [place] TYPE: Emergency COMPLAINT: - FALL/LEFT SIDE PAIN DIAGNOSES: - Other fci (current) drug therapy - Fall on same level from slipping, tripping and stumbling with - Personal history of nicotine dependence - Personal history of malignant neoplasm of esophagus - Multiple fractures of ribs, left side, initial encounter for - Essential (primary) hypertension - Chest pain, unspecified - Allergy status to other drugs, medicaments and biological sub INPATIENT VISIT TRACKING (12 MO.) No inpatient visits to display in this time frame [email or web address]
--- NOTE | 2020-01-10 18:59 | EKG ---
[facility] [address] [place] [address] Signed Sinus tachycardia with frequent premature ventricular complexes Inferior infarct , age undetermined Cannot rule out Anterior infarct (cited on or before 28-AUG-2017) Abnormal ECG When compared with ECG of 31-AUG-2017 12:32, premature ventricular complexes are now present Inferior infarct is now present Confirmed by BLAIR ALFONSO MD ([id number]) on 01/10/2020 6:59:37 PM Electronically Signed By: BLAIR ALFONSO MD 01/10/20 1859 PATIENT NAME: NAN MEREDITH Electrocardiogram DATE OF : 44 PHYSICIAN: BLAIR ALFONSO MD REPORT #: [id number] REPORT IS CONFIDENTIAL AND NOT TO BE RELEASED WITHOUT AUTHORIZATION
== END 2020-01-10 14:20 | disposition home or self-care (01) ==
LOC: ED 11:23
DX: R50.9 Fever, unspecified (principal); I10 Essential (primary) hypertension; Z87.891 Personal history of nicotine dependence; Z79.899 Other long term (current) drug therapy
CPT/HCPCS: 71045; 80053; 81001; 83605; 85025; 87502; 93005; 93010; 96360; 96361; 99284-25; J7030